=== PATIENT | female | born 1950 | race Caucasian/White ===

== ENCOUNTER → 2018-02-07 09:39 | Outpatient (CLI) | payer MEDICARE, SELFPAY | PROVIDERS: PCP Family Medicine; Visit Provider Orthopaedic Surgery | DX: M17.12 Unilateral primary osteoarthritis, left knee (principal) | CPT/HCPCS: 20610; 99214; J7325 ==

== ENCOUNTER 2018-02-19 15:28 | Emergency (ER) | payer MEDICARE, SELFPAY ==
[2018-02-19] VITALS (18 sets, daily range): BP systolic 123–148; BP diastolic 64–78; PULSE 56–69; RESP 13–18; TEMP 38.1; O2SAT 88–98
--- NOTE | 2018-02-19 15:57 | W.ED.GENAD ---
Discharge Plan Discharge Details Chief Complaint: CVA/TIA Clinical Impression: Facial tic Primary Care Provider: Marixa Kurtz ED Provider: Saravanan Buckley Disposition Patient Disposition: HOME Condition: Improving Home Meds and New Rx's Prescriptions: Continue fluoxetine 40 MG capsule 40 mg PO DAILY RF: 0 ondansetron HCl 4 MG tablet 4 mg PO DAILY PRNRF: 0 omeprazole 40 MG capsule,delayed release(DR/EC) 40 mg PO DAILY RF: 0 amlodipine 10 MG tablet 10 mg PO DAILY RF: 0 trazodone 150 MG tablet 150 mg PO HS PRNRF: 0 dronabinol [Marinol] 10 MG capsule 10 mg PO QID RF: 0 polyethylene glycol 3350 [Miralax] 119 GM powder 15 ml PO DAILY PRNRF: 0 oxycodone [OxyContin] 40 MG tablet extended release 12 hr 40 mg PO BID RF: 0 oxycodone 15 mg Tablet 15 mg PO TID PRN (Reason: Pain) RF: 0 Discharge Instructions Additional Instructions: Home to rest this evening. Small, frequent sips of fluids to maintain hydration. Please follow-up with neurology as planned. Continue your regular medications. Medical Decision Making MDM Narrative Medical decision making narrative: 67-year-old female with rhythmic contractions of the left side of her face and no other focal neurologic findings. She has a temperature of 38, vital signs are otherwise reassuring. Appears to be isolated to the muscle contracture. Differential diagnosis would include electrolyte normality, dehydration, low-grade infection such as UTI. Patient was given small amount of parenteral fluid, parenteral magnesium, diphenhydramine, Ativan. Following these medications she had resolution of her symptoms. Diagnostics: CBC and comprehensive panel reassuring. Urine without evidence of infection. Given that patient did not have true fever, that she is essentially completely resolved, do not feel further workup is indicated. She has prestanding follow-up with neurology as an outpatient. She is stable and appropriate for outpatient management. Lab Data Lab results reviewed: Yes I reviewed the patient's lab results. ECG Data Attestation: I personally reviewed and interpreted this ECG (s) as follows: Interpretation: Normal sinus rhythm, rate of 65, QRS is narrow, there is no ST segment HPI - General Adult General Date/Time Provider Initiated Documentation: 02/19/18 15:38. Limitations to Documentation: no limitations. Information obtained by: patient and family. History of Present Illness 67 year old F presents to the emergency department with the chief complaint of Facial tic, described as mild, Quality is described as other, and is localized to the face. and it has been intermittent. No relieving factors improve symptom(s), No exacerbating factors reported . Patient did receive the following treatments prior to arrival, none HPI Narrative: 67-year-old female presents from home with family 4 hours of the gradual onset of facial tremor. She states that she has had rhythmic left facial tic similar to previous. Denies any recent injury. She has not had a headache, fever, chills. There is no exacerbating or ameliorating factors. States this happened once previously and responded to Ativan. She has pre-standing neurology follow-up next month Related Data Home Medications Medication Instructions Recorded Confirmed amlodipine 10 mg PO DAILY 05/19/14 02/19/18 dronabinol [Marinol] 10 mg PO QID 05/19/14 02/19/18 fluoxetine 40 mg PO DAILY 05/19/14 02/19/18 omeprazole 40 mg PO DAILY 05/19/14 02/19/18 ondansetron HCl 4 mg PO DAILY PRN 05/19/14 02/19/18 polyethylene glycol 3350 [Miralax] 15 ml PO DAILY PRN 05/19/14 02/19/18 trazodone 150 mg PO HS PRN 05/19/14 02/19/18 oxycodone [OxyContin] 40 mg PO BID 05/29/15 02/19/18 oxycodone 15 mg PO TID PRN 02/19/18 02/19/18 Allergies Allergy/AdvReac Type Severity Reaction Status Date / Time morphine AdvReac Intermediate Psychosis Unverified 02/19/18 15:44 baclofen AdvReac Unknown Unverified 02/19/18 15:44 chlorthalidone AdvReac Unknown Unverified 02/19/18 15:44 codeine AdvReac Unknown Unverified 02/19/18 15:44 dextromethorphan AdvReac Unknown Unverified 02/19/18 15:44 gabapentin [From Neurontin] AdvReac Unknown Unverified 02/19/18 15:44 hydrochlorothiazide AdvReac Unknown Unverified 02/19/18 15:44 pregabalin AdvReac Unknown Dopey Unverified 02/19/18 15:44 General Stated Complaint: CVA/TIA LOLITA: 2 Review of Systems Review of Systems 8 systems reviewed, otherwise negative [facility] Social History Smoking/Tobacco Use Status: Never Exam Const General: cooperative, healthy appearing, comfortable and no acute distress Nutritional Appearance: average body habitus Orientation: awake and oriented x3 Other: Left sided facial tic with rhythmic contracture of muscles from chin to mosque. HENMT Head: normal to inspection, normocephalic and atraumatic Ears: hearing grossly normal bilaterally and external ears normal Eyes General: appearance normal, both eyes and all related structures Eyelids: eyelids normal Conjunctivae: conjunctivae normal Pupils: PERRL EOM: EOM intact bilaterally Neck Neck: normal visual inspection, full ROM and no lymphadenopathy Chest Chest: normal inspection of the chest Resp Effort & Inspection: normal respiratory effort and able to speak in complete sentences Auscultation: clear to auscultation bilaterally Cardio Rate: regular rate Rhythm: regular rhythm Skin General skin exam: no rashes or lesions noted Neuro General: alert, awake, oriented x3 and other (Rhythmic, intermittent muscular contraction of the left side of) Cranial Nerves: CN's II-XI intact bilaterally Cognition: normal cognition Speech: speech normal Extrem General: normal to inspection Psych Appearance: grossly normal Mental Status: mental status grossly normal Speech and Movement: speech and movement normal Mood: congruent mood Affect: normal affect Course Vital Signs Temperature 38.1 C H 02/19/18 15:37 Temperature 38.1 C H 02/19/18 15:37
--- NOTE | 2018-02-19 16:02 | ED.GENADUL_ITS ---
Discharge Plan Discharge Details Chief Complaint: CVA/TIA Clinical Impression: Facial tic Primary Care Provider: Marixa Kurtz ED Provider: Saravanan Buckley Disposition Patient Disposition: HOME Condition: Improving Home Meds and New Rx's Prescriptions: Continue fluoxetine 40 MG capsule 40 mg PO DAILY RF: 0 ondansetron HCl 4 MG tablet 4 mg PO DAILY PRNRF: 0 omeprazole 40 MG capsule,delayed release(DR/EC) 40 mg PO DAILY RF: 0 amlodipine 10 MG tablet 10 mg PO DAILY RF: 0 trazodone 150 MG tablet 150 mg PO HS PRNRF: 0 dronabinol [Marinol] 10 MG capsule 10 mg PO QID RF: 0 polyethylene glycol 3350 [Miralax] 119 GM powder 15 ml PO DAILY PRNRF: 0 oxycodone [OxyContin] 40 MG tablet extended release 12 hr 40 mg PO BID RF: 0 oxycodone 15 mg Tablet 15 mg PO TID PRN (Reason: Pain) RF: 0 Discharge Instructions Additional Instructions: Home to rest this evening. Small, frequent sips of fluids to maintain hydration. Please follow-up with neurology as planned. Continue your regular medications. Medical Decision Making MDM Narrative Medical decision making narrative: 67-year-old female with rhythmic contractions of the left side of her face and no other focal neurologic findings. She has a temperature of 38, vital signs are otherwise reassuring. Appears to be isolated to the muscle contracture. Differential diagnosis would include electrolyte normality, dehydration, low-grade infection such as UTI. Patient was given small amount of parenteral fluid, parenteral magnesium, diphenhydramine, Ativan. Following these medications she had resolution of her symptoms. Diagnostics: CBC and comprehensive panel reassuring. Urine without evidence of infection. Given that patient did not have true fever, that she is essentially completely resolved, do not feel further workup is indicated. She has prestanding follow- up with neurology as an outpatient. She is stable and appropriate for outpatient management. Lab Data Lab results reviewed: Yes I reviewed the patient's lab results. ECG Data Attestation: I personally reviewed and interpreted this ECG (s) as follows: Interpretation: Normal sinus rhythm, rate of 65, QRS is narrow, there is no ST segment HPI - General Adult General Date/Time Provider Initiated Documentation: 02/19/18 15:38 . Limitations to Documentation: no limitations . Information obtained by: patient and family . History of Present Illness 67 year old F presents to the emergency department with the chief complaint of Facial tic, described as mild, Quality is described as other, and is localized to the face. and it has been intermittent. No relieving factors improve symptom(s), No exacerbating factors reported . Patient did receive the following treatments prior to arrival, none HPI Narrative: 67-year-old female presents from home with family 4 hours of the gradual onset of facial tremor. She states that she has had rhythmic left facial tic similar to previous. Denies any recent injury. She has not had a headache, fever, chills. There is no exacerbating or ameliorating factors. States this happened once previously and responded to Ativan. She has pre- standing neurology follow-up next month Related Data Home Medications Medication Instructions Recorded Confirmed amlodipine 10 mg PO DAILY 05/19/14 02/19/18 dronabinol [Marinol] 10 mg PO QID 05/19/14 02/19/18 fluoxetine 40 mg PO DAILY 05/19/14 02/19/18 omeprazole 40 mg PO DAILY 05/19/14 02/19/18 ondansetron HCl 4 mg PO DAILY PRN 05/19/14 02/19/18 polyethylene glycol 3350 [Miralax] 15 ml PO DAILY PRN 05/19/14 02/19/18 trazodone 150 mg PO HS PRN 05/19/14 02/19/18 oxycodone [OxyContin] 40 mg PO BID 05/29/15 02/19/18 oxycodone 15 mg PO TID PRN 02/19/18 02/19/18 Allergies Allergy/AdvReac Type Severity Reaction Status Date / Time morphine AdvReac Intermediate Psychosis Unverified 02/19/18 15:44 baclofen AdvReac Unknown Unverified 02/19/18 15:44 chlorthalidone AdvReac Unknown Unverified 02/19/18 15:44 codeine AdvReac Unknown Unverified 02/19/18 15:44 dextromethorphan AdvReac Unknown Unverified 02/19/18 15:44 gabapentin [From Neurontin] AdvReac Unknown Unverified 02/19/18 15:44 hydrochlorothiazide AdvReac Unknown Unverified 02/19/18 15:44 pregabalin AdvReac Unknown Dopey Unverified 02/19/18 15:44 General Stated Complaint: CVA/TIA LOLITA: 2 Review of Systems Review of Systems 8 systems reviewed, otherwise negative [facility] Social History Smoking/Tobacco Use Status: Never Exam Const General: cooperative, healthy appearing, comfortable and no acute distress Nutritional Appearance: average body habitus Orientation: awake and oriented x3 Other: Left sided facial tic with rhythmic contracture of muscles from chin to mandaen. HENMT Head: normal to inspection, normocephalic and atraumatic Ears: hearing grossly normal bilaterally and external ears normal Eyes General: appearance normal, both eyes and all related structures Eyelids: eyelids normal Conjunctivae: conjunctivae normal Pupils: PERRL EOM: EOM intact bilaterally Neck Neck: normal visual inspection, full ROM and no lymphadenopathy Chest Chest: normal inspection of the chest Resp Effort & Inspection: normal respiratory effort and able to speak in complete sentences Auscultation: clear to auscultation bilaterally Cardio Rate: regular rate Rhythm: regular rhythm Skin General skin exam: no rashes or lesions noted Neuro General: alert, awake, oriented x3 and other (Rhythmic, intermittent muscular contraction of the left side of) Cranial Nerves: CN's II-XI intact bilaterally Cognition: normal cognition Speech: speech normal Extrem General: normal to inspection Psych Appearance: grossly normal Mental Status: mental status grossly normal Speech and Movement: speech and movement normal Mood: congruent mood Affect: normal affect Course Vital Signs Temperature 38.1 C H 02/19/18 15:37 Temperature 38.1 C H 02/19/18 15:37
[2018-02-19] MEDS: LORazepam 2 MG/ML VIAL 0.5 MG IVP (16:23)
[2018-02-19] MEDS: diphenhydrAMINE 50 MG/ML VIAL 12.5 MG IVP (16:24)
[2018-02-19] MEDS: MAGNESIUM SULFATE 1 GM/100 ML BAG IVPB (16:24)
[2018-02-19 17:12] LABS: Abs Immature Grans 0.02 k/cumm (0.0-0.09); Absolute Basophil Count 0.07 k/cumm (0.0-0.2); Absolute Eosinophil Count 0.06 k/cumm (0.0-0.7); Absolute Monocyte Count 0.82 k/cumm (0.11-0.7); Absolute Neutrophil Count 5.21 k/cumm (1.2-6.7); Basophils % 0.9; Eosinophils % 0.8; HCT 32.5 % (36.0-46.0); HGB 10.5 g/dL (12.0-15.5); Immature Grans % 0.3; Lymphocytes % 20.6; Mean Corp. HGB Concentration 32.3 g/dL (32.0-36.0); Mean Corpuscular Hemoglobin 28.9 pg (27.0-33.0); Mean Corpuscular Volume 89.5 fL (80-95); Mean Platelet Volume 9.6 fL (8.0-11.0); Monocytes % 10.5; Neutrophils % 66.9; Platelet Count 304 x1000/uL (130-400); RBC 3.63 m/cumm (4.00-5.20); RBC Distribution Width 14.7 % (11.7-14.6); White Blood Cell Count 7.78 k/cumm (4.4-10.8)
[2018-02-19 17:17] LABS: Bilirubin Negative (Negative); Blood Trace-lysed (Negative); Clarity Sl Cloudy; Glucose Negative (Negative); Ketones Negative (Negative); Leukocyte Esterase Negative (Negative); Nitrite Negative (Negative); Specific Gravity 1.015 (1.005-1.025); Urobilinogen 0.2 EU/dL (Up TO 0.2); pH 5.5 (5-8)
[2018-02-19 17:17] LABS: ALT 14 U/L (12-78); AST 13 U/L (15-37); Albumin 3.4 g/dL (3.4-5.0); Alkaline Phosphatase 75 U/L (46-116); Anion Gap 2.7 mmol/L (3-11); BUN 24 mg/dL (7-18); Bilirubin, Total 0.2 mg/dL (0.2-1.0); CO2 31.3 mmol/L (21.0-32.0); CREATININE 1.17 mg/dL (0.55-1.02); Calcium 8.8 mg/dL (8.5-10.1); Chloride 105 mmol/L (98-107); Estimated GFR 45.86 (mL/min/1.73m2); Glucose 95 mg/dL (70-100); Magnesium 1.8 mg/dL (1.8-2.4); Potassium 3.9 mmol/L (3.5-5.1); Sodium 139 mmol/L (136-145)
[2018-02-19 17:33] LABS: Bacteria Negative HPF (Negative); Epithelial Cells Moderate HPF (Negative); Other Cells Few Transitional (Negative); RBC 0-2 (0-2); WBC 0-2 HPF (0-5)
[2018-02-19 17:34] LABS: C & S Indicated? No; Casts Negative LPF (Negative); Crystals Few Amorphous HPF (Negative); Mucus Negative (Negative)
== END 2018-02-19 17:55 | disposition home or self-care (01) ==
LOC: ER 17:44
PROVIDERS: Emergency Provider Emergency Medicine; PCP Family Medicine
DX: F95.9 Tic disorder, unspecified (principal); E83.42 Hypomagnesemia
CPT/HCPCS: 36415; 80053; 93005; 96365; 96375; 99284; 81003; 81015; 83735; 85025; 93010; 99283; J1200; J2060; J3475

== ENCOUNTER → 2018-03-21 13:39 | Outpatient (BNVA) | payer MEDICARE, SELFPAY | PROVIDERS: Visit Provider Orthopaedic Surgery | DX: M17.12 Unilateral primary osteoarthritis, left knee (principal) | CPT/HCPCS: 99211; 99213 ==

== ENCOUNTER → 2018-08-08 13:25 | Outpatient (BNVA) | payer MEDICARE, SELFPAY | PROVIDERS: PCP Family Medicine; Referring Provider Family Medicine; Visit Provider Orthopaedic Surgery | DX: M17.11 Unilateral primary osteoarthritis, right knee (principal); M17.12 Unilateral primary osteoarthritis, left knee | CPT/HCPCS: 20610; 99211; 99213; J7325 ==

== ENCOUNTER → 2019-02-11 10:51 | Outpatient (BNVA) | payer MEDICARE, SELFPAY | PROVIDERS: PCP Family Medicine; Referring Provider Family Medicine; Visit Provider Orthopaedic Surgery | DX: M17.11 Unilateral primary osteoarthritis, right knee (principal); M17.12 Unilateral primary osteoarthritis, left knee | CPT/HCPCS: 20610; 99211; 99213; J7325 ==

== ENCOUNTER 2019-03-26 01:26 | Outpatient (CLI) | payer MEDICARE, SELFPAY ==
--- NOTE | 2019-03-26 15:32 | DI.MAMMO_ITS ---
EXAM: MAMMO SCREENING CLINICAL HISTORY: SCREENING, Z12.31. TECHNIQUE: Mammograms were interpreted according to the usual protocol including computer analysis w Prescreen system, tomosynthesis and C-view imaging. FINDINGS: The breasts are of moderate density with fairly symmetrical distribution of fibroglandular tissue. No dominant mass or clumped microcalcification is identified in either breast. Current examination is c ompared with previous examinations including April 2017 and there has been no gross interval velazco e in appearance in comparison with previous studies. IMPRESSION: No specific evidence of malignancy at this time. Routine screening examinations are suggested at year ly intervals due to the family history of breast carcinoma. Category 1. Breast density, category B. BI-RADS Cat 1 - Negative. Breast Density - Category B - Scattered areas of fibroglandular density.
== END 2019-03-26 01:46 ==
PROVIDERS: PCP Family Medicine; Visit Provider Family Medicine
DX: Z12.31 Encounter for screening mammogram for malignant neoplasm of breast (principal); Z80.3 Family history of malignant neoplasm of breast
CPT/HCPCS: 77063; 77067

== ENCOUNTER 2019-07-10 17:04 | Outpatient (REF) | payer MEDICARE, SELFPAY ==
[2019-07-10 21:07] LABS: Abs Immature Grans 0.01 k/cumm (0.0-0.09); Absolute Basophil Count 0.05 k/cumm (0.0-0.2); Absolute Eosinophil Count 0.08 k/cumm (0.0-0.7); Absolute Lymphocyte Count 1.07 k/cumm (1.2-3.4); Absolute Monocyte Count 0.58 k/cumm (0.11-0.7); Absolute Neutrophil Count 2.95 k/cumm (1.2-6.7); Basophils % 1.1; Eosinophils % 1.7; HCT 35.2 % (36.0-46.0); HGB 11.2 g/dL (12.0-15.5); Immature Grans % 0.2 %; Lymphocytes % 22.6; Mean Corp. HGB Concentration 31.8 g/dL (32.0-36.0); Mean Corpuscular Hemoglobin 27.9 pg (27.0-33.0); Mean Corpuscular Volume 87.8 fL (80-95); Mean Platelet Volume 10.2 fL (8.0-11.0); Monocytes % 12.2; Neutrophils % 62.2; Platelet Count 354 x1000/uL (130-400); RBC 4.01 m/cumm (4.00-5.20); RBC Distribution Width 14.1 % (11.7-14.6); White Blood Cell Count 4.74 k/cumm (4.4-10.8)
[2019-07-10 21:28] LABS: ALT 12 U/L (14-59); AST 12 U/L (15-37); Albumin 3.5 g/dL (3.4-5.0); Alkaline Phosphatase 62 U/L (46-116); Anion Gap 10.1 mmol/L (3-11); BUN 17 mg/dL (7-18); Bilirubin, Total 0.3 mg/dL (0.2-1.0); CO2 27.9 mmol/L (21.0-32.0); CREATININE 1.23 mg/dL (0.55-1.02); Calcium 8.9 mg/dL (8.5-10.1); Chloride 104 mmol/L (98-107); Estimated GFR 43.17 (mL/min/1.73m2); Glucose 135 mg/dL (74-106); Potassium 4.1 mmol/L (3.5-5.1); Sodium 142 mmol/L (136-145); Total Protein 7.3 g/dL (6.4-8.2)
== END 2019-07-10 17:24 ==
LOC: NCHCN 17:04
PROVIDERS: PCP Family Medicine; Visit Provider Family Medicine
DX: R19.02 Left upper quadrant abdominal swelling, mass and lump (principal)
CPT/HCPCS: 80053; 85025

== ENCOUNTER 2019-08-04 01:59 | Outpatient (CLI) | payer MEDICARE, SELFPAY ==
[2019-08-04] MEDS: Breeza Beverage 473 ML BTL PO ×2 (11:36→11:37)
[2019-08-04] MEDS: Omnipaque 350 MG/ML 50 ML BTL PO (11:36)
[2019-08-04 12:17] LABS: CREATININE 1.18 mg/dL (0.55-1.02); Estimated GFR 45.28 (mL/min/1.73m2)
[2019-08-04] MEDS: Omnipaque 350 MG/ML 100 ML BTL IJ (13:09)
[2019-08-04] MEDS: Normal Saline - Diluent 50 ML VIAL IV (13:14)
[2019-08-04] MEDS: Normal Saline Flush 10 ML SYR IVP (13:15)
--- NOTE | 2019-08-04 13:19 | DI.CT_ITS ---
EXAM: CT ABDOMEN PELVIS W CLINICAL HISTORY: LUQ ABD MASS, R19.02 TECHNIQUE: Imaging Protocol: Axial computed tomography images with coronal and sagittal reformatted images were created and reviewed CONTRAST MATERIAL: Intravenous: Omnipaque 350 Contrast volume:100 mL Oral: Yes COMPARISON: No exams were available for comparison FINDINGS: ABDOMEN: Lung Bases: Dependent atelectasis. Liver: Normal density. Tiny hypodensity in the dome of the liver. It is too small for further charac terization but likely reflects a small cyst. Portal, Superior Mesenteric, and Splenic Veins: Unremarkable. Gallbladder and Biliary Tract: Status post cholecystectomy. Intra and extrahepatic biliary ductal di latation. This likely reflects post cholecystectomy changes. Pancreas: Normal density, no abnormal calcifications or inflammatory process. Spleen: Normal. Adrenals: No masses seen. Kidneys: Normal size, contour and axis. No radiodense stones or obstructive uropathy. Tiny hypodensit ies in the left kidney. They are too small for further characterization but likely reflect small cys ts. No suspicious renal mass. Abdominal Aorta: Abdominal portion non-dilated. Atherosclerosis. Bowel: No obstruction or bowel wall thickening. There is a hiatal hernia present. There is thickeni ng of the wall of the bowel in the hernia. This is nonspecific. Upper GI or upper endoscopy should be considered for further evaluation. No evidence of acute appendicitis. Large amount of stool thro ughout the colon suggesting constipation. Colonic diverticulosis but no evidence of acute diverticul itis. Peritoneal Cavity: No ascites, collection or mesenteric inflammatory response. Lymph Nodes: Within normal limits. Bones: Degenerative changes. Left convex scoliosis of the lumbar spine. Soft Tissues: Unremarkable. PELVIS: Bladder: Symmetric distention, no gross wall thickening. Reproductive Organs: Unremarkable as visualized. Lymph Nodes: Within normal limits. Bones: Degenerative changes. IMPRESSION: 1. No evidence of abdominal or pelvic mass. 2. Intra and extrahepatic biliary ductal dilatation. This likely reflects post cholecystectomy velazco e. 3. Hiatal hernia. Thickening of the wall of the herniated stomach. An inflammatory/infectious proce ss should be excluded. Neoplasm cannot be excluded. Upper endoscopy or upper GI should be considere d for further evaluation. 4. Colonic diverticulosis but no evidence of acute diverticulitis. DATA REPOSITORY: All CT scans at this facility are submitted to the National Radiology Data Registry (NRDR) Dose Index Registry (DIR) with the [employer] (A[employer]). RADIATION OPTIMIZATION: All CT scans at this facility use at least one of these dose optimization te chniques: automated exposure control; mA and/or kV adjustment per patient size (includes targeted exa ms where dose is matched to clinical indication); or iterative reconstruction.
== END 2019-08-04 02:19 ==
PROVIDERS: PCP Family Medicine; Visit Provider Family Medicine
DX: R19.02 Left upper quadrant abdominal swelling, mass and lump (principal); J98.11 Atelectasis; K76.89 Other specified diseases of liver; N28.1 Cyst of kidney, acquired; K44.9 Diaphragmatic hernia without obstruction or gangrene; Z90.49 Acquired absence of other specified parts of digestive tract; Z13.89 Encounter for screening for other disorder
CPT/HCPCS: 74177; 82565; J3490; Q9967

== ENCOUNTER 2020-01-05 17:43 | Emergency (ER) | payer MEDICARE, SELFPAY ==
[2020-01-05] VITALS (19 sets, daily range): BP systolic 142–167; BP diastolic 64–98; PULSE 50–79; RESP 10–20; TEMP 36.9–37; O2SAT 95–100
[2020-01-05] MEDS: diphenhydrAMINE 50 MG/ML VIAL 12.5 MG IVP (18:16)
[2020-01-05] MEDS: LORazepam 2 MG/ML VIAL 0.5 MG IVP (18:19)
[2020-01-05] MEDS: MAGNESIUM SULFATE 1 GM/100 ML BAG IVPB (18:19)
[2020-01-05] MEDS: Normal Saline 500 ML IV (18:19)
[2020-01-05 18:32] LABS: Abs Immature Grans 0.03 k/cumm (0.0-0.09); Absolute Basophil Count 0.03 k/cumm (0.0-0.2); Absolute Eosinophil Count 0.09 k/cumm (0.0-0.7); Absolute Lymphocyte Count 1.74 k/cumm (1.2-3.4); Absolute Monocyte Count 0.67 k/cumm (0.11-0.7); Absolute Neutrophil Count 5.45 k/cumm (1.2-6.7); Basophils % 0.4; Eosinophils % 1.1; HCT 32.6 % (36.0-46.0); HGB 10.6 g/dL (12.0-15.5); Immature Grans % 0.4 %; Lymphocytes % 21.7; Mean Corp. HGB Concentration 32.5 g/dL (32.0-36.0); Mean Corpuscular Hemoglobin 28.6 pg (27.0-33.0); Mean Corpuscular Volume 88.1 fL (80-95); Mean Platelet Volume 9.4 fL (8.0-11.0); Monocytes % 8.4; Platelet Count 355 x1000/uL (130-400); RBC Distribution Width 13.8 % (11.7-14.6); White Blood Cell Count 8.01 k/cumm (4.4-10.8)
--- NOTE | 2020-01-05 18:37 | W.ED.GENAD ---
Discharge Plan Disposition Patient Disposition: HOME Condition: Good Discharge Details Chief Complaint: Seizure Clinical Impression: Tic douloureux Primary Care Provider: Marixa Kurtz ED Provider: Los Carter Home Meds and New Rx's Prescriptions: New lorazepam [Ativan] 1 mg tablet 1 mg PO DAILY PRNQty: 3 RF: 0 Continued fluoxetine 40 MG capsule 80 mg PO DAILY RF: 0 ondansetron HCl 4 MG tablet 4 mg PO DAILY PRNRF: 0 omeprazole 40 MG capsule,delayed release(DR/EC) 40 mg PO DAILY RF: 0 amlodipine 10 MG tablet 10 mg PO DAILY RF: 0 trazodone 150 MG tablet 150 mg PO HS RF: 0 polyethylene glycol 3350 [Miralax] 119 GM powder 15 ml PO DAILY PRNRF: 0 OxyContin 40 MG tablet extended release 12 hr 40 mg PO BID RF: 0 oxycodone 15 mg Tablet 15 mg PO TID PRN (Reason: Pain) RF: 0 dronabinol 5 mg capsule 5 mg PO .UP TO 5 TABS A DAY RF: 0 aspirin [Aspirin Low Dose] 81 mg Tablet,Delayed Release (Dr/Ec) 81 mg PO DAILY RF: 0 vitamin B complex Tablet 1 tab PO DAILY RF: 0 oxybutynin chloride 5 mg tablet 5 mg PO DAILY RF: 0 lactulose 10 gram/15 mL solution 15 ml PO DAILY PRN PRNRF: 0 cholecalciferol (vitamin D3) [Vitamin D3] 25 mcg (1,000 unit) Tablet 25 mcg PO DAILY RF: 0 Narcan 4 mg/actuation [place],Non-Aerosol 4 mg INTRANASAL Q3M PRNRF: 0 Discharge Instructions Instructions: Tic Disorder (ED) Additional Instructions: At this time your symptoms have resolved with the Ativan. Please take this only as necessary for severe symptoms. Please follow-up closely with your neurologist at [facility]. If you notice any worsening of your symptoms, or any new symptoms such as vomiting, diarrhea, fever, chills, shortness of breath, chest pain, numbness, weakness, or fainting , please return immediately to the emergency department for reevaluation. Please follow up with your primary care provider as soon as possible for reassessment and reevaluation. As always, it was a pleasure participating in your medical care today. Referrals: Marixa Kurtz [Primary Care Provider] - Discharge Data Discharge Date/Time-TO BE ENTERED AT DEPARTURE: 01/05/20 21:15 Medical Decision Making <Tahmina Bell MD - Last Filed: 01/14/20 10:04> Tegan Ashton is a 69-year-old woman who presented to the emergency department for what she describes a seizure activity since yesterday morning. On exam patient is well and nontoxic-appearing. She has what appears to be facial muscle twitching that is worse during speech. Occurs intermittently last for 5 to 10 seconds at a time. Otherwise nonfocal neurologic exam. Concern for metabolic/electrolyte derangement causing muscle twitching, other muscle fasciculation. Doubt partial seizure activity. Exam/history is not consistent with meningitis, sepsis, cerebrovascular accident, other acute emergent intracranial process including life-threatening seizure. Records reviewed from [facility] with most recent neurology note 2017, noting patient with normal EEG at that time, note states doubt seizure activity. Neurology note from Dr. Liz does state that if patient were to present to [facility] again with the symptoms, he would like to have her transferred to the [facility] emergency department so that symptoms could be witnessed firsthand as they were not witnessed in his office. Plan for screening labs, IV medication as was given successfully in the past, neurology consultation with [facility]. I discussed with patient that neurology had requested she be sent to the emergency department for evaluation in prior records, and she stated that she did not want to be transferred or to go to the [facility] emergency department at this time. She requested that I send a video to neurology at [facility]. I did discuss with patient that I had no mechanism to do this other than to use my personal phone, and discussed privacy concerns taking a recording in this manner. Patient consented to this video taken and being sent to neurology. Approximately 15-second video was taken. I did send this to neurology at [facility], who stated that video transmission was of poor quality and could not be used for further evaluation. Video was then deleted from my personal phone. Patient again declines transfer to [facility], states that she is feeling significantly improved after medication, however she does state that her tic is still present and would like symptoms to be fully resolved before discharge. On reassessment she does have continued initial tic, somewhat improved from her initial presentation. Plan for 1 mg IV Ativan, reassessment. Patient was signed out to Dr. Carter at time of shift change with reassessment pending. Medical Records Medical records reviewed: Yes I reviewed the patient's medical records. Lab Data Lab results reviewed: Yes I reviewed the patient's lab results. Labs: Laboratory Tests Range/Units 01/05/20 01/05/20 01/05/20 18:00 18:00 18:00 WBC (4.4-10.8) k/cumm 8.01 RBC (4.00-5.20) m/cumm 3.70 L Hgb (12.0-15.5) g/dL 10.6 L Hct (36.0-46.0) % 32.6 L MCV (80-95) fL 88.1 MCH (27.0-33.0) pg 28.6 MCHC (32.0-36.0) g/dL 32.5 RDW (11.7-14.6) % 13.8 Plt Count (130-400) x1000/uL 355 MPV (8.0-11.0) fL 9.4 Immature Gran % % 0.4 Neutrophils % 68.0 Lymphocytes % 21.7 Monocytes % 8.4 Eosinophils % 1.1 Basophils % 0.4 Absolute Neutrophils (1.2-6.7) k/cumm 5.45 Absolute Lymphocytes (1.2-3.4) k/cumm 1.74 Absolute Monocytes (0.11-0.7) k/cumm 0.67 Absolute Eosinophils (0.0-0.7) k/cumm 0.09 Absolute Basophils (0.0-0.2) k/cumm 0.03 Sodium (136-145) mmol/L 141 Potassium (3.5-5.1) mmol/L 4.0 Chloride (98-107) mmol/L 103 Carbon Dioxide (21.0-32.0) mmol/L 28.2 Anion Gap (3-11) mmol/L 9.8 BUN (7-18) mg/dL 29 H Creatinine (0.55-1.02) mg/dL 1.23 H Estimated GFR/1.73 m2 (mL/min/1.73m2) 43.04 Glucose (74-106) mg/dL 103 Calcium (8.5-10.1) mg/dL 9.0 Magnesium (1.8-2.4) mg/dL 2.0 Total Bilirubin (0.2-1.0) mg/dL 0.3 AST (15-37) U/L 16 ALT (14-59) U/L 18 Alkaline Phosphatase (46-116) U/L 81 Total Protein (6.4-8.2) g/dL 8.0 Albumin (3.4-5.0) g/dL 3.3 L TSH (0.36-3.74) uIU/mL 1.80 <Los Carter DO - Last Filed: 01/05/20 21:07> Case was signed out to me by my colleague Dr. Tahmina Bell. Please refer to her HPI, physical exam assessment and plan. Case is signed out pending reassessment after Ativan administration. Upon reassessment the patient has complete resolution of her symptoms, she feels well and would like to go home. I do feel that it is reasonable to send her home with a small dose/prescription of Ativan to help her if her symptoms recur. She certainly does need outpatient follow-up with neurology. Encouraged her prompt reassessment with her neurologist at [facility]. Discussed red flags which to return. Repeat neurologic exam shows no focal neurologic deficits or concerning etiologies requiring emergent imaging or any further work-up. Symptoms inconsistent with life-threatening seizure. Discussed red flags which to return. I have extensively reviewed the treatment plan and discharge instructions with the patient. I have addressed all patient concerns at this time. The patient was made aware of what symptoms to monitor for that would warrant a return to the emergency department. Discussed the plan with the patient, they demonstrate verbal understanding and agreement with our assessment and plan at this time. HPI <Tahmina Bell MD - Last Filed: 01/14/20 10:04> General Mode of arrival: ambulatory. Date/Time Provider Initiated Documentation: 01/05/20 17:56. Limitations to Documentation: no limitations. Information obtained by: patient, RN notes reviewed and old records reviewed. HPI Narrative: Tegan Ashton is a 69-year-old woman with a history of CVA 2002, fibromyalgia presenting to the emergency department with what she reports is seizures. Patient reports that she called her PCP for this, who told her over the phone to come to the emergency department. Patient reports that beginning yesterday morning, she has had twitching of her face that is uncontrollable. Patient reports that this occurs intermittently throughout the day, but happens at least every few minutes. Patient reports that she had the same symptoms in the past, which she was seen here for. Patient reports that she got a cocktail of medications that made her symptoms go away immediately. Per record review, this was likely an encounter 03/07 when she was seen for facial tics and was treated with IV Ativan 0.5 mg, IV Benadryl 12.5 mg, IV magnesium 1 g, and IV fluid hydration. Patient reports that she sees a neurologist at [facility] for these issues, but has not prescribed any antiseizure medication. Patient reports that her neurologist has given her muscle relaxants in the past for symptoms. She reports that muscle relaxants do not tend to work. Patient reports that she has been eating and drinking as usual. She denies any recent illness. She denies any unusual activities or events over the past week or so. She denies pain, fever, shortness of breath, cough, vomiting, diarrhea, numbness, weakness. Related Data Home Medications Medication Instructions Recorded Confirmed amlodipine 10 mg PO DAILY 05/19/14 01/05/20 fluoxetine 80 mg PO DAILY 05/19/14 01/05/20 omeprazole 40 mg PO DAILY 05/19/14 01/05/20 ondansetron HCl 4 mg PO DAILY PRN 05/19/14 01/05/20 polyethylene glycol 3350 [Miralax] 15 ml PO DAILY PRN 05/19/14 01/05/20 trazodone 150 mg PO HS 05/19/14 01/05/20 OxyContin 40 mg PO BID 05/29/15 01/05/20 oxycodone 15 mg PO TID PRN 02/19/18 01/05/20 Narcan 4 mg INTRANASAL Q3M PRN 01/05/20 01/05/20 aspirin [Aspirin Low Dose] 81 mg PO DAILY 01/05/20 01/05/20 cholecalciferol (vitamin D3) 25 mcg PO DAILY 01/05/20 01/05/20 [Vitamin D3] dronabinol 5 mg PO .UP TO 5 TABS A DAY 01/05/20 01/05/20 lactulose 15 ml PO DAILY PRN PRN 01/05/20 01/05/20 lorazepam [Ativan] 1 mg PO DAILY PRN #3 tab 01/05/20 oxybutynin chloride 5 mg PO DAILY 01/05/20 01/05/20 vitamin B complex 1 tab PO DAILY 01/05/20 01/05/20 Previous Rx's Medication Instructions Recorded lorazepam [Ativan] 1 mg PO DAILY PRN #3 tab 01/05/20 Allergies Allergy/AdvReac Type Severity Reaction Status Date / Time morphine AdvReac Intermediate Psychosis Unverified 01/05/20 17:57 baclofen AdvReac Unknown Unverified 01/05/20 17:57 chlorthalidone AdvReac Unknown Unverified 01/05/20 17:57 codeine AdvReac Unknown Unverified 01/05/20 17:57 dextromethorphan AdvReac Unknown Unverified 01/05/20 17:57 gabapentin [From Neurontin] AdvReac Unknown Unverified 01/05/20 17:57 hydrochlorothiazide AdvReac Unknown Unverified 01/05/20 17:57 pregabalin AdvReac Unknown Dopey Unverified 01/05/20 17:57 General Stated Complaint: Seizure LOLITA: 2 Review of Systems <Tahmina Bell MD - Last Filed: 01/14/20 10:04> Narrative: Constitutional: denies fevers Eyes: denies eye pain ENT: denies ear pain, dental pain, sore throat Cardiovascular: denies chest pain Respiratory: denies SOB, cough GI: denies abdominal pain, vomiting, diarrhea : denies flank pain MSK: denies back pain, neck pain, arthralgias, myalgias Skin: denies rash Neuro: denies headaches, numbness, weakness, reports facial twitching as per HPI PFSH <Tahmina Bell MD - Last Filed: 01/14/20 10:04> Social History Smoking/Tobacco Use Status: Never Alcohol Intake: never Drug use: Never Do you feel safe at home: Yes Do you feel safe in your relationship?: Yes Exam <Tahmina Bell MD - Last Filed: 01/14/20 10:04> Narrative Exam Narrative: Constitutional: well and [id number], pleasant, notable facial muscle twitching, otherwise conversing normally HENT: head atraumatic/normocephalic/normal inspection, mucous membranes moist Eyes: conjunctiva normal, sclera normal, pupils 3mm b/l Neck: no stridor, normal ROM, trachea midline Chest: normal inspection Resp: normal work of breathing, LCTAB Cardio: normal rate, normal rhythm, no murmur appreciated GI: abdomen soft, non-tender, non-distended Back: normal inspection, no rash Skin: warm, dry, normal color, no rash Neuro: alert, not altered, cranial nerves II through XII intact, motor 5 out of 5 throughout, normal tone, apparent facial muscle twitching current frequently during encounter and seemingly worsened during speaking Ext: no edema Psych: normal mood, normal affect, normal behavior Course <Tahmina Bell MD - Last Filed: 01/14/20 10:04> Vital Signs Vital signs: Vital Signs Temperature 36.9 C 01/05/20 17:49 Pulse 63 01/05/20 17:49 Respiratory Rate 16 01/05/20 17:49 Blood Pressure 150/98 H 01/05/20 17:49 Pulse Oximetry 98 01/05/20 17:49 Temperature 36.9 C 01/05/20 17:49 Temperature Source Temporal Artery Scan 01/05/20 17:49 Pulse 63 01/05/20 17:49 Respiratory Rate 16 01/05/20 17:49 Respiratory Effort 01/05/20 18:23 Respiratory Depth Normal 01/05/20 18:23 Blood Pressure 150/98 H 01/05/20 17:49 Blood Pressure Position Supine 01/05/20 17:49 Pulse Oximetry 98 01/05/20 17:49 Oxygen Delivery Method Room Air 01/05/20 17:49 Oxygen Flow Rate 0 01/05/20 17:49 Pain Level 7 01/05/20 17:49 Lab/Test Results Lab/Test Results: Laboratory Tests Range/Units 01/05/20 18:00 WBC (4.4-10.8) k/cumm 8.01 RBC (4.00-5.20) m/cumm 3.70 L Hgb (12.0-15.5) g/dL 10.6 L Hct (36.0-46.0) % 32.6 L MCV (80-95) fL 88.1 MCH (27.0-33.0) pg 28.6 MCHC (32.0-36.0) g/dL 32.5 RDW (11.7-14.6) % 13.8 Plt Count (130-400) x1000/uL 355 MPV (8.0-11.0) fL 9.4 Immature Gran % % 0.4 Neutrophils % 68.0 Lymphocytes % 21.7 Monocytes % 8.4 Eosinophils % 1.1 Basophils % 0.4 Absolute Neutrophils (1.2-6.7) k/cumm 5.45 Absolute Lymphocytes (1.2-3.4) k/cumm 1.74 Absolute Monocytes (0.11-0.7) k/cumm 0.67 Absolute Eosinophils (0.0-0.7) k/cumm 0.09 Absolute Basophils (0.0-0.2) k/cumm 0.03 Sign Out <Tahmina Bell MD - Last Filed: 01/14/20 10:04> Sign Out Data: Sign Out Comment: Patient signed out to Dr. Carter at time of shift change with reassessment pending Last updated by Tamhina Bell MD at 01/05/20 20:28
[2020-01-05 19:00] LABS: ALT 18 U/L (14-59); AST 16 U/L (15-37); Albumin 3.3 g/dL (3.4-5.0); Alkaline Phosphatase 81 U/L (46-116); Anion Gap 9.8 mmol/L (3-11); BUN 29 mg/dL (7-18); Bilirubin, Total 0.3 mg/dL (0.2-1.0); CO2 28.2 mmol/L (21.0-32.0); CREATININE 1.23 mg/dL (0.55-1.02); Chloride 103 mmol/L (98-107); Estimated GFR 43.04 (mL/min/1.73m2); Glucose 103 mg/dL (74-106); Sodium 141 mmol/L (136-145)
--- NOTE | 2020-01-05 19:25 | NUR.NOTE ---
pt transferd to the commode. she states that she feels much better and that he moulth is not flopping all over sno twitching noted Nursing Note:
[2020-01-05] MEDS: LORazepam 2 MG/ML VIAL 1 MG IVP (20:31)
[2020-01-05] MEDS: LORazepam 1 MG TAB 2 MG PO (21:30)
== END 2020-01-05 21:15 | disposition home or self-care (01) ==
PROVIDERS: Student in an Organized Health Care Education/Training Program; Emergency Provider Student in an Organized Health Care Education/Training Program; PCP Family Medicine
DX: G50.0 Trigeminal neuralgia (principal); R25.3 Fasciculation
CPT/HCPCS: 80053; 96361; 96365; 96366; 96375; 96376; 99285; 83735; 84443; 85025; 99284; J1200; J2060; J3475

== ENCOUNTER 2020-02-23 10:01 | Emergency (ER) | payer MEDICARE, SELFPAY ==
[2020-02-23 10:16] VITALS: BP 150/99; PULSE 58; RESP 18; TEMP 37; O2SAT 98
[2020-02-23 10:20] VITALS: RESP 18
[2020-02-23 11:16] LABS: Abs Immature Grans 0.02 10^3/uL (0.0-0.06); Absolute Basophil Count 0.04 10^3/uL (0.0-0.2); Absolute Eosinophil Count 0.08 10^3/uL (0.0-0.7); Absolute Lymphocyte Count 1.91 10^3/uL (1.2-3.4); Basophils % 0.6; Eosinophils % 1.2; HCT 34.6 % (36.0-46.0); HGB 11.2 g/dL (11.2-15.7); Immature Grans % 0.3; Lymphocytes % 28.7; MCH 28.4 pg (27.0-33.0); MCHC 32.4 % (32.0-36.0); MCV 87.6 fL (80-95); MPV 9.5 fL (8.0-11.0); Neutrophils % 57.2; Nucleated RBC 0 %; Platelet Count 297 10^3/uL (130-400); RBC 3.95 10^6/uL (3.93-5.22); RDW 13.5 % (11.7-14.6); RDW-SD 43.6 fL; WBC 6.65 10^3/uL (4.4-10.8)
[2020-02-23] MEDS: LORazepam 2 MG/ML VIAL 1 MG IVP (11:16)
[2020-02-23] MEDS: Normal Saline Flush 10 ML SYR IVP (11:17)
[2020-02-23 11:28] LABS: ALT 15 U/L (14-59); AST 15 U/L (15-37); Albumin 3.5 g/dL (3.4-5.0); Alkaline Phosphatase 76 U/L (46-116); Anion Gap 5.8 mmol/L (3-11); BUN 25 mg/dL (7-18); Bilirubin, Total 0.3 mg/dL (0.2-1.0); CO2 31.2 mmol/L (21.0-32.0); CREATININE 1.19 mg/dL (0.55-1.02); Calcium 9.1 mg/dL (8.5-10.1); Chloride 102 mmol/L (98-107); Estimated GFR 44.72 (mL/min/1.73m2); Glucose 90 mg/dL (74-106); Potassium 3.5 mmol/L (3.5-5.1); Sodium 139 mmol/L (136-145)
--- NOTE | 2020-02-23 11:48 | ED.GENADUL_ITS ---
Discharge Plan Disposition Patient Disposition: HOME Condition: Stable Discharge Details Clinical Impression: Facial tic Primary Care Provider: Marixa Kurtz ED Provider: Tahmina Bell Home Meds and New Rx's Prescriptions: New lorazepam [Ativan] 1 mg tablet 1 mg PO DAILY PRNQty: 3 RF: 0 Discontinued lorazepam [Ativan] 1 mg tablet 1 mg PO DAILY PRNQty: 3 RF: 0 No Action fluoxetine 40 MG capsule 80 mg PO DAILY RF: 0 ondansetron HCl 4 MG tablet 4 mg PO DAILY PRNRF: 0 omeprazole 40 MG capsule,delayed release(DR/EC) 40 mg PO DAILY RF: 0 amlodipine 10 MG tablet 10 mg PO DAILY RF: 0 trazodone 150 MG tablet 150 mg PO HS RF: 0 polyethylene glycol 3350 [Miralax] 119 GM powder 15 ml PO DAILY PRNRF: 0 OxyContin 40 MG tablet extended release 12 hr 40 mg PO BID RF: 0 oxycodone 15 mg Tablet 15 mg PO TID PRN (Reason: Pain) RF: 0 dronabinol 5 mg capsule 5 mg PO .UP TO 5 TABS A DAY RF: 0 aspirin [Aspirin Low Dose] 81 mg Tablet,Delayed Release (Dr/Ec) 81 mg PO DAILY RF: 0 vitamin B complex Tablet 1 tab PO DAILY RF: 0 oxybutynin chloride 5 mg tablet 5 mg PO DAILY RF: 0 lactulose 10 gram/15 mL solution 15 ml PO DAILY PRN PRNRF: 0 cholecalciferol (vitamin D3) [Vitamin D3] 25 mcg (1,000 unit) Tablet 25 mcg PO DAILY RF: 0 Narcan 4 mg/actuation [place],Non-Aerosol 4 mg INTRANASAL Q3M PRNRF: 0 Discharge Instructions Instructions: Lorazepam (By mouth) Additional Instructions: Please return immediately to the emergency department if you develop any new or worsening symptoms, if your condition does not improve as expected, or if you become otherwise concerned. It is extremely important that you call soon as possible to make an appointment to be seen in follow-up for this visit by your primary care doctor and your neurologist as we discussed. You are being prescribed Ativan today to take at home. You are also prescribed opiate pain medications. Taking Ativan with opiate pain medications can cause respiratory depression and . Please do not take Ativan within 6 hours of taking an opiate pain medication. Referrals: Marixa Kurtz [Primary Care Provider] - Discharge Data Discharge Date/Time-TO BE ENTERED AT DEPARTURE: 02/23/20 12:56 Medical Decision Making Tegan Ashton is a 69 y/o woman who presented to the emergency department with recurrence of chronic intermittent facial tic for which whse has been [place] [facility] [place] Pt reports that ativan works to improve symptoms and presented here to receive med. On exam Pt is well and non-toxic appearing with facial tic present, unchanged from her last presentation to this ED for same. Concern for possible metabolic/lyte derangement. Plan for screening labs, IV ativan. Exam/hx not c/w meningitis, sepsis, CVA, subarachnoid hemorrhage, other acute emergent life-threatening pathology. Labs non-diagnostic. Pt reports resolution of symptoms after ativan, requests d/c to home. I had a lengthy discussion with patient regarding importance of presenting to [facility] emergency department if symptoms should present in exactly the same manner, discussed that patient should present to the closest emergency department for any new, unusual, or worsening symptoms. Also discussed with patient safe Ativan use given that she does have opiates prescribed for home pain control. Pt verblaized understanding. I had a lengthy discussion with Patient regarding return to emergency department precautions, home care, and importance of outpatient follow-up. Pt verbalizes understanding of the plan and is amenable. Patient discharged to home with clear plan for outpatient follow-up. All questions were answered. Disposition decision was made weighing the risks and benefits of hospitalization versus outpatient treatment, the risk for further decompensation, and the patient's wishes. Medical Records Medical records reviewed: Yes I reviewed the patient's medical records. Lab Data Lab results reviewed: Yes I reviewed the patient's lab results. Labs: Laboratory Tests Range/Units 02/23/20 02/23/20 11:04 11:04 WBC (4.4-10.8) 10^3/uL 6.65 RBC (3.93-5.22) 10^6/uL 3.95 Hgb (11.2-15.7) g/dL 11.2 Hct (36.0-46.0) % 34.6 L MCV (80-95) fL 87.6 MCH (27.0-33.0) pg 28.4 MCHC (32.0-36.0) % 32.4 RDW (11.7-14.6) % 13.5 Plt Count (130-400) 10^3/uL 297 MPV (8.0-11.0) fL 9.5 Immature Gran % 0.3 Neutrophils % 57.2 Lymphocytes % 28.7 Monocytes % 12.0 Eosinophils % 1.2 Basophils % 0.6 Nucleated RBC % % 0 Absolute Neutrophils (1.2-6.7) 10^3/uL 3.80 Absolute Lymphocytes (1.2-3.4) 10^3/uL 1.91 Absolute Monocytes (0.1-0.8) 10^3/uL 0.80 Absolute Eosinophils (0.0-0.7) 10^3/uL 0.08 Absolute Basophils (0.0-0.2) 10^3/uL 0.04 Sodium (136-145) mmol/L 139 Potassium (3.5-5.1) mmol/L 3.5 Chloride (98-107) mmol/L 102 Carbon Dioxide (21.0-32.0) mmol/L 31.2 Anion Gap (3-11) mmol/L 5.8 BUN (7-18) mg/dL 25 H Creatinine (0.55-1.02) mg/dL 1.19 H Estimated GFR/1.73 m2 (mL/min/1.73m2) 44.72 Glucose (74-106) mg/dL 90 Calcium (8.5-10.1) mg/dL 9.1 Magnesium (1.8-2.4) mg/dL 2.0 Total Bilirubin (0.2-1.0) mg/dL 0.3 AST (15-37) U/L 15 ALT (14-59) U/L 15 Alkaline Phosphatase (46-116) U/L 76 Total Protein (6.4-8.2) g/dL 8.0 Albumin (3.4-5.0) g/dL 3.5 HPI General Mode of arrival: ambulatory . Date/Time Provider Initiated Documentation: 02/23/20 10:45 . Limitations to Documentation: no limitations . Information obtained by: patient, RN notes reviewed and old records reviewed . HPI Narrative: Tegan Ashton is a 69-year-old woman with a history of facial tic presenting to the emergency department with facial tic. Patient was seen here previously 01/04, seen by me in the emergency department for similar complaint. Per patient report and record review, patient with exact same symptoms today as she had at that visit. Patient has been having episodes of facial tics for months. She has been seen by neurology for this, both prior to 01/04 and again since being seen in the emergency department. Neurology adjusted some of her medications, but has not seen the patient with active symptoms. Of note, at the last visit to the emergency department 01/12, [facility] neurology was consulted and they requested patient be transferred to the emergency department so they could examine patient with active symptoms. Patient refused transfer at that time. [facility] neurology also requested that patient present to the emergency department should symptoms return. Patient states that she has had no symptoms since being seen here 01/04 and being prescribed Ativan until 3 days ago when symptoms returned, exactly similar to what she has had in the past. Patient reports that she did not go to [facility] for evaluation because [facility] is 1 hour away from her home and she did not feel like driving there. She denies any pain, numbness, weakness, fever, shortness of breath, cough, vomiting, diarrhea. Patient has been eating and drinking as usual prior to onset of symptoms, however she reports that it is difficult to eat when her symptoms are present and so has had somewhat decreased p.o. intake over the last few days. She reports that she has been able to drink fluids. Patient reports that she used Ativan after being discharged from the ER in December, and had no Ativan at home to use for this recurrence. Related Data Home Medications Medication Instructions Recorded Confirmed amlodipine 10 mg PO DAILY 05/19/14 02/23/20 fluoxetine 80 mg PO DAILY 05/19/14 02/23/20 omeprazole 40 mg PO DAILY 05/19/14 02/23/20 ondansetron HCl 4 mg PO DAILY PRN 05/19/14 02/23/20 polyethylene glycol 3350 [Miralax] 15 ml PO DAILY PRN 05/19/14 02/23/20 trazodone 150 mg PO HS 05/19/14 02/23/20 OxyContin 40 mg PO BID 05/29/15 02/23/20 oxycodone 15 mg PO TID PRN 02/19/18 02/23/20 Narcan 4 mg INTRANASAL Q3M PRN 01/05/20 02/23/20 aspirin [Aspirin Low Dose] 81 mg PO DAILY 01/05/20 02/23/20 cholecalciferol (vitamin D3) 25 mcg PO DAILY 01/05/20 02/23/20 [Vitamin D3] dronabinol 5 mg PO .UP TO 5 TABS A DAY 01/05/20 02/23/20 lactulose 15 ml PO DAILY PRN PRN 01/05/20 02/23/20 oxybutynin chloride 5 mg PO DAILY 01/05/20 02/23/20 vitamin B complex 1 tab PO DAILY 01/05/20 02/23/20 lorazepam [Ativan] 1 mg PO DAILY PRN #3 tab 02/23/20 Previous Rx's Medication Instructions Recorded lorazepam [Ativan] 1 mg PO DAILY PRN #3 tab 02/23/20 Allergies Allergy/AdvReac Type Severity Reaction Status Date / Time morphine AdvReac Intermediate Psychosis Unverified 02/23/20 10:20 baclofen AdvReac Unknown Unverified 02/23/20 10:20 chlorthalidone AdvReac Unknown Unverified 02/23/20 10:20 codeine AdvReac Unknown Unverified 02/23/20 10:20 dextromethorphan AdvReac Unknown Unverified 02/23/20 10:20 gabapentin [From Neurontin] AdvReac Unknown Unverified 02/23/20 10:20 hydrochlorothiazide AdvReac Unknown Unverified 02/23/20 10:20 pregabalin AdvReac Unknown Dopey Unverified 02/23/20 10:20 General Stated Complaint: GenMedical LOLITA: 3 Review of Systems Narrative: Constitutional: denies fevers Eyes: denies eye pain ENT: denies ear pain, dental pain, sore throat Cardiovascular: denies chest pain Respiratory: denies SOB, cough GI: denies abdominal pain, vomiting, diarrhea : denies flank pain MSK: denies back pain, neck pain, arthralgias, myalgias Skin: denies rash Neuro: denies headaches, numbness, weakness, reports facial tic as per HPI [facility] Social History Smoking/Tobacco Use Status: Never Alcohol Intake: never Drug use: Never Do you feel safe at home: Yes Do you feel safe in your relationship?: Yes Exam Narrative Exam Narrative: Constitutional: well and [id number], pleasant, conversing normally though with intermittent facial tic HENT: head atraumatic/normocephalic/normal inspection, mucous membranes moist Eyes: conjunctiva normal, sclera normal, pupils 3mm b/l Neck: no stridor, normal ROM, trachea midline Resp: normal work of breathing, no respiratory distress Cardio: normal rate, normal rhythm Skin: warm, dry, normal color, no rash Neuro: alert, not altered, grossly non-focal, normal tone, intermittent facial tic that affects that left face, worse during speech, stockkeeper 2-12 intact, motor 5/5 throughout Ext: no edema Psych: normal mood, normal affect, normal behavior Course Vital Signs Vital signs: Vital Signs Temperature 37 C 02/23/20 10:16 Pulse 58 L 02/23/20 10:16 Respiratory Rate 18 02/23/20 10:16 Blood Pressure 150/99 H 02/23/20 10:16 Pulse Oximetry 98 02/23/20 10:16 Temperature 37 C 02/23/20 10:16 Temperature Source Temporal Artery Scan 02/23/20 10:16 Pulse 58 L 02/23/20 10:16 Respiratory Rate 18 02/23/20 10:20 Respiratory Effort Non-Labored 02/23/20 10:20 Respiratory Depth Normal 02/23/20 10:20 Respiratory Pattern Normal 02/23/20 10:20 Blood Pressure 150/99 H 02/23/20 10:16 Blood Pressure Position Sitting 02/23/20 10:16 Pulse Oximetry 98 02/23/20 10:16 Oxygen Delivery Method Room Air 02/23/20 10:16 Oxygen Flow Rate 0 02/23/20 10:16 Lab/Test Results Lab/Test Results: Laboratory Tests Range/Units 02/23/20 02/23/20 11:04 11:04 WBC (4.4-10.8) 10^3/uL 6.65 RBC (3.93-5.22) 10^6/uL 3.95 Hgb (11.2-15.7) g/dL 11.2 Hct (36.0-46.0) % 34.6 L MCV (80-95) fL 87.6 MCH (27.0-33.0) pg 28.4 MCHC (32.0-36.0) % 32.4 RDW (11.7-14.6) % 13.5 Plt Count (130-400) 10^3/uL 297 MPV (8.0-11.0) fL 9.5 Immature Gran % 0.3 Neutrophils % 57.2 Lymphocytes % 28.7 Monocytes % 12.0 Eosinophils % 1.2 Basophils % 0.6 Nucleated RBC % % 0 Absolute Neutrophils (1.2-6.7) 10^3/uL 3.80 Absolute Lymphocytes (1.2-3.4) 10^3/uL 1.91 Absolute Monocytes (0.1-0.8) 10^3/uL 0.80 Absolute Eosinophils (0.0-0.7) 10^3/uL 0.08 Absolute Basophils (0.0-0.2) 10^3/uL 0.04 Sodium (136-145) mmol/L 139 Potassium (3.5-5.1) mmol/L 3.5 Chloride (98-107) mmol/L 102 Carbon Dioxide (21.0-32.0) mmol/L 31.2 Anion Gap (3-11) mmol/L 5.8 BUN (7-18) mg/dL 25 H Creatinine (0.55-1.02) mg/dL 1.19 H Estimated GFR/1.73 m2 (mL/min/1.73m2) 44.72 Glucose (74-106) mg/dL 90 Calcium (8.5-10.1) mg/dL 9.1 Magnesium (1.8-2.4) mg/dL 2.0 Total Bilirubin (0.2-1.0) mg/dL 0.3 AST (15-37) U/L 15 ALT (14-59) U/L 15 Alkaline Phosphatase (46-116) U/L 76 Total Protein (6.4-8.2) g/dL 8.0 Albumin (3.4-5.0) g/dL 3.5
[2020-02-23 13:02] VITALS: BP 140/80; PULSE 60; RESP 18; O2SAT 96
== END 2020-02-23 12:56 | disposition home or self-care (01) ==
PROVIDERS: Emergency Provider Student in an Organized Health Care Education/Training Program; PCP Family Medicine
DX: F95.8 Other tic disorders (principal)
CPT/HCPCS: 80053; 96374; 99284; 83735; 85025; 99283; J2060

== ENCOUNTER 2020-03-30 18:57 | Emergency (ER) | payer MEDICARE, SELFPAY ==
--- NOTE | 2020-03-30 18:59 | W.ED.GENAD ---
Discharge Plan Disposition Patient Disposition: HOME Condition: Improving Discharge Details Clinical Impression: Tic Primary Care Provider: Marixa Kurtz ED Provider: Gabrielle Mccann Home Meds and New Rx's Prescriptions: Continued fluoxetine 40 MG capsule 80 mg PO DAILY RF: 0 ondansetron HCl 4 MG tablet 4 mg PO DAILY PRNRF: 0 omeprazole 40 MG capsule,delayed release(DR/EC) 40 mg PO DAILY RF: 0 amlodipine 10 MG tablet 10 mg PO DAILY RF: 0 trazodone 150 MG tablet 150 mg PO HS RF: 0 polyethylene glycol 3350 [Miralax] 119 GM powder 15 ml PO DAILY PRNRF: 0 OxyContin 40 MG tablet extended release 12 hr 40 mg PO BID RF: 0 oxycodone 15 mg Tablet 15 mg PO TID PRN (Reason: Pain) RF: 0 dronabinol 5 mg capsule 5 mg PO .UP TO 5 TABS A DAY RF: 0 aspirin [Aspirin Low Dose] 81 mg Tablet,Delayed Release (Dr/Ec) 81 mg PO DAILY RF: 0 vitamin B complex Tablet 1 tab PO DAILY RF: 0 oxybutynin chloride 5 mg tablet 5 mg PO DAILY RF: 0 lactulose 10 gram/15 mL solution 15 ml PO DAILY PRN PRNRF: 0 cholecalciferol (vitamin D3) [Vitamin D3] 25 mcg (1,000 unit) Tablet 25 mcg PO DAILY RF: 0 Narcan 4 mg/actuation [place],Non-Aerosol 4 mg INTRANASAL Q3M PRNRF: 0 lorazepam [Ativan] 1 mg tablet 1 mg PO DAILY PRNQty: 3 RF: 0 Discharge Instructions Instructions: Lorazepam (By mouth) Additional Instructions: Labs are reassuring today as is her physical exam. Will be discharging home with oral Ativan if he has any recurrence of your patient take. You may take 1 tab every 6 hours as needed. Please take this only as prescribed do not drive will take this medication. I would like for you to follow-up with your primary care within the next week for reevaluation and discuss your recurrent symptoms. Follow-up with urology may also be indicated and please discuss failure to primary care. Please continue medications otherwise as previously prescribed. If you develop any fever/chills, rash pain or other new/worsening symptoms please to care urgently once again. Referrals: Marixa Kurtz [Primary Care Provider] - Discharge Data Discharge Date/Time-TO BE ENTERED AT DEPARTURE: 03/30/20 20:25 Medical Decision Making Patient is a pleasant 69-year-old female presenting today with chief complaint of muscle spasms to her neck and face. She is had this historically has been evaluated by neurology. States that this is been intermittent throughout the course of the day. She denies any new pain. Denies any new medications. Patient was seen by Dr. Cifuentes at [facility] neurology. After their evaluation, they are not completely clear on what was driving the patient's twitches. However, he did advise that differentials include pinched nerve versus medication juice versus small seizures. Patient reports that she has followed his recommendations hazard been reducing Prozac and has stopped the trazodone completely. States has been on trazodone for 2 weeks. Denies any fevers or chills. Denies any recent trauma. States that this feels the same as it has historically. On exam, patient appears anxious. She is having intermittent short bursts of twitching that seems to affect the right eyebrow, lower half of her face into her neck. This does make it difficult for the patient to speak and seems to fragment her breathing and her pattern of speech. In between these episodes, which are fairly short-lived and only last for 10 seconds, her speech and movement seems to be quite clear. This does not appear to affect her extremities or torso. Patient appears not systemically ill. Cognition is intact. Based on patient's history, this seems to be chronic and recurring. I am concerned for potential metabolic derangement because the patient seems to be treating as has been recommended by neurology. I do not see any evidence to suggest infection meningitis or sepsis. Her exam is not consistent with a CVA. While patient was on the differential, this certainly does not seem to be movement driven and not appreciate any new neck pain on exam. Plan for baseline labs and will give Ativan in the event that this may be a small seizure. After ativan, patient appears much improved. She reports feeling better.Neurologic exam repeated with no deficits noted at this time. I do not see need for imaging at this time as this has been a repetative issue for hte patient and she is now back to baseline. Labs reviewed, creatinine and BUN elevated but both are baseline for the patient. Discussed findings with the patient. I will send her home with a few Ativan to use at the beginning of repeat episode if this should occur. Her report is that this only happens 1-2 x per month. I have asked that she f/u closely with her PCP. She is follewed by neurology. Their note advisese that patient f/u with them if she has recurrence. I advised she call tomorrow to schedule appointment. She was given strict return precautions. All of her questions and concerns were addressed, she i sin agreement with this plan. HPI General Mode of arrival: wheelchair. Date/Time Provider Initiated Documentation: 03/30/20 18:59. Limitations to Documentation: no limitations. Information obtained by: patient and RN notes reviewed. History of Present Illness 69 year old F presents to the emergency department with the chief complaint of facial and neck spasms, described as moderate and similar to prior episodes, Quality is described as other (no pain. Uncontrolled spasms that limit ability to talk and eat), and is localized to the face, mouth, eyes (right eyebrow involved) and neck. Patient reports no radiation. Patient started experiencing this hour(s) (first began this AM) and it has been constant. Medication improves symptom(s), (has responded well to ativan historically) No exacerbating factors reported (reports 1-2 days of this per month, typically they subside more quickly) . Patient notes no other symptoms.. Patient did receive the following treatments prior to arrival, none Related Data Home Medications Medication Instructions Recorded Confirmed amlodipine 10 mg PO DAILY 05/19/14 02/23/20 fluoxetine 80 mg PO DAILY 05/19/14 02/23/20 omeprazole 40 mg PO DAILY 05/19/14 02/23/20 ondansetron HCl 4 mg PO DAILY PRN 05/19/14 02/23/20 polyethylene glycol 3350 [Miralax] 15 ml PO DAILY PRN 05/19/14 02/23/20 trazodone 150 mg PO HS 05/19/14 02/23/20 OxyContin 40 mg PO BID 05/29/15 02/23/20 oxycodone 15 mg PO TID PRN 02/19/18 02/23/20 Narcan 4 mg INTRANASAL Q3M PRN 01/05/20 02/23/20 aspirin [Aspirin Low Dose] 81 mg PO DAILY 01/05/20 02/23/20 cholecalciferol (vitamin D3) 25 mcg PO DAILY 01/05/20 02/23/20 [Vitamin D3] dronabinol 5 mg PO .UP TO 5 TABS A DAY 01/05/20 02/23/20 lactulose 15 ml PO DAILY PRN PRN 01/05/20 02/23/20 oxybutynin chloride 5 mg PO DAILY 01/05/20 02/23/20 vitamin B complex 1 tab PO DAILY 01/05/20 02/23/20 lorazepam [Ativan] 1 mg PO DAILY PRN #3 tab 02/23/20 Previous Rx's Medication Instructions Recorded lorazepam [Ativan] 1 mg PO DAILY PRN #3 tab 02/23/20 Allergies Allergy/AdvReac Type Severity Reaction Status Date / Time morphine AdvReac Intermediate Psychosis Unverified 03/30/20 19:07 baclofen AdvReac Unknown Unverified 03/30/20 19:07 chlorthalidone AdvReac Unknown Unverified 03/30/20 19:07 codeine AdvReac Unknown Unverified 03/30/20 19:07 dextromethorphan AdvReac Unknown Unverified 03/30/20 19:07 gabapentin [From Neurontin] AdvReac Unknown Unverified 03/30/20 19:07 hydrochlorothiazide AdvReac Unknown Unverified 03/30/20 19:07 pregabalin AdvReac Unknown Dopey Unverified 03/30/20 19:07 General LOLITA: 3 Review of Systems Constitutional Constitutional: Reports as per HPI, Denies chills, Denies fatigue, Denies fever(s), Denies frequent falls, Denies headache(s), Denies snoring and Denies weakness Eyes Eyes: Reports as per HPI, Denies blurry vision, Denies change in vision and Reports photophobia ENT Ears, Nose, Mouth, and Throat: Denies vertigo, Denies headache(s) and Denies neck pain Cardiovascular Cardiovascular: Reports as per HPI, Denies chest pain, Denies lightheadedness, Denies radiating jaw, neck or arm pain, Denies dyspnea and Denies dyspnea on exertion Respiratory Respiratory: Reports as per HPI, Denies chest congestion, Denies cough, Denies dyspnea, Denies dyspnea on exertion, Denies snoring, Denies stridor and Denies wheezing Gastrointestinal Gastrointestinal: Reports as per HPI, Denies abdominal pain, Denies change in bowel habits, Denies nausea and Denies vomiting Musculoskeletal Musculoskeletal: Reports as per HPI, Denies back pain, Denies myalgias, Denies muscle cramps, Denies neck pain and Denies numbness Integumentary/Breasts Skin/Breast: Reports as per HPI and Denies rash Neurologic Neurologic: Reports as per HPI, Reports abnormal movements, Reports abnormal speech (spasms make speech difficult), Denies behavioral changes, Denies confusion, Denies vertigo, Denies frequent falls, Denies headache(s), Denies localized weakness, Denies numbness, Denies sensory deficit and Denies weakness Psychiatric Psychiatric: Denies behavioral changes and Denies confusion Endocrine Endocrine: Denies fatigue Allergic/Immunologic Allergic/Immunologic: Denies wheezing [facility] Social History Smoking/Tobacco Use Status: Never Alcohol Intake: never Drug use: Never Do you feel safe at home: Yes Do you feel safe in your relationship?: Yes Exam Const General: cooperative, healthy appearing, uncomfortable, no acute distress, well developed, well groomed, anxious and ill appearing acutely Nutritional Appearance: average body habitus and well nourished Orientation: alert, awake and oriented x3 HENMT Head: normal to inspection, no palpable skull fracture, normocephalic and atraumatic Ears: hearing grossly normal bilaterally, external ears normal and TM's normal bilaterally General nose exam: external nose normal Mouth: oral mucosae normal and moist mucous membranes Throat: posterior oropharynx normal Eyes General: appearance normal, both eyes and all related structures Alignment and Position: alignment normal Periorbital: periorbital findings normal Eyelids: eyelids normal Sclera: sclerae normal Cornea: corneas normal Pupils: PERRL EOM: EOM intact bilaterally Neck Neck: normal visual inspection, full ROM, no lymphadenopathy and no meningeal signs Resp Effort & Inspection: normal respiratory effort, able to speak in complete sentences and no respiratory distress Auscultation: clear to auscultation bilaterally, no rales, no rhonchi and no wheezes Cardio Rate: regular rate Rhythm: regular rhythm Heart Sounds: S1 normal and S2 normal GI Inspection: normal to inspection and non-distended Palpation: soft, no hepatosplenomegaly, not firm, no guarding, not rigid and nontender Percussion: normal to percussion Auscultation: normal bowel sounds Back/Spine/Pelvis Cervical Spine: normal cervical lordosis and cervical ROM normal Skin General skin exam: no rashes or lesions noted Neuro General: patient alert, patient awake and patient oriented x3 Cranial Nerves: CN's II-XI intact bilaterally Cognition: normal cognition Speech: speech normal (limited only during spasm) Gait: normal gait Motor: muscle tone normal throughout, strength 5/5 throughout, no pronator drift, no movement abnormalities noted and movement abnormality noted (fast, repetative spasms that move up neck to face. Involves right eyebrow) tics Sensory Exam: no sensory deficits noted Coordination: [id number] test normal and [id number] test normal Extrem General: normal to inspection, capillary refill normal, no pedal edema and no calf tenderness Psych Appearance: grossly normal and well kempt Mental Status: mental status grossly normal Speech and Movement: speech and movement normal
--- NOTE | 2020-03-30 19:00 | RT.EKG_ITS ---
APPROVED REPORT Exam: Resting ECG Patient Location: E HR:83 bpm ECG Measurements Heart Rate 83 AXIS GA 176 P 46 QRSd 88 QRS 4 QT 401 T 35 QTc 464 Conclusion Sinus rhythm...normal P axis, V-rate 60- 99 Multiform ventricular premature complexes...short R-R, variable morphology Probable left atrial enlargement...P >50mS, <-0.10mV V1. I have reviewed and interpreted ECG and agree with software generated interpretation.
[2020-03-30 19:01] VITALS: BP 142/75; PULSE 85; RESP 20; TEMP 36.7; O2SAT 99
[2020-03-30 19:04] VITALS: BP 142/75; PULSE 76; PULSE 95; RESP 14; O2SAT 98
[2020-03-30] MEDS: LORazepam 2 MG/ML VIAL 1 MG IVP (19:10)
[2020-03-30 19:15] VITALS: BP 128/90; PULSE 75; PULSE 79; RESP 22; O2SAT 96
--- NOTE | 2020-03-30 19:18 | NUR.NOTE ---
Nursing Note: Trembling appears to have stopped, patient with no delayed speech at this time.
[2020-03-30 19:20] LABS: Abs Immature Grans 0.01 10^3/uL (0.0-0.06); Absolute Basophil Count 0.03 10^3/uL (0.0-0.2); Absolute Eosinophil Count 0.01 10^3/uL (0.0-0.7); Absolute Monocyte Count 0.57 10^3/uL (0.1-0.8); Absolute Neutrophil Count 4.08 10^3/uL (1.2-6.7); Basophils % 0.5; Eosinophils % 0.2; HCT 35.3 % (36.0-46.0); HGB 11.3 g/dL (11.2-15.7); Immature Grans % 0.2; Lymphocytes % 20.3; MCH 27.9 pg (27.0-33.0); MCV 87.2 fL (80-95); MPV 9.7 fL (8.0-11.0); Monocytes % 9.7; Neutrophils % 69.1; Nucleated RBC 0 %; Platelet Count 320 10^3/uL (130-400); RBC 4.05 10^6/uL (3.93-5.22); RDW 13.8 % (11.7-14.6)
[2020-03-30 19:30] VITALS: BP 131/78; PULSE 72; PULSE 81; RESP 13; O2SAT 94
[2020-03-30 19:46] VITALS: BP 134/69; PULSE 77; PULSE 80; RESP 23; O2SAT 97
[2020-03-30 19:49] LABS: ALT 23 U/L (14-59); AST 15 U/L (15-37); Albumin 3.5 g/dL (3.4-5.0); Alkaline Phosphatase 104 U/L (46-116); Anion Gap 9.6 mmol/L (3-11); BUN 25 mg/dL (7-18); Bilirubin, Total 0.4 mg/dL (0.2-1.0); CO2 25.4 mmol/L (21.0-32.0); CREATININE 1.08 mg/dL (0.55-1.02); Calcium 9.3 mg/dL (8.5-10.1); Chloride 104 mmol/L (98-107); Estimated GFR 50.01 (mL/min/1.73m2); Glucose 116 mg/dL (74-106); Potassium 4.1 mmol/L (3.5-5.1); Sodium 139 mmol/L (136-145); TSH 0.39 uIU/mL (0.36-3.74); Total Protein 8.2 g/dL (6.4-8.2)
[2020-03-30 20:00] VITALS: BP 141/77; PULSE 61; PULSE 63; RESP 15; O2SAT 97
[2020-03-30] MEDS: LORazepam 1 MG TAB 3 MG PO (20:27)
== END 2020-03-30 20:25 | disposition home or self-care (01) ==
PROVIDERS: Emergency Provider Physician Assistant; PCP Family Medicine
DX: F95.8 Other tic disorders (principal)
CPT/HCPCS: 36415; 80053; 93005; 96374; 99283; 84443; 85025; 93010; J2060

== ENCOUNTER 2020-04-05 15:41 | Outpatient (CLI) | payer MEDICARE, SELFPAY ==
--- NOTE | 2020-04-05 14:45 | DI.RAD_ITS ---
EXAM: XR KNEE RT 3V AP,LAT,SAVANAH CLINICAL HISTORY: R knee pain. TECHNIQUE: 2D digital imaging was performed. COMPARISON: CR LEFT KNEE 3 VIEW COMPLETE from 01/20/2013 FINDINGS: BONES: No acute fracture is present. No bony destructive lesion is seen. JOINTS: The knee is normally aligned. No joint effusion is seen. There is spurring at the articular aspect of the patella. There is mild narrowing of the medial femoral tibial joint and mild spurring from the femoral condyles and tibial plateaus.. There is spurring at the quadriceps insertion on the patella. SOFT TISSUE: Normal. IMPRESSION: Degenerative changes, greatest of the patellofemoral joint. DATA REPOSITORY: RADIATION DOSE DELIVERED:
--- NOTE | 2020-04-05 14:45 | DI.RAD_ITS ---
EXAM: XR KNEE LT 3V AP,LAT,SAVANAH CLINICAL HISTORY: L knee pain. TECHNIQUE: 2D digital imaging was performed. COMPARISON: CR XR KNEE RT 3V AP,LAT,SAVANAH from 04/05/2020 FINDINGS: There is prominent spurring at the articular aspect of the patella, greater superiorly. There is mod erate narrowing of the medial femoral tibial joint space and mild spurring from the medial femoral co ndyle and medial tibial plateau. The bones appear osteopenic. No joint effusion visible. IMPRESSION: Degenerative changes, greatest of the patellofemoral joint. DATA REPOSITORY: RADIATION DOSE DELIVERED:
== END 2020-04-05 16:01 ==
PROVIDERS: PCP Family Medicine; Referring Provider Family Medicine; Visit Provider Student in an Organized Health Care Education/Training Program
DX: M17.0 Bilateral primary osteoarthritis of knee (principal); M17.11 Unilateral primary osteoarthritis, right knee; M17.12 Unilateral primary osteoarthritis, left knee
CPT/HCPCS: 20610; 73562; 99214; J1040

== ENCOUNTER 2020-05-08 11:19 | Outpatient (REF) | payer MEDICARE, SELFPAY ==
[2020-05-11 09:27] LABS: Patient Race White; SARS-CoV-2 RNA Undetected (Undetected); SARS-CoV-2 Specimen Source Nasal
== END 2020-05-08 11:39 ==
LOC: NCHCN 11:19
PROVIDERS: PCP Family Medicine; Visit Provider Internal Medicine
DX: Z20.828 Contact with and (suspected) exposure to other viral communicable diseases (principal)
CPT/HCPCS: U0003

== ENCOUNTER → 2020-05-24 14:54 | Outpatient (BNVA) | payer MEDICARE, SELFPAY | PROVIDERS: PCP Family Medicine; Referring Provider Family Medicine; Visit Provider Student in an Organized Health Care Education/Training Program | DX: M17.0 Bilateral primary osteoarthritis of knee (principal); Z98.890 Other specified postprocedural states | CPT/HCPCS: 99213 ==

== ENCOUNTER 2020-08-23 01:23 | Outpatient (CLI) | payer MEDICARE, SELFPAY ==
--- NOTE | 2020-08-23 13:57 | DI.MAMMO_ITS ---
EXAM: MAMMO SCREENING CLINICAL HISTORY: SCREENING, Z12.31 TECHNIQUE: Mammograms were interpreted according to the usual protocol including computer analysis w [employer] CAD system, tomosynthesis and C-view imaging. COMPARISON: 2010 through 2018 FINDINGS: The breasts are composed of scattered fibroglandular densities, Breast Density category B. No suspicious masses or suspicious microcalcifications are seen. No skin thickening or abnormal axillary lymph nodes are seen. There has been no significant change from prior exams. IMPRESSION: BI-RADS Category 1, Negative mammogram Yearly screening mammography is recommended. Breast Density - Category B, scattered fibroglandular densities. A negative radiographic report should not delay biopsy if a dominant or clinically suspicious mass is present. Up to ten percent of cancers are not identified on mammography. A negative report may reinforce clinical impression. Adenosis and dense breasts may obscure an underlying neoplasm. False positive reports average 6 to 10%. Patient will receive a letter notifying them of these results.
== END 2020-08-23 01:43 ==
PROVIDERS: PCP Family Medicine; Visit Provider Family Medicine
DX: Z12.31 Encounter for screening mammogram for malignant neoplasm of breast (principal)
CPT/HCPCS: 77063; 77067

== ENCOUNTER 2020-09-16 19:06 | Inpatient (IN) | payer MEDICARE, SELFPAY ==
[2020-09-16] VITALS (21 sets, daily range): BP systolic 179–212; BP diastolic 74–98; PULSE 60–79; RESP 9–20; TEMP 37; O2SAT 91–98
--- NOTE | 2020-09-16 19:28 | ED.GENADUL_ITS ---
Discharge Plan Disposition Patient Disposition: [facility] INPATIENT Condition: Stable Discharge Details Clinical Impression: Fracture of left hip Admit Date/Time: 09/16/20 22:08 Admit Provider: Oscar Mckoy Attending Provider: Oscar Mckoy Primary Care Provider: Marixa Kurtz ED Provider: Renetta Xie Discharge Data Discharge Date/Time-TO BE ENTERED AT DEPARTURE: 09/17/20 00:08 Medical Decision Making 1930 -- 69-year-old female with a history of osteoarthritis presents for left hip pain status post fall. She has left lower extremity shortening and external rotation with limited range of motion and tenderness to palpation to left hip. She is neurovascularly intact. Left elbow normal to inspection without evidence of trauma or pain with range of motion. Denies head injury. Blood pressure on arrival 204/98. Will give patient a dose of Dilaudid IV and refer for x-rays. 2100 -- Delay in going to x-ray due to high number of patients requiring imaging studies in the ED in addition to trying to control patient's pain and pt needing to urinate and obtaining a urine sample with Hawkins catheter. Imaging reviewed and notes displaced left femoral neck fracture. Discussed with Dr. Renteria who will likely take patient to the OR in the morning. Discussed with hospitalist who accepts patient for admission. Patient reassessed and informed of results and plan. She has had minimal relief with 2 doses of Dilaudid. Will call anesthesia for hip block. 1010 -- Discussed with nursing production shift supervisor -- anesthesia to come in for hip block Medical Records Medical records reviewed: Yes I reviewed the patient's medical records. Imaging Data Radiologic Study: Radiologist's impression: XR Chest Exam date and time: 09/16/2020 9:47 PM Age: 69 years old Clinical indication: Injury or trauma; Fall; Blunt trauma (contusions or hematomas) TECHNIQUE: Imaging protocol: XR of the chest Views: 1 view. COMPARISON: CR CHEST 2 VIEWS PA,LAT 09/29/2015 3:05 PM FINDINGS: Lungs: Lungs are clear. Pleural spaces: Unremarkable. No pleural effusion. No pneumothorax. Heart/Mediastinum: Unremarkable. No cardiomegaly. Bones/joints: Unremarkable. Organs: Prior cholecystectomy. IMPRESSION: 1. No acute fracture. 2. No acute cardiopulmonary abnormality. XR Left Femur Exam date and time: 09/16/2020 7:45 PM Age: 69 years old Clinical indication: Injury or trauma; Fall; Blunt trauma; Hip; Left TECHNIQUE: Imaging protocol: XR Left femur. Views: 2 views. COMPARISON: CR XR KNEE LT 3V AP,LAT,SAVANAH 04/05/2020 3:10 PM FINDINGS: Bones/joints: Displaced basicervical femoral neck fracture. Remainder of the femur is intact. Probable mild knee joint degenerative changes. No significant joint effusion. Soft tissues: Unremarkable. IMPRESSION: Basicervical femoral neck fracture. No other acute fracture. XR Left Hip Exam date and time: 09/16/2020 7:45 PM Age: 69 years old Clinical indication: Injury or trauma; Fall; Blunt trauma (contusions or hematomas); Left; Hip TECHNIQUE: Imaging protocol: XR Left hip. Views: 2 or 3 views hip with pelvis when performed. COMPARISON: CT ABDOMEN PELVIS W 08/04/2019 1:10 PM FINDINGS: Bones/joints: Impacted basicervical left femoral neck fracture. Mild right hip joint space narrowing and marginal degenerative spurring. Lower lumbar spondylosis, incompletely evaluated. Soft tissues: Unremarkable. IMPRESSION: 1. Displaced basicervical left femoral neck fracture. 2. Mild right hip joint degenerative disease. Lab Data Lab results reviewed: Yes I reviewed the patient's lab results. Labs: Laboratory Tests Range/Units 09/16/20 09/16/20 09/16/20 20:45 21:30 21:30 WBC (4.4-10.8) 10^3/uL 7.55 RBC (3.93-5.22) 10^6/uL 3.78 L Hgb (11.2-15.7) g/dL 10.6 L Hct (36.0-46.0) % 32.5 L MCV (80-95) fL 86.0 MCH (27.0-33.0) pg 28.0 MCHC (32.0-36.0) % 32.6 RDW (11.7-14.6) % 13.8 Plt Count (130-400) 10^3/uL 248 MPV (8.0-11.0) fL 9.7 Immature Gran % 0.5 Neutrophils % 75.4 Lymphocytes % 14.4 Monocytes % 9.0 Eosinophils % 0.3 Basophils % 0.4 Nucleated RBC % % 0 Absolute Neutrophils (1.2-6.7) 10^3/uL 5.69 Absolute Lymphocytes (1.2-3.4) 10^3/uL 1.09 L Absolute Monocytes (0.1-0.8) 10^3/uL 0.68 Absolute Eosinophils (0.0-0.7) 10^3/uL 0.02 Absolute Basophils (0.0-0.2) 10^3/uL 0.03 Sodium (136-145) mmol/L 141 Potassium (3.5-5.1) mmol/L 4.4 Chloride (98-107) mmol/L 105 Carbon Dioxide (21.0-32.0) mmol/L 27.9 Anion Gap (3-11) mmol/L 8.1 BUN (7-18) mg/dL 29 H Creatinine (0.55-1.02) mg/dL 1.1 H Estimated GFR/1.73 m2 (mL/min/1.73m2) 48.96 Glucose (74-106) mg/dL 104 Calcium (8.5-10.1) mg/dL 9.1 Total Bilirubin (0.2-1.0) mg/dL 0.3 AST (15-37) U/L 16 ALT (14-59) U/L 20 Alkaline Phosphatase (46-116) U/L 79 Total Protein (6.4-8.2) g/dL 8.2 Albumin (3.4-5.0) g/dL 3.6 Urine Color (Yellow) Yellow Urine Clarity (Clear) Clear Urine pH (5-8) 5.5 Ur Specific Cordell (1.005-1.025) 1.020 Urine Protein (Negative) mg/dL Negative Urine Ketones (Negative) mg/dL Negative Urine Blood (Negative) Trace-intact H Urine Nitrite (Negative) Negative Urine Bilirubin (Negative) Negative Urine Urobilinogen (Up TO 0.2) EU/dL 0.2 Ur Leukocyte Esterase (Negative) Negative Urine RBC (0-2) HPF 0-2 Urine WBC (0-5) HPF 0-2 Ur Epithelial Cells (Negative) HPF Few Urine Crystals (Negative) HPF Negative Urine Bacteria (Negative) HPF Negative Urine Casts (Negative) LPF Negative Urine Mucus (Negative) Negative Urine Other (Negative) Negative Ur Culture Indicated? No Urine Glucose (Negative) mg/dL Negative ECG Data Attestation: I personally reviewed and interpreted this ECG (s) as follows: Interpretation: Rate of 72, sinus, no acute ST elevation or depression. KS 205. QRS 93. QTc 480. HPI General Mode of arrival: EMS . Date/Time Provider Initiated Documentation: 09/16/20 19:28 . Limitations to Documentation: no limitations . Information obtained by: patient . HPI Narrative: Patient is a 69-year-old female with a history of osteoarthritis who presents to the ED with a complaint of left hip pain status post fall prior to arrival. Patient states she was walking in her house carrying groceries when she slipped on a step and fell onto her left hip. She denies dizziness, chest pain or shortness of breath prior to fall. She denies head injury. She is also complaining of some left elbow pain but states her main complaint is her left hip pain. She was given fentanyl in route per EMS with some relief. EMS noted left lower extremity shortening and external rotation. Related Data Home Medications Medication Instructions Recorded Confirmed amlodipine 10 mg PO DAILY 05/19/14 09/17/20 omeprazole 40 mg PO DAILY 05/19/14 09/17/20 ondansetron HCl 4 mg PO DAILY PRN 05/19/14 09/17/20 polyethylene glycol 3350 [Miralax] 15 ml PO DAILY PRN 05/19/14 09/17/20 OxyContin 40 mg PO BID 05/29/15 09/17/20 oxycodone 15 mg PO TID PRN 02/19/18 09/17/20 Narcan 4 mg INTRANASAL Q3M PRN 01/05/20 09/17/20 aspirin [Aspirin Low Dose] 81 mg PO DAILY 01/05/20 09/17/20 cholecalciferol (vitamin D3) 25 mcg PO DAILY 01/05/20 09/17/20 [Vitamin D3] lactulose 15 ml PO DAILY PRN PRN 01/05/20 09/17/20 oxybutynin chloride 5 mg PO DAILY 01/05/20 09/17/20 vitamin B complex 1 tab PO DAILY 01/05/20 09/17/20 lorazepam [Ativan] 1 mg PO DAILY PRN #3 tab 02/23/20 09/17/20 fluoxetine 40 mg capsule 40 mg PO DAILY cap 04/05/20 09/17/20 melatonin 5 mg capsule mg PO HS cap 04/05/20 05/24/20 Previous Rx's Medication Instructions Recorded lorazepam [Ativan] 1 mg PO DAILY PRN #3 tab 02/23/20 Allergies Allergy/AdvReac Type Severity Reaction Status Date / Time morphine AdvReac Intermediate Psychosis Unverified 05/24/20 15:01 baclofen AdvReac Unknown Unverified 05/24/20 15:01 chlorthalidone AdvReac Unknown Unverified 05/24/20 15:01 codeine AdvReac Unknown Unverified 05/24/20 15:01 dextromethorphan AdvReac Unknown Unverified 05/24/20 15:01 gabapentin [From Neurontin] AdvReac Unknown Unverified 05/24/20 15:01 hydrochlorothiazide AdvReac Unknown Unverified 05/24/20 15:01 pregabalin AdvReac Unknown Dopey Unverified 05/24/20 15:01 General Stated Complaint: Orthopedic LOLITA: 3 Review of Systems All systems reviewed & are unremarkable except as noted in HPI and below Constitutional Constitutional: Reports as per HPI, Denies chills and Denies fever(s) Eyes Eyes: Denies blurry vision ENT Ears, Nose, Mouth, and Throat: Denies dizziness, Denies sore throat and Denies throat swelling Cardiovascular Cardiovascular: Denies chest pain and Denies dyspnea Respiratory Respiratory: Denies cough and Denies dyspnea Gastrointestinal Gastrointestinal: Denies abdominal pain, Denies diarrhea and Denies vomiting Genitourinary Genitourinary: Denies hematuria and Denies dysuria Musculoskeletal Musculoskeletal: Denies back pain, Denies numbness and Reports other (L hip pain, L elbow pain) Integumentary/Breasts Skin/Breast: Denies lesions and Denies rash Neurologic Neurologic: Denies dizziness, Denies localized weakness and Denies numbness Allergic/Immunologic Allergic/Immunologic: Denies throat swelling [facility] Medical History (Updated 09/17/20 @ 14:31 by Jonathan Paulino MD) Chronic pain syndrome Chronic renal insufficiency, stage III (moderate) Hypertension Osteoarthritis of right knee Steroid injection: 04/05/2020 Has had previous viscosupplementation injections. Surgical History History of back surgery Hx of cholecystectomy Social History (Updated 09/17/20 @ 02:17 by Oscar Mckoy) Smoking/Tobacco Use Status: Never Smoking risk assessment performed?: Yes Alcohol Intake: never Drug use: Never Do you feel safe at home: Yes Do you feel safe in your relationship?: Yes Additional Social history: Grew up in [place], still lives in family home in [facility], lives alone In [place], still lives with her family health in [facility]. Still lives in family all Exam Const General: cooperative, healthy appearing and no acute distress HENMT Head: normal to inspection Face and sinus: normal facial exam Eyes General: appearance normal, both eyes and all related structures Pupils: PERRL EOM: EOM intact bilaterally Neck Neck: normal visual inspection and No submandibular swelling Lymphatic: no lymphadenopathy noted Chest Chest: normal inspection of the chest and no tenderness Resp Effort & Inspection: normal respiratory effort and able to speak in complete sentences Auscultation: clear to auscultation bilaterally Cardio Rate: regular rate Rhythm: regular rhythm GI Inspection: normal to inspection Palpation: soft, not firm, not rigid and nontender Auscultation: normal bowel sounds Back/Spine/Pelvis Thoracic/Lumbar Spine: thoracic and lumbar spine normal to inspection Skin General skin exam: no rashes or lesions noted Neuro General: patient alert, patient awake and patient oriented x3 Cognition: normal cognition Speech: speech normal Motor: muscle tone normal throughout Sensory Exam: no sensory deficits noted Extrem Other: Tenderness palpation to left hip. Limited range of motion at left hip due to pain. Left lower extremity shortening and external rotation. Normal range of motion of bilateral upper extremities without pain or evidence of trauma. No tenderness palpation to left elbow. Normal range of motion of right lower extremity without pain or evidence of trauma. Distal pulses intact. Psych Appearance: grossly normal Mental Status: mental status grossly normal Speech and Movement: speech and movement normal Affect: normal affect Course Vital Signs Vital signs: Vital Signs Temperature 98.6 F 09/16/20 19:10 Pulse 66 09/16/20 19:10 Respiratory Rate 16 09/16/20 19:10 Blood Pressure 204/98 H 09/16/20 19:10 Pulse Oximetry 95 09/16/20 19:10 Temperature 98.6 F 09/16/20 19:10 Temperature Source Skin 09/16/20 19:10 Pulse 66 09/16/20 19:10 Respiratory Rate 16 09/16/20 19:10 Respiratory Effort 09/16/20 19:23 Blood Pressure 204/98 H 09/16/20 19:10 Blood Pressure Position Supine 09/16/20 19:10 Pulse Oximetry 95 09/16/20 19:10 Oxygen Delivery Method Room Air 09/16/20 19:10 Oxygen Flow Rate 0 09/16/20 19:10 Pain Level 6 09/16/20 19:10 Comment left: 201/103 09/16/20 19:10
[2020-09-16] MEDS: HYDROmorphone 2 MG/ML VIAL 1 MG IVP ×2 (19:51→20:31)
--- NOTE | 2020-09-16 20:57 | NUR.NOTE ---
Nursing Note: PT care assumed from Lucía WHITT at this time.
[2020-09-16 21:09] LABS: Bilirubin Negative (Negative); Blood Trace-intact (Negative); Clarity Clear (Clear); Glucose Negative (Negative); Ketones Negative (Negative); Leukocyte Esterase Negative (Negative); Nitrite Negative (Negative); Urobilinogen 0.2 EU/dL (Up TO 0.2); pH 5.5 (5-8)
--- NOTE | 2020-09-16 21:10 | DI.RAD_ITS ---
EXAM: XR HIP LT COMPLETE AP PELVIS CLINICAL HISTORY: s/p fall, r/o acute fx L hip TECHNIQUE: COMPARISON: CR PELVIS AP from 01/20/2013 CR,XR XR FEMUR LT from 09/16/2020 FINDINGS: Four views of the hip and 3 additional views of the femur were obtained. There is a fracture of the neck of the femur with moderate displacement and varus deformity. No additional fracture seen involv ing the left femur, pelvis, or right hip. IMPRESSION: RADIATION DOSE DELIVERED: Total DLP
[2020-09-16 21:12] LABS: Bacteria Negative HPF (Negative); C & S Indicated? No; Casts Negative LPF (Negative); Crystals Negative HPF (Negative); Epithelial Cells Few HPF (Negative); Mucus Negative (Negative); Other Cells Negative (Negative); RBC 0-2 HPF (0-2); WBC 0-2 HPF (0-5)
--- NOTE | 2020-09-16 21:15 | RT.EKG_ITS ---
APPROVED REPORT Exam: Resting ECG Patient Location: E HR:72 bpm ECG Measurements Heart Rate 72 AXIS [place] 205 P 56 QRSd 93 QRS 24 QT 438 T 43 QTc 480 Conclusion Sinus rhythm...normal P axis, V-rate 60- 99 I have reviewed and interpreted ECG and agree with software generated interpretation.
--- NOTE | 2020-09-16 21:28 | DI.VRAD_ITS ---
PROCEDURE INFORMATION: Exam: XR Left Hip Exam date and time: 09/16/2020 7:45 PM Age: 69 years old Clinical indication: Injury or trauma; Fall; Blunt trauma (contusions or hematomas); Left; Hip TECHNIQUE: Imaging protocol: XR Left hip. Views: 2 or 3 views hip with pelvis when performed. COMPARISON: CT ABDOMEN PELVIS W 08/04/2019 1:10 PM FINDINGS: Bones/joints: Impacted basicervical left femoral neck fracture. Mild right hip joint space narrowing and marginal degenerative spurring. Lower lumbar spondylosis, incompletely evaluated. Soft tissues: Unremarkable. IMPRESSION: 1. Displaced basicervical left femoral neck fracture. 2. Mild right hip joint degenerative disease. Dictated and Authenticated by: Pedro Funez MD. Ordering:JOESPH Jackson MD
--- NOTE | 2020-09-16 21:29 | DI.VRAD_ITS ---
PROCEDURE INFORMATION: Exam: XR Left Femur Exam date and time: 09/16/2020 7:45 PM Age: 69 years old Clinical indication: Injury or trauma; Fall; Blunt trauma; Hip; Left TECHNIQUE: Imaging protocol: XR Left femur. Views: 2 views. COMPARISON: CR XR KNEE LT 3V AP,LAT,SAVANAH 04/05/2020 3:10 PM FINDINGS: Bones/joints: Displaced basicervical femoral neck fracture. Remainder of the femur is intact. Probable mild knee joint degenerative changes. No significant joint effusion. Soft tissues: Unremarkable. IMPRESSION: Basicervical femoral neck fracture. No other acute fracture. Dictated and Authenticated by: Pedro Funez MD. Ordering:JOESPH Jackson MD
[2020-09-16 21:35] LABS: Abs Immature Grans 0.04 10^3/uL (0.0-0.06); Absolute Basophil Count 0.03 10^3/uL (0.0-0.2); Absolute Eosinophil Count 0.02 10^3/uL (0.0-0.7); Absolute Lymphocyte Count 1.09 10^3/uL (1.2-3.4); Absolute Monocyte Count 0.68 10^3/uL (0.1-0.8); Absolute Neutrophil Count 5.69 10^3/uL (1.2-6.7); Basophils % 0.4; Eosinophils % 0.3; HCT 32.5 % (36.0-46.0); HGB 10.6 g/dL (11.2-15.7); Immature Grans % 0.5; Lymphocytes % 14.4; MCHC 32.6 % (32.0-36.0); MPV 9.7 fL (8.0-11.0); Neutrophils % 75.4; Nucleated RBC 0 %; Platelet Count 248 10^3/uL (130-400); RBC 3.78 10^6/uL (3.93-5.22); RDW 13.8 % (11.7-14.6); RDW-SD 42.9 fL; WBC 7.55 10^3/uL (4.4-10.8)
[2020-09-16] MEDS: diazePAM 5 MG TAB PO (21:47)
[2020-09-16] MEDS: fentaNYL 100 MCG/2 ML VIAL IVP (21:47)
--- NOTE | 2020-09-16 21:47 | DI.RAD_ITS ---
EXAM: XR PORTABLE CHEST AP CLINICAL HISTORY: L hip fx, r/o acute disease TECHNIQUE: COMPARISON: CR CHEST 2 VIEWS PA,LAT from 09/29/2015 FINDINGS: Heart is enlarged. Lungs are grossly clear and well expanded. No pleural effusion seen on this fron nellie film. Prior cholecystectomy noted with vascular clips in right upper quadrant. IMPRESSION: Cardiomegaly, no evidence of acute intrapulmonary process. RADIATION DOSE DELIVERED: Total DLP
[2020-09-16 21:50] LABS: ALT 20 U/L (14-59); AST 16 U/L (15-37); Albumin 3.6 g/dL (3.4-5.0); Alkaline Phosphatase 79 U/L (46-116); Anion Gap 8.1 mmol/L (3-11); BUN 29 mg/dL (7-18); Bilirubin, Total 0.3 mg/dL (0.2-1.0); CO2 27.9 mmol/L (21.0-32.0); CREATININE 1.1 mg/dL (0.55-1.02); Calcium 9.1 mg/dL (8.5-10.1); Chloride 105 mmol/L (98-107); Estimated GFR 48.96 (mL/min/1.73m2); Glucose 104 mg/dL (74-106); Potassium 4.4 mmol/L (3.5-5.1); Sodium 141 mmol/L (136-145); Total Protein 8.2 g/dL (6.4-8.2)
--- NOTE | 2020-09-16 21:59 | DI.VRAD_ITS ---
PROCEDURE INFORMATION: Exam: XR Chest Exam date and time: 09/16/2020 9:47 PM Age: 69 years old Clinical indication: Injury or trauma; Fall; Blunt trauma (contusions or hematomas) TECHNIQUE: Imaging protocol: XR of the chest Views: 1 view. COMPARISON: CR CHEST 2 VIEWS PA,LAT 09/29/2015 3:05 PM FINDINGS: Lungs: Lungs are clear. Pleural spaces: Unremarkable. No pleural effusion. No pneumothorax. Heart/Mediastinum: Unremarkable. No cardiomegaly. Bones/joints: Unremarkable. Organs: Prior cholecystectomy. IMPRESSION: 1. No acute fracture. 2. No acute cardiopulmonary abnormality. Dictated and Authenticated by: Pedro Funez MD. Ordering:JOESPH Jackson MD
[2020-09-16 22:34] LABS: Source Nasal/Nares
[2020-09-16] MEDS: Bupivacaine 0.25% Pres-Free 30 ML VIAL (23:18)
[2020-09-17] VITALS (10 sets, daily range): BP systolic 121–179; BP diastolic 72–88; PULSE 70–85; RESP 13–18; TEMP 36.2–37.2; O2SAT 92–97
[2020-09-17 00:35] LABS: COVID-19 PCR Negative (Negative)
[2020-09-17] MEDS: POTASSIUM CHLORIDE/D5-0.45NACL 1,000 ML 100 MEQ IV ×3 (02:10→17:51)
--- NOTE | 2020-09-17 02:11 | HPE_ITS ---
Date of service: 09/17/20 Time of Service: 02:11 Assessment and Plan Assessment and plan (1) Fracture of left hip: Status: Acute Assessment and plan: After course of orthopedics was consulted emergency room. Plan surgical repair tomorrow. Patient is NPO with oral medications with sips of water. Patient does not have great functional capacity, but I do not see a reason to postpone her surgery. Her EKG is reassuring. I am holding her aspirin until after surgery. (2) Chronic pain syndrome: Status: Chronic Assessment and plan: Patient is on chronic high-dose opioids for chronic pain related to osteoarthritis. She is also on several medications to manage the side effects of opioid including constipation and nausea. She got minimal relief with a nerve block in the emergency room, or 1 mg of hydromorphone IV. I will double her as needed IV dose given her tolerance to opioids. Could also consider a SOIL TECHNOLOGIST pump if we can control her pain. (3) Hypertension: Status: Chronic Assessment and plan: Continue amlodipine. Currently blood pressure elevated related to pain. No change in medication. (4) Anemia: Status: Chronic Assessment and plan: Mild, similar to baseline. (5) Chronic renal insufficiency, stage III (moderate): Status: Acute Assessment and plan: GFR around 50 is at her baseline. I am giving her maintenance fluids while she is NPO. (6) DVT prophylaxis: Status: Acute Assessment and plan: Chest SCDs for now surgery pending later this morning. Deferred postop DVT prophylaxis to surgery. (7) Discharge planning issues: Status: Acute Assessment and plan: Patient is currently stable on the medical floor pending surgery for her hip fracture. She is full code. History of Present Illness History of Present Illness Chief Complaint: Fall, hip pain Narrative: 69-year-old female with history of hypertension and chronic pain due to osteoarthritis on chronic opioids presented to emergency room after slipping and falling on her left hip with severe pain in that hip. Patient states she was carrying groceries up a ramp and slipped on snow and fell directly on her left hip. She immediately felt severe pain in that left hip and could not get back up to walk. She felt that her normal state of health before this. She has never had this sort of injury. She denies feeling lightheaded or getting any palpitations or chest pains associated with her fall. She did not hit her head. She states she typically is able to walk around the yard, but has not been walking much of the winter. Her activity is limited by her chronic pain. Review of Systems Constitutional Constitutional: Denies chills, Denies fever(s), Denies poor appetite, Denies weakness, Denies weight gain and Denies weight loss Eyes Eyes: Denies change in vision and Denies irritation ENT Ears, Nose, Mouth, and Throat: Denies dizziness, Denies nasal congestion, Denies nasal discharge and Denies sore throat Cardiovascular Cardiovascular: Denies chest pain, Denies palpitations, Denies dyspnea and Denies orthopnea Respiratory Respiratory: Denies cough, Denies excessive phlegm production, Denies dyspnea and Denies wheezing Gastrointestinal Gastrointestinal: Denies abdominal pain, Denies change in stool character, Reports constipation (Has bowel regimen), Denies heartburn, Denies diarrhea, Reports nausea (Chronic, takes Zofran as well as Marinol per report) and Denies vomiting Genitourinary Genitourinary: Denies hematuria and Denies dysuria Comments: No change in urination Musculoskeletal Musculoskeletal: Reports arthralgias (Chronic pain in neck, back, Knees, ankles) Integumentary/Breasts Skin/Breast: Denies rash and Denies skin ulcer Neurologic Neurologic: Denies dizziness, Denies sensory deficit and Denies weakness Psychiatric Psychiatric: Denies mood swings Endocrine Endocrine: Denies palpitations Hematologic/Lymphatic Hematologic/Lymphatic: Denies easy bleeding and Denies easy bruising Comments: No history of bleeding problems with surgery Allergic/Immunologic Allergic/Immunologic: Denies wheezing [facility] Medical History Osteoarthritis of right knee Steroid injection: 04/05/2020 Has had previous viscosupplementation injections. Surgical History History of back surgery Hx of cholecystectomy Social History (Updated 09/17/20 @ 02:17 by Oscar Mckoy) Smoking/Tobacco Use Status: Never Smoking risk assessment performed?: Yes Alcohol Intake: never Drug use: Never Do you feel safe at home: Yes Do you feel safe in your relationship?: Yes Additional Social history: Grew up in [place], still lives in family home in [facility], lives alone In [place], still lives with her family health in [facility]. Still lives in family all Meds Home Medications and Allergies Allergies Allergy/AdvReac Type Severity Reaction Status Date / Time morphine AdvReac Intermediate Psychosis Unverified 05/24/20 15:01 baclofen AdvReac Unknown Unverified 05/24/20 15:01 chlorthalidone AdvReac Unknown Unverified 05/24/20 15:01 codeine AdvReac Unknown Unverified 05/24/20 15:01 dextromethorphan AdvReac Unknown Unverified 05/24/20 15:01 gabapentin [From Neurontin] AdvReac Unknown Unverified 05/24/20 15:01 hydrochlorothiazide AdvReac Unknown Unverified 05/24/20 15:01 pregabalin AdvReac Unknown Dopey Unverified 05/24/20 15:01 Home Medications Medication Instructions Recorded Confirmed Type amlodipine 10 mg PO DAILY 05/19/14 05/24/20 History omeprazole 40 mg PO DAILY 05/19/14 05/24/20 History ondansetron HCl 4 mg PO DAILY PRN 05/19/14 05/24/20 History polyethylene glycol 3350 [Miralax] 15 ml PO DAILY PRN 05/19/14 05/24/20 History OxyContin 40 mg PO BID 05/29/15 05/24/20 History oxycodone 15 mg PO TID PRN 02/19/18 05/24/20 History Narcan 4 mg INTRANASAL Q3M PRN 01/05/20 05/24/20 History aspirin [Aspirin Low Dose] 81 mg PO DAILY 01/05/20 05/24/20 History cholecalciferol (vitamin D3) 25 mcg PO DAILY 01/05/20 05/24/20 History [Vitamin D3] lactulose 15 ml PO DAILY PRN PRN 01/05/20 05/24/20 History oxybutynin chloride 5 mg PO DAILY 01/05/20 05/24/20 History vitamin B complex 1 tab PO DAILY 01/05/20 05/24/20 History lorazepam [Ativan] 1 mg PO DAILY PRN #3 tab 02/23/20 05/24/20 Rx fluoxetine 40 mg capsule 40 mg PO DAILY cap 04/05/20 05/24/20 History melatonin 5 mg capsule mg PO HS cap 04/05/20 05/24/20 History Exam Narrative Exam Narrative: GEN: Alert and oriented, lying flat in bed and grimacing in discomfort, but pleasent and cooperative, gives linear history. HEENT: Head atraumatic. Conjunctiva clear, no icterus. PEERL, EOMI. no rhinorrhea. MMM, OP benign. Neck is supple with no masses or lymphadenopathy, trachea midline LUNGS: CTAB with normal effort CV: RRR with no murmurs, gallops, or rubs. Pedal pulses intact and symmetric ABD: +BS, soft, NT/ND EXT: no cyanosis, clubbing, or edema MSK: No joint redness or swelling. Left hip slightly externally rotated, I did not move it. NEURO: CN 2-12 grossly intact. Strength and sensation and feet intact bilaterally.. Normal speech and coordination SKIN: No rashs or open wounds. PSYCH: normal mood and affect Results Imaging Chest x-ray: report reviewed Additional studies: Left hip and pelvic x-rays: Left displaced femoral neck fracture. Osteoarthritis spine EKG: report reviewed and image reviewed (Normal sinus rhythm, normal axis intervals, no ischemic ST abnormalities) Labs Result diagrams: 09/16/20 21:30 09/16/20 21:30 Labs: Laboratory Results - last 24 hr 09/16/20 09/16/20 09/16/20 20:45 21:30 21:30 WBC 7.55 RBC 3.78 L Hgb 10.6 L Hct 32.5 L MCV 86.0 MCH 28.0 MCHC 32.6 RDW 13.8 Plt Count 248 MPV 9.7 Immature Gran % 0.5 Neutrophils % 75.4 Lymphocytes % 14.4 Monocytes % 9.0 Eosinophils % 0.3 Basophils % 0.4 Nucleated RBC % 0 Absolute Neutrophils 5.69 Absolute Lymphocytes 1.09 L Absolute Monocytes 0.68 Absolute Eosinophils 0.02 Absolute Basophils 0.03 Sodium 141 Potassium 4.4 Chloride 105 Carbon Dioxide 27.9 Anion Gap 8.1 BUN 29 H Creatinine 1.1 H Estimated GFR/1.73 m2 48.96 Glucose 104 Calcium 9.1 Total Bilirubin 0.3 AST 16 ALT 20 Alkaline Phosphatase 79 Total Protein 8.2 Albumin 3.6 Urine Color Yellow Urine Clarity Clear Urine pH 5.5 Ur Specific [place] 1.020 Urine Protein Negative Urine Ketones Negative Urine Blood Trace-intact H Urine Nitrite Negative Urine Bilirubin Negative Urine Urobilinogen 0.2 Ur Leukocyte Esterase Negative Urine RBC 0-2 Urine WBC 0-2 Ur Epithelial Cells Few Urine Crystals Negative Urine Bacteria Negative Urine Casts Negative Urine Mucus Negative Urine Other Negative Ur Culture Indicated? No Urine Glucose Negative COVID-19 Source SARS-CoV-2 (PCR) 09/16/20 22:30 WBC RBC Hgb Hct MCV MCH MCHC RDW Plt Count MPV Immature Gran % Neutrophils % Lymphocytes % Monocytes % Eosinophils % Basophils % Nucleated RBC % Absolute Neutrophils Absolute Lymphocytes Absolute Monocytes Absolute Eosinophils Absolute Basophils Sodium Potassium Chloride Carbon Dioxide Anion Gap BUN Creatinine Estimated GFR/1.73 m2 Glucose Calcium Total Bilirubin AST ALT Alkaline Phosphatase Total Protein Albumin Urine Color Urine Clarity Urine pH Ur Specific [place] Urine Protein Urine Ketones Urine Blood Urine Nitrite Urine Bilirubin Urine Urobilinogen Ur Leukocyte Esterase Urine RBC Urine WBC Ur Epithelial Cells Urine Crystals Urine Bacteria Urine Casts Urine Mucus Urine Other Ur Culture Indicated? Urine Glucose COVID-19 Source Nasal/nares SARS-CoV-2 (PCR) Negative Last Vital Signs Temp 36.8 C 09/17/20 00:19 Pulse 71 09/17/20 00:19 Resp 18 09/17/20 00:19 BP 162/76 H 09/17/20 00:19 Pulse Ox 93 09/17/20 00:19 COVID-19 Screening Have you, or household traveled for leisure in last 14 days?: No Had IN PERSON contact w/suspected or confirmed C-19 person: No
[2020-09-17] MEDS: HYDROmorphone 2 MG/ML VIAL IVP ×3 (02:43→09:54)
[2020-09-17] MEDS: Ondansetron 4 MG TAB PO (06:12)
--- NOTE | 2020-09-17 07:18 | OCONE_ITS ---
Assessment and Plan Assessment and plan (1) Fracture of left hip: Status: Acute Assessment and plan: 69-year-old female with displaced left femoral neck fracture Medical admission and optimization for surgery Anticipate surgery today: Left hip hemiarthroplasty N.p.o. and IV fluid Antibiotics on-call to the OR Will complete physical exam and informed consent later this morning Will discuss with primary medical team Qualifiers: Encounter type: initial encounter Fracture type: closed Qualified Code(s): S72.002A - Fracture of unspecified part of neck of left femur, initial encounter for closed fracture [facility] Medical History (Updated 09/17/20 @ 07:19 by Avi Renteria MD) Chronic pain syndrome Chronic renal insufficiency, stage III (moderate) Hypertension Osteoarthritis of right knee Steroid injection: 04/05/2020 Has had previous viscosupplementation injections. Surgical History History of back surgery Hx of cholecystectomy Social History (Updated 09/17/20 @ 02:17 by Oscar Mckoy) Smoking/Tobacco Use Status: Never Smoking risk assessment performed?: Yes Alcohol Intake: never Drug use: Never Do you feel safe at home: Yes Do you feel safe in your relationship?: Yes Additional Social history: Grew up in [place], still lives in family home in [facility], lives alone In [place], still lives with her family health in [facility]. Still lives in family all Results Last Vital Signs Temp 99.0 F 09/17/20 07:15 Pulse 85 09/17/20 07:15 Resp 15 09/17/20 07:15 BP 160/86 H 09/17/20 07:15 Pulse Ox 96 09/17/20 07:15 Labs Result diagrams: 09/16/20 21:30 09/16/20 21:30 Labs: Laboratory Results - last 24 hr 09/16/20 09/16/20 09/16/20 20:45 21:30 21:30 WBC 7.55 RBC 3.78 L Hgb 10.6 L Hct 32.5 L MCV 86.0 MCH 28.0 MCHC 32.6 RDW 13.8 Plt Count 248 MPV 9.7 Immature Gran % 0.5 Neutrophils % 75.4 Lymphocytes % 14.4 Monocytes % 9.0 Eosinophils % 0.3 Basophils % 0.4 Nucleated RBC % 0 Absolute Neutrophils 5.69 Absolute Lymphocytes 1.09 L Absolute Monocytes 0.68 Absolute Eosinophils 0.02 Absolute Basophils 0.03 Sodium 141 Potassium 4.4 Chloride 105 Carbon Dioxide 27.9 Anion Gap 8.1 BUN 29 H Creatinine 1.1 H Estimated GFR/1.73 m2 48.96 Glucose 104 Calcium 9.1 Total Bilirubin 0.3 AST 16 ALT 20 Alkaline Phosphatase 79 Total Protein 8.2 Albumin 3.6 Urine Color Yellow Urine Clarity Clear Urine pH 5.5 Ur Specific [place] 1.020 Urine Protein Negative Urine Ketones Negative Urine Blood Trace-intact H Urine Nitrite Negative Urine Bilirubin Negative Urine Urobilinogen 0.2 Ur Leukocyte Esterase Negative Urine RBC 0-2 Urine WBC 0-2 Ur Epithelial Cells Few Urine Crystals Negative Urine Bacteria Negative Urine Casts Negative Urine Mucus Negative Urine Other Negative Ur Culture Indicated? No Urine Glucose Negative COVID-19 Source SARS-CoV-2 (PCR) 09/16/20 22:30 WBC RBC Hgb Hct MCV MCH MCHC RDW Plt Count MPV Immature Gran % Neutrophils % Lymphocytes % Monocytes % Eosinophils % Basophils % Nucleated RBC % Absolute Neutrophils Absolute Lymphocytes Absolute Monocytes Absolute Eosinophils Absolute Basophils Sodium Potassium Chloride Carbon Dioxide Anion Gap BUN Creatinine Estimated GFR/1.73 m2 Glucose Calcium Total Bilirubin AST ALT Alkaline Phosphatase Total Protein Albumin Urine Color Urine Clarity Urine pH Ur Specific [place] Urine Protein Urine Ketones Urine Blood Urine Nitrite Urine Bilirubin Urine Urobilinogen Ur Leukocyte Esterase Urine RBC Urine WBC Ur Epithelial Cells Urine Crystals Urine Bacteria Urine Casts Urine Mucus Urine Other Ur Culture Indicated? Urine Glucose COVID-19 Source Nasal/nares SARS-CoV-2 (PCR) Negative
[2020-09-17] MEDS: FLUoxetine 20 MG CAP 40 MG PO (07:44)
[2020-09-17] MEDS: Vitamins B Comp w/C TAB 1 TAB PO (07:45)
[2020-09-17] MEDS: amLODIPine 10 MG TAB PO (07:45)
[2020-09-17] MEDS: Omeprazole 20 MG CAPCR 40 MG PO (07:45)
[2020-09-17] MEDS: Oxybutynin 5 MG TAB PO (07:45)
[2020-09-17] MEDS: oxyCODONE-CR 20 MG TABCR 40 MG PO ×2 (07:46→19:47)
[2020-09-17] MEDS: fentaNYL 100 MCG/2 ML VIAL 50 MCG IVP ×2 (12:29→14:21)
--- NOTE | 2020-09-17 12:39 | PHA.REVIEW ---
Pharmacy Admission Review - Admission Clinical Review (Last Updated 09/17/20 @ 02:29 by Oscar Mckoy) Discharge planning issues (Acute) DVT prophylaxis (Acute) Chronic renal insufficiency, stage III (moderate) (Acute) Fracture of left hip (Acute) morphine Adverse Reaction (Intermediate, Unverified 05/24/20 15:01) Psychosis baclofen Adverse Reaction (Unknown, Unverified 05/24/20 15:01) chlorthalidone Adverse Reaction (Unknown, Unverified 05/24/20 15:01) codeine Adverse Reaction (Unknown, Unverified 05/24/20 15:01) dextromethorphan Adverse Reaction (Unknown, Unverified 05/24/20 15:01) gabapentin [From Neurontin] Adverse Reaction (Unknown, Unverified 05/24/20 15:) hydrochlorothiazide Adverse Reaction (Unknown, Unverified 05/24/20 15:01) pregabalin Adverse Reaction (Unknown, Unverified 05/24/20 15:01) Dopey Height 5 ft 5 in Weight 70.4 kg - Renal Dosing Renal Dosing: BUN 29 mg/dL (7-18) H 09/16/20 21:30 Creatinine 1.1 mg/dL (0.55-1.02) H 09/16/20 21:30 Medications needing adjustments: Reviewed (Crcl ~42.2 mL/min, current meds okay) - Anticoagulation Anticoagulation: Hgb 10.6 g/dL (11.2-15.7) L 09/16/20 21:30 Hct 32.5 % (36.0-46.0) L 09/16/20 21:30 Plt Count 248 10^3/uL (130-400) 09/16/20 21:30 Creatinine 1.1 mg/dL (0.55-1.02) H 09/16/20 21:30 DVT Prohphylaxis: Reviewed (SCDs until surgery (anticipated for today), watch for meds postop pending anemia.) - Opiate Usage Evaluate Pain Scale/Pains Meds: Reviewed Scheduled Bowel Reg ordered if on Opiates?: No (has PRN med ordered ) - Relevant Labs Sodium 141 mmol/L (136-145) 09/16/20 21:30 Potassium 4.4 mmol/L (3.5-5.1) 09/16/20 21:30 Chloride 105 mmol/L (98-107) 09/16/20 21:30 Electrolytes, C-Reactive P, ESR: Reviewed - DM Control DM Control: Glucose 104 mg/dL (74-106) 09/16/20 21:30 Insulin Dosing: N/A - Heart Failure/[place] EF%, KALLI's, B-Blockers, Diuretics: N/A - BP Control BP Control: Blood Pressure 160/86 If elevated: Reviewed (BP has been elevated so far this admission, but is improving.) - Qtc Review If Elevated: N/A - IV to PO Switch IV Medications: Reviewed - Home Meds Home Med List reviewed: Reviewed (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
--- NOTE | 2020-09-17 12:42 | PDOC.CMIN ---
- If Service Date Differs Date of service: 09/17/20 Time of Service: 14:31 Care Management Initial Assess REASON FOR HOSPITALIZATION:: Left Hip Fracture, Fall PAST MEDICAL HISTORY/PAST SURGICAL HISTORY:: Osteoarthritis of right knee. Steroid injection: 04/05/2020. Has had previous viscosupplementation injections. History of back surgery. Hx of cholecystectomy PREVIOUS FUNCTIONAL STATUS/SOCIAL/FAMILY SUPPORTS:: Tegan resides alone in [place], with her three cats. Appears her son, Amor resides locally as well. She also has a daughter, Renetta listed who resides in [place], [place]. She had her first Covid vaccine in August at [facility] and has her 2nd one is scheduled for September 21, 2020. CURRENT FUNCTIONAL STATUS:: Tegan is scheduled for a hip fix today with Dr. Renteria, she will be evaluated post surgically for discharge planning considerations. ADVANCE DIRECTIVES:: Agent: Renetta-daughter. [id number]. Has patient been provided with info about the portal/API?: Yes Did the patient sign up for the portal?: Yes CODE STATUS:: Full Code INSURANCE COVERAGE / FINANCIAL ISSUES:: Medicare CURRENT HOME/COMMUNITY SERVICES/EQUIPMENT:: Raised toilet seat, ramp, grab bars, tub seat, cane, hand held shower, BIPAP. PRIMARY CARE PHYSICIAN:: Marixa Kurtz POTENTIAL DISCHARGE NEEDS:: Possible VNA [id number]. PATIENT/FAMILY EDUCATION NEEDS:: Review discharge instructions, discuss Ask Me Three. ANTICIPATED BARRIERS TO DISCHARGE:: None identified. TRANSPORTATION:: Dependent on disposition. PLAN:: Anticipate Tegan will discharge home with increased services or discharge to SNF for short rehab stay; dependent on post surgical evaluations by PT/OT. CM continues to follow.
--- NOTE | 2020-09-17 13:58 | CHAPLAIN ---
I had a brief visit with Tegna. She was waiting to go to surgery. I will try to check in with her later.
--- NOTE | 2020-09-17 14:15 | DI.RAD_ITS ---
EXAM: XR HIP LT IN OR CLINICAL HISTORY: LEFT HIP FRACTURE TECHNIQUE: 2D and realtime digital imaging was performed. COMPARISON: No exams were available for comparison FINDINGS: C-arm fluoroscopy was utilized by Dr. Paulino during placement of left hip prosthesis. Hard copies show good position of acetabular and femoral components. Fluoro time, 43.5 seconds. IMPRESSION: RADIATION DOSE DELIVERED: Total DLP
[2020-09-17] MEDS: Normal Saline Flush 10 ML SYR (14:25)
--- NOTE | 2020-09-17 14:29 | W.ORTHOCONSU ---
Date of service: 09/17/20 Time of Service: 14:29 History of Present Illness History of Present Illness Chief Complaint: Left femoral neck fracture Narrative: Tegan is a 69-year-old who I know from the office for polyarthralgias, specifically bilateral knee osteoarthritis. She had a fall yesterday and suffered a displaced femoral neck fracture of the left hip. Dr. Renteria is on-call and was initially consulted. Due to timing and availability he has for my assistance and I agreed to help out with the care of Tegan. Consult Reason Left femoral neck fracture Assessment and Plan Assessment and plan (1) Left displaced femoral neck fracture: Status: Acute Assessment and plan: Tegan is a 69-year-old who suffered a fall with a femoral neck fracture. This fracture is significantly displaced and I recommend operative fixation, as she previously discussed with Dr. Renteria. Given her age, of only 69 years, current recommendation would be to consider a total of arthroplasty. She does have other medical issues, however, the biggest 1 is her chronic joint pains which require, and had been treated with, chronic opiates. I do not know what prognosis portends for her future mortality risk or life expectancy, however, she enjoys being active and with the changes of some early arthritis on the left hip and her age of only 69 years, I would recommend a total hip arthroplasty. There is very little additional time required to do the procedure but it does carry some increased risk of dislocation, increased bleeding, and infection. I had a discussion with Tegan about the 2 options of hemiarthroplasty versus total hip arthroplasty. My recommendation would be for the total hip given the arthritis that she is started and has been her age and desire to be active. I reviewed the risk of the procedure to include bleeding, infection, pain, stiffness, dislocation, need for repeat procedures, implant loosening, blood clot, cardiopulmonary demise. Despite these risks, she elected to proceed. She has been cleared by the medicine team. We will use cefazolin for prophylactic antibiotics as well as tranexamic acid for blood loss control. [facility] Medical History (Updated 09/17/20 @ 14:31 by Jonathan Paulino MD) Chronic pain syndrome Chronic renal insufficiency, stage III (moderate) Hypertension Osteoarthritis of right knee Steroid injection: 04/05/2020 Has had previous viscosupplementation injections. Surgical History History of back surgery Hx of cholecystectomy Social History (Updated 09/17/20 @ 02:17 by Oscar Mckoy) Smoking/Tobacco Use Status: Never Smoking risk assessment performed?: Yes Alcohol Intake: never Drug use: Never Do you feel safe at home: Yes Do you feel safe in your relationship?: Yes Additional Social history: Grew up in [place], still lives in family home in [facility], lives alone In [place], still lives with her family health in [facility]. Still lives in family all Exam Narrative Exam Narrative: Tegan is laying on her right side mostly. Her left leg is shortened and externally rotated. No overlying signs of infection. Palpable PT pulse. She is able demonstrate some minimal movement of the toes. Sensation was difficult to assess due to her pain. Results Last Vital Signs Temp 37.2 C 09/17/20 07:15 Pulse 85 09/17/20 07:15 Resp 15 09/17/20 07:15 BP 160/86 H 09/17/20 07:15 Pulse Ox 96 09/17/20 07:15 Labs Result diagrams: 09/16/20 21:30 09/16/20 21:30 Labs: Laboratory Results - last 24 hr 09/16/20 09/16/20 09/16/20 20:45 21:30 21:30 WBC 7.55 RBC 3.78 L Hgb 10.6 L Hct 32.5 L MCV 86.0 MCH 28.0 MCHC 32.6 RDW 13.8 Plt Count 248 MPV 9.7 Immature Gran % 0.5 Neutrophils % 75.4 Lymphocytes % 14.4 Monocytes % 9.0 Eosinophils % 0.3 Basophils % 0.4 Nucleated RBC % 0 Absolute Neutrophils 5.69 Absolute Lymphocytes 1.09 L Absolute Monocytes 0.68 Absolute Eosinophils 0.02 Absolute Basophils 0.03 Sodium 141 Potassium 4.4 Chloride 105 Carbon Dioxide 27.9 Anion Gap 8.1 BUN 29 H Creatinine 1.1 H Estimated GFR/1.73 m2 48.96 Glucose 104 Calcium 9.1 Total Bilirubin 0.3 AST 16 ALT 20 Alkaline Phosphatase 79 Total Protein 8.2 Albumin 3.6 Urine Color Yellow Urine Clarity Clear Urine pH 5.5 Ur Specific [place] 1.020 Urine Protein Negative Urine Ketones Negative Urine Blood Trace-intact H Urine Nitrite Negative Urine Bilirubin Negative Urine Urobilinogen 0.2 Ur Leukocyte Esterase Negative Urine RBC 0-2 Urine WBC 0-2 Ur Epithelial Cells Few Urine Crystals Negative Urine Bacteria Negative Urine Casts Negative Urine Mucus Negative Urine Other Negative Ur Culture Indicated? No Urine Glucose Negative COVID-19 Source SARS-CoV-2 (PCR) 09/16/20 22:30 WBC RBC Hgb Hct MCV MCH MCHC RDW Plt Count MPV Immature Gran % Neutrophils % Lymphocytes % Monocytes % Eosinophils % Basophils % Nucleated RBC % Absolute Neutrophils Absolute Lymphocytes Absolute Monocytes Absolute Eosinophils Absolute Basophils Sodium Potassium Chloride Carbon Dioxide Anion Gap BUN Creatinine Estimated GFR/1.73 m2 Glucose Calcium Total Bilirubin AST ALT Alkaline Phosphatase Total Protein Albumin Urine Color Urine Clarity Urine pH Ur Specific [place] Urine Protein Urine Ketones Urine Blood Urine Nitrite Urine Bilirubin Urine Urobilinogen Ur Leukocyte Esterase Urine RBC Urine WBC Ur Epithelial Cells Urine Crystals Urine Bacteria Urine Casts Urine Mucus Urine Other Ur Culture Indicated? Urine Glucose COVID-19 Source Nasal/nares SARS-CoV-2 (PCR) Negative Imaging Imaging Studies: X-ray of the left hip and femur demonstrates a subcapital femoral neck fracture with notable displacement and shortening. There are some initial indications of arthritis about the left hip with some subchondral sclerosis and particular osteophyte seen at its margin.
[2020-09-17] MEDS: Lactated Ringers 1,000 ML 30 ML IV (15:00)
--- NOTE | 2020-09-17 15:24 | NUR.NOTE ---
Nursing Note: Patient was given pain medication at 1420 prior to procedure, she was taken to the pacu at 1446, report was given to the receiving nurse and questions were answered to her satisfaction. Attempted to update the daughter, however the phone number provided went to a full mailbox
[2020-09-17] MEDS: Ketorolac 30 MG/ML VIAL (16:15)
[2020-09-17] MEDS: Bupivacaine 0.25% Pres-Free 30 ML VIAL (16:15)
--- NOTE | 2020-09-17 16:45 | ROE_ITS ---
Date of service: 09/17/20 Time of Service: 16:45 Operative Note Operative Note DATE OF PROCEDURE: 09/17/20 PRE-OP DIAGNOSIS: Left Femoral Neck Fracture POST-OP DIAGNOSIS: same PROCEDURE: Left Anterior Total Hip Arthroplasty SURGEON: Jonathan Paulino ASSISTING SURGEON: Avi Renteria PERFORMANCE CONSULTANT: Adelita Singh ANESTHESIA TYPE: Spinal Refer to Anesthesia Record ESTIMATED BLOOD LOSS: 150 PATHOLOGY: none sent COMPLICATIONS: None Patient was transported to: PACU Patient's condition: stable Implants: 1. Depuy Stock[place] Acetabular Component, 48mm 2. Depuy Acetabular Liner, 09y33pt 3. Depuy Corail Standard Collared Femoral Stem, Size 11 4. Depuy Altrx Ceramic Femoral Head, Size 32+1mm Indications: Tegan had a fall yesterday. She presented to the emergency department and was diagnosed with a displaced subcapital femoral neck fracture. She was seen by Dr. Renteria and I was asked to assist in the management of her care and the fracture. I discussed treatment options with Tegan and I recommended a total hip arthroplasty given the displaced nature of the fracture, her active functional pursuits, and her age of 69. She does have other medical comorbidities but the potential for secondary acetabular wear in the next 8 to 10 years pushes me towards recommendation of a hip replacement. After reviewing these treatment options, she agreed to proceed with a hip replacement. I explained the risks of the procedure to include, but not limited to, bleeding, infection, pain, stiffness, fracture, damage to nerves and vessels, damage to muscles and tendons, loosening, instability, leg length inequality, need for repeat procedure, blood clot and cardiopulmonary demise. Despite these risks, Tegan elected to proceed. Given the complexity of the fracture and the need for assistance of manipulation of the leg and instrumentation, I requested the assistance of Dr. Renteria as well as Adelita Singh until Dr. Renteria was available. Findings: There was a completely displaced femoral neck fracture. There is some mild comminution at the fracture site. The acetabulum did show wear superiorly with at least grade 3 changes of the superior acetabular chondral surface. A cementless hip replacement was placed without difficulty Procedure Description: Tegan was seen upstairs in her hospital room where the correct side was identified and marked. The consent was reviewed with the patient and signed. All questions were answered. Tegan was taken back to the operating room. A spinal anesthestic was then administered. The feet were wrapped with cast padding and Coban and then placed into the boot liners and then into the boots. Care was taken to protect the skin and make sure the heels were fully down and the boots were stable. The patient was then positioned onto the HANA table. Both legs were held in a neutral position. SCDs were applied. The patient was then slid down onto a peroneal post. Prophylactic antibiotics in the form of cefazolin were administered. 1g of Tranxemic Acid was given intravenously within 30 minutes of incision. The left leg was then prepped with Chloraprep and draped in a standard fashion. A second prep with Chloraprep was performed prior to placement of a shower-curtain type drape with Iodine impregnated skin protection. A timeout to confirm correct identity, side and site, procedure, allergies, anesthesia, and medical concerns was performed. An obliquely oriented incision was made starting lateral to the ASIS and running distal over the Tensor Fascia Corazon (TFL) muscle belly toward the fibular head, approximately 10cm. The skin and soft tissue was dissected sharply, through Sanjay?s fascia, and to the fascia of the TFL. With the fascia and superior border of the IT band identified, the fascia was incised with a new knife just above any perforators from the IT band. The TFL muscle belly was bluntly dissected away from the fascia and moved laterally. The fat between TFL and rectus was identified to ensure the dissection was not within the TFL. Blunt dissection created space between abductors and the capsule and retractor was placed over the lateral femoral neck. The fibers of the rectus femoris tendon were identified and these were freed from the anterior capsule. A second cobra retractor was placed around the medial femoral neck. The TFL was further retracted laterally to show the deep fascia. Careful dissection through this layer identified three main crossing vessels of the lateral femoral circumflex. These were cauterized in multiple locations and then cut without any noticeable bleeding. The TFL was further released bluntly from the deep fascia to expose anterior hip capsule and fat the Heber orthopaedic retractor was then placed beneath the TFL and against sartorius and medial soft tissues to protect and retract the soft tissues. A T-capsulotomy was then performed starting at the superior lateral acetabulum and moving distally to the intertrochanteric ridge. These capsular flaps were tagged with a No. 1 Ethibond and elevated from within. The capsular flaps were released to the shoulder of the lateral neck and to the lesser trochanter to give excellent visualization of the proximal femur. There was a mishra of hematoma which was evacuated. The fracture line was visible quite proximally at the level of the femoral head cartilage. I left the head in place and proceeded with a neck osteotomy based on preoperative templating. A neck osteotomy was performed using an oscillating saw based on preoperative templates. This cut started in the shoulder and of the lateral neck and exited medially. The saw was at all times directed medially to avoid injury to the greater trochanter. Gross traction was applied to the leg and the osteotomy opened. The neck remnant was removed. Then the femoral head was removed with a corkscrew, making sure to protect the TFL on its exit. Traction was released after head removal. This was measured on the back table to determine the starting reamer size. Portions of the rectus obscuring visualization were minimally elevated off the superior acetabulum. An anterior retractor was placed over the anterior wall between capsule and labrum and attached to the Gripper retraction system. The femur was rotated to 60 and then 90 degrees and medial capsule was fully released until the lesser trochanter was palpable and visible and palpable; the femur was returned to 30 degrees. A posterior retractor was placed similarly between capsule and labrum. This provided excellent visualization. The contents of the cotyloid fossa were removed with electrocautery and the labrum was removed with a knife. There was significant chondromalacia of the superior acetabulum. Acetabular reaming began with a 44 mm reamer. This first reaming was directed anterior to posterior and medial to get down to the true floor. This was inspected and reamed until the true floor was reached. The anterior retractor was then released and entry and exit was provided by traction on the capsular flaps. I then reamed sequentially up to a 47 mm reamer where good fit was obtained. The larger reamers were oriented based on anatomical reference of the anterior and lateral novoa to ensure proper abduction and anteversion. Positioning and size was confirmed with the fluoroscopy. A 48 mm Depuy Stock[place] acetabular component was selected. The deep tissues were irrigated. The acetabular component was then impacted in a position of about 40-45 degrees of abduction and 15-20 degrees of anteversion, using the patient?s anatomy as the ultimate landmark. Fluoroscopy was used to confirm this. There was excellent shuttle van driver of the acetabular component and the inserting handle was removed. The acetabular liner, Depuy 48x32 mm polyethylene liner, was inserted and lined up with the tines of the acetabular component. There was no soft tissue interposition. The liner was then impacted into position and confirmed to be well-seated. A portion of the melecio-articular cocktail was then injected around the acetabulum into the capsule and periosteum. This cocktail consisted of 50cc of 0.25% Bupivicaine and 20cc of Exparel and 30mg of Ketorolac. The leg was rotated to 120 degrees. Any remaining medial capsule was released until the lesser trochanter was easily palpable. A retractor was placed medially. The lateral capsule was further released into the shoulder to allow access to the greater trochanter. A Flores retractor was placed over the greater trochanter which allowed the trochanter to flip in front of the capsule for excellent exposure. The leg was brought down into maximal extension and 20 degrees of adduction while ensuring there was no impingement on the acetabulum. Any remnant capsule within the trochanter was released. Piriformis and obturator externis were identified and protected. There was excellent access to the proximal femur. The lateral neck remnant was removed with a rongeur. A blunt canal probe was used to identify the canal and trajectory for later broaching. A box osteotome initiated the broach course. A small curved rasp and a curved curette were used to work laterally. Broaching then began with a size 8 Corail broach. This was inserted manually around the trochanter and into the canal before mallet blows. The broach was seated to a few millimeters below the cut level based on the neck cut and the preoperative template. Sequential broaching was continued until a tight fit was obtained with good rotational control of the femur. A trial standard neck was inserted along with a +1 trial head. The leg was brought out of extension and adduction and then reduced with traction and internal rotation. The leg was stable anteriorly in a position of 30 degrees of extension and 90 degrees of external rotation. Fluoroscopy was used to ensure there was no fracture and the stem was seated well. Leg lengths were checked with an AP pelvis and pelvic reference points using an alignment ivett. Once content with the desired offset and leg lengths, the leg was brought back into extension, external rotation and adduction. The periosteum and surrounding tissue was injected with remaining portion of the melecio-articular cocktail. The proximal femur was irrigated as well as the deep tissues. The Depuy Corail standard collared stem, size 11, was then manually inserted into the proximal femur making sure to control rotation. It was then malleted into position with light blows, giving breaks to allow bone expansion and decrease risk of fracture. The selected Depuy Altrx Ceramic Head, size 32+1mm, was then placed onto the clean and dry trunnion and secured with impaction onto the tapered fit. The leg was brought back out of extension and adduction and reduced with traction and internal rotation. Stability was confirmed with no shuck at 90 degrees of external rotation and 30 degrees of extension. No impingement through range of motion arc. Final x-ray images were obtained with fluoroscopy to confirm adequate positioning and no intraoperative fracture. The deep tissues were thoroughly irrigated with Irrisept chlorhexadine solution. The capsule was then reapproximated with the previously placed Ethibond sutures. The TFL fascia was finally closed with a No. 2 Stratafix, barbed suture. Deep tissues were then reapproximated with 0 Vicryl and a running 2-0 Vicryl. The skin was closed with a running 4-0 Monocryl in a subcuticular fashion. This was reinforced with skin glue. A Mepilex silver dressing was applied. At the end of the case, all counts were correct. Tegan was transferred to the hospital bed without difficulty and suffering no apparent complication. Tegan has a good prognosis. Physical therapy will start without restrictions, weight-bearing as tolerated. Lovenox 40 mg daily may be used for anticoagulation, transitioning to aspirin 81 mg twice daily upon discharge. She has no positional nor weightbearing restrictions. She may start weightbearing as tolerated with an assistive device. Mepilex silver dressing may stay in place for up to 2 weeks as long as it is not soiled.
--- NOTE | 2020-09-17 18:52 | NUR.NOTE ---
Nursing Note: tried on two other occassions to reach out to the daughter, even with a phone number provided by the patient. Son called, in I was able to update him
[2020-09-17] MEDS: ceFAZolin 1 GM/50 ML BAG IVPB (19:48)
[2020-09-17] MEDS: Melatonin 3 MG TAB 6 MG PO (21:26)
[2020-09-18] VITALS (7 sets, daily range): BP systolic 150–169; BP diastolic 76–89; PULSE 62–90; RESP 14–18; TEMP 36.6–37.6; O2SAT 96–98
--- NOTE | 2020-09-18 | DI.RAD_ITS ---
EXAM: XR ELBOW LT COMPLETE CLINICAL HISTORY: Pain s/p fall TECHNIQUE: COMPARISON: No exams were available for comparison FINDINGS: Three views were obtained. There is a probable elbow joint effusion with elevation of the anterior h umeral fat pad noted. There are degenerative changes of the joints of the elbow. No gross fracture identified, however the presence of a joint effusion would raise the possibility of an occult fractur e. IMPRESSION: Elbow joint effusion without obvious fracture, follow-up radiographs or CT may be considered for furt her evaluation to rule out occult fracture. RADIATION DOSE DELIVERED: Total DLP
[2020-09-18] MEDS: ceFAZolin 1 GM/50 ML BAG IVPB ×2 (03:45→12:12)
[2020-09-18] MEDS: oxyCODONE 15 MG TAB PO (03:49)
[2020-09-18] MEDS: POTASSIUM CHLORIDE/D5-0.45NACL 1,000 ML 100 MEQ IV (03:57)
[2020-09-18] MEDS: Polyethylene Glycol 3350 17 GM PACKET PO (08:21)
[2020-09-18] MEDS: FLUoxetine 20 MG CAP 40 MG PO (08:22)
[2020-09-18] MEDS: Omeprazole 20 MG CAPCR 40 MG PO (08:22)
[2020-09-18] MEDS: Enoxaparin 40 MG/0.4 ML SYR SC (08:23)
[2020-09-18] MEDS: Vitamins B Comp w/C TAB 1 TAB PO (08:24)
[2020-09-18] MEDS: oxyCODONE-CR 20 MG TABCR 40 MG PO ×2 (08:24→20:46)
[2020-09-18] MEDS: Oxybutynin 5 MG TAB PO (08:24)
[2020-09-18] MEDS: amLODIPine 10 MG TAB PO (08:24)
--- NOTE | 2020-09-18 09:53 | W.PM.PROGNOT ---
Date of Service Date of service: 09/18/20 Time of Service: 09:53 Assessment and Plan Assessment and plan (1) Left displaced femoral neck fracture: Status: Acute Assessment and plan: 69-year-old female postop day #1 status post left anterior total hip arthroplasty for displaced femoral neck fracture. Doing quite well early in her recovery. Left lower extremity weightbearing as tolerated with assist device Physical therapy Out of bed Pain control- multimodal SCDs while in bed and JOSE DAVID hose bilateral lower extremity Recommend continuing Lovenox for DVT prophylaxis while inpatient and then 81 mg ASA twice daily for 30 days on discharge as outpatient Keep dressing in place and clean and dry until follow-up. Reinforce superior margin of dressing as needed with Tegaderm. Anticipate discharge home in 1-2 nights with health services including physical therapy as needed Follow-up outpatient at [facility] in 2-3 weeks Postoperative care discussed with primary medical team and nursing staff Call me directly if any questions or concerns (2) Left elbow contusion: Status: Acute Assessment and plan: Left elbow x-rays ordered, but suspect contusion with worsening of chronic pain. May continue full use of the left upper extremity. Recommend ice and elevation as needed for comfort. Will follow up x-rays later today Qualifiers: Encounter type: initial encounter Qualified Code(s): S50.02XA - Contusion of left elbow, initial encounter Subjective Subjective Interval history since last seen: Feeling greatly improved. States she slept well for the majority of the night. Still feels left elbow was injured with worsening of baseline chronic pain. Complains of mild altered sensation about the left leg. Denies any significant chest pain, shortness of breath, headache, nausea or vomiting. Exam Narrative Exam Narrative: Working with physical therapy upright in bed then walking. No significant discomfort or distress. Overall, appears quite comfortable with excellent pain control-greatly improved compared with yesterday preop. Mepilex bandage clean, dry, and intact except for slight roll under pannus, which will be reinforced with Tegaderm after physical therapy All thigh compartments soft. Sensation intact about thigh including LFCN distribution. Demonstrates intact hip flexion and knee extension and flexion strength against resistance Strong 5/5 foot and toe extension and plantar flexion. No foot drop. Vague mildly diminished sensation about anterior lateral leg below the knee. Intact sensation about the foot and ankle. Left elbow with no edema, ecchymosis, or deformity Demonstrates slow and guarded, but full range of motion about the elbow including flexion, extension, supination, and pronation. Moderately tender about olecranon process Objective Last Vital Signs Temp 99.5 F 09/18/20 07:23 Pulse 80 09/18/20 07:23 Resp 17 09/18/20 07:23 BP 160/89 H 09/18/20 07:23 Pulse Ox 96 09/18/20 07:23
[2020-09-18 09:55] LABS: Abs Immature Grans 0.06 10^3/uL (0.0-0.06); Absolute Basophil Count 0.02 10^3/uL (0.0-0.2); Absolute Monocyte Count 1.61 10^3/uL (0.1-0.8); Basophils % 0.1; HCT 30.4 % (36.0-46.0); HGB 9.9 g/dL (11.2-15.7); Immature Grans % 0.4; Lymphocytes % 5.2; MCH 28.2 pg (27.0-33.0); MCHC 32.6 % (32.0-36.0); MCV 86.6 fL (80-95); MPV 9.9 fL (8.0-11.0); Monocytes % 9.9; Neutrophils % 84.4; Nucleated RBC 0 %; RBC 3.51 10^6/uL (3.93-5.22); RDW 14.1 % (11.7-14.6); RDW-SD 44.5 fL
[2020-09-18 10:02] LABS: Absolute Lymphocyte Count 0.85 10^3/uL (1.2-3.4); Absolute Neutrophil Count 13.76 10^3/uL (1.2-6.7)
[2020-09-18 10:03] LABS: Anion Gap 7.9 mmol/L (3-11); BUN 24 mg/dL (7-18); CO2 25.1 mmol/L (21.0-32.0); CREATININE 1.2 mg/dL (0.55-1.02); Calcium 8.8 mg/dL (8.5-10.1); Chloride 104 mmol/L (98-107); Estimated GFR 44.29 (mL/min/1.73m2); Glucose 141 mg/dL (74-106); Magnesium 1.8 mg/dL (1.8-2.4); Potassium 4.4 mmol/L (3.5-5.1); Sodium 137 mmol/L (136-145)
[2020-09-18 10:19] LABS: Diff Comment Agrees w/ Instrument; Platelet Count 238 10^3/uL (130-400); Poikilocytes 1+
--- NOTE | 2020-09-18 10:31 | PDOC.CMPRO ---
- If Service Date Differs Date of service: 09/18/20 Time of Service: 10:31 Care Management Progress Note S/O: Tegan is recovering nicely from hip surgery. A chart review reveals that her pain is well managed on current pain medication regimen. She had a physical therapy evaluation today and the recommendation is that Tegan return home with assistance. If Tegan continues to improve, she may be discharging home tomorrow. A: Tegan is a 69 year old female admitted to [facility] on 09/16/2020 for a left hip fracture status post fall. P: No change in plan. Anticipate Tegan will discharge home with new Home Health PT Services when medically cleared by provider. Her daughter will drive her home via private vehicle when ready. CM will continue to follow.
--- NOTE | 2020-09-18 10:41 | PT.INIE ---
Date of service: 09/18/20 Time of Service: 09:05 PT Notes Visit Reasons: LEFT HIP FRACTURE, FALL Physical Therapy Inpatient Initial Evaluation Date: 09/18/20 Referring Doctor: Jonathan Akins MD PT Orders: PT CONSULT: s/p ortho surgery, s/p L Anterior NOVA Precautions: Fall. Standard. Anterior hip precautions. Patient Profile/Admitting Diagnosis: Tegan is a 69 yo female that presented to the ER on 09/18/20 after a fall on her ramp while taking in groceries. The fall resulted in left hip fracture and left NOVA with anterior approach was performed on 09/17/20. PMHX: (Updated 09/17/20 @ 14:31 by Jonathan Paulino MD) Chronic pain syndrome Chronic renal insufficiency, stage III (moderate) Hypertension Osteoarthritis of right knee, Steroid injection: 04/05/2020, Has had previous viscosupplementation injections. History of back surgery Hx of cholecystectomy Social History/Home Situation: Lives alone in single level home with ramp to enter. Daughter is available to assist. Ambulates with 2 canes. Equipment Owned/DME: 2 canes, 4WW Subjective: Cleared by nursing to see patient and patient is agreeable to PT. Patient is resting supine in bed at time of consult with levi catheter and IV in place. Objective: General Observation: Patient is resting comfortably Mental Status: A&O x3 Pain: 5/10 in left lateral hip and left elbow ROM: Right Upper Extremity: Shoulder Flexion WFL. Shoulder abduction WFL. Elbow flexion WFL. Wrist flexion WFL. Opening and closing of hand WFL. Left Upper Extremity: Shoulder Flexion WFL. Shoulder abduction WFL. Elbow flexion WFL. Wrist flexion WFL. Opening and closing of hand WFL. Right Lower Extremity: Hip flexion WFL. Hip abduction WFL. Knee flexion WFL. Ankle dorsiflexion WFL. Ankle plantarflexion WFL. Left Lower Extremity: Hip flexion WFL. Hip abduction WFL. Knee flexion WFL. Ankle dorsiflexion WFL. Ankle plantarflexion WFL. Strength: Right Upper Extremity: Shoulder flexors 5/5. Shoulder abductors 5/5. Elbow flexors 5/5. Elbow extensors 5/5. Desktop Publishing Specialist strong. Left Upper Extremity: Shoulder flexors 5/5. Shoulder abductors 5/5. Elbow flexors 5/5. Elbow extensors 5/5. Desktop Publishing Specialist strong. Right Lower Extremity: Hip flexors 5/5. Hip abductors 5/5. Knee flexors 5/5. Knee extensors 5/5. Ankle dorsiflexors 5/5. Ankle plantarflexors 5/5. Left Lower Extremity:Hip flexors 2/5. Hip abductors 2/5. Knee flexors 5/5. Knee extensors 5/5. Ankle dorsiflexors 5/5. Ankle plantarflexors 5/5. Sensation: Intact as to pain and pressure on bilateral lower extremities, diminished left distal leg compared to right. Bed Mobility/Transfers: Supine to sit mod A Sit to stand mod A Stand to sit min A Chair to bed mod A to get back far enough Gait: Ambulated 10 ft in room with FWW and CGA Balance: Static Sitting: Good Dynamic Sitting: Fair Static Standing: Good Dynamic Standing: Fair Therapeutic Exercise: Instructed patient in ankle pumps, quad sets, glut sets, heel slides, supine hip abduction, and NOVA anterior approach precautions. Special Tests: Mobility Limitations Standardized Measure [facility] AM-PAC 6 clicks Basic Mobility Inpatient Short Form: Raw Score: 11 CMS Score: 72.57 Informed Consent/Education: Patient instructed in purpose of PT consult and plan of care. Assessment: Patient presents with clinical signs and symptoms consistent with current/admitting diagnoses that have resulted to mobility limitations, gait instability, generalized weakness, and impairment of motor control as demonstrated by the following impairment level findings: 1. Decreased strength to left hip major muscle groups 2. Impaired sitting/standing balance 3. Impaired activity tolerance 4. Limitation of joint range of motion in left hip Impairments are contributing to the following functional limitations: 1. Increased dependence with bed mobility skills 2. Increased dependence with transfers 3. Inability to safely ambulate without assistive device and physical assistance 4. Increase completion time for mobility ADL performance 5. Increased fall risk 6. Inability to negotiate steps alone safely She needs increased assistance with bed mobility to get sitting edge of bed as well as with sit to stand. Tolerates adequate weight in left LE and is able to ambulate in room with good balance and control. She does report ongoing left elbow pain that is more prominent than the left hip pain. Patient is left in care of nursing sitting up in chair with bed alarm in place. Patient is assessed as a Moderate complexity based on the following: History: Tegan is a 69-year-old female with impairment level findings, functional limitations, and past medical history as indicated above Examination: Demonstrable impairment in strength, balance, and mobility level with underlying impairments and functional limitations as documented above Presentation: Evolving Decision Making: Moderate complexity Goals: Goals x1 week 1. Supine-Sit independent 2. Sit-Supine independent 3. Sit-Stand independent 4. Stand-Sit independent 5. Bed-Chair independent 6. Chair-Bed independent 7. Independent gait on level surface with use of least restrictive device for at least 300 feet without report of pain nor dyspnea 8. Independent stair negotiation while holding onto bilateral rails for at least 10 steps without report of pain nor dyspnea 9. Independent with home exercise program 10. Good static and dynamic standing balance/tolerance Plan of Care/Treatment Plan: 1-2x/day, 7 days/week x 1 week. Plan of care has been reviewed with the MORPHOLOGY TEACHER providing the service under Physical Therapy direction. Initiate Physical Therapy intervention for strengthening, bed mobility, transfers, gait, stairs, balance training, use of assistive device. DISCHARGE RECOMMENDATIONS: Home with assist TREATMENT CODE/TIME: 9:05-9:57 (52 minutes), [id number], [id number], [id number] Thank you for the opportunity to participate in the care of this patient. Alissa Zamorano, PT, DPT, OCS [facility] [place], [place]
--- NOTE | 2020-09-18 11:00 | DI.VRAD_ITS ---
PROCEDURE INFORMATION: Exam: XR Left Elbow Exam date and time: 09/18/2020 10:33 AM Age: 69 years old Clinical indication: Injury or trauma; Fall; Fracture, traumatic injury; Closed fracture; Elbow; Left TECHNIQUE: Imaging protocol: XR Left elbow. Views: 3 or more views. COMPARISON: No relevant prior studies available. FINDINGS: Bones/joints: Small elbow effusion. Mild hypertrophic change Tiny olecranon spur. Cortical prominence medial humeral epicondyle consistent with chronic epicondylitis. Soft tissues: Normal. IMPRESSION: 1. Left elbow effusion and degenerative arthritis. No visible fracture. CT would be helpful in further evaluation. Dictated and Authenticated by: Shala Benavides MD. Ordering:GIL Cárdenas MD
[2020-09-18] MEDS: oxyCODONE 10 MG TAB 20 MG PO (13:12)
--- NOTE | 2020-09-18 14:21 | W.PM.PROGNOT ---
Date of Service Date of service: 09/18/20 Time of Service: 14:22 Assessment and Plan Assessment and plan (1) Fracture of left hip: Start date: 09/18/20 Start time: 14:30 Status: Acute Assessment and plan: POD 1 doing well. Sitting up in chair. Ambulatory in HW. PT recommend home with assistance Hawkins dcd Possible discharge home tomorrow Pain is tolerable and patient looks comfortable. Will discharge home on BID aspirin per ortho with f/u Qualifiers: Encounter type: initial encounter Fracture type: closed Qualified Code(s): S72.002A - Fracture of unspecified part of neck of left femur, initial encounter for closed fracture (2) Chronic pain syndrome: Start date: 09/18/20 Start time: 14:32 Status: Chronic Assessment and plan: Pain is tolerable at this time. Will continue home dosing with increase in PRN due to surgery, IV PRN for break through, will send home with 20 tabs of prn oxycodone due to higher pain tolerance from chronic pain syndrome (3) Hypertension: Start date: 09/18/20 Start time: 14:37 Status: Chronic Assessment and plan: Continue amlodipine. Currently blood pressure elevated related to pain. No change in medication Will continue to monitor. (4) Anemia: Start date: 09/18/20 Start time: 14:38 Status: Chronic Assessment and plan: Mild, similar to baseline. Expected to be lower at this time due to surgery will check in am Stable. (5) Chronic renal insufficiency, stage III (moderate): Start date: 09/18/20 Start time: 14:38 Status: Acute Assessment and plan: GFR around 50 is at her baseline. Fluids dcd. Tolerating diet. (6) DVT prophylaxis: Start date: 09/18/20 Start time: 14:38 Status: Acute Assessment and plan: Enoxaparin until discharge (7) Discharge planning issues: Start date: 09/18/20 Start time: 14:39 Status: Acute Assessment and plan: Possible discharge home with PT tomorrow. above case discussed with Dr. Hood Subjective Subjective Patient reports: feels better Interval history since last seen: POD 1. Doing well. Pain is tolerable. She has been ambulating in the HW. Hawkins Dcd. IVF dcd. Eating and drinking without difficulty, H/H stable. Possible discharge home tomorrow with home health PT. Exam Narrative Exam Narrative: GEN: Alert and oriented, sitting up in chair smiling pleasent and cooperative, gives linear history. HEENT: Head atraumatic. Conjunctiva clear, no icterus. PEERL, EOMI. no rhinorrhea. MMM, OP benign. Neck is supple with no masses or lymphadenopathy, trachea midline LUNGS: CTAB with normal effort CV: RRR with no murmurs, gallops, or rubs. Pedal pulses intact and symmetric ABD: +BS, soft, NT/ND EXT: no cyanosis, clubbing, or edema MSK:Surgical drsg on hip c/d/i NEURO: CN 2-12 grossly intact. Strength and sensation and feet intact bilaterally.. Normal speech and coordination SKIN: No rashs or open wounds. PSYCH: normal mood and affect Objective Last Vital Signs Temp 37.0 C 09/18/20 11:10 Pulse 90 09/18/20 11:10 Resp 17 09/18/20 11:10 BP 150/86 H 09/18/20 11:10 Pulse Ox 96 09/18/20 11:10 Laboratory Results - last 24 hr 09/18/20 09/18/20 09:40 09:40 WBC 16.30 H RBC 3.51 L Hgb 9.9 L Hct 30.4 L MCV 86.6 MCH 28.2 MCHC 32.6 RDW 14.1 Plt Count 238 MPV 9.9 Immature Gran % 0.4 Neutrophils % 84.4 Lymphocytes % 5.2 Monocytes % 9.9 Eosinophils % 0.0 Basophils % 0.1 Nucleated RBC % 0 Absolute Neutrophils 13.76 H Absolute Lymphocytes 0.85 L Absolute Monocytes 1.61 H Absolute Eosinophils 0.00 Absolute Basophils 0.02 RBC Morphology See below Poikilocytosis 1+ Sodium 137 Potassium 4.4 Chloride 104 Carbon Dioxide 25.1 Anion Gap 7.9 BUN 24 H Creatinine 1.2 H Estimated GFR/1.73 m2 44.29 Glucose 141 H Calcium 8.8 Magnesium 1.8
[2020-09-18] MEDS: HYDROmorphone 2 MG/ML VIAL 4 MG IVP (15:49)
[2020-09-18] MEDS: Melatonin 3 MG TAB 6 MG PO (21:15)
[2020-09-19 01:29] VITALS: O2SAT 97
[2020-09-19 01:31] VITALS: RESP 14
[2020-09-19] MEDS: oxyCODONE 10 MG TAB 20 MG PO ×3 (04:57→16:25)
[2020-09-19] MEDS: Ondansetron 4 MG TAB PO ×2 (05:13→21:50)
[2020-09-19 06:48] LABS: Abs Immature Grans 0.07 10^3/uL (0.0-0.06); Absolute Monocyte Count 1.41 10^3/uL (0.1-0.8); Basophils % 0.3; Eosinophils % 0.3; HCT 27.7 % (36.0-46.0); HGB 9.1 g/dL (11.2-15.7); Immature Grans % 0.6; Lymphocytes % 10.3; MCH 27.9 pg (27.0-33.0); MCHC 32.9 % (32.0-36.0); MPV 10.3 fL (8.0-11.0); Monocytes % 12.1; Neutrophils % 76.4; Nucleated RBC 0 %; Platelet Count 210 10^3/uL (130-400); RBC 3.26 10^6/uL (3.93-5.22); RDW 14.4 % (11.7-14.6); RDW-SD 44.5 fL; WBC 11.67 10^3/uL (4.4-10.8)
[2020-09-19 06:49] LABS: Absolute Basophil Count 0.04 10^3/uL (0.0-0.2); Absolute Eosinophil Count 0.04 10^3/uL (0.0-0.7); Absolute Neutrophil Count 8.92 10^3/uL (1.2-6.7)
[2020-09-19 06:56] LABS: Anion Gap 7.5 mmol/L (3-11); BUN 18 mg/dL (7-18); CO2 26.5 mmol/L (21.0-32.0); Calcium 8.1 mg/dL (8.5-10.1); Chloride 103 mmol/L (98-107); Estimated GFR 54.66 (mL/min/1.73m2); Glucose 121 mg/dL (74-106); Potassium 4.1 mmol/L (3.5-5.1); Sodium 137 mmol/L (136-145)
[2020-09-19 07:30] VITALS: BP 151/89; RESP 18; TEMP 37.8; O2SAT 96
[2020-09-19] MEDS: Lactulose 20 GM/30 ML CUP 15 GM PO (07:59)
[2020-09-19] MEDS: Polyethylene Glycol 3350 17 GM PACKET PO (07:59)
[2020-09-19] MEDS: Enoxaparin 40 MG/0.4 ML SYR SC (08:00)
[2020-09-19] MEDS: Oxybutynin 5 MG TAB PO (08:01)
[2020-09-19] MEDS: Vitamins B Comp w/C TAB 1 TAB PO (08:01)
[2020-09-19] MEDS: FLUoxetine 20 MG CAP 40 MG PO (08:01)
[2020-09-19] MEDS: oxyCODONE-CR 20 MG TABCR 40 MG PO ×2 (08:01→19:37)
[2020-09-19] MEDS: Omeprazole 20 MG CAPCR 40 MG PO (08:01)
[2020-09-19] MEDS: amLODIPine 10 MG TAB PO (08:01)
--- NOTE | 2020-09-19 12:20 | W.PM.PROGNOT ---
Date of Service Date of service: 09/19/20 Time of Service: 12:21 Assessment and Plan Assessment and plan (1) Fracture of left hip: Start date: 09/19/20 Start time: 12:24 Status: Acute Assessment and plan: POD 2 anticipated discharge however when standing with nursing patient required 2 assist and became nervous stating too much pain. Will need to be reevaluated by PT. She is also c/o pain to left knee and elbow, will order voltaren gel, knee and hip swollen expected after surgery Sitting up in bed She is voiding Possible discharge home tomorrow Multiple modalities for pain Schedule lactulose for bowel regimen IS Will discharge home on BID aspirin per ortho with f/u Qualifiers: Encounter type: initial encounter Fracture type: closed Qualified Code(s): S72.002A - Fracture of unspecified part of neck of left femur, initial encounter for closed fracture (2) Chronic pain syndrome: Start date: 09/19/20 Start time: 12:29 Status: Chronic Assessment and plan: . Will continue home dosing with increase in PRN due to surgery, IV PRN for break through, will send home with 20 tabs of prn oxycodone due to higher pain tolerance from chronic pain syndrome (3) Hypertension: Start date: 09/19/20 Start time: 12:29 Status: Chronic Assessment and plan: Continue amlodipine. Currently blood pressure elevated likely related to pain. No change in medication Will continue to monitor. (4) Anemia: Start date: 09/19/20 Start time: 12:30 Status: Chronic Assessment and plan: Mild, slightly lower than baseline. Expected to be lower at this time due to surgery Stable continue to monitor (5) Chronic renal insufficiency, stage III (moderate): Start date: 09/19/20 Start time: 12:31 Status: Acute Assessment and plan: GFR around 50 is at her baseline. Fluids dcd. Tolerating diet. (6) DVT prophylaxis: Start date: 09/19/20 Start time: 12:31 Status: Acute Assessment and plan: Enoxaparin until discharge (7) Discharge planning issues: Start date: 09/19/20 Start time: 12:31 Status: Acute Assessment and plan: Possible discharge home with PT tomorrow. above case discussed with Dr. Hood Subjective Subjective Patient reports: other Interval history since last seen: Discussed discharge with Patient however when nursing went to move patient from bed to commode patient required 2 assist and patient felt uncomfortable going home and PT unavailable today. Patient will be kept another night and reevaluated to PT tomorrow. She stated pain was tolerable, no n/v/d/. Exam Narrative Exam Narrative: GEN: Alert and oriented, sitting up in chair smiling pleasent and cooperative, gives linear history. HEENT: Head atraumatic. Conjunctiva clear, no icterus. PEERL, EOMI. no rhinorrhea. MMM, OP benign. Neck is supple with no masses or lymphadenopathy, trachea midline LUNGS: CTAB with normal effort CV: RRR with no murmurs, gallops, or rubs. Pedal pulses intact and symmetric ABD: +BS, soft, NT/ND EXT: no cyanosis, clubbing, or edema MSK:Surgical drsg on hip c/d/i, edema to knee, and hip, expected after surgery NEURO: CN 2-12 grossly intact. Strength and sensation and feet intact bilaterally.. Normal speech and coordination SKIN: No rashs or open wounds. PSYCH: normal mood and affect Objective Last Vital Signs Temp 37.8 C H 09/19/20 07:30 Pulse 88 09/18/20 23:14 Resp 18 09/19/20 07:30 BP 151/89 H 09/19/20 07:30 Pulse Ox 96 09/19/20 07:30 Laboratory Results - last 24 hr 09/19/20 09/19/20 06:00 06:00 WBC 11.67 H RBC 3.26 L Hgb 9.1 L Hct 27.7 L MCV 85.0 MCH 27.9 MCHC 32.9 RDW 14.4 Plt Count 210 MPV 10.3 Immature Gran % 0.6 Neutrophils % 76.4 Lymphocytes % 10.3 Monocytes % 12.1 Eosinophils % 0.3 Basophils % 0.3 Nucleated RBC % 0 Absolute Neutrophils 8.92 H Absolute Lymphocytes 1.20 Absolute Monocytes 1.41 H Absolute Eosinophils 0.04 Absolute Basophils 0.04 Sodium 137 Potassium 4.1 Chloride 103 Carbon Dioxide 26.5 Anion Gap 7.5 BUN 18 D Creatinine 1.0 Estimated GFR/1.73 m2 54.66 Glucose 121 H Calcium 8.1 L
[2020-09-19 13:44] LABS: Bilirubin Negative (Negative); Blood Negative (Negative); Clarity Sl Cloudy (Clear); Glucose Negative (Negative); Ketones Negative (Negative); Leukocyte Esterase Negative (Negative); Nitrite Negative (Negative); Specific Gravity 1.025 (1.005-1.025); Urobilinogen 0.2 EU/dL (Up TO 0.2); pH 5.5 (5-8)
--- NOTE | 2020-09-19 13:50 | CMPROGNOTE_ITS ---
- If Service Date Differs Date of service: 09/19/20 Time of Service: 13:50 Care Management Progress Note S/O: Tegan is recovering well from hip surgery; she is post-op day #2. Per provider, her pain is well managed on current pain medication regimen. There was a possibility of discharge today but when Tegan got OOB with nursing to go to the commode, she required the assist of 2 and experienced an increase in pain. As PT is not available today, the decision was made to have her remain in the hospital one more day and be re-evaluated by PT in the morning before discharging home. A: Tegan is a 69 year old female admitted to [facility] on 09/16/2020 for a left hip fracture status post fall. P: No change in plan. Anticipate Tegan will discharge home with new Home Health PT Services when medically cleared by provider. Her daughter will drive her home via private vehicle when ready. CM will continue to follow and support Tegan and her discharge planning needs..
[2020-09-19 13:53] LABS: Bacteria Rare HPF (Negative); Epithelial Cells Few HPF (Negative); RBC 0-2 HPF (0-2); WBC 0-2 HPF (0-5)
[2020-09-19 13:54] LABS: C & S Indicated? No; Casts 3-5 Fine Granular LPF (Negative); Mucus Trace (Negative)
[2020-09-19 15:19] VITALS: BP 120/70; PULSE 97; RESP 18; TEMP 37.3; O2SAT 95
[2020-09-19] MEDS: Diclofenac 1% Gel 100 GM TUBE TP ×2 (16:25→19:41)
[2020-09-19 19:00] VITALS: RESP 12
[2020-09-19] MEDS: Melatonin 3 MG TAB 6 MG PO (21:50)
[2020-09-19] MEDS: LORazepam 1 MG TAB PO (21:51)
[2020-09-19 23:37] VITALS: BP 145/84; PULSE 89; RESP 18; TEMP 36.8; O2SAT 96
[2020-09-20 07:21] LABS: HCT 27.3 % (36.0-46.0); HGB 8.8 g/dL (11.2-15.7); MCHC 32.2 % (32.0-36.0); MCV 86.9 fL (80-95); Platelet Count 223 10^3/uL (130-400); RBC 3.14 10^6/uL (3.93-5.22); RDW 14.2 % (11.7-14.6); RDW-SD 45.4 fL; WBC 10.02 10^3/uL (4.4-10.8)
[2020-09-20 07:23] VITALS: BP 120/75; PULSE 83; RESP 17; TEMP 36.7; O2SAT 93
[2020-09-20] MEDS: oxyCODONE 10 MG TAB 20 MG PO (07:24)
[2020-09-20 08:00] VITALS: RESP 14
[2020-09-20] MEDS: Polyethylene Glycol 3350 17 GM PACKET PO (08:33)
[2020-09-20] MEDS: Enoxaparin 40 MG/0.4 ML SYR SC (08:33)
[2020-09-20] MEDS: FLUoxetine 20 MG CAP 40 MG PO (08:34)
[2020-09-20] MEDS: oxyCODONE-CR 20 MG TABCR 40 MG PO (08:34)
[2020-09-20] MEDS: amLODIPine 10 MG TAB PO (08:34)
[2020-09-20] MEDS: Vitamins B Comp w/C TAB 1 TAB PO (08:34)
[2020-09-20] MEDS: Oxybutynin 5 MG TAB PO (08:34)
[2020-09-20] MEDS: Omeprazole 20 MG CAPCR 40 MG PO (08:34)
[2020-09-20] MEDS: Diclofenac 1% Gel 100 GM TUBE TP (08:35)
[2020-09-20] MEDS: Lactulose 20 GM/30 ML CUP 15 GM PO (09:02)
--- NOTE | 2020-09-20 09:24 | CMPROGNOTE_ITS ---
Care Management Progress Note S/O: Tegan continues to be closely monitored post surgically. PT recommends SNF placement and if returning home, that Tegan have a commode. CM faxed referral to [facility] at patient preference. CM continues to follow. A: Tegan is a 69 year old female admitted to [facility] on 09/16/2020 for a left hip fracture status post fall. P: Tegan will discharge home with new Home Health PT Services when medically cleared by provider or discharge to SNF. Transport will be determined by disposition. CM will continue to follow and support Tegan and her discharge planning needs.
--- NOTE | 2020-09-20 09:45 | INDS_ITS ---
Date of service: 09/20/20 Time of Service: 16:06 PT Notes Visit Reasons: LEFT HIP FRACTURE, FALL Physical Therapy Inpatient Discharge Summary Date: 09/20/20 Dates of service: 09/18/2020 through 09/20/2020 (No service provided on 09/19/2020 due to Sunday hol) Referring Doctor: Jonathan Akins MD PT Orders: PT CONSULT: s/p ortho surgery, s/p L Anterior NOVA Precautions: Fall. Standard. Anterior hip precautions. Patient Profile/Admitting Diagnosis: Tegan is a 69 yo female that presented to the ER on 09/18/20 after a fall on her ramp while taking in groceries. The fall resulted in left hip fracture and left NOVA with anterior approach was performed on 09/17/20. PMHX: Medical History(Updated 09/17/20 @ 14:31 by Jonathan Paulino MD) Chronic pain syndrome Chronic renal insufficiency, stage III (moderate) Hypertension Osteoarthritis of right knee, Steroid injection: 04/05/2020, Has had previous viscosupplementation injections. History of back surgery Hx of cholecystectomy Social History/Home Situation: Lives alone in single level home with ramp to enter. Daughter is available to assist. Ambulates with 2 canes. Equipment Owned/DME: 2 canes, 4WW Subjective: Fearful that she would fall. Caught patient and 2 LNAs transferring from bedside commode to chair. MECHANICAL UNIT REPAIRER asked for help as patient was having a hard time moving her legs. Objective: General Observation: Fearful of falling. Pain avoidance behavior. Highly anxi ous. Mental Status: A&O x3 Pain: 7/10 in left lateral hip and left elbow ROM: Right Upper Extremity: Shoulder Flexion WFL. Shoulder abduction WFL. Elbow flexion WFL. Wrist flexion WFL. Opening and closing of hand WFL. Left Upper Extremity: Shoulder Flexion WFL. Shoulder abduction WFL. Elbow flexion WFL. Wrist flexion WFL. Opening and closing of hand WFL. Right Lower Extremity: Hip flexion WFL. Hip abduction WFL. Knee flexion WFL. Ankle dorsiflexion WFL. Ankle plantarflexion WFL. Left Lower Extremity: Hip flexion WFL. Hip abduction WFL. Knee flexion WFL. Ankle dorsiflexion WFL. Ankle plantarflexion WFL. Strength: Right Upper Extremity: Shoulder flexors 5/5. Shoulder abductors 5/5. Elbow flexors 5/5. Elbow extensors 5/5. Senior Administrator Support strong. Left Upper Extremity: Shoulder flexors 5/5. Shoulder abductors 5/5. Elbow flexors 5/5. Elbow extensors 5/5. Senior Administrator Support strong. Right Lower Extremity: Hip flexors 5/5. Hip abductors 5/5. Knee flexors 5/5. Knee extensors 5/5. Ankle dorsiflexors 5/5. Ankle plantarflexors 5/5. Left Lower Extremity:Hip flexors 2/5. Hip abductors 2/5. Knee flexors 5/5. Knee extensors 5/5. Ankle dorsiflexors 5/5. Ankle plantarflexors 5/5. Sensation: Intact as to pain and pressure on bilateral lower extremities, diminished left distal leg compared to right. Gait: Required moderate verbal cueing for limb advancement and strategies as patient reains highly anxious about putting weight on L LE. Balance: Static Sitting: Good Dynamic Sitting: Fair Static Standing: Poor Dynamic Standing: Poor Therapeutic Exercise: Will have [employer] provide thera ex session for patient prior to today's discharge. Assessment: Barriers to mobility progression include pain in L hip, fearfulnesss of falling, pain avoidance behavior, and lack of motivation. Patient will benefit from alf facility placement for continued skilled physical therapy services in order to progress mobility level, strength, and balance in preparation for a safe discharge to home. Patient continues to present with clinical signs and symptoms consistent with current/admitting diagnoses that have resulted to mobility limitations, gait instability, generalized weakness, and impairment of motor control as demonstrated by the following impairment level findings: 1. Decreased strength to left hip major muscle groups 2. Impaired sitting/standing balance 3. Impaired activity tolerance 4. Limitation of joint range of motion in left hip Impairments are continuing to contribute to the following functional limitations: 1. Increased dependence with bed mobility skills 2. Increased dependence with transfers 3. Inability to safely ambulate without assistive device and physical assistance 4. Increase completion time for mobility ADL performance 5. Increased fall risk 6. Inability to negotiate steps alone safely Goals: Goals x1 week 1. Supine-Sit independent NOT MET 2. Sit-Supine independent NOT MET 3. Sit-Stand independent NOT MET 4. Stand-Sit independent NOT MET 5. Bed-Chair independent NOT MET 6. Chair-Bed independent NOT MET 7. Independent gait on level surface with use of least restrictive device for at least 300 feet without report of pain nor dyspnea NOT MET 8. Independent stair negotiation while holding onto bilateral rails for at least 10 steps without report of pain nor dyspnea NOT MET 9. Independent with home exercise program NOT MET 10. Good static and dynamic standing balance/tolerance NOT MET DISCHARGE RECOMMENDATIONS: Patient will benefit from alf facility placement for continued skilled physical therapy services in order to progress mobility level, strength, and balance in preparation for a safe discharge to home. TREATMENT CODE/TIME: [id number] x 12 minutes beginning at 9:45 AM. ([employer] provided the second [place] [id number] from 10:05 AM). Thank you for the opportunity to participate in the care of this patient. Mikayla Jacobson PT, DPT, CLT [facility] [place], [place]
[2020-09-20 10:48] LABS: Source Nasal/Nares
[2020-09-20 11:29] LABS: COVID-19 PCR Negative (Negative)
--- NOTE | 2020-09-20 11:43 | W.PM.DS.N ---
Date of service: 09/20/20 Time of Service: 11:43 DS: Diagnosis Discharge Diagnosis (1) Fracture of left hip: Start date: 09/20/20 Start time: 11:48 Status: Acute Asessment and Plan: POD 3 total repair of left hip by Dr. Renteria Initially doing well after surgery however day 2 she became fearful of falling and c/o worsening pain requiring 2 assist for movement. She also would not have any help at home. There fore she is being discharged to H/R She will be on Asa 81 mg BID IS Multiple modalities for pain. scheduled BM regimen ortho f/u (2) Chronic pain syndrome: Start date: 09/20/20 Start time: 11:52 Status: Chronic Asessment and Plan: Will continue home dosing with increase in PRN due to surgery, IV PRN for break through, will send home with 20 tabs of prn oxycodone due to higher pain tolerance from chronic pain syndrome (3) Hypertension: Start date: 09/20/20 Start time: 11:53 Status: Chronic Asessment and Plan: elevated while in the hospital likely in the setting of pain. Continue current management will defer to PCP for further management (4) Anemia: Start date: 09/20/20 Start time: 11:54 Status: Chronic Asessment and Plan: slightly lower than baseline due to surgery. However stable (5) Chronic renal insufficiency, stage III (moderate): Start date: 09/20/20 Start time: 11:55 Status: Acute Asessment and Plan: Bun and Creatinine is better than baseline above case discussed with Dr. Hood Discharge Plan Disposition Patient Disposition: SNF (LEVEL [facility]) [facility] Condition: Stable Discharge Details Reason For Visit: LEFT HIP FRACTURE, FALL Admit Date/Time: 09/16/20 22:08 Admit Provider: Oscar Mckoy Attending Provider: Oscar Mckoy Primary Care Provider: JerardoMarixa mckeon [facility] Course Hospital Course: 69 y.o female with PMH of CPS, HTN, Anemia, OA, on chronic opioids, admitted from [facility] ED after slipping and falling on her left hip. She presented with severe left hip pain, and elbow pain. Labs in the ED unremarkable, revealing anemia at baseline and CKD. Imaging showing fracture of the neck of the femur with moderate displacement and varus deformity, elbow imaging Elbow joint effusion without obvious fracture. Ortho consulted. Hospitalists were asked to admit patient for further management. Surgery preformed by Dr. Paulino and Myra Left Anterior Total Hip Arthroplasty on 09/17. Patient initially did well POD 1 however POD 2 she required 2 max assist for transfer. She was in severe pain and c/o elbow and knee pain. Voltaren gel was added to her pain regimen and her prn was increased by 5 mg. She states her pain is tolerable, however she does have fear of ambulating and not a lot of support at home, therefore she is being discharged to H/R. She will be discharged with increase PRN pain medications, bowel regimen, asa 81 mg BID ortho f/u. She denies CP, SOB, N/V/D. Home Meds and New Rx's Prescriptions: New diclofenac sodium 1 % Gel 3 g topical QID Qty: 1 RF: 0 oxycodone 10 mg Tablet 20 mg PO TID PRN PRN (Reason: Pain) Qty: 20 RF: 0 aspirin 81 mg tablet,delayed release (DR/EC) 81 mg PO BID Qty: 60 RF: 0 Continued melatonin 5 mg capsule PO HS RF: 0 ondansetron HCl 4 MG tablet 4 mg PO DAILY PRNRF: 0 omeprazole 40 MG capsule,delayed release(DR/EC) 40 mg PO DAILY RF: 0 amlodipine 10 MG tablet 10 mg PO DAILY RF: 0 polyethylene glycol 3350 [Miralax] 119 GM powder 15 ml PO DAILY PRNRF: 0 fluoxetine 40 mg capsule 40 mg PO DAILY RF: 0 OxyContin 40 MG tablet extended release 12 hr 40 mg PO BID RF: 0 oxycodone 15 mg Tablet 15 mg PO TID PRN (Reason: Pain) RF: 0 oxybutynin chloride 5 mg tablet 5 mg PO DAILY RF: 0 lactulose 10 gram/15 mL solution 15 ml PO DAILY PRN PRNRF: 0 cholecalciferol (vitamin D3) [Vitamin D3] 25 mcg (1,000 unit) Tablet 25 mcg PO DAILY RF: 0 Narcan 4 mg/actuation [place],Non-Aerosol 4 mg INTRANASAL Q3M PRNRF: 0 lorazepam [Ativan] 1 mg tablet 1 mg PO DAILY PRNQty: 3 RF: 0 Discontinued aspirin [Aspirin Low Dose] 81 mg Tablet,Delayed Release (Dr/Ec) 81 mg PO DAILY RF: 0 No Action vitamin B complex Tablet 1 tab PO DAILY RF: 0 Discharge Instructions Instructions: Chronic Pain (DC), Hip Fracture (GEN) Additional Instructions: follow up with ortho in 4 weeks Use voltaren gel to elbow and knee 4 times a day as needed Activity:: Activity as Tolerated Equipment/Supplies:: walker Diet:: Low Sodium Discharge Orders Discharge Orders: Discharge Order (Routine); Ordered 09/20/20 Ordered By: Danica Villaseñor DS: Summary Time Spent with Patient providing and/or coordinating discharge services: Greater than 30 minutes (approx 60 mins spent discharging patient) Status at Discharge Functional status at discharge: uses cane/walker Overall status at discharge: patient is not back to baseline Mental Status: mental status grossly normal Speech and Movement: speech and movement normal Mood: congruent mood Affect: normal affect Exam Narrative Exam Narrative: GEN: Alert and oriented, sitting up in chair smiling pleasent and cooperative, gives linear history. HEENT: Head atraumatic. Conjunctiva clear, no icterus. PEERL, EOMI. no rhinorrhea. MMM, OP benign. Neck is supple with no masses or lymphadenopathy, trachea midline LUNGS: CTAB with normal effort CV: RRR with no murmurs, gallops, or rubs. Pedal pulses intact and symmetric ABD: +BS, soft, NT/ND EXT: no cyanosis, clubbing, or edema MSK:Surgical drsg on hip c/d/i, edema to knee, and hip, expected after surgery NEURO: CN 2-12 grossly intact. Strength and sensation and feet intact bilaterally.. Normal speech and coordination SKIN: No rashs or open wounds. PSYCH: normal mood and affect Psych Mental Status: mental status grossly normal Speech and Movement: speech and movement normal Mood: congruent mood Affect: normal affect DS: Data Vitals/I&O Vitals and I&O: Vital Signs Temperature 36.7 C 09/20/20 07:23 Temperature Source Tympanic 09/20/20 07:23 Pulse 83 09/20/20 07:23 Pulse Rhythm Regular 09/20/20 10:11 Pulse 75 09/16/20 23:31 Respiratory Rate 17 09/20/20 07:23 Respiratory Effort 09/20/20 10:11 Respiratory Depth Normal 09/20/20 10:11 Respiratory Pattern Normal 09/20/20 10:11 Blood Pressure 120/75 09/20/20 07:23 Blood Pressure Mean 100 09/16/20 23:30 Blood Pressure Position Supine 09/16/20 19:10 Pulse Oximetry 93 09/20/20 07:23 Respiratory End-tidal CO2 35 09/17/20 17:05 Oxygen Delivery Method Room Air 09/20/20 07:23 Oxygen Flow Rate 0 09/20/20 07:23 Fraction of Inspired Oxygen (FIO2) 09/20/20 08:00 Pain Level 5 09/20/20 08:34 Comment left: 201/103 09/16/20 19:10 Intake & Output 09/19/20 09/19/20 09/20/20 11:59 23:59 11:59 Intake Total 240 / 240 440 / 440 Output Total 250 / 500 250 / 500 425 / 425 Balance -250 / -260 -10 / -260 Intake: Oral 240 / 240 440 / 440 Output: Urine 250 / 500 250 / 500 425 / 425 Other: Urine Color Yellow Yellow Urine Appearance Clear Clear Clear Urine Odor None Normal Voiding Methods Bedside Commode Bedside Commode Bedside Commode Data Completed and Pending Completed studies during hospitalization [Text1]: Exam(s) a RAD:XR hip LT complete & AP pelvis EXAM: XR HIP LT COMPLETE AP PELVIS CLINICAL HISTORY: s/p fall, r/o acute fx L hip TECHNIQUE: COMPARISON: CR PELVIS AP from 01/20/2013 CR,XR XR FEMUR LT from 09/16/2020 FINDINGS: Four views of the hip and 3 additional views of the femur were obtained. There is a fracture of the neck of the femur with moderate displacement and varus deformity. No additional fracture seen involving the left femur, pelvis, or right hip. TECHNIQUE: Imaging protocol: XR Left hip. Views: 2 or 3 views hip with pelvis when performed. COMPARISON: CT ABDOMEN PELVIS W 08/04/2019 1:10 PM FINDINGS: Bones/joints: Impacted basicervical left femoral neck fracture. Mild right hip joint space narrowing and marginal degenerative spurring. Lower lumbar spondylosis, incompletely evaluated. Soft tissues: Unremarkable. IMPRESSION: 1. Displaced basicervical left femoral neck fracture. 2. Mild right hip joint degenerative disease. Exam(s) PROCEDURE INFORMATION: Exam: XR Left Femur Exam date and time: 09/16/2020 7:45 PM Age: 69 years old Clinical indication: Injury or trauma; Fall; Blunt trauma; Hip; Left TECHNIQUE: Imaging protocol: XR Left femur. Views: 2 views. COMPARISON: CR XR KNEE LT 3V AP,LAT,SAVANAH 04/05/2020 3:10 PM FINDINGS: Bones/joints: Displaced basicervical femoral neck fracture. Remainder of the femur is intact. Probable mild knee joint degenerative changes. No significant joint effusion. Soft tissues: Unremarkable. IMPRESSION: Basicervical femoral neck fracture. No other acute fracture. Dictated and Authenticated by: Pedro Funez MD. Exam(s) a RAD:XR hip LT in OR EXAM: XR HIP LT IN OR CLINICAL HISTORY: LEFT HIP FRACTURE TECHNIQUE: 2D and realtime digital imaging was performed. COMPARISON: No exams were available for comparison FINDINGS: C-arm fluoroscopy was utilized by Dr. Paulino during placement of left hip prosthesis. Hard copies show good position of acetabular and femoral components. Fluoro time, 43.5 seconds. IMPRESSION: Exam(s) a RAD:XR elbow LT complete EXAM: XR ELBOW LT COMPLETE CLINICAL HISTORY: Pain s/p fall TECHNIQUE: COMPARISON: No exams were available for comparison FINDINGS: Three views were obtained. There is a probable elbow joint effusion with elevation of the anterior humeral fat pad noted. There are degenerative changes of the joints of the elbow. No gross fracture identified, however the presence of a joint effusion would raise the possibility of an occult fracture. IMPRESSION: Elbow joint effusion without obvious fracture, follow-up radiographs or CT may be considered for further evaluation to rule out occult fracture. Labs on day of discharge: Labs from last 24 hours 09/20/20 09/20/20 09/19/20 10:24 06:20 13:30 WBC 10.02 RBC 3.14 L Hgb 8.8 L Hct 27.3 L MCV 86.9 MCH 28.0 MCHC 32.2 RDW 14.2 Plt Count 223 MPV 10.0 Urine Color Yellow Urine Clarity Sl cloudy Urine pH 5.5 Ur Specific [place] 1.025 Urine Protein 30 H Urine Ketones Negative Urine Blood Negative Urine Nitrite Negative Urine Bilirubin Negative Urine Urobilinogen 0.2 Ur Leukocyte Esterase Negative Urine RBC 0-2 Urine WBC 0-2 Ur Epithelial Cells Few Urine Crystals Urine Bacteria Rare Urine Casts 3-5 fine granular Urine Mucus Trace Ur Culture Indicated? No Urine Glucose Negative COVID-19 Source Nasal/nares SARS-CoV-2 (PCR) Negative [facility] Medical History Chronic pain syndrome Chronic renal insufficiency, stage III (moderate) Hypertension Osteoarthritis of right knee Steroid injection: 04/05/2020 Has had previous viscosupplementation injections. Surgical History History of back surgery Hx of cholecystectomy Social History Smoking/Tobacco Use Status: Never Smoking risk assessment performed?: Yes Alcohol Intake: never Drug use: Never Do you feel safe at home: Yes Do you feel safe in your relationship?: Yes Additional Social history: Grew up in [place], still lives in family home in [facility], lives alone In [place], still lives with her family health in [facility]. Still lives in family all
--- NOTE | 2020-09-20 12:03 | PT.INTREAT ---
Date of service: 09/20/20 Time of Service: 10:05 PT Notes Visit Reasons: LEFT HIP FRACTURE, FALL [facility] Date: 09/20/2020 PRECAUTIONS: Fall SUBJECTIVE: Tegan reports that she is having pain and is fearful to move her L LE. She reports that she was supposed to leave yesterday, but had not moved much following her NOVA procedure. OBJECTIVE: Co-treatment with Mikayla Jacobson DPT. Please see her note for specifics regarding gait training and transfers. PAIN: Patient c/o pain with ther ex completion, improving with repetition of exercises. THEREX: Patient was instructed in a LE strengthening and stabilization program, completed in a seated position, as per flow sheet. She requires significant assist for exercise completion, and was unable to complete glute sets as instructed due to weakness and confusion. She also requires extra time to complete exercises, as she maintains a slow pace due to weakness and fear of pain. ASSESSMENT: Patient tolerated session with complaint of L LE pain with ther ex completion, although reports improvement in pain with continued repetitions with each exercise. PLAN: Continue with global strengthening and conditioning for improved mobility and activity tolerance. TREATMENT CODE/TIME: 15 minutes; 76700 (10:05)
--- NOTE | 2020-09-20 12:27 | PDOC.CMDIS ---
- If Service Date Differs Date of service: 09/20/20 Time of Service: 12:35 LACE Index Scoring Tool - Questions: Length of Stay (in days): 4 - 6 Acuity (Admit via E.D.?): Yes Comorbidities: Mild Liver/Renal Disease E.D. Visits: 4 - Answers: Total Score: 13 Risk of Readmission: High Risk Care Management Discharge Reason for Hospitalization: Left Hip Fracture, Fall Discharge Plan: Tegan will discharge to [facility] for continued rehab prior to returning home. She will transport via W/C van provided by the facility. Patient/Family Education Needs: Review discharge instructions, discuss Ask Me Three. Services Needed at Discharge: Penitentiary Facility ([facility] ), Transportation (Facility's W/C Van)
== END 2020-09-20 13:24 | disposition skilled nursing facility (03) | DRG 522 ==
LOC: ER 21:57 → MS 09-17
PROVIDERS: Internal Medicine; Nurse Practitioner Family; Student in an Organized Health Care Education/Training Program; Admitting Provider Family Medicine; Emergency Provider Physician Assistant; PCP Family Medicine; Visit Provider Family Medicine
PROC: 0SRB04A Replacement of Left Hip Joint with Ceramic on Polyethylene Synthetic Substitute, Uncemented, Open Approach (ICD-10-PCS; CPT 27130; principal; 2020-09-17 13:15)
DX: S72.002A Fracture of unspecified part of neck of left femur, initial encounter for closed fracture (principal); S50.02XA Contusion of left elbow, initial encounter; W17.89XA Other fall from one level to another, initial encounter; Y93.01 Activity, walking, marching and hiking; Y92.008 Other place in unspecified non-institutional (private) residence as the place of occurrence of the external cause; G89.4 Chronic pain syndrome; I12.9 Hypertensive chronic kidney disease with stage 1 through stage 4 chronic kidney disease, or unspecified chronic kidney disease; N18.30 Chronic kidney disease, stage 3 unspecified; M17.11 Unilateral primary osteoarthritis, right knee; D64.9 Anemia, unspecified
CPT/HCPCS: 27130; 36415; 51702; 73552; 76942; 80048; 80053; 85027; 87635; 93005; 96374; 96375; 96376; 97110; 97162; 97530; 99222; 99233; 99239; 99285; J1650; NC; 71045; 73080; 73501; 73502; 81003; 81015; 83735; 85025; 85049; 93010; 94667; J0690; J1100; J1885; J2370; J2405; J3010; J8597

== ENCOUNTER 2020-09-25 13:18 | Outpatient (REF) | payer MEDICARE, SELFPAY ==
[2020-09-28 08:02] LABS: COVID-19 RT-PCR Result Not Detected ((See Note))
== END 2020-09-25 13:19 | disposition home or self-care (01) ==
LOC: LBN 13:18
PROVIDERS: PCP Family Medicine; Visit Provider Nurse Practitioner Adult Health
DX: Z20.822 Contact with and (suspected) exposure to COVID-19 (principal)
CPT/HCPCS: U0003

== ENCOUNTER 2020-10-02 16:53 | Outpatient (REF) | payer SELFPAY ==
[2020-10-02 17:09] LABS: Iron 31 ug/dL (50-170)
[2020-10-02 17:22] LABS: Anion Gap 9.6 mmol/L (3-11); BUN 29 mg/dL (7-18); CO2 28.4 mmol/L (21.0-32.0); CREATININE 1.2 mg/dL (0.55-1.02); Calcium 8.8 mg/dL (8.5-10.1); Chloride 106 mmol/L (98-107); Estimated GFR 44.29 (mL/min/1.73m2); Ferritin 104 ng/mL (8-252); Glucose 123 mg/dL (74-106); Sodium 144 mmol/L (136-145)
[2020-10-02 17:26] LABS: Abs Immature Grans 0.02 10^3/uL (0.0-0.06); Absolute Basophil Count 0.05 10^3/uL (0.0-0.2); Absolute Eosinophil Count 0.07 10^3/uL (0.0-0.7); Absolute Lymphocyte Count 1.49 10^3/uL (1.2-3.4); Absolute Neutrophil Count 2.61 10^3/uL (1.2-6.7); Eosinophils % 1.4; HCT 28.6 % (36.0-46.0); Immature Grans % 0.4; Lymphocytes % 30.8; MCH 27.4 pg (27.0-33.0); MCHC 31.5 % (32.0-36.0); MCV 87.2 fL (80-95); MPV 9.1 fL (8.0-11.0); Monocytes % 12.4; Nucleated RBC 0 %; Platelet Count 507 10^3/uL (130-400); RBC 3.28 10^6/uL (3.93-5.22); RDW 14.2 % (11.7-14.6); RDW-SD 45.2 fL; Reticulocyte 1.6 % (0.5-2.4); WBC 4.84 10^3/uL (4.4-10.8)
== END 2020-10-02 16:54 | disposition home or self-care (01) ==
LOC: LBN 16:53
PROVIDERS: PCP Family Medicine; Visit Provider Family Medicine
DX: D64.9 Anemia, unspecified (principal); N18.30 Chronic kidney disease, stage 3 unspecified; G89.4 Chronic pain syndrome; M62.81 Muscle weakness (generalized)
CPT/HCPCS: 80048; 82728; 83540; 85025; 85045

== ENCOUNTER 2020-10-13 17:34 | Outpatient (REF) | payer MEDICARE, SELFPAY ==
[2020-10-13 13:42] LABS: HCT 29.4 % (36.0-46.0); MCH 27.3 pg (27.0-33.0); MCHC 30.6 % (32.0-36.0); MCV 89.1 fL (80-95); Platelet Count 343 10^3/uL (130-400); RDW 14.2 % (11.7-14.6); RDW-SD 46.5 fL; WBC 5.23 10^3/uL (4.4-10.8)
[2020-10-13 13:57] LABS: ALT 19 U/L (14-59); AST 17 U/L (15-37); Albumin 3.5 g/dL (3.4-5.0); Alkaline Phosphatase 116 U/L (46-116); Anion Gap 6.8 mmol/L (3-11); BUN 21 mg/dL (7-18); Bilirubin, Total 0.2 mg/dL (0.2-1.0); CO2 30.2 mmol/L (21.0-32.0); CREATININE 1.3 mg/dL (0.55-1.02); Calcium 8.9 mg/dL (8.5-10.1); Calculated LDL 116 mg/dL (<100); Chloride 106 mmol/L (98-107); Cholesterol 197 mg/dL (<200); Estimated GFR 40.38 (mL/min/1.73m2); Glucose 91 mg/dL (74-106); HDL Cholesterol 64 mg/dL (40-60); Potassium 4.2 mmol/L (3.5-5.1); Sodium 143 mmol/L (136-145); Total Protein 7.6 g/dL (6.4-8.2); Triglyceride 87 mg/dL (<150)
== END 2020-10-13 17:35 | disposition home or self-care (01) ==
LOC: NCHCN 17:34
PROVIDERS: PCP Family Medicine; Visit Provider Family Medicine
DX: I10 Essential (primary) hypertension (principal)
CPT/HCPCS: 80053; 80061; 85027

== ENCOUNTER 2020-10-18 15:06 | Outpatient (CLI) | payer MEDICARE, SELFPAY ==
--- NOTE | 2020-10-18 13:00 | DI.RAD_ITS ---
Exam(s) XR HIP LT COMPLETE AP PELVIS EXAM: XR HIP LT COMPLETE AP PELVIS CLINICAL HISTORY: follow up. TECHNIQUE: 2D digital imaging was performed. COMPARISON: CR,XR XR HIP LT COMPLETE AP PELVIS from 09/16/2020 XR HIP LT IN OR from 09/17/2020 FINDINGS: BONES: No acute fracture is present. No bony destructive lesion is seen. JOINTS: No dislocation present. There is a stable left total hip replacement. No evidence of hardwar e failure. Degenerative changes are seen in the right hip with joint space narrowing and periarticul ar spurring. SOFT TISSUE: Normal. IMPRESSION: Stable left THR. DATA REPOSITORY: RADIATION DOSE DELIVERED:
== END 2020-10-18 15:07 | disposition home or self-care (01) ==
LOC: DIORS 15:07
PROVIDERS: PCP Family Medicine; Referring Provider Family Medicine; Visit Provider Physician Assistant Surgical
DX: Z47.1 Aftercare following joint replacement surgery (principal); Z96.642 Presence of left artificial hip joint; M16.11 Unilateral primary osteoarthritis, right hip
CPT/HCPCS: 73502

== ENCOUNTER 2020-11-05 13:06 | Outpatient (REF) | payer MEDICARE, SELFPAY ==
[2020-11-05 13:21] LABS: Bilirubin Negative (Negative); Blood Large (Negative); Clarity Cloudy (Clear); Glucose Negative (Negative); Ketones Negative (Negative); Leukocyte Esterase Large (Negative); Nitrite Negative (Negative); Specific Gravity 1.025 (1.005-1.025); Urobilinogen 0.2 EU/dL (Up TO 0.2)
[2020-11-05 13:27] LABS: C & S Indicated? Yes; WBC >50 HPF (0-5)
== END 2020-11-05 13:07 | disposition home or self-care (01) ==
LOC: LBN 13:06
PROVIDERS: PCP Family Medicine; Visit Provider Family Medicine
DX: R35.0 Frequency of micturition (principal); N39.0 Urinary tract infection, site not specified; N18.30 Chronic kidney disease, stage 3 unspecified
CPT/HCPCS: 87077; 81003; 81015; 87086; 87186

== ENCOUNTER → 2020-11-22 14:47 | Outpatient (BNVA) | payer MEDICARE, SELFPAY | PROVIDERS: PCP Family Medicine; Referring Provider Family Medicine; Visit Provider Student in an Organized Health Care Education/Training Program | DX: Z47.1 Aftercare following joint replacement surgery (principal); Z96.642 Presence of left artificial hip joint; M75.82 Other shoulder lesions, left shoulder | CPT/HCPCS: 99213 ==

== ENCOUNTER 2020-12-21 15:08 | Outpatient (REF) | payer MEDICARE, SELFPAY ==
[2020-12-21 20:35] LABS: Bilirubin Negative (Negative); Blood Trace-intact (Negative); Clarity Cloudy (Clear); Glucose Negative (Negative); Ketones Negative (Negative); Leukocyte Esterase Moderate (Negative); Nitrite Negative (Negative); Urobilinogen 0.2 EU/dL (Up TO 0.2); pH 5.5 (5-8)
[2020-12-21 20:49] LABS: Bacteria Few HPF (Negative); C & S Indicated? Yes; Epithelial Cells Negative HPF (Negative); WBC >50 HPF (0-5)
== END 2020-12-21 15:09 | disposition home or self-care (01) ==
LOC: NCHCN 15:08
PROVIDERS: PCP Family Medicine; Visit Provider Family Medicine
DX: R30.0 Dysuria (principal)
CPT/HCPCS: 81003; 81015; 87086

== ENCOUNTER 2020-12-22 08:42 | Outpatient (REF) | payer MEDICARE, SELFPAY ==
[2020-12-22 22:15] LABS: HCT 30.4 % (36.0-46.0); HGB 9.6 g/dL (11.2-15.7); MCH 25.7 pg (27.0-33.0); MCHC 31.6 % (32.0-36.0); MCV 81.3 fL (80-95); MPV 10.2 fL (8.0-11.0); Platelet Count 312 10^3/uL (130-400); RBC 3.74 10^6/uL (3.93-5.22); RDW 15.2 % (11.7-14.6)
[2020-12-22 22:24] LABS: ALT 15 U/L (14-59); AST 11 U/L (15-37); Albumin 3.7 g/dL (3.4-5.0); Alkaline Phosphatase 92 U/L (46-116); Anion Gap 11.5 mmol/L (3-11); BUN 24 mg/dL (7-18); Bilirubin, Total 0.3 mg/dL (0.2-1.0); CO2 26.5 mmol/L (21.0-32.0); CREATININE 1.3 mg/dL (0.55-1.02); Calcium 8.8 mg/dL (8.5-10.1); Chloride 104 mmol/L (98-107); Estimated GFR 40.26 (mL/min/1.73m2); Glucose 177 mg/dL (74-106); Potassium 3.9 mmol/L (3.5-5.1); Sodium 142 mmol/L (136-145); Total Protein 7.9 g/dL (6.4-8.2)
[2020-12-22 22:30] LABS: Hemoglobin A1C 6.2 % (<5.7)
== END 2020-12-22 08:43 | disposition home or self-care (01) ==
LOC: NCHCN 08:42
PROVIDERS: PCP Family Medicine; Visit Provider Family Medicine
DX: K59.09 Other constipation (principal); R30.0 Dysuria
CPT/HCPCS: 80053; 85027; 87077; 83036; 87086; 87186

== ENCOUNTER → 2021-01-03 15:01 | Outpatient (BNVA) | payer MEDICARE, SELFPAY | PROVIDERS: PCP Family Medicine; Visit Provider Student in an Organized Health Care Education/Training Program | DX: Z47.1 Aftercare following joint replacement surgery (principal); Z96.642 Presence of left artificial hip joint | CPT/HCPCS: 99213 ==

== ENCOUNTER 2021-01-11 16:09 | Outpatient (REF) | payer MEDICARE, SELFPAY ==
[2021-01-11 21:52] LABS: Bilirubin Negative (Negative); Blood Trace-lysed (Negative); Clarity Cloudy (Clear); Glucose Negative (Negative); Ketones Negative (Negative); Leukocyte Esterase Large (Negative); Nitrite Negative (Negative); Specific Gravity 1.015 (1.005-1.025); Urobilinogen 0.2 EU/dL (Up TO 0.2); pH 5.5 (5-8)
[2021-01-11 22:03] LABS: RBC 0-2 HPF (0-2); WBC >50 HPF (0-5)
[2021-01-11 22:04] LABS: Bacteria Packed HPF (Negative); C & S Indicated? Yes
== END 2021-01-11 16:10 | disposition home or self-care (01) ==
LOC: NCHCN 16:09
PROVIDERS: PCP Family Medicine; Visit Provider Nurse Practitioner Family
DX: R30.0 Dysuria (principal)
CPT/HCPCS: 87077; 81003; 81015; 87086; 87186

== ENCOUNTER → 2021-01-28 13:28 | Outpatient (BNVA) | payer MEDICARE, SELFPAY | PROVIDERS: PCP Family Medicine; Referring Provider Family Medicine; Visit Provider Urology | DX: N39.41 Urge incontinence (principal); Z87.440 Personal history of urinary (tract) infections; E11.9 Type 2 diabetes mellitus without complications | CPT/HCPCS: 99204; 99215 ==

== ENCOUNTER 2021-03-25 03:45 | Outpatient (CLI) | payer MEDICARE, SELFPAY ==
--- NOTE | 2021-03-25 | DI.RAD_ITS ---
Exam(s) XR LUMBAR SPINE COMPLETE EXAM: XR LUMBAR SPINE COMPLETE CLINICAL HISTORY: H/O LUMBAR SPINAL SURGERY WITH WORSENING LOW BACK PAIN,Z98.890,M54.5 TECHNIQUE: COMPARISON: No exams were available for comparison FINDINGS: Six views were obtained. Note is made of a prior lumbar laminectomy. There is a moderate left conve x lumbar scoliosis. There are mild degenerative changes of SI joints. There is disc space narrowing throughout the lumbar spine consistent with disc degeneration. No comp ression fracture identified. Moderate hypertrophic spurring of the articular facets and to a lesser degree the vertebral endplates is noted. Flexion and extension views were obtained which are unremar kable. IMPRESSION: Multilevel disc degeneration and moderate lumbar facet arthropathy. RADIATION DOSE DELIVERED: Total DLP
== END 2021-03-25 04:05 ==
PROVIDERS: PCP Family Medicine; Visit Provider Physical Medicine & Rehabilitation Pain Medicine
DX: M54.59 Other low back pain (principal); G89.29 Other chronic pain; Z98.890 Other specified postprocedural states; M51.36 Other intervertebral disc degeneration, lumbar region; M47.816 Spondylosis without myelopathy or radiculopathy, lumbar region
CPT/HCPCS: 72110

== ENCOUNTER 2021-04-21 16:41 | Outpatient (REF) | payer MEDICARE, SELFPAY ==
[2021-04-21 21:32] LABS: Bilirubin Negative (Negative); Blood Trace-intact (Negative); Clarity Cloudy (Clear); Glucose Negative (Negative); Ketones Negative (Negative); Leukocyte Esterase Negative (Negative); Nitrite Negative (Negative); Urobilinogen 0.2 EU/dL (Up TO 0.2)
[2021-04-21 21:38] LABS: Bacteria Few HPF (Negative); C & S Indicated? C&S Done As Ordered; Casts Negative LPF (Negative); Crystals Negative HPF (Negative); Epithelial Cells Few HPF (Negative); Mucus Negative (Negative)
== END 2021-04-21 16:42 | disposition home or self-care (01) ==
LOC: NCHCN 16:41
PROVIDERS: PCP Family Medicine; Visit Provider Family Medicine
DX: N39.0 Urinary tract infection, site not specified (principal)
CPT/HCPCS: 81003; 81015; 87086

== ENCOUNTER → 2021-04-25 13:12 | Outpatient (BNVA) | payer MEDICARE, SELFPAY | PROVIDERS: PCP Family Medicine; Referring Provider Family Medicine; Visit Provider Nurse Practitioner Gerontology | DX: R32 Unspecified urinary incontinence (principal); N39.0 Urinary tract infection, site not specified; K59.00 Constipation, unspecified | CPT/HCPCS: 81003; 99214 ==

== ENCOUNTER 2021-04-25 16:51 | Outpatient (REF) | payer MEDICARE, SELFPAY | END 2021-04-25 16:52 | disposition home or self-care (01) | LOC: NCHCN 16:51 | PROVIDERS: PCP Family Medicine; Visit Provider Nurse Practitioner Gerontology | DX: N39.0 Urinary tract infection, site not specified (principal) | CPT/HCPCS: 87077; 87086; 87186 ==

== ENCOUNTER 2021-08-08 15:24 | Outpatient (CLI) | payer MEDICARE, SELFPAY ==
--- NOTE | 2021-08-08 14:45 | DI.RAD_ITS ---
Exam(s) XR SHOULDER LT COMPLETE 2+V EXAM: XR SHOULDER LT COMPLETE 2+V CLINICAL HISTORY: L shoulder pain. TECHNIQUE: 2D digital imaging was performed. COMPARISON: No exams were available for comparison FINDINGS: No evidence of fracture or dislocation nor abnormal soft tissue calcifications. There are significan t osteoarthritic degenerate changes in the glenohumeral joint with opposing osteophytes on the inferi or articular surfaces of the humeral head and glenoid fossa. Mild degenerative changes in the AC aisha nt noted. No osseous lesions. Incidentally noted is fusion device in the lower cervical spine seen in the peripheral aspect field v iew of study IMPRESSION: DATA REPOSITORY: RADIATION DOSE DELIVERED:
== END 2021-08-08 15:25 | disposition home or self-care (01) ==
LOC: DIORS 15:25
PROVIDERS: PCP Family Medicine; Referring Provider Family Medicine; Visit Provider Student in an Organized Health Care Education/Training Program
DX: M25.512 Pain in left shoulder (principal); M75.82 Other shoulder lesions, left shoulder; M19.012 Primary osteoarthritis, left shoulder; M75.102 Unspecified rotator cuff tear or rupture of left shoulder, not specified as traumatic
CPT/HCPCS: 99213; 73030

== ENCOUNTER 2021-09-26 14:54 | Outpatient (CLI) | payer MEDICARE, SELFPAY ==
--- NOTE | 2021-09-26 14:45 | DI.RAD_ITS ---
Exam(s) XR HIP LT AP LAT ONLY EXAM: XR HIP LT AP LAT ONLY CLINICAL HISTORY: L NOVA. TECHNIQUE: 2D digital imaging was performed. Two views COMPARISON: CR XR HIP LT COMPLETE AP PELVIS from 10/18/2020 FINDINGS: There has been no change in the left knee prosthesis or appearance of the surrounding bone. No new f indings. DATA REPOSITORY: RADIATION DOSE DELIVERED:
== END 2021-09-26 14:55 | disposition home or self-care (01) ==
LOC: DIORS 14:54
PROVIDERS: PCP Family Medicine; Referring Provider Family Medicine; Visit Provider Student in an Organized Health Care Education/Training Program
DX: Z96.642 Presence of left artificial hip joint (principal); Z47.1 Aftercare following joint replacement surgery
CPT/HCPCS: 99212; 73502

== ENCOUNTER 2021-10-23 11:15 | Emergency (ER) | payer MEDICARE, SELFPAY ==
--- NOTE | 2021-10-23 11:15 | RT.EKG_ITS ---
APPROVED REPORT Exam: Resting ECG Reason for Exam: ams Patient Location: E HR:136 bpm ECG Measurements Heart Rate 136 AXIS NC [id number] P [id number] QRSd 103 QRS 14 QT 412 T 146 QTc 620 Conclusion Atrial flutter...A-rate 293 Repol abnrm suggests ischemia, lateral leads...ST dep, T neg, I aVL V5 V6 Prolonged QT interval...QTc >500mS. A flutter vs afib. No STEMI.
[2021-10-23 11:22] VITALS: BP 139/104; PULSE 88; RESP 16; TEMP 36.6; O2SAT 94
[2021-10-23] MEDS: LORazepam 2 MG/ML VIAL 0.5 MG IVP ×2 (11:39→13:52)
--- NOTE | 2021-10-23 12:00 | RT.EKG_ITS ---
APPROVED REPORT Exam: Resting ECG Reason for Exam: abnl ekg Patient Location: E HR:68 bpm ECG Measurements Heart Rate 68 AXIS PA 72 P 0 QRSd 86 QRS 16 QT 375 T 117 QTc 398 Conclusion Sinus rhythm...normal P axis, V-rate 60- 99. Sinus. Normal axis. No STEMI. I have reviewed and interpreted ECG and agree with software generated interpretation.
[2021-10-23 13:22] LABS: Abs Immature Grans 0.01 10^3/uL (0.0-0.06); Absolute Basophil Count 0.02 10^3/uL (0.0-0.2); Absolute Eosinophil Count 0.07 10^3/uL (0.0-0.7); Absolute Lymphocyte Count 1.24 10^3/uL (1.2-3.4); Absolute Monocyte Count 0.58 10^3/uL (0.1-0.8); Absolute Neutrophil Count 1.38 10^3/uL (1.2-6.7); Basophils % 0.6; Eosinophils % 2.1; HCT 29.4 % (36.0-46.0); HGB 9.1 g/dL (11.2-15.7); Immature Grans % 0.3; Lymphocytes % 37.6; MCH 26.2 pg (27.0-33.0); MCV 85 fL (80-95); Monocytes % 17.6; Neutrophils % 41.8; Platelet Count 313 10^3/uL (130-400); RBC 3.47 10^6/uL (3.93-5.22); RDW 15.2 % (11.7-14.6); RDW-SD 46.2 fL
[2021-10-23 13:44] LABS: ALT 13 U/L (14-59); AST 12 U/L (15-37); Albumin 3.4 g/dL (3.4-5.0); Alkaline Phosphatase 76 U/L (46-116); Anion Gap 7.2 mmol/L (3-11); BUN 30 mg/dL (7-18); Bilirubin, Total 0.2 mg/dL (0.2-1.0); CO2 27.8 mmol/L (21.0-32.0); CREATININE 1.2 mg/dL (0.55-1.02); Calcium 8.7 mg/dL (8.5-10.1); Chloride 106 mmol/L (98-107); Estimated GFR 44.16 (mL/min/1.73m2); Glucose 131 mg/dL (74-106); Potassium 3.4 mmol/L (3.5-5.1); Sodium 141 mmol/L (136-145); TSH 1.03 uIU/mL (0.36-3.74); Total Protein 7.9 g/dL (6.4-8.2)
[2021-10-23] MEDS: Normal Saline 500 ML 1000 ML IV (14:01)
--- NOTE | 2021-10-23 15:21 | ED.GENADUL_ITS ---
Discharge Plan Disposition Patient Disposition: HOME Condition: Stable Discharge Details Clinical Impression: Tic Primary Care Provider: Marixa Kurtz ED Provider: Rosanna Burleson Home Meds and New Rx's Prescriptions: New lorazepam [Ativan] 1 mg tablet 1 mg PO DAILY PRNQty: 10 0RF potassium chloride 20 mEq tablet,ER particles/crystals 20 meq PO DAILY Qty: 5 0RF Continued calcium carbonate [Calcium 500] 500 mg calcium (1,250 mg) tablet 500 mg PO DAILY 0RF sertraline 50 mg tablet 75 mg PO DAILY 0RF trazodone 100 mg tablet 200 mg PO QHS 0RF meloxicam 15 mg tablet 15 mg PO DAILY 0RF Myrbetriq 25 mg tablet extended release 24 hr 25 mg PO DAILY Qty: 90 4RF Rx Instructions: replaces oxybutynin she has been taking hydroxyzine HCl 25 mg tablet 25 mg PO BID PRN0RF aspirin 81 mg tablet,delayed release (DR/EC) 81 mg PO DAILY 0RF Linzess 145 mcg capsule 145 mcg PO DAILY 0RF estradiol [Estrace] 0.01 % (0.1 mg/gram) cream 2 g vaginal .twice weekly Qty: 42.5 4RF omeprazole 40 MG capsule,delayed release(DR/EC) 40 mg PO DAILY 0RF polyethylene glycol 3350 [Miralax] 119 GM powder 15 ml PO DAILY PRN0RF vitamin B complex Tablet 1 tab PO DAILY 0RF lactulose 10 gram/15 mL solution 15 ml PO DAILY PRN PRN0RF Label Comments: TAKE 15ML BY MOUTH DAILY FOR CONSTIPATION cholecalciferol (vitamin D3) [Vitamin D3] 25 mcg (1,000 unit) Tablet 25 mcg PO DAILY 0RF naloxone [Narcan] 4 mg/actuation [place],Non-Aerosol 4 mg INTRANASAL Q3M PRN0RF diclofenac sodium 1 % Gel 3 g topical QID Qty: 1 0RF lorazepam 1 mg tablet 1 mg PO DAILY Qty: 20 0RF Discharge Instructions Additional Instructions: take the ativan as needed 1 mg table every 6 hours as needed see your pcp this week take the potassium as prescribed return earlier with new or worsening complaints do not drive while taking this medication stay hydrated and drink regular fluids Referrals: Marixa Kurtz [Primary Care Provider] - Discharge Data Discharge Date/Time-TO BE ENTERED AT DEPARTURE: 10/23/21 16:08 Medical Decision Making <DARIO Nath - Last Filed: 10/25/21 09:50> Patient's labs are Stable for her CBC within normal limits for patient Thyroid within normal limits, no significant electrolyte abnormality, hypokalemia, 3.4, supplemented with p.o. oral potassium Symptomatically improved, several tablets of oral Ativan for home Return precautions discussed and patient expressed understanding Patient observed for several hours in the emergency department She is fully alert and mentating with a normal neurological exam aside from visible tics throughout this encounter She is feeling improvement but does appear anxious at time of reassessment, she received 1 mg of Ativan Will follow with PCP in the outpatient setting [place] [address]50 10/23/21. Patient's daughter, who is on her HIPPA, contaced the department that the Potassium is being filled but the Ativan did not go through to be filled. Reviewed chart, Ativan was ordered at time of d/c. Called Flo jackson in [facility]. This was confirmed. Appears to have been error in electronic system. Verbally ordered Ativan as was initially ordered by Ms. Burleson. Medical Records Medical records reviewed: Yes I reviewed the patient's medical records. Lab Data Lab results reviewed: Yes I reviewed the patient's lab results. <DARIO Bangura - Last Filed: 10/24/21 08:56> Patient's labs are Stable for her CBC within normal limits for patient Thyroid within normal limits, no significant electrolyte abnormality, hypokalemia, 3.4, supplemented with p.o. oral potassium Symptomatically improved, several tablets of oral Ativan for home Return precautions discussed and patient expressed understanding Patient observed for several hours in the emergency department She is fully alert and mentating with a normal neurological exam aside from visible tics throughout this encounter She is feeling improvement but does appear anxious at time of reassessment, she received 1 mg of Ativan [place] 0850 10/23/21. Patient's daughter, who is on her HIPPA, contaced the department that the Potassium is being filled but the Ativan did not go through to be filled. Reviewed chart, Ativan was ordered at time of d/c. Called Flo jackson in [facility]. This was confirmed. Appears to have been error in electronic system. Verbally ordered Ativan as was initially ordered by Ms. Burleson. HPI <DARIO Nath - Last Filed: 10/25/21 09:50> General Date/Time Provider Initiated Documentation: 10/23/21 11:24 . HPI Narrative: This 70-year-old female with past medical history of movement disorder, renal insufficiency, goiter, fibromyalgia presents with report of seizure . She states she has had this for a while and that she ran out of her Ativan and this had kicked. She denies any chest pain or shortness of breath. She denies any dizziness or weakness. She denies prior history of alcohol consumption. She states that she does have a seizure history but that they are not really sure what type of seizures before. She states that her symptoms have been present for the past 24 hours. She denies any known exacerbating factors. She states that she ran out of her Ativan after the second episode today. She denies any recent illnesses or injuries. She denies any vision change, speech, or sensation change. Related Data Home Medications Medication Instructions Recorded Confirmed omeprazole 40 mg capsule,delayed 40 mg PO DAILY 05/19/14 10/23/21 release polyethylene glycol 3350 17 15 ml PO DAILY PRN 05/19/14 10/23/21 gram/dose oral powder (Miralax) cholecalciferol (vitamin D3) 25 25 mcg PO DAILY 01/05/20 10/23/21 mcg (1,000 unit) tablet (Vitamin D3) lactulose 10 gram/15 mL oral 15 ml PO DAILY PRN PRN 01/05/20 10/23/21 solution naloxone 4 mg/actuation nasal 4 mg INTRANASAL Q3M PRN 01/05/20 10/23/21 spray (Narcan) vitamin B complex 1 tab PO DAILY 01/05/20 10/23/21 diclofenac sodium 1 % topical gel 3 g TOPICAL QID #1 g 09/20/20 10/23/21 lorazepam 1 mg tablet 1 mg PO DAILY #20 tab 09/20/20 10/23/21 calcium carbonate 500 mg calcium 500 mg PO DAILY 10/19/20 10/23/21 (1,250 mg) tablet (Calcium 500) sertraline 50 mg tablet 75 mg PO DAILY tab 10/19/20 10/23/21 trazodone 100 mg tablet 200 mg PO QHS tab 01/03/21 10/23/21 mirabegron 25 mg tablet,extended 25 mg PO DAILY #90 tab 02/22/21 10/23/21 release 24 hr (Myrbetriq) aspirin 81 mg tablet,delayed 81 mg PO DAILY 06/23/21 10/23/21 release hydroxyzine HCl 25 mg tablet 25 mg PO BID PRN 06/23/21 10/23/21 linaclotide 145 mcg capsule 145 mcg PO DAILY 06/23/21 10/23/21 (Linzess) meloxicam 15 mg tablet 15 mg PO DAILY 08/08/21 10/23/21 estradiol (Estrace) 2 g VAGINAL .twice weekly #42.5 g 10/14/21 10/23/21 lorazepam 1 mg tablet (Ativan) 1 mg PO DAILY PRN #10 tab 10/23/21 potassium chloride 20 mEq 20 meq PO DAILY #5 tab 10/23/21 tablet,extended release(part/cryst) Previous Rx's Medication Instructions Recorded diclofenac sodium 1 % topical gel 3 g TOPICAL QID #1 g 09/20/20 lorazepam 1 mg tablet 1 mg PO DAILY #20 tab 09/20/20 mirabegron 25 mg tablet,extended 25 mg PO DAILY #90 tab 02/22/21 release 24 hr (Myrbetriq) estradiol (Estrace) 2 g VAGINAL .twice weekly #42.5 g 10/14/21 lorazepam 1 mg tablet (Ativan) 1 mg PO DAILY PRN #10 tab 10/23/21 potassium chloride 20 mEq 20 meq PO DAILY #5 tab 10/23/21 tablet,extended release(part/cryst) Allergies Allergy/AdvReac Type Severity Reaction Status Date / Time sulfamethoxazole Allergy Verified 10/23/21 11:28 [From Bactrim] trimethoprim [From Bactrim] Allergy Verified 10/23/21 11:28 morphine AdvReac Intermediate Psychosis Unverified 10/23/21 11:28 baclofen AdvReac Unknown Unverified 10/23/21 11:28 chlorthalidone AdvReac Unknown Unverified 10/23/21 11:28 codeine AdvReac Unknown Unverified 10/23/21 11:28 dextromethorphan AdvReac Unknown Unverified 10/23/21 11:28 gabapentin [From Neurontin] AdvReac Unknown Unverified 10/23/21 11:28 hydrochlorothiazide AdvReac Unknown Unverified 10/23/21 11:28 pregabalin AdvReac Unknown Dopey Unverified 10/23/21 11:28 General Stated Complaint: Seizure LOLITA: 3 Review of Systems <DARIO Nath - Last Filed: 10/25/21 09:50> All systems reviewed & are unremarkable except as noted in HPI and below PFSH <DARIO Nath - Last Filed: 10/25/21 09:50> All Active Problems (Updated 10/23/21 @ 15:36 by DARIO Nath) Tic (Acute) Left rotator cuff tear arthropathy (Acute) Primary osteoarthritis, left shoulder (Acute) Recurrent UTI (urinary tract infection) (Acute) Tendonitis of left rotator cuff (Acute) Depression (Chronic) Goiter (Acute) Fibromyalgia (Acute) KWAME (obstructive sleep apnea) (Chronic) Chronic pain (Chronic) Movement disorder (Acute) Muscle weakness (Acute) Left elbow contusion (Acute) Left displaced femoral neck fracture (Acute 09/16/20) Discharge planning issues (Acute) DVT prophylaxis (Acute) Chronic renal insufficiency, stage III (moderate) (Acute) Anemia (Chronic) Chronic pain syndrome (Chronic) Hypertension (Chronic) Fracture of left hip (Acute) Osteoarthritis of right knee (Acute) Steroid injection: 04/05/2020 Has had previous viscosupplementation injections. Primary osteoarthritis of left knee (Chronic) We will see the patient back in 4-1/2 months for possible repeat Synvisc 1 in her left knee would consider x-ray in her right knee if she is still significantly symptomatic Medical History (Updated 10/23/21 @ 15:36 by DARIO Nath) Chronic constipation Chronic insomnia IBS (irritable bowel syndrome) Recurrent UTI Urge incontinence Surgical History (Updated 09/26/21 @ 15:20 by DARIO Hurt) History of back surgery History of total left hip replacement (09/17/20) As treatment for a femoral neck fracture (DOI: 09/16/2020) Hx of cholecystectomy Social History Smoking/Tobacco Use Status: Never Smoking risk assessment performed?: Yes Alcohol Intake: never Drug use: Never Substance use type: does not use Do you feel safe at home: Yes Do you feel safe in your relationship?: Yes Additional Social history: Grew up in [place], still lives in family home in [facility], lives alone In [place], still lives with her family health in [facility]. Still lives in family all Exam <DARIO Nath - Last Filed: 10/25/21 09:50> HENMT Head: normal to inspection Mouth: oral mucosae normal Throat: uvula midline Eyes Pupils: PERRL EOM: EOM intact bilaterally Neck Other: no carotid bruit, no midline tenderness Resp Effort & Inspection: normal respiratory effort Auscultation: clear to auscultation bilaterally Cardio Rate: regular rate Rhythm: regular rhythm Skin General skin exam: no rashes or lesions noted Neuro General: patient alert and patient oriented x3 Cranial Nerves: CN's II-XI intact bilaterally and tongue midline Cognition: normal cognition Speech: speech normal Motor: strength 5/5 throughout and no pronator drift Sensory Exam: no sensory deficits noted Other: generalized movements, tics a&ox4 neg pronatory drift Extrem Other: distal pulses intact Psych Appearance: well kempt Attitude: cooperative Thought Process: normal Thought Content: normal Course <DARIO Nath - Last Filed: 10/25/21 09:50> Vital Signs Vital signs: Vital Signs Temperature 36.6 C 10/23/21 11:22 Pulse 88 10/23/21 11:22 Respiratory Rate 16 10/23/21 11:22 Blood Pressure 139/104 H 10/23/21 11:22 Pulse Oximetry 94 10/23/21 11:22 Temperature 36.6 C 10/23/21 11:22 Temperature Source Temporal Artery Scan 10/23/21 11:22 Pulse 88 10/23/21 11:22 Respiratory Rate 16 10/23/21 11:22 Respiratory Effort Non-Labored 10/23/21 11:33 Respiratory Depth Normal 10/23/21 11:33 Respiratory Pattern Normal 10/23/21 11:33 Blood Pressure 139/104 H 10/23/21 11:22 Blood Pressure Position Supine 10/23/21 11:22 Pulse Oximetry 94 10/23/21 11:22 Oxygen Delivery Method Room Air 10/23/21 11:22 Oxygen Flow Rate 0 10/23/21 11:22 Pain Level 0 10/23/21 11:22 Lab/Test Results Lab/Test Results: Laboratory Tests Range/Units 05/08/22 05/08/22 11:17 11:17 WBC (4.4-10.8) 10^3/uL 3.30 L RBC (3.93-5.22) 10^6/uL 3.47 L Hgb (11.2-15.7) g/dL 9.1 L Hct (36.0-46.0) % 29.4 L MCV (80-95) fL 85 MCH (27.0-33.0) pg 26.2 L MCHC (32.0-36.0) % 31.0 L RDW (11.7-14.6) % 15.2 H Plt Count (130-400) 10^3/uL 313 MPV (8.0-11.0) fL 10.0 Immature Gran % 0.3 Neutrophils % 41.8 Lymphocytes % 37.6 Monocytes % 17.6 Eosinophils % 2.1 Basophils % 0.6 Nucleated RBC % (0.0-0.3) % 0.0 Absolute Neutrophils (1.2-6.7) 10^3/uL 1.38 Absolute Lymphocytes (1.2-3.4) 10^3/uL 1.24 Absolute Monocytes (0.1-0.8) 10^3/uL 0.58 Absolute Eosinophils (0.0-0.7) 10^3/uL 0.07 Absolute Basophils (0.0-0.2) 10^3/uL 0.02 Sodium (136-145) mmol/L 141 Potassium (3.5-5.1) mmol/L 3.4 L Chloride (98-107) mmol/L 106 Carbon Dioxide (21.0-32.0) mmol/L 27.8 Anion Gap (3-11) mmol/L 7.2 BUN (7-18) mg/dL 30 H Creatinine (0.55-1.02) mg/dL 1.2 H Estimated GFR/1.73 m2 (mL/min/1.73m2) 44.16 Glucose (74-106) mg/dL 131 H Calcium (8.5-10.1) mg/dL 8.7 Total Bilirubin (0.2-1.0) mg/dL 0.2 AST (15-37) U/L 12 L ALT (14-59) U/L 13 L Alkaline Phosphatase (46-116) U/L 76 Total Protein (6.4-8.2) g/dL 7.9 Albumin (3.4-5.0) g/dL 3.4 TSH (0.36-3.74) uIU/mL 1.03
[2021-10-23 15:38] VITALS: BP 140/92; PULSE 69; RESP 22; TEMP 36.7; O2SAT 92
[2021-10-23] MEDS: LORazepam 1 MG TAB 2 MG PO (15:47)
[2021-10-23 15:51] VITALS: BP 140/92; PULSE 69; RESP 22; TEMP 36.7; O2SAT 92
--- NOTE | 2021-10-24 08:44 | NUR.NOTE ---
Nursing Note: Accessed pt record to get HIPPA information of Renetta Corrigan for Gabrielle Mccann. Josefa Tian
== END 2021-10-23 16:08 | disposition home or self-care (01) ==
PROVIDERS: Emergency Provider Physician Assistant; PCP Family Medicine
DX: F95.8 Other tic disorders (principal); R41.82 Altered mental status, unspecified; R94.31 Abnormal electrocardiogram [ECG] [EKG]; E87.6 Hypokalemia
CPT/HCPCS: 36416; 80053; 82962; 93005; 96361; 96374; 96376; 99284; 84443; 85025; 93010; J2060

== ENCOUNTER 2022-01-13 12:38 | Observation (INO) | payer MEDICARE, SELFPAY ==
[2022-01-13 12:47] VITALS: BP 163/88; PULSE 83; RESP 20; TEMP 36.8; O2SAT 94
[2022-01-13 13:29] LABS: Abs Immature Grans 0.03 10^3/uL (0.0-0.06); Absolute Basophil Count 0.02 10^3/uL (0.0-0.2); Absolute Lymphocyte Count 1.23 10^3/uL (1.2-3.4); Absolute Monocyte Count 1.09 10^3/uL (0.1-0.8); Absolute Neutrophil Count 6.68 10^3/uL (1.2-6.7); Basophils % 0.2; HCT 30.6 % (36.0-46.0); HGB 9.8 g/dL (11.2-15.7); Immature Grans % 0.3; Lymphocytes % 13.6; MCV 81 fL (80-95); MPV 10.3 fL (8.0-11.0); Neutrophils % 73.9; Platelet Count 280 10^3/uL (130-400); RBC 3.77 10^6/uL (3.93-5.22); RDW 15.5 % (11.7-14.6); RDW-SD 45.4 fL; WBC 9.05 10^3/uL (4.4-10.8)
[2022-01-13 13:37] LABS: Bilirubin Negative (Negative); Blood Moderate (Negative); Clarity Cloudy (Clear); Glucose Negative (Negative); Ketones Trace mg/dL (Negative); Leukocyte Esterase Trace (Negative); Nitrite Positive (Negative); Specific Gravity >= 1.030 (1.005-1.025); Urobilinogen 0.2 EU/dL (Up TO 0.2)
--- NOTE | 2022-01-13 13:45 | DI.CT_ITS ---
Exam(s) CT CHEST/ABD/PEL WO EXAM: CT CHEST/ABD/PEL WO CLINICAL HISTORY: fall with left lateral pain, abd pain hip pain TECHNIQUE: Imaging Protocol: Axial computed tomography images with coronal and sagittal reformatted images were created and reviewed COMPARISON: CT CT ABDOMEN PELVIS W from 08/04/2019 FINDINGS: Lack of contrast does limit evaluation of the abdominal pelvic organs. CHEST: Tracheobronchial tree: Patent where visualized. Pulmonary parenchyma: There are small bilateral pleural effusions left greater than right. Subjacent infiltrates are present. No architectural distortion. Mediastinum and Ruth: No dominant adenopathy or fluid collection. The esophagus is unremarkable. Ther e is a large hiatal hernia. Thyroid gland: Unremarkable. Pleura: No pneumothorax. Heart: The heart is not dilated. Coronary artery calcifications are present. No pericardial effusion . Aorta: Thoracic aorta non-dilated. Atherosclerosis. Lymph nodes: Within normal limits. Bones:Within normal limits for the patient's age. Prior lower cervical surgery. No displaced rib fr actures are seen. Soft tissues: Unremarkable. ABDOMEN: Liver: Normal density. No measurable mass. Gallbladder and Biliary Tract: Status post cholecystectomy. No significant biliary ductal dilatation . Pancreas: Normal density, no abnormal calcifications or inflammatory process. Spleen: Normal. Adrenals: No masses seen. Kidneys: Normal size, contour and axis. No radiodense stones or obstructive uropathy. No masses seen. Abdominal Aorta: Abdominal portion non-dilated. Atherosclerosis. Bowel: No obstruction or bowel wall thickening. No evidence of appendicitis. Colonic diverticulosis but no evidence of acute diverticulitis. Peritoneal Cavity: No ascites, collection or mesenteric inflammatory response. No free air. Lymph Nodes: Within normal limits. Bones: Within normal limits for the patient's age. The patient has a left total hip replacement. Po stsurgical changes in the lower lumbar spine. No acute fracture. Soft Tissues: Unremarkable. PELVIS: Bladder: Symmetric distention, no gross wall thickening. Reproductive Organs: Status post hysterectomy. Lymph Nodes: Within normal limits. Bones: Within normal limits for the patient's age. IMPRESSION: 1. Small bilateral pleural effusions with subjacent infiltrates which may represent atelectasis or pn eumonia. 2. No evidence of thoracic injury. 3. No evidence of abdominal or pelvic organ injury on this noncontrast examination. 4. Results of this exam have been verbally communicated with provider. RADIATION DOSE DELIVERED: 1,471.12mGy.cm Total DLP 1,471.12mGy.cm Total DLP DATA REPOSITORY: All CT scans at this facility are submitted to the National Radiology Data Registry (NRDR) Dose Index Registry (DIR) with the [employer] (A[employer]). RADIATION OPTIMIZATION: All CT scans at this facility use at least one of these dose optimization te chniques: automated exposure control; mA and/or kV adjustment per patient size (includes targeted exa ms where dose is matched to clinical indication); or iterative reconstruction.
[2022-01-13 13:46] LABS: ALT 30 U/L (14-59); AST 104 U/L (15-37); Albumin 3.5 g/dL (3.4-5.0); Alkaline Phosphatase 70 U/L (46-116); Anion Gap 12.1 mmol/L (3-11); BUN 21 mg/dL (7-18); Bilirubin, Total 0.4 mg/dL (0.2-1.0); CO2 25.9 mmol/L (21.0-32.0); CREATININE 1.2 mg/dL (0.55-1.02); Calcium 8.9 mg/dL (8.5-10.1); Chloride 103 mmol/L (98-107); Estimated GFR 44.04 (mL/min/1.73m2); Glucose 118 mg/dL (74-106); Potassium 3.2 mmol/L (3.5-5.1); Sodium 141 mmol/L (136-145); Total Protein 8.1 g/dL (6.4-8.2)
[2022-01-13 13:50] LABS: Bacteria Many HPF (Negative); C & S Indicated? Yes; Casts 0-2 Hyaline LPF (Negative); Crystals Negative HPF (Negative); Epithelial Cells Few HPF (Negative); Mucus Negative (Negative)
[2022-01-13 14:34] LABS: Lipase 24 U/L (73-393)
[2022-01-13] MEDS: MORPHine 4 MG/ML SYR IVP (14:53)
[2022-01-13 14:56] VITALS: BP 135/54; PULSE 79; RESP 16; TEMP 37.1; O2SAT 93
[2022-01-13] MEDS: POTASSIUM CHLORIDE 20 MEQ, POTASSIUM CHLORIDE 10 MEQ 30 MEQ PO (15:48)
[2022-01-13] MEDS: Normal Saline 500 ML IV (15:48)
[2022-01-13 16:00] VITALS: BP 162/89; PULSE 86; RESP 18; TEMP 37.3; O2SAT 96
--- NOTE | 2022-01-13 16:11 | ED.GENADUL_ITS ---
Discharge Plan Disposition Patient Disposition: STILL A PATIENT Discharge Details Admit Date/Time: 01/13/22 17:31 Admit Provider: Kwame Schultz Attending Provider: Kwame Schultz Primary Care Provider: Marixa Kurtz ED Provider: Gabrielle Mccann Discharge Data Discharge Date/Time-TO BE ENTERED AT DEPARTURE: 01/13/22 18:15 Medical Decision Making <Raymond Payton NP - Last Filed: 01/15/22 11:11> Patient presenting the emergency department for chief complaint of fall with left rib pain, bilateral hip pain. She states increasing weakness over the past week with several falls this week. Does have history of fibromyalgia and left hip replacement. Physical exam shows generalized nonfocal tenderness to left hips, significant lateral left rib tenderness to palpation, and slight epigastric tenderness. Patient does state early feelings of fullness when she eats and so she has had minimal food intake also over the past week. Exam is otherwise nonfocal. We will plan on checking labs, CT imaging given abdominal complaint of ankle pain and hip discomfort along with trauma. Review of labs show a stable anemia, CMP does show at baseline renal function with an anion gap of 12.2, otherwise nondiagnostic. Urinalysis does show concentration with moderate blood ketones and positive for nitrites and leukocyte esterase. We will plan on giving patient fluids and Rocephin for UTI. Patient signed out to Gabrielle Mccann pending CT imaging results Care transition to myself from Raymond Payton NP. Please see his initial note regarding history, presentation and exam. In brief, patient is a pleasant 71-year-old with concern for multiple falls. Has had increased confusion, generalized weakness. Has been declining at home. Patient diagnosed with UTI. Was started on Rocephin. Time I assumed care, CT pending for further evaluation of the patient's multiple falls and possible traumatic injuries. Contacted by radiologist. No significant traumatic abnormality on CT. Small bilateral pleural effusions noted. discussed findings with the patient and her daughter. Given the number of times she has fallen, her increased confusion and general decline at home, I feel it would be safest for patient to be admitted here for continued observation, antibiotic, physical therapy evaluation. Patient and daughter are in agreement with this plan. Will obtain COVID testing. While in-house, patient would benefit from discussion with care management regarding long-term plans. Daughter, patient I also discussed the concerns for the continued use of oxycodone as this may also be increasing her fall risk and chronic symptoms. Consulted with hospitalist who agrees to admission for UTI, weakness, frequent falls. Lab Data Lab results reviewed: Yes I reviewed the patient's lab results. <DARIO Bangura - Last Filed: 01/14/22 01:30> Patient presenting the emergency department for chief complaint of with left rib pain, bilateral hip pain. She states increasing weakness over the past week with several falls this week. Does have history of fibromyalgia and left hip replacement. Physical exam shows generalized nonfocal tenderness to left hips, significant lateral left rib tenderness to palpation, and slight epigastric tenderness. Patient does state early feelings of fullness when she eats and so she has had minimal food intake also over the past week. Exam is otherwise nonfocal. We will plan on checking labs, CT imaging given abdominal complaint of ankle pain and hip discomfort along with trauma. Review of labs show a stable anemia, CMP does show at baseline renal function with an anion gap of 12.2, otherwise nondiagnostic. Urinalysis does show concentration with moderate blood ketones and positive for nitrites and leukocyte esterase. We will plan on giving patient fluids and Rocephin for UTI. Patient signed out to Gabrielle Mccann pending CT imaging results Care transition to myself from Raymond Payton NP. Please see his initial note regarding history, presentation and exam. In brief, patient is a pleasant 71-year-old with concern for multiple falls. Has had increased confusion, generalized weakness. Has been declining at home. Patient diagnosed with UTI. Was started on Rocephin. Time I assumed care, CT pending for further evaluation of the patient's multiple falls and possible traumatic injuries. Contacted by radiologist. No significant traumatic abnormality on CT. Small bilateral pleural effusions noted. discussed findings with the patient and her daughter. Given the number of times she has fallen, her increased confusion and general decline at home, I feel it would be safest for patient to be admitted here for continued observation, antibiotic, physical therapy evaluation. Patient and daughter are in agreement with this plan. Will obtain COVID testing. While in-house, patient would benefit from discussion with care management regarding long-term plans. Daughter, patient I also discussed the concerns for the continued use of oxycodone as this may also be increasing her fall risk and chronic symptoms. Consulted with hospitalist who agrees to admission for UTI, weakness, frequent falls. HPI <Raymond Payton NP - Last Filed: 01/15/22 11:11> General Mode of arrival: EMS . Date/Time Provider Initiated Documentation: 01/13/22 13:00 . Limitations to Documentation: no limitations . Information obtained by: patient and RN notes reviewed . History of Present Illness 71 year old F presents to the emergency department with the chief complaint of fall with hip pain and rib pain, described as moderate, with intensity rated at 7. Quality is described as aching and sharp, and is localized to the chest, left and lower extremity. Patient reports no radiation. Patient started experiencing this week(s) (1) and it has been constant. Immobilization improves symptom(s), Other factors that worsen symptoms (falls) . Patient did receive the following treatments prior to arrival, other (oxycodone) Related Data Home Medications Medication Instructions Recorded Confirmed omeprazole 40 mg capsule,delayed 40 mg PO DAILY 05/19/14 01/13/22 release polyethylene glycol 3350 17 17 g PO DAILY PRN PRN 05/19/14 01/14/22 gram/dose oral powder (Miralax) cholecalciferol (vitamin D3) 25 50 mcg PO DAILY 01/05/20 01/14/22 mcg (1,000 unit) tablet (Vitamin D3) lactulose 10 gram/15 mL oral 15 ml PO DAILY PRN PRN 01/05/20 01/13/22 solution naloxone 4 mg/actuation nasal 4 mg intranasal Q3M PRN 01/05/20 01/13/22 spray (Narcan) vitamin B complex 1 tab PO DAILY 01/05/20 01/13/22 calcium carbonate 500 mg calcium 500 mg PO DAILY 10/19/20 01/13/22 (1,250 mg) tablet (Calcium 500) sertraline 50 mg tablet 75 mg PO DAILY 10/19/20 01/13/22 trazodone 100 mg tablet 200 mg PO HS PRN PRN 01/03/21 01/14/22 aspirin 81 mg tablet,delayed 81 mg PO DAILY 06/23/21 01/13/22 release linaclotide 145 mcg capsule 145 mcg PO DAILY 06/23/21 01/13/22 (Linzess) meloxicam 15 mg tablet 15 mg PO DAILY 08/08/21 01/13/22 estradiol 0.01% (0.1 mg/gram) 2 g vaginal .twice weekly 10/14/21 01/13/22 vaginal cream (Estrace) infection prevention #42.5 grams lorazepam 1 mg tablet (Ativan) 1 mg PO DAILY PRN #10 tabs 10/23/21 01/13/22 oxycodone 40 mg tablet,crush 40 tab PO BID 01/13/22 01/13/22 resistant,extended release 12 hr (OxyContin) amlodipine 10 mg tablet 10 mg PO DAILY 01/14/22 01/14/22 prochlorperazine maleate 5 mg 5 mg PO BID PRN PRN 01/14/22 01/14/22 tablet scopolamine base 1 mg over 3 days 1 patch topical Q72H 01/14/22 01/14/22 transdermal patch sennosides 8.6 mg tablet (senna) 8.6 mg PO QPM 01/14/22 01/14/22 Previous Rx's Medication Instructions Recorded estradiol 0.01% (0.1 mg/gram) 2 g vaginal .twice weekly 10/14/21 vaginal cream (Estrace) infection prevention #42.5 grams lorazepam 1 mg tablet (Ativan) 1 mg PO DAILY PRN #10 tabs 10/23/21 Allergies Allergy/AdvReac Type Severity Reaction Status Date / Time sulfamethoxazole Allergy Verified 01/13/22 15:44 [From Bactrim] trimethoprim [From Bactrim] Allergy Verified 01/13/22 15:44 morphine AdvReac Intermediate Psychosis Unverified 01/13/22 15:44 baclofen AdvReac Unknown Unverified 01/13/22 15:44 chlorthalidone AdvReac Unknown Unverified 01/13/22 15:44 codeine AdvReac Unknown Unverified 01/13/22 15:44 dextromethorphan AdvReac Unknown Unverified 01/13/22 15:44 gabapentin [From Neurontin] AdvReac Unknown Unverified 01/13/22 15:44 hydrochlorothiazide AdvReac Unknown Unverified 01/13/22 15:44 pregabalin AdvReac Unknown Dopey Unverified 01/13/22 15:44 General Stated Complaint: GenMedical LOLITA: 3 Review of Systems <Raymond Payton NP - Last Filed: 01/15/22 11:11> Constitutional Constitutional: Denies chills, Denies fever(s), Reports frequent falls, Denies headache(s), Reports lethargy and Reports malaise Eyes Eyes: Denies change in vision ENT Ears, Nose, Mouth, and Throat: Denies dizziness, Denies facial pain, Denies headache(s), Denies nasal trauma and Denies neck pain Cardiovascular Cardiovascular: Denies chest pain, Denies syncope, Denies dyspnea and Denies dyspnea on exertion Respiratory Respiratory: Denies cough, Reports pain on inspiration, Denies dyspnea and Denies dyspnea on exertion Gastrointestinal Gastrointestinal: Denies abdominal pain, Denies diarrhea, Denies nausea and Denies vomiting Genitourinary Genitourinary: Denies dysuria, Denies urinary incontinence and Denies urinary u rgency Musculoskeletal Musculoskeletal: Reports as per HPI, Reports arthralgias and Denies neck pain Integumentary/Breasts Skin/Breast: Denies rash and Denies wounds Neurologic Neurologic: Denies confusion, Denies dizziness, Denies syncope, Reports frequent falls and Denies headache(s) Psychiatric Psychiatric: Denies confusion PFSH <Raymond Payton NP - Last Filed: 01/15/22 11:11> All Active Problems (Updated 01/13/22 @ 21:34 by Keira Malave NP) Left rotator cuff tear arthropathy (Acute) Primary osteoarthritis, left shoulder (Acute) Recurrent UTI (urinary tract infection) (Acute) Tendonitis of left rotator cuff (Acute) Depression (Chronic) Goiter (Acute) Fibromyalgia (Chronic) KWAME (obstructive sleep apnea) (Chronic) Chronic pain (Chronic) Movement disorder (Acute) Muscle weakness (Acute) Left elbow contusion (Acute) Left displaced femoral neck fracture (Acute 09/16/20) Discharge planning issues (Acute) DVT prophylaxis (Acute) Chronic renal insufficiency, stage III (moderate) (Acute) Anemia (Chronic) Chronic pain syndrome (Chronic) Hypertension (Chronic) Fracture of left hip (Acute) Osteoarthritis of right knee (Acute) Steroid injection: 04/05/2020 Has had previous viscosupplementation injections. Primary osteoarthritis of left knee (Chronic) We will see the patient back in 4-1/2 months for possible repeat Synvisc 1 in her left knee would consider x-ray in her right knee if she is still significantly symptomatic Medical History (Updated 01/13/22 @ 21:34 by Keira Malave NP) Chronic constipation Chronic insomnia IBS (irritable bowel syndrome) Recurrent UTI Urge incontinence Surgical History (Updated 09/26/21 @ 15:20 by DARIO Hurt) History of back surgery History of total left hip replacement (09/17/20) As treatment for a femoral neck fracture (DOI: 09/16/2020) Hx of cholecystectomy Social History Smoking/Tobacco Use Status: Never Smoking risk assessment performed?: Yes Alcohol Intake: never Drug use: Never Substance use type: does not use Do you feel safe at home: Yes Do you feel safe in your relationship?: Yes Additional Social history: Grew up in [place], still lives in family home in [facility], lives alone In [place], still lives with her family health in [facility]. Still lives in family all Exam <Raymond Payton NP - Last Filed: 01/15/22 11:11> Const General: cooperative and no acute distress Orientation: alert, awake and oriented x3 HENMT Mouth: moist mucous membranes Chest Chest: localized rib tenderness with anteroposterior compression left mid- axillary line involving the 8th rib, involving the 9th rib and involving the 10th rib Resp Effort & Inspection: normal respiratory effort, able to speak in complete sentences and no respiratory distress Auscultation: clear to auscultation bilaterally Cardio Rate: regular rate Rhythm: regular rhythm Heart Sounds: S1 normal and S2 normal Back/Spine/Pelvis Pelvis: no pain with anterior-posterior compression, no pain with lateral compression and no tenderness over symphysis pubis Skin General skin exam: no rashes or lesions noted Neuro General: patient alert, patient awake, patient oriented x3, moves all extremities and no focal motor deficits Extrem General: no pedal edema Right lower extremity: hip/thigh Details: tenderness Location: of the hip and abnormal ROM Details: pain with active ROM during; no swelling Left lower extremity: hip/thigh Details: tenderness Location: of the hip Location: laterally and abnormal ROM Details: pain with active ROM; no swelling Course <Raymond Payton NP - Last Filed: 01/15/22 11:11> Vital Signs Vital signs: Vital Signs Temperature 36.8 C 01/13/22 12:47 Pulse 83 01/13/22 12:47 Respiratory Rate 20 01/13/22 12:47 Blood Pressure 163/88 H 01/13/22 12:47 Pulse Oximetry 94 01/13/22 12:47 Temperature 37.3 C 01/13/22 16:00 Temperature Source Temporal Artery Scan 01/13/22 16:00 Pulse 86 01/13/22 16:00 Respiratory Rate 18 01/13/22 16:00 Respiratory Effort 01/13/22 14:29 Blood Pressure 162/89 H 01/13/22 16:00 Blood Pressure Position Sitting 01/13/22 12:47 Pulse Oximetry 96 01/13/22 16:00 Oxygen Delivery Method Room Air 01/13/22 16:00 Oxygen Flow Rate 0 01/13/22 16:00 Pain Level 9 01/13/22 16:00 Lab/Test Results Lab/Test Results: 01/13/22 13:25 Urine - Reflex from Ua Urine Culture - Pending Laboratory Tests Range/Units 01/13/22 01/13/22 01/13/22 13:10 13:25 13:25 WBC (4.4-10.8) 10^3/uL 9.05 RBC (3.93-5.22) 10^6/uL 3.77 L Hgb (11.2-15.7) g/dL 9.8 L Hct (36.0-46.0) % 30.6 L MCV (80-95) fL 81 MCH (27.0-33.0) pg 26.0 L MCHC (32.0-36.0) % 32.0 RDW (11.7-14.6) % 15.5 H Plt Count (130-400) 10^3/uL 280 MPV (8.0-11.0) fL 10.3 Immature Gran % 0.3 Neutrophils % 73.9 Lymphocytes % 13.6 Monocytes % 12.0 Eosinophils % 0.0 Basophils % 0.2 Nucleated RBC % (0.0-0.3) % 0.0 Absolute Neutrophils (1.2-6.7) 10^3/uL 6.68 Absolute Lymphocytes (1.2-3.4) 10^3/uL 1.23 Absolute Monocytes (0.1-0.8) 10^3/uL 1.09 H Absolute Eosinophils (0.0-0.7) 10^3/uL 0.00 Absolute Basophils (0.0-0.2) 10^3/uL 0.02 Sodium (136-145) mmol/L 141 Potassium (3.5-5.1) mmol/L 3.2 L Chloride (98-107) mmol/L 103 Carbon Dioxide (21.0-32.0) mmol/L 25.9 Anion Gap (3-11) mmol/L 12.1 H BUN (7-18) mg/dL 21 H Creatinine (0.55-1.02) mg/dL 1.2 H Estimated GFR/1.73 m2 (mL/min/1.73m2) 44.04 Glucose (74-106) mg/dL 118 H Calcium (8.5-10.1) mg/dL 8.9 Total Bilirubin (0.2-1.0) mg/dL 0.4 AST (15-37) U/L 104 H ALT (14-59) U/L 30 Alkaline Phosphatase (46-116) U/L 70 Total Protein (6.4-8.2) g/dL 8.1 Albumin (3.4-5.0) g/dL 3.5 Lipase (73-393) U/L Urine Color (Yellow) Yellow Urine Clarity (Clear) Cloudy Urine pH (5-8) 6.0 Ur Specific [place] (1.005-1.025) >= 1.030 H Urine Protein (Negative) mg/dL 30 H Urine Ketones (Negative) mg/dL Trace H Urine Blood (Negative) Moderate H Urine Nitrite (Negative) Positive H Urine Bilirubin (Negative) Negative Urine Urobilinogen (Up TO 0.2) EU/dL 0.2 Ur Leukocyte Esterase (Negative) Trace H Urine RBC (0-2) HPF 5-10 H Urine WBC (0-5) HPF 10-20 H Ur Epithelial Cells (Negative) HPF Few Urine Crystals (Negative) HPF Negative Urine Bacteria (Negative) HPF Many Urine Casts (Negative) LPF 0-2 Hyaline Urine Mucus (Negative) Negative Ur Culture Indicated? Yes Urine Glucose (Negative) mg/dL Negative Range/Units 01/13/22 13:25 WBC (4.4-10.8) 10^3/uL RBC (3.93-5.22) 10^6/uL Hgb (11.2-15.7) g/dL Hct (36.0-46.0) % MCV (80-95) fL MCH (27.0-33.0) pg MCHC (32.0-36.0) % RDW (11.7-14.6) % Plt Count (130-400) 10^3/uL MPV (8.0-11.0) fL Immature Gran % Neutrophils % Lymphocytes % Monocytes % Eosinophils % Basophils % Nucleated RBC % (0.0-0.3) % Absolute Neutrophils (1.2-6.7) 10^3/uL Absolute Lymphocytes (1.2-3.4) 10^3/uL Absolute Monocytes (0.1-0.8) 10^3/uL Absolute Eosinophils (0.0-0.7) 10^3/uL Absolute Basophils (0.0-0.2) 10^3/uL Sodium (136-145) mmol/L Potassium (3.5-5.1) mmol/L Chloride (98-107) mmol/L Carbon Dioxide (21.0-32.0) mmol/L Anion Gap (3-11) mmol/L BUN (7-18) mg/dL Creatinine (0.55-1.02) mg/dL Estimated GFR/1.73 m2 (mL/min/1.73m2) Glucose (74-106) mg/dL Calcium (8.5-10.1) mg/dL Total Bilirubin (0.2-1.0) mg/dL AST (15-37) U/L ALT (14-59) U/L Alkaline Phosphatase (46-116) U/L Total Protein (6.4-8.2) g/dL Albumin (3.4-5.0) g/dL Lipase (73-393) U/L 24 Urine Color (Yellow) Urine Clarity (Clear) Urine pH (5-8) Ur Specific [place] (1.005-1.025) Urine Protein (Negative) mg/dL Urine Ketones (Negative) mg/dL Urine Blood (Negative) Urine Nitrite (Negative) Urine Bilirubin (Negative) Urine Urobilinogen (Up TO 0.2) EU/dL Ur Leukocyte Esterase (Negative) Urine RBC (0-2) HPF Urine WBC (0-5) HPF Ur Epithelial Cells (Negative) HPF Urine Crystals (Negative) HPF Urine Bacteria (Negative) HPF Urine Casts (Negative) LPF Urine Mucus (Negative) Ur Culture Indicated? Urine Glucose (Negative) mg/dL Sign Out <Raymond Payton NP - Last Filed: 01/15/22 11:11> Sign Out Data: Sign Out Comment: Patient pending CT imaging and suspicion of admission for weakness, multiple falls, and UTI Last updated by Raymond Payton NP at 01/13/22 16:16
[2022-01-13] MEDS: ACETAMINOPHEN 1,000 MG/100 ML BTL 400 MG IVPB (16:48)
[2022-01-13 16:49] VITALS: RESP 20
[2022-01-13 17:37] LABS: Source Nasal/Nares
[2022-01-13 18:28] VITALS: BP 145/82; PULSE 83; RESP 16; TEMP 36.9; O2SAT 96
--- NOTE | 2022-01-13 18:52 | HPE_ITS ---
Date of service: 01/13/22 Time of Service: 18:53 Assessment and Plan Assessment and plan (1) Recurrent UTI (urinary tract infection): Status: Acute Assessment and plan: Ceftriaxone started in the ED, will continue until Cx is back (2) Depression: Status: Chronic Assessment and plan: Stable - continue home meds (3) Fibromyalgia: Status: Chronic Assessment and plan: Takes oxycodone at home and it works well for her; . Will continue home regimen. (4) Chronic constipation: Assessment and plan: Bowel meds (5) Chronic insomnia: Assessment and plan: Trazodone at home; will continue (6) DVT prophylaxis: Status: Acute Assessment and plan: Enoxaparin (7) Discharge planning issues: Status: Acute Assessment and plan: IV abx;, IVF, home with family when medically stable History of Present Illness History of Present Illness Chief Complaint: UTI; confusion Narrative: This 71 year old female patient with past medical history of fibromyalgia, hypertension, and left hip replacement, presented to the [facility] emergency department for the chief complaint of falling with resulting left rib and bilateral hip pain.? She states she has had increasing weakness over the past week with several falls this week.? Physical exam shows generalized nonfocal tenderness to left hips, significant lateral left rib tenderness to palpation.? She also states she has not had a good appetite this week and has had decreased food intake. Review of labs, she has anemia at her baseline,, CMP reveals baseline renal function with an anion gap of 12.2, otherwise nondiagnostic.? Urinalysis does show concentration with moderate blood ketones and positive for nitrites and leukocyte esterase.? She was given fluids and Rocephin for UTI in the ED. She is being admitted for IV abx. Review of Systems All systems reviewed & are unremarkable except as noted in HPI and below PFSH All Active Problems (Updated 01/13/22 @ 21:34 by Keira Malave NP) Left rotator cuff tear arthropathy (Acute) Primary osteoarthritis, left shoulder (Acute) Recurrent UTI (urinary tract infection) (Acute) Tendonitis of left rotator cuff (Acute) Depression (Chronic) Goiter (Acute) Fibromyalgia (Chronic) KWAME (obstructive sleep apnea) (Chronic) Chronic pain (Chronic) Movement disorder (Acute) Muscle weakness (Acute) Left elbow contusion (Acute) Left displaced femoral neck fracture (Acute 09/16/20) Discharge planning issues (Acute) DVT prophylaxis (Acute) Chronic renal insufficiency, stage III (moderate) (Acute) Anemia (Chronic) Chronic pain syndrome (Chronic) Hypertension (Chronic) Fracture of left hip (Acute) Osteoarthritis of right knee (Acute) Steroid injection: 04/05/2020 Has had previous viscosupplementation injections. Primary osteoarthritis of left knee (Chronic) We will see the patient back in 4-1/2 months for possible repeat Synvisc 1 in her left knee would consider x-ray in her right knee if she is still significantly symptomatic Medical History (Updated 01/13/22 @ 21:34 by Keira Malave NP) Chronic constipation Chronic insomnia IBS (irritable bowel syndrome) Recurrent UTI Urge incontinence Surgical History (Updated 09/26/21 @ 15:20 by DARIO Hurt) History of back surgery History of total left hip replacement (09/17/20) As treatment for a femoral neck fracture (DOI: 09/16/2020) Hx of cholecystectomy Social History Smoking/Tobacco Use Status: Never Smoking risk assessment performed?: Yes Alcohol Intake: never Drug use: Never Substance use type: does not use Do you feel safe at home: Yes Do you feel safe in your relationship?: Yes Additional Social history: Grew up in [place], still lives in family home in [facility], lives alone In [place], still lives with her family health in [facility]. Still lives in family all Meds Allergies and Home Medications Allergies Allergy/AdvReac Type Severity Reaction Status Date / Time sulfamethoxazole Allergy Verified 01/13/22 15:44 [From Bactrim] trimethoprim [From Bactrim] Allergy Verified 01/13/22 15:44 morphine AdvReac Intermediate Psychosis Unverified 01/13/22 15:44 baclofen AdvReac Unknown Unverified 01/13/22 15:44 chlorthalidone AdvReac Unknown Unverified 01/13/22 15:44 codeine AdvReac Unknown Unverified 01/13/22 15:44 dextromethorphan AdvReac Unknown Unverified 01/13/22 15:44 gabapentin [From Neurontin] AdvReac Unknown Unverified 01/13/22 15:44 hydrochlorothiazide AdvReac Unknown Unverified 01/13/22 15:44 pregabalin AdvReac Unknown Dopey Unverified 01/13/22 15:44 Home Medications Medication Instructions Recorded Confirmed Type omeprazole 40 mg capsule,delayed 40 mg PO DAILY 05/19/14 01/13/22 History release polyethylene glycol 3350 17 17 g PO DAILY PRN PRN 05/19/14 01/14/22 History gram/dose oral powder (Miralax) cholecalciferol (vitamin D3) 25 50 mcg PO DAILY 01/05/20 01/14/22 History mcg (1,000 unit) tablet (Vitamin D3) lactulose 10 gram/15 mL oral 15 ml PO DAILY PRN PRN 01/05/20 01/13/22 History solution naloxone 4 mg/actuation nasal 4 mg intranasal Q3M PRN 01/05/20 01/13/22 History spray (Narcan) vitamin B complex 1 tab PO DAILY 01/05/20 01/13/22 History calcium carbonate 500 mg calcium 500 mg PO DAILY 10/19/20 01/13/22 History (1,250 mg) tablet (Calcium 500) sertraline 50 mg tablet 75 mg PO DAILY 10/19/20 01/13/22 History trazodone 100 mg tablet 200 mg PO HS PRN PRN 01/03/21 01/14/22 History aspirin 81 mg tablet,delayed 81 mg PO DAILY 06/23/21 01/13/22 History release linaclotide 145 mcg capsule 145 mcg PO DAILY 06/23/21 01/13/22 History (Linzess) meloxicam 15 mg tablet 15 mg PO DAILY 08/08/21 01/13/22 History estradiol 0.01% (0.1 mg/gram) 2 g vaginal .twice weekly 10/14/21 01/13/22 Rx vaginal cream (Estrace) infection prevention #42.5 grams lorazepam 1 mg tablet (Ativan) 1 mg PO DAILY PRN #10 tabs 10/23/21 01/13/22 Rx oxycodone 40 mg tablet,crush 40 tab PO BID 01/13/22 01/13/22 History resistant,extended release 12 hr (OxyContin) amlodipine 10 mg tablet 10 mg PO DAILY 01/14/22 01/14/22 History prochlorperazine maleate 5 mg 5 mg PO BID PRN PRN 01/14/22 01/14/22 History tablet scopolamine base 1 mg over 3 days 1 patch topical Q72H 01/14/22 01/14/22 History transdermal patch sennosides 8.6 mg tablet (senna) 8.6 mg PO QPM 01/14/22 01/14/22 History Exam Narrative Exam Narrative: GEN: Alert and oriented, semi-fowlers in bed, smiling pleasant and meal cooker perative. HEENT: Head atraumatic. Conjunctiva clear, no icterus. PERRL, EOMI. no rhinorrhea. MMM, Neck is supple with no masses or lymphadenopathy, trachea midline LUNGS: CTAB with normal effort ; CV: RRR with no murmurs, gallops, or rubs. Pedal pulses palpable ABD: + BS, soft, NT/ND EXT: no cyanosis, clubbing, or edema MSK:NO complaints, MAEW NEURO: CN 2-12 grossly intact. Strength and sensation bilat equal.. Normal speech and coordination SKIN: No rashs or open wounds. PSYCH: normal mood and affect HENMT Head: normal to inspection Mouth: oral mucosae normal Throat: uvula midline Eyes Pupils: PERRL EOM: EOM intact bilaterally Resp Effort & Inspection: normal respiratory effort Auscultation: clear to auscultation bilaterally Cardio Rate: regular rate Rhythm: regular rhythm Skin General skin exam: no rashes or lesions noted Neuro General: patient alert and patient oriented x3 Cranial Nerves: CN's II-XI intact bilaterally and tongue midline Cognition: normal cognition Speech: speech normal Motor: strength 5/5 throughout and no pronator drift Sensory Exam: no sensory deficits noted Extrem Other: distal pulses intact Psych Appearance: well kempt Attitude: cooperative Thought Process: normal Thought Content: normal Results Labs Result diagrams: 01/14/22 06:30 01/14/22 06:30 Labs: Laboratory Results - last 24 hr 01/13/22 01/13/22 01/13/22 13:10 13:25 13:25 WBC 9.05 RBC 3.77 L Hgb 9.8 L Hct 30.6 L MCV 81 MCH 26.0 L MCHC 32.0 RDW 15.5 H Plt Count 280 MPV 10.3 Immature Gran % 0.3 Neutrophils % 73.9 Band Neutrophils % Lymphocytes % 13.6 Atypical Lymphs % Monocytes % 12.0 Eosinophils % 0.0 Basophils % 0.2 Metamyelocytes % Myelocytes % Promyelocytes % Other Cells % Nucleated RBC % 0.0 Absolute Neutrophils 6.68 Absolute Lymphocytes 1.23 Absolute Monocytes 1.09 H Absolute Eosinophils 0.00 Absolute Basophils 0.02 RBC Morphology Polychromasia Hypochromasia Poikilocytosis Basophilic Stippling Anisocytosis Microcytosis Macrocytosis Spherocytes Tear Drop Cells Ovalocytes Stomatocytes [place] Bodies [place] Cells/Echinocytes Acanthocytes (Spur) Schistocytes Sodium 141 Potassium 3.2 L Chloride 103 Carbon Dioxide 25.9 Anion Gap 12.1 H BUN 21 H Creatinine 1.2 H Estimated GFR/1.73 m2 44.04 Glucose 118 H Calcium 8.9 Magnesium Total Bilirubin 0.4 AST 104 H ALT 30 Alkaline Phosphatase 70 Troponin I Total Protein 8.1 Albumin 3.5 Lipase Urine Color Yellow Urine Clarity Cloudy Urine pH 6.0 Ur Specific [place] >= 1.030 H Urine Protein 30 H Urine Ketones Trace H Urine Blood Moderate H Urine Nitrite Positive H Urine Bilirubin Negative Urine Urobilinogen 0.2 Ur Leukocyte Esterase Trace H Urine RBC 5-10 H Urine WBC 10-20 H Ur Epithelial Cells Few Urine Crystals Negative Urine Bacteria Many Urine Casts 0-2 Hyaline Urine Mucus Negative Ur Culture Indicated? Yes Urine Glucose Negative COVID-19 Source 01/13/22 01/13/22 01/13/22 13:25 17:25 17:30 WBC RBC Hgb Hct MCV MCH MCHC RDW Plt Count MPV Immature Gran % Neutrophils % Band Neutrophils % Lymphocytes % Atypical Lymphs % Monocytes % Eosinophils % Basophils % Metamyelocytes % Myelocytes % Promyelocytes % Other Cells % Nucleated RBC % Absolute Neutrophils Absolute Lymphocytes Absolute Monocytes Absolute Eosinophils Absolute Basophils RBC Morphology Polychromasia Hypochromasia Poikilocytosis Basophilic Stippling Anisocytosis Microcytosis Macrocytosis Spherocytes Tear Drop Cells Ovalocytes Stomatocytes Gomez-[place] Bodies Tomas Cells/Echinocytes Acanthocytes (Spur) Schistocytes Sodium Cancelled Potassium Cancelled Chloride Cancelled Carbon Dioxide Cancelled Anion Gap Cancelled BUN Cancelled Creatinine Cancelled Estimated GFR/1.73 m2 Cancelled Glucose Cancelled Calcium Cancelled Magnesium Cancelled Total Bilirubin Cancelled AST Cancelled ALT Cancelled Alkaline Phosphatase Cancelled Troponin I Cancelled Total Protein Cancelled Albumin Cancelled Lipase 24 Urine Color Urine Clarity Urine pH Ur Specific [place] Urine Protein Urine Ketones Urine Blood Urine Nitrite Urine Bilirubin Urine Urobilinogen Ur Leukocyte Esterase Urine RBC Urine WBC Ur Epithelial Cells Urine Crystals Urine Bacteria Urine Casts Urine Mucus Ur Culture Indicated? Urine Glucose COVID-19 Source Nasal/Nares 01/13/22 01/13/22 17:30 20:30 WBC Cancelled RBC Cancelled Hgb Cancelled Hct Cancelled MCV Cancelled MCH Cancelled MCHC Cancelled RDW Cancelled Plt Count Cancelled MPV Cancelled Immature Gran % Cancelled Neutrophils % Cancelled Band Neutrophils % Cancelled Lymphocytes % Cancelled Atypical Lymphs % Cancelled Monocytes % Cancelled Eosinophils % Cancelled Basophils % Cancelled Metamyelocytes % Cancelled Myelocytes % Cancelled Promyelocytes % Cancelled Other Cells % Cancelled Nucleated RBC % Cancelled Absolute Neutrophils Cancelled Absolute Lymphocytes Cancelled Absolute Monocytes Cancelled Absolute Eosinophils Cancelled Absolute Basophils Cancelled RBC Morphology Cancelled Polychromasia Cancelled Hypochromasia Cancelled Poikilocytosis Cancelled Basophilic Stippling Cancelled Anisocytosis Cancelled Microcytosis Cancelled Macrocytosis Cancelled Spherocytes Cancelled Tear Drop Cells Cancelled Ovalocytes Cancelled Stomatocytes Cancelled Gomez-[place] Bodies Cancelled Tomas Cells/Echinocytes Cancelled Acanthocytes (Spur) Cancelled Schistocytes Cancelled Sodium Potassium Chloride Carbon Dioxide Anion Gap BUN Creatinine Estimated GFR/1.73 m2 Glucose Calcium Magnesium Total Bilirubin AST ALT Alkaline Phosphatase Troponin I Cancelled Total Protein Albumin Lipase Urine Color Urine Clarity Urine pH Ur Specific [place] Urine Protein Urine Ketones Urine Blood Urine Nitrite Urine Bilirubin Urine Urobilinogen Ur Leukocyte Esterase Urine RBC Urine WBC Ur Epithelial Cells Urine Crystals Urine Bacteria Urine Casts Urine Mucus Ur Culture Indicated? Urine Glucose COVID-19 Source Last Vital Signs Temp 36.9 C 01/13/22 18:28 Pulse 83 01/13/22 18:28 Resp 16 01/13/22 18:28 BP 145/82 H 01/13/22 18:28 Pulse Ox 96 01/13/22 18:28
[2022-01-13] MEDS: Enoxaparin 40 MG/0.4 ML SYR SC (19:41)
[2022-01-13] MEDS: Normal Saline 1,000 ML 75 ML IV (19:42)
[2022-01-13] MEDS: POTASSIUM CHLORIDE 20 MEQ/100 ML BAG 50 MEQ IVPB ×2 (19:44→21:25)
[2022-01-13 19:45] LABS: Lab Add On Test DONE
[2022-01-13] MEDS: Diclofenac 1% Gel 100 GM TUBE TP (19:48)
[2022-01-13 19:58] LABS: Magnesium 1.8 mg/dL (1.8-2.4)
[2022-01-13] MEDS: oxyCODONE-CR 20 MG TABCR 40 MG PO (20:39)
[2022-01-13] MEDS: traZODone 100 MG TAB 200 MG PO (21:24)
[2022-01-13 23:11] VITALS: BP 155/89; PULSE 77; RESP 14; TEMP 36.8; O2SAT 93
[2022-01-13 23:56] LABS: COVID-19 PCR Negative (Negative)
[2022-01-14] MEDS: Acetaminophen 325 MG TAB PO ×3 (04:28→23:15)
[2022-01-14 07:02] LABS: Abs Immature Grans 0.04 10^3/uL (0.0-0.06); Absolute Basophil Count 0.04 10^3/uL (0.0-0.2); Absolute Eosinophil Count 0.06 10^3/uL (0.0-0.7); Absolute Lymphocyte Count 0.77 10^3/uL (1.2-3.4); Absolute Monocyte Count 1.02 10^3/uL (0.1-0.8); Absolute Neutrophil Count 7.19 10^3/uL (1.2-6.7); Basophils % 0.4; Eosinophils % 0.7; HCT 26.3 % (36.0-46.0); HGB 8.3 g/dL (11.2-15.7); Immature Grans % 0.4; Lymphocytes % 8.4; MCH 25.8 pg (27.0-33.0); MCHC 31.6 % (32.0-36.0); MCV 82 fL (80-95); Monocytes % 11.2; Neutrophils % 78.9; Platelet Count 239 10^3/uL (130-400); RBC 3.22 10^6/uL (3.93-5.22); RDW 15.6 % (11.7-14.6); RDW-SD 46.3 fL; WBC 9.12 10^3/uL (4.4-10.8)
[2022-01-14 07:17] LABS: BUN 18 mg/dL (7-18); Calcium 8.5 mg/dL (8.5-10.1); Chloride 108 mmol/L (98-107); Estimated GFR 54.35 (mL/min/1.73m2); Glucose 121 mg/dL (74-106); Magnesium 1.7 mg/dL (1.8-2.4); Potassium 3.9 mmol/L (3.5-5.1); Sodium 141 mmol/L (136-145)
[2022-01-14 07:30] VITALS: BP 159/89; PULSE 74; RESP 16; TEMP 36.3; O2SAT 97
[2022-01-14] MEDS: Sertraline 50 MG TAB 75 MG PO (08:35)
[2022-01-14] MEDS: Diclofenac 1% Gel 100 GM TUBE TP ×4 (08:35→21:16)
[2022-01-14] MEDS: Vitamins B Comp w/C TAB 1 TAB PO (08:36)
[2022-01-14] MEDS: Calcium Carbonate 1.25 GM TAB PO (08:36)
[2022-01-14] MEDS: Mirabegron 25 MG TABCR PO (08:36)
[2022-01-14] MEDS: Cholecalciferol (Vitamin D3) 1,000 UNIT TAB 1000 UNITS PO (08:36)
[2022-01-14] MEDS: Aspirin E.C. 81 MG TABEC PO (08:36)
[2022-01-14] MEDS: Omeprazole 20 MG CAPCR 40 MG PO (08:36)
[2022-01-14] MEDS: Meloxicam 15 MG TAB PO (08:36)
[2022-01-14] MEDS: oxyCODONE-CR 20 MG TABCR 40 MG PO ×2 (08:36→21:10)
[2022-01-14] MEDS: Normal Saline 1,000 ML 75 ML IV (08:37)
--- NOTE | 2022-01-14 09:32 | INITIAL_ITS ---
- If Service Date Differs Date of service: 01/14/22 Time of Service: 09:32 Care Management Initial Assess REASON FOR HOSPITALIZATION:: UTI, Confusion, Fall. PAST MEDICAL HISTORY/PAST SURGICAL HISTORY:: All Active Problems: Left rotator cuff tear arthropathy (Acute), Primary osteoarthritis, left shoulder (Acute), Recurrent UTI (urinary tract infection) (Acute), Tendonitis of left rotator cuff (Acute), Depression (Chronic),. Goiter (Acute), Fibromyalgia (Chronic), KWAME (obstructive sleep apnea) (Chronic), Chronic pain (Chronic), Movement disorder (Acute), Muscle weakness (Acute), Left elbow contusion (Acute), Left displaced femoral neck fracture (Acute 09/16/20), Discharge planning issues (Acute), DVT prophylaxis (Acute), Chronic renal insufficiency, stage III (moderate) (Acute), Anemia (Chronic), Chronic pain syndrome (Chronic), Hypertension (Chronic), Fracture of left hip (Acute), Osteoarthritis of right knee (Acute) - Steroid injection: 04/05/2020, Has had previous viscosupplementation injections, and Primary osteoarthritis of left knee (Chronic) - We will see the patient back in 4-1/2 months for possible repeat Synvisc 1 in her left knee would consider x-ray in her right knee if she is still significantly symptomatic. Medical History: Chronic constipation, Chronic insomnia, IBS (irritable bowel syndrome), Recurrent UTI, and Urge incontinence. Surgical History: History of back surgery, History of total left hip replacement (09/17/20) - As treatment for a femoral neck fracture (DOI: 09/16/2020), and Hx of cholecystectomy. PREVIOUS FUNCTIONAL STATUS/SOCIAL/FAMILY SUPPORTS:: Tegan lives alone in [place]. Her son, Amor Corrigan, lives nearby and is supportive. Tegan also has a daughter, Renetta, who resides in [place], [place]. Tegan states she infrequently sees Renetta but does speak with her on the telephone. Tegan dresses herself and washes up at the sink. She states she is too weak to emergency management coordinator the shower. CURRENT FUNCTIONAL STATUS:: Tegan is sitting in a chair when CM comes to meet with her. She is pleasant and easily engages in conversation. She shares her concern that there may not be enough people around to help me at home but when CM inquires if she would consider going to rehab to regain some strength, Tegan quickly rejects the idea. ADVANCE DIRECTIVES:: On file; daughter Renetta Corrigan is appointed as Health Care Agent and son Amor Corrgian as alternate. Has patient been provided with info about the portal/API?: Yes Did the patient sign up for the portal?: No CODE STATUS:: Full Code INSURANCE COVERAGE / FINANCIAL ISSUES:: Medicare. CURRENT HOME/COMMUNITY SERVICES/EQUIPMENT:: MOWs, 4 wheel walker, raised toilet seat, ramp, grab bars on bed, shower chair, cane, and Bipap. PRIMARY CARE PHYSICIAN:: Marixa Kurtz MD ([facility]). POTENTIAL DISCHARGE NEEDS:: Follow up appointment with PCP, Home Health services, and plan of care. PATIENT/FAMILY EDUCATION NEEDS:: Review discharge instructions, limitations, fo llow up plan of care and discuss Ask Me Three. ANTICIPATED BARRIERS TO DISCHARGE:: No anticipated barriers at this time. TRANSPORTATION:: Tegan will be discharged home with new Home Health PT and OT services when medically cleared. She will follow up with her PCP and plan of care as prescribed. She will be transported home by her son via private vehicle when ready. CM will continue to follow. PLAN:: Tegan will likely discharge home when medically cleared by provider. She will follow up with her PCP and plan of care as prescribed.
[2022-01-14] MEDS: MAGNESIUM SULFATE 2 GM/50 ML BAG IVPB (09:54)
[2022-01-14] MEDS: Senna TAB 1 TAB PO ×2 (11:44→21:09)
--- NOTE | 2022-01-14 12:12 | IN_ITS ---
PT Notes Visit Reasons: UTI; Confusion; Fall Inpatient Physical Therapy Evaluation Date: January 14, 2022 Referring Doctor: Keira Malave NP PT Orders: PT CONSULT: Fall safety assessment, limited ability Precautions: Standard precautions, fall risk Patient Profile/Admitting Diagnosis: UTI, confusion, fall. Patient is a 71 year old female patient with past medical history of fibromyalgia, hypertension, and left hip replacement, presented to the [facility] emergency department for the chief complaint of falling with resulting left rib and bilateral hip pain.? Patient admitted upon arrival at ED that she had increasing weakness over the last couple weeks with multiple falls. PMHX: PFSH All Active Problems?(Updated 01/13/22 @ 21:34 by Keira Malave NP) Left rotator cuff tear arthropathy (Acute) Primary osteoarthritis, left shoulder (Acute) Recurrent UTI (urinary tract infection) (Acute) Tendonitis of left rotator cuff (Acute) Depression (Chronic) Goiter (Acute) Fibromyalgia (Chronic) KWAME (obstructive sleep apnea) (Chronic) Chronic pain (Chronic) Movement disorder (Acute) Muscle weakness (Acute) Left elbow contusion (Acute) Left displaced femoral neck fracture (Acute 09/16/20) Discharge planning issues (Acute) DVT prophylaxis (Acute) Chronic renal insufficiency, stage III (moderate) (Acute) Anemia (Chronic) Chronic pain syndrome (Chronic) Hypertension (Chronic) Fracture of left hip (Acute) Osteoarthritis of right knee (Acute) Steroid injection: 04/05/2020 Has had previous viscosupplementation injections.Primary osteoarthritis of left knee (Chronic) We will see the patient back in 4-1/2 months for possible repeat Synvisc 1 in her left knee would consider x-ray in her right knee if she is still significantly symptomatic Medical History?(Updated 01/13/22 @ 21:34 by Keira Malave NP) Chronic constipation Chronic insomnia IBS (irritable bowel syndrome) Recurrent UTI Urge incontinence Surgical History?(Updated 09/26/21 @ 15:20 by DARIO Hurt) History of back surgery History of total left hip replacement (09/17/20) As treatment for a femoral neck fracture (DOI: 09/16/2020)Hx of cholecystectomy Social History/Home Situation: Patient lives alone in a single level dwelling with a ramp entering her home. Has 2 children one who lives locally that checks on her occasionally. Current Functional Limitations: Self-care ADLs, functional mobility, sit to stand transfers, ambulation Equipment Owned/DME: Patient has four-wheel walker that she uses at baseline. Subjective: Patient indicates she is experiencing some left rib pain particularly worse with deep breaths and any cough or sneeze. She admits that her diagnostics were negative for any rib fracture. Symptoms started from a fall on January 11, 2022. She is agreeable to evaluation. Is anxious to begin recovery and start moving to get out of her chair. Objective: General Observation: Sitting in hospital chair in room. Kyphotic posture. No acute distress. She does show signs of pain when she coughs grabbing towards her left ribs. Admits no resting pain. Mental Status: Alert and oriented x3 Pain: 2/10 at time of initial evaluation, 6/10 spikes when cough or sneeze. Locates left ribs anterior lateral aspect of thorax. ROM: Right Upper Extremity: Within functional limits Left Upper Extremity: Within functional limits Right Lower Extremity: Within functional limits Left Lower Extremity: Within functional limits Strength: Right Upper Extremity: Grossly 4/5 throughout Left Upper Extremity: Grossly 4/5 throughout Right Lower Extremity: Hip flexors 4-5, quads 4 -/5, hamstrings 4 -/5, ankle dorsiflexion and plantar flexion 4+/5. Seated hip AB and adduction 4/5 Left Lower Extremity: 4 -/5 hip flexors, quads and hamstrings. Ankle dorsiflexion and plantarflexion 4+/5, seated hip AB and adduction 4/5 Sensation: Patient reports intact sensation light touch throughout bilateral lower extremities Bed Mobility/Transfers: Chair?stand: Min assist x1 to front wheel walker Stand?sit: Contact-guard from front wheeled walker Sit?supine: Min assist raising legs into bed Bed mobility: Independent Gait: Ambulated 20 feet in patient room with contact-guard and front wheeled walker. Slow natasha. Verbal cues for advancement of front wheeled walker during transitioning turns left and right. Balance: Static Sitting: Good Dynamic Sitting: Good Static Standing: Fair Dynamic Standing: Fair Therapeutic exercise: Patient instructed in quad sets, straight leg raise, gluteal sets, mini squats at walker (5) Special Tests: Mobility Limitations Standardized Measure [facility]-PAC 6 clicks Basic Mobility Inpatient Short Form: Raw Score: 17 [] Standardized Score: 42.13 CMS Score: 51% Informed Consent/Education: Patient instructed in purpose of PT consult and plan of care. Assessment: Patient is a 71year old female referred to physical therapy services with the diagnosis of UTI, confusion, falls. Patient presents with clinical signs and symptoms consistent with admitting diagnosis, as demonstrated by the following impairment level findings: 1. Impaired standing balance 2. Impaired activity tolerance 3. Decreased strength bilateral lower extremity major muscle groups Impairments are contributing to the following functional limitations: AMPAC score. 1. Increased dependence with transfers 2. Inability to ambulate safely without assistive device and physical assistance 3. Increased fall risk 4. Increased completion time for mobility ADL performance Patient is assessed as a X low [id number] [] Moderate [id number] [] High [id number] complexity based on the following: History: As above Examination: See above stable Presentation: [] Decision Making: AM-PAC 51% Goals: Goals X1 week 1. Supine-Sit: Independent 2. Sit-Supine: Independent 3. Sit-Stand: Standby assist with a wheeled walker 4. Stand-Sit: Independent from front wheeled walker 5. Bed-Chair: Standby assist with front wheeled walker 6. Chair-Bed: Standby assist with front wheel walker 7. Gait: 200+ feet with use of front wheeled walker standby assist 8. Independent with home exercise program [] Plan of Care/Treatment Plan: 1-2x/day, 7 days/week x 1 week. Plan of care has been reviewed with the MANAGEMENT TRAINEE MARKETING providing the service under Physical Therapy direction. Initiate Physical Therapy intervention for strengthening, bed mobility, transfers, gait, stairs, balance training, use of assistive device. DISCHARGE RECOMMENDATIONS: [] Home with no services [] [] Home with services Home health PT patient will benefit from home health PT services in order to progress mobility level using least restrictive assistive ambulatory device, assess home safety, identify additional equipment needs and establish functional maintenance program that will increase ability of patient to remain at home. [] Home with outpatient PT [] [] SNF for continued rehabilitation [] [] [facility] [] [] SNF versus LTC based on ability to participate and progress [] TREATMENT CODE/TIME: 30 minutes direct one-on-one care 10:00 to 1030. Initial evaluation [id number]. Thank you for this referral. Parish Urrutia PT,DPT [facility] Disclaimer: This note was created using Dragon voice recognition software. It was reviewed for major content. However, there may be multiple small discrepancies and errors due to the voice recognition aspects of the software.
--- NOTE | 2022-01-14 13:08 | W.PM.PROGNOT ---
Date of Service Date of service: 01/14/22 Time of Service: 13:08 Assessment and Plan Assessment and plan (1) Recurrent UTI (urinary tract infection): Status: Acute Assessment and plan: Continue ceftriaxone, will continue until Cx is back, afebrile (2) Depression: Status: Chronic Assessment and plan: Stable - continue home meds (3) Fibromyalgia: Status: Chronic Assessment and plan: Takes oxycodone at home and it works well for her; . Will continue home regimen. No new complaints (4) Chronic constipation: Assessment and plan: Bowel meds (5) Chronic insomnia: Assessment and plan: Trazodone at home; will continue Reports sleeping well last night (6) DVT prophylaxis: Status: Acute Assessment and plan: Enoxaparin (7) Discharge planning issues: Status: Acute Assessment and plan: IV abx;, IVF, home with family when medically stable Subjective Subjective Patient reports: no new complaints, feels better, tolerating liquids well and tolerating a regular diet Interval history since last seen: Tegan states she is feeling better, no dizziness, no CP, Exam Narrative Exam Narrative: GEN: Alert and oriented, sitting up in bed.. HEENT: Head atraumatic. Conjunctiva clear, no icterus. PERRL, EOMI. no rhinorrhea. MMM, Neck is supple with no masses or lymphadenopathy, trachea midline LUNGS: CTAB with normal effort ; CV: RRR with no murmurs, gallops, or rubs. Pedal pulses palpable ABD: + BS, soft, NT/ND EXT: No cyanosis, clubbing, or edema MSK:NO complaints, MAEW NEURO: CN 2-12 grossly intact. Strength and sensation bilat equal.. Normal speech and coordination SKIN: No rash or open wounds. PSYCH: Normal mood and normal affect HENMT Head: normal to inspection Mouth: oral mucosae normal Throat: uvula midline Eyes Pupils: PERRL EOM: EOM intact bilaterally Resp Effort & Inspection: normal respiratory effort Auscultation: clear to auscultation bilaterally Cardio Rate: regular rate Rhythm: regular rhythm Skin General skin exam: no rashes or lesions noted Neuro General: patient alert and patient oriented x3 Cranial Nerves: CN's II-XI intact bilaterally and tongue midline Cognition: normal cognition Speech: speech normal Motor: strength 5/5 throughout and no pronator drift Sensory Exam: no sensory deficits noted Extrem Other: distal pulses intact Psych Appearance: well kempt Attitude: cooperative Thought Process: normal Thought Content: normal Objective Last Vital Signs Temp 36.8 C 01/13/22 23:11 Pulse 77 01/13/22 23:11 Resp 14 01/13/22 23:11 BP 155/89 H 01/13/22 23:11 Pulse Ox 93 01/13/22 23:11 Laboratory Results - last 24 hr 01/13/22 01/13/22 01/13/22 13:10 13:25 13:25 WBC 9.05 RBC 3.77 L Hgb 9.8 L Hct 30.6 L MCV 81 MCH 26.0 L MCHC 32.0 RDW 15.5 H Plt Count 280 MPV 10.3 Immature Gran % 0.3 Neutrophils % 73.9 Band Neutrophils % Lymphocytes % 13.6 Atypical Lymphs % Monocytes % 12.0 Eosinophils % 0.0 Basophils % 0.2 Metamyelocytes % Myelocytes % Promyelocytes % Other Cells % Nucleated RBC % 0.0 Absolute Neutrophils 6.68 Absolute Lymphocytes 1.23 Absolute Monocytes 1.09 H Absolute Eosinophils 0.00 Absolute Basophils 0.02 RBC Morphology Polychromasia Hypochromasia Poikilocytosis Basophilic Stippling Anisocytosis Microcytosis Macrocytosis Spherocytes Tear Drop Cells Ovalocytes Stomatocytes [place] Bodies Tomas Cells/Echinocytes Acanthocytes (Spur) Schistocytes Sodium 141 Potassium 3.2 L Chloride 103 Carbon Dioxide 25.9 Anion Gap 12.1 H BUN 21 H Creatinine 1.2 H Estimated GFR/1.73 m2 44.04 Glucose 118 H Calcium 8.9 Magnesium Total Bilirubin 0.4 AST 104 H ALT 30 Alkaline Phosphatase 70 Troponin I Total Protein 8.1 Albumin 3.5 Lipase Urine Color Yellow Urine Clarity Cloudy Urine pH 6.0 Ur Specific [place] >= 1.030 H Urine Protein 30 H Urine Ketones Trace H Urine Blood Moderate H Urine Nitrite Positive H Urine Bilirubin Negative Urine Urobilinogen 0.2 Ur Leukocyte Esterase Trace H Urine RBC 5-10 H Urine WBC 10-20 H Ur Epithelial Cells Few Urine Crystals Negative Urine Bacteria Many Urine Casts 0-2 Hyaline Urine Mucus Negative Ur Culture Indicated? Yes Urine Glucose Negative COVID-19 Source SARS-CoV-2 (PCR) Add-On Test Request 01/13/22 01/13/22 01/13/22 13:25 13:25 13:25 WBC RBC Hgb Hct MCV MCH MCHC RDW Plt Count MPV Immature Gran % Neutrophils % Band Neutrophils % Lymphocytes % Atypical Lymphs % Monocytes % Eosinophils % Basophils % Metamyelocytes % Myelocytes % Promyelocytes % Other Cells % Nucleated RBC % Absolute Neutrophils Absolute Lymphocytes Absolute Monocytes Absolute Eosinophils Absolute Basophils RBC Morphology Polychromasia Hypochromasia Poikilocytosis Basophilic Stippling Anisocytosis Microcytosis Macrocytosis Spherocytes Tear Drop Cells Ovalocytes Stomatocytes [place] Bodies Tomas Cells/Echinocytes Acanthocytes (Spur) Schistocytes Sodium Potassium Chloride Carbon Dioxide Anion Gap BUN Creatinine Estimated GFR/1.73 m2 Glucose Calcium Magnesium 1.8 Total Bilirubin AST ALT Alkaline Phosphatase Troponin I Total Protein Albumin Lipase 24 Urine Color Urine Clarity Urine pH Ur Specific [place] Urine Protein Urine Ketones Urine Blood Urine Nitrite Urine Bilirubin Urine Urobilinogen Ur Leukocyte Esterase Urine RBC Urine WBC Ur Epithelial Cells Urine Crystals Urine Bacteria Urine Casts Urine Mucus Ur Culture Indicated? Urine Glucose COVID-19 Source SARS-CoV-2 (PCR) Add-On Test Request DONE 01/13/22 01/13/22 01/13/22 17:25 17:30 17:30 WBC Cancelled RBC Cancelled Hgb Cancelled Hct Cancelled MCV Cancelled MCH Cancelled MCHC Cancelled RDW Cancelled Plt Count Cancelled MPV Cancelled Immature Gran % Cancelled Neutrophils % Cancelled Band Neutrophils % Cancelled Lymphocytes % Cancelled Atypical Lymphs % Cancelled Monocytes % Cancelled Eosinophils % Cancelled Basophils % Cancelled Metamyelocytes % Cancelled Myelocytes % Cancelled Promyelocytes % Cancelled Other Cells % Cancelled Nucleated RBC % Cancelled Absolute Neutrophils Cancelled Absolute Lymphocytes Cancelled Absolute Monocytes Cancelled Absolute Eosinophils Cancelled Absolute Basophils Cancelled RBC Morphology Cancelled Polychromasia Cancelled Hypochromasia Cancelled Poikilocytosis Cancelled Basophilic Stippling Cancelled Anisocytosis Cancelled Microcytosis Cancelled Macrocytosis Cancelled Spherocytes Cancelled Tear Drop Cells Cancelled Ovalocytes Cancelled Stomatocytes Cancelled [place] Bodies Cancelled Tomas Cells/Echinocytes Cancelled Acanthocytes (Spur) Cancelled Schistocytes Cancelled Sodium Cancelled Potassium Cancelled Chloride Cancelled Carbon Dioxide Cancelled Anion Gap Cancelled BUN Cancelled Creatinine Cancelled Estimated GFR/1.73 m2 Cancelled Glucose Cancelled Calcium Cancelled Magnesium Cancelled Total Bilirubin Cancelled AST Cancelled ALT Cancelled Alkaline Phosphatase Cancelled Troponin I Cancelled Total Protein Cancelled Albumin Cancelled Lipase Urine Color Urine Clarity Urine pH Ur Specific [place] Urine Protein Urine Ketones Urine Blood Urine Nitrite Urine Bilirubin Urine Urobilinogen Ur Leukocyte Esterase Urine RBC Urine WBC Ur Epithelial Cells Urine Crystals Urine Bacteria Urine Casts Urine Mucus Ur Culture Indicated? Urine Glucose COVID-19 Source Nasal/Nares SARS-CoV-2 (PCR) Negative Add-On Test Request 01/13/22 01/14/22 01/14/22 20:30 06:30 06:30 WBC 9.12 RBC 3.22 L Hgb 8.3 L Hct 26.3 L MCV 82 MCH 25.8 L MCHC 31.6 L RDW 15.6 H Plt Count 239 MPV 10.0 Immature Gran % 0.4 Neutrophils % 78.9 Band Neutrophils % Lymphocytes % 8.4 Atypical Lymphs % Monocytes % 11.2 Eosinophils % 0.7 Basophils % 0.4 Metamyelocytes % Myelocytes % Promyelocytes % Other Cells % Nucleated RBC % 0.0 Absolute Neutrophils 7.19 H Absolute Lymphocytes 0.77 L Absolute Monocytes 1.02 H Absolute Eosinophils 0.06 Absolute Basophils 0.04 RBC Morphology Polychromasia Hypochromasia Poikilocytosis Basophilic Stippling Anisocytosis Microcytosis Macrocytosis Spherocytes Tear Drop Cells Ovalocytes Stomatocytes [place] Bodies [place] Cells/Echinocytes Acanthocytes (Spur) Schistocytes Sodium 141 Potassium 3.9 Chloride 108 H Carbon Dioxide 25.0 Anion Gap 8.0 BUN 18 Creatinine 1.0 Estimated GFR/1.73 m2 54.35 Glucose 121 H Calcium 8.5 Magnesium 1.7 L Total Bilirubin AST ALT Alkaline Phosphatase Troponin I Cancelled Total Protein Albumin Lipase Urine Color Urine Clarity Urine pH Ur Specific [place] Urine Protein Urine Ketones Urine Blood Urine Nitrite Urine Bilirubin Urine Urobilinogen Ur Leukocyte Esterase Urine RBC Urine WBC Ur Epithelial Cells Urine Crystals Urine Bacteria Urine Casts Urine Mucus Ur Culture Indicated? Urine Glucose COVID-19 Source SARS-CoV-2 (PCR) Add-On Test Request Reviewed Pertinent PMH: Yes
[2022-01-14] MEDS: cefTRIAXone 1 GM/50 ML BAG IVPB (13:50)
[2022-01-14] MEDS: Normal Saline Flush 10 ML SYR IVP ×2 (13:55→21:11)
[2022-01-14 15:39] VITALS: BP 159/95; PULSE 87; RESP 17; TEMP 36.9; O2SAT 94
[2022-01-14] MEDS: Enoxaparin 40 MG/0.4 ML SYR SC (17:50)
[2022-01-14] MEDS: traZODone 100 MG TAB 200 MG PO (21:09)
[2022-01-14 22:19] VITALS: RESP 16
[2022-01-14 23:15] VITALS: BP 174/92; PULSE 90; RESP 16; TEMP 37.5; O2SAT 96
[2022-01-14] MEDS: Docusate Sodium 100 MG CAP PO (23:16)
[2022-01-14] MEDS: Polyethylene Glycol 3350 17 GM PACKET PO (23:19)
[2022-01-14] MEDS: Scopolamine 1 MG/3 DAYS PATCH TP (23:43)
[2022-01-15 03:27] VITALS: BP 138/70; RESP 16
[2022-01-15 06:57] LABS: HCT 25.5 % (36.0-46.0); HGB 7.9 g/dL (11.2-15.7); MCH 25.9 pg (27.0-33.0); MCV 84 fL (80-95); MPV 10.7 fL (8.0-11.0); Platelet Count 242 10^3/uL (130-400); RBC 3.05 10^6/uL (3.93-5.22); RDW 15.9 % (11.7-14.6); RDW-SD 48.3 fL
[2022-01-15 08:37] VITALS: BP 144/83; PULSE 70; RESP 18; TEMP 36.9; O2SAT 99
[2022-01-15] MEDS: Diclofenac 1% Gel 100 GM TUBE TP (08:44)
[2022-01-15] MEDS: Aspirin E.C. 81 MG TABEC PO (08:44)
[2022-01-15] MEDS: oxyCODONE-CR 20 MG TABCR 40 MG PO ×2 (08:44→20:13)
[2022-01-15] MEDS: Omeprazole 20 MG CAPCR 40 MG PO (08:44)
[2022-01-15] MEDS: amLODIPine 10 MG TAB PO (08:45)
[2022-01-15] MEDS: Sertraline 50 MG TAB 75 MG PO (08:45)
[2022-01-15] MEDS: Cholecalciferol (Vitamin D3) 1,000 UNIT TAB 1000 UNITS PO (08:45)
[2022-01-15] MEDS: Senna TAB 1 TAB PO ×2 (08:45→20:14)
[2022-01-15] MEDS: Meloxicam 15 MG TAB PO (08:45)
[2022-01-15] MEDS: Calcium Carbonate 1.25 GM TAB PO (08:45)
[2022-01-15] MEDS: Vitamins B Comp w/C TAB 1 TAB PO (08:45)
--- NOTE | 2022-01-15 10:46 | NUR.NOTE ---
Nursing Note: At 1046 on 01/15/22, this RN returned a call from Renetta Corrigan, pt.'s daughter (on HIPAA). This RN updated pt.'s daughter regarding pt.'s mentation, VS, pain level, plan of care, including discharge plan, etc. Pt.'s daughter verbalized understanding and presented with a few questions that were answered. RN will reassess as necessary.
[2022-01-15] MEDS: MAGNESIUM SULFATE 2 GM/50 ML BAG IVPB (12:00)
[2022-01-15] MEDS: Normal Saline 500 ML 25 ML IV (12:00)
--- NOTE | 2022-01-15 12:00 | PT.INTREAT ---
PT Notes Visit Reasons: UTI; Confusion; Fall SUBJECTIVE: ?is pleasant and agreeable to participating in PT.? Pt reports that her arthritic pain is at 8/10 today.? OBJECTIVE: ? PAIN: 8/10 all over her body? BED MOBILITY/TRANSFERS? Supine to EOB: min A Sit-stand: SBA? Stand-sit: SBA EOB to supine: min A for BLE elavation to get centered in bed. ? GAIT? Assistive Device: FWW? Weight bearing: Full Assist: SBA ? Distance: 80', 100'? Deviation: slow controlled steps, stoop forward posture, decreased step height and step length. Therapeutic Procedure [id number] 25mins: pt cue in supine with HOB at 25degrees doing cervical rotation, lateral deviation, flexion/extension [id number], shoulder flexion, extension, horizontal abduction, abduction/adduction, ineternal/external rotation [id number], hip SLR, knee to chest, hip wags, heel slides and clamshells [id number]. Skilled verbal and tactile cues for facilitation of proper motor control, movement pattern, muscle facilitation, and exercise performance.? ASSESSMENT:? Patient tolerated session well without complaint.? She requires seated rest with gait training due to limited activity tolerance. Activity interrupted with pt phone call and was able to resume after 5mins talking with her daughter. PLAN: Continue with global strengthening and general conditioning for improved mobility and activity tolerance. TREATMENT CODE/TIME: ?45minutes;? [id number] (25mins) [id number] (20mins)
[2022-01-15] MEDS: Normal Saline Flush 10 ML SYR IVP (12:02)
[2022-01-15 12:10] LABS: HCT 26.6 % (36.0-46.0); HGB 8.3 g/dL (11.2-15.7)
[2022-01-15] MEDS: Magnesium Oxide 400 MG TAB PO ×2 (15:04→20:14)
[2022-01-15 15:15] VITALS: BP 146/81; PULSE 88; RESP 19; TEMP 37.4; O2SAT 96
--- NOTE | 2022-01-15 15:33 | W.PM.PROGNOT ---
Date of Service Date of service: 01/15/22 Time of Service: 13:00 Assessment and Plan Assessment and plan (1) Recurrent UTI (urinary tract infection): Status: Acute Assessment and plan: Afebrile - she has had 3 doses of ceftriaxine, will recheck urine and if positive start cefpodoxime - she denies urgency, frequency, pain - afebrile, vss. Voiding without difficulty. (2) Depression: Status: Chronic Assessment and plan: Stable - continue home meds (3) Hypomagnesemia: Status: Acute Assessment and plan: Magnesium 1.7 - Mag ox 400 mg BID started (4) Fibromyalgia: Status: Chronic Assessment and plan: Takes oxycodone at home and it works well for her; . Will continue home regimen. No new complaints (5) Chronic constipation: Assessment and plan: Bowel meds (6) Chronic insomnia: Assessment and plan: Trazodone at home; will continue Reports sleeping well last night (7) DVT prophylaxis: Status: Acute Assessment and plan: Enoxaparin (8) Discharge planning issues: Status: Acute Assessment and plan: Continues to improve and she states she is feeling better, plan is to go home with PT for strengthening Subjective Subjective Patient reports: no new complaints, feels better, tolerating liquids well and tolerating a regular diet; denies diarrhea, nausea, vomiting or fever Interval history since last seen: Tegan is feeling better today. Her IV came out and nursing was unable to replace it. She was only receiving magnesium IV therefore we changed it to by mouth. She was up walking with PT, and did well. She was assisted by nursing to have a shower. She did well, she had no complaints of dizziness, lightheadedness, unsteadiness, chest pain, or shortness of breath. She would like to go home today with her daughter. We will check her urine if negative we will stop antibiotics if positive we will start cefpodoxime course for her. Her vital signs are stable. Exam Narrative Exam Narrative: GEN: Alert and oriented, sitting up in bed.. HEENT: Head atraumatic. Conjunctiva clear, no icterus. PERRL, EOMI. no rhinorrhea. MMM, Neck is supple with no masses or lymphadenopathy, trachea midline LUNGS: CTAB with normal effort ; CV: RRR with no murmurs, gallops, or rubs. Pedal pulses palpable ABD: + BS, soft, NT/ND EXT: No cyanosis, clubbing, or edema MSK:NO complaints, MAEW NEURO: CN 2-12 grossly intact. Strength and sensation bilat equal.. Normal speech and coordination SKIN: No rash or open wounds. PSYCH: Normal mood and normal affect HENMT Head: normal to inspection Mouth: oral mucosae normal Throat: uvula midline Eyes Pupils: PERRL EOM: EOM intact bilaterally Resp Effort & Inspection: normal respiratory effort Auscultation: clear to auscultation bilaterally Cardio Rate: regular rate Rhythm: regular rhythm Skin General skin exam: no rashes or lesions noted Neuro General: patient alert and patient oriented x3 Cranial Nerves: CN's II-XI intact bilaterally and tongue midline Cognition: normal cognition Speech: speech normal Motor: strength 5/5 throughout and no pronator drift Sensory Exam: no sensory deficits noted Extrem Other: distal pulses intact Psych Appearance: well kempt Attitude: cooperative Thought Process: normal Thought Content: normal Objective Last Vital Signs Temp 37.4 C 01/15/22 15:15 Pulse 88 01/15/22 15:15 Resp 19 01/15/22 15:15 BP 146/81 H 01/15/22 15:15 Pulse Ox 96 01/15/22 15:15 Laboratory Results - last 24 hr 01/13/22 01/15/22 01/15/22 13:25 06:28 12:03 WBC 7.60 RBC 3.05 L Hgb 7.9 L 8.3 L Hct 25.5 L 26.6 L MCV 84 MCH 25.9 L MCHC 31.0 L RDW 15.9 H Plt Count 242 MPV 10.7 Urine Color Yellow Urine Clarity Cloudy Urine pH 6.0 Ur Specific [place] >= 1.030 H Urine Protein 30 H Urine Ketones Trace H Urine Blood Moderate H Urine Nitrite Positive H Urine Bilirubin Negative Urine Urobilinogen 0.2 Ur Leukocyte Esterase Trace H Urine RBC 5-10 H Urine WBC 10-20 H Ur Epithelial Cells Few Urine Crystals Negative Urine Bacteria Many Urine Casts 0-2 Hyaline Urine Mucus Negative Ur Culture Indicated? Yes Urine Glucose Negative Reviewed Pertinent PMH: Yes
[2022-01-15] MEDS: Acetaminophen 325 MG TAB PO (16:38)
[2022-01-15 18:01] LABS: Bilirubin Negative (Negative); Blood Trace-intact (Negative); Clarity Clear (Clear); Glucose Negative (Negative); Ketones Negative (Negative); Leukocyte Esterase Trace (Negative); Nitrite Negative (Negative); Specific Gravity 1.025 (1.005-1.025); Urobilinogen 0.2 EU/dL (Up TO 0.2); pH 5.5 (5-8)
[2022-01-15] MEDS: Enoxaparin 40 MG/0.4 ML SYR SC (18:31)
[2022-01-15 19:02] LABS: Bacteria Negative HPF (Negative); C & S Indicated? No/Sq. Contamination; Casts Negative LPF (Negative); Crystals Negative HPF (Negative); Epithelial Cells Many HPF (Negative); Mucus Negative (Negative); Other Cells Negative (Negative)
[2022-01-15 23:23] VITALS: BP 145/81; PULSE 88; RESP 19; TEMP 36.6; O2SAT 96
[2022-01-16 07:15] LABS: Abs Immature Grans 0.02 10^3/uL (0.0-0.06); Absolute Basophil Count 0.03 10^3/uL (0.0-0.2); Absolute Eosinophil Count 0.17 10^3/uL (0.0-0.7); Absolute Lymphocyte Count 0.98 10^3/uL (1.2-3.4); Absolute Neutrophil Count 4.51 10^3/uL (1.2-6.7); Basophils % 0.5; Eosinophils % 2.7; HCT 23.5 % (36.0-46.0); HGB 7.7 g/dL (11.2-15.7); Immature Grans % 0.3; Lymphocytes % 15.3; MCH 26.5 pg (27.0-33.0); MCHC 32.8 % (32.0-36.0); MCV 81 fL (80-95); MPV 10.2 fL (8.0-11.0); Monocytes % 10.9; Neutrophils % 70.3; Platelet Count 269 10^3/uL (130-400); RBC 2.91 10^6/uL (3.93-5.22); RDW-SD 47.4 fL; WBC 6.41 10^3/uL (4.4-10.8)
[2022-01-16 07:26] LABS: Anion Gap 7.8 mmol/L (3-11); BUN 19 mg/dL (7-18); CO2 26.2 mmol/L (21.0-32.0); CREATININE 0.9 mg/dL (0.55-1.02); Calcium 8.7 mg/dL (8.5-10.1); Chloride 106 mmol/L (98-107); Glucose 93 mg/dL (74-106); Potassium 4.2 mmol/L (3.5-5.1); Sodium 140 mmol/L (136-145)
[2022-01-16 07:53] LABS: Ferritin 84 ng/mL (8-252); Folate 5.6 ng/mL (8.6-20.0); Iron 13 ug/dL (50-170); Magnesium 1.7 mg/dL (1.8-2.4); Total Iron Binding Capacity 237 ug/dL (250-450); Transferrin Sat 5 % (15-50); Vitamin B12 469 pg/mL (193-986)
[2022-01-16 08:05] LABS: Bilirubin Negative (Negative); Blood Trace-lysed (Negative); Clarity Clear (Clear); Glucose Negative (Negative); Ketones Negative (Negative); Leukocyte Esterase Negative (Negative); Nitrite Negative (Negative); Urobilinogen 0.2 EU/dL (Up TO 0.2); pH 5.5 (5-8)
[2022-01-16 08:17] VITALS: BP 155/93; PULSE 88; RESP 18; TEMP 38.1; O2SAT 96
[2022-01-16 08:21] VITALS: TEMP 38.1
[2022-01-16] MEDS: Acetaminophen 325 MG TAB PO (08:21)
[2022-01-16 08:23] LABS: Bacteria Negative HPF (Negative); C & S Indicated? No; Casts Negative LPF (Negative); Crystals Negative HPF (Negative); Epithelial Cells Few HPF (Negative); Mucus Negative (Negative); RBC 0-2 HPF (0-2); WBC Negative HPF (0-5)
--- NOTE | 2022-01-16 08:39 | CMPROGNOTE_ITS ---
- If Service Date Differs Date of service: 01/16/22 Time of Service: 08:39 Care Management Progress Note S/O: Tegan was sitting in her chair when CM met with her. She asked to leave, AMA. CM spoke with patient's daughter Renetta via phone while in Tegan's room. Renetta is not happy with Tegan's decision to leave AMA, and reports that Tegan has a hx of leaving AMA. If the provider is agreeable, Renetta would like Tegan to go home with [facility] services. CM advised SUDHIR Crockett. A: 71 year old female admitted to [facility] on 01/13/22 for UTI, Confusion, Fall. P: Tegan will be discharged home with new Home Health PT and OT services when medically cleared. She will follow up with her PCP and plan of care as prescribed. She will be transported home by her son via private vehicle when ready. CM will continue to follow.
[2022-01-16 09:21] VITALS: PULSE 80; TEMP 38.4
[2022-01-16 09:25] VITALS: TEMP 38.4
[2022-01-16] MEDS: Omeprazole 20 MG CAPCR 40 MG PO (09:26)
[2022-01-16] MEDS: oxyCODONE-CR 20 MG TABCR 40 MG PO (09:26)
[2022-01-16] MEDS: Senna TAB 1 TAB PO (09:27)
[2022-01-16] MEDS: Aspirin E.C. 81 MG TABEC PO (09:27)
[2022-01-16] MEDS: Vitamins B Comp w/C TAB 1 TAB PO (09:27)
[2022-01-16] MEDS: Meloxicam 15 MG TAB PO (09:27)
[2022-01-16] MEDS: Cholecalciferol (Vitamin D3) 1,000 UNIT TAB 1000 UNITS PO (09:27)
[2022-01-16] MEDS: Ferrous Sulfate 325 MG TAB PO (09:27)
[2022-01-16] MEDS: Sertraline 50 MG TAB 75 MG PO (09:27)
[2022-01-16] MEDS: Magnesium Oxide 400 MG TAB PO (09:28)
[2022-01-16] MEDS: amLODIPine 10 MG TAB PO (09:28)
[2022-01-16] MEDS: Folic Acid 1 MG TAB PO (09:28)
[2022-01-16] MEDS: Calcium Carbonate 1.25 GM TAB PO (09:28)
[2022-01-16 10:52] LABS: Lab Add On Test DONE
[2022-01-16 11:21] VITALS: TEMP 37.2
[2022-01-16 11:29] LABS: Procalcitonin < 0.1 ng/mL
[2022-01-16 12:14] LABS: Source Nasal/Nares
--- NOTE | 2022-01-16 12:49 | PT.INTREAT ---
Date of service: 01/16/22 Time of Service: 11:58 PT Notes Visit Reasons: UTI; Confusion; Fall Inpatient Physical Therapy Treatment Note [facility] Date: 01/16/2022 PRECAUTIONS: Fall, activity as tolerated SUBJECTIVE: Tegan is pleasant and agreeable to participating in PT. She reports that her daughter is waiting for her to get home. She states that she is feeling normal. OBJECTIVE: PAIN: No c/o pain BED MOBILITY/TRANSFERS Sit-stand: S Stand-sit: S GAIT Assistive Device: FWW Weight bearing: Full Assist: SBA Distance: 150' Deviation: Slow natasha ASSESSMENT: Patient tolerated session well without complaint. She was able to tolerate a progression in gait distance with FWW support, although demonstrates slow natasha. PLAN: Continue with general conditioning for improved activity tolerance for continued progression toward independent baseline level of function. TREATMENT CODE/TIME: 10 minutes; [id number] (11:58)
[2022-01-16 13:08] LABS: COVID-19 PCR Negative (Negative)
--- NOTE | 2022-01-16 13:09 | DI.RAD_ITS ---
Exam(s) XR CHEST 2V PA LATERAL EXAM: XR CHEST 2V PA LATERAL CLINICAL HISTORY: Fever TECHNIQUE: COMPARISON: CR,XR XR PORTABLE CHEST AP from 09/16/2020 FINDINGS: The heart is not enlarged. There is blunting of the costophrenic angle on the left presumably repres enting a small pleural effusion. There appear to be areas of consolidation or atelectasis medially i n the left lower lobe in the retrocardiac region. Findings are suspicious for pneumonitis. Underlyi ng disease not excluded on the basis of this examination. Follow-up films are requested following tr eatment for presumed pneumonitis to exclude a left lower lobe mass. IMPRESSION: RADIATION DOSE DELIVERED: Total DLP
--- NOTE | 2022-01-16 14:35 | W.PM.DS.N ---
Date of service: 01/16/22 Time of Service: 14:36 DS: Diagnosis Discharge Diagnosis (1) Recurrent UTI (urinary tract infection): Status: Acute (2) Depression: Status: Chronic (3) Hypomagnesemia: Status: Acute (4) Fibromyalgia: Status: Chronic (5) Chronic constipation: (6) Chronic insomnia: (7) DVT prophylaxis: Status: Acute (8) Discharge planning issues: Status: Acute Discharge Plan Disposition Patient Disposition: AGAINST MEDICAL ADVICE Condition: Improving Discharge Details Reason For Visit: UTI; Confusion; Fall Admit Date/Time: 01/13/22 17:31 Admit Provider: Kwame Schultz Attending Provider: Kwame Schultz Primary Care Provider: Marixa Kurtz [facility] Hospital Course Hospital Course: This 71 year old? F with pmhx of fibromyalgia and left hip replacement [facility] with the chief complaint of fall with hip pain and? rib pain,?described as moderate,?with intensity rated at 7.?Quality was described as aching and sharp,?and was localized to the chest, left upper and lower extremity.?The patient reported no radiation.?Immobilization improved symptoms. She denied hitting her head and there was no loss of consciousness. ??Review of labs showed a stable anemia, renal function at baseline and infected urine. She has complained of increased confusion and increased generalized weakness and in general state of decline for the past month. She denied any dysuria, fever, nausea, vomiting or diarrhea. Imaging in the ED CT C/A/P showed no evidence of injury, however she does have a small bilateral pleural effusion with subjacent infiltrates representing atelectasis or pneumonia.? She was admitted to the medical floor for IV antibiotics for her UTI.? She was evaluated by physical therapy here and they recommended that she has physical therapy at home by home health services we will place that referral. ?Patient is in agreement with this plan. ?She was going to be discharged to home with family this morning when she developed a fever.? She declined blood cultures, ?she declined any lab work, she declined IV medications. Her IV was infiltrated, and tried by several different nurses and she declined any other attempts. She did agree to a chest x-ray. ?Chest x-ray results below.? She did not want to stay in the hospital any longer and decided to sign out AMA.? Risks were discussed with her and her daughter. She was encouraged to remain in the hospital.? She chose to go home with her son. ?She was sent home, with him, with a prescription for doxycycline 100 mg twice daily for 5 days and cefpodoxime 200 mg twice a day for 5 days.? She was asked to lease picker her medications and take them until completed.? We recommended a probiotic.? She was asked to follow up with her PCP in 1 week, return to the emergency department if fever, NVD, increased confusion or pain.? She did agree to this, as did her son.? She signed the AMA form after advised of the risks. 1.??? The patient has decided to leave against medical advice because she states she is feeling better and wants to go home. 2.??? She has normal mental status and adequate capacity to make medical decisions. 3.??? The risks have been explained to the patient, including worsening illness, chronic pain, permanent disability and . 4.??? The benefits of staying in the hospital have also been explained, including the availability and proximity of nurses, physicians, monitoring, diagnostic testing, treatment and antibiotics. 5.??? The patient was able to understand and state the risks and benefits of hospital admission. 6.??? The patient had the opportunity to ask questions about her medical condition. 7.??? The patient was treated to the extent that she would allow and knows that they may return for care at any time. 8. ? Follow-up with Dr. Kurtz next week Discussed with Dr Hood Wallace Meds and New Rx's Prescriptions: New ferrous sulfate 325 mg (65 mg iron) Tablet 325 mg PO BID Qty: 30 0RF folic acid 1 mg Tablet 1 mg PO QAM Qty: 30 0RF magnesium oxide 400 mg (241.3 mg magnesium) Tablet 400 mg PO BID Qty: 30 0RF cefpodoxime 200 mg tablet 200 mg PO BID Qty: 10 0RF Rx Instructions: must administer with a meal/food doxycycline monohydrate 100 mg capsule 100 mg PO BID Qty: 10 0RF Continued calcium carbonate [Calcium 500] 500 mg calcium (1,250 mg) tablet 500 mg PO DAILY sertraline 50 mg tablet 75 mg PO DAILY trazodone 100 mg tablet 200 mg PO HS PRN PRN meloxicam 15 mg tablet 15 mg PO DAILY aspirin 81 mg tablet,delayed release (DR/EC) 81 mg PO DAILY Linzess 145 mcg capsule 145 mcg PO DAILY omeprazole 40 MG capsule,delayed release(DR/EC) 40 mg PO DAILY polyethylene glycol 3350 [Miralax] 119 GM powder 17 g PO DAILY PRN PRN vitamin B complex Tablet 1 tab PO DAILY lactulose 10 gram/15 mL solution 15 ml PO DAILY PRN PRN Label Comments: TAKE 15ML BY MOUTH DAILY FOR CONSTIPATION cholecalciferol (vitamin D3) [Vitamin D3] 25 mcg (1,000 unit) Tablet 50 mcg PO DAILY naloxone [Narcan] 4 mg/actuation Dixon,Non-Aerosol 4 mg INTRANASAL Q3M PRN lorazepam [Ativan] 1 mg tablet 1 mg PO DAILY PRNQty: 10 0RF oxycodone [OxyContin] 40 mg tablet,oral only,ext.rel.12 hr 40 tab PO BID Label Comments: TAKE ONE TABLET BY MOUTH TWICE A DAY sennosides [senna] 8.6 mg tablet 8.6 mg PO QPM amlodipine 10 mg tablet 10 mg PO DAILY prochlorperazine maleate 5 mg tablet 5 mg PO BID PRN PRN Label Comments: TAKE 1 TABLET BY MOUTH 2 TIMES DAILY NEEDED scopolamine base 1 mg over 3 days patch 3 day 1 patch topical Q72H Label Comments: 1 patch to skin every 72 hours Discontinued estradiol [Estrace] 0.01 % (0.1 mg/gram) cream 2 g vaginal .twice weekly Qty: 42.5 4RF Discharge Instructions Instructions: Probiotic (By mouth), Pneumonitis (DC), How to Use an Incentive Spirometer (DC), Urinary Tract Infection in Women (DC), Hypomagnesemia (DC), Against Medical Advice (DC), Anemia (DC) Additional Instructions: Please lease picker your prescriptions at your pharmacy; take 2 antibiotics twice a day for 5 days.? Take a probiotic.? Follow up with Dr Kurtz next week; return to the Emergency Department if worsening condition, such as fever, change in mental status, nausea, vomiting. or pain.? Rest, drink plenty of fluids.? Resume your home medications. Use your incentive spirometer every 2 hours while awake if possible. You have decided to leave against medical advice because you state you are feeling better and want to go home. ?? The risks have been explained to you, including worsening illness, chronic pain, permanent disability and .? The benefits of staying in the hospital have also been explained, including the availability and proximity of nurses, physicians, monitoring, diagnostic testing, treatment and antibiotics. Oral antibiotics have been prescribed. Please follow up with Dr Kurtz. Stand Alone Forms: Nursing Discharge Form Referrals: Marixa Kurtz [Primary Care Provider] - 01/25/22 1:45 pm () Activity:: Activity as Tolerated Equipment/Supplies:: Walker Diet:: As Tolerated Discharge Orders Discharge Orders: Discharge Order (Routine); Ordered 01/16/22 Ordered By: Keira Malave Discharge Data Discharge Date/Time-TO BE ENTERED AT DEPARTURE: 01/16/22 16:32 DS: Summary Time Spent with Patient providing and/or coordinating discharge services: Greater than 30 minutes Status at Discharge Functional status at discharge: uses cane/walker Overall status at discharge: patient is progressing back to baseline Mental Status: mental status grossly normal Speech and Movement: speech and movement normal Mood: congruent mood Affect: normal affect Exam Narrative Exam Narrative: GEN: Alert and oriented, sitting up in a chair.. HEENT: Head atraumatic. Conjunctiva clear, no icterus. PERRL, EOMI. no rhinorrhea. MMM, Neck is supple with no masses or lymphadenopathy, trachea midline LUNGS: CTAB with normal effort ; CV: RRR with no murmurs, gallops, or rubs. Pedal pulses palpable ABD: + BS, soft, NT/ND EXT: No cyanosis, clubbing, or edema MSK:NO complaints, MAEW NEURO: CN 2-12 grossly intact. Strength and sensation bilat equal.. Normal speech and coordination SKIN: No rash or open wounds. PSYCH: Normal mood and normal affect HENMT Head: normal to inspection Mouth: oral mucosae normal Throat: uvula midline Eyes Pupils: PERRL EOM: EOM intact bilaterally Resp Effort & Inspection: normal respiratory effort Auscultation: clear to auscultation bilaterally Cardio Rate: regular rate Rhythm: regular rhythm Skin General skin exam: no rashes or lesions noted Neuro General: patient alert and patient oriented x3 Cranial Nerves: CN's II-XI intact bilaterally and tongue midline Cognition: normal cognition Speech: speech normal Motor: strength 5/5 throughout and no pronator drift Sensory Exam: no sensory deficits noted Extrem Other: distal pulses intact Psych Appearance: well kempt Mental Status: mental status grossly normal Speech and Movement: speech and movement normal Mood: congruent mood Affect: normal affect Attitude: cooperative Thought Process: normal Thought Content: normal DS: Data Vitals/I&O Vitals and I&O: Vital Signs Temperature 37.2 C 01/16/22 11:21 Temperature Source Temporal Artery Scan 01/16/22 11:21 Pulse 80 01/16/22 09:21 Pulse Rhythm Regular 01/16/22 09:36 Respiratory Rate 18 01/16/22 08:17 Respiratory Effort Non-Labored 01/16/22 09:36 Respiratory Depth Normal 01/16/22 09:36 Respiratory Pattern Normal 01/16/22 09:36 Blood Pressure 155/93 H 01/16/22 08:17 Blood Pressure Position Sitting 01/13/22 12:47 Pulse Oximetry 96 01/16/22 08:17 Oxygen Delivery Method Room Air 01/16/22 08:17 Oxygen Flow Rate 0 01/16/22 08:17 Pain Level 0 01/15/22 23:23 Comment 01/16/22 08:21 Intake & Output 01/15/22 01/16/22 01/16/22 23:59 11:59 23:59 Intake Total 1876.666 / 1886.666 240 / 480 240 / 480 Output Total 900 / 900 851 / 1051 200 / 1051 Balance 976.666 / 986.666 -611 / -571 40 / -571 Intake: IV 16.666 / 26.666 Oral 1860 / 1860 240 / 480 240 / 480 Output: Urine 900 / 900 850 / 1050 200 / 1050 Stool 1 / Other: Urine Color Yellow Yellow Yellow Urine Appearance Clear Clear Clear Urine Odor Normal Normal Comment patient was also incontinent Void x1 in the toilet. Stool Size Small Stool Characteristics Hard Voiding Methods Toilet Toilet Toilet Diaper Incontinent Data Completed and Pending Labs on day of discharge: Labs from last 24 hours 01/16/22 01/16/22 01/16/22 12:00 07:48 06:50 WBC RBC Hgb Hct MCV MCH MCHC RDW Plt Count MPV Immature Gran % Neutrophils % Lymphocytes % Monocytes % Eosinophils % Basophils % Nucleated RBC % Absolute Neutrophils Absolute Lymphocytes Absolute Monocytes Absolute Eosinophils Absolute Basophils Sodium Potassium Chloride Carbon Dioxide Anion Gap BUN Creatinine Estimated GFR/1.73 m2 Glucose Calcium Magnesium Iron TIBC Transferrin % Sat Ferritin Vitamin B12 Folate Procalcitonin < 0.1 Urine Color Yellow Urine Clarity Clear Urine pH 5.5 Ur Specific Tribune 1.020 Urine Protein Negative Urine Ketones Negative Urine Blood Trace-lysed H Urine Nitrite Negative Urine Bilirubin Negative Urine Urobilinogen 0.2 Ur Leukocyte Esterase Negative Urine RBC 0-2 Urine WBC Negative Ur Epithelial Cells Few Urine Crystals Negative Urine Bacteria Negative Urine Casts Negative Urine Mucus Negative Urine Other Ur Culture Indicated? No Urine Glucose Negative COVID-19 Source Nasal/Nares SARS-CoV-2 (PCR) Negative Add-On Test Request 01/16/22 01/16/22 01/16/22 06:50 06:50 06:50 WBC 6.41 RBC 2.91 L Hgb 7.7 L Hct 23.5 L MCV 81 MCH 26.5 L MCHC 32.8 RDW 16.0 H Plt Count 269 MPV 10.2 Immature Gran % 0.3 Neutrophils % 70.3 Lymphocytes % 15.3 Monocytes % 10.9 Eosinophils % 2.7 Basophils % 0.5 Nucleated RBC % 0.0 Absolute Neutrophils 4.51 Absolute Lymphocytes 0.98 L Absolute Monocytes 0.70 Absolute Eosinophils 0.17 Absolute Basophils 0.03 Sodium 140 Potassium 4.2 Chloride 106 Carbon Dioxide 26.2 Anion Gap 7.8 BUN 19 H Creatinine 0.9 Estimated GFR/1.73 m2 >= 60.00 Glucose 93 Calcium 8.7 Magnesium Iron TIBC Transferrin % Sat Ferritin Vitamin B12 Folate Procalcitonin Urine Color Urine Clarity Urine pH Ur Specific Tribune Urine Protein Urine Ketones Urine Blood Urine Nitrite Urine Bilirubin Urine Urobilinogen Ur Leukocyte Esterase Urine RBC Urine WBC Ur Epithelial Cells Urine Crystals Urine Bacteria Urine Casts Urine Mucus Urine Other Ur Culture Indicated? Urine Glucose COVID-19 Source SARS-CoV-2 (PCR) Add-On Test Request DONE 01/16/22 01/16/22 01/15/22 06:50 06:50 16:31 WBC RBC Hgb Hct MCV MCH MCHC RDW Plt Count MPV Immature Gran % Neutrophils % Lymphocytes % Monocytes % Eosinophils % Basophils % Nucleated RBC % Absolute Neutrophils Absolute Lymphocytes Absolute Monocytes Absolute Eosinophils Absolute Basophils Sodium Potassium Chloride Carbon Dioxide Anion Gap BUN Creatinine Estimated GFR/1.73 m2 Glucose Calcium Magnesium 1.7 L Iron 13 L TIBC 237 L Transferrin % Sat 5 L Ferritin 84 Vitamin B12 469 Folate 5.6 L Procalcitonin Urine Color Yellow Urine Clarity Clear Urine pH 5.5 Ur Specific Tribune 1.025 Urine Protein 30 H Urine Ketones Negative Urine Blood Trace-intact H Urine Nitrite Negative Urine Bilirubin Negative Urine Urobilinogen 0.2 Ur Leukocyte Esterase Trace H Urine RBC 3-5 H Urine WBC 10-20 H Ur Epithelial Cells Many Urine Crystals Negative Urine Bacteria Negative Urine Casts Negative Urine Mucus Negative Urine Other Negative Ur Culture Indicated? No/Sq. Contamination Urine Glucose Negative COVID-19 Source SARS-CoV-2 (PCR) Add-On Test Request PFSH All Active Problems Left rotator cuff tear arthropathy (Acute) Primary osteoarthritis, left shoulder (Acute) Hypomagnesemia (Acute) Recurrent UTI (urinary tract infection) (Acute) Tendonitis of left rotator cuff (Acute) Depression (Chronic) Goiter (Acute) Fibromyalgia (Chronic) KWAME (obstructive sleep apnea) (Chronic) Chronic pain (Chronic) Movement disorder (Acute) Muscle weakness (Acute) Left elbow contusion (Acute) Left displaced femoral neck fracture (Acute 09/16/20) Discharge planning issues (Acute) DVT prophylaxis (Acute) Chronic renal insufficiency, stage III (moderate) (Acute) Anemia (Chronic) Chronic pain syndrome (Chronic) Hypertension (Chronic) Fracture of left hip (Acute) Osteoarthritis of right knee (Acute) Steroid injection: 04/05/2020 Has had previous viscosupplementation injections. Primary osteoarthritis of left knee (Chronic) We will see the patient back in 4-1/2 months for possible repeat Synvisc 1 in her left knee would consider x-ray in her right knee if she is still significantly symptomatic Medical History Chronic constipation Chronic insomnia IBS (irritable bowel syndrome) Recurrent UTI Urge incontinence Surgical History History of back surgery History of total left hip replacement (09/17/20) As treatment for a femoral neck fracture (DOI: 09/16/2020) Hx of cholecystectomy Social History Smoking/Tobacco Use Status: Never Smoking risk assessment performed?: Yes Alcohol Intake: never Drug use: Never Substance use type: does not use Do you feel safe at home: Yes Do you feel safe in your relationship?: Yes Additional Social history: Grew up in [place], still lives in family home in [facility], lives alone In [place], still lives with her family health in [facility]. Still lives in family all
--- NOTE | 2022-01-16 15:39 | PDOC.CMDIS ---
- If Service Date Differs Date of service: 01/16/22 Time of Service: 15:39 LACE Index Scoring Tool - Questions: Length of Stay (in days): 3 Acuity (Admit via E.D.?): Yes E.D. Visits: 2 - Answers: Total Score: 8 Risk of Readmission: Low Risk Care Management Discharge Reason for Hospitalization: UTI, Confusion, Fall. Discharge Plan: Tegan left Against Medical Advise. Tegan will follow up with her PCP 01/25/22 as scheduled or sooner. New RX's are transmitted to [facility]. CM spoke with patient's daughter Renetta prior to Tegan's departure and recommended close follow up with PCP or return to the ER with if her condition worsens. Patient's son Amor provided transportation, which was arranged by Tegan and Renetta. Patient/Family Education Needs: Review AMA consent including conciderations and risks. ask me three.
--- NOTE | 2022-01-16 18:20 | PT.INDS ---
Date of service: 12/16/21 PT Notes Visit Reasons: UTI; Confusion; Fall Inpatient Physical Therapy Discharge Summary Date:?01/16/2022 Dates of service: 01/14/2022 through 01/16/2022 Referring Doctor:Ron Malave NP PT Orders: PT CONSULT: Fall safety assessment, limited ability Precautions: Standard precautions. Fall risk. Patient Profile/Admitting Diagnosis:? Patient is a 71-year-old female patient with past medical history of fibromyalgia, hypertension, and left hip replacement, presented to the [facility] emergency department for the chief complaint of falling with resulting left rib and bilateral hip pain.? Patient admitted upon arrival at ED that she had increasing weakness over the last couple weeks with multiple falls.? PMHX: PFSH All Active Problems?(Updated 01/13/22 @ 21:34 by Keira Malave NP) Left rotator cuff tear arthropathy (Acute) Primary osteoarthritis, left shoulder (Acute) Recurrent UTI (urinary tract infection) (Acute) Tendonitis of left rotator cuff (Acute) Depression (Chronic) Goiter (Acute) Fibromyalgia (Chronic) KWAME (obstructive sleep apnea) (Chronic) Chronic pain (Chronic) Movement disorder (Acute) Muscle weakness (Acute) Left elbow contusion (Acute) Left displaced femoral neck fracture (Acute 09/16/20) Discharge planning issues (Acute) DVT prophylaxis (Acute) Chronic renal insufficiency, stage III (moderate) (Acute) Anemia (Chronic) Chronic pain syndrome (Chronic) Hypertension (Chronic) Fracture of left hip (Acute) Osteoarthritis of right knee (Acute) Steroid injection: 04/05/2020 Has had previous viscosupplementation injections.Primary osteoarthritis of left knee (Chronic) We will see the patient back in 4-1/2 months for possible repeat Synvisc 1 in her left knee would consider x-ray in her right knee if she is still significantly symptomatic Medical History?(Updated 01/13/22 @ 21:34 by Keira Malave NP) Chronic constipation Chronic insomnia IBS (irritable bowel syndrome) Recurrent UTI Urge incontinence Surgical History?(Updated 09/26/21 @ 15:20 by DARIO Hurt) History of back surgery History of total left hip replacement (09/17/20) As treatment for a femoral neck fracture (DOI: 09/16/2020) Hx of cholecystectomy Social History/Home Situation: Patient lives alone in a single level dwelling with a ramp entering her home.? Has 2 children one who lives locally that checks on her occasionally. Current Functional Limitations: Self-care ADLs, functional mobility, sit to stand transfers, ambulation Equipment Owned/DME: Patient has four-wheel walker that she uses at baseline. Subjective:?Patient indicates she is experiencing some left rib pain particularly worse with deep breaths and any cough or sneeze.? She admits that her diagnostics were negative for any rib fracture.? Symptoms started from a fall on January 11, 2022.? She is agreeable to evaluation.? Is anxious to begin recovery and start moving to get out of her chair. Objective:?? General Observation: Sitting in hospital chair in room.? Kyphotic posture.? No acute distress.? She does show signs of pain when she coughs grabbing towards her left ribs.? Admits no resting pain. Mental Status: Alert and oriented x3 Pain: 2/10 at time of initial evaluation, 6/10 spikes when cough or sneeze.? Locates left ribs anterior lateral aspect of thorax. ? ROM: Right Upper Extremity: Within functional limits Left Upper Extremity: Within functional limits? Right Lower Extremity: Within functional limits Left Lower Extremity: Within functional limits Strength: Right Upper Extremity: Grossly 4/5 throughout Left Upper Extremity: Grossly 4/5 throughout Right Lower Extremity: Hip flexors 4-5, quads 4 -/5, hamstrings 4 -/5, ankle dorsiflexion and plantar flexion 4+/5.? Seated hip AB and adduction 4/5 Left Lower Extremity: 4 -/5 hip flexors, quads and hamstrings.? Ankle dorsiflexion and plantarflexion 4+/5, seated hip AB and adduction 4/5 Sensation:? Patient reports intact sensation light touch throughout bilateral lower extremities BED MOBILITY/TRANSFERS? Sit-stand: S? Stand-sit: S ? Gait? Assistive Device: FWW? Weight bearing: Full Assist: SBA ? Distance:? 150' ? Deviation: Slow natasha Balance:? Static Sitting: Good Dynamic Sitting:? Good Static Standing: Fair Dynamic Standing: Fair Assessment:?? Patient left A on 01/16/2022. Patient is a 71-year-old female referred to physical therapy services with the diagnosis of UTI, confusion, falls.? Patient presents with clinical signs and symptoms consistent with admitting diagnosis, as demonstrated by the following impairment level findings: 1.? Impaired standing balance 2.? Impaired activity tolerance 3.? Decreased strength bilateral lower extremity major muscle groups Impairments are contributing to the following functional limitations: AMPAC score. 1.? Increased dependence with transfers 2.? Inability to ambulate safely without assistive device and physical assistance 3.? Increased fall risk 4.? Increased completion time for mobility ADL performance Goals: Goals X1 week 1. Supine-Sit: Independent NOT MET 2. Sit-Supine: Independent NOT MET 3. Sit-Stand: Standby assist with a wheeled walker NOT MET 4. Stand-Sit: Independent from front wheeled walker?NOT MET 5. Bed-Chair: Standby assist with front wheeled walker?NOT MET 6. Chair-Bed: Standby assist with front wheel walker? NOT MET 7. Gait: 200+ feet with use of front wheeled walker standby assist? NOT MET 8. Independent with home exercise program NOT MET DISCHARGE RECOMMENDATIONS:? [] ? Home with no services [] [] ??Home with services Home health PT patient will benefit from home health PT services in order to progress mobility level using least restrictive assistive ambulatory device, assess home safety, identify additional equipment needs and establish functional maintenance program that will increase ability of patient to remain at home. [] ? Home with outpatient PT [] [] ? SNF for continued rehabilitation [] [] ? Maintenance Planning Clerk Care [] [] ? SNF versus LTC based on ability to participate and progress [] TREATMENT CODE/TIME: NC Thank you for the opportunity to participate in the care of this patient. Mikayla Jacobson PT, DPT, CLT [facility] [place], [place]
== END 2022-01-16 16:32 | disposition left against medical advice (07) ==
LOC: ER 17:45 → MS 18:23
PROVIDERS: Internal Medicine; Nurse Practitioner Family; Admitting Provider Family Medicine; Emergency Provider Physician Assistant; PCP Family Medicine; Visit Provider Family Medicine
DX: N39.0 Urinary tract infection, site not specified (principal); R50.9 Fever, unspecified; J90 Pleural effusion, not elsewhere classified; M79.7 Fibromyalgia; W18.39XA Other fall on same level, initial encounter; Z20.822 Contact with and (suspected) exposure to COVID-19; Z79.899 Other long term (current) drug therapy; I10 Essential (primary) hypertension; Z96.642 Presence of left artificial hip joint; R29.6 Repeated falls; R53.1 Weakness; G89.11 Acute pain due to trauma; R07.81 Pleurodynia; M25.552 Pain in left hip; M25.551 Pain in right hip; Z87.440 Personal history of urinary (tract) infections; G47.33 Obstructive sleep apnea (adult) (pediatric); E04.9 Nontoxic goiter, unspecified; F32.A Depression, unspecified; S50.02XA Contusion of left elbow, initial encounter; F51.04 Psychophysiologic insomnia; K59.09 Other constipation; N18.30 Chronic kidney disease, stage 3 unspecified; D64.9 Anemia, unspecified; I12.9 Hypertensive chronic kidney disease with stage 1 through stage 4 chronic kidney disease, or unspecified chronic kidney disease; M17.0 Bilateral primary osteoarthritis of knee; E83.42 Hypomagnesemia
CPT/HCPCS: 36415; 51701; 71250; 80048; 80053; 83690; 84145; 85027; 87040; 87077; 87635; 96361; 96365; 96366; 96367; 96368; 96372; 96375; 97110; 97161; 97530; 99285; J1650; 71046; 74176; 81003; 81015; 82607; 82728; 82746; 83540; 83550; 83735; 84484; 85014; 85018; 85025; 87086; 87186; 99217; 99219; 99225; G0378; J0131; J0696; J2270; J3480

== ENCOUNTER 2022-02-01 10:08 | Emergency (ER) | payer MEDICARE, SELFPAY ==
[2022-02-01] VITALS (18 sets, daily range): BP systolic 100–162; BP diastolic 57–93; PULSE 58–85; RESP 11–20; TEMP 37; O2SAT 96–98
--- NOTE | 2022-02-01 10:17 | ED.GENADUL_ITS ---
Discharge Plan Disposition Patient Disposition: HOME Condition: Improving Discharge Details Clinical Impression: Tic Primary Care Provider: Marixa Kurtz ED Provider: Joshua Huang Home Meds and New Rx's Prescriptions: New lorazepam [Ativan] 1 mg tablet 1 mg PO TID PRNQty: 8 0RF Rx Instructions: for Tic Continued calcium carbonate [Calcium 500] 500 mg calcium (1,250 mg) tablet 500 mg PO DAILY sertraline 50 mg tablet 75 mg PO DAILY trazodone 100 mg tablet 200 mg PO HS PRN PRN meloxicam 15 mg tablet 15 mg PO DAILY aspirin 81 mg tablet,delayed release (DR/EC) 81 mg PO DAILY Linzess 145 mcg capsule 145 mcg PO DAILY omeprazole 40 MG capsule,delayed release(DR/EC) 40 mg PO DAILY polyethylene glycol 3350 [Miralax] 119 GM powder 17 g PO DAILY PRN PRN vitamin B complex Tablet 1 tab PO DAILY lactulose 10 gram/15 mL solution 15 ml PO DAILY PRN PRN Label Comments: TAKE 15ML BY MOUTH DAILY FOR CONSTIPATION cholecalciferol (vitamin D3) [Vitamin D3] 25 mcg (1,000 unit) Tablet 50 mcg PO DAILY naloxone [Narcan] 4 mg/actuation [place],Non-Aerosol 4 mg INTRANASAL Q3M PRN lorazepam [Ativan] 1 mg tablet 1 mg PO DAILY PRNQty: 10 0RF oxycodone [OxyContin] 40 mg tablet,oral only,ext.rel.12 hr 40 tab PO BID Label Comments: TAKE ONE TABLET BY MOUTH TWICE A DAY sennosides [senna] 8.6 mg tablet 8.6 mg PO QPM amlodipine 10 mg tablet 10 mg PO DAILY prochlorperazine maleate 5 mg tablet 5 mg PO BID PRN PRN Label Comments: TAKE 1 TABLET BY MOUTH 2 TIMES DAILY NEEDED scopolamine base 1 mg over 3 days patch 3 day 1 patch topical Q72H Label Comments: 1 patch to skin every 72 hours ferrous sulfate 325 mg (65 mg iron) Tablet 325 mg PO BID Qty: 30 0RF folic acid 1 mg Tablet 1 mg PO QAM Qty: 30 0RF magnesium oxide 400 mg (241.3 mg magnesium) Tablet 400 mg PO BID Qty: 30 0RF cefpodoxime 200 mg tablet 200 mg PO BID Qty: 10 0RF Rx Instructions: must administer with a meal/food doxycycline monohydrate 100 mg capsule 100 mg PO BID Qty: 10 0RF Discharge Instructions Instructions: Tic Disorder (ED) Additional Instructions: At this time your laboratory values do not reveal any obvious emergent process. You have responded well to the IV Ativan. I am prescribing a short-term prescription of 8 tablets of Ativan, this medication may cause drowsiness and addiction. I strongly recommend that you contact your neurology team at [facility] to make them aware of your ER visit and ongoing symptoms. I also recommend you contact your primary care provider to make them aware of your ER visit and discuss the need for a refill of your OxyContin. Please watch for new or worsening symptoms and return to the ER. Medical Decision Making This is a 71-year-old female presents to the ER today for acute on chronic intermittent facial and upper extremity tick for which she is followed at [facility]. Typically Ativan helps the symptoms but she is out of that medication. She denies recent illness or trauma. Will obtain IV access, provide IV Ativan, and obtain CBC and CMP for potential metabolic disturbance. Based upon her presentation, extremely low suspicion for CVA, meningitis or other infectious process, etc. I see no clear indication to obtain advanced i maging of her brain today Laboratory values reveal baseline anemia. Leukopenia but when reviewing previous records it looks as though she has had this previously. No infectious presentation today. Electrolytes unremarkable Upon reevaluation after the single dose of IV Ativan of 1 mg she reports her symptoms are much improved but not resolved. We will provide 1 additional dose Patient received a second dose of IV Ativan 1 mg upon reevaluation she is sleeping comfortably, no longer observing any tics or involuntary spasms. Patient was observed in the ER for almost 2 hours. At this time she wakes easily to verbal stimuli, reports feeling much improved and requesting discharge. She will be provided a prescription for a total of 8 tablets of 1 mg Ativan. She also tells me that her 40 mg tablets of OxyContin have run out and she has no additional refills. I explained to her that this medication needs to come through 1 provider and they recommend contacting the office who prescrib es this to discuss her medication status. No signs of withdrawal now. We discussed the importance of being proactive with her medications so that she is not running out of her controlled substances and other medications and has appropriate refills. We also discussed the importance of contacting her neurology team at [facility] to discuss her ongoing symptoms and need for outpatient reevaluation. Son is comfortable taking her home in her current condition Standard discharge and return precautions were provided. Patient understands, is agreeable to this plan, and has no additional questions or concerns upon discharge. This documentation was generated using [employer] system, please disregard any oddities of phrase or misspellings. Medical Records Medical records reviewed: Yes I reviewed the patient's medical records. Lab Data Lab results reviewed: Yes I reviewed the patient's lab results. Labs: Laboratory Tests Range/Units 02/01/22 02/01/22 10:35 10:35 WBC (4.4-10.8) 10^3/uL 2.93 L RBC (3.93-5.22) 10^6/uL 3.56 L Hgb (11.2-15.7) g/dL 9.2 L Hct (36.0-46.0) % 29.1 L MCV (80-95) fL 82 MCH (27.0-33.0) pg 25.8 L MCHC (32.0-36.0) % 31.6 L RDW (11.7-14.6) % 15.9 H Plt Count (130-400) 10^3/uL 302 MPV (8.0-11.0) fL 9.8 Immature Gran % 0.7 Neutrophils % 54.9 Lymphocytes % 29.7 Monocytes % 13.3 Eosinophils % 0.7 Basophils % 0.7 Nucleated RBC % (0.0-0.3) % 0.0 Absolute Neutrophils (1.2-6.7) 10^3/uL 1.61 Absolute Lymphocytes (1.2-3.4) 10^3/uL 0.87 L Absolute Monocytes (0.1-0.8) 10^3/uL 0.39 Absolute Eosinophils (0.0-0.7) 10^3/uL 0.02 Absolute Basophils (0.0-0.2) 10^3/uL 0.02 Sodium (136-145) mmol/L 142 Potassium (3.5-5.1) mmol/L 3.8 Chloride (98-107) mmol/L 105 Carbon Dioxide (21.0-32.0) mmol/L 28.1 Anion Gap (3-11) mmol/L 8.9 BUN (7-18) mg/dL 23 H Creatinine (0.55-1.02) mg/dL 1.0 Estimated GFR/1.73 m2 (mL/min/1.73m2) 54.35 Glucose (74-106) mg/dL 110 H Calcium (8.5-10.1) mg/dL 8.9 Total Bilirubin (0.2-1.0) mg/dL 0.3 AST (15-37) U/L 14 L ALT (14-59) U/L 13 L Alkaline Phosphatase (46-116) U/L 73 Total Protein (6.4-8.2) g/dL 8.2 Albumin (3.4-5.0) g/dL 3.7 HPI General Mode of arrival: EMS . Date/Time Provider Initiated Documentation: 02/01/22 10:11 . Limitations to Documentation: no limitations . Information obtained by: patient and EMS . HPI Narrative: Patient is a 71-year-old female with a past medical history that includes d epression, fibromyalgia, chronic pain, movement disorder, chronic renal deficiency, anemia, hypertension, presenting to the ER today reporting a facial and shoulder take-spasm that began last night around 8 PM. Patient states that she has had this multiple times in the past and that typically Ativan helps with her symptoms but she is out of her Ativan. She is followed by [facility] neurology for the same. She states that she has had these symptoms multiple times in the past and this is exactly like previous episodes. She denies recent illness or trauma. Denies headache, fever, visual changes, neck pain, chest pain, shortness of breath, abdominal pain, nausea, vomiting, focal numbness, tingling, weakness. Patient's son was present and reports this is a very typical presentation. Unfortunately they are out of Ativan and attempted to contact their PCP this morning for a refill but were unsuccessful. He states that if they had Ativan at home it would likely not be here. Typically it takes 2 doses for symptoms to resolve completely Related Data Home Medications Medication Instructions Recorded Confirmed omeprazole 40 mg capsule,delayed 40 mg PO DAILY 05/19/14 02/01/22 release polyethylene glycol 3350 17 17 g PO DAILY PRN PRN 05/19/14 02/01/22 gram/dose oral powder (Miralax) cholecalciferol (vitamin D3) 25 50 mcg PO DAILY 01/05/20 02/01/22 mcg (1,000 unit) tablet (Vitamin D3) lactulose 10 gram/15 mL oral 15 ml PO DAILY PRN PRN 01/05/20 02/01/22 solution naloxone 4 mg/actuation nasal 4 mg intranasal Q3M PRN 01/05/20 02/01/22 spray (Narcan) vitamin B complex 1 tab PO DAILY 01/05/20 02/01/22 calcium carbonate 500 mg calcium 500 mg PO DAILY 10/19/20 02/01/22 (1,250 mg) tablet (Calcium 500) sertraline 50 mg tablet 75 mg PO DAILY 10/19/20 02/01/22 trazodone 100 mg tablet 200 mg PO HS PRN PRN 01/03/21 02/01/22 aspirin 81 mg tablet,delayed 81 mg PO DAILY 06/23/21 02/01/22 release linaclotide 145 mcg capsule 145 mcg PO DAILY 06/23/21 02/01/22 (Linzess) meloxicam 15 mg tablet 15 mg PO DAILY 08/08/21 02/01/22 lorazepam 1 mg tablet (Ativan) 1 mg PO DAILY PRN #10 tabs 10/23/21 02/01/22 oxycodone 40 mg tablet,crush 40 tab PO BID 01/13/22 02/01/22 resistant,extended release 12 hr (OxyContin) amlodipine 10 mg tablet 10 mg PO DAILY 01/14/22 02/01/22 prochlorperazine maleate 5 mg 5 mg PO BID PRN PRN 01/14/22 02/01/22 tablet scopolamine base 1 mg over 3 days 1 patch topical Q72H 01/14/22 02/01/22 transdermal patch sennosides 8.6 mg tablet (senna) 8.6 mg PO QPM 01/14/22 02/01/22 cefpodoxime 200 mg tablet 200 mg PO BID #10 tabs 01/16/22 02/01/22 doxycycline monohydrate 100 mg 100 mg PO BID #10 caps 01/16/22 02/01/22 capsule ferrous sulfate 325 mg (65 mg 325 mg PO BID #30 tabs 01/16/22 02/01/22 iron) tablet folic acid 1 mg tablet 1 mg PO QAM #30 tabs 01/16/22 02/01/22 magnesium oxide 400 mg (241.3 mg 400 mg PO BID #30 tabs 01/16/22 02/01/22 magnesium) tablet lorazepam 1 mg tablet (Ativan) 1 mg PO TID PRN #8 tabs 02/01/22 Previous Rx's Medication Instructions Recorded lorazepam 1 mg tablet (Ativan) 1 mg PO DAILY PRN #10 tabs 10/23/21 cefpodoxime 200 mg tablet 200 mg PO BID #10 tabs 01/16/22 doxycycline monohydrate 100 mg 100 mg PO BID #10 caps 01/16/22 capsule ferrous sulfate 325 mg (65 mg 325 mg PO BID #30 tabs 01/16/22 iron) tablet folic acid 1 mg tablet 1 mg PO QAM #30 tabs 01/16/22 magnesium oxide 400 mg (241.3 mg 400 mg PO BID #30 tabs 01/16/22 magnesium) tablet lorazepam 1 mg tablet (Ativan) 1 mg PO TID PRN #8 tabs 02/01/22 Allergies Allergy/AdvReac Type Severity Reaction Status Date / Time sulfamethoxazole Allergy Verified 02/01/22 10:25 [From Bactrim] trimethoprim [From Bactrim] Allergy Verified 02/01/22 10:25 morphine AdvReac Intermediate Psychosis Unverified 02/01/22 10:25 baclofen AdvReac Unknown Unverified 02/01/22 10:25 chlorthalidone AdvReac Unknown Unverified 02/01/22 10:25 codeine AdvReac Unknown Unverified 02/01/22 10:25 dextromethorphan AdvReac Unknown Unverified 02/01/22 10:25 gabapentin [From Neurontin] AdvReac Unknown Unverified 02/01/22 10:25 hydrochlorothiazide AdvReac Unknown Unverified 02/01/22 10:25 pregabalin AdvReac Unknown Dopey Unverified 02/01/22 10:25 General LOLITA: 3 Review of Systems Constitutional Constitutional: Denies fever(s) and Denies headache(s) Eyes Eyes: Denies change in vision ENT Ears, Nose, Mouth, and Throat: Denies headache(s) and Denies neck pain Cardiovascular Cardiovascular: Denies chest pain and Denies dyspnea Respiratory Respiratory: Denies dyspnea Gastrointestinal Gastrointestinal: Denies abdominal pain, Denies nausea and Denies vomiting Genitourinary Genitourinary: Denies dysuria Musculoskeletal Musculoskeletal: Denies neck pain, Denies numbness and Denies tingling Integumentary/Breasts Skin/Breast: Denies rash Neurologic Neurologic: Denies headache(s), Denies numbness and Denies tingling PFSH All Active Problems (Updated 02/01/22 @ 12:00 by DARIO Maharaj) Tic (Acute) Left rotator cuff tear arthropathy (Acute) Primary osteoarthritis, left shoulder (Acute) Hypomagnesemia (Acute) Recurrent UTI (urinary tract infection) (Acute) Tendonitis of left rotator cuff (Acute) Depression (Chronic) Goiter (Acute) Fibromyalgia (Chronic) KWAME (obstructive sleep apnea) (Chronic) Chronic pain (Chronic) Movement disorder (Acute) Muscle weakness (Acute) Left elbow contusion (Acute) Left displaced femoral neck fracture (Acute 09/16/20) Chronic renal insufficiency, stage III (moderate) (Acute) Anemia (Chronic) Chronic pain syndrome (Chronic) Hypertension (Chronic) Fracture of left hip (Acute) Osteoarthritis of right knee (Acute) Steroid injection: 04/05/2020 Has had previous viscosupplementation injections. Primary osteoarthritis of left knee (Chronic) We will see the patient back in 4-1/2 months for possible repeat Synvisc 1 in her left knee would consider x-ray in her right knee if she is still significantly symptomatic Medical History Chronic constipation Chronic insomnia IBS (irritable bowel syndrome) Recurrent UTI Urge incontinence Surgical History History of back surgery History of total left hip replacement (09/17/20) As treatment for a femoral neck fracture (DOI: 09/16/2020) Hx of cholecystectomy Social History Smoking/Tobacco Use Status: Never Smoking risk assessment performed?: Yes Alcohol Intake: never Drug use: Never Substance use type: does not use Do you feel safe at home: Yes Do you feel safe in your relationship?: Yes Additional Social history: Grew up in [place], still lives in family home in [place], lives alone In [place], still lives with her family health in [place] [facility]. Still lives in family all Exam Const General: cooperative, healthy appearing, comfortable and no acute distress Orientation: alert, awake and oriented x3 HENMT Head: normal to inspection, normocephalic and atraumatic Face and sinus: normal facial exam Mouth: moist mucous membranes Eyes General: appearance normal, both eyes and all related structures Conjunctivae: conjunctivae normal Neck Neck: normal visual inspection, full ROM, no meningeal signs, trachea midline, supple and nontender Resp Effort & Inspection: normal respiratory effort and able to speak in complete sentences Auscultation: clear to auscultation bilaterally Cardio Rate: regular rate Rhythm: regular rhythm GI Palpation: soft and nontender Back/Spine/Pelvis Back: No back tenderness Skin General skin exam: no rashes or lesions noted Neuro General: patient alert, patient awake, moves all extremities and no focal motor deficits Cognition: normal cognition Speech: speech normal Gait: normal gait Motor: strength 5/5 throughout Sensory Exam: no sensory deficits noted Other: Patient has involuntary movement of her entire face and bilateral trapezius muscles. Extrem General: normal to inspection, full ROM, capillary refill normal, no pedal edema and no calf tenderness Psych Appearance: grossly normal Mental Status: mental status grossly normal
[2022-02-01] MEDS: LORazepam 20 MG/10 ML VIAL IVP ×2 (10:40→11:15)
[2022-02-01 10:48] LABS: Abs Immature Grans 0.02 10^3/uL (0.0-0.06); Absolute Basophil Count 0.02 10^3/uL (0.0-0.2); Absolute Eosinophil Count 0.02 10^3/uL (0.0-0.7); Absolute Lymphocyte Count 0.87 10^3/uL (1.2-3.4); Absolute Monocyte Count 0.39 10^3/uL (0.1-0.8); Absolute Neutrophil Count 1.61 10^3/uL (1.2-6.7); Basophils % 0.7; Eosinophils % 0.7; HCT 29.1 % (36.0-46.0); HGB 9.2 g/dL (11.2-15.7); Immature Grans % 0.7; Lymphocytes % 29.7; MCH 25.8 pg (27.0-33.0); MCHC 31.6 % (32.0-36.0); MCV 82 fL (80-95); MPV 9.8 fL (8.0-11.0); Monocytes % 13.3; Neutrophils % 54.9; Platelet Count 302 10^3/uL (130-400); RBC 3.56 10^6/uL (3.93-5.22); RDW 15.9 % (11.7-14.6); RDW-SD 47.4 fL; WBC 2.93 10^3/uL (4.4-10.8)
[2022-02-01 11:02] LABS: ALT 13 U/L (14-59); AST 14 U/L (15-37); Albumin 3.7 g/dL (3.4-5.0); Alkaline Phosphatase 73 U/L (46-116); Anion Gap 8.9 mmol/L (3-11); BUN 23 mg/dL (7-18); Bilirubin, Total 0.3 mg/dL (0.2-1.0); CO2 28.1 mmol/L (21.0-32.0); Calcium 8.9 mg/dL (8.5-10.1); Chloride 105 mmol/L (98-107); Estimated GFR 54.35 (mL/min/1.73m2); Glucose 110 mg/dL (74-106); Potassium 3.8 mmol/L (3.5-5.1); Sodium 142 mmol/L (136-145); Total Protein 8.2 g/dL (6.4-8.2)
== END 2022-02-01 12:11 | disposition home or self-care (01) ==
PROVIDERS: Emergency Provider Physician Assistant; PCP Family Medicine
DX: F95.9 Tic disorder, unspecified (principal); D64.9 Anemia, unspecified; I10 Essential (primary) hypertension; Z79.82 Long term (current) use of aspirin; Z79.899 Other long term (current) drug therapy
CPT/HCPCS: 36415; 80053; 96374; 96376; 99284; 85025; J3490

== ENCOUNTER 2022-02-26 06:30 | Emergency (ER) | payer MEDICARE, SELFPAY ==
[2022-02-26 06:36] VITALS: BP 160/64; PULSE 99; RESP 14; TEMP 37.8; O2SAT 95
--- NOTE | 2022-02-26 06:47 | W.ED.GENAD ---
Discharge Plan Disposition Patient Disposition: HOME Condition: Good Discharge Details Clinical Impression: Contusion of rib on right side Primary Care Provider: Marixa Kurtz ED Provider: Los Carter Home Meds and New Rx's Prescriptions: New lidocaine [Lidoderm] 5 % adhesive patch,medicated 1 patch Topical Q24H Qty: 15 0RF No Action sertraline 50 mg tablet 75 mg PO DAILY trazodone 100 mg tablet 200 mg PO HS PRN PRN meloxicam 15 mg tablet 15 mg PO DAILY aspirin 81 mg tablet,delayed release (DR/EC) 81 mg PO DAILY Linzess 145 mcg capsule 145 mcg PO DAILY omeprazole 40 MG capsule,delayed release(DR/EC) 40 mg PO DAILY polyethylene glycol 3350 [Miralax] 119 GM powder 17 g PO DAILY PRN PRN vitamin B complex Tablet 1 tab PO DAILY lactulose 10 gram/15 mL solution 15 ml PO DAILY PRN PRN Label Comments: TAKE 15ML BY MOUTH DAILY FOR CONSTIPATION cholecalciferol (vitamin D3) [Vitamin D3] 25 mcg (1,000 unit) Tablet 50 mcg PO DAILY naloxone [Narcan] 4 mg/actuation [place],Non-Aerosol 4 mg INTRANASAL Q3M PRN lorazepam [Ativan] 1 mg tablet 1 mg PO DAILY PRNQty: 10 0RF oxycodone [OxyContin] 40 mg tablet,oral only,ext.rel.12 hr 40 tab PO BID Label Comments: TAKE ONE TABLET BY MOUTH TWICE A DAY sennosides [senna] 8.6 mg tablet 8.6 mg PO QPM amlodipine 10 mg tablet 10 mg PO DAILY prochlorperazine maleate 5 mg tablet 5 mg PO BID PRN PRN Label Comments: TAKE 1 TABLET BY MOUTH 2 TIMES DAILY NEEDED scopolamine base 1 mg over 3 days patch 3 day 1 patch topical Q72H Label Comments: 1 patch to skin every 72 hours ferrous sulfate 325 mg (65 mg iron) Tablet 325 mg PO BID Qty: 30 0RF folic acid 1 mg Tablet 1 mg PO QAM Qty: 30 0RF magnesium oxide 400 mg (241.3 mg magnesium) Tablet 400 mg PO BID Qty: 30 0RF Discharge Instructions Instructions: Rib Contusion (ED) Additional Instructions: At this time your ribs are notably contused. Please continue to use a heating pad on your ribs to help with pain. Please take Tylenol as needed for breakthrough pain and your oxycodones as needed if the pain becomes severe. Please use the Lidoderm patches that have been prescribed and sent to your pharmacy on file. Please use the incentive spirometer as directed to help maintain good lung function as your ribs are in the healing stage. If you notice any worsening of your symptoms, or any new symptoms such as vomiting, diarrhea, fever, chills, shortness of breath, chest pain, numbness, weakness, or fainting , please return immediately to the emergency department for reevaluation. Please follow up with your primary care provider as soon as possible for reassessment and reevaluation. As always, it was a pleasure participating in your medical care today. Referrals: Marixa Kurtz [Primary Care Provider] - Medical Decision Making This is a pleasant 71-year-old female with a past medical history of fibromyalgia, obstructive sleep apnea, hypertension, not on any blood thinners, who presents today for evaluation of right rib pain. The patient states that 24 hours ago she was getting out of her bed when she slipped and hit her buttock on the ground. She thinks she may have also hit her right ribs on the guard rail. She was fine at that time, but then later throughout the day she developed mild right-sided rib pain. Worse with movement and palpation. She denies any abdominal pain. She did not hit her head. She denies any loss of consciousness. She did take a [place], but this did not help her pain. No other complaints at this time. No other modifying factors. She denies cough or fever or chills. . Physical exam demonstrates a well-appearing female, with subjective tenderness on the right lateral ribs. No bruising, paradoxical movement, crepitus, or other significant abnormalities. Vital signs notably stable. Lung sounds clear. Differential is highest for rib fracture or contusion. Will give Lidoderm patch and get an x-ray. 7:47 AM Personal review of the x-ray does not show any large fractures, however we are still waiting on radiology read. Patient remains hemodynamically stable. No clear evidence of pneumothorax or other significant abnormality. I do feel that the patient is suffering from a rib contusion or a small fracture that cannot be visualized. Will recommend continued Lidoderm patch heating pad and Tylenol. The patient does have oxycodone at home which she can still take if needed. He is to be signed out to my colleague Dr. Buckley for follow-up on imaging results. HPI General Date/Time Provider Initiated Documentation: 02/26/22 06:44. HPI Narrative: This is a pleasant 71-year-old female with a past medical history of fibromyalgia, obstructive sleep apnea, hypertension, not on any blood thinners, who presents today for evaluation of right rib pain. The patient states that 24 hours ago she was getting out of her bed when she slipped and hit her buttock on the ground. She thinks she may have also hit her right ribs on the guard rail. She was fine at that time, but then later throughout the day she developed mild right-sided rib pain. Worse with movement and palpation. She denies any abdominal pain. She did not hit her head. She denies any loss of consciousness. She did take a [place], but this did not help her pain. No other complaints at this time. No other modifying factors. She denies cough or fever or chills. Related Data Home Medications Medication Instructions Recorded Confirmed omeprazole 40 mg capsule,delayed 40 mg PO DAILY 05/19/14 02/26/22 release polyethylene glycol 3350 17 17 g PO DAILY PRN PRN 05/19/14 02/26/22 gram/dose oral powder (Miralax) cholecalciferol (vitamin D3) 25 50 mcg PO DAILY 01/05/20 02/26/22 mcg (1,000 unit) tablet (Vitamin D3) lactulose 10 gram/15 mL oral 15 ml PO DAILY PRN PRN 01/05/20 02/26/22 solution naloxone 4 mg/actuation nasal 4 mg intranasal Q3M PRN 01/05/20 02/26/22 spray (Narcan) vitamin B complex 1 tab PO DAILY 01/05/20 02/26/22 sertraline 50 mg tablet 75 mg PO DAILY 10/19/20 02/26/22 trazodone 100 mg tablet 200 mg PO HS PRN PRN 01/03/21 02/26/22 aspirin 81 mg tablet,delayed 81 mg PO DAILY 06/23/21 02/26/22 release linaclotide 145 mcg capsule 145 mcg PO DAILY 06/23/21 02/26/22 (Linzess) meloxicam 15 mg tablet 15 mg PO DAILY 08/08/21 02/01/22 lorazepam 1 mg tablet (Ativan) 1 mg PO DAILY PRN #10 tabs 10/23/21 02/26/22 oxycodone 40 mg tablet,crush 40 tab PO BID 01/13/22 02/26/22 resistant,extended release 12 hr (OxyContin) amlodipine 10 mg tablet 10 mg PO DAILY 01/14/22 02/26/22 prochlorperazine maleate 5 mg 5 mg PO BID PRN PRN 01/14/22 02/26/22 tablet scopolamine base 1 mg over 3 days 1 patch topical Q72H 01/14/22 02/26/22 transdermal patch sennosides 8.6 mg tablet (senna) 8.6 mg PO QPM 01/14/22 02/26/22 ferrous sulfate 325 mg (65 mg 325 mg PO BID #30 tabs 01/16/22 02/26/22 iron) tablet folic acid 1 mg tablet 1 mg PO QAM #30 tabs 01/16/22 02/26/22 magnesium oxide 400 mg (241.3 mg 400 mg PO BID #30 tabs 01/16/22 02/26/22 magnesium) tablet lidocaine 5 % topical patch 1 patch topical Q24H #15 ea 02/26/22 (Lidoderm) Previous Rx's Medication Instructions Recorded lorazepam 1 mg tablet (Ativan) 1 mg PO DAILY PRN #10 tabs 10/23/21 ferrous sulfate 325 mg (65 mg 325 mg PO BID #30 tabs 01/16/22 iron) tablet folic acid 1 mg tablet 1 mg PO QAM #30 tabs 01/16/22 magnesium oxide 400 mg (241.3 mg 400 mg PO BID #30 tabs 01/16/22 magnesium) tablet lidocaine 5 % topical patch 1 patch topical Q24H #15 ea 02/26/22 (Lidoderm) Allergies Allergy/AdvReac Type Severity Reaction Status Date / Time sulfamethoxazole Allergy Verified 02/26/22 06:44 [From Bactrim] trimethoprim [From Bactrim] Allergy Verified 02/26/22 06:44 morphine AdvReac Intermediate Psychosis Unverified 02/26/22 06:44 baclofen AdvReac Unknown Unverified 02/26/22 06:44 chlorthalidone AdvReac Unknown Unverified 02/26/22 06:44 codeine AdvReac Unknown Unverified 02/26/22 06:44 dextromethorphan AdvReac Unknown Unverified 02/26/22 06:44 gabapentin [From Neurontin] AdvReac Unknown Unverified 02/26/22 06:44 hydrochlorothiazide AdvReac Unknown Unverified 02/26/22 06:44 pregabalin AdvReac Unknown Dopey Unverified 02/26/22 06:44 General Stated Complaint: Chest/Rib LOLITA: 3 Review of Systems All systems reviewed & are unremarkable except as noted in HPI and below PFSH All Active Problems (Updated 02/26/22 @ 07:48 by Los Carter DO) Tic (Acute) Contusion of rib on right side (Acute) Left rotator cuff tear arthropathy (Acute) Primary osteoarthritis, left shoulder (Acute) Hypomagnesemia (Acute) Recurrent UTI (urinary tract infection) (Acute) Tendonitis of left rotator cuff (Acute) Depression (Chronic) Goiter (Acute) Fibromyalgia (Chronic) KWAME (obstructive sleep apnea) (Chronic) Chronic pain (Chronic) Movement disorder (Acute) Muscle weakness (Acute) Left elbow contusion (Acute) Left displaced femoral neck fracture (Acute 09/16/20) Chronic renal insufficiency, stage III (moderate) (Acute) Anemia (Chronic) Chronic pain syndrome (Chronic) Hypertension (Chronic) Fracture of left hip (Acute) Osteoarthritis of right knee (Acute) Steroid injection: 04/05/2020 Has had previous viscosupplementation injections. Primary osteoarthritis of left knee (Chronic) We will see the patient back in 4-1/2 months for possible repeat Synvisc 1 in her left knee would consider x-ray in her right knee if she is still significantly symptomatic Medical History Chronic constipation Chronic insomnia IBS (irritable bowel syndrome) Recurrent UTI Urge incontinence Surgical History History of back surgery History of total left hip replacement (09/17/20) As treatment for a femoral neck fracture (DOI: 09/16/2020) Hx of cholecystectomy Social History Smoking/Tobacco Use Status: Never Smoking risk assessment performed?: Yes Alcohol Intake: never Drug use: Never Substance use type: does not use Do you feel safe at home: Yes Do you feel safe in your relationship?: Yes Additional Social history: Grew up in [place], still lives in family home in [facility], lives alone In [place], still lives with her family health in [facility]. Still lives in family all Exam Narrative Exam Narrative: 1.Const: Well-nourished, Well-developed, appearing stated age 2.Eyes: PERRL, no conjunctival injection, and symmetrical lids. 3.ENT: Atraumatic external nose and ears. Moist MM. Neck: Symmetric, trachea midline, No thyromegaly. 4.CVS: +S1/S2, No murmurs or gallops. Peripheral pulses 2+ and equal in all extremities. Brisk capillary refill in all extremities. 5.RESP: Unlabored respiratory effort. Clear to auscultation bilaterally. No wheezes rales or rhonchi. Right chest wall demonstrates mild tenderness on palpation of the right lateral ribs. No specific focality otherwise. No significant posterior or anterior tenderness. No paradoxical movements. No crepitus. No bruising. 6.GI: Soft, Nontender/Nondistended, No hepatosplenomegaly. No guarding or rebound. 7.MSK: Normocephalic/Atraumatic, Extremities w/o deformity or ttp No cyanosis or clubbing, Normal movement of all extremities 8.Skin: Warm, Dry. No rashes or lesions. 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 Sensation grossly intact, no focal neurologic deficits. 10.Psych: (AAO) x3. Appropriate mood and affect Course Vital Signs Vital signs: Vital Signs Temperature 37.8 C H 02/26/22 06:36 Pulse 99 H 02/26/22 06:36 Respiratory Rate 14 02/26/22 06:36 Pulse Oximetry 95 02/26/22 06:36 Temperature 37.8 C H 02/26/22 06:36 Temperature Source Skin 02/26/22 06:36 Pulse 99 H 02/26/22 06:36 Respiratory Rate 14 02/26/22 06:36 Respiratory Effort 02/26/22 06:40 Respiratory Depth Normal 02/26/22 06:40 Respiratory Pattern Irregular 02/26/22 06:40 Blood Pressure Position Supine 02/26/22 06:36 Pulse Oximetry 95 02/26/22 06:36 Oxygen Delivery Method Room Air 02/26/22 06:36 Oxygen Flow Rate 0 02/26/22 06:36 Pain Level 10 02/26/22 06:40 Comment 02/26/22 06:36
[2022-02-26] MEDS: Lidocaine 5% Patch 1 PATCH TP (06:54)
--- NOTE | 2022-02-26 07:33 | DI.RAD_ITS ---
Exam(s) XR RIBS RT W PA LAT CHEST EXAM: XR RIBS RT W PA LAT CHEST CLINICAL HISTORY: right rib pain after fall, r/o fx TECHNIQUE: 2D digital imaging was performed. COMPARISON: CR XR CHEST 2V PA LATERAL from 01/16/2022 FINDINGS: RIBS 3 VIEWS-right There are no acute rib fractures evident. No lytic rib lesions identified. Evidence of prior right shoulder surgery. Also evidence of cervical spine surgery with anterior fusion plate noted. CXR- 2 VIEWS: No lung contusion or pneumothorax. There is no pleural effusion evident. Heart size is normal and there is no significant mediastinal widening. IMPRESSION: 1. No right rib fractures evident. Also no obvious rib lesions. 2. No ipsilateral lung nor pleural abnormality evident. No pneumothorax. Other findings as above. DATA REPOSITORY: RADIATION DOSE DELIVERED:
[2022-02-26 07:56] VITALS: BP 154/68; PULSE 94; TEMP 37.5; O2SAT 92
[2022-02-26] MEDS: Acetaminophen 500 MG TAB (08:14)
--- NOTE | 2022-02-26 08:14 | DI.VRAD_ITS ---
PROCEDURE INFORMATION: Exam: XR Right Ribs Exam date and time: 02/26/2022 7:18 AM Age: 71 years old Clinical indication: Injury or trauma; Blunt trauma (contusions or hematomas); Rib area; Injury details: Fall -posterior mid rib pain TECHNIQUE: Imaging protocol: Radiologic exam of the Right ribs. Views: 2 views. COMPARISON: CR XR CHEST 2V PA LATERAL 01/16/2022 1:07 PM FINDINGS: Bones/joints: Right shoulder rotator cuff repair with it. Thoracic spondylosis. Lumbar levoscoliosis. No acute rib fracture visualized. Organs: Cholecystectomy clips. Soft tissues: Normal. IMPRESSION: 1. Postsurgical changes. 2. Please see also chest radiograph report below. PROCEDURE INFORMATION: Exam: XR Chest Exam date and time: 02/26/2022 7:18 AM Age: 71 years old Clinical indication: Injury or trauma; Blunt trauma (contusions or hematomas); Rib area; Injury details: Fall -posterior mid rib pain TECHNIQUE: Imaging protocol: Radiologic exam of the chest. Views: 2 views. COMPARISON: CR XR CHEST 2V PA LATERAL 01/16/2022 1:07 PM FINDINGS: Lungs: Few left lower lobe linear opacities likely residual atelectasis. Lungs otherwise clear. Pleural spaces: Unremarkable. No pleural effusion. No pneumothorax. Heart/Mediastinum: Cardiac silhouette not enlarged. Vasculature: Aortic tortuosity. Bones/joints: Lower cervical fixation hardware. Osteopenia. IMPRESSION: 1. Minimal left lower lung probable residual fibro atelectatic change. 2. Please see also right rib radiograph report above. Dictated and Authenticated by: Man Bahena MD. Ordering:BERNABE Madison MD
== END 2022-02-26 08:27 | disposition home or self-care (01) ==
LOC: ER 08:32
PROVIDERS: Emergency Provider Student in an Organized Health Care Education/Training Program; PCP Family Medicine
DX: S20.211A Contusion of right front wall of thorax, initial encounter (principal); I10 Essential (primary) hypertension; W18.40XA Slipping, tripping and stumbling without falling, unspecified, initial encounter; W22.09XA Striking against other stationary object, initial encounter
CPT/HCPCS: 99283; 71046; 71100; 99284

== ENCOUNTER 2022-03-01 22:31 | Outpatient (REF) | payer MEDICARE, SELFPAY | END 2022-03-01 22:32 | disposition home or self-care (01) | LOC: LBN 22:31 | PROVIDERS: PCP Family Medicine; Visit Provider Family Medicine | DX: N39.0 Urinary tract infection, site not specified (principal) | CPT/HCPCS: 87077; 87086; 87186 ==

== ENCOUNTER 2022-03-29 14:40 | Outpatient (REF) | payer MEDICARE, SELFPAY | END 2022-03-29 14:41 | disposition home or self-care (01) | LOC: NCHCN 14:40 | PROVIDERS: PCP Family Medicine; Visit Provider Family Medicine | DX: R30.0 Dysuria (principal) | CPT/HCPCS: 87077; 87086; 87186 ==

== ENCOUNTER 2022-04-14 15:09 | Outpatient (REF) | payer MEDICARE, SELFPAY ==
[2022-04-14 13:46] LABS: Bilirubin Negative (Negative); Blood Small (Negative); Clarity Cloudy (Clear); Glucose Negative (Negative); Ketones Negative (Negative); Leukocyte Esterase Small (Negative); Nitrite Positive (Negative); Urobilinogen 0.2 EU/dL (Up TO 0.2); pH 6.5 (5-8)
[2022-04-14 13:52] LABS: Bacteria Moderate HPF (Negative); C & S Indicated? C&S Done As Ordered; Casts Negative LPF (Negative); Crystals Negative HPF (Negative); Epithelial Cells Few HPF (Negative); Mucus Trace (Negative)
== END 2022-04-14 15:10 | disposition home or self-care (01) ==
LOC: LBN 15:09
PROVIDERS: PCP Family Medicine; Visit Provider Family Medicine
DX: Z87.440 Personal history of urinary (tract) infections (principal)
CPT/HCPCS: 87077; 81003; 81015; 87086; 87186

== ENCOUNTER 2023-02-02 12:09 | Emergency (ER) | payer MEDICARE, MEDICAID, SELFPAY ==
[2023-02-02 12:20] VITALS: BP 180/96; PULSE 78; RESP 18; TEMP 36.6; O2SAT 95
[2023-02-02] MEDS: LORazepam 1 MG TAB PO (13:03)
[2023-02-02] MEDS: oxyCODONE-CR 10 MG TABCR PO (13:35)
--- NOTE | 2023-02-02 13:42 | W.ED.GENAD ---
Discharge Plan Disposition Patient Disposition: Home Discharge Details Clinical Impression: Tremor Primary Care Provider: Marixa Kurtz ED Provider: Kwame Oliva Home Meds and New Rx's Prescriptions: New oxycodone [OxyContin] 40 mg tablet,oral only,ext.rel.12 hr 40 mg PO BID Qty: 6 0RF lorazepam 1 mg tablet 1 mg PO DAILY PRNQty: 3 0RF No Action sertraline 50 mg tablet 75 mg PO DAILY trazodone 100 mg tablet 200 mg PO HS PRN PRN meloxicam 15 mg tablet 15 mg PO DAILY aspirin 81 mg tablet,delayed release (DR/EC) 81 mg PO DAILY Linzess 145 mcg capsule 145 mcg PO DAILY topiramate [Topamax] 25 mg tablet 25 mg PO DAILY metoclopramide HCl 5 mg tablet 5 mg PO TID Rx Instructions: administer 30 minutes before meals omeprazole 40 MG capsule,delayed release(DR/EC) 40 mg PO DAILY polyethylene glycol 3350 [Miralax] 119 GM powder 17 g PO DAILY PRN PRN vitamin B complex Tablet 1 tab PO DAILY lactulose 10 gram/15 mL solution 15 ml PO DAILY PRN PRN Patient Comments: TAKE 15ML BY MOUTH DAILY FOR CONSTIPATION cholecalciferol (vitamin D3) [Vitamin D3] 25 mcg (1,000 unit) Tablet 50 mcg PO DAILY naloxone [Narcan] 4 mg/actuation [place],Non-Aerosol 4 mg INTRANASAL Q3M PRN lorazepam [Ativan] 1 mg tablet 1 mg PO DAILY PRNQty: 10 0RF oxycodone [OxyContin] 40 mg tablet,oral only,ext.rel.12 hr 40 tab PO BID Patient Comments: TAKE ONE TABLET BY MOUTH TWICE A DAY sennosides [senna] 8.6 mg tablet 8.6 mg PO QPM amlodipine 10 mg tablet 10 mg PO DAILY prochlorperazine maleate 5 mg tablet 5 mg PO BID PRN PRN Patient Comments: TAKE 1 TABLET BY MOUTH 2 TIMES DAILY NEEDED folic acid 1 mg Tablet 1 mg PO QAM Qty: 30 0RF magnesium oxide 400 mg (241.3 mg magnesium) Tablet 400 mg PO BID Qty: 30 0RF Discharge Instructions Instructions: Tremors (ED) Additional Instructions: Please follow-up with your primary care physician. Medical Decision Making 72-year-old female history of hypertension CKD fibromyalgia, depression, presents with worsening baseline tremor in the setting of running out of her medications a day ago, ran out of her lorazepam and OxyContin. Patient is hemodynamically stable afebrile neurologically intact moving all extremities; baseline tremor extinguishable with activity. No focal weakness no signs of trauma. No signs of active withdrawal however tremor likely exacerbated by lack of access to her benzodiazepine. Will dose medications here in department. At this time given history and physical no labs have been ordered nor imaging. Patient will follow-up with her primary care physician. I will prescribe a short course of each of these medications for home as to prevent her from going into acute withdrawal. HPI General Date/Time Provider Initiated Documentation: 02/02/23 12:20. HPI Narrative: 72-year-old female presents with acute on chronic baseline tremor worse today in the setting of running out of her medications which include Ativan and OxyContin. No seizure activity, no fevers no chills no nausea no vomiting, no recent falls or injuries. Patient has home health aide that helps her with her acts of daily living. Related Data Home Medications Medication Instructions Recorded Confirmed omeprazole 40 mg capsule,delayed 40 mg PO DAILY 05/19/14 11/29/22 release polyethylene glycol 3350 17 17 g PO DAILY PRN PRN 05/19/14 11/29/22 gram/dose oral powder (Miralax) cholecalciferol (vitamin D3) 25 50 mcg PO DAILY 01/05/20 11/29/22 mcg (1,000 unit) tablet (Vitamin D3) lactulose 10 gram/15 mL oral 15 ml PO DAILY PRN PRN 01/05/20 11/29/22 solution naloxone 4 mg/actuation nasal 4 mg intranasal Q3M PRN 01/05/20 11/29/22 spray (Narcan) vitamin B complex 1 tab PO DAILY 01/05/20 11/29/22 sertraline 50 mg tablet 75 mg PO DAILY 10/19/20 11/29/22 trazodone 100 mg tablet 200 mg PO HS PRN PRN 01/03/21 11/29/22 aspirin 81 mg tablet,delayed 81 mg PO DAILY 06/23/21 11/29/22 release linaclotide 145 mcg capsule 145 mcg PO DAILY 06/23/21 11/29/22 (Linzess) meloxicam 15 mg tablet 15 mg PO DAILY 08/08/21 11/29/22 lorazepam 1 mg tablet (Ativan) 1 mg PO DAILY PRN #10 tabs 10/23/21 11/29/22 oxycodone 40 mg tablet,crush 40 tab PO BID 01/13/22 11/29/22 resistant,extended release 12 hr (OxyContin) amlodipine 10 mg tablet 10 mg PO DAILY 01/14/22 11/29/22 prochlorperazine maleate 5 mg 5 mg PO BID PRN PRN 01/14/22 11/29/22 tablet sennosides 8.6 mg tablet (senna) 8.6 mg PO QPM 01/14/22 11/29/22 folic acid 1 mg tablet 1 mg PO QAM #30 tabs 01/16/22 11/29/22 magnesium oxide 400 mg (241.3 mg 400 mg PO BID #30 tabs 01/16/22 11/29/22 magnesium) tablet metoclopramide HCl 5 mg tablet 5 mg PO TID 08/06/22 11/29/22 topiramate 25 mg tablet (Topamax) 25 mg PO DAILY 08/06/22 11/29/22 lorazepam 1 mg tablet 1 mg PO DAILY PRN #3 tabs 02/02/23 oxycodone 40 mg tablet,crush 40 mg PO BID #6 tabs 02/02/23 resistant,extended release 12 hr (OxyContin) Previous Rx's Medication Instructions Recorded lorazepam 1 mg tablet (Ativan) 1 mg PO DAILY PRN #10 tabs 10/23/21 folic acid 1 mg tablet 1 mg PO QAM #30 tabs 01/16/22 magnesium oxide 400 mg (241.3 mg 400 mg PO BID #30 tabs 01/16/22 magnesium) tablet lorazepam 1 mg tablet 1 mg PO DAILY PRN #3 tabs 02/02/23 oxycodone 40 mg tablet,crush 40 mg PO BID #6 tabs 02/02/23 resistant,extended release 12 hr (OxyContin) Allergies Allergy/AdvReac Type Severity Reaction Status Date / Time sulfamethoxazole Allergy Verified 02/02/23 12:25 [From Bactrim] trimethoprim [From Bactrim] Allergy Verified 02/02/23 12:25 morphine AdvReac Intermediate Psychosis Unverified 02/02/23 12:25 baclofen AdvReac Unknown Unverified 02/02/23 12:25 chlorthalidone AdvReac Unknown Unverified 02/02/23 12:25 codeine AdvReac Unknown Unverified 02/02/23 12:25 dextromethorphan AdvReac Unknown Unverified 02/02/23 12:25 gabapentin [From Neurontin] AdvReac Unknown Unverified 02/02/23 12:25 hydrochlorothiazide AdvReac Unknown Unverified 02/02/23 12:25 pregabalin AdvReac Unknown Dopey Unverified 02/02/23 12:25 General Stated Complaint: GenMedical LOLITA: 3 Review of Systems Narrative: Review of Systems Constitutional: negative Eyes: negative ENT: negative Cardiovascular: negative Respiratory: negative Gastrointestinal: negative : negative Musculoskeletal: negative Skin: negative Neurologic: Tremor Psych: negative PFSH All Active Problems (Updated 02/02/23 @ 13:46 by Kwame Oliva MD) Tremor (Acute) Bilateral sensorineural hearing loss (Acute) Impacted cerumen of both ears (Acute) Left rotator cuff tear arthropathy (Acute) Primary osteoarthritis, left shoulder (Acute) Hypomagnesemia (Acute) Recurrent UTI (urinary tract infection) (Acute) Tendonitis of left rotator cuff (Acute) Depression (Chronic) Goiter (Acute) Fibromyalgia (Chronic) KWAME (obstructive sleep apnea) (Chronic) Chronic pain (Chronic) Movement disorder (Acute) Muscle weakness (Acute) Left elbow contusion (Acute) Left displaced femoral neck fracture (Acute 09/16/20) Chronic renal insufficiency, stage III (moderate) (Acute) Anemia (Chronic) Chronic pain syndrome (Chronic) Hypertension (Chronic) Fracture of left hip (Acute) Osteoarthritis of right knee (Acute) Steroid injection: 04/05/2020 Has had previous viscosupplementation injections. Primary osteoarthritis of left knee (Chronic) We will see the patient back in 4-1/2 months for possible repeat Synvisc 1 in her left knee would consider x-ray in her right knee if she is still significantly symptomatic Medical History Chronic constipation Chronic insomnia IBS (irritable bowel syndrome) Recurrent UTI Urge incontinence Surgical History History of back surgery History of total left hip replacement (09/17/20) As treatment for a femoral neck fracture (DOI: 09/16/2020) Hx of cholecystectomy Social History Smoking/Tobacco Use Status: Never Smoking risk assessment performed?: Yes Alcohol Intake: never Drug use: Never Substance use type: does not use Do you feel safe at home: Yes Do you feel safe in your relationship?: Yes Additional Social history: Grew up in [place], still lives in family home in [facility], lives alone In [place], still lives with her family health in [facility]. Still lives in family all Exam Narrative Exam Narrative: Physical Examination General: alert, awake, cooperative, resting comfortably, no acute distress HEENT: normocephalic, atraumatic; PERRL, EOM intact, conjunctiva normal; no nasal discharge; moist mucous membranes, oral and pharyngeal mucosa normal, tolerating secretions Neck: supple, trachea midline; full ROM Chest: normal to inspection Respiratory: normal respiratory effort, speaking in full sentences, clear to auscultation, no wheezing, rales or rhonchi Cardiac: regular rate, regular rhythm, S1S2 intact, no murmurs rubs or gallops GI: abdomen soft, non-tender, non-distended; no palpable mass or hepatosplenomegaly Skin: no lesions, rashes or trauma appreciated Neuro: AAOx3, normal speech, moving all extremities; intermittent tremor involving face and upper extremities extinguishable with motion Psych: Appropriate mood and affect Course Vital Signs Vital signs: Vital Signs Temperature 36.6 C 02/02/23 12:20 Pulse 78 02/02/23 12:20 Respiratory Rate 18 02/02/23 12:20 Blood Pressure 180/96 H 02/02/23 12:20 Pulse Oximetry 95 02/02/23 12:20 Temperature 36.6 C 02/02/23 12:20 Temperature Source Skin 02/02/23 12:20 Pulse 78 02/02/23 12:20 Respiratory Rate 18 02/02/23 12:20 Blood Pressure 180/96 H 02/02/23 12:20 Blood Pressure Position Supine 02/02/23 12:20 Pulse Oximetry 95 02/02/23 12:20 Oxygen Delivery Method Room Air 02/02/23 12:20 Oxygen Flow Rate 0 02/02/23 12:20
[2023-02-02 17:12] VITALS: RESP 18
== END 2023-02-02 14:04 | disposition home or self-care (01) ==
PROVIDERS: Emergency Provider Emergency Medicine; PCP Family Medicine
DX: R25.1 Tremor, unspecified (principal); Z76.0 Encounter for issue of repeat prescription
CPT/HCPCS: 99283; 99284

== ENCOUNTER 2023-03-07 16:34 | Outpatient (REF) | payer MEDICARE, MEDICAID, SELFPAY | END 2023-03-07 16:35 | disposition home or self-care (01) | LOC: NCHCN 16:34 | PROVIDERS: PCP Family Medicine; Visit Provider Family Medicine | DX: N39.0 Urinary tract infection, site not specified (principal) | CPT/HCPCS: 87077; 87086; 87186 ==

== ENCOUNTER 2023-03-13 12:05 | Emergency (ER) | payer MEDICARE, MEDICAID, SELFPAY ==
[2023-03-13 12:13] VITALS: BP 148/82; PULSE 78; RESP 18; TEMP 37; O2SAT 98
--- NOTE | 2023-03-13 14:15 | RT.EKG_ITS ---
APPROVED REPORT Exam: Resting ECG Reason for Exam: weakness, fatigue Patient Location: E HR:71 bpm ECG Measurements Heart Rate 71 AXIS [place] 186 P 60 QRSd 86 QRS 34 QT 394 T 39 QTc 420 Conclusion Sinus rhythm...normal P axis, V-rate 60- 99 Atrial premature complex...SV complex w/ short R-R interval
[2023-03-13 14:41] LABS: Abs Immature Grans 0.04 10^3/uL (0.0-0.06); Absolute Basophil Count 0.03 10^3/uL (0.0-0.2); Absolute Eosinophil Count 0.05 10^3/uL (0.0-0.7); Absolute Monocyte Count 0.75 10^3/uL (0.1-0.8); Absolute Neutrophil Count 7.04 10^3/uL (1.2-6.7); Basophils % 0.3; Eosinophils % 0.6; HCT 29.3 % (36.0-46.0); HGB 9.5 g/dL (11.2-15.7); Immature Grans % 0.5; Lymphocytes % 9.2; MCH 27.2 pg (27.0-33.0); MCHC 32.4 % (32.0-36.0); MCV 84 fL (80-95); MPV 9.4 fL (8.0-11.0); Monocytes % 8.6; Neutrophils % 80.8; Platelet Count 268 10^3/uL (130-400); RBC 3.49 10^6/uL (3.93-5.22); RDW 15.6 % (11.7-14.6); RDW-SD 47.6 fL; WBC 8.71 10^3/uL (4.4-10.8)
[2023-03-13 14:55] LABS: Bilirubin Negative (Negative); Blood Negative (Negative); Clarity Clear (Clear); Glucose Negative (Negative); Ketones Trace mg/dL (Negative); Leukocyte Esterase Negative (Negative); Nitrite Negative (Negative); Specific Gravity 1.025 (1.005-1.025); Urobilinogen 0.2 mg/dL (Up to 0.2); pH 5.5 (5-8)
[2023-03-13 15:02] LABS: ALT 11 U/L (14-59); AST 11 U/L (15-37); Albumin 3.4 g/dL (3.4-5.0); Alkaline Phosphatase 73 U/L (46-116); Anion Gap 8.4 mmol/L (3-11); BUN 26 mg/dL (7-18); Bilirubin, Total 0.4 mg/dL (0.2-1.0); CO2 27.6 mmol/L (21.0-32.0); CREATININE 1.3 mg/dL (0.55-1.02); Calcium 9.5 mg/dL (8.5-10.1); Chloride 106 mmol/L (98-107); Estimated GFR 43.15 (mL/min/1.73m2); Glucose 114 mg/dL (74-106); Potassium 3.5 mmol/L (3.5-5.1); Sodium 142 mmol/L (136-145); Total Protein 7.7 g/dL (6.4-8.2); Troponin I < 50 ng/L (<or=60)
[2023-03-13 15:04] LABS: Bacteria Rare HPF (Negative); Crystals Negative HPF (Negative); Epithelial Cells Negative HPF (Negative); Other Cells Negative (Negative); RBC Negative HPF (0-2); WBC 0-2 HPF (0-5)
[2023-03-13 15:08] LABS: C & S Indicated? No; Casts Negative LPF (Negative); Mucus Moderate (Negative)
[2023-03-13 15:10] LABS: COVID-19 PCR Negative (Negative); Influenza A PCR Negative (Negative); Influenza B PCR Negative (Negative); RSV PCR Negative (Negative)
--- NOTE | 2023-03-13 15:11 | W.ED.GENAD ---
Discharge Plan Disposition Condition: Stable Discharge Details Chief Complaint: GenMedical Primary Care Provider: Marixa Kurtz ED Provider: Trenton Bell [place]ak Meds and New Rx's Prescriptions: No Action sertraline 50 mg tablet 75 mg PO DAILY trazodone 100 mg tablet 200 mg PO HS PRN PRN meloxicam 15 mg tablet 15 mg PO DAILY aspirin 81 mg tablet,delayed release (DR/EC) 81 mg PO DAILY Linzess 145 mcg capsule 145 mcg PO DAILY Patient Comments: Not on pt's updated med list 03/13/23 topiramate [Topamax] 25 mg tablet 25 mg PO DAILY metoclopramide HCl 5 mg tablet 5 mg PO TID Patient Comments: Not on pt's updated med list 03/13/23 Rx Instructions: administer 30 minutes before meals omeprazole 40 MG capsule,delayed release(DR/EC) 40 mg PO DAILY polyethylene glycol 3350 [Miralax] 119 GM powder 17 g PO DAILY PRN PRN Patient Comments: Not on pt's updated med list 03/13/23 vitamin B complex Tablet 1 tab PO DAILY lactulose 10 gram/15 mL solution 15 ml PO DAILY PRN PRN Patient Comments: TAKE 15ML BY MOUTH DAILY FOR CONSTIPATION. Not on pt's updated med list 03/13/23 cholecalciferol (vitamin D3) [Vitamin D3] 25 mcg (1,000 unit) Tablet 50 mcg PO DAILY Patient Comments: Not on pt's updated med list 03/13/23 naloxone [Narcan] 4 mg/actuation [place],Non-Aerosol 4 mg INTRANASAL Q3M PRN Patient Comments: Not on pt's updated med list 03/13/23 oxycodone [OxyContin] 40 mg tablet,oral only,ext.rel.12 hr 40 mg PO BID Qty: 6 0RF lorazepam 1 mg tablet 1 mg PO DAILY PRNQty: 3 0RF cephalexin 500 mg capsule 500 mg PO TID Patient Comments: TAKE ONE CAPSULE BY MOUTH THREE TIMES A DAY FOR 10 DAYS lorazepam [Ativan] 1 mg tablet 1 mg PO DAILY PRNQty: 10 0RF oxycodone [OxyContin] 40 mg tablet,oral only,ext.rel.12 hr 40 tab PO BID Patient Comments: TAKE ONE TABLET BY MOUTH TWICE A DAY sennosides [senna] 8.6 mg tablet 8.6 mg PO QPM amlodipine 10 mg tablet 10 mg PO DAILY prochlorperazine maleate 5 mg tablet 5 mg PO BID PRN PRN Patient Comments: TAKE 1 TABLET BY MOUTH 2 TIMES DAILY NEEDED folic acid 1 mg Tablet 1 mg PO QAM Qty: 30 0RF Patient Comments: Not on pt's updated med list ML 03/13/23 magnesium oxide 400 mg (241.3 mg magnesium) Tablet 400 mg PO BID Qty: 30 0RF Patient Comments: Not on pt's updated med list ML 03/13/23 Medical Decision Making 72-year-old female with multiple medical problems including history of fibromyalgia, obstructive sleep apnea, chronic kidney disease, hypertension, arthritis, recurrent urinary tract infections, here with generalized weakness today. Patient is currently being treated for urinary tract infection with Keflex. Patient is hemodynamically stable. Saturating well in no respiratory distress with clear lung sounds. No signs of focal bacterial infection on exam. Screening EKG was reviewed and interpreted by me: Please report, sinus rhythm 71 bpm, nondiagnostic. Screening labs reviewed and noted to chronic anemia unchanged. Patient does have slight increase of creatinine and increased BUN. Suspect AROLDO mild and prerenal secondary to hypovolemia. Plan for oral rehydration and I will give 250mL IV fluid bolus. Considered persistent urinary tract infection. Urinalysis reviewed and not consistent with UTI at this time. I reviewed urine culture from 03/10/2023 which revealed pansensitive E. coli. Plan will be to continue Keflex to complete full course. Plan to reassess after rehydration. Lab Data Lab results reviewed: Yes I reviewed the patient's lab results. Labs: Laboratory Tests Range/Units 03/13/23 03/13/23 03/13/23 14:30 14:31 14:31 WBC (4.4-10.8) 10^3/uL 8.71 RBC (3.93-5.22) 10^6/uL 3.49 L Hgb (11.2-15.7) g/dL 9.5 L Hct (36.0-46.0) % 29.3 L MCV (80-95) fL 84 MCH (27.0-33.0) pg 27.2 MCHC (32.0-36.0) % 32.4 RDW (11.7-14.6) % 15.6 H Plt Count (130-400) 10^3/uL 268 MPV (8.0-11.0) fL 9.4 Immature Gran % 0.5 Neutrophils % 80.8 Lymphocytes % 9.2 Monocytes % 8.6 Eosinophils % 0.6 Basophils % 0.3 Nucleated RBC % (0.0-0.3) % 0.0 Absolute Neutrophils (1.2-6.7) 10^3/uL 7.04 H Absolute Lymphocytes (1.2-3.4) 10^3/uL 0.80 L Absolute Monocytes (0.1-0.8) 10^3/uL 0.75 Absolute Eosinophils (0.0-0.7) 10^3/uL 0.05 Absolute Basophils (0.0-0.2) 10^3/uL 0.03 Sodium (136-145) mmol/L 142 Potassium (3.5-5.1) mmol/L 3.5 Chloride (98-107) mmol/L 106 Carbon Dioxide (21.0-32.0) mmol/L 27.6 Anion Gap (3-11) mmol/L 8.4 BUN (7-18) mg/dL 26 H Creatinine (0.55-1.02) mg/dL 1.3 H Est GFR (CKD-EPI 2020) (mL/min/1.73m2) 43.15 Glucose (74-106) mg/dL 114 H Calcium (8.5-10.1) mg/dL 9.5 Magnesium (1.8-2.4) mg/dL 2.0 Total Bilirubin (0.2-1.0) mg/dL 0.4 AST (15-37) U/L 11 L ALT (14-59) U/L 11 L Alkaline Phosphatase (46-116) U/L 73 Troponin I (<or=60) ng/L < 50 Total Protein (6.4-8.2) g/dL 7.7 Albumin (3.4-5.0) g/dL 3.4 Urine Color (Yellow) Urine Clarity (Clear) Urine pH (5-8) Ur Specific [place] (1.005-1.025) Urine Protein (Negative) mg/dL Urine Ketones (Negative) mg/dL Urine Blood (Negative) Urine Nitrite (Negative) Urine Bilirubin (Negative) Urine Urobilinogen (Up to 0.2) mg/dL Ur Leukocyte Esterase (Negative) Urine RBC (0-2) HPF Urine WBC (0-5) HPF Ur Epithelial Cells (Negative) HPF Urine Crystals (Negative) HPF Urine Bacteria (Negative) HPF Urine Casts (Negative) LPF Urine Mucus (Negative) Urine Other (Negative) Ur Culture Indicated? Urine Glucose (Negative) mg/dL COVID-19 Source Nasopharynx SARS-CoV-2 (PCR) (Negative) Negative Influenza Type A (PCR) (Negative) Negative Influenza Type B (PCR) (Negative) Negative RSV (PCR) (Negative) Negative Range/Units 03/13/23 14:48 WBC (4.4-10.8) 10^3/uL RBC (3.93-5.22) 10^6/uL Hgb (11.2-15.7) g/dL Hct (36.0-46.0) % MCV (80-95) fL MCH (27.0-33.0) pg MCHC (32.0-36.0) % RDW (11.7-14.6) % Plt Count (130-400) 10^3/uL MPV (8.0-11.0) fL Immature Gran % Neutrophils % Lymphocytes % Monocytes % Eosinophils % Basophils % Nucleated RBC % (0.0-0.3) % Absolute Neutrophils (1.2-6.7) 10^3/uL Absolute Lymphocytes (1.2-3.4) 10^3/uL Absolute Monocytes (0.1-0.8) 10^3/uL Absolute Eosinophils (0.0-0.7) 10^3/uL Absolute Basophils (0.0-0.2) 10^3/uL Sodium (136-145) mmol/L Potassium (3.5-5.1) mmol/L Chloride (98-107) mmol/L Carbon Dioxide (21.0-32.0) mmol/L Anion Gap (3-11) mmol/L BUN (7-18) mg/dL Creatinine (0.55-1.02) mg/dL Est GFR (CKD-EPI 2020) (mL/min/1.73m2) Glucose (74-106) mg/dL Calcium (8.5-10.1) mg/dL Magnesium (1.8-2.4) mg/dL Total Bilirubin (0.2-1.0) mg/dL AST (15-37) U/L ALT (14-59) U/L Alkaline Phosphatase (46-116) U/L Troponin I (<or=60) ng/L Total Protein (6.4-8.2) g/dL Albumin (3.4-5.0) g/dL Urine Color (Yellow) Yellow Urine Clarity (Clear) Clear Urine pH (5-8) 5.5 Ur Specific [place] (1.005-1.025) 1.025 Urine Protein (Negative) mg/dL 30 H Urine Ketones (Negative) mg/dL Trace H Urine Blood (Negative) Negative Urine Nitrite (Negative) Negative Urine Bilirubin (Negative) Negative Urine Urobilinogen (Up to 0.2) mg/dL 0.2 Ur Leukocyte Esterase (Negative) Negative Urine RBC (0-2) HPF Negative Urine WBC (0-5) HPF 0-2 Ur Epithelial Cells (Negative) HPF Negative Urine Crystals (Negative) HPF Negative Urine Bacteria (Negative) HPF Rare Urine Casts (Negative) LPF Negative Urine Mucus (Negative) Moderate Urine Other (Negative) Negative Ur Culture Indicated? No Urine Glucose (Negative) mg/dL Negative COVID-19 Source SARS-CoV-2 (PCR) (Negative) Influenza Type A (PCR) (Negative) Influenza Type B (PCR) (Negative) RSV (PCR) (Negative) HPI General Mode of arrival: ambulatory. Date/Time Provider Initiated Documentation: 03/13/23 13:54. Limitations to Documentation: no limitations. Information obtained by: patient and family. HPI Narrative: 72-year-old female with history of multiple medical problems, recently diagnosed with urinary tract infection, currently on Keflex, here with chief complaint of generalized weakness. Patient had trouble getting up today. Patient notes she is fatigued and feels tired today. Related Data Home Medications Medication Instructions Recorded Confirmed omeprazole 40 mg capsule,delayed 40 mg PO DAILY 05/19/14 03/13/23 release polyethylene glycol 3350 17 17 g PO DAILY PRN PRN 05/19/14 11/29/22 gram/dose oral powder (Miralax) cholecalciferol (vitamin D3) 25 50 mcg PO DAILY 01/05/20 11/29/22 mcg (1,000 unit) tablet (Vitamin D3) lactulose 10 gram/15 mL oral 15 ml PO DAILY PRN PRN 01/05/20 11/29/22 solution naloxone 4 mg/actuation nasal 4 mg intranasal Q3M PRN 01/05/20 11/29/22 spray (Narcan) vitamin B complex 1 tab PO DAILY 01/05/20 03/13/23 sertraline 50 mg tablet 75 mg PO DAILY 10/19/20 03/13/23 trazodone 100 mg tablet 200 mg PO HS PRN PRN 01/03/21 03/13/23 aspirin 81 mg tablet,delayed 81 mg PO DAILY 06/23/21 03/13/23 release linaclotide 145 mcg capsule 145 mcg PO DAILY 06/23/21 11/29/22 (Linzess) meloxicam 15 mg tablet 15 mg PO DAILY 08/08/21 03/13/23 lorazepam 1 mg tablet (Ativan) 1 mg PO DAILY PRN #10 tabs 10/23/21 03/13/23 oxycodone 40 mg tablet,crush 40 tab PO BID 01/13/22 03/13/23 resistant,extended release 12 hr (OxyContin) amlodipine 10 mg tablet 10 mg PO DAILY 01/14/22 03/13/23 prochlorperazine maleate 5 mg 5 mg PO BID PRN PRN 01/14/22 03/13/23 tablet sennosides 8.6 mg tablet (senna) 8.6 mg PO QPM 01/14/22 03/13/23 folic acid 1 mg tablet 1 mg PO QAM #30 tabs 01/16/22 11/29/22 magnesium oxide 400 mg (241.3 mg 400 mg PO BID #30 tabs 01/16/22 11/29/22 magnesium) tablet metoclopramide HCl 5 mg tablet 5 mg PO TID 08/06/22 11/29/22 topiramate 25 mg tablet (Topamax) 25 mg PO DAILY 08/06/22 03/13/23 lorazepam 1 mg tablet 1 mg PO DAILY PRN #3 tabs 02/02/23 03/13/23 oxycodone 40 mg tablet,crush 40 mg PO BID #6 tabs 02/02/23 03/13/23 resistant,extended release 12 hr (OxyContin) cephalexin 500 mg capsule 500 mg PO TID 03/13/23 03/13/23 Previous Rx's Medication Instructions Recorded lorazepam 1 mg tablet (Ativan) 1 mg PO DAILY PRN #10 tabs 10/23/21 folic acid 1 mg tablet 1 mg PO QAM #30 tabs 01/16/22 magnesium oxide 400 mg (241.3 mg 400 mg PO BID #30 tabs 01/16/22 magnesium) tablet lorazepam 1 mg tablet 1 mg PO DAILY PRN #3 tabs 02/02/23 oxycodone 40 mg tablet,crush 40 mg PO BID #6 tabs 02/02/23 resistant,extended release 12 hr (OxyContin) Allergies Allergy/AdvReac Type Severity Reaction Status Date / Time sulfamethoxazole Allergy Verified 03/13/23 15:01 [From Bactrim] trimethoprim [From Bactrim] Allergy Verified 03/13/23 15:01 morphine AdvReac Intermediate Psychosis Unverified 03/13/23 15:01 baclofen AdvReac Unknown Unverified 03/13/23 15:01 chlorthalidone AdvReac Unknown Unverified 03/13/23 15:01 codeine AdvReac Unknown Unverified 03/13/23 15:01 dextromethorphan AdvReac Unknown Unverified 03/13/23 15:01 gabapentin [From Neurontin] AdvReac Unknown Unverified 03/13/23 15:01 hydrochlorothiazide AdvReac Unknown Unverified 03/13/23 15:01 pregabalin AdvReac Unknown Dopey Unverified 03/13/23 15:01 General Stated Complaint: GenMedical LOLITA: 3 Review of Systems Constitutional Constitutional: Reports as per HPI and Denies fever(s) Cardiovascular Cardiovascular: Denies chest pain PFSH All Active Problems Bilateral sensorineural hearing loss (Acute) Impacted cerumen of both ears (Acute) Left rotator cuff tear arthropathy (Acute) Primary osteoarthritis, left shoulder (Acute) Hypomagnesemia (Acute) Recurrent UTI (urinary tract infection) (Acute) Tendonitis of left rotator cuff (Acute) Depression (Chronic) Goiter (Acute) Fibromyalgia (Chronic) KWAME (obstructive sleep apnea) (Chronic) Chronic pain (Chronic) Movement disorder (Acute) Muscle weakness (Acute) Left elbow contusion (Acute) Left displaced femoral neck fracture (Acute 09/16/20) Chronic renal insufficiency, stage III (moderate) (Acute) Anemia (Chronic) Chronic pain syndrome (Chronic) Hypertension (Chronic) Fracture of left hip (Acute) Osteoarthritis of right knee (Acute) Steroid injection: 04/05/2020 Has had previous viscosupplementation injections. Primary osteoarthritis of left knee (Chronic) We will see the patient back in 4-1/2 months for possible repeat Synvisc 1 in her left knee would consider x-ray in her right knee if she is still significantly symptomatic Medical History Chronic constipation Chronic insomnia IBS (irritable bowel syndrome) Recurrent UTI Urge incontinence Surgical History History of back surgery History of total left hip replacement (09/17/20) As treatment for a femoral neck fracture (DOI: 09/16/2020) Hx of cholecystectomy Social History Smoking/Tobacco Use Status: Never Smoking risk assessment performed?: Yes Alcohol Intake: never Drug use: Never Substance use type: does not use Do you feel safe at home: Yes Do you feel safe in your relationship?: Yes Additional Social history: Grew up in [place], still lives in family home in [facility], lives alone In [place], still lives with her family health in [facility]. Still lives in family all Exam Const General: cooperative and no acute distress HENFL Head: normocephalic and atraumatic Mouth: moist mucous membranes Eyes Conjunctivae: normal conjunctivae Sclera: normal sclerae Neck Neck: trachea midline and supple Resp Auscultation: clear to auscultation bilaterally, no rales, no rhonchi and no wheezes Cardio Rate: regular rate and not tachycardic Rhythm: regular rhythm GI Palpation: soft, not firm, no guarding, no masses, not rigid and nontender Skin General skin exam: no rashes or lesions noted Neuro General: patient alert, patient awake, patient oriented x3 and tone normal Speech: other (Somewhat hesitant with speech, daughter notes chronic) Motor: other (4/5 strength thoughout) Sensory Exam: no sensory deficits noted Extrem General: no edema Psych Appearance: grossly normal Affect: blunted Course Vital Signs Vital signs: Vital Signs Temperature 37 C 03/13/23 12:13 Pulse 78 03/13/23 12:13 Respiratory Rate 18 03/13/23 12:13 Blood Pressure 148/82 H 03/13/23 12:13 Pulse Oximetry 98 03/13/23 12:13 Temperature 37 C 03/13/23 12:13 Temperature Source Oral 03/13/23 12:13 Pulse 78 03/13/23 12:13 Respiratory Rate 18 03/13/23 12:13 Respiratory Effort Normal, Non-Labored 03/13/23 14:33 Respiratory Depth Normal 03/13/23 14:33 Blood Pressure 148/82 H 03/13/23 12:13 Blood Pressure Position Sitting 03/13/23 12:13 Pulse Oximetry 98 03/13/23 12:13 Oxygen Delivery Method Room Air 03/13/23 12:13 Oxygen Flow Rate 0 03/13/23 12:13 Pain Level 0 03/13/23 12:13 Lab/Test Results Lab/Test Results: Laboratory Tests Range/Units 03/13/23 03/13/23 03/13/23 14:31 14:31 14:48 WBC (4.4-10.8) 10^3/uL 8.71 RBC (3.93-5.22) 10^6/uL 3.49 L Hgb (11.2-15.7) g/dL 9.5 L Hct (36.0-46.0) % 29.3 L MCV (80-95) fL 84 MCH (27.0-33.0) pg 27.2 MCHC (32.0-36.0) % 32.4 RDW (11.7-14.6) % 15.6 H Plt Count (130-400) 10^3/uL 268 MPV (8.0-11.0) fL 9.4 Immature Gran % 0.5 Neutrophils % 80.8 Lymphocytes % 9.2 Monocytes % 8.6 Eosinophils % 0.6 Basophils % 0.3 Nucleated RBC % (0.0-0.3) % 0.0 Absolute Neutrophils (1.2-6.7) 10^3/uL 7.04 H Absolute Lymphocytes (1.2-3.4) 10^3/uL 0.80 L Absolute Monocytes (0.1-0.8) 10^3/uL 0.75 Absolute Eosinophils (0.0-0.7) 10^3/uL 0.05 Absolute Basophils (0.0-0.2) 10^3/uL 0.03 Sodium (136-145) mmol/L 142 Potassium (3.5-5.1) mmol/L 3.5 Chloride (98-107) mmol/L 106 Carbon Dioxide (21.0-32.0) mmol/L 27.6 Anion Gap (3-11) mmol/L 8.4 BUN (7-18) mg/dL 26 H Creatinine (0.55-1.02) mg/dL 1.3 H Est GFR (CKD-EPI 2020) (mL/min/1.73m2) 43.15 Glucose (74-106) mg/dL 114 H Calcium (8.5-10.1) mg/dL 9.5 Magnesium (1.8-2.4) mg/dL 2.0 Total Bilirubin (0.2-1.0) mg/dL 0.4 AST (15-37) U/L 11 L ALT (14-59) U/L 11 L Alkaline Phosphatase (46-116) U/L 73 Troponin I (<or=60) ng/L < 50 Total Protein (6.4-8.2) g/dL 7.7 Albumin (3.4-5.0) g/dL 3.4 Urine Color (Yellow) Yellow Urine Clarity (Clear) Clear Urine pH (5-8) 5.5 Ur Specific [place] (1.005-1.025) 1.025 Urine Protein (Negative) mg/dL 30 H Urine Ketones (Negative) mg/dL Trace H Urine Blood (Negative) Negative Urine Nitrite (Negative) Negative Urine Bilirubin (Negative) Negative Urine Urobilinogen (Up to 0.2) mg/dL 0.2 Ur Leukocyte Esterase (Negative) Negative Urine RBC (0-2) HPF Negative Urine WBC (0-5) HPF 0-2 Ur Epithelial Cells (Negative) HPF Negative Urine Crystals (Negative) HPF Negative Urine Bacteria (Negative) HPF Rare Urine Casts (Negative) LPF Negative Urine Mucus (Negative) Moderate Urine Other (Negative) Negative Ur Culture Indicated? No Urine Glucose (Negative) mg/dL Negative
[2023-03-13 15:25] LABS: Source Nasopharynx
[2023-03-13] MEDS: Lactated Ringers 250 ML 1000 ML IV (16:21)
--- NOTE | 2023-03-13 16:34 | W.EDPROG ---
Date of service: 03/13/23 Time of Service: 16:35 Medical Decision Making Care assumed from provider (Dr. Trenton Bell) Please see their initial HPI, PE, and documentation. Discussed patient details and case and pending workup and disposition. Patient is hemodynamically stable, and alert and oriented. At the time of signout awaiting physical therapy eval. In short patient is a 72-year-old female with history of generalized weakness unable to sit up on her own. She was recently treated for recurrent urinary tract infection. Awaiting IV NS 250 cc bolus as well. Unfortunately PT is no longer in house and is unavailable for evaluation at this time. OK'd patient to take her own Cephalexin medications and OK to eat. 1809: Discussed plan of care with patient and daughter, will road test patient, she states she feels the same as when she arrived, she did eat some food which is the first time in days the patient has eaten, Dr. Bell did fill out a home health eval for PT for patient. director staffing to road test pateint, will order a walker if needed for patient. Patient able to walk with walker to the door and back to bed with minimal assistance. The daughter will stay with patient tonight. Home health order placed by Dr. Bell. This text was generated using [employer] dictation system, please disregard any oddities of phrase or misspellings. Medical Records Medical records reviewed: Yes I reviewed the patient's medical records. Lab Data Lab results reviewed: Yes I reviewed the patient's lab results. Labs: Laboratory Tests Range/Units 03/13/23 03/13/23 03/13/23 14:30 14:31 14:31 WBC (4.4-10.8) 10^3/uL 8.71 RBC (3.93-5.22) 10^6/uL 3.49 L Hgb (11.2-15.7) g/dL 9.5 L Hct (36.0-46.0) % 29.3 L MCV (80-95) fL 84 MCH (27.0-33.0) pg 27.2 MCHC (32.0-36.0) % 32.4 RDW (11.7-14.6) % 15.6 H Plt Count (130-400) 10^3/uL 268 MPV (8.0-11.0) fL 9.4 Immature Gran % 0.5 Neutrophils % 80.8 Lymphocytes % 9.2 Monocytes % 8.6 Eosinophils % 0.6 Basophils % 0.3 Nucleated RBC % (0.0-0.3) % 0.0 Absolute Neutrophils (1.2-6.7) 10^3/uL 7.04 H Absolute Lymphocytes (1.2-3.4) 10^3/uL 0.80 L Absolute Monocytes (0.1-0.8) 10^3/uL 0.75 Absolute Eosinophils (0.0-0.7) 10^3/uL 0.05 Absolute Basophils (0.0-0.2) 10^3/uL 0.03 Sodium (136-145) mmol/L 142 Potassium (3.5-5.1) mmol/L 3.5 Chloride (98-107) mmol/L 106 Carbon Dioxide (21.0-32.0) mmol/L 27.6 Anion Gap (3-11) mmol/L 8.4 BUN (7-18) mg/dL 26 H Creatinine (0.55-1.02) mg/dL 1.3 H Est GFR (CKD-EPI 2020) (mL/min/1.73m2) 43.15 Glucose (74-106) mg/dL 114 H Calcium (8.5-10.1) mg/dL 9.5 Magnesium (1.8-2.4) mg/dL 2.0 Total Bilirubin (0.2-1.0) mg/dL 0.4 AST (15-37) U/L 11 L ALT (14-59) U/L 11 L Alkaline Phosphatase (46-116) U/L 73 Troponin I (<or=60) ng/L < 50 Total Protein (6.4-8.2) g/dL 7.7 Albumin (3.4-5.0) g/dL 3.4 Urine Color (Yellow) Urine Clarity (Clear) Urine pH (5-8) Ur Specific [place] (1.005-1.025) Urine Protein (Negative) mg/dL Urine Ketones (Negative) mg/dL Urine Blood (Negative) Urine Nitrite (Negative) Urine Bilirubin (Negative) Urine Urobilinogen (Up to 0.2) mg/dL Ur Leukocyte Esterase (Negative) Urine RBC (0-2) HPF Urine WBC (0-5) HPF Ur Epithelial Cells (Negative) HPF Urine Crystals (Negative) HPF Urine Bacteria (Negative) HPF Urine Casts (Negative) LPF Urine Mucus (Negative) Urine Other (Negative) Ur Culture Indicated? Urine Glucose (Negative) mg/dL COVID-19 Source Nasopharynx SARS-CoV-2 (PCR) (Negative) Negative Influenza Type A (PCR) (Negative) Negative Influenza Type B (PCR) (Negative) Negative RSV (PCR) (Negative) Negative Range/Units 03/13/23 14:48 WBC (4.4-10.8) 10^3/uL RBC (3.93-5.22) 10^6/uL Hgb (11.2-15.7) g/dL Hct (36.0-46.0) % MCV (80-95) fL MCH (27.0-33.0) pg MCHC (32.0-36.0) % RDW (11.7-14.6) % Plt Count (130-400) 10^3/uL MPV (8.0-11.0) fL Immature Gran % Neutrophils % Lymphocytes % Monocytes % Eosinophils % Basophils % Nucleated RBC % (0.0-0.3) % Absolute Neutrophils (1.2-6.7) 10^3/uL Absolute Lymphocytes (1.2-3.4) 10^3/uL Absolute Monocytes (0.1-0.8) 10^3/uL Absolute Eosinophils (0.0-0.7) 10^3/uL Absolute Basophils (0.0-0.2) 10^3/uL Sodium (136-145) mmol/L Potassium (3.5-5.1) mmol/L Chloride (98-107) mmol/L Carbon Dioxide (21.0-32.0) mmol/L Anion Gap (3-11) mmol/L BUN (7-18) mg/dL Creatinine (0.55-1.02) mg/dL Est GFR (CKD-EPI 2020) (mL/min/1.73m2) Glucose (74-106) mg/dL Calcium (8.5-10.1) mg/dL Magnesium (1.8-2.4) mg/dL Total Bilirubin (0.2-1.0) mg/dL AST (15-37) U/L ALT (14-59) U/L Alkaline Phosphatase (46-116) U/L Troponin I (<or=60) ng/L Total Protein (6.4-8.2) g/dL Albumin (3.4-5.0) g/dL Urine Color (Yellow) Yellow Urine Clarity (Clear) Clear Urine pH (5-8) 5.5 Ur Specific [place] (1.005-1.025) 1.025 Urine Protein (Negative) mg/dL 30 H Urine Ketones (Negative) mg/dL Trace H Urine Blood (Negative) Negative Urine Nitrite (Negative) Negative Urine Bilirubin (Negative) Negative Urine Urobilinogen (Up to 0.2) mg/dL 0.2 Ur Leukocyte Esterase (Negative) Negative Urine RBC (0-2) HPF Negative Urine WBC (0-5) HPF 0-2 Ur Epithelial Cells (Negative) HPF Negative Urine Crystals (Negative) HPF Negative Urine Bacteria (Negative) HPF Rare Urine Casts (Negative) LPF Negative Urine Mucus (Negative) Moderate Urine Other (Negative) Negative Ur Culture Indicated? No Urine Glucose (Negative) mg/dL Negative COVID-19 Source SARS-CoV-2 (PCR) (Negative) Influenza Type A (PCR) (Negative) Influenza Type B (PCR) (Negative) RSV (PCR) (Negative) Sign Out Sign Out Data: Sign Out Comment: Signout plan: Reassess patient post IV and p.o. fluid rehydration. Ensure stable amatory function. Determine disposition. Last updated by Trenton Bell MD at 03/13/23 16:20 Discharge Plan Disposition Patient Disposition: Home Condition: Stable Discharge Details Clinical Impression: Generalized weakness, Fatigue, Acute dehydration Primary Care Provider: Marixa Kurtz ED Provider: Bela Goel Home Meds and New Rx's Prescriptions: Continued sertraline 50 mg tablet 75 mg PO DAILY trazodone 100 mg tablet 200 mg PO HS PRN PRN meloxicam 15 mg tablet 15 mg PO DAILY aspirin 81 mg tablet,delayed release (DR/EC) 81 mg PO DAILY Linzess 145 mcg capsule 145 mcg PO DAILY Patient Comments: Not on pt's updated med list ML 03/13/23 topiramate [Topamax] 25 mg tablet 25 mg PO DAILY metoclopramide HCl 5 mg tablet 5 mg PO TID Patient Comments: Not on pt's updated med list ML 03/13/23 Rx Instructions: administer 30 minutes before meals omeprazole 40 MG capsule,delayed release(DR/EC) 40 mg PO DAILY polyethylene glycol 3350 [Miralax] 119 GM powder 17 g PO DAILY PRN PRN Patient Comments: Not on pt's updated med list 03/13/23 vitamin B complex Tablet 1 tab PO DAILY lactulose 10 gram/15 mL solution 15 ml PO DAILY PRN PRN Patient Comments: TAKE 15ML BY MOUTH DAILY FOR CONSTIPATION. Not on pt's updated med list 03/13/23 cholecalciferol (vitamin D3) [Vitamin D3] 25 mcg (1,000 unit) Tablet 50 mcg PO DAILY Patient Comments: Not on pt's updated med list 03/13/23 naloxone [Narcan] 4 mg/actuation Angela,Non-Aerosol 4 mg INTRANASAL Q3M PRN Patient Comments: Not on pt's updated med list 03/13/23 oxycodone [OxyContin] 40 mg tablet,oral only,ext.rel.12 hr 40 mg PO BID Qty: 6 0RF lorazepam 1 mg tablet 1 mg PO DAILY PRNQty: 3 0RF cephalexin 500 mg capsule 500 mg PO TID Patient Comments: TAKE ONE CAPSULE BY MOUTH THREE TIMES A DAY FOR 10 DAYS lorazepam [Ativan] 1 mg tablet 1 mg PO DAILY PRNQty: 10 0RF oxycodone [OxyContin] 40 mg tablet,oral only,ext.rel.12 hr 40 tab PO BID Patient Comments: TAKE ONE TABLET BY MOUTH TWICE A DAY sennosides [senna] 8.6 mg tablet 8.6 mg PO QPM amlodipine 10 mg tablet 10 mg PO DAILY prochlorperazine maleate 5 mg tablet 5 mg PO BID PRN PRN Patient Comments: TAKE 1 TABLET BY MOUTH 2 TIMES DAILY NEEDED folic acid 1 mg Tablet 1 mg PO QAM Qty: 30 0RF Patient Comments: Not on pt's updated med list 03/13/23 magnesium oxide 400 mg (241.3 mg magnesium) Tablet 400 mg PO BID Qty: 30 0RF Patient Comments: Not on pt's updated med list 03/13/23 Discharge Instructions Instructions: Dehydration (ED), Fall Prevention for Older Adults (ED), Weakness (ED) Additional Instructions: Continue to take your antibiotic as prescribed. Be sure to stay hydrated. Drink plenty of clear fluids. Please contact your primary care physician to arrange follow-up. Return to the ER immediately for any worsening or new concerning symptoms. A Home health order for physical therapy was placed. Referrals: Marixa Kurtz [Primary Care Provider] -
--- NOTE | 2023-03-13 18:25 | NUR.NOTE ---
Nursing Note: Pt ambulated with walker to room 11 doorway and back to bed without incident; RN present for standby assist.
== END 2023-03-13 19:08 | disposition home or self-care (01) ==
PROVIDERS: Student in an Organized Health Care Education/Training Program; Emergency Provider Registered Nurse Emergency; PCP Family Medicine
DX: R53.1 Weakness (principal); N39.0 Urinary tract infection, site not specified; I49.1 Atrial premature depolarization; I12.9 Hypertensive chronic kidney disease with stage 1 through stage 4 chronic kidney disease, or unspecified chronic kidney disease; N18.9 Chronic kidney disease, unspecified; I10 Essential (primary) hypertension; D64.9 Anemia, unspecified; Z79.82 Long term (current) use of aspirin; Z20.822 Contact with and (suspected) exposure to COVID-19
CPT/HCPCS: 36415; 80053; 87637; 93005; 99283; 81003; 81015; 83735; 84484; 85025; 93010

== ENCOUNTER 2023-03-15 09:44 | Inpatient (IN) | payer MEDICARE, MEDICAID, SELFPAY ==
[2023-03-15] VITALS (13 sets, daily range): BP systolic 111–171; BP diastolic 61–96; PULSE 69–97; RESP 12–21; TEMP 36.8–37.4; O2SAT 95–99
--- NOTE | 2023-03-15 09:30 | DI.CT_ITS ---
Exam(s) CT HEAD WO EXAM: CT HEAD WO CLINICAL HISTORY: episode of unresponsiveness. TECHNIQUE: Imaging Protocol: Axial computed tomography images with coronal and sagittal reformatted images were created and reviewed COMPARISON: CT HEAD WITHOUT STROKE PROTOCOL from 12/28/2017 FINDINGS: There are no skull fractures. There is no fluid in the visualized paranasal sinuses. There is no evidence of intracranial hemorrhage, mass effect, or shift of midline structures. There are no extra-axial fluid collections. The ventricles are not enlarged or shifted and there is no blo od within the ventricular system nor within the basal cisterns. There is a prominent bilateral periventricular hypodensity and multiple small lacunar infarcts in the periventricular white matter which have increased from the previous study. In addition, there is no w a new large area of encephalomalacia in the right occipital lobe consistent with ischemic infarct. This measures approximately 4.5 by 2.8 by 3 cm. Nonhemorrhagic. IMPRESSION: Prominent right occipital lobe nonhemorrhagic infarct which was not evident on the 2018 CT scan. Multiple bilateral lacunar infarcts in the periventricular white matter noted which have increased fr om 2018. No evidence of intracranial hemorrhage. No shift. RADIATION DOSE DELIVERED: 681.86mGy.cm Total DLP DATA REPOSITORY: All CT scans at this facility are submitted to the National Radiology Data Registry (NRDR) Dose Index Registry (DIR) with the [employer] ([employer]). RADIATION OPTIMIZATION: All CT scans at this facility use at least one of these dose optimization te chniques: automated exposure control; mA and/or kV adjustment per patient size (includes targeted exa ms where dose is matched to clinical indication); or iterative reconstruction.
[2023-03-15 10:03] LABS: Lactate 1.3 mmol/L (0.6-1.4)
--- NOTE | 2023-03-15 10:05 | NUR.NOTE ---
Nursing Note: This Rn assumed care of pt at 10:05. Pt not on unit when this RN assumed care. Vital signs and meds to be completed when pt returns to unit.
[2023-03-15 10:07] LABS: Abs Immature Grans 0.08 10^3/uL (0.0-0.06); Absolute Basophil Count 0.02 10^3/uL (0.0-0.2); Absolute Eosinophil Count 0.03 10^3/uL (0.0-0.7); Absolute Monocyte Count 0.73 10^3/uL (0.1-0.8); Absolute Neutrophil Count 10.21 10^3/uL (1.2-6.7); Basophils % 0.2; Eosinophils % 0.3; HCT 29.5 % (36.0-46.0); HGB 9.5 g/dL (11.2-15.7); Immature Grans % 0.7; Lymphocytes % 4.3; MCH 27.2 pg (27.0-33.0); MCHC 32.2 % (32.0-36.0); MCV 85 fL (80-95); Monocytes % 6.3; Neutrophils % 88.2; Platelet Count 276 10^3/uL (130-400); RBC 3.49 10^6/uL (3.93-5.22); RDW 15.8 % (11.7-14.6); RDW-SD 49.1 fL; WBC 11.58 10^3/uL (4.4-10.8)
--- NOTE | 2023-03-15 10:15 | DI.RAD_ITS ---
Exam(s) XR CHEST 1V IN DI DEPT EXAM: XR CHEST 1V IN DI DEPT CLINICAL HISTORY: sepsis. TECHNIQUE: 2D digital imaging was performed. COMPARISON: CR,XR XR RIBS RT W PA LAT CHEST from 02/26/2022 FINDINGS: Single AP portable view. Heart size is upper normal. The mediastinum is not widened. There is infiltrate in the left upper lobe suprahilar region. Lower left lung field appears clear. Right lung is clear. There are no pleural effusions. IMPRESSION: Left upper lobe infiltrate. DATA REPOSITORY: RADIATION DOSE DELIVERED:
--- NOTE | 2023-03-15 10:15 | ED.GENADUL_ITS ---
Discharge Plan Disposition Patient Disposition: Admit to [facility] Discharge Details Chief Complaint: GenMedical Clinical Impression: Respiratory failure, acute, Pneumonia, CVA (cerebral vascular accident) Primary Care Provider: Marixa Kurtz ED Provider: Ruchi Estrada [place] Meds and New Rx's Prescriptions: No Action sertraline 50 mg tablet 75 mg PO DAILY trazodone 100 mg tablet 200 mg PO HS PRN PRN meloxicam 15 mg tablet 15 mg PO DAILY aspirin 81 mg tablet,delayed release (DR/EC) 81 mg PO DAILY Linzess 145 mcg capsule 145 mcg PO DAILY Patient Comments: Not on pt's updated med list 03/13/23 topiramate [Topamax] 25 mg tablet 25 mg PO DAILY metoclopramide HCl 5 mg tablet 5 mg PO TID Patient Comments: Not on pt's updated med list 03/13/23 Rx Instructions: administer 30 minutes before meals omeprazole 40 MG capsule,delayed release(DR/EC) 40 mg PO DAILY polyethylene glycol 3350 [Miralax] 119 GM powder 17 g PO DAILY PRN PRN Patient Comments: Not on pt's updated med list 03/13/23 vitamin B complex Tablet 1 tab PO DAILY lactulose 10 gram/15 mL solution 15 ml PO DAILY PRN PRN Patient Comments: TAKE 15ML BY MOUTH DAILY FOR CONSTIPATION. Not on pt's updated med list 03/13/23 cholecalciferol (vitamin D3) [Vitamin D3] 25 mcg (1,000 unit) Tablet 50 mcg PO DAILY Patient Comments: Not on pt's updated med list 03/13/23 naloxone [Narcan] 4 mg/actuation [place],Non-Aerosol 4 mg INTRANASAL Q3M PRN Patient Comments: Not on pt's updated med list 03/13/23 oxycodone [OxyContin] 40 mg tablet,oral only,ext.rel.12 hr 40 mg PO BID Qty: 6 0RF lorazepam 1 mg tablet 1 mg PO DAILY PRNQty: 3 0RF cephalexin 500 mg capsule 500 mg PO TID Patient Comments: TAKE ONE CAPSULE BY MOUTH THREE TIMES A DAY FOR 10 DAYS lorazepam [Ativan] 1 mg tablet 1 mg PO DAILY PRNQty: 10 0RF oxycodone [OxyContin] 40 mg tablet,oral only,ext.rel.12 hr 40 tab PO BID Patient Comments: TAKE ONE TABLET BY MOUTH TWICE A DAY sennosides [senna] 8.6 mg tablet 8.6 mg PO QPM amlodipine 10 mg tablet 10 mg PO DAILY prochlorperazine maleate 5 mg tablet 5 mg PO BID PRN PRN Patient Comments: TAKE 1 TABLET BY MOUTH 2 TIMES DAILY NEEDED folic acid 1 mg Tablet 1 mg PO QAM Qty: 30 0RF Patient Comments: Not on pt's updated med list 03/13/23 magnesium oxide 400 mg (241.3 mg magnesium) Tablet 400 mg PO BID Qty: 30 0RF Patient Comments: Not on pt's updated med list ML 03/13/23 Medical Decision Making 72yo F with HTN, KWAME, CKD, presenting for fever, cough, and decreased mobility for the past 2- 3 days; daughter unable to wake her up for about 90 minutes this morning and so she called EMS. History from patient, daughter, and EMS. Hypoxic to 86% for EMS (no hx of COPD or CHF, not on oxygen at home); improved to 94% on 2L NC for EMS, had normal blood glucose. Satting 95% on 2LNC; afebrile here, borderline tachycardia to 90's. Diminished breath sounds left chest. Non-focal neurologic exam. Alert and GCS 15 here. Not overtly septic on arrival however given age, reportedly febrile at home and tachcyardia here with suspected pneumonia, will treat presumptively for sepsis with at least 1L IVFB and broad spectrum antibiotics pending results of workup. Given report of diminished responsiveness, head CT ordered and independently reviewed; no acute intracranial hemorrhage on my view, discussed with radiologist and agree with radiology read below of occipital infarct of unclear chronicity, new since 2018. History and exam do not suggest this is acute, would certainly not treat with lytics at this point today. CXR independently reviewed, JAZMYN pneumonia, agree with radiology read below. Labs reviewed as below, CBC with mild leukocytosis, anemia with Hg at baseline on [facility] record review. CMP reassuring. CRP elevated, lactic and procalcitonin normal. Blood cultures sent, UA ordered. Given acute hypoxic respiratory failure and pneumonia, warrants admission. Discussed with hospitalist chemical radiation technician and accepted to medicine service for further workup and management. Awaiting transfer to the floor. Imaging Data Radiologic Study: Imaging: CT Scan Radiologist's impression: IMPRESSION: Prominent right occipital lobe nonhemorrhagic infarct which was not evident on the 2018 CT scan. Multiple bilateral lacunar infarcts in the periventricular white matter noted which have increased from 2018. No evidence of intracranial hemorrhage.? No shift. Radiologic Study #2: Imaging: X-Ray Radiologist's impression: IMPRESSION: Left upper lobe infiltrate Lab Data Lab results reviewed: Yes I reviewed the patient's lab results. Labs: 03/15/23 10:30 Blood Blood Culture - Pending 03/15/23 10:20 Blood Blood Culture - Pending Laboratory Tests Range/Units 03/15/23 03/15/23 03/15/23 09:40 09:40 09:40 WBC (4.4-10.8) 10^3/uL 11.58 H RBC (3.93-5.22) 10^6/uL 3.49 L Hgb (11.2-15.7) g/dL 9.5 L Hct (36.0-46.0) % 29.5 L MCV (80-95) fL 85 MCH (27.0-33.0) pg 27.2 MCHC (32.0-36.0) % 32.2 RDW (11.7-14.6) % 15.8 H Plt Count (130-400) 10^3/uL 276 MPV (8.0-11.0) fL 10.0 Immature Gran % 0.7 Neutrophils % 88.2 Lymphocytes % 4.3 Monocytes % 6.3 Eosinophils % 0.3 Basophils % 0.2 Nucleated RBC % (0.0-0.3) % 0.0 Absolute Neutrophils (1.2-6.7) 10^3/uL 10.21 H Absolute Lymphocytes (1.2-3.4) 10^3/uL 0.50 L Absolute Monocytes (0.1-0.8) 10^3/uL 0.73 Absolute Eosinophils (0.0-0.7) 10^3/uL 0.03 Absolute Basophils (0.0-0.2) 10^3/uL 0.02 VBG Lactate (0.6-1.4) mmol/L 1.3 Sodium (136-145) mmol/L 142 Potassium (3.5-5.1) mmol/L 3.6 Chloride (98-107) mmol/L 106 Carbon Dioxide (21.0-32.0) mmol/L 26.1 Anion Gap (3-11) mmol/L 9.9 BUN (7-18) mg/dL 24 H Creatinine (0.55-1.02) mg/dL 1.2 H Est GFR (CKD-EPI 2020) (mL/min/1.73m2) 47.50 Glucose (74-106) mg/dL 151 H Calcium (8.5-10.1) mg/dL 9.2 Total Bilirubin (0.2-1.0) mg/dL 0.2 AST (15-37) U/L 15 ALT (14-59) U/L 14 Alkaline Phosphatase (46-116) U/L 66 C-Reactive Protein (0.0-0.3) mg/dL 4.28 H Total Protein (6.4-8.2) g/dL 7.3 Albumin (3.4-5.0) g/dL 3.0 L Procalcitonin ng/mL Range/Units 03/15/23 03/15/23 03/15/23 09:40 12:45 15:45 WBC (4.4-10.8) 10^3/uL RBC (3.93-5.22) 10^6/uL Hgb (11.2-15.7) g/dL Hct (36.0-46.0) % MCV (80-95) fL MCH (27.0-33.0) pg MCHC (32.0-36.0) % RDW (11.7-14.6) % Plt Count (130-400) 10^3/uL MPV (8.0-11.0) fL Immature Gran % Neutrophils % Lymphocytes % Monocytes % Eosinophils % Basophils % Nucleated RBC % (0.0-0.3) % Absolute Neutrophils (1.2-6.7) 10^3/uL Absolute Lymphocytes (1.2-3.4) 10^3/uL Absolute Monocytes (0.1-0.8) 10^3/uL Absolute Eosinophils (0.0-0.7) 10^3/uL Absolute Basophils (0.0-0.2) 10^3/uL VBG Lactate (0.6-1.4) mmol/L Cancelled Cancelled Sodium (136-145) mmol/L Potassium (3.5-5.1) mmol/L Chloride (98-107) mmol/L Carbon Dioxide (21.0-32.0) mmol/L Anion Gap (3-11) mmol/L BUN (7-18) mg/dL Creatinine (0.55-1.02) mg/dL Est GFR (CKD-EPI 2020) (mL/min/1.73m2) Glucose (74-106) mg/dL Calcium (8.5-10.1) mg/dL Total Bilirubin (0.2-1.0) mg/dL AST (15-37) U/L ALT (14-59) U/L Alkaline Phosphatase (46-116) U/L C-Reactive Protein (0.0-0.3) mg/dL Total Protein (6.4-8.2) g/dL Albumin (3.4-5.0) g/dL Procalcitonin ng/mL < 0.1 HPI General Mode of arrival: EMS . Date/Time Provider Initiated Documentation: 03/15/23 09:44 . Limitations to Documentation: no limitations . Information obtained by: patient, family and old records reviewed . HPI Narrative: 72yo F with HTN, KWAME, CKD, presenting for fever, cough, and decreased mobility for the past 2- 3 days. This morning her daughter reports being unable to wake her up for about 90 minutes and so she called EMS. Hypoxic to 86% for EMS (no hx of COPD or CHF, not on oxygen at home); improved to 94% on 2L NC for EMS. Patient reports feeling generally unwell and weak for the past week or two, much worse for the past two days. Intermittent non-productive cough for two days. No headaches, nausea, vomiting, diarrhea, abdominal pain, numbness, tingling, focal weakness, or other concerns. No recent sick contacts. Related Data Home Medications Medication Instructions Recorded Confirmed omeprazole 40 mg capsule,delayed 40 mg PO DAILY 05/19/14 03/13/23 release polyethylene glycol 3350 17 17 g PO DAILY PRN PRN 05/19/14 11/29/22 gram/dose oral powder (Miralax) cholecalciferol (vitamin D3) 25 50 mcg PO DAILY 01/05/20 11/29/22 mcg (1,000 unit) tablet (Vitamin D3) lactulose 10 gram/15 mL oral 15 ml PO DAILY PRN PRN 01/05/20 11/29/22 solution naloxone 4 mg/actuation nasal 4 mg intranasal Q3M PRN 01/05/20 11/29/22 spray (Narcan) vitamin B complex 1 tab PO DAILY 01/05/20 03/13/23 sertraline 50 mg tablet 75 mg PO DAILY 10/19/20 03/13/23 trazodone 100 mg tablet 200 mg PO HS PRN PRN 01/03/21 03/13/23 aspirin 81 mg tablet,delayed 81 mg PO DAILY 06/23/21 03/13/23 release linaclotide 145 mcg capsule 145 mcg PO DAILY 06/23/21 11/29/22 (Linzess) meloxicam 15 mg tablet 15 mg PO DAILY 08/08/21 03/13/23 lorazepam 1 mg tablet (Ativan) 1 mg PO DAILY PRN #10 tabs 10/23/21 03/13/23 oxycodone 40 mg tablet,crush 40 tab PO BID 01/13/22 03/13/23 resistant,extended release 12 hr (OxyContin) amlodipine 10 mg tablet 10 mg PO DAILY 01/14/22 03/13/23 prochlorperazine maleate 5 mg 5 mg PO BID PRN PRN 01/14/22 03/13/23 tablet sennosides 8.6 mg tablet (senna) 8.6 mg PO QPM 01/14/22 03/13/23 folic acid 1 mg tablet 1 mg PO QAM #30 tabs 01/16/22 11/29/22 magnesium oxide 400 mg (241.3 mg 400 mg PO BID #30 tabs 01/16/22 11/29/22 magnesium) tablet metoclopramide HCl 5 mg tablet 5 mg PO TID 08/06/22 11/29/22 topiramate 25 mg tablet (Topamax) 25 mg PO DAILY 08/06/22 03/13/23 lorazepam 1 mg tablet 1 mg PO DAILY PRN #3 tabs 02/02/23 03/13/23 oxycodone 40 mg tablet,crush 40 mg PO BID #6 tabs 02/02/23 03/13/23 resistant,extended release 12 hr (OxyContin) cephalexin 500 mg capsule 500 mg PO TID 03/13/23 03/13/23 Previous Rx's Medication Instructions Recorded lorazepam 1 mg tablet (Ativan) 1 mg PO DAILY PRN #10 tabs 10/23/21 folic acid 1 mg tablet 1 mg PO QAM #30 tabs 01/16/22 magnesium oxide 400 mg (241.3 mg 400 mg PO BID #30 tabs 01/16/22 magnesium) tablet lorazepam 1 mg tablet 1 mg PO DAILY PRN #3 tabs 02/02/23 oxycodone 40 mg tablet,crush 40 mg PO BID #6 tabs 02/02/23 resistant,extended release 12 hr (OxyContin) Allergies Allergy/AdvReac Type Severity Reaction Status Date / Time sulfamethoxazole Allergy Verified 03/15/23 09:47 [From Bactrim] trimethoprim [From Bactrim] Allergy Verified 03/15/23 09:47 morphine AdvReac Intermediate Psychosis Unverified 03/15/23 09:47 baclofen AdvReac Unknown Unverified 03/15/23 09:47 chlorthalidone AdvReac Unknown Unverified 03/15/23 09:47 codeine AdvReac Unknown Unverified 03/15/23 09:47 dextromethorphan AdvReac Unknown Unverified 03/15/23 09:47 gabapentin [From Neurontin] AdvReac Unknown Unverified 03/15/23 09:47 hydrochlorothiazide AdvReac Unknown Unverified 03/15/23 09:47 pregabalin AdvReac Unknown Dopey Unverified 03/15/23 09:47 General Stated Complaint: GenMedical LOLITA: 3 Review of Systems Narrative: see HPI PFSH All Active Problems (Updated 03/15/23 @ 12:29 by Ruchi Estrada MD) Generalized weakness (Acute) Fatigue (Acute) Acute dehydration (Acute) Respiratory failure, acute (Acute) Pneumonia (Acute) CVA (cerebral vascular accident) (Chronic) Bilateral sensorineural hearing loss (Acute) Impacted cerumen of both ears (Acute) Left rotator cuff tear arthropathy (Acute) Primary osteoarthritis, left shoulder (Acute) Hypomagnesemia (Acute) Recurrent UTI (urinary tract infection) (Acute) Tendonitis of left rotator cuff (Acute) Depression (Chronic) Goiter (Acute) Fibromyalgia (Chronic) KWAME (obstructive sleep apnea) (Chronic) Chronic pain (Chronic) Movement disorder (Acute) Muscle weakness (Acute) Left elbow contusion (Acute) Left displaced femoral neck fracture (Acute 09/16/20) Chronic renal insufficiency, stage III (moderate) (Acute) Anemia (Chronic) Chronic pain syndrome (Chronic) Hypertension (Chronic) Fracture of left hip (Acute) Osteoarthritis of right knee (Acute) Steroid injection: 04/05/2020 Has had previous viscosupplementation injections. Primary osteoarthritis of left knee (Chronic) We will see the patient back in 4-1/2 months for possible repeat Synvisc 1 in her left knee would consider x-ray in her right knee if she is still significantly symptomatic Medical History Chronic constipation Chronic insomnia IBS (irritable bowel syndrome) Recurrent UTI Urge incontinence Surgical History History of back surgery History of total left hip replacement (09/17/20) As treatment for a femoral neck fracture (DOI: 09/16/2020) Hx of cholecystectomy Social History Smoking/Tobacco Use Status: Never Smoking risk assessment performed?: Yes Alcohol Intake: never Drug use: Never Substance use type: does not use Do you feel safe at home: Yes Do you feel safe in your relationship?: Yes Additional Social history: Grew up in [place], still lives in family home in [facility], lives alone In [place], still lives with her family health in [facility]. Still lives in family all Exam Narrative Exam Narrative: General: Alert, well appearing, well nourished, in no acute distress. Head: Normocephalic, atraumatic Neck: Trachea midline, Neck supple. ENT: MMM. No oropharygeal lesions or exudate. Cardiac: Regular, no murmurs appreciated Resp: No respiratory distress. Diminished breath sounds on left. No crackles, wheeze, or rhonchi. Abd: Soft, non-distended, nontender : No suprapubic tenderness. Extremities: No deformities. Neuro: GCS 15. PERRL. EOMI. Fluent speech, no dysarthria. Normal sensation in V1, V2, and V3 segments bilaterally. No asymmetry, no nasolabial fold flattening. Hard of hearing. No uvular deviation. Midline tonuge protrusion. Motor- 4/5 strength symmetric bilateral upper and lower extremities Sensation- Intact to light touch and symmetric multiple dermatomes including upper and lower extremities Course Vital Signs Vital signs: Vital Signs Temperature 37.4 C 03/15/23 09:42 Pulse 97 H 03/15/23 09:42 Respiratory Rate 21 03/15/23 09:42 Blood Pressure 171/96 H 03/15/23 09:42 Pulse Oximetry 96 03/15/23 09:42 Temperature 37.4 C 03/15/23 09:42 Temperature Source Oral 03/15/23 09:42 Pulse 97 H 03/15/23 09:42 Respiratory Rate 21 03/15/23 09:42 Respiratory Effort Normal 03/15/23 09:49 Blood Pressure 171/96 H 03/15/23 09:42 Blood Pressure Position Supine 03/15/23 09:42 Pulse Oximetry 96 03/15/23 09:42 Oxygen Delivery Method Nasal Cannula 03/15/23 09:42 Oxygen Flow Rate 4 03/15/23 09:42 Lab/Test Results Lab/Test Results: 03/15/23 09:45 Blood Blood Culture - Pending 03/15/23 09:45 Blood Blood Culture - Pending Laboratory Tests Range/Units 03/15/23 03/15/23 09:40 09:40 WBC (4.4-10.8) 10^3/uL 11.58 H RBC (3.93-5.22) 10^6/uL 3.49 L Hgb (11.2-15.7) g/dL 9.5 L Hct (36.0-46.0) % 29.5 L MCV (80-95) fL 85 MCH (27.0-33.0) pg 27.2 MCHC (32.0-36.0) % 32.2 RDW (11.7-14.6) % 15.8 H Plt Count (130-400) 10^3/uL 276 MPV (8.0-11.0) fL 10.0 Immature Gran % 0.7 Neutrophils % 88.2 Lymphocytes % 4.3 Monocytes % 6.3 Eosinophils % 0.3 Basophils % 0.2 Nucleated RBC % (0.0-0.3) % 0.0 Absolute Neutrophils (1.2-6.7) 10^3/uL 10.21 H Absolute Lymphocytes (1.2-3.4) 10^3/uL 0.50 L Absolute Monocytes (0.1-0.8) 10^3/uL 0.73 Absolute Eosinophils (0.0-0.7) 10^3/uL 0.03 Absolute Basophils (0.0-0.2) 10^3/uL 0.02 VBG Lactate (0.6-1.4) mmol/L 1.3
[2023-03-15] MEDS: Normal Saline 1,000 ML 1000 ML IV (10:21)
[2023-03-15] MEDS: ACETAMINOPHEN 1,000 MG/100 ML BTL 400 MG IVPB (10:22)
[2023-03-15 10:25] LABS: ALT 14 U/L (14-59); AST 15 U/L (15-37); Alkaline Phosphatase 66 U/L (46-116); Anion Gap 9.9 mmol/L (3-11); BUN 24 mg/dL (7-18); Bilirubin, Total 0.2 mg/dL (0.2-1.0); C-Reactive Protein 4.28 mg/dL (0.0-0.3); CO2 26.1 mmol/L (21.0-32.0); CREATININE 1.2 mg/dL (0.55-1.02); Calcium 9.2 mg/dL (8.5-10.1); Chloride 106 mmol/L (98-107); Glucose 151 mg/dL (74-106); Potassium 3.6 mmol/L (3.5-5.1); Sodium 142 mmol/L (136-145); Total Protein 7.3 g/dL (6.4-8.2)
[2023-03-15] MEDS: PIPERACILLIN/TAZO 4.5 GM in Normal Saline 100 ML IVPB (10:38)
[2023-03-15 10:54] LABS: Procalcitonin < 0.1 ng/mL
[2023-03-15] MEDS: LINEZOLID 600 MG/300 ML BAG 300 MG IVPB (10:58)
[2023-03-15 12:25] LABS: COVID-19 PCR Negative (Negative); Influenza A PCR Negative (Negative); Influenza B PCR Negative (Negative); RSV PCR Negative (Negative)
[2023-03-15 12:45] LABS: Source Nasopharynx
[2023-03-15 15:42] LABS: MRSA PCR Negative (Negative)
[2023-03-15] MEDS: cefTRIAXone 2 GM/50 ML BAG IVPB (16:05)
[2023-03-15] MEDS: Enoxaparin 40 MG/0.4 ML SYR SC (16:06)
[2023-03-15 17:18] LABS: Bilirubin Negative (Negative); Blood Negative (Negative); Clarity Sl Cloudy (Clear); Glucose Negative (Negative); Ketones Negative (Negative); Leukocyte Esterase Negative (Negative); Nitrite Negative (Negative); Specific Gravity 1.025 (1.005-1.025); Urobilinogen 0.2 mg/dL (Up to 0.2); pH 5.5 (5-8)
--- NOTE | 2023-03-15 18:40 | W.PM.HP.N ---
Date of service: 03/15/23 Time of Service: 18:40 Assessment and Plan Assessment and plan (1) Generalized weakness: Status: Acute Assessment and plan: Secondary to PNA Period of lethargy; difficult to arouse at home. Now A&O x 3 CT head neg. (2) Pneumonia: Status: Acute Assessment and plan: JAZMYN infiltrate. Change antibiotic coverage to Rocephin 2g Q24 and doxycycline 100mg IV Q12H. IS Monitor WBC Afebrile. (3) KWAME (obstructive sleep apnea): Status: Chronic Assessment and plan: Pt has home CPAP. History of Present Illness History of Present Illness Chief Complaint: Fever, cough Narrative: This is a 72 yo female with a PMH of HTN, KWAME, CKD, chronic pain on opioids. She endorsed 2-3 days of fever, cough and decreased mobility / fatigue. Her daughter stated it took her 90 minutes to wake the patient on the morning of presentation so EMS called. EMS found her O2 saturation to be 86% on RA. Placed on 2L NC. She denied CP/palpitations. No sputum. Vital Signs Temperature ?37.4 C ?03/15/23 09:42 Pulse ?97 H ?03/15/23 09:42 Respiratory Rate ?21 ?03/15/23 09:42 Blood Pressure ?171/96 H ?03/15/23 09:42 Pulse Oximetry ?96 ?03/15/23 09:42 CXR showed a JAZMYN infiltrate. CT head w/ acute processes. WBC count 11.58. Hgb 9.5. Lactate 1.3. Procalcitonin normal. Zosyn administered in the ED. Review of Systems All systems reviewed & are unremarkable except as noted in HPI and below PFSH All Active Problems Generalized weakness (Acute) Fatigue (Acute) Acute dehydration (Acute) Respiratory failure, acute (Acute) Pneumonia (Acute) CVA (cerebral vascular accident) (Chronic) Bilateral sensorineural hearing loss (Acute) Impacted cerumen of both ears (Acute) Left rotator cuff tear arthropathy (Acute) Primary osteoarthritis, left shoulder (Acute) Hypomagnesemia (Acute) Recurrent UTI (urinary tract infection) (Acute) Tendonitis of left rotator cuff (Acute) Depression (Chronic) Goiter (Acute) Fibromyalgia (Chronic) KWAME (obstructive sleep apnea) (Chronic) Chronic pain (Chronic) Movement disorder (Acute) Muscle weakness (Acute) Left elbow contusion (Acute) Left displaced femoral neck fracture (Acute 09/16/20) Chronic renal insufficiency, stage III (moderate) (Acute) Anemia (Chronic) Chronic pain syndrome (Chronic) Hypertension (Chronic) Fracture of left hip (Acute) Osteoarthritis of right knee (Acute) Steroid injection: 04/05/2020 Has had previous viscosupplementation injections. Primary osteoarthritis of left knee (Chronic) We will see the patient back in 4-1/2 months for possible repeat Synvisc 1 in her left knee would consider x-ray in her right knee if she is still significantly symptomatic Medical History Chronic constipation Chronic insomnia IBS (irritable bowel syndrome) Recurrent UTI Urge incontinence Surgical History History of back surgery History of total left hip replacement (09/17/20) As treatment for a femoral neck fracture (DOI: 09/16/2020) Hx of cholecystectomy Social History Smoking/Tobacco Use Status: Never Smoking risk assessment performed?: Yes Alcohol Intake: never Drug use: Never Substance use type: does not use Housing: house Do you feel safe at home: Yes Do you feel safe in your relationship?: Yes Additional Social history: Grew up in [place], still lives in family home in [facility], lives alone In [place], still lives with her family health in [facility]. Still lives in family all Meds Allergies and Home Medications Allergies Allergy/AdvReac Type Severity Reaction Status Date / Time sulfamethoxazole Allergy Verified 03/15/23 09:47 [From Bactrim] trimethoprim [From Bactrim] Allergy Verified 03/15/23 09:47 morphine AdvReac Intermediate Psychosis Unverified 03/15/23 09:47 baclofen AdvReac Unknown Unverified 03/15/23 09:47 chlorthalidone AdvReac Unknown Unverified 03/15/23 09:47 codeine AdvReac Unknown Unverified 03/15/23 09:47 dextromethorphan AdvReac Unknown Unverified 03/15/23 09:47 gabapentin [From Neurontin] AdvReac Unknown Unverified 03/15/23 09:47 hydrochlorothiazide AdvReac Unknown Unverified 03/15/23 09:47 pregabalin AdvReac Unknown Dopey Unverified 03/15/23 09:47 Home Medications Medication Instructions Recorded Confirmed Type omeprazole 40 mg capsule,delayed 40 mg PO DAILY 05/19/14 03/15/23 History release polyethylene glycol 3350 17 17 g PO DAILY PRN PRN 05/19/14 03/15/23 History gram/dose oral powder (Miralax) cholecalciferol (vitamin D3) 25 50 mcg PO DAILY 01/05/20 03/15/23 History mcg (1,000 unit) tablet (Vitamin D3) lactulose 10 gram/15 mL oral 15 ml PO DAILY PRN PRN 01/05/20 03/15/23 History solution naloxone 4 mg/actuation nasal 4 mg intranasal Q3M PRN 01/05/20 03/15/23 History spray (Narcan) vitamin B complex 1 tab PO DAILY 01/05/20 03/15/23 History sertraline 50 mg tablet 75 mg PO DAILY 10/19/20 03/15/23 History trazodone 100 mg tablet 200 mg PO HS PRN PRN 01/03/21 03/15/23 History aspirin 81 mg tablet,delayed 81 mg PO DAILY 06/23/21 03/15/23 History release linaclotide 145 mcg capsule 145 mcg PO DAILY 06/23/21 03/15/23 History (Linzess) meloxicam 15 mg tablet 15 mg PO DAILY 08/08/21 03/15/23 History lorazepam 1 mg tablet (Ativan) 1 mg PO DAILY PRN #10 tabs 10/23/21 03/15/23 Rx oxycodone 40 mg tablet,crush 40 tab PO BID 01/13/22 03/15/23 History resistant,extended release 12 hr (OxyContin) amlodipine 10 mg tablet 10 mg PO DAILY 01/14/22 03/15/23 History prochlorperazine maleate 5 mg 5 mg PO BID PRN PRN 01/14/22 03/15/23 History tablet sennosides 8.6 mg tablet (senna) 8.6 mg PO QPM 01/14/22 03/15/23 History folic acid 1 mg tablet 1 mg PO QAM #30 tabs 01/16/22 03/15/23 Rx magnesium oxide 400 mg (241.3 mg 400 mg PO BID #30 tabs 01/16/22 03/15/23 Rx magnesium) tablet metoclopramide HCl 5 mg tablet 5 mg PO TID 08/06/22 03/15/23 History topiramate 25 mg tablet (Topamax) 25 mg PO DAILY 08/06/22 03/15/23 History lorazepam 1 mg tablet 1 mg PO DAILY PRN #3 tabs 02/02/23 03/15/23 Rx oxycodone 40 mg tablet,crush 40 mg PO BID #6 tabs 02/02/23 03/15/23 Rx resistant,extended release 12 hr (OxyContin) cephalexin 500 mg capsule 500 mg PO TID 03/13/23 03/15/23 History Exam Narrative Exam Narrative: General: Alert, NAD. States she tried to talk her son into taking her home. Neck: No JVD. FROM ENT: MMM. Sclera clear. Cardiac: RRR, S1S2 Resp: No respiratory distress. Diminished breath sounds on left. No crackles, wheeze, or rhonchi. Abd: Soft, non-distended, nontender Extremities: No deformities. No edema. Neuro: GARIBAY. Speech clear. Results Labs 03/16/23 05:46 03/16/23 05:46 Labs: Laboratory Results - last 24 hr 03/15/23 03/15/23 03/15/23 09:40 09:40 09:40 WBC 11.58 H RBC 3.49 L Hgb 9.5 L Hct 29.5 L MCV 85 MCH 27.2 MCHC 32.2 RDW 15.8 H Plt Count 276 MPV 10.0 Immature Gran % 0.7 Neutrophils % 88.2 Lymphocytes % 4.3 Monocytes % 6.3 Eosinophils % 0.3 Basophils % 0.2 Nucleated RBC % 0.0 Absolute Neutrophils 10.21 H Absolute Lymphocytes 0.50 L Absolute Monocytes 0.73 Absolute Eosinophils 0.03 Absolute Basophils 0.02 VBG Lactate 1.3 Sodium 142 Potassium 3.6 Chloride 106 Carbon Dioxide 26.1 Anion Gap 9.9 BUN 24 H Creatinine 1.2 H Est GFR (CKD-EPI 2020) 47.50 Glucose 151 H Calcium 9.2 Total Bilirubin 0.2 AST 15 ALT 14 Alkaline Phosphatase 66 C-Reactive Protein 4.28 H Total Protein 7.3 Albumin 3.0 L Procalcitonin Urine Color Urine Clarity Urine pH Ur Specific [place] Urine Protein Urine Ketones Urine Blood Urine Nitrite Urine Bilirubin Urine Urobilinogen Ur Leukocyte Esterase Urine Glucose COVID-19 Source SARS-CoV-2 (PCR) Influenza Type A (PCR) Influenza Type B (PCR) RSV (PCR) MRSA (TEM-PCR) 03/15/23 03/15/23 03/15/23 09:40 11:20 12:45 WBC RBC Hgb Hct MCV MCH MCHC RDW Plt Count MPV Immature Gran % Neutrophils % Lymphocytes % Monocytes % Eosinophils % Basophils % Nucleated RBC % Absolute Neutrophils Absolute Lymphocytes Absolute Monocytes Absolute Eosinophils Absolute Basophils VBG Lactate Cancelled Sodium Potassium Chloride Carbon Dioxide Anion Gap BUN Creatinine Est GFR (CKD-EPI 2020) Glucose Calcium Total Bilirubin AST ALT Alkaline Phosphatase C-Reactive Protein Total Protein Albumin Procalcitonin < 0.1 Urine Color Urine Clarity Urine pH Ur Specific [place] Urine Protein Urine Ketones Urine Blood Urine Nitrite Urine Bilirubin Urine Urobilinogen Ur Leukocyte Esterase Urine Glucose COVID-19 Source Nasopharynx SARS-CoV-2 (PCR) Negative Influenza Type A (PCR) Negative Influenza Type B (PCR) Negative RSV (PCR) Negative MRSA (TEM-PCR) 03/15/23 03/15/23 03/15/23 13:21 15:45 16:35 WBC RBC Hgb Hct MCV MCH MCHC RDW Plt Count MPV Immature Gran % Neutrophils % Lymphocytes % Monocytes % Eosinophils % Basophils % Nucleated RBC % Absolute Neutrophils Absolute Lymphocytes Absolute Monocytes Absolute Eosinophils Absolute Basophils VBG Lactate Cancelled Sodium Potassium Chloride Carbon Dioxide Anion Gap BUN Creatinine Est GFR (CKD-EPI 2020) Glucose Calcium Total Bilirubin AST ALT Alkaline Phosphatase C-Reactive Protein Total Protein Albumin Procalcitonin Urine Color Yellow Urine Clarity Sl Cloudy Urine pH 5.5 Ur Specific Whit[place] 1.025 Urine Protein Negative Urine Ketones Negative Urine Blood Negative Urine Nitrite Negative Urine Bilirubin Negative Urine Urobilinogen 0.2 Ur Leukocyte Esterase Negative Urine Glucose Negative COVID-19 Source SARS-CoV-2 (PCR) Influenza Type A (PCR) Influenza Type B (PCR) RSV (PCR) MRSA (TEM-PCR) Negative Last Vital Signs Temp 36.8 C 03/15/23 14:24 Pulse 79 03/15/23 14:24 Resp 16 03/15/23 14:24 BP 122/73 03/15/23 14:24 Pulse Ox 96 03/15/23 14:24 Time Spent Time spent with Patient: 40-54 minutes Time was spent: preparing to see the patient(eg.review tests), obtaining and/or reviewing separately otained hiistory, ordering medications,tests, procedures, referring, communicating with other health primary care pediatrician, indepentently interpreting results, counseling the patient and care coordination
[2023-03-15] MEDS: Senna TAB 1 TAB PO (21:44)
[2023-03-15] MEDS: oxyCODONE-CR 20 MG TABCR 40 MG PO (21:44)
[2023-03-15] MEDS: Normal Saline Flush 10 ML SYR IVP (21:45)
[2023-03-15] MEDS: DOXYCYCLINE 100 MG in Normal Saline 100 ML IVPB (21:45)
[2023-03-16 00:13] VITALS: BP 167/77; PULSE 74; RESP 18; TEMP 37.1; O2SAT 96
[2023-03-16 06:39] LABS: Abs Immature Grans 0.03 10^3/uL (0.0-0.06); Absolute Basophil Count 0.04 10^3/uL (0.0-0.2); Absolute Eosinophil Count 0.12 10^3/uL (0.0-0.7); Absolute Lymphocyte Count 1.24 10^3/uL (1.2-3.4); Absolute Monocyte Count 0.62 10^3/uL (0.1-0.8); Absolute Neutrophil Count 5.67 10^3/uL (1.2-6.7); Basophils % 0.5; Eosinophils % 1.6; HCT 26.8 % (36.0-46.0); HGB 8.5 g/dL (11.2-15.7); Immature Grans % 0.4; Lymphocytes % 16.1; MCH 26.8 pg (27.0-33.0); MCHC 31.7 % (32.0-36.0); MCV 85 fL (80-95); Neutrophils % 73.4; Platelet Count 244 10^3/uL (130-400); RBC 3.17 10^6/uL (3.93-5.22); RDW 15.9 % (11.7-14.6); RDW-SD 49.2 fL; WBC 7.72 10^3/uL (4.4-10.8)
[2023-03-16 06:57] LABS: Anion Gap 8.1 mmol/L (3-11); BUN 21 mg/dL (7-18); CO2 25.9 mmol/L (21.0-32.0); CREATININE 1.1 mg/dL (0.55-1.02); Calcium 9.2 mg/dL (8.5-10.1); Chloride 107 mmol/L (98-107); Estimated GFR 52.73 (mL/min/1.73m2); Glucose 98 mg/dL (74-106); Potassium 3.7 mmol/L (3.5-5.1); Sodium 141 mmol/L (136-145)
[2023-03-16 07:21] VITALS: BP 167/91; PULSE 70; RESP 16; TEMP 36.1; O2SAT 98
[2023-03-16] MEDS: amLODIPine 10 MG TAB PO (08:03)
[2023-03-16] MEDS: oxyCODONE-CR 20 MG TABCR 40 MG PO (08:03)
[2023-03-16] MEDS: Folic Acid 1 MG TAB PO (08:03)
[2023-03-16] MEDS: Sertraline 50 MG TAB 75 MG PO (08:03)
[2023-03-16] MEDS: Meloxicam 15 MG TAB PO (08:03)
[2023-03-16] MEDS: Aspirin E.C. 81 MG TABEC PO (08:04)
[2023-03-16] MEDS: Omeprazole 20 MG CAPCR 40 MG PO (08:04)
[2023-03-16 08:15] VITALS: RESP 14
[2023-03-16] MEDS: DOXYCYCLINE 100 MG in Normal Saline 100 ML IVPB (09:05)
[2023-03-16] MEDS: Topiramate 25 MG TAB PO (09:05)
[2023-03-16] MEDS: Normal Saline Flush 10 ML SYR IVP (09:06)
--- NOTE | 2023-03-16 09:50 | PDOC.CMIN ---
Date of service: 03/16/23 Time of Service: 09:50 Care Management Initial Assmt Initial Assessment REASON FOR HOSPITALIZATION:: pneumonia, cva PREVIOUS FUNCTIONAL STATUS/SOCIAL/FAMILY SUPPORTS:: Tegan lives alone in [place]. Her son, Amor Corrigan, lives nearby and is supportive. Tegan also has a daughter, Renetta, who resides in [place], [place]. Tegan states she infrequently sees Renetta but does speak with her on the telephone. Tegan dresses herself and washes up at the sink. 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 ADVANCE DIRECTIVES:: On file. Daughter Renetta is [employer], son Amor alternate Has patient been provided with info about the portal/API?: Yes Did the patient sign up for the portal?: No CODE STATUS:: Full Code INSURANCE COVERAGE / FINANCIAL ISSUES:: Medicare Medicaid PRIMARY CARE PHYSICIAN:: Marixa Kurtz POTENTIAL DISCHARGE NEEDS:: follow up with PCP and plan of care PATIENT/FAMILY EDUCATION NEEDS:: Review of discharge instructions, limitations, activity, follow up plan, discuss Ask Me Three TRANSPORTATION:: via private vehicle with family PLAN:: Anticipate Tegan will be discharged home with a resumption of services through [facility]. She will follow up with her community providers and plan of care and transport with family. CM will continue to support Tegan and her discharge needs. PFSH All Active Problems (Updated 03/15/23 @ 12:29 by Ruchi Estrada MD) Generalized weakness (Acute) Fatigue (Acute) Acute dehydration (Acute) Respiratory failure, acute (Acute) Pneumonia (Acute) CVA (cerebral vascular accident) (Chronic) Bilateral sensorineural hearing loss (Acute) Impacted cerumen of both ears (Acute) Left rotator cuff tear arthropathy (Acute) Primary osteoarthritis, left shoulder (Acute) Hypomagnesemia (Acute) Recurrent UTI (urinary tract infection) (Acute) Tendonitis of left rotator cuff (Acute) Depression (Chronic) Goiter (Acute) Fibromyalgia (Chronic) KWAME (obstructive sleep apnea) (Chronic) Chronic pain (Chronic) Movement disorder (Acute) Muscle weakness (Acute) Left elbow contusion (Acute) Left displaced femoral neck fracture (Acute 09/16/20) Chronic renal insufficiency, stage III (moderate) (Acute) Anemia (Chronic) Chronic pain syndrome (Chronic) Hypertension (Chronic) Fracture of left hip (Acute) Osteoarthritis of right knee (Acute) Steroid injection: 04/05/2020 Has had previous viscosupplementation injections. Primary osteoarthritis of left knee (Chronic) We will see the patient back in 4-1/2 months for possible repeat Synvisc 1 in her left knee would consider x-ray in her right knee if she is still significantly symptomatic Medical History Chronic constipation Chronic insomnia IBS (irritable bowel syndrome) Recurrent UTI Urge incontinence Surgical History History of back surgery History of total left hip replacement (09/17/20) As treatment for a femoral neck fracture (DOI: 09/16/2020) Hx of cholecystectomy Social History Smoking/Tobacco Use Status: Never Smoking risk assessment performed?: Yes Alcohol Intake: never Drug use: Never Substance use type: does not use Housing: house Do you feel safe at home: Yes Do you feel safe in your relationship?: Yes Additional Social history: Grew up in [place], still lives in family home in [facility], lives alone In [place], still lives with her family health in [facility]. Still lives in family all
--- NOTE | 2023-03-16 10:44 | DSE_ITS ---
Date of service: 03/16/23 Time of Service: 10:44 DS: Diagnosis Discharge Diagnosis (1) Generalized weakness: Status: Acute Asessment and Plan: Secondary to PNA. Improved (2) Pneumonia: Status: Acute Asessment and Plan: WBC count normalized. Afebrile. Home of cefpodoxime 200mg BID for 7 days. (3) KWAME (obstructive sleep apnea): Status: Chronic Asessment and Plan: Cont home CPAP Discharge Plan Disposition Patient Disposition: Home Condition: Good Discharge Details Reason For Visit: Pneumonia Admit Date/Time: 03/15/23 11:41 Admit Provider: Kwame Schultz Attending Provider: Kwame Schultz Primary Care Provider: Marixa Kurtz [facility] Hospital Course: This is a 72 yo female with a PMH of HTN, KWAME, CKD, chronic pain on opioids.? She endorsed 2-3 days of fever, cough and decreased mobility / fatigue.? Her daughter stated it took her 90 minutes to wake the patient on the morning of presentation so EMS called.? EMS found her O2 saturation to be 86% on RA.? Placed on 2L NC. ? She denied CP/palpitations.? No sputum.? Vital Signs Temperature ?37.4 C ?03/15/23 09:42 Pulse ?97 H ?03/15/23 09:42 Respiratory Rate ?21 ?03/15/23 09:42 Blood Pressure ?171/96 H ?03/15/23 09:42 Pulse Oximetry ?96 ?03/15/23 09:42 CXR showed a JAZMYN infiltrate.? CT head w/ acute processes. WBC count 11.58.? Hgb 9.5.? Lactate 1.3. Procalcitonin normal. Zosyn administered in the ED. See Diagnosis PCP f/u in 1-2 weeks. Home Meds and New Rx's Prescriptions: New cefpodoxime 200 mg tablet 200 mg PO BID Qty: 14 0RF Rx Instructions: must administer with a meal/food Continued sertraline 50 mg tablet 75 mg PO DAILY trazodone 100 mg tablet 200 mg PO HS PRN PRN meloxicam 15 mg tablet 15 mg PO DAILY aspirin 81 mg tablet,delayed release (DR/EC) 81 mg PO DAILY topiramate [Topamax] 25 mg tablet 25 mg PO DAILY omeprazole 40 MG capsule,delayed release(DR/EC) 40 mg PO DAILY polyethylene glycol 3350 [Miralax] 119 GM powder 17 g PO DAILY PRN PRN Patient Comments: Not on pt's updated med list 03/13/23 vitamin B complex Tablet 1 tab PO DAILY cholecalciferol (vitamin D3) [Vitamin D3] 25 mcg (1,000 unit) Tablet 50 mcg PO DAILY Patient Comments: Not on pt's updated med list 03/13/23 oxycodone [OxyContin] 40 mg tablet,oral only,ext.rel.12 hr 40 mg PO BID Qty: 6 0RF lorazepam 1 mg tablet 1 mg PO DAILY PRNQty: 3 0RF lorazepam [Ativan] 1 mg tablet 1 mg PO DAILY PRNQty: 10 0RF oxycodone [OxyContin] 40 mg tablet,oral only,ext.rel.12 hr 40 tab PO BID Patient Comments: TAKE ONE TABLET BY MOUTH TWICE A DAY sennosides [senna] 8.6 mg tablet 8.6 mg PO QPM amlodipine 10 mg tablet 10 mg PO DAILY prochlorperazine maleate 5 mg tablet 5 mg PO BID PRN PRN Patient Comments: TAKE 1 TABLET BY MOUTH 2 TIMES DAILY NEEDED Discontinued Linzess 145 mcg capsule 145 mcg PO DAILY Patient Comments: Not on pt's updated med list 03/13/23 metoclopramide HCl 5 mg tablet 5 mg PO TID Patient Comments: Not on pt's updated med list 03/13/23 Rx Instructions: administer 30 minutes before meals lactulose 10 gram/15 mL solution 15 ml PO DAILY PRN PRN Patient Comments: TAKE 15ML BY MOUTH DAILY FOR CONSTIPATION. Not on pt's updated med list 03/13/23 naloxone [Narcan] 4 mg/actuation [place],Non-Aerosol 4 mg INTRANASAL Q3M PRN Patient Comments: Not on pt's updated med list 03/13/23 cephalexin 500 mg capsule 500 mg PO TID Patient Comments: TAKE ONE CAPSULE BY MOUTH THREE TIMES A DAY FOR 10 DAYS folic acid 1 mg Tablet 1 mg PO QAM Qty: 30 0RF Patient Comments: Not on pt's updated med list 03/13/23 magnesium oxide 400 mg (241.3 mg magnesium) Tablet 400 mg PO BID Qty: 30 0RF Patient Comments: Not on pt's updated med list ML 03/13/23 Discharge Instructions Activity:: Activity as Tolerated Equipment/Supplies:: No Equipment Needed Diet:: As Tolerated Discharge Orders Discharge Orders: Discharge Order (Routine); Ordered 03/16/23 Ordered By: Kwame Schultz DS: Summary Time Spent with Patient providing and/or coordinating discharge services: Greater than 30 minutes Status at Discharge Functional status at discharge: independent ambulation Overall status at discharge: patient is progressing back to baseline Mental Status: mental status grossly normal Speech and Movement: speech and movement normal Mood: congruent mood Affect: normal affect Exam Narrative Exam Narrative: General: Asleep. Arouses and is interactive. NAD Neck: No JVD. FROM ENT: MMM. Sclera clear. Cardiac: RRR, S1S2 Resp: No respiratory distress. Diminished breath sounds on left. No crackles, wheeze, or rhonchi. Abd: Soft, non-distended, nontender Extremities: No deformities. No edema. Neuro: GARIBAY. Speech clear. Psych Mental Status: mental status grossly normal Speech and Movement: speech and movement normal Mood: congruent mood Affect: normal affect DS: Data Vitals/I&O Vitals and I&O: Vital Signs Temperature 36.1 C L 03/16/23 07:21 Temperature Source Tympanic 03/16/23 07:21 Pulse 70 03/16/23 07:21 Pulse Rhythm Regular 03/16/23 07:20 Pulse 75 03/15/23 13:01 Respiratory Rate 16 03/16/23 07:21 Respiratory Effort Normal, Non-Labored 03/16/23 07:20 Respiratory Depth Normal 03/16/23 07:20 Respiratory Pattern Normal 03/16/23 07:20 Blood Pressure 167/91 H 03/16/23 07:21 Blood Pressure Mean 85 03/15/23 13:01 Blood Pressure Position Supine 03/15/23 09:42 Pulse Oximetry 98 03/16/23 07:21 Oxygen Delivery Method Bi-pap 03/16/23 07:21 Oxygen Flow Rate 0 03/15/23 14:24 Fraction of Inspired Oxygen (FIO2) 03/16/23 08:15 Pain Level 4 03/16/23 07:21 Comment home unit being used 03/16/23 00:13 Intake & Output 03/15/23 03/15/23 03/16/23 11:59 23:59 11:59 Intake Total 200 / 1560 1360 / 1560 100 / 100 Output Total 350 / 350 Balance 200 / 1210 1010 / 1210 100 / 100 Weight 63.4 kg 63.4 kg Intake: IV 200 / 1560 1360 / 1560 100 / 100 Output: Urine 350 / 350 Other: Urine Color Yellow Urine Appearance Clear Comment medium amount Voiding Methods Diaper Diaper Incontinent Incontinent Data Completed and Pending Labs on day of discharge: Labs from last 24 hours 03/16/23 03/16/23 03/15/23 05:46 05:46 16:35 WBC 7.72 RBC 3.17 L Hgb 8.5 L Hct 26.8 L MCV 85 MCH 26.8 L MCHC 31.7 L RDW 15.9 H Plt Count 244 MPV 10.0 Immature Gran % 0.4 Neutrophils % 73.4 Lymphocytes % 16.1 Monocytes % 8.0 Eosinophils % 1.6 Basophils % 0.5 Nucleated RBC % 0.0 Absolute Neutrophils 5.67 Absolute Lymphocytes 1.24 Absolute Monocytes 0.62 Absolute Eosinophils 0.12 Absolute Basophils 0.04 VBG Lactate Sodium 141 Potassium 3.7 Chloride 107 Carbon Dioxide 25.9 Anion Gap 8.1 BUN 21 H Creatinine 1.1 H Est GFR (CKD-EPI 2020) 52.73 Glucose 98 Calcium 9.2 Procalcitonin Urine Color Yellow Urine Clarity Sl Cloudy Urine pH 5.5 Ur Specific [place] 1.025 Urine Protein Negative Urine Ketones Negative Urine Blood Negative Urine Nitrite Negative Urine Bilirubin Negative Urine Urobilinogen 0.2 Ur Leukocyte Esterase Negative Urine Glucose Negative COVID-19 Source SARS-CoV-2 (PCR) Influenza Type A (PCR) Influenza Type B (PCR) RSV (PCR) MRSA (TEM-PCR) 03/15/23 03/15/23 03/15/23 15:45 13:21 12:45 WBC RBC Hgb Hct MCV MCH MCHC RDW Plt Count MPV Immature Gran % Neutrophils % Lymphocytes % Monocytes % Eosinophils % Basophils % Nucleated RBC % Absolute Neutrophils Absolute Lymphocytes Absolute Monocytes Absolute Eosinophils Absolute Basophils VBG Lactate Cancelled Cancelled Sodium Potassium Chloride Carbon Dioxide Anion Gap BUN Creatinine Est GFR (CKD-EPI 2020) Glucose Calcium Procalcitonin Urine Color Urine Clarity Urine pH Ur Specific [place] Urine Protein Urine Ketones Urine Blood Urine Nitrite Urine Bilirubin Urine Urobilinogen Ur Leukocyte Esterase Urine Glucose COVID-19 Source SARS-CoV-2 (PCR) Influenza Type A (PCR) Influenza Type B (PCR) RSV (PCR) MRSA (TEM-PCR) Negative 03/15/23 03/15/23 11:20 09:40 WBC RBC Hgb Hct MCV MCH MCHC RDW Plt Count MPV Immature Gran % Neutrophils % Lymphocytes % Monocytes % Eosinophils % Basophils % Nucleated RBC % Absolute Neutrophils Absolute Lymphocytes Absolute Monocytes Absolute Eosinophils Absolute Basophils VBG Lactate Sodium Potassium Chloride Carbon Dioxide Anion Gap BUN Creatinine Est GFR (CKD-EPI 2020) Glucose Calcium Procalcitonin < 0.1 Urine Color Urine Clarity Urine pH Ur Specific [place] Urine Protein Urine Ketones Urine Blood Urine Nitrite Urine Bilirubin Urine Urobilinogen Ur Leukocyte Esterase Urine Glucose COVID-19 Source Nasopharynx SARS-CoV-2 (PCR) Negative Influenza Type A (PCR) Negative Influenza Type B (PCR) Negative RSV (PCR) Negative MRSA (TEM-PCR) 03/15/23 10:30 Blood Blood Culture - Pending 03/15/23 10:20 Blood Blood Culture - Pending Preliminary micro results at discharge 03/15/23 10:30 Blood Culture - Pending Blood 03/15/23 10:20 Blood Culture - Pending Blood PFSH All Active Problems Generalized weakness (Acute) Fatigue (Acute) Acute dehydration (Acute) Respiratory failure, acute (Acute) Pneumonia (Acute) CVA (cerebral vascular accident) (Chronic) Bilateral sensorineural hearing loss (Acute) Impacted cerumen of both ears (Acute) Left rotator cuff tear arthropathy (Acute) Primary osteoarthritis, left shoulder (Acute) Hypomagnesemia (Acute) Recurrent UTI (urinary tract infection) (Acute) Tendonitis of left rotator cuff (Acute) Depression (Chronic) Goiter (Acute) Fibromyalgia (Chronic) KWAME (obstructive sleep apnea) (Chronic) Chronic pain (Chronic) Movement disorder (Acute) Muscle weakness (Acute) Left elbow contusion (Acute) Left displaced femoral neck fracture (Acute 09/16/20) Chronic renal insufficiency, stage III (moderate) (Acute) Anemia (Chronic) Chronic pain syndrome (Chronic) Hypertension (Chronic) Fracture of left hip (Acute) Osteoarthritis of right knee (Acute) Steroid injection: 04/05/2020 Has had previous viscosupplementation injections. Primary osteoarthritis of left knee (Chronic) We will see the patient back in 4-1/2 months for possible repeat Synvisc 1 in her left knee would consider x-ray in her right knee if she is still significantly symptomatic Medical History Chronic constipation Chronic insomnia IBS (irritable bowel syndrome) Recurrent UTI Urge incontinence Surgical History History of back surgery History of total left hip replacement (09/17/20) As treatment for a femoral neck fracture (DOI: 09/16/2020) Hx of cholecystectomy Social History Smoking/Tobacco Use Status: Never Smoking risk assessment performed?: Yes Alcohol Intake: never Drug use: Never Substance use type: does not use Housing: house Do you feel safe at home: Yes Do you feel safe in your relationship?: Yes Additional Social history: Grew up in [place], still lives in family home in [facility], lives alone In [place], still lives with her family health in [facility]. Still lives in family all Time Spent with Patient Time Spent with Patient: 45-69 minutes Time was spent: preparing to see the patient(eg.review tests), obtaining and/or reviewing separately otained hiistory, ordering medications,tests, procedures, referring, communicating with other health daycare director, indepentently interpreting results, counseling the patient and care coordination
--- NOTE | 2023-03-16 16:42 | PDOC.CMPRO ---
Date of service: 03/16/23 Time of Service: 16:43 Care Management Progress Note Progress Note Text Progress Note Text: Tegan was admitted yesterday with weakness and she was found to have pneumonia. She was started on antibiotics and her WBC normalized. Her oxygen saturation levels have been in the 90s on room air and she has remained afebrile. She is being discharged back home on Cefpodoxime and will follow up with her PCP.
== END 2023-03-16 15:04 | disposition home or self-care (01) | DRG 193 ==
LOC: ER 12:28 → MS 13:47
PROVIDERS: Admitting Provider Family Medicine; Emergency Provider Student in an Organized Health Care Education/Training Program; PCP Family Medicine; Visit Provider Family Medicine
DX: J96.01 Acute respiratory failure with hypoxia (principal); J18.9 Pneumonia, unspecified organism; R53.1 Weakness; G47.33 Obstructive sleep apnea (adult) (pediatric); I12.9 Hypertensive chronic kidney disease with stage 1 through stage 4 chronic kidney disease, or unspecified chronic kidney disease; N18.30 Chronic kidney disease, stage 3 unspecified; G89.4 Chronic pain syndrome; M17.0 Bilateral primary osteoarthritis of knee; Z86.73 Personal history of transient ischemic attack (TIA), and cerebral infarction without residual deficits; E83.42 Hypomagnesemia; D64.9 Anemia, unspecified; Z96.642 Presence of left artificial hip joint; K59.09 Other constipation; Z87.440 Personal history of urinary (tract) infections; F51.04 Psychophysiologic insomnia; N39.41 Urge incontinence; E04.9 Nontoxic goiter, unspecified; F32.A Depression, unspecified; M19.012 Primary osteoarthritis, left shoulder
CPT/HCPCS: 36415; 80048; 80053; 84145; 87040; 87637; 87641; 96365; 96368; 99285; J1650; 70450; 71045; 81003; 83605; 85025; 86140; 94667; 94668; 99223; 99239; J0131; J2020; J2543

== ENCOUNTER 2023-07-16 10:46 | Emergency (ER) | payer MEDICARE, MEDICAID, SELFPAY ==
[2023-07-16] VITALS (39 sets, daily range): BP systolic 148–186; BP diastolic 63–97; PULSE 56–78; RESP 0–20; TEMP 36.7; O2SAT 95
--- NOTE | 2023-07-16 11:00 | RT.EKG_ITS ---
APPROVED REPORT Exam: Resting ECG Reason for Exam: tremor Patient Location: E HR:68 bpm ECG Measurements Heart Rate 68 AXIS IA 202 P 66 QRSd 89 QRS 12 QT 438 T 74 QTc 461 Conclusion Sinus rhythm normal axis +PVCs
--- NOTE | 2023-07-16 11:31 | W.ED.GENAD ---
HPI General Date/Time Provider Initiated Documentation: 07/16/23 11:00. Limitations to Documentation: no limitations. Information obtained by: patient and family. HPI Narrative: 72-year-old female with past medical history of depression, fibromyalgia, chronic pain, hypertension presents for evaluation of twitching. Patient reports that she has been having this issue over the last year. She reports for the last 3 days that its gotten worse. She reports twitching and movement in her face and in her body. She reports that this makes it difficult for her to talk sometimes. She follows at [facility] for this problem. Related Data Home Medications Medication Instructions Recorded Confirmed omeprazole 40 mg capsule,delayed 40 mg PO DAILY 05/19/14 07/16/23 release polyethylene glycol 3350 17 17 g PO DAILY PRN PRN 05/19/14 07/16/23 gram/dose oral powder (Miralax) cholecalciferol (vitamin D3) 25 50 mcg PO DAILY 01/05/20 07/16/23 mcg (1,000 unit) tablet (Vitamin D3) vitamin B complex 1 tab PO DAILY 01/05/20 07/16/23 sertraline 50 mg tablet 75 mg PO DAILY 10/19/20 07/16/23 trazodone 100 mg tablet 200 mg PO HS PRN PRN 01/03/21 07/16/23 aspirin 81 mg tablet,delayed 81 mg PO DAILY 06/23/21 07/16/23 release meloxicam 15 mg tablet 15 mg PO DAILY 08/08/21 07/16/23 lorazepam 1 mg tablet (Ativan) 1 mg PO DAILY PRN #10 tabs 10/23/21 07/16/23 oxycodone 40 mg tablet,crush 40 tab PO BID 01/13/22 07/16/23 resistant,extended release 12 hr (OxyContin) amlodipine 10 mg tablet 10 mg PO DAILY 01/14/22 07/16/23 prochlorperazine maleate 5 mg 5 mg PO BID PRN PRN 01/14/22 07/16/23 tablet sennosides 8.6 mg tablet (senna) 8.6 mg PO QPM 01/14/22 07/16/23 topiramate 25 mg tablet (Topamax) 25 mg PO DAILY 08/06/22 07/16/23 lorazepam 1 mg tablet 1 mg PO DAILY PRN #3 tabs 02/02/23 07/16/23 cefpodoxime 200 mg tablet 200 mg PO BID #14 tabs 03/16/23 07/16/23 acetylcysteine 600 mg capsule 1,200 mg PO DAILY 07/16/23 07/16/23 cephalexin 500 mg tablet 500 mg PO BID 7 days #14 tabs 07/16/23 magnesium oxide-magnesium amino 1 cap PO BID 07/16/23 07/16/23 acid chelate 300 mg capsule (Magnesium (oxide/AA chelate)) naloxone 4 mg/actuation nasal spray 4 mg intranasal ONCE PRN 07/16/23 07/16/23 oxycodone 40 mg tablet,crush 20 mg PO QID 07/16/23 07/16/23 resistant,extended release 12 hr (OxyContin) Previous Rx's Medication Instructions Recorded lorazepam 1 mg tablet (Ativan) 1 mg PO DAILY PRN #10 tabs 10/23/21 lorazepam 1 mg tablet 1 mg PO DAILY PRN #3 tabs 02/02/23 cefpodoxime 200 mg tablet 200 mg PO BID #14 tabs 03/16/23 cephalexin 500 mg tablet 500 mg PO BID 7 days #14 tabs 07/16/23 Allergies Allergy/AdvReac Type Severity Reaction Status Date / Time sulfamethoxazole Allergy Verified 07/16/23 11:20 [From Bactrim] trimethoprim [From Bactrim] Allergy Verified 07/16/23 11:20 morphine AdvReac Intermediate Psychosis Unverified 03/15/23 09:47 baclofen AdvReac Unknown Unverified 07/16/23 11:20 chlorthalidone AdvReac Unknown Unverified 07/16/23 11:20 codeine AdvReac Unknown Unverified 07/16/23 11:20 dextromethorphan AdvReac Unknown Unverified 07/16/23 11:20 gabapentin [From Neurontin] AdvReac Unknown Unverified 07/16/23 11:20 hydrochlorothiazide AdvReac Unknown Unverified 07/16/23 11:20 pregabalin AdvReac Unknown Dopey Unverified 07/16/23 11:20 General Stated Complaint: GenMedical LOLITA: 3 Exam Narrative Exam Narrative: Review of Systems: All systems reviewed & are unremarkable except as noted in HPI and below Well-developed, no acute distress NCAT PERRL, normal conjunctiva RRR Unlabored respiratory effort, clear breath sounds bilaterally Nondistended abdomen , nontender Extremities w/o deformity, no cyanosis, no edema No rashes or lesions. Occasional right sided facial twitching noted, no tremor of the extremities appreciated, good trunk control. Normal strength throughout. Clear speech Appropriate mood and affect Course Vital Signs Vital signs: Vital Signs Temperature 36.7 C 07/16/23 10:52 Pulse 78 07/16/23 10:52 Respiratory Rate 18 07/16/23 10:52 Blood Pressure 158/81 H 07/16/23 10:52 Pulse Oximetry 95 07/16/23 10:52 Temperature 36.7 C 07/16/23 10:52 Temperature Source Oral 07/16/23 10:52 Pulse 78 07/16/23 10:52 Respiratory Rate 18 07/16/23 10:52 Respiratory Effort Normal, Non-Labored 07/16/23 11:08 Blood Pressure 158/81 H 07/16/23 10:52 Blood Pressure Position Sitting 07/16/23 10:52 Pulse Oximetry 95 07/16/23 10:52 Oxygen Delivery Method Room Air 07/16/23 10:52 Oxygen Flow Rate 0 07/16/23 10:52 Medical Decision Making Emergent evaluation of abnormal movements. Initial differential includes seizure, medication side effect, movement disorder. I doubt CVA. She is not having any sick symptoms, so I doubt infectious etiology like meningitis. I reviewed the medical record and noted that the patient takes copious amounts of narcotics. At this time she is hemodynamically stable. She has no focal neurologic deficits. Plan for lab work and will reassess. 1240 medical record at [facility] reviewed, patient has had EEG for the symptoms. Myoclonic activities, but no epileptic concerns Remaining lab work reviewed. No elevated white blood cell count, mild anemia. Normal renal function. She does have a nitrite positive infected urine. Culture has been sent. A dose of Rocephin has been given in the emergency department and I will discharge with a prescription for Keflex. At this time I do not feel that hospitalization is warranted. The movement disorder has been highly worked up and I do not feel additional workup is indicated at this time would be beneficial to the patient. Will discharge return precautions advised. Follow-up closely with PCP.. Medical Records Medical records reviewed: Yes I reviewed the patient's medical records. Medical records narrative: Neurology note from [facility]: Neurologist does not feel that these are epileptic twitches. Probably represent a complex interaction of her medications and also based on distractibility and variability I think there is a significant psychogenic stress related component to the movement disorders. Lab Data Lab results reviewed: Yes I reviewed the patient's lab results. ECG Data Attestation: I personally reviewed and interpreted this ECG (s) as follows: Interpretation: Sinus 68, normal axis, multiple PVCs Quality:SDOH Health Related Social Needs: No Data to Display PFSH All Active Problems (Updated 07/16/23 @ 14:15 by Kassy Patricio MD) Pneumonia (Acute) Bilateral sensorineural hearing loss (Acute) Impacted cerumen of both ears (Acute) Left rotator cuff tear arthropathy (Acute) Primary osteoarthritis, left shoulder (Acute) Hypomagnesemia (Acute) Recurrent UTI (urinary tract infection) (Acute) Tendonitis of left rotator cuff (Acute) Depression (Chronic) Goiter (Acute) Fibromyalgia (Chronic) KWAME (obstructive sleep apnea) (Chronic) Chronic pain (Chronic) Movement disorder (Acute) Muscle weakness (Acute) Left elbow contusion (Acute) Left displaced femoral neck fracture (Acute 09/16/20) Chronic renal insufficiency, stage III (moderate) (Acute) Anemia (Chronic) Chronic pain syndrome (Chronic) Hypertension (Chronic) Fracture of left hip (Acute) Osteoarthritis of right knee (Acute) Steroid injection: 04/05/2020 Has had previous viscosupplementation injections. Primary osteoarthritis of left knee (Chronic) We will see the patient back in 4-1/2 months for possible repeat Synvisc 1 in her left knee would consider x-ray in her right knee if she is still significantly symptomatic Medical History CVA (cerebral vascular accident) Recurrent UTI IBS (irritable bowel syndrome) Urge incontinence Chronic constipation Chronic insomnia Surgical History History of total left hip replacement (09/17/20) As treatment for a femoral neck fracture (DOI: 09/16/2020) History of back surgery Hx of cholecystectomy Social History Smoking/Tobacco Use Status: Never Smoking risk assessment performed?: Yes Alcohol Intake: never Drug use: Never Substance use type: does not use Housing: house Do you feel safe at home: Yes Do you feel safe in your relationship?: Yes Discharge Plan Disposition Patient Disposition: Home Discharge Details Clinical Impression: Movement disorder, Recurrent UTI (urinary tract infection) Primary Care Provider: Marixa Kurtz ED Provider: Kassy Patricio [place] Meds and New Rx's Prescriptions: New cephalexin 500 mg tablet 500 mg PO BID 7 Days Qty: 14 0RF No Action sertraline 50 mg tablet 75 mg PO DAILY trazodone 100 mg tablet 200 mg PO HS PRN PRN meloxicam 15 mg tablet 15 mg PO DAILY aspirin 81 mg tablet,delayed release (DR/EC) 81 mg PO DAILY topiramate [Topamax] 25 mg tablet 25 mg PO DAILY omeprazole 40 MG capsule,delayed release(DR/EC) 40 mg PO DAILY polyethylene glycol 3350 [Miralax] 119 GM powder 17 g PO DAILY PRN PRN Patient Comments: Not on pt's updated med list ML 03/13/23 vitamin B complex Tablet 1 tab PO DAILY cholecalciferol (vitamin D3) [Vitamin D3] 25 mcg (1,000 unit) Tablet 50 mcg PO DAILY Patient Comments: Not on pt's updated med list ML 03/13/23 lorazepam 1 mg tablet 1 mg PO DAILY PRNQty: 3 0RF cefpodoxime 200 mg tablet 200 mg PO BID Qty: 14 0RF Rx Instructions: must administer with a meal/food lorazepam [Ativan] 1 mg tablet 1 mg PO DAILY PRNQty: 10 0RF oxycodone [OxyContin] 40 mg tablet,oral only,ext.rel.12 hr 40 tab PO BID Patient Comments: TAKE ONE TABLET BY MOUTH TWICE A DAY sennosides [senna] 8.6 mg tablet 8.6 mg PO QPM amlodipine 10 mg tablet 10 mg PO DAILY prochlorperazine maleate 5 mg tablet 5 mg PO BID PRN PRN Patient Comments: TAKE 1 TABLET BY MOUTH 2 TIMES DAILY NEEDED acetylcysteine 600 mg capsule 1,200 mg PO DAILY Patient Comments: TAKE TWO CAPSULES BY MOUTH TWICE A DAY DIRECTED naloxone 4 mg/actuation spray,non-aerosol 4 mg INTRANASAL ONCE PRN Patient Comments: ADMINISTER 1 SPRAY INTO ONE NOSTRIL A SINGLE DOSE NEEDED FOR EXCESSIVE SEDATION Magnesium (oxide/AA chelate) 300 mg capsule 1 cap PO BID oxycodone [OxyContin] 40 mg tablet,oral only,ext.rel.12 hr 20 mg PO QID Discharge Instructions Instructions: Urinary Tract Infection in Women (ED) Additional Instructions: Start antibiotics tomorrow as prescribed Follow-up with PCP for further recommendations regarding the ongoing movement disorder
[2023-07-16 11:37] LABS: Abs Immature Grans 0.02 10^3/uL (0.0-0.06); Absolute Basophil Count 0.02 10^3/uL (0.0-0.2); Absolute Eosinophil Count 0.06 10^3/uL (0.0-0.7); Absolute Lymphocyte Count 0.92 10^3/uL (1.2-3.4); Absolute Monocyte Count 0.65 10^3/uL (0.1-0.8); Absolute Neutrophil Count 3.45 10^3/uL (1.2-6.7); Basophils % 0.4; Eosinophils % 1.2; HCT 30.2 % (36.0-46.0); HGB 9.7 g/dL (11.2-15.7); Immature Grans % 0.4; MCH 26.8 pg (27.0-33.0); MCHC 32.1 % (32.0-36.0); MCV 83 fL (80-95); MPV 8.8 fL (8.0-11.0); Monocytes % 12.7; Neutrophils % 67.3; Platelet Count 270 10^3/uL (130-400); RBC 3.62 10^6/uL (3.93-5.22); RDW 16.1 % (11.7-14.6); RDW-SD 49.2 fL; WBC 5.12 10^3/uL (4.4-10.8)
[2023-07-16] MEDS: LORazepam 2 MG/ML VIAL IVP (11:47)
[2023-07-16 12:09] LABS: ALT 13 U/L (14-59); AST 14 U/L (15-37); Albumin 3.6 g/dL (3.4-5.0); Alkaline Phosphatase 67 U/L (46-116); Anion Gap 8.5 mmol/L (3-11); BUN 20 mg/dL (7-18); Bilirubin, Total 0.4 mg/dL (0.2-1.0); CO2 28.5 mmol/L (21.0-32.0); Calcium 9.7 mg/dL (8.5-10.1); Chloride 104 mmol/L (98-107); Creatine Kinase 37 U/L (26-192); ETHANOL BLOOD < 3.0 mg/dL (<10); Estimated GFR 59.12 (mL/min/1.73m2); Glucose 104 mg/dL (74-106); Potassium 3.9 mmol/L (3.5-5.1); Sodium 141 mmol/L (136-145); TSH 1.89 uIU/mL (0.36-3.74); Total Protein 8.1 g/dL (6.4-8.2)
[2023-07-16 13:20] LABS: Bilirubin Negative (Negative); Blood Trace-lysed (Negative); Clarity Sl Cloudy (Clear); Glucose Negative (Negative); Ketones Negative (Negative); Leukocyte Esterase Moderate (Negative); Nitrite Positive (Negative); Urobilinogen 0.2 mg/dL (Up to 0.2); pH 6.5 (5-8)
[2023-07-16 13:32] LABS: *AMPHETAMINES SCREEN URINE Negative (Negative); *BARBITURATES SCREEN URINE Negative (Negative); *BENZODIAZEPINES SCREEN URINE Negative (Negative); Cannabinoids THC Negative (Negative); Cocaine Screen,Urine Negative (Negative); METHADONE URINE SCREEN Negative (Negative); OPIATES URINE SCREEN Positive (Negative)
[2023-07-16 13:33] LABS: Tricyclic Antidepressants Negative (Negative)
[2023-07-16 13:38] LABS: Epithelial Cells Negative HPF (Negative); Other Cells Negative (Negative); RBC 0-2 HPF (0-2)
[2023-07-16 13:39] LABS: Bacteria Moderate HPF (Negative); C & S Indicated? Yes; Casts Negative LPF (Negative); Crystals Negative HPF (Negative); Mucus Negative (Negative)
[2023-07-16] MEDS: cefTRIAXone 1 GM/50 ML BAG IVPB (14:01)
== END 2023-07-16 14:47 | disposition home or self-care (01) ==
PROVIDERS: Emergency Provider Emergency Medicine; PCP Family Medicine
DX: R68.83 Chills (without fever) (principal); G25.9 Extrapyramidal and movement disorder, unspecified; I10 Essential (primary) hypertension; M79.7 Fibromyalgia; Z86.73 Personal history of transient ischemic attack (TIA), and cerebral infarction without residual deficits
CPT/HCPCS: 36415; 80053; 80307; 82550; 87077; 93005; 96365; 96375; 99284; 80320; 81003; 81015; 83735; 84443; 85025; 87086; 87186; 93010; J0696; J2060

== ENCOUNTER 2023-07-20 06:20 | Emergency (ER) | payer MEDICARE, MEDICAID, SELFPAY ==
[2023-07-20] VITALS (8 sets, daily range): BP systolic 130–154; BP diastolic 62–88; PULSE 64–119; RESP 10–16; TEMP 38.8; O2SAT 94–96
--- NOTE | 2023-07-20 06:30 | DI.CT_ITS ---
Exam(s) CT HEAD WO EXAM: CT HEAD WO CLINICAL HISTORY: fall. TECHNIQUE: Imaging Protocol: Axial computed tomography images with coronal and sagittal reformatted images were created and reviewed COMPARISON: CT HEAD WITHOUT CONTRAST from 11/29/2017 CT HEAD WITHOUT STROKE PROTOCOL from 12/28/[address] HEAD WO from 03/15/2023 FINDINGS: Ventricles and Extra axial spaces: Normal in size and morphology for the patient's age. Hemorrhage: None. Cerebral parenchyma: There is again seen a large area of encephalomalacia in the right occipital lobe . There are areas of decreased attenuation in the white matter consistent with small vessel ischemic disease. There are hypodense areas in the basal ganglia bilaterally consistent with old lacunar inf arcts. There is no mass effect. Midline shift: None. Brainstem/Cerebellum: Normal. Calvarium: Normal. Visualized Paranasal sinuses/Mastoids: Clear. Soft Tissues: Unremarkable. IMPRESSION: 1. No acute intracranial process. 2. Findings were discussed with the emergency department at 9:27 a.m. on 07/20/2023. RADIATION DOSE DELIVERED: 738.89mGy.cm Total DLP DATA REPOSITORY: All CT scans at this facility are submitted to the National Radiology Data Registry (NRDR) Dose Index Registry (DIR) with the [employer] ([employer]). RADIATION OPTIMIZATION: All CT scans at this facility use at least one of these dose optimization te chniques: automated exposure control; mA and/or kV adjustment per patient size (includes targeted exa ms where dose is matched to clinical indication); or iterative reconstruction.
--- NOTE | 2023-07-20 06:59 | W.ED.GENAD ---
HPI <Ruchi Estrada MD - Last Filed: 07/20/23 08:01> General Mode of arrival: ambulatory. Date/Time Provider Initiated Documentation: 07/20/23 06:22. Information obtained by: patient and family. HPI Narrative: 72yo F with hx of HTN, chronic pain, presenting for left shoulder pain after a fall yesterday afternoon. Presents today at the insistence of her son who is at bedside. Patient states she lost her balance and fell, landing on her left side. Did not strike her head or lose consciousness. Has pain in her left shoulder and her left thigh, otherwise denies pain or injury. Able to range her neck freely. Recently treated for a UTI, son thinks with cephalexin. Patient denies fevers, chills, rash, nausea, vomiting, abdominal pain, or flank pain. No headache, numbness, or weakness. No chest pain or shortness of breath. No lightheadedness. She is otherwise in her usual state of health. Related Data Home Medications Medication Instructions Recorded Confirmed omeprazole 40 mg capsule,delayed 40 mg PO DAILY 05/19/14 07/20/23 release polyethylene glycol 3350 17 17 g PO DAILY PRN PRN 05/19/14 07/20/23 gram/dose oral powder (Miralax) cholecalciferol (vitamin D3) 25 50 mcg PO DAILY 01/05/20 07/20/23 mcg (1,000 unit) tablet (Vitamin D3) vitamin B complex 1 tab PO DAILY 01/05/20 07/20/23 sertraline 50 mg tablet 75 mg PO DAILY 10/19/20 07/20/23 trazodone 100 mg tablet 200 mg PO HS PRN PRN 01/03/21 07/20/23 aspirin 81 mg tablet,delayed 81 mg PO DAILY 06/23/21 07/20/23 release meloxicam 15 mg tablet 15 mg PO DAILY 08/08/21 07/20/23 lorazepam 1 mg tablet (Ativan) 1 mg PO DAILY PRN #10 tabs 10/23/21 07/20/23 oxycodone 40 mg tablet,crush 40 tab PO BID 01/13/22 07/16/23 resistant,extended release 12 hr (OxyContin) amlodipine 10 mg tablet 10 mg PO DAILY 01/14/22 07/20/23 prochlorperazine maleate 5 mg 5 mg PO BID PRN PRN 01/14/22 07/20/23 tablet sennosides 8.6 mg tablet (senna) 8.6 mg PO QPM 01/14/22 07/20/23 topiramate 25 mg tablet (Topamax) 25 mg PO DAILY 08/06/22 07/20/23 lorazepam 1 mg tablet 1 mg PO DAILY PRN #3 tabs 02/02/23 07/20/23 acetylcysteine 600 mg capsule 1,200 mg PO DAILY 07/16/23 07/20/23 cephalexin 500 mg tablet 500 mg PO BID 7 days #14 tabs 07/16/23 magnesium oxide-magnesium amino 1 cap PO BID 07/16/23 07/20/23 acid chelate 300 mg capsule (Magnesium (oxide/AA chelate)) naloxone 4 mg/actuation nasal spray 4 mg intranasal ONCE PRN 07/16/23 07/20/23 oxycodone 40 mg tablet,crush 20 mg PO QID 07/16/23 07/20/23 resistant,extended release 12 hr (OxyContin) amoxicillin 875 mg-potassium 1 tab PO BID 7 days #14 tabs 07/20/23 clavulanate 125 mg tablet azithromycin 250 mg tablet See Rx Instructions PO .COMPLEX #6 07/20/23 tabs Previous Rx's Medication Instructions Recorded lorazepam 1 mg tablet (Ativan) 1 mg PO DAILY PRN #10 tabs 10/23/21 lorazepam 1 mg tablet 1 mg PO DAILY PRN #3 tabs 02/02/23 cephalexin 500 mg tablet 500 mg PO BID 7 days #14 tabs 07/16/23 amoxicillin 875 mg-potassium 1 tab PO BID 7 days #14 tabs 07/20/23 clavulanate 125 mg tablet azithromycin 250 mg tablet See Rx Instructions PO .COMPLEX #6 07/20/23 tabs Allergies Allergy/AdvReac Type Severity Reaction Status Date / Time sulfamethoxazole Allergy Verified 07/20/23 06:26 [From Bactrim] trimethoprim [From Bactrim] Allergy Verified 07/20/23 06:26 morphine AdvReac Intermediate Psychosis Unverified 07/20/23 06:26 baclofen AdvReac Unknown Unverified 07/20/23 06:26 chlorthalidone AdvReac Unknown Unverified 07/20/23 06:26 codeine AdvReac Unknown Unverified 07/20/23 06:26 dextromethorphan AdvReac Unknown Unverified 07/20/23 06:26 gabapentin [From Neurontin] AdvReac Unknown Unverified 07/16/23 11:20 hydrochlorothiazide AdvReac Unknown Unverified 07/20/23 06:26 pregabalin AdvReac Unknown Dopey Unverified 07/20/23 06:26 General Stated Complaint: Fever LOLITA: 3 Review of Systems <Ruchi Estrada MD - Last Filed: 07/20/23 08:01> Narrative: see HPI Exam <Ruchi Estrada MD - Last Filed: 07/20/23 08:01> Narrative Exam Narrative: GENERAL: Alert. SKIN: Warm and well perfused. HEAD: Atraumatic, normocephalic without edema, discoloration or evidence of trauma. Facial bones without deformities or tenderness. EYES: PERRL. No scleral icterus or conjunctival injection. Extraocular muscles intact without nystagmus or diplopia. MOUTH: No malocclusion or trismus. Moist mucus membranes without blood. NECK: Trachea midline. No discolorations or edema. CV: Tachycardiac, regular. Normal s1 and s2. No murmurs, rubs, or gallops. PV: Radial pulses 2+ bilaterally and symmetric. Dorsalis pedis pulses 1+ bilaterally and symmetric. 2+ capillary refill. CHEST: No abrasions or ecchymosis. Chest symmetric with respirations. No chest wall tenderness. Lungs are clear to auscultation bilaterally. ABDOMEN: No ecchymosis or abrasions. Soft, nondistended, nontender. BACK: No abrasions, skin openings, or ecchymosis. Spine without bony tenderness, no step offs. PELVIC: Pelvis stable, nontender to lateral compression : Normal external genitalia MSK: No gross deformities. Echymosis to left lateral thigh, compartments soft. Slight ehcymosis to left posterior shoulder. Mild pain with ROM at shoulder, otherwise tolerates full range of motion of extremities without tenderness. NEURO: Alert and oriented to person, place, and time. GCS 15. Sensation grossly intact. Moves all extremities freely against gravity. Course <Ruchi Estrada MD - Last Filed: 07/20/23 08:01> Vital Signs Vital signs: Vital Signs Temperature 38.8 C H 07/20/23 06:30 Pulse 112 H 07/20/23 06:30 Respiratory Rate 16 07/20/23 06:30 Blood Pressure 154/88 H 07/20/23 06:30 Pulse Oximetry 95 07/20/23 06:30 Temperature 38.8 C H 07/20/23 06:38 Temperature Source Temporal Artery Scan 07/20/23 06:38 Pulse 119 H 07/20/23 06:38 Respiratory Rate 16 07/20/23 06:38 Respiratory Effort Normal, Non-Labored 07/20/23 06:37 Blood Pressure 154/88 H 07/20/23 06:30 Blood Pressure Position Sitting 07/20/23 06:30 Pulse Oximetry 94 07/20/23 06:38 Oxygen Delivery Method Room Air 07/20/23 06:38 Oxygen Flow Rate 0 07/20/23 06:30 Pain Level 7 07/20/23 06:38 Lab/Test Results Lab/Test Results: 07/20/23 06:35 Blood Blood Culture - Pending 07/20/23 06:35 Blood Blood Culture - Pending 07/20/23 06:35 Blood Blood Culture - Pending Medical Decision Making <Ruchi Estrada MD - Last Filed: 07/20/23 08:01> 72yo F with hx of HTN, chronic pain, presenting for left shoulder pain after a mechanical fall yesterday afternoon. Presents today at the insistence of her son who is at bedside. -AC -HS -LOC. Tachycardiac and febrile on arrival, does report being recently treated for UTI. Mildly hypertensive. Midlly ill appearing on exam but appears well perfused. SIRS + No clear indication of source on exam; abdomen non tender, no CVA tenderness, lungs clear, no decubitius ulcer- given history likely urosepsis Trauma exam overall reassuring; does have echymosis to left posterior shoulder and left lateral thigh. Not concerning for compartment syndrome. Will initiate sepsis work and treat empirically with broad spectrum antibiotics with plan to narrow when source identified, IVFB. Signed out to oncoming physician. Pending labs, UA, CXR, respiratory swab, plain film left shoulder, and head CT. Quality:[facility] Health Related Social Needs: No Data to Display <Kwame Oliva MD - Last Filed: 07/20/23 10:04> 72yo F with hx of HTN, chronic pain, presenting for left shoulder pain after a mechanical fall yesterday afternoon. Presents today at the insistence of her son who is at bedside. -AC -HS -LOC. Tachycardiac and febrile on arrival, does report being recently treated for UTI. Mildly hypertensive. Midlly ill appearing on exam but appears well perfused. SIRS + No clear indication of source on exam; abdomen non tender, no CVA tenderness, lungs clear, no decubitius ulcer- given history likely urosepsis Trauma exam overall reassuring; does have echymosis to left posterior shoulder and left lateral thigh. Not concerning for compartment syndrome. Will initiate sepsis work and treat empirically with broad spectrum antibiotics with plan to narrow when source identified, IVFB. Signed out to oncoming physician. Pending labs, UA, CXR, respiratory swab, plain film left shoulder, and head CT. 9: 01 patient was seen for no acute distress alert oriented interactive following commands. Urinalysis negative. Given fall tachycardia fever have added chest abdomen pelvis imaging to assess for intrathoracic intra-abdominal trauma versus intrathoracic/intra-abdominal infectious process. Moving all extremities without deficit. Will follow-up shoulder image. Will reassess vital signs after antibiotics and fluids. 10: 00 patient resting actively no acute distress. Vital signs greatly improved. Lactate downtrending to normal value. Patient alert oriented interactive. No respiratory distress. Evidence of possible pneumonia on the CT. Per family patient ambulates mainly in a wheelchair. Better wishes to go home. Son here with wheelchair. PFSH <Ruchi Estrada MD - Last Filed: 07/20/23 08:01> All Active Problems (Updated 07/20/23 @ 10:02 by Kwame lOiva MD) Pulmonary infiltrate (Acute) Pneumonia (Acute) Bilateral sensorineural hearing loss (Acute) Impacted cerumen of both ears (Acute) Left rotator cuff tear arthropathy (Acute) Primary osteoarthritis, left shoulder (Acute) Hypomagnesemia (Acute) Recurrent UTI (urinary tract infection) (Acute) Tendonitis of left rotator cuff (Acute) Depression (Chronic) Goiter (Acute) Fibromyalgia (Chronic) KWAME (obstructive sleep apnea) (Chronic) Chronic pain (Chronic) Movement disorder (Acute) Muscle weakness (Acute) Left elbow contusion (Acute) Left displaced femoral neck fracture (Acute 09/16/20) Chronic renal insufficiency, stage III (moderate) (Acute) Anemia (Chronic) Chronic pain syndrome (Chronic) Hypertension (Chronic) Fracture of left hip (Acute) Osteoarthritis of right knee (Acute) Steroid injection: 04/05/2020 Has had previous viscosupplementation injections. Primary osteoarthritis of left knee (Chronic) We will see the patient back in 4-1/2 months for possible repeat Synvisc 1 in her left knee would consider x-ray in her right knee if she is still significantly symptomatic Medical History CVA (cerebral vascular accident) Recurrent UTI IBS (irritable bowel syndrome) Urge incontinence Chronic constipation Chronic insomnia Surgical History History of total left hip replacement (09/17/20) As treatment for a femoral neck fracture (DOI: 09/16/2020) History of back surgery Hx of cholecystectomy Social History Smoking/Tobacco Use Status: Never Smoking risk assessment performed?: Yes Alcohol Intake: never Drug use: Never Substance use type: does not use Housing: house Do you feel safe at home: Yes Do you feel safe in your relationship?: Yes Sign Out <Ruchi Estrada MD - Last Filed: 07/20/23 08:01> Sign Out Data: Sign Out Comment: 72 F presented for shoulder pain after fall yesterday. Likely urosepsis. Pending labs, head CT, plain film shoulder Last updated by Ruchi Estrada MD at 07/20/23 07:37 Discharge Plan Disposition Patient Disposition: Home Condition: Improving Discharge Details Clinical Impression: Pulmonary infiltrate Primary Care Provider: Marixa Kurtz ED Provider: Kwame Oliva Home Meds and New Rx's Prescriptions: New azithromycin 250 mg tablet See Rx Instructions .ROUTE .COMPLEX Qty: 6 0RF Rx Instructions: For 250 mg dose pack: take 500 mg today (day 1), then 250 mg for 4 days (days 2-5) amoxicillin-pot clavulanate 875-125 mg tablet 1 tab PO BID 7 Days Qty: 14 0RF No Action sertraline 50 mg tablet 75 mg PO DAILY trazodone 100 mg tablet 200 mg PO HS PRN PRN meloxicam 15 mg tablet 15 mg PO DAILY aspirin 81 mg tablet,delayed release (DR/EC) 81 mg PO DAILY topiramate [Topamax] 25 mg tablet 25 mg PO DAILY omeprazole 40 MG capsule,delayed release(DR/EC) 40 mg PO DAILY polyethylene glycol 3350 [Miralax] 119 GM powder 17 g PO DAILY PRN PRN Patient Comments: Not on pt's updated med list 03/13/23 vitamin B complex Tablet 1 tab PO DAILY cholecalciferol (vitamin D3) [Vitamin D3] 25 mcg (1,000 unit) Tablet 50 mcg PO DAILY Patient Comments: Not on pt's updated med list 03/13/23 lorazepam 1 mg tablet 1 mg PO DAILY PRNQty: 3 0RF lorazepam [Ativan] 1 mg tablet 1 mg PO DAILY PRNQty: 10 0RF oxycodone [OxyContin] 40 mg tablet,oral only,ext.rel.12 hr 40 tab PO BID Patient Comments: TAKE ONE TABLET BY MOUTH TWICE A DAY sennosides [senna] 8.6 mg tablet 8.6 mg PO QPM amlodipine 10 mg tablet 10 mg PO DAILY prochlorperazine maleate 5 mg tablet 5 mg PO BID PRN PRN Patient Comments: TAKE 1 TABLET BY MOUTH 2 TIMES DAILY NEEDED acetylcysteine 600 mg capsule 1,200 mg PO DAILY Patient Comments: TAKE TWO CAPSULES BY MOUTH TWICE A DAY DIRECTED naloxone 4 mg/actuation spray,non-aerosol 4 mg INTRANASAL ONCE PRN Patient Comments: ADMINISTER 1 SPRAY INTO ONE NOSTRIL A SINGLE DOSE NEEDED FOR EXCESSIVE SEDATION Magnesium (oxide/AA chelate) 300 mg capsule 1 cap PO BID oxycodone [OxyContin] 40 mg tablet,oral only,ext.rel.12 hr 20 mg PO QID cephalexin 500 mg tablet 500 mg PO BID 7 Days Qty: 14 0RF Discharge Instructions Instructions: Pneumonia (ED) Additional Instructions: Please take medication as prescribed. Return to emergency department for any worsening symptoms. Follow-up with primary care physician.
[2023-07-20 07:06] LABS: BE (Venous) 0 mmol/L (-2-3); HCO3 (Venous) 25 mmol/L (23-28); O2 Sat (Venous) 89 %; TCO2 (Venous) 24 mmol/L (24-29); pCO2 (Venous) 39 mmHg (41-51); pH (Venous) 7.41 (7.31-7.41); pO2 (Venous) 54 mmHg
[2023-07-20 07:07] LABS: Abs Immature Grans 0.09 10^3/uL (0.0-0.06); Absolute Basophil Count 0.04 10^3/uL (0.0-0.2); Absolute Lymphocyte Count 0.26 10^3/uL (1.2-3.4); Absolute Neutrophil Count 17.17 10^3/uL (1.2-6.7); Basophils % 0.2; HCT 28.2 % (36.0-46.0); HGB 9.1 g/dL (11.2-15.7); Immature Grans % 0.5; Lymphocytes % 1.4; MCH 26.7 pg (27.0-33.0); MCHC 32.3 % (32.0-36.0); MCV 83 fL (80-95); MPV 9.4 fL (8.0-11.0); Monocytes % 5.4; Neutrophils % 92.5; Platelet Count 271 10^3/uL (130-400); RBC 3.41 10^6/uL (3.93-5.22); RDW 16.4 % (11.7-14.6); RDW-SD 49.7 fL; WBC 18.56 10^3/uL (4.4-10.8)
[2023-07-20 07:08] LABS: Lactate 2.3 mmol/L (0.6-1.4)
[2023-07-20 07:23] LABS: COVID-19 PCR Negative (Negative); Influenza A PCR Negative (Negative); Influenza B PCR Negative (Negative); RSV PCR Negative (Negative)
[2023-07-20 07:24] LABS: Source Nasopharynx
[2023-07-20 07:26] LABS: ALT 28 U/L (14-59); AST 25 U/L (15-37); Albumin 3.5 g/dL (3.4-5.0); Alkaline Phosphatase 80 U/L (46-116); Anion Gap 11.3 mmol/L (3-11); BUN 31 mg/dL (7-18); Bilirubin, Total 0.5 mg/dL (0.2-1.0); CO2 25.7 mmol/L (21.0-32.0); CREATININE 1.2 mg/dL (0.55-1.02); Calcium 9.5 mg/dL (8.5-10.1); Chloride 106 mmol/L (98-107); Glucose 199 mg/dL (74-106); Potassium 3.7 mmol/L (3.5-5.1); Sodium 143 mmol/L (136-145); Troponin I < 50 ng/L (< or =60)
[2023-07-20] MEDS: PIPERACILLIN/TAZO 4.5 GM in Normal Saline 100 ML IVPB (07:34)
[2023-07-20] MEDS: Lactated Ringers 500 ML 1000 ML IV (07:39)
[2023-07-20 07:54] LABS: Procalcitonin 0.2 ng/mL
[2023-07-20] MEDS: Acetaminophen 500 MG TAB 1000 MG PO (08:06)
[2023-07-20] MEDS: LINEZOLID 600 MG/300 ML BAG 300 MG IVPB (08:09)
[2023-07-20 08:15] LABS: Bilirubin Negative (Negative); Blood Trace-intact (Negative); Clarity Clear (Clear); Glucose Negative (Negative); Ketones Negative (Negative); Leukocyte Esterase Negative (Negative); Nitrite Negative (Negative); Urobilinogen 0.2 mg/dL (Up to 0.2); pH 5.5 (5-8)
[2023-07-20 08:22] LABS: Bacteria Rare HPF (Negative); C & S Indicated? No; Casts Negative LPF (Negative); Crystals Negative HPF (Negative); Epithelial Cells Moderate HPF (Negative); Mucus Trace (Negative); RBC 0-2 HPF (0-2); WBC Negative HPF (0-5)
[2023-07-20] MEDS: Omnipaque 350 MG/ML 500 ML BTL-Imaging package 100 ML IJ (08:46)
--- NOTE | 2023-07-20 08:53 | DI.CT_ITS ---
Exam(s) CT CHEST/ABD/PEL W EXAM: CT CHEST/ABD/PEL W CLINICAL HISTORY: fall, ams, fever, tachycardia TECHNIQUE: Imaging Protocol: Axial computed tomography images with coronal and sagittal reformatted images were created and reviewed CONTRAST MATERIAL: Intravenous: Omnipaque 350 contrast volume:100 mL Oral: No COMPARISON: CT CT ABDOMEN PELVIS W from 08/04/[address] CHEST/ABD/PEL WO from 01/13/2022 FINDINGS: The examination is limited due to patient motion artifact. CHEST: Tracheobronchial tree: Patent where visualized. Pulmonary parenchyma: Infiltrates are seen in the lower lobes bilaterally, left greater than right. No architectural distortion. Visualized thyroid gland: Unremarkable. Mediastinum and Ruth: No dominant adenopathy or fluid collection. The esophagus is unremarkable. The re is a small hiatal hernia. Pleura: No effusion or pneumothorax. Heart: Mild cardiomegaly. Coronary artery calcification and/or stents. No pericardial effusion. Pulmonary arteries: Due to the timing of the bolus, pulmonary artery opacification is not optimized f or evaluation of emboli. No large central pulmonary embolus is seen. Aorta: Thoracic aorta non-dilated. Atherosclerosis. Lymph nodes: Within normal limits. Soft tissues: Unremarkable. Bones:Within normal limits for the patient's age. ABDOMEN: Liver: Normal density. No measurable mass. Portal, Superior Mesenteric, and Splenic Veins: Unremarkable. Gallbladder and Biliary Tract: Status post cholecystectomy. There is dilatation of the extra hepatic bile duct to 1.4 cm. This is unchanged compared to the prior examination. This likely reflects pos t cholecystectomy findings. Pancreas: Stable pancreatic atrophy. Stable pancreatic cysts. Spleen: Normal. Adrenals: No masses seen. Kidneys: Normal size, contour and axis. No radiodense stones or obstructive uropathy. No masses seen. Abdominal Aorta: Abdominal portion non-dilated. Atherosclerosis. Bowel: There is diverticulosis of the colon. There is a moderate amount of stool seen throughout the colon. No pericolonic inflammatory changes are seen to suggest an acute colitis. There is no evide nce of bowel obstruction. No evidence of appendicitis. Peritoneal Cavity: No ascites, collection or mesenteric inflammatory response. No free air. Lymph Nodes: Within normal limits. Bones: Within normal limits for the patient's age. The patient has a left total hip replacement. Th ere are degenerative changes seen in the right hip. Postsurgical changes are seen at L3-L4. There i s a left convex lumbar curvature. Soft Tissues: Unremarkable. There is fatty atrophy of the paraspinal muscles. PELVIS: Bladder: There is thickening of the wall of the urinary bladder. There are few small foci of air see n within the dependent portion of the urinary bladder. Reproductive Organs: Unremarkable as visualized. Lymph Nodes: Within normal limits. Bones: Within normal limits. IMPRESSION: 1. Bilateral pulmonary infiltrates. This may represent atelectasis or pneumonia. Possible pulmonary contusions. 2. No evidence of a pneumothorax. 3. No evidence of abdominal or pelvic organ injury. 4. Three foci of air seen in the dependent portion of the urinary bladder of indeterminate origin. T here is bladder wall thickening. These findings may reflect infection. Please correlate if there barajas s been any recent catheterization. 5. No acute fracture. RADIATION DOSE DELIVERED: 1,185mGy.cm Total DLP DATA REPOSITORY: All CT scans at this facility are submitted to the National Radiology Data Registry (NRDR) Dose Index Registry (DIR) with the [employer] (ACR). RADIATION OPTIMIZATION: All CT scans at this facility use at least one of these dose optimization te chniques: automated exposure control; mA and/or kV adjustment per patient size (includes targeted exa ms where dose is matched to clinical indication); or iterative reconstruction.
--- NOTE | 2023-07-20 09:20 | DI.RAD_ITS ---
Exam(s) XR SHOULDER LT COMPLETE 2+V EXAM: XR SHOULDER LT COMPLETE 2+V CLINICAL HISTORY: fall, left shoulder pain. TECHNIQUE: 2D digital imaging was performed of the left shoulder. Seven images were obtained. AP, Grashey, Y-view and axillary views were obtained. COMPARISON: CR XR SHOULDER LT COMPLETE 2+V from 08/08/2021 FINDINGS: BONES: No acute fracture is present. No bony destructive lesion is seen. JOINTS: No dislocation present. There are degenerative changes seen at the acromioclavicular and anuj ohumeral joints. SOFT TISSUE: The visualized lungs are clear. IMPRESSION: No acute fracture or dislocation. DATA REPOSITORY: RADIATION DOSE DELIVERED:
== END 2023-07-20 10:22 | disposition home or self-care (01) ==
PROVIDERS: Student in an Organized Health Care Education/Training Program; Emergency Provider Emergency Medicine; PCP Family Medicine
DX: S70.12XA Contusion of left thigh, initial encounter (principal); S40.012A Contusion of left shoulder, initial encounter; R91.8 Other nonspecific abnormal finding of lung field; I10 Essential (primary) hypertension; Z11.52 Encounter for screening for COVID-19; Z79.82 Long term (current) use of aspirin; Z86.73 Personal history of transient ischemic attack (TIA), and cerebral infarction without residual deficits; W18.30XA Fall on same level, unspecified, initial encounter
CPT/HCPCS: 36415; 74177; 80053; 82805; 84145; 87040; 87637; 96365; 96368; 99285; 70450; 71260; 73030; 81003; 81015; 83605; 84484; 85025; 99284; J2020; J2543

== ENCOUNTER 2023-09-01 11:08 | Outpatient (REF) | payer MEDICARE, MEDICAID, SELFPAY ==
[2023-09-01 11:27] LABS: Bacteria Moderate HPF (Negative); C & S Indicated? C&S Done As Ordered; Casts Negative LPF (Negative); Crystals Negative HPF (Negative); Epithelial Cells Few HPF (Negative); Mucus Trace (Negative); RBC 0-2 HPF (0-2)
== END 2023-09-01 11:09 | disposition home or self-care (01) ==
LOC: LBN 11:08
PROVIDERS: PCP Family Medicine; Referring Provider Physician Assistant Medical; Visit Provider Physician Assistant Medical
DX: R35.0 Frequency of micturition (principal)
CPT/HCPCS: 87077; 81015; 87086; 87186

== ENCOUNTER 2023-10-19 14:58 | Outpatient (REF) | payer MEDICARE, MEDICAID, SELFPAY | END 2023-10-19 14:59 | disposition home or self-care (01) | LOC: LBN 14:58 | PROVIDERS: PCP Family Medicine; Visit Provider Physician Assistant Medical | DX: N39.0 Urinary tract infection, site not specified (principal) | CPT/HCPCS: 87077; 87086; 87186 ==

== ENCOUNTER 2023-11-30 19:54 | Emergency (ER) | payer MEDICARE, MEDICAID, SELFPAY ==
[2023-11-30 19:52] VITALS: BP 223/79; PULSE 65; RESP 16; TEMP 36.9; O2SAT 96
[2023-11-30 19:59] VITALS: BP 223/79; PULSE 62; PULSE 63; RESP 18; O2SAT 96
[2023-11-30 20:00] VITALS: PULSE 64; RESP 9
--- NOTE | 2023-11-30 20:00 | DI.CT_ITS ---
Exam(s) CT BRAIN NECK CTA EXAM: CT BRAIN NECK CTA CLINICAL HISTORY: vision changes. TECHNIQUE: Imaging Protocol: Axial CT angiography was performed with multi-slice acquisition and mu lti-planar and/or 3D reconstructions. CONTRAST MATERIAL: Intravenous: Omnipaque 350 contrast volume:100 mL COMPARISON: CT CT HEAD WO from 03/15/[address] CHEST/ABD/PEL W from 07/20/[address] HEAD WO from 07/20/2023 FINDINGS: CT Head W/O and W: Ventricles and Extra axial spaces: Normal in size and morphology for the patient's age. Hemorrhage: None. Cerebral parenchyma: There are areas of decreased attenuation in the white matter consistent with chr onic microvascular ischemic disease. There is an old right occipital infarct. There are old bilater al basal gangliar and right thalamic lacunar infarcts. No acute mass effect is identified. Midline shift: None. Brainstem/Cerebellum: Normal. Calvarium: Normal. Visualized Paranasal sinuses/Mastoids: Clear. Soft Tissues: Unremarkable. Enhancement: Unremarkable. Vasculature: Extensive atherosclerotic calcification is seen in the [id number]. CTA Neck W: Common Carotid: Right: No dissection, occlusion or significant stenosis. Left: No dissection, occlusion or significant stenosis. Mild atherosclerotic calcification is presen t. External Carotid: Right: No occlusion or significant stenosis. Left: No occlusion or significant stenosis. Internal Carotid: Right: No dissection, occlusion or significant stenosis. Left: No dissection, occlusion or significant stenosis. Mild atherosclerotic calcification in the ca rotid bulb. Vertebral Artery: Right: No dissection or occlusion. Atherosclerotic calcification is seen in the distal right verteb ral artery with moderately severe stenosis present. Left: No dissection, occlusion or significant stenosis. Atherosclerotic calcification is seen in the distal vertebral artery. Lung Apices: No acute infiltrates are present. Bones: Within normal limits for the patient's age. Anterior cervical disc fusion is present. Soft Tissues: Normal. Thyroid gland: There are few subcentimeter hypodense nodules in the thyroid gland. No follow-up is r ecommended. CTA Brain W: Internal Carotid Arteries: Atherosclerotic calcification is present, but no occlusion, aneurysm or si gnificant stenosis is seen. Anterior Cerebral Arteries: Right: No aneurysm, occlusion or significant stenosis. There is an absent right A1 segment. The ant erior cerebral artery receives its flow via the anterior communicating artery. Left: No aneurysm, occlusion or significant stenosis. Middle Cerebral Arteries: Right: No aneurysm, occlusion or significant stenosis. Left: No aneurysm, occlusion or significant stenosis. Posterior Cerebral Arteries: Right: No aneurysm, occlusion or significant stenosis. Left: No aneurysm, occlusion or significant stenosis. Vertebral Arteries: Right: No aneurysm, occlusion or significant stenosis. Left: No aneurysm, occlusion or significant stenosis. Basilar Artery: No aneurysm, occlusion or significant stenosis. IMPRESSION: 1. No large vessel occlusion or significant stenosis on the CT angiography of the head. 2. No acute intracranial process. 3. Moderately severe narrowing of the distal right vertebral artery secondary to atherosclerotic dise ase. Unexpected findings RADIATION DOSE DELIVERED: Total DLP DATA REPOSITORY: All CT scans at this facility are submitted to the National Radiology Data Registry (NRDR) Dose Index Registry (DIR) with the [employer] (ACR). RADIATION OPTIMIZATION: All CT scans at this facility use at least one of these dose optimization te chniques: automated exposure control; mA and/or kV adjustment per patient size (includes targeted exa ms where dose is matched to clinical indication); or iterative reconstruction.
--- NOTE | 2023-11-30 20:00 | RT.EKG_ITS ---
APPROVED REPORT Exam: Resting ECG Reason for Exam: weakness Patient Location: E HR:61 bpm ECG Measurements Heart Rate 61 AXIS IN 208 P 26 QRSd 93 QRS -8 QT 433 T 57 QTc 435 Conclusion Sinus rhythm...normal P axis, V-rate 60- 99 Probable LVH with secondary repol abnrm...multiple LVH criteria sinus rhtyhm, normal axis, normal intervals, non ischemic
[2023-11-30 20:01] VITALS: BP 223/87; PULSE 60; RESP 10; O2SAT 97
--- NOTE | 2023-11-30 20:01 | ED.GENADUL_ITS ---
Discharge Plan Disposition Patient Disposition: Against Medical Advice Condition: Stable Discharge Details Clinical Impression: Weakness Primary Care Provider: Marixa Kurtz ED Provider: [place] Home Meds and New Rx's Prescriptions: No Action sertraline 50 mg tablet 75 mg PO DAILY trazodone 100 mg tablet 200 mg PO HS PRN PRN meloxicam 15 mg tablet 15 mg PO DAILY aspirin 81 mg tablet,delayed release (DR/EC) 81 mg PO DAILY topiramate [Topamax] 25 mg tablet 25 mg PO DAILY omeprazole 40 MG capsule,delayed release(DR/EC) 40 mg PO DAILY polyethylene glycol 3350 [Miralax] 119 GM powder 17 g PO DAILY PRN PRN Patient Comments: Not on pt's updated med list ML 03/13/23 vitamin B complex Tablet 1 tab PO DAILY cholecalciferol (vitamin D3) [Vitamin D3] 25 mcg (1,000 unit) Tablet 50 mcg PO DAILY Patient Comments: Not on pt's updated med list ML 03/13/23 lorazepam 1 mg tablet 1 mg PO DAILY PRNQty: 3 0RF azithromycin 250 mg tablet See Rx Instructions .ROUTE .COMPLEX Qty: 6 0RF Rx Instructions: For 250 mg dose pack: take 500 mg today (day 1), then 250 mg for 4 days (days 2-5) lorazepam [Ativan] 1 mg tablet 1 mg PO DAILY PRNQty: 10 0RF oxycodone [OxyContin] 40 mg tablet,oral only,ext.rel.12 hr 40 tab PO BID Patient Comments: TAKE ONE TABLET BY MOUTH TWICE A DAY sennosides [senna] 8.6 mg tablet 8.6 mg PO QPM amlodipine 10 mg tablet 10 mg PO DAILY prochlorperazine maleate 5 mg tablet 5 mg PO BID PRN PRN Patient Comments: TAKE 1 TABLET BY MOUTH 2 TIMES DAILY NEEDED acetylcysteine 600 mg capsule 1,200 mg PO DAILY Patient Comments: TAKE TWO CAPSULES BY MOUTH TWICE A DAY DIRECTED naloxone 4 mg/actuation spray,non-aerosol 4 mg INTRANASAL ONCE PRN Patient Comments: ADMINISTER 1 SPRAY INTO ONE NOSTRIL A SINGLE DOSE NEEDED FOR EXCESSIVE SEDATION Magnesium (oxide/AA chelate) 300 mg capsule 1 cap PO BID oxycodone [OxyContin] 40 mg tablet,oral only,ext.rel.12 hr 20 mg PO QID Discharge Instructions Instructions: Fatigue ED Additional Instructions: You were seen in the emergency department for your weakness at home, your blood pressure is quite high please take your home medication of amlodipine. We performed extensive workup and showed no evidence of sepsis, no UTI, no major electrolyte abnormalities, your EKG was normal and there is no damage to your heart occurring, he had normal kidney function, you wished to be discharged without results of your CTA of your head and neck for any neurologic cause of your weakness. You refused chest x-ray so we could not rule out any pneumonia causing your weakness and shaking. He had no elevation of white blood cells indicating severe infection, he had mild elevation of lymphocytes indicating possible viral infection. You had baseline anemia that was higher than your last recorded hemoglobin. You identified your location, the correct month I believe you are of sound mind to refuse certain aspects of your medical care and you acknowledge the risk that we would not be diagnosing possible fatal conditions, I do encourage you to hydrate at home for possible viral syndrome. Take Tylenol and ibuprofen for any pain of body aches, this will help with generalized malaise to. Please return by EMS for any emergent concerns, any profound lethargy, intractable nausea or vomiting, black or bloody stools, focal weakness, cough or shortness of breath or chest pain. Referrals: Marixa Kurtz [Primary Care Provider] - [facility] General Date/Time Provider Initiated Documentation: 11/30/23 20:00 . HPI Narrative: 73 year-old female presents to ED today by EMS with a chief complaint of shaky, weak and nauseous since last night, has not eaten today, history of seizures, son called EMS. Quality described as states she just feels shaky weak and nauseous, has a very curious flat affect, no radiation to chest pain, shortness of breath, severe sudden onset headache or vision changes, I do question the patient's reliability with her affect. Severity is described as moderate/10. Palliating factors include nothing specific. Provoking factors include nothing specific. Events leading up to the incident/Associated Symptoms: Patient states that she is been out of her Ativan for 2 days, is on topiramate for other antiepileptic at low dose. Patient not anticoagulated. Related Data Home Medications Medication Instructions Recorded Confirmed omeprazole 40 mg capsule,delayed 40 mg PO DAILY 05/19/14 07/20/23 release polyethylene glycol 3350 17 17 g PO DAILY PRN PRN 05/19/14 07/20/23 gram/dose oral powder (Miralax) cholecalciferol (vitamin D3) 25 50 mcg PO DAILY 01/05/20 07/20/23 mcg (1,000 unit) tablet (Vitamin D3) vitamin B complex 1 tab PO DAILY 01/05/20 07/20/23 sertraline 50 mg tablet 75 mg PO DAILY 10/19/20 07/20/23 trazodone 100 mg tablet 200 mg PO HS PRN PRN 01/03/21 07/20/23 aspirin 81 mg tablet,delayed 81 mg PO DAILY 06/23/21 07/20/23 release meloxicam 15 mg tablet 15 mg PO DAILY 08/08/21 07/20/23 lorazepam 1 mg tablet (Ativan) 1 mg PO DAILY PRN #10 tabs 10/23/21 07/20/23 oxycodone 40 mg tablet,crush 40 tab PO BID 01/13/22 07/16/23 resistant,extended release 12 hr (OxyContin) amlodipine 10 mg tablet 10 mg PO DAILY 01/14/22 07/20/23 prochlorperazine maleate 5 mg 5 mg PO BID PRN PRN 01/14/22 07/20/23 tablet sennosides 8.6 mg tablet (senna) 8.6 mg PO QPM 01/14/22 07/20/23 topiramate 25 mg tablet (Topamax) 25 mg PO DAILY 08/06/22 07/20/23 lorazepam 1 mg tablet 1 mg PO DAILY PRN #3 tabs 02/02/23 07/20/23 acetylcysteine 600 mg capsule 1,200 mg PO DAILY 07/16/23 07/20/23 magnesium oxide-magnesium amino 1 cap PO BID 07/16/23 07/20/23 acid chelate 300 mg capsule (Magnesium (oxide/AA chelate)) naloxone 4 mg/actuation nasal spray 4 mg intranasal ONCE PRN 07/16/23 07/20/23 oxycodone 40 mg tablet,crush 20 mg PO QID 07/16/23 07/20/23 resistant,extended release 12 hr (OxyContin) azithromycin 250 mg tablet See Rx Instructions PO .COMPLEX #6 07/20/23 tabs Previous Rx's Medication Instructions Recorded lorazepam 1 mg tablet (Ativan) 1 mg PO DAILY PRN #10 tabs 10/23/21 lorazepam 1 mg tablet 1 mg PO DAILY PRN #3 tabs 02/02/23 azithromycin 250 mg tablet See Rx Instructions PO .COMPLEX #6 07/20/23 tabs Allergies Allergy/AdvReac Type Severity Reaction Status Date / Time sulfamethoxazole Allergy Diarrhea Verified 11/30/23 20:16 [From Bactrim] trimethoprim [From Bactrim] Allergy Diarrhea Verified 11/30/23 20:16 morphine AdvReac Intermediate Psychosis Unverified 11/30/23 20:16 baclofen AdvReac Unknown Unknown Unverified 11/30/23 20:16 chlorthalidone AdvReac Unknown Unknown Unverified 11/30/23 20:16 codeine AdvReac Unknown Unknown Unverified 11/30/23 20:16 dextromethorphan AdvReac Unknown Unknown Unverified 11/30/23 20:16 gabapentin [From Neurontin] AdvReac Unknown Unknown Unverified 11/30/23 20:16 hydrochlorothiazide AdvReac Unknown Unknown Unverified 11/30/23 20:16 pregabalin AdvReac Unknown Dopey Unverified 11/30/23 20:16 General Stated Complaint: GenMedical LOLITA: 3 Review of Systems All systems reviewed & are unremarkable except as noted in HPI and below Exam Narrative Exam Narrative: GENERAL APPEARANCE: Frail, questionably toxic/diaphoretic, awake and alert- odd affect, atraumatic, no acute distress. SKIN: Warm, pink, dry, intact, without rashes/lesions/ulcerations. HEAD: Normocephalic, atraumatic, normal hair distribution for gender/age. EYES: Pupils PERRLA, EOMs intact without nystagmus, normal conjunctiva, no exudates on lids/lashes. ENT: Nares patent, no circumoral cyanosis, no facial swelling, oral mucosa dry NECK: Supple, trachea midline, painless cervical ROM, no nuchal rigidity. LUNGS/CHEST: Lungs CTA bilaterally- no rhonchi/rales at bases, no wheezing, non- labored respirations, normal A/P diameter, symmetrical expansion, no chest wall deformity HEART (CV/PV): Regular rate and rhythm without murmur, no peripheral edema, no JVD. ABDOMEN: Soft, non-distended, no guarding, no peritoneal signs, no focal tenderness. MSK: Normal ROM, no swelling/deformity to bilateral UEs or LEs, moving all extremities without weakness, no cyanosis, spine midline without tenderness, normal curvature. NEURO: Mental Status AAOx4 - alert to person, place, time, events No facial droop, no forehead involvement. Motor: No focal weakness - strength 4-4+/5 in bilateral UEs and LEs, proximal and distal, symmetric. Sensory: sensation intact to light touch globally. Gait NT. PSYCH: euthymic, cooperative, flat affect, appropriate speech Course Vital Signs Vital signs: Vital Signs Temperature 36.9 C 11/30/23 19:52 Pulse 65 11/30/23 19:52 Respiratory Rate 16 11/30/23 19:52 Blood Pressure 223/79 H 11/30/23 19:52 Pulse Oximetry 96 11/30/23 19:52 Temperature 36.9 C 11/30/23 19:52 Temperature Source Temporal Artery Scan 11/30/23 19:52 Pulse 65 11/30/23 19:52 Respiratory Rate 16 11/30/23 19:52 Blood Pressure 223/79 H 11/30/23 19:52 Pulse Oximetry 96 11/30/23 19:52 Oxygen Delivery Method Room Air 11/30/23 19:52 Oxygen Flow Rate 0 11/30/23 19:52 Pain Level 0 11/30/23 19:52 Medical Decision Making This dictation utilizes [id number] dictation software and may contain unedited grammatical errors. 73 year-old female presents to ED today by EMS with a chief complaint of shaky, weak and nauseous since last night, has not eaten today, history of seizures, son called EMS. Quality described as states she just feels shaky weak and nauseous, has a very curious flat affect, no radiation to chest pain, shortness of breath, severe sudden onset headache or vision changes, I do question the patient's reliability with her affect. Severity is described as moderate/10. Palliating factors include nothing specific. Provoking factors include nothing specific. Events leading up to the incident/Associated Symptoms: Patient states that she is been out of her Ativan for 2 days, is on topiramate for other antiepileptic at low dose. Patients' medical history: CVA, recurrent UTI, IBS, chronic constipation, hypomagnesemia, fibromyalgia, movement disorder, CKD stage III, anemia, chronic pain syndrome. Family and social history: noncontributory. Pertinent exam findings / vital signs include very hypertensive, flat affect, questionable diffuse weakness, unsure of patient's baseline, benign abdomen, no adventitious lung sounds. Differential / pathologies of concern include wide differential - sepsis, neurologic change, PNA, UTI, electrolyte abnormality, HTN-sive emergency. Diagnostic studies of: -CBC, CMP, lactate, troponin I, BNP, TSH, VBG, CK, lipase, magnesium, procalcitonin, ammonia, EKG, XR chest portable, CTA head and neck. -CBC shows no leukocytosis, baseline anemia at 9.8 past values lower -Lactate negative, procalcitonin negative-do not suspect sepsis -CMP only shows a mild increase in BUN with normal creatinine, glucose 91 -CK negative, do not suspect seizure activity -Troponin negative with reliable onset -BNP mildly elevated at 554, no priors for comparison -TSH within normal limits -Lipase within normal limits -Ammonia negative -UA negative -Blood cultures pending -EKG sinus rhythm with P waves followed by narrow complex QRS, questionable left axis deviation, normal QT, slightly prolonged ND interval, no ST elevations or reciprocal depressions, no T wave abnormalities possible LVH -CTA & CXR pending at time of sign-out Interventions of: -IVF NS, ABX empiric choice pending UA/imaging studies. ED Course/Assessment/Plan: 73-year-old female presents by EMS her son called the ambulance for weakness, nausea, patient states she has not had anything to eat today, she is diaphoretic and appears quite frail and has an odd affect and mild diffuse weakness but no focal neurodeficit, she is very hypertensive on arrival and appears somewhat dry so I am giving her IV fluids, her septic workup is negative, she has baseline anemia, she has a history of seizure disorder but there is no elevation of lactate or CK making a unwitnessed tonic-clonic seizure unlikely, she has mildly elevated BNP at 554 with a negative troponin and a benign EKG, she has benign abdomen and no elevation of lipase. As her infectious workup is not definitive at this time I am ruling out any neurologic cause of her weakness with a CTA of her head, she does have history of past stroke as well as an x-ray of her chest to rule out any kind of pulmonary edema or pneumonia. Patient got her CTA, then refused XR, states she wants to go home. Patient is signing out against medical advice. I advised her that we would not be ruling out any neurologic cause of her possible weakness, or a possible pneumonia with negative work-up for other causes of weakness. Patient acknowledged these risks and potentially fatal diagnoses undiagnosed due to refusal. This was witnessed by receiving associate store and patient signed out against medical advice. Patient was able to identify place, time, events, and repeat back to me that she was consenting to leaving against medical advice and verbally acknowledged that we were not ruling out potentially fatal diagnoses. I encouraged the patient to hydrate at home and return by EMS for any failure to improve or any emergent concerns. She did sign out against medical advice. Findings not consistent with overt stroke, sepsis, AROLDO of HTN-sive emergency, elevated troponin, EKG changes, UTI. Disposition of Weakness. Patient verbalized understanding of the plan and return to ED criteria and engaged in shared decision making. Medical Records Medical records reviewed: Yes I reviewed the patient's medical records. Imaging Data Radiologic Study: Attestation: I personally reviewed and interpreted this imaging study as follows: Imaging: X-Ray My impression: patient refused Radiologic Study #2: Attestation: I personally reviewed and interpreted this imaging study as follows: Imaging: CT Scan My impression: patient signed out against medical advice without results. Lab Data Lab results reviewed: Yes I reviewed the patient's lab results. Labs: 11/30/23 21:20 Blood Blood Culture - Pending 11/30/23 21:10 Blood Blood Culture - Pending Laboratory Tests Range/Units 11/30/23 11/30/23 11/30/23 20:30 21:10 21:35 WBC (4.4-10.8) 10^3/uL 4.71 RBC (3.93-5.22) 10^6/uL 3.76 L Hgb (11.2-15.7) g/dL 9.8 L Hct (36.0-46.0) % 31.2 L MCV (80-95) fL 83 MCH (27.0-33.0) pg 26.1 L MCHC (32.0-36.0) % 31.4 L RDW (11.7-14.6) % 16.6 H Plt Count (130-400) 10^3/uL 285 MPV (8.0-11.0) fL 9.6 Immature Gran % % 0.4 Neutrophils % % 64.9 Lymphocytes % % 23.1 Monocytes % % 10.2 Eosinophils % % 0.8 Basophils % % 0.6 Nucleated RBC % (0.0-0.3) % 0.0 Absolute Neutrophils (1.2-6.7) 10^3/uL 3.05 Absolute Lymphocytes (1.2-3.4) 10^3/uL 1.09 L Absolute Monocytes (0.1-0.8) 10^3/uL 0.48 Absolute Eosinophils (0.0-0.7) 10^3/uL 0.04 Absolute Basophils (0.0-0.2) 10^3/uL 0.03 VBG pH (7.31-7.41) 7.38 VBG pCO2 (41-51) mmHg 50 VBG pO2 mmHg 27 VBG HCO3 (23-28) mmol/L 30 H VBG Total CO2 (24-29) mmol/L 28 VBG O2 Saturation % 47 VBG Base Excess (-2-3) mmol/L 4 H VBG Lactate (0.6-1.4) mmol/L 0.9 Sodium (136-145) mmol/L 142 Potassium (3.5-5.1) mmol/L 4.5 Chloride (98-107) mmol/L 105 Carbon Dioxide (21.0-32.0) mmol/L 29.9 Anion Gap (3-11) mmol/L 7.1 BUN (7-18) mg/dL 23 H Creatinine (0.55-1.02) mg/dL 1.0 Est GFR (CKD-EPI 2020) (mL/min/1.73m2) 58.75 Glucose (74-106) mg/dL 91 Calcium (8.5-10.1) mg/dL 9.6 Magnesium (1.8-2.4) mg/dL 1.9 Total Bilirubin (0.2-1.0) mg/dL 0.6 AST (15-37) U/L 36 ALT (14-59) U/L 39 Alkaline Phosphatase (46-116) U/L 116 Ammonia Cancelled Creatine Kinase (26-192) U/L 69 Troponin I (< or =60) ng/L < 50 NT-Pro-B Natriuret Pep (<300) pg/mL 554 H Total Protein (6.4-8.2) g/dL 8.7 H Albumin (3.4-5.0) g/dL 3.9 Lipase (16-77) U/L 18 Procalcitonin ng/mL < 0.1 TSH (0.36-3.74) uIU/mL 0.68 Urine Color (Yellow) Yellow Urine Clarity (Clear) Clear Urine pH (5-8) 5.5 Ur Specific [place] (1.005-1.025) 1.025 Urine Protein (Neg-Trace) mg/dL Negative Urine Ketones (Negative) mg/dL Negative Urine Blood (Negative) Negative Urine Nitrite (Negative) Negative Urine Bilirubin (Negative) Negative Urine Urobilinogen (Up to 0.2) mg/dL 0.2 Ur Leukocyte Esterase (Negative) Negative Urine Glucose (Negative) mg/dL Negative Quality:SDOH Health Related Social Needs: No Data to Display PFSH All Active Problems (Updated 11/30/23 @ 22:07 by DARIO Ramos) Weakness (Acute) Pneumonia (Acute) Bilateral sensorineural hearing loss (Acute) Impacted cerumen of both ears (Acute) Left rotator cuff tear arthropathy (Acute) Primary osteoarthritis, left shoulder (Acute) Hypomagnesemia (Acute) Recurrent UTI (urinary tract infection) (Acute) Tendonitis of left rotator cuff (Acute) Depression (Chronic) Goiter (Acute) Fibromyalgia (Chronic) KWAME (obstructive sleep apnea) (Chronic) Chronic pain (Chronic) Movement disorder (Acute) Muscle weakness (Acute) Left elbow contusion (Acute) Left displaced femoral neck fracture (Acute 09/16/20) Chronic renal insufficiency, stage III (moderate) (Acute) Anemia (Chronic) Chronic pain syndrome (Chronic) Hypertension (Chronic) Fracture of left hip (Acute) Osteoarthritis of right knee (Acute) Steroid injection: 04/05/2020 Has had previous viscosupplementation injections. Primary osteoarthritis of left knee (Chronic) We will see the patient back in 4-1/2 months for possible repeat Synvisc 1 in her left knee would consider x-ray in her right knee if she is still significantly symptomatic Medical History CVA (cerebral vascular accident) Recurrent UTI IBS (irritable bowel syndrome) Urge incontinence Chronic constipation Chronic insomnia Surgical History History of total left hip replacement (09/17/20) As treatment for a femoral neck fracture (DOI: 09/16/2020) History of back surgery Hx of cholecystectomy Social History Smoking/Tobacco Use Status: Never Smoking risk assessment performed?: Yes Alcohol Intake: never Drug use: Never Substance use type: does not use Housing: house Do you feel safe at home: Yes Do you feel safe in your relationship?: Yes
[2023-11-30 20:10] VITALS: BP 221/88; PULSE 61; PULSE 65; RESP 13; O2SAT 97
[2023-11-30 20:11] VITALS: PULSE 67; RESP 14; RESP 21; O2SAT 96
[2023-11-30 20:37] LABS: Abs Immature Grans 0.02 10^3/uL (0.0-0.06); Absolute Basophil Count 0.03 10^3/uL (0.0-0.2); Absolute Eosinophil Count 0.04 10^3/uL (0.0-0.7); Absolute Lymphocyte Count 1.09 10^3/uL (1.2-3.4); Absolute Monocyte Count 0.48 10^3/uL (0.1-0.8); Absolute Neutrophil Count 3.05 10^3/uL (1.2-6.7); BE (Venous) 4 mmol/L (-2-3); Basophils % 0.6 %; Eosinophils % 0.8 %; HCO3 (Venous) 30 mmol/L (23-28); HCT 31.2 % (36.0-46.0); HGB 9.8 g/dL (11.2-15.7); Immature Grans % 0.4 %; Lymphocytes % 23.1 %; MCH 26.1 pg (27.0-33.0); MCHC 31.4 % (32.0-36.0); MCV 83 fL (80-95); MPV 9.6 fL (8.0-11.0); Monocytes % 10.2 %; Neutrophils % 64.9 %; O2 Sat (Venous) 47 %; Platelet Count 285 10^3/uL (130-400); RBC 3.76 10^6/uL (3.93-5.22); RDW 16.6 % (11.7-14.6); RDW-SD 50.1 fL; TCO2 (Venous) 28 mmol/L (24-29); WBC 4.71 10^3/uL (4.4-10.8); pCO2 (Venous) 50 mmHg (41-51); pH (Venous) 7.38 (7.31-7.41); pO2 (Venous) 27 mmHg
[2023-11-30 20:38] LABS: Lactate 0.9 mmol/L (0.6-1.4)
[2023-11-30 21:04] LABS: ALT 39 U/L (14-59); AST 36 U/L (15-37); Albumin 3.9 g/dL (3.4-5.0); Alkaline Phosphatase 116 U/L (46-116); Anion Gap 7.1 mmol/L (3-11); BUN 23 mg/dL (7-18); Bilirubin, Total 0.6 mg/dL (0.2-1.0); CO2 29.9 mmol/L (21.0-32.0); Calcium 9.6 mg/dL (8.5-10.1); Chloride 105 mmol/L (98-107); Creatine Kinase 69 U/L (26-192); Estimated GFR 58.75 (mL/min/1.73m2); Glucose 91 mg/dL (74-106); Lipase 18 U/L (16-77); Magnesium 1.9 mg/dL (1.8-2.4); NT-proBNP 554 pg/mL (<300); Potassium 4.5 mmol/L (3.5-5.1); Sodium 142 mmol/L (136-145); TSH (W/Ref FT4) 0.68 uIU/mL (0.36-3.74); Total Protein 8.7 g/dL (6.4-8.2); Troponin I < 50 ng/L (< or =60)
[2023-11-30 21:09] LABS: Procalcitonin < 0.1 ng/mL
[2023-11-30] MEDS: Omnipaque 350 MG/ML 100 ML BTL 85 ML IJ (21:41)
[2023-11-30 21:43] LABS: Bilirubin Negative (Negative); Blood Negative (Negative); Clarity Clear (Clear); Glucose Negative (Negative); Ketones Negative (Negative); Leukocyte Esterase Negative (Negative); Nitrite Negative (Negative); Specific Gravity 1.025 (1.005-1.025); Urobilinogen 0.2 mg/dL (Up to 0.2); pH 5.5 (5-8)
[2023-11-30] MEDS: Normal Saline - Diluent 50 ML VIAL IJ (21:43)
[2023-11-30 21:47] LABS: Ammonia < 10 umol/L (11-32)
--- NOTE | 2023-11-30 22:34 | DI.VRAD_ITS ---
PROCEDURE INFORMATION: Exam: CTA Head Without And With Contrast, Arteriography Exam date and time: 11/30/2023 9:52 PM Age: 73 years old Clinical indication: Visual disturbance; Type not specified; Additional info: Vision changes TECHNIQUE: Imaging protocol: Computed tomographic angiography of the head without and with contrast. Exam focused on the arteries. 3D rendering (Not supervised by radiologist): MIP and/or 3D reconstructed images were created by the technologist. Contrast material: OMNI 350; Contrast volume: 100 ml; Contrast route: INTRAVENOUS (IV); COMPARISON: CT HEAD WO 07/20/2023 8:46 AM FINDINGS: ANTERIOR CIRCULATION: Right internal carotid artery: Intracranial segment is patent with no significant stenosis or occlusion. No aneurysm. Right middle cerebral artery: No occlusion or significant stenosis. No aneurysm. 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 No aneurysm. Left internal carotid artery: Intracranial segment is patent with no significant stenosis. No aneurysm. Left middle cerebral artery: No occlusion or significant stenosis. No aneurysm. Left anterior cerebral artery: No occlusion or significant stenosis. No aneurysm. POSTERIOR CIRCULATION: Right vertebral artery: No occlusion or significant stenosis. No aneurysm. Left vertebral artery: No occlusion or significant stenosis. No aneurysm. Basilar artery: No occlusion or significant stenosis. No aneurysm. Right posterior cerebral artery: No occlusion or significant stenosis. No aneurysm. Left posterior cerebral artery: No occlusion or significant stenosis. No aneurysm. HEAD: Brain: Cerebral atrophy and probable underlying microvascular ischemic changes are evident with a superimposed chronic ischemic insult seen as confluent cystic encephalomalacia along the posteroinferior margin of the right occipital lobe. No intracranial mass, acute transcortical infarction or recent intracranial hemorrhage is detected. Cerebral ventricles: No midline shift or hydrocephalus. Bones: No acute fracture. Paranasal sinuses: Grossly clear throughout. Mastoid air cells: Grossly clear bilaterally. Soft tissues: Unremarkable. IMPRESSION: 1. 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 2. No large vessel stenosis or occlusion detected involving the remaining major branches of the anterior or posterior intracranial circulation. 3. Cerebral atrophy and chronic multifocal ischemic changes with no acute transcortical infarction, recent intracranial hemorrhage or hydrocephalus evident. PROCEDURE INFORMATION: Exam: CTA Neck Without And With Contrast Exam date and time: 11/30/2023 9:52 PM Age: 73 years old Clinical indication: Visual disturbance; Type not specified; Additional info: Vision changes TECHNIQUE: Imaging protocol: Computed tomographic angiography of the neck without and with contrast. Exam focused on the cervical segments of the vasculature. 3D rendering (Not supervised by radiologist): MIP and/or 3D reconstructed images were created by the technologist. Contrast material: OMNI 350; Contrast volume: 100 ml; Contrast route: INTRAVENOUS (IV); COMPARISON: CT HEAD WO 07/20/2023 8:46 AM FINDINGS: Right common carotid artery: No stenosis. No dissection or occlusion. Right internal carotid artery: No stenosis of the extracranial segment. No dissection or occlusion. Right external carotid artery: No occlusion or stenosis of the origin. Left common carotid artery: No stenosis. No dissection or occlusion. Left internal carotid artery: No stenosis of the extracranial segment. No dissection or occlusion. Left external carotid artery: No occlusion or stenosis of the origin. Right vertebral artery: No stenosis. No dissection or occlusion. Left vertebral artery: No stenosis. No dissection or occlusion. Soft tissues: Normal. No significant soft tissue swelling. Bones/joints: No acute fracture. IMPRESSION: No evidence of 50% or greater stenosis involving the cervical segments of the right or left internal carotid arteries by NASCET criteria. REFERENCES: NASCET CRITERIA. The degree of stenosis in the cervical segment of the internal carotid artery is based on NASCET criteria. Normal is no stenosis. Mild is less than 50% stenosis. Moderate is 50-69% stenosis. Severe is 70% to 99% stenosis. Total occlusion is no detectable patent lumen. Dictated and Authenticated by: Hiren Ortega MD. Ordering:ROSELIA Madison MD
--- NOTE | 2023-12-03 08:37 | NUR.NOTE ---
Accessed chart to delete chest xray order. Pt declined xray and left AMA. Per [place]. Nursing Note:
== END 2023-11-30 22:21 | disposition left against medical advice (07) ==
PROVIDERS: Emergency Provider Physician Assistant; PCP Family Medicine
DX: R53.1 Weakness (principal); I10 Essential (primary) hypertension; R94.31 Abnormal electrocardiogram [ECG] [EKG]; G40.909 Epilepsy, unspecified, not intractable, without status epilepticus; Z79.01 Long term (current) use of anticoagulants; Z86.73 Personal history of transient ischemic attack (TIA), and cerebral infarction without residual deficits; Z53.29 Procedure and treatment not carried out because of patient's decision for other reasons
CPT/HCPCS: 70496; 70498; 80053; 82550; 82805; 82962; 83690; 84145; 87040; 93005; 99285; 81003; 82140; 83605; 83735; 83880; 84443; 84484; 85025; 93010; 99284; J3490

== ENCOUNTER 2024-01-01 18:42 | Outpatient (REF) | payer MEDICARE, MEDICAID, SELFPAY | END 2024-01-01 18:43 | disposition home or self-care (01) | LOC: LBN 18:42 | PROVIDERS: PCP Family Medicine; Visit Provider Nurse Practitioner Family | DX: N30.01 Acute cystitis with hematuria (principal) | CPT/HCPCS: 87077; 87086; 87186 ==

== ENCOUNTER 2024-01-21 18:29 | Outpatient (REF) | payer MEDICARE, MEDICAID, SELFPAY | END 2024-01-21 18:30 | disposition home or self-care (01) | LOC: NCHCN 18:29 | PROVIDERS: PCP Family Medicine; Visit Provider Family Medicine | DX: R30.0 Dysuria (principal) | CPT/HCPCS: 87086 ==

== ENCOUNTER 2024-02-04 16:31 | Outpatient (REF) | payer MEDICARE, MEDICAID, SELFPAY | END 2024-02-04 16:32 | disposition home or self-care (01) | LOC: LBN 16:31 | PROVIDERS: PCP Family Medicine; Visit Provider Nurse Practitioner Family | DX: N30.01 Acute cystitis with hematuria (principal) | CPT/HCPCS: 87077; 87086; 87186 ==

== ENCOUNTER 2024-02-29 00:21 | Emergency (ER) | payer MEDICARE, MEDICAID, SELFPAY ==
[2024-02-29] VITALS (12 sets, daily range): BP systolic 137–169; BP diastolic 69–89; PULSE 60–69; RESP 10–18; TEMP 37; O2SAT 93–97
--- NOTE | 2024-02-29 00:15 | RT.EKG_ITS ---
APPROVED REPORT Exam: Resting ECG Reason for Exam: TRAUMATIC CHEST PAIN Patient Location: E HR:75 bpm ECG Measurements Heart Rate 75 AXIS MS 188 P 89 QRSd 89 QRS 25 QT 400 T 91 QTc 447 Conclusion Sinus rhythm...normal P axis, V-rate 60- 99 Anteroseptal infarct, old...Q >40mS, V1-V2 Physician: no stemi
--- NOTE | 2024-02-29 00:30 | DI.CT_ITS ---
Exam(s) CT CHEST/ABD/PEL WO EXAM: CT CHEST/ABD/PEL WO CLINICAL HISTORY: fell, hit chest, has sternal/back/epigastric pain. TECHNIQUE: Imaging Protocol: Axial computed tomography images with coronal and sagittal reformatted images were created and reviewed CONTRAST MATERIAL: Intravenous: Omnipaque 350 Contrast volume:100 ml Oral: no COMPARISON: CT CT CHEST/ABD/PEL W from 07/20/[address] BRAIN NECK CTA from 11/30/2023 FINDINGS: CHEST: Tracheobronchial tree: Patent. Pulmonary parenchyma: No consolidation or dominant measurable mass. Dependent changes. Pleura: No effusion or pneumothorax. Mediastinum: Small hiatal hernia. Aorta: Thoracic portion non-dilated. Pulmonary arteries: No visible emboli. Heart: Mildly enlarged. No pericardial effusion. Bones: Scoliosis and degenerative changes. No lytic or blastic lesions.No compression fractures. Soft tissues: Unremarkable. ABDOMEN and PELVIS: Liver: Normal density. No measurable mass. Gallbladder and biliary tract: Status post cholecystectomy. No biliary dilatation. Pancreas: Normal density, no abnormal calcifications or inflammatory process. Spleen: Normal. Kidneys: Normal size, contour and axis. No radiodense stones. No obstructive uropathy. No suspicious masses seen. Adrenal glands: No masses seen. Aorta: Abdominal portion non-dilated. Lymph nodes: Within normal limits. Soft tissues: Unremarkable. Bladder: Mildly obscured by artifact. Air bubble noted. Correlate with recent catheterization. Bowel: No obstruction or bowel wall thickening. Diverticulosis. Increased quantity of stool. Peritoneal cavity: No ascites. No focal collection. No mesenteric inflammatory response. No free ai r. Bones: Left hip prosthesis. Scoliosis and degenerative changes. Prior surgery lumbar spine. No acu te fractures. Reproductive organs: Within normal limits. IMPRESSION: No acute abnormality in the chest, abdomen or pelvis. RADIATION DOSE DELIVERED: 405mGy.cm Total DLP DATA REPOSITORY: All CT scans at this facility are submitted to the National Radiology Data Registry (NRDR) Dose Index Registry (DIR) with the [employer] (A[employer]). RADIATION OPTIMIZATION: All CT scans at this facility use at least one of these dose optimization te chniques: automated exposure control; mA and/or kV adjustment per patient size (includes targeted exa ms where dose is matched to clinical indication); or iterative reconstruction.
--- NOTE | 2024-02-29 00:32 | ED.GENADUL_ITS ---
Discharge Plan Disposition Patient Disposition: Home Condition: Good Discharge Details Chief Complaint: Fall/Non TraumaCriteria Clinical Impression: Acute UTI, Falls Primary Care Provider: Marixa Kurtz ED Provider: Los Carter Home Meds and New Rx's Prescriptions: No Action sertraline 50 mg tablet 75 mg PO DAILY trazodone 100 mg tablet 200 mg PO HS PRN PRN meloxicam 15 mg tablet 15 mg PO DAILY aspirin 81 mg tablet,delayed release (DR/EC) 81 mg PO DAILY topiramate [Topamax] 25 mg tablet 25 mg PO DAILY omeprazole 40 MG capsule,delayed release(DR/EC) 40 mg PO DAILY polyethylene glycol 3350 [Miralax] 119 GM powder 17 g PO DAILY PRN PRN Patient Comments: Not on pt's updated med list ML 03/13/23 vitamin B complex Tablet 1 tab PO DAILY cholecalciferol (vitamin D3) [Vitamin D3] 25 mcg (1,000 unit) Tablet 50 mcg PO DAILY Patient Comments: Not on pt's updated med list ML 03/13/23 lorazepam 1 mg tablet 1 mg PO DAILY PRNQty: 3 0RF azithromycin 250 mg tablet See Rx Instructions .ROUTE .COMPLEX Qty: 6 0RF Rx Instructions: For 250 mg dose pack: take 500 mg today (day 1), then 250 mg for 4 days (days 2-5) lorazepam [Ativan] 1 mg tablet 1 mg PO DAILY PRNQty: 10 0RF oxycodone [OxyContin] 40 mg tablet,oral only,ext.rel.12 hr 40 tab PO BID Patient Comments: TAKE ONE TABLET BY MOUTH TWICE A DAY sennosides [senna] 8.6 mg tablet 8.6 mg PO QPM amlodipine 10 mg tablet 10 mg PO DAILY prochlorperazine maleate 5 mg tablet 5 mg PO BID PRN PRN Patient Comments: TAKE 1 TABLET BY MOUTH 2 TIMES DAILY NEEDED acetylcysteine 600 mg capsule 1,200 mg PO DAILY Patient Comments: TAKE TWO CAPSULES BY MOUTH TWICE A DAY DIRECTED naloxone 4 mg/actuation spray,non-aerosol 4 mg INTRANASAL ONCE PRN Patient Comments: ADMINISTER 1 SPRAY INTO ONE NOSTRIL A SINGLE DOSE NEEDED FOR EXCESSIVE SEDATION Magnesium (oxide/AA chelate) 300 mg capsule 1 cap PO BID oxycodone [OxyContin] 40 mg tablet,oral only,ext.rel.12 hr 20 mg PO QID Discharge Instructions Instructions: Urinary tract infections in adults, Preventing falls in adults Additional Instructions: At this time you still have a urinary tract infection. Please take the antibiotic that you are prescribed yesterday. Please drink cranberry juice or cranberry concentrate to help with your UTI. You have been given an additional dose of intramuscular ceftriaxone. Please follow-up closely with your primary care provider for reassessment. If you notice any worsening of your symptoms, or any new symptoms such as vomiting, diarrhea, fever, chills, shortness of breath, chest pain, numbness, weakness, or fainting , please return immediately to the emergency department for reevaluation. Please follow up with your primary care provider as soon as possible for reassessment and reevaluation. As always, it was a pleasure participating in your medical care today. Referrals: Marixa Kurtz [Primary Care Provider] - [facility] General Date/Time Provider Initiated Documentation: 02/29/24 00:30 . 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 Patient states that she was by her bed and tried to get out of bed when she fell and slipped and her chest landed on the bedside table. She did not hit her head. She denies any loss of consciousness. The caregiver was there and saw it happen. She is not on any blood thinners. She admits to anterior chest pain, epigastric pain and also generalized back pain in the upper back. She denies any vision changes, numbness tingling or weakness. No trauma to her other extremities. No other complaints at this time. Related Data Home Medications ?Medication ?Instructions ?Recorded ?Confirmed omeprazole 40 mg capsule,delayed 40 mg PO DAILY 05/19/14 02/29/24 release polyethylene glycol 3350 17 17 g PO DAILY PRN PRN 05/19/14 02/29/24 gram/dose oral powder (Miralax) cholecalciferol (vitamin D3) 25 50 mcg PO DAILY 01/05/20 02/29/24 mcg (1,000 unit) tablet (Vitamin D3) vitamin B complex 1 tab PO DAILY 01/05/20 02/29/24 sertraline 50 mg tablet 75 mg PO DAILY 10/19/20 02/29/24 trazodone 100 mg tablet 200 mg PO HS PRN PRN 01/03/21 02/29/24 aspirin 81 mg tablet,delayed 81 mg PO DAILY 06/23/21 02/29/24 release meloxicam 15 mg tablet 15 mg PO DAILY 08/08/21 02/29/24 lorazepam 1 mg tablet (Ativan) 1 mg PO DAILY PRN #10 tabs 10/23/21 02/29/24 oxycodone 40 mg tablet,crush 40 tab PO BID 01/13/22 02/29/24 resistant,extended release 12 hr (OxyContin) amlodipine 10 mg tablet 10 mg PO DAILY 01/14/22 02/29/24 prochlorperazine maleate 5 mg 5 mg PO BID PRN PRN 01/14/22 02/29/24 tablet sennosides 8.6 mg tablet (senna) 8.6 mg PO QPM 01/14/22 02/29/24 topiramate 25 mg tablet (Topamax) 25 mg PO DAILY 08/06/22 02/29/24 lorazepam 1 mg tablet 1 mg PO DAILY PRN #3 tabs 02/02/23 02/29/24 acetylcysteine 600 mg capsule 1,200 mg PO DAILY 07/16/23 02/29/24 magnesium oxide-magnesium amino 1 cap PO BID 07/16/23 02/29/24 acid chelate 300 mg capsule (Magnesium (oxide/AA chelate)) naloxone 4 mg/actuation nasal spray 4 mg intranasal ONCE PRN 07/16/23 02/29/24 oxycodone 40 mg tablet,crush 20 mg PO QID 07/16/23 02/29/24 resistant,extended release 12 hr (OxyContin) nitrofurantoin 100 mg PO BID 02/29/24 02/29/24 monohydrate/macrocrystals 100 mg capsule Previous Rx's ?Medication ?Instructions ?Recorded lorazepam 1 mg tablet (Ativan) 1 mg PO DAILY PRN #10 tabs 10/23/21 lorazepam 1 mg tablet 1 mg PO DAILY PRN #3 tabs 02/02/23 Allergies Allergy/AdvReac Type Severity Reaction Status Date / Time sulfamethoxazole (From Allergy Diarrhea Verified 02/29/24 00:29 Bactrim) trimethoprim (From Bactrim) Allergy Diarrhea Verified 02/29/24 00:29 morphine AdvReac Intermediate Psychosis Unverified 02/29/24 00:29 baclofen AdvReac Unknown Unknown Unverified 02/29/24 00:29 chlorthalidone AdvReac Unknown Unknown Unverified 02/29/24 00:29 codeine AdvReac Unknown Unknown Unverified 02/29/24 00:29 dextromethorphan AdvReac Unknown Unknown Unverified 02/29/24 00:29 gabapentin (From Neurontin) AdvReac Unknown Unknown Unverified 02/29/24 00:29 hydrochlorothiazide AdvReac Unknown Unknown Unverified 02/29/24 00:29 pregabalin AdvReac Unknown Dopey Unverified 02/29/24 00:29 General Stated Complaint: Fall/Non TraumaCriteria LOLITA: 3 Review of Systems All systems reviewed & are unremarkable except as noted in HPI and below Exam Narrative Exam Narrative: 1.Const: Well-nourished, Well-developed, appearing stated age 2.Eyes: PERRL, no conjunctival injection, and symmetrical lids. 3.ENT: Atraumatic external nose and ears. Moist MM. Neck: Symmetric, trachea midline, No thyromegaly. Patient demonstrates intact dentition with no signs of tooth avulsion or fracture, no signs of jaw deformity, no evidence of a LeFort's fracture, with an intact palate, nose and orbital region. There is no evidence of a nasal septal hematoma. No proptosis. Jaw closes symmetrically. Airway is clear. 4.CVS: +S1/S2, No murmurs or gallops. Peripheral pulses 2+ and equal in all extremities. Brisk capillary refill in all extremities. Mild tenderness over the xiphoid process and lower sternum. 5.RESP: Unlabored respiratory effort. Clear to auscultation bilaterally. No wheezes rales or rhonchi 6.GI: Soft, mild epigastric tenderness on palpation. Nondistended, No hepatosplenomegaly. No guarding or rebound. 7.MSK: Normocephalic/Atraumatic, Extremities w/o deformity or ttp No cyanosis or clubbing, Normal movement of all extremities. No focal tenderness for the upper or lower extremities. No midline tenderness to palpation over the CTLS spine. Normal ROM in flexion, extension, side bend, and rotation. Patient has +5 out of 5 strength in the lower extremities in dorsiflexion and plantarflexion, knee flexion and extension, hip flexion and extension. Normal strength for dorsiflexion and plantar flexion of the great toe bilaterally. There is +2 over 2 dorsalis pedis pulses bilaterally. There is normal sensation to the skin with light touch at the foot, knee, and hip. Normal saddle sensation. Good sensation over the deep sural nerve area bilaterally. Reflexes are +2 over 4 in the patellar reflex bilaterally. +5 out of 5 strength in the medial, ulnar, radial nerve distribution bilaterally in the hands as well as intact light touch sensation to these dermatomes on the hands 8.Skin: Warm, Dry. No rashes or lesions. 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 Sensation grossly intact, no focal neurologic deficits. 10.Psych: (AAO) x3. Appropriate mood and affect Course Vital Signs Vital signs: Vital Signs Temperature 37.0 C 02/29/24 00:22 Pulse 68 02/29/24 00:22 Respiratory Rate 18 02/29/24 00:22 Blood Pressure 156/89 H 02/29/24 00:22 Pulse Oximetry 96 02/29/24 00:22 Temperature 37.0 C 02/29/24 00:22 Temperature Source Oral 02/29/24 00:22 Pulse 69 02/29/24 00:25 Respiratory Rate 18 02/29/24 00:22 Respiratory Effort Normal, Non-Labored 02/29/24 00:26 Blood Pressure 156/89 H 02/29/24 00:25 Blood Pressure Mean 114 02/29/24 00:25 Blood Pressure Position Supine 02/29/24 00:22 Pulse Oximetry 95 02/29/24 00:30 Oxygen Delivery Method Room Air 02/29/24 00:22 Oxygen Flow Rate 0 02/29/24 00:22 Pain Level 8 02/29/24 00:22 Medical Decision Making 73-year-old female with a past medical history of depression, CVA, irritable bowel syndrome fibromyalgia, obstructive sleep apnea, chronic renal insufficiency, hypertension, who lives alone but 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 Patient states that she was by her bed and tried to get out of bed when she fell and slipped and her chest landed on the bedside table. She did not hit her head. She denies any loss of consciousness. The caregiver was there and saw it happen. She is not on any blood thinners. She admits to anterior chest pain, epigastric pain and also generalized back pain in the upper back. She denies any vision changes, numbness tingling or weakness. No trauma to her other extremities. No other complaints at this time. Exam demonstrates well-appearing stable female, no signs of major trauma. No midline cervical thoracic or lumbar spine tenderness. Mild reproducible tenderness over the lower sternum xiphoid process as well as the epigastric abdomen. She denies vomiting or diarrhea. No fever or chills. No focal weakness or neurologic deficit to suggest stroke. Patient and EMS do admit that the patient falls quite regularly at home, which is 1 component of why she has a home hospital nursing assistant. With the patient's sternal tenderness as well as abdominal tenderness I am concerned for potential acute traumatic process. Will get CT imaging, give Tylenol for pain control, gently rehydrate monitor closely and reassess. No tenderness, neurologic deficit or signs of trauma to the head or neck. No indication for imaging there. Patient recalls the entire event and denies any trauma to the head. 2:[address] scan results have returned, no evidence of acute process or trauma. Laboratory workup demonstrates stability. Hemoglobin is 9.6 which is at baseline, no significant white count or bandemia. Electrolytes normal, creatinine slightly increased at 1.2, GFR 24. Patient is drinking oral fluids well here. Lipase normal. Still pending urinalysis. Patient otherwise feels stable. Family is at bedside. 3:11 AM Urinalysis has come back positive. Med reconciliation was confirmed, and the patient is on nitrofurantoin at this time. Records were reviewed, and no notes can be seen, however patient does state that she went to urgent care 2 days ago and she had a UTI then and was prescribed a medication. Son at bedside was not aware of this. Patient states that it was with her caregiver. Previous cultures revealed pansensitive E. coli. Will give a dose of IM ceftriaxone and recommend continuation of the nitrofurantoin. Patient is otherwise doing well. She is hemodynamically stable. CT imaging negative for acute process or signs of trauma. Patient stable for discharge. Family agrees with plan. I have extensively reviewed the treatment plan and discharge instructions with the patient and their family. I have addressed all patient concerns at this time. The patient and family was made aware of what symptoms to monitor for that would warrant a return to the emergency department. Discussed the plan with the patient and family, they demonstrate verbal understanding and agreement with our assessment and plan at this time. The documentation in this chart was dictated using [employer] dictation software. Please excuse any dictation errors. FINDINGS: Thyroid: Multiple hypodense thyroid nodules measuring to 9 mm in the left thyroid lobe. Lungs: Atelectatic changes in the dependent portions bilateral lower lobes. Pleural spaces: Unremarkable. No pneumothorax. No pleural effusion. Heart: Unremarkable. No cardiomegaly. No pericardial effusion. Coronary arteries: Moderate coronary calcifications. Lymph nodes: Unremarkable. No enlarged lymph nodes. Vasculature: Aortic arch calcifications. Diaphragm: Small hiatal hernia. Bones/joints: Mild curvature of the thoracic spine convex to the right. Soft tissues: Unremarkable. IMPRESSION: No acute posttraumatic changes in the chest. FINDINGS: Liver: Normal. No mass. Gallbladder and biliary ducts: Post cholecystectomy. Pancreas: Normal. No ductal dilation. Spleen: Normal. No splenomegaly. Adrenal glands: Normal. No mass. Kidneys and ureters: Normal. No hydronephrosis. Stomach and bowel: There is diverticulosis of the sigmoid colon with no surrounding inflammatory changes suggest diverticulitis. No bowel dilatation. Appendix: No evidence of appendicitis. Intraperitoneal space: Unremarkable. No free air. No significant fluid collection. Vasculature: Vascular calcifications. Pelvic phleboliths. Lymph nodes: Unremarkable. No enlarged lymph nodes. Urinary bladder: Unremarkable as visualized. Reproductive: Unremarkable as visualized. Bones/joints: Post left hip arthroplasty. Mild degenerative disease of bilateral sacroiliac joints. Mild curvature of the lumbar spine convex to the left. Moderate degenerative disease of the right hip joint. Mild anterolisthesis of L3 over L4 due to bilateral facet joint arthropathy. No acute fracture. No compression deformity. Soft tissues: Unremarkable. IMPRESSION: No acute intra-abdominal posttraumatic changes. Thank you for allowing us to participate in the care of your patient. Dictated and Authenticated by: Carlos Bryan MD 02/29/2024 1:28 AM Eastern Time ([place] & [place]) Quality:SDOH Health Related Social Needs: No Data to Display PFSH All Active Problems (Updated 02/29/24 @ 03:11 by Los Carter DO) Falls (Acute) Acute UTI (Acute) Pneumonia (Acute) Bilateral sensorineural hearing loss (Acute) Impacted cerumen of both ears (Acute) Left rotator cuff tear arthropathy (Acute) Primary osteoarthritis, left shoulder (Acute) Hypomagnesemia (Acute) Recurrent UTI (urinary tract infection) (Acute) Tendonitis of left rotator cuff (Acute) Depression (Chronic) Goiter (Acute) Fibromyalgia (Chronic) KWAME (obstructive sleep apnea) (Chronic) Chronic pain (Chronic) Movement disorder (Acute) Muscle weakness (Acute) Left elbow contusion (Acute) Left displaced femoral neck fracture (Acute 09/16/20) Chronic renal insufficiency, stage III (moderate) (Acute) Anemia (Chronic) Chronic pain syndrome (Chronic) Hypertension (Chronic) Fracture of left hip (Acute) Osteoarthritis of right knee (Acute) Steroid injection: 04/05/2020 Has had previous viscosupplementation injections. Primary osteoarthritis of left knee (Chronic) We will see the patient back in 4-1/2 months for possible repeat Synvisc 1 in her left knee would consider x-ray in her right knee if she is still significantly symptomatic Medical History CVA (cerebral vascular accident) Recurrent UTI IBS (irritable bowel syndrome) Urge incontinence Chronic constipation Chronic insomnia Surgical History History of total left hip replacement (09/17/20) As treatment for a femoral neck fracture (DOI: 09/16/2020) History of back surgery Hx of cholecystectomy Social History Smoking/Tobacco Use Status: Never Smoking risk assessment performed?: Yes Alcohol Intake: never Drug use: Never Substance use type: does not use Housing: house Do you feel safe at home: Yes Do you feel safe in your relationship?: Yes
[2024-02-29] MEDS: Acetaminophen 500 MG TAB 1000 MG PO (00:44)
[2024-02-29 00:47] LABS: Abs Immature Grans 0.03 10^3/uL (0.0-0.06); Absolute Basophil Count 0.03 10^3/uL (0.0-0.2); Absolute Eosinophil Count 0.06 10^3/uL (0.0-0.7); Absolute Lymphocyte Count 0.72 10^3/uL (1.2-3.4); Absolute Monocyte Count 0.67 10^3/uL (0.1-0.8); Absolute Neutrophil Count 3.97 10^3/uL (1.2-6.7); Basophils % 0.5 %; Eosinophils % 1.1 %; HGB 9.6 g/dL (11.2-15.7); Immature Grans % 0.5 %; Lymphocytes % 13.1 %; MCH 25.7 pg (27.0-33.0); MCV 83 fL (80-95); Monocytes % 12.2 %; Neutrophils % 72.6 %; RBC 3.74 10^6/uL (3.93-5.22); RDW 16.3 % (11.7-14.6); RDW-SD 49.1 fL; WBC 5.48 10^3/uL (4.4-10.8)
[2024-02-29 01:08] LABS: Prothrombin Time 10.3 sec (9.1-11.1)
[2024-02-29 01:09] LABS: ALT 12 U/L (14-59); AST 13 U/L (15-37); Albumin 3.4 g/dL (3.4-5.0); Alkaline Phosphatase 63 U/L (46-116); Anion Gap 5.2 mmol/L (3-11); BUN 24 mg/dL (7-18); Bilirubin, Total 0.26 mg/dL (0.2-1.0); CO2 30.8 mmol/L (21.0-32.0); CREATININE 1.2 mg/dL (0.55-1.02); Chloride 106 mmol/L (98-107); Estimated GFR 47.21 (mL/min/1.73m2); Glucose 102 mg/dL (74-106); Lipase 16 U/L (16-77); Potassium 3.9 mmol/L (3.5-5.1); Sodium 142 mmol/L (136-145); Total Protein 7.7 g/dL (6.4-8.2)
[2024-02-29 01:18] LABS: Calcium 9.5 mg/dL (8.5-10.1)
--- NOTE | 2024-02-29 01:30 | DI.VRAD_ITS ---
PROCEDURE INFORMATION: Exam: CT Chest Without Contrast; Diagnostic Exam date and time: 02/29/2024 12:57 AM Age: 73 years old Clinical indication: Injury or trauma; Fall; Generalized; Blunt trauma (contusions or hematomas); Injury details: Fell, hit chest, has sternal/back/epigastric pain TECHNIQUE: Imaging protocol: Diagnostic computed tomography of the chest without contrast. 3D rendering (Not supervised by radiologist): MIP and/or 3D reconstructed images were created by the technologist. COMPARISON: CT CHEST/ABD/PEL W 07/20/2023 8:50 AM FINDINGS: Thyroid: Multiple hypodense thyroid nodules measuring to 9 mm in the left thyroid lobe. Lungs: Atelectatic changes in the dependent portions bilateral lower lobes. Pleural spaces: Unremarkable. No pneumothorax. No pleural effusion. Heart: Unremarkable. No cardiomegaly. No pericardial effusion. Coronary arteries: Moderate coronary calcifications. Lymph nodes: Unremarkable. No enlarged lymph nodes. Vasculature: Aortic arch calcifications. Diaphragm: Small hiatal hernia. Bones/joints: Mild curvature of the thoracic spine convex to the right. Soft tissues: Unremarkable. IMPRESSION: No acute posttraumatic changes in the chest. PROCEDURE INFORMATION: Exam: CT Abdomen And Pelvis Without Contrast Exam date and time: 02/29/2024 12:57 AM Age: 73 years old Clinical indication: Injury or trauma; Fall; Generalized; Blunt trauma (contusions or hematomas); Injury details: Fell, hit chest, has sternal/back/epigastric pain TECHNIQUE: Imaging protocol: Computed tomography of the abdomen and pelvis without contrast. 3D rendering (Not supervised by radiologist): MIP and/or 3D reconstructed images were created by the technologist. COMPARISON: CT CHEST/ABD/PEL W 07/20/2023 8:50 AM FINDINGS: Liver: Normal. No mass. Gallbladder and biliary ducts: Post cholecystectomy. Pancreas: Normal. No ductal dilation. Spleen: Normal. No splenomegaly. Adrenal glands: Normal. No mass. Kidneys and ureters: Normal. No hydronephrosis. Stomach and bowel: There is diverticulosis of the sigmoid colon with no surrounding inflammatory changes suggest diverticulitis. No bowel dilatation. Appendix: No evidence of appendicitis. Intraperitoneal space: Unremarkable. No free air. No significant fluid collection. Vasculature: Vascular calcifications. Pelvic phleboliths. Lymph nodes: Unremarkable. No enlarged lymph nodes. Urinary bladder: Unremarkable as visualized. Reproductive: Unremarkable as visualized. Bones/joints: Post left hip arthroplasty. Mild degenerative disease of bilateral sacroiliac joints. Mild curvature of the lumbar spine convex to the left. Moderate degenerative disease of the right hip joint. Mild anterolisthesis of L3 over L4 due to bilateral facet joint arthropathy. No acute fracture. No compression deformity. Soft tissues: Unremarkable. IMPRESSION: No acute intra-abdominal posttraumatic changes. Dictated and Authenticated by: Carlos Bryan MD. Ordering:BERNABE Madison MD
[2024-02-29 02:51] LABS: Bilirubin Negative (Negative); Blood Trace-intact (Negative); Clarity Clear (Clear); Glucose Negative (Negative); Ketones Negative (Negative); Leukocyte Esterase Moderate (Negative); Nitrite Positive (Negative); Specific Gravity 1.025 (1.005-1.025); Urobilinogen 0.2 mg/dL (Up to 0.2)
[2024-02-29 02:57] LABS: Bacteria Moderate HPF (Negative); C & S Indicated? Yes; Casts Negative LPF (Negative); Crystals Negative HPF (Negative); Epithelial Cells Few HPF (Negative); Mucus Negative (Negative); RBC 0-2 HPF (0-2); WBC 20-50 HPF (0-5)
== END 2024-02-29 03:40 | disposition home or self-care (01) ==
PROVIDERS: Emergency Provider Student in an Organized Health Care Education/Training Program; PCP Family Medicine
DX: N39.0 Urinary tract infection, site not specified (principal); Z79.82 Long term (current) use of aspirin; Z86.73 Personal history of transient ischemic attack (TIA), and cerebral infarction without residual deficits; W06.XXXA Fall from bed, initial encounter; Y93.89 Activity, other specified; Y92.013 Bedroom of single-family (private) house as the place of occurrence of the external cause
CPT/HCPCS: 36415; 71250; 80053; 82962; 83690; 87077; 93005; 99285; 74176; 81003; 81015; 85025; 85610; 85730; 87086; 87186; 93010; 99284

== ENCOUNTER 2024-04-20 11:05 | Inpatient (IN) | payer MEDICARE, MEDICAID, SELFPAY ==
[2024-04-20] VITALS (77 sets, daily range): BP systolic 120–194; BP diastolic 55–133; PULSE 61–84; RESP 9–25; TEMP 36.5–37.5; O2SAT 90–97
--- NOTE | 2024-04-20 10:45 | RT.EKG_ITS ---
APPROVED REPORT Exam: Resting ECG Reason for Exam: Fall Patient Location: E HR:74 bpm ECG Measurements Heart Rate 74 AXIS LA 207 P 60 QRSd 97 QRS 37 QT 424 T [id number] QTc 472 Conclusion Sinus rhythm, rate 74 No interval abnormalities No STEMI Baseline artifact
--- NOTE | 2024-04-20 11:00 | DI.RAD_ITS ---
Exam(s) XR WRIST LT COMPLETE EXAM: XR WRIST LT COMPLETE CLINICAL HISTORY: deformity. TECHNIQUE: 2D digital imaging was performed. Three views. COMPARISON: CR XR WRIST RT COMPLETE from 04/20/2024 FINDINGS: BONES: Comminuted intra-articular fracture of the distal radius. There is some separation at the art icular surface as well as some impaction and dorsal angulation. Minimally displaced ulnar styloid fr acture also present. No bony destructive lesion is seen. JOINTS: The carpal bones are normally aligned. Severe degenerative changes at the 1st carpal metaca rpal joint with adjacent bony fragments. SOFT TISSUE: Significant swelling around wrist. IMPRESSION: Comminuted intra-articular fracture of the distal radius and distal ulnar fracture. DATA REPOSITORY: RADIATION DOSE DELIVERED:
--- NOTE | 2024-04-20 11:00 | DI.CT_ITS ---
Exam(s) CT CHEST/ABD/PEL W CT THORACIC LUMBAR SPINE REC EXAM: CT CHEST/ABD/PEL W CLINICAL HISTORY: Trauma, prolonged down time. TECHNIQUE: Imaging Protocol: Axial computed tomography images with coronal and sagittal reformatted images were created and reviewed. Computer aided detection (CAD) was utilized. Axial, coronal and sagittal reconstructions of the thoracic and lumbar spine were also performed. CONTRAST MATERIAL: Intravenous: Omnipaque 350 Contrast volume:100 ml Oral: no COMPARISON: CT CT CHEST/ABD/PEL WO from 02/29/[address] THORACIC LUMBAR SPINE REC from 04/20/2024 FINDINGS: CHEST: Tracheobronchial tree: Patent. Pulmonary parenchyma: No consolidation or dominant measurable mass. Pleura: No effusion or pneumothorax. Mediastinum: Moderate size hiatal hernia. Aorta: Thoracic portion non-dilated. Pulmonary arteries: No visible emboli. Heart: Mildly enlarged. Coronary artery calcifications. No pericardial effusion. Bones: Unremarkable for age. No lytic or blastic lesions.No compression fractures. Soft tissues: Some edema and posterior soft tissues. No hematoma. ABDOMEN and PELVIS: Liver: Normal density. No measurable mass. Gallbladder and biliary tract: Status post cholecystectomy. Stable biliary dilatation. Pancreas: Normal density, no abnormal calcifications or inflammatory process. Spleen: Normal. Kidneys: Normal size, contour and axis. No radiodense stones. No obstructive uropathy. No suspicious masses seen. Adrenal glands: No masses seen. Aorta: Abdominal portion non-dilated. Lymph nodes: Within normal limits. Soft tissues: Unremarkable. Bladder: Partially obscured by artifact from left hip prosthesis. Grossly unremarkable. Bowel: No obstruction or bowel wall thickening. Large quantity of stool noted, particularly in the rectum. Diverticulosis. No evidence of diverticulitis. Appendix normal. Peritoneal cavity: No ascites. No focal collection. No mesenteric inflammatory response. No free ai r. Bones: No acute fracture. Left hip prosthesis. Degenerative changes of the right hip and lumbar spi ne. Degenerative scoliosis. Postsurgical changes lower lumbar spine. Reproductive organs: Within normal limits. IMPRESSION: No acute abnormality in the chest, abdomen or pelvis. No acute thoracic or lumbar spine fractures. Degenerative changes. Large quantity of stool consistent with constipation. RADIATION DOSE DELIVERED: Total DLP DATA REPOSITORY: All CT scans at this facility are submitted to the National Radiology Data Registry (NRDR) Dose Index Registry (DIR) with the [employer] (ACR). RADIATION OPTIMIZATION: All CT scans at this facility use at least one of these dose optimization te chniques: automated exposure control; mA and/or kV adjustment per patient size (includes targeted exa ms where dose is matched to clinical indication); or iterative reconstruction.
--- NOTE | 2024-04-20 11:00 | DI.RAD_ITS ---
Exam(s) XR WRIST RT COMPLETE EXAM: XR WRIST RT COMPLETE CLINICAL HISTORY: deformity. TECHNIQUE: 2D digital imaging was performed. Three views. COMPARISON: CR XR WRIST LT COMPLETE from 04/20/2024 FINDINGS: BONES: Comminuted intra-articular fracture of the distal radius. Dorsal angulation and impaction. T he distal ulna and carpal bones appear intact. No bony destructive lesion is seen. JOINTS: The carpal bones are normally aligned. Severe degenerative changes 1st carpal metacarpal roger int. SOFT TISSUE: Prominent soft tissue swelling around the wrist. IMPRESSION: Comminuted intra-articular fracture of the distal radius. DATA REPOSITORY: RADIATION DOSE DELIVERED:
--- NOTE | 2024-04-20 11:13 | ED.GENADUL_ITS ---
Discharge Plan Discharge Details Chief Complaint: Trauma Primary Care Provider: Marixa Kurtz ED Provider: Mariella Soliman Home Meds and New Rx's Prescriptions: No Action sertraline 50 mg tablet 75 mg PO DAILY trazodone 100 mg tablet 200 mg PO HS PRN PRN meloxicam 15 mg tablet 15 mg PO DAILY aspirin 81 mg tablet,delayed release (DR/EC) 81 mg PO DAILY topiramate [Topamax] 25 mg tablet 25 mg PO DAILY omeprazole 40 MG capsule,delayed release(DR/EC) 40 mg PO DAILY polyethylene glycol 3350 [Miralax] 119 GM powder 17 g PO DAILY PRN PRN Patient Comments: Not on pt's updated med list ML 03/13/23 vitamin B complex Tablet 1 tab PO DAILY cholecalciferol (vitamin D3) [Vitamin D3] 25 mcg (1,000 unit) Tablet 50 mcg PO DAILY Patient Comments: Not on pt's updated med list ML 03/13/23 lorazepam 1 mg tablet 1 mg PO DAILY PRNQty: 3 0RF lorazepam [Ativan] 1 mg tablet 1 mg PO DAILY PRNQty: 10 0RF oxycodone [OxyContin] 40 mg tablet,oral only,ext.rel.12 hr 40 tab PO BID Patient Comments: TAKE ONE TABLET BY MOUTH TWICE A DAY sennosides [senna] 8.6 mg tablet 8.6 mg PO QPM amlodipine 10 mg tablet 10 mg PO DAILY prochlorperazine maleate 5 mg tablet 5 mg PO BID PRN PRN Patient Comments: TAKE 1 TABLET BY MOUTH 2 TIMES DAILY NEEDED naloxone 4 mg/actuation spray,non-aerosol 4 mg INTRANASAL ONCE PRN Patient Comments: ADMINISTER 1 SPRAY INTO ONE NOSTRIL A SINGLE DOSE NEEDED FOR EXCESSIVE SEDATION Magnesium (oxide/AA chelate) 300 mg capsule 1 cap PO BID oxycodone [OxyContin] 40 mg tablet,oral only,ext.rel.12 hr 20 mg PO QID nitrofurantoin monohyd/m-cryst 100 mg capsule 100 mg PO BID HPI General Mode of arrival: EMS . Date/Time Provider Initiated Documentation: 04/20/24 11:10 . Limitations to Documentation: no limitations . Information obtained by: patient, EMS and old records reviewed . HPI Narrative: HPI: This is a 73-year-old female patient with a past medical history significant for recurrent UTIs, KWAME, anemia, CKD, and hypertension. She was brought in by EMS after sustaining a fall sometime last night. She reports that she lost her balance and tipped over, striking her face and head. She was unable to get up after that event and has been on the floor all evening. She did not have any dizziness, chest pain, or loss of consciousness that preceded this fall, and did not lose consciousness when she was on the ground. She reports that she is experiencing pain in her eye and head, as well as her neck and back. She also has pain in her bilateral wrists. The patient does not believe that she takes blood thinning medications, states that she has not had a recent fever, cough, changes in bowel or bladder habits. EMS noted the patient to be running a low-grade fever, was tachycardic, and they are concerned for medical abnormalities such as sepsis in addition to her traumatic injuries. Exam: Gen: Awake and alert HEENT: Non-icteric sclera, pupils equal and reactive bilaterally. The patient has left periorbital ecchymosis, and a large bruise over her chin. EOMs are full without evidence of entrapment. Neck: Cervical collar in place, midline tenderness to palpation of the C-spine. Lungs: No apparent respiratory distress, normal respiratory effort. Lung sounds clear and equal bilaterally CV: Appears well perfused, heart with regular rate and rhythm Abdomen: Non-distended, soft, nontender MSK: The patient has deformities of the bilateral wrists with associated bruising, no overlying skin changes otherwise, good CSM's distal to this injury. She has no evidence of trauma or deformity/tenderness to the elbows or upper arm. Pelvis stable to AP compression, tenderness to palpation over the mid T- spine, bilateral lower extremities without apparent injury. Skin: Visualized skin without rashes, cyanosis. Neuro: No obvious focal deficits or facial asymmetry. Speaks in full, clear sentences. Psych: Appropriate for situation. MDM: This is a 73-year-old female patient presenting for evaluation after mechanical fall with prolonged downtime. Differential includes but is not limited to traumatic injuries, specifically intracranial hemorrhage, skull or facial fracture, spine fracture, intrathoracic, abdominal, or pelvic injuries. Considered fracture and dislocation, specifically of the bilateral wrists. Finally, I considered rhabdomyolysis, metabolic and electrolyte derangement, dehydration, kidney injury due to her downtime. The patient's low-grade fever and tachycardia may also be underwriting sales representative of medical abnormality, and I considered sepsis, urinary tract infection, pulmonary infection. Spinal precautions were maintained, the patient will be taken to the CT scanner for a full trauma scan, plus x-rays of the bilateral wrist. I will provide her with a gram of IV Tylenol. We will obtain laboratory workup to include CBC, CMP, magnesium, PT/INR, lactate, blood cultures, troponin, and CK. ED Course: I reviewed the patient's laboratory studies, which show no leukocytosis, stable anemia and no thrombocytopenia. Chemistry panel demonstrates no significant electrolyte derangements, evidence of kidney dysfunction, or liver disease. Her CK is not significantly elevated, at 275. Troponin was low with no significant delta change, and by our high-sensitivity troponin protocol she does not require further checks. INR is 1.1, lactate 1.3, and her urinalysis is without evidence of infectious findings. I independently interpreted the patient's imaging studies, and she has suffered bilateral comminuted and intra-articular fractures of her radius and ulna. The patient did not have any additional injuries identified on CT imaging. The patient remains neurovascularly intact, and we will reach out to [facility] orthopedics to discuss next steps in management. I have significant concerns regarding the ability of this patient to care for herself in the home environment with bilateral splints in place. [place] [place]'s fractures occurred. The patient will likely require surgical intervention due to the bilateral and intra-articular nature of her injuries. They states, however, that this intervention does not need to occur urgently. As the patient is neurovascularly intact and does not have evidence of open fracture, their recommendations were for splinting and they are fine with a reverse sugar-tong splint on her right hand to facilitate access to her IV. I did place a hematoma block in an attempt to make the process a little more comfortable as I molded the splint. 5 mL 2% lidocaine to the right wrist, with moderate success. We did discuss that this patient would likely benefit from improved alignment of her fractures, though I worry about the condition of the patient's skin, which is very thin. She had very poor tolerance process of the splinting process, even after hematoma block, and given that the patient will require surgical intervention I will hold on reduction attempts at this time to avoid causing further injury and discomfort to the patient. I do not feel that the benefits of sedation outweigh the risk in this patient at this time to perform these reductions. I spoke with the admitting hospitalist who expresses discomfort admitting a patient with a traumatic injury, and requested trauma surgery be consulted for admission with the hospitalist team consulting. I did sign out care of this patient to the oncoming provider prior to final disposition. She remained hemodynamically appropriate and comfortable while under my care. Mariella Soliman MD Related Data Home Medications ?Medication ?Instructions ?Recorded ?Confirmed omeprazole 40 mg capsule,delayed 40 mg PO DAILY 05/19/14 04/20/24 release polyethylene glycol 3350 17 17 g PO DAILY PRN PRN 05/19/14 04/20/24 gram/dose oral powder (Miralax) cholecalciferol (vitamin D3) 25 50 mcg PO DAILY 01/05/20 04/20/24 mcg (1,000 unit) tablet (Vitamin D3) vitamin B complex 1 tab PO DAILY 01/05/20 04/20/24 sertraline 50 mg tablet 75 mg PO DAILY 10/19/20 04/20/24 trazodone 100 mg tablet 200 mg PO HS PRN PRN 01/03/21 04/20/24 aspirin 81 mg tablet,delayed 81 mg PO DAILY 06/23/21 04/20/24 release meloxicam 15 mg tablet 15 mg PO DAILY 08/08/21 04/20/24 lorazepam 1 mg tablet (Ativan) 1 mg PO DAILY PRN #10 tabs 10/23/21 04/20/24 oxycodone 40 mg tablet,crush 40 tab PO BID 01/13/22 04/20/24 resistant,extended release 12 hr (OxyContin) amlodipine 10 mg tablet 10 mg PO DAILY 01/14/22 04/20/24 prochlorperazine maleate 5 mg 5 mg PO BID PRN PRN 01/14/22 04/20/24 tablet sennosides 8.6 mg tablet (senna) 8.6 mg PO QPM 01/14/22 04/20/24 topiramate 25 mg tablet (Topamax) 25 mg PO DAILY 08/06/22 04/20/24 lorazepam 1 mg tablet 1 mg PO DAILY PRN #3 tabs 02/02/23 04/20/24 magnesium oxide-magnesium amino 1 cap PO BID 07/16/23 04/20/24 acid chelate 300 mg capsule (Magnesium (oxide/AA chelate)) naloxone 4 mg/actuation nasal spray 4 mg intranasal ONCE PRN 07/16/23 04/20/24 oxycodone 40 mg tablet,crush 20 mg PO QID 07/16/23 04/20/24 resistant,extended release 12 hr (OxyContin) nitrofurantoin 100 mg PO BID 02/29/24 04/20/24 monohydrate/macrocrystals 100 mg capsule Previous Rx's ?Medication ?Instructions ?Recorded lorazepam 1 mg tablet (Ativan) 1 mg PO DAILY PRN #10 tabs 10/23/21 lorazepam 1 mg tablet 1 mg PO DAILY PRN #3 tabs 02/02/23 Allergies Allergy/AdvReac Type Severity Reaction Status Date / Time sulfamethoxazole (From Allergy Diarrhea Verified 02/29/24 00:29 Bactrim) trimethoprim (From Bactrim) Allergy Diarrhea Verified 02/29/24 00:29 morphine AdvReac Intermediate Psychosis Unverified 02/29/24 00:29 baclofen AdvReac Unknown Unknown Unverified 02/29/24 00:29 chlorthalidone AdvReac Unknown Unknown Unverified 02/29/24 00:29 codeine AdvReac Unknown Unknown Unverified 02/29/24 00:29 dextromethorphan AdvReac Unknown Unknown Unverified 02/29/24 00:29 gabapentin (From Neurontin) AdvReac Unknown Unknown Unverified 02/29/24 00:29 hydrochlorothiazide AdvReac Unknown Unknown Unverified 02/29/24 00:29 pregabalin AdvReac Unknown Dopey Unverified 02/29/24 00:29 General Stated Complaint: Trauma LOLITA: 2 Course Vital Signs Vital signs: Vital Signs Pulse 76 04/20/24 11:04 Respiratory Rate 15 04/20/24 11:04 Blood Pressure 170/90 H 04/20/24 11:04 Pulse Oximetry 93 04/20/24 11:04 Pulse 76 04/20/24 11:04 Respiratory Rate 15 04/20/24 11:04 Blood Pressure 170/90 H 04/20/24 11:04 Pulse Oximetry 93 04/20/24 11:04 Oxygen Delivery Method Room Air 04/20/24 11:04 Oxygen Flow Rate 0 04/20/24 11:04 Lab/Test Results Lab/Test Results: 04/20/24 11:10 Blood Blood Culture - Pending 04/20/24 11:10 Blood Blood Culture - Pending Procedures Orthopedic Splinting/Casting Injury #1: Side: left Upper Extremity Injury Location: forearm Upper Extremity Immobilizer: sugartong splint Injury #2: Side: right Upper Extremity Injury Location: forearm Upper Extremity Immobilizer: sugartong splint (Reverse sugar tong) Medical Decision Making Quality:SDOH Health Related Social Needs: No Data to Display PFSH All Active Problems (Updated 03/31/24 @ 00:06 by KELLI ALANIS) Pneumonia (Acute) Bilateral sensorineural hearing loss (Acute) Impacted cerumen of both ears (Acute) Left rotator cuff tear arthropathy (Acute) Primary osteoarthritis, left shoulder (Acute) Hypomagnesemia (Acute) Recurrent UTI (urinary tract infection) (Acute) Tendonitis of left rotator cuff (Acute) Depression (Chronic) Goiter (Acute) Fibromyalgia (Chronic) KWAME (obstructive sleep apnea) (Chronic) Chronic pain (Chronic) Movement disorder (Acute) Muscle weakness (Acute) Left elbow contusion (Acute) Left displaced femoral neck fracture (Acute 09/16/20) Chronic renal insufficiency, stage III (moderate) (Acute) Anemia (Chronic) Chronic pain syndrome (Chronic) Hypertension (Chronic) Fracture of left hip (Acute) Osteoarthritis of right knee (Acute) Steroid injection: 04/05/2020 Has had previous viscosupplementation injections. Primary osteoarthritis of left knee (Chronic) We will see the patient back in 4-1/2 months for possible repeat Synvisc 1 in her left knee would consider x-ray in her right knee if she is still significantly symptomatic Medical History CVA (cerebral vascular accident) Recurrent UTI IBS (irritable bowel syndrome) Urge incontinence Chronic constipation Chronic insomnia Surgical History History of total left hip replacement (09/17/20) As treatment for a femoral neck fracture (DOI: 09/16/2020) History of back surgery Hx of cholecystectomy Social History (Reviewed 02/29/24 @ 00:35 by SHANNON Sepulveda Smoking/Tobacco Use Status: Never Smoking risk assessment performed?: Yes Alcohol Intake: never Drug use: Never Substance use type: does not use Housing: house Do you feel safe at home: Yes Do you feel safe in your relationship?: Yes Additional Social history: lives alone, has caregiver that come 7 days a week, do all the meds
[2024-04-20] MEDS: ACETAMINOPHEN 1,000 MG/100 ML BAG 400 MG (11:17)
[2024-04-20] MEDS: Normal Saline - Diluent 50 ML VIAL IJ (11:23)
[2024-04-20] MEDS: Omnipaque 350 MG/ML 100 ML BTL IJ (11:24)
--- NOTE | 2024-04-20 11:33 | DI.CT_ITS ---
Exam(s) CT HEAD CERVICAL SPINE WO EXAM: CT HEAD CERVICAL SPINE WO CLINICAL HISTORY: Trauma, fall, head strike. TECHNIQUE: Imaging Protocol: Axial computed tomography images with coronal and sagittal reformatted images were created and reviewed COMPARISON: CT CT BRAIN NECK CTA from 11/30/2023 FINDINGS: Head CT Ventricles and Extra axial spaces: Ex vacuo dilatation of the occipital horn of the right lateral tomás tricle. Hemorrhage: None. Cerebral parenchyma: No evidence of mass or acute infarct. Old bilateral basal ganglia lacunar infar cts. Old right occipital infarct. Chronic microvascular disease of white matter. Midline shift: None. Brainstem/Cerebellum: Normal. Calvarium: Normal. Visualized Paranasal sinuses/Mastoids: Clear. Soft tissues: Left periorbital soft tissue swelling and a small amount of air. Cervical Spine CT BONES: Vertebral body heights are maintained. Alignment is normal. There is no evidence of acute frac ture. Anterior cervical fusion with hardware in place from C4 through C7. Degenerative disc changes at C2-3 and C3-4. Metallic density again noted at the right C1 ring. Degenerative disc changes and facet degenerative changes are seen . SOFT TISSUES: No paraspinal hematoma. The airway appears intact. No pneumothorax is seen at the lung apices. IMPRESSION: Head CT: No acute intracranial abnormality. Old right occipital and bilateral basal ganglia lacunar infarcts. Left periorbital soft tissue swelling. C-spine CT: Postsurgical and degenerative changes, no acute abnormality. RADIATION DOSE DELIVERED: Total DLP DATA REPOSITORY: All CT scans at this facility are submitted to the National Radiology Data Registry (NRDR) Dose Index Registry (DIR) with the [employer] (ACR). RADIATION OPTIMIZATION: All CT scans at this facility use at least one of these dose optimization te chniques: automated exposure control; mA and/or kV adjustment per patient size (includes targeted exa ms where dose is matched to clinical indication); or iterative reconstruction.
[2024-04-20 11:37] LABS: Lactate 1.3 mmol/L (0.6-1.4)
[2024-04-20 11:40] LABS: Abs Immature Grans 0.04 10^3/uL (0.0-0.06); Absolute Basophil Count 0.03 10^3/uL (0.0-0.2); Absolute Monocyte Count 0.71 10^3/uL (0.1-0.8); Basophils % 0.4 %; HCT 28.9 % (36.0-46.0); HGB 9.2 g/dL (11.2-15.7); Immature Grans % 0.5 %; Lymphocytes % 7.2 %; MCH 25.1 pg (27.0-33.0); MCHC 31.8 % (32.0-36.0); MCV 79 fL (80-95); MPV 10.1 fL (8.0-11.0); Monocytes % 8.6 %; Neutrophils % 83.3 %; Platelet Count 321 10^3/uL (130-400); RBC 3.66 10^6/uL (3.93-5.22); RDW 16.9 % (11.7-14.6); RDW-SD 48.7 fL; WBC 8.28 10^3/uL (4.4-10.8)
[2024-04-20 11:48] LABS: INR 1.1 (0.9-1.1); Prothrombin Time 10.6 sec (9.1-11.1)
[2024-04-20 11:56] LABS: Creatine Kinase 275 U/L (26-192)
[2024-04-20 11:59] LABS: ALT 17 U/L (14-59); AST 24 U/L (15-37); Albumin 3.5 g/dL (3.4-5.0); Alkaline Phosphatase 74 U/L (46-116); Anion Gap 12.8 mmol/L (3-11); BUN 23 mg/dL (7-18); Bilirubin, Total 0.61 mg/dL (0.2-1.0); CO2 25.2 mmol/L (21.0-32.0); CREATININE 0.9 mg/dL (0.55-1.02); Calcium 9.2 mg/dL (8.5-10.1); Chloride 106 mmol/L (98-107); Estimated GFR 66.67 (mL/min/1.73m2); Glucose 124 mg/dL (74-106); Magnesium 1.8 mg/dL (1.8-2.4); Potassium 3.7 mmol/L (3.5-5.1); Sodium 144 mmol/L (136-145); Total Protein 8.4 g/dL (6.4-8.2); Troponin I 15 ng/L (<or=51)
[2024-04-20 12:55] LABS: Bilirubin Negative (Negative); Blood Negative (Negative); Clarity Clear (Clear); Glucose Negative (Negative); Ketones Negative (Negative); Leukocyte Esterase Negative (Negative); Nitrite Negative (Negative); Specific Gravity 1.015 (1.005-1.025); Urobilinogen 0.2 mg/dL (Up to 0.2); pH 5.5 (5-8)
[2024-04-20 13:05] LABS: Troponin I 19 ng/L (<or=51)
[2024-04-20 13:07] LABS: Bacteria Few HPF (Negative); Crystals Negative HPF (Negative); Epithelial Cells Rare HPF (Negative); Mucus Moderate (Negative); Other Cells Few Renal (Negative); WBC Negative HPF (0-5)
[2024-04-20 13:08] LABS: C & S Indicated? No; Casts 0-2 Fine Granular LPF (Negative)
--- NOTE | 2024-04-20 16:58 | ED.PROG_ITS ---
Date of service: 04/20/24 Time of Service: 16:58 Medical Decision Making Patient seen in signout from Dr. Mariella Soliman, patient had been refused admission by hospitalist service due to the trauma nature of the patient's fall with bilateral wrist injuries and bruises to the face. The patient cannot care for self with 2 broken wrists at home and needs admission to be evaluated by orthopedics tomorrow. I did approach Dr. Middleton who admitted the patient with consult to medicine for medical management. Medical Records Medical records reviewed: Yes I reviewed the patient's medical records. Quality:[facility] Health Related Social Needs: No Data to Display Sign Out Sign Out Data: Sign Out Comment: Fall last night, on the ground overnight, sustained bilateral wrist fractures, in splints. Remainder of trauma gram without evidence of injury, has contusions to face. Eyebrow glued, tetanus updated. [facility] ortho recommending surgery later in the week, did not attempt reduction due to fragile skin and patient intolerance of splinting and hematoma block process. Neurovascularly intact. [ ] Find someone to admit her Last updated by Mariella Soliman MD at 04/20/24 16:22 Discharge Plan Disposition Patient Disposition: Admit to [facility] Condition: Stable Discharge Details Clinical Impression: Fracture of both wrists Admit Date/Time: 04/20/24 17:23 Admit Provider: Barby Middleton Attending Provider: Barby Middleton Primary Care Provider: Marixa Kurtz ED Provider: [place] Discharge Data Discharge Date/Time-TO BE ENTERED AT DEPARTURE: 04/20/24 18:31
--- NOTE | 2024-04-20 17:46 | W.PM.HP.N ---
Date of service: 04/20/24 Time of Service: 17:46 Assessment and Plan Assessment and plan (1) Hypertension: Status: Chronic (2) Goiter: Status: Acute Assessment and plan: Thyroid panel ordered by hospitalist (3) Bilateral sensorineural hearing loss: (4) Chronic renal insufficiency, stage III (moderate): Status: Acute (5) Anemia: Status: Chronic Assessment and plan: Appears to be chronic. Patient does have some degree of chronic kidney disease. Will check ferritin/B12/folate in AM. Check LDH and retake count. She will be typed and crossed for possible surgery (6) Fracture of both wrists: Status: Acute Assessment and plan: Ortho from was consulted. They have no beds and declined the case We have no orthopedics today. A will talk to orthopedics tomorrow. Dr. Paulino is on-call. She does have finger wrist and humeral fractures that will need to be addressed. She is going to have very complicated recovery time and going to have difficulty with mobility. She is going to need to go to rehab for the next 6 to 12 weeks. She will not build to eat on her own or toilet or bathe on her own. And she walks with a walker. (7) Fibromyalgia: Status: Chronic (8) Chronic pain syndrome: Assessment and plan: Patient is on extensive chronic home narcotics and barbiturates (9) Movement disorder: Status: Acute (10) KWAME (obstructive sleep apnea): Status: Chronic Assessment and plan: RT was consulted for CPAP. Patient is on home CPAP. Settings are unknown (11) Chronic insomnia: (12) Chronic constipation: (13) History of CVA (cerebrovascular accident): Status: Acute Assessment and plan: Patient did have CT angio of the carotids done in November 2023 and were relatively unremarkable (14) S/P cervical spinal fusion: (15) DJD (degenerative joint disease), lumbar: Status: Acute (16) Diverticula of colon: Status: Acute Assessment and plan: Longstanding history of constipation Patient is on senna MiraLAX at bedtime if no bowel movement on day shift Mag citrate tonight prior to anesthesia (17) Coronary artery calcification seen on CAT scan: Status: Acute (18) Hiatal hernia: Status: Chronic Assessment and plan: PPI (19) Periorbital edema: Status: Acute Assessment and plan: CT negative for fracture (20) At high risk for skin breakdown: Status: Acute Assessment and plan: turn every 2 hours (21) Heart murmur: Status: Acute Assessment and plan: Echo ordered for a.m. 45 mins spent in direct pt care and 60 in non face to face time History of Present Illness Narrative: 73-year-old female with a past medical history of depression, CVA, irritable bowel syndrome fibromyalgia, obstructive sleep apnea, chronic renal insufficiency, hypertension, who lives alone but does have a home health school health assistant 5 days a week Patient has mobility issues at baseline. She normally uses a walker. Last night she was not using her walker was attempting to move through her living room via furniture. She misjudged and ended up falling on her hands outstretched. She also struck her face on the coffee table. She was not able to get herself up and laid on the floor all night until her caregiver arrived and called 911. She denies loss of consciousness. She was not having any chest pain. Today she is pretty much complaining of pain everywhere on her body. She has been able to tolerate some yogurt. She has had no nausea or vomiting. She is not running a temperature. I did review all her CTs and lab work. She will need surgery for her wrist. She was denied by orthopedics at [facility] as they have no beds. We have no Ortho available this weekend. I Dr. Paulino's green promotions specialist on Sunday and I will have her evaluate for his opinion. She may need to be transferred at a later time depending on how he feels about her fractures. She does have a history of falling and a history of strokes. She has a remote history of stroke. She did have a CT angio and 12/09 that was only significant for a right vertebral artery stenosis. She has not had recent thyroid studies done and these have been ordered by medicine. She does have a history of goiter. I do not see that she has had an echo anywhere and does have a significant murmur so that will be ordered tomorrow preop. She has had good clear yellow urine output. Most of her pain appears to be in her wrist/arms. She denies any fever or chills. She is hungry and able to tolerate p.o.'s. She has significant constipation on her CTs. She does have some soft tissue edema and ecchymosis on her face but no fractures. She has no double vision or blurry vision. She has no malocclusion of her teeth. She has been able to swallow without difficulty. She currently has no chest pain or shortness of breath. She has no productive cough. Her feet are warm and pink. I attempted to discuss CODE STATUS with patient. I asked her if she wanted chest compressions or to be intubated or kept alive by artificial means. Patient said no. But then she also stated she wanted everything done/that she could live. She was on her phone with her daughter Irene iyer. She knows her mother has advanced directives but is unclear as to exactly what they say. She thinks her brother has a copy of the thumb. She states they also should be on file with her primary care who is Marixa Kurtz. We do consider everyone a full code while they are in the OR. We will consult palliative care for CODE STATUS. Also we are going to have significant discharge issues with her. She is going to need to go to a senior living for 6 to 12 weeks if she has bilateral finger wrist and arm bone fractures and is going to have a prolonged recovery time. Patient is not able to walk without a walker. So mobility is going to be a problem for her. Review of Systems All systems reviewed & are unremarkable except as noted in HPI and below PFSH All Active Problems (Updated 04/20/24 @ 19:59 by Barby Middleton DO) Heart murmur (Acute) Depression (Chronic) At high risk for skin breakdown (Acute) Periorbital edema (Acute) Hiatal hernia (Chronic) moderate Coronary artery calcification seen on CAT scan (Acute) Diverticula of colon (Acute) DJD (degenerative joint disease), lumbar (Acute) History of CVA (cerebrovascular accident) (Acute) remote Fracture of both wrists (Acute) Goiter (Acute) Fibromyalgia (Chronic) KWAME (obstructive sleep apnea) (Chronic) Chronic pain (Chronic) Movement disorder (Acute) Chronic renal insufficiency, stage III (moderate) (Acute) Anemia (Chronic) Hypertension (Chronic) Medical History (Updated 04/20/24 @ 19:59 by Barby Middleton DO) Primary osteoarthritis of left knee We will see the patient back in 4-1/2 months for possible repeat Synvisc 1 in her left knee would consider x-ray in her right knee if she is still significantly symptomatic Osteoarthritis of right knee Steroid injection: 04/05/2020 Has had previous viscosupplementation injections. 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) As treatment for a femoral neck fracture (DOI: 09/16/2020) History of back surgery Hx of cholecystectomy Social History Smoking/Tobacco Use Status: Never Smoking risk assessment performed?: Yes Alcohol Intake: never Drug use: Never Substance use type: does not use Housing: house Do you feel safe at home: Yes Do you feel safe in your relationship?: Yes Additional Social history: lives alone, has caregiver that come 7 days a week, do all the meds Meds Allergies and Home Medications Allergies Allergy/AdvReac Type Severity Reaction Status Date / Time sulfamethoxazole (From Allergy Diarrhea Verified 02/29/24 00:29 Bactrim) trimethoprim (From Bactrim) Allergy Diarrhea Verified 02/29/24 00:29 morphine AdvReac Intermediate Psychosis Unverified 02/29/24 00:29 baclofen AdvReac Unknown Unknown Unverified 02/29/24 00:29 chlorthalidone AdvReac Unknown Unknown Unverified 02/29/24 00:29 codeine AdvReac Unknown Unknown Unverified 02/29/24 00:29 dextromethorphan AdvReac Unknown Unknown Unverified 02/29/24 00:29 gabapentin (From Neurontin) AdvReac Unknown Unknown Unverified 02/29/24 00:29 hydrochlorothiazide AdvReac Unknown Unknown Unverified 02/29/24 00:29 pregabalin AdvReac Unknown Dopey Unverified 02/29/24 00:29 Home Medications ?Medication ?Instructions ?Recorded ?Confirmed ?Type omeprazole 40 mg capsule,delayed 40 mg PO DAILY 05/19/14 04/20/24 History release polyethylene glycol 3350 17 17 g PO DAILY PRN PRN 05/19/14 04/20/24 History gram/dose oral powder (Miralax) cholecalciferol (vitamin D3) 25 50 mcg PO DAILY 01/05/20 04/20/24 History mcg (1,000 unit) tablet (Vitamin D3) vitamin B complex 1 tab PO DAILY 01/05/20 04/20/24 History sertraline 50 mg tablet 75 mg PO DAILY 10/19/20 04/20/24 History trazodone 100 mg tablet 200 mg PO HS PRN PRN 01/03/21 04/20/24 History aspirin 81 mg tablet,delayed 81 mg PO DAILY 06/23/21 04/20/24 History release meloxicam 15 mg tablet 15 mg PO DAILY 08/08/21 04/20/24 History lorazepam 1 mg tablet (Ativan) 1 mg PO DAILY PRN #10 tabs 10/23/21 04/20/24 Rx oxycodone 40 mg tablet,crush 40 tab PO BID 01/13/22 04/20/24 History resistant,extended release 12 hr (OxyContin) amlodipine 10 mg tablet 10 mg PO DAILY 01/14/22 04/20/24 History prochlorperazine maleate 5 mg 5 mg PO BID PRN PRN 01/14/22 04/20/24 History tablet sennosides 8.6 mg tablet (senna) 8.6 mg PO QPM 01/14/22 04/20/24 History topiramate 25 mg tablet (Topamax) 25 mg PO DAILY 08/06/22 04/20/24 History lorazepam 1 mg tablet 1 mg PO DAILY PRN #3 tabs 02/02/23 04/20/24 Rx magnesium oxide-magnesium amino 1 cap PO BID 07/16/23 04/20/24 History acid chelate 300 mg capsule (Magnesium (oxide/AA chelate)) naloxone 4 mg/actuation nasal spray 4 mg intranasal ONCE PRN 07/16/23 04/20/24 History oxycodone 40 mg tablet,crush 20 mg PO QID 07/16/23 04/20/24 History resistant,extended release 12 hr (OxyContin) nitrofurantoin 100 mg PO BID 02/29/24 04/20/24 History monohydrate/macrocrystals 100 mg capsule Exam Const General: cooperative, no acute distress, disheveled and frail appearing Nutritional Appearance: cachectic and underweight Orientation: alert, awake and oriented x3 Other: flat afffect [facility] Head: no palpable skull fracture, laceration (left superior eyelid ), no occipital foramen tenderness, no palpable skull fracture, raccoon eyes, no scalp tenderness and periorbital ecchymosis Ears: hearing grossly normal bilaterally General nose exam: external nose normal Face and sinus: face symmetric, no crepitus, ecchymosis, no maxillary instability and no sinus tenderness Mouth: oral mucosae normal, tongue normal and moist mucous membranes Teeth and gingiva: fair dentition Eyes General: appearance normal, both eyes and all related structures Alignment and Position: alignment normal Periorbital: periorbital findings abnormal (echymosis) Eyelids: eyelid abnormality left upper eyelid laceration other Sclera: scleral abnormality left hemorrhage Pupils: PERRL EOM: EOM intact bilaterally Direct ophthalmoscopy: normal light reflex Neck Other: prior neck fusion c/o pain w/ palpation and AROM Chest Chest: normal inspection of the chest and no crepitus Other: c/o pain w/ palpation Resp Effort & Inspection: normal respiratory effort and able to speak in complete sentences Auscultation: clear to auscultation bilaterally Cardio Rate: regular rate Rhythm: regular rhythm Heart Sounds: murmur GI Inspection: normal to inspection Palpation: soft Percussion: normal to percussion Auscultation: normal bowel sounds Other: Patient has a Hawkins catheter in place with clear yellow urine RNs noted there is no breakdown Back/Spine/Pelvis Back: no CVA tenderness Other: Patient complains of pain all along her back. She history of chronic back pain and degenerative changes in the spine Skin Other: She has multiple areas of ecchymosis on her legs Both arms are splinted and wrapped. The fingertips are warm and pink. Patient complains of pain Neuro General: patient alert, patient awake, patient oriented x3, CN's II-XI intact bilaterally and unable to assess gait Other: Her feet are warm and pink. She is able to move her feet independently in bed. Hands wrists and forearms are in splints bilaterally. Her fingertips are warm and pink Psych Appearance: grossly normal Mental Status: mental status grossly normal Speech and Movement: speech and movement normal Affect: blunted Attitude: cooperative Results Labs 04/20/24 11:23 04/20/24 11:23 Labs: Laboratory Results - last 24 hr 04/20/24 04/20/24 04/20/24 11:23 12:25 12:35 WBC 8.28 RBC 3.66 L Hgb 9.2 L Hct 28.9 L MCV 79 L MCH 25.1 L MCHC 31.8 L RDW 16.9 H Plt Count 321 MPV 10.1 Immature Gran % 0.5 Neutrophils % 83.3 Lymphocytes % 7.2 Monocytes % 8.6 Eosinophils % 0.0 Basophils % 0.4 Nucleated RBC % 0.0 Absolute Neutrophils 6.90 H Absolute Lymphocytes 0.60 L Absolute Monocytes 0.71 Absolute Eosinophils 0.00 Absolute Basophils 0.03 PT 10.6 INR 1.1 VBG Lactate 1.3 Sodium 144 Potassium 3.7 Chloride 106 Carbon Dioxide 25.2 Anion Gap 12.8 H BUN 23 H Creatinine 0.9 Est GFR (CKD-EPI 2020) 66.67 Glucose 124 H Calcium 9.2 Magnesium 1.8 Total Bilirubin 0.61 AST 24 ALT 17 Alkaline Phosphatase 74 Creatine Kinase 275 H Troponin I 15 19 Total Protein 8.4 H Albumin 3.5 Urine Color Yellow Urine Clarity Clear Urine pH 5.5 Ur Specific [place] 1.015 Urine Protein 30 H Urine Ketones Negative Urine Blood Negative Urine Nitrite Negative Urine Bilirubin Negative Urine Urobilinogen 0.2 Ur Leukocyte Esterase Negative Urine RBC 3-5 H Urine WBC Negative Ur Epithelial Cells Rare Urine Crystals Negative Urine Bacteria Few Urine Casts 0-2 Fine Granular Urine Mucus Moderate Urine Other Few Renal Ur Culture Indicated? No Urine Glucose Negative 04/20/24 04/20/24 04/20/24 14:10 18:26 20:26 WBC RBC Hgb Hct MCV MCH MCHC RDW Plt Count MPV Immature Gran % Neutrophils % Lymphocytes % Monocytes % Eosinophils % Basophils % Nucleated RBC % Absolute Neutrophils Absolute Lymphocytes Absolute Monocytes Absolute Eosinophils Absolute Basophils PT INR VBG Lactate Sodium Potassium Chloride Carbon Dioxide Anion Gap BUN Creatinine Est GFR (CKD-EPI 2020) Glucose Calcium Magnesium Total Bilirubin AST ALT Alkaline Phosphatase Creatine Kinase Troponin I Cancelled Cancelled Cancelled Total Protein Albumin Urine Color Urine Clarity Urine pH Ur Specific [place] Urine Protein Urine Ketones Urine Blood Urine Nitrite Urine Bilirubin Urine Urobilinogen Ur Leukocyte Esterase Urine RBC Urine WBC Ur Epithelial Cells Urine Crystals Urine Bacteria Urine Casts Urine Mucus Urine Other Ur Culture Indicated? Urine Glucose Last Vital Signs Temp 37.3 C 04/20/24 12:32 Pulse 67 04/20/24 12:31 Resp 13 04/20/24 12:32 BP 194/75 H 04/20/24 12:31 Pulse Ox 94 04/20/24 12:32 Time Spent Time spent with Patient: >75 minutes Time was spent: preparing to see the patient(eg.review tests), obtaining and/or reviewing separately otained hiistory, ordering medications,tests, procedures, referring, communicating with other health health care marketing specialist, indepentently interpreting results, counseling the patient, care coordination and other
--- NOTE | 2024-04-20 18:07 | W.PC.ACHO ---
Registration Status: Primary Language: Preferred Language: ED Information & Data Chief Complaint Trauma 04/20/24 12:39 Chief Complaint Trauma 04/20/24 11:13 Triage Note EMS brought patient in with 04/20/24 11:04 history of falling at home yesterday and sustained injury to the left eyebrow and to the chin. Patient reported that she fell face down on the floor yesterday and was unable to get up. complaint of neck and back pain and fever. patient reported she was awake for the entire time and did not fall asleep. Patient has bilateral deformities to extremities Medical / Surgical History (Last Updated 04/20/24 @ 17:56 by Barby Middleton DO) Left displaced femoral neck fracture (09/16/20) Fracture of left hip CVA (cerebral vascular accident) Recurrent UTI IBS (irritable bowel syndrome) Urge incontinence Chronic constipation Chronic insomnia (Last Updated 04/20/24 @ 17:56 by Barby Middleton DO) S/P cervical spinal fusion History of total left hip replacement (09/17/20) History of back surgery Hx of cholecystectomy Most Recent Vital Signs Temperature 37.2 C 04/20/24 18:01 Pulse 78 04/20/24 18:01 Pulse 77 04/20/24 18:01 Respiratory Rate 14 04/20/24 18:01 Respiratory Effort Normal, Non-Labored 04/20/24 12:39 Blood Pressure 134/55 L 04/20/24 18:01 Blood Pressure Mean 80 04/20/24 18:01 Pulse Oximetry 93 04/20/24 18:01 Oxygen Delivery Method Room Air 04/20/24 11:04 Oxygen Flow Rate 0 04/20/24 11:04 Pain Level 3 04/20/24 11:14 Allergies sulfamethoxazole (From Bactrim) Allergy (Verified 02/29/24 00:29) Diarrhea trimethoprim (From Bactrim) Allergy (Verified 02/29/24 00:29) Diarrhea morphine Adverse Reaction (Intermediate, Unverified 02/29/24 00:29) Psychosis baclofen Adverse Reaction (Unknown, Unverified 02/29/24 00:29) Unknown chlorthalidone Adverse Reaction (Unknown, Unverified 02/29/24 00:29) Unknown codeine Adverse Reaction (Unknown, Unverified 02/29/24 00:29) Unknown dextromethorphan Adverse Reaction (Unknown, Unverified 02/29/24 00:29) Unknown gabapentin (From Neurontin) Adverse Reaction (Unknown, Unverified 02/29/24 00:29) Unknown hydrochlorothiazide Adverse Reaction (Unknown, Unverified 02/29/24 00:29) Unknown pregabalin Adverse Reaction (Unknown, Unverified 02/29/24 00:29) Dopey Precautions Isolation Seizure precaution 04/20/24 12:39 Active Medications Generic Name Dose Route Start Last Admin Trade Name Anjelica PRN Reason Stop Dose Admin Iohexol 100 ml 04/20/24 11:30 04/20/24 11:24 Omnipaque 350 Mg/Ml 100 Ml Btl IJ 05/20/24 23:59 100 ml DIRECTED MONSE Administration Sodium Chloride 50 ml 04/20/24 11:30 04/20/24 11:23 Normal Saline - Diluent 50 Ml Vial IJ 50 ml .FOR DI USE MONSE Administration IV IV Catheter Type [Left Upper Peripheral IV arm] IV Catheter Type [Right Upper Saline Lock arm] IV Catheter Gauge [Left Upper 18 arm] IV Catheter Gauge [Right Upper 18 arm] Diet Orders Category Date Time Status Diabetes Consistent CHO/Low Na [DIET] Nutrition 04/20/24 Dinner Active Nothing Per Oral [DIET] Nutrition 04/21/24 Breakfast Ordered Diagnostics 04/20/24 04/20/24 04/20/24 Range/Units 20:26 18:26 14:10 WBC (4.4-10.8) 10^3/uL RBC (3.93-5.22) 10^6/uL Hgb (11.2-15.7) g/dL Hct (36.0-46.0) % MCV (80-95) fL MCH (27.0-33.0) pg MCHC (32.0-36.0) % RDW (11.7-14.6) % Plt Count (130-400) 10^3/uL MPV (8.0-11.0) fL Immature Gran % % Neutrophils % % Lymphocytes % % Monocytes % % Eosinophils % % Basophils % % Nucleated RBC % (0.0-0.3) % Absolute Neutrophils (1.2-6.7) 10^3/uL Absolute Lymphocytes (1.2-3.4) 10^3/uL Absolute Monocytes (0.1-0.8) 10^3/uL Absolute Eosinophils (0.0-0.7) 10^3/uL Absolute Basophils (0.0-0.2) 10^3/uL PT (9.1-11.1) sec INR (0.9-1.1) VBG Lactate (0.6-1.4) mmol/L Sodium (136-145) mmol/L Potassium (3.5-5.1) mmol/L Chloride (98-107) mmol/L Carbon Dioxide (21.0-32.0) mmol/L Anion Gap (3-11) mmol/L BUN (7-18) mg/dL Creatinine (0.55-1.02) mg/dL Est GFR (CKD-EPI 2020) (mL/min/1.73m2) Glucose (74-106) mg/dL Calcium (8.5-10.1) mg/dL Magnesium (1.8-2.4) mg/dL Total Bilirubin (0.2-1.0) mg/dL AST (15-37) U/L ALT (14-59) U/L Alkaline Phosphatase (46-116) U/L Creatine Kinase (26-192) U/L Troponin I Cancelled Cancelled Cancelled (<or=51) ng/L Total Protein (6.4-8.2) g/dL Albumin (3.4-5.0) g/dL Urine Color (Yellow) Urine Clarity (Clear) Urine pH (5-8) Ur Specific [place] (1.005-1.025) Urine Protein (Neg-Trace) mg/dL Urine Ketones (Negative) mg/dL Urine Blood (Negative) Urine Nitrite (Negative) Urine Bilirubin (Negative) Urine Urobilinogen (Up to 0.2) mg/dL Ur Leukocyte Esterase (Negative) Urine RBC (0-2) HPF Urine WBC (0-5) HPF Ur Epithelial Cells (Negative) HPF Urine Crystals (Negative) HPF Urine Bacteria (Negative) HPF Urine Casts (Negative) LPF Urine Mucus (Negative) Urine Other (Negative) Ur Culture Indicated? Urine Glucose (Negative) mg/dL 04/20/24 04/20/24 04/20/24 Range/Units 12:35 12:25 11:23 WBC 8.28 (4.4-10.8) 10^3/uL RBC 3.66 L (3.93-5.22) 10^6/uL Hgb 9.2 L (11.2-15.7) g/dL Hct 28.9 L (36.0-46.0) % MCV 79 L (80-95) fL MCH 25.1 L (27.0-33.0) pg MCHC 31.8 L (32.0-36.0) % RDW 16.9 H (11.7-14.6) % Plt Count 321 (130-400) 10^3/uL MPV 10.1 (8.0-11.0) fL Immature Gran % 0.5 % Neutrophils % 83.3 % Lymphocytes % 7.2 % Monocytes % 8.6 % Eosinophils % 0.0 % Basophils % 0.4 % Nucleated RBC % 0.0 (0.0-0.3) % Absolute Neutrophils 6.90 H (1.2-6.7) 10^3/uL Absolute Lymphocytes 0.60 L (1.2-3.4) 10^3/uL Absolute Monocytes 0.71 (0.1-0.8) 10^3/uL Absolute Eosinophils 0.00 (0.0-0.7) 10^3/uL Absolute Basophils 0.03 (0.0-0.2) 10^3/uL PT 10.6 (9.1-11.1) sec INR 1.1 (0.9-1.1) VBG Lactate 1.3 (0.6-1.4) mmol/L Sodium 144 (136-145) mmol/L Potassium 3.7 (3.5-5.1) mmol/L Chloride 106 (98-107) mmol/L Carbon Dioxide 25.2 (21.0-32.0) mmol/L Anion Gap 12.8 H (3-11) mmol/L BUN 23 H (7-18) mg/dL Creatinine 0.9 (0.55-1.02) mg/dL Est GFR (CKD-EPI 2020) 66.67 (mL/min/1.73m2) Glucose 124 H (74-106) mg/dL Calcium 9.2 (8.5-10.1) mg/dL Magnesium 1.8 (1.8-2.4) mg/dL Total Bilirubin 0.61 (0.2-1.0) mg/dL AST 24 (15-37) U/L ALT 17 (14-59) U/L Alkaline Phosphatase 74 (46-116) U/L Creatine Kinase 275 H (26-192) U/L Troponin I 19 15 (<or=51) ng/L Total Protein 8.4 H (6.4-8.2) g/dL Albumin 3.5 (3.4-5.0) g/dL Urine Color Yellow (Yellow) Urine Clarity Clear (Clear) Urine pH 5.5 (5-8) Ur Specific [place] 1.015 (1.005-1.025) Urine Protein 30 H (Neg-Trace) mg/dL Urine Ketones Negative (Negative) mg/dL Urine Blood Negative (Negative) Urine Nitrite Negative (Negative) Urine Bilirubin Negative (Negative) Urine Urobilinogen 0.2 (Up to 0.2) mg/dL Ur Leukocyte Esterase Negative (Negative) Urine RBC 3-5 H (0-2) HPF Urine WBC Negative (0-5) HPF Ur Epithelial Cells Rare (Negative) HPF Urine Crystals Negative (Negative) HPF Urine Bacteria Few (Negative) HPF Urine Casts 0-2 Fine Granular (Negative) LPF Urine Mucus Moderate (Negative) Urine Other Few Renal (Negative) Ur Culture Indicated? No Urine Glucose Negative (Negative) mg/dL 04/20/24 12:25 Blood Culture - Pending Blood 04/20/24 11:23 Blood Culture - Pending Blood Intake and Output - 24 Hour Total 04/20/24 10:55 thru 04/20/24 12:39 Weight 58.1 kg Other: Urine Color Pale Yellow Urine Appearance Clear Urinary Catheter Urinary Catheter Date of 04/20/24 Insertion [Urethral (Hawkins)] Time of insertion [Urethral ( 12:35 Hawkins)] Falls Risk Assessment History of Falls Admit Due to Fall 04/20/24 12:39 Contributing Factors Unstable,Impairments, 04/20/24 12:39 Incontinence,Medications Ambulatory Aids Uses ambulatory device + 04/20/24 12:39 Tubes/Lines None 04/20/24 12:39 Gait Evaluation W/any additional score 04/20/24 12:39 Cognition No cognitive impairment 04/20/24 12:39 Fall Total Score 87 04/20/24 12:39 Level of Risk Maximum Risk 04/20/24 12:39 Problems (Last Updated 04/20/24 @ 17:56 by Barby Middleton, DO) History of CVA (cerebrovascular accident) (Acute) Fracture of both wrists (Acute) Bilateral sensorineural hearing loss (Acute) Goiter (Acute) Fibromyalgia (Chronic) KWAME (obstructive sleep apnea) (Chronic) Movement disorder (Acute) Chronic renal insufficiency, stage III (moderate) (Acute) Anemia (Chronic) Chronic pain syndrome (Chronic) Hypertension (Chronic) v v v v v v v v v Sending and/or Receiving Nurses: Please use comment section below to note any information pertinent to the patient hand-off not included above. Information / Comments: Report received from: mohan ricardo RN
--- NOTE | 2024-04-20 18:15 | RT.EKG_ITS ---
APPROVED REPORT Exam: Resting ECG Reason for Exam: found down at home/Hx:cva/htn/athersclerosis Patient Location: I HR:76 bpm ECG Measurements Heart Rate 76 AXIS CO 185 P 58 QRSd 90 QRS 9 QT 362 T 45 QTc 407 Conclusion Sinus rhythm. 76 normal axis no stemi
--- NOTE | 2024-04-20 18:21 | MCONE_ITS ---
Date of service: 04/20/24 Time of Service: 18:21 Assessment and Plan Assessment and plan (1) Coronary artery calcification seen on CAT scan: Status: Acute Assessment and plan: Patient has no known history of coronary disease. Coronary calcifications as a serendipitous finding are of unknown consequence. She has a long history of hypertension that is being treated with amlodipine. She is hypertensive in the ED. (2) History of CVA (cerebrovascular accident): Status: Acute Assessment and plan: Infarcts in the right occipital area and bilateral basal ganglia without a history of actual CVA that was medically treated. These may have been asymptomatic CVA and could be the cause of some of her movement disorder and balance issues. Patient will need physical therapy involved in getting her up and moving around and further assess her balance issues. Aspirin and statin would be recommended after her lipids are checked. (3) Goiter: Status: Acute Assessment and plan: She has a history of a goiter. She does not appear to be on thyroid replacement. Thyroid function testing is recommended. (4) Fibromyalgia: Status: Chronic Assessment and plan: She has a history of fibromyalgia and chronic pain syndrome. She is on topiramate, meloxicam and takes oxycodone. (5) KWAME (obstructive sleep apnea): Status: Chronic Assessment and plan: Obstructive sleep apnea she uses nocturnal BiPAP. She should be offered nocturnal BiPAP here at her usual settings. This may be made more difficult with the facial bruising that she sustained. (6) Chronic pain: Status: Chronic Assessment and plan: Chronic pain on top of her acute pain will need to be addressed. (7) Movement disorder: Status: Acute Assessment and plan: Movement disorder not characterized. She does not carry a diagnosis of Parkinson's disease. This may be related to previous basal ganglion infarct. (8) Chronic renal insufficiency, stage III (moderate): Status: Acute Assessment and plan: Creatinine on admission is 0.9 she does not show signs of renal insufficiency but this should be followed given the prolonged downtime and elevated CPK level. (9) Anemia: Status: Chronic Assessment and plan: Baseline hemoglobin of 9.4. Follow closely for signs of bleeding. (10) Hypertension: Status: Chronic Assessment and plan: On amlodipine. She may need supplemental medication for blood pressure control. (11) Depression: Status: Chronic Assessment and plan: History of depression. She is on sertraline topiramate and trazodone. History of Present Illness History of Present Illness Chief Complaint: Domestic fall with trauma to eye chin/bilateral wrist fractures Narrative: 73-year-old woman that lives alone in her own home who lost her balance this past evening and fell striking her head and breaking her fall with her arms. She was unable to get up and spent the night on the floor. She was transported to the emergency room by EMS. Trauma workup in the ED revealed bilateral wrist fractures as well as ecchymoses about the eyes and chin. A trauma series of CT scans did not show evidence of fracture or organ rupture. The CT chest does show small bilateral pleural effusions with subjacent infiltrates suggestive of atelectasis or pneumonia. She is admitted to general surgery with hospitalist consult for medical issues. Consults Consult date: 04/20/24 Requesting physician: Barby Middleton Review of Systems Narrative: Patient has known balance problems and a movement disorder. She has had frequent falls in the past. She has a history of chronic pain and fibromyalgia. She has obstructive sleep apnea and wears CPAP. She has had a goiter in the past. She had a fall in 2020 with a left hip fracture status post ORIF. She has chronic renal insufficiency stage III. She has hypertension. She has a history of CVA on her imaging which shows an old right occipital infarct and bilateral basal ganglia infarcts. She had neck surgery so long ago she cannot remember but the imaging shows signs of a C-spine fusion C4-C7. She does not have ongoing problems with her breathing. She has no problems with chest pain. She has no cardiac history. She has no ongoing digestive problems or genitourinary problems. Her musculoskeletal problems include bilateral osteoarthritis of the knees. [facility] All Active Problems (Updated 04/20/24 @ 18:45 by Parish Pond MD) Depression (Chronic) At high risk for skin breakdown (Acute) Periorbital edema (Acute) Hiatal hernia (Chronic) moderate Coronary artery calcification seen on CAT scan (Acute) Diverticula of colon (Acute) DJD (degenerative joint disease), lumbar (Acute) History of CVA (cerebrovascular accident) (Acute) remote Fracture of both wrists (Acute) Goiter (Acute) Fibromyalgia (Chronic) KWAME (obstructive sleep apnea) (Chronic) Chronic pain (Chronic) Movement disorder (Acute) Chronic renal insufficiency, stage III (moderate) (Acute) Anemia (Chronic) Hypertension (Chronic) Medical History (Updated 04/20/24 @ 18:45 by Parish Pond MD) Primary osteoarthritis of left knee We will see the patient back in 4-1/2 months for possible repeat Synvisc 1 in her left knee would consider x-ray in her right knee if she is still significantly symptomatic Osteoarthritis of right knee Steroid injection: 04/05/2020 Has had previous viscosupplementation injections. 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) As treatment for a femoral neck fracture (DOI: 09/16/2020) History of back surgery Hx of cholecystectomy Social History Smoking/Tobacco Use Status: Never Smoking risk assessment performed?: Yes Alcohol Intake: never Drug use: Never Substance use type: does not use Housing: house Do you feel safe at home: Yes Do you feel safe in your relationship?: Yes Additional Social history: lives alone, has caregiver that come 7 days a week, do all the meds Exam Narrative Exam Narrative: She is lying on the gurney fully awake eating some ice cream with her right hand that is in a surgical splint. She smiles makes good eye contact and speech is clear. HENMT Other: She has ecchymoses about the left eye circumferentially. The globe does not appear to be involved. Vision in the left eye is positive to finger counting. Extraocular movements appear to be intact. She has a large ecchymosis on the left side of the chin about 3 and half to 4 cm in diameter deep purple in color. Neck Other: The neck does not show outward signs of deformity and is overall nontender Chest Other: The chest is nontender to palpation. There is no obvious bruising. Resp Other: The lung sounds are generally clear on the right and left. Cardio Other: Heart sounds show a clear S1 and S2 and I do not detect a significant murmur. GI Other: Her abdomen is nondistended and is overall nontender to palpation. Skin Other: The skin in her lower extremity showed no evidence of disruption or bruising. There is no swelling. Neuro Other: She appears to have upper motor function that is normal though formal strength testing was not done. The lower extremities she can flex and extend her legs at the knees and move her feet without apparent difficulty. Extrem Other: Both lower extremities have good pulses and appear to be well-perfused. There is no edema. Results Last Vital Signs Temp 37.2 C 04/20/24 18:01 Pulse 78 04/20/24 18:01 Resp 14 04/20/24 18:01 BP 134/55 L 04/20/24 18:01 Pulse Ox 93 04/20/24 18:01 Labs 04/20/24 11:23 04/20/24 11:23 Labs: Laboratory Results - last 24 hr 04/20/24 04/20/24 04/20/24 11:23 12:25 12:35 WBC 8.28 RBC 3.66 L Hgb 9.2 L Hct 28.9 L MCV 79 L MCH 25.1 L MCHC 31.8 L RDW 16.9 H Plt Count 321 MPV 10.1 Immature Gran % 0.5 Neutrophils % 83.3 Lymphocytes % 7.2 Monocytes % 8.6 Eosinophils % 0.0 Basophils % 0.4 Nucleated RBC % 0.0 Absolute Neutrophils 6.90 H Absolute Lymphocytes 0.60 L Absolute Monocytes 0.71 Absolute Eosinophils 0.00 Absolute Basophils 0.03 PT 10.6 INR 1.1 VBG Lactate 1.3 Sodium 144 Potassium 3.7 Chloride 106 Carbon Dioxide 25.2 Anion Gap 12.8 H BUN 23 H Creatinine 0.9 Est GFR (CKD-EPI 2020) 66.67 Glucose 124 H Calcium 9.2 Magnesium 1.8 Total Bilirubin 0.61 AST 24 ALT 17 Alkaline Phosphatase 74 Creatine Kinase 275 H Troponin I 15 19 Total Protein 8.4 H Albumin 3.5 Urine Color Yellow Urine Clarity Clear Urine pH 5.5 Ur Specific [place] 1.015 Urine Protein 30 H Urine Ketones Negative Urine Blood Negative Urine Nitrite Negative Urine Bilirubin Negative Urine Urobilinogen 0.2 Ur Leukocyte Esterase Negative Urine RBC 3-5 H Urine WBC Negative Ur Epithelial Cells Rare Urine Crystals Negative Urine Bacteria Few Urine Casts 0-2 Fine Granular Urine Mucus Moderate Urine Other Few Renal Ur Culture Indicated? No Urine Glucose Negative 04/20/24 04/20/24 04/20/24 14:10 18:26 20:26 WBC RBC Hgb Hct MCV MCH MCHC RDW Plt Count MPV Immature Gran % Neutrophils % Lymphocytes % Monocytes % Eosinophils % Basophils % Nucleated RBC % Absolute Neutrophils Absolute Lymphocytes Absolute Monocytes Absolute Eosinophils Absolute Basophils PT INR VBG Lactate Sodium Potassium Chloride Carbon Dioxide Anion Gap BUN Creatinine Est GFR (CKD-EPI 2020) Glucose Calcium Magnesium Total Bilirubin AST ALT Alkaline Phosphatase Creatine Kinase Troponin I Cancelled Cancelled Cancelled Total Protein Albumin Urine Color Urine Clarity Urine pH Ur Specific [place] Urine Protein Urine Ketones Urine Blood Urine Nitrite Urine Bilirubin Urine Urobilinogen Ur Leukocyte Esterase Urine RBC Urine WBC Ur Epithelial Cells Urine Crystals Urine Bacteria Urine Casts Urine Mucus Urine Other Ur Culture Indicated? Urine Glucose Imaging CT scan - chest: report reviewed (There are bilateral pleural effusions with subjacent infiltrates that could be atelectasis or pneumonia) EKG: report reviewed and image reviewed (Sinus rhythm at 74 bpm. There is quite a lot of artifact. There are no ST to T changes that look worrisome.)
[2024-04-20] MEDS: Normal Saline Flush 10 ML SYR IVP (19:30)
[2024-04-20] MEDS: ACETAMINOPHEN 1,000 MG/100 ML BAG 400 MG IVPB (19:30)
[2024-04-20] MEDS: Senna TAB 1 TAB PO (19:31)
[2024-04-20] MEDS: Pantoprazole 40 MG VIAL IVP (19:31)
[2024-04-20] MEDS: HYDROmorphone 1 MG/ML SYR 0.5 MG IVP (19:46)
[2024-04-20] MEDS: HYDROmorphone 1 MG/ML SYR IVP (20:10)
[2024-04-20] MEDS: Magnesium Citrate 300 ML BTL 150 ML PO (20:28)
[2024-04-21] VITALS (31 sets, daily range): BP systolic 113–160; BP diastolic 58–81; PULSE 61–78; RESP 10–32; TEMP 36.8–37.3; O2SAT 90–100
[2024-04-21] MEDS: HYDROmorphone 1 MG/ML SYR IVP ×8 (02:32→23:31)
[2024-04-21] MEDS: ACETAMINOPHEN 1,000 MG/100 ML BAG 400 MG IVPB ×3 (04:48→19:29)
[2024-04-21 06:17] LABS: Abs Immature Grans 0.01 10^3/uL (0.0-0.06); Absolute Basophil Count 0.03 10^3/uL (0.0-0.2); Absolute Eosinophil Count 0.06 10^3/uL (0.0-0.7); Absolute Lymphocyte Count 1.02 10^3/uL (1.2-3.4); Absolute Monocyte Count 0.48 10^3/uL (0.1-0.8); Absolute Neutrophil Count 2.28 10^3/uL (1.2-6.7); Basophils % 0.8 %; Eosinophils % 1.5 %; HCT 21.9 % (36.0-46.0); Immature Grans % 0.3 %; Lymphocytes % 26.3 %; MCHC 31.1 % (32.0-36.0); MCV 81 fL (80-95); MPV 10.2 fL (8.0-11.0); Monocytes % 12.4 %; Neutrophils % 58.7 %; Platelet Count 221 10^3/uL (130-400); RBC 2.72 10^6/uL (3.93-5.22); RDW 17.3 % (11.7-14.6); RDW-SD 50.4 fL; WBC 3.88 10^3/uL (4.4-10.8)
[2024-04-21 06:23] LABS: Reticulocyte 0.8 % (0.5-2.4)
[2024-04-21 06:28] LABS: INR 1.1 (0.9-1.1); Prothrombin Time 10.8 sec (9.1-11.1)
[2024-04-21 06:32] LABS: HGB 6.8 g/dL (11.2-15.7)
[2024-04-21 06:47] LABS: ALT 16 U/L (14-59); AST 19 U/L (15-37); Albumin 2.7 g/dL (3.4-5.0); Alkaline Phosphatase 63 U/L (46-116); Anion Gap 6.1 mmol/L (3-11); BUN 26 mg/dL (7-18); Bilirubin, Total 0.31 mg/dL (0.2-1.0); CO2 28.9 mmol/L (21.0-32.0); CREATININE 1.2 mg/dL (0.55-1.02); Calcium 8.7 mg/dL (8.5-10.1); Chloride 108 mmol/L (98-107); Estimated GFR 47.21 (mL/min/1.73m2); Ferritin 64 ng/mL (8-252); Glucose 93 mg/dL (74-106); Sodium 143 mmol/L (136-145); Total Protein 6.7 g/dL (6.4-8.2); Troponin I 16 ng/L (<or=51)
[2024-04-21 07:05] LABS: Calculated LDL 95 mg/dL (<100); Cholesterol 163 mg/dL (<200); Folate > 20.0 ng/mL (8.6-20.0); HDL Cholesterol 57 mg/dL (40-60); TSH (W/Ref FT4) 1.94 uIU/mL (0.36-3.74); Triglyceride 55 mg/dL (<150); Vitamin B12 563 pg/mL (193-986)
[2024-04-21 07:22] LABS: Creatine Kinase 124 U/L (26-192); LDH 184 U/L (81-234)
[2024-04-21] MEDS: Senna TAB 1 TAB PO ×2 (07:59→19:28)
[2024-04-21] MEDS: Pantoprazole 40 MG VIAL IVP (07:59)
[2024-04-21] MEDS: amLODIPine 10 MG TAB PO (07:59)
[2024-04-21] MEDS: Sertraline 50 MG TAB 75 MG PO (07:59)
[2024-04-21 08:01] LABS: HCT 23.9 % (36.0-46.0); HGB 7.5 g/dL (11.2-15.7)
[2024-04-21] MEDS: Topiramate 25 MG TAB PO (08:01)
[2024-04-21] MEDS: Normal Saline Flush 10 ML SYR IVP ×2 (08:02→19:29)
--- NOTE | 2024-04-21 08:05 | RESPIRATORY ---
Spoke with pt about home CPAP and pt advised she no longer uses it (hasn't used at home in a couple of months as she felt like she couldn't breathe). Pt states she sleeps good without using CPAP and has no interest in using hospital machine.
--- NOTE | 2024-04-21 08:39 | PDOC.CMIN ---
Date of service: 04/21/24 Time of Service: 08:39 Care Management Initial Assmt Initial Assessment Reason for Hospitalization: Fall at home, bilateral wrist fractures Functional Status/Living Situation Patient Presentation: Tegan was lying in bed accompanied by her daughter Renetta, sister Rosangela and brother in law when CM with her. CM spoke with Tegan with and without family present. Tegan advises that she does not want to go to a rehab, and wants to discharge home and have people come to me. Tegan is well supported in the community and lives alone and reports that she falls once every three months. Pts palliative care physician in the community is Suad Mcdowell from [facility]. At this time Suad is going to cancel home support on a day by day basis until her discharge plan is known. Suad reports that Tegan is receives the max services they can offer and confirmed that the flat affect noticed by this policy writer is the pts baseline. Her children are both supportive, her daughter lives out of town and son is local. [facility] goes out a couple of hours a day, 7 days a week to help with personal care and house keeping. Town of Residence: [place] Resides with: Alone Significant Other/Family: Local Caregiver/Guardian: C highest needs, caregiver 2 hours day, 7 days a week. 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) Instrumental Activities of Daily Living (ADLs): Requires support Medications Medication Management: No Issues/Barriers identified Physical Functioning/Mobility Assistive Device: Walker Advance Directives Advance Directives: Do you have an Advance Directive: Y 11/06/12 18:01 AD On File at [facility]: Y 09/16/20 21:57 Date Asked 10/19/23 10/19/23 14:08 AD Date Reviewed 04/20/24 04/20/24 11:23 COLST On File at [facility] COLST Date Scanned Code Status Resuscitation Status Full Code Portal Pt does not currently have a portal and education provided: Yes Insurance Coverage/Financial Issues Insurance: Medicare Medicaid Care Team Visit Care Team Role Provider Type Marixa Kurtz Primary Care Provider NON-[facility] STAFF PHYSICIAN Cristal Marin Other Providers [employer] Ca Srinivasan, ARLEN, [facility] Other Providers NURSING CENTER TUTOR Josie Rodriguez Other Providers NURSING CENTER TUTOR Abril Michael Other Providers [employer] Jonathan Paulino MD Other Providers [facility] STAFF PHYSICIAN Willa Jaramillo Other Providers [employer] InPatient Roberto Mahmood Other Providers OTHER Luisa Harris RN Other Providers [employer] Neil Gary RDN Other Providers NURSING CENTER TUTOR DARIO Ramos Emergency Provider [employer] OPERATOR Barby Middleton, DO Admit Provider OSTEOPATHIC DOCTOR Attending Provider Discharge Potential Discharge Needs: PCP F/U Appt and Surgical F/U Appt Anticipated Barriers to Discharge: Medical Status (Wrist fractures, surgery tomorrow) Patient/Family Education Needs: Review discharge instructions, discuss Ask Me Three Plan: Discharge plan is unclear at this time. Surgery is planned for tomorrow, PT recommendations to follow. Well connected in the community, does not have 08/01 caregiver support. PFSH All Active Problems (Updated 04/21/24 @ 08:09 by Jonathan Paulino MD) Closed fracture of left distal radius (Acute) Closed fracture of right distal radius (Acute) Heart murmur (Acute) Depression (Chronic) At high risk for skin breakdown (Acute) Periorbital edema (Acute) Hiatal hernia (Chronic) moderate Coronary artery calcification seen on CAT scan (Acute) Diverticula of colon (Acute) DJD (degenerative joint disease), lumbar (Acute) History of CVA (cerebrovascular accident) (Acute) remote Fracture of both wrists (Acute) Goiter (Acute) Fibromyalgia (Chronic) KWAME (obstructive sleep apnea) (Chronic) Chronic pain (Chronic) Movement disorder (Acute) Chronic renal insufficiency, stage III (moderate) (Acute) Anemia (Chronic) Hypertension (Chronic) Medical History (Updated 04/21/24 @ 08:09 by Jonathan Paulino MD) Primary osteoarthritis of left knee We will see the patient back in 4-1/2 months for possible repeat Synvisc 1 in her left knee would consider x-ray in her right knee if she is still significantly symptomatic Osteoarthritis of right knee Steroid injection: 04/05/2020 Has had previous viscosupplementation injections. 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) As treatment for a femoral neck fracture (DOI: 09/16/2020) History of back surgery Hx of cholecystectomy Social History Smoking/Tobacco Use Status: Never Smoking risk assessment performed?: Yes Alcohol Intake: never Drug use: Never Substance use type: does not use Housing: house Do you feel safe at home: Yes Do you feel safe in your relationship?: Yes Additional Social history: lives alone, has caregiver that come 7 days a week, do all the meds SDOH(Care Management) Screening Will the Patient Participate in the Screening?: Unable to obtain
--- NOTE | 2024-04-21 09:13 | PT.INTREAT ---
PT Notes Visit Reasons: Fall at home b/1 wrist fractures Patient with comminuted and intraarticular R distal radius and L distal radioulnar fractures scheduled for surgery tomorrow morning. Dr. Fuller recommended PT evlauation after surgery.
[2024-04-21] MEDS: diphenhydrAMINE 25 MG CAP PO (09:56)
[2024-04-21] MEDS: Acetaminophen 325 MG TAB 650 MG PO (09:57)
--- NOTE | 2024-04-21 10:30 | DI.US_ITS ---
APPROVED REPORT EXAM: Comprehensive 2D, Doppler, and color-flow Echocardiogram Patient Location: In-Patient Room/Bed: 219 Social Insurance Specialist: Tiago Wheat RDCS (AE) Indications: CVA, HTN, atherosclerosis, wrist FX, found down Other Information Study Quality: Adequate. Technically limited study due to inability to position patient due to bilate ral wrist fractures. Conclusion Normal left ventricular wall thickness and chamber size. EF is 65%. Wall motion is normal Normal right ventricular size and function Both atria are normal in size Aortic valve is sclerotic and trileaflet. There is minimal aortic stenosis with a mean gradient of 1 0 mmHg. Trace aortic regurgitation Estimated right ventricular systolic pressure is 41 mmHg Wall motion Left Ventricle The left ventricle is normal size. The left ventricular systolic function is normal. The left ventric ular ejection fraction is within the normal range. There is normal left ventricular wall thickness. T here is normal LV segmental wall motion. There is no ventricular septal defect visualized. LVEF is 65 %. Right Ventricle The right ventricle is normal size. The right ventricular systolic function is normal. Atria The left atrium size is normal. The right atrium size is normal. The interatrial septum is intact wit h no evidence for an atrial septal defect. Aortic Valve The Aortic valve is sclerotic. Mean gradient is 10 mmHg Trace aortic regurgitation. Mitral Valve The mitral valve is normal in structure. No evidence of mitral valve stenosis. Mild mitral regurgitat ion. Tricuspid Valve The tricuspid valve is normal in structure. There is no tricuspid valve stenosis. Trace tricuspid reg urgitation. The RVSP is 40.9 mmHg. Pulmonic Valve Pulmonic valve is not well visualized. Great Vessels The aortic root is normal in size. Ascending aorta is not well visualized. Aortic arch is not well vi sualized. IVC is normal in size and collapses >50% with inspiration. Pericardium There is no pericardial effusion. 2D Dimensions IVSD d PLAX 0.94 cm F: 0.6-1.0 Ao Root d 2.79 cm F: 2.7 - 3.3 LVPW d PLAX 0.88 cm F: 0.6 - 1.0 LVID d PLAX 4.14 cm F: 3.8 - 5.2 LVDs 2.70 cm F: 2.2 - 3.5 LV EF Teichholz 64.5 % FS 34.83 % LV EDV (Teich) 75.8 mL LV ESV (Teich) 26.9 mL Stroke Vol Index (Teich) 29.65 M-Mode TAPSE 2.72 cm (M/F) >1.7 Auto EF LV EDV A4C 95.8 mL LV EDV A2C 91.4 mL LV EDV BP 95.7 mL LV ESV A4C 32.7 mL LV ESV A2C 33.9 mL LV ESV BP 33.4 mL LVEF(%) A4C 65.8 % LVEF(%) A2C 62.9 % LVEF(%) BP 65.0 % LV SV A4C 63.1 ml LV SV A2C 57.5 ml LV SV BP 62.2 ml LV CO A4C 4.6 L/min LV CO A2C 4.3 L/min LV CO BP 4.5 L/min HR A4C 73.48 BPM HR A2C 74.39 BPM LV EDV Index (BP) LA Volume LA Length A4C 4.8 cm LA Length A2C 5.0 cm LA Area A4C s 13.06 cm2 LA Area A2C s 16.04 cm2 LA Vol A4C A-L 30.38 mL LA Vol A2C A-L 43.90 mL LA Vol Biplane A-L 37.3 mL LA Vol/BSA A4C A-L LA Vol/BSA A2C A-L LA Vol/BSA BP A-L 22.6 mL/m2 LA Vol A4C MOD 28.8 mL LA Vol A2C MOD 42.5 mL LA Vol BP MOD 35.4 mL RA Volume RA Area A4C 15.2 cm2 RA ESV A4C (A-L) 44.0mL RA Vol/BSA A4C A-L RA Length A4C 4.5 cm RA ESV A4C (MOD) 39.0mL LV Diastology MV E' medial 0.084 (>0.07 m/s) MV E Vmax 0.59 (0.4-1.3 m/s) MV E/E' MED 7.03 (<14) MV A Vmax 0.95 (0.4-1.3 m/s) MV E' lateral 0.102 (>0.1 m/s) E/A Ratio 0.6 MV E/E' LAT 5.79 (<14) MV E' Average 0.093 m/s MV E/E'(average) 6.35 Aortic Valve AoV Vmax 2.18 m/s LVOT Vmax 1.19 m/s AoV Peak Grad 19.1 mmHg LVOT Peak Grad 5.7 mmHg AoV Area (Vmax) 1.50 cm2 LVOT VTI 0.259 m AoV VTI 0.428 m LVOT Mean Grad 3.5 mmHg AoV Mean Ty. 1.46 m/s LVOT SV 71.43 mL AoV Mean Grad 9.8 mmHg LVOT Diam s 1.85 cm AoV Area (VTI) 1.67 cm2 AV Regurg Peak Gr. 19.06 mmHg Velocity Ratio 0.55 Mitral Valve MV Vmax TIPS 0.87 m/s MV Mean Grad 1.0 (<2mmHg) MV VTI 0.230 m Pulmonary Valve PV Vmax 0.71 (0.5-1.5 m/s) RVOT Vmax 0.48 m/s PV Peak Grad 2.0 mmHg RVOT Peak Gr. 0.9 mmHg PV Mean Ty 0.46 m/s RVOT VTI 0.112 m PV Mean Grad 0.9 mmHg RVOT Mean Gr. 0.6 mmHg Tricuspid Valve RA Pressure 3.00 mmHg TR Vmax 3.08 m/s TR Peak Grad 37.8 mmHg RVSP (TR) 40.9 mmHg
[2024-04-21] MEDS: Lactated Ringers 1,000 ML 100 ML IV ×2 (10:46→21:32)
[2024-04-21 11:02] LABS: Magnesium 2.2 mg/dL (1.8-2.4)
--- NOTE | 2024-04-21 11:29 | NS.NUTBLAN_ITS ---
Date of service: 04/21/24 Time of Service: 11:29 Nutritional Consult ASSESSMENT: Received nutrition consult on pt regarding below weight. Pt is 73yo female admitted after fall at home resulting in fxr of L and R radii. PMH significant for depression, high risk for skin breakdown, Coronary artery calcification, fibromyalgia, HTN, KWAME, renal insufficiency, movement disorder, HTN. She has been an assist feed and ordering with kitchen staff what she prefers from the menu/cafeteria. She is getting chocolate ONS at lunch and dinner to supplement her intake. current BMI as of 04/24 is 23.6 with a recorded weight gain over this admission of 6+kg with only trace edema noted. Pt tolerating regular diet. total protein 11/4wnl with low albumin (more indicative of inflammation than protein status) NUTRITIONAL DIAGNOSIS: At risk for compromised energy intake due to bilat fxrs to hands. INTERVENTION: will continue bid ONS to supplement oral intake and check in with patient to v yolis if desired to other options. MONITORING AND EVALUATION: will monitor po intake, ons intake, weight trends, labs Time Spent in Nutritional Counseling and Treatment: 10 min
--- NOTE | 2024-04-21 16:58 | W.PALLCONSUL ---
Date of service: 04/21/24 Time of Service: 16:00 History of Present Illness Narrative: Ms. Javed is a 73 y/o F currently hospitalized 2/2 BUE wrist fractures; PMHx sig for h/o CVA, IBS, fibromyalgia, KWAME, HTN; - she is tired today, but agrees to a short visit Hospital course: fell at home trying to move furniture, was stuck on floor until caregiver called for 911, presented to ED w/bilateral fractured wrists, admitted to [facility] for potential ortho surgery on Sunday. in ICU on MS status, unable to independently use call [place] - PC consult placed to review CODE status Tegan completed an AD in 2003 and 2010, both indicate she would not want LST if she were not able to think or act for self, w/a preference for comfort focused care. 2010 AD identifies daughter Renetta and son Amor as HCAs. Tegan agrees with these statements today. She does not want CPR, she does not want intubation. She does not want tubes to keep her alive. Her pain is bad, maybe the medications are helping. per staff: she has been adamantly against SNF post surgery, people can come to me, she does not have the means to do this herself. Assessment and Plan Assessment and plan (1) Heart murmur: Status: Acute (2) At high risk for skin breakdown: Status: Acute (3) History of CVA (cerebrovascular accident): Status: Acute (4) Fracture of both wrists: Status: Acute (5) Chronic pain: Status: Chronic (6) ACP (advance care planning): Status: Acute Assessment and plan: Reviewed current code status and preferences: DNR/I, agreeable to switching to full code for surgery only. would not want to be kept alive on tubes/machines, if surgery requires intubation, she would want this removed/stopped, even if it means she would . Reviewed HCA, Renetta and Amor, she feels they both understand her preferences; reviewed AD preferences will defer COLST completion until after surgery, change to DNR/I in chart (7) Palliative care patient: Status: Acute Assessment and plan: PC soft introduction today, confirm CODE status and need for full code/intubation options for surgery, she agrees to PC will continue to follow Tegan while inpatient, potentially Sunday, to complete COLST as appropriate, discharge planning and assisted plan of care Review of Systems Narrative: as per HPI PFSH All Active Problems (Updated 04/21/24 @ 17:11 by Megha Rangel NP) Palliative care patient (Acute) ACP (advance care planning) (Acute) Closed fracture of left distal radius (Acute) Closed fracture of right distal radius (Acute) Heart murmur (Acute) Depression (Chronic) At high risk for skin breakdown (Acute) Periorbital edema (Acute) Hiatal hernia (Chronic) moderate Coronary artery calcification seen on CAT scan (Acute) Diverticula of colon (Acute) DJD (degenerative joint disease), lumbar (Acute) History of CVA (cerebrovascular accident) (Acute) remote Fracture of both wrists (Acute) Goiter (Acute) Fibromyalgia (Chronic) KWAME (obstructive sleep apnea) (Chronic) Chronic pain (Chronic) Movement disorder (Acute) Chronic renal insufficiency, stage III (moderate) (Acute) Anemia (Chronic) Hypertension (Chronic) Medical History Primary osteoarthritis of left knee We will see the patient back in 4-1/2 months for possible repeat Synvisc 1 in her left knee would consider x-ray in her right knee if she is still significantly symptomatic Osteoarthritis of right knee Steroid injection: 04/05/2020 Has had previous viscosupplementation injections. 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) As treatment for a femoral neck fracture (DOI: 09/16/2020) History of back surgery Hx of cholecystectomy Social History Smoking/Tobacco Use Status: Never Smoking risk assessment performed?: Yes Alcohol Intake: never Drug use: Never Substance use type: does not use Housing: house Do you feel safe at home: Yes Do you feel safe in your relationship?: Yes Additional Social history: lives alone, has caregiver that come 7 days a week, do all the meds Exam Narrative Exam Narrative: General: older adult female, lying in ICU bed w/HOB elevated, watching TV on arrival HEENT: hematomas across face, predominately L sided on forehead and chin, hearing grossly WNL Resp: even and unlabored, speaks full sentences w/no SOB; no audible wheeze/cough Ext: BUE arms wrapped w/tips of fingers visible, pale, no cyanosis Psych: flat affect, delayed speech; thought process WNL Results Last Vital Signs Temp 99.1 F 04/21/24 11:33 Pulse 74 04/21/24 16:01 Resp 19 04/21/24 16:01 BP 143/78 H 04/21/24 16:01 Pulse Ox 93 04/21/24 16:01 Labs 04/21/24 07:50 04/21/24 05:50 Labs: Laboratory Results - last 24 hr 04/20/24 04/20/24 04/20/24 11:23 18:26 20:26 WBC RBC Hgb Hct MCV MCH MCHC RDW Plt Count MPV Reticulocyte % (Auto) Immature Gran % Neutrophils % Lymphocytes % Monocytes % Eosinophils % Basophils % Nucleated RBC % Absolute Neutrophils Absolute Lymphocytes Absolute Monocytes Absolute Eosinophils Absolute Basophils PT INR Sodium Potassium Chloride Carbon Dioxide Anion Gap BUN Creatinine Est GFR (CKD-EPI 2020) Glucose Calcium Magnesium Ferritin Total Bilirubin AST ALT Alkaline Phosphatase Lactate Dehydrogenase Creatine Kinase Troponin I Cancelled Cancelled Total Protein Albumin Triglycerides Total Cholesterol LDL Cholesterol, Calc HDL Cholesterol Vitamin B12 Folate TSH ABO/Rh Blood Type Recheck AB Positive Antibody Screen Crossmatch 04/21/24 04/21/24 05:50 07:50 WBC 3.88 L RBC 2.72 L Hgb 6.8 L* D 7.5 L Hct 21.9 L 23.9 L MCV 81 MCH 25.0 L MCHC 31.1 L RDW 17.3 H Plt Count 221 MPV 10.2 Reticulocyte % (Auto) 0.8 Immature Gran % 0.3 Neutrophils % 58.7 Lymphocytes % 26.3 Monocytes % 12.4 Eosinophils % 1.5 Basophils % 0.8 Nucleated RBC % 0.0 Absolute Neutrophils 2.28 Absolute Lymphocytes 1.02 L Absolute Monocytes 0.48 Absolute Eosinophils 0.06 Absolute Basophils 0.03 PT 10.8 INR 1.1 Sodium 143 Potassium 4.0 Chloride 108 H Carbon Dioxide 28.9 Anion Gap 6.1 BUN 26 H Creatinine 1.2 H Est GFR (CKD-EPI 2020) 47.21 Glucose 93 Calcium 8.7 Magnesium 2.2 Ferritin 64 Total Bilirubin 0.31 AST 19 ALT 16 Alkaline Phosphatase 63 Lactate Dehydrogenase 184 Creatine Kinase 124 Troponin I 16 Total Protein 6.7 Albumin 2.7 L Triglycerides 55 Total Cholesterol 163 LDL Cholesterol, Calc 95 HDL Cholesterol 57 Vitamin B12 563 Folate > 20.0 H TSH 1.94 ABO/Rh AB Positive Blood Type Recheck Antibody Screen NEGATIVE Crossmatch See Detail Time Spent Time Spent with Patient Time Spent(min): 60
--- NOTE | 2024-04-21 17:26 | OCONE_ITS ---
Date of service: 04/21/24 Time of Service: 07:45 History of Present Illness History of Present Illness Chief Complaint: Bilateral wrist fractures Narrative: Tegan is a 73 year old female who fell at home while rearranging some furniture. She was down for some time until a caregiver called for EMS support. She was brought to the ED and diagnosed with bilateral intra-articular and comminuted distal radius fractures. She also had significant facial bruising but no bleed on CT. She was admitted initially to surgery but then transferred to the hospitalist service. She has been in the ICU on med-surg overflow. She reports pain which is a baseline for her. She feels the pain in the wrists is better with the splints on although she doesn't like the splints. She had more pain when the wrist fractures weren't in splints. She denies numbness and tingling. She denies pain in the elbow or shoulder. She has been reporting pain about her back as well - everywhere. She does have chronic pain throughout and is on narcotic pain medications for this. She wants to return home. She has reported no chest pain, cough, shortness of breath. She had a mild fever and thus blood cultures were obtained which had 1/2 bottles positive. These have been redrawn but without any acute clinical change. Consults Consult date: 04/20/24 Requesting physician: Barby Middleton Consult Reason Bilateral wrist fractures Assessment and Plan Assessment and plan (1) Closed fracture of left distal radius: Status: Acute Qualifiers: Encounter type: initial encounter Fracture morphology: other intra- articular Qualified Code(s): S52.572A - Other intraarticular fracture of lower end of left radius, initial encounter for closed fracture (2) Closed fracture of right distal radius: Status: Acute Assessment and plan: Tegan is a 73 year old female who fell at home, resulting in bilateral displaced, intra-articular distal radius fractures. This is complicated by her ongoing balance issues and chronic pain to name a few. She usually lives relatively independet. Given the displaced nature of the fractures and the intra-articular nature, I would recommend fixation. At a minimum, she needs closed reuction but given the bilateral injury and the characteristics of the fracture, operative fixation would provide the best potential recovery and ability to remain functional. I discussed this with her and she would like surgery but is frustrated by all of this. I did discuss other treatments including the closed reduction and casting. I reviewed the risks of the procedure to include bleeding, infection, pain, stiffness, skin healing difficulties. She will rescind DNR/DNI status for the surgery but only for that. NPO after midnight tonight. Plan for OR tomorrow afternoon. Qualifiers: Encounter type: initial encounter Fracture morphology: other intra- articular Qualified Code(s): S52.571A - Other intraarticular fracture of lower end of right radius, initial encounter for closed fracture Review of Systems All systems reviewed & are unremarkable except as noted in HPI and below PFSH All Active Problems (Updated 04/21/24 @ 20:49 by Jonathan Paulino MD) Closed fracture of distal end of radius (Acute) Palliative care patient (Acute) ACP (advance care planning) (Acute) Closed fracture of left distal radius (Acute) Closed fracture of right distal radius (Acute) Heart murmur (Acute) Depression (Chronic) At high risk for skin breakdown (Acute) Periorbital edema (Acute) Hiatal hernia (Chronic) moderate Coronary artery calcification seen on CAT scan (Acute) Diverticula of colon (Acute) DJD (degenerative joint disease), lumbar (Acute) History of CVA (cerebrovascular accident) (Acute) remote Fracture of both wrists (Acute) Goiter (Acute) Fibromyalgia (Chronic) KWAME (obstructive sleep apnea) (Chronic) Chronic pain (Chronic) Movement disorder (Acute) Chronic renal insufficiency, stage III (moderate) (Acute) Anemia (Chronic) Hypertension (Chronic) Medical History Primary osteoarthritis of left knee We will see the patient back in 4-1/2 months for possible repeat Synvisc 1 in her left knee would consider x-ray in her right knee if she is still significantly symptomatic Osteoarthritis of right knee Steroid injection: 04/05/2020 Has had previous viscosupplementation injections. 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) As treatment for a femoral neck fracture (DOI: 09/16/2020) History of back surgery Hx of cholecystectomy Social History Smoking/Tobacco Use Status: Never Smoking risk assessment performed?: Yes Alcohol Intake: never Drug use: Never Substance use type: does not use Housing: house Do you feel safe at home: Yes Do you feel safe in your relationship?: Yes Additional Social history: lives alone, has caregiver that come 7 days a week, do all the meds Exam Const General: cooperative, healthy appearing, comfortable and no acute distress HENMT Other: Resolving ecchymosis mostly around the left eye. No conjunctival hemorrhage. Neck motions are full and without limiations. No c-spine tenderness. Extrem Other: Both upper extremities are evaluated. Sugartong splints are in place. SILT M/R/U. EPL/FPL/IO intact bilaterally. CR < 2 sec. Results Last Vital Signs Temp 37.3 C 04/21/24 11:33 Pulse 74 04/21/24 16:01 Resp 19 04/21/24 16:01 BP 143/78 H 04/21/24 16:01 Pulse Ox 93 04/21/24 16:01 Labs 04/21/24 17:53 04/21/24 05:50 Labs: Laboratory Results - last 24 hr 04/20/24 04/20/24 04/20/24 11:23 18:26 20:26 WBC RBC Hgb Hct MCV MCH MCHC RDW Plt Count MPV Reticulocyte % (Auto) Immature Gran % Neutrophils % Lymphocytes % Monocytes % Eosinophils % Basophils % Nucleated RBC % Absolute Neutrophils Absolute Lymphocytes Absolute Monocytes Absolute Eosinophils Absolute Basophils PT INR Sodium Potassium Chloride Carbon Dioxide Anion Gap BUN Creatinine Est GFR (CKD-EPI 2020) Glucose Calcium Magnesium Ferritin Total Bilirubin AST ALT Alkaline Phosphatase Lactate Dehydrogenase Creatine Kinase Troponin I Cancelled Cancelled Total Protein Albumin Triglycerides Total Cholesterol LDL Cholesterol, Calc HDL Cholesterol Vitamin B12 Folate TSH ABO/Rh Blood Type Recheck AB Positive Antibody Screen Crossmatch 04/21/24 04/21/24 05:50 07:50 WBC 3.88 L RBC 2.72 L Hgb 6.8 L* D 7.5 L Hct 21.9 L 23.9 L MCV 81 MCH 25.0 L MCHC 31.1 L RDW 17.3 H Plt Count 221 MPV 10.2 Reticulocyte % (Auto) 0.8 Immature Gran % 0.3 Neutrophils % 58.7 Lymphocytes % 26.3 Monocytes % 12.4 Eosinophils % 1.5 Basophils % 0.8 Nucleated RBC % 0.0 Absolute Neutrophils 2.28 Absolute Lymphocytes 1.02 L Absolute Monocytes 0.48 Absolute Eosinophils 0.06 Absolute Basophils 0.03 PT 10.8 INR 1.1 Sodium 143 Potassium 4.0 Chloride 108 H Carbon Dioxide 28.9 Anion Gap 6.1 BUN 26 H Creatinine 1.2 H Est GFR (CKD-EPI 2020) 47.21 Glucose 93 Calcium 8.7 Magnesium 2.2 Ferritin 64 Total Bilirubin 0.31 AST 19 ALT 16 Alkaline Phosphatase 63 Lactate Dehydrogenase 184 Creatine Kinase 124 Troponin I 16 Total Protein 6.7 Albumin 2.7 L Triglycerides 55 Total Cholesterol 163 LDL Cholesterol, Calc 95 HDL Cholesterol 57 Vitamin B12 563 Folate > 20.0 H TSH 1.94 ABO/Rh AB Positive Blood Type Recheck Antibody Screen NEGATIVE Crossmatch See Detail Imaging Imaging Studies: X-ray of both wrists show displaced intra-articular fractures with dorsal angulation and flattening of the radial inclination bilaterally.
--- NOTE | 2024-04-21 17:37 | W.PM.PROGNOT ---
Date of Service Date of service: 04/21/24 Time of Service: 17:37 Assessment and Plan Assessment and plan (1) Closed fracture of distal end of radius: Status: Acute Assessment and plan: - Bilateral, was resulted for atraumatic fall -Has been evaluated by orthopedic surgery, plan for patient to go to the operating room tomorrow morning 04/22/2024 -N.p.o. at midnight -Initial concern for murmurs patient had echocardiogram which showed a sclerotic aortic valve with trace aortic regurg no other acute findings (2) Coronary artery calcification seen on CAT scan: Status: Acute Assessment and plan: Patient has no known history of coronary disease. Coronary calcifications as a serendipitous finding are of unknown consequence. She has a long history of hypertension that is being treated with amlodipine. She is hypertensive in the ED. (3) History of CVA (cerebrovascular accident): Status: Acute Assessment and plan: Infarcts in the right occipital area and bilateral basal ganglia without a history of actual CVA that was medically treated. These may have been asymptomatic CVA and could be the cause of some of her movement disorder and balance issues. Patient will need physical therapy involved in getting her up and moving around and further assess her balance issues. Aspirin and statin would be recommended after her lipids are checked. (4) Goiter: Status: Acute Assessment and plan: She has a history of a goiter. She does not appear to be on thyroid replacement. Thyroid function testing is recommended. (5) Fibromyalgia: Status: Chronic Assessment and plan: She has a history of fibromyalgia and chronic pain syndrome. She is on topiramate, meloxicam and takes oxycodone. (6) KWAME (obstructive sleep apnea): Status: Chronic Assessment and plan: Obstructive sleep apnea she uses nocturnal BiPAP. She should be offered nocturnal BiPAP here at her usual settings. This may be made more difficult with the facial bruising that she sustained. (7) Chronic pain: Status: Chronic Assessment and plan: Chronic pain on top of her acute pain will need to be addressed. (8) Movement disorder: Status: Acute Assessment and plan: Movement disorder not characterized. She does not carry a diagnosis of Parkinson's disease. This may be related to previous basal ganglion infarct. (9) Chronic renal insufficiency, stage III (moderate): Status: Acute Assessment and plan: Creatinine on admission is 0.9 she does not show signs of renal insufficiency but this should be followed given the prolonged downtime and elevated CPK level. (10) Anemia: Status: Chronic Assessment and plan: Baseline hemoglobin of 9.4. Follow closely for signs of bleeding. (11) Hypertension: Status: Chronic Assessment and plan: On amlodipine. She may need supplemental medication for blood pressure control. (12) Depression: Status: Chronic Assessment and plan: History of depression. She is on sertraline topiramate and trazodone. Subjective Subjective Interval history since last seen: Patient states that she is doing well. She understands more that she will be going to the OR tomorrow with orthopedic surgery for her wrist fractures. Otherwise she has no other complaints concerns at this time. Exam Narrative Exam Narrative: Well-appearing older female laying in bed in no acute distress, ANO x 4, no significant ecchymosis over right orbital without significant swelling, heart regular rate rhythm, lungs clear to auscultation bilaterally, abdomen soft, nontender, nondistended, bilateral wrists wrapped in Eyad bandages and immobilized Objective Last Vital Signs Temp 99.1 F 04/21/24 11:33 Pulse 74 04/21/24 16:01 Resp 19 04/21/24 16:01 BP 143/78 H 04/21/24 16:01 Pulse Ox 93 04/21/24 16:01 Laboratory Results - last 24 hr 04/20/24 04/20/24 04/20/24 11:23 18:26 20:26 WBC RBC Hgb Hct MCV MCH MCHC RDW Plt Count MPV Reticulocyte % (Auto) Immature Gran % Neutrophils % Lymphocytes % Monocytes % Eosinophils % Basophils % Nucleated RBC % Absolute Neutrophils Absolute Lymphocytes Absolute Monocytes Absolute Eosinophils Absolute Basophils PT INR Sodium Potassium Chloride Carbon Dioxide Anion Gap BUN Creatinine Est GFR (CKD-EPI 2020) Glucose Calcium Magnesium Ferritin Total Bilirubin AST ALT Alkaline Phosphatase Lactate Dehydrogenase Creatine Kinase Troponin I Cancelled Cancelled Total Protein Albumin Triglycerides Total Cholesterol LDL Cholesterol, Calc HDL Cholesterol Vitamin B12 Folate TSH ABO/Rh Blood Type Recheck AB Positive Antibody Screen Crossmatch 04/21/24 04/21/24 05:50 07:50 WBC 3.88 L RBC 2.72 L Hgb 6.8 L* D 7.5 L Hct 21.9 L 23.9 L MCV 81 MCH 25.0 L MCHC 31.1 L RDW 17.3 H Plt Count 221 MPV 10.2 Reticulocyte % (Auto) 0.8 Immature Gran % 0.3 Neutrophils % 58.7 Lymphocytes % 26.3 Monocytes % 12.4 Eosinophils % 1.5 Basophils % 0.8 Nucleated RBC % 0.0 Absolute Neutrophils 2.28 Absolute Lymphocytes 1.02 L Absolute Monocytes 0.48 Absolute Eosinophils 0.06 Absolute Basophils 0.03 PT 10.8 INR 1.1 Sodium 143 Potassium 4.0 Chloride 108 H Carbon Dioxide 28.9 Anion Gap 6.1 BUN 26 H Creatinine 1.2 H Est GFR (CKD-EPI 2020) 47.21 Glucose 93 Calcium 8.7 Magnesium 2.2 Ferritin 64 Total Bilirubin 0.31 AST 19 ALT 16 Alkaline Phosphatase 63 Lactate Dehydrogenase 184 Creatine Kinase 124 Troponin I 16 Total Protein 6.7 Albumin 2.7 L Triglycerides 55 Total Cholesterol 163 LDL Cholesterol, Calc 95 HDL Cholesterol 57 Vitamin B12 563 Folate > 20.0 H TSH 1.94 ABO/Rh AB Positive Blood Type Recheck Antibody Screen NEGATIVE Crossmatch See Detail Time Spent with Patient Time Spent with Patient: >50 minutes Time was spent: preparing to see the patient(eg.review tests), obtaining and/or reviewing separately otained hiistory, ordering medications,tests, procedures, referring, communicating with other health direct care professional, indepentently interpreting results, counseling the patient and care coordination
[2024-04-21 18:02] LABS: HCT 26.1 % (36.0-46.0); HGB 8.5 g/dL (11.2-15.7)
[2024-04-21] MEDS: traZODone 100 MG TAB 200 MG PO (22:26)
[2024-04-22] VITALS (27 sets, daily range): BP systolic 122–162; BP diastolic 56–87; PULSE 59–68; RESP 12–19; TEMP 36.2–37.3; O2SAT 91–100; BMI 21.8
[2024-04-22] MEDS: ACETAMINOPHEN 1,000 MG/100 ML BAG 400 MG IVPB ×3 (03:53→19:32)
[2024-04-22] MEDS: HYDROmorphone 1 MG/ML SYR IVP ×5 (05:34→19:30)
[2024-04-22 06:30] LABS: HCT 24.8 % (36.0-46.0); HGB 8.1 g/dL (11.2-15.7); MCH 26.7 pg (27.0-33.0); MCHC 32.7 % (32.0-36.0); MCV 82 fL (80-95); MPV 10.2 fL (8.0-11.0); Platelet Count 221 10^3/uL (130-400); RBC 3.03 10^6/uL (3.93-5.22); RDW 16.7 % (11.7-14.6); RDW-SD 49.4 fL; WBC 5.55 10^3/uL (4.4-10.8)
[2024-04-22 06:40] LABS: Anion Gap 7.5 mmol/L (3-11); BUN 20 mg/dL (7-18); CO2 28.5 mmol/L (21.0-32.0); CREATININE 1.1 mg/dL (0.55-1.02); Calcium 8.6 mg/dL (8.5-10.1); Chloride 111 mmol/L (98-107); Glucose 94 mg/dL (74-106); Potassium 4.2 mmol/L (3.5-5.1); Sodium 147 mmol/L (136-145)
[2024-04-22] MEDS: Sertraline 50 MG TAB 75 MG PO (07:59)
[2024-04-22] MEDS: Pantoprazole 40 MG VIAL IVP (07:59)
[2024-04-22] MEDS: amLODIPine 10 MG TAB PO (08:01)
[2024-04-22] MEDS: Topiramate 25 MG TAB PO (08:01)
[2024-04-22] MEDS: Normal Saline Flush 10 ML SYR IVP ×2 (08:01→20:14)
[2024-04-22] MEDS: Senna TAB 1 TAB PO ×2 (08:01→19:33)
[2024-04-22] MEDS: Lactated Ringers 1,000 ML 100 ML IV ×3 (08:10→20:00)
--- NOTE | 2024-04-22 08:58 | PDOC.CMPRO ---
Date of service: 04/22/24 Time of Service: 08:58 Care Management Progress Note Progress Note Text Progress Note Text: Tegan appeared to be comfortably sleeping when CM attempted to meet with her, therefor CM did not wake her. She is going down to the OR today for repair of her bilateral wrist fractures. Currently has blood cultures pending and awaiting a ST consult. When CM met with pt yesterday, she verbalized that she does not want to go to rehab. Her preference is to go home and have services come to her. She is well connected in the community, unlikely to have enough support to discharge home. Tegan lives alone, she has max services through [facility] and [employer] services 2hrs day X 7 days per week (help with personal care and house keeping.) Tegan identifies her 2 adult children, sister and [id number] as being her primary supports. Awaiting PT recommendations. Discharge Potential Discharge Needs: PT Evaluation, PCP F/U Appt and Surgical F/U Appt Anticipated Barriers to Discharge: Medical Status Patient/Family Education Needs: Review discharge instructions, discuss Ask Me Three Transportation: Private vehicle Plan: Bilateral wrist surgery is planned for today, PT recommendations to follow. ST consult is ordered. Declines SNF post surgery. CM will continue to review d/c options with patient when recommendations are better known. SDOH(Care Management) Screening Will the Patient Participate in the Screening?: Unable to obtain
--- NOTE | 2024-04-22 10:45 | ANES.PREOP_ITS ---
General Info Date of Service Date Performed: 04/22/24 Height: 5 ft 5 in Weight: 59.6 kg Body Mass Index (BMI): 21.8 Surgical Procedure: Operation Date: 04/22/24 13:25 Proposed Procedure Side Surgeon p Wrist ORIF Distal Radius Bilateral Jonathan Paulino MD s Central Line Placement Barby Middleton, DO Meds Allergies and Home Medications Allergies Allergy/AdvReac Type Severity Reaction Status Date / Time sulfamethoxazole (From Allergy Diarrhea Verified 02/29/24 00:29 Bactrim) trimethoprim (From Bactrim) Allergy Diarrhea Verified 02/29/24 00:29 morphine AdvReac Intermediate Psychosis Unverified 02/29/24 00:29 baclofen AdvReac Unknown Unknown Unverified 02/29/24 00:29 chlorthalidone AdvReac Unknown Unknown Unverified 02/29/24 00:29 codeine AdvReac Unknown Unknown Unverified 02/29/24 00:29 dextromethorphan AdvReac Unknown Unknown Unverified 02/29/24 00:29 gabapentin (From Neurontin) AdvReac Unknown Unknown Unverified 02/29/24 00:29 hydrochlorothiazide AdvReac Unknown Unknown Unverified 02/29/24 00:29 pregabalin AdvReac Unknown Dopey Unverified 02/29/24 00:29 Home Medication ?Medication ?Instructions ?Recorded omeprazole 40 mg capsule,delayed 40 mg PO DAILY 05/19/14 release polyethylene glycol 3350 17 17 g PO DAILY PRN PRN 05/19/14 gram/dose oral powder (Miralax) cholecalciferol (vitamin D3) 25 50 mcg PO DAILY 01/05/20 mcg (1,000 unit) tablet (Vitamin D3) vitamin B complex 1 tab PO DAILY 01/05/20 sertraline 50 mg tablet 75 mg PO DAILY 10/19/20 trazodone 100 mg tablet 200 mg PO HS PRN PRN 01/03/21 aspirin 81 mg tablet,delayed 81 mg PO DAILY 06/23/21 release meloxicam 15 mg tablet 15 mg PO DAILY 08/08/21 lorazepam 1 mg tablet (Ativan) 1 mg PO DAILY PRN #10 tabs 10/23/21 oxycodone 40 mg tablet,crush 40 tab PO BID 01/13/22 resistant,extended release 12 hr (OxyContin) amlodipine 10 mg tablet 10 mg PO DAILY 01/14/22 prochlorperazine maleate 5 mg 5 mg PO BID PRN PRN 01/14/22 tablet sennosides 8.6 mg tablet (senna) 8.6 mg PO QPM 01/14/22 topiramate 25 mg tablet (Topamax) 25 mg PO DAILY 08/06/22 lorazepam 1 mg tablet 1 mg PO DAILY PRN #3 tabs 02/02/23 magnesium oxide-magnesium amino 1 cap PO BID 07/16/23 acid chelate 300 mg capsule (Magnesium (oxide/AA chelate)) naloxone 4 mg/actuation nasal spray 4 mg intranasal ONCE PRN 07/16/23 oxycodone 40 mg tablet,crush 20 mg PO QID 07/16/23 resistant,extended release 12 hr (OxyContin) nitrofurantoin 100 mg PO BID 02/29/24 monohydrate/macrocrystals 100 mg capsule Current Visit Medications: Current Medications Generic Name Dose Route Start Last Admin Trade Name Freq PRN Reason Stop Dose Admin Albuterol Sulfate 2.5 mg 04/20/24 17:22 Albuterol 2.5 Mg/3 Ml Inh Soln Vial UPD Q2H PRN PRN Amlodipine Besylate 10 mg 04/21/24 08:30 04/22/24 08:01 Amlodipine 10 Mg Tab PO 10 mg DAILY MONSE Administration Hydromorphone HCl 1 mg 04/20/24 20:02 04/22/24 05:34 Hydromorphone 1 Mg/Ml Syr IVP 1 mg Q2H PRN PRN Administration Acetaminophen 1,000 mg in 100 mls @ 400 mls/hr 04/20/24 20:00 04/22/24 08:02 Ofirmev IVPB Infused Q8H MONSE Infusion Ringer's Solution 1,000 mls @ 100 mls/hr 04/21/24 06:30 04/22/24 08:10 IV 100 mls/hr INFUSION MONSE Administration Cefazolin Sodium/Dextrose 2 gm in 50 mls @ 100 mls/hr 04/22/24 06:00 Ancef Duplex IVPB 04/22/24 23:59 PREOP MONSE IV Miscellaneous Supplies 1 each 04/21/24 09:00 Iv Access IV DIRECTED MONSE Lorazepam 1 mg 04/21/24 07:45 04/21/24 17:45 Lorazepam 2 Mg/Ml Syr IVP 1 mg Q2H PRN PRN Administration Pantoprazole Sodium 40 mg 04/20/24 20:00 04/22/24 07:59 Pantoprazole 40 Mg Vial IVP 40 mg DAILY@0800 MONSE Administration Polyethylene Glycol 17 gm 04/20/24 17:22 Polyethylene Glycol 3350 17 Gm Packet PO DAILY PRN PRN Constipation Sennosides 1 tab 04/20/24 20:00 04/22/24 08:01 Senna Tab PO 1 tab BID MONSE Administration Sertraline HCl 75 mg 04/21/24 08:30 04/22/24 07:59 Sertraline 50 Mg Tab PO 75 mg DAILY MONSE Administration Sodium Chloride 0 ml 04/20/24 11:10 Normal Saline Flush 10 Ml Syr IVP PRN PRN Sodium Chloride 0 ml 04/20/24 20:00 04/22/24 08:01 Normal Saline Flush 10 Ml Syr IVP 10 ml BID MONSE Administration Sodium Chloride 0 ml 04/20/24 11:10 Normal Saline 10 Ml Vial IJ DIRECTED PRN Topiramate 25 mg 04/21/24 08:30 04/22/24 08:01 Topiramate 25 Mg Tab PO 25 mg DAILY MONSE Administration Trazodone HCl 200 mg 04/20/24 17:34 04/21/24 22:26 Trazodone 100 Mg Tab PO 200 mg HS PRN PRN Administration PFSH Active Problems Active Problems: Problem Status Onset Code Closed fracture of distal end of radius Acute S52.509A Palliative care patient Acute Z51.5 ACP (advance care planning) Acute Z71.89 Closed fracture of left distal radius Acute S52.502A Closed fracture of right distal radius Acute S52.501A Heart murmur Acute R01.1 Depression Chronic F32.9 At high risk for skin breakdown Acute Z91.89 Periorbital edema Acute R60.0 Hiatal hernia Chronic K44.9 Coronary artery calcification seen on CAT scan Acute I25.10 Diverticula of colon Acute K57.30 DJD (degenerative joint disease), lumbar Acute M47.816 History of CVA (cerebrovascular accident) Acute Z86.73 Fracture of both wrists Acute S62.101A, S62.102A Goiter Acute E04.9 Fibromyalgia Chronic M79.7 KWAME (obstructive sleep apnea) Chronic G47.33 Chronic pain Chronic G89.29 Movement disorder Acute G25.9 Chronic renal insufficiency, stage III (moderate) Acute N18.30 Anemia Chronic D64.9 Hypertension Chronic I10 Medical History Medical History Primary osteoarthritis of left knee We will see the patient back in 4-1/2 months for possible repeat Synvisc 1 in her left knee would consider x-ray in her right knee if she is still significantly symptomatic Osteoarthritis of right knee Steroid injection: 04/05/2020 Has had previous viscosupplementation injections. Chronic pain syndrome Left elbow contusion Muscle weakness Tendonitis of left rotator cuff Recurrent UTI (urinary tract infection) Hypomagnesemia Primary osteoarthritis, left shoulder Left rotator cuff tear arthropathy Impacted cerumen of both ears Bilateral sensorineural hearing loss Pneumonia Left displaced femoral neck fracture (09/16/20) Fracture of left hip CVA (cerebral vascular accident) 02/2023 Recurrent UTI IBS (irritable bowel syndrome) Urge incontinence Chronic constipation Chronic insomnia Surgical History Surgical History S/P cervical spinal fusion C4-7 History of total left hip replacement (09/17/20) As treatment for a femoral neck fracture (DOI: 09/16/2020) History of back surgery Hx of cholecystectomy Tobacco Smoking/Tobacco Use Status: Never Alcohol Alcohol Intake: never Substance Use Substance use: Never Substance use type: does not use Vital Signs and Lab Results Vital Signs Most Recent Vital Signs in EMR: Most Recent Vital Signs Temp Pulse Resp BP Pulse Ox 37.3 C 64 12 159/73 H 96 04/22/24 00:01 04/22/24 08:01 04/22/24 07:30 04/22/24 08:01 04/22/24 07:30 Lab Results 04/22/24 05:40 04/22/24 05:40 Blood Type / Crossmatch: 2 Antibody Screen NEGATIVE 04/21/24 Crossmatch See Detail 04/21/24 Complete Blood Count: 2 White Blood Count 5.55 10^3/uL (4.4-10.8) 04/22/24 05:40 Red Blood Count 3.03 10^6/uL (3.93-5.22) L 04/22/24 05:40 Hemoglobin 8.1 g/dL (11.2-15.7) L 04/22/24 05:40 Hematocrit 24.8 % (36.0-46.0) L 04/22/24 05:40 Platelet Count 221 10^3/uL (130-400) 04/22/24 05:40 Venous Blood Lactate 1.3 mmol/L (0.6-1.4) 04/20/24 11:23 Complete Metabolic Panel: 2 Sodium 147 mmol/L (136-145) H 04/22/24 05:40 Potassium 4.2 mmol/L (3.5-5.1) 04/22/24 05:40 Chloride 111 mmol/L (98-107) H 04/22/24 05:40 Carbon Dioxide 28.5 mmol/L (21.0-32.0) 04/22/24 05:40 BUN 20 mg/dL (7-18) H 04/22/24 05:40 Creatinine 1.1 mg/dL (0.55-1.02) H 04/22/24 05:40 Est GFR (CKD-EPI 2020) 52.40 (mL/min/1.73m2) 04/22/24 05:40 Magnesium 2.2 mg/dL (1.8-2.4) 04/21/24 05:50 Calcium 8.6 mg/dL (8.5-10.1) 04/22/24 05:40 Albumin 2.7 g/dL (3.4-5.0) L 04/21/24 05:50 Glucose 94 mg/dL (74-106) 04/22/24 05:40 Liver Function Panel: 2 Alanine Aminotransferase (ALT/SGPT) 16 U/L (14-59) 04/21/24 05: 50 Aspartate Amino Transf (AST/SGOT) 19 U/L (15-37) 04/21/24 05:50 Coagulation Panel: 2 INR International Normalized Ratio 1.1 (0.9-1.1) 04/21/24 05:5 0 Prothrombin Time 10.8 sec (9.1-11.1) 04/21/24 05:50 Cardiac Panel: 2 Troponin I 16 ng/L (<or=51) 04/21/24 Creatine Kinase 124 U/L (26-192) 04/21/24 Arterial Blood Gas: 2 No Data to Display Venous Blood Gas: 2 No Data to Display Pancreas Panel: 2 No Data to Display Thyroid Panel: 2 Thyroid Stimulating Hormone (TSH) 1.94 uIU/mL (0.36-3.74) 04/21 05:50 Infectious Disease: 2 No Data to Display Blood Cultures: 2 No Data to Display Toxicology Panel: 2 No Data to Display Anesthesia Assessment and Plan Anesthesia History Personal History: No History of Anesthesia Complications Family History: No Family History of Anesthesia Complications Exercise Tolerance Exercise Tolerance: Metabolic Equivalents>4 Pertinent Negatives Pertinent Negatives: No Symptoms of GERD Cardiac & Pulmonary Exam Cardiac Exam: Normal S1/S2 Heart Sounds Pulmonary Exam: Clear Bilateral Breath Sounds Implantable Cardiac Device Does patient have a Pacemaker or an ICD?: No Airway Exam Known Difficult Airway: No Mallampati Class: 2 Mouth Opening: Normal (> 3cm) Thyromental Distance: Greater than 3 cm Neck Range of Motion: Full ROM Neck Circumference: Normal Teeth Condition: Generalized Poor Dentition ASA Classification ASA Score: ASA 3 Emergency Case?: No NPO Status NPO Status: NPO Clears >2 hours, Solids >8 hours Anesthesia Plan Resuscitation Status: Full Code Anesthesia Technique: General Anesthesia Airway Planned: Endotracheal Tube Monitors Used: Standard Monitors Preoperative Comments:: Complex medical history with prior CVA, coronary artery calcification without symptoms, renal disease, KWAME, hypertension and chronic pain. Angel Zamora CRNA
--- NOTE | 2024-04-22 12:35 | PGE_ITS ---
Date of Service Date of service: 04/22/24 Time of Service: 12:35 Assessment and Plan Assessment and plan (1) Closed fracture of distal end of radius: Status: Acute Assessment and plan: - Bilateral, was resulted for atraumatic fall -Has been evaluated by orthopedic surgery, plan for patient to go to the operating room afternoon of 04/22/2024 -has been NPO since midnight -Initial concern for murmurs patient had echocardiogram which showed a sclerotic aortic valve with trace aortic regurg no other acute findings (2) Coronary artery calcification seen on CAT scan: Status: Acute Assessment and plan: Patient has no known history of coronary disease. Coronary calcifications as a serendipitous finding are of unknown consequence. She has a long history of hypertension that is being treated with amlodipine. She is hypertensive in the ED. (3) History of CVA (cerebrovascular accident): Status: Acute Assessment and plan: Infarcts in the right occipital area and bilateral basal ganglia without a history of actual CVA that was medically treated. These may have been asymptomatic CVA and could be the cause of some of her movement disorder and balance issues. Patient will need physical therapy involved in getting her up and moving around and further assess her balance issues. Aspirin and statin would be recommended after her lipids are checked. (4) Goiter: Status: Acute Assessment and plan: She has a history of a goiter. She does not appear to be on thyroid replacement. Thyroid function testing is recommended. (5) Fibromyalgia: Status: Chronic Assessment and plan: She has a history of fibromyalgia and chronic pain syndrome. She is on topiramate, meloxicam and takes oxycodone. (6) KWAME (obstructive sleep apnea): Status: Chronic Assessment and plan: Obstructive sleep apnea she uses nocturnal BiPAP. She should be offered nocturnal BiPAP here at her usual settings. This may be made more difficult with the facial bruising that she sustained. (7) Chronic pain: Status: Chronic Assessment and plan: Chronic pain on top of her acute pain will need to be addressed. (8) Movement disorder: Status: Acute Assessment and plan: Movement disorder not characterized. She does not carry a diagnosis of Parkinson's disease. This may be related to previous basal ganglion infarct. (9) Chronic renal insufficiency, stage III (moderate): Status: Acute Assessment and plan: Creatinine on admission is 0.9 she does not show signs of renal insufficiency but this should be followed given the prolonged downtime and elevated CPK level. (10) Anemia: Status: Chronic Assessment and plan: Baseline hemoglobin of 9.4. Follow closely for signs of bleeding. (11) Hypertension: Status: Chronic Assessment and plan: On amlodipine. She may need supplemental medication for blood pressure control. (12) Depression: Status: Chronic Assessment and plan: History of depression. She is on sertraline topiramate and trazodone. Subjective Subjective Interval history since last seen: Patient states that she is doing well this morning and understands that she will be going to the OR with orthopedic surgery later this afternoon. She has no other complaints or concerns at this time. Exam Narrative Exam Narrative: Well-appearing older female laying in bed in no acute distress, ANO x 4, no significant ecchymosis over right orbital without significant swelling, heart regular rate rhythm, lungs clear to auscultation bilaterally, abdomen soft, nontender, nondistended, bilateral wrists wrapped in Eyad bandages and immobilized Objective Last Vital Signs Temp 98.4 F 04/22/24 08:30 Pulse 66 04/22/24 12:01 Resp 12 04/22/24 07:30 BP 162/87 H 04/22/24 12:01 Pulse Ox 96 04/22/24 07:30 Laboratory Results - last 24 hr 04/21/24 04/21/24 04/22/24 05:50 17:53 05:40 WBC 5.55 RBC 3.03 L Hgb 8.5 L 8.1 L Hct 26.1 L 24.8 L MCV 82 MCH 26.7 L MCHC 32.7 RDW 16.7 H Plt Count 221 MPV 10.2 Sodium 147 H Potassium 4.2 Chloride 111 H Carbon Dioxide 28.5 Anion Gap 7.5 BUN 20 H Creatinine 1.1 H Est GFR (CKD-EPI 2020) 52.40 Glucose 94 Calcium 8.6 Crossmatch See Detail Time Spent with Patient Time Spent with Patient: >50 minutes Time was spent: preparing to see the patient(eg.review tests), obtaining and/or reviewing separately otained hiistory, ordering medications,tests, procedures, referring, communicating with other health career development facilitator, indepentently interpreting results, counseling the patient and care coordination
[2024-04-22] MEDS: ceFAZolin 2 GM/50 ML BAG IVPB (13:40)
--- NOTE | 2024-04-22 13:58 | W.ANESVAS ---
Midline Placement Date Performed: 04/22/24 Procedure Time: 13:49 Requesting Provider: Barby Middleton Procedure Location: Operating Room Sedation Given (Indicate Dose Given): No Sedation given Patient Mental Status: Performed under general anesthesia Sterility: Hand Hygiene, Surgical Cap, Surgical Mask, Sterile Gloves, Sterile Drape/Sheet and Chlorhexidine Laterality: Left Insertion Site: Basilic Midline Device: PowerGlide Pro 20G Catheter Length: 10 cm Midline Procedure Procedure: Catheter placed without resistance Dressing: Tegaderm Applied and Statlock Applied Blood Return: Present Flushes: Easily Ultrasound: Sterile probe cover and gel used Ultrasound Image Saved?: Yes Number of Attempts (See previous attempts in note section): 1 Procedure Tolerated: No Complications Procedure Outcome: Successful Performed By: Anselmo Vila
[2024-04-22] MEDS: Bupivacaine 0.5% Pres-Free W/EPI 30 ML VIAL (14:33)
--- NOTE | 2024-04-22 15:28 | DI.RAD_ITS ---
Exam(s) XR WRIST RT LIMITED EXAM: XR WRIST RT LIMITED CLINICAL HISTORY: Fracture of both wrists. TECHNIQUE: 2D and realtime digital imaging was performed. COMPARISON: CR XR WRIST RT COMPLETE from 04/20/2024 FINDINGS: Copy images show placement of a volar fixation plate along the distal radius for fracture fixation. The alignment is significantly improved. Please see procedure note for details. Fluoro time: 1 minutes 39 secondsseconds RADIATION DOSE DELIVERED: [email or web address] Forbes=0.78 mGy
--- NOTE | 2024-04-22 16:26 | ROE_ITS ---
Date of service: 04/22/24 Time of Service: 14:00 Operative Note Operative Note DATE OF PROCEDURE: 04/22/24 PRE-OP DIAGNOSIS: Bilateral Intra-aricular Distal Radius Fracture POST-OP DIAGNOSIS: same PROCEDURE: Open Reduction and Internal Fixation of LEFT and RIGHT Distal Radius Fracture, 3 parts SURGEON: Jonathan Paulino [employer] BAG ASSEMBLER: Barby Tong ANESTHESIA TYPE: General LMA/ETT Refer to Anesthesia Record ESTIMATED BLOOD LOSS: 150 PATHOLOGY: none sent TOURNIQUET TIME: 0 COMPLICATIONS: None Patient was transported to: PACU Patient's condition: stable Indications: Tegan is a 73 year old female who I have seen for a distal radius fracture. Given the deformity, displacement, fracture pattern, and effect on daily function, I recommended surgical fixation. I reviewed the risk of the procedure to include bleeding, infection co-pay, stiffness, damage to nerves and vessels, damage to muscles and tendons, malunion, nonunion, hardware prominence, tendon rupture, need for repeat procedures. Despite these risks, the patient elected to proceed. Findings: Both wrists had intra-articular distal radius fractures with 3 primary parts. Each was reduced and fixed with a Synthes volar locking plate. Procedure Description: Tegan was greeted in the preoperative holding area. The history and physical was updated. The consent was reviewed with the patient, agreed and witnessed. The patient was taken to the operating room and placed in the supine position. All bony problems were well-padded. A general anesthetic was then administered. Prior to starting the case a midline was placed into the left arm by anesthesia. Once this was assessed we placed we had better intravenous access and could continue with the case. RIGHT WRIST Starting with the right side, the right arm was placed onto a radiolucent hand table. Prophylactic antibiotics in the form of cefazolin were administered. Tranexamic acid 1 g is also administered. The right arm was prepped with ChloraPrep and draped in a standard fashion. A timeout was performed for safe surgery. Prior to incision, the surgical site was injected with 0.25% bupivacaine. A standard longitudinal incision was made overlying the flexor carpi radialis tendon starting at the distal wrist crease and moving proximally. The skin was incised sharply. The flexor carpi radialis tendon and its sheath is identified. The sheath was opened. The tendon was moved ulnarly in the floor of the sheath was incised. Blunt dissection the flexor pollicis longus muscle belly and tendon were also made radially exposing the pronator quadratus and the distal radius. The pronator quadratus was elevated with an ulnar-based flap. This exposed the volar distal radius and the fracture. A pena elevator was used for full exposure of the volar surface of the distal radius. The primary fracture line was exposed. Using a series of elevators, curettes, and knife, the fracture was fully debrided of any fibrous tissue and callus formation. I used a freer elevator to help mobilize the fragments. There is some comminution involving the dorsum of the epiphysis. I then performed a closed reduction. Using gentle traction and fracture manipulation, this reduction was held. Fluoroscopic images were used to confirm adequate reduction. A reduction was held with a single 1.8 mm K wire through the radial styloid into the radial shaft. An appropriately sized Synthes volar locking plate was then placed onto the bony surface of the distal radius. This was then held there with a distal radius clamp sandwiching the plate to the distal segment. A single K wire was placed through the distal end. Fluoroscopy was once again used to confirm appropriate positioning of the plate on the distal radius. A reduction K wire was placed into the slotted hole on the shaft but not tightened all the way to allow for manipulation of the distal segment onto the proximal shaft. A single nonlocking screw was placed to the distal portion of the plate securing the plate against the bone of the distal radial metaphysis. Once again, the plate was evaluated to make sure it was aligned appropriately. The single screw was also checked to make sure it was in appropriate positioning for trajectory of future screws. The remainder of the screws within the volar locking plate were filled with locking screws. These were made sure not to penetrate the dorsal cortex. Once these were applied the proximal portion of the plate was further reduced down onto the shaft, which further reduce the distal segment. This was held in position with a tightened reduction K wire. Fluoroscopy was then used against confirm appropriate reduction. Nonlocking screws were placed within the 3 shaft screw holes. Final x-rays were obtained which demonstrated adequate reduction and positioning of hardware. The dorsal sunrise view was also obtained to ensure correct sizing of screws. The wound was then thoroughly irrigated. The pronator quadratus was unable to be reapproximated. The deep dermal layer was closed with a 2-0 Vicryl. The skin was closed with 4-0 nylon. The wound was dressed with Xeroform, 4 x 4's, web roll. A short arm splint was applied. LEFT WRIST The drapes were taken down and the back table was kept sterile. The patient was rotated and attention was turned to the left arm. The left arm was placed onto a radiolucent hand table. The left arm was prepped ChloraPrep and draped in a standard fashion. Prior to incision the proposed surgical site was injected with 0.25% bupivac gregory. Then, A standard longitudinal incision was made overlying the flexor carpi radialis tendon starting at the distal wrist crease and moving proximally. The skin was incised sharply. The flexor carpi radialis tendon and its sheath is identified. The sheath was opened. The tendon was moved ulnarly in the floor of the sheath was incised. Blunt dissection the flexor pollicis longus muscle belly and tendon were also made radially exposing the pronator quadratus and the distal radius. The pronator quadratus was elevated with an ulnar-based flap. This exposed the volar distal radius and the fracture. A pena elevator was used for full exposure of the volar surface of the distal radius. The primary fracture line was exposed. Using a series of elevators, curettes, and knife, the fracture was fully debrided of any fibrous tissue and callus formation. I used a freer elevator to help mobilize the fragments. I then performed a closed reduction. Using gentle traction and fracture manipulation, this reduction was held with a crossing 1.8 mm K wire from the radial styloid into the radial shaft. Fluoroscopic images were used to confirm adequate reduction. An appropriately sized Synthes volar locking plate was then placed onto the bony surface of the distal radius. Was then held there with a distal radius clamp sandwiching the plate to the distal segment. A single K wire was placed through the distal end. Fluoroscopy was once again used to confirm appropriate positioning of the plate on the distal radius. A reduction K wire was placed into the slotted hole on the shaft but not tightened all the way to allow for manipulation of the distal segment onto the proximal shaft. A single nonlocking screw was placed to the distal portion of the plate securing the plate against the bone of the distal radial metaphysis. Once again, the plate was evaluated to make sure it was aligned appropriately. The single screw was also checked to make sure it was in appropriate positioning for trajectory of future screws. The remainder of the screws within the volar locking plate were filled with locking screws. These were made sure not to penetrate the dorsal cortex. Once these were applied the proximal portion of the plate was further reduced down onto the shaft, which further reduce the distal segment. This was held in position with a tightened reduction K wire. Fluoroscopy was then used against confirm appropriate reduction. Nonlocking screws were placed within the 3 shaft screw holes. Final x-rays were obtained which demonstrated adequate reduction and positioning of hardware. The dorsal sunrise view was also obtained to ensure correct sizing of screws. The wound was then thoroughly irrigated. The pronator quadratus was reapproximated with a 0 Vicryl. The wound was thoroughly irrigated. The deep tissues were injected with 0.25% bupivacaine. The pronator quadratus was not repairable. Deep tissues were closed with 2-0 Vicryl. The skin was closed with a 4-0 nylon. The wound was dressed with Xeroform, 4 x 4's, Webril. She was then placed into a short arm splint. At the end the case all counts are correct. Patient was transferred back to the PACU in stable condition.
--- NOTE | 2024-04-22 16:50 | DI.RAD_ITS ---
Exam(s) XR WRIST LT LIMITED EXAM: XR WRIST LT LIMITED CLINICAL HISTORY: Fracture of both wrists. TECHNIQUE: 2D and realtime digital imaging was performed. COMPARISON: CR XR WRIST LT COMPLETE from 04/20/2024 FINDINGS: Hard copy images show placement of a fixation plate along the volar aspect of the distal radius. The alignment is anatomic. Please see procedure note for details. Fluoro time: 1 minute 47seconds RADIATION DOSE DELIVERED: [email or web address] Forbes=0.95 mGy
--- NOTE | 2024-04-22 17:16 | W.ANESPOSTOP ---
Postoperative Evaluation Date, Time and Location Date Performed: 04/22/24 Time Performed: 17:16 Patient Location: PACU Vital Signs Most Recent Imported Vital Signs: Most Recent Vital Signs Temp Pulse Resp BP Pulse Ox 37.1 C 63 13 148/63 H 93 04/22/24 17:05 04/22/24 17:06 04/22/24 17:10 04/22/24 17:06 04/22/24 17:10 Pain Score Most Recent Pain Score: Most Recent Pain Score Pain Level [Bilateral Wrist] 8 04/21/24 14:30 Pain Level [Left Eye/Orbital] 3 04/20/24 11:14 Pain Level 2 04/22/24 17:05 Assessment Mental Status: Arousable with meaningful communication Airway and Respiratory Function: Patent airway with normal (patient baseline) respiratory exam Cardiovascular Function: Hemodynamically Stable Hydration Status: Adequately Hydrated Nausea & Vomiting: No Nausea or Vomiting Pain: Pain is tolerable per patient Peripheral Nerve Block: Patient did not receive a nerve block
[2024-04-22] MEDS: ceFAZolin 1 GM/50 ML BAG IVPB (20:24)
[2024-04-23] VITALS (8 sets, daily range): BP systolic 124–146; BP diastolic 67–107; PULSE 57–72; RESP 12–16; TEMP 36.7–37.3; O2SAT 93–99
--- NOTE | 2024-04-23 | DI.RAD_ITS ---
Exam(s) XR TIB/FIB LT XR ANKLE LT 2V XR FOOT LT COMPLETE EXAM: XR TIB/FIB LT and XR ankle LT 2 V and XR foot LT complete CLINICAL HISTORY: left leg pain s/p fall. TECHNIQUE: 2D digital imaging was performed of the left foot, ankle, tibia and fibula. Seven images were obtained. AP, oblique and lateral views were obtained. COMPARISON: CR XR KNEE LT 3V AP,LAT,SAVANAH from 04/05/2020 FINDINGS: BONES: There is a nondisplaced fracture through the diaphysis of the proximal phalanx of the 5th toe. There does appear to be callus formation about the fracture suggesting a subacute fracture. On the lateral view of the ankle there is a lucency seen through the base of the 5th metatarsal. This may represent overlying shadow versus a nondisplaced fracture. No similar areas seen on the dedicated la teral view of the foot. No bony destructive lesion is seen. There is an enthesophyte at the posteri or calcaneus. There is a tiny plantar calcaneal spur. Visualized portion of knee and ankle joints a re unremarkable. There are mild degenerative changes seen at the tarsometatarsal joints. SOFT TISSUE: Soft tissue swelling adjacent to the 5th metatarsophalangeal joint. IMPRESSION: 1. Nondisplaced fracture involving the proximal phalanx of the 5th toe. There does appear to be some callus formation about the fracture suggesting a subacute fracture. Please correlate clinically. 2. Lucency seen through the base of the 5th metatarsal on the lateral view of the ankle. This may be artifactual due to overlying shadows versus a nondisplaced fracture. Please correlate with patient' s site of pain. A CT scan if necessary may be obtained. DATA REPOSITORY: RADIATION DOSE DELIVERED:
[2024-04-23] MEDS: ACETAMINOPHEN 1,000 MG/100 ML BAG 400 MG IVPB ×3 (04:07→19:48)
[2024-04-23] MEDS: ceFAZolin 1 GM/50 ML BAG IVPB ×2 (04:08→12:08)
[2024-04-23] MEDS: Lactated Ringers 1,000 ML 100 ML IV (04:25)
[2024-04-23] MEDS: HYDROmorphone 1 MG/ML SYR IVP ×6 (06:15→17:42)
[2024-04-23 07:00] LABS: HCT 24.6 % (36.0-46.0); HGB 8.1 g/dL (11.2-15.7); MCHC 32.9 % (32.0-36.0); MCV 82 fL (80-95); Platelet Count 254 10^3/uL (130-400); RDW-SD 50.8 fL; WBC 6.74 10^3/uL (4.4-10.8)
[2024-04-23] MEDS: oxyCODONE 10 MG TAB PO ×3 (07:20→16:05)
[2024-04-23] MEDS: Omeprazole 20 MG CAPCR 40 MG PO (07:21)
[2024-04-23 07:30] LABS: Anion Gap 6.2 mmol/L (3-11); BUN 19 mg/dL (7-18); CO2 28.8 mmol/L (21.0-32.0); Calcium 9.1 mg/dL (8.5-10.1); Chloride 110 mmol/L (98-107); Estimated GFR 58.75 (mL/min/1.73m2); Glucose 127 mg/dL (74-106); Potassium 4.2 mmol/L (3.5-5.1); Sodium 145 mmol/L (136-145)
--- NOTE | 2024-04-23 08:27 | CMPROGNOTE_ITS ---
Date of service: 04/23/24 Time of Service: 08:27 Care Management Progress Note Progress Note Text Progress Note Text: Tegan was awake and lying in bed when CM met with her. Tegan uses a walker for ambulation which adds to the complexity of her recovery post injury . Tegan is agreeable to PT's recommendation, and is agreeable to SNF for STR and adds emphasizes to it being short term! Referrals are being sent to [facility] at patients request. CM will continue to follow. Discharge Potential Discharge Needs: PCP F/U Appt (Marixa Kurtz) and Other (F/U Ortho) Anticipated Barriers to Discharge: Medical Status Patient/Family Education Needs: Review discharge instructions, discuss Ask Me Three Transportation: Other Plan: PT recommends SNF for STR, when medically ready for discharge. Tegan agrees with this plan and referrals are sent to [facility] at her request. Transportation will be dependent on her dispo and mobility at the time of discharge. SDOH(Care Management) Screening Will the Patient Participate in the Screening?: Unable to obtain
[2024-04-23] MEDS: Cholecalciferol (Vitamin D3) 1,000 UNIT TAB 2000 UNITS PO (09:06)
[2024-04-23] MEDS: Aspirin E.C. 81 MG TABEC PO (09:07)
[2024-04-23] MEDS: oxyCODONE-CR 20 MG TABCR PO ×2 (09:07→19:47)
[2024-04-23] MEDS: Senna TAB 1 TAB PO ×2 (09:07→19:48)
[2024-04-23] MEDS: amLODIPine 10 MG TAB PO (09:07)
[2024-04-23] MEDS: Sertraline 50 MG TAB 75 MG PO (09:07)
[2024-04-23] MEDS: Normal Saline Flush 10 ML SYR IVP ×5 (09:08→21:26)
[2024-04-23] MEDS: Topiramate 25 MG TAB PO (09:08)
--- NOTE | 2024-04-23 09:31 | PGE_ITS ---
Date of Service Date of service: 04/23/24 Time of Service: 16:30 Assessment and Plan Assessment and plan (1) Closed fracture of right distal radius: Status: Acute Qualifiers: Encounter type: initial encounter Fracture morphology: other intra- articular Qualified Code(s): S52.571A - Other intraarticular fracture of lower end of right radius, initial encounter for closed fracture (2) Closed fracture of left distal radius: Status: Acute Qualifiers: Encounter type: initial encounter Fracture morphology: other intra- articular Qualified Code(s): S52.572A - Other intraarticular fracture of lower end of left radius, initial encounter for closed fracture (3) Contusion of left leg: Status: Acute Assessment and plan: Tegan is a 73-year-old female who suffered a fall resulting in bilateral wrist fractures which are now status post open reduction and internal fixation. She seems to be doing well. She is moving her fingers fully. She seems to be moving much more than she was before surgery. She does complain of pain throughout but she is not yet back on her baseline of pain medications. Her pain seems to be appropriate of the hands and expect this will improve over the next few days. She should elevate when she is not using the hands. She is to work on finger range of motion and work with occupational therapy in order to assist with activities of daily living and develop a discharge plan. She did report some pain to the lateral left leg. X-rays of this does not show any concern for fracture although she has some ecchymosis about the left side of the knee. I would continue to mobilize as tolerated. I will see her back in 2 weeks for splint removal and wound check with transition to removable wrist braces at that time. Subjective Subjective Interval history since last seen: Tegan reports be doing better with her hands. She is complaining of more generalized pain. She been on use her hands more fully with the new braces and after surgery. She has been able to move her fingers much better today than yesterday. She denies numbness or tingling of the fingers. She does report some pain about the lateral side of the left knee and the left leg. She did work with physical therapy earlier today. Exam Narrative Exam Narrative: Sitting up in the bed. No acute distress. Alert and orient x 3. Resolving ecchymosis around the left eye and throughout the face. Evaluation of bilateral upper extremity shows intact splints. She is able demonstrate active thumb extension and thumb flexion of both hands as well as active finger extension and finger flexion of both hands. She endorses full sensation over the median, radial, ulnar nerves. No significant pain with active range of motion of the fingers except at the ends of motion. Objective Last Vital Signs Temp 37.0 C 04/23/24 07:44 Pulse 63 04/23/24 07:44 Resp 12 04/23/24 07:44 BP 134/73 04/23/24 07:44 Pulse Ox 99 04/23/24 07:56 Laboratory Results - last 24 hr 04/23/24 06:10 WBC 6.74 RBC 3.00 L Hgb 8.1 L Hct 24.6 L MCV 82 MCH 27.0 MCHC 32.9 RDW 17.0 H Plt Count 254 MPV 10.0 Sodium 145 Potassium 4.2 Chloride 110 H Carbon Dioxide 28.8 Anion Gap 6.2 BUN 19 H Creatinine 1.0 Est GFR (CKD-EPI 2020) 58.75 Glucose 127 H Calcium 9.1 Objective Narrative Objective Narrative: X-ray of the left tib-fib, left ankle, and left foot reviewed. This shows some arthritic change of the proximal tib-fib joint. No sign of fracture about the proximal tibia or knee. There is no sign of fracture distally about the left tib-fib. There does appear to be a healing fracture of the proximal phalanx of the left fifth toe. Time Spent with Patient Time Spent with Patient: 25-34 minutes Time was spent: preparing to see the patient(eg.review tests), obtaining and/or reviewing separately otained hiistory, indepentently interpreting results and counseling the patient
--- NOTE | 2024-04-23 10:15 | IN_ITS ---
PT Notes Visit Reasons: Fall at home b/1 wrist fractures Physical Therapy Inpatient Initial Evaluation Date: 04/23/2024 Referring Doctor: Barby Middleton MD on 04/20/2024 and Jonathan Paulino MD on 04/22/2024 PT Orders: PT CONSULT: S/P Bilateral wrist ORIF. WBAT in splints Precautions: Fall. Standard. WBAT through B UE with short arm splints to B UE. Patient Profile/Admitting Diagnosis: Tegan is a 73-year-old female with past medical history significant for CVA in February 2023, s/p cervical fusion as well as movement disorder who fell on 04/19/2024 resulting to comminuted intra articular fracture of the distal radius on the right at the left as well as fracture left side s/p ORIF on postoperative day 1. PMHX: All Active Problems (Updated 04/20/24 @ 19:59 by Barby Middleton DO) Heart murmur (Acute) Depression (Chronic) At high risk for skin breakdown (Acute) Periorbital edema (Acute) Hiatal hernia (Chronic) moderate Coronary artery calcification seen on CAT scan (Acute) Diverticula of colon (Acute) DJD (degenerative joint disease), lumbar (Acute) History of CVA (cerebrovascular accident) (Acute) remote Fracture of both wrists (Acute) Goiter (Acute) Fibromyalgia (Chronic) KWAME (obstructive sleep apnea) (Chronic) Chronic pain (Chronic) Movement disorder (Acute) Chronic renal insufficiency, stage III (moderate) (Acute) Anemia (Chronic) Hypertension (Chronic) Medical History (Updated 04/20/24 @ 19:59 by Barby Middleton DO) Primary osteoarthritis of left knee We will see the patient back in 4-1/2 months for possible repeat Synvisc 1 in her left knee would consider x-ray in her right knee if she is still significantly symptomatic Osteoarthritis of right knee Steroid injection: 04/05/2020 Has had previous viscosupplementation injections. 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) As treatment for a femoral neck fracture (DOI: 09/16/2020)History of back surgery Hx of cholecystectomy Social History/Home Situation: Lives alone in a private home. Son lives close by and takes care of grocery shopping. Patient has caregivers for about 2 hours each day for meals, laundry and houework. is modified independent with use of 4[employer] indoors. Does not drive. Equipment Owned/DME: [employer] Subjective: Very anxious and fearful of getting out of bed. My arms hurt like holy hl! Do not come close to me, Do not touch my arms. My face hurts. Patient was however agreeable to testing both lower extremities. Patient refused to get out of bed due to generalized pain. Complained about pain in the L toes, the L jimenes, and the L knee with movement. Very upset about the patient in the next room who kept on shouting looking for his Florecita throughout our session. Objective: General Observation: Highly anxious. Does not want to do anything for this morning due to pain and fear of falling. Contusion noted on lateral knee area overlying the L fibular head. Soft bootie on L. Mental Status: Alert and oriented as to person, place and purpose. Able to pay attention and focus but some responses are delayed. Pain: 8-9/10 in B forearms and hands. Also reports pain in the R great toe, L jimenes, and L knee. Vital Signs: Closley monitored by nursing staff ROM: Right Upper Extremity: Did not want the R upper extremity moved due to pain. Left Upper Extremity: Shoulder Flexion WFL. Shoulder abduction WFL. Elbow flexion NT. Wrist flexion NT. Functional opening and closing of hand NT Right Lower Extremity: Hip flexion allows up to 90 degrees. Hip abduction WFL. Knee flexion 10 degrees to 40 degrees. Knee extension -10 degrees. Ankle dorsiflexion to neutral only. Ankle plantarflexion WFL. Left Lower Extremity: Hip flexion allows up to 90 degrees. Hip abduction WFL. Knee flexion 30 to 60 degrees. nee extension -30 degrees. Ankle dorsiflexion to neutral only. Ankle plantarflexion WFL. Strength: Right Upper Extremity: Unable to test at this time as patient did not want to move her R upper extremity. Left Upper Extremity: Shoulder flexors 4-/5. Shoulder abductors 4-/5. Elbow flexors NT. Elbow extensors NT. Patient Relations Representative strong. Right Lower Extremity: Hip flexors 3-/5. Hip abductors 3-/5. Knee flexors 3-/5. Knee extensors 3-/5. Ankle dorsiflexors 3-/5. Ankle plantarflexors 4-/5. Left Lower Extremity: Hip flexors 3-/5. Hip abductors 3-/5. Knee flexors 3-/5. Knee extensors 3-/5. Ankle dorsiflexors 3-/5. Ankle plantarflexors 4-/5. Bed Mobility/Transfers: Unable to test at time of initial visit. Arrangement was made with Nurse Xavier about coordinating getting out of bed with pain medication intake today. Gait: Unable to test at time of initial visit. Arrangement was made with Nurse Xavier about coordinating getting out of bed with pain medication intake today. Balance: Unable to test at time of initial visit. Arrangement was made with Nurse Xavier about coordinating getting out of bed with pain medication intake today. Special Tests: Mobility Limitations Standardized Measure [facility]-P[facility] 6 clicks Basic Mobility Inpatient Short Form: Raw Score: 24 CMS Score: 100% deficit Informed Consent/Education: Patient was instructed in purpose of PT consult and plan of care. Agreeable to proceed with established PT POC to achieve personal goals but is anxious to move out of bed this early on in the post op cycle despite education on ill effects of prolonged bed rest to healing and to infection as well pressure prevention. ASSESSMENT: Unable to complete mobility assessment at this time due to patient's firm declination. Highly anxious. Fearful of falling. Does not want to move this early but understanding that she may take slowly to heal, is agreeable with going to a SNF. Due to hig apprehension, patient will require extensive encouragement to gradually increase ability to move out of bed. Level of anxiety increased with level of noise in the room next to hers. Will coordinate with nurse for pre-medication to increase chances of sitting up and transfer to chair in the day or so. Patient presents with clinical signs and symptoms consistent with current/admitting diagnoses that have resulted to mobility limitations, gait instability, generalized weakness, and overall ADL decline as demonstrated by the following impairment level findings: 1. Decreased strength to B UE/LE major muscle groups 2. Impaired sitting/standing balance 3. Impaired activity tolerance 4. Limitation of joint range of motion in B UE and B LE 5. High pain level 6. High anxiety level/fearful of falling Impairments are contributing to the following functional limitations: 1. Decline in bed mobility skills 2. Decline in transfer skills 3. Inability to ambulate without assistive device and physical assistance 4. Increased risk for skin breakdown 5. Increased risk for falls Patient is assessed as a [] complexity based on the following: History: []-year-old [] with past medical history as indicated above Examination: Demonstrable impairment in strength, balance, and mobility level with underlying impairments and functional limitations as exhibited above as well as deficit score of []% utilizing the [facility] Mobility Inpatient Short Form Presentation: [] Decision Making: [] complexity Goals: Goals X1 week 1. Supine-Sit minimal assist 2. Sit-Supine minimal assist 3. Sit-Stand minimal assist with platform walker 4. Stand-Sit minimal assist with platform walker 5. Bed-Chair minimal assist of 2 with platform walker 6. Chair-Bed minimal assist of 2 with platform walker 7. Independent gait on level surface with use of platform walker for at least 15 feet without report of pain nor dyspnea 8. Fair static and dynamic standing balance/tolerance Plan of Care/Treatment Plan: 1-2x/day, 7 days/week x 1 week. Initiate Physical Therapy intervention for pain management as needed, strengthening, bed mobility, transfers, gait, stairs, balance training, and use of assistive device. DISCHARGE RECOMMENDATIONS: [] Home with no services [] [] Home with services [specify] [] Home with outpatient PT [] [X] SNF for continued rehabilitation. Patient will benefit from [facility] facility placement for continued skilled physical therapy services in order to progress mobility level, strength, and balance in preparation for a safe discharge to home. [] Alf Care [] [] SNF versus LTC based on ability to participate and progress [] TREATMENT CODE/TIME: 13585 x 30 minutes for 1 unit ( (10:15-10:45). Thank you for the opportunity to participate in the care of this patient. Mikayla Jacobson PT, DPT, CLT [facility], [place]
--- NOTE | 2024-04-23 13:05 | PHA.REVIEW2 ---
Pharmacy Admission Review Admission Clinical Review Admission Pharmacy Review: Closed fracture of distal end of radius (Acute) Palliative care patient (Acute) ACP (advance care planning) (Acute) Closed fracture of left distal radius (Acute) Closed fracture of right distal radius (Acute) Heart murmur (Acute) At high risk for skin breakdown (Acute) Periorbital edema (Acute) Coronary artery calcification seen on CAT scan (Acute) Diverticula of colon (Acute) DJD (degenerative joint disease), lumbar (Acute) History of CVA (cerebrovascular accident) (Acute) Fracture of both wrists (Acute) Goiter (Acute) Movement disorder (Acute) Chronic renal insufficiency, stage III (moderate) (Acute) sulfamethoxazole (From Bactrim) Allergy (Verified 02/29/24 00:29) Diarrhea trimethoprim (From Bactrim) Allergy (Verified 02/29/24 00:29) Diarrhea morphine Adverse Reaction (Intermediate, Unverified 02/29/24 00:29) Psychosis baclofen Adverse Reaction (Unknown, Unverified 02/29/24 00:29) Unknown chlorthalidone Adverse Reaction (Unknown, Unverified 02/29/24 00:29) Unknown codeine Adverse Reaction (Unknown, Unverified 02/29/24 00:29) Unknown dextromethorphan Adverse Reaction (Unknown, Unverified 02/29/24 00:29) Unknown gabapentin (From Neurontin) Adverse Reaction (Unknown, Unverified 02/29/24 00:29) Unknown hydrochlorothiazide Adverse Reaction (Unknown, Unverified 02/29/24 00:29) Unknown pregabalin Adverse Reaction (Unknown, Unverified 02/29/24 00:29) Dopey Resuscitation Status DNR/DNI Height 5 ft 5 in Weight 62.2 kg Comments Comments/Follow Ups: POD#1 Pharmacy Admission Review Renal Dosing Renal Dosing: BUN 19 mg/dL (7-18) H 04/23/24 06:10 Creatinine 1.0 mg/dL (0.55-1.02) 04/23/24 06:10 Medications needing adjustments: Reviewed (CrCl 47.6 mL/min, BUN decreased from 20 and SCr decreased from 1.1) List of meds needing interventions: Current medications are okay Anticoagulation Anticoagulation: Hgb 8.1 g/dL (11.2-15.7) L 04/23/24 06:10 Hct 24.6 % (36.0-46.0) L 04/23/24 06:10 Plt Count 254 10^3/uL (130-400) 04/23/24 06:10 INR 1.1 (0.9-1.1) 04/21/24 05:50 Creatinine 1.0 mg/dL (0.55-1.02) 04/23/24 06:10 DVT Prophylaxis: Reviewed (SCDs) Opiate Usage Evaluate Pain Scale/Pains Meds: Reviewed (IVP hydromorphone PRN - 6mg/24hrs, oxycodone CR 20mg BID and oxycodone 10mg PO PRN - 20mg/24hr) Scheduled Bowel Reg ordered if on Opiates?: Yes (Senna BID) Relevant Labs Relevant Labs: Sodium 145 mmol/L (136-145) 04/23/24 06:10 Potassium 4.2 mmol/L (3.5-5.1) 04/23/24 06:10 Chloride 110 mmol/L (98-107) H 04/23/24 06:10 Magnesium 2.2 mg/dL (1.8-2.4) 04/21/24 05:50 Electrolytes, C-Reactive P, ESR: Reviewed Cardiac Review Cardiac Review: Troponin I 16 ng/L (<or=51) 04/21/24 05:50 BP, HR, EF%: Reviewed (BP and HR WNL) List meds needing interventions: Has order for amlodipine 10mg daily QTc Review QTc: Reviewed (407 from 04/20/24) IV to PO Switch IV Medications: Reviewed (APAP, hydromorphone and lorazepam) Home Meds Home Med List reviewed: Reviewed Relevent Home Meds Not ordered & why?: magnesium, meloxicam, Narcan (PRN), Macrobid and prochlorperazine (PRN) Current Meds Current Medication Order Review: Reviewed Comments Comments/Follow Ups: POD#1
--- NOTE | 2024-04-23 15:35 | NUR.NOTE ---
Nursing Note: Patients daughter is requesting that either her or her brother be contacted before patient is transferred to another facility. Renetta Corrigan [phone] (works shift production supervisor), Amor Corrigan [phone]. Patient has caregivers 3hrs a day 7 days a week.
[2024-04-23] MEDS: Ondansetron 4 MG/2 ML VIAL IVP (16:13)
--- NOTE | 2024-04-23 16:41 | SP_ITS ---
Date of service: 04/23/24 Time of Service: 12:00 Subjective Clinical (Bedside) Swallow Evaluation - Inpatient Speech Language Pathology Referred by: Alverto Fuller MD Hospitalist service Start time: 1200 End time: 1230 Total patient contact: 30min Referral Type: Routine Swallow Consult Precautions: Standard, Fall, DNR/DNI Reason for Referral/HPI: Patient is a 73 y/o F with a prior history of CVA, fibromyalgia with opioids taken for chronic pain, KWAME, HTN, CKD, who was found by a caregiver after falling at home, and admitted with bilateral wrist fra ctures for which she underwent surgery yesterday. Swallow Evaluation requested due to nursing noting coughing with thin liquids intake. PRODUCT ADVISOR IMPRESSIONS & RECOMMENDATIONS: Patient appears with intermittent variable delays in swallow initiation, but on the whole with safe swallow function if precautions are taken. She does demonstrate 1x immediate cough with thin liquids (pt endorses this is a longstanding baseline issue) when self-selecting from a straw, but this is eliminated when PRODUCT ADVISOR providing small sips sizes from cup edge. Although this was not noted on exam, caregiver also notes at baseline patient will sometimes pocket or hold solid foods for quite some time before swallowing, and will require cues to initiate swallow. While CVA history and age may explain some of current aspiration risk, use of pain meds may also be a complicating factor both chronically and at this time. Cranial nerve exam is significant primarily for some lingual weakness and slow/discoordinated non-speech AMR's, however, she does also have significant facial bruising and it is possible that pain is a factor in limiting some of these movements (pt complains of pain throughout session, including chin and eye pain where she has significant bruising. Patient had 1 hospitalization for JAZMYN pna about 1 year ago but otherwise without any significant history of recurrent pneumonia. FURTHER INPATIENT PRODUCT ADVISOR SERVICES: Patient to be followed while on unit to ensure diet tolerance/consideration of upgrades when ready. DISCHARGE RECOMMENDATIONS: Consider MBSS as outpatient if concerns remain for safe swallow function. Diet modification is indicated as follows for the purpose of reduced risk of choking, energy conservation, pain reduction. Diet Recommendations: ? SOLIDS: 6-Soft & Bite-Sized Solids LIQUIDS: 0-Thin Liquids MEDICATIONS: Whole With 4-Purees RISK MANAGEMENT: Level of Assistance/Supervision: 1:1Assistive feeding only by trained staff/family Positioning and environment: PO intake only when awake/alert? Reduce auditory and/or visual distractions when eating As upright as tolerated, use HOB controls/bed tilt to achieve upright positioning Oral hygiene Before/after PO intake Using friction with toothbrush on all oral structures as tolerated Strategies/Adaptations/Assistive Equipment: Small sips Small bites Avoid straws Ensure mouth is clear before proceeding Education Provided to: Nursing Patient Caregiver Topics Addressed: anatomy/physiology of swallowing mechanism definition and impacts of aspiration impact of current diagnoses on swallow function role of PRODUCT ADVISOR in management of swallow disorders overt s/sx to monitor for re: potential aspiration of food / liquids relationship between respiratory function and deglutition rationale and instruction for additional risk management strategies as above SUBJECTIVE: Patient received: alert/awake, mildly lethargic, but making jokes. Agreeable to evaluation. Pain Reported Y - nursing aware and addressing with medication Baseline Swallow Function: Patient reports coughing with liquids chronically at baseline. She is unsure if this is related to prior CVA. Her caregiver, Areli also endorses this as well as sometimes long oral holds vs pocketing with solid foods, requiring cues to initiate swallow. This is only occasional (not every day). 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 Follows instructions without need for clarification. Speech: WFL, somewhat monotone. Oral Mechanism Examination: Dentition: Natural dentition with some missing molars. Oral mucosa: WFL, good oral care. ? Cranial Nerve Assessment: CN V ? Trigeminal Facial Sensation WNL Jaw Strength/ROM WNL ?WNL CN VII- Facial Mild reduced coordination of non-speech AMR's, otherwise WFL WNL CN IX ? Glossopharyngeal WNL palatal elevation with phonation. No evidence of nasal emissions WNL CN X ? Vagus WNL Vocal quality and volume. Strong/sharp volitional cough WNL CX XII ? Hypoglossal Mild reduced ROM (lateral) which improves with cueing, and reduced strength to resistance, possibly in setting of pain (facial bruising). WNL PO Intake: Trials Assessed: IDDSI 0 Thin Liquids IDDSI 4 Puree Solid IDDSI 6 Soft & Bite Size Solid Oral Phase Findings: WFL Pharyngeal Phase Findings: Intermittently delayed swallow initiation Cough after swallow for large straw sips, self selected Esophageal Phase Findings: ? No observed or reported symptoms at bedside PLAN: Frequency: 1-2x/week for 1-2 weeks to ensure safest/least restrictive diet tolerance. Goals: Detention Goals: Patient will remain free from aspiration-related illness, malnutrition, and dehydration. Short Term Goals: Patient will tolerate Soft/Bite Size Diet and Thin liquids without overt s/s aspiration across 1-2 visits. Patient will tolerate PO trials for consideration of diet upgrade without overt s/s aspiration across 1-2 visits.
[2024-04-24] MEDS: HYDROmorphone 1 MG/ML SYR IVP ×4 (02:40→17:28)
[2024-04-24 03:05] VITALS: BP 136/71; PULSE 66; RESP 16; TEMP 37.4; O2SAT 95
[2024-04-24] MEDS: ACETAMINOPHEN 1,000 MG/100 ML BAG 400 MG IVPB ×3 (04:10→20:42)
[2024-04-24 07:49] VITALS: BP 185/85; PULSE 66; RESP 16; TEMP 36.4
[2024-04-24] MEDS: Sertraline 50 MG TAB 75 MG PO (07:59)
[2024-04-24] MEDS: Cholecalciferol (Vitamin D3) 1,000 UNIT TAB 2000 UNITS PO (08:02)
[2024-04-24] MEDS: amLODIPine 10 MG TAB PO (08:02)
[2024-04-24] MEDS: Topiramate 25 MG TAB PO (08:03)
[2024-04-24] MEDS: Aspirin E.C. 81 MG TABEC PO (08:03)
[2024-04-24] MEDS: oxyCODONE-CR 20 MG TABCR PO ×2 (08:04→20:47)
[2024-04-24] MEDS: Omeprazole 20 MG CAPCR 40 MG PO (08:04)
[2024-04-24] MEDS: Senna TAB 1 TAB PO ×2 (08:05→20:47)
[2024-04-24] MEDS: Normal Saline Flush 10 ML SYR IVP ×2 (08:07→20:48)
[2024-04-24] MEDS: oxyCODONE 10 MG TAB PO ×3 (09:21→18:43)
[2024-04-24] MEDS: LORazepam 2 MG/ML VIAL 1 MG IVP ×2 (09:22→14:55)
--- NOTE | 2024-04-24 09:42 | PTTR_ITS ---
PT Notes Visit Reasons: Fall at home b/1 wrist fractures Physical Therapy Inpatient Treatment Note Date: 04/24/2024 Precautions: Fall. Standard. WBAT through B UE with short arm splints to B UE. Post-op shoe to L when OOB. Subjective: Very scared about getting out of bed but with extensive encouragement patient was agreeable to sitting up and standing up with assistance of PT and RICA Ross. Verbalized Scared, scared several times throughout the walk from bedside to the bathroom as she needed to have a bowel movement. Objective: General Observation: Continues to be highly anxious. Mental Status: Alert and oriented as to person and purpose. Able to pay attention and focus but some responses are delayed. Short-term memory impaired. Pain: 6-12/25 on B wrists Vital Signs: Closeley monitored by nursing staff Bed Mobility/Transfers: Moderate cueing provided for use of B hands as needed for support, movement sequence, AD management, and posture to reduce fall risk and minimize pain report Supine to sit moderate assist of 2 with HOB at 30 degrees Sit to stand moderate assist of 2 with use of platform walker Stand to sit moderate assist of 2 with use of platform walker Bed to toilet seat moderate assist of 2 with use of platform walker Toilet seat to bedside recliner moderate assist of 2 with use of platform walker Gait: With maximal verbal, tactile, and visual cueing and with moderate assistance of PT and RICA Ross, patient was able to cover about 15 feet to the bathroom and then back for another 15 feet to sit onto bedside recliner using platform walker. Patient was very much fearful of falling, needed redirection and encouragement to continue. Steps discontinuous with decreased ability to extend trunk erect. No pain increase with weight bearing on platforms. Balance: Static sitting: Fair Dynamic sitting: Poor Static standing: Poor Dynamic standing: Unable Special Tests: Mobility Limitations Standardized Measure [facility] AM-PAC 6 clicks Basic Mobility Inpatient Short Form: Raw Score: 24 CMS Score: 100% deficit ASSESSMENT: Remains highly anxious and fearful of falling but with pre-medication and extensive encouragement, patient tolerated short-distance in-room ambulation this morning for the first time needing assistance of 2 people as of this morning to ensure safety. Will continue to coordinate with nurse for pre-me dication to progress mobility level. Pain is better controlled compared to yesterday which enabled better mobility performance. Will plan on removing platforms off walker tomorrow morning to gradually train for weight-bearing as tolerated through B UE per orthopod recommendations. Ability to execute instructions continues to be delayed. Goals: Goals X1 week 1. Supine-Sit minimal assist 2. Sit-Supine minimal assist 3. Sit-Stand minimal assist with platform walker 4. Stand-Sit minimal assist with platform walker 5. Bed-Chair minimal assist with platform walker 6. Chair-Bed minimal assist with platform walker 7. Independent gait on level surface with use of platform walker for at least 15 feet without report of pain nor dyspnea 8. Fair static and dynamic standing balance/tolerance Plan of Care/Treatment Plan: 1-2x/day, 7 days/week x 1 week. Continue Physical Therapy intervention for pain management as needed, strengthening, bed mobility, transfers, gait, stairs, balance training, and use of assistive device. DISCHARGE RECOMMENDATIONS: [] Home with no services [] [] Home with services [specify] [] Home with outpatient PT [] [X] SNF for continued rehabilitation. Patient will benefit from senior living facility placement for continued skilled physical therapy services in order to progress mobility level, strength, and balance in preparation for a safe discharge to home. [] Correction Care [] [] SNF versus LTC based on ability to participate and progress [] TREATMENT CODE/TIME: 92005 x 57 minutes for 4 units (08:04-09:16 and 9:42-10:27).
--- NOTE | 2024-04-24 09:58 | CMPROGNOTE_ITS ---
Date of service: 04/24/24 Time of Service: 09:58 Care Management Progress Note Progress Note Text Progress Note Text: Tegan was sitting in a recliner when CM met with her. She is s/p bilateral wrist repair and requires pain management and PT. Tegan is medically ready for discharge per provider and is agreeable to discharge to [facility] today, therefor CM started working on coordination to next level of care for this afternoon to allow time for a voiding trial as recommended by pt Primary RN. CM spoke with RN/PT who each expressed concerns with readiness for discharge and pts ability to safely transport via wheel chair van given the fact that she did not meet medical necessity for EMS transportation. It was then identified that additional PT services were needed in order to step down to the next level of care. Tegan's discharge to [facility] is being placed on hold per provider; per PTs recommendation. CM notified Aggie from [facility], transportation that was coordinated with [facility] w/[facility] van was cancelled and CM left a message for Renetta letting her know of the discharge delay. CM is hopeful that patient will still have a bed offer at [facility] when her goals are met and a safe transition can be better facilitated. Additionally, transportation will be dependent on patients mobility at the time of discharge. Tegan is occasionally anxious, so it may be worth while to explore the possibility of transporting to [facility] via private vehicle with one of her adult children. CM will continue to support discharge planning considerations. Discharge Potential Discharge Needs: PT Evaluation and PCP F/U Appt Anticipated Barriers to Discharge: Medical Status Patient/Family Education Needs: Review discharge instructions, discuss Ask Me Three Transportation: Other (Dependent on mobility at time of discharge. ) Plan: S/P bilateral wrist fracture repair on 04/22/24. PT recommends SNF for STR. Admitted for PT and pain management. Tegan agrees with this plan and referrals are sent to [facility] and [facility] at her request. Patient accepted a bed offer at [facility]. Transportation will be dependent on her dispo and mobility at the time of discharge. Pts daughter Renetta is also on bord with discharge to [facility], and would like to be looped in on the discharge details. SDOH(Care Management) Screening Will the Patient Participate in the Screening?: Unable to obtain
[2024-04-24 11:14] VITALS: BP 162/91; PULSE 69; RESP 14; TEMP 37
--- NOTE | 2024-04-24 12:14 | DSE_ITS ---
Date of service: 04/24/24 Time of Service: 12:14 DS: Diagnosis Discharge Diagnosis (1) Closed fracture of right distal radius: Status: Acute (2) Closed fracture of left distal radius: Status: Acute (3) Contusion of left leg: Status: Acute Discharge Plan Disposition Patient Disposition: Residential Facility(SNF) Condition: Good Discharge Details Reason For Visit: Fall at home b/1 wrist fractures Admit Date/Time: 04/20/24 17:23 Admit Provider: Barby Middleton Attending Provider: Barby Middleton Primary Care Provider: Marixa Kurtz [facility] Course Hospital Course: Patient presented to the emergency room after experiencing mechanical fall from standing that resulted bilateral wrist fractures. She was admitted to the medicine service, and did have surgical intervention on her fractures on 04/22/2024 and did not have any postop complications. Patient worked with physical therapy and was determined that she would benefit from subacute rehab. Ultimately given the patient's fractures were repaired, was determined the patient was stable for discharge to [facility] and rehab for subacute rehab. Home Meds and New Rx's Prescriptions: New oxycodone [OxyContin] 20 mg Tablet,Oral Only,Ext.Rel.12 Hr 20 mg PO BID Qty: 10 0RF oxycodone 10 mg Tablet 10 mg PO Q4H PRN PRNQty: 10 0RF Continued sertraline 50 mg tablet 75 mg PO DAILY trazodone 100 mg tablet 200 mg PO HS PRN PRN meloxicam 15 mg tablet 15 mg PO DAILY aspirin 81 mg tablet,delayed release (DR/EC) 81 mg PO DAILY topiramate [Topamax] 25 mg tablet 25 mg PO DAILY omeprazole 40 MG capsule,delayed release(DR/EC) 40 mg PO DAILY polyethylene glycol 3350 [Miralax] 119 GM powder 17 g PO DAILY PRN PRN Patient Comments: Not on pt's updated med list ML 03/13/23 vitamin B complex Tablet 1 tab PO DAILY cholecalciferol (vitamin D3) [Vitamin D3] 25 mcg (1,000 unit) Tablet 50 mcg PO DAILY Patient Comments: Not on pt's updated med list ML 03/13/23 sertraline 25 mg tablet 25 mg PO DAILY lorazepam [Ativan] 1 mg tablet 1 mg PO DAILY PRNQty: 10 0RF sennosides [senna] 8.6 mg tablet 8.6 mg PO QPM amlodipine 10 mg tablet 10 mg PO DAILY naloxone 4 mg/actuation spray,non-aerosol 4 mg INTRANASAL ONCE PRN Patient Comments: ADMINISTER 1 SPRAY INTO ONE NOSTRIL A SINGLE DOSE NEEDED FOR EXCESSIVE SEDATION Magnesium (oxide/AA chelate) 300 mg capsule 1 cap PO BID Discontinued oxycodone [OxyContin] 40 mg tablet,oral only,ext.rel.12 hr 40 tab PO BID Patient Comments: TAKE ONE TABLET BY MOUTH TWICE A DAY prochlorperazine maleate 5 mg tablet 5 mg PO BID PRN PRN Patient Comments: TAKE 1 TABLET BY MOUTH 2 TIMES DAILY NEEDED nitrofurantoin monohyd/m-cryst 100 mg capsule 100 mg PO BID Discharge Instructions Activity:: Activity as Tolerated Equipment/Supplies:: No Equipment Needed Diet:: As Tolerated Discharge Orders Discharge Orders: Discharge Order (Routine); Ordered 04/24/24 Ordered By: Alverto Fuller DS: Summary Time Spent with Patient providing and/or coordinating discharge services: Greater than 30 minutes Status at Discharge Functional status at discharge: independent ambulation Overall status at discharge: patient is back to baseline Mental Status: mental status grossly normal Speech and Movement: speech and movement normal Mood: congruent mood Affect: normal affect Quality:SDOH Health Related Social Needs: No Data to Display Exam Narrative Exam Narrative: Well-appearing older female laying in bed in no acute distress, ANO x 4, no significant ecchymosis over right orbital without significant swelling, heart regular rate rhythm, lungs clear to auscultation bilaterally, abdomen soft, no ntender, nondistended, bilateral wrists wrapped in Eyad bandages and immobilized Psych Mental Status: mental status grossly normal Speech and Movement: speech and movement normal Mood: congruent mood Affect: normal affect DS: Data Vitals/I&O Vitals and I&O: Vital Signs Temperature 98.6 F 04/24/24 11:14 Temperature Source Temporal Artery Scan 04/24/24 11:14 Pulse 69 04/24/24 11:14 Pulse 63 04/22/24 17:10 Respiratory Rate 14 04/24/24 11:14 Respiratory Effort Normal, Non-Labored 04/20/24 19:05 Respiratory Depth Normal 04/20/24 19:05 Respiratory Pattern Normal 04/20/24 19:05 Blood Pressure 162/91 H 04/24/24 11:14 Blood Pressure Mean 94 04/22/24 17:06 Blood Pressure Position Supine 04/20/24 19:05 Pulse Oximetry 95 04/24/24 03:05 Respiratory End-tidal CO2 35 04/22/24 17:06 Oxygen Delivery Method Room Air 04/24/24 11:14 Oxygen Flow Rate 0 04/24/24 11:14 Pain Level 9 04/24/24 11:22 Comment BP done on right lower leg. 04/24/24 11:14 Intake & Output 04/23/24 04/24/24 04/24/24 17:59 05:59 17:59 Intake Total 593.333 / 593.333 520 / 1113.333 480 / 480 Output Total 700 / 700 2125 / 2825 1025 / 1025 Balance -106.667 / -106.667 -1605 / -1711.667 -545 / -545 Weight 141 lb 15.643 oz Intake: IV 353.333 / 353.333 280 / 633.333 Oral 240 / 240 240 / 480 480 / 480 Output: Urine 700 / 700 2125 / 2825 1025 / 1025 Other: Urine Color Yellow Pale Pale Urine Appearance Clear Clear Clear Urine Odor None Comment some leakage around catheter Stool Size Large Stool Characteristics Formed Data Completed and Pending Labs on day of discharge: Preliminary micro results at discharge 04/21/24 06:20 Blood Culture - Preliminary Blood NO GROWTH 72 HOURS 04/21/24 06:20 Blood Culture - Preliminary Blood NO GROWTH 72 HOURS 04/20/24 11:23 Blood Culture - Preliminary Blood Staphylococcus Warneri Staph hominis ssp hominis 04/20/24 12:25 Blood Culture - Preliminary Blood NO GROWTH 72 HOURS PFSH All Active Problems (Updated 04/24/24 @ 07:57 by Jonathan Paulino MD) Contusion of left leg (Acute) Closed fracture of distal end of radius (Acute) Palliative care patient (Acute) ACP (advance care planning) (Acute) Closed fracture of left distal radius (Acute) Closed fracture of right distal radius (Acute) Heart murmur (Acute) Depression (Chronic) At high risk for skin breakdown (Acute) Periorbital edema (Acute) Hiatal hernia (Chronic) moderate Coronary artery calcification seen on CAT scan (Acute) Diverticula of colon (Acute) DJD (degenerative joint disease), lumbar (Acute) History of CVA (cerebrovascular accident) (Acute) remote Fracture of both wrists (Acute) Goiter (Acute) Fibromyalgia (Chronic) KWAME (obstructive sleep apnea) (Chronic) Chronic pain (Chronic) Movement disorder (Acute) Chronic renal insufficiency, stage III (moderate) (Acute) Anemia (Chronic) Hypertension (Chronic) Medical History Primary osteoarthritis of left knee We will see the patient back in 4-1/2 months for possible repeat Synvisc 1 in her left knee would consider x-ray in her right knee if she is still significantly symptomatic Osteoarthritis of right knee Steroid injection: 04/05/2020 Has had previous viscosupplementation injections. 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) As treatment for a femoral neck fracture (DOI: 09/16/2020) History of back surgery Hx of cholecystectomy Social History Smoking/Tobacco Use Status: Never Smoking risk assessment performed?: Yes Alcohol Intake: never Drug use: Never Substance use type: does not use Housing: house Do you feel safe at home: Yes Do you feel safe in your relationship?: Yes Additional Social history: lives alone, has caregiver that come 7 days a week, do all the meds Time Spent with Patient Time Spent with Patient: <45 minutes Time was spent: preparing to see the patient(eg.review tests), obtaining and/or reviewing separately otained hiistory, ordering medications,tests, procedures, referring, communicating with other health healthcare administration intern, indepentently interpreting results, counseling the patient and care coordination
--- NOTE | 2024-04-24 12:43 | PDOC.CMDIS ---
Date of service: 04/24/24 Time of Service: 12:43 LACE Index Scoring Tool Questions: Length of Stay (in days): 4 - 6 Was the patient admitted via the E.D.?: Yes Comorbidities: Cerebrovascular Disease E.D. Visits: 3 Answers: Total Score: 11 Risk of Readmission: High Risk Care Management Discharge Plan Reason for Hospitalization: Fall at home, bilateral wrist fractures Discharge Plan: Discharge to . [facility] for STR. Follow up with Ortho and community providers. Will require EMS for transportation. Patient/Family Education Needs: Review discharge instructions, limitations, medications and plan to follow up with Ortho and other community providers. Discuss ask me three. Services Needed at Discharge: [facility] ([facility] and Transportation (EMS) SDOH Health Related Social Needs: No Data to Display
--- NOTE | 2024-04-24 13:25 | SPP_ITS ---
Date of service: 04/24/24 Time of Service: 12:10 Subjective Subjective: Patient received alert/awake, conversant, with noon meal tray Objective: Patient Positioning: upright in a chair Oxygen Tolerance: tolerating room air Oral Hygiene: completed before PO trials PO Trials Assessed: IDDSI 0 Thin Liquids (water via rim of cup) IDDSI 4 Puree Solid (Jello, mashed potatoes) IDDSI 5 Minced & Moist (Cottage cheese) IDDSI 6 Soft & Bite Size Solid (Carrots) Oral Phase Findings: Prolonged/munching chew pattern No pocketing WFL Pharyngeal Phase Findings: Delayed swallow initiation No coughing, throat clearing, change in vocal quality Assessment/Impression: Tegan was seen today for speech therapy/dysphagia follow-up with noon meal. She remains 1:1 feed assist due to bilateral wrist fractures. Tegan tolerated her meal very well, without overt s/s aspiration. She demonstrates notably prolonged oral phase/munching chew pattern, and thus recommend continue soft and bite size diet for patient ease and efficiency, favoring pureed sides of preference like jello, cottage cheese, mashed potatoes. Continue liquid supplementation with Boost/etc. OK for small amounts of regular texture solids as requested. No follow up VIDEO GAME SCRIPT WRITER services indicated. Patient appears to be at baseline swallow function. Should further needs/concerns arise, please re-consult VIDEO GAME SCRIPT WRITER or consider outpatient workup. Plan: No follow up VIDEO GAME SCRIPT WRITER services indicated Diet Recommendations: SOLIDS: 6-Soft & Bite-Sized Solids LIQUIDS: 0-Thin Liquids - No straws MEDICATIONS: Whole with Puree STRATEGIES: 1:1Assistive feeding only by staff/family PO intake only when awake/alert? As upright as tolerated, use HOB controls/bed tilt to achieve upright positioning Regular oral hygiene BID Education Provided to: Nursing, Patient Topics Addressed: VIDEO GAME SCRIPT WRITER findings, aspiration precautions Total Time: 35 minutes ([id number]) Dysphagia therapy
--- NOTE | 2024-04-24 15:36 | NUR.NOTE ---
Nursing Note: Patient was potentially going to transfer to skilled rehab today. The care team met and it was decided that Tegan was still not ready secondary to weakness and pain management. Patient was settled back into her room. Her son is currently at the bedside.
[2024-04-24 15:49] VITALS: BP 135/69; PULSE 78; RESP 18; TEMP 36.3; O2SAT 96
--- NOTE | 2024-04-24 15:57 | CHAPLAIN ---
I had two brief visits with Tegan today. She responded to questions with a flat affect, which according to Care Management notes is her usual manner. She asked for more warm blankets and to continue watching Young Kranthi. I asked if she'd like a crocheted blanket, but she said no.
[2024-04-24] MEDS: Ondansetron 4 MG/2 ML VIAL IVP (17:28)
--- NOTE | 2024-04-24 18:36 | NUR.NOTE ---
Nursing Note: Pain management continues to be an issue. Patient reports nausea after eating dinner. We are trying to change her over to oral meds. Pt was not due for Oxycodone and due to nausea she was given IV dilaudid for 02/25.
[2024-04-24 20:38] VITALS: BP 142/72; PULSE 80; RESP 18; TEMP 37; O2SAT 96
[2024-04-24] MEDS: traZODone 100 MG TAB 200 MG PO (20:47)
[2024-04-25 02:48] VITALS: BP 140/62; PULSE 60; RESP 16; TEMP 36.5; O2SAT 96
[2024-04-25] MEDS: ACETAMINOPHEN 1,000 MG/100 ML BAG 400 MG IVPB ×2 (04:08→13:32)
[2024-04-25 08:03] VITALS: BP 168/94; PULSE 62; RESP 15; TEMP 37.1; O2SAT 96
[2024-04-25] MEDS: Sertraline 50 MG TAB 75 MG PO (08:52)
[2024-04-25] MEDS: Topiramate 25 MG TAB PO (08:54)
[2024-04-25] MEDS: Omeprazole 20 MG CAPCR 40 MG PO (08:54)
[2024-04-25] MEDS: amLODIPine 10 MG TAB PO (08:55)
[2024-04-25] MEDS: Senna TAB 1 TAB PO (08:55)
[2024-04-25] MEDS: Cholecalciferol (Vitamin D3) 1,000 UNIT TAB 2000 UNITS PO (08:55)
[2024-04-25] MEDS: Aspirin E.C. 81 MG TABEC PO (08:56)
[2024-04-25] MEDS: oxyCODONE-CR 20 MG TABCR PO (08:56)
[2024-04-25] MEDS: Normal Saline Flush 10 ML SYR IVP ×3 (08:58→13:32)
--- NOTE | 2024-04-25 10:02 | PT.INTREAT ---
PT Notes Visit Reasons: Fall at home b/1 wrist fractures Physical Therapy Inpatient Treatment Note Date: 04/25/2024 Precautions: Fall. Standard. WBAT through B UE with short arm splints to B UE. Post-op shoe to L when OOB. Subjective: Complained of being cold throughout session. Nurse Maryam pre-medicated patient about half an hour ago and gave patient IV Ativan shelter through the session to help with anxiety. Did not want to use the walker handles with platforms removed due pain in B hands and so PT and RICA Mccarthy placed the platform assembly right away. Objective: General Observation: Continues to be highly anxious. Mental Status: Alert and oriented as to person and purpose. Able to pay attention and focus but some responses are delayed. Short-term memory impaired. Swelling in B hands and fingers diminishing. Pain: 6-7/10 on B wrists Vital Signs: Closeley monitored by nursing staff Bed Mobility/Transfers: Moderate cueing provided for use of B hands as needed for support, movement sequence, AD management, and posture to reduce fall risk and minimize pain report Supine to sit moderate assist of 2 with HOB at 30 degrees Sit to stand moderate assist of 2 with use of platform walker Stand to sit moderate assist of 2 with use of platform walker Bed to toilet seat moderate assist of 2 with use of platform walker Toilet seat to bedside recliner moderate assist of 2 with use of platform walker Gait: With maximal verbal, tactile, and visual cueing and with minimal assistance of PT and RICA Mccarthy, patient was able to cover about 50 feet in the hallway, rested and walked back to room using walker with platform. Patient abruptly wanted to sit down after the 50 feet due to pain, fatigue, and coldness despite having placed a second gown to cover her back. Needed frequent redirection and encouragement to complete task. Steps discontinuous with decreased ability to extend trunk erect. Increased pain report and anxiety which needed seated rest. Balance: Static sitting: Fair Dynamic sitting: Poor Static standing: Poor Dynamic standing: Unable Special Tests: Mobility Limitations Standardized Measure [facility] AM-PAC 6 clicks Basic Mobility Inpatient Short Form: Raw Score: 11 CMS Score: 73% deficit ASSESSMENT: Did not and could not put weight through walker handles due to pain and limitation placed by brace on the wrist and fingers. With how the B UE splints were placed postoperatively, functional featheredger and reducer machine is limited which along with pain report, has limited weight bearing through walker handles. PT temporarily placed platforms on B sides which have helped walker management. Reached out to orthopd/PA for a way that the splint can be adjusted so that she can functionally position her wrist and finger for optimal featheredger and reducer machine to allow for SNF PTs to progress to walking without platforms with WBAT through B hands as initially ordered. Remains highly anxious and fearful of falling but with pre-medication and extensive encouragement, patient tolerated hallway ambulation this morning for the first time needing assistance of 2 people for safety. Will continue to coordinate with nurse for pre-medication to progress mobility level. Pain is better controlled but anxiety limited patient's safe performance which Nurse Maryam help solve by giving prn IV Ativan halway through the session. Ability to execute instructions continues to be delayed. Goals: Goals X1 week 1. Supine-Sit minimal assist NOT MET, CONTINUE at [facility] with subacute rehab 2. Sit-Supine minimal assist NOT MET, CONTINUE at SNF with subacute rehab 3. Sit-Stand minimal assist with platform walker NOT MET, CONTINUE at SNF with subacute rehab 4. Stand-Sit minimal assist with platform walker NOT MET, CONTINUE at SNF with subacute rehab 5. Bed-Chair minimal assist with platform walker NOT MET, CONTINUE at [facility] with subacute rehab 6. Chair-Bed minimal assist with platform walker NOT MET, CONTINUE at [facility] with subacute rehab 7. Independent gait on level surface with use of platform walker for at least 15 feet without report of pain nor dyspnea NOT MET, CONTINUE at [facility] with subacute rehab 8. Fair static and dynamic standing balance/tolerance NOT MET, CONTINUE at SNF with subacute rehab Plan of Care/Treatment Plan: 1-2x/day, 7 days/week x 1 week. Continue Physical Therapy intervention for pain management as needed, strengthening, bed mobility, transfers, gait, stairs, balance training, and use of assistive device. DISCHARGE RECOMMENDATIONS: [] Home with no services [] [] Home with services [specify] [] Home with outpatient PT [] [X] SNF for continued rehabilitation. Patient will benefit [facility] for continued skilled physical therapy services in order to progress mobility level, strength, and balance in preparation for a safe discharge to home. [] Radiation / Chemistry Technician Care [] [] SNF versus LTC based on ability to participate and progress [] TREATMENT CODE/TIME: [id number] x 38 minutes for 3 units (10:02-10:40).
[2024-04-25] MEDS: LORazepam 2 MG/ML VIAL 1 MG IVP (10:30)
[2024-04-25] MEDS: oxyCODONE 10 MG TAB PO (12:49)
--- NOTE | 2024-04-25 13:02 | PDOC.CMDIS ---
Date of service: 04/25/24 Time of Service: 13:02 LACE Index Scoring Tool Questions: Length of Stay (in days): 4 - 6 Was the patient admitted via the E.D.?: Yes Comorbidities: Cerebrovascular Disease and Liver or Renal Disease E.D. Visits: 2 Answers: Total Score: 14 Risk of Readmission: High Risk Care Management Discharge Plan Reason for Hospitalization: fall at home, bilateral wrist fractures Discharge Plan: Tegan was transferred to [facility] today for short term rehab prior to returning home. She transported via [employer] w/c van, coordinated by [facility]. She will follow up with her PCP and discharge plan of care. CM contacted her daughter, Renetta, and informed her of this discharge plan; she was pleased with this plan. Patient/Family Education Needs: Review discharge instructions and limitations, discussion of self care needs including ask me three. Services Needed at Discharge: [facility]way Facility ([facility]) and Transportation ([employer] [facility] [facility]) SDOH Health Related Social Needs: No Data to Display
--- NOTE | 2024-04-25 13:05 | W.PM.DS.N ---
Date of service: 04/25/24 Time of Service: 13:05 DS: Diagnosis Discharge Diagnosis (1) Closed fracture of right distal radius: Status: Acute (2) Closed fracture of left distal radius: Status: Acute (3) Contusion of left leg: Status: Acute Discharge Plan Disposition Patient Disposition: Group Home Facility(SNF) Condition: Good Discharge Details Reason For Visit: Fall at home b/1 wrist fractures Admit Date/Time: 04/20/24 17:23 Admit Provider: Barby Middleton Attending Provider: Barby Middleton Primary Care Provider: Marixa Kurtz [place] [facility] Hospital Course: Patient presented to the emergency room after experiencing mechanical fall from standing that resulted bilateral wrist fractures. She was admitted to the medicine service, and did have surgical intervention on her fractures on 04/22/2024 and did not have any postop complications. Patient worked with physical therapy and was determined that she would benefit from subacute rehab. Ultimately given the patient's fractures were repaired, was determined the patient was stable for discharge to [facility] and rehab for subacute rehab. Home Meds and New Rx's Prescriptions: New oxycodone [OxyContin] 20 mg Tablet,Oral Only,Ext.Rel.12 Hr 20 mg PO BID Qty: 10 0RF oxycodone 10 mg Tablet 10 mg PO Q4H PRN PRNQty: 10 0RF Continued sertraline 50 mg tablet 75 mg PO DAILY trazodone 100 mg tablet 200 mg PO HS PRN PRN meloxicam 15 mg tablet 15 mg PO DAILY aspirin 81 mg tablet,delayed release (DR/EC) 81 mg PO DAILY topiramate [Topamax] 25 mg tablet 25 mg PO DAILY omeprazole 40 MG capsule,delayed release(DR/EC) 40 mg PO DAILY polyethylene glycol 3350 [Miralax] 119 GM powder 17 g PO DAILY PRN PRN Patient Comments: Not on pt's updated med list ML 03/13/23 vitamin B complex Tablet 1 tab PO DAILY cholecalciferol (vitamin D3) [Vitamin D3] 25 mcg (1,000 unit) Tablet 50 mcg PO DAILY Patient Comments: Not on pt's updated med list ML 03/13/23 sertraline 25 mg tablet 25 mg PO DAILY lorazepam [Ativan] 1 mg tablet 1 mg PO DAILY PRNQty: 10 0RF sennosides [senna] 8.6 mg tablet 8.6 mg PO QPM amlodipine 10 mg tablet 10 mg PO DAILY naloxone 4 mg/actuation spray,non-aerosol 4 mg INTRANASAL ONCE PRN Patient Comments: ADMINISTER 1 SPRAY INTO ONE NOSTRIL A SINGLE DOSE NEEDED FOR EXCESSIVE SEDATION Magnesium (oxide/AA chelate) 300 mg capsule 1 cap PO BID Discontinued oxycodone [OxyContin] 40 mg tablet,oral only,ext.rel.12 hr 40 tab PO BID Patient Comments: TAKE ONE TABLET BY MOUTH TWICE A DAY prochlorperazine maleate 5 mg tablet 5 mg PO BID PRN PRN Patient Comments: TAKE 1 TABLET BY MOUTH 2 TIMES DAILY NEEDED nitrofurantoin monohyd/m-cryst 100 mg capsule 100 mg PO BID Discharge Instructions Activity:: Activity as Tolerated Equipment/Supplies:: No Equipment Needed Diet:: As Tolerated Discharge Orders Discharge Orders: Discharge Order (Routine); Ordered 04/25/24 Ordered By: Alverto Fuller DS: Summary Time Spent with Patient providing and/or coordinating discharge services: Greater than 30 minutes Status at Discharge Functional status at discharge: independent ambulation Overall status at discharge: patient is back to baseline Mental Status: mental status grossly normal Speech and Movement: speech and movement normal Mood: congruent mood Affect: normal affect Quality:SDOH Health Related Social Needs: No Data to Display Exam Narrative Exam Narrative: Well-appearing older female laying in bed in no acute distress, ANO x 4, no significant ecchymosis over right orbital without significant swelling, heart regular rate rhythm, lungs clear to auscultation bilaterally, abdomen soft, nontender, nondistended, bilateral wrists wrapped in Eyad bandages and immobilized Psych Mental Status: mental status grossly normal Speech and Movement: speech and movement normal Mood: congruent mood Affect: normal affect DS: Data Vitals/I&O Vitals and I&O: Vital Signs Temperature 98.8 F 04/25/24 08:03 Temperature Source Temporal Artery Scan 04/25/24 08:03 Pulse 62 04/25/24 08:03 Pulse Strength Normal 04/24/24 21:00 Pulse 63 04/22/24 17:10 Respiratory Rate 15 04/25/24 08:03 Respiratory Effort Normal, Non-Labored 04/20/24 19:05 Respiratory Depth Normal 04/20/24 19:05 Respiratory Pattern Normal 04/20/24 19:05 Blood Pressure 168/94 H 04/25/24 08:03 Blood Pressure Mean 94 04/22/24 17:06 Blood Pressure Position Supine 04/20/24 19:05 Pulse Oximetry 96 04/25/24 08:03 Respiratory End-tidal CO2 35 04/22/24 17:06 Oxygen Delivery Method Room Air 04/25/24 08:03 Oxygen Flow Rate 0 04/25/24 08:03 Pain Level 0 04/25/24 08:03 Comment RN notified of bp 04/25/24 08:03 Intake & Output 04/24/24 04/25/24 04/25/24 17:59 05:59 17:59 Intake Total 820 / 820 300 / 1120 Output Total 1175 / 1175 800 / 800 Balance -355 / -355 300 / -55 -800 / -800 Weight 143 lb 4.807 oz Intake: IV 100 / 100 200 / 300 Oral 720 / 720 100 / 820 Output: Urine 1175 / 1175 800 / 800 Other: Urine Color Yellow Straw Urine Appearance Clear Clear Comment pt voided on the floor during transfer. We put brief on her after. Stool Size Large Stool Characteristics Formed Data Completed and Pending Labs on day of discharge: Preliminary micro results at discharge 04/20/24 11:23 Blood Culture - Preliminary Blood Staphylococcus Warneri Staph hominis ssp hominis 04/21/24 06:20 Blood Culture - Preliminary Blood NO GROWTH 96 HOURS 04/21/24 06:20 Blood Culture - Preliminary Blood NO GROWTH 96 HOURS 04/20/24 12:25 Blood Culture - Preliminary Blood NO GROWTH 96 HOURS PFSH All Active Problems (Updated 04/24/24 @ 07:57 by Jonathan Paulino MD) Contusion of left leg (Acute) Closed fracture of distal end of radius (Acute) Palliative care patient (Acute) ACP (advance care planning) (Acute) Closed fracture of left distal radius (Acute) Closed fracture of right distal radius (Acute) Heart murmur (Acute) Depression (Chronic) At high risk for skin breakdown (Acute) Periorbital edema (Acute) Hiatal hernia (Chronic) moderate Coronary artery calcification seen on CAT scan (Acute) Diverticula of colon (Acute) DJD (degenerative joint disease), lumbar (Acute) History of CVA (cerebrovascular accident) (Acute) remote Fracture of both wrists (Acute) Goiter (Acute) Fibromyalgia (Chronic) KWAME (obstructive sleep apnea) (Chronic) Chronic pain (Chronic) Movement disorder (Acute) Chronic renal insufficiency, stage III (moderate) (Acute) Anemia (Chronic) Hypertension (Chronic) Medical History Primary osteoarthritis of left knee We will see the patient back in 4-1/2 months for possible repeat Synvisc 1 in her left knee would consider x-ray in her right knee if she is still significantly symptomatic Osteoarthritis of right knee Steroid injection: 04/05/2020 Has had previous viscosupplementation injections. 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) As treatment for a femoral neck fracture (DOI: 09/16/2020) History of back surgery Hx of cholecystectomy Social History Smoking/Tobacco Use Status: Never Smoking risk assessment performed?: Yes Alcohol Intake: never Drug use: Never Substance use type: does not use Housing: house Do you feel safe at home: Yes Do you feel safe in your relationship?: Yes Additional Social history: lives alone, has caregiver that come 7 days a week, do all the meds Time Spent with Patient Time Spent with Patient: <45 minutes Time was spent: preparing to see the patient(eg.review tests), obtaining and/or reviewing separately otained hiistory, ordering medications,tests, procedures, referring, communicating with other health prompt care rn, indepentently interpreting results, counseling the patient and care coordination
--- NOTE | 2024-04-25 13:16 | W.PM.PROGNOT ---
Date of Service Date of service: 04/25/24 Time of Service: 13:57 Assessment and Plan Assessment and plan (1) Closed fracture of right distal radius: Status: Acute Qualifiers: Encounter type: initial encounter Fracture morphology: other intra-articular Qualified Code(s): S52.571A - Other intraarticular fracture of lower end of right radius, initial encounter for closed fracture (2) Closed fracture of left distal radius: Status: Acute Assessment and plan: Plan: Ms. Ashton is a 73-year-old female who is post op day 3 status post bilateral wrist ORIFs on 04/22/24. She seems to be doing well. She is moving her fingers fully. Her pain seems to be appropriate of the hands and expect this will improve over the next few days. She should elevate when she is not using the hands. She is to work on finger range of motion and work with occupational therapy in order to assist with activities of daily living and develop a discharge plan. Discussed pain level with her nursing team - they were getting ready to dispense next dose of acetaminophen and rate her pain level. Will use walker with platforms for ambulation - walker with platforms was used with her during session of PT today. Educated patient on plan. She had opportunity to have questions answered to her satisfaction. Will see her back in 2 weeks for splint removal and wound check with transition to removable wrist braces at that time. Qualifiers: Encounter type: initial encounter Fracture morphology: other intra-articular Qualified Code(s): S52.572A - Other intraarticular fracture of lower end of left radius, initial encounter for closed fracture Subjective Subjective Interval history since last seen: Ms. Ashton is a 73-year-old female who is post op day 3 status post bilateral wrist ORIFs. She continues to describe generalized discomfort about her body. Patient has continued to move fingers well and splints without issue. Patient does describe discomfort about hands but relates it to similar overall body discomfort. She did work with physical therapy earlier today. Exam Narrative Exam Narrative: Initially patient was sleeping when provider entered the room and does not wish to participate in much examination. Leaning on pillows in the bed. No acute distress. Resolving ecchymosis around the left eye and throughout the face. Evaluation of bilateral upper extremity shows intact splints. She is able to demonstrate active finger extension and flexion of both hands. She endorses full sensation over the median, radial, ulnar nerves. No significant pain with active range of motion of the fingers. Objective Last Vital Signs Temp 98.8 F 04/25/24 08:03 Pulse 62 04/25/24 08:03 Resp 15 04/25/24 08:03 BP 168/94 H 04/25/24 08:03 Pulse Ox 96 04/25/24 08:03 Time Spent with Patient Time Spent with Patient: <25 minutes Time was spent: preparing to see the patient(eg.review tests), referring, communicating with other health medicare insurance specialist and care coordination
== END 2024-04-25 14:11 | disposition skilled nursing facility (03) | DRG 511 ==
LOC: ER 17:37 → ICU 18:19 → MS 04-22 17:23
PROVIDERS: Emergency Medicine; Family Medicine; Student in an Organized Health Care Education/Training Program; Admitting Provider Surgery; Emergency Provider Physician Assistant; PCP Family Medicine; Visit Provider Surgery
PROC: 0PSJ04Z Reposition Left Radius with Internal Fixation Device, Open Approach (ICD-10-PCS; CPT 25609; principal; 2024-04-22 13:15)
DX: S52.571A Other intraarticular fracture of lower end of right radius, initial encounter for closed fracture (principal); G25.9 Extrapyramidal and movement disorder, unspecified; S52.572A Other intraarticular fracture of lower end of left radius, initial encounter for closed fracture; S05.12XA Contusion of eyeball and orbital tissues, left eye, initial encounter; I25.10 Atherosclerotic heart disease of native coronary artery without angina pectoris; E04.9 Nontoxic goiter, unspecified; Z86.73 Personal history of transient ischemic attack (TIA), and cerebral infarction without residual deficits; M79.7 Fibromyalgia; G47.33 Obstructive sleep apnea (adult) (pediatric); N18.30 Chronic kidney disease, stage 3 unspecified; D64.9 Anemia, unspecified; I12.9 Hypertensive chronic kidney disease with stage 1 through stage 4 chronic kidney disease, or unspecified chronic kidney disease; H90.3 Sensorineural hearing loss, bilateral; F32.A Depression, unspecified; F51.04 Psychophysiologic insomnia; Z98.1 Arthrodesis status; M47.816 Spondylosis without myelopathy or radiculopathy, lumbar region; K57.30 Diverticulosis of large intestine without perforation or abscess without bleeding; R60.0 Localized edema; M54.9 Dorsalgia, unspecified; R01.1 Cardiac murmur, unspecified; S80.12XA Contusion of left lower leg, initial encounter; W19.XXXA Unspecified fall, initial encounter; K58.1 Irritable bowel syndrome with constipation
CPT/HCPCS: 25609; 00123; 25560; 25600; 36410; 36415; 36430; 51702; 74177; 76000; 80048; 80053; 80061; 82550; 85027; 86850; 86900; 86901; 86920; 87040; 87077; 90471; 90715; 92526; 92610; 93005; 93306; 97163; 97530; 99223; 99285; 70450; 71260; 72125; 73100; 73110; 73590; 73600; 73630; 81003; 81015; 82607; 82728; 82746; 83605; 83615; 83735; 84443; 84484; 85014; 85018; 85025; 85045; 85610; 87186; 93010; 94640; 99222; 99232; 99233; 99239; J0131; J0690; J1100; J1171; J1805; J1885; J1920; J2003; J2060; J2405; J2470; J2704; J3490; P9016

== ENCOUNTER 2024-05-05 18:27 | Outpatient (REF) | payer MEDICARE, MEDICAID, SELFPAY ==
[2024-05-05 17:30] LABS: HCT 29.2 % (36.0-46.0); HGB 9.1 g/dL (11.2-15.7); MCH 26.7 pg (27.0-33.0); MCHC 31.2 % (32.0-36.0); MCV 86 fL (80-95); MPV 9.7 fL (8.0-11.0); Platelet Count 317 10^3/uL (130-400); RBC 3.41 10^6/uL (3.93-5.22); RDW 18.3 % (11.7-14.6); RDW-SD 57.6 fL; WBC 3.52 10^3/uL (4.4-10.8)
[2024-05-05 17:38] LABS: BUN 27 mg/dL (7-18); CREATININE 1.2 mg/dL (0.55-1.02); Calcium 9.1 mg/dL (8.5-10.1); Chloride 111 mmol/L (98-107); Estimated GFR 47.21 (mL/min/1.73m2); Glucose 103 mg/dL (74-106); Potassium 3.9 mmol/L (3.5-5.1); Sodium 146 mmol/L (136-145)
== END 2024-05-05 18:28 | disposition home or self-care (01) ==
LOC: LBN 18:27
PROVIDERS: PCP Family Medicine; Visit Provider Family Medicine
DX: N18.30 Chronic kidney disease, stage 3 unspecified (principal)
CPT/HCPCS: 80048; 85027

== ENCOUNTER 2024-05-08 15:50 | Outpatient (REF) | payer SELFPAY ==
--- NOTE | 2024-05-08 15:00 | DI.RAD_ITS ---
Exam(s) XR WRIST RT LIMITED EXAM: XR WRIST RT LIMITED CLINICAL HISTORY: S/P ORIF. TECHNIQUE: 2D digital imaging was performed. Three views. COMPARISON: CR XR WRIST RT COMPLETE from 04/20/2024 CR XR WRIST RT LIMITED from 04/22/2024 FINDINGS: BONES: Stable distal radial fracture and hardware alignment. No bony destructive lesion is seen. JOINTS: The carpal bones are normally aligned. Advanced degenerative changes again noted at the 1st carpal metacarpal joint. SOFT TISSUE: Swelling remains present. No gas collection. IMPRESSION: Stable alignment of distal radial fracture. DATA REPOSITORY: RADIATION DOSE DELIVERED:
--- NOTE | 2024-05-08 15:00 | DI.RAD_ITS ---
Exam(s) XR WRIST LT LIMITED EXAM: XR WRIST LT LIMITED CLINICAL HISTORY: S/P ORIF. TECHNIQUE: 2D digital imaging was performed. Three views. COMPARISON: CR XR WRIST LT COMPLETE from 04/20/2024 CR XR WRIST LT LIMITED from 04/22/2024 FINDINGS: BONES: A volar fixation plate is again noted along the distal rate radius. There has been no change in in fracture or hardware alignment. The distal ulnar fracture is also unchanged. No bony destruct ana lesion is seen. JOINTS: Severe degenerative changes again noted at the 1st carpal metacarpal joint. SOFT TISSUE: Swelling remains present. No abnormal gas collection. IMPRESSION: Stable fracture and hardware alignment. DATA REPOSITORY: RADIATION DOSE DELIVERED:
== END 2024-05-08 15:51 | disposition home or self-care (01) ==
LOC: DIORS 15:50
PROVIDERS: PCP Family Medicine; Referring Provider Family Medicine; Visit Provider Student in an Organized Health Care Education/Training Program
DX: S52.571D Other intraarticular fracture of lower end of right radius, subsequent encounter for closed fracture with routine healing; X58.XXXD Exposure to other specified factors, subsequent encounter
CPT/HCPCS: 99024; 73100

== ENCOUNTER 2024-05-14 17:14 | Outpatient (REF) | payer MEDICARE, MEDICAID, SELFPAY ==
[2024-05-14 16:51] LABS: HCT 27.6 % (36.0-46.0); HGB 8.6 g/dL (11.2-15.7); MCH 26.6 pg (27.0-33.0); MCHC 31.2 % (32.0-36.0); MCV 85 fL (80-95); Platelet Count 223 10^3/uL (130-400); RBC 3.23 10^6/uL (3.93-5.22); RDW 17.9 % (11.7-14.6); RDW-SD 56.1 fL; WBC 3.36 10^3/uL (4.4-10.8)
[2024-05-14 17:13] LABS: BUN 23 mg/dL (7-18); Calcium 8.7 mg/dL (8.5-10.1); Chloride 108 mmol/L (98-107); Estimated GFR 58.75 (mL/min/1.73m2); Glucose 128 mg/dL (74-106); Potassium 3.6 mmol/L (3.5-5.1); Sodium 142 mmol/L (136-145)
== END 2024-05-14 17:15 | disposition home or self-care (01) ==
LOC: LBN 17:14
PROVIDERS: PCP Family Medicine; Visit Provider Family Medicine
DX: R68.89 Other general symptoms and signs (principal)
CPT/HCPCS: 80048; 85027

== ENCOUNTER 2024-08-18 11:40 | Inpatient (IN) | payer MEDICARE, MEDICAID, SELFPAY ==
[2024-08-18] VITALS (53 sets, daily range): BP systolic 116–197; BP diastolic 60–90; PULSE 47–90; RESP 10–26; TEMP 36.1–36.9; O2SAT 92–100
--- NOTE | 2024-08-18 11:45 | DI.CT_ITS ---
Exam(s) CT CHEST/ABD/PEL W EXAM: CT CHEST/ABD/PEL W CLINICAL HISTORY: Fall, CP and R. hip pain. TECHNIQUE: Imaging Protocol: Axial computed tomography images with coronal and sagittal reformatted images were created and reviewed CONTRAST MATERIAL: Intravenous: Omnipaque 350 Contrast volume:75 ml Oral: None COMPARISON: CT CT THORACIC LUMBAR SPINE REC from 08/18/2024 FINDINGS: CHEST: LUNGS: There is a small 1 cm nodular infiltrate in the right upper lobe (series 5/image 16). There i s some infiltrate in the medial segment of the right middle lobe. Increased markings noted in the po sterior basal segment of the right lower lobe as well as posterior basal segment of the left lower lo be. There are no pleural effusions. No pneumothorax.. MEDIASTINUM: No evidence of sternal fracture or mediastinal hematoma. Multiple left thyroid lobe nod ules are noted. CARDIAC: Heart size is normal. There is no pericardial effusion.Caliber of the thoracic aorta is wit hin normal limits. No evidence of dissection OSSEOUS: No fractures. No significant osseous lesions. Evidence of previous cervical spine fusion s urgery and rotator cuff surgery in the right shoulder. There are no acute appearing vertebral body f ractures in the thoracic and lumbar spines. No rib fractures identified.. ABDOMEN: There is no ascites. No evidence of bowel wall nor mesenteric hematoma. Incidentally noted is an ab normally enhancing lesion in the cysts stomach just beyond the GE junction which measures 2 by 2 cm. However, there is a EX moderate size hiatal hernia at this level and this may be causative for this finding. There is circumferential thickening of the pylorus-distal stomach. LIVER: There are no focal hepatic lesions. There are dilated intrahepatic ducts as well as dilated C BD throughout its length with CBD measuring up to 11 mm in this patient has had prior cholecystectomy . There are no radiopaque calculi seen within the lower CBD. No obvious mass at the CBD junction wi th the duodenal wall. GALLBLADDER/BILIARY: Gallbladder surgically absent. CBD is not dilated. PANCREAS: There is a cystic lesion in the pancreatic head measuring 9 x 10 x 16 mm. Remainder of the pancreas appears somewhat atrophic. No obvious dilatation of the pancreatic duct. SPLEEN: Spleen size normal. No splenic lacerations nor perisplenic fluid. Splenic and portal veins are patent. ADRENALS: There are no significant adrenal masses. KIDNEYS: No evidence of renal laceration or subcapsular hematomas. No significant renal masses nor c ysts nor calculi nor hydronephrosis.. ABDOMINAL AORTA: There is a fusiform infrarenal abdominal aortic aneurysm which exhibits a maximum di ameter of 2.2 cm. The aorta above this level exhibits a diameter of 1.8 cm. Distal most abdominal a melchor exhibits diameter 1.5 cm. There is no significant dilatation of the iliac arteries. LYMPH NODES: There is no retroperitoneal nor paraaortic adenopathy. ABDOMINAL WALL: No evidence of significant anterior abdominal wall nor inguinal hernia. GI: There is no evidence of bowel obstruction.No evidence of mesenteric nor bowel wall hematoma. PELVIS: LYMPH NODES: There is no intrapelvic nor inguinal adenopathy. GI: No evidence of appendicitis.No evidence of sigmoid diverticulitis. URINARY BLADDER: No obvious abnormalities. REPRODUCTIVE: Age-appropriate. Also no free fluid in the pelvis. OSSEOUS: No acute fractures. No osseous lesions. Left hip prosthesis. Advanced degenerative changes in the right hip. IMPRESSION: 1. No fractures evident. Small 1 cm nodular infiltrate in the right upper lobe noted; doubtful relat ed to trauma. Also infiltrate in the right middle lobe. Increased markings both lower lobes. No pl eural effusions. No rib or sternal fractures. No pneumothorax. 2. Moderate size hiatal hernia with possible mass at this level as described above. 3. There is also circumferential thickening of the pylorus in the distal stomach. Recommend endoscop y for these findings. 4. Significantly dilated biliary tree, both intra and extrahepatic. Although there has been prior ch olecystectomy, the amount of dilatation of biliary tree exceeds what is expected. Correlation with b lood work recommended. 5. There is a 1.6 x 1.0 x 0.9 cm cystic abnormality in the pancreatic head. Possibly cystic neoplas m. Recommend follow-up pancreatic protocol MRI. Intact left hip prosthesis. Right hip advanced osteoarthritis. Discussed with ER physician 08/18/2024 at 2:40 p.m. RADIATION DOSE DELIVERED: 375.76mGy.cm Total DLP DATA REPOSITORY: All CT scans at this facility are submitted to the National Radiology Data Registry (NRDR) Dose Index Registry (DIR) with the [employer] ([employer]). RADIATION OPTIMIZATION: All CT scans at this facility use at least one of these dose optimization te chniques: automated exposure control; mA and/or kV adjustment per patient size (includes targeted exa ms where dose is matched to clinical indication); or iterative reconstruction.
--- NOTE | 2024-08-18 11:45 | DI.CT_ITS ---
Exam(s) CT HEAD CERVICAL SPINE WO EXAM: CT HEAD CERVICAL SPINE WO CLINICAL HISTORY: fall, neck pain. TECHNIQUE: Imaging Protocol: Axial computed tomography images with coronal and sagittal reformatted images were created and reviewed COMPARISON: CT CT HEAD WO from 07/20/[address] BRAIN NECK CTA from 11/30/[address] HEAD CERVICAL SPINE WO from 04/20/2024 FINDINGS: BRAIN: There are no skull fractures nor fluid in the visualized paranasal sinuses. Again noted is encephalomalacia from prior infarct in the right occipital lobe with ex vacuo dilatati on the septal point of right lateral ventricle again noted. There are also again noted chronic micro vascular hypodensity changes in the periventricular white matter consistent with chronic small vessel disease and there are small bilateral lacunar infarcts again noted, unchanged. Also lacunar infarct in the right thalamus, unchanged. Previously described calcification in the basal ganglia is again evident. However on the present shikha dy this appears slightly more prominent than previous. Most probably related to slight changes in ga ntry angle. No extra-axial blood. There is heavy calcification again noted in the internal carotid arteries in the skull base-cavernous sinuses as well as in the bilateral vertebral arteries at the skull base, indicating atherosclerotic involvement. CERVICAL SPINE: There is no evidence of fracture nor listhesis. No significant prevertebral soft tissue swelling. Again noted is multilevel anterior fusion hardware at C4-7 level, appearing unchanged and with affect ana fusion both anteriorly and at the level the facet joints at these levels. There is moderate disc space narrowing at C3-4 level again noted, this being 1 level above the fusion. Upper T2 level face t joints are not fused. There is no significant facet joint malalignment. No significant osseous lesions evident. IMPRESSION: Right occipital lobe encephalomalacia from prior infarct is unchanged from prior studies as is multil evel chronic white matter ischemic changes sleep and multiple small lacunar infarcts, all nonhemorrha gic. Previously described bilateral basal ganglia calcification appears slightly more prominent on both si angelia when compared to multiple prior studies. Although small bilateral symmetrical basal ganglia hemo rrhage is is uncommon, this cannot be completely excluded and if there is been head trauma than I wou ld recommend repeat noninfused CT scan in 24 hours, earlier if clinically indicated. No evidence of cervical spine fracture, malalignment, nor acute compromise of the cervical spinal can al. Multilevel anterior fusion hardware from C 4 down to C7, appearing unchanged from previous. Called by myself to ER 08/18/2024 at 2:04 p.m. RADIATION DOSE DELIVERED: 1,099.44mGy.cm Total DLP DATA REPOSITORY: All CT scans at this facility are submitted to the National Radiology Data Registry (NRDR) Dose Index Registry (DIR) with the [employer] ([employer]). RADIATION OPTIMIZATION: All CT scans at this facility use at least one of these dose optimization te chniques: automated exposure control; mA and/or kV adjustment per patient size (includes targeted exa ms where dose is matched to clinical indication); or iterative reconstruction.
--- NOTE | 2024-08-18 11:45 | RT.EKG_ITS ---
APPROVED REPORT Exam: Resting ECG Reason for Exam: fall, prolongued down time Patient Location: E HR:87 bpm ECG Measurements Heart Rate 87 AXIS NH 174 P 71 QRSd 77 QRS 34 QT 380 T 69 QTc 453 Conclusion Sinus rhythm, rate 87 Unifocal PVCs No STEMI
--- NOTE | 2024-08-18 11:59 | DI.CT_ITS ---
Exam(s) CT THORACIC LUMBAR SPINE REC EXAM: CT THORACIC LUMBAR SPINE REC CLINICAL HISTORY: Fall, midline pain TECHNIQUE: COMPARISON: CT CT THORACIC LUMBAR SPINE REC from 04/20/2024 FINDINGS: THORACIC SPINAL COLUMN: Multilevel fusion cervical spine noted. Thoracic vertebrae appear unremarkable no fractures nor list hesis nor significant disc space narrowing. No facet malalignment. No acute compromise of the thora cic spinal canal. LUMBOSACRAL SACRAL SPINAL COLUMN: No evidence of acute fracture. Multilevel disc space narrowing. Also mild degenerative anterolisthe sis L3 upon L4. Multilevel facet arthropathy. No facet joint malalignment. Left hip prosthesis noted. Advanced osteoarthritis of right hip evident IMPRESSION: No evidence of acute fractures in the thoracic and lumbosacral spinal columns.
--- NOTE | 2024-08-18 12:29 | W.ED.GENAD ---
Discharge Plan Disposition Patient Disposition: Admit to [facility] Condition: Stable Discharge Details Chief Complaint: Fall/Non TraumaCriteria Clinical Impression: Fall, Hypertension, KWAME (obstructive sleep apnea), History of CVA (cerebrovascular accident), Acute kidney injury superimposed on CKD, Acute UTI Primary Care Provider: Marixa Kurtz ED Provider: Mariella Soliman Home Meds and New Rx's Prescriptions: No Action sertraline 50 mg tablet 75 mg PO DAILY trazodone 100 mg tablet 200 mg PO HS PRN PRN meloxicam 15 mg tablet 15 mg PO DAILY magnesium oxide 500 mg capsule 500 mg PO BID aspirin 81 mg tablet,delayed release (DR/EC) 81 mg PO DAILY topiramate [Topamax] 25 mg tablet 25 mg PO DAILY omeprazole 40 MG capsule,delayed release(DR/EC) 40 mg PO DAILY polyethylene glycol 3350 [Miralax] 119 GM powder 17 g PO DAILY PRN PRN Patient Comments: Not on pt's updated med list ML 03/13/23 vitamin B complex Tablet 1 tab PO DAILY cholecalciferol (vitamin D3) [Vitamin D3] 25 mcg (1,000 unit) Tablet 50 mcg PO DAILY Patient Comments: Not on pt's updated med list ML 03/13/23 sertraline 25 mg tablet 25 mg PO DAILY oxycodone [OxyContin] 20 mg Tablet,Oral Only,Ext.Rel.12 Hr 20 mg PO BID Qty: 10 0RF oxycodone 10 mg Tablet 10 mg PO Q4H PRN PRNQty: 10 0RF lorazepam [Ativan] 1 mg tablet 1 mg PO DAILY PRNQty: 10 0RF sennosides [senna] 8.6 mg tablet 8.6 mg PO QPM amlodipine 10 mg tablet 10 mg PO DAILY naloxone 4 mg/actuation spray,non-aerosol 4 mg INTRANASAL ONCE PRN Patient Comments: ADMINISTER 1 SPRAY INTO ONE NOSTRIL A SINGLE DOSE NEEDED FOR EXCESSIVE SEDATION nitrofurantoin monohyd/m-cryst 100 mg capsule 100 mg PO DAILY ondansetron HCl 4 mg tablet 4 mg PO BID Patient Comments: TAKE ONE TABLET BY MOUTH TWICE A DAY BEFORE MEALS FOR NAUSEA risperidone 1 mg tablet 1 mg PO .Bedtime Patient Comments: TAKE ONE TABLET BY MOUTH AT BEDTIME cannabidiol (CBD) oral edible 1 tab PO PRN PRN HPI General Mode of arrival: EMS. Date/Time Provider Initiated Documentation: 08/18/24 11:46. Limitations to Documentation: altered mental status. Information obtained by: patient, EMS and old records reviewed. HPI Narrative: HPI: This is a 73-year-old female patient with a past medical history significant for CVA, KWAME, CKD, anemia and hypertension who is presenting for evaluation with EMS after a fall. The patient resides alone, was found on the floor this morning by her home health care nurses, unknown why she fell. The patient herself does not recall falling, but they do suspect she has been on the floor overnight. The patient is complaining primarily of pain in her right shoulder and left knee. She also endorses neck and back pain, right-sided chest pain and right hip pain. EMS placed her in a c-collar, noted her to be hemodynamically appropriate, and transported her to our facility for further workup. Exam: Gen: awake and alert, appears uncomfortable, appears well nourished. HEENT: PERRL, EOMs full and without nystagmus. External ears and nose normal, mucous membranes moist. Neck: No step-offs, patient endorsing tenderness to palpation, c-collar in place Lungs: No increased work of breathing, lung sounds clear and equal bilaterally without wheezes, rhonchi, or rales. CV: Heart with regular rate and rhythm. Strong and symmetrical radial pulses. Abdomen: Soft, nondistended, non-tended to palpation. No rigidity, rebound tenderness, or guarding. MSK: The patient has tenderness to palpation in the midline of the T and L-spine, no step-offs. Clavicle stable, patient does have an area of redness overlying the lateral aspect of her right shoulder that is notably tender. She endorses tenderness down the entirety of her right arm to the level of the wrist. No external skin changes, deformity appreciated. Chest wall is reported to be tender on the right side with no crepitus or deformity. Pelvis stable to AP compression, patient endorses tenderness over the right hip with palpation. Right lower extremity atraumatic, left upper extremity atraumatic, has a Band-Aid overlying what appears to be an attempted an IV on the dorsal aspect of the left hand. Left knee is tender along the lateral joint line and just superior to this, with ecchymosis appreciated. Skin: No rashes or lesions to visualized skin. Normal color, warm, and dry. Neuro: No facial asymmetry, moves all 4 extremities without apparent weakness or deficit with the exception of the right upper extremity, no reported sensory deficits. Psych: Appropriate for situation. MDM: This is a 73-year-old female patient presenting for evaluation after fall. Differential includes but is not limited to traumatic injuries including intracranial hemorrhage, though the patient does not take blood thinning medications. Considered skull fracture, spine fracture, long bone fracture, dislocation, sprain/strain, contusion. I certainly considered intrathoracic and intra-abdominal injuries, hip fractures. Also considered metabolic electrolyte derangements, rhabdomyolysis, dehydration, kidney injury. The etiology of the patient's fall is not known, considered syncope, arrhythmia, ACS, etc. We will obtain a trauma preston scan, laboratory studies to include CBC, CMP, magnesium, troponin, and CK, and will obtain an EKG. I will provide the patient with a dose of Tylenol for initial management of pain. ED Course: I reviewed patient's EKG, which shows a sinus rhythm with PVCs, no active ischemia appreciated. Laboratory studies reviewed by myself, no leukocytosis is noted, patient has a stable anemia and no thrombocytopenia. Chemistry panel without significant electrolyte derangements, though she does have an elevation in her BUN to 32 with a BUN to creatinine ratio greater than 20-1. CK elevated to 615. Initial troponin negative. I will provide the patient with fluid rehydration in the setting of her prerenal azotemia. UA appears infectious with nitrites, for which I provided her with a dose of ceftriaxone. The patient extensive imaging studies were reviewed by myself, and discussed at length with the radiologist. She does have an area of basal pancreatic calcification that appears more prominent than compared to prior studies from 2023. She has no other traumatic findings, does have evidence of right middle lobe infiltrate, and some incidental findings including biliary tree dilation without associated liver enzyme abnormalities. I reached out to the [facility] trauma team and neurosurgery team, who reviewed the imaging and feel that this basal ganglia changes unlikely to represent acute traumatic hemorrhage in this patient who is not anticoagulated. They recommend MRI imaging in the morning, and I will admit the patient to this hospital given her ongoing workup. Additionally, I do notice the patient to be intermittently more difficult to wake up, she does have evidence of KWAME pattern breathing, and requires noxious stimuli after a period of rest. A VBG was ordered, and azithromycin was added for pulmonary coverage. I discussed this case with the hospitalist team, who evaluated the patient and have graciously accepted her for admission to their service. She remained hemodynamically appropriate, and her mental status actually did improve on reassessment, transferred from our service without incident. Related Data Home Medications ?Medication ?Instructions ?Recorded ?Confirmed omeprazole 40 mg capsule,delayed 40 mg PO DAILY 05/19/14 08/18/24 release polyethylene glycol 3350 17 17 g PO DAILY PRN PRN 05/19/14 08/18/24 gram/dose oral powder (Miralax) cholecalciferol (vitamin D3) 25 50 mcg PO DAILY 01/05/20 08/18/24 mcg (1,000 unit) tablet (Vitamin D3) vitamin B complex 1 tab PO DAILY 01/05/20 08/18/24 sertraline 50 mg tablet 75 mg PO DAILY 10/19/20 08/18/24 trazodone 100 mg tablet 200 mg PO HS PRN PRN 01/03/21 08/18/24 aspirin 81 mg tablet,delayed 81 mg PO DAILY 06/23/21 08/18/24 release meloxicam 15 mg tablet 15 mg PO DAILY 08/08/21 08/18/24 amlodipine 10 mg tablet 10 mg PO DAILY 01/14/22 08/18/24 sennosides 8.6 mg tablet (senna) 8.6 mg PO QPM 01/14/22 08/18/24 topiramate 25 mg tablet (Topamax) 25 mg PO DAILY 08/06/22 08/18/24 naloxone 4 mg/actuation nasal spray 4 mg intranasal ONCE PRN 07/16/23 08/18/24 sertraline 25 mg tablet 25 mg PO DAILY 04/23/24 08/18/24 lorazepam 1 mg tablet (Ativan) 1 mg PO DAILY PRN #10 tabs 04/24/24 08/18/24 oxycodone 10 mg tablet 10 mg PO Q4H PRN PRN #10 tabs 04/24/24 08/18/24 oxycodone 20 mg tablet,crush 20 mg PO BID #10 tabs 04/24/24 08/18/24 resistant,extended release 12 hr (OxyContin) magnesium oxide 500 mg capsule 500 mg PO BID 05/06/24 08/18/24 cannabidiol (CBD) oral edible 1 tab PO PRN PRN 08/18/24 08/18/24 nitrofurantoin 100 mg PO DAILY 08/18/24 08/18/24 monohydrate/macrocrystals 100 mg capsule ondansetron HCl 4 mg tablet 4 mg PO BID 08/18/24 08/18/24 risperidone 1 mg tablet 1 mg PO .Bedtime 08/18/24 08/18/24 Previous Rx's ?Medication ?Instructions ?Recorded lorazepam 1 mg tablet (Ativan) 1 mg PO DAILY PRN #10 tabs 04/24/24 oxycodone 10 mg tablet 10 mg PO Q4H PRN PRN #10 tabs 04/24/24 oxycodone 20 mg tablet,crush 20 mg PO BID #10 tabs 04/24/24 resistant,extended release 12 hr (OxyContin) Allergies Allergy/AdvReac Type Severity Reaction Status Date / Time sulfamethoxazole (From Allergy Diarrhea Verified 08/18/24 12:04 Bactrim) trimethoprim (From Bactrim) Allergy Diarrhea Verified 08/18/24 12:04 morphine AdvReac Intermediate Psychosis Unverified 08/18/24 12:04 baclofen AdvReac Unknown Unknown Unverified 08/18/24 12:04 chlorthalidone AdvReac Unknown Unknown Unverified 08/18/24 12:04 codeine AdvReac Unknown Unknown Unverified 08/18/24 12:04 dextromethorphan AdvReac Unknown Unknown Unverified 08/18/24 12:04 gabapentin (From Neurontin) AdvReac Unknown Unknown Unverified 08/18/24 12:04 hydrochlorothiazide AdvReac Unknown Unknown Unverified 08/18/24 12:04 pregabalin AdvReac Unknown Dopey Unverified 08/18/24 12:04 General Stated Complaint: Fall/Non TraumaCriteria LOLITA: 3 Course Vital Signs Vital signs: Vital Signs Temperature 36.1 C L 08/18/24 11:51 Pulse 90 08/18/24 11:51 Respiratory Rate 18 08/18/24 11:51 Blood Pressure 142/80 H 08/18/24 11:51 Pulse Oximetry 94 08/18/24 11:51 Temperature 36.1 C L 08/18/24 11:51 Temperature Source Oral 08/18/24 11:51 Pulse 90 08/18/24 11:51 Respiratory Rate 18 08/18/24 11:51 Blood Pressure 142/80 H 08/18/24 11:51 Blood Pressure Position Supine 08/18/24 11:51 Pulse Oximetry 94 08/18/24 11:51 Oxygen Delivery Method Room Air 08/18/24 11:51 Oxygen Flow Rate 0 08/18/24 11:51 Pain Level 8 08/18/24 11:51 Medical Decision Making Quality:SDOH Health Related Social Needs: No Data to Display PFSH All Active Problems (Updated 08/18/24 @ 17:48 by Mariella Soliman MD) Acute UTI (Acute) Acute kidney injury superimposed on CKD (Acute) Fall (Acute) Ambulatory dysfunction (Acute) Lives in fdc (Acute) Deficit in activities of daily living (ADL) (Acute) Closed fracture of distal end of radius (Acute) Palliative care patient (Acute) ACP (advance care planning) (Acute) Closed fracture of left distal radius (Acute) Closed fracture of right distal radius (Acute) Heart murmur (Acute) Depression (Chronic) At high risk for skin breakdown (Acute) Periorbital edema (Acute) Hiatal hernia (Chronic) moderate Coronary artery calcification seen on CAT scan (Acute) Diverticula of colon (Acute) DJD (degenerative joint disease), lumbar (Acute) History of CVA (cerebrovascular accident) (Acute) remote Fracture of both wrists (Acute) Goiter (Acute) Fibromyalgia (Chronic) KWAME (obstructive sleep apnea) (Chronic) Chronic pain (Chronic) Movement disorder (Acute) Chronic renal insufficiency, stage III (moderate) (Acute) Anemia (Chronic) Hypertension (Chronic) Medical History Primary osteoarthritis of left knee We will see the patient back in 4-1/2 months for possible repeat Synvisc 1 in her left knee would consider x-ray in her right knee if she is still significantly symptomatic Osteoarthritis of right knee Steroid injection: 04/05/2020 Has had previous viscosupplementation injections. 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) As treatment for a femoral neck fracture (DOI: 09/16/2020) History of back surgery Hx of cholecystectomy Social History Smoking/Tobacco Use Status: Never Smoking risk assessment performed?: Yes Alcohol Intake: never Drug use: Never Substance use type: does not use Housing: house Do you feel safe at home: Yes Do you feel safe in your relationship?: Yes Additional Social history: lives alone, has caregiver that come 7 days a week, do all the meds
[2024-08-18 12:31] LABS: Abs Immature Grans 0.04 10^3/uL (0.0-0.06); Absolute Basophil Count 0.03 10^3/uL (0.0-0.2); Absolute Eosinophil Count 0.02 10^3/uL (0.0-0.7); Absolute Lymphocyte Count 0.74 10^3/uL (1.2-3.4); Absolute Neutrophil Count 8.64 10^3/uL (1.2-6.7); Basophils % 0.3 %; Eosinophils % 0.2 %; HCT 33.6 % (36.0-46.0); HGB 10.8 g/dL (11.2-15.7); Immature Grans % 0.4 %; Lymphocytes % 7.2 %; MCH 27.5 pg (27.0-33.0); MCHC 32.1 % (32.0-36.0); MCV 86 fL (80-95); MPV 10.1 fL (8.0-11.0); Monocytes % 7.8 %; Neutrophils % 84.1 %; Platelet Count 311 10^3/uL (130-400); RBC 3.93 10^6/uL (3.93-5.22); RDW 14.7 % (11.7-14.6); RDW-SD 46.1 fL; WBC 10.27 10^3/uL (4.4-10.8)
[2024-08-18] MEDS: ACETAMINOPHEN 1,000 MG/100 ML BAG 400 MG IVPB (12:33)
[2024-08-18 12:51] LABS: ALT 57 U/L (14-59); AST 57 U/L (15-37); Albumin 3.2 g/dL (3.4-5.0); Alkaline Phosphatase 77 U/L (46-116); Anion Gap 9.8 mmol/L (3-11); BUN 32 mg/dL (7-18); Bilirubin, Total 0.43 mg/dL (0.2-1.0); CO2 27.2 mmol/L (21.0-32.0); Calcium 10.1 mg/dL (8.5-10.1); Chloride 107 mmol/L (98-107); Creatine Kinase 615 U/L (26-192); Estimated GFR 58.75 (mL/min/1.73m2); Glucose 95 mg/dL (74-106); Potassium 4.1 mmol/L (3.5-5.1); Sodium 144 mmol/L (136-145); Troponin I 28 ng/L (<or=51)
[2024-08-18] MEDS: Omnipaque 350 MG/ML 100 ML BTL IJ (13:20)
[2024-08-18] MEDS: Normal Saline - Diluent 50 ML VIAL IJ (13:21)
--- NOTE | 2024-08-18 14:23 | DI.RAD_ITS ---
Exam(s) XR WRIST RT COMPLETE EXAM: XR WRIST RT COMPLETE CLINICAL HISTORY: fall, pain. TECHNIQUE: 2D digital imaging was performed. Three views. COMPARISON: CR XR WRIST LT LIMITED from 05/08/2024 CR XR WRIST RT LIMITED from 05/08/2024 FINDINGS: Exam is limited by overlying clothing. BONES: No acute fracture is present. Previously existing hardware. Old distal radial fracture has he aled. No bony destructive lesion is seen. JOINTS: The carpal bones are normally aligned. Degenerative changes at the scaphoid trapezium trape zoid joint as well as 1st carpometacarpal joint. SOFT TISSUE: Swelling around distal radius. IMPRESSION: Degenerative changes soft tissue swelling. No acute fracture. DATA REPOSITORY: RADIATION DOSE DELIVERED:
--- NOTE | 2024-08-18 14:23 | DI.RAD_ITS ---
Exam(s) XR KNEE LT 3V AP,LAT,SAVANAH EXAM: XR KNEE LT 3V AP,LAT,SAVANAH CLINICAL HISTORY: fall, pain lateral aspect. TECHNIQUE: 2D digital imaging was performed. Three views. COMPARISON: CR XR KNEE LT 3V AP,LAT,SAVANAH from 04/05/2020 FINDINGS: BONES: No acute fracture is present. No bony destructive lesion is seen. Spurring at the articular aspect of the patella. The femoral tibial joint spaces are maintained. JOINTS: The knee is normally aligned. No joint effusion is seen. SOFT TISSUE: Normal. IMPRESSION: No acute abnormality. DATA REPOSITORY: RADIATION DOSE DELIVERED:
--- NOTE | 2024-08-18 14:23 | DI.RAD_ITS ---
Exam(s) XR SHOULDER RT COMPLETE 2+V EXAM: XR SHOULDER RT COMPLETE 2+V CLINICAL HISTORY: fall, pain, decreased ROM. TECHNIQUE: 2D digital imaging was performed. Five views. COMPARISON: CR XR SHOULDER LT COMPLETE 2+V from 07/20/2023 FINDINGS: BONES: No acute fracture is present. No bony destructive lesion is seen. There is a metallic anchor in the humeral head. JOINTS: No dislocation present. Degenerative changes are present at the AC joint and glenohumeral roger int. SOFT TISSUE: Swelling around humeral head. IMPRESSION: No acute abnormality. DATA REPOSITORY: RADIATION DOSE DELIVERED:
--- NOTE | 2024-08-18 14:23 | DI.RAD_ITS ---
Exam(s) XR ELBOW RT COMPLETE EXAM: XR ELBOW RT COMPLETE CLINICAL HISTORY: fall, pain. TECHNIQUE: 2D digital imaging was performed. Three views. COMPARISON: CR,XR XR ELBOW LT COMPLETE from 09/18/2020 FINDINGS: Exam limited by positioning due to reduced mobility. BONES: No acute fracture is present. No bony destructive lesion is seen. Spurring at the olecranon. JOINTS: The elbow is normally aligned. No joint effusion is seen. SOFT TISSUE: Smoothly marginated bony density at the lateral epicondyle IMPRESSION: No acute abnormality. DATA REPOSITORY: RADIATION DOSE DELIVERED:
[2024-08-18] MEDS: Lactated Ringers 1,000 ML 1000 ML IV (14:32)
[2024-08-18 16:43] LABS: Bilirubin Negative (Negative); Blood Trace-intact (Negative); Clarity Clear (Clear); Glucose Negative (Negative); Ketones Negative (Negative); Leukocyte Esterase Negative (Negative); Nitrite Positive (Negative); Urobilinogen 0.2 mg/dL (Up to 0.2); pH 5.5 (5-8)
[2024-08-18 16:55] LABS: Bacteria Many HPF (Negative); C & S Indicated? No; Casts 10-20 Hyaline LPF (Negative); Crystals Negative HPF (Negative); Epithelial Cells Rare HPF (Negative); Mucus Negative (Negative); Other Cells Rare Transitional (Negative); RBC 0-2 HPF (0-2)
--- NOTE | 2024-08-18 17:25 | HPE_ITS ---
Date of service: 08/18/24 Time of Service: 17:25 Assessment and Plan Assessment and plan (1) Acute UTI: Status: Acute Assessment and plan: S/p fall at home with reported nausea vomiting - not meeting sepsis criteria. On multiple home Rx that can affect AMS and fall risk UA positive on ceftriaxone Urine Cx pending (2) AMS (altered mental status): Status: Acute Assessment and plan: CT negative for bleed but MRI recommended by [facility] d/t increased calcification in basal ganglia most likley not the cause of the fall in the setting of now Dx UTI S/p discussion with ED provider VBG ordered- on CPAP at home VBG reordered as result were not available at 20:50 (3) Fall: Status: Acute Assessment and plan: Not acute fractures as per imaging [facility] neuro recommended MRI w/o in AM Fall precautions PT consult (4) Pneumonia: Assessment and plan: As per CT imaging - not septic Azithromycin 500 mg IV ordered in the ED will give 250 mg on subsequent days starting on 08/19/24 Already on ceftriaxone for UTI (5) Rhabdomyolysis: Status: Acute Assessment and plan: CPK at 600 close to 500 Will continue IVF EF around 60% CPK in AM (6) Dehydration: Status: Acute Assessment and plan: BUN 32 baseline 20's Cr 1.0 at baseline not in AROLDO. Still decreased LOC , protect airways but most unlikely to have enough oral intake Will hold sedative drugs Will continue IV hydration BMP in AM Dicussed with Dr. Mckoy History of Present Illness History of Present Illness Chief Complaint: Fall Narrative: This 73 years old female patient with past medical history of CVA, KWAME, CKD, anemia, hypertension presented to the ED status post fall via EMS after being found on the floor by her home health care provider without obvious etiology for fall. The patient complained of pain to her right shoulder and left knee and generalized body ache to neck, back, right side of the chest and right pain. Workup in the ED was positive for nitrate in urine, BUN of 32 with a creatinine of 1.0, CPK of 615, first troponin negative with an EKG showing no signs of coronary occlusion. Imaging showed small left retroareolar anteriorly to the right upper lobe, right middle lobe infiltrate, dilated bilateral biliary tree with prior cholecystectomy possible cystic neoplasm with recommendation for pancreatic protocol MRI.Head CT only showed acute finding of increased bilateral basal ganglia calcification which is status post consultation with [facility] neurology is unlikely to be related to fall but do recommend MRI in the morning. The patient will be admitted to the medical surgical floor by the hospitalist team for evaluation and management of UTI, pneumonia, rhabdo. ED provider will add VBG to blood work. When met in the ED the patient declined CPR and intubation. COLST form from April 2024 stating full code with intubation only for CPR this is what will be ordered due to the patient mental status at this time. The patient was sleepy but arousable and oriented to self, thought she was in assisted due to fraud, did not know the date. The patient will follow some commands but would refuse to turn by saying no. Reported positive dizziness, fevers, nausea, vomiting, dysuria and generalized aches. Denied chest pain. Review of Systems All systems reviewed & are unremarkable except as noted in HPI and below PFSH All Active Problems (Updated 08/18/24 @ 20:51 by Enid Bonner APRN) AMS (altered mental status) (Acute) Dehydration (Acute) Rhabdomyolysis (Acute) Acute UTI (Acute) Acute kidney injury superimposed on CKD (Acute) Fall (Acute) Ambulatory dysfunction (Acute) Lives in alf (Acute) Deficit in activities of daily living (ADL) (Acute) Closed fracture of distal end of radius (Acute) Palliative care patient (Acute) ACP (advance care planning) (Acute) Closed fracture of left distal radius (Acute) Closed fracture of right distal radius (Acute) Heart murmur (Acute) Depression (Chronic) At high risk for skin breakdown (Acute) Periorbital edema (Acute) Hiatal hernia (Chronic) moderate Coronary artery calcification seen on CAT scan (Acute) Diverticula of colon (Acute) DJD (degenerative joint disease), lumbar (Acute) History of CVA (cerebrovascular accident) (Acute) remote Fracture of both wrists (Acute) Goiter (Acute) Fibromyalgia (Chronic) KWAME (obstructive sleep apnea) (Chronic) Chronic pain (Chronic) Movement disorder (Acute) Chronic renal insufficiency, stage III (moderate) (Acute) Anemia (Chronic) Hypertension (Chronic) Medical History Primary osteoarthritis of left knee We will see the patient back in 4-1/2 months for possible repeat Synvisc 1 in her left knee would consider x-ray in her right knee if she is still significantly symptomatic Osteoarthritis of right knee Steroid injection: 04/05/2020 Has had previous viscosupplementation injections. 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) As treatment for a femoral neck fracture (DOI: 09/16/2020) History of back surgery Hx of cholecystectomy Social History Smoking/Tobacco Use Status: Never Smoking risk assessment performed?: Yes Alcohol Intake: never Drug use: Never Substance use type: does not use Housing: apartment Do you feel safe at home: Yes Do you feel safe in your relationship?: Yes Additional Social history: lives alone, has caregiver that come 7 days a week, do all the meds Meds Allergies and Home Medications Allergies Allergy/AdvReac Type Severity Reaction Status Date / Time sulfamethoxazole (From Allergy Diarrhea Verified 08/18/24 12:04 Bactrim) trimethoprim (From Bactrim) Allergy Diarrhea Verified 08/18/24 12:04 morphine AdvReac Intermediate Psychosis Unverified 08/18/24 12:04 baclofen AdvReac Unknown Unknown Unverified 08/18/24 12:04 chlorthalidone AdvReac Unknown Unknown Unverified 08/18/24 12:04 codeine AdvReac Unknown Unknown Unverified 08/18/24 12:04 dextromethorphan AdvReac Unknown Unknown Unverified 08/18/24 12:04 gabapentin (From Neurontin) AdvReac Unknown Unknown Unverified 08/18/24 12:04 hydrochlorothiazide AdvReac Unknown Unknown Unverified 08/18/24 12:04 pregabalin AdvReac Unknown Dopey Unverified 08/18/24 12:04 Home Medications ?Medication ?Instructions ?Recorded ?Confirmed ?Type omeprazole 40 mg capsule,delayed 40 mg PO DAILY 05/19/14 08/18/24 History release polyethylene glycol 3350 17 17 g PO DAILY PRN PRN 05/19/14 08/18/24 History gram/dose oral powder (Miralax) cholecalciferol (vitamin D3) 25 50 mcg PO DAILY 01/05/20 08/18/24 History mcg (1,000 unit) tablet (Vitamin D3) vitamin B complex 1 tab PO DAILY 01/05/20 08/18/24 History sertraline 50 mg tablet 75 mg PO DAILY 10/19/20 08/18/24 History trazodone 100 mg tablet 200 mg PO HS PRN PRN 01/03/21 08/18/24 History aspirin 81 mg tablet,delayed 81 mg PO DAILY 06/23/21 08/18/24 History release meloxicam 15 mg tablet 15 mg PO DAILY 08/08/21 08/18/24 History amlodipine 10 mg tablet 10 mg PO DAILY 01/14/22 08/18/24 History sennosides 8.6 mg tablet (senna) 8.6 mg PO QPM 01/14/22 08/18/24 History topiramate 25 mg tablet (Topamax) 25 mg PO DAILY 08/06/22 08/18/24 History naloxone 4 mg/actuation nasal spray 4 mg intranasal ONCE PRN 07/16/23 08/18/24 History sertraline 25 mg tablet 25 mg PO DAILY 04/23/24 08/18/24 History lorazepam 1 mg tablet (Ativan) 1 mg PO DAILY PRN #10 tabs 04/24/24 08/18/24 Rx oxycodone 10 mg tablet 10 mg PO Q4H PRN PRN #10 tabs 04/24/24 08/18/24 Rx oxycodone 20 mg tablet,crush 20 mg PO BID #10 tabs 04/24/24 08/18/24 Rx resistant,extended release 12 hr (OxyContin) magnesium oxide 500 mg capsule 500 mg PO BID 05/06/24 08/18/24 History cannabidiol (CBD) oral edible 1 tab PO PRN PRN 08/18/24 08/18/24 History nitrofurantoin 100 mg PO DAILY 08/18/24 08/18/24 History monohydrate/macrocrystals 100 mg capsule ondansetron HCl 4 mg tablet 4 mg PO BID 08/18/24 08/18/24 History risperidone 1 mg tablet 1 mg PO .Bedtime 08/18/24 08/18/24 History Exam Narrative Exam Narrative: Ill appearing female 73 y.o female patient looking of stated age, appears cachectic, sleepy and arousable to deep tactile stimuli,oriented to self, GCS 11, nonfocal, nonicteric dry sclera, PERRLA 3 sluggish on ambient light, S1-S2 regular, positive radial and pedal pulses, clear lungs with decreased bases, abdomen is nonacute and nontender, bowel follow-up present, no CVA tenderness, dry oral mucous membranes, moves all 4 extremities, minimal abrasion to right trochanter area Results Labs 08/18/24 12:20 08/18/24 12:20 Labs: Laboratory Results - last 24 hr 08/18/24 08/18/24 12:20 16:25 WBC 10.27 RBC 3.93 Hgb 10.8 L Hct 33.6 L MCV 86 MCH 27.5 MCHC 32.1 RDW 14.7 H Plt Count 311 MPV 10.1 Immature Gran % 0.4 Neutrophils % 84.1 Lymphocytes % 7.2 Monocytes % 7.8 Eosinophils % 0.2 Basophils % 0.3 Nucleated RBC % 0.0 Absolute Neutrophils 8.64 H Absolute Lymphocytes 0.74 L Absolute Monocytes 0.80 Absolute Eosinophils 0.02 Absolute Basophils 0.03 Sodium 144 Potassium 4.1 Chloride 107 Carbon Dioxide 27.2 Anion Gap 9.8 BUN 32 H Creatinine 1.0 Est GFR (CKD-EPI 2020) 58.75 Glucose 95 Calcium 10.1 Magnesium 2.0 Total Bilirubin 0.43 AST 57 H ALT 57 Alkaline Phosphatase 77 Creatine Kinase 615 H Troponin I 28 Total Protein 9.0 H Albumin 3.2 L Urine Color Yellow Urine Clarity Clear Urine pH 5.5 Ur Specific [place] 1.020 Urine Protein Trace Urine Ketones Negative Urine Blood Trace-intact H Urine Nitrite Positive H Urine Bilirubin Negative Urine Urobilinogen 0.2 Ur Leukocyte Esterase Negative Urine RBC 0-2 Urine WBC 5-10 Ur Epithelial Cells Rare Urine Crystals Negative Urine Bacteria Many Urine Casts 10-20 Hyaline Urine Mucus Negative Urine Other Rare Transitional Ur Culture Indicated? No Urine Glucose Negative Last Vital Signs Temp 36.1 C L 08/18/24 11:51 Pulse 90 08/18/24 11:51 Resp 18 08/18/24 11:51 BP 142/80 H 08/18/24 11:51 Pulse Ox 94 08/18/24 11:51 Time Spent Time spent with Patient: >75 minutes Time was spent: preparing to see the patient(eg.review tests), obtaining and/or reviewing separately otained hiistory, ordering medications,tests, procedures, referring, communicating with other health patient care provider, indepentently interpreting results, counseling the patient and care coordination
[2024-08-18] MEDS: cefTRIAXone 1 GM/50 ML BAG IVPB (18:35)
[2024-08-18] MEDS: Enoxaparin 40 MG/0.4 ML SYR SC (20:26)
[2024-08-18] MEDS: Normal Saline Flush 10 ML SYR IVP (20:26)
[2024-08-18] MEDS: Senna TAB 1 TAB PO (20:27)
[2024-08-18] MEDS: Lactated Ringers 1,000 ML 100 ML IV (21:16)
[2024-08-18] MEDS: AZITHROMYCIN 250 MG in Normal Saline 250 ML IVPB (21:17)
[2024-08-18 21:21] LABS: BE (Venous) 2 mmol/L (-2-3); HCO3 (Venous) 27 mmol/L (23-28); O2 Sat (Venous) 82 %; TCO2 (Venous) 25 mmol/L (24-29); pCO2 (Venous) 43 mmHg (41-51); pH (Venous) 7.41 (7.31-7.41); pO2 (Venous) 46 mmHg
[2024-08-18 22:11] LABS: Troponin I 32 ng/L (<or=51)
[2024-08-18] MEDS: Water,Injection,Sterile 10 ML VIAL (22:24)
[2024-08-19 03:31] VITALS: BP 150/82; PULSE 65; RESP 16; TEMP 37; O2SAT 97
[2024-08-19 07:14] LABS: Abs Immature Grans 0.02 10^3/uL (0.0-0.06); Absolute Basophil Count 0.02 10^3/uL (0.0-0.2); Absolute Eosinophil Count 0.11 10^3/uL (0.0-0.7); Absolute Lymphocyte Count 0.81 10^3/uL (1.2-3.4); Absolute Monocyte Count 0.57 10^3/uL (0.1-0.8); Basophils % 0.4 %; Eosinophils % 2.1 %; HCT 28.9 % (36.0-46.0); Immature Grans % 0.4 %; Lymphocytes % 15.5 %; MCH 26.7 pg (27.0-33.0); MCHC 31.1 % (32.0-36.0); MCV 86 fL (80-95); MPV 10.3 fL (8.0-11.0); Monocytes % 10.9 %; Neutrophils % 70.7 %; Platelet Count 272 10^3/uL (130-400); RBC 3.37 10^6/uL (3.93-5.22); RDW 14.8 % (11.7-14.6); RDW-SD 46.5 fL; WBC 5.23 10^3/uL (4.4-10.8)
[2024-08-19 07:29] LABS: INR 1.1 (0.9-1.1); Prothrombin Time 11.1 sec (9.1-11.1)
[2024-08-19 07:34] LABS: Anion Gap 8.5 mmol/L (3-11); BUN 26 mg/dL (7-18); CO2 27.5 mmol/L (21.0-32.0); Calcium 9.4 mg/dL (8.5-10.1); Chloride 110 mmol/L (98-107); Creatine Kinase 316 U/L (26-192); Estimated GFR 58.75 (mL/min/1.73m2); Glucose 82 mg/dL (74-106); Magnesium 1.8 mg/dL (1.8-2.4); Potassium 3.9 mmol/L (3.5-5.1); Sodium 146 mmol/L (136-145)
[2024-08-19] MEDS: Lactated Ringers 1,000 ML 100 ML IV (07:47)
[2024-08-19 07:55] VITALS: BP 135/85; PULSE 71; RESP 14; TEMP 36.7; O2SAT 98
[2024-08-19 08:31] VITALS: O2SAT 94
[2024-08-19] MEDS: Aspirin E.C. 81 MG TABEC PO (09:03)
[2024-08-19] MEDS: Pantoprazole 40 MG TABCR PO (09:03)
[2024-08-19] MEDS: Sertraline 25 MG TAB 75 MG PO (09:03)
[2024-08-19] MEDS: amLODIPine 10 MG TAB PO (09:03)
[2024-08-19] MEDS: Normal Saline Flush 10 ML SYR IVP ×6 (09:04→21:29)
--- NOTE | 2024-08-19 09:51 | PDOC.CMIN ---
Date of service: 08/19/24 Time of Service: 09:51 Care Management Initial Assmt Initial Assessment Reason for Hospitalization: Pneumonia, UTI, rhabdo Functional Status/Living Situation Patient Presentation: Tegan was lying in bed visiting with her son Amor when CM met with her. Her affect was flat and she had a delayed response to most questions. Tegan was admitted with a UTI and altered mental status. Since admission she has been afebrile and her vital signs are stable. Tegan lives alone in a single family home in [place]. She has 2 children, a son Amor and a daughter Renetta, who both live in [place] and are supportive. Tegan has [facility] highest needs and has caregivers for a few hours a day. She stated she is able to ambulate with a walker with help and also uses a wheelchair. Tegan requires assistance with ADLs and IADLs. 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) Instrumental Activities of Daily Living (ADLs): Requires support (Tegan has caregivers for several hours a day who assist with ALS and IADLs) Medications Medication Management: No Issues/Barriers identified Physical Functioning/Mobility Assistive Device: walker, w/c Advance Directives Advance Directives: Do you have an Advance Directive: Y 11/06/12 18:01 AD On File at [facility]: Y 09/16/20 21:57 Date Asked 09/16/20 08/19/24 09:20 AD Date Reviewed 08/18/24 08/19/24 09:20 COLST On File at [facility] Yes 08/19/24 09:20 COLST Date Scanned 05/06/24 08/19/24 09:20 Code Status Resuscitation Status Full Code Portal Pt does not currently have a portal and education provided: Yes Insurance Coverage/Financial Issues Insurance: Medicare LT Medicaid Care Team Visit Care Team Role Provider Type Marixa Kurtz Primary Care Provider NON-[facility] STAFF PHYSICIAN InPatient [facility] Other Providers OTHER Mariella Soliman MD Emergency Provider [facility] STAFF PHYSICIAN Oscar Mckoy Admit Provider [facility] STAFF PHYSICIAN Attending Provider Discharge Potential Discharge Needs: PCP F/U Appt Anticipated Barriers to Discharge: None Identified Patient/Family Education Needs: Review discharge instructions, discuss Ask Me Three Transportation: Private vehicle Plan: Tegan will likely be discharged home with a resumption of caregiver services when medically cleared. She will follow up with her community providers and plan of care and transport with family. CM will follow and continue to support discharge needs. Social Determinants of Health Screening Will the Patient Participate in the Screening?: Declined to provide PFSH All Active Problems (Updated 08/18/24 @ 20:51 by Enid Bonner APRN) AMS (altered mental status) (Acute) Dehydration (Acute) Rhabdomyolysis (Acute) Acute UTI (Acute) Acute kidney injury superimposed on CKD (Acute) Fall (Acute) Ambulatory dysfunction (Acute) Lives in skilled nursing (Acute) Deficit in activities of daily living (ADL) (Acute) Closed fracture of distal end of radius (Acute) Palliative care patient (Acute) ACP (advance care planning) (Acute) Closed fracture of left distal radius (Acute) Closed fracture of right distal radius (Acute) Heart murmur (Acute) Depression (Chronic) At high risk for skin breakdown (Acute) Periorbital edema (Acute) Hiatal hernia (Chronic) moderate Coronary artery calcification seen on CAT scan (Acute) Diverticula of colon (Acute) DJD (degenerative joint disease), lumbar (Acute) History of CVA (cerebrovascular accident) (Acute) remote Fracture of both wrists (Acute) Goiter (Acute) Fibromyalgia (Chronic) KWAME (obstructive sleep apnea) (Chronic) Chronic pain (Chronic) Movement disorder (Acute) Chronic renal insufficiency, stage III (moderate) (Acute) Anemia (Chronic) Hypertension (Chronic) Medical History Primary osteoarthritis of left knee We will see the patient back in 4-1/2 months for possible repeat Synvisc 1 in her left knee would consider x-ray in her right knee if she is still significantly symptomatic Osteoarthritis of right knee Steroid injection: 04/05/2020 Has had previous viscosupplementation injections. 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) As treatment for a femoral neck fracture (DOI: 09/16/2020) History of back surgery Hx of cholecystectomy Social History Smoking/Tobacco Use Status: Never Smoking risk assessment performed?: Yes Alcohol Intake: never Drug use: Never Substance use type: does not use Housing: apartment Do you feel safe at home: Yes Do you feel safe in your relationship?: Yes Additional Social history: lives alone, has caregiver that come 7 days a week, do all the meds
--- NOTE | 2024-08-19 11:13 | PGE_ITS ---
Date of Service Date of service: 08/19/24 Time of Service: 11:13 Assessment and Plan Assessment and plan (1) Acute UTI: Status: Acute Assessment and plan: S/p fall at home with reported nausea vomiting - not meeting sepsis criteria. On multiple home Rx that can Affect AMS and fall risk UA positive continue ceftriaxone Urine Cx pending (2) AMS (altered mental status): Status: Acute Assessment and plan: CT negative for bleed but MRI recommended by [facility] d/t increased calcification in basal ganglia most likley not the cause of the fall in the setting of now Dx UTI Clearer sensorium Refused MRI despite premedication with lorazepam VBG was normal Spoke to Dr. Kang from [facility] neurovascular- spine surgery : No recommendation for interventions hyperdensity consistent to calcification and d/t age - later made aware that MRI refused - (3) Fall: Status: Acute Assessment and plan: Not acute fractures on diverse imaging studies [facility] neuro recommended MRI which was refused maintain Fall precautions Ongoing PT consult (4) Pneumonia: Assessment and plan: As per CT imaging - not septic on admission Continue Azithromycin Already on ceftriaxone for UTI as of 08/18 (5) Rhabdomyolysis: Status: Acute Assessment and plan: CPK > 600 on admission now in the 300's no further monitoring Encourage oral fluid intake but has poor intake - will start remeron at HS Stop IVF (6) Dehydration: Status: Acute Assessment and plan: Improve BUN Cr 1.0 at baseline , improved LOC gradually resume home meds with sedative effect encourage oral intake BMP in AM Dicussed with Dr. Mckoy Subjective Subjective Patient reports: pain is less, tolerating liquids well (decreased oral intake ), tolerating a regular diet, voiding w/o difficulty, bowel movement and nausea; denies vomiting, shortness of breath or fever Exam Narrative Exam Narrative: 73 y.o female patient looking of stated age, alert & oriented X2 but remembered and could repeat date after 5 minutes GCS 15, nonfocal, nonicteric sclera, PERRLA on ambient light, S1-S2 regular, positive radial and pedal pulses, right basilar coarse breath sounds , abdomen is nonacute and nontender, bowel follow-up present, no CVA tenderness, moves all 4 extremities Objective Last Vital Signs Temp 36.7 C 08/19/24 07:55 Pulse 71 08/19/24 07:55 Resp 14 08/19/24 07:55 BP 135/85 08/19/24 07:55 Pulse Ox 94 08/19/24 08:31 Laboratory Results - last 24 hr 08/18/24 08/18/24 08/18/24 12:20 14:59 16:25 WBC 10.27 RBC 3.93 Hgb 10.8 L Hct 33.6 L MCV 86 MCH 27.5 MCHC 32.1 RDW 14.7 H Plt Count 311 MPV 10.1 Immature Gran % 0.4 Neutrophils % 84.1 Lymphocytes % 7.2 Monocytes % 7.8 Eosinophils % 0.2 Basophils % 0.3 Nucleated RBC % 0.0 Absolute Neutrophils 8.64 H Absolute Lymphocytes 0.74 L Absolute Monocytes 0.80 Absolute Eosinophils 0.02 Absolute Basophils 0.03 PT INR VBG pH VBG pCO2 VBG pO2 VBG HCO3 VBG Total CO2 VBG O2 Saturation VBG Base Excess Sodium 144 Potassium 4.1 Chloride 107 Carbon Dioxide 27.2 Anion Gap 9.8 BUN 32 H Creatinine 1.0 Est GFR (CKD-EPI 2020) 58.75 Glucose 95 Calcium 10.1 Magnesium 2.0 Total Bilirubin 0.43 AST 57 H ALT 57 Alkaline Phosphatase 77 Creatine Kinase 615 H Troponin I 28 Cancelled Total Protein 9.0 H Albumin 3.2 L Urine Color Yellow Urine Clarity Clear Urine pH 5.5 Ur Specific [place] 1.020 Urine Protein Trace Urine Ketones Negative Urine Blood Trace-intact H Urine Nitrite Positive H Urine Bilirubin Negative Urine Urobilinogen 0.2 Ur Leukocyte Esterase Negative Urine RBC 0-2 Urine WBC 5-10 Ur Epithelial Cells Rare Urine Crystals Negative Urine Bacteria Many Urine Casts 10-20 Hyaline Urine Mucus Negative Urine Other Rare Transitional Ur Culture Indicated? No Urine Glucose Negative 08/18/24 08/18/24 08/19/24 17:18 21:10 06:15 WBC 5.23 RBC 3.37 L Hgb 9.0 L Hct 28.9 L MCV 86 MCH 26.7 L MCHC 31.1 L RDW 14.8 H Plt Count 272 MPV 10.3 Immature Gran % 0.4 Neutrophils % 70.7 Lymphocytes % 15.5 Monocytes % 10.9 Eosinophils % 2.1 Basophils % 0.4 Nucleated RBC % 0.0 Absolute Neutrophils 3.70 Absolute Lymphocytes 0.81 L Absolute Monocytes 0.57 Absolute Eosinophils 0.11 Absolute Basophils 0.02 PT 11.1 INR 1.1 VBG pH Cancelled 7.41 VBG pCO2 Cancelled 43 VBG pO2 Cancelled 46 VBG HCO3 Cancelled 27 VBG Total CO2 Cancelled 25 VBG O2 Saturation Cancelled 82 VBG Base Excess Cancelled 2 Sodium 146 H Potassium 3.9 Chloride 110 H Carbon Dioxide 27.5 Anion Gap 8.5 BUN 26 H Creatinine 1.0 Est GFR (CKD-EPI 2020) 58.75 Glucose 82 Calcium 9.4 Magnesium 1.8 Total Bilirubin AST ALT Alkaline Phosphatase Creatine Kinase 316 H Troponin I 32 Total Protein Albumin Urine Color Urine Clarity Urine pH Ur Specific [place] Urine Protein Urine Ketones Urine Blood Urine Nitrite Urine Bilirubin Urine Urobilinogen Ur Leukocyte Esterase Urine RBC Urine WBC Ur Epithelial Cells Urine Crystals Urine Bacteria Urine Casts Urine Mucus Urine Other Ur Culture Indicated? Urine Glucose Time Spent with Patient Time Spent with Patient: >50 minutes Time was spent: preparing to see the patient(eg.review tests), obtaining and/or reviewing separately otained hiistory, ordering medications,tests, procedures, referring, communicating with other health critical care clinical nurse specialist, indepentently interpreting results, counseling the patient and care coordination
[2024-08-19 11:37] VITALS: BP 127/72; PULSE 75; RESP 15; TEMP 36.9; O2SAT 94
[2024-08-19] MEDS: LORazepam 2 MG/ML VIAL 1 MG IVP (11:44)
--- NOTE | 2024-08-19 12:14 | SP_ITS ---
Date of service: 08/19/24 Time of Service: 12:14 Subjective Clinical (Bedside) Swallow Evaluation - Inpatient Speech Language Pathology Referred by: Enid Bonner Start time: 12:15 End time: 12:50 Total patient contact: 35min Referral Type: Routine Swallow Consult Precautions: Standard, Fall, Full Code Reason for Referral/HPI: Tegan is a 73 y/ F with a prior history of CVA, fibromyalgia with opioids taken for chronic pain, KWAME, HTN, CKD, who was found by a caregiver after falling at home and brought to [facility], admitted with UTI, altered mental status, R middle lobe infiltrates, dehydration, and rhabdomyolysis. SHOE CEMENTER consulted in setting of R lobe pna and with nursing reporting frequent coughing with food and drink. Current diet orders: Regular solids/Thin Liquids. Of note, she was also hospitalized in April 2024 and SHOE CEMENTER was consulted at that time due to nursing observation of patient coughing with thin liquids. At that time she was evaluated and found with some delayed swallow initiation and occasional coughing, but this was improved with cueing for safe swallow strategies and diet modification (soft/bite size). SHOE CEMENTER IMPRESSIONS & RECOMMENDATIONS: Patient presents this date with mild reduced and delayed pharyngeal swallow to palpation. She also struggles with posterior oral transit of regular (especially dry/tough) solids and benefits from additional moisture and very small bite sizes, paced feeding, to imrove oral transit and reduce oral residue. Patient has a tendency to use sips of liquid to try to facilitate posterior transit which tends to result in s/sx aspiration, as does larger/consecutive sips of liquid. She demonstrated wet voice quality intermittently and benefitted from verbal cues to clear throat. Patient would benefit from feeding assistance and cueing to ensure safe pace, 1 texture at a time, and to monitor for s/sx asp iration especially given she is likely with AMS in setting of infection status. She does appear with some mild decline over swallow function in previous hospitalization. If function does not improve with overall medical status, consider completing MBSS prior to discharge or on an outpatient basis to determine aspiration risk more objectively. Frequent and diligent oral care and aspiration precautions as below will help manage risk of pulmonary compromise. FURTHER INPATIENT SHOE CEMENTER SERVICES: Patient to be followed while on unit Modified Barium Swallow Study to be considered as appropriate DISCHARGE RECOMMENDATIONS: Recommend SHOE CEMENTER services either at SNF or Home Health Recommend MBSS if no improvement with medical treatment. Diet modification is indicated as follows for the purpose of reduced risk of aspiration, reduced risk of choking, reduced oral residue, reduced pharyngeal stasis, [reduced esophageal stasis] [energy conservation] [reduced work of breathing due to pulmonary status][impulsive or unsafe eating behaviors][pain reduction][patient preferences/to increase nutritional intake] Diet Recommendations: ? 6-Soft & Bite-Sized Solids - added sauces/gravies. Ensure meats and veggies are very tender/mashable with fork per IDDSI guidelines. LIQUIDS: 0-Thin Liquids MEDICATIONS: Whole With 4-Purees Alter medications only as advised by MD or Pharmacist RISK MANAGEMENT: Level of Assistance/Supervision: 1:1 Assistive feeding only by trained staff/family Positioning and environment: PO intake only when awake/alert? Reduce auditory and/or visual distractions when eating Up to chair Oral hygiene Before/after PO intake Using friction with toothbrush on all oral structures as tolerated Strategies/Adaptations/Assistive Equipment: Small sips - 1 at a time Small bites Slow rate of intake Cue intermittent throat clear during meals Swallow food before taking a sip. Reflux Precautions: Maintain fully upright position at least 30 minutes after meals Sleep with head of bed elevated to reduce likelihood of nocturnal reflux Education Provided to: Nursing Patient Topics Addressed: definition and impacts of aspiration impact of current diagnoses on swallow function overt s/sx to monitor for re: potential aspiration of food / liquids rationale and instruction for additional risk management strategies as below SUBJECTIVE: Patient received: alert/awake. Agreeable to evaluation. Pain Reported chest Baseline Swallow Function: Patient reports coughing with multiple consistencies at home. She feels this is getting worse. OBJECTIVE Patient positioning: Up to chair/90 degrees Oral care: Strap Making Machine Operator assisting to complete oral care prior to PO trials Respiratory status: Room air, Tolerates well without s/sx dyspnea Orientation/Mental status: Oriented to self, recall of recent events is impaired, confused, follows instructions, Most responses are 1-2 words only in length. Flat affect. Speech: Flat prosody. Speeks in 1-2 word utterances but no other speech disturbances detected. Oral Mechanism Examination: Dentition: Partial natural dentition, Poor condition Oral mucosa: Poor oral care ? Cranial Nerve Assessment: CN V ? Trigeminal Reduced Jaw ROM, but this appears more cognitive, difficulty following instructions, poor sensori-motor awareness CN VII- Facial Reduced labial ROM, strength, coordination. unable to achieve cheek puff task CN IX ? Glossopharyngeal WNL palatal elevation with phonation. No evidence of nasal emissions CN X ? Vagus WNL Vocal quality and volume. Strong/sharp volitional cough CX XII ? Hypoglossal mild reduced lingual ROM, strength, coordination PO Intake: Trials Assessed: IDDSI 0 Thin Liquids (self selected via cup edge, clinician assisted via cup edge) IDDSI 4 Puree Solid IDDSI 6 Soft & Bite Size Solid (cooked carrots, cut by SHOE CEMENTER to appropriate size) IDDSI 7 Regular Solid Oral Phase Findings: X (mild) Anterior leakage from mouth at end of meal after completion, some oral residue X Difficulty with bolus manipulation X Difficulty with a-p transport X Residue Pharyngeal Phase Findings: X Delayed swallow initiation X Reduced hyolaryngeal elevation/excursion X Cough after swallow (improved with pacing and reduced sip size/not mixing textures) X Voice change after swallow? X Throat clearing?(CUED) Esophageal Phase Findings: ?No observed or reported symptoms at bedside ? [place] Swallow Protocol Results: FAIL ? S/sx aspiration observed PLAN: Frequency: 2-3x/week for 1-2 weeks Goals: Oven Roaster Goals: Patient will remain free from aspiration-related illness, malnutrition, and dehydration. Short Term Goals: Patient will tolerate Soft/bite size Diet and Thin liquids without overt s/s aspiration across 2/2 visits. Patient will tolerate PO trials for consideration of diet upgrade without overt s/s aspiration across 2/2 visits. SHOE CEMENTER CPT Code: 07326 Clinical Swallowing Evaluation
[2024-08-19] MEDS: Pantoprazole 40 MG VIAL IVP (12:32)
[2024-08-19] MEDS: Prochlorperazine 10 MG/2 ML VIAL 5 MG IVP (12:33)
[2024-08-19] MEDS: oxyCODONE-CR 20 MG TABCR 40 MG PO ×2 (12:39→21:27)
--- NOTE | 2024-08-19 13:17 | NUR.NOTE ---
Nursing Note: UA Sent to lab for culture at 1317 on 08/19/24
--- NOTE | 2024-08-19 13:17 | OT.INNT ---
Occupational Therapy Notes 08/19/24 OT consult received and pts chart was reviewed. OT attempted to consult with pt and RN notes that pt was given medication and should hold OT consult for today. Irene Hernandez, OTR/L
--- NOTE | 2024-08-19 14:48 | PHA.REVIEW2 ---
Pharmacy Admission Review Admission Clinical Review Admission Pharmacy Review: AMS (altered mental status) (Acute) Dehydration (Acute) Rhabdomyolysis (Acute) Acute UTI (Acute) Fall (Acute) sulfamethoxazole (From Bactrim) Allergy (Verified 08/18/24 12:04) Diarrhea trimethoprim (From Bactrim) Allergy (Verified 08/18/24 12:04) Diarrhea morphine Adverse Reaction (Intermediate, Unverified 08/18/24 12:04) Psychosis baclofen Adverse Reaction (Unknown, Unverified 08/18/24 12:04) Unknown chlorthalidone Adverse Reaction (Unknown, Unverified 08/18/24 12:04) Unknown codeine Adverse Reaction (Unknown, Unverified 08/18/24 12:04) Unknown dextromethorphan Adverse Reaction (Unknown, Unverified 08/18/24 12:04) Unknown gabapentin (From Neurontin) Adverse Reaction (Unknown, Unverified 08/18/24 12:04) Unknown hydrochlorothiazide Adverse Reaction (Unknown, Unverified 08/18/24 12:04) Unknown pregabalin Adverse Reaction (Unknown, Unverified 08/18/24 12:04) Dopey Resuscitation Status Full Code Height 5 ft 5 in Weight 51.9 kg Pharmacy Admission Review Renal Dosing Renal Dosing: BUN 26 mg/dL (7-18) H 08/19/24 06:15 Creatinine 1.0 mg/dL (0.55-1.02) 08/19/24 06:15 Medications needing adjustments: Reviewed (CrCl 39.1 mL/min, BUN decreased from 32) List of meds needing interventions: Current medications are okay Anticoagulation Anticoagulation: Hgb 9.0 g/dL (11.2-15.7) L 08/19/24 06:15 Hct 28.9 % (36.0-46.0) L 08/19/24 06:15 Plt Count 272 10^3/uL (130-400) 08/19/24 06:15 INR 1.1 (0.9-1.1) 08/19/24 06:15 Creatinine 1.0 mg/dL (0.55-1.02) 08/19/24 06:15 DVT Prophylaxis: Reviewed (Hgb decreased from 10.8) Medications: Enoxaparin (40mg daily) Opiate Usage Evaluate Pain Scale/Pains Meds: Reviewed (Oxycontin ER 40mg BID) Scheduled Bowel Reg ordered if on Opiates?: Yes (Senna + PRN Miralax) Relevant Labs Relevant Labs: Sodium 146 mmol/L (136-145) H 08/19/24 06:15 Potassium 3.9 mmol/L (3.5-5.1) 08/19/24 06:15 Chloride 110 mmol/L (98-107) H 08/19/24 06:15 Magnesium 1.8 mg/dL (1.8-2.4) 08/19/24 06:15 Electrolytes, C-Reactive P, ESR: Reviewed Cardiac Review Cardiac Review: Troponin I 32 ng/L (<or=51) 08/18/24 21:10 BP, HR, EF%: Reviewed (BP and HR WNL) List meds needing interventions: Has order for amlodipine 10mg daily QTc Review QTc: Reviewed (453 from 08/18/24) IV to PO Switch IV Medications: Reviewed (azithromycin, ceftriaxone and prohlorperazine) Home Meds Home Med List reviewed: Intervened Relevent Home Meds Not ordered & why?: cannabidiol (PNR), lorazepam (PRN), Narcan (PRN), Macrobid (has order for ceftriaxone and azithromycin), omeprazole (has order for pantoprazole), vitamin B complex Initially did not have orders for Oxycontin or meloxicam (both are on home med list). Spoke with provider who looked into it and put in orders. Updated home med list from Oxycontin 20mg BID to 40mg BID (per patient and fill history) Current Meds Current Medication Order Review: Reviewed Pharmacy Antibiotic Review Relevant Labs: WBC 5.23 10^3/uL (4.4-10.8) 08/19/24 06:15 Temperature 36.9 C Temperature 36.7 C Temperature 37.0 C Pharmacy Antibiotic Activity: C/S review and Reviewed, no change Comments: Patient is on ceftriaxone and azithromycin, day 1, for pneumonia and UTI. Reached out to provider as urine culture was not ordered, provider put in order and cultures are pending.
--- NOTE | 2024-08-19 15:06 | NUR.NOTE ---
Nursing Note: RN Spoke with Renetta regarding update on pt, Renetta concerned regarding dc home, she states she will be able to stay overnight with the pt for the first couple of nights, Renetta would like pt discharged home, due to pts mental health issues and wanting to be isolated she feels that a SNIF would be a last resort as last admission to [facility] was ineffective. Renetta states that she has not been able to have pt evaluated due to inability to find provider and access to provider via zoom for severe depression. Renetta states that patient prefers to be waited on hand and food and does not feel she wants to get better because she does not want to do it independently. Renetta states she would like pt to see palliative care upon discharge. Renetta also states that pt struggles with eating and drinking at home, prefers to eat while laying down, (cause of aspiration pneumonia) regardless of education provided by patient, and that patient has seen a provider outpatient for speech/eating habits and does best by drinking with a straw. LOCO WHITT
[2024-08-19 15:26] VITALS: BP 121/72; PULSE 75; RESP 14; TEMP 37; O2SAT 93
[2024-08-19] MEDS: ACETAMINOPHEN 1,000 MG/100 ML BAG 400 MG IVPB (15:42)
--- NOTE | 2024-08-19 17:02 | PT.INIE ---
PT Notes Visit Reasons: UTI, Rhadbo, Pneumonia Inpatient Physical Therapy Evaluation Date:08/19/2024 Referring Doctor: Mary Anne Stanton PT Orders: PT CONSULT: PT evaluation Precautions: Fall Risk, IV access, Patient Profile/Admitting Diagnosis: Patient is a 73-year-old female presented to the ED via EMS after being found down on the floor by home health nurse. Patient was complaining of right shoulder and left knee pain workup in the ED included head CT negative for acute findings urinalysis positive for UTI. Patient also diagnosed with rhabdomyolysis altered mental status and pneumonia. Patient admitted to MedSurg unit for further medical management PMHX: AMS (altered mental status) (Acute) Dehydration (Acute) Rhabdomyolysis (Acute) Acute UTI (Acute) Acute kidney injury superimposed on CKD (Acute) Fall (Acute) Ambulatory dysfunction (Acute) Lives in alf (Acute) Deficit in activities of daily living (ADL) (Acute) Closed fracture of distal end of radius (Acute) Palliative care patient (Acute) ACP (advance care planning) (Acute) Closed fracture of left distal radius (Acute) Closed fracture of right distal radius (Acute) Heart murmur (Acute) Depression (Chronic) At high risk for skin breakdown (Acute) Periorbital edema (Acute) Hiatal hernia (Chronic) moderate Coronary artery calcification seen on CAT scan (Acute) Diverticula of colon (Acute) DJD (degenerative joint disease), lumbar (Acute) History of CVA (cerebrovascular accident) (Acute) remote Fracture of both wrists (Acute) Goiter (Acute) Fibromyalgia (Chronic) KWAME (obstructive sleep apnea) (Chronic) Chronic pain (Chronic) Movement disorder (Acute) Chronic renal insufficiency, stage III (moderate) (Acute) Anemia (Chronic) Hypertension (Chronic) Medical History Primary osteoarthritis of left knee We will see the patient back in 4-1/2 months for possible repeat Synvisc 1 in her left knee would consider x-ray in her right knee if she is still significantly symptomaticOsteoarthritis of right knee Steroid injection: 04/05/2020 Has had previous viscosupplementation injections.Chronic pain syndrome Left elbow contusion Muscle weakness Tendonitis of left rotator cuff Recurrent UTI (urinary tract infection) Hypomagnesemia Primary osteoarthritis, left shoulder Left rotator cuff tear arthropathy Impacted cerumen of both ears Bilateral sensorineural hearing loss Pneumonia Left displaced femoral neck fracture (09/16/20) Fracture of left hip CVA (cerebral vascular accident) 02/2023 Recurrent UTI IBS (irritable bowel syndrome) Urge incontinence Chronic constipation Chronic insomnia Surgical History S/P cervical spinal fusion C4-7History of total left hip replacement (09/17/20) As treatment for a femoral neck fracture (DOI: 09/16/2020)History of back surgery Hx of cholecystectomy Social History/Home Situation: per ED notes pt lives alone and has HH Nurse ( will clarify PLOF with care management) Equipment Owned/DME: unknown Subjective: Pt did not answer questions regarding her home vocalizing in one word intermittently/spontaneously Objective: [] General Observation: female supine in bed holding RUE still. Mental Status: difficult to arouse , flat affect. Pt speaking in one word responses , COLD PAIN, NO/YES agreeable to participate Pain: pt unable to use scale . Pt vocalized PAIN Vital Signs: monitored via telemetry ROM: Right Upper Extremity: PROM shoulder flexion 95*, shoulder abduction 15* , ER 20 * without abduction, IR to stomach unable to reach behind back, elbow WNL, wrist neutral finger flexion less than 1/2 ROM limited by pain Left Upper Extremity: WNL except wrist Right Lower Extremity: WNL Left Lower Extremity: WNL Strength: Right Upper Extremity: shoulder 2-/5, elbow 3/5 wrist NT d/t pain and unable to make fist d/t pain Left Upper Extremity: 4/5 grossly Right Lower Extremity: >/= to 3/5 Left Lower Extremity: >/= to 3/5 Sensation: intact Bed Mobility/Transfers: supine to sit mod A at trunk toward right side of bed sit to stand Mod A of 1 with PT supporting RUE through transition stand to sit CGA with PT supporting RUE through transition bed to chair with FWW min A Gait: amb with FWW min A 15 feet with w/c follow. decreased step length poor foort clearance difficulty holding FWW with right hand. ( Pt declined platform attachment) Balance: [] Static Sitting: Fair Dynamic Sitting: Poor Static Standing: Fair Dynamic Standing: poor Special Tests: Mobility Limitations Standardized Measure [facility] AM-PAC 6 clicks Basic Mobility Inpatient Short Form: Raw Score: 14 CMS Score: 61.29% Informed Consent/Education: Patient instructed in purpose of PT consult and plan of care. Treatment: 45143: caregiver training for transfers with FWW with min A for RUE placement on FWW and support during sit to from stand transfers. Pt perform 3 transfers from various surfaces with FWW Assessment: Patient is a 73 year old female referred to physical therapy services with the diagnosis of UTI/altered mental status. Patient presents with clinical signs and symptoms consistent with admitting diagnosis, as demonstrated by the following impairment level findings: 1. Decreased strength to BUE/LE major muscle groups 2. Impaired sitting and standing balance 3. Impaired activity tolerance 4. Limitations of range of motion right shoulder wrist and hand Impairments are contributing to the following functional limitations: 1. AMPAC score. 2. Declining bed mobility skills 3. Declining transfer skills 4. Difficulty with ambulation without assistive device and physical assistance 5. Increased time to complete ADL/mobility tasks 6. Increased risk for falls 7. Difficulty with managing stairs alone safely Patient is assessed as a Moderate [id number] complexity based on the following: History: 73-year-old female with past medical history as stated above Examination: Demonstrates impairments in strength, balance, mobility level with underlying impairments and functional limitations as stated above Presentation: Evolving Decision Making: Moderate Goals: Goals X1 week 1. Supine-Sit supervision 2. Sit-Supine supervision 3. Sit-Stand supervision 4. Stand-Sit supervision 5. Bed-Chair supervision with FWW 6. Chair-Bed supervision with FWW 7. Ambulate with FWW greater than 150 feet supervised 8. 4 steps with rail CGA Plan of Care/Treatment Plan: 1-2x/day, 7 days/week x 1 week. Plan of care has been reviewed with the DIRECTOR GLOBAL providing the service under Physical Therapy direction. Initiate Physical Therapy intervention for strengthening, bed mobility, transfers, gait, stairs, balance training, use of assistive device. DISCHARGE RECOMMENDATIONS: [] [] Home with no services [] [] Home with services [specify] [] Home with outpatient PT [] [x] SNF for continued rehabilitation [] [] Alf Care [] [] SNF versus LTC based on ability to participate and progress [] TREATMENT CODE/TIME: 96027/ [id number] second session: [id number]/ [id number]
[2024-08-19] MEDS: cefTRIAXone 1 GM/50 ML BAG IVPB (17:34)
[2024-08-19 20:00] VITALS: BP 126/73; PULSE 72; RESP 16; TEMP 36.7; O2SAT 93
[2024-08-19] MEDS: risperiDONE 1 MG TAB PO (21:28)
[2024-08-19] MEDS: Senna TAB 1 TAB PO (21:28)
[2024-08-19] MEDS: Mirtazapine 15 MG TAB 7.5 MG PO (21:28)
[2024-08-19] MEDS: AZITHROMYCIN 250 MG in Normal Saline 250 ML IVPB (21:29)
[2024-08-20] VITALS (9 sets, daily range): BP systolic 117–182; BP diastolic 67–91; PULSE 64–80; RESP 14–16; TEMP 36.4–37.4; O2SAT 91–98
[2024-08-20] MEDS: ACETAMINOPHEN 1,000 MG/100 ML BAG 400 MG IVPB ×2 (01:22→09:00)
[2024-08-20] MEDS: Pantoprazole 40 MG TABCR PO (06:41)
[2024-08-20] MEDS: amLODIPine 10 MG TAB PO (09:00)
[2024-08-20] MEDS: Meloxicam 15 MG TAB PO (09:00)
[2024-08-20] MEDS: Sertraline 25 MG TAB 75 MG PO (09:00)
[2024-08-20] MEDS: oxyCODONE-CR 20 MG TABCR 40 MG PO ×2 (09:00→20:54)
[2024-08-20] MEDS: Famotidine 20 MG TAB PO (09:00)
[2024-08-20] MEDS: Aspirin E.C. 81 MG TABEC PO (09:00)
--- NOTE | 2024-08-20 09:07 | PDOC.CMPRO ---
Date of service: 08/20/24 Time of Service: 09:07 Care Management Progress Note Progress Note Text Progress Note Text: Tegan was sitting up in bed when CM met with her. She was awake, alert and easily engaged with CM today. She stated that she is feeling better and, according to staff, is improving. Tegan will likely be ready for discharge tomorrow. CM spoke with [facility] to inform them of the impending discharge to enable them to arrange for the resumption of her caregiver services. Tegan had a Palliaticve Care consult today and also met with the electronic calibration technician. Tegan has been working with PT and their recommendation is for home health PT and OT. Tegan stated she would be agreeable to having these services at home. Discharge Potential Discharge Needs: PCP F/U Appt Anticipated Barriers to Discharge: None Identified Patient/Family Education Needs: Review discharge instructions, discuss Ask Me Three Transportation: Private vehicle Plan: Tegan will likely be discharged home with a resumption of caregiver services when medically cleared. She will follow up with her community providers and plan of care and transport with family. CM will follow and continue to support discharge needs. Social Determinants of Health Screening Will the Patient Participate in the Screening?: Declined to provide
[2024-08-20] MEDS: Normal Saline Flush 10 ML SYR IVP ×3 (09:59→20:55)
--- NOTE | 2024-08-20 13:45 | W.PM.PROGNOT ---
Date of Service Date of service: 08/20/24 Time of Service: 13:45 Assessment and Plan Assessment and plan (1) Acute UTI: Status: Acute Assessment and plan: S/p fall at home with reported nausea vomiting - not meeting sepsis criteria. On multiple home Rx that can Affect AMS and fall risk Urine Cx : GNR awaiting for Cx to speciate pathogen D/c levi Continue ceftriaxone Refusing labs (2) AMS (altered mental status): Status: Acute Assessment and plan: CT negative for bleed but MRI recommended by [facility] d/t increased calcification in basal ganglia most likley not the cause of the fall in the setting of now Dx UTI Clearer sensorium MRI refused despite premedication with lorazepam - will not pursue On 08/19/24 as per discussion with to Dr. Kang from [facility] neurovascular- spine surgery : No recommendation for interventions hyperdensity consistent to calcification and d/t age Now Resolved and at baseline (3) Fall: Status: Acute Assessment and plan: Decreased complaints of pain Not acute fractures imaging studies Hx of chronic pain on home meds Fall precautions Ongoing PT : recommendation for SNF but family most likely will want to go home (4) Pneumonia: Assessment and plan: As per CT imaging - not septic on admission Continue Azithromycin and ceftriaxone (5) Rhabdomyolysis: Status: Acute Assessment and plan: Resolved on 08/19/24 CPK > 600 on admission down into the 300's no further monitoring Continue to encourage oral fluid intake but has poor intake - will start remeron at HS No further IVF (6) Dehydration: Status: Acute Assessment and plan: Improve BUN Cr 1.0 at baseline , improved LOC gradually resume home meds with sedative effect encourage oral intake BMP refused (7) Psychiatric symptoms: Status: Acute Assessment and plan: Isolation at home avoiding PCP appointment monosyllabic answers reduced PO intake?speech consulted and we will do a modified barium swallow in the a.m. Hx of severe depression as per family - no records , but on sertraline and trazodone initiated remeron psych consult pending Nutrition consult pending Discussed with Dr. Mckoy Subjective Subjective Patient reports: feels better, pain is less, tolerating liquids well, tolerating a regular diet, voiding w/o difficulty and flatus; denies diarrhea, nausea, vomiting, shortness of breath or fever Exam Narrative Exam Narrative: 73 y.o female patient looking of stated age, alert & oriented X2, of by one day in date, nonfocal, S1-S2 regular, positive radial and pedal pulses,fine right basilar crackles , abdomen is nonacute and nontender, bowel follow-up present, no CVA tenderness, moves all 4 extremities Objective Last Vital Signs Temp 37.1 C 08/20/24 11:08 Pulse 65 08/20/24 11:08 Resp 15 08/20/24 11:08 BP 139/91 H 08/20/24 11:08 Pulse Ox 98 08/20/24 11:08 Time Spent with Patient Time Spent with Patient: >50 minutes Time was spent: preparing to see the patient(eg.review tests), obtaining and/or reviewing separately otained hiistory, ordering medications,tests, procedures, referring, communicating with other health field care manager, indepentently interpreting results, counseling the patient and care coordination
--- NOTE | 2024-08-20 13:48 | DSE_ITS ---
Date of service: 08/23/24 Time of Service: 16:27 DS: Diagnosis Discharge Diagnosis (1) Acute UTI: Status: Acute (2) AMS (altered mental status): Status: Acute (3) Fall: Status: Acute (4) Pneumonia: (5) Rhabdomyolysis: Status: Acute (6) Dehydration: Status: Acute Discharge Plan Disposition Patient Disposition: Home W/Home Health Services Condition: Improving Discharge Details Reason For Visit: UTI, Rhadbo, Pneumonia Admit Date/Time: 08/18/24 17:33 Admit Provider: Oscar Mckoy Attending Provider: Oscar Mckoy Primary Care Provider: Jerardo,[facility] Course Hospital Course: This 73 years old female patient with past medical history of CVA, KWAME, CKD, anemia, hypertension presented to the ED on 08/18/24 status post fall via EMS after being found on the floor by her home health care provider without obvious etiology for fall. The patient complained of pain to her right shoulder and left knee and generalized body ache to neck, back, right side of the chest and right pain. Workup in the ED was positive for nitrate in urine, BUN of 32 with a creatinine of 1.0, CPK of 615, first troponin negative with an EKG showing no signs of coronary occlusion. Imaging showed 1 cm nodular infiltrate to the right upper lobe, right middle lobe infiltrate, dilated bilateral biliary tree with prior cholecystectomy possible cystic neoplasm with recommendation for pancreatic protocol MRI. Head CT only showed acute finding of increased bilateral basal ganglia calcification which is status post consultation with [facility] neurology is unlikely to be related to fall but do recommend MRI in the morning. The patient will be admitted to the medical surgical floor by the hospitalist team for evaluation and management of UTI, pneumonia, rhabdo. The patient initially refused MRI and upon discussion with Dr. Kang from [facility] neurovascular, lesions in the basal ganglia were mostly age-related without any further follow-up needed as the patient had resolved her AMS. The patient continued to be treated with azithromycin and ceftriaxone which was later transitioned to cefepime due to findings of Pseudomonas in her urine. During the stay the patient had a second episode of altered mental status similar to her presentation to the ED. Head CT and MRI showed no acute finding status post tele-neurology consultation with [facility] and Dr. Worthington, recommendations made to complete Keppra loading dose and ongoing Keppra twice a day for most likely seizures and ongoing postictal state. Recommendations for low-dose high-intensity statin and ASA due to past CVA. The patient refused psychiatric evaluation, requesting a different provider. The daughter reported to nursing that the patient had severe depression. Remeron was initiated due to poor oral intake and will need to be adjusted as per primary care practitioner. The patient appears to be at baseline today. The patient will be discharged home with home health physical therapy, nursing, occupational therapy, and medical insurance claims specialist. The patient at ongoing nursing care at home but will need assistance maintaining compliance with her medicine. She will be discharged on daily twice Keppra and short course of levofloxacin. The patient will need follow-up with neurology and her PCP to discuss subsequent studies based on pulmonary and pancreatic findings on imaging mentioned above. Will complete her [facility] pulmonology and endocrinology referrals. Discussed with Dr. Key Home Meds and New Rx's Prescriptions: New levetiracetam 500 mg Tablet 500 mg PO BID Qty: 60 0RF levofloxacin 250 mg Tablet 250 mg PO NOW Qty: 2 0RF Rx Instructions: take on 08/24 and 08/25 mirtazapine 15 mg Tablet 7.5 mg PO HS Qty: 30 0RF atorvastatin 20 mg Tablet 20 mg PO QPM Qty: 30 0RF Continued aspirin 81 mg tablet,delayed release (DR/EC) 81 mg PO DAILY omeprazole 40 MG capsule,delayed release(DR/EC) 40 mg PO DAILY vitamin B complex Tablet 1 tab PO DAILY lorazepam [Ativan] 1 mg tablet 1 mg PO DAILY PRNQty: 10 0RF sennosides [senna] 8.6 mg tablet 8.6 mg PO QPM amlodipine 10 mg tablet 10 mg PO DAILY naloxone 4 mg/actuation spray,non-aerosol 4 mg INTRANASAL ONCE PRN Patient Comments: ADMINISTER 1 SPRAY INTO ONE NOSTRIL A SINGLE DOSE NEEDED FOR EXCESSIVE SEDATION nitrofurantoin monohyd/m-cryst 100 mg capsule 100 mg PO DAILY ondansetron HCl 4 mg tablet 4 mg PO BID PRN (Reason: nausea and vomiting) Patient Comments: TAKE ONE TABLET BY MOUTH TWICE A DAY BEFORE MEALS FOR NAUSEA risperidone 1 mg tablet 1 mg PO .Bedtime Patient Comments: TAKE ONE TABLET BY MOUTH AT BEDTIME cannabidiol (CBD) oral edible 1 tab PO PRN PRN oxycodone [OxyContin] 40 mg tablet,oral only,ext.rel.12 hr 40 mg PO BID folic acid 1 mg tablet 1 mg PO DAILY Discharge Instructions Stand Alone Forms: Nursing Discharge Form Referrals: ENDOCRINOLOGY,[facility] [OTHER] - (Referral 1 week: dilated bilateral biliary tree with prior cholecystectomy possible cystic neoplasm with recommendation for pancreatic protocol MRI. A referral has been faxed ) PULMONOLOGY,[facility] [OTHER] - (Referral 1 to 2-week:Imaging showed 1 cm nodular infiltrate to the right upper lobe---Referal faxed) Marixa Kurtz [Primary Care Provider] - (Follow-up with PCP within 7 days of discharge) Activity:: Activity as Tolerated Equipment/Supplies:: Walker Diet:: Heart healthy Discharge Orders Discharge Orders: Discharge Order (Routine); Ordered 08/23/24 Ordered By: Enid Bonner DS: Summary Time Spent with Patient providing and/or coordinating discharge services: Greater than 30 minutes Status at Discharge Functional status at discharge: uses cane/walker Overall status at discharge: patient is progressing back to baseline Mental Status: mental status grossly normal Speech and Movement: speech and movement normal Mood: congruent mood Affect: normal affect Quality:SDOH Health Related Social Needs: No Data to Display Exam Narrative Exam Narrative: 73 y.o female patient looking of stated age, alert & oriented X2, of by one day in date, nonfocal, S1-S2 regular, positive radial and pedal pulses, lungs with decreased bases, abdomen is nonacute and nontender, bowel follow-up present, no CVA tenderness, moves all 4 extremities Psych Mental Status: mental status grossly normal Speech and Movement: speech and movement normal Mood: congruent mood Affect: normal affect DS: Data Vitals/I&O Vitals and I&O: Vital Signs Temperature 37.1 C 08/20/24 11:08 Temperature Source Temporal Artery Scan 08/20/24 11:08 Pulse 65 08/20/24 11:08 Pulse Rhythm Regular 08/18/24 20:29 Pulse 59 L 08/18/24 18:01 Respiratory Rate 15 08/20/24 11:08 Respiratory Effort Normal 08/18/24 20:29 Respiratory Depth Normal 08/18/24 20:29 Respiratory Pattern Normal 08/18/24 20:29 Blood Pressure 139/91 H 08/20/24 11:08 Blood Pressure Mean 93 08/18/24 18:01 Blood Pressure Position Supine 08/18/24 11:51 Pulse Oximetry 98 08/20/24 11:08 Oxygen Delivery Method Room Air 08/20/24 11:08 Oxygen Flow Rate 0 08/20/24 11:08 Pain Level 8 08/20/24 09:00 Comment RN notified 08/20/24 07:59 Intake & Output 08/19/24 08/20/24 08/20/24 23:59 11:59 23:59 Intake Total 585 / 1585 450 / 450 Output Total 650 / 650 Balance 585 / 1035 -200 / -200 Intake: IV 585 / 1585 450 / 450 Output: Urine 650 / 650 Other: Urine Color Yellow Yellow Straw Urine Appearance Clear Cloudy Urine Odor Normal Data Completed and Pending Labs on day of discharge: Labs from last 24 hours 08/20/24 05:35 WBC Pending RBC Pending Hgb Pending Hct Pending MCV Pending MCH Pending MCHC Pending RDW Pending Plt Count Pending MPV Pending Immature Gran % Pending Neutrophils % Pending Lymphocytes % Pending Monocytes % Pending Eosinophils % Pending Basophils % Pending Absolute Neutrophils Pending Absolute Lymphocytes Pending Absolute Monocytes Pending Absolute Eosinophils Pending Absolute Basophils Pending Sodium Pending Potassium Pending Chloride Pending Carbon Dioxide Pending Anion Gap Pending BUN Pending Creatinine Pending Est GFR (CKD-EPI 2020) Pending Glucose Pending Calcium Pending Preliminary micro results at discharge 08/19/24 13:15 Urine Culture - Preliminary Urine - Cath Hawkins Indwelling Gram negative ivett PFSH All Active Problems (Updated 08/23/24 @ 16:50 by Enid Bonner APRN) Seizure (Acute) Psychiatric symptoms (Acute) AMS (altered mental status) (Acute) Dehydration (Acute) Rhabdomyolysis (Acute) Acute UTI (Acute) Acute kidney injury superimposed on CKD (Acute) Fall (Acute) Ambulatory dysfunction (Acute) Lives in skilled nursing (Acute) Deficit in activities of daily living (ADL) (Acute) Closed fracture of distal end of radius (Acute) Palliative care patient (Acute) ACP (advance care planning) (Acute) Closed fracture of left distal radius (Acute) Closed fracture of right distal radius (Acute) Heart murmur (Acute) Depression (Chronic) At high risk for skin breakdown (Acute) Periorbital edema (Acute) Hiatal hernia (Chronic) moderate Coronary artery calcification seen on CAT scan (Acute) Diverticula of colon (Acute) DJD (degenerative joint disease), lumbar (Acute) History of CVA (cerebrovascular accident) (Acute) remote Fracture of both wrists (Acute) Goiter (Acute) Fibromyalgia (Chronic) KWAME (obstructive sleep apnea) (Chronic) Chronic pain (Chronic) Movement disorder (Acute) Chronic renal insufficiency, stage III (moderate) (Acute) Anemia (Chronic) Hypertension (Chronic) Medical History Primary osteoarthritis of left knee We will see the patient back in 4-1/2 months for possible repeat Synvisc 1 in her left knee would consider x-ray in her right knee if she is still significantly symptomatic Osteoarthritis of right knee Steroid injection: 04/05/2020 Has had previous viscosupplementation injections. 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) As treatment for a femoral neck fracture (DOI: 09/16/2020) History of back surgery Hx of cholecystectomy Social History Smoking/Tobacco Use Status: Never Smoking risk assessment performed?: Yes Alcohol Intake: never Drug use: Never Substance use type: does not use Housing: apartment Do you feel safe at home: Yes Do you feel safe in your relationship?: Yes Additional Social history: lives alone, has caregiver that come 7 days a week, do all the meds Time Spent with Patient Time Spent with Patient: 70-84 minutes4 Time was spent: preparing to see the patient(eg.review tests), obtaining and/or reviewing separately otained hiistory, ordering medications,tests, procedures, referring, communicating with other health child care center administrator, indepentently interpreting results, counseling the patient and care coordination
--- NOTE | 2024-08-20 14:45 | W.NUTCONSULT ---
Date of service: 08/20/24 Time of Service: 14:30 Nutritional Consult ASSESSMENT: received consult request regarding patients poor po intake and hx of weight loss. Pt resides in [facility] at baseline. Visited with patient who had difficulty answering some questions - told me she did have lunch but could not tell me what she had. Denies trouble chewing/swallowing although speech has assessed and recommends 1:1 feeding and documents risk for aspiration. Pt currently ordered for soft and bite size low sodium diet with thin liquids. Nursing endorses low po intake cannot assess at this time, average intake over recent hx. Tegan agrees she has had weight changes when I asked her and stated she has lost weight due to depression - not wanting to eat. Worked trying to discern some preferred food choices from her and patent agreeable to boost at each meal for easy to drink source of kcals/protein. Pt with documented 7kg weight loss over the last 6 months - a 12% weight loss. NFPE not performed but scooping to the temporal muscles noted as well as dull, dry hair, loss of fat to buccal fat pads. with living in intermediate project [facility] care facility, age and geographical location, would suggest vitamin D lab and correcting if low as it is not on her home med list and pt at risk for deficiency. NUTRITIONAL DIAGNOSIS: inadequate intake related to pysch and physical health conditions as evidenced by above noted decreased intake related to needs and significant weight loss/obvious losses in sub q fat and muscle INTERVENTION: will offer nutritious dense food choices high in protein and kcals as well as boost ONS TID. -can consider liquid protein concentrate ordered and administered by nursing. again, suggest vitamin D lab recommend continued 1:1 supervision/assist at meals for better intake MONITORING AND EVALUATION: will monitor weight, nutrition related labs and po intake Time Spent in Nutritional Counseling and Treatment: 10 minutes
--- NOTE | 2024-08-20 15:04 | CHAPLAIN ---
Tegan was sitting up in the chair when I visited. She said she'd had some trouble eating her pudding and had spilled some, and lost a spoon. I got her another spoon and some napkins. Tegan said she's in touch with her children and they know she is here. I explained my role and offered support.
--- NOTE | 2024-08-20 15:11 | PTTR_ITS ---
PT Notes Visit Reasons: UTI, Rhadbo, Pneumonia Inpatient Physical Therapy Treatment Note [facility] Date: 08/20/2024 PRECAUTIONS: Standard, IV access SUBJECTIVE: Patient reports feeling much better today than yesterday although her right shoulder still hurts OBJECTIVE: Patient alert conversant eager to get out of bed and start her day. ? PAIN: Right shoulder 07/28 patient describes as constant heaviness VITALS: 139/91, heart rate 65 Therapeutic Activities ([id number][]): Direct one-on-one instruction in dynamic activities to improve functional performance. Providing verbal and tactile cues for trunk/right upper extremity, upright posture, walker management throughout session supine to sit with min assist (1st session) Sit to stand min assist for right upper extremity support and verbal cues to push up with left upper extremity Stand to sit CGA Sit to supine CGA( 2nd session) Ambulation: Facilitated safe and correct performance of level surface ambulation covering a distance of 40 x 2 feet first session and 25 feet x 2-second session using use front wheeled walker with contact-guard assist and wheelchair follow for safety. Did not report of any increased pain. Denied headache, chest pain, and lightheadedness throughout activity. Minimal verbal cueing provided for AD management, directional changes, and posture. Balance: Static stand with 1 upper extremity support with standby assist times 1.5-2 minutes x 2 ASSESSMENT: Tegan tolerated sessions well. Patient with improvements in level of alertness ability to complete full sentences and follow all instructions. Patient demonstrated increased ability to utilize right upper extremity for functional tasks with greatest limitation noted at shoulder. Patient demonstrates active range of motion right hand elbow and able to perform shoulder abduction and extension. Patient with tenderness to palpation to anterior GHJ along prior incision line. PLAN: 1-2x/day, 7 days/week x 1 week. Plan of care has been reviewed with the PROPERTY COORDINATOR providing the service under Physical Therapy direction. Initiate Physical Therapy intervention for strengthening, bed mobility, transfers, gait, stairs, balance training, use of assistive device. TREATMENT CODE/TIME: 95127/1110?1150 Second session: 51375 [id number]?1310 DISCHARGE RECOMMENDATION: Home with PT/OT
--- NOTE | 2024-08-20 15:55 | W.PALLCONSUL ---
Date of service: 08/20/24 Time of Service: 14:15 History of Present Illness Narrative: Ms. Javed is a 73 y/o est PC pt currently hospitalized at [facility] 2/2 UTI, rhabdo and PNA, post fall; PMHx sig for h/o CVA, IBS, fibromyalgia, KWAME, HTN Hospital Course: presented to ED on 08/18 s/p fall, work up w/no acute fractures, positive for UTI, rhabdo and PNA; started on ceftriaxone for UTI and azithromycin for PNA; she refused an MRI yesterday, was more confused/less engaged yesterday, w/poor oral intake and concern of aspiration; DIAGNOSTICS SALES DEVELOPER consult recommend minced/moist diet w/feed assists, will continue to follow, recommend MBSS if no improvement; PT consult, did really well today, up out of bed w/1 person limited assist, mostly 2/2 RUE shoulder pain/limited ROM, concern for rotator cuff tear; sig improvement today compared to yesterday - OOB w/o assistance to bathroom earlier, did not alert anyone, now w/bed alarm, high fall risk; orders to remove levi for void trial post PC visit, feeding self, OT potentially to return today Tegan is feeling much better today, she feels more clear headed and aware of what is going on. She is happy to be receiving the care she is. - RUE shoulder and arm is causing most discomfort, feels like someone is squeezing it; - she wants to get out of bed, feels motivated to get up, would really like to take a shower, but is aware there is not enough staff to support this today, is happy she got a really nice sponge bath earlier, helped her feel a lot better She lives alone in single story home in [place], mireya Jackson and Amor both live locally and are extremely supportive. she has [employer] highest high, w/paid caregivers for a few hours a day in home, she told CM she has an increase in services w/hopefully more paid hours forthcoming, w/[facility] Suad Mcdowell - she feels safe returning home, like she can navigate home appropriately w/use of her walker, WC PRN - she does not leave home, only for appointments if absolutely necessary, does not drive self She would be agreeable to an MRI, she refused yesterday d/t claustrophobia fear, would want to be pre-medicated prior. She does not want to feel forced into anything, present her options, allow her to decide on her own. she would not want to return to a SNF, at all, unable to answer alternatives if she requires multimedia manager care, doesn't want to feel forced - she confirms Renetta and Amor are HCAs, she is currently a FULL CODE, w/preferences for LST at is time to continue to be around to support her children, Renetta has some health scares going on and she would like to be around to support her; she would not want LST if she wasn't able to think or act for self, had a terminal disease or was unaware of her surroundings, all consistent w/her AD Assessment and Plan Assessment and plan (1) AMS (altered mental status): Status: Acute Assessment and plan: per report does appear to be improved today, if not cleared - psych consult pending, pt consented per hospitalist (2) Rhabdomyolysis: Status: Acute Assessment and plan: resolved (3) Acute UTI: Status: Acute Assessment and plan: continue ceftriaxone void trial s/p PC visit (4) Fall: Status: Acute Assessment and plan: high fall risk; h/o multiple falls uses walker FT in home, does have WC for PRN use, not able to use throughout home PT consult recommends PT/OT (5) Deficit in activities of daily living (ADL): Status: Acute Assessment and plan: PT/OT following - today she was able to do more ADL support compared to yesterday, goals/motivated to get out of bed; eating ind but w/RUE shoulder accommodations, OT to present this afternoon - tolerating diet w/new orders; nutrition consult w/recommendations for increasing protein - void trial post visit - PT: 1 person assist, 2/2 shoulder pain does have caregivers in home through [facility], managed at this time by [facility] SAPNA Mcdowell recommend PT/OT/RN on discharge she is adamant no SNF - unclear if children would be able to provide some caregiving assist in acute discharge period (6) Palliative care patient: Status: Acute Assessment and plan: PC will continue to follow, plan for outpatient f/u, anticipate discharge prior to inpt f/u (7) ACP (advance care planning): Status: Acute Assessment and plan: reviewed AD, confirmed Renetta/Amor HCAs; LST preferences, continue FULL code at this time, would want CPR/intubation currently, but is unable to think/act for self, is unaware or has terminal disease would want to transition to comfort directed care reviewed recommendations for SNF vs HH, her preference is no SNF, she feels she has enough support at home and home set up safe currently that this is possible; agreeable to more help in home, abby HH reviewed MRI preferences, agreeable to MRI if claustrophobia treated prior w/medications spent 15m w/ACP Review of Systems Narrative: as per HPI PFSH All Active Problems Psychiatric symptoms (Acute) AMS (altered mental status) (Acute) Dehydration (Acute) Rhabdomyolysis (Acute) Acute UTI (Acute) Acute kidney injury superimposed on CKD (Acute) Fall (Acute) Ambulatory dysfunction (Acute) Lives in shelter (Acute) Deficit in activities of daily living (ADL) (Acute) Closed fracture of distal end of radius (Acute) Palliative care patient (Acute) ACP (advance care planning) (Acute) Closed fracture of left distal radius (Acute) Closed fracture of right distal radius (Acute) Heart murmur (Acute) Depression (Chronic) At high risk for skin breakdown (Acute) Periorbital edema (Acute) Hiatal hernia (Chronic) moderate Coronary artery calcification seen on CAT scan (Acute) Diverticula of colon (Acute) DJD (degenerative joint disease), lumbar (Acute) History of CVA (cerebrovascular accident) (Acute) remote Fracture of both wrists (Acute) Goiter (Acute) Fibromyalgia (Chronic) KWAME (obstructive sleep apnea) (Chronic) Chronic pain (Chronic) Movement disorder (Acute) Chronic renal insufficiency, stage III (moderate) (Acute) Anemia (Chronic) Hypertension (Chronic) Medical History Primary osteoarthritis of left knee We will see the patient back in 4-1/2 months for possible repeat Synvisc 1 in her left knee would consider x-ray in her right knee if she is still significantly symptomatic Osteoarthritis of right knee Steroid injection: 04/05/2020 Has had previous viscosupplementation injections. 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) As treatment for a femoral neck fracture (DOI: 09/16/2020) History of back surgery Hx of cholecystectomy Social History Smoking/Tobacco Use Status: Never Smoking risk assessment performed?: Yes Alcohol Intake: never Drug use: Never Substance use type: does not use Housing: apartment Do you feel safe at home: Yes Do you feel safe in your relationship?: Yes Additional Social history: lives alone, has caregiver that come 7 days a week, do all the meds Exam Narrative Exam Narrative: General: older adult female, lying in hospital bed throughout visit; CM and nutrition visits just prior to PC arrival HEENT: hearing grossly WNL, normocephalic, atraumatic; MMM Resp: even and unlabored, speaks full sentences w/o SOB; no cough, no audible wheeze Psych: flat affect, pleasant, answers questions appropriately, thought process congruent; insight/judgment fair to limited Results Last Vital Signs Temp 99.3 F 08/20/24 14:27 Pulse 72 08/20/24 14:27 Resp 15 08/20/24 14:27 BP 117/86 08/20/24 14:27 Pulse Ox 95 08/20/24 15:02 Labs 08/19/24 06:15 08/19/24 06:15 Time Spent Time Spent with Patient Time Spent(min): 50
--- NOTE | 2024-08-20 17:29 | PDOC.STREC ---
Date of service: 08/20/24 Time of Service: 17:29 Speech Therapy Recommendations Report ST Recommendations: VISUAL MERCHANDISING COORDINATOR speaking with RN this date. VISUAL MERCHANDISING COORDINATOR reinforcing recommendations for patient-specific aspiration precautions as below and especially for recommendation of taking PO intake while up to chair, with 1:1 feeding assist for pacing and bite/sip size, and oral care before/after PO. Nursing reported occasional coughs with lunch meal this date when precautions in place. Recommend MBSS to be completed tomorrow 08/21 (9 am tentative), if patient is willing (has been refusing other diagnostics in last 24 hrs) to determine frequency and severity of aspiration episodes and overall risk level, especially given patient is unlikely to accept d/c to SNF in the future (see Palliative note earlier this date). This is second instance of PNA in last 1-2 yrs, and with increasing frequency of falls she is certainly at risk of further aspiration complications as overall function declines. Continue with aspiration precautions for now as below: Diet Recommendations: ? SOLIDS: 6-Soft & Bite-Sized Solids - added sauces/gravies. Ensure meats and veggies are very tender/mashable with fork per IDDSI guidelines. LIQUIDS: 0-Thin Liquids MEDICATIONS: Whole With 4-Purees Alter medications only as advised by MD or Pharmacist RISK MANAGEMENT: Level of Assistance/Supervision: 1:1 Assistive feeding only by trained staff/family Positioning and environment: PO intake only when awake/alert? Reduce auditory and/or visual distractions when eating Up to chair Oral hygiene Before/after PO intake Using friction with toothbrush on all oral structures as tolerated Strategies/Adaptations/Assistive Equipment: Small sips - 1 at a time Small bites Slow rate of intake Cue intermittent throat clear during meals Swallow food before taking a sip. Reflux Precautions: Maintain fully upright position at least 30 minutes after meals Sleep with head of bed elevated to reduce likelihood of nocturnal reflux
[2024-08-20] MEDS: cefTRIAXone 1 GM/50 ML BAG IVPB (17:34)
[2024-08-20] MEDS: traZODone 100 MG TAB 200 MG PO (18:13)
[2024-08-20] MEDS: Senna TAB 1 TAB PO (20:54)
[2024-08-20] MEDS: Enoxaparin 40 MG/0.4 ML SYR SC (20:54)
[2024-08-20] MEDS: risperiDONE 1 MG TAB PO (20:54)
[2024-08-20] MEDS: Mirtazapine 15 MG TAB 7.5 MG PO (20:54)
[2024-08-21] VITALS (8 sets, daily range): BP systolic 114–135; BP diastolic 68–82; PULSE 60–74; RESP 10–18; TEMP 36.6–37.8; O2SAT 90–98
--- NOTE | 2024-08-21 | DI.CT_ITS ---
Exam(s) CT HEAD WO EXAM: CT HEAD WO CLINICAL HISTORY: altered MS. TECHNIQUE: Imaging Protocol: Axial computed tomography images with coronal and sagittal reformatted images were created and reviewed COMPARISON: CT CT HEAD CERVICAL SPINE WO from 08/18/2024 FINDINGS: There are no skull fractures. There is no fluid in the visualized paranasal sinuses. Large area of hypodensity-encephalomalacia in the right occipital lobe is unchanged from prior studie s and consistent with non acute right occipital lobe infarct. There is no evidence of acute intracranial hemorrhage, new mass effect, or shift of midline structure s. There are no extra-axial fluid collections. Ventricles are not enlarged or shifted. There is ab undant bilateral periventricular hypodensity consistent with chronic small vessel disease and there a re bilateral lacunar infarcts again noted. Some calcification both basal ganglia is again noted. IMPRESSION: No acute intracranial findings on this noninfused CT scan of the brain. Non recent right occipital lobe infarct again noted. Also abundant bilateral white matter ischemic d isease, including multiple bilateral lacunar infarcts. There is again noted heavy vascular calcification in the intracavernous and supraclinoid aspects of b oth internal carotid arteries as well as within the left vertebral artery and basilar artery common t his indicating significant atherosclerotic involvement of these vessels. RADIATION DOSE DELIVERED: 859.78mGy.cm Total DLP DATA REPOSITORY: All CT scans at this facility are submitted to the National Radiology Data Registry (NRDR) Dose Index Registry (DIR) with the [employer] (ACR). RADIATION OPTIMIZATION: All CT scans at this facility use at least one of these dose optimization te chniques: automated exposure control; mA and/or kV adjustment per patient size (includes targeted exa ms where dose is matched to clinical indication); or iterative reconstruction.
--- NOTE | 2024-08-21 | DI.MRI_ITS ---
Exam(s) MR BRAIN WO EXAM: MR BRAIN WO CLINICAL HISTORY: Stroke/ AMS TECHNIQUE: Multiplanar multisequence MRI of the brain was performed. COMPARISON: CT CT BRAIN NECK CTA from 11/30/[address] HEAD WO from 08/21/2024 FINDINGS: CEREBRAL PARENCHYMA: There is abundant bilateral periventricular signal abnormality consistent with chronic small vessel d isease and multiple bilateral nonacute appearing lacunar infarcts are noted, as evident on prior CT s cans. There is no evidence of restricted diffusion to suggest new area of acute infarct in the brain . There is significant signal abnormality-encephalomalacia in the right occipital lobe from non recent right occipital lobe infarct. There is some peripheral T1 hyperintensity in this region which is pro bably related to laminar necrosis and there is also some susceptibility artifact at this level relate d to laminar necrosis, gyral petechial hemorrhage at this level, or a combination. There is no acute blood evident on today's CT scan performed prior to this MRI. There is no evidence of hemorrhage in the basal ganglia PITUITARY GLAND: No mass nor parasellar abnormality. No obvious abnormality in the cavernous sinuses. FLOW VOIDS: The expected flow void are noted. No evidence of obvious aneurysm nor obvious vascular ma lformation. PARANASAL SINUSES: The visualized paranasal sinuses appear unremarkable. No obvious finding the front al sinuses are not developed. ORBITS: No obvious findings. IMPRESSION: No acute infarcts evident. Non recent large right occipital lobe infarct which exhibits some gyral T1 hyperintensity and suscept ibility artifact. 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 Abundant bilateral periventricular signal abnormality consistent with chronic small vessel disease an d there are a few small bilateral nonacute appearing lacunar infarcts DATA REPOSITORY:
--- NOTE | 2024-08-21 08:37 | PDOC.STREC ---
Date of service: 08/21/24 Time of Service: 08:30 Speech Therapy Recommend[address] Report ST Recommendations: MBSS was scheduled for 9AM 08/21/24- cancelled due to patient somnolence. Patient is non-responsive to sternal rub/verbal stimuli/repositioning. She did open her eyes and saw 'ow' in response to pain but immediately returned to somnolent state. Nursing aware and present. VEGETABLE TESTER will continue to follow and determine readiness for MBSS. Please continue dysphagia/aspiration precautions and do not attempt to feed when somnolent.
--- NOTE | 2024-08-21 08:54 | W.EVENT ---
Date of service: 08/21/24 Time of Service: 08:54 Event Note: called for patient unresponsive, 73 yo F with h/o CVA, AVR, KWAME, chronic pain on oxycontin. On morning rounds RN noted patient was unresponsive. No recent medications given per RN. She was 88% on room air, placed on 2 liters and 98%. Normal vital signs. When I saw her, she opened her eyes briefly and vocalized with gentle sternal rub. We sit her up, pupils not pinpoint (around 3mm to). He mouth appeared slighly droopy on the left side. She was not responding to commands to do an exam (such as smile or squeeze). Stroke alert called for STAT CT. Fingerstick glucose 106. VBG showed some CO2 retention., trop added to morning labs, negative. CT and MRI done, negative. Concern for seizures per teleneuro. Cutting opioid dose, recently increased oxycontin and she appears to be getting oversedated and underventilating. Time Spent with Patient Time spent in critical care(minutes): 35 Time Spent Included: Chart review, Documenting critically ill care, Time at immediate bedside and Discussing critically ill care with other medical staff
--- NOTE | 2024-08-21 09:24 | W.PM.PROGNOT ---
Date of Service Date of service: 08/21/24 Time of Service: 09:24 Assessment and Plan Assessment and plan (1) AMS (altered mental status): Status: Acute Assessment and plan: Initial AMS resolve w/i 24-48 hours with patient near baseline New AMS this AM, CT appears negative for bleed upon review- Head CT : no change from imaging from 08/18- negative for acute findings MRI :IMPRESSION: No acute infarcts evident. 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 Abundant bilateral periventricular signal abnormality consistent with chronic small vessel disease and there are a few small bilateral nonacute appearing lacunar infarcts Discussion with [place]. [place]thing[place] [facility] [place]: Imaging reviewed and negative for acute findings, appears post-ictal and home topiramate might not be adequate - -Recommendations for 2000mg of IV Keppra bolus then 500 mg Q12 hours, EEG, asa, low dose statin, no plavix ,neurology follow-up -Treat metabolic causes , infections -If EEG not done inpatient can be done outpatient PERI Bautista reported that daughter Renetta mentioning that risperidone was substituted to trazodone d/t increased somnolence -Will stop trazodone AMS could have been d/t UTI, multiple home Rx, stroke, or seizure but improved AMS close to basleine w/o coverage of pseudomonas initially while taking home meds. On initial presentation CT negative for bleed but MRI recommended by [facility] d/t increased calcification in basal ganglia most likley not the cause of the fall in the setting of now Dx UTI Clearer sensorium MRI refused despite premedication with lorazepam - will not pursue On 08/19/24 as per discussion with to Dr. Kang from [facility] [place]- spine surgery : No recommendation for interventions hyperdensity consistent to calcification and d/t age 308/21/24:Resolved and at baseline (2) Seizure: Status: Acute Assessment and plan: As above Remains post-ictal Slow IV hydration- (3) Acute UTI: Status: Acute Assessment and plan: S/p fall at home with reported nausea vomiting - not meeting sepsis criteria. Urine Cx :Pseudomonas GNR awaiting for Cx to speciate pathogen Now on cefepime CBC in AM (4) Fall: Status: Acute Assessment and plan: Now resolved but consider occurence in the setting of possible seizure disorder Not acute fractures imaging studies Fall precautions Ongoing PT : recommendation for SNF but family most likely will want to go home (5) Pneumonia: Assessment and plan: As per CT imaging report - not meeting sepsis criteria on admission Ongoing Azithromycin and ceftriaxone day 4 (6) Rhabdomyolysis: Status: Acute Assessment and plan: Resolved on 08/19/24 CPK > 600 on admission down into the 300's no further monitoring Continue to encourage oral fluid intake but has poor intake - will start remeron at HS No further IVF (7) Dehydration: Status: Acute Assessment and plan: Improve BUN Cr 1.0 at baseline , improved LOC gradually resume home meds with sedative effect encourage oral intake BMP in AM (8) Psychiatric symptoms: Status: Acute Assessment and plan: Isolation at home avoiding going out - PCP appointment or psychiatric provider Reduced PO intake?speech consulted with recommendation for MBSS but delayed d/t point 1 Hx of severe depression as per family - no records , but on sertraline and trazodone Continue remeron psych consult - delayed as per point 1 Nutrition consult Discussed with Dr. Mckoy Subjective Subjective Patient reports: other (Only responds to deep tactile stimuli by moaning - w/d from pain GCS 7) Exam Narrative Exam Narrative: female 73 y.o female patient looking of stated age, GCS 7- moans on pain, new spastic LUE but positve resistance to gravity , no true facial droop- questionable left appears cachectic, nonicteric dry sclera, PERRLA 2 B , S1-S2 regular- irregular , no murmur, positive radial and pedal pulses, clear lungs , abdomen is nonacute and RLQ tender- no guarding no huber, no rash on exposed skin Objective Last Vital Signs Temp 37.4 C 08/21/24 08:26 Pulse 74 08/21/24 08:40 Resp 12 08/21/24 08:40 BP 114/75 08/21/24 08:40 Pulse Ox 94 08/21/24 08:41 Laboratory Results - last 24 hr 08/20/24 05:35 WBC Cancelled RBC Cancelled Hgb Cancelled Hct Cancelled MCV Cancelled MCH Cancelled MCHC Cancelled RDW Cancelled Plt Count Cancelled MPV Cancelled Immature Gran % Cancelled Neutrophils % Cancelled Band Neutrophils % Cancelled Lymphocytes % Cancelled Atypical Lymphs % Cancelled Monocytes % Cancelled Eosinophils % Cancelled Basophils % Cancelled Metamyelocytes % Cancelled Myelocytes % Cancelled Promyelocytes % Cancelled Other Cells % Cancelled Nucleated RBC % Cancelled Absolute Neutrophils Cancelled Absolute Lymphocytes Cancelled Absolute Monocytes Cancelled Absolute Eosinophils Cancelled Absolute Basophils Cancelled RBC Morphology Cancelled Polychromasia Cancelled Hypochromasia Cancelled Poikilocytosis Cancelled Basophilic Stippling Cancelled Anisocytosis Cancelled Microcytosis Cancelled Macrocytosis Cancelled Spherocytes Cancelled Tear Drop Cells Cancelled Ovalocytes Cancelled Stomatocytes Cancelled Gomez-Grandfalls Bodies Cancelled Tomas Cells/Echinocytes Cancelled Acanthocytes (Spur) Cancelled Schistocytes Cancelled Sodium Cancelled Potassium Cancelled Chloride Cancelled Carbon Dioxide Cancelled Anion Gap Cancelled BUN Cancelled Creatinine Cancelled Est GFR (CKD-EPI 2020) Cancelled Glucose Cancelled Calcium Cancelled Time Spent with Patient Time Spent with Patient: >50 minutes Time was spent: preparing to see the patient(eg.review tests), obtaining and/or reviewing separately otained hiistory, ordering medications,tests, procedures, referring, communicating with other health critical care registered nurse, indepentently interpreting results, counseling the patient and care coordination
--- NOTE | 2024-08-21 09:30 | RT.EKG_ITS ---
APPROVED REPORT Exam: Resting ECG Reason for Exam: change in LOC Patient Location: I HR:58 bpm ECG Measurements Heart Rate 58 AXIS NC 194 P 42 QRSd 97 QRS 5 QT 482 T 29 QTc 476 Conclusion Sinus bradycardia...rate< 60 Multiple ventricular premature complexes...V complexes w/ short R-R intervls
--- NOTE | 2024-08-21 09:54 | PDOC.CMPRO ---
Date of service: 08/21/24 Time of Service: 09:55 Care Management Progress Note Progress Note Text Progress Note Text: This morning a stroke alert was called for Tegan at about 8:30 am when she was found unresponsive (except to pain) and had a left facial droop. An MRI was ordered and no new stroke/cva areas were noted. When CM met with her, Tegan was still unresponsive to voice or gentle touch. A teleneuro consult has been done and she will be worked up for possible seizure activity. A loading dose of Keppra was initiated and an EEG has also been ordered. Tegan's nurse contacted both Amor and Renetta (children) and updated them this afternoon. There has been no change in Tegan's level of consciousness this afternoon. Discharge Potential Discharge Needs: PCP F/U Appt Anticipated Barriers to Discharge: Medical Status Patient/Family Education Needs: Review discharge instructions, discuss Ask Me Three Transportation: Private vehicle Plan: Tegan will likely be discharged home with a resumption of caregiver services when medically cleared. She will follow up with her community providers and plan of care and transport with family. CM will follow and continue to support discharge needs. Social Determinants of Health Screening Will the Patient Participate in the Screening?: Declined to provide
[2024-08-21 10:04] LABS: BE (Venous) 3 mmol/L (-2-3); HCO3 (Venous) 29 mmol/L (23-28); O2 Sat (Venous) 75 %; TCO2 (Venous) 28 mmol/L (24-29); pCO2 (Venous) 52 mmHg (41-51); pH (Venous) 7.35 (7.31-7.41); pO2 (Venous) 43 mmHg
[2024-08-21 10:06] LABS: Abs Immature Grans 0.03 10^3/uL (0.0-0.06); HCT 25.8 % (36.0-46.0); HGB 8.2 g/dL (11.2-15.7); MCH 27.4 pg (27.0-33.0); MCHC 31.8 % (32.0-36.0); MCV 86 fL (80-95); Platelet Count 270 10^3/uL (130-400); RBC 2.99 10^6/uL (3.93-5.22); RDW 14.9 % (11.7-14.6); RDW-SD 46.7 fL; WBC 3.95 10^3/uL (4.4-10.8)
--- NOTE | 2024-08-21 10:08 | NUR.NOTE ---
0829 received webex from Susanne STRAUSS that this patient was not responding to voice/touch this AM. Went to see patient, only responsive to painful stimuli and was not following commands. Had PERRLA at this time with noted L mouth droop but unclear what her baseline deficits are from prior CVA. Vitals were WNL with exception of O2 sats at 86% on room air. Pt has known KWAME, she was put on 3L nc to get sats back to 96%. Provider Enid Bonner [employer] notified but not yet in building, MD Mckoy then messaged and came to bedside to eval pt. Ordered stat non con head CT, fingerstick obtained prior and WNL at 106. Pt previously refused AM labs, they were obtained after CT/MRI. No new stroke/changes noted in MRI per verbal report from MRI staff. Pt responsiveness level has not changed. Pending teleneuro consult at this time. New PIV obtained and AM labs were able to be drawn. Pt laying in bed sleeping, new set of VS stable, no evidence of pain, still only responsive to pain at this time. Bed low/locked, call spence in reach. Nursing Note:
[2024-08-21 10:26] LABS: ALT 50 U/L (14-59); AST 55 U/L (15-37); Albumin 2.5 g/dL (3.4-5.0); Alkaline Phosphatase 61 U/L (46-116); Anion Gap 5.4 mmol/L (3-11); BUN 23 mg/dL (7-18); Bilirubin, Total 0.22 mg/dL (0.2-1.0); CO2 30.6 mmol/L (21.0-32.0); CREATININE 0.9 mg/dL (0.55-1.02); Calcium 9.2 mg/dL (8.5-10.1); Chloride 107 mmol/L (98-107); Estimated GFR 66.67 (mL/min/1.73m2); Glucose 90 mg/dL (74-106); Potassium 4.4 mmol/L (3.5-5.1); Sodium 143 mmol/L (136-145); Total Protein 7.5 g/dL (6.4-8.2); Troponin I 18 ng/L (<or=51)
[2024-08-21 10:28] LABS: Absolute Basophil Count 0.04 10^3/uL (0.0-0.2); Absolute Eosinophil Count 0.04 10^3/uL (0.0-0.7); Absolute Lymphocyte Count 1.11 10^3/uL (1.2-3.4); Absolute Neutrophil Count 2.57 10^3/uL (1.2-6.7); Atypical Lymphocytes % 0 %; Bands % 0 %; Diff Comment Manual Differential
[2024-08-21] MEDS: levETIRAcetam 2,000 MG in Normal Saline 100 ML 400 MG IVPB (11:39)
[2024-08-21] MEDS: Normal Saline Flush 10 ML SYR IVP ×3 (11:55→21:40)
[2024-08-21] MEDS: CEFEPIME 2 GM in Normal Saline 100 ML IVPB (12:28)
--- NOTE | 2024-08-21 15:04 | NUR.NOTE ---
patient level of consciousness has not improved from this AM's event/stroke alert. Patient remains somnolent with no verbal interaction other than to say ow when responding to painful stimuli. Tele neuro consult completed in room with this RN, working up for possible seizure activty, IV keppra infused this afternoon, EEG ordered and pending. Patient on Q2 hour turns. No evidence of pain. Blisters to R thigh now open and dressed (suspected injuries from prior fall/time on ground), PIV intact, 3L NC on patient due to KWAME hx. Son Amor and dtr Renetta called and updated on situation. Pending next steps and further work up. Voiding to brief incontinently. Bed low/locked, call spence in reach, bed alarm on. Nursing Note:
--- NOTE | 2024-08-21 15:45 | PT.INNT ---
PT Notes Visit Reasons: UTI, Rhadbo, Pneumonia PT treatment held for today d/t event in the morning and testing throughout the day.
--- NOTE | 2024-08-21 17:59 | NUR.NOTE ---
patient turned and repositoined for Q2 hour turns. still only responsive to painful stimuli, eye opening response, not interactive with further questioning and does not follow commands, still producing urine despite no PO intake today. Continues on 2L nc due to sleepiness and hx KWAME. VSS. Bed low/locked, call spence in reach, bed alarm on. Nursing Note:
[2024-08-21] MEDS: AZITHROMYCIN 250 MG in Normal Saline 250 ML IVPB (21:39)
[2024-08-21] MEDS: Enoxaparin 40 MG/0.4 ML SYR SC (21:40)
[2024-08-21] MEDS: levETIRAcetam 500 MG in Normal Saline 100 ML 400 MG IVPB (22:45)
[2024-08-22] MEDS: CEFEPIME 2 GM in Normal Saline 100 ML IVPB ×2 (00:26→12:14)
[2024-08-22] MEDS: Lactated Ringers 1,000 ML 80 ML IV ×2 (01:23→15:07)
[2024-08-22 03:22] VITALS: BP 138/60; PULSE 65; RESP 18; TEMP 36.9; O2SAT 95
[2024-08-22 06:52] LABS: Abs Immature Grans 0.03 10^3/uL (0.0-0.06); Absolute Basophil Count 0.06 10^3/uL (0.0-0.2); Absolute Eosinophil Count 0.12 10^3/uL (0.0-0.7); Absolute Lymphocyte Count 0.93 10^3/uL (1.2-3.4); Absolute Monocyte Count 0.45 10^3/uL (0.1-0.8); Absolute Neutrophil Count 2.11 10^3/uL (1.2-6.7); Basophils % 1.6 %; Eosinophils % 3.2 %; HGB 8.9 g/dL (11.2-15.7); Immature Grans % 0.8 %; Lymphocytes % 25.1 %; MCH 27.1 pg (27.0-33.0); MCHC 31.8 % (32.0-36.0); MCV 85 fL (80-95); MPV 10.1 fL (8.0-11.0); Monocytes % 12.2 %; Neutrophils % 57.1 %; Platelet Count 260 10^3/uL (130-400); RBC 3.29 10^6/uL (3.93-5.22); RDW-SD 46.7 fL
[2024-08-22 07:02] LABS: Anion Gap 6.7 mmol/L (3-11); BUN 21 mg/dL (7-18); CO2 27.3 mmol/L (21.0-32.0); CREATININE 0.9 mg/dL (0.55-1.02); Calcium 9.2 mg/dL (8.5-10.1); Chloride 112 mmol/L (98-107); Estimated GFR 66.67 (mL/min/1.73m2); Glucose 80 mg/dL (74-106); Magnesium 1.7 mg/dL (1.8-2.4); Sodium 146 mmol/L (136-145)
[2024-08-22 08:02] VITALS: BP 161/85; PULSE 51; RESP 20; TEMP 36.7; O2SAT 99
[2024-08-22] MEDS: levETIRAcetam 500 MG in Normal Saline 100 ML 400 MG IVPB (08:56)
[2024-08-22] MEDS: Normal Saline Flush 10 ML SYR IVP (09:20)
[2024-08-22 09:25] VITALS: O2SAT 95
--- NOTE | 2024-08-22 10:10 | CMPROGNOTE_ITS ---
Date of service: 08/22/24 Time of Service: 10:10 Care Management Progress Note Progress Note Text Progress Note Text: Tegan was sitting up on the side of the bed when CM met with her. She was preparing to work with PT, albeit reluctantly. Tegan has been really somnolent since her stroke alert yesterday. This afternoon, however, she woke up and was alert and oriented. She was able to tell CM exactly where she is and answered all questions appropriately. When asked about rehab Tegan was very clear that that it is not an option. She informed CM that she want to return home. When asked if she thought she would be able to safely be alone, she answered No. She stated she needs more help but does not know where that help will come from. After much coaxing, Leigh cho PT was able to get Tegan to walk from the bed to the chair with a walker with only contact guard assist. This afternoon Zoë from Palliative Care met with Tegan and reviewed code status. Tegan opted to transition from a full code to DNR/DNI. Discharge Potential Discharge Needs: PCP F/U Appt Anticipated Barriers to Discharge: Medical Status Patient/Family Education Needs: Review discharge instructions, discuss Ask Me Three Transportation: Private vehicle Plan: Tegan will likely be discharged home with a resumption of caregiver services when medically cleared. She will follow up with her community providers and plan of care and transport with family. CM will follow and continue to support discha rge needs. Social Determinants of Health Screening Will the Patient Participate in the Screening?: Declined to provide
--- NOTE | 2024-08-22 11:58 | INPN_ITS ---
PT Notes Visit Reasons: UTI, Rhadbo, Pneumonia Inpatient Physical Therapy Progress Note Date: 08/22/2024 Dates of Service: 08/19/2024 - 08/22/2024 Patient is 73-year-old female presenting status post event on 08/21/2024 of unresponsiveness except to pain. Pt underwent Head Ct and MRI which showed old right occipital lobe infarct . Pt also had teleneuro consult: possible seizure therfore pt given loading dose of Keppra. Pt now with significant change in functional ability. PRECAUTIONS: Standard, IV access left upper extremity antecubital. SUBJECTIVE: Intermittent vocalizations of cold, pain and answered yes when asked if she was hungry. OBJECTIVE patient presented supine in bed with head of bed at 30 degrees eyes closed oxygen at 2 L satting at 96% and IV infusing left upper extremity. Respiratory present oxygen removed patient able to maintain sats at that time at 94% on room air. Patient did not open eyes to vocalizations until head of bed was raised to upright position. Patient noted with droop to left brow and slight droop to left side of face patient with initially no active movement of B UE then noted spontaneous movement of left UE to grasp right UE. No active movement noted in BLE spontaneously or on command. Patient then with frequent vocalizations of cold, pain PAIN: Patient unable to utilize scale however vocalized pain when right shoulder palpated BED MOBILITY/TRANSFERS Rolling L/R: Dependent x 2 Supine-sit: Dependent x 2 Sit-supine: Dependent x 2 Sit-stand: Unable Stand-sit: Unable Bed-Chair: Dependent x 2 squat pivot GAIT: Unable at this time STAIRS: unable Assessment: Patient is a 73 year old female referred to physical therapy services with the diagnosis of UTI/altered mental status. Now presenting s/p event with significant decline in her functional ability and resulting in left sided facial droop of brow and cheek, mouth. Pt with eye gaze to the right despite head turn to the left. Pt able to turn head to the right. Difficult to assess her vision d/t intermittent level of alertness. Pt with delayed one word responses to questions. Speech quality unchanged from prior to event. Pt initially was difficult to arouse however with elevation of head and warm cloth to face she was able to keep eyes open. Patient presents with clinical signs and symptoms consistent with neurological event involving motor control., as demonstrated by the following impairment level findings: 1. Decreased strength/ motor control to BUE/LE major muscle groups 2. Impaired sitting and standing balance 3. Impaired activity tolerance 4. Limitations of range of motion right shoulder wrist and hand Impairments are contributing to the following functional limitations: 1. AMPAC score. 2. Decline in bed mobility skills 3. Decline in transfer skills 4. Inability to perform ambulation 5. Increased time to complete ADL/mobility tasks 6. Increased risk for falls 7. inability to manage stairs alone safely Patient is assessed as a Moderate 70483 complexity based on the following: History: 73-year-old female with past medical history as stated above Examination: Demonstrates impairments in strength, balance, mobility level with underlying impairments and functional limitations as stated above Presentation: Evolving Decision Making: Moderate Goals: All goals revised from initial evaluation. Goals X1 week 1. Supine-Sit min A of 1 2. Sit-Supine min A of 1 3. Sit-Stand Mod A of 2 at FWW 4. Stand-Sit mod A of 2 5. Bed-Chair mod A of 1 pivot 6. Chair-Bed mod A of 1 pivot PLAN OF CARE/TREATMENT PLAN: 1-2x/day, 7 days/ week x 1 week Plan of care has been reviewed with the [employer] providing the service under Physical therapy direction. Initiate physical therapy intervention for strengthening, bed mobility, transfers, gait, stairs, balance training, use of assistive device. DISCHARGE RECOMMENDATIONS: SNF TREATMENT CODE/TIME: 34585,03092/ [id number]
[2024-08-22] MEDS: Meloxicam 15 MG TAB PO (12:15)
[2024-08-22] MEDS: oxyCODONE-CR 20 MG TABCR PO ×2 (12:16→20:09)
--- NOTE | 2024-08-22 12:55 | NUR.NOTE ---
charting reviewed with Angel Wisdom, student nurse. Saira Dee, MSN, RNC-OB (clinical instructor)Nursing Note:
--- NOTE | 2024-08-22 13:25 | PTTR_ITS ---
PT Notes Visit Reasons: UTI, Rhadbo, Pneumonia Inpatient Physical Therapy Treatment Note [facility] Date: 08/22/2024 PRECAUTIONS: High Fall risk. Activity as tolerated. Impaired safety awareness. SUBJECTIVE: Complained of pain all over her body. [place] cold, happy to have been given by PT a fred. Replied no' to everything requested of her but when movement are initiated for her she goes along with the movement. OBJECTIVE: Mental status: Questioning oppositional defiant disorder as patient responds by saying no to everything but with movement initiation, patient follows ? Pain: Complained of generalized pain initially but once seated at edge of bed was relaxed and was gently rocking trunk back and forth VITALS: Closely monitored by nursing staff BED MOBILITY: Moderate cueing provided for use of B hands as needed for support, movement sequence, AD management, and posture to reduce fall risk and minimize pain report Sit to stand minimal assist with FWW Stand to sit contact guard assist with FWW Bed to reclining chair contact guard assist with FWW THERA EX: Direct one-on-one supervision and training with edge of bed exercises with maximal cueing provided and guided movements as fllows: --With B hands held, patient's B UEs were slowly guided forward/backward, sideways, up/and down x 10 each --With B hands held, patient was guided slowly sideways in trunk lateral flexion R and L x 10 --With tactile stimulation, each knee was lifted up slowly as high as she could into hip flexion x 10 Ambulation: Initially, did not want to stand up but with guided movement of B UE onto walker and genle boost from behind for movement initiation, patient moved. Covered a short distance of 8-10 steps from edge of bed to chair with contact guard assist using use front-wheeled walker with contact-guard assist. Denied headache, chest pain, and lightheadedness throughout activity. Moderate verbal cueing provided for AD management, directional changes, and posture. Balance: Static sitting: Good--was able to tolerate 10 minutes of edge of bed sitting unsupported Dyanmic sitting: Fair Static standing: Fair Dynamic standing: Fair ASSESSMENT: Questioning oppositional defiant disorder as patient persistently says no to all requests but with guided movement initiation, patient is able to follow through and complete movement. No dyskinesias nor tremors observed. No report of increased pain throughout. Patient was comfortably positioned on bedisde chair and was happy to have gotten two warm blankets. Poor safety awareness. No movement initiation (apraxia?). PLAN: Continue with functional mobility progression, strength and balance skilling as tolerated. DISCHARGE RECOMMENDATION: SNF vs LTC based on mobility trajectory and safety awareness level TREATMENT CODE/TIME: 76531 x 30 minutes for 2 units, 51162 x 17 minutes for 1 unit (14:11-14:58).
--- NOTE | 2024-08-22 15:06 | W.PM.PROGNOT ---
Date of Service Date of service: 08/22/24 Time of Service: 15:06 Assessment and Plan Assessment and plan (1) AMS (altered mental status): Status: Acute Assessment and plan: Initial AMS resolve w/i 24-48 hours with patient near baseline New AMS this AM, CT appears negative for bleed upon review- Head CT : no change from imaging from 08/18- negative for acute findings MRI :IMPRESSION: No acute infarcts evident. 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 Abundant bilateral periventricular signal abnormality consistent with chronic small vessel disease and there are a few small bilateral nonacute appearing lacunar infarcts [place] [facility] [place] Imaging reviewed and negative for acute findings, appears post-ictal and home topiramate might not be adequate - -Recommendations for 2000mg of IV Keppra bolus then 500 mg Q12 hours, EEG, asa, low dose statin, no plavix ,neurology follow-up -Treat metabolic causes , infections -If EEG not done inpatient can be done outpatient PERI Bautista reported that daughter Renetta mentioning that risperidone was substituted to trazodone d/t increased somnolence -Will stop trazodone AMS could have been d/t UTI, multiple home Rx, stroke, or seizure but improved AMS close to basleine w/o coverage of pseudomonas initially while taking home meds. On initial presentation CT negative for bleed but MRI [place] [facility] [place]t increased calcification in basal ganglia most likley not the cause of the fall in the setting of now Dx UTI Clearer sensorium MRI refused despite premedication with lorazepam - will not pursue On 08/19/24 as per discussion with to Dr. Kang [place] [facility] [place] surgery : No recommendation for interventions hyperdensity consistent to calcification and d/t age 308/21/24:Resolved and at baseline (2) Seizure: Status: Acute Assessment and plan: continue keppra EEG when available see above (3) Acute UTI: Status: Acute Assessment and plan: S/p fall at home with reported nausea vomiting - not meeting sepsis criteria. Urine Cx :Pseudomonas GNR awaiting for Cx to speciate pathogen continue cefepime CBC in AM (4) Fall: Status: Acute Assessment and plan: Now resolved but consider occurence in the setting of possible seizure disorder Not acute fractures imaging studies Fall precautions Ongoing PT : recommendation for SNF but family most likely will want to go home (5) Pneumonia: Assessment and plan: As per CT imaging report - not meeting sepsis criteria on admission complete Azithromycin and ceftriaxone day 5 (6) Rhabdomyolysis: Status: Acute Assessment and plan: Resolved on 08/19/24 CPK > 600 on admission down into the 300's no further monitoring Continue to encourage oral fluid intake but has poor intake - will start remeron at HS No further IVF (7) Dehydration: Status: Acute Assessment and plan: Improve BUN Cr 1.0 at baseline , improved LOC gradually resume home meds with sedative effect encourage oral intake BMP in AM (8) Psychiatric symptoms: Status: Acute Assessment and plan: Isolation at home avoiding going out - PCP appointment or psychiatric provider Reduced PO intake?speech consulted with recommendation for MBSS but delayed d/t point 1 Hx of severe depression as per family - no records , but on sertraline and trazodone Continue remeron psych consult when appropriate Nutrition consult Discussed with Dr. Key Subjective Subjective Patient reports: no new complaints and feels better Exam Const General: cooperative, healthy appearing and no acute distress HENMT Head: normal to inspection Face and sinus: normal facial exam Eyes General: appearance normal, both eyes and all related structures Pupils: PERRL EOM: EOM intact bilaterally Neck Neck: normal visual inspection and No submandibular swelling Lymphatic: no lymphadenopathy noted Chest Chest: normal inspection of the chest and no tenderness Resp Effort & Inspection: normal respiratory effort and able to speak in complete sentences Auscultation: clear to auscultation bilaterally Cardio Rate: regular rate Rhythm: regular rhythm GI Inspection: normal to inspection Palpation: soft, not firm, not rigid and nontender Auscultation: normal bowel sounds Back/Spine/Pelvis Thoracic/Lumbar Spine: thoracic and lumbar spine normal to inspection Skin General skin exam: no rashes or lesions noted Neuro General: patient alert, patient awake and patient oriented x3 Cognition: normal cognition Speech: speech normal Motor: muscle tone normal throughout Sensory Exam: no sensory deficits noted Psych Appearance: grossly normal Mental Status: mental status grossly normal Speech and Movement: speech and movement normal Affect: normal affect Objective Last Vital Signs Temp 36.7 C 08/22/24 08:02 Pulse 51 L 08/22/24 08:02 Resp 20 08/22/24 08:02 BP 161/85 H 08/22/24 08:02 Pulse Ox 95 08/22/24 09:25 Laboratory Results - last 24 hr 08/22/24 06:05 WBC 3.70 L RBC 3.29 L Hgb 8.9 L Hct 28.0 L MCV 85 MCH 27.1 MCHC 31.8 L RDW 15.0 H Plt Count 260 MPV 10.1 Immature Gran % 0.8 Neutrophils % 57.1 Lymphocytes % 25.1 Monocytes % 12.2 Eosinophils % 3.2 Basophils % 1.6 Nucleated RBC % 0.0 Absolute Neutrophils 2.11 Absolute Lymphocytes 0.93 L Absolute Monocytes 0.45 Absolute Eosinophils 0.12 Absolute Basophils 0.06 Sodium 146 H Potassium 4.0 Chloride 112 H Carbon Dioxide 27.3 Anion Gap 6.7 BUN 21 H Creatinine 0.9 Est GFR (CKD-EPI 2020) 66.67 Glucose 80 Calcium 9.2 Magnesium 1.7 L Time Spent with Patient Time Spent with Patient: 35-49 minutes Time was spent: preparing to see the patient(eg.review tests), obtaining and/or reviewing separately otained hiistory, ordering medications,tests, procedures, indepentently interpreting results and counseling the patient
--- NOTE | 2024-08-22 15:44 | TELEP.MEDR_ITS ---
Date of service: 08/22/24 Time of Service: 15:44 [facility] Home Med Rec Allergies Allergies: sulfamethoxazole (From Bactrim) Allergy (Verified 08/18/24 12:04) Diarrhea trimethoprim (From Bactrim) Allergy (Verified 08/18/24 12:04) Diarrhea morphine Adverse Reaction (Intermediate, Unverified 08/18/24 12:04) Psychosis baclofen Adverse Reaction (Unknown, Unverified 08/18/24 12:04) Unknown chlorthalidone Adverse Reaction (Unknown, Unverified 08/18/24 12:04) Unknown codeine Adverse Reaction (Unknown, Unverified 08/18/24 12:04) Unknown dextromethorphan Adverse Reaction (Unknown, Unverified 08/18/24 12:04) Unknown gabapentin (From Neurontin) Adverse Reaction (Unknown, Unverified 08/18/24 12:04) Unknown hydrochlorothiazide Adverse Reaction (Unknown, Unverified 08/18/24 12:04) Unknown pregabalin Adverse Reaction (Unknown, Unverified 08/18/24 12:04) Karina Interview Person Interviewed: patient Quality Quality of Interview/Accuracy of Medication List: Fair Sources Sources used to compile medication list: Datical Medication List and Retail Ph[facility] rm[facility] Changes made to Home Medication List: ADDITIONS: None DELETIONS: None CHANGES: ondansetron: changed to PRN Additional Notes Additional Notes: Patient confirmed all medications on her list. She reports she took all of her meds this morning. Unclear how reliable of a historian she is. I tried calling her daughter, Renetta, but was unable to reach her. Recommended Changes Attestation: The home medication list is now updated to the best of my knowledge and is ready to be reconciled by the provider. Please contact the [facility] Medication Reconciliation Pharmacist at for any questions.
--- NOTE | 2024-08-22 16:14 | W.PALPGNOTE ---
Date of service: 08/22/24 Time of Service: 16:15 Assessment and Plan Assessment and plan (1) AMS (altered mental status): Status: Acute Assessment and plan: Appears to be improving after suspected seizure. She is awake and alert this afternoon and able to engage in discussion. (2) Rhabdomyolysis: Status: Acute Assessment and plan: resolved (3) Acute UTI: Status: Acute Assessment and plan: On Abx (4) Fall: Status: Acute Assessment and plan: She is working with PT. RUE pain due to fall. (5) Deficit in activities of daily living (ADL): Status: Acute Assessment and plan: PT/OT following Does have caregivers in home through [facility], managed at this time by [facility] Suad Mcdowell recommend PT/OT/RN on discharge she is adamant no SNF - unclear if children would be able to provide some caregiving assist in acute discharge period (6) Palliative care patient: Status: Acute Assessment and plan: PC will continue to follow, plan for outpatient f/u, anticipate discharge prior to inpt f/u (7) ACP (advance care planning): Status: Acute Assessment and plan: Reviewed GOC in setting of AMS after suspected seizure. Her mental status appears to be back to baseline. She is clear she wants to be DNR/DNI. COLST completed to reflect her wishes. This is consistent with her AD. Her daughter, Renetta and son, Amor are HCA. She is agreeable to outpatient f/u with Palliative care. F/u after discharge home. She states she will need HV. Subjective Subjective Interval history since last seen: Tegan was seen earlier on this admission for Palliative consultation. Since that visit, she had an event that appears to be a seizure. She was minimally responsive. Another Palliative visit was requested to revisit goals of care in this setting, however, by the time I came to visit her, she was sitting up in the chair and was awake and alert. She was able to engage in the visit. We reviewed the recent events. She is very clear that she does not want to be a FULL CODE. She wants to be a DNR/DNI, a COLST was completed to reflect her wishes. This is consistent with her AD from 2010. Her daughter, Renetta and son, Amor are her HCA. She reports that they are aware of her wishes. Exam Narrative Exam Narrative: General: older adult female, sitting up in the recliner in her hospital room. She is awake, alert and oriented. She engages in the visit. HEENT: hearing grossly WNL, normocephalic, atraumatic; MMM Neck: supple Resp: even and unlabored, speaks full sentences w/o SOB; no cough, no audible wheeze Ext: RUE with LROM due to pain s/p fall Psych: flat affect, pleasant, answers questions appropriately, thought process congruent Objective Last Vital Signs Temp 36.7 C 08/22/24 08:02 Pulse 51 L 08/22/24 08:02 Resp 20 08/22/24 08:02 BP 161/85 H 08/22/24 08:02 Pulse Ox 95 08/22/24 09:25 Laboratory Results - last 24 hr 08/22/24 06:05 WBC 3.70 L RBC 3.29 L Hgb 8.9 L Hct 28.0 L MCV 85 MCH 27.1 MCHC 31.8 L RDW 15.0 H Plt Count 260 MPV 10.1 Immature Gran % 0.8 Neutrophils % 57.1 Lymphocytes % 25.1 Monocytes % 12.2 Eosinophils % 3.2 Basophils % 1.6 Nucleated RBC % 0.0 Absolute Neutrophils 2.11 Absolute Lymphocytes 0.93 L Absolute Monocytes 0.45 Absolute Eosinophils 0.12 Absolute Basophils 0.06 Sodium 146 H Potassium 4.0 Chloride 112 H Carbon Dioxide 27.3 Anion Gap 6.7 BUN 21 H Creatinine 0.9 Est GFR (CKD-EPI 2020) 66.67 Glucose 80 Calcium 9.2 Magnesium 1.7 L
--- NOTE | 2024-08-22 17:36 | PSYCO_ITS ---
Date of service: 08/22/24 Time of Service: 16:35 Summary Note PSYCHIATRY CONSULT NOTE: INITIAL EVALUATION Date/Time:?08/22/2024 5:26:34 PM Name:Ian Ashton :?1950 Location of the patient:?[facility] IP Consulting [facility] Clinician:?Mary Anne Ocasio Location of the clinician:?[place] SUMMARY 73-year-old female, with history of anxiety disorder, depressive disorder, with no current excessive drug use, no history of self-harming/suicidal behavior/violent behavior, no past psychiatric hospitalizations, admitted to medicine 08/18 for fall, altered mental status, UTI, rhabdomyolysis, dehydration, pneumonia referred to psychiatry for depression. Pt's family repor emmie concern for worsening depression with pt isolating, staying in bed, not going out for doctor appointments, decreased oral intake. In the hospital, pt's mental status has continued to fluctuate. Per notes, initially cognition improved but then pt developed acute change again, was minimally responsive. Was thought to be possible stroke but that was ruled out. Neurology was consulted and seems most likely pt had a seizure event. In addition. Staff reports that the pt's PCP had stopped some of her medications but this was not known so she was receiving incorrect regimen during this admission, could have additionally affected mental status. Meds are now reconciled. Per staff report, earlier today pt was obtunded again, unable to answer any questions. However, this afternoon she is alert and able to engage with staff but mostly responds with one syllable words. On exam, pt is calm, initially cooperative but guarded, does not provide much historical detail. Pt then becomes irritated/defensive and makes derogatory comments about inspector automatic typewriter. Pt does provide some past history but quickly becomes uncooperative with exam, reports having issue with this provider and requests another. Unable to obtain any information regarding current symptoms or to complete full evaluation due to lack of cooperation. Therefore, unable to complete diagnostic assessment or provide specific treatment recommendations. Based on available information, presentation seems to be consistent with delirium and pt confirms prior history of depression and anxiety in addition. Pt has requested to speak with a different provider which may be of benefit, but possibly may yield same result as pt repeatedly stated opinion that she does not require mental health evaluation. Patient possibly meets criteria for inpatient psychiatric hospitalization. Working Diagnoses:? F05 Delirium due to multiple etiologies; F39 Unspecified mood [affective] disorder; F41.9 Anxiety disorder, unspecified CPT Codes:?31207 - Psychiatric Diagnostic Evaluation with Medical Services PLAN Disposition:?patient medically admitted - unable to determine psychiatric disposition Observation level ? Psychiatric 1:1 needed??No psych 1:1 indicated at this time, unable to obtain responses to safety questions directly but per staff report there have been no acute safety issues identified Pharmacological:? * No psychiatric medication recommendations at this time; per staff report pt has been resumed on prior outpatient regimen. Recommend to primary team to reach out to pt's outpatient provider regarding indication for Risperdal prescription, this may provide further insight into pt's past history. * Is patient psychotic? - undetermined Follow up needed while in the hospital??Patient has requested to meet with a different psychiatrist, please feel free to re-consult for that purpose if pt remains agreeable, or as needed for management of behavior or change in mental status.? Other:? * GENERAL GERIATRIC PRECAUTIONS: frequent re-orientation, family contact when possible, maximize uninterrupted periods of sleep, limit staff changes as feasible. Provide patient with assistive devices ie hearing aids/glasses to reduce confusion and disorientation. * Dementia/Delirium: BENZODIAZEPINES, ANTICHOLINERGICS, ANTIHISTAMINES, AND OTHER SEDATING MEDICATIONS, which may PRECIPITATE and worsen delirium * If questions arise about the psychiatric care of this patient, please call the [facility]?to request a follow-up consult. ?Please do not contact me individually through the EMR chat as I am not?regularly logged on to?this system. The psychiatrist for the follow-up visit may be a different psychiatrist Discussed plan with onsite steam trap man:?Yes - Stacey Parra RN HISTORY This evaluation was conducted remotely with the assistance of onsite staff via HIPAA-compliant video call. Patient consented to proceed with the telehealth visit. Requested by:?Inpatient attending provider Sources of information:?Patient, medical record History of Present Illness:? 73-year-old female, unknown living situation, single, unknown employment status, with history of anxiety disorder, depressive disorder, with no current excessive drug use, no history of self-harming/suicidal behavior/violent behavio r, no past psychiatric hospitalizations, admitted to medicine 08/18 for fall, altered mental status, UTI, rhabdomyolysis, dehydration, pneumonia referred to psychiatry for depression, Pt's family reported concern for worsening depression with pt isolating, staying in bed, not going out for doctor appointments, decreased oral intake. UDS not ordered, Alcohol not ordered. In the hospital, pt's mental status has continued to fluctuate. Per notes, initially cognition improved but then pt developed acute change again, was minimally responsive. Was thought to be possible stroke but that was ruled out. Neurology was consulted and seems most likely pt had a seizure event. In addition. PERI Ibarra reports that the pt's PCP had stopped some of her medications but this was not known so she was receiving incorrect regimen during this admission, could have additionally affected mental status. RN reports meds are now reconciled. RN states this morning, pt was obtunded again, unable to answer any questions. However, this afternoon she is alert and able to participate, seems to be at or near baseline at this time. On psychiatric evaluation, pt reports she has no need for assessment but is agreeable to proceed. Pt reports feeling bad today because I hurt all over. Pt does not remember much from the last few days, do you? Pt reports feeling like her normal self currently. Pt endorses history of depression and anxiety but states she is fine currently. While obtaining past history, pt becomes irritated with certain questions, stating, you're confusing me. Manager Produce attempts to clarify for pt and she replies, you're weird. Manager Produce explains reasons for questions asked and tries to simplify and pt replies, lj calhoun. Manager Produce inquires whether pt is agreeable to continue and pt replies, sure if you straighten out. Manager Produce attempts to continue and pt answers a few more questions but then starts saying lj calhoun again, and calls inspector automatic typewriter weird again, does not want to answer questions. Pt states she does not need this. Manager Produce explains that the pt has the right to decline to proceed but reviews the reason for consult and that it is intended to help with any current treatment needs. Pt states she has none and states she would like to end the conversation now. Pt states inspector automatic typewriter makes her uncomfortable. Manager Produce inquires whether pt would like to meet with a different provider and she states she would because again notes opinion that inspector automatic typewriter is weird. Interview was concluded at pt's request. All additional information was gathered from chart review. Collateral Contacted No-- pt declines to complete consult, requests different provider. PSYCHIATRIC REVIEW OF SYSTEMS (symptoms in past two weeks) Pertinent Positives:?unable to assess Pertinent Negatives:?unable to assess PSYCHIATRIC HISTORY Past Psychiatric Diagnoses/Problems:?anxiety disorder, depressive disorder Psychiatric Treatment:?Hospitalizations:?no past psychiatric hospitalizations ???Other Past treatment:?medication management ???Current treatment:?treatment with PCP Drug/Alcohol History ???Current excessive drug/alcohol use:?none ???Past excessive drug/alcohol use:?none ???Treatment:?none ???Withdrawal symptoms:?none ???UDS results:?UDS not ordered ???BAL results:?not ordered Stressors:?unable to assess Trauma:?none Family Psychiatric History:?none HEALTH HISTORY Medical Problems:? hypertension, CKD, KWAME, DJD, h/o CVA, fibromyalgia Is patient linked with PCP??yes Psychiatric and other clinically relevant medications:?Risperdal 1 mg qHS, Zoloft 75 mg daily, Remeron 7.5 mg qHS, Keppra 500 mg IV q12H Allergies/Adverse Medication Reactions:?Bactrim, morphine, codeine, lyrica, neurontin, HCTZ, baclofen, dextromethorphan, chlorthalidone Physical Findings:?head CT negative for acute pathology, MRI brain shows chronic small vessel disease DEMOGRAPHICS/SOCIAL HISTORY Gender:?female Living Situation:?unable to assess Relationship Status:?single Education:?unable to assess Employment:?unable to assess Social Support Network:?daughter Legal History:?unable to assess Special Considerations:?none RISK EVALUATION Suicidality/self-injury:?no history of suicidal/self-harming behavior Primary Suicide Screening (PSS-3) 1. In the past two weeks, have you felt down, depressed, or hopeless??Unable to assess 2. In the past two weeks, have you had thoughts of killing yourself??Unable to assess 3. In your lifetime, have you ever attempted to kill yourself??NO 3a. Within the past 6 months??NO ESS-6 Secondary Screen ( If #2 is yes or #3a is yes within the past 6 months, then complete secondary screen) 1. Positive on PSS-3 questions 2 & 3 ? active suicidal ideation with a past attempt??Screen not applicable 2. Have you been thinking about how you might kill yourself??Screen not a pplicable 3. Have you had some intention of acting on your thoughts??Screen not applicable 4. Lifetime psychiatric hospitalization??Screen not applicable 5. Has drinking or substance abuse ever been a problem for you??Screen not applicable 6. Current irritability, agitation, or aggression??Screen not applicable PSS-3/ESS-6 Secondary Screen Scoring:?PSS-3 screen unable to assess PSS-3/ESS-6 Scoring Interpretation Legend PSS-3 screen incomplete [Blank PSS-3 questions #2 OR #3a] PSS-3 screen unable to assess [Unable to Assess responses on PSS-3 questions #2 AND #3a] Mild [No current attempt AND No suicide plan or intent AND Score (0-2)] Moderate [No current attempt AND Active suicidal ideation with plan or intent (not both) OR Score (3-4)] Severe [Current attempt OR Suicide plan and intent OR Score (5-6)] HI/Violence/Property Destruction:?no history of violent/aggressive behavior Access to Firearms:?none Grave disability/Poor self-care: yes - decreased oral intake Psychosis:?undetermined Protective Factors:?good ability to cope with stress; congregation, spiritual, or moral attitudes against suicide; future orientation; I plan on living my life fine, enjoying my children. High Utilization Criteria:?unknown Signs of Secondary Gain:?none MENTAL STATUS EXAM Appearance and Attire:? Appears stated age, Sitting in chair Psychomotor agitation:?No abnormalities appreciated via video Attitude and behavior:?Initially cooperative but guarded, defensive and eventually uncooperative Speech:?monotone, mostly very brief one word answers Mood:?Neutral Affect:? Flat Thought Process:? Vague, goal-directed Thought content:?unable to assess Perception:?Does not appear to be responding to internal stimuli Intelligence:?unable to assess Abstraction:? [place] Language:? No abnormality, based on limited exam Orientation:? Oriented to person, Unable to assess further due to lack of pt cooperation Sensorium:?Alert Knowledge:?unable to assess Memory:?unable to assess Insight:?unable to assess Judgment:? Impaired in interactions with others, Impaired in responses to current situation and behavior SUMMARY RISK ASSESSMENT Current Suicide Risk Elevated??PSS-3/ESS-6 Scoring: PSS-3 screen unable to assess? Current Violence Risk Elevated??No Issues with ability to care for self.?undetermined, unable to assess Mary Anne Ocasio, DO Psychiatrist, [facility]
[2024-08-22] MEDS: AZITHROMYCIN 250 MG in Normal Saline 250 ML IVPB (20:10)
--- NOTE | 2024-08-22 21:03 | SPP_ITS ---
Date of service: 08/22/24 Time of Service: 16:45 Subjective Tegan was contacted at bedside this date. She was unable to participate in MBSS yesterday or this morning because of increased somnolance and decreased responsiveness. When ZINC PLATE CUTTER contacting her this afternoon/evening, she had just finished a tele-psych consult. Per nursing, Tegan has been coughing consistently with liquid intake this date and during meals. ZINC PLATE CUTTER noting that patient beverages at bedside all have straws in them. Objective/Assessment/Plan Objective Treatment Techniques & Outcomes: Trials Assessed: IDDSI 0 Thin Liquids via straw, self-selected, with cues, and via cup edge self selected IDDSI 2 Mildly Thick Liquids via straw, self selected x1 IDDSI 4 Puree Solid Oral Phase Findings: WFL with textures trialed (more limited this date d/t patient refusal) Pharyngeal Phase Findings: X Delayed swallow initiation (mild) X Cough after swallow (improved with smaller sip sizes, which were more likely to be self-selected appropriately from cup edge than via straw sip) Esophageal Phase Findings: ?No observed or reported symptoms at bedside Assessment Tegan demonstrated difficulty tolerating thin liquids this date (coughing) when sipping from a straw without any cues/reminders. When reminded to take very small sips, cough response was eliminated. She required fewer cues/reminders when sipping from cup edge than with straw. She did try one sip of mildly thick liquids via straw but was unwilling to accept any further trials. She did also tolerate puree (chocolate pudding) with minimal difficulty with oral manipulation/clearance this date, but was unwilling to trial any soft/bite size food afterward. For textures trialled, she overall appears with similar swallow function as prior bedside evaluation earlier this week. Reiterated strict aspiration precautions with nursing including oral care before/after meals, 1:1 supervision with meals, recommendation for no straws, and frequent reminders for small bites/sips and slow pace. Continue to recommend consideration of MBSS while inpatient, as able. Continue to recommend ZINC PLATE CUTTER services via home health or SNF upon discharge to ensure carryover and establishment of aspiration precautions/diet recomme ndations in discharge environment. Diet Recommendations: ? SOLIDS: 6-Soft & Bite-Sized Solids - added sauces/gravies. Ensure meats and veggies are very tender/mashable with fork per IDDSI guidelines. LIQUIDS: 0-Thin Liquids (NO STRAWS) MEDICATIONS: Whole With 4-Purees Alter medications only as advised by MD or Pharmacist RISK MANAGEMENT: Level of Assistance/Supervision: 1:1 Assistive feeding only by trained staff/family Positioning and environment: PO intake only when awake/alert? Reduce auditory and/or visual distractions when eating Up to chair Oral hygiene Before/after PO intake Using friction with toothbrush on all oral structures as tolerated Strategies/Adaptations/Assistive Equipment: Small sips - 1 at a time via CUP EDGE (no straws) Small bites Slow rate of intake Cue intermittent throat clear during meals Swallow food before taking a sip. Reflux Precautions: Maintain fully upright position at least 30 minutes after meals Sleep with head of bed elevated to reduce likelihood of nocturnal reflux Plan Plan: Frequency: 2-3x/week for 1-2 weeks Goals: Outbound Telemarketing Representative Goals: Patient will remain free from aspiration-related illness, malnutrition, and dehydration. Short Term Goals: Patient will tolerate Soft/bite size Diet and Thin liquids without overt s/s aspiration across 2/2 visits. Patient will tolerate PO trials for consideration of diet upgrade without overt s/s aspiration across 2/2 visits. Time spent: 16:45-17:05 (20 min)
--- NOTE | 2024-08-22 21:54 | NUR.NOTE ---
Patient refused most meds stating I don't need that also patient refused IV meds and pulled IV out. Nursing Note:
[2024-08-23 07:31] VITALS: BP 170/76; PULSE 63; RESP 14; TEMP 36.7; O2SAT 96
[2024-08-23] MEDS: amLODIPine 10 MG TAB PO (07:43)
[2024-08-23] MEDS: Pantoprazole 40 MG TABCR PO (07:43)
[2024-08-23] MEDS: Aspirin E.C. 81 MG TABEC PO (07:43)
[2024-08-23] MEDS: oxyCODONE-CR 20 MG TABCR PO (07:44)
[2024-08-23] MEDS: Sertraline 25 MG TAB 75 MG PO (07:44)
[2024-08-23] MEDS: Famotidine 20 MG TAB PO (07:45)
[2024-08-23] MEDS: Meloxicam 15 MG TAB PO (07:48)
--- NOTE | 2024-08-23 09:00 | PT.INTREAT ---
PT Notes Visit Reasons: UTI, Rhadbo, Pneumonia Inpatient Physical Therapy Treatment Note [facility] Date: 08/23/2024 PRECAUTIONS: High Fall risk. Activity as tolerated. Impaired safety awareness. SUBJECTIVE: Tegan is sitting up to chair at initiation of session. Verbalizes pain and touches RUE. Smiles and nods in agreement to PT. OBJECTIVE: Mental status: Alert throughout session. Responds primarily with single words (pain and cold predominantly), however does utilize full sentences at times. Asks PT what did you write? after mobility is documented on white board, and states thank you various times throughout session. ? Pain: RUE VITALS: Closely monitored by nursing staff BED MOBILITY: Moderate cueing provided for use of B hands as needed for support, movement sequence, AD management, and posture to reduce fall risk and minimize pain report Sit to stand supervision with FWW, cues for hand placement Stand to sit SBA with FWW, cues for hand placement sit-supine: min A to LEs to complete, but otherwise independent. Able to scoot in bed independently for repositioning, with use of cues throughout THERA EX: Ankle pumps 10x heel slides 10x, with need for intermittent cues to continue movement. For last 5 reps on left side, requires min A to correct motion seated march 10x LAQ 10x each bridge x 3 (discontinued, with patient stating too tired.) THERACT: instructed in sit-stand transfers, with cues for hand placement and technique. Completed transfers x 6 throughout course of session, with need for occasional cues sit-supine transfers, with cues for LE placement. Requires min A to LEs to complete transfer Ambulation: Ambulates 40'x1, CGA, FWW, no cues; 15'x2 FWW CGA Balance: Static sitting: Good Dyanmic sitting: Fair Static standing: Fair Dynamic standing: Fair ASSESSMENT: Improved participation today vs yesterday. Requiring CGA-min A for mobility, and more communicative during session. PLAN: Continue with functional mobility progression, strength and balance skilling as tolerated. DISCHARGE RECOMMENDATION: SNF vs LTC based on mobility trajectory and safety awareness level TREATMENT CODE/TIME: [id number] ([id number], [id number])
[2024-08-23 11:24] VITALS: BP 151/72; PULSE 53; RESP 12; TEMP 36.9; O2SAT 96
[2024-08-23] MEDS: levETIRAcetam 500 MG TAB PO (12:06)
[2024-08-23] MEDS: levoFLOXacin 250 MG TAB PO (12:06)
--- NOTE | 2024-08-23 15:14 | PTTR_ITS ---
PT Notes Visit Reasons: UTI, Rhadbo, Pneumonia Inpatient Physical Therapy Treatment Note [facility] Date: 08/23/2024 (PM session) PRECAUTIONS: High Fall risk. Activity as tolerated. Impaired safety awareness. SUBJECTIVE: Tegan is resting in bed at initiation of session. States that her right arm hurts. She states that she will not walk this afternoon because it bothers her arm too much. She's agreeable to sitting at edge of bed. OBJECTIVE: Mental status: Alert throughout session. Oriented to person and place. Able to recall distant history, recalling previous PT and her therapist at the time. Remains redundant with history, and unable to recall this therapist after leaving the room to obtain HEP handout. ? Pain: RUE VITALS: Closely monitored by nursing staff BED MOBILITY: supine-sit: CGA Sit to stand : refuses multiple times, despite encouragement sit-supine: supervision rolling in bed: supervision, assist to position pillow to RUE THERA EX: AAROM right shoulder. Instructed in self completion. Tolerates 135* flexion. AROM elbow flexion/extension 10x AROM wrist flexion/extension 10x Provided with hand out for home completion of these activities. Ambulation: refuses Balance: Static sitting: Good Dyanmic sitting: Fair Static standing: Fair Dynamic standing: Fair AMPAC: Raw Score 20 Standardized Score: 4.06 CMS 36% impairment ASSESSMENT: Improving participation, but with continued concerns for safety awareness. AM- PAC scores have improved to be supportive of return home, however, due to cognitive status and limitations in safety awareness, patient remains at increased risk for falls. PLAN: Continue with functional mobility progression, strength and balance skilling as tolerated. DISCHARGE RECOMMENDATION: Home with family and caregiver support TREATMENT CODE/TIME: [id number] ([id number])
[2024-08-23 15:21] VITALS: BP 134/69; PULSE 64; RESP 15; TEMP 36.4; O2SAT 96
--- NOTE | 2024-08-23 15:55 | PDOC.CMDIS ---
Date of service: 08/23/24 Time of Service: 15:55 LACE Index Scoring Tool Questions: Length of Stay (in days): 4 - 6 Was the patient admitted via the E.D.?: Yes Comorbidities: Cerebrovascular Disease E.D. Visits: 3 Answers: Total Score: 11 Risk of Readmission: High Risk Care Management Discharge Plan Reason for Hospitalization: UTI, rhabdo, pneumonia Discharge Plan: Tegan is discharged home with resumption of caregiver services and orders for [facility] RN/PT/OT/CANE FLUME FEEDING MACHINE OPERATOR. She will follow up with her community providers and plan of care as directed. Family will provide transportation. Patient/Family Education Needs: Review discharge instructions, limitations and plan to follow up after discharge. Discuss ask me three. Services Needed at Discharge: Home Health Care Services ([facility] RN/PT/OT/CANE FLUME FEEDING MACHINE OPERATOR) SDOH Health Related Social Needs: No Data to Display
--- NOTE | 2024-08-23 17:03 | PDOC.HHF2F_ITS ---
Home Health Referral Home Health Orders Clinical synopsis of why skilled professionals are needed: This 73 years old female patient with past medical history of CVA, KWAME, CKD, anemia, hypertension presented to the ED on 08/18/24 status post fall via EMS after being found on the floor by her home health care provider without obvious etiology for fall. The patient complained of pain to her right shoulder and left knee and generalized body ache to neck, back, right side of the chest and right pain. Workup in the ED was positive for nitrate in urine, BUN of 32 with a creatinine of 1.0, CPK of 615, first troponin negative with an EKG showing no signs of coronary occlusion. Imaging showed 1 cm nodular infiltrate to the right upper lobe, right middle lobe infiltrate, dilated bilateral biliary tree with prior cholecystectomy possible cystic neoplasm with recommendation for pancreatic protocol MRI. Head CT only showed acute finding of increased bilateral basal ganglia calcification which is status post consultation with [facility] neurology is unlikely to be related to fall but do recommend MRI in the morning. The patient will be admitted to the medical surgical floor by the hospitalist team for evaluation and management of UTI, pneumonia, rhabdo. The patient initially refused MRI and upon discussion with Dr. Kang from [facility] neurovascular, lesions in the basal ganglia were mostly age-related without any further follow-up needed as the patient had resolved her AMS. The patient continued to be treated with azithromycin and ceftriaxone which was later transitioned to cefepime due to findings of Pseudomonas in her urine. During the stay the patient had a second episode of altered mental status similar to her presentation to the ED. Head CT and MRI showed no acute finding status post tele-neurology consultation with [facility] and Dr. Worthington, recommendations made to complete Keppra loading dose and ongoing Keppra twice a day for most likely seizures and ongoing postictal state. Recommendations for low-dose high-intensity statin and ASA due to past CVA. The patient refused psychiatric evaluation requesting new provider. The daughter reported to nursing that the patient had severe depression. Remeron was initiated due to poor oral intake and will need to be adjusted as per primary care practitioner. The patient appears to be at baseline today. The patient will be discharged home with home health physical therapy, nursing, occupational therapy, and certified medical records coder. The patient at ongoing nursing care at home but will need assistance maintaining compliance with her medicine. She will be discharged on daily twice Keppra and short course of levofloxacin. The patient will need follow-up with neurology and her PCP to discuss subsequent studies based on pulmonary and pancreatic findings on imaging mentioned above. Will complete her [facility] pulmonology and endocrinology referrals. Discussed with Dr. Key Registered Nurse: Check all that apply Instruct on new or changed medication(s)/assess compliance: Ordered Assess for exacerbation of medical condition, instruct patient/caregivers on signs and symptoms to report for early detection: Ordered Physical Therapist: Check all that apply Increase strength & endurance for safe mobility at home: Ordered To design/establish home maintenance program: Ordered Fall reduction therapy program for patient with history of frequent falls: Ordered Home safety evaluation and teaching/gait training including stair management (if applicable): Ordered Occupational Therapist: Evaluate and treat for patient unable to perform ADL/IADL/self-care: Ordered Upper extremity strengthening, range and motion: Ordered Fish Drier: Assist with community resources: Ordered Assist with longterm care planning: Ordered Home Bound Status Requires the aid of supportive device (check all that apply): Walker Describe why leaving home would require a considerable and taxing effort: Requires frequent rest periods Encounter Date and Reason: I certify that a FTF encounter for this patient was performed on August 23, 2024 and that such encounter was related to the primary reason the patient requires home health services. The encounter was conducted in the following manner: * By me as the certifying physician, AIR CONDITIONING SPECIALIST, PA or * By an inpatient physician, AIR CONDITIONING SPECIALIST or PA during an inpatient stay who communicated findings to me, Certification And Authentication I certify that I composed the above information based on my clinical judgment relating to this patient's medical condition and, if applicable, clinical findings communicated to me by the NPP or inpatient physician who performed the FTF encounter. Name of Provider that will be monitoring home health services: Marixa Kurtz
== END 2024-08-23 17:19 | disposition home health service (06) | DRG 689 ==
LOC: ER 17:48 → MS 18:59
PROVIDERS: Admitting Provider Family Medicine; Emergency Provider Emergency Medicine; PCP Family Medicine; Responsible Provider Nurse Practitioner Acute Care; Visit Provider Family Medicine
DX: N39.0 Urinary tract infection, site not specified (principal); J18.9 Pneumonia, unspecified organism; M62.82 Rhabdomyolysis; F05 Delirium due to known physiological condition; N17.9 Acute kidney failure, unspecified; R64 Cachexia; Z68.1 Body mass index [BMI] 19.9 or less, adult; I67.89 Other cerebrovascular disease; W19.XXXA Unspecified fall, initial encounter; E86.0 Dehydration; F41.9 Anxiety disorder, unspecified; F32.A Depression, unspecified; R56.9 Unspecified convulsions; R11.2 Nausea with vomiting, unspecified; G47.33 Obstructive sleep apnea (adult) (pediatric); D64.9 Anemia, unspecified; Z86.73 Personal history of transient ischemic attack (TIA), and cerebral infarction without residual deficits; I12.9 Hypertensive chronic kidney disease with stage 1 through stage 4 chronic kidney disease, or unspecified chronic kidney disease; K44.9 Diaphragmatic hernia without obstruction or gangrene; K57.30 Diverticulosis of large intestine without perforation or abscess without bleeding; M79.7 Fibromyalgia; N18.30 Chronic kidney disease, stage 3 unspecified; M17.0 Bilateral primary osteoarthritis of knee; Z96.642 Presence of left artificial hip joint; Z98.1 Arthrodesis status; R40.2423 Glasgow coma scale score 9-12, at hospital admission; Z79.891 Long term (current) use of opiate analgesic; B96.5 Pseudomonas (aeruginosa) (mallei) (pseudomallei) as the cause of diseases classified elsewhere; Z66 Do not resuscitate; G89.11 Acute pain due to trauma; M25.511 Pain in right shoulder; M25.562 Pain in left knee
CPT/HCPCS: 00123; 36415; 51702; 73562; 74177; 80048; 80053; 82550; 82805; 87077; 92526; 92610; 93005; 96361; 96365; 96375; 97110; 97112; 97162; 97530; 99285; J1650; 70450; 70551; 71260; 72125; 73030; 73080; 73110; 81003; 81015; 83735; 84484; 85025; 85610; 87086; 87186; 93010; 94667; 94760; 99223; 99233; 99239; 99291; J0131; J0456; J0692; J0696; J0780; J1953; J2060; J2470; J3490

== ENCOUNTER 2024-08-26 14:43 | Emergency (ER) | payer MEDICARE, MEDICAID, SELFPAY ==
[2024-08-26] VITALS (30 sets, daily range): BP systolic 145–170; BP diastolic 64–91; PULSE 39–77; RESP 12–25; TEMP 36.6; O2SAT 92–96
--- NOTE | 2024-08-26 14:30 | RT.EKG_ITS ---
APPROVED REPORT Exam: Resting ECG Reason for Exam: altered mental status Patient Location: E HR:72 bpm ECG Measurements Heart Rate 72 AXIS AR 179 P 64 QRSd 91 QRS 17 QT 413 T 58 QTc 455 Conclusion Sinus rhythm 72 normal axis PVC no stemi
--- NOTE | 2024-08-26 14:45 | DI.CT_ITS ---
Exam(s) CT HEAD WO EXAM: CT HEAD WO CLINICAL HISTORY: ams. TECHNIQUE: Imaging Protocol: Axial computed tomography images with coronal and sagittal reformatted images were created and reviewed COMPARISON: CT CT HEAD WO from 08/21/2024 FINDINGS: There are no skull fractures. There is no fluid in the visualized paranasal sinuses. Again noted is a previously described large area of hypodensity encephalomalacia in the right occipit al lobe, unchanged from prior studies and consistent with nonacute right occipital lobe infarct. The re is heavy calcification within the right vertebral artery And basilar artery again noted. Also calcification again noted within the internal carotid arteries at the skull base-cavernous sinuses and right supraclinoid ICA. There are no new findings in the cerebellar hemispheres nor within the david and midbrain. A nonhemor rhagic unchanged lacunar infarct is again noted in the posterior aspect of the right thalamus. Left thalamus unremarkable. There is also again noted abundant bilateral periventricular hypodensity cons istent with chronic small vessel disease and small bilateral lacunar infarcts are again noted. No ne w infarcts evident. IMPRESSION: Multilevel ischemic findings as described above including non recent right occipital lobe infarct and abundant bilateral white matter ischemic changes with bilateral multiple lacunar infarcts. However, there is no significant change compared to the CT scan of 08/21/2024. If clinically indicated follo w-up MRI with diffusion imaging can be performed. Report called by myself to ER physician 08/26/2024 at 5 p.m RADIATION DOSE DELIVERED: 844.07mGy.cm Total DLP DATA REPOSITORY: All CT scans at this facility are submitted to the National Radiology Data Registry (NRDR) Dose Index Registry (DIR) with the [employer] ([employer]). RADIATION OPTIMIZATION: All CT scans at this facility use at least one of these dose optimization te chniques: automated exposure control; mA and/or kV adjustment per patient size (includes targeted exa ms where dose is matched to clinical indication); or iterative reconstruction.
--- NOTE | 2024-08-26 14:45 | RT.EKG_ITS ---
APPROVED REPORT Exam: Resting ECG Reason for Exam: vital change Patient Location: E HR:75 bpm ECG Measurements Heart Rate 75 AXIS CA 182 P 57 QRSd 89 QRS 19 QT 433 T 63 QTc 484 Conclusion Sinus rhythm 75 bigeminy
--- NOTE | 2024-08-26 15:12 | W.ED.GENAD ---
Discharge Plan Disposition Patient Disposition: Home Discharge Details Clinical Impression: Trouble talking Primary Care Provider: Marixa Kurtz ED Provider: Kassy Patricio Home Meds and New Rx's Prescriptions: No Action aspirin 81 mg tablet,delayed release (DR/EC) 81 mg PO DAILY omeprazole 40 MG capsule,delayed release(DR/EC) 40 mg PO DAILY vitamin B complex Tablet 1 tab PO DAILY lorazepam [Ativan] 1 mg tablet 1 mg PO DAILY PRNQty: 10 0RF sennosides [senna] 8.6 mg tablet 8.6 mg PO QPM amlodipine 10 mg tablet 10 mg PO DAILY naloxone 4 mg/actuation spray,non-aerosol 4 mg INTRANASAL ONCE PRN Patient Comments: ADMINISTER 1 SPRAY INTO ONE NOSTRIL A SINGLE DOSE NEEDED FOR EXCESSIVE SEDATION nitrofurantoin monohyd/m-cryst 100 mg capsule 100 mg PO DAILY ondansetron HCl 4 mg tablet 4 mg PO BID PRN (Reason: nausea and vomiting) Patient Comments: TAKE ONE TABLET BY MOUTH TWICE A DAY BEFORE MEALS FOR NAUSEA risperidone 1 mg tablet 1 mg PO .Bedtime Patient Comments: TAKE ONE TABLET BY MOUTH AT BEDTIME cannabidiol (CBD) oral edible 1 tab PO PRN PRN oxycodone [OxyContin] 40 mg tablet,oral only,ext.rel.12 hr 40 mg PO BID folic acid 1 mg tablet 1 mg PO DAILY levetiracetam 500 mg Tablet 500 mg PO BID Qty: 60 0RF mirtazapine 15 mg Tablet 7.5 mg PO HS Qty: 30 0RF atorvastatin 20 mg Tablet 20 mg PO QPM Qty: 30 0RF Discharge Instructions Additional Instructions: You came to the hospital because you were not speaking as much as you normally do, but workup today seems consistent with your discharge condition. You do not have signs of electrolyte derangement or an acute infection. You have no signs of a urine infection now but should continue the antibiotic that was prescribed when you were discharged. Your head CT does not demonstrate any changes. At this time you are discharged home to to resume the care that was initiated upon discharge from the hospital. HPI General Date/Time Provider Initiated Documentation: 08/26/24 14:54. Limitations to Documentation: altered mental status. Information obtained by: RN/MD, EMS and old records reviewed. HPI Narrative: 73-year-old female with past medical history including CVA, KWAME, CKD, hypertension, presents for evaluation of altered mental status. Her home health care worker today called EMS and stated that she was not speaking normally. She normally is very feisty but today she is only speaking in one-word sentences. Per medical record review, patient had recent hospitalization and was discharged from the hospital on August 23. At that time she presented with a fall after being found on the floor. Her workup was consistent with a urinary tract infection at that time she was oriented to self only. Today she is only saying cold and pain and no IV Related Data Home Medications ?Medication ?Instructions ?Recorded ?Confirmed omeprazole 40 mg capsule,delayed 40 mg PO DAILY 05/19/14 08/26/24 release vitamin B complex 1 tab PO DAILY 01/05/20 08/26/24 aspirin 81 mg tablet,delayed 81 mg PO DAILY 06/23/21 08/26/24 release amlodipine 10 mg tablet 10 mg PO DAILY 01/14/22 08/26/24 sennosides 8.6 mg tablet (senna) 8.6 mg PO QPM 01/14/22 08/26/24 naloxone 4 mg/actuation nasal spray 4 mg intranasal ONCE PRN 07/16/23 08/26/24 lorazepam 1 mg tablet (Ativan) 1 mg PO DAILY PRN #10 tabs 04/24/24 08/26/24 cannabidiol (CBD) oral edible 1 tab PO PRN PRN 08/18/24 08/26/24 nitrofurantoin 100 mg PO DAILY 08/18/24 08/26/24 monohydrate/macrocrystals 100 mg capsule ondansetron HCl 4 mg tablet 4 mg PO BID PRN nausea and vomiting 08/18/24 08/26/24 risperidone 1 mg tablet 1 mg PO .Bedtime 08/18/24 08/26/24 oxycodone 40 mg tablet,crush 40 mg PO BID 08/19/24 08/26/24 resistant,extended release 12 hr (OxyContin) atorvastatin 20 mg tablet 20 mg PO QPM #30 tabs 08/23/24 08/26/24 folic acid 1 mg tablet 1 mg PO DAILY 08/23/24 08/26/24 levetiracetam 500 mg tablet 500 mg PO BID #60 tabs 08/23/24 08/26/24 mirtazapine 15 mg tablet 7.5 mg (1/2 x 15 mg) PO HS #30 tabs 08/23/24 08/26/24 Previous Rx's ?Medication ?Instructions ?Recorded lorazepam 1 mg tablet (Ativan) 1 mg PO DAILY PRN #10 tabs 04/24/24 atorvastatin 20 mg tablet 20 mg PO QPM #30 tabs 08/23/24 levetiracetam 500 mg tablet 500 mg PO BID #60 tabs 08/23/24 mirtazapine 15 mg tablet 7.5 mg (1/2 x 15 mg) PO HS #30 tabs 08/23/24 Allergies Allergy/AdvReac Type Severity Reaction Status Date / Time sulfamethoxazole (From Allergy Diarrhea Verified 08/18/24 12:04 Bactrim) trimethoprim (From Bactrim) Allergy Diarrhea Verified 08/18/24 12:04 morphine AdvReac Intermediate Psychosis Unverified 08/18/24 12:04 baclofen AdvReac Unknown Unknown Unverified 08/18/24 12:04 chlorthalidone AdvReac Unknown Unknown Unverified 08/18/24 12:04 codeine AdvReac Unknown Unknown Unverified 08/18/24 12:04 dextromethorphan AdvReac Unknown Unknown Unverified 08/18/24 12:04 gabapentin (From Neurontin) AdvReac Unknown Unknown Unverified 08/18/24 12:04 hydrochlorothiazide AdvReac Unknown Unknown Unverified 08/18/24 12:04 pregabalin AdvReac Unknown Dopey Unverified 08/18/24 12:04 General Stated Complaint: AMS/LOC LOLITA: 3 Exam Narrative Exam Narrative: Review of Systems: All systems reviewed & are unremarkable except as noted in HPI and below Frail, ill-appearing s NCAT RRR no murmur, Unlabored respiratory effort, clear bilaterally Nondistended abdomen , nontender no focal neurologic deficits-speaking 1 word answers at a time, able to identify objects and follow commands Bilateral upper extremities with bruising likely from IV sticks Course Vital Signs Vital signs: Vital Signs Temperature 36.6 C 08/26/24 14:46 Pulse 76 08/26/24 14:46 Respiratory Rate 16 08/26/24 14:46 Blood Pressure 167/90 H 08/26/24 14:46 Pulse Oximetry 92 08/26/24 14:46 Temperature 36.6 C 08/26/24 14:52 Pulse 76 08/26/24 14:52 Respiratory Rate 16 08/26/24 14:52 Blood Pressure 167/90 H 08/26/24 14:52 Pulse Oximetry 92 08/26/24 14:52 Pain Level 0 08/26/24 14:52 Medical Decision Making Emergent evaluation of altered mental status. History is significantly limited and patient is unable to provide additional history. Per her discharge summary from August 23, she had discharge diagnosis of UTI, altered mental status, fall pneumonia rhabdomyolysis and dehydration. During her stay in the hospital she had an episode of altered mental status and teleneuro evaluation was concerning for possible seizure activity she was loaded with Keppra. The patient was returned to baseline and was discharged home with home health physical therapy, nursing, Occupational Therapy and a electromedical service engineer. She was discharged on Keppra and levofloxacin. Based on nursing report and description of the patient, her discharge condition appears to be consistent with the condition that she is presenting with at this time. On review of arrival to the emergency department, it is unclear how far off the patient's baseline she may be. There is no reported seizure activity. Will reevaluate lab work, for electrolyte abnormality, urinary tract infection. Will repeat head CT and reevaluate symptoms Lab work reviewed. There is some leukopenia consistent with prior evaluations, anemia is stable with baseline. No electrolyte derangement. Ammonia is not elevated. Troponins are not elevated. Thyroid function is within normal limits. Her albumin is low, this is not acute. She has no evidence of infection on urinalysis, her head CT was compared to prior and there is no acute change. The daughter spoke with our nurse who stated that she sure that this is behavioral that she does this so that she can get taken back to the hospital and then her children will have to come visit her. The patient's ability to speak seemed to improve and she was wringing the call spence and asking for things with fluid speech. At this time I see no indication for hospitalization at this time. She has multiple services set up and in place for her home care. Her son was able to come and pick her up and she is discharged in stable condition. Quality:SDOH Health Related Social Needs: No Data to Display PFSH All Active Problems (Updated 08/26/24 @ 18:16 by Kassy Patricio MD) Trouble talking (Acute) Seizure (Acute) Psychiatric symptoms (Acute) Acute UTI (Acute) Acute kidney injury superimposed on CKD (Acute) Ambulatory dysfunction (Acute) Lives in longterm (Acute) Deficit in activities of daily living (ADL) (Acute) Closed fracture of distal end of radius (Acute) Palliative care patient (Acute) Closed fracture of left distal radius (Acute) Closed fracture of right distal radius (Acute) Heart murmur (Acute) Depression (Chronic) At high risk for skin breakdown (Acute) Periorbital edema (Acute) Hiatal hernia (Chronic) moderate Coronary artery calcification seen on CAT scan (Acute) Diverticula of colon (Acute) DJD (degenerative joint disease), lumbar (Acute) History of CVA (cerebrovascular accident) (Acute) remote Fracture of both wrists (Acute) Goiter (Acute) Fibromyalgia (Chronic) KWAME (obstructive sleep apnea) (Chronic) Chronic pain (Chronic) Movement disorder (Acute) Chronic renal insufficiency, stage III (moderate) (Acute) Anemia (Chronic) Hypertension (Chronic) Medical History Primary osteoarthritis of left knee We will see the patient back in 4-1/2 months for possible repeat Synvisc 1 in her left knee would consider x-ray in her right knee if she is still significantly symptomatic Osteoarthritis of right knee Steroid injection: 04/05/2020 Has had previous viscosupplementation injections. 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) As treatment for a femoral neck fracture (DOI: 09/16/2020) History of back surgery Hx of cholecystectomy Social History Smoking/Tobacco Use Status: Never Smoking risk assessment performed?: Yes Alcohol Intake: never Drug use: Never Substance use type: does not use Housing: apartment Do you feel safe at home: Yes Do you feel safe in your relationship?: Yes Additional Social history: lives alone, has caregiver that come 7 days a week, do all the meds
[2024-08-26 15:40] LABS: Abs Immature Grans 0.01 10^3/uL (0.0-0.06); Absolute Basophil Count 0.03 10^3/uL (0.0-0.2); Absolute Eosinophil Count 0.14 10^3/uL (0.0-0.7); Absolute Lymphocyte Count 0.71 10^3/uL (1.2-3.4); Absolute Neutrophil Count 2.09 10^3/uL (1.2-6.7); Basophils % 0.8 %; Eosinophils % 3.9 %; HCT 28.8 % (36.0-46.0); HGB 9.2 g/dL (11.2-15.7); Immature Grans % 0.3 %; Lymphocytes % 19.8 %; MCH 27.1 pg (27.0-33.0); MCHC 31.9 % (32.0-36.0); MCV 85 fL (80-95); MPV 9.7 fL (8.0-11.0); Monocytes % 16.8 %; Neutrophils % 58.4 %; Platelet Count 266 10^3/uL (130-400); RDW 15.1 % (11.7-14.6); RDW-SD 46.2 fL; WBC 3.58 10^3/uL (4.4-10.8)
[2024-08-26 16:04] LABS: ALT 48 U/L (14-59); AST 40 U/L (15-37); Albumin 2.5 g/dL (3.4-5.0); Alkaline Phosphatase 61 U/L (46-116); Anion Gap 7.4 mmol/L (3-11); BUN 17 mg/dL (7-18); Bilirubin, Total 0.4 mg/dL (0.2-1.0); CO2 29.6 mmol/L (21.0-32.0); CREATININE 0.9 mg/dL (0.55-1.02); Calcium 9.1 mg/dL (8.5-10.1); Chloride 108 mmol/L (98-107); Creatine Kinase 30 U/L (26-192); Estimated GFR 66.67 (mL/min/1.73m2); Glucose 90 mg/dL (74-106); Magnesium 1.9 mg/dL (1.8-2.4); Potassium 3.9 mmol/L (3.5-5.1); Sodium 145 mmol/L (136-145); Total Protein 7.3 g/dL (6.4-8.2); Troponin I 14 ng/L (<or=51)
[2024-08-26 16:17] LABS: Ammonia < 10 umol/L (11-32)
[2024-08-26 16:39] LABS: Troponin I 15 ng/L (<or=51)
[2024-08-26 17:00] LABS: Bilirubin Negative (Negative); Blood Negative (Negative); Clarity Sl Cloudy (Clear); Glucose Negative (Negative); Ketones Negative (Negative); Leukocyte Esterase Negative (Negative); Nitrite Negative (Negative); Specific Gravity 1.025 (1.005-1.025); Urobilinogen 0.2 mg/dL (Up to 0.2)
[2024-08-26 17:12] LABS: Bacteria Negative HPF (Negative); C & S Indicated? No; Crystals Many Amorphous HPF (Negative); Epithelial Cells Rare HPF (Negative); Mucus Negative (Negative); Other Cells Few Transitional (Negative); RBC 0-2 HPF (0-2); WBC 0-2 HPF (0-5)
[2024-08-29 16:27] LABS: Levetiracetam 23.4 mcg/mL
== END 2024-08-26 18:46 | disposition home or self-care (01) ==
PROVIDERS: Emergency Provider Emergency Medicine; PCP Family Medicine
DX: R47.89 Other speech disturbances (principal); I10 Essential (primary) hypertension; Z86.73 Personal history of transient ischemic attack (TIA), and cerebral infarction without residual deficits; Z98.1 Arthrodesis status
CPT/HCPCS: 80053; 82550; 93005; 99284; 70450; 80177; 81003; 81015; 82140; 83735; 84443; 84484; 85025; 93010

== ENCOUNTER 2024-08-28 20:58 | Observation (INO) | payer MEDICARE, MEDICAID, SELFPAY ==
[2024-08-28] VITALS (30 sets, daily range): BP systolic 130–155; BP diastolic 63–88; PULSE 76–93; RESP 8–24; TEMP 37.2; O2SAT 94–98
--- NOTE | 2024-08-28 21:03 | ED.GENADUL_ITS ---
Discharge Plan Disposition Patient Disposition: Home Condition: Fair Discharge Details Clinical Impression: Falls frequently, Weakness Primary Care Provider: Marixa Kurtz ED Provider: Bela Goel Home Meds and New Rx's Prescriptions: Continued aspirin 81 mg tablet,delayed release (DR/EC) 81 mg PO DAILY omeprazole 40 MG capsule,delayed release(DR/EC) 40 mg PO DAILY vitamin B complex Tablet 1 tab PO DAILY lorazepam [Ativan] 1 mg tablet 1 mg PO DAILY PRNQty: 10 0RF sennosides [senna] 8.6 mg tablet 8.6 mg PO QPM amlodipine 10 mg tablet 10 mg PO DAILY naloxone 4 mg/actuation spray,non-aerosol 4 mg INTRANASAL ONCE PRN Patient Comments: ADMINISTER 1 SPRAY INTO ONE NOSTRIL A SINGLE DOSE NEEDED FOR EXCESSIVE SEDATION nitrofurantoin monohyd/m-cryst 100 mg capsule 100 mg PO DAILY ondansetron HCl 4 mg tablet 4 mg PO BID PRN (Reason: nausea and vomiting) Patient Comments: TAKE ONE TABLET BY MOUTH TWICE A DAY BEFORE MEALS FOR NAUSEA risperidone 1 mg tablet 1 mg PO .Bedtime Patient Comments: TAKE ONE TABLET BY MOUTH AT BEDTIME cannabidiol (CBD) oral edible 1 tab PO PRN PRN oxycodone [OxyContin] 40 mg tablet,oral only,ext.rel.12 hr 40 mg PO BID folic acid 1 mg tablet 1 mg PO DAILY levetiracetam 500 mg Tablet 500 mg PO BID Qty: 60 0RF mirtazapine 15 mg Tablet 7.5 mg PO HS Qty: 30 0RF atorvastatin 20 mg Tablet 20 mg PO QPM Qty: 30 0RF Discharge Instructions Instructions: Preventing falls in adults, Weakness ED Additional Instructions: This time your labs are largely at your baseline. No evidence for acute fractures at this time. Please discuss with your primary care provider some more frequent in home care, assisted living or rehabilitation. Discuss this with your family. Follow up with primary care provider in 3-5 days. Return to ED sooner if any worsening or concerns. Referrals: Marixa Kurtz [Primary Care Provider] - 3 days HPI General Mode of arrival: EMS . Date/Time Provider Initiated Documentation: 08/28/24 21:25 . Limitations to Documentation: no limitations . Information obtained by: patient, EMS, RN notes reviewed and old records reviewed . HPI Narrative: 73-year-old female with a past medical history of dehydration rhabdomyolysis, osteoarthritis recurrent UTIs chronic renal insufficiency, hypertension presents to the ER for the second time in 48 hours with recurrent falls. EMS reports that they have gone to her home twice today for falls. They also report that they are called out to her at home multiple times for assistance with activities of daily living. She does live alone. She was found in between her bed and some other items in her home on her right side she was soaked in urine. She is ANO x 4 but appears at her baseline confused state. She does use a cane and a walker to ambulate normally. She does remember following she said she bumped her head. She has multiple bruises noted on her arms from previous IV sticks. EMS reports that she was found with her right arm behind her back. Pelvis is stable, no obvious deformity noted distal CMS intact she is able to bend her knees. She does appear cachectic. Related Data Home Medications ?Medication ?Instructions ?Recorded ?Confirmed omeprazole 40 mg capsule,delayed 40 mg PO DAILY 05/19/14 08/26/24 release vitamin B complex 1 tab PO DAILY 01/05/20 08/26/24 aspirin 81 mg tablet,delayed 81 mg PO DAILY 06/23/21 08/26/24 release amlodipine 10 mg tablet 10 mg PO DAILY 01/14/22 08/26/24 sennosides 8.6 mg tablet (senna) 8.6 mg PO QPM 01/14/22 08/26/24 naloxone 4 mg/actuation nasal spray 4 mg intranasal ONCE PRN 07/16/23 08/26/24 lorazepam 1 mg tablet (Ativan) 1 mg PO DAILY PRN #10 tabs 04/24/24 08/26/24 cannabidiol (CBD) oral edible 1 tab PO PRN PRN 08/18/24 08/26/24 nitrofurantoin 100 mg PO DAILY 08/18/24 08/26/24 monohydrate/macrocrystals 100 mg capsule ondansetron HCl 4 mg tablet 4 mg PO BID PRN nausea and vomiting 08/18/24 08/26/24 risperidone 1 mg tablet 1 mg PO .Bedtime 08/18/24 08/26/24 oxycodone 40 mg tablet,crush 40 mg PO BID 08/19/24 08/26/24 resistant,extended release 12 hr (OxyContin) atorvastatin 20 mg tablet 20 mg PO QPM #30 tabs 08/23/24 08/26/24 folic acid 1 mg tablet 1 mg PO DAILY 08/23/24 08/26/24 levetiracetam 500 mg tablet 500 mg PO BID #60 tabs 08/23/24 08/26/24 mirtazapine 15 mg tablet 7.5 mg (1/2 x 15 mg) PO HS #30 tabs 08/23/24 08/26/24 Previous Rx's ?Medication ?Instructions ?Recorded lorazepam 1 mg tablet (Ativan) 1 mg PO DAILY PRN #10 tabs 04/24/24 atorvastatin 20 mg tablet 20 mg PO QPM #30 tabs 08/23/24 levetiracetam 500 mg tablet 500 mg PO BID #60 tabs 08/23/24 mirtazapine 15 mg tablet 7.5 mg (1/2 x 15 mg) PO HS #30 tabs 08/23/24 Allergies Allergy/AdvReac Type Severity Reaction Status Date / Time sulfamethoxazole (From Allergy Diarrhea Verified 08/28/24 20:58 Bactrim) trimethoprim (From Bactrim) Allergy Diarrhea Verified 08/28/24 20:58 morphine AdvReac Intermediate Psychosis Unverified 08/28/24 20:58 baclofen AdvReac Unknown Unknown Unverified 08/28/24 20:58 chlorthalidone AdvReac Unknown Unknown Unverified 08/28/24 20:58 codeine AdvReac Unknown Unknown Unverified 08/28/24 20:58 dextromethorphan AdvReac Unknown Unknown Unverified 08/28/24 20:58 gabapentin (From Neurontin) AdvReac Unknown Unknown Unverified 08/28/24 20:58 hydrochlorothiazide AdvReac Unknown Unknown Unverified 08/28/24 20:58 pregabalin AdvReac Unknown Dopey Unverified 08/28/24 20:58 General Stated Complaint: Orthopedic LOLITA: 3 Review of Systems All systems reviewed & are unremarkable except as noted in HPI and below Constitutional Constitutional: Reports as per HPI and Reports frequent falls Neurologic Neurologic: Reports frequent falls Exam Narrative Exam Narrative: Constitutional: Alert and oriented x3. Appears stated age. Frail appearing, cachectic body habitus. Head: Normocephalic, no trauma. Eyes: Pupils PERRL, Red reflex noted, EOM's intact. Eyelids symmetrical without lesions, discharge, or swelling. ENT: Bilateral TM's WNL, External ear normal to inspection, no mastoid TTP, swelling, or erythema, Nasal turbinates WNL, no nasal discharge. Normal dentition, Posterior pharynx WNL, no exudate. Chest: RRR, Normal S1, S2, distal pulses intact. Resp: Lungs clear to auscultation bilaterally, no wheezes, rales, or rhonchi. Abdomen: Soft, non-distended, Normoactive bowel sounds all 4 quads. Musculoskeletal: Unable to assess gait, does bend her lower extremities, wiggle her toes, strength 2+ to all extremities. Skin: Does have multiple bruising to her bilateral upper extremities 2 to IV sticks.. Capillary refill less than 2 sec. Neurologic: Cranial nerves II-XII intact. Alert and oriented x 3. Motor: No deficits noted. Sensory: Intact bilaterally all 4 extremities. Generalized weakness, no focal neurodeficits. Hematologic/Lymphatic: No ecchymosis, no lymphadenopathy. Const General: cooperative and frail appearing (Cachetic) Nutritional Appearance: cachectic Orientation: alert, awake and oriented x3 [facility] Head: normal to inspection, no palpable skull fracture and normocephalic General nose exam: external nose normal Face and sinus: normal facial exam Course Vital Signs Vital signs: Vital Signs Temperature 37.2 C 08/28/24 20:52 Pulse 90 08/28/24 20:52 Respiratory Rate 12 08/28/24 20:52 Blood Pressure 155/88 H 08/28/24 20:52 Pulse Oximetry 95 08/28/24 20:52 Temperature 37.2 C 08/28/24 20:52 Temperature Source Temporal Artery Scan 08/28/24 20:52 Pulse 90 08/28/24 20:52 Respiratory Rate 12 08/28/24 20:52 Blood Pressure 155/88 H 08/28/24 20:52 Blood Pressure Position Supine 08/28/24 20:52 Pulse Oximetry 95 08/28/24 20:52 Oxygen Delivery Method Room Air 08/28/24 20:52 Oxygen Flow Rate 0 08/28/24 20:52 Medical Decision Making Patient initially is refusing IV and blood draw however after discussion with her she is agreeable to let us attempt blood draw. She reports that it is because it hurts. Patient was discharged from the hospital on the eighth with home health, PT and OT however continues to have multiple falls per EMS. Spoke with patient's daughter who reports that she is the one that called EMS. She reports that patient has decreased mobility and is very weak but refuses to go to rehab. At this time labs are largely at baseline, hemoglobin is 10.1 hematocrit 31.7 which is improved from her last visit, CMP shows BUN 25 creatinine 1.0 GFR 58 which is also at her baseline. CK is elevated at 455 but this could be due to her fall. She does have home health that comes every day was down for approximately 30 minutes per EMS. She does have frequent falls. CT head and C-spine showed no acute abnormalities. She does have microvascular changes which were apparent on her last imaging. At this time patient is to be discharged home with follow-up care with her home health. She has not given us urine sample however she did have a urine sample obtained 2 days ago which was within normal limits. Patient states that physical therapy will be coming this week. This text was generated using [employer] system, please disregard any oddities of phrase or misspellings. Medical Records Medical records reviewed: Yes I reviewed the patient's medical records. Medical records narrative: Seen here 08-26-24 and DC'd from [facility] 08-23-24 Imaging Data Radiologic Study: Imaging: X-Ray Radiologist's impression: TECHNIQUE: Imaging protocol: Radiologic exam of the chest. Views: 2 views. COMPARISON: CT HEAD CERVICAL SPINE WO 08/28/2024 9:23 PM FINDINGS: Lungs: Bibasilar atelectasis. No consolidation. Pleural spaces: Unremarkable. No pleural effusion. No pneumothorax. Heart/Mediastinum: Unremarkable. No cardiomegaly. Vasculature: There is unfolding of the thoracic aorta. Bon es/joints: Moderate degenerative disease of bilateral acromioclavicular joints. There are mild degenerative changes of the glenohumeral joint. Post right rotator cuff repair. ACDF of the lower cervical spine. The thoracic spine demonstrates mild degenerative changes at multiple levels. IMPRESSION: No acute cardiopulmonary process. Thank you for allowing us to participate in the care of your patient. Dictated and Authenticated by: Carlos Bryan MD Radiologic Study #2: Imaging: X-Ray Radiologist's impression: COMPARISON: No relevant prior studies available. FINDINGS: Bones/joints: Moderate degenerative disease of the 1st carpometacarpal joint and STT joint. Plate and screw fixation of the distal radius. Demineralization of the visualized bones, limiting sensitivity for nondisplaced fractures. Soft tissues: Normal. IMPRESSION: No acute fracture or dislocation. Thank you for allowing us to participate in the care of your patient. Dictated and Authenticated by: Carlos Bryan MD Lab Data Lab results reviewed: Yes I reviewed the patient's lab results. Labs: Laboratory Tests Range/Units 08/28/24 21:15 WBC (4.4-10.8) 10^3/uL 9.04 RBC (3.93-5.22) 10^6/uL 3.71 L Hgb (11.2-15.7) g/dL 10.1 L Hct (36.0-46.0) % 31.7 L MCV (80-95) fL 85 MCH (27.0-33.0) pg 27.2 MCHC (32.0-36.0) % 31.9 L RDW (11.7-14.6) % 15.1 H Plt Count (130-400) 10^3/uL 310 MPV (8.0-11.0) fL 9.5 Immature Gran % % 0.4 Neutrophils % % 91.7 Lymphocytes % % 3.5 Monocytes % % 4.1 Eosinophils % % 0.0 Basophils % % 0.3 Nucleated RBC % (0.0-0.3) % 0.0 Absolute Neutrophils (1.2-6.7) 10^3/uL 8.28 H Absolute Lymphocytes (1.2-3.4) 10^3/uL 0.32 L Absolute Monocytes (0.1-0.8) 10^3/uL 0.37 Absolute Eosinophils (0.0-0.7) 10^3/uL 0.00 Absolute Basophils (0.0-0.2) 10^3/uL 0.03 Sodium (136-145) mmol/L 143 Potassium (3.5-5.1) mmol/L 4.4 Chloride (98-107) mmol/L 105 Carbon Dioxide (21.0-32.0) mmol/L 28.2 Anion Gap (3-11) mmol/L 9.8 BUN (7-18) mg/dL 25 H Creatinine (0.55-1.02) mg/dL 1.0 Est GFR (CKD-EPI 2020) (mL/min/1.73m2) 58.75 Glucose (74-106) mg/dL 146 H Calcium (8.5-10.1) mg/dL 9.6 Total Bilirubin (0.2-1.0) mg/dL 0.3 AST (15-37) U/L 38 H ALT (14-59) U/L 41 Alkaline Phosphatase (46-116) U/L 71 Ammonia (11-32) umol/L < 10 L Creatine Kinase (26-192) U/L 455 H Total Protein (6.4-8.2) g/dL 8.4 H Albumin (3.4-5.0) g/dL 3.1 L Quality:SDOH Health Related Social Needs: No Data to Display PFSH All Active Problems (Updated 08/28/24 @ 22:51 by Bela Goel NP) Weakness (Acute) Falls frequently (Acute) Trouble talking (Acute) Seizure (Acute) Psychiatric symptoms (Acute) Acute UTI (Acute) Acute kidney injury superimposed on CKD (Acute) Ambulatory dysfunction (Acute) Lives in half-way (Acute) Deficit in activities of daily living (ADL) (Acute) Closed fracture of distal end of radius (Acute) Palliative care patient (Acute) Closed fracture of left distal radius (Acute) Closed fracture of right distal radius (Acute) Heart murmur (Acute) Depression (Chronic) At high risk for skin breakdown (Acute) Periorbital edema (Acute) Hiatal hernia (Chronic) moderate Coronary artery calcification seen on CAT scan (Acute) Diverticula of colon (Acute) DJD (degenerative joint disease), lumbar (Acute) History of CVA (cerebrovascular accident) (Acute) remote Fracture of both wrists (Acute) Goiter (Acute) Fibromyalgia (Chronic) KWAME (obstructive sleep apnea) (Chronic) Chronic pain (Chronic) Movement disorder (Acute) Chronic renal insufficiency, stage III (moderate) (Acute) Anemia (Chronic) Hypertension (Chronic) Medical History AMS (altered mental status) Dehydration Rhabdomyolysis Fall ACP (advance care planning) Primary osteoarthritis of left knee We will see the patient back in 4-1/2 months for possible repeat Synvisc 1 in her left knee would consider x-ray in her right knee if she is still significantly symptomatic Osteoarthritis of right knee Steroid injection: 04/05/2020 Has had previous viscosupplementation injections. 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) As treatment for a femoral neck fracture (DOI: 09/16/2020) History of back surgery Hx of cholecystectomy Social History Smoking/Tobacco Use Status: Never Smoking risk assessment performed?: Yes Alcohol Intake: never Drug use: Never Substance use type: does not use Housing: apartment Do you feel safe at home: Yes Do you feel safe in your relationship?: Yes Additional Social history: lives alone, has caregiver that come 7 days a week, do all the meds
[2024-08-28 21:24] LABS: Abs Immature Grans 0.04 10^3/uL (0.0-0.06); Absolute Basophil Count 0.03 10^3/uL (0.0-0.2); Absolute Lymphocyte Count 0.32 10^3/uL (1.2-3.4); Absolute Monocyte Count 0.37 10^3/uL (0.1-0.8); Absolute Neutrophil Count 8.28 10^3/uL (1.2-6.7); Basophils % 0.3 %; HCT 31.7 % (36.0-46.0); HGB 10.1 g/dL (11.2-15.7); Immature Grans % 0.4 %; Lymphocytes % 3.5 %; MCH 27.2 pg (27.0-33.0); MCHC 31.9 % (32.0-36.0); MCV 85 fL (80-95); MPV 9.5 fL (8.0-11.0); Monocytes % 4.1 %; Neutrophils % 91.7 %; Platelet Count 310 10^3/uL (130-400); RBC 3.71 10^6/uL (3.93-5.22); RDW 15.1 % (11.7-14.6); RDW-SD 46.7 fL; WBC 9.04 10^3/uL (4.4-10.8)
[2024-08-28 21:44] LABS: Ammonia < 10 umol/L (11-32); Creatine Kinase 455 U/L (26-192)
--- NOTE | 2024-08-28 21:50 | DI.CT_ITS ---
Exam(s) CT HEAD CERVICAL SPINE WO EXAM: CT HEAD CERVICAL SPINE WO CLINICAL HISTORY: Fall. TECHNIQUE: Imaging Protocol: Axial computed tomography images with coronal and sagittal reformatted images were created and reviewed COMPARISON: CT CT HEAD CERVICAL SPINE WO from 04/20/[address] HEAD WO from 08/26/2024 FINDINGS: CT Head: Ventricles and Extra axial spaces: Normal in size and morphology for the patient's age. Hemorrhage: None. Cerebral parenchyma: There is again seen a large area of encephalomalacia in the right occipital lobe . There are areas of decreased attenuation in the white matter consistent with chronic microvascular ischemic disease. Several stable old lacunar infarcts are present. No acute mass effect or finding s to suggest an acute intracranial infarct are seen. Midline shift: None. Brainstem/Cerebellum: Normal. Calvarium: Normal. Visualized Paranasal sinuses/Mastoids: Clear. Soft Tissues: Unremarkable. CT Cervical Spine: Bones: No acute fracture or subluxation. There is anterior cervical fusion from C4 through C7. The m etallic density adjacent to the posterior arch of C1 is unchanged. Soft Tissues: Unremarkable. There are several tiny hypodensities seen in the thyroid gland. These ap pears stable. No follow-up is recommended. Lung Apices: Clear. IMPRESSION: 1. No acute intracranial process. 2. No acute fracture or subluxation in the cervical spine. RADIATION DOSE DELIVERED: 1,096.87mGy.cm Total DLP DATA REPOSITORY: All CT scans at this facility are submitted to the National Radiology Data Registry (NRDR) Dose Index Registry (DIR) with the [employer] ([employer]). RADIATION OPTIMIZATION: All CT scans at this facility use at least one of these dose optimization te chniques: automated exposure control; mA and/or kV adjustment per patient size (includes targeted exa ms where dose is matched to clinical indication); or iterative reconstruction.
--- NOTE | 2024-08-28 21:50 | DI.RAD_ITS ---
Exam(s) XR FOREARM RT XR HUMERUS RT EXAM: XR FOREARM RT and XR humerus RT CLINICAL HISTORY: Fall. TECHNIQUE: 2D digital imaging was performed of the right humerus and forearm. Four views were obtai helga. AP and lateral views were obtained. COMPARISON: CR XR WRIST RT COMPLETE from 08/18/2024 CR XR SHOULDER RT COMPLETE 2+V from 08/18/2024 FINDINGS: BONES: No acute fracture is present. No bony destructive lesion is seen. Visualized portion of elbow and wrist joints are unremarkable. There is an orthopedic plate and screw set in the distal right rad ius. Marked degenerative changes are seen at the 1st CMC joint. There are degenerative changes seen in the shoulder. SOFT TISSUE: No radiopaque foreign bodies are seen in the soft tissues. IMPRESSION: No acute fracture or dislocation is present. DATA REPOSITORY: RADIATION DOSE DELIVERED:
--- NOTE | 2024-08-28 21:50 | DI.RAD_ITS ---
Exam(s) XR CHEST 2V PA LATERAL EXAM: XR CHEST 2V PA LATERAL CLINICAL HISTORY: Fall TECHNIQUE: 2D digital imaging was performed of the chest. Two images were obtained. AP and lateral views were obtained. COMPARISON: CR XR CHEST 2V PA LATERAL from 01/16/2022 CR XR CHEST 1V IN DI DEPT from 03/15/2023 FINDINGS: The patient is rotated. MEDIASTINUM: Normal. HEART: Normal. PULMONARY VASCULATURE: Normal. LUNGS: No focal consolidation is present. PLEURAL SPACE: No pleural effusion or pneumothorax. BONE:Within normal limits for the patient's age. Anterior cervical fusion is noted. There is an ort hopedic anchor in the right humeral head. OTHER FINDINGS:Normal. IMPRESSION: No acute pulmonary findings. DATA REPOSITORY: RADIATION DOSE DELIVERED:
[2024-08-28 21:52] LABS: ALT 41 U/L (14-59); AST 38 U/L (15-37); Albumin 3.1 g/dL (3.4-5.0); Alkaline Phosphatase 71 U/L (46-116); Anion Gap 9.8 mmol/L (3-11); BUN 25 mg/dL (7-18); Bilirubin, Total 0.3 mg/dL (0.2-1.0); CO2 28.2 mmol/L (21.0-32.0); Calcium 9.6 mg/dL (8.5-10.1); Chloride 105 mmol/L (98-107); Estimated GFR 58.75 (mL/min/1.73m2); Glucose 146 mg/dL (74-106); Potassium 4.4 mmol/L (3.5-5.1); Sodium 143 mmol/L (136-145); Total Protein 8.4 g/dL (6.4-8.2)
--- NOTE | 2024-08-28 22:40 | DI.VRAD_ITS ---
PROCEDURE INFORMATION: Exam: CT Head Without Contrast Exam date and time: 08/28/2024 9:23 PM Age: 73 years old Clinical indication: Injury or trauma; Fall; Blunt trauma (contusions or hematomas); Consciousness not specified; Injury date: 08/28/24; Prior surgery; Surgery date: 6+ months; Surgery type: Spine plates. Spinal fusion TECHNIQUE: Imaging protocol: Computed tomography of the head without contrast. Radiation optimization: All CT scans at this facility use at least one of these dose optimization techniques: automated exposure control; mA and/or kV adjustment per patient size (includes targeted exams where dose is matched to clinical indication); or iterative reconstruction. COMPARISON: CT HEAD WO 08/26/2024 4:25 PM FINDINGS: Brain: Mineralization of bilateral basal ganglia, age-related. Encephalomalacia in the right occipital lobe, from prior insult. There are bilateral periventricular white matter and centrum semiovale hypodensities, consistent with chronic ischemic small vessel disease. Bilateral basal ganglia old lacunar infarcts. No recent infarct, intracranial bleed or mass effect. Cerebral ventricles: No ventriculomegaly. Paranasal sinuses: Osteoma in the right maxillary sinuses. Mastoid air cells: Visualized mastoid air cells are well aerated. Bones: Unremarkable. No acute fracture. Soft tissues: Unremarkable. IMPRESSION: No acute intracranial posttraumatic changes. PROCEDURE INFORMATION: Exam: CT Cervical Spine Without Contrast Exam date and time: 08/28/2024 9:23 PM Age: 73 years old Clinical indication: Injury or trauma; Fall; Blunt trauma (contusions or hematomas); Consciousness not specified; Injury date: 08/28/24; Prior surgery; Surgery date: 6+ months; Surgery type: Spine plates. Spinal fusion TECHNIQUE: Imaging protocol: Computed tomography of the cervical spine without contrast. Radiation optimization: All CT scans at this facility use at least one of these dose optimization techniques: automated exposure control; mA and/or kV adjustment per patient size (includes targeted exams where dose is matched to clinical indication); or iterative reconstruction. COMPARISON: CT HEAD CERVICAL SPINE WO 08/18/2024 1:25 PM FINDINGS: Bones: Metallic foreign body in the right aspect of the spinal canal at C1 level. No acute fracture. No compression deformity. No spondylolisthesis. Post ACDF at C4-C5, C5-C6 and C6-C7 levels with no hardware complications. There is bony bridging of the disc spaces between C4 and C7. No compression deformity. There is mild retrolisthesis of C3 over C4. Posterior osteophyte disc complex at C3-C4 with moderate bony canal stenosis. Lungs: Lung apices are normal. Thyroid: Bilateral thyroid nodules measuring up to 1 cm in the right thyroid lobe. Vasculature: There are bilateral carotid artery calcified atheromas. Soft tissues: Unremarkable. IMPRESSION: No acute posttraumatic changes in the cervical spine. Dictated and Authenticated by: Carlos Bryan MD. Orderin Amando Cramer MD
--- NOTE | 2024-08-28 22:41 | DI.VRAD_ITS ---
PROCEDURE INFORMATION: Exam: XR Right Forearm Exam date and time: 08/28/2024 9:39 PM Age: 73 years old Clinical indication: Injury or trauma; Fall; Blunt trauma (contusions or hematomas); Arm, upper and arm, lower; Right; Injury date: 08/28/24; Prior surgery; Surgery date: 6+ months; Surgery type: Wrist plate TECHNIQUE: Imaging protocol: Radiologic exam of the right forearm. Views: 2 views. COMPARISON: No relevant prior studies available. FINDINGS: Bones/joints: Moderate degenerative disease of the 1st carpometacarpal joint and STT joint. Plate and screw fixation of the distal radius. Demineralization of the visualized bones, limiting sensitivity for nondisplaced fractures. Soft tissues: Normal. IMPRESSION: No acute fracture or dislocation. Dictated and Authenticated by: Carlos Bryan MD. Orderin mAando Cramer MD
--- NOTE | 2024-08-28 22:42 | DI.VRAD_ITS ---
PROCEDURE INFORMATION: Exam: XR Chest Exam date and time: 08/28/2024 9:35 PM Age: 73 years old Clinical indication: Injury or trauma; Fall; Blunt trauma (contusions or hematomas); Injury date: 08/28/24 TECHNIQUE: Imaging protocol: Radiologic exam of the chest. Views: 2 views. COMPARISON: CT HEAD CERVICAL SPINE WO 08/28/2024 9:23 PM FINDINGS: Lungs: Bibasilar atelectasis. No consolidation. Pleural spaces: Unremarkable. No pleural effusion. No pneumothorax. Heart/Mediastinum: Unremarkable. No cardiomegaly. Vasculature: There is unfolding of the thoracic aorta. Bones/joints: Moderate degenerative disease of bilateral acromioclavicular joints. There are mild degenerative changes of the glenohumeral joint. Post right rotator cuff repair. ACDF of the lower cervical spine. The thoracic spine demonstrates mild degenerative changes at multiple levels. IMPRESSION: No acute cardiopulmonary process. Dictated and Authenticated by: Carlos Bryan MD. Orderin Amando Cramer MD
--- NOTE | 2024-08-28 22:43 | DI.VRAD_ITS ---
PROCEDURE INFORMATION: Exam: XR Right Humerus Exam date and time: 08/28/2024 9:41 PM Age: 73 years old Clinical indication: Injury or trauma; Fall; Blunt trauma (contusions or hematomas); Arm, upper and arm, lower; Right; Injury date: 08/28/24; Prior surgery; Surgery date: 6+ months; Surgery type: Screw TECHNIQUE: Imaging protocol: Radiologic exam of the right humerus. Views: 2 or more views. COMPARISON: CR XR CHEST 2V PA LATERAL 08/28/2024 9:35 PM FINDINGS: Bones/joints: Moderate degenerative disease of the AC joint and glenohumeral joint. Suture anchor post rotator cuff repair. Demineralization of the visualized bones, limiting sensitivity for nondisplaced fractures. Soft tissues: Normal. IMPRESSION: No acute fracture or dislocation. Dictated and Authenticated by: Carlos Bryan MD. Orderin Amando Cramer MD
[2024-08-29] VITALS (113 sets, daily range): BP systolic 108–164; BP diastolic 58–94; PULSE 63–87; RESP 3–24; TEMP 36.5–36.8; O2SAT 92–99
--- NOTE | 2024-08-29 08:19 | ED.PROG_ITS ---
Date of service: 08/29/24 Time of Service: 08:19 Medical Decision Making This patient was pending discharge at start of my shift. In brief this 73-year-old with CKD and multiple falls she reportedly lives alone. She reportedly has home PT and OT. Her daughter and son are reportedly refusing to take her back. Will touch base with the patient and engage with care management. 1:44 PM I spoke to Destiney Michael from care management who is attempting to find placement. Placement option is unlikely this afternoon. Debby requested that I reengage with physical therapy. I spoke with Leigh who will come to assess the patient. 2 PM I was in touch with Dr. Fuller from the hospitalist team who graciously agreed to accept the patient for hospitalization. 2:50 PM Leigh from physical therapy evaluated the patient and she was as a two-person assist. She did have a healing superficial laceration on her right collarbone but no underlying bony tenderness. She also had signs of an abrasion on the posterior aspect of her shoulder on the right. No underlying bony tenderness nor pain with passive range of motion. Patient would not participate in active range of motion. She reportedly was favoring her left hip and she had tenderness when I passively flexed her hip so we will obtain x-ray of her right hip and pelvis. I obtain plain films and these were unremarkable of the patient's pelvis right hip and right wrist. I was in touch with Dr. Fuller who graciously agreed to accept patient for hospitalization. Quality:SDOH Health Related Social Needs: Health related social needs material hardship(utilitie s) (Z59.12) Discharge Plan Disposition Patient Disposition: Admit to [facility] Condition: Fair Discharge Details Clinical Impression: Falls frequently, Weakness Admit Date/Time: 08/29/24 14:28 Admit Provider: Alverto Fuller Attending Provider: Alverto Fuller Primary Care Provider: Marixa Kurtz ED Provider: Oscar Landin Discharge Data Discharge Date/Time-TO BE ENTERED AT DEPARTURE: 08/29/24 15:44
--- NOTE | 2024-08-29 08:45 | DI.RAD_ITS ---
Exam(s) XR WRIST RT COMPLETE EXAM: XR WRIST RT COMPLETE CLINICAL HISTORY: Right wrist pain. TECHNIQUE: 2D digital imaging was performed of the right wrist. Views were obtained. Scaphoid, PA, lateral and oblique views were obtained. COMPARISON: CR XR WRIST RT COMPLETE from 08/18/2024 CR,XR XR FOREARM RT from 08/28/2024 CR,XR XR HUMERUS RT from 08/28/2024 FINDINGS: BONES: No acute fracture is present. No bony destructive lesion is seen. There is again seen a sidepl ate and screws in the distal radius. JOINTS: The carpal bones are normally aligned. There are marked degenerative changes seen at the 1st CMC joint. SOFT TISSUE: Normal. IMPRESSION: No acute fracture or dislocation. DATA REPOSITORY: RADIATION DOSE DELIVERED:
--- NOTE | 2024-08-29 09:55 | NUR.NOTE ---
Patient not alert enough to take morning meds.
--- NOTE | 2024-08-29 10:33 | NUR.NOTE ---
Minimal response from patient when asked if she wanted lunch. VSS. Will attempt to rouse the patient again.
[2024-08-29] MEDS: amLODIPine 5 MG TAB 10 MG PO (14:04)
[2024-08-29] MEDS: Aspirin E.C. 81 MG TABEC PO (14:04)
[2024-08-29] MEDS: Vitamins B Comp w/C TAB 1 TAB PO (14:04)
[2024-08-29] MEDS: Omeprazole 20 MG CAPCR PO (14:05)
[2024-08-29] MEDS: levETIRAcetam 500 MG TAB PO ×2 (14:05→20:42)
--- NOTE | 2024-08-29 14:20 | PT.INIE ---
PT Notes Visit Reasons: CALEX/Fall Emergency Department Physical Therapy Initual Evaluation Date: 08/29/2024 Referring Doctor: Oscar Landin MD PT Orders: PT CONSULT: falls Precautions: Falls. Standard. Impaired safety awareness. Activity as tolerated. Seizure-prone. Patient Profile/Admitting Diagnosis: Patient is a 73-year-old female presented to the ED twice in the past 48 hours due to repeated falls. Patient was recently seen by PT with recommendation given for SNF placement due to issues of repeated falls, impaired safety awareness, and needing assist of 1 for all mobility ADL performance. Patient is evaluated per request of Dr Landin for safety recommendations. PMHX: All Active Problems (Updated 08/28/24 @ 22:51 by Bela Goel NP) Weakness (Acute) Falls frequently (Acute) Trouble talking (Acute) Seizure (Acute) Psychiatric symptoms (Acute) Acute UTI (Acute) Acute kidney injury superimposed on CKD (Acute) Ambulatory dysfunction (Acute) Lives in fdc (Acute) Deficit in activities of daily living (ADL) (Acute) Closed fracture of distal end of radius (Acute) Palliative care patient (Acute) Closed fracture of left distal radius (Acute) Closed fracture of right distal radius (Acute) Heart murmur (Acute) Depression (Chronic) At high risk for skin breakdown (Acute) Periorbital edema (Acute) Hiatal hernia (Chronic) moderate Coronary artery calcification seen on CAT scan (Acute) Diverticula of colon (Acute) DJD (degenerative joint disease), lumbar (Acute) History of CVA (cerebrovascular accident) (Acute) remote Fracture of both wrists (Acute) Goiter (Acute) Fibromyalgia (Chronic) KWAME (obstructive sleep apnea) (Chronic) Chronic pain (Chronic) Movement disorder (Acute) Chronic renal insufficiency, stage III (moderate) (Acute) Anemia (Chronic) Hypertension (Chronic) Medical History AMS (altered mental status) Dehydration Rhabdomyolysis Fall ACP (advance care planning) Primary osteoarthritis of left knee We will see the patient back in 4-1/2 months for possible repeat Synvisc 1 in her left knee would consider x-ray in her right knee if she is still significantly symptomatic Osteoarthritis of right knee Steroid injection: 04/05/2020 Has had previous viscosupplementation injections. 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) As treatment for a femoral neck fracture (DOI: 09/16/2020) History of back surgery Hx of cholecystectomy Social History/Home Situation: Lives alone in a private home. PT was ordered per most recent discharge 3 days ago, unsure if they were able to visit her since then. Equipment Owned/DME: FWW Subjective: Cold. Pain all over. No. Very tired. More pain in right hip. Objective: General Observation: Blank stare, expressionless face. Stiff. Mental Status: Oriented only as to person. Unable and unwilling to initiate movement. Pain: Pain all over Vital Signs: monitored via telemetry ROM: Unable to formally assess but all PASSIVE movements produce some discomfort at end of range Right Upper Extremity: Shoulder Flexion allows up to 90 degrees. Shoulder abduction allows up to about 60 degrees. Elbow flexion WFL. Wrist flexion WFL. Functional opening and closing of hand WFL. Left Upper Extremity: Shoulder Flexion allows up to 90 degrees. Shoulder abduction allows up to about 60 degrees. Elbow flexion WFL. Wrist flexion WFL. Functional opening and closing of hand WFL. Right Lower Extremity: Hip flexion allows up to 90 degrees. Hip abduction WFL. Knee flexion WFL. Ankle dorsiflexion WFL. Ankle plantarflexion WFL. Left Lower Extremity: Hip flexion allows up to 90 degrees. Hip abduction WFL. Knee flexion WFL. Ankle dorsiflexion WFL. Ankle plantarflexion WFL. Strength: Unable to formally assess but could push down minimally onto walker when she was assisted to stand up. Needed moderate assit of 2 to statically stand up using FWW. Right Upper Extremity: Shoulder flexors 3-/5. Shoulder abductors 3-/5. Elbow flexors 4-/5. Elbow extensors 4-/5. Human Resources File Clerk weak but functional. Left Upper Extremity: Shoulder flexors 3-/5. Shoulder abductors 3-/5. Elbow flexors 4-/5. Elbow extensors 4-/5. Human Resources File Clerk weak but functional. Right Lower Extremity: Grossly 2/5 Left Lower Extremity: Grossly 2/5 Sensation: Intact as to pain and light pressure Bed Mobility/Transfers: Maximal cueing provided for use of B hands as needed for support, movement sequence, AD management, and posture to reduce fall risk and minimize pain report supine to sit moderate assist with HOB at 45 degrees sit to stand moderate assist of 2 with increased lean to R appearing to offload R LE stand to sit moderate assist of 2 bed to chair deferred Gait: Unable to test Balance: Static Sitting: Fair Dynamic Sitting: Poor Static Standing: Unable to test Dynamic Standing: Unable to test Special Tests: Mobility Limitations Standardized Measure [facility] AM-PAC 6 clicks Basic Mobility Inpatient Short Form: Raw Score: 9 CMS Score: 81% Informed Consent/Education: Patient was instructed in purpose of PT consult and plan of care. Assessment: Unable to tolerate static standing even with assistance of 2 from PT and RICA Melton. Attention very limited, willingness to move significantly low with report of generalized pain. Affect flat. Safety awareness poor. Patient demonstrates inability to safely perform mobility ADLs and therefore is not able to effectively thrive at home alone. She will require continuos assistance with movement initiation, execution, and completion at this time. Patient is a 73 year old female referred to physical therapy services with the diagnosis of UTI/altered mental status. Patient presents with clinical signs and symptoms consistent with admitting diagnosis, as demonstrated by the following impairment level findings: 1. Decreased strength to B UE/LE major muscle groups 2. Impaired sitting and standing balance 3. Impaired activity tolerance 4. Limitations of range of motion in B shoulders, wrists and hips 5. Depressed, apathetic and lacks motivation Impairments are contributing to the following functional limitations: 1. Failure to thrive at home alone 2. Declining bed mobility skills 3. Declining transfer skills 4. Difficulty with ambulation without assistive device and physical assistance 5. Increased time to complete ADL/mobility tasks 6. Increased risk for falls 7. Difficulty with managing stairs alone safely Patient is assessed as a moderate [id number] complexity based on the following: History: 73-year-old female with past medical history as stated above Examination: Demonstrates impairments in strength, balance, mobility level with underlying impairments and functional limitations as stated above Presentation: Evolving Decision Makin moderate complexity Goals: Goals X1 week 1. Supine-Sit supervision 2. Sit-Supine supervision 3. Sit-Stand supervision 4. Stand-Sit supervision 5. Bed-Chair supervision 6. Chair-Bed supervision 7. Contact guard assist with gait on level surface with FWW for at least 300 feet without report of pain nor dyspnea 8. Fair static and dynamic standing balance/tolerance Plan of Care/Treatment Plan: 1-2x/day, 7 days/week x 1 week. Plan of care has been reviewed with the [facility] providing the service under Physical Therapy direction. Initiate Physical Therapy intervention for strengthening, bed mobility, transfers, gait, stairs, balance training, use of assistive device. DISCHARGE RECOMMENDATIONS: [] Home with no services [] [] Home with services [specify] [] Home with outpatient PT [] [] SNF for continued rehabilitation [] [] [facility] [] [X] SNF versus LTC based on ability to participate and progress TREATMENT CODE/TIME: 53868 x 27 minutes for 1 unit (14: 20?14: 27).
--- NOTE | 2024-08-29 14:21 | HPE_ITS ---
Date of service: 08/29/24 Time of Service: 14:22 Assessment and Plan Assessment and plan (1) Dehydration: Assessment and plan: Increased in BUN - stable creat- dry mucous membranes LR at 75 cc/hr stop 08/30 08:00 and reevaluate (2) Weakness: Status: Acute Assessment and plan: PT consult OOB to chair with meals (3) Falls frequently: Status: Acute Assessment and plan: Fall precaution No acute injury on admit (4) Psychiatric symptoms: Status: Acute Assessment and plan: On home medicine regimen (5) Seizure: Status: Acute Assessment and plan: On Keppra BID Needs OPT EEG (6) Ambulatory dysfunction: Status: Acute Assessment and plan: PT consult (7) Failure to thrive in adult: Status: Acute Assessment and plan: Nutrition consult (8) Depression: Status: Chronic Assessment and plan: On home medicines (9) On deep vein thrombosis (DVT) prophylaxis: Status: Acute Assessment and plan: On LMWH (10) Discharge planning issues: Status: Acute Assessment and plan: CM attempting to find placement Discussed with Dr. Fuller History of Present Illness History of Present Illness Chief Complaint: Falls Narrative: 73-year-old female who leaves alone with nursing care, PT, OT with recent admission for dehydration rhabdomyolysis, UTI, and a past medical history of osteoarthritis, recurrent UTIs, chronic renal insufficiency, hypertension, depression,chronic pain on opiids, new Dx of seizure disorder presented to the ED for the second time in 48 hours on 08/28/24 with recurrent falls. EMS reported that they have gone to her home twice on the day of presentation for falls and multiple times for assistance with activities of daily living. Reported to have been found between her bed and some other items in her home on her right side; she was soaked in urine. Workup in the ED for acute intracranial process, fracture or subluxation in the cervical spine or other fractures. UA was negative. Mild stable anemia with H&H of 9.2 & 28.8,chemistry was unremarkable. Son and daughter refused to take the patient upon d/c as per ED providers notes. The patient was not deemed safe for discharge as she required 2 assist for mobilization. Physical therapy recommendations are for SNF VS LTC. CM was attemping to find placement. The hospitalist was contacted and the patient admitted to the medical surgical floor for evaluation and management of failure top thrive, ambulatory dysfunction, falls. The patient is a DNR/DNI. When seen in the ED, the patient was lethargic only responsive to deep tactile stimuli, briefly and speaking clearly Don't do that. Denied dizzyness, change in vision, chest pain, vomiting. ROS limited d/t intermittent answers. Review of Systems All systems reviewed & are unremarkable except as noted in HPI and below PFSH All Active Problems (Updated 08/29/24 @ 18:18 by Enid Bonner APRN) Discharge planning issues (Acute) Failure to thrive in adult (Acute) On deep vein thrombosis (DVT) prophylaxis (Acute) Weakness (Acute) Falls frequently (Acute) Trouble talking (Acute) Seizure (Acute) Psychiatric symptoms (Acute) Acute UTI (Acute) Acute kidney injury superimposed on CKD (Acute) Ambulatory dysfunction (Acute) Lives in prison (Acute) Deficit in activities of daily living (ADL) (Acute) Closed fracture of distal end of radius (Acute) Palliative care patient (Acute) Closed fracture of left distal radius (Acute) Closed fracture of right distal radius (Acute) Heart murmur (Acute) Depression (Chronic) At high risk for skin breakdown (Acute) Periorbital edema (Acute) Hiatal hernia (Chronic) moderate Coronary artery calcification seen on CAT scan (Acute) Diverticula of colon (Acute) DJD (degenerative joint disease), lumbar (Acute) History of CVA (cerebrovascular accident) (Acute) remote Fracture of both wrists (Acute) Goiter (Acute) Fibromyalgia (Chronic) KWAME (obstructive sleep apnea) (Chronic) Chronic pain (Chronic) Movement disorder (Acute) Chronic renal insufficiency, stage III (moderate) (Acute) Anemia (Chronic) Hypertension (Chronic) Medical History AMS (altered mental status) Dehydration Rhabdomyolysis Fall ACP (advance care planning) Primary osteoarthritis of left knee We will see the patient back in 4-1/2 months for possible repeat Synvisc 1 in her left knee would consider x-ray in her right knee if she is still significantly symptomatic Osteoarthritis of right knee Steroid injection: 04/05/2020 Has had previous viscosupplementation injections. 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) As treatment for a femoral neck fracture (DOI: 09/16/2020) History of back surgery Hx of cholecystectomy Social History Smoking/Tobacco Use Status: Never Smoking risk assessment performed?: Yes Alcohol Intake: never Drug use: Never Substance use type: does not use Housing: apartment Do you feel safe at home: Yes Do you feel safe in your relationship?: Yes Additional Social history: lives alone, has caregiver that come 7 days a week, do all the meds Meds Allergies and Home Medications Allergies Allergy/AdvReac Type Severity Reaction Status Date / Time sulfamethoxazole (From Allergy Diarrhea Verified 08/29/24 13:18 Bactrim) trimethoprim (From Bactrim) Allergy Diarrhea Verified 08/29/24 13:18 morphine AdvReac Intermediate Psychosis Unverified 08/29/24 13:18 baclofen AdvReac Unknown Unknown Unverified 08/29/24 13:18 chlorthalidone AdvReac Unknown Unknown Unverified 08/29/24 13:18 codeine AdvReac Unknown Unknown Unverified 08/29/24 13:18 dextromethorphan AdvReac Unknown Unknown Unverified 08/29/24 13:18 gabapentin (From Neurontin) AdvReac Unknown Unknown Unverified 08/29/24 13:18 hydrochlorothiazide AdvReac Unknown Unknown Unverified 08/29/24 13:18 pregabalin AdvReac Unknown Dopey Unverified 08/29/24 13:18 Home Medications ?Medication ?Instructions ?Recorded ?Confirmed ?Type omeprazole 40 mg capsule,delayed 40 mg PO DAILY 05/19/14 08/29/24 History release vitamin B complex 1 tab PO DAILY 01/05/20 08/29/24 History aspirin 81 mg tablet,delayed 81 mg PO DAILY 06/23/21 08/29/24 History release amlodipine 10 mg tablet 10 mg PO DAILY 01/14/22 08/29/24 History sennosides 8.6 mg tablet (senna) 8.6 mg PO QPM 01/14/22 08/29/24 History naloxone 4 mg/actuation nasal spray 4 mg intranasal ONCE PRN 07/16/23 08/29/24 History lorazepam 1 mg tablet (Ativan) 1 mg PO DAILY PRN #10 tabs 04/24/24 08/29/24 Rx cannabidiol (CBD) oral edible 1 tab PO PRN PRN 08/18/24 08/29/24 History nitrofurantoin 100 mg PO DAILY 08/18/24 08/29/24 History monohydrate/macrocrystals 100 mg capsule ondansetron HCl 4 mg tablet 4 mg PO BID PRN nausea and vomiting 08/18/24 08/29/24 History risperidone 1 mg tablet 1 mg PO .Bedtime 08/18/24 08/29/24 History oxycodone 40 mg tablet,crush 40 mg PO BID 08/19/24 08/29/24 History resistant,extended release 12 hr (OxyContin) atorvastatin 20 mg tablet 20 mg PO QPM #30 tabs 08/23/24 08/29/24 Rx folic acid 1 mg tablet 1 mg PO DAILY 08/23/24 08/29/24 History levetiracetam 500 mg tablet 500 mg PO BID #60 tabs 08/23/24 08/29/24 Rx mirtazapine 15 mg tablet 7.5 mg (1/2 x 15 mg) PO HS #30 tabs 08/23/24 08/29/24 Rx Exam Narrative Exam Narrative: Ill appearing female 73 y.o female patient looking of stated age, cachectic, sleepy/ lethargic and arousable to deep tactile stimuli,oriented to self, GCS 15, nonfocal, nonicteric dry sclera, PERRLA on ambient light, S1-S2 regular, positive radial and pedal pulses, clear lungs with decreased bases, abdomen is nonacute and nontender, bowel are present, no CVA tenderness, dry oral mucous membranes, moves all 4 extremities, minimal abrasion to right trochanter area with mepilex no erythema Results Labs 08/28/24 21:15 08/28/24 21:15 Labs: Laboratory Results - last 24 hr 08/28/24 21:15 WBC 9.04 RBC 3.71 L Hgb 10.1 L Hct 31.7 L MCV 85 MCH 27.2 MCHC 31.9 L RDW 15.1 H Plt Count 310 MPV 9.5 Immature Gran % 0.4 Neutrophils % 91.7 Lymphocytes % 3.5 Monocytes % 4.1 Eosinophils % 0.0 Basophils % 0.3 Nucleated RBC % 0.0 Absolute Neutrophils 8.28 H Absolute Lymphocytes 0.32 L Absolute Monocytes 0.37 Absolute Eosinophils 0.00 Absolute Basophils 0.03 Sodium 143 Potassium 4.4 Chloride 105 Carbon Dioxide 28.2 Anion Gap 9.8 BUN 25 H Creatinine 1.0 Est GFR (CKD-EPI 2020) 58.75 Glucose 146 H Calcium 9.6 Total Bilirubin 0.3 AST 38 H ALT 41 Alkaline Phosphatase 71 Ammonia < 10 L Creatine Kinase 455 H Total Protein 8.4 H Albumin 3.1 L Last Vital Signs Temp 37.2 C 08/28/24 20:52 Pulse 84 08/29/24 14:10 Resp 12 08/29/24 14:10 BP 140/80 08/29/24 14:00 Pulse Ox 93 08/29/24 14:10 Time Spent Time spent with Patient: >75 minutes Time was spent: preparing to see the patient(eg.review tests), obtaining and/or reviewing separately otained hiistory, ordering medications,tests, procedures, referring, communicating with other health health care marketing manager, indepentently interpreting results, counseling the patient and care coordination
--- NOTE | 2024-08-29 14:45 | DI.RAD_ITS ---
Exam(s) XR HIP RT COMPLETE AP PELVIS EXAM: XR HIP RT COMPLETE AP PELVIS CLINICAL HISTORY: Right hip pain fall. TECHNIQUE: 2D digital imaging was performed. COMPARISON: CR,XR XR HIP LT COMPLETE AP PELVIS from 09/16/2020 FINDINGS: Two views No evidence of acute pelvic nor hip fracture. There is left hip joint prosthesis. There are advance d osteoarthritic degenerative changes in the right hip with slight further progression when compared to 2020. IMPRESSION: Advanced degenerative changes in the right hip. Left hip prosthesis. DATA REPOSITORY: RADIATION DOSE DELIVERED:
--- NOTE | 2024-08-29 15:19 | W.PC.ACHO ---
Registration Status: Primary Language: Preferred Language: ED Information & Data Chief Complaint Orthopedic 08/28/24 21:06 Triage Note BIBA for fall, also fell 08/28/24 20:52 earlier today, pt c/o back, leg and knee pain. Unknown if she hit her head, denies LOC. Pt A&Ox4 but forgetful of complaints. Per EMS was saturated in urine on scene. At [facility] pt uses cane and walker to ambulate. Pt lives alone. Medical / Surgical History (Last Reviewed 08/28/24 @ 21:06 by Bela Goel NP) AMS (altered mental status) Dehydration Rhabdomyolysis Fall ACP (advance care planning) Primary osteoarthritis of left knee Osteoarthritis of right knee Chronic pain syndrome Left elbow contusion Muscle weakness Tendonitis of left rotator cuff Recurrent UTI (urinary tract infection) Hypomagnesemia Primary osteoarthritis, left shoulder Left rotator cuff tear arthropathy Impacted cerumen of both ears Bilateral sensorineural hearing loss Pneumonia Left displaced femoral neck fracture (09/16/20) Fracture of left hip CVA (cerebral vascular accident) Recurrent UTI IBS (irritable bowel syndrome) Urge incontinence Chronic constipation Chronic insomnia (Last Reviewed 08/28/24 @ 21:06 by Bela Goel NP) S/P cervical spinal fusion History of total left hip replacement (09/17/20) History of back surgery Hx of cholecystectomy Most Recent Vital Signs Temperature 37.2 C 08/28/24 20:52 Temperature Source Temporal Artery Scan 08/28/24 20:52 Pulse 77 08/29/24 14:20 Pulse 71 08/29/24 15:10 Respiratory Rate 15 08/29/24 15:10 Blood Pressure 140/80 08/29/24 14:00 Blood Pressure Mean 100 08/29/24 14:00 Blood Pressure Position Supine 08/28/24 20:52 Pulse Oximetry 94 08/29/24 14:20 Oxygen Delivery Method Room Air 08/28/24 20:52 Oxygen Flow Rate 0 08/28/24 20:52 Allergies sulfamethoxazole (From Bactrim) Allergy (Verified 08/29/24 13:18) Diarrhea trimethoprim (From Bactrim) Allergy (Verified 08/29/24 13:18) Diarrhea morphine Adverse Reaction (Intermediate, Unverified 08/29/24 13:18) Psychosis baclofen Adverse Reaction (Unknown, Unverified 08/29/24 13:18) Unknown chlorthalidone Adverse Reaction (Unknown, Unverified 08/29/24 13:18) Unknown codeine Adverse Reaction (Unknown, Unverified 08/29/24 13:18) Unknown dextromethorphan Adverse Reaction (Unknown, Unverified 08/29/24 13:18) Unknown gabapentin (From Neurontin) Adverse Reaction (Unknown, Unverified 08/29/24 13:18) Unknown hydrochlorothiazide Adverse Reaction (Unknown, Unverified 08/29/24 13:18) Unknown pregabalin Adverse Reaction (Unknown, Unverified 08/29/24 13:18) Dopey Precautions Isolation Standard precaution 08/28/24 20:59 Active Medications Generic Name Dose Route Start Last Admin Trade Name Freq PRN Reason Stop Dose Admin Amlodipine Besylate 10 mg 08/29/24 08:30 08/29/24 14:04 Amlodipine 5 Mg Tab PO 10 mg DAILY MONSE Administration Aspirin 81 mg 08/29/24 08:30 08/29/24 14:04 Aspirin E.C. 81 Mg Tabec PO 81 mg DAILY MONSE Administration Levetiracetam 500 mg 08/29/24 08:30 08/29/24 14:05 Levetiracetam 500 Mg Tab PO 500 mg BID MONSE Administration Omeprazole 20 mg 08/30/24 07:30 08/29/24 14:05 Omeprazole 20 Mg Capcr PO 20 mg DAILY@0730 MONSE Administration Vitamin B Complex/Vitamin C 1 tab 08/29/24 08:30 08/29/24 14:04 Vitamins B Comp W/C Tab PO 1 tab DAILY MONSE Administration IV IV Catheter Type [Right Hand] Saline Lock IV Catheter Gauge [Right Hand] 20 Diet Orders Category Date Time Status DIET [Regular/Normal] [DIET] Nutrition 08/29/24 Lunch Active Heart Healthy Eating [DIET] Nutrition 08/29/24 Dinner Active Diagnostics 08/28/24 Range/Units 21:15 WBC 9.04 (4.4-10.8) 10^3/uL RBC 3.71 L (3.93-5.22) 10^6/uL Hgb 10.1 L (11.2-15.7) g/dL Hct 31.7 L (36.0-46.0) % MCV 85 (80-95) fL MCH 27.2 (27.0-33.0) pg MCHC 31.9 L (32.0-36.0) % RDW 15.1 H (11.7-14.6) % Plt Count 310 (130-400) 10^3/uL MPV 9.5 (8.0-11.0) fL Immature Gran % 0.4 % Neutrophils % 91.7 % Lymphocytes % 3.5 % Monocytes % 4.1 % Eosinophils % 0.0 % Basophils % 0.3 % Nucleated RBC % 0.0 (0.0-0.3) % Absolute Neutrophils 8.28 H (1.2-6.7) 10^3/uL Absolute Lymphocytes 0.32 L (1.2-3.4) 10^3/uL Absolute Monocytes 0.37 (0.1-0.8) 10^3/uL Absolute Eosinophils 0.00 (0.0-0.7) 10^3/uL Absolute Basophils 0.03 (0.0-0.2) 10^3/uL Sodium 143 (136-145) mmol/L Potassium 4.4 (3.5-5.1) mmol/L Chloride 105 (98-107) mmol/L Carbon Dioxide 28.2 (21.0-32.0) mmol/L Anion Gap 9.8 (3-11) mmol/L BUN 25 H (7-18) mg/dL Creatinine 1.0 (0.55-1.02) mg/dL Est GFR (CKD-EPI 2020) 58.75 (mL/min/1.73m2) Glucose 146 H (74-106) mg/dL Calcium 9.6 (8.5-10.1) mg/dL Total Bilirubin 0.3 (0.2-1.0) mg/dL AST 38 H (15-37) U/L ALT 41 (14-59) U/L Alkaline Phosphatase 71 (46-116) U/L Ammonia < 10 L (11-32) umol/L Creatine Kinase 455 H (26-192) U/L Total Protein 8.4 H (6.4-8.2) g/dL Albumin 3.1 L (3.4-5.0) g/dL [id number] Documentation Fingerstick Glucose Start: 08/29/24 08:19 Freq: Status: Active Protocol: Activity Type Activity Date Activity User E-sign Co-sign Detail Recorded Client Recorded Date Recorded By Document 08/29/24 08:18 KELLI DADM(3) [id number] 08/29/24 08:19 BKG DAEMON(4) Intake and Output - 24 Hour Total 08/28/24 20:47 thru 08/29/24 14:11 Intake Total 130 Balance 130 Weight 56.5 kg Intake: IV 10 Oral 120 Falls Risk Assessment History of Falls Previous History 08/28/24 20:59 Contributing Factors Unstable,Impairments, 08/28/24 20:59 Incontinence,Medications Ambulatory Aids Uses ambulatory device + 08/28/24 20:59 Tubes/Lines None 08/28/24 20:59 Gait Evaluation W/any additional score 08/28/24 20:59 Cognition No cognitive impairment 08/28/24 20:59 Fall Total Score 77 08/28/24 20:59 Level of Risk Maximum Risk 08/28/24 20:59 Notes 08/29/24 10:33 Nursing Notes by Celia Hurtado Minimal response from patient when asked if she wanted lunch. VSS. Will attempt to rouse the patient again. Initialized on 08/29/24 10:33 - END OF NOTE 08/29/24 09:55 Nursing Notes by Celia Hurtado Patient not alert enough to take morning meds. Initialized on 08/29/24 09:55 - END OF NOTE v v v v v v v v v Sending and/or Receiving Nurses: Please use comment section below to note any information pertinent to the patient hand-off not included above. Information / Comments: Report received from: Celia RN @ [phone] (Emergency department)
[2024-08-29] MEDS: Lactated Ringers 1,000 ML 75 ML IV (17:38)
[2024-08-29] MEDS: Senna TAB 1 TAB PO (20:42)
[2024-08-29] MEDS: Atorvastatin 20 MG TAB PO (20:42)
[2024-08-29] MEDS: risperiDONE 0.25 MG TAB 1 MG PO (20:42)
[2024-08-29] MEDS: Mirtazapine 15 MG TAB 7.5 MG PO (20:43)
[2024-08-29] MEDS: Normal Saline Flush 10 ML SYR IVP (20:43)
[2024-08-29] MEDS: oxyCODONE 5 MG TAB PO (21:18)
[2024-08-30 02:43] VITALS: BP 140/83; PULSE 70; RESP 14; TEMP 36.5; O2SAT 93
[2024-08-30] MEDS: oxyCODONE 5 MG TAB PO ×4 (03:42→18:02)
[2024-08-30] MEDS: Ondansetron O.D.T. 4 MG TABEF PO (03:42)
[2024-08-30 07:42] VITALS: BP 135/74; PULSE 70; RESP 18; TEMP 36.9; O2SAT 95
--- NOTE | 2024-08-30 08:17 | CMACTNOTE_ITS ---
Date of service: 08/29/24 Time of Service: 12:00 Care Management Activity Note Activity Note Text Activity Note Text: CM was asked to consult on Tegan while she was in the ER on 08/29. Tegan never roused enough to talk with CM. She did not respond to light touch or voice. Tegan is s/p a fall. She has had several ER visits and admissions in the last month. CM spoke with Tegan's CM at [facility], and with HH- [facility]. Both stated that Tegan is failing at home. Her home care services do not seem to be enough, she is often found on the floor, covered in urine. At present, Tegan has HH RN 1-2x/week, PT 1x/week, OT has not started yet, as Tegan has been in the ER each time visit was attempted. Tegan also has a BASKET GRADER for 2h daily through her [employer] program. HH stated that they hve seen a big decline over the last 3 weeks. [facility] sent SNF referrals to [facility], the [facility] and [facility]. called each of these facilities. [facility] and the [facility] are full, [facility] did not respond. Tegan's children feel that she is no longer safe at home and did not want to pick her up. Tegan was admitted to observation. Referrals will be sent to more facilities.
--- NOTE | 2024-08-30 08:28 | PDOC.CMIN ---
Date of service: 08/30/24 Time of Service: 08:28 Care Management Initial Assmt Initial Assessment Reason for Hospitalization: s/p fall Failur to thrive Functional Status/Living Situation Patient Presentation: Tegan presented to the ED early yesterday morning. She was s/p a fall. Tegan was hospitalized from 08/18-08/23, and was in the ED on 08/26 and then again 08/28, all for the same reason. HH stated that Tegan is often on the floor covered in urine when her aides show up for visits. They stated that she has had a big decline in her ability to care for herself, despite her home care services. Tegan was admitted to observation, with the hope of finding STR bed for her. PT recommends STR vs LTC. Tegan was up in the bedside chair when CM met with her today. She was alert and very pleasant. She was reading the paper. She did state that things have not been going well at home, as she has been falling. She denied to CM that she sometimes does not accept her HH, only if I have already had a shower. Tegan stated that she does not want to go to SNF, but she may be interested in [facility]. CM will send referrals in anticipation. Tegan can always refuse any offer received. CM called Renetat, Tegan's daughter. Renetta was unable to talk at this time, as she was at work. We will hopefully touch base again today or tomorrow. Town of Residence: [place] Resides with: Alone Significant Other/Family: Out of area (Daughter, Renetta, is about 1 h away, son Amor is local, but not capable of physical help. Per HH, kids are burnt out.) Caregiver/Guardian: Prior to admission Tegan was receiving HH RN 1-2x/week, PT 1x/week and OT 1x/week. She often refused the services. She also had [employer] caregivers for 2h daily. 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) Instrumental Activities of Daily Living (ADLs): Requires support Physical Functioning/Mobility Assistive Device: walker, wheelchair Advance Directives Advance Directives: Do you have an Advance Directive: Y 11/06/12 18:01 AD On File at [facility]: Y 04/01/21 21:57 Date Asked 08/26/24 08/26/24 14:48 AD Date Reviewed 08/18/24 08/19/24 09:20 COLST On File at [facility] Yes 08/19/24 09:20 COLST Date Scanned 05/06/24 08/19/24 09:20 Code Status Resuscitation Status DNR/DNI Insurance Coverage/Financial Issues Insurance: Medicare LT Medicaid Care Team Visit Care Team Role Provider Type Mary Anne Stanton, SUDHIR NURSE PRACTITIONER Marixa Kurtz Primary Care Provider NON-[facility] STAFF PHYSICIAN Cristal Marin Other Providers INSTRUCTOR TAP DANCING Ca Srinivasan RDN, CDCES Other Providers CAKE FROSTER Abril Michael Other Providers INSTRUCTOR TAP DANCING Willa Jaramillo Other Providers INSTRUCTOR TAP DANCING Aranza Mahmood Other Providers OTHER Luisa Harris RN Other Providers INSTRUCTOR TAP DANCING Neil Gary RDN Other Providers CAKE FROSTER Dolores Key Other Providers INSTRUCTOR TAP DANCING Oscar Landin MD Emergency Provider [facility] STAFF PHYSICIAN Alverto Fuller MD Admit Provider [facility] STAFF PHYSICIAN Attending Provider Discharge Potential Discharge Needs: PCP F/U Appt Anticipated Barriers to Discharge: Bed availability Patient/Family Education Needs: Review discharge instructions, discuss Ask Me Three Transportation: RCT RCT Transportation: Wheel chair van Plan: Anticipate that Tegan will be transferred to SNF once a bed has been secured,vs home with the resumption of her HH services. She will f/u with her provider and continue per her plan of care. CM intends to send out SNF referrals today, but as today is Sunday, will not be able to f/u until Sunday. CM will continue to follow and update the plan and family as needed. Social Determinants of Health Screening Will the Patient Participate in the Screening?: Unable to obtain In the past 12 months, have you had to go without electric, gas, oil or water in your home?: choose not to answer Have you or anyone in your house had to go without enough food to eat?: choose not to answer Has lack of transportation kept you from medical appointments or from doing things needed for daily living?: choose not to answer Has anyone in your life made you feel unsafe or unsupported?: choose not to answer Social Determinants of Health Comments([facility] Details): pt is lethargic and unable to stay awake for questions, provider aware Health Related Social Needs Health related social needs: material hardship(utilities) (Z59.12) [facility] All Active Problems (Updated 08/30/24 @ 11:15 by Mary Anne Stanton NP) Discharge planning issues (Acute) Failure to thrive in adult (Acute) On deep vein thrombosis (DVT) prophylaxis (Acute) Weakness (Acute) Falls frequently (Acute) Trouble talking (Acute) Seizure (Chronic) Psychiatric symptoms (Acute) Acute UTI (Acute) Acute kidney injury superimposed on CKD (Acute) Ambulatory dysfunction (Acute) Lives in half-way (Acute) Deficit in activities of daily living (ADL) (Acute) Closed fracture of distal end of radius (Acute) Palliative care patient (Acute) Closed fracture of left distal radius (Acute) Closed fracture of right distal radius (Acute) Heart murmur (Acute) Depression (Chronic) At high risk for skin breakdown (Acute) Periorbital edema (Acute) Hiatal hernia (Chronic) moderate Coronary artery calcification seen on CAT scan (Acute) Diverticula of colon (Acute) DJD (degenerative joint disease), lumbar (Acute) History of CVA (cerebrovascular accident) (Acute) remote Fracture of both wrists (Acute) Goiter (Acute) Fibromyalgia (Chronic) KWAME (obstructive sleep apnea) (Chronic) Chronic pain (Chronic) Movement disorder (Acute) Chronic renal insufficiency, stage III (moderate) (Acute) Anemia (Chronic) Hypertension (Chronic) Medical History AMS (altered mental status) Dehydration Rhabdomyolysis Fall ACP (advance care planning) Primary osteoarthritis of left knee We will see the patient back in 4-1/2 months for possible repeat Synvisc 1 in her left knee would consider x-ray in her right knee if she is still significantly symptomatic Osteoarthritis of right knee Steroid injection: 04/05/2020 Has had previous viscosupplementation injections. 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) As treatment for a femoral neck fracture (DOI: 09/16/2020) History of back surgery Hx of cholecystectomy Social History Smoking/Tobacco Use Status: Never Smoking risk assessment performed?: Yes Alcohol Intake: never Drug use: Never Substance use type: does not use Housing: apartment Do you feel safe at home: Yes Do you feel safe in your relationship?: Yes Additional Social history: lives alone, has caregiver that come 7 days a week, do all the meds Readmission Within the Past 30 Days Yes or No: Yes Date of First Admission Date of 1st Admission: 08/18/24 Date of this Admission Date of Admission: 08/29/24 This admission was: Through ED Office Visit Since 1st Admission Have you seen your PCP in the office since discharge?: No Had an appointment Been Scheduled?: No Describe barriers for scheduling or getting an appointment: discharged on a Sunday and unable to make the appointment prior to discharge Speicalist Appointments Have you seen any other specialist since your 1st Admission?: No If the patient had a VNA ordered Did the patient have a VNA order?: Yes Did you call the VNA before you came?: Yes (VNA was present) ED visits How many ED visits in the past 12 months: 6
[2024-08-30] MEDS: levETIRAcetam 500 MG TAB PO ×2 (09:11→20:26)
[2024-08-30] MEDS: Aspirin E.C. 81 MG TABEC PO (09:11)
[2024-08-30] MEDS: Omeprazole 20 MG CAPCR 40 MG PO (09:11)
[2024-08-30] MEDS: Vitamins B Comp w/C TAB 1 TAB PO (09:11)
[2024-08-30] MEDS: amLODIPine 5 MG TAB 10 MG PO (09:12)
[2024-08-30] MEDS: Normal Saline Flush 10 ML SYR IVP ×2 (09:52→20:27)
--- NOTE | 2024-08-30 10:51 | PHA.REVIEW2 ---
Pharmacy Admission Review Admission Clinical Review Admission Pharmacy Review: Discharge planning issues (Acute) Failure to thrive in adult (Acute) On deep vein thrombosis (DVT) prophylaxis (Acute) Weakness (Acute) Falls frequently (Acute) Seizure (Acute) Psychiatric symptoms (Acute) Ambulatory dysfunction (Acute) sulfamethoxazole (From Bactrim) Allergy (Verified 08/29/24 13:18) Diarrhea trimethoprim (From Bactrim) Allergy (Verified 08/29/24 13:18) Diarrhea morphine Adverse Reaction (Intermediate, Unverified 08/29/24 13:18) Psychosis baclofen Adverse Reaction (Unknown, Unverified 08/29/24 13:18) Unknown chlorthalidone Adverse Reaction (Unknown, Unverified 08/29/24 13:18) Unknown codeine Adverse Reaction (Unknown, Unverified 08/29/24 13:18) Unknown dextromethorphan Adverse Reaction (Unknown, Unverified 08/29/24 13:18) Unknown gabapentin (From Neurontin) Adverse Reaction (Unknown, Unverified 08/29/24 13:18) Unknown hydrochlorothiazide Adverse Reaction (Unknown, Unverified 08/29/24 13:18) Unknown pregabalin Adverse Reaction (Unknown, Unverified 08/29/24 13:18) Dopey Resuscitation Status DNR/DNI Height 5 ft 5 in Weight 52.8 kg Pharmacy Admission Review Renal Dosing Renal Dosing: BUN 25 mg/dL (7-18) H 08/28/24 21:15 Creatinine 1.0 mg/dL (0.55-1.02) 08/28/24 21:15 Medications needing adjustments: Reviewed (CrCl 39.95 mL/min) List of meds needing interventions: Current medications are okay Anticoagulation Anticoagulation: Hgb 10.1 g/dL (11.2-15.7) L 08/28/24 21:15 Hct 31.7 % (36.0-46.0) L 08/28/24 21:15 Plt Count 310 10^3/uL (130-400) 08/28/24 21:15 Creatinine 1.0 mg/dL (0.55-1.02) 08/28/24 21:15 DVT Prophylaxis: Intervened (changed from 30mg to 40mg due to CrCl > 30) Medications: Enoxaparin (40mg daily) Opiate Usage Evaluate Pain Scale/Pains Meds: Reviewed (oxycodone 5mg q4h PRN - 15mg / 24 hrs. Pain level 9 at 0911 this AM, shoulder pain per provider) Scheduled Bowel Reg ordered if on Opiates?: Yes (Senna + PRN Miralax) Relevant Labs Relevant Labs: Sodium 143 mmol/L (136-145) 08/28/24 21:15 Potassium 4.4 mmol/L (3.5-5.1) 08/28/24 21:15 Chloride 105 mmol/L (98-107) 08/28/24 21:15 Electrolytes, C-Reactive P, ESR: Reviewed (Refused labs today per nurse) Cardiac Review BP, HR, EF%: Reviewed (HR and BP WNL) List meds needing interventions: Has order for amlodipine 10mg daily QTc Review QTc: Reviewed (484 from 08/26/24) IV to PO Switch IV Medications: Reviewed Home Meds Home Med List reviewed: Reviewed Relevent Home Meds Not ordered & why?: CBD, folic acid, lorazepam (PRN), Narcan (PRN) and Macrobid Current Meds Current Medication Order Review: Intervened Comments: Reached out to provider as order for omeprazole was put in as 20mg daily but home med list has 40mg daily. Provider changed the order.
--- NOTE | 2024-08-30 11:01 | PGE_ITS ---
Date of Service Date of service: 08/30/24 Time of Service: 11:01 Assessment and Plan Assessment and plan (1) Dehydration: Status: Resolved Assessment and plan: rehydrated and taking po fluids. (2) Falls frequently: Status: Acute Assessment and plan: Fall precaution for ambulatory dysfunction PT consultation multiple contusions pain management, ice. (3) Seizure: Status: Chronic Assessment and plan: On Keppra BID Needs OPT EEG (4) Failure to thrive in adult: Status: Acute Assessment and plan: Nutrition consult (5) Depression: Status: Chronic Assessment and plan: On home medicines (6) On deep vein thrombosis (DVT) prophylaxis: Status: Acute Assessment and plan: On LMWH (7) Discharge planning issues: Status: Acute Assessment and plan: CM attempting to find placement Discussed with Dr. Fuller Subjective Subjective Patient reports: still having pain (right shoulder and hand) and tolerating liquids well; denies shortness of breath Exam Narrative Exam Narrative: Cachectic, frail female older than stated age no acute distress sitting in recliner complaining of right shoulder pain will not range at. As a laceration which is healing old surgical scar well-healed bruising anterior and posterior in various stages of healing. Full range of motion to her elbow and wrist. Hand is swollen distally reports good sensation will not hand digital director. No obvious deformity in her hand or fingers. Shoulder is swollen extremely tender to touch especially anterior. Moves all other extremities with extensive bruising various stages of healing. Neurologic she is awake alert responding appropriately blunted mood and affect, no behavioral disturbance respirations are even and unlabored breath sounds diminished cardiovascular regular rate and rhythm good pulses distal skin is pale. Objective Last Vital Signs Temp 36.9 C 08/30/24 07:42 Pulse 70 08/30/24 07:42 Resp 18 08/30/24 07:42 BP 135/74 08/30/24 07:42 Pulse Ox 95 08/30/24 07:42 Time Spent with Patient Time Spent with Patient: 35-49 minutes Time was spent: preparing to see the patient(eg.review tests), obtaining and/or reviewing separately otained hiistory, ordering medications,tests, procedures, indepentently interpreting results and counseling the patient
--- NOTE | 2024-08-30 11:25 | PTTR_ITS ---
PT Notes Visit Reasons: fall Inpatient Physical Therapy Treatment Note [facility] Date: 08/30/2024 SUBJECTIVE: Patient reports that her right arm is painful and does not wish to have it touched. She was offered ice but declined. OBJECTIVE: ? PAIN: Entire right UE Therapeutic Activities (94207q[1]): Direct one-on-one instruction in dynamic activities to improve functional performance. ? BED MOBILITY/TRANSFERS? Supine-sit: Mod assist of 1 and standby assist of second person ? Sit-stand: Min assist x 2? Stand-sit: Min assist x 2 ? Bed?chair: Able to ambulate short distance to chair.? Assistive Device: Hemiwalker left with max assist to advance walker and min assist x 2 for ambulation to chair. ? Assist: Min assist x 2 ? Distance:? 5 feet ? Deviation: Shuffling gait? Provided skilled cues and instruction on performance and technique throughout. ? Therapeutic Exercises (71745l[1]): Direct one-on-one instruction in therapeutic exercises to develop strength, endurance, range of motion and flexibility. ? Exercises completed supine in bed: Ankle pumps x 10 Active assisted heel slides x (B) 5 Hip abduction with assist (B) x 10 Elbow flexion/extension left x 10 Shoulder flexion left x 10? Provided skilled instruction in proper exercise performance Provided skilled manual cues to facilitate proper muscle recruitment and/or form: Quad sets but patient was unable to perform this exercise. ASSESSMENT:?Patient was agreeable and willing to work with PT. Required max as sist to navigate hemiwalker. Hemiwalker was utilized due to complaint of significant right upper extremity pain. It may be worth trying a front wheeled rolling walker for p.m. session if pain is better managed. PLAN: Continue PT 1-2 times per day x 7 days. TREATMENT CODE/TIME: 39420 and 66790. 25 minutes DISCHARGE RECOMMENDATION: SNF
[2024-08-30 11:43] VITALS: BP 127/85; PULSE 81; RESP 20; TEMP 36.9; O2SAT 92
--- NOTE | 2024-08-30 13:39 | PT.INTREAT ---
PT Notes Visit Reasons: fall Inpatient Physical Therapy Treatment Note [facility] Date: 08/30/2024 SUBJECTIVE: Patient reports that her right arm is feeling better and that the medication is finally helping. She reports that she would like to try walking with a rolling walker as this is what she uses at home. OBJECTIVE: ? PAIN: Entire right UE Therapeutic Activities (89882p[1]): Direct one-on-one instruction in dynamic activities to improve functional performance. ? BED MOBILITY/TRANSFERS? Sit?supine: Min assist of 1 Reposition in bed mod A of 1 for trunk, able to use legs to help boost herself up in bed. ? Sit-stand: Min assist x 1 and stand by of 2nd person ? Stand-sit: Contact-guard assist x 2? ? Chair?commode: Contact-guard to min assist of 2 with front wheel rolling walker ? GAIT ? Assistive Device: Front wheeled rolling walker Assist: CG min assist x 1 with standby assist second person, positive loss of balance x 1 with min assist to recover ? Distance:? 10 feet ? Deviation: Shuffling gait? Provided skilled cues and instruction on performance and technique throughout. ? ASSESSMENT:?Improvement in sit to stand transfers as well as bed mobility this afternoon. Patient did well using a front wheeled rolling walker and did not complain of right upper extremity pain while doing so. PLAN: Continue PT 1-2 times per day x 7 days. TREATMENT CODE/TIME: 71441 x 1 (15 minutes) and 22719 (5 minute) Total time 20 minutes DISCHARGE RECOMMENDATION: SNF
[2024-08-30 15:07] VITALS: BP 117/69; PULSE 77; RESP 18; TEMP 37; O2SAT 95
[2024-08-30] MEDS: Acetaminophen 325 MG TAB 650 MG PO ×2 (18:02→19:48)
[2024-08-30 19:17] VITALS: BP 126/77; PULSE 82; RESP 18; TEMP 37; O2SAT 93
[2024-08-30] MEDS: Atorvastatin 20 MG TAB PO (19:46)
[2024-08-30] MEDS: Senna TAB 1 TAB PO (19:46)
[2024-08-30] MEDS: risperiDONE 0.25 MG TAB 1 MG PO (19:47)
[2024-08-30] MEDS: Mirtazapine 15 MG TAB 7.5 MG PO (19:48)
[2024-08-30] MEDS: Melatonin 3 MG TAB 9 MG PO (21:31)
[2024-08-30 22:38] VITALS: BP 139/62; PULSE 74; RESP 19; TEMP 36.8; O2SAT 94
[2024-08-31 02:55] VITALS: BP 150/83; PULSE 68; RESP 18; TEMP 36.2; O2SAT 97
[2024-08-31 03:19] LABS: Abs Immature Grans 0.02 10^3/uL (0.0-0.06); Absolute Basophil Count 0.05 10^3/uL (0.0-0.2); Absolute Eosinophil Count 0.07 10^3/uL (0.0-0.7); Absolute Lymphocyte Count 1.01 10^3/uL (1.2-3.4); Absolute Monocyte Count 0.63 10^3/uL (0.1-0.8); Absolute Neutrophil Count 3.94 10^3/uL (1.2-6.7); Basophils % 0.9 %; Eosinophils % 1.2 %; HCT 25.5 % (36.0-46.0); Immature Grans % 0.3 %; Lymphocytes % 17.7 %; MCH 27.3 pg (27.0-33.0); MCHC 31.8 % (32.0-36.0); MCV 86 fL (80-95); Neutrophils % 68.9 %; Platelet Count 228 10^3/uL (130-400); RBC 2.97 10^6/uL (3.93-5.22); RDW 15.2 % (11.7-14.6); WBC 5.72 10^3/uL (4.4-10.8)
[2024-08-31 03:24] LABS: HGB 8.1 g/dL (11.2-15.7)
[2024-08-31 03:30] LABS: Anion Gap 6.1 mmol/L (3-11); BUN 26 mg/dL (7-18); CO2 27.9 mmol/L (21.0-32.0); CREATININE 0.9 mg/dL (0.55-1.02); Chloride 108 mmol/L (98-107); Estimated GFR 66.67 (mL/min/1.73m2); Glucose 120 mg/dL (74-106); Sodium 142 mmol/L (136-145)
[2024-08-31] MEDS: oxyCODONE 5 MG TAB PO (04:40)
[2024-08-31 07:16] VITALS: BP 136/84; PULSE 78; RESP 18; TEMP 36.3; O2SAT 94
[2024-08-31] MEDS: Acetaminophen 325 MG TAB 650 MG PO ×3 (08:59→17:45)
[2024-08-31] MEDS: levETIRAcetam 500 MG TAB PO (08:59)
[2024-08-31] MEDS: Omeprazole 20 MG CAPCR 40 MG PO (08:59)
[2024-08-31] MEDS: Aspirin E.C. 81 MG TABEC PO (09:00)
[2024-08-31] MEDS: Vitamins B Comp w/C TAB 1 TAB PO (09:00)
[2024-08-31] MEDS: amLODIPine 5 MG TAB 10 MG PO (09:00)
[2024-08-31] MEDS: Enoxaparin 40 MG/0.4 ML SYR SC (09:01)
[2024-08-31] MEDS: Normal Saline Flush 10 ML SYR IVP ×2 (09:01→17:48)
--- NOTE | 2024-08-31 10:16 | PTTR_ITS ---
PT Notes Visit Reasons: fall Inpatient Physical Therapy Treatment Note [facility] Date: 08/31/24 PRECAUTIONS:None SUBJECTIVE: Patient reports that her right upper extremity feels much better. She reports that she forgot to use her walker at home and reports that she fell twice because of this. OBJECTIVE: ?Pt sitting in chair at start of PT rx. Sit - stand: CG of 1 Stand -sit: CG of 1 Gait Training (18162k[1]): Direct one-on-one instruction and skilled instruction in: [x] employing an assistive device [] modified weight-bearing status [x] movement sequencing [x] turning and movement with proper form [x] Provided verbal cues for equipment management and technique [x] Provided instruction in gait pattern [x] Patient education regarding pacing and breathing techniques to maximize activity tolerance? GAIT? Assistive Device: FWW ? Assist: CG of 1 ? Distance:? 100 ft x 2 ? Deviation: Pt had some difficult negotiating turns but was able to tinajero ccessfully do this with slowing down and verbal cueing. ? Exercises ? Seated: ankle pumps x 10, LAQ x 10, marching x 10 ASSESSMENT:? Pt did well with gait and use of FWW. No c/o right UE pain with use of the walker and pt was observed to be using right UE to push up from a seated position. PLAN: Cont PT 1-2 x/day x 7 days per week per treatment plan. TREATMENT CODE/TIME: 26297 20 minutes DISCHARGE RECOMMENDATION: SNF
[2024-08-31] MEDS: Polyethylene Glycol 3350 17 GM PACKET PO (10:49)
[2024-08-31 11:03] VITALS: BP 153/73; PULSE 80; RESP 18; TEMP 36.8; O2SAT 96
--- NOTE | 2024-08-31 11:26 | W.PM.PROGNOT ---
Date of Service Date of service: 08/31/24 Time of Service: 11:26 Assessment and Plan Assessment and plan (1) Dehydration: Status: Resolved Assessment and plan: rehydrated and taking po fluids. (2) Falls frequently: Status: Acute Assessment and plan: Fall precaution for ambulatory dysfunction PT consultation multiple contusions pain management, ice. (3) Seizure: Status: Chronic Assessment and plan: On Keppra BID Needs OPT EEG (4) Failure to thrive in adult: Status: Acute Assessment and plan: Nutrition consult (5) Depression: Status: Chronic Assessment and plan: On home medicines (6) On deep vein thrombosis (DVT) prophylaxis: Status: Acute Assessment and plan: On LMWH (7) Discharge planning issues: Status: Acute Assessment and plan: care management following for discharge planning Discussed with Dr. Mckoy Subjective Subjective Patient reports: still having pain, tolerating liquids well, voiding w/o difficulty and afebrile; denies shortness of breath Exam Narrative Exam Narrative: Cachectic, frail female older than stated age no acute distress sitting in recliner complaining of right shoulder pain will not range at. As a laceration which is healing old surgical scar well-healed bruising anterior and posterior in various stages of healing. Full range of motion to her elbow and wrist. 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 No obvious deformity in her hand or fingers. Shoulder is swollen extremely tender to touch especially anterior. Moves all other extremities with extensive bruising various stages of healing. Neurologic she is awake alert responding appropriately blunted mood and affect, no behavioral disturbance respirations are even and unlabored breath sounds diminished cardiovascular regular rate and rhythm good pulses distal skin is pale. Objective Last Vital Signs Temp 36.8 C 08/31/24 11:03 Pulse 80 08/31/24 11:03 Resp 18 08/31/24 11:03 BP 153/73 H 08/31/24 11:03 Pulse Ox 96 08/31/24 11:03 Laboratory Results - last 24 hr 08/31/24 03:10 WBC 5.72 RBC 2.97 L Hgb 8.1 L D Hct 25.5 L MCV 86 MCH 27.3 MCHC 31.8 L RDW 15.2 H Plt Count 228 MPV 10.0 Immature Gran % 0.3 Neutrophils % 68.9 Lymphocytes % 17.7 Monocytes % 11.0 Eosinophils % 1.2 Basophils % 0.9 Nucleated RBC % 0.0 Absolute Neutrophils 3.94 Absolute Lymphocytes 1.01 L Absolute Monocytes 0.63 Absolute Eosinophils 0.07 Absolute Basophils 0.05 Sodium 142 Potassium 4.0 Chloride 108 H Carbon Dioxide 27.9 Anion Gap 6.1 BUN 26 H Creatinine 0.9 Est GFR (CKD-EPI 2020) 66.67 Glucose 120 H Calcium 9.0 Time Spent with Patient Time Spent with Patient: 35-49 minutes Time was spent: preparing to see the patient(eg.review tests), obtaining and/or reviewing separately otained hiistory, ordering medications,tests, procedures, indepentently interpreting results and counseling the patient
--- NOTE | 2024-08-31 12:05 | PDOC.CMPRO ---
Date of service: 08/31/24 Time of Service: 12:05 Care Management Progress Note Progress Note Text Progress Note Text: Tegan was sitting up in the bedside chair when CM met with her today. She was notably upset, and stated that her son has locked her out of her home, and will not come to pick her up. She is not sure she is ready to go home yet, but these events have upset her. Apparently, her son has a girlfriend that is not a fan of Tegan's. Her heart is broken. Tegan is willing to go to a longterm for a short time. Her goal at this point is to still go home. Tegan stated that [facility] is her top choice. CM discussed with Tegan, that if she gets an offer to any of the places referrals were sent to, she really needs accept, or she will end up with bills from the hospital, or she can go home. She wants the STR. CM will place a referral to [facility] in anticipation of Tegan returning home in a couple of weeks. She is aware of this and likes this idea. Daughter, Renetta, should be visiting today. CM will discuss this plan with her as well Discharge Potential Discharge Needs: Other (rehab bed) Anticipated Barriers to Discharge: Bed availability Patient/Family Education Needs: Review discharge instructions, discuss Ask Me Three Transportation: [facility] Transportation: Wheel chair van Plan: CM will f/u on referrals sent this weekend on Friday 09/01. Anticipate that Tegan will receive a bed offer as she has a good payor source. Tegan will transfer to SNF and f/u with the facility provider and her plan of care. If no bed offer, home with full services and her [facility] caregivers, and PCP f/u. CM will continue to follow and update the plan and family as needed. Social Determinants of Health Screening Will the Patient Participate in the Screening?: Unable to obtain In the past 12 months, have you had to go without electric, gas, oil or water in your home?: choose not to answer Have you or anyone in your house had to go without enough food to eat?: choose not to answer Has lack of transportation kept you from medical appointments or from doing things needed for daily living?: choose not to answer Has anyone in your life made you feel unsafe or unsupported?: choose not to answer Social Determinants of Health Comments(SDOH Details): pt is lethargic and unable to stay awake for questions, provider aware Health Related Social Needs Health related social needs: material hardship(utilities) (Z59.12)
--- NOTE | 2024-08-31 13:28 | PT.INTREAT ---
Date of service: 08/31/24 Time of Service: 12:35 PT Notes Visit Reasons: fall Inpatient Physical Therapy Treatment Note [facility] Date: 08/31/24 PRECAUTIONS:None SUBJECTIVE: Patient reports that she ate too much for lunch and feels like she can't walk as far. OBJECTIVE: ?Pt sitting in chair at start of PT rx. Sit - stand: CG of 1 Stand -sit: CG of 1 Sit to supine: CG of 1 to min assist. Min asssit required to help reposition trunk once supine. Gait Training (19959d[1]): Direct one-on-one instruction and skilled instruction in: [x] employing an assistive device [] modified weight-bearing status [x] movement sequencing [x] turning and movement with proper form [x] Provided verbal cues for equipment management and technique [x] Provided instruction in gait pattern [x] Patient education regarding pacing and breathing techniques to maximize activity tolerance? GAIT? Assistive Device: FWW ? Assist: CG of 1 ? Distance:? 60 ft x 1 ? Deviation: Pt had some difficult negotiating turns but was able to successfully do this with slowing down and verbal cueing. ? ROM: pt was able to flex right shoulder to 90 degrees without c/o pain ASSESSMENT:? Pt was more fatigued this pm. Gait was slightly unsteady but did not require an increase in assistance. PLAN: Cont PT 1-2 x/day x 7 days per week per treatment plan. TREATMENT CODE/TIME: 41442 20 minutes DISCHARGE RECOMMENDATION: SNF
[2024-08-31 14:39] VITALS: BP 136/90; PULSE 74; RESP 18; TEMP 37; O2SAT 96
[2024-08-31 19:21] VITALS: BP 158/94; PULSE 89; RESP 18; TEMP 36.8; O2SAT 97
--- NOTE | 2024-08-31 19:41 | NUR.NOTE ---
Pt states that she has had all the medications she needs for today. She only wants to call a taxi and leave the hospital. All evening meds were documented not given because patient refused to take them. Pt stated being ok waiting until tomorrow to talk with care managers about discharge plans. Nursing Note:
[2024-09-01 02:57] VITALS: BP 95/84; PULSE 77; RESP 20; TEMP 36.9; O2SAT 97
[2024-09-01] MEDS: oxyCODONE 5 MG TAB PO ×2 (03:06→10:23)
[2024-09-01 07:41] VITALS: BP 138/86; PULSE 67; RESP 16; TEMP 36.6; O2SAT 97
--- NOTE | 2024-09-01 07:59 | NUR.NOTE ---
patient sleeping at this time, VSS, no evidence of pain or discomfort, shades opened to aid in sleep schedule, will complete meds once pt is awake, pending d/c to STR. Bed low/locked, call spence in reach, bed alarm/angela on. Nursing Note:
--- NOTE | 2024-09-01 08:10 | W.NUTCONSULT ---
Date of service: 09/01/24 Time of Service: 08:10 Nutritional Consult ASSESSMENT: nutrition consult received due to patient history of low appetite/intake. Please see nutrition note 08/21/24 when patient was last admitted to this facility. Current BMI 19.4. Weight hx seems inconsistent with 4 kg swing noted in same day. Overall though, weight trend is down from more consistently being 58kg. Pt with slightly high total protein lab on 08/28/24 (8.4) with low albumin 3.1 Lytes wnl. not vitamin D lab in recent history. Mirtazapine ordered at 7.5mg HS. Pt with stress at home- apparently feels she cannot go back (son locked her out) and from note may need assisted services. NUTRITIONAL DIAGNOSIS: inadequate intake related to multiple chronic conditions INTERVENTION: - consider increase in mirtazpine or alternate appetite stimulant -will offer oral nutritioin supplements at meals and nourishment times -would recommend vitamin D lab due to no oral supplement and little sun exposure and diet sources. MONITORING AND EVALUATION: will monitor po intake, toleration/acceptance of ONS, weight, labs Time Spent in Nutritional Counseling and Treatment: 10 minutes
--- NOTE | 2024-09-01 09:16 | W.PM.PROGNOT ---
Date of Service Date of service: 09/01/24 Time of Service: 09:16 Assessment and Plan Assessment and plan (1) Dehydration: Status: Resolved Assessment and plan: Ongoing oral hydration. BMP (2) Falls frequently: Status: Acute Assessment and plan: Ongoing fall precaution for ambulatory dysfunction Ongoing PT consultation Multiple contusions/ bruises resolving Ongoing pain management: APAP scheduled, transition oxycodone to BID dosing of oxycontin , ice. (3) Seizure: Status: Chronic Assessment and plan: Continue Keppra BID Recommendation from [facility] neuro for in early 08/2024: OPT EEG (4) Failure to thrive in adult: Status: Acute Assessment and plan: Nutrition consult completed : Please read notes Vit D pending Boost TID Protein liquid TID Speech consult- not witness chocking but delayed swallowing/keeps food in oral cavity (5) Depression: Status: Chronic Assessment and plan: On home medicines Remeron increased to 15 mg PO HS (6) On deep vein thrombosis (DVT) prophylaxis: Status: Acute Assessment and plan: Continue LMWH (7) Discharge planning issues: Status: Acute Assessment and plan: Care management following for discharge planning D/c probable for 09/02/[address] Mckoy Subjective Subjective Patient reports: no new complaints, feels better, tolerating liquids well, voiding w/o difficulty and bowel movement; denies tolerating a regular diet (limited intake d/t preferred food), diarrhea, nausea, vomiting, shortness of breath or fever Exam Narrative Exam Narrative: 73 y.o female patient looking of stated age, frail appearing alert and oriented X2 -GCS 15, nonfocal, nonicteric sclera, S1-S2 regular, positive radial and pedal pulses, clear lungs with decreased bases, abdomen is nonacute and nontender, bowel are present, no CVA tenderness, moist oral mucous membranes, moves all 4 extremities, no rash to exposed skin Objective Last Vital Signs Temp 36.6 C 09/01/24 07:41 Pulse 67 09/01/24 07:41 Resp 16 09/01/24 07:41 BP 138/86 09/01/24 07:41 Pulse Ox 97 09/01/24 07:41 Time Spent with Patient Time Spent with Patient: >50 minutes Time was spent: preparing to see the patient(eg.review tests), obtaining and/or reviewing separately otained hiistory, ordering medications,tests, procedures, referring, communicating with other health rn wound care, indepentently interpreting results, counseling the patient and care coordination
[2024-09-01] MEDS: amLODIPine 5 MG TAB 10 MG PO (10:22)
[2024-09-01] MEDS: Acetaminophen 325 MG TAB 650 MG PO ×2 (10:22→19:45)
[2024-09-01] MEDS: Omeprazole 20 MG CAPCR 40 MG PO (10:22)
[2024-09-01] MEDS: levETIRAcetam 500 MG TAB PO ×2 (10:22→19:45)
[2024-09-01] MEDS: Vitamins B Comp w/C TAB 1 TAB PO (10:22)
[2024-09-01] MEDS: Normal Saline Flush 10 ML SYR IVP ×2 (10:23→19:42)
[2024-09-01] MEDS: Enoxaparin 40 MG/0.4 ML SYR SC (10:23)
[2024-09-01] MEDS: Aspirin E.C. 81 MG TABEC PO (10:23)
[2024-09-01 11:36] VITALS: BP 150/83; PULSE 80; RESP 16; TEMP 36.6; O2SAT 96
--- NOTE | 2024-09-01 11:58 | NUR.NOTE ---
patient alert to self only today, minimal verbal interaction mostly consisting of yes and no answers. Patient ambulated with x1 assist (PT) to chair. Helped during breakfast, only ate pudding. Patient sleeping at this time, VSS, no evidence of pain at this time, given tylenol and oxycodone earlier for reported pain, pt frequently was saying ouch this Am and holding R arm. AM bed bath completed, mepilex dressings replaced. Pending rehab placement. Chair alarm on, call spence in reach. Nursing Note:
--- NOTE | 2024-09-01 12:02 | PT.INTREAT ---
PT Notes Visit Reasons: fall Inpatient Physical Therapy Treatment Note [facility] Date: 09/01/24 PRECAUTIONS:standard, fall risk SUBJECTIVE: Pt with one word responses ouch, no , yes OBJECTIVE: ?(1st session) Pt in bed pt not responding to questions. Eyes open (2nd session) Pt seated in chair with eyes open head up able to state she wanted to use the bathroom. (am session) Therapeutic activity supine to sit Mod A with poor initiation. Once at EOB pt able to sustain sitting. Sit - stand: min A of 1 Stand -sit: CG of 1 Sit to supine: CG of 1 to min assist. Min asssit required to help reposition trunk once supine. (2nd Session) sit to stand x 4 trials min A and verbal and tactile cues for hand placement Surface to surface transfers with FWW CGA cues for safe approach to align body with surface prior to sitting sit to supine CGA , VCs and increased time to get BLE into bed. Pt required verbal instruction to lift LEs onto bed Direct one-on-one instruction and skilled instruction in: [x] employing an assistive device [x] movement sequencing [x] turning and movement with proper form [x] Provided verbal cues for equipment management and technique [x] Provided instruction in gait pattern [x] Patient education regarding pacing and breathing techniques to maximize activity tolerance? (am) Facilitated safe and correct performance of level surface ambulation covering a distance of 25 feet x2 using use front wheeled walker with contact-guard assist and wheelchair follow for safety. Did not report of any increased pain. Denied headache, chest pain, and lightheadedness throughout activity. Minimal verbal cueing provided for AD management, directional changes, and posture. Deviation: Pt had some difficult negotiating turns but was able to successfully do this with slowing down and verbal cueing. ? (PM) Facilitated safe and correct performance of level surface ambulation covering a distance of [id number] using use front wheeled walker with contact-guard assist and wheelchair follow for safety. Did not report of any increased pain. Denied headache, chest pain, and lightheadedness throughout activity. Minimal verbal cueing provided for AD management, directional changes, and posture. ? ROM: pt was able to flex right shoulder to 90 degrees without c/o pain ASSESSMENT:? Pt with minimal engagement in morning session. Withdrawn with head in downward position but able to follow instructions. During second session , pt more alert able to follow instructions answered all questions forming sentences. Pt able to express need for bathroom. Pt with improvement in quality of movement and management of FWW as well. Uncertain if timing of medication has effect on pt's level of alertness. Pt also noted with wet vocal quality during second session. Nurse aware and requested Speech therapy evaluation. PLAN: Cont PT 1-2 x/day x 7 days per week per treatment plan. TREATMENT CODE/TIME: 1st session: 74318 x 19 mins for 1 unit/ [id number] 2nd session: 20229 x 24 mins for 2 units/ [id number] DISCHARGE RECOMMENDATION: SNF
--- NOTE | 2024-09-01 14:24 | CMPROGNOTE_ITS ---
Date of service: 09/01/24 Time of Service: 14:24 Care Management Progress Note Progress Note Text Progress Note Text: Tegan was sitting up in the bedside chair when CM met with her today. Her RN was feeding her a yogurt. Tegan looked at CM blankly, and was asked, she stated that she did not remember CM from yesterday. Tegan received offers to [facility], [facility], and [facility] today. [facility] discussed with Renetta, Tegan's daughter, before approaching Tegan to see if she had a preference. Renetta was hoping for [facility], as it would be the easiest commute. The offer to [facility] was accepted after speaking with Tegan, who agrees with this plan. [facility] CM was notified, as well as HH. Of note, CM asked Tegan's children if they may be able to transport her tomorrow, neither is available. Contact at [facility] is Simi [phone]. Discharge Potential Discharge Needs: Other (follow up with the [facility] provider.) Anticipated Barriers to Discharge: None Identified Patient/Family Education Needs: Review discharge instructions, discuss Ask Me Three Transportation: [facility] (Private vehicle vs wheelchair van.) Plan: Anticipate that Tegan will transfer to the [facility] tomorrow. She will f/u with the facility provider, and continue per her plan of care. She will transport via [facility] private vehicle. [facility] is working on transportation today, as the drive is long and she is expected prior to 11 am. Social Determinants of Health Screening Will the Patient Participate in the Screening?: Unable to obtain In the past 12 months, have you had to go without electric, gas, oil or water in your home?: choose not to answer Have you or anyone in your house had to go without enough food to eat?: choose not to answer Has lack of transportation kept you from medical appointments or from doing things needed for daily living?: choose not to answer Has anyone in your life made you feel unsafe or unsupported?: choose not to answer Social Determinants of Health Comments(SDOH Details): pt is lethargic and unable to stay awake for questions, provider aware Health Related Social Needs Health related social needs: material hardship(utilities) (Z59.12)
[2024-09-01 15:46] VITALS: BP 129/75; PULSE 78; RESP 18; TEMP 37.4; O2SAT 96
--- NOTE | 2024-09-01 17:10 | W.SPSTE ---
Date of service: 09/01/24 Time of Service: 16:40 Subjective Clinical (Bedside) Swallow Evaluation Speech Language Pathology Referred by: Enid Bonner Referral Type: Clinical Swallow Evaluation Reason for Referral/HPI: Tegan Ashton is a 73 yo female adm to [facility] s/p recurrent falls with dehydration and concern for safety living at home. She was recently admitted to [facility] earlier this month after being found on the ground. Tegan has a history of seizures, prior CVA. At last admission she was seen by [employer] and MBSS was recommended/planned, though she could not participate due to somnolence. [employer] IMPRESSIONS & RECOMMENDATIONS: Tegan was seen with dinner tray this date. She was alert and awake though had minimal verbal responses mmmhmm. She did answer Cold when taking sip of liquid or when touched by this clinician's hands. Oral mechanism examination was notably limited due to patient refusal. She accepted 1:1 assist for sips of thin liquid and mildly thick liquid via straw and bites of macaroni and cheese. Patient demonstrated overt coughing with thin liquids, not observed with mildly thick liquids. Notably increased oral transit time required for L6 solids. Continue to reinforce nutrition recommendation for supplementation of Boost/Ensure, and also recommend ordering a side of puree solid at each meal for eased mastication demands. Consider downgrade to L5 minced/moist solids if persistent concerns with fatigue with eating. Plan for Tegan to discharge to SNF tomorrow. Ongoing [employer] services indicated. FURTHER [employer] SERVICES: Patient to be followed while on unit. Upon Discharge, recommend [facility] services at [facility] Diet Recommendations: SOLIDS: L6 Soft & Bite Sized LIQUIDS: L2 Mildly Thick, straws OK MEDICATIONS: As tolerated, whole in puree or with sips mildly thick liquid SUPERVISION: 1:1 assist as indicated SUBJECTIVE: Patient received alert/awake, lethargic, agreeable to evaluation Pain Reported? None Baseline Swallow Function: Patient denies swallowing difficulty PO Trials Assessed: IDDSI 0 Thin Liquids IDDSI 2 Mildly Thick Liquid IDDSI 6 Soft & Bite Size Solid Oral Mechanism Examination: Limited assessment, patient not opening mouth to clinician request. With PO trials, patient demonstrating global deconditioning of oral structures Oral Phase Findings: Difficulty with bolus manipulation Difficulty with a-p transport Difficulty chewing Pharyngeal Phase Findings: Delayed swallow initiation Reduced hyolaryngeal elevation/excursion Cough after swallow w/ thins, not with L2 liquids ASSESSMENT: Further [employer] Services indicated. Patient to be followed while on unit. Recommendation at Discharge: [facility] [employer] Services at Nursing Home Facility Suggested Referrals: N/A Recommended Procedures: Consider MBSS as outpatient RISK MANAGEMENT: HOB upright as tolerated; upright for all PO intake. Oral hygiene before/after meals PO intake only when awake/alert? Reduce auditory and/or visual distractions when eating Maintain upright position at least 30 minutes after meals Education Provided to: Nursing, Patient Topics Addressed: [employer] findings and recommendation s PLAN: Frequency: 2-3x/week for 1-2 weeks Goals: Fence Builder Goals: Patient will remain free from aspiration-related illness, malnutrition, and dehydration. Short Term Goals: Patient will tolerate L6 Soft Bite Size Diet and Thin liquids without overt s/s aspiration across 2/2 visits. [employer] CPT Code: 90645 Clinical Swallowing Evaluation TOTAL TIME: 25 Minutes [id number]
[2024-09-01 19:24] VITALS: TEMP 36.9
[2024-09-01] MEDS: Melatonin 3 MG TAB 9 MG PO (19:44)
[2024-09-01] MEDS: oxyCODONE-CR 10 MG TABCR PO (19:44)
[2024-09-01] MEDS: risperiDONE 0.25 MG TAB 1 MG PO (19:44)
[2024-09-01] MEDS: Atorvastatin 20 MG TAB PO (19:44)
[2024-09-01] MEDS: Mirtazapine 15 MG TAB PO (19:45)
[2024-09-01] MEDS: Senna TAB 1 TAB PO (19:45)
[2024-09-01] MEDS: Protein Nutritional Supplement 16 GM 1 OUNCE PACKET PO (19:45)
[2024-09-01 23:11] VITALS: BP 123/80; PULSE 71; RESP 18; TEMP 36.5; O2SAT 96
[2024-09-02 03:07] VITALS: BP 146/87; PULSE 78; RESP 19; TEMP 36.6; O2SAT 97
[2024-09-02 06:25] LABS: Abs Immature Grans 0.04 10^3/uL (0.0-0.06); Absolute Basophil Count 0.06 10^3/uL (0.0-0.2); Absolute Eosinophil Count 0.09 10^3/uL (0.0-0.7); Absolute Lymphocyte Count 1.28 10^3/uL (1.2-3.4); Absolute Monocyte Count 0.62 10^3/uL (0.1-0.8); Absolute Neutrophil Count 1.95 10^3/uL (1.2-6.7); Basophils % 1.5 %; Eosinophils % 2.2 %; HCT 26.8 % (36.0-46.0); HGB 8.5 g/dL (11.2-15.7); Lymphocytes % 31.7 %; MCH 27.2 pg (27.0-33.0); MCHC 31.7 % (32.0-36.0); MCV 86 fL (80-95); MPV 9.6 fL (8.0-11.0); Monocytes % 15.3 %; Neutrophils % 48.3 %; Platelet Count 295 10^3/uL (130-400); RBC 3.13 10^6/uL (3.93-5.22); RDW 15.8 % (11.7-14.6); RDW-SD 48.2 fL; WBC 4.04 10^3/uL (4.4-10.8)
[2024-09-02 06:36] LABS: Anion Gap 8.4 mmol/L (3-11); BUN 28 mg/dL (7-18); CO2 27.6 mmol/L (21.0-32.0); CREATININE 0.8 mg/dL (0.55-1.02); Chloride 110 mmol/L (98-107); Estimated GFR 76.79 (mL/min/1.73m2); Glucose 91 mg/dL (74-106); Magnesium 1.8 mg/dL (1.8-2.4); Sodium 146 mmol/L (136-145)
[2024-09-02 06:55] LABS: Folate 13.9 ng/mL (8.6-20.0)
[2024-09-02 07:04] LABS: Vitamin D 25 Total 36 ng/mL (30-100)
[2024-09-02 07:21] VITALS: BP 158/76; PULSE 72; RESP 16; TEMP 36.8; O2SAT 97
[2024-09-02] MEDS: Acetaminophen 325 MG TAB 650 MG PO (07:53)
[2024-09-02] MEDS: amLODIPine 5 MG TAB 10 MG PO (07:53)
[2024-09-02] MEDS: Vitamins B Comp w/C TAB 1 TAB PO (07:53)
[2024-09-02] MEDS: Protein Nutritional Supplement 16 GM 1 OUNCE PACKET PO (07:53)
[2024-09-02] MEDS: oxyCODONE-CR 10 MG TABCR PO (07:53)
[2024-09-02] MEDS: Normal Saline Flush 10 ML SYR IVP (07:54)
[2024-09-02] MEDS: Omeprazole 20 MG CAPCR 40 MG PO (07:54)
[2024-09-02] MEDS: Aspirin E.C. 81 MG TABEC PO (07:54)
[2024-09-02] MEDS: levETIRAcetam 500 MG TAB PO (07:54)
--- NOTE | 2024-09-02 08:53 | PDOC.CMDIS ---
Date of service: 09/02/24 Time of Service: 08:53 LACE Index Scoring Tool Questions: Length of Stay (in days): 4 - 6 Was the patient admitted via the E.D.?: Yes Comorbidities: Cerebrovascular Disease, Chronic Pulmonary Disease and Liver or Renal Disease E.D. Visits: 4 Answers: Total Score: 16 Risk of Readmission: High Risk Care Management Discharge Plan Reason for Hospitalization: fall Discharge Plan: Tegan will be transferred to [facility] for short term rehab. She will follow up with the facility providers and plan of care and transport via RCT coordinated by CM. Patient/Family Education Needs: expectations, limitations, Ask Me Three Services Needed at Discharge: Long Term Facility SDOH Health Related Social Needs: Health related social needs material hardship(utilities) (Z59.12)
--- NOTE | 2024-09-02 09:01 | W.PM.DS.N ---
Date of service: 09/02/24 Time of Service: 09:01 DS: Diagnosis Discharge Diagnosis (1) Dehydration: Status: Resolved (2) Falls frequently: Status: Acute (3) Seizure: Status: Chronic (4) Failure to thrive in adult: Status: Acute (5) Depression: Status: Chronic (6) On deep vein thrombosis (DVT) prophylaxis: Status: Acute (7) Discharge planning issues: Status: Acute Discharge Plan Disposition Patient Disposition: [facility] Facility(SNF) Condition: Fair Condition: Improving Discharge Details Reason For Visit: fall Admit Date/Time: 08/29/24 14:28 Admit Provider: Alverto Fuller Attending Provider: Alverto Fuller Primary Care Provider: JerardoMarixa mckeon [facility] Hospital Course: 73-year-old female living alone with nursing care, PT, OT, recently discharged on 08/23/24 presented to the ED at [facility] for the second time in 48 hours on 08/28/24 for evaluation s/p recurrent falls. PMHx includes, new Dx of seizure disorder, osteoarthritis, recurrent UTIs, chronic renal insufficiency, hypertension, depression,chronic pain on opioids. Workup in the ED for was negative acute injuries and infectious process, showed mild stable anemia as per CBC w/o electrolyte imbalances. Physical therapy recommended SNF VS LTC. The patient admitted to the medical surgical floor for evaluation and management of failure top thrive, ambulatory dysfunction, falls while awaiting placement. The patient will be discharged on an adjusted dose of oxycontin and scheduled acetaminophen for pain,and increased dose mirtazapine, and melatonin. On the day of discharge the patient was hemodynamically stable with GCS of 15. Recommendations for outpatient EEG as per neurology and endocrinology referral d/t pancreatic findings on CT from last stay still pending. Discussed with Dr. Mckoy Home Meds and New Rx's Prescriptions: New acetaminophen 325 mg Tablet 650 mg PO QID Qty: 30 0RF melatonin 3 mg Tablet 9 mg PO HS Qty: 15 0RF mirtazapine 15 mg Tablet 15 mg PO HS Qty: 30 0RF oxycodone [OxyContin] 10 mg Tablet,Oral Only,Ext.Rel.12 Hr 10 mg PO BID Qty: 10 0RF Phlexy-Vits 15 mg- 700 mcg Powder In Packet 1 packet PO TID Qty: 30 0RF Continued aspirin 81 mg tablet,delayed release (DR/EC) 81 mg PO DAILY omeprazole 40 MG capsule,delayed release(DR/EC) 40 mg PO DAILY vitamin B complex Tablet 1 tab PO DAILY lorazepam [Ativan] 1 mg tablet 1 mg PO DAILY PRNQty: 10 0RF sennosides [senna] 8.6 mg tablet 8.6 mg PO QPM amlodipine 10 mg tablet 10 mg PO DAILY naloxone 4 mg/actuation spray,non-aerosol 4 mg INTRANASAL ONCE PRN Patient Comments: ADMINISTER 1 SPRAY INTO ONE NOSTRIL A SINGLE DOSE NEEDED FOR EXCESSIVE SEDATION nitrofurantoin monohyd/m-cryst 100 mg capsule 100 mg PO DAILY ondansetron HCl 4 mg tablet 4 mg PO BID PRN (Reason: nausea and vomiting) Patient Comments: TAKE ONE TABLET BY MOUTH TWICE A DAY BEFORE MEALS FOR NAUSEA risperidone 1 mg tablet 1 mg PO .Bedtime Patient Comments: TAKE ONE TABLET BY MOUTH AT BEDTIME cannabidiol (CBD) oral edible 1 tab PO PRN PRN levetiracetam 500 mg Tablet 500 mg PO BID Qty: 60 0RF atorvastatin 20 mg Tablet 20 mg PO QPM Qty: 30 0RF Held oxycodone [OxyContin] 40 mg tablet,oral only,ext.rel.12 hr 40 mg PO BID Hold Instructions: Resume on 09/10/24. redosed at 20 mg BID while in the hospital folic acid 1 mg tablet 1 mg PO DAILY Hold Instructions: Resume on 09/10/24. As per PCP, level > 20 in 04/21/2024 Discontinued mirtazapine 15 mg Tablet 7.5 mg PO HS Qty: 30 0RF Discharge Instructions Instructions: Preventing falls in adults, Weakness ED Additional Instructions: This time your labs are largely at your baseline. No evidence for acute fractures at this time. Please discuss with your primary care provider some more frequent in home care, assisted living or rehabilitation. Discuss this with your family. Follow up with primary care provider in 3-5 days. Return to ED sooner if any worsening or concerns. Referrals: Marixa Kurtz [Primary Care Provider] - 3 days Activity:: Activity as Tolerated Equipment/Supplies:: Walker Diet:: heart healthy Discharge Orders Discharge Orders: Discharge Order (Routine); Ordered 09/02/24 Ordered By: Enid Bonner DS: Summary Time Spent with Patient providing and/or coordinating discharge services: Greater than 30 minutes Status at Discharge Functional status at discharge: uses cane/walker Overall status at discharge: patient is progressing back to baseline Mental Status: mental status grossly normal Speech and Movement: speech and movement normal (with verbal and tactile stimulation) Mood: congruent mood Affect: blunted Quality:SDOH Health Related Social Needs: Health related social needs material hardship(utilities) (Z59.12) Exam Narrative Exam Narrative: 73 y.o female patient looking of stated age, frail appearing alert and oriented X2 ( place, self, only year)-GCS 15, nonfocal, nonicteric sclera, S1-S2 regular, positive radial and pedal pulses, clear lungs with decreased bases, abdomen is nonacute and nontender, bowel are present, no CVA tenderness, moist oral mucous membranes, moves all 4 extremities, no rash to exposed skin Psych Mental Status: mental status grossly normal Speech and Movement: speech and movement normal (with verbal and tactile stimulation) Mood: congruent mood Affect: blunted DS: Data Vitals/I&O Vitals and I&O: Vital Signs Temperature 36.8 C 09/02/24 07:21 Temperature Source Temporal Artery Scan 09/02/24 07:21 Pulse 72 09/02/24 07:21 Pulse Rhythm Regular 08/29/24 16:02 Pulse 71 08/29/24 15:10 Respiratory Rate 16 09/02/24 07:21 Respiratory Effort Normal 08/29/24 16:02 Respiratory Depth Normal 08/29/24 16:02 Respiratory Pattern Normal 08/29/24 16:02 Blood Pressure 158/76 H 09/02/24 07:21 Blood Pressure Mean 100 08/29/24 14:00 Blood Pressure Position Supine 08/28/24 20:52 Pulse Oximetry 97 09/02/24 07:21 Oxygen Delivery Method Room Air 09/02/24 07:21 Oxygen Flow Rate 0 09/02/24 07:21 Pain Level 0 09/02/24 07:21 Comment pt refused bp, nurse notified 09/01/24 19:24 Intake & Output 09/01/24 09/01/24 09/02/24 11:59 23:59 11:59 Intake Total 580 / 580 Output Total 100 / 100 Balance 580 / 480 -100 / 480 Intake: Oral 580 / 580 Output: Urine 100 / 100 Other: Urine Color Yellow Yellow Yellow Urine Appearance Clear Clear Clear Urine Odor None Normal Comment large void x1 in brief some urine unaccounted for due to missing the hat, also had x1 incontinence in brief prior Data Completed and Pending Labs on day of discharge: Labs from last 24 hours 09/02/24 06:00 WBC 4.04 L RBC 3.13 L Hgb 8.5 L Hct 26.8 L MCV 86 MCH 27.2 MCHC 31.7 L RDW 15.8 H Plt Count 295 MPV 9.6 Immature Gran % 1.0 Neutrophils % 48.3 Lymphocytes % 31.7 Monocytes % 15.3 Eosinophils % 2.2 Basophils % 1.5 Nucleated RBC % 0.0 Absolute Neutrophils 1.95 Absolute Lymphocytes 1.28 Absolute Monocytes 0.62 Absolute Eosinophils 0.09 Absolute Basophils 0.06 Sodium 146 H Potassium 4.0 Chloride 110 H Carbon Dioxide 27.6 Anion Gap 8.4 BUN 28 H Creatinine 0.8 Est GFR (CKD-EPI 2020) 76.79 Glucose 91 Calcium 9.0 Magnesium 1.8 25-OH Vitamin D Total 36 Folate 13.9 PFSH All Active Problems (Updated 09/01/24 @ 16:34 by Enid Bonner APRN) Discharge planning issues (Acute) Failure to thrive in adult (Acute) On deep vein thrombosis (DVT) prophylaxis (Acute) Weakness (Acute) Falls frequently (Acute) Trouble talking (Acute) Seizure (Chronic) Psychiatric symptoms (Acute) Acute UTI (Acute) Acute kidney injury superimposed on CKD (Acute) Ambulatory dysfunction (Acute) Lives in skilled nursing (Acute) Deficit in activities of daily living (ADL) (Acute) Closed fracture of distal end of radius (Acute) Palliative care patient (Acute) Closed fracture of left distal radius (Acute) Closed fracture of right distal radius (Acute) Heart murmur (Acute) Depression (Chronic) At high risk for skin breakdown (Acute) Periorbital edema (Acute) Hiatal hernia (Chronic) moderate Coronary artery calcification seen on CAT scan (Acute) Diverticula of colon (Acute) DJD (degenerative joint disease), lumbar (Acute) History of CVA (cerebrovascular accident) (Acute) remote Fracture of both wrists (Acute) Goiter (Acute) Fibromyalgia (Chronic) KWAME (obstructive sleep apnea) (Chronic) Chronic pain (Chronic) Movement disorder (Acute) Chronic renal insufficiency, stage III (moderate) (Acute) Anemia (Chronic) Hypertension (Chronic) Medical History AMS (altered mental status) Dehydration Rhabdomyolysis Fall ACP (advance care planning) Primary osteoarthritis of left knee We will see the patient back in 4-1/2 months for possible repeat Synvisc 1 in her left knee would consider x-ray in her right knee if she is still significantly symptomatic Osteoarthritis of right knee Steroid injection: 04/05/2020 Has had previous viscosupplementation injections. 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) As treatment for a femoral neck fracture (DOI: 09/16/2020) History of back surgery Hx of cholecystectomy Social History Smoking/Tobacco Use Status: Never Smoking risk assessment performed?: Yes Alcohol Intake: never Drug use: Never Substance use type: does not use Housing: apartment Do you feel safe at home: Yes Do you feel safe in your relationship?: Yes Additional Social history: lives alone, has caregiver that come 7 days a week, do all the meds Time Spent with Patient Time Spent with Patient: 70-84 minutes4 Time was spent: preparing to see the patient(eg.review tests), obtaining and/or reviewing separately otained hiistory, ordering medications,tests, procedures, referring, communicating with other health critical care cns, indepentently interpreting results, counseling the patient and care coordination
--- NOTE | 2024-09-09 18:36 | NUR.NOTE ---
Opened chart to enter note, received call from ED US reported request from PT daughter for help to find nightgown of pt. ED reports no gown there. Took name and # of daughter Renetta [phone] and inquired on MS. Spoke to US and and RN overhearing conversation reports she was with the patient for transfer/dc. Report pt left in her own nightgown. Called daughter and got voicemail. Left message that missing gown was seen on pt at discharge. Nursing Note:
== END 2024-09-02 09:17 | disposition skilled nursing facility (03) ==
LOC: ER 08-29 15:23 → MS 08-29 15:44
PROVIDERS: Nurse Practitioner Acute Care; Registered Nurse Emergency; Admitting Provider Family Medicine; Emergency Provider Emergency Medicine; PCP Family Medicine; Responsible Provider Nurse Practitioner Acute Care; Visit Provider Family Medicine
DX: E86.0 Dehydration (principal); R53.1 Weakness; N17.9 Acute kidney failure, unspecified; R29.6 Repeated falls; R56.9 Unspecified convulsions; R62.7 Adult failure to thrive; N18.30 Chronic kidney disease, stage 3 unspecified; I12.9 Hypertensive chronic kidney disease with stage 1 through stage 4 chronic kidney disease, or unspecified chronic kidney disease; F32.A Depression, unspecified; W19.XXXA Unspecified fall, initial encounter; D64.9 Anemia, unspecified; Z68.1 Body mass index [BMI] 19.9 or less, adult; Z66 Do not resuscitate; R01.1 Cardiac murmur, unspecified; I25.10 Atherosclerotic heart disease of native coronary artery without angina pectoris; K44.9 Diaphragmatic hernia without obstruction or gangrene; Z86.73 Personal history of transient ischemic attack (TIA), and cerebral infarction without residual deficits; M79.7 Fibromyalgia; G47.33 Obstructive sleep apnea (adult) (pediatric); Z96.642 Presence of left artificial hip joint; Z98.1 Arthrodesis status; R64 Cachexia
CPT/HCPCS: 00123; 36415; 36416; 80048; 80053; 82306; 82550; 82962; 92610; 96372; 97110; 97116; 97162; 97530; 99285; J1650; 70450; 71046; 72125; 73060; 73090; 73110; 73502; 82140; 82746; 83735; 85025; 99223; 99233; 99239; G0378

== ENCOUNTER 2024-12-17 14:38 | Inpatient (IN) | payer MEDICARE, MEDICAID, SELFPAY ==
[2024-12-17] VITALS (14 sets, daily range): BP systolic 121–175; BP diastolic 63–88; PULSE 59–71; RESP 18; TEMP 36.5–36.9; O2SAT 94–97
--- NOTE | 2024-12-17 15:15 | RT.EKG_ITS ---
APPROVED REPORT Exam: Resting ECG Reason for Exam: AMS Patient Location: E HR:64 bpm ECG Measurements Heart Rate 64 AXIS MT 197 P 65 QRSd 92 QRS 25 QT 455 T 50 QTc 469 Conclusion Sinus rhythm.. 64 normal axis no stemi
--- NOTE | 2024-12-17 15:44 | W.ED.GENAD ---
Discharge Plan Disposition Patient Disposition: Admit to [facility] Condition: Stable Discharge Details Clinical Impression: Altered mental status, Acute UTI Primary Care Provider: Marixa Kurtz ED Provider: Kassy Patricio Home Meds and New Rx's Prescriptions: No Action aspirin 81 mg tablet,delayed release (DR/EC) 81 mg PO DAILY omeprazole 40 MG capsule,delayed release(DR/EC) 40 mg PO DAILY vitamin B complex Tablet 1 tab PO DAILY acetaminophen 325 mg Tablet 650 mg PO QID Qty: 30 0RF melatonin 3 mg Tablet 9 mg PO HS Qty: 15 0RF mirtazapine 15 mg Tablet 15 mg PO HS Qty: 30 0RF oxycodone [OxyContin] 10 mg Tablet,Oral Only,Ext.Rel.12 Hr 10 mg PO BID Qty: 10 0RF Phlexy-Vits 15 mg- 700 mcg Powder In Packet 1 packet PO TID Qty: 30 0RF sennosides [senna] 8.6 mg tablet 8.6 mg PO QPM amlodipine 10 mg tablet 10 mg PO DAILY naloxone 4 mg/actuation spray,non-aerosol 4 mg INTRANASAL ONCE PRN Patient Comments: ADMINISTER 1 SPRAY INTO ONE NOSTRIL A SINGLE DOSE NEEDED FOR EXCESSIVE SEDATION nitrofurantoin monohyd/m-cryst 100 mg capsule 100 mg PO DAILY ondansetron HCl 4 mg tablet 4 mg PO BID PRN (Reason: nausea and vomiting) Patient Comments: TAKE ONE TABLET BY MOUTH TWICE A DAY BEFORE MEALS FOR NAUSEA risperidone 1 mg tablet 1 mg PO .Bedtime Patient Comments: TAKE ONE TABLET BY MOUTH AT BEDTIME oxycodone [OxyContin] 40 mg tablet,oral only,ext.rel.12 hr 40 mg PO BID levetiracetam 500 mg Tablet 500 mg PO BID Qty: 60 0RF atorvastatin 20 mg Tablet 20 mg PO QPM Qty: 30 0RF HPI General Date/Time Provider Initiated Documentation: 12/17/24 14:59. Limitations to Documentation: altered mental status. Information obtained by: RN/MD and old records reviewed. HPI Narrative: 74-year-old female with past medical history of CVA, CKD, hypertension and chronic debility presents from health [facility] rehab for evaluation because the patient has not urinated in the last 12 hours. She has been refusing to eat and drink today or take any of her medications. The patient baseline is unknown to me and was not provided by the health and rehab facility. Patient is unable to provide any additional history at this time Related Data Home Medications ?Medication ?Instructions ?Recorded ?Confirmed omeprazole 40 mg capsule,delayed 40 mg PO DAILY 05/19/14 12/17/24 release vitamin B complex 1 tab PO DAILY 01/05/20 12/17/24 aspirin 81 mg tablet,delayed 81 mg PO DAILY 06/23/21 12/17/24 release amlodipine 10 mg tablet 10 mg PO DAILY 01/14/22 12/17/24 sennosides 8.6 mg tablet (senna) 8.6 mg PO QPM 01/14/22 12/17/24 naloxone 4 mg/actuation nasal spray 4 mg intranasal ONCE PRN 07/16/23 12/17/24 nitrofurantoin 100 mg PO DAILY 08/18/24 12/17/24 monohydrate/macrocrystals 100 mg capsule ondansetron HCl 4 mg tablet 4 mg PO BID PRN nausea and vomiting 08/18/24 12/17/24 risperidone 1 mg tablet 1 mg PO .Bedtime 08/18/24 12/17/24 oxycodone 40 mg tablet,crush 40 mg PO BID 08/19/24 12/17/24 resistant,extended release 12 hr (OxyContin) Held on 09/01/24. Instructions: Resume on 09/10/24. redosed at 20 mg BID while in the hospital atorvastatin 20 mg tablet 20 mg PO QPM #30 tabs 08/23/24 12/17/24 levetiracetam 500 mg tablet 500 mg PO BID #60 tabs 08/23/24 12/17/24 acetaminophen 325 mg tablet 650 mg (2 x 325 mg) PO QID #30 tabs 09/01/24 12/17/24 melatonin 3 mg tablet 9 mg (3 x 3 mg) PO HS #15 tabs 09/01/24 12/17/24 mirtazapine 15 mg tablet 15 mg PO HS #30 tabs 09/01/24 12/17/24 multivit with mins-ferrous sulf 15 1 packet PO TID #30 ea 09/01/24 12/17/24 mg-folic 700 mcg oral powder packet (Phlexy-Vits) oxycodone 10 mg tablet,crush 10 mg PO BID #10 tabs 09/01/24 12/17/24 resistant,extended release 12 hr (OxyContin) Previous Rx's ?Medication ?Instructions ?Recorded atorvastatin 20 mg tablet 20 mg PO QPM #30 tabs 08/23/24 levetiracetam 500 mg tablet 500 mg PO BID #60 tabs 08/23/24 acetaminophen 325 mg tablet 650 mg (2 x 325 mg) PO QID #30 tabs 09/01/24 melatonin 3 mg tablet 9 mg (3 x 3 mg) PO HS #15 tabs 09/01/24 mirtazapine 15 mg tablet 15 mg PO HS #30 tabs 09/01/24 multivit with mins-ferrous sulf 15 1 packet PO TID #30 ea 09/01/24 mg-folic 700 mcg oral powder packet (Phlexy-Vits) oxycodone 10 mg tablet,crush 10 mg PO BID #10 tabs 09/01/24 resistant,extended release 12 hr (OxyContin) Allergies Allergy/AdvReac Type Severity Reaction Status Date / Time sulfamethoxazole (From Allergy Diarrhea Verified 08/29/24 13:18 Bactrim) trimethoprim (From Bactrim) Allergy Diarrhea Verified 08/29/24 13:18 morphine AdvReac Intermediate Psychosis Unverified 08/29/24 13:18 baclofen AdvReac Unknown Unknown Unverified 08/29/24 13:18 chlorthalidone AdvReac Unknown Unknown Unverified 08/29/24 13:18 codeine AdvReac Unknown Unknown Unverified 08/29/24 13:18 dextromethorphan AdvReac Unknown Unknown Unverified 08/29/24 13:18 gabapentin (From Neurontin) AdvReac Unknown Unknown Unverified 08/29/24 13:18 hydrochlorothiazide AdvReac Unknown Unknown Unverified 08/29/24 13:18 pregabalin AdvReac Unknown Dopey Unverified 08/29/24 13:18 General Stated Complaint: GenMedical LOLITA: 3 Exam Narrative Exam Narrative: Review of Systems: All systems reviewed & are unremarkable except as noted in HPI and below Well-developed, no acute distress NCAT PERRL, normal conjunctiva RRR, no murmur Unlabored respiratory effort, clear bilaterally Nondistended abdomen , soft nontender Flat affect, very minimal facial movement, does not engage in speech or participation in the examination. She is able to tell me her name and say that she is cold. Course Vital Signs Vital signs: Vital Signs Temperature 36.9 C 12/17/24 14:42 Pulse 63 12/17/24 14:42 Respiratory Rate 18 12/17/24 14:42 Blood Pressure 138/84 12/17/24 14:42 Pulse Oximetry 97 12/17/24 14:42 Temperature 36.9 C 12/17/24 14:42 Temperature Source Oral 12/17/24 14:42 Pulse 63 12/17/24 14:42 Respiratory Rate 18 12/17/24 14:42 Blood Pressure 138/84 12/17/24 14:42 Blood Pressure Position Supine 12/17/24 14:42 Pulse Oximetry 97 12/17/24 14:42 Oxygen Delivery Method Room Air 12/17/24 14:42 Oxygen Flow Rate 0 12/17/24 14:42 Medical Decision Making Emergent evaluation of altered mental status. Unknown last known normal. Has not urinated in 12 hours. Initial differential includes CVA, infectious etiology, dehydration, hypothyroid. Plan for labs CT imaging and reevaluation. Lab work reviewed, there is no leukocytosis, there is mild anemia at 1031, she appears clinically dehydrated on lab work, her ammonia and TSH are not deranged. She does have a urinary tract infection on a catheterized urine specimen. This was sent for culture. IV Rocephin has been given. Her talk screen was positive for opiates but she does have oxycodone on her med list. Given the fact that she is so dehydrated and has not taken anything by mouth today, I do not suspect that she would do well back at the rehab facility on oral antibiotics, I will admit the patient to the hospital for further management. Quality:SDOH Health Related Social Needs: Health related social needs material hardship PFSH All Active Problems (Updated 12/17/24 @ 19:36 by Charbel Key MD) UTI (urinary tract infection) (Acute) Acute UTI (Acute) Altered mental status (Acute) Failure to thrive in adult (Acute) Weakness (Acute) Falls frequently (Acute) Trouble talking (Acute) Seizure (Chronic) Acute UTI (Acute) Acute kidney injury superimposed on CKD (Acute) Lives in long term (Acute) Deficit in activities of daily living (ADL) (Acute) Closed fracture of distal end of radius (Acute) Closed fracture of left distal radius (Acute) Closed fracture of right distal radius (Acute) Heart murmur (Acute) Depression (Chronic) At high risk for skin breakdown (Acute) Periorbital edema (Acute) Hiatal hernia (Chronic) moderate Coronary artery calcification seen on CAT scan (Acute) Diverticula of colon (Acute) DJD (degenerative joint disease), lumbar (Acute) History of CVA (cerebrovascular accident) (Acute) remote Fracture of both wrists (Acute) Goiter (Acute) Fibromyalgia (Chronic) KWAME (obstructive sleep apnea) (Chronic) Chronic pain (Chronic) Movement disorder (Acute) Chronic renal insufficiency, stage III (moderate) (Acute) Anemia (Chronic) Hypertension (Chronic) Medical History (Updated 12/17/24 @ 19:36 by Charbel Key MD) Psychiatric symptoms Ambulatory dysfunction Palliative care patient AMS (altered mental status) Rhabdomyolysis Fall ACP (advance care planning) Primary osteoarthritis of left knee We will see the patient back in 4-1/2 months for possible repeat Synvisc 1 in her left knee would consider x-ray in her right knee if she is still significantly symptomatic Osteoarthritis of right knee Steroid injection: 04/05/2020 Has had previous viscosupplementation injections. 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) As treatment for a femoral neck fracture (DOI: 09/16/2020) History of back surgery Hx of cholecystectomy Social History Smoking/Tobacco Use Status: Never Smoking risk assessment performed?: Yes Alcohol Intake: never Drug use: Never Substance use type: does not use Housing: apartment Do you feel safe at home: Yes Do you feel safe in your relationship?: Yes Additional Social history: lives alone, has caregiver that come 7 days a week, do all the meds
--- NOTE | 2024-12-17 15:55 | DI.CT_ITS ---
Exam(s) CT HEAD WO EXAM: CT HEAD WO CLINICAL HISTORY: AMS. TECHNIQUE: Imaging Protocol: Axial computed tomography images with coronal and sagittal reformatted images were created and reviewed COMPARISON: CT CT HEAD CERVICAL SPINE WO from 08/28/2024 FINDINGS: There are no skull fractures. There is no fluid in the visualized paranasal sinuses. Metallic densities again noted in the upper cervical spine C1 level posterior right, unchanged. There is calcification of the vertebral and basilar arteries. Also of the internal carotid arteries the skull base and proximal bilateral middle cerebral arteries, this calcification indicating atherosclerotic involvement of these vessels. There is again noted evidence of encephalomalacia from prior infarct in the right occipital lobe, unchanged from 08/28/2024. There is a moderate amount of bilateral periventricular hypodensity again noted consistent with chronic small vessel disease. Small periventricular or superimposed small lacunar infarcts are again noted. Calcification both basal ganglia again noted. IMPRESSION: No acute intracranial findings on this noninfused CT scan of the brain. Again noted is evidence of prior right occipital lobe infarct and abundant bilateral periventricular chronic small vessel ischemic changes. If clinically indicated follow-up MRI can be performed for added sensitivity and specificity Report called by myself to ER physician 12/17/2024 at 4:03 p.m. RADIATION DOSE DELIVERED: 870.25mGy.cm Total DLP DATA REPOSITORY: All CT scans at this facility are submitted to the National Radiology Data Registry (NRDR) Dose Index Registry (DIR) with the [employer] (ACR). RADIATION OPTIMIZATION: All CT scans at this facility use at least one of these dose optimization techniques: automated exposure control; mA and/or kV adjustment per patient size (includes targeted exams where dose is matched to clinical indication); or iterative reconstruction.
--- NOTE | 2024-12-17 16:48 | NUR.NOTE ---
Nursing Note: @ 1545 PT repeatly refused to have IV placed or straight cath for IV she stated NO it hurts after being educated on importance of labs being drawn. @ 1600 This RN spoke with PT family Renetta, explained the situation to renetta. Renetta spoke with her mother (the pateint) on the phone. PT has agreed to have IV placed if pain ez spray was used. Pain ez spray used x2 iv attempts with no successful iv placement. This RN collected urine via stright cath per providers orders
[2024-12-17 17:14] LABS: Glucose Negative (Negative)
[2024-12-17 17:21] LABS: C & S Indicated? Yes
[2024-12-17 17:29] LABS: Abs Immature Grans 0.02 10^3/uL (0.0-0.06); HCT 31.8 % (36.0-46.0); HGB 10.0 g/dL (11.2-15.7); Immature Grans % 0.4 %; MCH 27.6 pg (27.0-33.0); MCHC 31.4 % (32.0-36.0); MCV 88 fL (80-95); MPV 9.4 fL (8.0-11.0); Platelet Count 220 10^3/uL (130-400); RBC 3.62 10^6/uL (3.93-5.22); RDW 14.2 % (11.7-14.6); RDW-SD 45.1 fL; WBC 5.06 10^3/uL (4.4-10.8)
[2024-12-17 17:33] LABS: Cannabinoids THC Negative (Negative); METHADONE URINE SCREEN Negative (Negative)
[2024-12-17 17:40] LABS: Ammonia < 10 umol/L (11-32)
[2024-12-17 17:42] LABS: ALT 28 U/L (14-59); AST 26 U/L (15-37); Albumin 3.2 g/dL (3.4-5.0); Alkaline Phosphatase 80 U/L (46-116); Anion Gap 8.9 mmol/L (3-11); BUN 32 mg/dL (7-18); Bilirubin, Total 0.8 mg/dL (0.2-1.0); CO2 31.1 mmol/L (21.0-32.0); Calcium 9.8 mg/dL (8.5-10.1); Chloride 106 mmol/L (98-107); Estimated GFR 76.31 (mL/min/1.73m2); Glucose 93 mg/dL (74-106); Magnesium 2.1 mg/dL (1.8-2.4); Potassium 4.2 mmol/L (3.5-5.1); Sodium 146 mmol/L (136-145); Total Protein 8.9 g/dL (6.4-8.2)
[2024-12-17 17:52] LABS: TSH (W/Ref FT4) 0.70 uIU/mL (0.36-3.74)
[2024-12-17] MEDS: cefTRIAXone 1 GM/50 ML BAG IVPB (18:21)
[2024-12-17] MEDS: Normal Saline 1,000 ML 1000 ML IV (18:22)
--- NOTE | 2024-12-17 19:29 | W.PM.HP.N ---
Date of service: 12/17/24 Time of Service: 19:29 Assessment and Plan Assessment and plan (1) Dehydration: Status: Resolved Assessment and plan: Started LR at 125 recheck labs in the a.m. (2) Falls frequently: Status: Acute Assessment and plan: Consult PT. (3) Seizure: Status: Chronic Assessment and plan: Check a Keppra level (4) Failure to thrive in adult: Status: Acute Assessment and plan: Consult PT (5) Depression: Status: Chronic Assessment and plan: Restart home meds (6) On deep vein thrombosis (DVT) prophylaxis: Status: Deleted Assessment and plan: Continue LMWH (7) Discharge planning issues: Status: Deleted (8) UTI (urinary tract infection): Status: Acute Assessment and plan: Continue with Rocephin and check urine cultures History of Present Illness History of Present Illness Chief Complaint: mental status change Narrative: This is a 74-year-old female who lives at one of the local nursing homes and was noted to have worsening confusion as well as refusing to take any of her medications. Facility reached out to her daughter who states that but her mom does assistance often from a UTI. Patient was transferred over to the ED for further evaluation and treatment. While she was in the ED urinalysis was done which was indicative of a UTI. Considering the patient's mental status as well as her refusal to take oral medications she was admitted for IV antibiotics. In reviewing the chart she was last year and August of this year and at that time a psych consult was done and is available for review. Also, it does appear that the patient is taking Macrobid on a prophylactic dose level. While she is in the ED urine cultures were done. In reviewing her last urine culture results from August showed Pseudomonas with essentially preston sensitivity. Patient does have significant allergies listed, most probably intolerances. While in the ED she was also noted to have significant elevation in her BUN to creatinine ratio indicating most likely dehydration. Patient's white count was within normal limits. She did have mild anemia with a hemoglobin of 10. UA was positive for opiates. Started on Rocephin in the ED. 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 I do not see a EKG at this point. On my interview, the patient just kept saying warm blanket. When I asked her directly know, she was able to tell me her full name as well as the date but not the location. Review of Systems All systems reviewed & are unremarkable except as noted in HPI and below PFSH All Active Problems (Updated 12/17/24 @ 19:36 by Charbel Key MD) UTI (urinary tract infection) (Acute) Acute UTI (Acute) Altered mental status (Acute) Failure to thrive in adult (Acute) Weakness (Acute) Falls frequently (Acute) Trouble talking (Acute) Seizure (Chronic) Acute UTI (Acute) Acute kidney injury superimposed on CKD (Acute) Lives in senior living (Acute) Deficit in activities of daily living (ADL) (Acute) Closed fracture of distal end of radius (Acute) Closed fracture of left distal radius (Acute) Closed fracture of right distal radius (Acute) Heart murmur (Acute) Depression (Chronic) At high risk for skin breakdown (Acute) Periorbital edema (Acute) Hiatal hernia (Chronic) moderate Coronary artery calcification seen on CAT scan (Acute) Diverticula of colon (Acute) DJD (degenerative joint disease), lumbar (Acute) History of CVA (cerebrovascular accident) (Acute) remote Fracture of both wrists (Acute) Goiter (Acute) Fibromyalgia (Chronic) KWAME (obstructive sleep apnea) (Chronic) Chronic pain (Chronic) Movement disorder (Acute) Chronic renal insufficiency, stage III (moderate) (Acute) Anemia (Chronic) Hypertension (Chronic) Medical History (Updated 12/17/24 @ 19:36 by Charbel Key MD) Psychiatric symptoms Ambulatory dysfunction Palliative care patient AMS (altered mental status) Rhabdomyolysis Fall ACP (advance care planning) Primary osteoarthritis of left knee We will see the patient back in 4-1/2 months for possible repeat Synvisc 1 in her left knee would consider x-ray in her right knee if she is still significantly symptomatic Osteoarthritis of right knee Steroid injection: 04/05/2020 Has had previous viscosupplementation injections. 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) As treatment for a femoral neck fracture (DOI: 09/16/2020) History of back surgery Hx of cholecystectomy Social History Smoking/Tobacco Use Status: Never Smoking risk assessment performed?: Yes Alcohol Intake: never Drug use: Never Substance use type: does not use Housing: apartment Do you feel safe at home: Yes Do you feel safe in your relationship?: Yes Additional Social history: lives alone, has caregiver that come 7 days a week, do all the meds Meds Allergies and Home Medications Allergies Allergy/AdvReac Type Severity Reaction Status Date / Time sulfamethoxazole (From Allergy Diarrhea Verified 08/29/24 13:18 Bactrim) trimethoprim (From Bactrim) Allergy Diarrhea Verified 08/29/24 13:18 morphine AdvReac Intermediate Psychosis Unverified 08/29/24 13:18 baclofen AdvReac Unknown Unknown Unverified 08/29/24 13:18 chlorthalidone AdvReac Unknown Unknown Unverified 08/29/24 13:18 codeine AdvReac Unknown Unknown Unverified 08/29/24 13:18 dextromethorphan AdvReac Unknown Unknown Unverified 08/29/24 13:18 gabapentin (From Neurontin) AdvReac Unknown Unknown Unverified 08/29/24 13:18 hydrochlorothiazide AdvReac Unknown Unknown Unverified 08/29/24 13:18 pregabalin AdvReac Unknown Dopey Unverified 08/29/24 13:18 Home Medications ?Medication ?Instructions ?Recorded ?Confirmed ?Type omeprazole 40 mg capsule,delayed 40 mg PO DAILY 05/19/14 12/17/24 History release vitamin B complex 1 tab PO DAILY 01/05/20 12/17/24 History aspirin 81 mg tablet,delayed 81 mg PO DAILY 06/23/21 12/17/24 History release amlodipine 10 mg tablet 10 mg PO DAILY 01/14/22 12/17/24 History sennosides 8.6 mg tablet (senna) 8.6 mg PO QPM 01/14/22 12/17/24 History naloxone 4 mg/actuation nasal spray 4 mg intranasal ONCE PRN 07/16/23 12/17/24 History nitrofurantoin 100 mg PO DAILY 08/18/24 12/17/24 History monohydrate/macrocrystals 100 mg capsule ondansetron HCl 4 mg tablet 4 mg PO BID PRN nausea and vomiting 08/18/24 12/17/24 History risperidone 1 mg tablet 1 mg PO .Bedtime 08/18/24 12/17/24 History oxycodone 40 mg tablet,crush 40 mg PO BID 08/19/24 12/17/24 History resistant,extended release 12 hr (OxyContin) Held on 09/01/24. Instructions: Resume on 09/10/24. redosed at 20 mg BID while in the hospital atorvastatin 20 mg tablet 20 mg PO QPM #30 tabs 08/23/24 12/17/24 Rx levetiracetam 500 mg tablet 500 mg PO BID #60 tabs 08/23/24 12/17/24 Rx acetaminophen 325 mg tablet 650 mg (2 x 325 mg) PO QID #30 tabs 09/01/24 12/17/24 Rx melatonin 3 mg tablet 9 mg (3 x 3 mg) PO HS #15 tabs 09/01/24 12/17/24 Rx mirtazapine 15 mg tablet 15 mg PO HS #30 tabs 09/01/24 12/17/24 Rx multivit with mins-ferrous sulf 15 1 packet PO TID #30 ea 09/01/24 12/17/24 Rx mg-folic 700 mcg oral powder packet (Phlexy-Vits) oxycodone 10 mg tablet,crush 10 mg PO BID #10 tabs 09/01/24 12/17/24 Rx resistant,extended release 12 hr (OxyContin) Exam Narrative Exam Narrative: HEENT-normocephalic atraumatic mucous membranes dry extract motions are intact Neck-no lymphadenopathy no JVD no thyromegaly Cardiovascular-regular rate and rhythm no murmurs or gallops Pulm-clear to auscultation bilaterally with good air exchange no accessory muscle use noted Abdomen-soft nontender nondistended bowel sounds active Neurologic-could not be completely assessed due to mental status Constitutional 74-year-old female appears her stated age and in no apparent distress Results Labs 12/17/24 17:19 12/17/24 17:19 Labs: Laboratory Results - last 24 hr 12/17/24 12/17/24 16:44 17:19 WBC 5.06 RBC 3.62 L Hgb 10.0 L Hct 31.8 L MCV 88 MCH 27.6 MCHC 31.4 L RDW 14.2 Plt Count 220 MPV 9.4 Immature Gran % 0.4 Neutrophils % 67.3 Lymphocytes % 19.6 Monocytes % 10.5 Eosinophils % 1.6 Basophils % 0.6 Nucleated RBC % 0.0 Absolute Neutrophils 3.41 Absolute Lymphocytes 0.99 L Absolute Monocytes 0.53 Absolute Eosinophils 0.08 Absolute Basophils 0.03 Sodium 146 H Potassium 4.2 Chloride 106 Carbon Dioxide 31.1 Anion Gap 8.9 BUN 32 H Creatinine 0.8 Est GFR (CKD-EPI 2020) 76.31 Glucose 93 Calcium 9.8 Magnesium 2.1 Total Bilirubin 0.8 AST 26 ALT 28 Alkaline Phosphatase 80 Ammonia < 10 L Total Protein 8.9 H Albumin 3.2 L TSH 0.70 Urine Color Yellow Urine Clarity Sl Cloudy Urine pH 6.0 Ur Specific [place] 1.025 Urine Protein Negative Urine Ketones Trace H Urine Blood Trace-intact H Urine Nitrite Negative Urine Bilirubin Negative Urine Urobilinogen 0.2 Ur Leukocyte Esterase Trace H Urine RBC 10-20 H Urine WBC 10-20 H Ur Epithelial Cells Rare Urine Crystals Few Amorphous Urine Bacteria Packed Urine Casts Negative Urine Mucus Negative Ur Culture Indicated? Yes Urine Glucose Negative Urine Opiates Screen Positive A Urine Methadone Screen Negative Ur Barbiturates Screen Negative Ur Tricyclics Screen Negative Ur Amphetamines Screen Negative U Benzodiazepines Scrn Negative Urine Cocaine Screen Negative Ur THC Screen Negative Ethyl Alcohol < 3.0 Last Vital Signs Temp 36.9 C 12/17/24 14:42 Pulse 65 12/17/24 19:16 Resp 18 12/17/24 14:42 BP 175/77 H 12/17/24 19:16 Pulse Ox 94 12/17/24 19:01 Time Spent Time spent with Patient: <40 minutes Time was spent: preparing to see the patient(eg.review tests), obtaining and/or reviewing separately otained hiistory, ordering medications,tests, procedures, referring, communicating with other health congregational care pastor, indepentently interpreting results, counseling the patient, care coordination and other
--- NOTE | 2024-12-17 21:17 | W.PC.ACHO ---
Registration Status: ADM IN Primary Language: Preferred Language: Kinyarwanda ED Information & Data Chief Complaint GenMedical 12/17/24 16:47 Chief Complaint GenMedical 12/17/24 15:50 Triage Note BIBA // [facility] reports pt 12/17/24 14:42 has not taken meds today day has not had a void for 12+ hours, Medical / Surgical History (Last Updated 10/14/24 @ 13:41 by Barby Carter RN) Psychiatric symptoms Ambulatory dysfunction Palliative care patient AMS (altered mental status) Rhabdomyolysis Fall ACP (advance care planning) Primary osteoarthritis of left knee Osteoarthritis of right knee Chronic pain syndrome Left elbow contusion Muscle weakness Tendonitis of left rotator cuff Recurrent UTI (urinary tract infection) Hypomagnesemia Primary osteoarthritis, left shoulder Left rotator cuff tear arthropathy Impacted cerumen of both ears Bilateral sensorineural hearing loss Pneumonia Left displaced femoral neck fracture (09/16/20) Fracture of left hip CVA (cerebral vascular accident) Recurrent UTI IBS (irritable bowel syndrome) Urge incontinence Chronic constipation Chronic insomnia (Last Reviewed 08/28/24 @ 21:06 by Bela Goel NP) S/P cervical spinal fusion History of total left hip replacement (09/17/20) History of back surgery Hx of cholecystectomy Most Recent Vital Signs Temperature 36.9 C 12/17/24 14:42 Temperature Source Oral 12/17/24 14:42 Pulse 65 12/17/24 19:31 Respiratory Rate 18 12/17/24 14:42 Blood Pressure 167/79 H 12/17/24 19:31 Blood Pressure Mean 99 12/17/24 19:31 Blood Pressure Position Supine 12/17/24 14:42 Pulse Oximetry 94 12/17/24 19:01 Oxygen Delivery Method Room Air 12/17/24 14:42 Oxygen Flow Rate 0 12/17/24 14:42 Allergies sulfamethoxazole (From Bactrim) Allergy (Verified 08/29/24 13:18) Diarrhea trimethoprim (From Bactrim) Allergy (Verified 08/29/24 13:18) Diarrhea morphine Adverse Reaction (Intermediate, Unverified 08/29/24 13:18) Psychosis baclofen Adverse Reaction (Unknown, Unverified 08/29/24 13:18) Unknown chlorthalidone Adverse Reaction (Unknown, Unverified 08/29/24 13:18) Unknown codeine Adverse Reaction (Unknown, Unverified 08/29/24 13:18) Unknown dextromethorphan Adverse Reaction (Unknown, Unverified 08/29/24 13:18) Unknown gabapentin (From Neurontin) Adverse Reaction (Unknown, Unverified 08/29/24 13:18) Unknown hydrochlorothiazide Adverse Reaction (Unknown, Unverified 08/29/24 13:18) Unknown pregabalin Adverse Reaction (Unknown, Unverified 08/29/24 13:18) Dopey Precautions Isolation Standard precaution 12/17/24 16:47 IV IV Catheter Type [Left Saline Lock Antecubital] IV Catheter Gauge [Left 20 Antecubital] Diet Orders Category Date Time Status Regular/Normal [DIET] Nutrition 12/18/24 Breakfast Ordered Diagnostics 12/17/24 12/17/24 Range/Units 17:19 16:44 WBC 5.06 (4.4-10.8) 10^3/uL RBC 3.62 L (3.93-5.22) 10^6/uL Hgb 10.0 L (11.2-15.7) g/dL Hct 31.8 L (36.0-46.0) % MCV 88 (80-95) fL MCH 27.6 (27.0-33.0) pg MCHC 31.4 L (32.0-36.0) % RDW 14.2 (11.7-14.6) % Plt Count 220 (130-400) 10^3/uL MPV 9.4 (8.0-11.0) fL Immature Gran % 0.4 % Neutrophils % 67.3 % Lymphocytes % 19.6 % Monocytes % 10.5 % Eosinophils % 1.6 % Basophils % 0.6 % Nucleated RBC % 0.0 (0.0-0.3) % Absolute Neutrophils 3.41 (1.2-6.7) 10^3/uL Absolute Lymphocytes 0.99 L (1.2-3.4) 10^3/uL Absolute Monocytes 0.53 (0.1-0.8) 10^3/uL Absolute Eosinophils 0.08 (0.0-0.7) 10^3/uL Absolute Basophils 0.03 (0.0-0.2) 10^3/uL Sodium 146 H (136-145) mmol/L Potassium 4.2 (3.5-5.1) mmol/L Chloride 106 (98-107) mmol/L Carbon Dioxide 31.1 (21.0-32.0) mmol/L Anion Gap 8.9 (3-11) mmol/L BUN 32 H (7-18) mg/dL Creatinine 0.8 (0.55-1.02) mg/dL Est GFR (CKD-EPI 2020) 76.31 (mL/min/1.73m2) Glucose 93 (74-106) mg/dL Calcium 9.8 (8.5-10.1) mg/dL Magnesium 2.1 (1.8-2.4) mg/dL Total Bilirubin 0.8 (0.2-1.0) mg/dL AST 26 (15-37) U/L ALT 28 (14-59) U/L Alkaline Phosphatase 80 (46-116) U/L Ammonia < 10 L (11-32) umol/L Total Protein 8.9 H (6.4-8.2) g/dL Albumin 3.2 L (3.4-5.0) g/dL TSH 0.70 (0.36-3.74) uIU/mL Urine Color Yellow (Yellow) Urine Clarity Sl Cloudy (Clear) Urine pH 6.0 (5-8) Ur Specific [place] 1.025 (1.005-1.025) Urine Protein Negative (Neg-Trace) mg/dL Urine Ketones Trace H (Negative) mg/dL Urine Blood Trace-intact H (Negative) Urine Nitrite Negative (Negative) Urine Bilirubin Negative (Negative) Urine Urobilinogen 0.2 (Up to 0.2) mg/dL Ur Leukocyte Esterase Trace H (Negative) Urine RBC 10-20 H (0-2) HPF Urine WBC 10-20 H (0-5) HPF Ur Epithelial Cells Rare (Negative) HPF Urine Crystals Few Amorphous (Negative) HPF Urine Bacteria Packed (Negative) HPF Urine Casts Negative (Negative) LPF Urine Mucus Negative (Negative) Ur Culture Indicated? Yes Urine Glucose Negative (Negative) mg/dL Urine Opiates Screen Positive A (Negative) Urine Methadone Screen Negative (Negative) Ur Barbiturates Screen Negative (Negative) Ur Tricyclics Screen Negative (Negative) Ur Amphetamines Screen Negative (Negative) U Benzodiazepines Scrn Negative (Negative) Urine Cocaine Screen Negative (Negative) Ur THC Screen Negative (Negative) Ethyl Alcohol < 3.0 (<10) mg/dL 12/17/24 16:44 Urine Culture - Pending Urine - Reflex from Ua Intake and Output - 24 Hour Total 12/17/24 14:32 thru 12/17/24 18:24 Intake Total 10 Output Total 200 Balance -190 Weight 58.287 kg Intake: IV 10 Output: Urine 200 Other: # Voids 2 Falls Risk Assessment History of Falls Previous History 12/17/24 18:22 Contributing Factors Confusion,Unstable, 12/17/24 18:22 Impairments Ambulatory Aids Uses ambulatory device + 12/17/24 18:22 Tubes/Lines With any additional score 12/17/24 18:22 Gait Evaluation W/any additional score 12/17/24 18:22 Cognition Cognitive impairment 12/17/24 18:22 Fall Total Score 109 12/17/24 18:22 Level of Risk Maximum Risk 12/17/24 18:22 Problems (Last Updated 10/14/24 @ 13:41 by Barby Carter RN) UTI (urinary tract infection) (Acute) Failure to thrive in adult (Acute) Falls frequently (Acute) Seizure (Chronic) Depression (Chronic) Notes 12/17/24 16:48 Nursing Notes by Chitra Granados Nursing Note: @ 1545 PT repeatly refused to have IV placed or straight cath for IV she stated NO it hurts after being educated on importance of labs being drawn. @ 1600 This RN spoke with PT family Daniele, explained the situation to daniele. Daniele spoke with her mother (the pateint) on the phone. PT has agreed to have IV placed if pain ez spray was used. Pain ez spray used x2 iv attempts with no successful iv placement. This RN collected urine via stright cath per providers orders Initialized on 12/17/24 16:48 - END OF NOTE v v v v v v v v v Sending and/or Receiving Nurses: Please use comment section below to note any information pertinent to the patient hand-off not included above. Information / Comments: 74 Y/O female with AMS. Frequent falls, dehydration, depression, failure to thrive, UTI. Report received from: Tawanda
[2024-12-17] MEDS: Acetaminophen 325 MG TAB 650 MG PO (21:56)
[2024-12-17] MEDS: Normal Saline Flush 10 ML SYR IVP (21:57)
[2024-12-17] MEDS: Protein Nutritional Supplement 16 GM 1 OUNCE PACKET PO (23:11)
[2024-12-17] MEDS: Melatonin 3 MG TAB 9 MG PO (23:12)
[2024-12-17] MEDS: Enoxaparin 40 MG/0.4 ML SYR SC (23:12)
[2024-12-17] MEDS: levETIRAcetam 500 MG TAB PO (23:12)
[2024-12-17] MEDS: risperiDONE 1 MG TAB PO (23:12)
[2024-12-17] MEDS: Atorvastatin 20 MG TAB PO (23:13)
[2024-12-17] MEDS: oxyCODONE-CR 10 MG TABCR PO (23:13)
[2024-12-17] MEDS: Senna TAB 1 TAB PO (23:14)
[2024-12-17] MEDS: Mirtazapine 15 MG TAB PO (23:14)
[2024-12-17] MEDS: Lactated Ringers 1,000 ML 125 ML IV (23:33)
[2024-12-18 03:34] VITALS: BP 133/72; PULSE 55; RESP 19; TEMP 36.6; O2SAT 94
[2024-12-18 06:45] LABS: HCT 26.0 % (36.0-46.0); HGB 8.4 g/dL (11.2-15.7); MCH 28.3 pg (27.0-33.0); MCHC 32.3 % (32.0-36.0); MCV 88 fL (80-95); MPV 9.8 fL (8.0-11.0); Platelet Count 210 10^3/uL (130-400); RBC 2.97 10^6/uL (3.93-5.22); RDW 14.0 % (11.7-14.6); RDW-SD 44.2 fL; WBC 3.85 10^3/uL (4.4-10.8)
[2024-12-18 07:05] LABS: ALT 23 U/L (14-59); AST 23 U/L (15-37); Albumin 2.5 g/dL (3.4-5.0); Alkaline Phosphatase 63 U/L (46-116); Anion Gap 8.1 mmol/L (3-11); BUN 30 mg/dL (7-18); Bilirubin, Total 0.5 mg/dL (0.2-1.0); CO2 27.9 mmol/L (21.0-32.0); Calcium 9.0 mg/dL (8.5-10.1); Chloride 109 mmol/L (98-107); Estimated GFR 97.14 (mL/min/1.73m2); Glucose 77 mg/dL (74-106); Potassium 3.8 mmol/L (3.5-5.1); Sodium 145 mmol/L (136-145); Total Protein 7.1 g/dL (6.4-8.2)
[2024-12-18 08:17] VITALS: BP 156/65; PULSE 52; RESP 16; TEMP 36.8; O2SAT 95
--- NOTE | 2024-12-18 09:29 | W.PM.PROGNOT ---
Date of Service Date of service: 12/18/24 Time of Service: 09:29 Assessment and Plan Assessment and plan (1) Encephalopathy: Status: Acute Assessment and plan: Presenting to the ED s/p refusing oral intake and AMS from her baseline. Head CT findings as follow: No acute intracranial findings on this noninfused CT scan of the brain. Again noted is evidence of prior right occipital lobe infarct and abundant bilateral periventricular chronic small vessel ischemic changes. If clinically indicated follow-up MRI can be performed for added sensitivity and specificity This might be d/t point 2 and 3. The patient remains neurologically nom-focal (2) UTI (urinary tract infection): Status: Acute Assessment and plan: UA positive - not meeting sepsis criteria ongoing Ceftriaxone Urine cultures pending- (3) Dehydration: Start date: 12/18/24 Status: Resolved Assessment and plan: Continue LR at 125 cc/hr BMP in AM (4) Falls frequently: Status: Acute Assessment and plan: Ongoing PT consult (5) Seizure: Status: Chronic Assessment and plan: Keppra level ordered and pending (6) Anemia: Status: Chronic Assessment and plan: Hgb dropped from 10 to 8.4 - this might be dilutional - low iron study levels in 2021 Iron study (7) Failure to thrive in adult: Status: Acute Assessment and plan: As above and Previous nutriytion consult in 08/2024: NUTRITIONAL DIAGNOSIS: inadequate intake related to multiple chronic conditions INTERVENTION: -will offer oral nutrition supplements at meals and nourishment times-nutrition supplements ordered -would recommend vitamin D lab due to no oral supplement and little sun exposure and diet sources- -Vit D was 36- not supplementation needed Previous BOND CLERK consult 08/2024: Diet Recommendations: SOLIDS: L6 Soft & Bite Sized LIQUIDS: L2 Mildly Thick, straws OK MEDICATIONS: As tolerated, whole in puree or with sips mildly thick liquid SUPERVISION: 1:1 assist as indicated BOND CLERK recommended outpatient s/p consult in 09/09 (8) Chronic pain: Status: Chronic Assessment and plan: Ongoing home dose oxycodone CR 10 mg BID Scheduled APAP (9) Depression: Status: Chronic Assessment and plan: Ongoing home meds (10) Discharge planning issues: Status: Deleted Assessment and plan: Return to rehab facility when medically ready (11) On deep vein thrombosis (DVT) prophylaxis: Status: Acute Assessment and plan: On lovenox Discussed with Dr. Raser Exam Narrative Exam Narrative: 74 y.o female appearing older than stated age,in no acute distress, alert to self, no focal neurological deficit but generalized weakness, moves all 4 ext., shallow breathing, holdsher breath when asked to take deep breaths, clear lungs with decreased bilateral bases, cardiac murmur +, abdomen is not distended , soft, nontender Objective Last Vital Signs Temp 36.8 C 12/18/24 08:17 Pulse 52 L 12/18/24 08:17 Resp 16 12/18/24 08:17 BP 156/65 H 12/18/24 08:17 Pulse Ox 95 12/18/24 08:17 Laboratory Results - last 24 hr 12/17/24 12/17/24 12/18/24 16:44 17:19 06:07 WBC 5.06 3.85 L RBC 3.62 L 2.97 L Hgb 10.0 L 8.4 L Hct 31.8 L 26.0 L MCV 88 88 MCH 27.6 28.3 MCHC 31.4 L 32.3 RDW 14.2 14.0 Plt Count 220 210 MPV 9.4 9.8 Immature Gran % 0.4 Neutrophils % 67.3 Lymphocytes % 19.6 Monocytes % 10.5 Eosinophils % 1.6 Basophils % 0.6 Nucleated RBC % 0.0 Absolute Neutrophils 3.41 Absolute Lymphocytes 0.99 L Absolute Monocytes 0.53 Absolute Eosinophils 0.08 Absolute Basophils 0.03 Sodium 146 H 145 Potassium 4.2 3.8 Chloride 106 109 H Carbon Dioxide 31.1 27.9 Anion Gap 8.9 8.1 BUN 32 H 30 H Creatinine 0.8 0.5 L Est GFR (CKD-EPI 2020) 76.31 97.14 Glucose 93 77 Calcium 9.8 9.0 Magnesium 2.1 Total Bilirubin 0.8 0.5 AST 26 23 ALT 28 23 Alkaline Phosphatase 80 63 Ammonia < 10 L Total Protein 8.9 H 7.1 Albumin 3.2 L 2.5 L TSH 0.70 Urine Color Yellow Urine Clarity Sl Cloudy Urine pH 6.0 Ur Specific [place] 1.025 Urine Protein Negative Urine Ketones Trace H Urine Blood Trace-intact H Urine Nitrite Negative Urine Bilirubin Negative Urine Urobilinogen 0.2 Ur Leukocyte Esterase Trace H Urine RBC 10-20 H Urine WBC 10-20 H Ur Epithelial Cells Rare Urine Crystals Few Amorphous Urine Bacteria Packed Urine Casts Negative Urine Mucus Negative Ur Culture Indicated? Yes Urine Glucose Negative Urine Opiates Screen Positive A Urine Methadone Screen Negative Ur Barbiturates Screen Negative Ur Tricyclics Screen Negative Ur Amphetamines Screen Negative U Benzodiazepines Scrn Negative Urine Cocaine Screen Negative Ur THC Screen Negative Ethyl Alcohol < 3.0 Time Spent with Patient Time Spent with Patient: >50 minutes Time was spent: preparing to see the patient(eg.review tests), obtaining and/or reviewing separately otained hiistory, ordering medications,tests, procedures, referring, communicating with other health palliative care coordinator, indepentently interpreting results, counseling the patient and care coordination
[2024-12-18] MEDS: Vitamins B Comp w/C TAB 1 TAB PO (09:41)
[2024-12-18] MEDS: Aspirin E.C. 81 MG TABEC PO (09:41)
[2024-12-18] MEDS: levETIRAcetam 500 MG TAB PO ×2 (09:41→19:50)
[2024-12-18] MEDS: amLODIPine 10 MG TAB PO (09:41)
[2024-12-18] MEDS: Omeprazole 20 MG CAPCR 40 MG PO (09:41)
[2024-12-18] MEDS: Acetaminophen 325 MG TAB 650 MG PO ×4 (09:41→21:08)
[2024-12-18] MEDS: oxyCODONE-CR 10 MG TABCR PO ×2 (09:41→19:50)
[2024-12-18] MEDS: Protein Nutritional Supplement 16 GM 1 OUNCE PACKET PO ×3 (09:42→19:51)
[2024-12-18] MEDS: cefTRIAXone 1,000 MG in Normal Saline 50 ML 100 MG IVPB (09:44)
[2024-12-18] MEDS: Normal Saline Flush 10 ML SYR IVP (09:45)
[2024-12-18] MEDS: Lactated Ringers 1,000 ML 125 ML IV ×2 (10:27→18:34)
[2024-12-18 11:10] LABS: Lab Add On Test DONE
--- NOTE | 2024-12-18 11:34 | INITIAL_ITS ---
Date of service: 12/18/24 Time of Service: 11:35 Care Management Initial Assmt Initial Assessment Reason for Hospitalization: Uti Functional Status/Living Situation Patient Presentation: Tegan was lying in bed when CM met with her. She maintained good eye contact but did not say one word. CM asked several questions and Tegan just stared at CM. CM spoke to her nurse who shared that although Tegan did minimally respond to some questions, she spoke very little to her either. CM contacted the staff at [facility] for additonal information about Tegan. [facility] learned that she has a long psychiatric history which at times includes hallucinations, confusion ans verbally aggressive behavior. She has difficulty with ambulation and requires total assistance with care. Tegan has identified a daughter Renetta Corrigan as her HCA with her son Amor Corrigan as the alternate. Tegan's code status is DNR/DNI. Town of Residence: [facility] Resides with: Other (SNF) Significant Other/Family: Local Natural Supports: family and staff at [facility]. Employment Status: Retired Instrumental Activities of Daily Living (ADLs): Requires support Medications Medication Management: No Issues/Barriers identified Physical Functioning/Mobility Assistive Device: wheelchair walker Advance Directives Advance Directives: Do you have an Advance Directive: Y , 18:01 AD On File at [facility]: Y 09/16/20, 21:57 Date Asked 08/26/24 08/26/24, 14:48 AD Date Reviewed 12/17/24 12/17/24, 15:05 COLST On File at [facility] Yes 08/19/24, 09:20 COLST Date Scanned 05/06/24 08/19/24, 09:20 Code Status Resuscitation Status DNR/DNI Portal Pt does not currently have a portal and education provided: Yes Insurance Coverage/Financial Issues Insurance: Medicare Medicaid Care Team Visit Care Team Role Provider Type Enid Bonner APRN MD [facility] STAFF PHYSICIAN Marixa Kurtz Primary Care Provider NON-[facility] STAFF PHYSICIAN Aranza Mahmood Other Providers OTHER Kassy Patricio MD Emergency Provider [facility] STAFF PHYSICIAN Charbel Key MD Admit Provider [facility] STAFF PHYSICIAN Attending Provider Discharge Potential Discharge Needs: Other (return to SNF) Anticipated Barriers to Discharge: None Identified Patient/Family Education Needs: Review discharge instructions, discuss Ask Me Three Transportation: RCT Plan: Anticipate Tegan will return to [facility] when medically cleared. She will follow up with the facility providers and plan of care and transport via RCT coordinated by CM. CM will follow and continue to support discharge needs. Social Determinants of Health Screening Will the Patient Participate in the Screening?: Unable to obtain Do you worry about having a steady place to live?: choose not to answer In the past 12 months, have you had to go without electric, gas, oil or water in your home?: choose not to answer Has lack of transportation kept you from medical appointments or from doing things needed for daily living?: choose not to answer Has anyone in your life made you feel unsafe or unsupported?: choose not to answer Health Related Social Needs Health related social needs: material hardship(utilities) (Z59.12) PFSH All Active Problems (Updated 12/18/24 @ 10:40 by Enid Bonner APRN) Encephalopathy (Acute) On deep vein thrombosis (DVT) prophylaxis (Acute) UTI (urinary tract infection) (Acute) Acute UTI (Acute) Altered mental status (Acute) Failure to thrive in adult (Acute) Weakness (Acute) Falls frequently (Acute) Trouble talking (Acute) Seizure (Chronic) Acute UTI (Acute) Acute kidney injury superimposed on CKD (Acute) Lives in senior living (Acute) Deficit in activities of daily living (ADL) (Acute) Closed fracture of distal end of radius (Acute) Closed fracture of left distal radius (Acute) Closed fracture of right distal radius (Acute) Heart murmur (Acute) Depression (Chronic) At high risk for skin breakdown (Acute) Periorbital edema (Acute) Hiatal hernia (Chronic) moderate Coronary artery calcification seen on CAT scan (Acute) Diverticula of colon (Acute) DJD (degenerative joint disease), lumbar (Acute) History of CVA (cerebrovascular accident) (Acute) remote Fracture of both wrists (Acute) Goiter (Acute) Fibromyalgia (Chronic) KWAME (obstructive sleep apnea) (Chronic) Chronic pain (Chronic) Movement disorder (Acute) Chronic renal insufficiency, stage III (moderate) (Acute) Anemia (Chronic) Hypertension (Chronic) Medical History (Updated 12/18/24 @ 10:40 by Enid Bonner APRN) Psychiatric symptoms Ambulatory dysfunction Palliative care patient AMS (altered mental status) Rhabdomyolysis Fall ACP (advance care planning) Primary osteoarthritis of left knee We will see the patient back in 4-1/2 months for possible repeat Synvisc 1 in her left knee would consider x-ray in her right knee if she is still sig nificantly symptomatic Osteoarthritis of right knee Steroid injection: 04/05/2020 Has had previous viscosupplementation injections. 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) As treatment for a femoral neck fracture (DOI: 09/16/2020) History of back surgery Hx of cholecystectomy Social History Smoking/Tobacco Use Status: Never Smoking risk assessment performed?: Yes Alcohol Intake: never Drug use: Never Substance use type: does not use Housing: senior living Do you feel safe at home: Yes Do you feel safe in your relationship?: Yes Additional Social history: lives alone, has caregiver that come 7 days a week, do all the meds
[2024-12-18 11:43] LABS: Iron 35 ug/dL (50-170); Total Iron Binding Capacity 196 ug/dL (250-450); Transferrin Sat 18 % (15-50)
[2024-12-18 11:57] LABS: Ferritin 98 ng/mL (8-252)
[2024-12-18 16:10] VITALS: BP 134/67; PULSE 67; RESP 16; TEMP 36.2; O2SAT 95
[2024-12-18] MEDS: Mirtazapine 15 MG TAB PO (19:50)
[2024-12-18] MEDS: Melatonin 3 MG TAB 9 MG PO (19:50)
[2024-12-18] MEDS: risperiDONE 1 MG TAB PO (19:50)
[2024-12-18] MEDS: Atorvastatin 20 MG TAB PO (19:50)
[2024-12-18] MEDS: Senna TAB 1 TAB PO (19:51)
[2024-12-18 20:29] VITALS: BP 131/71; PULSE 69; RESP 18; TEMP 36.7; O2SAT 93
[2024-12-19 04:11] VITALS: BP 138/82; PULSE 67; RESP 20; TEMP 36.4; O2SAT 94
[2024-12-19] MEDS: Acetaminophen 325 MG TAB 650 MG PO ×2 (08:10→12:23)
[2024-12-19] MEDS: Protein Nutritional Supplement 16 GM 1 OUNCE PACKET PO (08:10)
[2024-12-19] MEDS: Omeprazole 20 MG CAPCR 40 MG PO (08:10)
[2024-12-19] MEDS: Aspirin E.C. 81 MG TABEC PO (08:10)
[2024-12-19] MEDS: levETIRAcetam 500 MG TAB PO (08:10)
[2024-12-19] MEDS: amLODIPine 10 MG TAB PO (08:10)
[2024-12-19] MEDS: oxyCODONE-CR 10 MG TABCR PO (08:11)
[2024-12-19] MEDS: Vitamins B Comp w/C TAB 1 TAB PO (08:12)
[2024-12-19 08:15] VITALS: BP 171/88; PULSE 72; RESP 16; TEMP 36.8; O2SAT 95
--- NOTE | 2024-12-19 11:26 | PT.INIE ---
PT Notes Visit Reasons: uti Physical Therapy Inpatient Initial Evaluation Date: 12/19/2024 Referring Doctor: Charbel Key MD PT Orders: PT CONSULT: Eval/Treat Precautions: Falls. Standard. Impaired safety awareness. Activity as tolerated. Seizure precautions in place. Patient Profile/Admitting Diagnosis: Patient is a 74-year-old female SNF resident who presented to the ED due to worsening confusion and refusal to take medications. Patient was admitted for management of encephalopathy, UTI, dehydration, and frequent falls. PMHX: All Active Problems (Updated 12/17/24 @ 19:36 by Charbel Key MD) UTI (urinary tract infection) (Acute) Acute UTI (Acute) Altered mental status (Acute) Failure to thrive in adult (Acute) Weakness (Acute) Falls frequently (Acute) Trouble talking (Acute) Seizure (Chronic) Acute UTI (Acute) Acute kidney injury superimposed on CKD (Acute) Lives in skilled nursing (Acute) Deficit in activities of daily living (ADL) (Acute) Closed fracture of distal end of radius (Acute) Closed fracture of left distal radius (Acute) Closed fracture of right distal radius (Acute) Heart murmur (Acute) Depression (Chronic) At high risk for skin breakdown (Acute) Periorbital edema (Acute) Hiatal hernia (Chronic) moderate Coronary artery calcification seen on CAT scan (Acute) Diverticula of colon (Acute) DJD (degenerative joint disease), lumbar (Acute) History of CVA (cerebrovascular accident) (Acute) remote Fracture of both wrists (Acute) Goiter (Acute) Fibromyalgia (Chronic) KWAME (obstructive sleep apnea) (Chronic) Chronic pain (Chronic) Movement disorder (Acute) Chronic renal insufficiency, stage III (moderate) (Acute) Anemia (Chronic) Hypertension (Chronic) Medical History (Updated 12/17/24 @ 19:36 by Charbel Key MD) Psychiatric symptoms Ambulatory dysfunction Palliative care patient AMS (altered mental status) Rhabdomyolysis Fall ACP (advance care planning) Primary osteoarthritis of left knee We will see the patient back in 4-1/2 months for possible repeat Synvisc 1 in her left knee would consider x-ray in her right knee if she is still significantly symptomatic Osteoarthritis of right knee Steroid injection: 04/05/2020 Has had previous viscosupplementation injections.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) As treatment for a femoral neck fracture (DOI: 09/16/2020) History of back surgery Hx of cholecystectomy AMS (altered mental status) Dehydration Rhabdomyolysis Fall ACP (advance care planning) Primary osteoarthritis of left knee We will see the patient back in 4-1/2 months for possible repeat Synvisc 1 in her left knee would consider x-ray in her right knee if she is still significantly symptomatic Osteoarthritis of right knee Steroid injection: 04/05/2020 Has had previous viscosupplementation injections. 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) As treatment for a femoral neck fracture (DOI: 09/16/2020) History of back surgery Hx of cholecystectomy Social History/Home Situation: Has been a SNF resident receiving care she needs. Equipment Owned/DME: [facility] Subjective: I want to get unstuck out of the bed. patient was agreeable to PT getting her unstuck in bed. She feels that the mattress is too soft and it has made it hard f or her to move Objective: General Observation: Blank stare, expressionless face. Stiff. Mental Status: Oriented only as to person. Requires moderate to maximal verbal cueing for frequent redirection and encouragement Pain: Minimal generalized pain Vital Signs: Closely monitored by nursing staff ROM: Right Upper Extremity: Shoulder Flexion allows up to 90 degrees. Shoulder abduction allows up to about 60 degrees. Elbow flexion WFL. Wrist flexion WFL. Functional opening and closing of hand WFL. Left Upper Extremity: Shoulder Flexion allows up to 90 degrees. Shoulder abduction allows up to about 60 degrees. Elbow flexion WFL. Wrist flexion WFL. Functional opening and closing of hand WFL. Right Lower Extremity: Hip flexion allows up to 90 degrees. Hip abduction WFL. Knee flexion WFL. Ankle dorsiflexion WFL. Ankle plantarflexion WFL. Left Lower Extremity: Hip flexion allows up to 90 degrees. Hip abduction WFL. Knee flexion WFL. Ankle dorsiflexion WFL. Ankle plantarflexion WFL. Strength: Right Upper Extremity: Shoulder flexors 3-/5. Shoulder abductors 3-/5. Elbow flexors 4-/5. Elbow extensors 4-/5. Hand Leather Trimmer weak but functional. Left Upper Extremity: Shoulder flexors 3-/5. Shoulder abductors 3-/5. Elbow flexors 4-/5. Elbow extensors 4-/5. Hand Leather Trimmer weak but functional. Right Lower Extremity: Grossly 2/5 Left Lower Extremity: Grossly 2/5 Sensation: Intact as to pain and light pressure Bed Mobility/Transfers: Maximal cueing provided for use of B hands as needed for support, movement sequence, AD management, and posture to reduce fall risk and minimize pain report Supine to sit minimal assist with HOB at 45 degrees Sit to stand minimal assist of 2 with FWW Stand to sit minimal assist of 2 with FWW Bed to bedside chair minimal assist of 2 with FWW Gait: 8-10 small steps from edge of bed to bedside chair with minimal assist of 2 and maximal verbal cueing for safe technique for turning, backing up, and AD management. Was too tired to fully back up onto chair and decided to sit down despite heavy cues not to which required moderate assist from PT and RICA Mccarthy to ensure patient safety during descent. Patient was able to cover about 20 feet to the door of her room and then another 5 small steps to transfer back to her chair from the wheelchair with help of RICA Ramírez. Stairs: Deferred Balance: Static Sitting: Fair Dynamic Sitting: Poor Static Standing: Poor Dynamic Standing: Unable Special Tests: Mobility Limitations Standardized Measure [facility] 6 clicks Basic Mobility Inpatient Short Form: Raw Score: 12 CMS Score: 69% Informed Consent/Education: Patient was instructed in purpose of PT consult and plan of care. Assessment: With encouragement, patient was able to complete bed to chair transfer and then later walk to the door of her room with wheelchair follow. Nurse Flaco was able to give patient pain medications before PT session which has helped with performance safety/quality. Patient will continue to require subacute PT for strength training, balance, and functional mobility skilling. Patient is a 5- year old female referred to physical therapy services with the diagnosis of UTI/altered mental status. Patient presents with clinical signs and symptoms consistent with admitting diagnosis, as demonstrated by the following impairment level findings: 1. Decreased strength to B UE/LE major muscle groups 2. Impaired sitting and standing balance 3. Impaired activity tolerance 4. Limitations of range of motion in B shoulders, wrists and hips 5. Depressed, apathetic and lacks motivation Impairments are contributing to the following functional limitations: 1. Failure to thrive at home alone 2. Declining bed mobility skills 3. Declining transfer skills 4. Difficulty with ambulation without assistive device and physical assistance 5. Increased time to complete ADL/mobility tasks 6. Increased risk for falls 7. Difficulty with managing stairs alone safely Patient is assessed as a moderate 50701 complexity based on the following: History: 73-year-old female with past medical history as stated above Examination: Demonstrates impairments in strength, balance, mobility level with underlying impairments and functional limitations as stated above Presentation: Evolving Decision Makin moderate complexity Goals: Goals X1 week 1. Supine-Sit supervision 2. Sit-Supine supervision 3. Sit-Stand supervision 4. Stand-Sit supervision 5. Bed-Chair supervision 6. Chair-Bed supervision 7. Contact guard assist with gait on level surface with FWW for at least 300 feet without report of pain nor dyspnea 8. Fair static and dynamic standing balance/tolerance Plan of Care/Treatment Plan: 1-2x/day, 7 days/week x 1 week. Plan of care has been reviewed with the CUSTOMER ASSOCIATE providing the service under Physical Therapy direction. Initiate Physical Therapy intervention for strengthening, bed mobility, transfers, gait, stairs, balance training, use of assistive device. DISCHARGE RECOMMENDATIONS: [] Home with no services [] [] Home with services [specify] [] Home with outpatient PT [] [] SNF for continued rehabilitation [] [] [facility] [] [X] Return to SNF when medically cleared. TREATMENT CODE/TIME: 77671 x 20 minutes for 1 unit, 60562 x 26 minutes for 2 units (11:26?11:55 and 12:54-13:11). Thank you for the opportunity to participate in the care of this patient. Mikayla Jacobson PT, DPT, CLT [facility] [place], [place]
--- NOTE | 2024-12-19 12:24 | DSE_ITS ---
Date of service: 12/19/24 Time of Service: 13:16 DS: Diagnosis Discharge Diagnosis (1) Encephalopathy: Status: Acute (2) UTI (urinary tract infection): Status: Acute (3) Dehydration: Status: Resolved (4) Falls frequently: Status: Acute (5) Seizure: Status: Chronic (6) Anemia: Status: Chronic (7) Failure to thrive in adult: Status: Acute (8) Chronic pain: Status: Chronic (9) Depression: Status: Chronic (10) Discharge planning issues: Status: Deleted (11) On deep vein thrombosis (DVT) prophylaxis: Status: Acute Discharge Plan Disposition Patient Disposition: Shelter Facility(SNF) Condition: Improving Discharge Details Reason For Visit: uti Admit Date/Time: 12/17/24 18:44 Admit Provider: Charbel Key Attending Provider: Charbel Key Primary Care Provider: Marixa Kurtz [facility] Course Hospital Course: 74-year-old female with past medical history of Dx of seizure disorder, osteoarthritis, recurrent UTIs with Hx of Macrobid prophylactic dosing, chronic renal insufficiency, hypertension, depression,chronic pain on opioids,CVA, CKD, chronic debility presents from health and rehab for evaluation because the patient has not urinated in the last 12 hours. She has been refusing to eat and drink today or take any of her medications. In the ED urinalysis was done which was indicative of a UTI and d/t her refusal to take oral medications she was admitted for IV Ceftriaxone. CT of the brain was negative for any acute finding. Blood work indicative of dehydration and treated with IVF; mild anemia of chronic most likely of chronic disease as per iron studies. Urine culture grew streptococcus gallolyticus and the patient was transition to an oral antibiotics regimen to be continued upon discharge to her SNF facility; confirmed with Danyell Licona RN at the facility. Resume diet as per previous MANAGER LOCATION consult recommendations and encourage oral hydration. Recommendation for PCP follow-up: MRI pancreatic protocol recommended as per CT from 08/2024 Surgical consult for recommendation for EGD Colorectal neoplasm work-up if indicated based on finding of strep. Gallolyticus in urine if patient wishes Discussed with Dr. Mckoy Home Meds and New Rx's Prescriptions: New cefpodoxime 200 mg tablet 200 mg PO Q12H Qty: 6 0RF Rx Instructions: must administer with a meal/food Continued aspirin 81 mg tablet,delayed release (DR/EC) 81 mg PO DAILY omeprazole 40 MG capsule,delayed release(DR/EC) 40 mg PO DAILY vitamin B complex Tablet 1 tab PO DAILY acetaminophen 325 mg Tablet 650 mg PO QID Qty: 30 0RF melatonin 3 mg Tablet 9 mg PO HS Qty: 15 0RF mirtazapine 15 mg Tablet 15 mg PO HS Qty: 30 0RF oxycodone [OxyContin] 10 mg Tablet,Oral Only,Ext.Rel.12 Hr 10 mg PO BID Qty: 10 0RF Phlexy-Vits 15 mg- 700 mcg Powder In Packet 1 packet PO TID Qty: 30 0RF sennosides [senna] 8.6 mg tablet 8.6 mg PO QPM amlodipine 10 mg tablet 10 mg PO DAILY naloxone 4 mg/actuation spray,non-aerosol 4 mg INTRANASAL ONCE PRN Patient Comments: ADMINISTER 1 SPRAY INTO ONE NOSTRIL A SINGLE DOSE NEEDED FOR EXCESSIVE SEDATION nitrofurantoin monohyd/m-cryst 100 mg capsule 100 mg PO DAILY ondansetron HCl 4 mg tablet 4 mg PO BID PRN (Reason: nausea and vomiting) Patient Comments: TAKE ONE TABLET BY MOUTH TWICE A DAY BEFORE MEALS FOR NAUSEA risperidone 1 mg tablet 1 mg PO .Bedtime Patient Comments: TAKE ONE TABLET BY MOUTH AT BEDTIME oxycodone [OxyContin] 40 mg tablet,oral only,ext.rel.12 hr 40 mg PO BID levetiracetam 500 mg Tablet 500 mg PO BID Qty: 60 0RF atorvastatin 20 mg Tablet 20 mg PO QPM Qty: 30 0RF Discharge Instructions Referrals: Marixa Kurtz [Primary Care Provider, Medicine] Referral Note: Follow-up with PCP within 7 days of discharge Activity:: Activity as Tolerated Equipment/Supplies:: Walker Diet:: Heart healthy SOLIDS: L6 Soft & Bite Sized LIQUIDS: L2 Mildly Thi Discharge Orders Discharge Orders: Discharge Order (Routine); Ordered 12/19/24 Ordered By: Enid Bonner DS: Summary Time Spent with Patient providing and/or coordinating discharge services: Greater than 30 minutes Status at Discharge Functional status at discharge: uses cane/walker Overall status at discharge: patient is progressing back to baseline Mental Status: mental status grossly normal Speech and Movement: speech and movement normal Mood: congruent mood Affect: normal affect and blunted Quality:SDOH Health Related Social Needs: Health related social needs material hardship Exam Narrative Exam Narrative: 74 y.o female appearing older than stated age,in no acute distress, alert to self improved interractions , no focal neurological deficit, improved weakness, moves all 4 ext., clear lungs with decreased bilateral bases, S1, S2 reg LSB , questionable split cardiac sound to RSB , abdomen is not distended , soft, nontender, no CVA tenderness Psych Mental Status: mental status grossly normal Speech and Movement: speech and movement normal Mood: congruent mood Affect: normal affect and blunted DS: Data Vitals/I&O Vitals and I&O: Vital Signs Temperature 36.8 C 12/19/24 08:15 Temperature Source Temporal Artery Scan 12/19/24 08:15 Pulse 72 12/19/24 08:15 Pulse Rhythm Regular 12/17/24 21:29 Respiratory Rate 16 12/19/24 08:15 Respiratory Effort Normal 12/17/24 21:29 Respiratory Depth Normal 12/17/24 21:29 Respiratory Pattern Normal 12/17/24 21:29 Blood Pressure 171/88 H 12/19/24 08:15 Blood Pressure Mean 115 12/19/24 08:15 Blood Pressure Position Supine 12/17/24 14:42 Pulse Oximetry 95 12/19/24 08:15 Oxygen Delivery Method Room Air 12/19/24 08:15 Oxygen Flow Rate 0 12/19/24 08:15 Pain Level 3 12/19/24 08:15 Comment pt refused vitals 12/18/24 23:00 Intake & Output 12/18/24 12/19/24 12/19/24 23:59 11:59 23:59 Intake Total 1072.917 / 2072.917 250 / 250 Balance 1072.917 / 2072.917 250 / 250 Weight 58.1 kg Intake: IV 1072.917 / 2072.917 Oral 250 / 250 Other: Urine Color Yellow Yellow Urine Appearance Clear Clear Urine Odor Normal Stool Size Small Small Stool Characteristics Formed Formed Brown Brown Data Completed and Pending Labs on day of discharge: Labs from last 24 hours 12/19/24 05:35 WBC Pending RBC Pending Hgb Pending Hct Pending MCV Pending MCH Pending MCHC Pending RDW Pending Plt Count Pending MPV Pending Immature Gran % Pending Neutrophils % Pending Lymphocytes % Pending Monocytes % Pending Eosinophils % Pending Basophils % Pending Absolute Neutrophils Pending Absolute Lymphocytes Pending Absolute Monocytes Pending Absolute Eosinophils Pending Absolute Basophils Pending Sodium Pending Potassium Pending Chloride Pending Carbon Dioxide Pending Anion Gap Pending BUN Pending Creatinine Pending Est GFR (CKD-EPI 2020) Pending Glucose Pending Calcium Pending Magnesium Pending PFSH All Active Problems (Updated 12/18/24 @ 10:40 by Enid Bonner APRN) Encephalopathy (Acute) On deep vein thrombosis (DVT) prophylaxis (Acute) UTI (urinary tract infection) (Acute) Acute UTI (Acute) Altered mental status (Acute) Failure to thrive in adult (Acute) Weakness (Acute) Falls frequently (Acute) Trouble talking (Acute) Seizure (Chronic) Acute UTI (Acute) Acute kidney injury superimposed on CKD (Acute) Lives in group home (Acute) Deficit in activities of daily living (ADL) (Acute) Closed fracture of distal end of radius (Acute) Closed fracture of left distal radius (Acute) Closed fracture of right distal radius (Acute) Heart murmur (Acute) Depression (Chronic) At high risk for skin breakdown (Acute) Periorbital edema (Acute) Hiatal hernia (Chronic) moderate Coronary artery calcification seen on CAT scan (Acute) Diverticula of colon (Acute) DJD (degenerative joint disease), lumbar (Acute) History of CVA (cerebrovascular accident) (Acute) remote Fracture of both wrists (Acute) Goiter (Acute) Fibromyalgia (Chronic) KWAME (obstructive sleep apnea) (Chronic) Chronic pain (Chronic) Movement disorder (Acute) Chronic renal insufficiency, stage III (moderate) (Acute) Anemia (Chronic) Hypertension (Chronic) Medical History (Updated 12/18/24 @ 10:40 by Enid Bonner APRN) Psychiatric symptoms Ambulatory dysfunction Palliative care patient AMS (altered mental status) Rhabdomyolysis Fall ACP (advance care planning) Primary osteoarthritis of left knee We will see the patient back in 4-1/2 months for possible repeat Synvisc 1 in her left knee would consider x-ray in her right knee if she is still significantly symptomatic Osteoarthritis of right knee Steroid injection: 04/05/2020 Has had previous viscosupplementation injections. 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) As treatment for a femoral neck fracture (DOI: 09/16/2020) History of back surgery Hx of cholecystectomy Social History Smoking/Tobacco Use Status: Never Smoking risk assessment performed?: Yes Alcohol Intake: never Drug use: Never Substance use type: does not use Housing: group home Do you feel safe at home: Yes Do you feel safe in your relationship?: Yes Additional Social history: lives alone, has caregiver that come 7 days a week, do all the meds Time Spent with Patient Time Spent with Patient: 70-84 minutes4 Time was spent: preparing to see the patient(eg.review tests), obtaining and/or reviewing separately otained hiistory, ordering medications,tests, procedures, referring, communicating with other health critical care physician assistant, indepentently interpreting results, counseling the patient and care coordination
[2024-12-19] MEDS: Cefpodoxime 200 MG TAB PO (12:48)
--- NOTE | 2024-12-19 13:33 | NUR.NOTE ---
Report called to rehab center. Report given to nurse Pedro. Nursing Note:
== END 2024-12-19 13:35 | disposition skilled nursing facility (03) | DRG 690 ==
LOC: ER 17:43 → MS 21:06
PROVIDERS: Admitting Provider Hospitalist; Emergency Provider Emergency Medicine; PCP Family Medicine; Responsible Provider Nurse Practitioner Acute Care; Visit Provider Hospitalist
DX: E86.0 Dehydration (principal); R29.6 Repeated falls; R56.9 Unspecified convulsions; F32.A Depression, unspecified; N39.0 Urinary tract infection, site not specified; Z79.899 Other long term (current) drug therapy; G93.40 Encephalopathy, unspecified; D64.9 Anemia, unspecified; N17.9 Acute kidney failure, unspecified; B95.4 Other streptococcus as the cause of diseases classified elsewhere; Z86.73 Personal history of transient ischemic attack (TIA), and cerebral infarction without residual deficits; R62.7 Adult failure to thrive; N18.9 Chronic kidney disease, unspecified; K44.9 Diaphragmatic hernia without obstruction or gangrene; I25.10 Atherosclerotic heart disease of native coronary artery without angina pectoris; M79.7 Fibromyalgia; G47.33 Obstructive sleep apnea (adult) (pediatric); N18.30 Chronic kidney disease, stage 3 unspecified; I12.9 Hypertensive chronic kidney disease with stage 1 through stage 4 chronic kidney disease, or unspecified chronic kidney disease; K57.30 Diverticulosis of large intestine without perforation or abscess without bleeding; E83.42 Hypomagnesemia; K58.1 Irritable bowel syndrome with constipation; G47.00 Insomnia, unspecified; H90.3 Sensorineural hearing loss, bilateral; Z96.642 Presence of left artificial hip joint; Z79.891 Long term (current) use of opiate analgesic
CPT/HCPCS: 00123; 36415; 80048; 80053; 80307; 85027; 87077; 93005; 96365; 97162; 97530; 99285; J1650; 70450; 80177; 80320; 81003; 81015; 82140; 82728; 83540; 83550; 83735; 84443; 85025; 87086; 93010; 99222; 99233; 99239; J0696

== ENCOUNTER 2024-12-21 01:08 | Observation (INO) | payer MEDICARE, MEDICAID, SELFPAY ==
[2024-12-21] VITALS (52 sets, daily range): BP systolic 116–180; BP diastolic 55–88; PULSE 48–76; RESP 12–19; TEMP 35.6–36.9; O2SAT 92–100
--- NOTE | 2024-12-21 01:15 | RT.EKG_ITS ---
APPROVED REPORT Exam: Resting ECG Reason for Exam: altered mental status Patient Location: E HR:67 bpm ECG Measurements Heart Rate 67 AXIS OK 192 P 53 QRSd 97 QRS 33 QT 439 T 56 QTc 464 Conclusion Sinus rhythm...normal P axis, V-rate 60- [address] segment or T wave abnormalities to suggest occlusive RI
--- NOTE | 2024-12-21 01:21 | W.ED.GENAD ---
Discharge Plan Disposition Patient Disposition: Admit to [facility] Condition: Serious Discharge Details Clinical Impression: Encephalopathy, Altered mental status, [place] coma scale score 3-8, at arrival to emergency department Primary Care Provider: Marixa Kurtz ED Provider: Ruchi Estrada Home Meds and New Rx's Prescriptions: No Action aspirin 81 mg tablet,delayed release (DR/EC) 81 mg PO DAILY omeprazole 40 MG capsule,delayed release(DR/EC) 40 mg PO DAILY vitamin B complex Tablet 1 tab PO DAILY acetaminophen 325 mg Tablet 650 mg PO QID Qty: 30 0RF melatonin 3 mg Tablet 9 mg PO HS Qty: 15 0RF mirtazapine 15 mg Tablet 15 mg PO HS Qty: 30 0RF oxycodone [OxyContin] 10 mg Tablet,Oral Only,Ext.Rel.12 Hr 10 mg PO BID Qty: 10 0RF Phlexy-Vits 15 mg- 700 mcg Powder In Packet 1 packet PO TID Qty: 30 0RF cefpodoxime 200 mg tablet 200 mg PO Q12H Qty: 6 0RF Rx Instructions: must administer with a meal/food sennosides [senna] 8.6 mg tablet 8.6 mg PO QPM amlodipine 10 mg tablet 10 mg PO DAILY naloxone 4 mg/actuation spray,non-aerosol 4 mg INTRANASAL ONCE PRN Patient Comments: ADMINISTER 1 SPRAY INTO ONE NOSTRIL A SINGLE DOSE NEEDED FOR EXCESSIVE SEDATION nitrofurantoin monohyd/m-cryst 100 mg capsule 100 mg PO DAILY ondansetron HCl 4 mg tablet 4 mg PO BID PRN (Reason: nausea and vomiting) Patient Comments: TAKE ONE TABLET BY MOUTH TWICE A DAY BEFORE MEALS FOR NAUSEA risperidone 1 mg tablet 1 mg PO .Bedtime Patient Comments: TAKE ONE TABLET BY MOUTH AT BEDTIME oxycodone [OxyContin] 40 mg tablet,oral only,ext.rel.12 hr 40 mg PO BID levetiracetam 500 mg Tablet 500 mg PO BID Qty: 60 0RF atorvastatin 20 mg Tablet 20 mg PO QPM Qty: 30 0RF HPI General Mode of arrival: EMS. Date/Time Provider Initiated Documentation: 12/21/24 01:21. Limitations to Documentation: altered mental status. Information obtained by: EMS and old records reviewed. HPI Narrative: 74yo F presenting from health and rehab for unresponsiveness. History from EMS and [facility] record review. Per EMS, patient was unresponsive during the day shift and then also this evening. Unresponsive to sternal rub on their arrival. Normal vital signs, good O2 sat on 2L NC. No further history was reportedly provided by sending facility to EMS. Related Data Home Medications ?Medication ?Instructions ?Recorded ?Confirmed omeprazole 40 mg capsule,delayed 40 mg PO DAILY 05/19/14 12/21/24 release vitamin B complex 1 tab PO DAILY 01/05/20 12/21/24 aspirin 81 mg tablet,delayed 81 mg PO DAILY 06/23/21 12/21/24 release amlodipine 10 mg tablet 10 mg PO DAILY 01/14/22 12/21/24 sennosides 8.6 mg tablet (senna) 8.6 mg PO QPM 01/14/22 12/21/24 naloxone 4 mg/actuation nasal spray 4 mg intranasal ONCE PRN 07/16/23 12/21/24 nitrofurantoin 100 mg PO DAILY 08/18/24 12/21/24 monohydrate/macrocrystals 100 mg capsule ondansetron HCl 4 mg tablet 4 mg PO BID PRN nausea and vomiting 08/18/24 12/21/24 risperidone 1 mg tablet 1 mg PO .Bedtime 08/18/24 12/21/24 oxycodone 40 mg tablet,crush 40 mg PO BID 08/19/24 12/21/24 resistant,extended release 12 hr (OxyContin) atorvastatin 20 mg tablet 20 mg PO QPM #30 tabs 08/23/24 12/21/24 levetiracetam 500 mg tablet 500 mg PO BID #60 tabs 08/23/24 12/21/24 acetaminophen 325 mg tablet 650 mg (2 x 325 mg) PO QID #30 tabs 09/01/24 12/21/24 melatonin 3 mg tablet 9 mg (3 x 3 mg) PO HS #15 tabs 09/01/24 12/21/24 mirtazapine 15 mg tablet 15 mg PO HS #30 tabs 09/01/24 12/21/24 multivit with mins-ferrous sulf 15 1 packet PO TID #30 ea 09/01/24 12/21/24 mg-folic 700 mcg oral powder packet (Phlexy-Vits) oxycodone 10 mg tablet,crush 10 mg PO BID #10 tabs 09/01/24 12/21/24 resistant,extended release 12 hr (OxyContin) cefpodoxime 200 mg tablet 200 mg PO Q12H #6 tabs 12/19/24 12/21/24 Previous Rx's ?Medication ?Instructions ?Recorded atorvastatin 20 mg tablet 20 mg PO QPM #30 tabs 08/23/24 levetiracetam 500 mg tablet 500 mg PO BID #60 tabs 08/23/24 acetaminophen 325 mg tablet 650 mg (2 x 325 mg) PO QID #30 tabs 09/01/24 melatonin 3 mg tablet 9 mg (3 x 3 mg) PO HS #15 tabs 09/01/24 mirtazapine 15 mg tablet 15 mg PO HS #30 tabs 09/01/24 multivit with mins-ferrous sulf 15 1 packet PO TID #30 ea 09/01/24 mg-folic 700 mcg oral powder packet (Phlexy-Vits) oxycodone 10 mg tablet,crush 10 mg PO BID #10 tabs 09/01/24 resistant,extended release 12 hr (OxyContin) cefpodoxime 200 mg tablet 200 mg PO Q12H #6 tabs 12/19/24 Allergies Allergy/AdvReac Type Severity Reaction Status Date / Time sulfamethoxazole (From Allergy Diarrhea Verified 12/21/24 01:17 Bactrim) trimethoprim (From Bactrim) Allergy Diarrhea Verified 12/21/24 01:17 morphine AdvReac Intermediate Psychosis Verified 12/21/24 01:17 baclofen AdvReac Unknown Unknown Verified 12/21/24 01:17 chlorthalidone AdvReac Unknown Unknown Verified 12/21/24 01:17 codeine AdvReac Unknown Unknown Verified 12/21/24 01:17 dextromethorphan AdvReac Unknown Unknown Verified 12/21/24 01:17 gabapentin (From Neurontin) AdvReac Unknown Unknown Verified 12/21/24 01:17 hydrochlorothiazide AdvReac Unknown Unknown Verified 12/21/24 01:17 pregabalin AdvReac Unknown Dopey Verified 12/21/24 01:17 General Stated Complaint: AMS/LOC LOLITA: 2 Review of Systems Unobtainable due to mental status Exam Narrative Exam Narrative: General: Unresponsive, cachectic Head: Normocephalic, atraumatic Neck: Trachea midline, ?Neck supple. ENT: ?MMM.? Cardiac: ?RRR, no murmurs appreciated Resp: No respiratory distress. CTAB. Abd: ?Soft, non-distended, nontender Extremities: ?No deformities.? No peripheral edema. Neuro: ? GCS 7 (E1 V1 M5).? PERRL.? Rightward upward gaze. Localizes to sternal rub with bilateral UE r>l. No posturing or tremors. Course Vital Signs Vital signs: Vital Signs Temperature 35.8 C L 12/21/24 01:10 Pulse 70 12/21/24 01:10 Respiratory Rate 15 12/21/24 01:10 Pulse Oximetry 98 12/21/24 01:10 Temperature 35.8 C L 12/21/24 01:10 Pulse 70 12/21/24 01:10 Respiratory Rate 15 12/21/24 01:10 Blood Pressure Position Supine 12/21/24 01:10 Pulse Oximetry 98 12/21/24 01:10 Oxygen Delivery Method Room Air 12/21/24 01:10 Oxygen Flow Rate 0 12/21/24 01:10 Pain Level 0 12/21/24 01:10 Medical Decision Making 74yo F with hx CVA, CKD, HTN, seizures, presenting from health [facility] rehab for unresponsiveness. History from EMS and [facility] record review; per EMS, patient was unresponsive during the day shift and then also this evening and was unresponsive to sternal rub on their arrival with normal vital signs and good O2 sat on 2L NC. On arrival patient with reassuring vital signs, normal O2 sat on room air, unresponsive to voice with sonorous respirations. Localizes pain with RUE, gaze deviated up and to the right, PERRL. GCS 7 (E1 V1 M5). Records from facility show full code status last updated 11/11/24; [facility] records show DNR/DNI status on most recent admission (admission for UTI and dehydration with discharge on 12/19) which is consistent with prior palliative care notes. Will honor more recent status and not intubate at this despite current GCS. EKG NSR, appropriate intervals, no ST segment or T wave abnormalities to suggest occlusive DE. Will get line and labs and initiate broad work for altered mental status; I am most suspicious for seizure/post-ictal state based on initial presentation. Will give 1g of keppra as well as 0.2mg IV narcan (though pupils are not pinpoint) in case opiate toxicity is contributing, low dose narcan as she is on opiates chronically. CVA also possible; no clear last known normal (seems to be >12 hours ago based on limited history from facility) and so not a candidate for tPA. Would not get emergent LP at this time. Shortly after arrival and prior to narcan GCS improved, opens eyes to voice, GCS 10 (E3 V2 M5). Given 0.2mg IV narcan with no immediate change. Transported to CT for imaging. ED course: Labs reviewed as below, CBC reassuring with no leukocytosis and anemia at baseline on [facility] record review, CMP with no actionable abnormalities, Mg borderline low at 1.7, VBG and lacate normal, ammonia normal, etoh negative, TSH normal, troponin normal x 2, UA not infected. CT head & c spine independently reviewed; no ICH or mass or displaced cervical fracture on my view; radiology read below with no acute findings. CT chest/abd/pelvis independently reviewed; no focal pneumonia or pneumothorax, or clear bowel obstruction or free fluid on my view; radiology read below with nothing to explain patient's presentation. On reassessment patient with waxing and waning alertness, GCS 7-12 on repeat reassessments. At no point follows commands or answers questions. Unclear etiology of altered mental status; would benefit from hospital admission for further workup and management, CTA vs MRI when available. Discussed with [facility] hospitalist Dr. Key; pt accepted to medicine service. Awaiting transfer to the floor. Medical Records Medical records reviewed: Yes I reviewed the patient's medical records. Imaging Data Radiologic Study: Imaging: CT Scan Radiologist's impression: HEAD: IMPRESSION 1. No acute intracranial abnormality seen. 2. Presumed chronic microvascular ischemic change. Patchy hypoattenuation in the region of the basal ganglia and deep white matter tracts with an appearance suggesting lacunar infarcts, uncertain chronicity but suspected to be old. Moderate-sized old right occipital infarct. 3. Symmetric parenchymal volume loss. C-spine: IMPRESSION: 1. No acute cervical fracture or malalignment. 2. Prior surgical fusion at C4-C7. 3. Degenerative changes with multilevel central canal narrowing and neural foraminal narrowing, as detailed level by level above. Chest: IMPRESSION: 1. Small left pleural effusion. Otherwise, no active disease is seen in the chest. 2. 4.2 cm x 5.7 cm hiatal hernia. 3. Nonacute findings, as above Abd/pelvis: IMPRESSION: 1. No acute bowel pathology demonstrated. 2. Hyperdense material in the right posterior bladder lumen. Bladder stones could have this appearance although contrast material from a test bolus could perhaps mimic this appearance. Clinical correlation is recommended. Quality:SDOH Health Related Social Needs: Health related social needs material hardship Critical Care Time Critical Care Time Critical Care Time: Yes Total Critical Care Time: 32 Attestation: Due to a high probability of clinically significant, life threatening deterioration, the patient required my highest level of preparedness to intervene emergently and I personally spent this critical care time directly and personally managing the patient. This critical care time included obtaining a history; examining the patient; pulse oximetry; ordering and review of studies; arranging urgent treatment with development of a management plan; evaluation of patient's response to treatment; frequent reassessment; and, discussions with other providers. This critical care time was performed to assess and manage the high probability of imminent, life-threatening deterioration that could result in multi-organ failure. It was exclusive of separately billable procedures and treating other patients PFSH All Active Problems (Updated 12/21/24 @ 05:31 by Ruchi Estrada MD) [place] coma scale score 3-8, at arrival to emergency department (Acute) Altered mental status (Acute) Encephalopathy (Acute) Low magnesium level (Acute) Mental status alteration (Acute) UTI (urinary tract infection) (Acute) Acute UTI (Acute) Altered mental status (Acute) Failure to thrive in adult (Acute) Weakness (Acute) Falls frequently (Acute) Trouble talking (Acute) Acute UTI (Acute) Acute kidney injury superimposed on CKD (Acute) Lives in intermediate (Acute) Deficit in activities of daily living (ADL) (Acute) Closed fracture of distal end of radius (Acute) Closed fracture of left distal radius (Acute) Closed fracture of right distal radius (Acute) Heart murmur (Acute) Depression (Chronic) At high risk for skin breakdown (Acute) Periorbital edema (Acute) Hiatal hernia (Chronic) moderate Coronary artery calcification seen on CAT scan (Acute) Diverticula of colon (Acute) DJD (degenerative joint disease), lumbar (Acute) History of CVA (cerebrovascular accident) (Acute) remote Fracture of both wrists (Acute) Goiter (Acute) Fibromyalgia (Chronic) KWAME (obstructive sleep apnea) (Chronic) Chronic pain (Chronic) Movement disorder (Acute) Chronic renal insufficiency, stage III (moderate) (Acute) Anemia (Chronic) Hypertension (Chronic) Medical History (Updated 12/21/24 @ 05:31 by Ruchi Estrada MD) Encephalopathy Seizure Psychiatric symptoms Ambulatory dysfunction Palliative care patient AMS (altered mental status) Rhabdomyolysis Fall ACP (advance care planning) Primary osteoarthritis of left knee We will see the patient back in 4-1/2 months for possible repeat Synvisc 1 in her left knee would consider x-ray in her right knee if she is still significantly symptomatic Osteoarthritis of right knee Steroid injection: 04/05/2020 Has had previous viscosupplementation injections. 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) As treatment for a femoral neck fracture (DOI: 09/16/2020) History of back surgery Hx of cholecystectomy Social History Smoking/Tobacco Use Status: Never Smoking risk assessment performed?: Yes Alcohol Intake: never Drug use: Never Substance use type: does not use Housing: intermediate Do you feel safe at home: Yes Do you feel safe in your relationship?: Yes Additional Social history: health and rehab
[2024-12-21 01:27] LABS: Abs Immature Grans 0.02 10^3/uL (0.0-0.06); HCT 28.8 % (36.0-46.0); HGB 9.3 g/dL (11.2-15.7); Immature Grans % 0.5 %; MCH 27.6 pg (27.0-33.0); MCHC 32.3 % (32.0-36.0); MCV 86 fL (80-95); MPV 9.6 fL (8.0-11.0); Platelet Count 229 10^3/uL (130-400); RBC 3.37 10^6/uL (3.93-5.22); RDW 13.9 % (11.7-14.6); RDW-SD 42.8 fL; WBC 4.39 10^3/uL (4.4-10.8)
[2024-12-21] MEDS: Naloxone 0.4 MG/ML VIAL 0.2 MG IVP (01:30)
[2024-12-21 01:46] LABS: Ammonia 22 umol/L (11-32)
[2024-12-21 01:56] LABS: ALT 25 U/L (14-59); AST 26 U/L (15-37); Albumin 2.7 g/dL (3.4-5.0); Alkaline Phosphatase 71 U/L (46-116); Anion Gap 8.0 mmol/L (3-11); BUN 19 mg/dL (7-18); Bilirubin, Total 0.2 mg/dL (0.2-1.0); CO2 28.0 mmol/L (21.0-32.0); Calcium 8.8 mg/dL (8.5-10.1); Chloride 109 mmol/L (98-107); Estimated GFR 92.97 (mL/min/1.73m2); Glucose 112 mg/dL (74-106); Magnesium 1.7 mg/dL (1.8-2.4); Potassium 3.8 mmol/L (3.5-5.1); Sodium 145 mmol/L (136-145); TSH (W/Ref FT4) 0.80 uIU/mL (0.36-3.74); Total Protein 7.6 g/dL (6.4-8.2); Troponin I 9 ng/L (<or=51)
[2024-12-21 01:58] LABS: BE (Venous) 3 mmol/L (-2-3); HCO3 (Venous) 28 mmol/L (23-28); O2 Sat (Venous) 98 %; TCO2 (Venous) 26 mmol/L (24-29); pCO2 (Venous) 45 mmHg (41-51); pO2 (Venous) 88 mmHg
[2024-12-21] MEDS: Normal Saline - Diluent 50 ML VIAL IJ (02:02)
[2024-12-21] MEDS: Omnipaque 350 MG/ML 100 ML BTL 75 ML IJ (02:03)
--- NOTE | 2024-12-21 02:06 | DI.CT_ITS ---
Exam(s) CT CHEST/ABD/PEL W EXAM: CT CHEST/ABD/PEL W CLINICAL HISTORY: unresponsive. TECHNIQUE: Imaging Protocol: Axial computed tomography images with coronal and sagittal reformatted images were created and reviewed CONTRAST MATERIAL: Intravenous: Omnipaque 350 Contrast volume:75 mL Oral: None COMPARISON: CT CT THORACIC LUMBAR SPINE REC from 08/18/[address] CHEST/ABD/PEL W from 08/18/2024 FINDINGS: CHEST: LUNGS: There are mild increased subpleural markings in the posterior basal segments of both lower lobes. No large infiltrates nor lung masses. There are no pleural effusions. MEDIASTINUM: There is no hilar nor mediastinal adenopathy. Visualized thyroid contains cysts and nodules in both lobes. Both thyroid lobes are moderately enlarged. There is a significant hiatal hernia which measures 5.5 cm wide by 3.5 cm craniocaudal. CARDIAC: Heart size is slightly prominent. There is no pericardial effusion. The diameter of the ascending thoracic aorta is within limits of normal and there is no evidence of aortic dissection nor pericardial effusion.. OSSEOUS: There is anterior fusion hardware in the partially visualized lower cervical spine.No fractures nor listhesis peer. ABDOMEN: There is no ascites. LIVER: Tiny benign cyst in the right hepatic lobe noted. GALLBLADDER/BILIARY: The gallbladder surgically absent. CBD diameter slightly prominent commensurate with post cholecystectomy status. PANCREAS: There is a cyst in the head of the pancreas measuring 1.5 by 1.5 cm. SPLEEN: Spleen is not enlarged. There are no intrasplenic lesions. Splenic and portal veins are patent. ADRENALS: There are no significant adrenal masses. KIDNEYS: No calculi nor hydronephrosis. No solid renal masses. No cysts evident. ABDOMINAL AORTA: The abdominal aorta is calcified. There is a fusiform infrarenal abdominal aortic aneurysm which exhibits a maximum diameter of 2.5 cm. Iliac arteries are calcified but not enlarged. LYMPH NODES: There is no retroperitoneal nor paraaortic adenopathy. ABDOMINAL WALL: No evidence of significant anterior abdominal wall nor inguinal hernia. GI: There is no evidence of bowel obstruction. There are fluid-filled upper normal diameter small bowel loops evident. There is no fluid in the colon. PELVIS: LYMPH NODES: There is no intrapelvic nor inguinal adenopathy. GI: No evidence of appendicitis.There is sigmoid diverticulosis without evidence of obvious acute diverticulitis. URINARY BLADDER: There is abnormal enhancing density in the posterior right urinary bladder wall. This measures 1.7 x 1.4 cm. This may be an enhancing neoplasm or calculus. Cystoscopy recommended REPRODUCTIVE: Uterus and adnexal regions appear age-appropriate. There is no free fluid in the pelvis. OSSEOUS: There is a left hip prosthesis. There are advanced degenerative changes in the opposite-right hip. There is multilevel degenerative disc disease. IMPRESSION: 1. There is a hiatal hernia which measures 5.5 x 3.5 cm. 2. No prominent lung infiltrates and no pleural effusions. 2. Both thyroid lobes are moderately enlarged and contain multiple cysts and nodules. This can be further investigated with ultrasound of the thyroid gland. 3. There is a 1.7 x 1.4 cm area of abnormal enhancement in the posterior right side of the urinary bladder. This is suspicious for bladder neoplasm. Cystoscopy is recommended. 4. There is a 1.5 x 1.5 cm cystic mass pancreatic head. This should be further studied with MRI using pancreatic protocol. 5. There is an infrarenal abdominal aortic aneurysm with maximum diameter of 2.5 cm. There are no iliac artery aneurysms. 6. Sigmoid diverticulosis without evidence of acute diverticulitis. 7. Left hip prosthesis. Advanced degenerative changes in the right hip. Preliminary virtual Radiology report was reviewed Final report was called by myself to the hospitalist physician 12/21/2024 at 4:20 p.m. RADIATION DOSE DELIVERED: 555.91mGy.cm Total DLP DATA REPOSITORY: All CT scans at this facility are submitted to the National Radiology Data Registry (NRDR) Dose Index Registry (DIR) with the [employer] (A[employer]). RADIATION OPTIMIZATION: All CT scans at this facility use at least one of these dose optimization techniques: automated exposure control; mA and/or kV adjustment per patient size (includes targeted exams where dose is matched to clinical indication); or iterative reconstruction.
--- NOTE | 2024-12-21 02:07 | DI.CT_ITS ---
Exam(s) CT HEAD CERVICAL SPINE WO EXAM: CT HEAD CERVICAL SPINE WO CLINICAL HISTORY: unresponsive. TECHNIQUE: Imaging Protocol: Axial computed tomography images with coronal and sagittal reformatted images were created and reviewed COMPARISON: CT CT HEAD WO from 12/17/2024 FINDINGS: BRAIN: There are no skull fractures nor fluid in the visualized paranasal sinuses. There is no evidence of intracranial hemorrhage, mass effect, or shift of midline structures. There are no extra-axial fluid collections. The ventricles are not enlarged or shifted and there is no blood within the ventricular system nor within the basal cisterns. There is an area of encephalomalacia in the right occipital lobe from non acute right occipital lobe infarct, unchanged. There is also abundant bilateral periventricular hypodensity consistent with chronic small vessel disease and there are also bilateral previously described lacunar infarcts in the basal ganglia and periventricular white matter, unchanged and nonhemorrhagic. CERVICAL SPINE: There is anterior fusion hardware at C4-C7 with affective fusion at these levels. There is also an element of fusion across the facet joints at these levels. There is chronic disc space narrowing 1 level above the fusion which is C3-4. C2-3 disc space exhibits normal height Appears C7-T1 level exhibits normal height. There is no significant facet joint malalignment. No significant osseous lesions evident. IMPRESSION: 1. There is abundant bilateral periventricular hypodensity consistent with chronic small vessel disease and there are multiple nonhemorrhagic lacunar infarcts which appear unchanged from CT scan of 12/17/2024.Also again noted is an old infarct in the right occipital lobe, unchanged. No evidence of acute cervical spine fracture, malalignment, nor acute compromise of the cervical spinal canal. Multilevel C4-C7 fusion hardware noted. RADIATION DOSE DELIVERED: 1,062.29mGy.cm Total DLP DATA REPOSITORY: All CT scans at this facility are submitted to the National Radiology Data Registry (NRDR) Dose Index Registry (DIR) with the [employer] (ACR). RADIATION OPTIMIZATION: All CT scans at this facility use at least one of these dose optimization techniques: automated exposure control; mA and/or kV adjustment per patient size (includes targeted exams where dose is matched to clinical indication); or iterative reconstruction.
[2024-12-21 02:34] LABS: Glucose Negative (Negative)
--- NOTE | 2024-12-21 02:34 | DI.VRAD_ITS ---
PROCEDURE INFORMATION: Exam: CT Head Without Contrast Exam date and time: 12/21/2024 1:35 AM Age: 74 years old Clinical indication: Other: Unresponsive TECHNIQUE: Imaging protocol: Computed tomography of the head without contrast. COMPARISON: CT HEAD WO 12/17/2024 3:44 PM FINDINGS: Brain: No acute intracranial hemorrhage, mass-effect, midline shift, or extra-axial collection is seen. There is patchy white matter hypoattenuation, nonspecific but commonly seen as a chronic sequela of small vessel ischemic disease. There is patchy hypoattenuation in the region of the basal ganglia and deep white matter tracts with an appearance suggesting lacunar infarcts, uncertain chronicity but suspected to be old. There is a moderate-sized old right occipital infarct. Otherwise, the marlow-white matter differentiation appears preserved. There are punctate calcifications in the basal ganglia bilaterally. Cerebral ventricles: The ventricular system and basilar cisterns appear prominent but appropriate in size and configuration given the degree of parenchymal volume loss. Paranasal sinuses: The visualized paranasal sinuses appear well-aerated. Mastoid air cells: The visualized mastoid air cells appear well aerated. Auditory system: The middle ear cavities appear clear. Orbital cavities: The globes and intraorbital structures appear grossly intact. Bones: The bony calvarium appears intact. No depressed skull fracture is seen. Soft tissues: No significant scalp lesion is seen. Vasculature: There is atherosclerotic calcification within the intracranial portion of the left vertebral artery and bilateral internal carotid arteries. IMPRESSION: 1. No acute intracranial abnormality seen. 2. Presumed chronic microvascular ischemic change. Patchy hypoattenuation in the region of the basal ganglia and deep white matter tracts with an appearance suggesting lacunar infarcts, uncertain chronicity but suspected to be old. Moderate-sized old right occipital infarct. 3. Symmetric parenchymal volume loss. PROCEDURE INFORMATION: Exam: CT Cervical Spine Without Contrast Exam date and time: 12/21/2024 1:35 AM Age: 74 years old Clinical indication: Other: Unresponsive TECHNIQUE: Imaging protocol: Computed tomography of the cervical spine without contrast. COMPARISON: CT HEAD CERVICAL SPINE WO 08/28/2024 9:23 PM FINDINGS: Bones/joints: No acute cervical fracture or malalignment is seen. There has been prior anterior surgical fusion at C4-C7 with an anterior fixation hardware, interbody graft material, and interbody cages. There is no evidence of hardware breakage or loosening. The metallic density in the right aspect of the ring of C1 on image 51 of series 8 has an appearance suspicious for a surgical clip, also present on the comparison exam from August 28, 2024. Correlation with procedure history is recommended. C2-C3: Disc height preserved. Mild central canal narrowing. No significant right-sided foraminal narrowing. Mild left-sided foraminal narrowing. C3-C4: Mild loss of disc height with anterior osteophyte formation, posterior osteophytic ridging, and bilateral uncovertebral hypertrophy. Mild central canal narrowing with deformity of the thecal sac. Moderate left and moderate-severe right-sided foraminal narrowing. C4-C5: Surgically fused anteriorly. Extensive associated streak artifact. No central canal narrowing or significant foraminal narrowing. Bilateral facet fusion. C5-C6: Surgically fused anteriorly. Extensive artifact. No significant cervical stenosis. Mild bilateral foraminal narrowing. Bilateral facet fusion. C6-C7: Surgically fused anteriorly. Extensive streak artifact. Mild central canal narrowing. Moderate bilateral foraminal narrowing. Bilateral facet fusion. C7-T1: Disc height relatively preserved. No significant cervical stenosis. Mild bilateral foraminal narrowing. Thyroid: The thyroid gland is partially excluded from view but appears mildly enlarged and heterogeneous with hypoattenuating nodular regions, the largest of which measures 9 mm on the left on image 154 of series 7, not well characterized but possibly a thyroid goiter in a patient of this age. Lungs: The extreme lung apices appear clear. Soft tissues: Within the limits of the exam, no gross soft tissue fluid collection is seen in the neck. IMPRESSION: 1. No acute cervical fracture or malalignment. 2. Prior surgical fusion at C4-C7. 3. Degenerative changes with multilevel central canal narrowing and neural foraminal narrowing, as detailed level by level above. Dictated and Authenticated by: Erasmo Zurita MD. Orderin Sean Hopper MD
--- NOTE | 2024-12-21 02:44 | DI.VRAD_ITS ---
PROCEDURE INFORMATION: Exam: CT Chest With Contrast; Diagnostic Exam date and time: 12/21/2024 1:43 AM Age: 74 years old Clinical indication: Other: Unresponsive TECHNIQUE: Imaging protocol: Diagnostic computed tomography of the chest with contrast. Contrast material: OMNIPAQUE 350; Contrast volume: 75 ml; Contrast route: INTRAVENOUS (IV); COMPARISON: CT CHEST/ABD/PEL W 08/18/2024 1:30 PM FINDINGS: Limitations: Extensive streak artifact, created at least in part by arm positioning. Thyroid: Heterogeneous thyroid gland, mildly enlarged with scattered hypoattenuating regions, not well characterized by today's exam but possibly colloid cysts and/or hypoattenuating nodules in the setting of a thyroid goiter. Clinical correlation recommended. Lungs: Mild streaky and dependent atelectasis. No region of jorge luis pulmonary consolidation. Pleural spaces: Tiny left-sided pleural effusion. No right-sided pleural effusion or pneumothorax. Heart: Overall normal-sized heart. Relative dilatation of the right cardiac chambers suspicious for right heart failure. Coronary artery calcification. Mitral valve calcification. Lymph nodes: No pathologically enlarged mediastinal or hilar lymph nodes. Vasculature: No thoracic aortic aneurysm or dissection. Exam not tailored to evaluate the pulmonary arterial vasculature. Within the limits of the exam, no pulmonary embolism identified. Diaphragm: 4.2 cm x 5.7 cm hiatal hernia Bones/joints: Surgical anchor in-situ in the proximal right humerus. Anterior cervical fixation hardware partially demonstrated. No acute fracture seen among the bones of the chest. Soft tissues: No gross soft tissue mass or fluid collection seen in the chest wall. IMPRESSION: 1. Small left pleural effusion. Otherwise, no active disease is seen in the chest. 2. 4.2 cm x 5.7 cm hiatal hernia. 3. Nonacute findings, as above. PROCEDURE INFORMATION: Exam: CT Abdomen And Pelvis With Contrast Exam date and time: 12/21/2024 1:43 AM Age: 74 years old Clinical indication: Other: Unresponsive TECHNIQUE: Imaging protocol: Computed tomography of the abdomen and pelvis with contrast. Contrast material: OMNIPAQUE 350; Contrast volume: 75 ml; Contrast route: INTRAVENOUS (IV); COMPARISON: CT CHEST/ABD/PEL W 08/18/2024 1:30 PM FINDINGS: Limitations: Extreme paucity of intra-abdominal fat with limited differentiation of normal anatomic structures. Extensive streak artifact, created at least in part by arm positioning. Liver: Liver partially obscured by artifact. Small indeterminate hypoattenuating hepatic lesions, incompletely characterized but most likely small cysts and/or hemangiomas. Gallbladder and biliary ducts: Prior cholecystectomy with postop biliary dilatation. Pancreas: Pancreas partially obscured and not well evaluated but demonstrating at least mild-moderate atrophy. Clinical correlation recommended. Spleen: Spleen partially obscured by artifact but grossly unremarkable, as seen. Adrenal glands: Normal appearing adrenal glands. Kidneys and ureters: Kidneys partially obscured by artifact. Tiny bilateral hypoattenuating renal lesions, poorly characterized by today's exam but statistically most likely small renal cysts. No hydronephrosis. Ureters obscured. Stomach and bowel: Stomach partially distended with ingested material. No small bowel dilatation to suggest obstruction. Normal-appearing fecal material in the colon. No evidence of diverticulitis or colitis. Appendix: Normal appendix, partially obscured. Intraperitoneal space: No gross ascites or free air. Vasculature: Normal caliber abdominal aorta. Lymph nodes: No pathologically enlarged mesenteric, retroperitoneal, or pelvic sidewall lymph nodes. Urinary bladder: Urinary bladder partially obscured by streak artifact but moderately distended. Hyperdense material in the right posterior bladder lumen. Bladder stones could have this appearance although contrast material from a test bolus could perhaps mimic this appearance. Reproductive: Uterus and left ovary partially obscured but normal in size. Right ovary not confidently identified, obscured if present. Correlation with surgical history recommended. Bones/joints: Prior left hip arthroplasty with streak artifact created by the metallic prosthesis partially obscuring the lower pelvis. Moderate osteoarthritis at the right hip joint. Levoscoliotic curvature at the lumbosacral junction. Spinal degenerative change with discogenic degeneration and facet arthrosis at multiple levels resulting in multilevel central canal narrowing and neural foraminal narrowing. Apparent prior lumbar surgery with posterior decompression defects. No acute fracture seen. Soft tissues: No significant ventral or inguinal hernia. IMPRESSION: 1. No acute bowel pathology demonstrated. 2. Hyperdense material in the right posterior bladder lumen. Bladder stones could have this appearance although contrast material from a test bolus could perhaps mimic this appearance. Clinical correlation is recommended. Dictated and Authenticated by: Erasmo Zurita MD. Orderin Sean Hopper MD
[2024-12-21 02:50] LABS: Troponin I 9 ng/L (<or=51)
--- NOTE | 2024-12-21 03:24 | W.PM.HP.N ---
Date of service: 12/21/24 Time of Service: 03:24 Assessment and Plan Assessment and plan (1) Seizure: Assessment and plan: possible seizure but this does not look postictal. An ordered keppra level from last admission is still pending (2) UTI (urinary tract infection): Status: Acute Assessment and plan: recent rx makes this unlikely (3) Mental status alteration: Status: Acute Assessment and plan: exact etiology is unknown. Will order a mri to rule out massive cva. Pt does look dehydrated on physical exam and has some evidence on her lab work. Will start hydration as well. Certainly could cause AMS in her age group and comorbidities. Will also place levi to closely monitor urine output. Will also check an ammonia level for completeness (4) Low magnesium level: Status: Acute Assessment and plan: replace when tolerating po History of Present Illness History of Present Illness Chief Complaint: mental status change Narrative: This is a 7 74-year-old female who was recently admitted and discharged from this hospital. The last admission was between 12/17-12/19 of this month. At that time the patient was diagnosed with a urinary tract infection as well as some mental status change and dehydration. Patient was discharged to one of the local longterm facilities. By the way, all of this is through chart review as the patient does not responding and cannot participate in the exam. Per notes reviewed from the ED, the patient had been unresponsive essentially all day and at some point [facility] decided to alert EMS. She was evaluated with her was noted to have significant mental status change and was subsequently transferred to the ED for further evaluation. Patient's workup including EKG lab work CT head CT chest was fairly benign. Patient does have an elevated BUN/creatinine ratio. Urine drug screen has not been performed. Patient's alcohol level was negative. Review of Systems Unobtainable due to mental condition [facility] All Active Problems (Updated 12/21/24 @ 03:36 by Charbel Key MD) Low magnesium level (Acute) Mental status alteration (Acute) UTI (urinary tract infection) (Acute) Acute UTI (Acute) Altered mental status (Acute) Failure to thrive in adult (Acute) Weakness (Acute) Falls frequently (Acute) Trouble talking (Acute) Acute UTI (Acute) Acute kidney injury superimposed on CKD (Acute) Lives in correction (Acute) Deficit in activities of daily living (ADL) (Acute) Closed fracture of distal end of radius (Acute) Closed fracture of left distal radius (Acute) Closed fracture of right distal radius (Acute) Heart murmur (Acute) Depression (Chronic) At high risk for skin breakdown (Acute) Periorbital edema (Acute) Hiatal hernia (Chronic) moderate Coronary artery calcification seen on CAT scan (Acute) Diverticula of colon (Acute) DJD (degenerative joint disease), lumbar (Acute) History of CVA (cerebrovascular accident) (Acute) remote Fracture of both wrists (Acute) Goiter (Acute) Fibromyalgia (Chronic) KWAME (obstructive sleep apnea) (Chronic) Chronic pain (Chronic) Movement disorder (Acute) Chronic renal insufficiency, stage III (moderate) (Acute) Anemia (Chronic) Hypertension (Chronic) Medical History (Updated 12/21/24 @ 03:36 by Charbel Key MD) Encephalopathy Seizure Psychiatric symptoms Ambulatory dysfunction Palliative care patient AMS (altered mental status) Rhabdomyolysis Fall ACP (advance care planning) Primary osteoarthritis of left knee We will see the patient back in 4-1/2 months for possible repeat Synvisc 1 in her left knee would consider x-ray in her right knee if she is still significantly symptomatic Osteoarthritis of right knee Steroid injection: 04/05/2020 Has had previous viscosupplementation injections. 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) As treatment for a femoral neck fracture (DOI: 09/16/2020) History of back surgery Hx of cholecystectomy Social History Smoking/Tobacco Use Status: Never Smoking risk assessment performed?: Yes Alcohol Intake: never Drug use: Never Substance use type: does not use Housing: correction Do you feel safe at home: Yes Do you feel safe in your relationship?: Yes Additional Social history: health and rehab Meds Allergies and Home Medications Allergies Allergy/AdvReac Type Severity Reaction Status Date / Time sulfamethoxazole (From Allergy Diarrhea Verified 12/21/24 01:17 Bactrim) trimethoprim (From Bactrim) Allergy Diarrhea Verified 12/21/24 01:17 morphine AdvReac Intermediate Psychosis Verified 12/21/24 01:17 baclofen AdvReac Unknown Unknown Verified 12/21/24 01:17 chlorthalidone AdvReac Unknown Unknown Verified 12/21/24 01:17 codeine AdvReac Unknown Unknown Verified 12/21/24 01:17 dextromethorphan AdvReac Unknown Unknown Verified 12/21/24 01:17 gabapentin (From Neurontin) AdvReac Unknown Unknown Verified 12/21/24 01:17 hydrochlorothiazide AdvReac Unknown Unknown Verified 12/21/24 01:17 pregabalin AdvReac Unknown Dopey Verified 12/21/24 01:17 Home Medications ?Medication ?Instructions ?Recorded ?Confirmed ?Type omeprazole 40 mg capsule,delayed 40 mg PO DAILY 05/19/14 12/21/24 History release vitamin B complex 1 tab PO DAILY 01/05/20 12/21/24 History aspirin 81 mg tablet,delayed 81 mg PO DAILY 06/23/21 12/21/24 History release amlodipine 10 mg tablet 10 mg PO DAILY 01/14/22 12/21/24 History sennosides 8.6 mg tablet (senna) 8.6 mg PO QPM 01/14/22 12/21/24 History naloxone 4 mg/actuation nasal spray 4 mg intranasal ONCE PRN 07/16/23 12/21/24 History nitrofurantoin 100 mg PO DAILY 08/18/24 12/21/24 History monohydrate/macrocrystals 100 mg capsule ondansetron HCl 4 mg tablet 4 mg PO BID PRN nausea and vomiting 08/18/24 12/21/24 History risperidone 1 mg tablet 1 mg PO .Bedtime 08/18/24 12/21/24 History oxycodone 40 mg tablet,crush 40 mg PO BID 08/19/24 12/21/24 History resistant,extended release 12 hr (OxyContin) atorvastatin 20 mg tablet 20 mg PO QPM #30 tabs 08/23/24 12/21/24 Rx levetiracetam 500 mg tablet 500 mg PO BID #60 tabs 08/23/24 12/21/24 Rx acetaminophen 325 mg tablet 650 mg (2 x 325 mg) PO QID #30 tabs 09/01/24 12/21/24 Rx melatonin 3 mg tablet 9 mg (3 x 3 mg) PO HS #15 tabs 09/01/24 12/21/24 Rx mirtazapine 15 mg tablet 15 mg PO HS #30 tabs 09/01/24 12/21/24 Rx multivit with mins-ferrous sulf 15 1 packet PO TID #30 ea 09/01/24 12/21/24 Rx mg-folic 700 mcg oral powder packet (Phlexy-Vits) oxycodone 10 mg tablet,crush 10 mg PO BID #10 tabs 09/01/24 12/21/24 Rx resistant,extended release 12 hr (OxyContin) cefpodoxime 200 mg tablet 200 mg PO Q12H #6 tabs 12/19/24 12/21/24 Rx Exam Narrative Exam Narrative: HEENT-NCAT MM DRY PUPILS RESPONSIVE TO LIGHT BILAT NECK-NO LAD NO JVD CV-RRR NO MRG LUNGS CTAB NO AMU ABD SCHAPOID EXT-NO CCE BILAT NEURO-PATELLAR REFLEXES BLUNTED RESPONDS TO STERNAL RUB BUT NOT TO VERBAL STIMULI Results Labs 12/21/24 01:15 12/21/24 01:15 Labs: Laboratory Results - last 24 hr 12/21/24 12/21/24 12/21/24 01:15 01:26 02:27 WBC 4.39 L RBC 3.37 L Hgb 9.3 L Hct 28.8 L MCV 86 MCH 27.6 MCHC 32.3 RDW 13.9 Plt Count 229 MPV 9.6 Immature Gran % 0.5 Neutrophils % 69.4 Lymphocytes % 15.5 Monocytes % 12.3 Eosinophils % 1.8 Basophils % 0.5 Nucleated RBC % 0.0 Absolute Neutrophils 3.05 Absolute Lymphocytes 0.68 L Absolute Monocytes 0.54 Absolute Eosinophils 0.08 Absolute Basophils 0.02 VBG pH 7.40 VBG pCO2 45 VBG pO2 88 VBG HCO3 28 VBG Total CO2 26 VBG O2 Saturation 98 VBG Base Excess 3 VBG Lactate 1.1 Sodium 145 Potassium 3.8 Chloride 109 H Carbon Dioxide 28.0 Anion Gap 8.0 BUN 19 H Creatinine 0.6 Est GFR (CKD-EPI 2020) 92.97 Glucose 112 H Calcium 8.8 Magnesium 1.7 L Total Bilirubin 0.2 AST 26 ALT 25 Alkaline Phosphatase 71 Ammonia 22 Troponin I 9 9 Total Protein 7.6 Albumin 2.7 L TSH 0.80 Urine Color Yellow Urine Clarity Clear Urine pH 6.0 Ur Specific [place] 1.020 Urine Protein Negative Urine Ketones Negative Urine Blood Negative Urine Nitrite Negative Urine Bilirubin Negative Urine Urobilinogen 0.2 Ur Leukocyte Esterase Negative Urine Glucose Negative Ethyl Alcohol < 3.0 Last Vital Signs Temp 35.6 C L 12/21/24 01:35 Pulse 65 12/21/24 02:50 Resp 15 12/21/24 02:50 BP 122/79 12/21/24 02:46 Pulse Ox 100 12/21/24 02:50 Time Spent Time spent with Patient: <40 minutes Time was spent: preparing to see the patient(eg.review tests), obtaining and/or reviewing separately otained hiistory, ordering medications,tests, procedures, referring, communicating with other health manager medicare marketing, indepentently interpreting results, counseling the patient and care coordination
[2024-12-21] MEDS: Lactated Ringers 1,000 ML 150 ML IV ×3 (03:50→20:21)
[2024-12-21 03:58] LABS: Cannabinoids THC Negative (Negative); METHADONE URINE SCREEN Negative (Negative)
[2024-12-21 04:46] LABS: MRSA PCR Negative (Negative)
--- NOTE | 2024-12-21 05:38 | W.PCEDHO ---
Registration Status: REG ER Primary Language: Preferred Language: Lao ED Information & Data Chief Complaint AMS/LOC 12/21/24 01:21 Triage Note unresponsive at [facility] for 12/21/24 01:10 unknown amount of time. vss on arrival. Medical / Surgical History (Last Updated 10/14/24 @ 13:41 by Barby Carter RN) Encephalopathy Seizure Psychiatric symptoms Ambulatory dysfunction Palliative care patient AMS (altered mental status) Rhabdomyolysis Fall ACP (advance care planning) Primary osteoarthritis of left knee Osteoarthritis of right knee Chronic pain syndrome Left elbow contusion Muscle weakness Tendonitis of left rotator cuff Recurrent UTI (urinary tract infection) Hypomagnesemia Primary osteoarthritis, left shoulder Left rotator cuff tear arthropathy Impacted cerumen of both ears Bilateral sensorineural hearing loss Pneumonia Left displaced femoral neck fracture (09/16/20) Fracture of left hip CVA (cerebral vascular accident) Recurrent UTI IBS (irritable bowel syndrome) Urge incontinence Chronic constipation Chronic insomnia (Last Reviewed 08/28/24 @ 21:06 by Bela Goel NP) S/P cervical spinal fusion History of total left hip replacement (09/17/20) History of back surgery Hx of cholecystectomy Most Recent Vital Signs Temperature 35.6 C L 12/21/24 01:35 Temperature Source Tympanic 12/21/24 01:35 Pulse 56 L 12/21/24 05:20 Pulse 56 L 12/21/24 05:20 Respiratory Rate 12 12/21/24 05:20 Respiratory Effort Non-Labored 12/21/24 02:31 Respiratory Depth Deep 12/21/24 02:31 Respiratory Pattern Apnea 12/21/24 02:31 Blood Pressure 137/67 12/21/24 05:16 Blood Pressure Mean 92 12/21/24 05:16 Blood Pressure Position Supine 12/21/24 01:10 Pulse Oximetry 100 12/21/24 05:20 Respiratory End-tidal CO2 48 12/21/24 05:20 Oxygen Delivery Method Room Air 12/21/24 01:35 Oxygen Flow Rate 0 12/21/24 01:10 End Tidal Co2 38 12/21/24 01:35 Pain Level 0 12/21/24 01:35 Allergies sulfamethoxazole (From Bactrim) Allergy (Verified 12/21/24 01:17) Diarrhea trimethoprim (From Bactrim) Allergy (Verified 12/21/24 01:17) Diarrhea morphine Adverse Reaction (Intermediate, Verified 12/21/24 01:17) Psychosis baclofen Adverse Reaction (Unknown, Verified 12/21/24 01:17) Unknown chlorthalidone Adverse Reaction (Unknown, Verified 12/21/24 01:17) Unknown codeine Adverse Reaction (Unknown, Verified 12/21/24 01:17) Unknown dextromethorphan Adverse Reaction (Unknown, Verified 12/21/24 01:17) Unknown gabapentin (From Neurontin) Adverse Reaction (Unknown, Verified 12/21/24 01:17) Unknown hydrochlorothiazide Adverse Reaction (Unknown, Verified 12/21/24 01:17) Unknown pregabalin Adverse Reaction (Unknown, Verified 12/21/24 01:17) Dopey Precautions Isolation Standard precaution 12/21/24 01:17 Active Medications Generic Name Dose Route Start Last Admin Trade Name Freq PRN Reason Stop Dose Admin Ringer's Solution 1,000 mls @ 150 mls/hr 12/21/24 03:45 12/21/24 03:50 IV 150 mls/hr INFUSION MONSE Administration Iohexol 75 ml 12/21/24 02:15 12/21/24 02:03 Omnipaque 350 Mg/Ml 100 Ml Btl IJ 01/20/25 23:59 75 ml DIRECTED MONSE Administration Sodium Chloride 50 ml 12/21/24 02:15 12/21/24 02:02 Normal Saline - Diluent 50 Ml Vial IJ 50 ml .FOR DI USE MONSE Administration IV IV Catheter Type [Right Saline Lock Forearm] IV Catheter Gauge [Right 20 Forearm] Diet Orders Category Date Time Status Regular/Normal [DIET] Nutrition 12/21/24 Breakfast Active Diagnostics 12/21/24 12/21/24 12/21/24 Range/Units 03:23 03:03 02:27 WBC (4.4-10.8) 10^3/uL RBC (3.93-5.22) 10^6/uL Hgb (11.2-15.7) g/dL Hct (36.0-46.0) % MCV (80-95) fL MCH (27.0-33.0) pg MCHC (32.0-36.0) % RDW (11.7-14.6) % Plt Count (130-400) 10^3/uL MPV (8.0-11.0) fL Immature Gran % % Neutrophils % % Lymphocytes % % Monocytes % % Eosinophils % % Basophils % % Nucleated RBC % (0.0-0.3) % Absolute Neutrophils (1.2-6.7) 10^3/uL Absolute Lymphocytes (1.2-3.4) 10^3/uL Absolute Monocytes (0.1-0.8) 10^3/uL Absolute Eosinophils (0.0-0.7) 10^3/uL Absolute Basophils (0.0-0.2) 10^3/uL VBG pH (7.31-7.41) VBG pCO2 (41-51) mmHg VBG pO2 mmHg VBG HCO3 (23-28) mmol/L VBG Total CO2 (24-29) mmol/L VBG O2 Saturation % VBG Base Excess (-2-3) mmol/L VBG Lactate (<or=2.0) mmol/L Sodium (136-145) mmol/L Potassium (3.5-5.1) mmol/L Chloride (98-107) mmol/L Carbon Dioxide (21.0-32.0) mmol/L Anion Gap (3-11) mmol/L BUN (7-18) mg/dL Creatinine (0.55-1.02) mg/dL Est GFR (CKD-EPI 2020) (mL/min/1.73m2) Glucose (74-106) mg/dL Calcium (8.5-10.1) mg/dL Magnesium (1.8-2.4) mg/dL Total Bilirubin (0.2-1.0) mg/dL AST (15-37) U/L ALT (14-59) U/L Alkaline Phosphatase (46-116) U/L Ammonia Cancelled (11-32) umol/L Troponin I 9 (<or=51) ng/L Total Protein (6.4-8.2) g/dL Albumin (3.4-5.0) g/dL TSH (0.36-3.74) uIU/mL Urine Color Yellow (Yellow) Urine Clarity Clear (Clear) Urine pH 6.0 (5-8) Ur Specific Chester 1.020 (1.005-1.025) Urine Protein Negative (Neg-Trace) mg/dL Urine Ketones Negative (Negative) mg/dL Urine Blood Negative (Negative) Urine Nitrite Negative (Negative) Urine Bilirubin Negative (Negative) Urine Urobilinogen 0.2 (Up to 0.2) mg/dL Ur Leukocyte Esterase Negative (Negative) Urine Glucose Negative (Negative) mg/dL Urine Opiates Screen Positive A (Negative) Urine Methadone Screen Negative (Negative) Ur Barbiturates Screen Negative (Negative) Ur Tricyclics Screen Negative (Negative) Ur Amphetamines Screen Negative (Negative) U Benzodiazepines Scrn Negative (Negative) Urine Cocaine Screen Negative (Negative) Ur THC Screen Negative (Negative) Ethyl Alcohol (<10) mg/dL MRSA (TEM-PCR) Negative (Negative) 12/21/24 12/21/24 Range/Units 01:26 01:15 WBC 4.39 L (4.4-10.8) 10^3/uL RBC 3.37 L (3.93-5.22) 10^6/uL Hgb 9.3 L (11.2-15.7) g/dL Hct 28.8 L (36.0-46.0) % MCV 86 (80-95) fL MCH 27.6 (27.0-33.0) pg MCHC 32.3 (32.0-36.0) % RDW 13.9 (11.7-14.6) % Plt Count 229 (130-400) 10^3/uL MPV 9.6 (8.0-11.0) fL Immature Gran % 0.5 % Neutrophils % 69.4 % Lymphocytes % 15.5 % Monocytes % 12.3 % Eosinophils % 1.8 % Basophils % 0.5 % Nucleated RBC % 0.0 (0.0-0.3) % Absolute Neutrophils 3.05 (1.2-6.7) 10^3/uL Absolute Lymphocytes 0.68 L (1.2-3.4) 10^3/uL Absolute Monocytes 0.54 (0.1-0.8) 10^3/uL Absolute Eosinophils 0.08 (0.0-0.7) 10^3/uL Absolute Basophils 0.02 (0.0-0.2) 10^3/uL VBG pH 7.40 (7.31-7.41) VBG pCO2 45 (41-51) mmHg VBG pO2 88 mmHg VBG HCO3 28 (23-28) mmol/L VBG Total CO2 26 (24-29) mmol/L VBG O2 Saturation 98 % VBG Base Excess 3 (-2-3) mmol/L VBG Lactate 1.1 (<or=2.0) mmol/L Sodium 145 (136-145) mmol/L Potassium 3.8 (3.5-5.1) mmol/L Chloride 109 H (98-107) mmol/L Carbon Dioxide 28.0 (21.0-32.0) mmol/L Anion Gap 8.0 (3-11) mmol/L BUN 19 H (7-18) mg/dL Creatinine 0.6 (0.55-1.02) mg/dL Est GFR (CKD-EPI 2020) 92.97 (mL/min/1.73m2) Glucose 112 H (74-106) mg/dL Calcium 8.8 (8.5-10.1) mg/dL Magnesium 1.7 L (1.8-2.4) mg/dL Total Bilirubin 0.2 (0.2-1.0) mg/dL AST 26 (15-37) U/L ALT 25 (14-59) U/L Alkaline Phosphatase 71 (46-116) U/L Ammonia 22 (11-32) umol/L Troponin I 9 (<or=51) ng/L Total Protein 7.6 (6.4-8.2) g/dL Albumin 2.7 L (3.4-5.0) g/dL TSH 0.80 (0.36-3.74) uIU/mL Urine Color (Yellow) Urine Clarity (Clear) Urine pH (5-8) Ur Specific Chester (1.005-1.025) Urine Protein (Neg-Trace) mg/dL Urine Ketones (Negative) mg/dL Urine Blood (Negative) Urine Nitrite (Negative) Urine Bilirubin (Negative) Urine Urobilinogen (Up to 0.2) mg/dL Ur Leukocyte Esterase (Negative) Urine Glucose (Negative) mg/dL Urine Opiates Screen (Negative) Urine Methadone Screen (Negative) Ur Barbiturates Screen (Negative) Ur Tricyclics Screen (Negative) Ur Amphetamines Screen (Negative) U Benzodiazepines Scrn (Negative) Urine Cocaine Screen (Negative) Ur THC Screen (Negative) Ethyl Alcohol < 3.0 (<10) mg/dL MRSA (TEM-PCR) (Negative) 12/21/24 01:25 Blood Culture - Pending Blood 12/21/24 01:23 Blood Culture - Pending Blood Intake and Output - 24 Hour Total 12/21/24 01:06 thru 12/21/24 03:45 Output Total 150 Balance -150 Weight 55 kg Output: Urine 150 Other: Urine Color Yellow Urine Appearance Clear Urinary Catheter Urinary Catheter Date of 12/21/24 Insertion [Urethral (Hawkins)] Time of insertion [Urethral ( 03:45 Hawkins)] Falls Risk Assessment History of Falls Previous History 12/21/24 01:37 Contributing Factors No Factors,Confusion 12/21/24 01:37 Ambulatory Aids Uses ambulatory device 12/21/24 01:37 Tubes/Lines W/no contributing factors 12/21/24 01:37 Gait Evaluation W/no contributing factors 12/21/24 01:37 Cognition Cognitive impairment 12/21/24 01:37 Fall Total Score 68 12/21/24 01:37 Level of Risk High Risk 12/21/24 01:37 Problems (Last Updated 10/14/24 @ 13:41 by Barby Carter RN) Low magnesium level (Acute) Mental status alteration (Acute) UTI (urinary tract infection) (Acute) v v v v v v v v v Sending and/or Receiving Nurses: Please use comment section below to note any information pertinent to the patient hand-off not included above. Information / Comments:no questions Report received from:Rhoda Mcneil RN
--- NOTE | 2024-12-21 08:40 | PDOC.CMIN ---
Date of service: 12/21/24 Time of Service: 08:41 Care Management Initial Assmt Initial Assessment Reason for Hospitalization: AMS Functional Status/Living Situation Patient Presentation: Song was lying in bed when CM met with her. She had her eyes closed but opened them when spoken to. When asked how she was feeling, Song stated she was cold. CM gave her 2 warm blankets which she appreciated. Further attempts at conversation were unsuccessful. song was admitted from [facility] with AMS. She may have had a seizure which could account for her symptom. When Song was hers a few days ago. CM spoke with the staff at her SNF and learned that she has a long psychiatric history which at times includes hallucinations, confusion and verbally aggressive behavior. At other times she does not speak. She has difficulty with ambulation and requires total assistance with care. Song has identified a daughter Renetta Corrigan as her HCA with her son Amor Corrigan as the alternate. Song's code status is DNR/DNI. Town of Residence: [facility] Resides with: Other (SNF) Employment Status: Retired Instrumental Activities of Daily Living (ADLs): Requires support Medications Medication Management: No Issues/Barriers identified Physical Functioning/Mobility Assistive Device: wheelchair walker Advance Directives Advance Directives: Do you have an Advance Directive: Y 11/06/12, 18:01 AD On File at [facility]: Y 09/16/20, 21:57 Date Asked 08/26/24 08/26/24, 14:48 AD Date Reviewed 12/17/24 12/17/24, 15:05 COLST On File at [facility] Yes 08/19/24, 09:20 COLST Date Scanned 05/06/24 08/19/24, 09:20 Code Status Resuscitation Status DNR/DNI Portal Pt does not currently have a portal and education provided: Yes Insurance Coverage/Financial Issues Insurance: Medicare Medicaid Care Team Visit Care Team Role Provider Type Mary Anne Stanton NP NURSE PRACTITIONER Marixa Kurtz Primary Care Provider NON-[facility] STAFF PHYSICIAN Ruchi Estrada MD Emergency Provider [facility] STAFF PHYSICIAN Charbel Key MD Admit Provider [facility] STAFF PHYSICIAN Attending Provider Discharge Anticipated Barriers to Discharge: None Identified Patient/Family Education Needs: Review discharge instructions, discuss Ask Me Three Transportation: RCT Plan: Anticipate Song will return to [facility] when medically cleared. She will follow up with the facility providers and plan of care and transport via RCT coordinated by CM. CM will follow and continue to support discharge needs. Social Determinants of Health Screening Will the Patient Participate in the Screening?: Unable to obtain PFSH All Active Problems (Updated 12/21/24 @ 05:31 by Ruchi Estrada MD) Sharifa coma scale score 3-8, at arrival to emergency department (Acute) Altered mental status (Acute) Encephalopathy (Acute) Low magnesium level (Acute) Mental status alteration (Acute) UTI (urinary tract infection) (Acute) Acute UTI (Acute) Altered mental status (Acute) Failure to thrive in adult (Acute) Weakness (Acute) Falls frequently (Acute) Trouble talking (Acute) Acute UTI (Acute) Acute kidney injury superimposed on CKD (Acute) Lives in fpc (Acute) Deficit in activities of daily living (ADL) (Acute) Closed fracture of distal end of radius (Acute) Closed fracture of left distal radius (Acute) Closed fracture of right distal radius (Acute) Heart murmur (Acute) Depression (Chronic) At high risk for skin breakdown (Acute) Periorbital edema (Acute) Hiatal hernia (Chronic) moderate Coronary artery calcification seen on CAT scan (Acute) Diverticula of colon (Acute) DJD (degenerative joint disease), lumbar (Acute) History of CVA (cerebrovascular accident) (Acute) remote Fracture of both wrists (Acute) Goiter (Acute) Fibromyalgia (Chronic) KWAME (obstructive sleep apnea) (Chronic) Chronic pain (Chronic) Movement disorder (Acute) Chronic renal insufficiency, stage III (moderate) (Acute) Anemia (Chronic) Hypertension (Chronic) Medical History (Updated 12/21/24 @ 05:31 by Ruchi Estrada MD) Encephalopathy Seizure Psychiatric symptoms Ambulatory dysfunction Palliative care patient AMS (altered mental status) Rhabdomyolysis Fall ACP (advance care planning) Primary osteoarthritis of left knee We will see the patient back in 4-1/2 months for possible repeat Synvisc 1 in her left knee would consider x-ray in her right knee if she is still significantly symptomatic Osteoarthritis of right knee Steroid injection: 04/05/2020 Has had previous viscosupplementation injections. 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) As treatment for a femoral neck fracture (DOI: 09/16/2020) History of back surgery Hx of cholecystectomy Social History Smoking/Tobacco Use Status: Never Smoking risk assessment performed?: Yes Alcohol Intake: never Drug use: Never Substance use type: does not use Housing: assisted living facility Do you feel safe at home: Yes Do you feel safe in your relationship?: Yes Additional Social history: health and rehab
--- NOTE | 2024-12-21 11:45 | PHA.REVIEW2 ---
Pharmacy Admission Review Admission Clinical Review Admission Pharmacy Review: Low magnesium level (Acute) Mental status alteration (Acute) UTI (urinary tract infection) (Acute) sulfamethoxazole (From Bactrim) Allergy (Verified 12/21/24 01:17) Diarrhea trimethoprim (From Bactrim) Allergy (Verified 12/21/24 01:17) Diarrhea morphine Adverse Reaction (Intermediate, Verified 12/21/24 01:17) Psychosis baclofen Adverse Reaction (Unknown, Verified 12/21/24 01:17) Unknown chlorthalidone Adverse Reaction (Unknown, Verified 12/21/24 01:17) Unknown codeine Adverse Reaction (Unknown, Verified 12/21/24 01:17) Unknown dextromethorphan Adverse Reaction (Unknown, Verified 12/21/24 01:17) Unknown gabapentin (From Neurontin) Adverse Reaction (Unknown, Verified 12/21/24 01:17) Unknown hydrochlorothiazide Adverse Reaction (Unknown, Verified 12/21/24 01:17) Unknown pregabalin Adverse Reaction (Unknown, Verified 12/21/24 01:17) Dopey Resuscitation Status DNR/DNI Height 5 ft 5 in Weight 54.2 kg Comments Comments/Follow Ups: Follow up on missing home meds (see home med section above) Pharmacy Admission Review Renal Dosing Renal Dosing: BUN 19 mg/dL (7-18) H 12/21/24 01:15 Creatinine 0.6 mg/dL (0.55-1.02) 12/21/24 01:15 Medications needing adjustments: Reviewed (CrCl 40.89 mL/min) List of meds needing interventions: Current medications are okay Anticoagulation Anticoagulation: Hgb 9.3 g/dL (11.2-15.7) L 12/21/24 01:15 Hct 28.8 % (36.0-46.0) L 12/21/24 01:15 Plt Count 229 10^3/uL (130-400) 12/21/24 01:15 Creatinine 0.6 mg/dL (0.55-1.02) 12/21/24 01:15 DVT Prophylaxis: Reviewed Medications: Enoxaparin (40mg daily) Relevant Labs Relevant Labs: Sodium 145 mmol/L (136-145) 12/21/24 01:15 Potassium 3.8 mmol/L (3.5-5.1) 12/21/24 01:15 Chloride 109 mmol/L (98-107) H 12/21/24 01:15 Magnesium 1.7 mg/dL (1.8-2.4) L 12/21/24 01:15 Electrolytes, C-Reactive P, ESR: Reviewed Cardiac Review Cardiac Review: Troponin I 9 ng/L (<or=51) 12/21/24 02:27 Blood Pressure : Heart Rate 137/64 : 52 0737 Blood Pressure : Heart Rate 150/75 : 48 0550 Blood Pressure : Heart Rate 132/55 : 56 0537 Blood Pressure : Heart Rate 137/67 : 56 0516 Blood Pressure : Heart Rate 166/87 : 58 0501 BP, HR, EF%: Reviewed (oxygen flow rate = 2) List meds needing interventions: Has order for amlodipine 10mg daily QTc Review QTc: Reviewed (464 from 12/21/24) IV to PO Switch IV Medications: Reviewed Home Meds Home Med List reviewed: Intervened Relevent Home Meds Not ordered & why?: multivitamin, oxycodone and risperidone Asked provider about oxycodone and risperidone, they are looking into it. Waiting to hear back Changed Macrobid to Macrodantin on home med list based on fill history and changed order - provider aware Current Meds Current Medication Order Review: Intervened Comments: Added IV admission order set Patient had 2 orders for acetaminophen - QID scheduled and q4h PRN. Asked provider if they really wanted both. Provider asked that the scheduled order be discontinued. Pharmacy Antibiotic Review Relevant Labs: WBC 4.39 10^3/uL (4.4-10.8) L 12/21/24 01:15 Temperature 36.0 C Temperature 36.0 C Temperature 36.0 C Temperature 35.6 C Temperature 35.8 C Pharmacy Antibiotic Activity: C/S review and Reviewed, no change Comments: Patient is on cefpodoxime PO, day 1, for UTI. Blood cultures pending. Was recently discharged on 12/19 (UTI diagnosed during that admission). Patient currently not alert or awake per nurse during morning meeting - did not receive morning meds (provider aware). Comments Comments/Follow Ups: Follow up on missing home meds (see home med section above)
[2024-12-21] MEDS: Acetaminophen 325 MG TAB 650 MG PO ×2 (18:17→21:20)
[2024-12-21] MEDS: Protein Nutritional Supplement 16 GM 1 OUNCE PACKET PO (20:34)
[2024-12-21] MEDS: Senna TAB 1 TAB PO (20:34)
[2024-12-21] MEDS: Mirtazapine 15 MG TAB PO (20:35)
[2024-12-21] MEDS: Cefpodoxime 200 MG TAB PO (20:35)
[2024-12-21] MEDS: Melatonin 3 MG TAB 9 MG PO (20:35)
[2024-12-21] MEDS: Atorvastatin 20 MG TAB PO (20:36)
[2024-12-21] MEDS: levETIRAcetam 500 MG TAB PO (20:37)
--- NOTE | 2024-12-22 | DI.MRI_ITS ---
Exam(s) MR BRAIN WO EXAM: MR BRAIN WO CLINICAL HISTORY: mental status change TECHNIQUE: Multiplanar multisequence MRI of the brain was performed. COMPARISON: MR MR BRAIN WO from 08/21/2024 CT brain performed 12/21/2024 also reviewed. FINDINGS: CEREBRAL PARENCHYMA: There is no evidence of intracranial hemorrhage, mass effect, or shift of midline structures. There are no extra-axial fluid collections. Ventricles are not enlarged or shifted. There is no significant new focal signal abnormality in the cerebellar hemispheres nor within the david, midbrain, and thalami. Unchanged small lack uns in the left cerebellar hemisphere are unchanged from prior study. No acute new cerebellar findings. Again noted is unchanged lacunar infarct in the posterior aspect of the right thalamus and there is also again noted prominent bilateral confluent periventricular signal abnormality consistent with chronic small vessel disease but without evidence of restricted diffusion to suggest acute ischemic event in the brain. Also again noted is evidence of prior right occipital lobe infarct. This area again exhibits gyral T1 hyperintensity and some susceptibility artifact which is unchanged and most probably related to laminar necrosis/gyral petechial hemorrhage/combination of both. There is, however, no acute blood/hemorrhage evident on today's study. Some PITUITARY GLAND: No mass nor parasellar abnormality. No obvious abnormality in the cavernous sinuses. FLOW VOIDS: The expected flow void are noted. No evidence of obvious aneurysm nor obvious vascular malformation. PARANASAL SINUSES: There is a small fluid level in the right maxillary sinus which was not previously present on the MRI of August 2024 and is consistent with sinusitis. There is no prominent mucosal thickening nor retention cysts. Other paranasal sinuses are clear and there are no mastoid effusions. ORBITS: No obvious findings. IMPRESSION: No significant acute intracranial findings on this noninfused MRI scan of the brain. Again noted is abundant bilateral periventricular signal abnormality consistent with chronic small vessel disease but no evidence of restricted diffusion to suggest acute ischemic event. Nonacute appearing right occipital infarct again noted which again exhibits some gyral T1 hyperintensity and susceptibility artifact, unchanged from the prior MRI of 08/21/2024. DATA REPOSITORY:
[2024-12-22] MEDS: Lactated Ringers 1,000 ML 150 ML IV ×3 (03:13→21:59)
[2024-12-22 04:32] VITALS: BP 188/67; PULSE 57; RESP 19; TEMP 36.9; O2SAT 95
[2024-12-22] MEDS: Ondansetron O.D.T. 4 MG TABEF PO ×2 (04:36→19:32)
[2024-12-22] MEDS: Acetaminophen 325 MG TAB 650 MG PO ×2 (07:01→20:17)
[2024-12-22] MEDS: Vitamins B Comp w/C TAB 1 TAB PO (08:21)
[2024-12-22] MEDS: Aspirin E.C. 81 MG TABEC PO (08:21)
[2024-12-22] MEDS: levETIRAcetam 500 MG TAB PO ×2 (08:21→20:18)
[2024-12-22] MEDS: amLODIPine 10 MG TAB PO (08:22)
[2024-12-22] MEDS: Omeprazole 20 MG CAPCR 40 MG PO (08:22)
[2024-12-22] MEDS: Protein Nutritional Supplement 16 GM 1 OUNCE PACKET PO ×3 (08:23→20:19)
[2024-12-22] MEDS: Cefpodoxime 200 MG TAB PO ×2 (08:38→20:18)
--- NOTE | 2024-12-22 09:27 | PGE_ITS ---
Date of Service Date of service: 12/22/24 Time of Service: 09:27 Assessment and Plan Assessment and plan (1) Seizure: Assessment and plan: levetiracetam 20 on 12/18/24 level- most likely not s/p e seizure did not look p ostictal. Ongoing home dose Keppra (2) UTI (urinary tract infection): Status: Acute Assessment and plan: Completing cefpodoxime treatment until 12/24 ordered recently from Strep gallolyticus ( s. bovis) UA negative in the ED (3) Mental status alteration: Status: Acute Assessment and plan: Unknown etiology , appears dehydrated on admission-AMS clinically similar to previous admission when she was treated for dehydration Ongoing IV hydration Ongoing indwelling catheter for close urine output monitoring Ammonia level normal and no liver dysfunction as per labs - low protein level -enteral protein ordered -On chronic opioids - reduced dose from 40 mg BID to 10 mg BID with scheduled acetaminophen at the SNF - w/o s & s of impairment during her last admission. On admission CT head: multiple non-hemorrhagic lacunar infarcts, old infarct in the right occipital lobe unchanged MRI brain :No significant findings Now alert and oriented X4 w/o neurological deficit (4) Low magnesium level: Status: Acute Assessment and plan: IV replacement then trend (5) Abnormal finding on CT scan: Status: Acute Assessment and plan: -Outpatient f/u for findings of moderately enlarged thyroid lobes with multiple cysts and nodules. This can be further investigated with ultrasound of the thyroid gland. -Outpatient f/u recommendation for MRI already issued on last discharge for finding of a 1.5 x 1.5 cm cystic mass pancreatic head. (6) Cystic mass of pancreas: Status: Acute Assessment and plan: 1.7 x 1.4 cm area of abnormal enhancement in the posterior right side of the urinary bladder. This is suspicious for bladder neoplasm. Cystoscopy is recommended. -Urology consult (7) Chronic back pain: Status: Acute Assessment and plan: On chronic dosing of oral opioids ongoing dosing adjustment. In the setting of negative findings on MRI, will restart a lower dose if scheduled acetaminophen is not effective. Will give on dose of ibuprofen (8) On deep vein thrombosis (DVT) prophylaxis: Status: Acute Assessment and plan: On LMWH discussed with Dr. Mckoy Subjective Subjective Patient reports: still having pain (chronic back pain), tolerating liquids well, voiding w/o difficulty (levi) and other (refusing blood work and also stated no when discussed the possibility of needing a cystoscopy); denies nausea, vomiting, shortness of breath or fever Exam Narrative Exam Narrative: patient in bed in no acute distress, alert to self, place time and situation, no focal neurological deficit,clear lungs with decreased bilateral bases, S1, S2, no murmur, abdomen is not distended , soft, nontender, Psych Mental Status: mental status grossly normal Speech and Movement: speech and movement normal Mood: congruent mood Affect: normal affect Objective Last Vital Signs Temp 36.9 C 12/22/24 04:32 Pulse 57 L 12/22/24 04:32 Resp 19 12/22/24 04:32 BP 188/67 H 12/22/24 04:32 Pulse Ox 95 12/22/24 04:32 Time Spent with Patient Time Spent with Patient: >50 minutes Time was spent: preparing to see the patient(eg.review tests), obtaining and/or reviewing separately otained hiistory, ordering medications,tests, procedures, referring, communicating with other health care transition mgr, indepentently interpreting results, counseling the patient and care coordination
[2024-12-22] MEDS: MAGNESIUM SULFATE 2 GM/50 ML BAG IV_INF (12:07)
[2024-12-22] MEDS: Normal Saline Flush 10 ML SYR IVP (12:07)
[2024-12-22 15:22] VITALS: BP 145/83; PULSE 73; RESP 16; TEMP 37.4; O2SAT 96
--- NOTE | 2024-12-22 16:21 | PDOC.CMPRO ---
Date of service: 12/22/24 Time of Service: 16:21 Care Management Progress Note Progress Note Text Progress Note Text: Tegan was sitting up in bed, eating lunch, when CM met with her today. She denied any complaints, but was not interested in conversation today. Discharge Potential Discharge Needs: Other (Return to [facility] for [facility] and f/u with their provider) Anticipated Barriers to Discharge: None Identified Patient/Family Education Needs: Review discharge instructions, discuss Ask Me Three Transportation: RCT RCT Transportation: Wheel chair van Plan: Anticipate Tegan will return to [facility] when medically cleared. She will follow up with the facility providers and plan of care and transport via RCT coordinated by CM. CM will follow and continue to support discharge needs. Social Determinants of Health Screening Will the Patient Participate in the Screening?: Unable to obtain
[2024-12-22] MEDS: Ibuprofen 400 MG TAB PO (16:49)
[2024-12-22 19:56] VITALS: BP 146/74; PULSE 75; RESP 20; TEMP 37.3; O2SAT 95
[2024-12-22] MEDS: Melatonin 3 MG TAB 9 MG PO (20:17)
[2024-12-22] MEDS: Mirtazapine 15 MG TAB PO (20:18)
[2024-12-22] MEDS: Atorvastatin 20 MG TAB PO (20:18)
[2024-12-22] MEDS: Senna TAB 1 TAB PO (20:18)
[2024-12-23 03:43] VITALS: BP 146/70; PULSE 68; RESP 20; TEMP 36.9; O2SAT 96
[2024-12-23] MEDS: Lactated Ringers 1,000 ML 150 ML IV (05:19)
--- NOTE | 2024-12-23 07:18 | UCONE_ITS ---
Date of service: 12/22/24 Time of Service: 16:15 Assessment and Plan Assessment and plan (1) Bladder mass: Status: Acute Assessment and plan: We discussed doing a cystoscopy to evaluate her bladder mass (found on CT scan). It is interesting that she has no gross hematuria and rarely has microscopic hematuria except for when she has a symptomatic urinary tract infection. We could either do a flexible cystoscopy with the patient awake or do a cystoscopy in the operating room with the patient under anesthesia. I would prefer for her to wait until her catheter has been removed and any mucosal changes associated with catheter cystitis have cleared before we commit to the cystoscopy. Her catheter is planned to be removed tomorrow. I have no objection to her being discharged from the hospital and I will follow-up with her in a week or 2 to see if she is agreeable to a cystoscopy. History of Present Illness History of Present Illness Chief Complaint: Bladder mass Narrative: This is a 74-year-old woman who has a history of recurrent urinary tract infections. She was last seen in our office over 3 years ago. She has had recurrent hospital admissions for mental status changes. During her most recent admission, a urinary tract infection was identified. It is also felt the dehydration causes a significant percentage of her symptoms. During her emergency department visit from this admission, a CT scan of the abdomen and pelvis was obtained. A mass was seen within the bladder on imaging studies. Patient is not aware of any previously identified mass. She does not routinely see blood in her urine. In fact, he rarely shows microscopic hematuria unless he has a symptomatic infection. She has no previous history of bladder surgery. [facility] All Active Problems (Updated 12/23/24 @ 11:03 by Enid Bonner APRN) Bladder mass (Acute) Chronic back pain (Acute) Cystic mass of pancreas (Acute) Abnormal finding on CT scan (Acute) On deep vein thrombosis (DVT) prophylaxis (Acute) Sharifa coma scale score 3-8, at arrival to emergency department (Acute) Altered mental status (Acute) Encephalopathy (Acute) Low magnesium level (Acute) Mental status alteration (Acute) UTI (urinary tract infection) (Acute) Acute UTI (Acute) Altered mental status (Acute) Failure to thrive in adult (Acute) Weakness (Acute) Falls frequently (Acute) Trouble talking (Acute) Acute UTI (Acute) Acute kidney injury superimposed on CKD (Acute) Lives in senior living (Acute) Deficit in activities of daily living (ADL) (Acute) Closed fracture of distal end of radius (Acute) Closed fracture of left distal radius (Acute) Closed fracture of right distal radius (Acute) Heart murmur (Acute) Depression (Chronic) At high risk for skin breakdown (Acute) Periorbital edema (Acute) Hiatal hernia (Chronic) moderate Coronary artery calcification seen on CAT scan (Acute) Diverticula of colon (Acute) DJD (degenerative joint disease), lumbar (Acute) History of CVA (cerebrovascular accident) (Acute) remote Fracture of both wrists (Acute) Goiter (Acute) Fibromyalgia (Chronic) KWAME (obstructive sleep apnea) (Chronic) Chronic pain (Chronic) Movement disorder (Acute) Chronic renal insufficiency, stage III (moderate) (Acute) Anemia (Chronic) Hypertension (Chronic) Medical History (Updated 12/23/24 @ 11:03 by Enid Bonner APRN) Encephalopathy Seizure Psychiatric symptoms Ambulatory dysfunction Palliative care patient AMS (altered mental status) Rhabdomyolysis Fall ACP (advance care planning) Primary osteoarthritis of left knee We will see the patient back in 4-1/2 months for possible repeat Synvisc 1 in her left knee would consider x-ray in her right knee if she is still significantly symptomatic Osteoarthritis of right knee Steroid injection: 04/05/2020 Has had previous viscosupplementation injections. 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) As treatment for a femoral neck fracture (DOI: 09/16/2020) History of back surgery Hx of cholecystectomy Social History Smoking/Tobacco Use Status: Never Smoking risk assessment performed?: Yes Alcohol Intake: never Drug use: Never Substance use type: does not use Housing: assisted living facility Do you feel safe at home: Yes Do you feel safe in your relationship?: Yes Additional Social history: health and rehab Exam Narrative Exam Narrative: She is an older woman who appears chronically ill rather than acutely ill Her vital signs are documented elsewhere Her abdomen is soft with no masses palpable. She has no peritoneal signs There is a Hawkins catheter in place that is draining clear urine She is awake and alert at this time Results Last Vital Signs Temp 36.9 C 12/23/24 03:43 Pulse 68 12/23/24 03:43 Resp 20 12/23/24 03:43 BP 146/70 H 12/23/24 03:43 Pulse Ox 96 12/23/24 03:43 Labs 12/21/24 01:15 12/21/24 01:15
[2024-12-23 07:30] VITALS: BP 160/81; PULSE 71; RESP 17; TEMP 36.7; O2SAT 98
[2024-12-23] MEDS: Cefpodoxime 200 MG TAB PO (07:51)
[2024-12-23] MEDS: Omeprazole 20 MG CAPCR 40 MG PO (07:51)
[2024-12-23] MEDS: Aspirin E.C. 81 MG TABEC PO (07:51)
[2024-12-23] MEDS: Vitamins B Comp w/C TAB 1 TAB PO (07:52)
[2024-12-23] MEDS: Acetaminophen 325 MG TAB 650 MG PO ×2 (07:52→12:15)
[2024-12-23] MEDS: levETIRAcetam 500 MG TAB PO (07:52)
[2024-12-23] MEDS: amLODIPine 10 MG TAB PO (07:52)
--- NOTE | 2024-12-23 08:30 | IN_ITS ---
PT Notes Visit Reasons: mental status change Physical Therapy Inpatient Initial Evaluation Date: 12/23/2024 Referring Doctor: Enid Bonner NP PT Orders: PT CONSULT: Eval/Treat Precautions: Falls. Standard. Impaired safety awareness. Activity as tolerated. Seizure precautions in place. Patient Profile/Admitting Diagnosis: Patient is a 74-year-old female recently admitted to this hopsital last week who came back for management of suspected seizure, UTI, mental status alteration, and hypomagnesemia. PMHX: All Active Problems (Updated 12/21/24 @ 03:36 by Charbel Key MD) Low magnesium level (Acute) Mental status alteration (Acute) UTI (urinary tract infection) (Acute) Acute UTI (Acute) Altered mental status (Acute) Failure to thrive in adult (Acute) Weakness (Acute) Falls frequently (Acute) Trouble talking (Acute) Acute UTI (Acute) Acute kidney injury superimposed on CKD (Acute) Lives in alf (Acute) Deficit in activities of daily living (ADL) (Acute) Closed fracture of distal end of radius (Acute) Closed fracture of left distal radius (Acute) Closed fracture of right distal radius (Acute) Heart murmur (Acute) Depression (Chronic) At high risk for skin breakdown (Acute) Periorbital edema (Acute) Hiatal hernia (Chronic) moderate Coronary artery calcification seen on CAT scan (Acute) Diverticula of colon (Acute) DJD (degenerative joint disease), lumbar (Acute) History of CVA (cerebrovascular accident) (Acute) remote Fracture of both wrists (Acute) Goiter (Acute) Fibromyalgia (Chronic) KWAME (obstructive sleep apnea) (Chronic) Chronic pain (Chronic) Movement disorder (Acute) Chronic renal insufficiency, stage III (moderate) (Acute) Anemia (Chronic) Hypertension (Chronic) Medical History (Updated 12/21/24 @ 03:36 by Charbel Key MD) Encephalopathy Seizure Psychiatric symptoms Ambulatory dysfunction Palliative care patient AMS (altered mental status) Rhabdomyolysis Fall ACP (advance care planning) Primary osteoarthritis of left knee We will see the patient back in 4-1/2 months for possible repeat Synvisc 1 in her left knee would consider x-ray in her right knee if she is still significantly symptomatic Osteoarthritis of right knee Steroid injection: 04/05/2020 Has had previous viscosupplementation injections. 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) As treatment for a femoral neck fracture (DOI: 09/16/2020) History of back surgery Hx of cholecystectomy Social History/Home Situation: Has been a SNF resident receiving assistance with mobility ADLs. Equipment Owned/DME: [facility] Subjective: Smiled when patient saw this provider. Apologetic that she had to come back to the hospital. Agreeable to consult. Wanted the phone so she could call her daughter. Objective: General Observation: Mental Status: Oriented only as to person. Able to follow single-step commands. Pain: Minimal generalized pain Vital Signs: Closely monitored by nursing staff ROM: Right Upper Extremity: Shoulder Flexion allows up to 90 degrees. Shoulder abduction allows up to about 60 degrees. Elbow flexion WFL. Wrist flexion WFL. Functional opening and closing of hand WFL. Left Upper Extremity: Shoulder Flexion allows up to 90 degrees. Shoulder abduction allows up to about 60 degrees. Elbow flexion WFL. Wrist flexion WFL. Functional opening and closing of hand WFL. Right Lower Extremity: Hip flexion allows up to 90 degrees. Hip abduction WFL. Knee flexion 20 degrees to 90 degrees. Knee extension -20 degrees. Ankle dorsiflexion to neutral only. Ankle plantarflexion WFL. Left Lower Extremity: Hip flexion allows up to 90 degrees. Hip abduction WFL. Knee flexion 20 degrees to 90 degrees. Knee extension -20 degrees. Ankle dorsiflexion to neutral only. Ankle plantarflexion WFL. Strength: Right Upper Extremity: Shoulder flexors 3-/5. Shoulder abductors 3-/5. Elbow flexors 4-/5. Elbow extensors 4-/5. Correctional Lieutenant weak but functional. Left Upper Extremity: Shoulder flexors 3-/5. Shoulder abductors 3-/5. Elbow flexors 4-/5. Elbow extensors 4-/5. Correctional Lieutenant weak but functional. Right Lower Extremity: Hip flexors 3-/5. Hip abductors 3-/5. Knee flexors 3-/5. Knee extensors 3-/5. Ankle dorsiflexors 3-/5. Ankle plantarflexors 4-/5. Left Lower Extremity: Hip flexors 3-/5. Hip abductors 3-/5. Knee flexors 3-/5. Knee extensors 3-/5. Ankle dorsiflexors 3-/5. Ankle plantarflexors 4-/5. Sensation: Intact as to pain and light pressure in B UE/LE Bed Mobility/Transfers: Moderate cueing provided for use of B hands as needed for support, movement sequence, AD management, and posture to reduce fall risk and minimize pain report Supine to sit minimal assist with HOB at 45 degrees Sit to stand contact guard assist with FWW Stand to sit contact guard assist with FWW Bed to bedside contact guard assist with FWW Gait: 10-12 small steps using front-wheeled walker from edge of bed to bedside chair with contact assist and moderate verbal cueing for safe technique for turning, backing up, and AD management. Step height and length decreased. Moderate cueing provided to back up onto chair to safely go down. Stairs: Deferred Balance: Static Sitting: Good Dynamic Sitting: Good Static Standing: Fair Dynamic Standing: fair Special Tests: Mobility Limitations Standardized Measure [facility]-PAC 6 clicks Basic Mobility Inpatient Short Form: Raw Score: 18 CMS Score: 47% Informed Consent/Education: Patient was instructed in purpose of PT consult and plan of care. Assessment: Patient required the assistance of 1 person/contact guard assist for all mobility ADL performance using the front-wheeled walker with moderate verbal cueing for AD management, limb movement sequence and posture. Patient is a 74-year-old female referred to physical therapy services with the diagnosis of UTI/altered mental status. Patient presents with clinical signs and symptoms consistent with admitting diagnosis, as demonstrated by the follo wing impairment level findings: 1. Decreased strength to B UE/LE major muscle groups 2. Impaired sitting and standing balance 3. Impaired activity tolerance 4. Limitations of range of motion in B shoulders, wrists and hips 5. Depressed, apathetic and lacks motivation Impairments are contributing to the following functional limitations: 1. Failure to thrive at home alone 2. Declining bed mobility skills 3. Declining transfer skills 4. Difficulty with ambulation without assistive device and physical assistance 5. Increased time to complete ADL/mobility tasks 6. Increased risk for falls Patient is assessed as a moderate [id number] complexity based on the following: History: 74-year-old female with past medical history as stated above Examination: Demonstrates impairments in strength, balance, mobility level with underlying impairments and functional limitations as stated above Presentation: Evolving Decision Makin moderate complexity Goals: Goals X1 week 1. Supine-Sit supervision 2. Sit-Supine supervision 3. Sit-Stand supervision 4. Stand-Sit supervision 5. Bed-Chair supervision 6. Chair-Bed supervision 7. Contact guard assist with gait on level surface with FWW for at least 300 feet without report of pain nor dyspnea 8. Fair static and dynamic standing balance/tolerance Plan of Care/Treatment Plan: 1-2x/day, 7 days/week x 1 week. Plan of care has been reviewed with the [employer] EM[employer] ASSOCIATE providing the service under Physical Therapy direction. Initiate Physical Therapy intervention for strengthening, bed mobility, transfers, gait, stairs, balance training, use of assistive device. DISCHARGE RECOMMENDATIONS: [] Home with no services [] [] Home with services [specify] [] Home with outpatient PT [] [] SNF for continued rehabilitation [] [] [facility] [] [X] Return to SNF when medically cleared. TREATMENT CODE/TIME: 92872 x 20 minutes for 1 unit, 11193 x 12 minutes for 1 unit (08:30?09:02). Thank you for the opportunity to participate in the care of this patient. Mikayla Jacobson PT, DPT, CLT [facility] [place], [place]
--- NOTE | 2024-12-23 08:50 | W.PM.DS.N ---
Date of service: 12/23/24 Time of Service: 08:53 DS: Diagnosis Discharge Diagnosis (1) Bladder mass: Status: Acute Discharge Plan Disposition Patient Disposition: [facility] Facility(SNF) Condition: Serious Condition: Improving Discharge Details Reason For Visit: mental status change Admit Date/Time: 12/21/24 04:20 Admit Provider: Charbel Key Attending Provider: Charbel Key Primary Care Provider: Marixa Kurtz Hospital Course Hospital Course: This 74-year-old female living at local SNF and with past medical history of Dx of seizure disorder, osteoarthritis, recurrent UTIs with Hx of Macrobid prophylactic dosing, chronic renal insufficiency, hypertension, depression,chronic pain on opioids,CVA, CKD, chronic debility presented to the Ed on 12/19/24 for evaluation of altered mental status and unresponsiveness starting during the day 12/21/24. She was recently discharged from [facility] on 12/19/24 s/p admission for UTI and dehydration with oral antibiotics. Patient's workup included EKG lab work CT head CT chest and were negative for actionable findings except an elevated BUN /creat ratio.Abdominal CT finding Levetiracetam level was pending. The patient was admitted by the hospitalist to the medical surgical floor while awaiting MRI availability for completion stroke work-up, and IVF for dehydration. MRI was negative for acute findings.An urology consultation with Dr. Solorzano was completed d/t CT findings of bladder mass with recommendation for follow-up with her in a week or 2; referral completed. Chronic narcotic medicine dose was held and resumed at a lower dose to be adjusted as per outpatient provider upon discharge. The Keppra level was therapeutic at 20. The patient returned to baseline and remained hemodynamically stable, tolerating enteral intake and will be discharged to her SNF with recommendation for ongoing physical therapy. Recommendation for outpatient provider follow-up: Urology referral scheduled 1-2 weeks, please follow-up MRI pancreatic protocol recommended as per CT from 08/2024-cyst in the head of the pancreas measuring 1.5 by 1.5 cm. Thyroid lobes are moderately enlarged with cysts and nodules in both lobes- Needs a thyroid US. Surgical consult for recommendation for EGD-as per CT significant hiatal hernia which measures 5.5 cm wide by 3.5 cm craniocaudal. Colorectal neoplasm work-up if indicated based on finding of strep. Gallolyticus in urine if patient wishes Discussed with Dr. Stiles Gray Meds and New Rx's Prescriptions: New oxycodone [OxyContin] 10 mg Tablet,Oral Only,Ext.Rel.12 Hr 5 mg PO BID Qty: 6 0RF cefpodoxime 200 mg Tablet 200 mg PO BID Qty: 2 0RF Continued aspirin 81 mg tablet,delayed release (DR/EC) 81 mg PO DAILY omeprazole 40 MG capsule,delayed release(DR/EC) 40 mg PO DAILY vitamin B complex Tablet 1 tab PO DAILY acetaminophen 325 mg Tablet 650 mg PO QID Qty: 30 0RF melatonin 3 mg Tablet 9 mg PO HS Qty: 15 0RF mirtazapine 15 mg Tablet 15 mg PO HS Qty: 30 0RF Phlexy-Vits 15 mg- 700 mcg Powder In Packet 1 packet PO TID Qty: 30 0RF sennosides [senna] 8.6 mg tablet 8.6 mg PO QPM amlodipine 10 mg tablet 10 mg PO DAILY naloxone 4 mg/actuation spray,non-aerosol 4 mg INTRANASAL ONCE PRN Patient Comments: ADMINISTER 1 SPRAY INTO ONE NOSTRIL A SINGLE DOSE NEEDED FOR EXCESSIVE SEDATION ondansetron HCl 4 mg tablet 4 mg PO BID PRN (Reason: nausea and vomiting) Patient Comments: TAKE ONE TABLET BY MOUTH TWICE A DAY BEFORE MEALS FOR NAUSEA risperidone 1 mg tablet 1 mg PO .Bedtime Patient Comments: TAKE ONE TABLET BY MOUTH AT BEDTIME levetiracetam 500 mg Tablet 500 mg PO BID Qty: 60 0RF atorvastatin 20 mg Tablet 20 mg PO QPM Qty: 30 0RF nitrofurantoin macrocrystal 100 mg capsule 100 mg PO DAILY Discontinued oxycodone [OxyContin] 10 mg Tablet,Oral Only,Ext.Rel.12 Hr 10 mg PO BID Qty: 10 0RF cefpodoxime 200 mg tablet 200 mg PO Q12H Qty: 6 0RF Rx Instructions: must administer with a meal/food oxycodone [OxyContin] 40 mg tablet,oral only,ext.rel.12 hr 40 mg PO BID Discharge Instructions Stand Alone Forms: Nursing Discharge Form Referrals: Marixa Kurtz [Primary Care Provider, Medicine] - 01/02/25 2:15 pm Vishnu Solorzano MD [ [facility] STAFF PHYSICIAN, Urology] Referral Note: Referral for bladder mass within 1-2 weeks, please. Activity:: Activity as Tolerated Equipment/Supplies:: Walker Diet:: Heart healthy SOLIDS: L6 Soft & Bite Sized LIQUIDS: L2 Mildly Thi Discharge Orders Discharge Orders: Discharge Order (Routine); Ordered 12/23/24 Ordered By: Enid Bonner DS: Summary Time Spent with Patient providing and/or coordinating discharge services: Greater than 30 minutes Status at Discharge Functional status at discharge: uses cane/walker Overall status at discharge: patient is not back to baseline Mental Status: mental status grossly normal Speech and Movement: speech and movement normal Mood: congruent mood Affect: normal affect Quality:SDOH Health Related Social Needs: Health related social needs material hardship Exam Narrative Exam Narrative: Sepideh is in no acute distress, alert & oriented X4 , no focal neurological deficit,unlabored breathing with clear lungs , S1, S2, no murmur, abdomen is not distended , soft, nontender, no CVA tenderness , moves all 4 extremities. Psych Mental Status: mental status grossly normal Speech and Movement: speech and movement normal Mood: congruent mood Affect: normal affect DS: Data Vitals/I&O Vitals and I&O: Vital Signs Temperature 36.7 C 12/23/24 07:30 Temperature Source Temporal Artery Scan 12/23/24 07:30 Pulse 71 12/23/24 07:30 Pulse Rhythm Regular 12/21/24 05:50 Pulse 56 L 12/21/24 05:20 Respiratory Rate 17 12/23/24 07:30 Respiratory Effort Accessory Muscle Use 12/21/24 05:50 Respiratory Depth Deep 12/21/24 05:50 Respiratory Pattern [place]ar 12/21/24 05:50 Blood Pressure 160/81 H 12/23/24 07:30 Blood Pressure Mean 107 12/23/24 07:30 Blood Pressure Position Supine 12/21/24 01:10 Pulse Oximetry 98 12/23/24 07:30 Respiratory End-tidal CO2 48 12/21/24 05:20 Oxygen Delivery Method Room Air 12/23/24 07:30 Oxygen Flow Rate 0 12/23/24 07:30 End Tidal Co2 38 12/21/24 01:35 Pain Level 7 12/23/24 07:30 Comment pt requested to be left alone to sleep, will get when pt wakes up 12/22/24 23:35 Intake & Output 12/22/24 12/22/24 12/23/24 11:59 23:59 11:59 Intake Total 1999 1050 / 3050 1000 / 1000 Output Total 3275 / 4575 1300 / 4575 1200 / 1200 Balance -1275 / -1525 -250 / -1525 -200 / -200 Intake: IV 1999 1050 / 3050 1000 / 1000 Output: Urine 3275 / 4575 1300 / 4575 1200 / 1200 Other: Urine Color Pale Yellow Pale Yellow Urine Appearance Clear Cloudy Clear Urine Odor Normal Normal Normal Data Completed and Pending Labs on day of discharge: Labs from last 24 hours 12/23/24 12/22/24 05:35 15:00 WBC Pending Cancelled RBC Pending Cancelled Hgb Pending Cancelled Hct Pending Cancelled MCV Pending Cancelled MCH Pending Cancelled MCHC Pending Cancelled RDW Pending Cancelled Plt Count Pending Cancelled MPV Pending Cancelled Immature Gran % Pending Cancelled Neutrophils % Pending Cancelled Band Neutrophils % Cancelled Lymphocytes % Pending Cancelled Atypical Lymphs % Cancelled Monocytes % Pending Cancelled Eosinophils % Pending Cancelled Basophils % Pending Cancelled Metamyelocytes % Cancelled Myelocytes % Cancelled Promyelocytes % Cancelled Other Cells % Cancelled Nucleated RBC % Cancelled Absolute Neutrophils Pending Cancelled Absolute Lymphocytes Pending Cancelled Absolute Monocytes Pending Cancelled Absolute Eosinophils Pending Cancelled Absolute Basophils Pending Cancelled RBC Morphology Cancelled Polychromasia Cancelled Hypochromasia Cancelled Poikilocytosis Cancelled Basophilic Stippling Cancelled Anisocytosis Cancelled Microcytosis Cancelled Macrocytosis Cancelled Spherocytes Cancelled Tear Drop Cells Cancelled Ovalocytes Cancelled Stomatocytes Cancelled [place] Clear Bodies Cancelled [place] Cells/Echinocytes Cancelled Acanthocytes (Spur) Cancelled Schistocytes Cancelled Sodium Pending Cancelled Potassium Pending Cancelled Chloride Pending Cancelled Carbon Dioxide Pending Cancelled Anion Gap Pending Cancelled BUN Pending Cancelled Creatinine Pending Cancelled Est GFR (CKD-EPI 2020) Pending Cancelled Glucose Pending Cancelled Calcium Pending Cancelled Magnesium Pending Preliminary micro results at discharge 12/21/24 01:25 Blood Blood Culture - Preliminary NO GROWTH 48 HOURS 12/21/24 01:23 Blood Blood Culture - Preliminary NO GROWTH 48 HOURS PFSH All Active Problems (Updated 12/23/24 @ 11:03 by Enid Bonner APRN) Bladder mass (Acute) Chronic back pain (Acute) Cystic mass of pancreas (Acute) Abnormal finding on CT scan (Acute) On deep vein thrombosis (DVT) prophylaxis (Acute) [place] coma scale score 3-8, at arrival to emergency department (Acute) Altered mental status (Acute) Encephalopathy (Acute) Low magnesium level (Acute) Mental status alteration (Acute) UTI (urinary tract infection) (Acute) Acute UTI (Acute) Altered mental status (Acute) Failure to thrive in adult (Acute) Weakness (Acute) Falls frequently (Acute) Trouble talking (Acute) Acute UTI (Acute) Acute kidney injury superimposed on CKD (Acute) Lives in custodial (Acute) Deficit in activities of daily living (ADL) (Acute) Closed fracture of distal end of radius (Acute) Closed fracture of left distal radius (Acute) Closed fracture of right distal radius (Acute) Heart murmur (Acute) Depression (Chronic) At high risk for skin breakdown (Acute) Periorbital edema (Acute) Hiatal hernia (Chronic) moderate Coronary artery calcification seen on CAT scan (Acute) Diverticula of colon (Acute) DJD (degenerative joint disease), lumbar (Acute) History of CVA (cerebrovascular accident) (Acute) remote Fracture of both wrists (Acute) Goiter (Acute) Fibromyalgia (Chronic) KWAME (obstructive sleep apnea) (Chronic) Chronic pain (Chronic) Movement disorder (Acute) Chronic renal insufficiency, stage III (moderate) (Acute) Anemia (Chronic) Hypertension (Chronic) Medical History (Updated 12/23/24 @ 11:03 by Enid Bonner APRN) Encephalopathy Seizure Psychiatric symptoms Ambulatory dysfunction Palliative care patient AMS (altered mental status) Rhabdomyolysis Fall ACP (advance care planning) Primary osteoarthritis of left knee We will see the patient back in 4-1/2 months for possible repeat Synvisc 1 in her left knee would consider x-ray in her right knee if she is still significantly symptomatic Osteoarthritis of right knee Steroid injection: 04/05/2020 Has had previous viscosupplementation injections. 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) As treatment for a femoral neck fracture (DOI: 09/16/2020) History of back surgery Hx of cholecystectomy Social History Smoking/Tobacco Use Status: Never Smoking risk assessment performed?: Yes Alcohol Intake: never Drug use: Never Substance use type: does not use Housing: assisted living facility Do you feel safe at home: Yes Do you feel safe in your relationship?: Yes Additional Social history: health and rehab Time Spent with Patient Time Spent with Patient: 70-84 minutes4 Time was spent: preparing to see the patient(eg.review tests), obtaining and/or reviewing separately otained hiistory, ordering medications,tests, procedures, referring, communicating with other health acute care occupational therapist, indepentently interpreting results, counseling the patient and care coordination
[2024-12-23 11:42] VITALS: BP 153/83; PULSE 74; RESP 16; TEMP 36.1; O2SAT 98
--- NOTE | 2024-12-23 16:05 | PDOC.CMDIS ---
Date of service: 12/23/24 Time of Service: 16:05 LACE Index Scoring Tool Questions: Length of Stay (in days): 2 Was the patient admitted via the E.D.?: Yes Comorbidities: Cerebrovascular Disease and Liver or Renal Disease E.D. Visits: 5 Answers: Total Score: 14 Risk of Readmission: High Risk Care Management Discharge Plan Reason for Hospitalization: mental status change Discharge Plan: Tegan was transferred back to [facility] earlier this afternoon. She will f/u with her PCP and with urology and continue per her plan of care. She was transported via [facility] wheelchair van as coordinated by CM. Prior to her transfer, CM spoke with Tegan's daughter, Renetta. Renetta wanted it to be know that the goal is to get Tegan home. Tegan does have community support through [facility]/medicaid. Renetta asked that CM relay this to [facility], which was done. Patient/Family Education Needs: Review of discharge instructions, activity, limitations and discuss Ask me 3. SDOH Health Related Social Needs: Health related social needs material hardship
== END 2024-12-23 13:40 | disposition skilled nursing facility (03) ==
LOC: ER 05:31 → MS 05:53
PROVIDERS: Admitting Provider Hospitalist; Emergency Provider Student in an Organized Health Care Education/Training Program; PCP Family Medicine; Responsible Provider Nurse Practitioner Acute Care; Visit Provider Hospitalist
DX: N39.0 Urinary tract infection, site not specified (principal); R40.4 Transient alteration of awareness; N32.89 Other specified disorders of bladder; E86.0 Dehydration; K86.2 Cyst of pancreas; G89.29 Other chronic pain; E04.2 Nontoxic multinodular goiter; E83.42 Hypomagnesemia; R53.1 Weakness; R29.6 Repeated falls; N17.9 Acute kidney failure, unspecified; F32.A Depression, unspecified; K44.9 Diaphragmatic hernia without obstruction or gangrene; I25.10 Atherosclerotic heart disease of native coronary artery without angina pectoris; K57.30 Diverticulosis of large intestine without perforation or abscess without bleeding; Z86.73 Personal history of transient ischemic attack (TIA), and cerebral infarction without residual deficits; G47.33 Obstructive sleep apnea (adult) (pediatric); N18.30 Chronic kidney disease, stage 3 unspecified; I12.9 Hypertensive chronic kidney disease with stage 1 through stage 4 chronic kidney disease, or unspecified chronic kidney disease; M17.0 Bilateral primary osteoarthritis of knee; H90.3 Sensorineural hearing loss, bilateral; Z96.642 Presence of left artificial hip joint; Z79.899 Other long term (current) drug therapy; Z79.891 Long term (current) use of opiate analgesic; B95.4 Other streptococcus as the cause of diseases classified elsewhere; M54.9 Dorsalgia, unspecified; G40.909 Epilepsy, unspecified, not intractable, without status epilepticus
CPT/HCPCS: 00123; 36415; 51702; 74177; 80048; 80053; 80307; 82805; 87040; 87641; 93005; 96361; 96365; 96366; 96374; 96375; 97162; 97530; 99222; 99291; 70450; 70551; 71260; 72125; 80320; 81003; 82140; 83605; 83735; 84443; 84484; 85025; 93010; 99233; 99239; G0378; J1953; J2312; J3475; J3490

== ENCOUNTER 2025-01-12 15:53 | Outpatient (REF) | payer MEDICARE, MEDICAID, SELFPAY ==
[2025-01-12 14:09] LABS: Glucose Negative (Negative)
[2025-01-12 14:17] LABS: RBC 0-2 HPF (0-2); WBC >50 HPF (0-5)
== END 2025-01-12 15:54 | disposition home or self-care (01) ==
LOC: LBN 15:53
PROVIDERS: PCP Family Medicine; Visit Provider Nurse Practitioner Adult Health
DX: N39.0 Urinary tract infection, site not specified (principal)
CPT/HCPCS: 87077; 81003; 81015; 87086; 87186

== ENCOUNTER 2025-01-13 01:43 | Outpatient (REF) | payer MEDICARE, MEDICAID, SELFPAY ==
[2025-01-13 01:58] LABS: Abs Immature Grans 0.02 10^3/uL (0.0-0.06); HCT 28.0 % (36.0-46.0); HGB 8.9 g/dL (11.2-15.7); Immature Grans % 0.4 %; MCH 27.8 pg (27.0-33.0); MCHC 31.8 % (32.0-36.0); MCV 88 fL (80-95); MPV 10.2 fL (8.0-11.0); Platelet Count 250 10^3/uL (130-400); RBC 3.20 10^6/uL (3.93-5.22); RDW 14.8 % (11.7-14.6); RDW-SD 47.4 fL; WBC 4.83 10^3/uL (4.4-10.8)
[2025-01-13 02:28] LABS: Hypochromasia 1+
[2025-01-13 21:09] LABS: Glucose Negative (Negative)
[2025-01-13 21:20] LABS: RBC Negative HPF (0-2); WBC >50 HPF (0-5)
== END 2025-01-13 01:44 | disposition home or self-care (01) ==
LOC: LBN 01:43
PROVIDERS: PCP Family Medicine; Visit Provider Nurse Practitioner Gerontology
DX: R01.1 Cardiac murmur, unspecified (principal); R30.0 Dysuria
CPT/HCPCS: 80053; 81003; 81015; 84484; 85025; 87086

== ENCOUNTER 2025-01-13 11:40 | Outpatient (REF) | payer MEDICARE, MEDICAID, SELFPAY ==
[2025-01-13 12:00] LABS: Abs Immature Grans 0.03 10^3/uL (0.0-0.06); HCT 28.9 % (36.0-46.0); HGB 9.3 g/dL (11.2-15.7); Immature Grans % 0.4 %; MCH 28.0 pg (27.0-33.0); MCHC 32.2 % (32.0-36.0); MCV 87 fL (80-95); MPV 10.0 fL (8.0-11.0); Platelet Count 254 10^3/uL (130-400); RBC 3.32 10^6/uL (3.93-5.22); RDW 14.8 % (11.7-14.6); RDW-SD 47.1 fL; WBC 6.73 10^3/uL (4.4-10.8)
[2025-01-13 12:27] LABS: ALT 18 U/L (14-59); AST 18 U/L (15-37); Albumin 2.9 g/dL (3.4-5.0); Alkaline Phosphatase 72 U/L (46-116); Anion Gap 7.8 mmol/L (3-11); BUN 29 mg/dL (7-18); Bilirubin, Total 0.4 mg/dL (0.2-1.0); CO2 29.2 mmol/L (21.0-32.0); Calcium 9.6 mg/dL (8.5-10.1); Chloride 106 mmol/L (98-107); Estimated GFR 89.58 (mL/min/1.73m2); Glucose 139 mg/dL (74-106); Potassium 3.6 mmol/L (3.5-5.1); Sodium 143 mmol/L (136-145); Total Protein 7.8 g/dL (6.4-8.2); Troponin I 10 ng/L (<or=51)
== END 2025-01-13 11:41 | disposition home or self-care (01) ==
LOC: LBN 11:40
PROVIDERS: PCP Family Medicine; Visit Provider Nurse Practitioner Adult Health
DX: I25.10 Atherosclerotic heart disease of native coronary artery without angina pectoris (principal)
CPT/HCPCS: 80053; 84484; 85025

== ENCOUNTER 2025-01-15 11:30 | Outpatient (REF) | payer MEDICARE, MEDICAID, SELFPAY ==
[2025-01-15 11:37] LABS: Ammonia 16 umol/L (11-32)
== END 2025-01-15 11:31 | disposition home or self-care (01) ==
LOC: LBN 11:30
PROVIDERS: PCP Family Medicine; Visit Provider Nurse Practitioner Adult Health
DX: F33.3 Major depressive disorder, recurrent, severe with psychotic symptoms (principal)
CPT/HCPCS: 80177; 82140

== ENCOUNTER 2025-02-04 12:19 | Observation (INO) | payer MEDICARE, MEDICAID, SELFPAY ==
[2025-02-04] VITALS (39 sets, daily range): BP systolic 148–165; BP diastolic 81–99; PULSE 67–97; RESP 16–19; TEMP 35.9–36.9; O2SAT 92–96
[2025-02-04 13:30] LABS: Abs Immature Grans 0.02 10^3/uL (0.0-0.06); HCT 30.4 % (36.0-46.0); HGB 9.5 g/dL (11.2-15.7); Immature Grans % 0.5 %; MCH 27.8 pg (27.0-33.0); MCHC 31.3 % (32.0-36.0); MCV 89 fL (80-95); MPV 9.4 fL (8.0-11.0); Platelet Count 201 10^3/uL (130-400); RBC 3.42 10^6/uL (3.93-5.22); RDW 15.0 % (11.7-14.6); RDW-SD 48.8 fL; WBC 3.83 10^3/uL (4.4-10.8)
[2025-02-04 13:59] LABS: ALT 17 U/L (14-59); AST 19 U/L (15-37); Albumin 3.2 g/dL (3.4-5.0); Alkaline Phosphatase 79 U/L (46-116); Anion Gap 7.2 mmol/L (3-11); BUN 21 mg/dL (7-18); Bilirubin, Total 0.5 mg/dL (0.2-1.0); CO2 30.8 mmol/L (21.0-32.0); Calcium 9.3 mg/dL (8.5-10.1); Chloride 105 mmol/L (98-107); Estimated GFR 89.58 (mL/min/1.73m2); Glucose 111 mg/dL (74-106); Lipase 43 U/L (<78); Magnesium 1.9 mg/dL (1.8-2.4); Potassium 3.7 mmol/L (3.5-5.1); Sodium 143 mmol/L (136-145); Total Protein 8.1 g/dL (6.4-8.2); Troponin I 13 ng/L (<or=51)
--- NOTE | 2025-02-04 14:07 | DI.RAD_ITS ---
Exam(s) XR CHEST 2V PA LATERAL EXAM: XR CHEST 2V PA LATERAL CLINICAL HISTORY: possible aspiration, non-verbal TECHNIQUE: 2D digital imaging was performed. Two views. COMPARISON: CR,XR XR CHEST 2V PA LATERAL from 08/28/[address] CHEST/ABD/PEL W from 12/21/2024 FINDINGS: Exam is limited by suboptimal pulmonary inflation. HEART: Normal size. Aorta: Not dilated. PULMONARY VASCULATURE: Normal. MEDIASTINUM: Unremarkable. LUNGS: Grossly clear. PLEURAL SPACE: No pleural effusion or pneumothorax. BONE:Unremarkable for age. SOFT TISSUES: Unremarkable. IMPRESSION: No acute abnormality. DATA REPOSITORY: RADIATION DOSE DELIVERED:
--- NOTE | 2025-02-04 14:08 | DI.RAD_ITS ---
Exam(s) XR SOFT TISSUE NECK EXAM: XR SOFT TISSUE NECK CLINICAL HISTORY: possible aspiration, non-verbal. TECHNIQUE: 2D digital imaging was performed. COMPARISON: CT CT HEAD CERVICAL SPINE WO from 12/21/2024 FINDINGS: BONES: No acute fracture is present. Visualized vertebral body and disc heights are maintained. Fusion hardware noted from C4 through C7. SOFT TISSUE:Airway is patent without radiopaque foreign body. Epiglottis is not enlarged. Prevertebral soft tissues appear unremarkable. IMPRESSION: Postsurgical changes with hardware in the mid through lower cervical spine. No foreign body is visible on the lateral view. DATA REPOSITORY: RADIATION DOSE DELIVERED:
[2025-02-04] MEDS: ACETAMINOPHEN 1,000 MG/100 ML BAG 400 MG IVPB (14:35)
--- NOTE | 2025-02-04 14:42 | W.ED.GENAD ---
Discharge Plan Disposition Patient Disposition: Home Condition: Stable Discharge Details Clinical Impression: Aspiration of food Primary Care Provider: Marixa Kurtz ED Provider: [place] Home Meds and New Rx's Prescriptions: New azithromycin 250 mg tablet See Rx Instructions .ROUTE .COMPLEX Qty: 6 0RF Rx Instructions: For 250 mg dose pack: take 500 mg today (day 1), then 250 mg for 4 days (days 2-5) Continued oxycodone 5 mg tablet See Rx Instructions PO BID PRN Rx Instructions: 1 BID and addl 1 is needed orally twice a day PRN; lorazepam 1 mg tablet 1 mg PO BID PRN levetiracetam 500 mg tablet 500 mg PO BID Qty: 1 0RF aspirin 81 mg tablet,delayed release (DR/EC) 81 mg PO DAILY omeprazole 40 MG capsule,delayed release(DR/EC) 40 mg PO DAILY vitamin B complex Tablet 1 tab PO DAILY acetaminophen 325 mg Tablet 650 mg PO QID Qty: 30 0RF mirtazapine 15 mg Tablet 15 mg PO HS Qty: 30 0RF Phlexy-Vits 15 mg- 700 mcg Powder In Packet 1 packet PO TID Qty: 30 0RF amlodipine 10 mg tablet 10 mg PO DAILY naloxone 4 mg/actuation spray,non-aerosol 4 mg INTRANASAL ONCE PRN Patient Comments: ADMINISTER 1 SPRAY INTO ONE NOSTRIL A SINGLE DOSE NEEDED FOR EXCESSIVE SEDATION atorvastatin 20 mg Tablet 20 mg PO QPM Qty: 30 0RF risperidone 1 mg tablet 1 mg PO BID Patient Comments: TAKE ONE TABLET BY MOUTH AT BEDTIME nitrofurantoin macrocrystal 100 mg capsule 100 mg PO DAILY Discharge Instructions Instructions: Aspiration pneumonia, Azithromycin (Systemic) Additional Instructions: You were seen in the emergency department for the possible aspiration of Posta while eating, there is no pneumonia seen on chest x-ray but due to the patient's comorbidities we will start empiric azithromycin antibiotics to prevent any aspiration pneumonia. Her cardiac workup is negative and there was no acute severe abnormalities on her laboratory workup. Please return for any acute emergent concerns including shortness of breath, developing worsening cough with hypoxia, chest pain or other emergent concerns. Referrals: Mariax Kurtz [Primary Care Provider, Medicine] HPI General Date/Time Provider Initiated Documentation: 02/04/25 12:30. HPI Narrative: 74 year-old female presents to ED today by EMS with a chief complaint of non-verbal patient from SNF, witnessed pasta aspiration at dinner. Quality described as unable to qualify- endorses pain, does respond with some simple words, no radiation to fever, vomiting, cough, labored respirations, abdominal pain. Severity is described as unable to quantify. Palliating factors include nothing specific. Provoking factors include nothing specific. Patient not anticoagulated. Related Data Home Medications ?Medication ?Instructions ?Recorded ?Confirmed omeprazole 40 mg capsule,delayed 40 mg PO DAILY 05/19/14 02/04/25 release vitamin B complex 1 tab PO DAILY 01/05/20 02/04/25 aspirin 81 mg tablet,delayed 81 mg PO DAILY 06/23/21 02/04/25 release amlodipine 10 mg tablet 10 mg PO DAILY 01/14/22 02/04/25 naloxone 4 mg/actuation nasal spray 4 mg intranasal ONCE PRN 07/16/23 02/04/25 atorvastatin 20 mg tablet 20 mg PO QPM #30 tabs 08/23/24 02/04/25 acetaminophen 325 mg tablet 650 mg (2 x 325 mg) PO QID #30 tabs 09/01/24 02/04/25 mirtazapine 15 mg tablet 15 mg PO HS #30 tabs 09/01/24 02/04/25 multivit with mins-ferrous sulf 15 1 packet PO TID #30 ea 09/01/24 02/04/25 mg-folic 700 mcg oral powder packet (Phlexy-Vits) nitrofurantoin macrocrystal 100 mg 100 mg PO DAILY 12/21/24 02/04/25 capsule levetiracetam 500 mg tablet 500 mg PO BID #1 tab 01/29/25 02/04/25 lorazepam 1 mg tablet 1 mg PO BID PRN 01/29/25 02/04/25 oxycodone 5 mg tablet See Rx Instructions PO BID PRN 01/29/25 02/04/25 risperidone 1 mg tablet 1 mg PO BID 01/29/25 02/04/25 azithromycin 250 mg tablet See Rx Instructions PO .COMPLEX #6 02/04/25 tabs Previous Rx's ?Medication ?Instructions ?Recorded atorvastatin 20 mg tablet 20 mg PO QPM #30 tabs 08/23/24 acetaminophen 325 mg tablet 650 mg (2 x 325 mg) PO QID #30 tabs 09/01/24 mirtazapine 15 mg tablet 15 mg PO HS #30 tabs 09/01/24 multivit with mins-ferrous sulf 15 1 packet PO TID #30 ea 09/01/24 mg-folic 700 mcg oral powder packet (Phlexy-Vits) levetiracetam 500 mg tablet 500 mg PO BID #1 tab 01/29/25 azithromycin 250 mg tablet See Rx Instructions PO .COMPLEX #6 02/04/25 tabs Allergies Allergy/AdvReac Type Severity Reaction Status Date / Time sulfamethoxazole (From Allergy Diarrhea Verified 02/04/25 12:44 Bactrim) trimethoprim (From Bactrim) Allergy Diarrhea Verified 02/04/25 12:44 morphine AdvReac Intermediate Psychosis Verified 02/04/25 12:44 baclofen AdvReac Unknown Unknown Verified 02/04/25 12:44 chlorthalidone AdvReac Unknown Unknown Verified 02/04/25 12:44 codeine AdvReac Unknown Unknown Verified 02/04/25 12:44 dextromethorphan AdvReac Unknown Unknown Verified 02/04/25 12:44 gabapentin (From Neurontin) AdvReac Unknown Unknown Verified 02/04/25 12:44 hydrochlorothiazide AdvReac Unknown Unknown Verified 02/04/25 12:44 pregabalin AdvReac Unknown Dopey Verified 02/04/25 12:44 General Stated Complaint: GenMedical LOLITA: 3 Review of Systems All systems reviewed & are unremarkable except as noted in HPI and below Exam Narrative Exam Narrative: GENERAL APPEARANCE: Frail, non-toxic, awake - responds yes /no, atraumatic, mild acute distress. SKIN: Warm, pale, dry, intact, without rashes/lesions/ulcerations. HEAD: Normocephalic, atraumatic, normal hair distribution for gender/age. EYES: Normal conjunctiva, no exudates on lids/lashes. ENT: Nares patent, no circumoral cyanosis, no facial swelling NECK: Supple, trachea midline, painless cervical ROM. LUNGS/CHEST: Lungs - rhonchi diffusely, non-labored respirations, normal A/P diameter, symmetrical expansion, no chest wall deformity HEART (CV/PV): Regular rate and rhythm without murmur, no peripheral edema, no JVD. ABDOMEN: Soft, non-distended, no guarding, no focal tenderness. MSK: Normal ROM, no swelling/deformity to bilateral UEs or LEs, moving all extremities without weakness, no cyanosis, spine midline without tenderness, normal curvature. NEURO: Mental Status - at her baseline, answers brief yes/no, endorses pain, awakens to spontaneous stimuli No facial droop, no forehead involvement. Motor: No focal weakness - strength 4/5 diffusely Sensory: sensation intact to light touch globally. Gait NT. PSYCH: dysthymic, cooperative Course Vital Signs Vital signs: Vital Signs Temperature 35.9 C L 02/04/25 12:20 Pulse 92 H 02/04/25 12:20 Respiratory Rate 19 02/04/25 12:20 Blood Pressure 155/99 H 02/04/25 12:20 Pulse Oximetry 92 02/04/25 12:20 Temperature 35.9 C L 02/04/25 12:20 Temperature Source Temporal Artery Scan 02/04/25 12:20 Pulse 92 H 02/04/25 12:20 Respiratory Rate 19 02/04/25 12:20 Blood Pressure 155/99 H 02/04/25 12:20 Pulse Oximetry 92 02/04/25 12:20 Oxygen Delivery Method Room Air 02/04/25 12:20 Oxygen Flow Rate 0 02/04/25 12:20 Pain Level 0 02/04/25 12:20 Lab/Test Results Lab/Test Results: Laboratory Tests Range/Units 02/04/25 13:19 WBC (4.4-10.8) 10^3/uL 3.83 L RBC (3.93-5.22) 10^6/uL 3.42 L Hgb (11.2-15.7) g/dL 9.5 L Hct (36.0-46.0) % 30.4 L MCV (80-95) fL 89 MCH (27.0-33.0) pg 27.8 MCHC (32.0-36.0) % 31.3 L RDW (11.7-14.6) % 15.0 H Plt Count (130-400) 10^3/uL 201 MPV (8.0-11.0) fL 9.4 Immature Gran % % 0.5 Neutrophils % % 66.6 Lymphocytes % % 15.1 Monocytes % % 15.7 Eosinophils % % 1.3 Basophils % % 0.8 Nucleated RBC % (0.0-0.3) % 0.0 Absolute Neutrophils (1.2-6.7) 10^3/uL 2.55 Absolute Lymphocytes (1.2-3.4) 10^3/uL 0.58 L Absolute Monocytes (0.1-0.8) 10^3/uL 0.60 Absolute Eosinophils (0.0-0.7) 10^3/uL 0.05 Absolute Basophils (0.0-0.2) 10^3/uL 0.03 VBG Lactate (<or=2.0) mmol/L 1.7 Sodium (136-145) mmol/L 143 Potassium (3.5-5.1) mmol/L 3.7 Chloride (98-107) mmol/L 105 Carbon Dioxide (21.0-32.0) mmol/L 30.8 Anion Gap (3-11) mmol/L 7.2 BUN (7-18) mg/dL 21 H Creatinine (0.55-1.02) mg/dL 0.7 Est GFR (CKD-EPI 2020) (mL/min/1.73m2) 89.58 Glucose (74-106) mg/dL 111 H Calcium (8.5-10.1) mg/dL 9.3 Magnesium (1.8-2.4) mg/dL 1.9 Total Bilirubin (0.2-1.0) mg/dL 0.5 AST (15-37) U/L 19 ALT (14-59) U/L 17 Alkaline Phosphatase (46-116) U/L 79 Troponin I (<or=51) ng/L 13 Total Protein (6.4-8.2) g/dL 8.1 Albumin (3.4-5.0) g/dL 3.2 L Lipase (<78) U/L 43 Medical Decision Making This dictation utilizes [id number]-cult dictation software and may contain unedited grammatical errors. 74 year-old female presents to ED today by EMS with a chief complaint of non-verbal patient from SNF, witnessed pasta aspiration at dinner. Quality described as unable to qualify- endorses pain, does respond with some simple words, no radiation to fever, vomiting, cough, labored respirations, abdominal pain. Severity is described as unable to quantify. Palliating factors include nothing specific. Provoking factors include nothing specific. Patients' medical history: History of UTI, electrolyte abnormalities, encephalopathy, seizure, psychiatric symptoms, altered mental status, rhabdomyolysis, hypomagnesemia, pneumonia, history of CVA, palliative care patient, dementia, failure to thrive, CKD, anemia, hypertension. Family and social history: lives at SNF. Pertinent exam findings / vital signs include benign cardiopulmonary exam, benign abdomen, response with only yes to possibly aspirating food and yes to pain all over. Differential / pathologies of concern include ACS, aspiration pneumonia, electrolyte abnormality, pancreatitis, gastritis, sepsis, AROLDO or dehydration. Diagnostic studies of: -CBC, CMP, lactate, magnesium, serial troponins, lipase, EKG, x-ray neck and chest. - CBC shows chronic anemia better than prior values likely baseline - Lactate negative - CMP shows mildly increased BUN without other actionable abnormality - Magnesium within normal limits - Lipase within normal limits - Initial troponin 13, repeat 35 warranting a 3-hour value - Adding a CK due to patient's perceived lower extremity pain and history of rhabdomyolysis though this is less likely - No foreign body or pneumonia seen on x-ray neck and chest but will cover for aspiration pneumonia empirically Interventions of: -1g IV APAP. ED Course/Assessment/Plan: 74-year-old female presents by EMS for possible aspiration of pasta- will cover empirically due to her baseline nonverbal and bedbound status -incidentally her delta troponin did increase on a 1 hour repeat by 22 indicating the need for a 3-hour troponin, added an EKG and a CK due to rhabdomyolysis history due to her report of possible pain, suspect difficult with the patient's cognitive abilities to get a full history of what is acutely going on but hopeful that her troponin remains negative and she can be discharged on azithromycin, signed out to Phylicia Goel NP at shift change. Disposition of Aspiration of Food. Patient verbalized understanding of the plan and return to ED criteria and engaged in shared decision making. Medical Records Medical records reviewed: Yes I reviewed the patient's medical records. Imaging Data Radiologic Study: Attestation: I personally reviewed and interpreted this imaging study as follows: Imaging: X-Ray Radiologist's impression: EXAM: XR SOFT TISSUE NECK CLINICAL HISTORY: possible aspiration, non-verbal. TECHNIQUE: 2D digital imaging was performed. COMPARISON: CT CT HEAD CERVICAL SPINE WO from 12/21/2024 FINDINGS: BONES: No acute fracture is present. Visualized vertebral body and disc heights are maintained. Fusion hardware noted from C4 through C7. SOFT TISSUE:Airway is patent without radiopaque foreign body. Epiglottis is not enlarged. Prevertebral soft tissues appear unremarkable. IMPRESSION: Postsurgical changes with hardware in the mid through lower cervical spine. No foreign body is visible on the lateral view. Radiologic Study #2: Attestation: I personally reviewed and interpreted this imaging study as follows: Imaging: X-Ray Radiologist's impression: EXAM: XR CHEST 2V PA LATERAL CLINICAL HISTORY: possible aspiration, non-verbal TECHNIQUE: 2D digital imaging was performed. Two views. COMPARISON: CR,XR XR CHEST 2V PA LATERAL from 08/28/[address] CHEST/ABD/PEL W from 12/21/2024 FINDINGS: Exam is limited by suboptimal pulmonary inflation. HEART: Normal size. Aorta: Not dilated. PULMONARY VASCULATURE: Normal. MEDIASTINUM: Unremarkable. LUNGS: Grossly clear. PLEURAL SPACE: No pleural effusion or pneumothorax. BONE:Unremarkable for age. SOFT TISSUES: Unremarkable. IMPRESSION: No acute abnormality. Lab Data Lab results reviewed: Yes I reviewed the patient's lab results. Labs: Laboratory Tests Range/Units 02/04/25 13:19 WBC (4.4-10.8) 10^3/uL 3.83 L RBC (3.93-5.22) 10^6/uL 3.42 L Hgb (11.2-15.7) g/dL 9.5 L Hct (36.0-46.0) % 30.4 L MCV (80-95) fL 89 MCH (27.0-33.0) pg 27.8 MCHC (32.0-36.0) % 31.3 L RDW (11.7-14.6) % 15.0 H Plt Count (130-400) 10^3/uL 201 MPV (8.0-11.0) fL 9.4 Immature Gran % % 0.5 Neutrophils % % 66.6 Lymphocytes % % 15.1 Monocytes % % 15.7 Eosinophils % % 1.3 Basophils % % 0.8 Nucleated RBC % (0.0-0.3) % 0.0 Absolute Neutrophils (1.2-6.7) 10^3/uL 2.55 Absolute Lymphocytes (1.2-3.4) 10^3/uL 0.58 L Absolute Monocytes (0.1-0.8) 10^3/uL 0.60 Absolute Eosinophils (0.0-0.7) 10^3/uL 0.05 Absolute Basophils (0.0-0.2) 10^3/uL 0.03 VBG Lactate (<or=2.0) mmol/L 1.7 Sodium (136-145) mmol/L 143 Potassium (3.5-5.1) mmol/L 3.7 Chloride (98-107) mmol/L 105 Carbon Dioxide (21.0-32.0) mmol/L 30.8 Anion Gap (3-11) mmol/L 7.2 BUN (7-18) mg/dL 21 H Creatinine (0.55-1.02) mg/dL 0.7 Est GFR (CKD-EPI 2020) (mL/min/1.73m2) 89.58 Glucose (74-106) mg/dL 111 H Calcium (8.5-10.1) mg/dL 9.3 Magnesium (1.8-2.4) mg/dL 1.9 Total Bilirubin (0.2-1.0) mg/dL 0.5 AST (15-37) U/L 19 ALT (14-59) U/L 17 Alkaline Phosphatase (46-116) U/L 79 Troponin I (<or=51) ng/L 13 Total Protein (6.4-8.2) g/dL 8.1 Albumin (3.4-5.0) g/dL 3.2 L Lipase (<78) U/L 43 Quality:SDOH Health Related Social Needs: Health related social needs material hardship PFSH All Active Problems (Updated 02/04/25 @ 14:58 by DARIO Ramos) Aspiration of food (Acute) Palliative care patient (Acute) ACP (advance care planning) (Acute) DNR (do not resuscitate) (Acute) Delusions (Acute) Dementia (Chronic) Bladder mass (Acute) Chronic back pain (Acute) Cystic mass of pancreas (Acute) Abnormal finding on CT scan (Acute) Sharifa coma scale score 3-8, at arrival to emergency department (Acute) Altered mental status (Acute) Encephalopathy (Acute) Acute UTI (Acute) Altered mental status (Acute) Failure to thrive in adult (Acute) Weakness (Acute) Falls frequently (Acute) Trouble talking (Acute) Acute UTI (Acute) Acute kidney injury superimposed on CKD (Acute) Lives in shelter (Acute) Deficit in activities of daily living (ADL) (Acute) Closed fracture of distal end of radius (Acute) Closed fracture of left distal radius (Acute) Closed fracture of right distal radius (Acute) Heart murmur (Acute) Depression (Chronic) At high risk for skin breakdown (Acute) Periorbital edema (Acute) Hiatal hernia (Chronic) moderate Coronary artery calcification seen on CAT scan (Acute) Diverticula of colon (Acute) DJD (degenerative joint disease), lumbar (Acute) History of CVA (cerebrovascular accident) (Acute) remote Fracture of both wrists (Acute) Goiter (Acute) Fibromyalgia (Chronic) KWAME (obstructive sleep apnea) (Chronic) Chronic pain (Chronic) Movement disorder (Acute) Chronic renal insufficiency, stage III (moderate) (Acute) Anemia (Chronic) Hypertension (Chronic) Medical History (Updated 02/04/25 @ 14:58 by DARIO Ramos) Low magnesium level UTI (urinary tract infection) Encephalopathy Seizure Psychiatric symptoms Ambulatory dysfunction AMS (altered mental status) Rhabdomyolysis Fall Primary osteoarthritis of left knee We will see the patient back in 4-1/2 months for possible repeat Synvisc 1 in her left knee would consider x-ray in her right knee if she is still significantly symptomatic Osteoarthritis of right knee Steroid injection: 04/05/2020 Has had previous viscosupplementation injections. 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) As treatment for a femoral neck fracture (DOI: 09/16/2020) History of back surgery Hx of cholecystectomy Social History Smoking/Tobacco Use Status: Never Smoking risk assessment performed?: Yes Alcohol Intake: never Drug use: Never Substance use type: does not use Housing: assisted living facility Do you feel safe at home: Yes Do you feel safe in your relationship?: Yes Additional Social history: health and rehab
[2025-02-04 15:25] LABS: Troponin I 35 ng/L (<or=51)
--- NOTE | 2025-02-04 15:30 | RT.EKG_ITS ---
APPROVED REPORT Exam: Resting ECG Reason for Exam: baseline/screening Patient Location: E HR:72 bpm ECG Measurements Heart Rate 72 AXIS NC 200 P 56 QRSd 91 QRS 14 QT 416 T 63 QTc 454 Conclusion Sinus rhythm, rate 72 No interval abnormalities No STEMI Compared to priors no significant changes
[2025-02-04 16:46] LABS: Creatine Kinase 34 U/L (26-192)
[2025-02-04 16:48] LABS: Troponin I 45 ng/L (<or=51)
--- NOTE | 2025-02-04 17:23 | NUR.NOTE ---
15:00 This rn and Lucía LAGUNAS changed pt and provided hygiene. Pt now in clean and new diaper. Nursing Note:
--- NOTE | 2025-02-04 17:27 | W.EDPROG ---
Date of service: 02/04/25 Time of Service: 16:00 Medical Decision Making Care assumed from provider (DARIO Godwin) Please see their initial HPI, PE, and documentation. Discussed patient details and case and pending workup and disposition. Patient is hemodynamically stable, and alert and oriented. And at baseline. Patient does answer my questions appropriately. Denies any chest pain upon my initial examination questioning at this time EKG is pending and 3-hour troponin. The 1 hour serial troponin had a change of 22 point. EKG was reviewed by myself and Dr. Soliman ER attending, please see official report. 1729: Her 3 troponins are 13, 35, 45, while these are within normal limits and nonischemic however due to the inclusion criteria will consult with hospitalist. Patient given 243 mg of chewable baby aspirin. In short patient is a 74-year-old female who presented after choking on Posta at lunchtime. Does have a history of seizures of AMS, rhabdo myelosis, CVA chronic constipation. 1738: Consult with hospitalist for admission for further observation and treatment. I did discuss care with patient who verbalized under standing she is agreeable to be admitted . She is asking to get in a wheelchair. 1753: Call made to patients daughter Renetta as pt is a DNR/DNI, she is agreeable to admission if needed. Patient also verbalizes understanding and is in agreement. Spoke with Dr. Stiles who is on-call for hospitalist team who agrees to accept patient for admission for further observation, antibiotics and a swallow test and speech pathology consult. Medical Records Medical records reviewed: Yes I reviewed the patient's medical records. Lab Data Lab results reviewed: Yes I reviewed the patient's lab results. Labs: Laboratory Tests Range/Units 02/04/25 02/04/25 02/04/25 13:19 14:50 16:14 WBC (4.4-10.8) 10^3/uL 3.83 L RBC (3.93-5.22) 10^6/uL 3.42 L Hgb (11.2-15.7) g/dL 9.5 L Hct (36.0-46.0) % 30.4 L MCV (80-95) fL 89 MCH (27.0-33.0) pg 27.8 MCHC (32.0-36.0) % 31.3 L RDW (11.7-14.6) % 15.0 H Plt Count (130-400) 10^3/uL 201 MPV (8.0-11.0) fL 9.4 Immature Gran % % 0.5 Neutrophils % % 66.6 Lymphocytes % % 15.1 Monocytes % % 15.7 Eosinophils % % 1.3 Basophils % % 0.8 Nucleated RBC % (0.0-0.3) % 0.0 Absolute Neutrophils (1.2-6.7) 10^3/uL 2.55 Absolute Lymphocytes (1.2-3.4) 10^3/uL 0.58 L Absolute Monocytes (0.1-0.8) 10^3/uL 0.60 Absolute Eosinophils (0.0-0.7) 10^3/uL 0.05 Absolute Basophils (0.0-0.2) 10^3/uL 0.03 VBG Lactate (<or=2.0) mmol/L 1.7 Sodium (136-145) mmol/L 143 Potassium (3.5-5.1) mmol/L 3.7 Chloride (98-107) mmol/L 105 Carbon Dioxide (21.0-32.0) mmol/L 30.8 Anion Gap (3-11) mmol/L 7.2 BUN (7-18) mg/dL 21 H Creatinine (0.55-1.02) mg/dL 0.7 Est GFR (CKD-EPI 2020) (mL/min/1.73m2) 89.58 Glucose (74-106) mg/dL 111 H Calcium (8.5-10.1) mg/dL 9.3 Magnesium (1.8-2.4) mg/dL 1.9 Total Bilirubin (0.2-1.0) mg/dL 0.5 AST (15-37) U/L 19 ALT (14-59) U/L 17 Alkaline Phosphatase (46-116) U/L 79 Creatine Kinase (26-192) U/L 34 Troponin I (<or=51) ng/L 13 35 45 Total Protein (6.4-8.2) g/dL 8.1 Albumin (3.4-5.0) g/dL 3.2 L Lipase (<78) U/L 43 Quality:SDOH Health Related Social Needs: Health related social needs material hardship Health related social needs details pt. non verbal Discharge Plan Disposition Patient Disposition: Admit to [facility] Condition: Stable Discharge Details Clinical Impression: Aspiration of food, Elevated troponin level not due myocardial infarction Admit Date/Time: 02/04/25 18:56 Admit Provider: Thomas Stiles Attending Provider: Thomas Stiles Primary Care Provider: Marixa Kurtz ED Provider: Bela Goel
[2025-02-04] MEDS: Aspirin 81 MG CHEW 243 MG CH (18:23)
--- NOTE | 2025-02-04 19:15 | W.PM.HP.N ---
Date of service: 02/04/25 Time of Service: 20:00 Assessment and Plan Assessment and plan (1) Aspiration of food: Status: Acute Assessment and plan: Report of aspiration of spaghetti; usp performed Heimlich maneuver Concern for dysphagia, chronic/worsening vs acute NPO for speech evaluation - ok to give PO meds with supervision (2) Elevated troponin level not due myocardial infarction: Status: Acute Assessment and plan: Likely very mild demand ischemia Will do one more troponin in the morning to confirm trend (3) Hypertension: Status: Chronic Assessment and plan: Continue home regimen (4) Major depression, recurrent, chronic: Status: Acute Assessment and plan: Continue home regimen (5) Dementia: Status: Chronic Assessment and plan: Continue home regimen History of Present Illness History of Present Illness Chief Complaint: aspiration Narrative: Tegan Ashton is a 74 year old woman presenting February 04 after reportedly aspirating spaghetti. [facility] and is minimally verbal at baseline. Reportedly staff performed the Heimlich maneuver. Patient unable to describe her symptoms in the ED. She appears comfortable. She gives monosyllabic answers to questions, denying pain, shortness of breath, nausea. PMH includes CVA, seizures, HTN, HLD, GERD, lifelong mental illness, rhabdomyolysis, constipation She lived in her own home until August, with caregivers and local family, with worsening decline. She had palliative care visit Jan 28 where DNR/DNI status was confirmed and COLST updated. In the ED she was mildly hypothermic T 35.9, mildly tachycardic HR 92, hypotensive 155/99, on room air. EKG with NSR. CXR unremarkable. XR neck without acute pathology; hardware seen in cervical spine. Normocytic anemia unchanged from previous month, hemoglobin 9.5. Mild hyperglycemia 111. Initial troponin 13, trending up to 35 and 45. PFSH All Active Problems (Updated 02/05/25 @ 01:04 by Thomas Stiles MD) Major depression, recurrent, chronic (Acute) Aspiration into airway (Acute) Elevated troponin level not due myocardial infarction (Acute) Aspiration of food (Acute) Palliative care patient (Acute) ACP (advance care planning) (Acute) DNR (do not resuscitate) (Acute) Delusions (Acute) Dementia (Chronic) Bladder mass (Acute) Chronic back pain (Acute) Cystic mass of pancreas (Acute) Abnormal finding on CT scan (Acute) [place] coma scale score 3-8, at arrival to emergency department (Acute) Altered mental status (Acute) Encephalopathy (Acute) Acute UTI (Acute) Altered mental status (Acute) Failure to thrive in adult (Acute) Weakness (Acute) Falls frequently (Acute) Trouble talking (Acute) Acute UTI (Acute) Acute kidney injury superimposed on CKD (Acute) Lives in usp (Acute) Deficit in activities of daily living (ADL) (Acute) Closed fracture of distal end of radius (Acute) Closed fracture of left distal radius (Acute) Closed fracture of right distal radius (Acute) Heart murmur (Acute) Depression (Chronic) At high risk for skin breakdown (Acute) Periorbital edema (Acute) Hiatal hernia (Chronic) moderate Coronary artery calcification seen on CAT scan (Acute) Diverticula of colon (Acute) DJD (degenerative joint disease), lumbar (Acute) History of CVA (cerebrovascular accident) (Acute) remote Fracture of both wrists (Acute) Goiter (Acute) Fibromyalgia (Chronic) KWAME (obstructive sleep apnea) (Chronic) Chronic pain (Chronic) Movement disorder (Acute) Chronic renal insufficiency, stage III (moderate) (Acute) Anemia (Chronic) Hypertension (Chronic) Medical History (Updated 02/05/25 @ 01:04 by Thomas Stiles MD) Low magnesium level UTI (urinary tract infection) Encephalopathy Seizure Psychiatric symptoms Ambulatory dysfunction AMS (altered mental status) Rhabdomyolysis Fall Primary osteoarthritis of left knee We will see the patient back in 4-1/2 months for possible repeat Synvisc 1 in her left knee would consider x-ray in her right knee if she is still significantly symptomatic Osteoarthritis of right knee Steroid injection: 04/05/2020 Has had previous viscosupplementation injections. 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) As treatment for a femoral neck fracture (DOI: 09/16/2020) History of back surgery Hx of cholecystectomy Social History Smoking/Tobacco Use Status: Never Smoking risk assessment performed?: Yes Alcohol Intake: never Drug use: Never Substance use type: does not use Housing: usp Do you feel safe at home: Yes Do you feel safe in your relationship?: Yes Additional Social history: [facility] Meds Allergies and Home Medications Allergies Allergy/AdvReac Type Severity Reaction Status Date / Time sulfamethoxazole (From Allergy Diarrhea Verified 02/04/25 12:44 Bactrim) trimethoprim (From Bactrim) Allergy Diarrhea Verified 02/04/25 12:44 morphine AdvReac Intermediate Psychosis Verified 02/04/25 12:44 baclofen AdvReac Unknown Unknown Verified 02/04/25 12:44 chlorthalidone AdvReac Unknown Unknown Verified 02/04/25 12:44 codeine AdvReac Unknown Unknown Verified 02/04/25 12:44 dextromethorphan AdvReac Unknown Unknown Verified 02/04/25 12:44 gabapentin (From Neurontin) AdvReac Unknown Unknown Verified 02/04/25 12:44 hydrochlorothiazide AdvReac Unknown Unknown Verified 02/04/25 12:44 pregabalin AdvReac Unknown Dopey Verified 02/04/25 12:44 Home Medications ?Medication ?Instructions ?Recorded ?Confirmed ?Type omeprazole 40 mg capsule,delayed 40 mg PO DAILY 05/19/14 02/04/25 History release vitamin B complex 1 tab PO DAILY 01/05/20 02/04/25 History aspirin 81 mg tablet,delayed 81 mg PO DAILY 06/23/21 02/04/25 History release amlodipine 10 mg tablet 10 mg PO DAILY 01/14/22 02/04/25 History naloxone 4 mg/actuation nasal spray 4 mg intranasal ONCE PRN 07/16/23 02/04/25 History atorvastatin 20 mg tablet 20 mg PO QPM #30 tabs 08/23/24 02/04/25 Rx acetaminophen 325 mg tablet 650 mg (2 x 325 mg) PO QID #30 tabs 09/01/24 02/04/25 Rx mirtazapine 15 mg tablet 15 mg PO HS #30 tabs 09/01/24 02/04/25 Rx multivit with mins-ferrous sulf 15 1 packet PO TID #30 ea 09/01/24 02/04/25 Rx mg-folic 700 mcg oral powder packet (Phlexy-Vits) nitrofurantoin macrocrystal 100 mg 100 mg PO DAILY 12/21/24 02/04/25 History capsule levetiracetam 500 mg tablet 500 mg PO BID #1 tab 01/29/25 02/04/25 Rx lorazepam 1 mg tablet 1 mg PO BID PRN 01/29/25 02/04/25 History oxycodone 5 mg tablet See Rx Instructions PO BID PRN 01/29/25 02/04/25 History risperidone 1 mg tablet 1 mg PO BID 01/29/25 02/04/25 History azithromycin 250 mg tablet See Rx Instructions PO .COMPLEX #6 02/04/25 Rx tabs Exam Narrative Exam Narrative: General: This is an elderly woman in no acute distress. HEENT: Normocephalic, atraumatic CV: RRR Resp: CTAB Abd: NTND MSK: voluntary motion x4 Neuro: awake, alert, responsive but minimally verbal and minimally interactive. Results Labs 02/04/25 13:19 02/04/25 13:19 Labs: Laboratory Results - last 24 hr 02/04/25 02/04/25 02/04/25 13:19 14:50 16:14 WBC 3.83 L RBC 3.42 L Hgb 9.5 L Hct 30.4 L MCV 89 MCH 27.8 MCHC 31.3 L RDW 15.0 H Plt Count 201 MPV 9.4 Immature Gran % 0.5 Neutrophils % 66.6 Lymphocytes % 15.1 Monocytes % 15.7 Eosinophils % 1.3 Basophils % 0.8 Nucleated RBC % 0.0 Absolute Neutrophils 2.55 Absolute Lymphocytes 0.58 L Absolute Monocytes 0.60 Absolute Eosinophils 0.05 Absolute Basophils 0.03 VBG Lactate 1.7 Sodium 143 Potassium 3.7 Chloride 105 Carbon Dioxide 30.8 Anion Gap 7.2 BUN 21 H Creatinine 0.7 Est GFR (CKD-EPI 2020) 89.58 Glucose 111 H Calcium 9.3 Magnesium 1.9 Total Bilirubin 0.5 AST 19 ALT 17 Alkaline Phosphatase 79 Creatine Kinase 34 Troponin I 13 35 45 Total Protein 8.1 Albumin 3.2 L Lipase 43 Last Vital Signs Temp 36.9 C 02/04/25 15:31 Pulse 89 02/04/25 17:30 Resp 16 02/04/25 17:30 BP 159/96 H 02/04/25 17:30 Pulse Ox 95 02/04/25 17:30 Time Spent Time spent with Patient: 40-54 minutes Time was spent: preparing to see the patient(eg.review tests), obtaining and/or reviewing separately otained hiistory, ordering medications,tests, procedures, referring, communicating with other health home care manager rn, indepentently interpreting results, counseling the patient and care coordination
[2025-02-04 20:41] LABS: MRSA PCR Negative (Negative)
[2025-02-04] MEDS: levETIRAcetam 500 MG TAB PO (21:10)
[2025-02-04] MEDS: Mirtazapine 15 MG TAB PO (21:10)
[2025-02-04] MEDS: Acetaminophen 325 MG TAB 650 MG PO (21:10)
[2025-02-04] MEDS: risperiDONE 1 MG TAB PO (21:10)
[2025-02-04] MEDS: LORazepam 1 MG TAB PO (21:10)
--- NOTE | 2025-02-04 22:03 | W.PC.ACHO ---
Registration Status: ADM MANJIT Primary Language: Preferred Language: Bulgarian ED Information & Data Chief Complaint GenMedical 02/04/25 14:42 Triage Note pt came from eating dinner 02/04/25 12:20 secondary to aspiration on pasta pt non-verbal at baseline Medical / Surgical History (Last Updated 10/14/24 @ 13:41 by Barby Carter RN) Low magnesium level UTI (urinary tract infection) Encephalopathy Seizure Psychiatric symptoms Ambulatory dysfunction AMS (altered mental status) Rhabdomyolysis Fall Primary osteoarthritis of left knee Osteoarthritis of right knee Chronic pain syndrome Left elbow contusion Muscle weakness Tendonitis of left rotator cuff Recurrent UTI (urinary tract infection) Hypomagnesemia Primary osteoarthritis, left shoulder Left rotator cuff tear arthropathy Impacted cerumen of both ears Bilateral sensorineural hearing loss Pneumonia Left displaced femoral neck fracture (09/16/20) Fracture of left hip CVA (cerebral vascular accident) Recurrent UTI IBS (irritable bowel syndrome) Urge incontinence Chronic constipation Chronic insomnia (Last Reviewed 08/28/24 @ 21:06 by Bela Goel NP) S/P cervical spinal fusion History of total left hip replacement (09/17/20) History of back surgery Hx of cholecystectomy Most Recent Vital Signs Temperature 36.3 C L 02/04/25 20:26 Temperature Source Tympanic 02/04/25 20:26 Pulse 85 02/04/25 20:26 Pulse Rhythm Regular 02/04/25 20:18 Pulse 83 02/04/25 17:50 Respiratory Rate 18 02/04/25 20:26 Respiratory Effort Normal 02/04/25 20:18 Respiratory Depth Normal 02/04/25 20:18 Respiratory Pattern Normal 02/04/25 20:18 Blood Pressure 151/81 H 02/04/25 20:26 Blood Pressure Mean 104 02/04/25 20:26 Pulse Oximetry 94 02/04/25 20:26 Oxygen Delivery Method Room Air 02/04/25 20:26 Oxygen Flow Rate 0 02/04/25 20:26 Pain Level 9 02/04/25 21:10 Allergies sulfamethoxazole (From Bactrim) Allergy (Verified 02/04/25 12:44) Diarrhea trimethoprim (From Bactrim) Allergy (Verified 02/04/25 12:44) Diarrhea morphine Adverse Reaction (Intermediate, Verified 02/04/25 12:44) Psychosis baclofen Adverse Reaction (Unknown, Verified 02/04/25 12:44) Unknown chlorthalidone Adverse Reaction (Unknown, Verified 02/04/25 12:44) Unknown codeine Adverse Reaction (Unknown, Verified 02/04/25 12:44) Unknown dextromethorphan Adverse Reaction (Unknown, Verified 02/04/25 12:44) Unknown gabapentin (From Neurontin) Adverse Reaction (Unknown, Verified 02/04/25 12:44) Unknown hydrochlorothiazide Adverse Reaction (Unknown, Verified 02/04/25 12:44) Unknown pregabalin Adverse Reaction (Unknown, Verified 02/04/25 12:44) Karina Active Medications Generic Name Dose Route Start Last Admin Trade Name Freq PRN Reason Stop Dose Admin Acetaminophen 650 mg 02/04/25 18:56 02/04/25 21:10 Acetaminophen 325 Mg Tab PO 650 mg Q4H PRN PRN Administration Levetiracetam 500 mg 02/04/25 20:00 02/04/25 21:10 Levetiracetam 500 Mg Tab PO 500 mg BID MONSE Administration Lorazepam 1 mg 02/04/25 19:06 02/04/25 21:10 Lorazepam 1 Mg Tab PO 1 mg BID PRN PRN Administration Mirtazapine 15 mg 02/04/25 20:00 02/04/25 21:10 Mirtazapine 15 Mg Tab PO 15 mg HS MONSE Administration Risperidone 1 mg 02/04/25 20:00 02/04/25 21:10 Risperidone 1 Mg Tab PO 1 mg BID MONSE Administration IV IV Catheter Type [Right Peripheral IV Antecubital] IV Catheter Gauge [Right 18 Antecubital] Diet Orders Category Date Time Status Nothing Per Oral [DIET] Nutrition 02/04/25 18:58 Active Diagnostics 02/04/25 02/04/25 02/04/25 Range/Units 19:21 16:14 14:50 WBC (4.4-10.8) 10^3/uL RBC (3.93-5.22) 10^6/uL Hgb (11.2-15.7) g/dL Hct (36.0-46.0) % MCV (80-95) fL MCH (27.0-33.0) pg MCHC (32.0-36.0) % RDW (11.7-14.6) % Plt Count (130-400) 10^3/uL MPV (8.0-11.0) fL Immature Gran % % Neutrophils % % Lymphocytes % % Monocytes % % Eosinophils % % Basophils % % Nucleated RBC % (0.0-0.3) % Absolute Neutrophils (1.2-6.7) 10^3/uL Absolute Lymphocytes (1.2-3.4) 10^3/uL Absolute Monocytes (0.1-0.8) 10^3/uL Absolute Eosinophils (0.0-0.7) 10^3/uL Absolute Basophils (0.0-0.2) 10^3/uL VBG Lactate (<or=2.0) mmol/L Sodium (136-145) mmol/L Potassium (3.5-5.1) mmol/L Chloride (98-107) mmol/L Carbon Dioxide (21.0-32.0) mmol/L Anion Gap (3-11) mmol/L BUN (7-18) mg/dL Creatinine (0.55-1.02) mg/dL Est GFR (CKD-EPI 2020) (mL/min/1.73m2) Glucose (74-106) mg/dL Calcium (8.5-10.1) mg/dL Magnesium (1.8-2.4) mg/dL Total Bilirubin (0.2-1.0) mg/dL AST (15-37) U/L ALT (14-59) U/L Alkaline Phosphatase (46-116) U/L Creatine Kinase 34 (26-192) U/L Troponin I 45 35 (<or=51) ng/L Total Protein (6.4-8.2) g/dL Albumin (3.4-5.0) g/dL Lipase (<78) U/L MRSA (TEM-PCR) Negative (Negative) 02/04/25 Range/Units 13:19 WBC 3.83 L (4.4-10.8) 10^3/uL RBC 3.42 L (3.93-5.22) 10^6/uL Hgb 9.5 L (11.2-15.7) g/dL Hct 30.4 L (36.0-46.0) % MCV 89 (80-95) fL MCH 27.8 (27.0-33.0) pg MCHC 31.3 L (32.0-36.0) % RDW 15.0 H (11.7-14.6) % Plt Count 201 (130-400) 10^3/uL MPV 9.4 (8.0-11.0) fL Immature Gran % 0.5 % Neutrophils % 66.6 % Lymphocytes % 15.1 % Monocytes % 15.7 % Eosinophils % 1.3 % Basophils % 0.8 % Nucleated RBC % 0.0 (0.0-0.3) % Absolute Neutrophils 2.55 (1.2-6.7) 10^3/uL Absolute Lymphocytes 0.58 L (1.2-3.4) 10^3/uL Absolute Monocytes 0.60 (0.1-0.8) 10^3/uL Absolute Eosinophils 0.05 (0.0-0.7) 10^3/uL Absolute Basophils 0.03 (0.0-0.2) 10^3/uL VBG Lactate 1.7 (<or=2.0) mmol/L Sodium 143 (136-145) mmol/L Potassium 3.7 (3.5-5.1) mmol/L Chloride 105 (98-107) mmol/L Carbon Dioxide 30.8 (21.0-32.0) mmol/L Anion Gap 7.2 (3-11) mmol/L BUN 21 H (7-18) mg/dL Creatinine 0.7 (0.55-1.02) mg/dL Est GFR (CKD-EPI 2020) 89.58 (mL/min/1.73m2) Glucose 111 H (74-106) mg/dL Calcium 9.3 (8.5-10.1) mg/dL Magnesium 1.9 (1.8-2.4) mg/dL Total Bilirubin 0.5 (0.2-1.0) mg/dL AST 19 (15-37) U/L ALT 17 (14-59) U/L Alkaline Phosphatase 79 (46-116) U/L Creatine Kinase (26-192) U/L Troponin I 13 (<or=51) ng/L Total Protein 8.1 (6.4-8.2) g/dL Albumin 3.2 L (3.4-5.0) g/dL Lipase 43 (<78) U/L MRSA (TEM-PCR) (Negative) Intake and Output - 24 Hour Total 02/04/25 12:17 thru 02/04/25 21:20 Intake Total 400 Balance 400 Weight 54.4 kg Intake: IV 100 Oral 300 Other: Urine Appearance Clear Falls Risk Assessment History of Falls Previous History 02/04/25 20:18 Contributing Factors Confusion,Impairments, 02/04/25 20:18 Incontinence Ambulatory Aids Uses ambulatory device + 02/04/25 20:18 Tubes/Lines None 02/04/25 20:18 Gait Evaluation W/any additional score 02/04/25 13:00 Cognition Cognitive impairment 02/04/25 20:18 Fall Total Score 69 02/04/25 20:18 Level of Risk High Risk 02/04/25 20:18 Problems (Last Updated 10/14/24 @ 13:41 by Barby Carter RN) Elevated troponin level not due myocardial infarction (Acute) Notes 02/04/25 17:23 Nursing Notes by Cindy Lopez 15:00 This rn and Lucía LAGUNAS changed pt and provided hygiene. Pt now in clean and new diaper. Nursing Note: Initialized on 02/04/25 17:23 - END OF NOTE v v v v v v v v v Sending and/or Receiving Nurses: Please use comment section below to note any information pertinent to the patient hand-off not included above. Information / Comments: pt. transfer from ED via stretcher to Room 229 . Alert &confused . VSS RA denied SOB N/V incontinent . pt on bed Bed Alarm in placed Near to the Nursing station . Report received from:Addy
[2025-02-05 06:46] LABS: Troponin I 42 ng/L (<or=51)
[2025-02-05 08:43] VITALS: BP 148/89; PULSE 67; RESP 16; TEMP 36.4; O2SAT 96
[2025-02-05] MEDS: levETIRAcetam 500 MG TAB PO ×2 (11:00→19:57)
[2025-02-05] MEDS: risperiDONE 1 MG TAB PO ×2 (11:00→19:57)
[2025-02-05] MEDS: amLODIPine 10 MG TAB PO (11:00)
[2025-02-05] MEDS: Aspirin E.C. 81 MG TABEC PO (11:00)
[2025-02-05] MEDS: Omeprazole 20 MG CAPCR 40 MG PO (11:01)
--- NOTE | 2025-02-05 11:40 | SP_ITS ---
Date of service: 02/05/25 Time of Service: 11:00 Objective Objective Bedside) Swallow Evaluation - Inpatient Speech Language Pathology Referred by: Dr Thomas Stiles Referral Type: Urgent Swallow Consult; NPO pending TABLE WORKER eval Precautions: Standard, Fall, DNR/DNI Reason for Referral/HPI: Tegan Ashton is a 74 yo female with PMH significant for hx CVA, dementia, psychiatric illness, with history of chronic dysphagia/aspiration. Tegan currently lives at [facility] since this past August. She is familiar to this department from prior admissions. At last TABLE WORKER eval in August 2024 she was recommended to follow a Soft & Bite Size Diet & Mildly Thick Liquids. She presents today after choking/aspiration event while eating spaghetti. CXR 02/04/25 showed no acute abnormality. TABLE WORKER IMPRESSIONS & RECOMMENDATIONS: Patient presents with chronic oral pharyngeal dysphagia likely exacerbated in the setting of deconditioned status. She was alert during time of assessment; initially she was only repeating 'UMMM but towards end of session vocalized additional responses appropriately- 'yes', 'no', 'juice'. She presents with prolonged oral phase, notably delayed swallow initiation, and suspected decreased hyolaryngeal movement. This results in suspected penetration vs aspiration with thin liquids (wet cough appreciated) and some oral pocketing. She tolerated mildly thick liquids and minced/moist solids very well when bite/sip size and rate are controlled. Where choking/aspiration event occurred on spaghetti, unclear if dysphagia diet recommendations were in place at SNF. Tegan may benefit from MBSS which has been recommended in the past, though weakness and fluctuating alertness remains a barrier for completion and thus will hold at this time. While her risk for aspiration/choking remains chronic, I do anticipate risks are notably mitigated when diet modifications and aspiration precautions are in place. RECOMMENDATIONS Diet modification is indicated as follows for the purpose of: reduced risk of aspiration, choking, and oral/pharyngeal residue as well as to optimize energy conservation and compensate for reduce mastication abilities. Diet Recommendations: ? SOLIDS: 5-Minced & Moist Solids LIQUIDS: 2-Mildly Thick Liquids MEDICATIONS: Whole or cut in applesauce, one at a time Level of Assistance/Supervision: 1:1Assistive feeding only by trained staff/family Positioning and environment: PO intake only when awake/alert? Upright as able for all PO intake. Remain upright at least 30 min after meal Oral hygiene Before/after PO intake Use swab around oral cavity to ensure no oral pocketing Strategies/Adaptations/Assistive Equipment: Pinch/remove straw to control for very small sips Small bites FURTHER INPATIENT TABLE WORKER SERVICES: Patient to be followed while on unit. Suggested Referrals/Consults: N/A Consider the Following Procedures: Will continue to monitor indications for MBSS, though potential barriers to participation include fluctuating alertness and weakness. Discharge Recommendations: Recommend TABLE WORKER services at her detention facility SUBJECTIVE: Patient received: alert/awake, lethargic, Agreeable to evaluation. Pain Reported None OBJECTIVE Patient positioning: As upright as possible using HOB/bed tilt controls Oral care: TABLE WORKER completed oral care before and after PO trials Respiratory status: Room air Orientation/Mental status: Unable to assess due to limited vocalizations Oral Mechanism Examination: Unable to fully assess d/t patient participation. Natural upper/lower dentition. Dried secretions initially. ? Trials Assessed: Ice chips IDDSI 0 Thin Liquids IDDSI 2 Mildly Thick Liquid IDDSI 4 Puree Solid IDDSI 5 Minced and Moist Solid [facility] [place] [facility] at a time Oral Phase Findings: Difficulty with a-p transport Difficulty chewing Residue along roof of mouth and bilateral buccal cavities Pharyngeal Phase Findings: Delayed swallow initiation Reduced hyolaryngeal elevation/excursion Cough consistently after swallow with thin liquid via straw and spoon Cough x1 only with mildly thick liquid via straw, after larger sip. Otherwise no overt s/s aspiration with 4oz mildly thick juice via straw. Esophageal Phase Findings: No observed or reported symptoms at bedside Education Provided to: Nursing Topics Addressed: TABLE WORKER findings, aspiration precautions, diet recommendations PLAN: Frequency: 2-3x/week for 1-2 weeks Goals: Psychiatric Technician Assistant Goals: Patient will remain free from aspiration-related illness, malnutrition, and dehydration. Short Term Goals: Patient will tolerate Minced & Moist Diet and Mildly Thick liquids without overt s/s aspiration across 2/2 visits. TABLE WORKER CPT Code: 86420 Clinical Swallowing Evaluation Start time: 11:00 End time: 11:35 Total patient contact: 35 minutes
[2025-02-05] MEDS: Acetaminophen 325 MG TAB 650 MG PO ×2 (13:07→21:51)
--- NOTE | 2025-02-05 15:15 | PGE_ITS ---
Date of Service Date of service: 02/05/25 Time of Service: 15:17 Assessment and Plan Assessment and plan (1) Aspiration of food: Status: Acute Assessment and plan: - Reportedly aspirated spaghetti while eating at the residential, received Heimlich maneuver - Given concern for dysphagia, patient was seen by speech therapy who recommended minced and moist solids with mildly thick liquids, medications whole or cut in applesauce, wanted a time - Patient otherwise at baseline - Will monitor patient for an additional night given concern for aspiration pneumonitis/pneumonia (2) Elevated troponin level not due myocardial infarction: Status: Acute Assessment and plan: -Likely very mild demand ischemia, peaked at 45 - Down to 42 on the morning of 02/05/2025 (3) Hypertension: Status: Chronic Assessment and plan: -Continue home regimen (4) Major depression, recurrent, chronic: Status: Acute Assessment and plan: -Continue home regimen (5) Dementia: Status: Chronic Assessment and plan: -Continue home mirtazapine Subjective Subjective Interval history since last seen: Patient remains in minimally verbal, does not appear to be in any acute distress at this time and does not vocalize any distress. Exam Narrative Exam Narrative: Elderly female sitting up in the chair in no acute distress, awake, alert, oriented to name only, heart regular rate rhythm, lungs clear to auscultation bilaterally, abdomen soft, nontender, nondistended Objective Last Vital Signs Temp 97.5 F L 02/05/25 08:43 Pulse 67 02/05/25 08:43 Resp 16 02/05/25 08:43 BP 148/89 H 02/05/25 08:43 Pulse Ox 96 02/05/25 08:43 Laboratory Results - last 24 hr 02/04/25 02/04/25 02/04/25 14:50 16:14 19:21 Creatine Kinase 34 Troponin I 35 45 MRSA (TEM-PCR) Negative 02/05/25 05:58 Creatine Kinase Troponin I 42 MRSA (TEM-PCR) Time Spent with Patient Time Spent with Patient: >50 minutes Time was spent: preparing to see the patient(eg.review tests), obtaining and/or reviewing separately otained hiistory, ordering medications,tests, procedures, referring, communicating with other health manager managed care, indepentently interpreting results, counseling the patient and care coordination
--- NOTE | 2025-02-05 16:16 | PDOC.CMIN ---
Date of service: 02/05/25 Time of Service: 11:00 Care Management Initial Assmt Initial Assessment Reason for Hospitalization: ? aspiration Functional Status/Living Situation Patient Presentation: Tegan presented to the ED yesterday afternoon with a question of having aspirated some pasta at lunch She was ruled out for pneumonia, but was admitted for further observation, antibiotics, and a speech language pathology consult. 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 Sera doesn't talk much, but she denied pain and stated that she would like some juice. Tegan is a current resident of [facility]. Her ultimate goal is to return home, but she is currently not capable of living alone. Town of Residence: [facility] Resides with: Other (Lives at [facility]) Significant Other/Family: Out of area (children Renetta and Amor are in [place], but not immediately local. 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) Instrumental Activities of Daily Living (ADLs): Requires support Physical Functioning/Mobility Assistive Device: walker, wheelchair Advance Directives Advance Directives: Do you have an Advance Directive: Y 11/06/12, 18:01 AD On File at [facility]: Y 09/16/20, 21:57 Date Asked 01/13/25 01/13/25, 11:39 AD Date Reviewed 02/04/25 02/04/25, 12:34 COLST On File at [facility] Yes 08/19/24, 09:20 COLST Date Scanned 05/06/24 08/19/24, 09:20 Code Status Resuscitation Status DNR/DNI Insurance Coverage/Financial Issues Insurance: Medicare Part A & B - Medicaid of [place]? Care Team Visit Care Team Role Provider Type Alverto Fuller MD MD [facility] STAFF PHYSICIAN Marixa Kurtz Primary Care Provider NON-[facility] STAFF PHYSICIAN Dena Sequeira, STUDIO SET UP WORKER Other Providers SPEECH LANGUAGE PATHOLOGIST Evon Yee, STUDIO SET UP WORKER Other Providers SPEECH LANGUAGE PATHOLOGIST Barby Casillas Other Providers SPEECH LANGUAGE PATHOLOGIST Frances Drew, STUDIO SET UP WORKER Other Providers SPEECH LANGUAGE PATHOLOGIST Michelle Mendez, STUDIO SET UP WORKER Other Providers SPEECH LANGUAGE PATHOLOGIST Bela Goel, SUDHIR Emergency Provider NURSE PRACTITIONER Thomas Stiles MD Admit Provider [facility] STAFF PHYSICIAN Attending Provider Other: Dr. Adkins, Palliative care Discharge Potential Discharge Needs: Other (facility provider follow up) Anticipated Barriers to Discharge: None Identified Patient/Family Education Needs: Review discharge instructions, discuss Ask Me Three Transportation: [facility] RCT Transportation: Wheel chair van Plan: Anticipate that Tegan will transfer back to [facility] for Living tomorrow morning. She will f/u with the facility provider and continue per her plan of care. She will transport via [facility] wheel chair van. CM will continue to follow. Social Determinants of Health Screening Will the Patient Participate in the Screening?: Unable to obtain Do you worry about having a steady place to live?: choose not to answer In the past 12 months, have you had to go without electric, gas, oil or water in your home?: choose not to answer Has lack of transportation kept you from medical appointments or from doing things needed for daily living?: choose not to answer Has anyone in your life made you feel unsafe or unsupported?: choose not to answer Comments: pt. non verbal Health Related Social Needs Health related social needs: material hardship(utilities) (Z59.12) Health related social needs details: pt. non verbal PFSH All Active Problems (Updated 02/05/25 @ 01:04 by Thomas Stiles MD) Major depression, recurrent, chronic (Acute) Aspiration into airway (Acute) Elevated troponin level not due myocardial infarction (Acute) Aspiration of food (Acute) Palliative care patient (Acute) ACP (advance care planning) (Acute) DNR (do not resuscitate) (Acute) Delusions (Acute) Dementia (Chronic) Bladder mass (Acute) Chronic back pain (Acute) Cystic mass of pancreas (Acute) Abnormal finding on CT scan (Acute) [place] coma scale score 3-8, at arrival to emergency department (Acute) Altered mental status (Acute) Encephalopathy (Acute) Acute UTI (Acute) Altered mental status (Acute) Failure to thrive in adult (Acute) Weakness (Acute) Falls frequently (Acute) Trouble talking (Acute) Acute UTI (Acute) Acute kidney injury superimposed on CKD (Acute) Lives in correction (Acute) Deficit in activities of daily living (ADL) (Acute) Closed fracture of distal end of radius (Acute) Closed fracture of left distal radius (Acute) Closed fracture of right distal radius (Acute) Heart murmur (Acute) Depression (Chronic) At high risk for skin breakdown (Acute) Periorbital edema (Acute) Hiatal hernia (Chronic) moderate Coronary artery calcification seen on CAT scan (Acute) Diverticula of colon (Acute) DJD (degenerative joint disease), lumbar (Acute) History of CVA (cerebrovascular accident) (Acute) remote Fracture of both wrists (Acute) Goiter (Acute) Fibromyalgia (Chronic) KWAME (obstructive sleep apnea) (Chronic) Chronic pain (Chronic) Movement disorder (Acute) Chronic renal insufficiency, stage III (moderate) (Acute) Anemia (Chronic) Hypertension (Chronic) Medical History (Updated 02/05/25 @ 01:04 by Thomas Stiles MD) Low magnesium level UTI (urinary tract infection) Encephalopathy Seizure Psychiatric symptoms Ambulatory dysfunction AMS (altered mental status) Rhabdomyolysis Fall Primary osteoarthritis of left knee We will see the patient back in 4-1/2 months for possible repeat Synvisc 1 in her left knee would consider x-ray in her right knee if she is still significantly symptomatic Osteoarthritis of right knee Steroid injection: 04/05/2020 Has had previous viscosupplementation injections. 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) As treatment for a femoral neck fracture (DOI: 09/16/2020) History of back surgery Hx of cholecystectomy Social History Smoking/Tobacco Use Status: Never Smoking risk assessment performed?: Yes Alcohol Intake: never Drug use: Never Substance use type: does not use Housing: correction Do you feel safe at home: Yes Do you feel safe in your relationship?: Yes Additional Social history: health and rehab
[2025-02-05 19:47] VITALS: BP 149/83; PULSE 88; RESP 20; TEMP 37.1; O2SAT 97
[2025-02-05] MEDS: Mirtazapine 15 MG TAB PO (19:57)
[2025-02-05] MEDS: LORazepam 1 MG TAB PO (22:16)
[2025-02-06 07:26] VITALS: BP 140/78; PULSE 76; RESP 16; TEMP 36.3; O2SAT 97
--- NOTE | 2025-02-06 09:09 | DSE_ITS ---
Date of service: 02/06/25 Time of Service: 09:09 DS: Diagnosis Discharge Diagnosis (1) Aspiration of food: Status: Acute (2) Elevated troponin level not due myocardial infarction: Status: Acute (3) Hypertension: Status: Chronic (4) Major depression, recurrent, chronic: Status: Acute (5) Dementia: Status: Chronic Discharge Plan Disposition Patient Disposition: [facility] Facility(SNF) Condition: Stable Condition: Good Discharge Details Reason For Visit: dysphagia Admit Date/Time: 02/04/25 18:56 Admit Provider: Thomas Stiles Attending Provider: Thomas Stiles Primary Care Provider: Marixa Kurtz [facility] Course Hospital Course: Patient initially presented after witnessed aspiration at senior care where Heimlich was performed. On arrival patient had normal vital signs, normal imaging, and was observed for signs of aspiration pneumonitis or pneumonia neither of which occurred. She was seen by speech therapy who recommended changing her diet to minced and moist solids with mildly thick liquids, and whole or cut medications in applesauce given 1 at a time. Otherwise, patient was medically stable during hospitalization and was ultimately determined to be ready for discharge back to [facility]. Home Meds and New Rx's Prescriptions: New azithromycin 250 mg tablet See Rx Instructions .ROUTE .COMPLEX Qty: 6 0RF Rx Instructions: For 250 mg dose pack: take 500 mg today (day 1), then 250 mg for 4 days (days 2-5) Continued oxycodone 5 mg tablet See Rx Instructions PO BID PRN Rx Instructions: 1 BID and addl 1 is needed orally twice a day PRN; lorazepam 1 mg tablet 1 mg PO BID PRN levetiracetam 500 mg tablet 500 mg PO BID Qty: 1 0RF aspirin 81 mg tablet,delayed release (DR/EC) 81 mg PO DAILY omeprazole 40 MG capsule,delayed release(DR/EC) 40 mg PO DAILY vitamin B complex Tablet 1 tab PO DAILY acetaminophen 325 mg Tablet 650 mg PO QID Qty: 30 0RF mirtazapine 15 mg Tablet 15 mg PO HS Qty: 30 0RF Phlexy-Vits 15 mg- 700 mcg Powder In Packet 1 packet PO TID Qty: 30 0RF amlodipine 10 mg tablet 10 mg PO DAILY naloxone 4 mg/actuation spray,non-aerosol 4 mg INTRANASAL ONCE PRN Patient Comments: ADMINISTER 1 SPRAY INTO ONE NOSTRIL A SINGLE DOSE NEEDED FOR EXCESSIVE SEDATION atorvastatin 20 mg Tablet 20 mg PO QPM Qty: 30 0RF risperidone 1 mg tablet 1 mg PO BID Patient Comments: TAKE ONE TABLET BY MOUTH AT BEDTIME nitrofurantoin macrocrystal 100 mg capsule 100 mg PO DAILY Discharge Instructions Instructions: Aspiration pneumonia, Azithromycin (Systemic) Referrals: Marixa Kurtz [Primary Care Provider, Medicine] Activity:: Activity as Tolerated Equipment/Supplies:: No Equipment Needed Diet:: minced & moist solids, mildly thick liq, whole/cut medications in apple corey Discharge Orders Discharge Orders: Discharge Order (Routine); Ordered 02/06/25 Ordered By: Alverto Fuller DS: Summary Time Spent with Patient providing and/or coordinating discharge services: Greater than 30 minutes Status at Discharge Functional status at discharge: independent ambulation Overall status at discharge: patient is back to baseline Mental Status: mental status grossly normal Speech and Movement: speech and movement normal Mood: congruent mood Affect: normal affect Quality:SDOH Health Related Social Needs: Health related social needs material hardship Health related social needs details pt. non verbal Health related social needs details: pt. non verbal Exam Narrative Exam Narrative: Elderly female sitting up in the chair in no acute distress, awake, alert, oriented to name only, heart regular rate rhythm, lungs clear to auscultation bilaterally, abdomen soft, nontender, nondistended Psych Mental Status: mental status grossly normal Speech and Movement: speech and movement normal Mood: congruent mood Affect: normal affect DS: Data Vitals/I&O Vitals and I&O: Vital Signs Temperature 97.3 F L 02/06/25 07:26 Temperature Source Temporal Artery Scan 02/06/25 07:26 Pulse 76 02/06/25 07:26 Pulse Rhythm Regular 02/04/25 20:18 Pulse 83 02/04/25 17:50 Respiratory Rate 16 02/06/25 07:26 Respiratory Effort Normal 02/04/25 20:18 Respiratory Depth Normal 02/04/25 20:18 Respiratory Pattern Normal 02/04/25 20:18 Blood Pressure 140/78 02/06/25 07:26 Blood Pressure Mean 98 02/06/25 07:26 Pulse Oximetry 97 02/06/25 07:26 Oxygen Delivery Method Room Air 02/06/25 07:26 Oxygen Flow Rate 0 02/06/25 07:26 Pain Level 9 02/06/25 07:26 Intake & Output 02/05/25 02/06/25 02/06/25 17:59 05:59 17:59 Intake Total 100 / 100 Balance 100 / 100 Intake: Oral 100 / 100 Other: Comment dry at this time CHRIS Stool Size Moderate Stool Characteristics Hard PFSH All Active Problems (Updated 02/05/25 @ 01:04 by Thomas Stiles MD) Major depression, recurrent, chronic (Acute) Aspiration into airway (Acute) Elevated troponin level not due myocardial infarction (Acute) Aspiration of food (Acute) Palliative care patient (Acute) ACP (advance care planning) (Acute) DNR (do not resuscitate) (Acute) Delusions (Acute) Dementia (Chronic) Bladder mass (Acute) Chronic back pain (Acute) Cystic mass of pancreas (Acute) Abnormal finding on CT scan (Acute) [place] coma scale score 3-8, at arrival to emergency department (Acute) Altered mental status (Acute) Encephalopathy (Acute) Acute UTI (Acute) Altered mental status (Acute) Failure to thrive in adult (Acute) Weakness (Acute) Falls frequently (Acute) Trouble talking (Acute) Acute UTI (Acute) Acute kidney injury superimposed on CKD (Acute) Lives in senior care (Acute) Deficit in activities of daily living (ADL) (Acute) Closed fracture of distal end of radius (Acute) Closed fracture of left distal radius (Acute) Closed fracture of right distal radius (Acute) Heart murmur (Acute) Depression (Chronic) At high risk for skin breakdown (Acute) Periorbital edema (Acute) Hiatal hernia (Chronic) moderate Coronary artery calcification seen on CAT scan (Acute) Diverticula of colon (Acute) DJD (degenerative joint disease), lumbar (Acute) History of CVA (cerebrovascular accident) (Acute) remote Fracture of both wrists (Acute) Goiter (Acute) Fibromyalgia (Chronic) KWAME (obstructive sleep apnea) (Chronic) Chronic pain (Chronic) Movement disorder (Acute) Chronic renal insufficiency, stage III (moderate) (Acute) Anemia (Chronic) Hypertension (Chronic) Medical History (Updated 02/05/25 @ 01:04 by Thomas Stiles MD) Low magnesium level UTI (urinary tract infection) Encephalopathy Seizure Psychiatric symptoms Ambulatory dysfunction AMS (altered mental status) Rhabdomyolysis Fall Primary osteoarthritis of left knee We will see the patient back in 4-1/2 months for possible repeat Synvisc 1 in her left knee would consider x-ray in her right knee if she is still significantly symptomatic Osteoarthritis of right knee Steroid injection: 04/05/2020 Has had previous viscosupplementation injections. 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) As treatment for a femoral neck fracture (DOI: 09/16/2020) History of back surgery Hx of cholecystectomy Social History Smoking/Tobacco Use Status: Never Smoking risk assessment performed?: Yes Alcohol Intake: never Drug use: Never Substance use type: does not use Housing: senior care Do you feel safe at home: Yes Do you feel safe in your relationship?: Yes Additional Social history: health and rehab Time Spent with Patient Time Spent with Patient: <45 minutes Time was spent: preparing to see the patient(eg.review tests), obtaining and/or reviewing separately otained hiistory, ordering medications,tests, procedures, referring, communicating with other health home child care provider, indepentently interpreting results, counseling the patient and care coordination
[2025-02-06] MEDS: amLODIPine 10 MG TAB PO (09:25)
[2025-02-06] MEDS: risperiDONE 1 MG TAB PO (09:26)
[2025-02-06] MEDS: Omeprazole 20 MG CAPCR 40 MG PO (09:26)
[2025-02-06] MEDS: Aspirin E.C. 81 MG TABEC PO (09:26)
[2025-02-06] MEDS: levETIRAcetam 500 MG TAB PO (09:26)
--- NOTE | 2025-02-06 09:30 | CMDISCH_ITS ---
Date of service: 02/06/25 Time of Service: 09:30 LACE Index Scoring Tool Questions: Length of Stay (in days): 2 Was the patient admitted via the E.D.?: Yes Comorbidities: Cerebrovascular Disease and Liver or Renal Disease E.D. Visits: 5 Answers: Total Score: 14 Risk of Readmission: High Risk Care Management Discharge Plan Reason for Hospitalization: aspiration Discharge Plan: Tegan will discharge back to [facility] for [facility] later this morning. She will f /u with the facility provider and continue per her plan of care. She will transport via [facility] wheelchair van. Patient/Family Education Needs: Review of discharge instructions, activity, limitations and discuss Ask me 3. SDOH Health Related Social Needs: Health related social needs material hardship Health related social needs details pt. non verbal Health related social needs details: pt. non verbal
--- NOTE | 2025-02-06 10:15 | W.SUR.HO ---
Registration Status: ADM MANJIT Primary Language: Preferred Language: Kyrgyz v v v v v v v v v Sending and/or Receiving Nurses: Please use comment section below to note any information pertinent to the patient hand-off not included above. Information / Comments: Report received from: Active Medications Generic Name Dose Route Start Last Admin Trade Name Freq PRN Reason Stop Dose Admin Acetaminophen 650 mg 02/04/25 18:56 02/05/25 21:51 Acetaminophen 325 Mg Tab PO 650 mg Q4H PRN PRN Administration Amlodipine Besylate 10 mg 02/05/25 08:30 02/06/25 09:25 Amlodipine 10 Mg Tab PO 10 mg DAILY MONSE Administration Aspirin 81 mg 02/05/25 08:30 02/06/25 09:26 Aspirin E.C. 81 Mg Tabec PO 81 mg DAILY MONSE Administration Levetiracetam 500 mg 02/04/25 20:00 02/06/25 09:26 Levetiracetam 500 Mg Tab PO 500 mg BID MONSE Administration Lorazepam 1 mg 02/04/25 19:06 02/05/25 22:16 Lorazepam 1 Mg Tab PO 1 mg BID PRN PRN Administration Mirtazapine 15 mg 02/04/25 20:00 02/05/25 19:57 Mirtazapine 15 Mg Tab PO 15 mg HS MONSE Administration Omeprazole 40 mg 02/05/25 07:30 02/06/25 09:26 Omeprazole 20 Mg Capcr PO 40 mg DAILY@0730 MONSE Administration Polyethylene Glycol 17 gm 02/04/25 18:56 Polyethylene Glycol 3350 17 Gm Packet PO DAILY PRN PRN Constipation Risperidone 1 mg 02/04/25 20:00 02/06/25 09:26 Risperidone 1 Mg Tab PO 1 mg BID MONSE Administration Diet 02/05/25 Lunch DIET [Regular/Normal] [DIET] Respiratory Pulse Oximetry 97 Pulse Oximetry 97 Oxygen Flow Rate 0 Oxygen Flow Rate 0 sulfamethoxazole (From Bactrim) Allergy (Verified 02/04/25 12:44) Diarrhea trimethoprim (From Bactrim) Allergy (Verified 02/04/25 12:44) Diarrhea morphine Adverse Reaction (Intermediate, Verified 02/04/25 12:44) Psychosis baclofen Adverse Reaction (Unknown, Verified 02/04/25 12:44) Unknown chlorthalidone Adverse Reaction (Unknown, Verified 02/04/25 12:44) Unknown codeine Adverse Reaction (Unknown, Verified 02/04/25 12:44) Unknown dextromethorphan Adverse Reaction (Unknown, Verified 02/04/25 12:44) Unknown gabapentin (From Neurontin) Adverse Reaction (Unknown, Verified 02/04/25 12:44) Unknown hydrochlorothiazide Adverse Reaction (Unknown, Verified 02/04/25 12:44) Unknown pregabalin Adverse Reaction (Unknown, Verified 02/04/25 12:44) Dopey Resuscitation Status DNR/DNI Implants Device Implant Date Quantity Site CUP 48MM 1217-32-048 09/17/20 1 Left Hip Lot/Batch Number [id number] Serial Number Catalog Number [id number] User Jonathan Paulino MD Comment Donation Id Number Manufactured Date Expiration Date 06/17/30 Source DIAN Device Identifier Version/Model Number Tool Planner [facility] Pref Term Name MRI Safety Label Contains Natural Rubber Latex or Dry Natural Rubber Device Implant Date Quantity tariff inspector CERAMIC 32MM +1 09/17/20 1 Left Hip Lot/Batch Number [id number] Serial Number Catalog Number 1365-32-310 User Jonathan Paulino MD Comment Donation Id Number Manufactured Date Expiration Date 03/17/25 Source DIAN Device Identifier Version/Model Number Tool Planner DN Pref Term Name MRI Safety Label Contains Natural Rubber Latex or Dry Natural Rubber Device Implant Date Quantity Site K WIRE 1.25MM TP 150MM 04/22/24 1 Right Wrist Lot/Batch Number Serial Number Catalog Number [id number] User Jonathan Paulino MD Comment IN + OUT, NOT IMPLANTED Donation Id Number Manufactured Date Expiration Date Source DIAN Device Identifier Version/Model Number Tool Planner DN Pref Term Name MRI Safety Label Contains Natural Rubber Latex or Dry Natural Rubber Device Implant Date Quantity Site K WIRE 1.6MM TP 150MM 04/22/24 1 Right Wrist Lot/Batch Number Serial Number Catalog Number 292.16 User Jonathan Paulino MD Comment IN + OUT, NOT IMPLANTED Donation Id Number Manufactured Date Expiration Date Source DIAN Device Identifier Version/Model Number Tool Planner DN Pref Term Name MRI Safety Label Contains Natural Rubber Latex or Dry Natural Rubber Device Implant Date Quantity Site K WIRE 1.8MM TP 150MM 04/22/24 1 Left Wrist Lot/Batch Number Serial Number Catalog Number [id number] User Jonathan Paulino MD Comment in/out, not implanted Donation Id Number Manufactured Date Expiration Date Source DIAN Device Identifier Version/Model Number Tool Planner DN Pref Term Name MRI Safety Label Contains Natural Rubber Latex or Dry Natural Rubber Device Implant Date Quantity Site LINER 32MM NEUTRAL 48MM 09/17/20 1 Left Hip Lot/Batch Number [id number] Serial Number Catalog Number [id number] User Jonathan Paulino MD Comment Donation Id Number Manufactured Date Expiration Date 08/15/25 Source DIAN Device Identifier Version/Model Number Tool Planner DN Pref Term Name MRI Safety Label Contains Natural Rubber Latex or Dry Natural Rubber Device Implant Date Quantity Site PLATE 2.4 2 COL LT 6H 3H 54MM 04/22/24 1 Left Wrist Lot/Batch Number Serial Number Catalog Number [id number] User Jonathan Paulino MD Comment Donation Id Number Manufactured Date Expiration Date Source DIAN Device Identifier Version/Model Number Tool Planner DN Pref Term Name MRI Safety Label Contains Natural Rubber Latex or Dry Natural Rubber Device Implant Date Quantity Site PLATE 2.4 2 COL RT 6H 3H 54MM 04/22/24 1 Right Wrist Lot/Batch Number Serial Number Catalog Number [id number] User Jonathan Paulino MD Comment Donation Id Number Manufactured Date Expiration Date Source DIAN Device Identifier Version/Model Number Tool Planner DN Pref Term Name MRI Safety Label Contains Natural Rubber Latex or Dry Natural Rubber Device Implant Date Quantity Site SCREW 2.[address] 20MM 04/22/24 1 Right Wrist Lot/Batch Number Serial Number Catalog Number [id number] User Jonathan Paulino MD Comment IN + OUT, NOT IMPLANTED Donation Id Number Manufactured Date Expiration Date Source DIAN Device Identifier Version/Model Number Tool Planner DN Pref Term Name MRI Safety Label Contains Natural Rubber Latex or Dry Natural Rubber Device Implant Date Quantity Site SCREW 2.[address] 24MM 04/22/24 1 Left Wrist Lot/Batch Number Serial Number Catalog Number [id number] User Jonathan Paulino MD Comment in/out not implanted Donation Id Number Manufactured Date Expiration Date Source DIAN Device Identifier Version/Model Number Tool Planner DN Pref Term Name MRI Safety Label Contains Natural Rubber Latex or Dry Natural Rubber Device Implant Date Quantity Site SCREW 2.4 LOCKING KEIRY AN 18MM 04/22/24 1 Left Wrist Lot/Batch Number Serial Number Catalog Number [id number] User Jonathan Paulino MD Comment Donation Id Number Manufactured Date Expiration Date Source DIAN Device Identifier Version/Model Number Tool Planner DN Pref Term Name MRI Safety Label Contains Natural Rubber Latex or Dry Natural Rubber Device Implant Date Quantity Site SCREW 2.4 LOCKING KEIRY AN 20MM 04/22/24 2 Left Wrist Lot/Batch Number Serial Number Catalog Number [id number] User Jonathan Paulino MD Comment Donation Id Number Manufactured Date Expiration Date Source DIAN Device Identifier Version/Model Number Tool Planner DN Pref Term Name MRI Safety Label Contains Natural Rubber Latex or Dry Natural Rubber Device Implant Date Quantity Site SCREW 2.4 LOCKING KEIRY AN 22MM 04/22/24 2 Right Wrist Lot/Batch Number Serial Number Catalog Number [id number] User Jonathan Paulino MD Comment Donation Id Number Manufactured Date Expiration Date Source DIAN Device Identifier Version/Model Number Tool Planner DN Pref Term Name MRI Safety Label Contains Natural Rubber Latex or Dry Natural Rubber Device Implant Date Quantity Site SCREW 2.[address] 14MM 04/22/24 3 Right Wrist Lot/Batch Number Serial Number Catalog Number [id number] User Jonathan Paulino MD Comment Donation Id Number Manufactured Date Expiration Date Source DIAN Device Identifier Version/Model Number Tool Planner DN Pref Term Name MRI Safety Label Contains Natural Rubber Latex or Dry Natural Rubber Device Implant Date Quantity Site SCREW 2.[address] 16MM 04/22/24 1 Left Wrist Lot/Batch Number Serial Number Catalog Number 202.816 User Jonathan Paulino MD Comment Donation Id Number Manufactured Date Expiration Date Source DIAN Device Identifier Version/Model Number Tool Planner DN Pref Term Name MRI Safety Label Contains Natural Rubber Latex or Dry Natural Rubber Device Implant Date Quantity Site STEM FEMORAL CORAIL KA SZ 11 09/17/20 1 Left Hip Lot/Batch Number [id number] Serial Number Catalog Number [id number] User Jonathan Paulino MD Comment Donation Id Number Manufactured Date Expiration Date 06/17/25 Source DIAN Device Identifier Version/Model Number Tool Planner DN Pref Term Name MRI Safety Label Contains Natural Rubber Latex or Dry Natural Rubber Device Implant Date Quantity Site WIRE PLATE REDUC LG STOP 1.25 04/22/24 1 Right Wrist Lot/Batch Number Serial Number Catalog Number [phone] User Jonathan Paulino MD Comment IN + OUT, NOT IMPLANTED Donation Id Number Manufactured Date Expiration Date Source DIAN Device Identifier Version/Model Number Tool Planner DN Pref Term Name MRI Safety Label Contains Natural Rubber Latex or Dry Natural Rubber COLONOSCOPY (05/02/02) ELECTROCARDIOGRAM (08/10/03) INTRAOPER CHOLANGIOGRAM (09/09/03) LAPAROSCOPIC CHOLECYSTECTOMY (09/09/03) LOC EXC BONE LES HUMERUS (12/04/06) OTHER NONOP RESPIRATORY MEASURE (07/19/06) Other repair of shoulder (12/04/06) ROTATOR CUFF REPAIR (12/04/06) Replacement of Left Hip Joint with Ceramic on Polyethylene Synthetic Substitute, Uncemented, Open Approach (09/16/20) Reposition Left Radius with Internal Fixation Device, Open Approach (04/20/24) Reposition Right Radius with Internal Fixation Device, Open Approach (04/20/24) Rotator cuff repair (12/04/06) SHOULDER ARTHROPLAST NEC (12/04/06) 02/06/25 07:26 Temperature 36.3 C L Temperature Source Temporal Artery Scan Pulse 76 Respiratory Rate 16 Blood Pressure 140/78 Blood Pressure Mean 98 Pulse Oximetry 97 Oxygen Delivery Method Room Air Oxygen Flow Rate 0 Pain Level 9 v v v v v v v v v Sending and/or Receiving Nurses: Please use comment section below to note any information pertinent to the patient hand-off not included above. Information / Comments: Report received from: Hand of given to Dorcas at 1015 at [facility]. Patient question were answered in regards to PNA and antibiotics and no additional questions were asked. RN will continue to monitor patient until discharge.
== END 2025-02-06 11:34 | disposition skilled nursing facility (03) ==
LOC: ER 19:11 → MS 20:14
PROVIDERS: Physician Assistant; Admitting Provider Family Medicine; Emergency Provider Registered Nurse Emergency; PCP Family Medicine; Responsible Provider Family Medicine; Visit Provider Family Medicine
DX: T17.928A Food in respiratory tract, part unspecified causing other injury, initial encounter (principal); W44.F3XA Food entering into or through a natural orifice, initial encounter; F03.90 Unspecified dementia, unspecified severity, without behavioral disturbance, psychotic disturbance, mood disturbance, and anxiety; F33.9 Major depressive disorder, recurrent, unspecified; Z79.899 Other long term (current) drug therapy; D64.9 Anemia, unspecified; I12.9 Hypertensive chronic kidney disease with stage 1 through stage 4 chronic kidney disease, or unspecified chronic kidney disease; Z66 Do not resuscitate; G89.29 Other chronic pain; M54.9 Dorsalgia, unspecified; R62.7 Adult failure to thrive; R53.1 Weakness; R29.6 Repeated falls; I25.10 Atherosclerotic heart disease of native coronary artery without angina pectoris; Z86.73 Personal history of transient ischemic attack (TIA), and cerebral infarction without residual deficits; N18.30 Chronic kidney disease, stage 3 unspecified; K44.9 Diaphragmatic hernia without obstruction or gangrene; G47.33 Obstructive sleep apnea (adult) (pediatric); R74.8 Abnormal levels of other serum enzymes; R56.9 Unspecified convulsions; E78.5 Hyperlipidemia, unspecified; K59.00 Constipation, unspecified; R73.9 Hyperglycemia, unspecified; T68.XXXA Hypothermia, initial encounter; R13.12 Dysphagia, oropharyngeal phase
CPT/HCPCS: 00123; 36415; 80053; 82550; 83690; 87641; 92610; 93005; 96365; 99285; 70360; 71046; 83605; 83735; 84484; 85025; 93010; 99222; 99233; 99238; G0378; J0131

== ENCOUNTER 2025-02-16 18:20 | Emergency (ER) | payer MEDICARE, MEDICAID, SELFPAY ==
[2025-02-16 18:22] VITALS: BP 137/77; PULSE 69; RESP 16; TEMP 36.6; O2SAT 97
--- NOTE | 2025-02-16 18:24 | DI.CT_ITS ---
Exam(s) CT HEAD CERVICAL SPINE WO EXAM: CT HEAD CERVICAL SPINE WO CLINICAL HISTORY: fall. TECHNIQUE: Imaging Protocol: Axial computed tomography images with coronal and sagittal reformatted images were created and reviewed COMPARISON: CT CT HEAD CERVICAL SPINE WO from 12/21/2024 FINDINGS: Head CT Ventricles and Extra axial spaces: Normal in size and morphology for the patient's age. Hemorrhage: None. Cerebral parenchyma: No evidence of mass or acute infarct. 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 White matter changes small vessel disease. Bilateral basal ganglia lacunar infarcts. Midline shift: None. Brainstem/Cerebellum: Normal. Calvarium: Normal. Visualized Paranasal sinuses/Mastoids: Clear. Soft tissues: Left frontal scalp hematoma. Cervical Spine CT BONES: Vertebral body heights are maintained. Alignment is normal. There is no evidence of acute fracture. Anterior fusion at C4 through C7. Degenerative disc changes and facet degenerative changes are seen at C 3 4. A small metallic density is again noted in the central canal, on the right adjacent to the posterior C1 ring. SOFT TISSUES: No paraspinal hematoma. The airway appears intact. No pneumothorax is seen at the lung apices. IMPRESSION: Head CT: Left frontal scalp hematoma. No acute intracranial abnormality. Old right occipital infarct. C-spine CT: Degenerative and postsurgical changes, no acute abnormality. The preliminary [facility] report was reviewed. RADIATION DOSE DELIVERED: 1,121.05mGy.cm Total DLP DATA REPOSITORY: All CT scans at this facility are submitted to the National Radiology Data Registry (NRDR) Dose Index Registry (DIR) with the [employer] ([employer]). RADIATION OPTIMIZATION: All CT scans at this facility use at least one of these dose optimization techniques: automated exposure control; mA and/or kV adjustment per patient size (includes targeted exams where dose is matched to clinical indication); or iterative reconstruction.
--- NOTE | 2025-02-16 19:18 | DI.[facility]_ITS ---
PROCEDURE INFORMATION: Exam: CT Head Without Contrast Exam date and time: 02/16/2025 6:38 PM Age: 74 years old Clinical indication: Injury or trauma; Fall; Blunt trauma (contusions or hematomas) TECHNIQUE: Imaging protocol: Computed tomography of the head without contrast. COMPARISON: MR BRAIN WO 12/22/2024 11:30 AM FINDINGS: Brain: No acute intracranial hemorrhage or mass lesions. No midline shift. Normal marlow-white differentiation. There moderate are scattered deep and periventricular white matter changes likely associated with chronic microvascular ischemia. A large region of encephalomalacia is present within the right occipital lobe, unchanged from the study dated 12/21/2024. Punctate calcifications are redemonstrated within the basal ganglia bilaterally. Cerebral ventricles: No ventriculomegaly. Paranasal sinuses: Visualized sinuses are unremarkable. No fluid levels. Mastoid air cells: Visualized mastoid air cells are well aerated. Bones: Unremarkable. No acute fracture. Soft tissues: There is a large left frontal subgaleal hematoma. Vasculature: Atheromatous calcifications are present bilaterally within the cavernous portions of the internal carotid arteries. IMPRESSION: 1. No acute intracranial findings. 2. Large left frontal subgaleal hematoma without underlying calvarial abnormality. 3. Findings likely associated with chronic microvascular ischemia. PROCEDURE INFORMATION: Exam: CT Cervical Spine Without Contrast Exam date and time: 02/16/2025 6:38 PM Age: 74 years old Clinical indication: Injury or trauma; Fall; Blunt trauma (contusions or hematomas) TECHNIQUE: Imaging protocol: Computed tomography of the cervical spine without contrast. COMPARISON: CT HEAD CERVICAL SPINE WO 12/21/2024 1:35 AM FINDINGS: Tubes, catheters and devices: Hardware appears intact. Bones: Anterior fusion and discectomy is present from C4-C7. Trace C3 on C4 retrolisthesis is unchanged from the CT dated 12/21/2024. No acute fracture or dislocation. No compression deformities. Lungs: Lung apices are normal. Vasculature: Mild atheromatous calcifications are present at the left carotid bulb. Soft tissues: Unremarkable. IMPRESSION: No acute cervical spine injury. Dictated and Authenticated by: Elina Olivas MD. Orderin Tasia Mariscal MD
--- NOTE | 2025-02-16 20:03 | W.ED.GENAD ---
Discharge Plan Disposition Patient Disposition: [facility](SNF) Discharge Details Clinical Impression: CHI (closed head injury), Traumatic hematoma of forehead Primary Care Provider: Marixa Kurtz ED Provider: Davey Dozier Home Meds and New Rx's Prescriptions: Continued oxycodone 5 mg tablet See Rx Instructions PO BID PRN Rx Instructions: 1 BID and addl 1 is needed orally twice a day PRN; lorazepam 1 mg tablet 1 mg PO BID PRN levetiracetam 500 mg tablet 500 mg PO BID Qty: 1 0RF aspirin 81 mg tablet,delayed release (DR/EC) 81 mg PO DAILY omeprazole 40 MG capsule,delayed release(DR/EC) 40 mg PO DAILY vitamin B complex Tablet 1 tab PO DAILY acetaminophen 325 mg Tablet 650 mg PO QID Qty: 30 0RF mirtazapine 15 mg Tablet 15 mg PO HS Qty: 30 0RF Phlexy-Vits 15 mg- 700 mcg Powder In Packet 1 packet PO TID Qty: 30 0RF amlodipine 10 mg tablet 10 mg PO DAILY naloxone 4 mg/actuation spray,non-aerosol 4 mg INTRANASAL ONCE PRN Patient Comments: ADMINISTER 1 SPRAY INTO ONE NOSTRIL A SINGLE DOSE NEEDED FOR EXCESSIVE SEDATION atorvastatin 20 mg Tablet 20 mg PO QPM Qty: 30 0RF risperidone 1 mg tablet 1 mg PO BID Patient Comments: TAKE ONE TABLET BY MOUTH AT BEDTIME nitrofurantoin macrocrystal 100 mg capsule 100 mg PO DAILY Discharge Instructions Instructions: Minor Contusion ED Additional Instructions: Your CT scans of your head and your cervical spine showed no acute abnormality except for the hematoma on your forehead. This should reaccumulate over time, I suspect will have an evolving bruise over your forehead and face from this process. Please follow-up with your primary care provider regarding your visit to the emergency department today. Be sure to discuss results of all test performed here today to include radiology, and laboratory testing as well as results for any pending cultures. Should your symptoms worsen, or if you develop new concerning symptoms, please return immediately emergency department for further evaluation. Discharge Data Discharge Date/Time-TO BE ENTERED AT DEPARTURE: 02/16/25 20:50 HPI General Date/Time Provider Initiated Documentation: 02/16/25 18:24. HPI Narrative: MDM/Narrative: Initial Assessment: 74-year-old female with advanced dementia, nonambulatory at baseline, presents with head trauma after fall from wheelchair. Large hematoma on left forehead, no other new symptoms. ED Course: - CT head and C-spine negative for acute intracranial or bony pathology. Final Assessment: CT head and C-spine negative for acute intracranial or bony pathology. Assessed for head trauma, no other concerning findings. Clinical Impression: - Head trauma Disposition: - Discharge: [facility] facility This document was created with assistance from [employer]-Re[employer] Supervisor. The patient consented to its use. HPI: The patient is a 74-year-old female with a diagnosis of dementia, presenting from a senior living following a fall. Initially, Emergency Medical Services (EMS) reported a ground-level fall; however, subsequent information indicated that the patient fell from her wheelchair. At baseline, the patient is minimally responsive to verbal stimuli. Post-fall, she developed a large hematoma on the left forehead, with no other new symptoms reported. ROS: Negative besides as mentioned above Exam: Vital signs: Reviewed. General Appearance: Elderly frail woman, intermittently responsive to verbal stimuli, opens eyes spontaneously. HEENT: Pupils equal and reactive to light. No weathers signs, raccoon eyes, or palpable skull fracture. [place]-sized hematoma on left forehead. Neck: Supple, full range of motion, no observable masses, No meningeal sign. Respiratory: No Respiratory distress. No tachypnea. Cardiovascular: RRR, no edema. Gastrointestinal: Soft, nondistended, No rebound tenderness. Back: No midline tenderness to palpation or palpable step-offs of the C/T/L spine. Skin: Warm and dry, no rash. Neurological: Moves all four extremities, normal tone Psychiatric: Appropriate for situation. Radiology: PROCEDURE INFORMATION: Exam: CT Head Without Contrast Exam date and time: 02/16/2025 6:38 PM Age: 74 years old Clinical indication: Injury or trauma; Fall; Blunt trauma (contusions or hematomas) TECHNIQUE: Imaging protocol: Computed tomography of the head without contrast. COMPARISON: MR BRAIN WO 12/22/2024 11:30 AM FINDINGS: Brain: No acute intracranial hemorrhage or mass lesions. No midline shift. Normal marlow-white differentiation. There moderate are scattered deep and periventricular white matter changes likely associated with chronic microvascular ischemia. A large region of encephalomalacia is present within the right occipital lobe, unchanged from the study dated 12/21/2024. Punctate calcifications are redemonstrated within the basal ganglia bilaterally. Cerebral ventricles: No ventriculomegaly. Paranasal sinuses: Visualized sinuses are unremarkable. No fluid levels. Mastoid air cells: Visualized mastoid air cells are well aerated. Bones: Unremarkable. No acute fracture. Soft tissues: There is a large left frontal subgaleal hematoma. Vasculature: Atheromatous calcifications are present bilaterally within the cavernous portions of the internal carotid arteries. IMPRESSION: 1. No acute intracranial findings. 2. Large left frontal subgaleal hematoma without underlying calvarial abnormality. 3. Findings likely associated with chronic microvascular ischemia. [facility] [employer] Preliminary Radiology Report NUCLEAR CONTROL OPERATOR (QA) DISCREPANCY? If there is a discrepancy between the preliminary and final interpretation, please notify [employer] via [email or web address]. If you do not have access to our QA portal, call our QA team at [phone] CONFIDENTIALITY STATEMENT This report is intended only for the use of the referring physician, and only in accordance with law, If you received this in error, call [phone] Page 2 of 2 PROCEDURE INFORMATION: Exam: CT Cervical Spine Without Contrast Exam date and time: 02/16/2025 6:38 PM Age: 74 years old Clinical indication: Injury or trauma; Fall; Blunt trauma (contusions or hematomas) TECHNIQUE: Imaging protocol: Computed tomography of the cervical spine without contrast. COMPARISON: CT HEAD CERVICAL SPINE WO 12/21/2024 1:35 AM FINDINGS: Tubes, catheters and devices: Hardware appears intact. Bones: Anterior fusion and discectomy is present from C4-C7. Trace C3 on C4 retrolisthesis is unchanged from the CT dated 12/21/2024. No acute fracture or dislocation. No compression deformities. Lungs: Lung apices are normal. Vasculature: Mild atheromatous calcifications are present at the left carotid bulb. Soft tissues: Unremarkable. IMPRESSION: No acute cervical spine injury. Thank you for allowing us to participate in the care of your patient. Dictated and Authenticated by: Elina Olivas MD 02/16/2025 7:18 PM Eastern Time ([place] & [place]) Related Data Home Medications ?Medication ?Instructions ?Recorded ?Confirmed omeprazole 40 mg capsule,delayed 40 mg PO DAILY 05/19/14 02/16/25 release vitamin B complex 1 tab PO DAILY 01/05/20 02/16/25 aspirin 81 mg tablet,delayed 81 mg PO DAILY 06/23/21 02/16/25 release amlodipine 10 mg tablet 10 mg PO DAILY 01/14/22 02/16/25 naloxone 4 mg/actuation nasal spray 4 mg intranasal ONCE PRN 07/16/23 02/16/25 atorvastatin 20 mg tablet 20 mg PO QPM #30 tabs 08/23/24 02/16/25 acetaminophen 325 mg tablet 650 mg (2 x 325 mg) PO QID #30 tabs 09/01/24 02/16/25 mirtazapine 15 mg tablet 15 mg PO HS #30 tabs 09/01/24 02/16/25 multivit with mins-ferrous sulf 15 1 packet PO TID #30 ea 09/01/24 02/16/25 mg-folic 700 mcg oral powder packet (Phlexy-Vits) nitrofurantoin macrocrystal 100 mg 100 mg PO DAILY 12/21/24 02/16/25 capsule levetiracetam 500 mg tablet 500 mg PO BID #1 tab 01/29/25 02/16/25 lorazepam 1 mg tablet 1 mg PO BID PRN 01/29/25 02/16/25 oxycodone 5 mg tablet See Rx Instructions PO BID PRN 01/29/25 02/16/25 risperidone 1 mg tablet 1 mg PO BID 01/29/25 02/16/25 Previous Rx's ?Medication ?Instructions ?Recorded atorvastatin 20 mg tablet 20 mg PO QPM #30 tabs 08/23/24 acetaminophen 325 mg tablet 650 mg (2 x 325 mg) PO QID #30 tabs 09/01/24 mirtazapine 15 mg tablet 15 mg PO HS #30 tabs 09/01/24 multivit with mins-ferrous sulf 15 1 packet PO TID #30 ea 09/01/24 mg-folic 700 mcg oral powder packet (Phlexy-Vits) levetiracetam 500 mg tablet 500 mg PO BID #1 tab 01/29/25 Allergies Allergy/AdvReac Type Severity Reaction Status Date / Time sulfamethoxazole (From Allergy Diarrhea Verified 02/04/25 12:44 Bactrim) trimethoprim (From Bactrim) Allergy Diarrhea Verified 02/04/25 12:44 morphine AdvReac Intermediate Psychosis Verified 02/04/25 12:44 baclofen AdvReac Unknown Unknown Verified 02/04/25 12:44 chlorthalidone AdvReac Unknown Unknown Verified 02/04/25 12:44 codeine AdvReac Unknown Unknown Verified 02/04/25 12:44 dextromethorphan AdvReac Unknown Unknown Verified 02/04/25 12:44 gabapentin (From Neurontin) AdvReac Unknown Unknown Verified 02/04/25 12:44 hydrochlorothiazide AdvReac Unknown Unknown Verified 02/04/25 12:44 pregabalin AdvReac Unknown Dopey Verified 02/04/25 12:44 General Stated Complaint: HeadInjury LOLITA: 3 Course Vital Signs Vital signs: Vital Signs Temperature 36.6 C 02/16/25 18:22 Pulse 69 02/16/25 18:22 Respiratory Rate 16 02/16/25 18:22 Blood Pressure 137/77 02/16/25 18:22 Pulse Oximetry 97 02/16/25 18:22 Temperature 36.6 C 02/16/25 18:22 Temperature Source Oral 02/16/25 18:22 Pulse 69 02/16/25 18:22 Respiratory Rate 16 02/16/25 18:22 Blood Pressure 137/77 02/16/25 18:22 Blood Pressure Position Supine 02/16/25 18:22 Pulse Oximetry 97 02/16/25 18:22 Oxygen Delivery Method Room Air 02/16/25 18:22 Oxygen Flow Rate 0 02/16/25 18:22 Medical Decision Making Quality:SDOH Health Related Social Needs: Health related social needs material hardship Health related social needs details pt. non verbal PFSH All Active Problems (Updated 02/16/25 @ 20:04 by Davey Dozier MD) Traumatic hematoma of forehead (Acute) CHI (closed head injury) (Acute) Major depression, recurrent, chronic (Acute) Aspiration into airway (Acute) Palliative care patient (Acute) ACP (advance care planning) (Acute) DNR (do not resuscitate) (Acute) Delusions (Acute) Dementia (Chronic) Bladder mass (Acute) Chronic back pain (Acute) Cystic mass of pancreas (Acute) Abnormal finding on CT scan (Acute) [place] coma scale score 3-8, at arrival to emergency department (Acute) Altered mental status (Acute) Encephalopathy (Acute) Acute UTI (Acute) Altered mental status (Acute) Failure to thrive in adult (Acute) Weakness (Acute) Falls frequently (Acute) Trouble talking (Acute) Acute UTI (Acute) Acute kidney injury superimposed on CKD (Acute) Lives in senior living (Acute) Deficit in activities of daily living (ADL) (Acute) Closed fracture of distal end of radius (Acute) Closed fracture of left distal radius (Acute) Closed fracture of right distal radius (Acute) Heart murmur (Acute) Depression (Chronic) At high risk for skin breakdown (Acute) Periorbital edema (Acute) Hiatal hernia (Chronic) moderate Coronary artery calcification seen on CAT scan (Acute) Diverticula of colon (Acute) DJD (degenerative joint disease), lumbar (Acute) History of CVA (cerebrovascular accident) (Acute) remote Fracture of both wrists (Acute) Goiter (Acute) Fibromyalgia (Chronic) KWAME (obstructive sleep apnea) (Chronic) Chronic pain (Chronic) Movement disorder (Acute) Chronic renal insufficiency, stage III (moderate) (Acute) Anemia (Chronic) Hypertension (Chronic) Medical History (Updated 02/16/25 @ 20:04 by Davey Dozier MD) Low magnesium level UTI (urinary tract infection) Encephalopathy Seizure Psychiatric symptoms Ambulatory dysfunction AMS (altered mental status) Rhabdomyolysis Fall Primary osteoarthritis of left knee We will see the patient back in 4-1/2 months for possible repeat Synvisc 1 in her left knee would consider x-ray in her right knee if she is still significantly symptomatic Osteoarthritis of right knee Steroid injection: 04/05/2020 Has had previous viscosupplementation injections. 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) As treatment for a femoral neck fracture (DOI: 09/16/2020) History of back surgery Hx of cholecystectomy Social History Smoking/Tobacco Use Status: Never Smoking risk assessment performed?: Yes Alcohol Intake: never Drug use: Never Substance use type: does not use Housing: senior living Do you feel safe at home: Yes Do you feel safe in your relationship?: Yes Additional Social history: health and rehab
[2025-02-16 20:57] VITALS: BP 146/82; PULSE 82; RESP 18; O2SAT 97
== END 2025-02-16 20:50 | disposition skilled nursing facility (03) ==
PROVIDERS: Emergency Provider General Practice; PCP Family Medicine
DX: S00.83XA Contusion of other part of head, initial encounter (principal); S09.8XXA Other specified injuries of head, initial encounter; F03.90 Unspecified dementia, unspecified severity, without behavioral disturbance, psychotic disturbance, mood disturbance, and anxiety; Z59.87 Material hardship due to limited financial resources, not elsewhere classified; W05.0XXA Fall from non-moving wheelchair, initial encounter
CPT/HCPCS: 99284 ×2; 70450; 72125

== ENCOUNTER 2025-02-17 17:52 | Outpatient (REF) | payer MEDICARE, MEDICAID, SELFPAY ==
[2025-02-17 13:48] LABS: Abs Immature Grans 0.02 10^3/uL (0.0-0.06); HCT 27.7 % (36.0-46.0); HGB 8.9 g/dL (11.2-15.7); Immature Grans % 0.6 %; MCH 28.0 pg (27.0-33.0); MCHC 32.1 % (32.0-36.0); MCV 87 fL (80-95); MPV 10.4 fL (8.0-11.0); Platelet Count 239 10^3/uL (130-400); RBC 3.18 10^6/uL (3.93-5.22); RDW 14.6 % (11.7-14.6); RDW-SD 46.6 fL; WBC 3.28 10^3/uL (4.4-10.8)
[2025-02-17 14:02] LABS: ALT 16 U/L (14-59); AST 22 U/L (15-37); Albumin 2.9 g/dL (3.4-5.0); Alkaline Phosphatase 76 U/L (46-116); Anion Gap 7.5 mmol/L (3-11); BUN 17 mg/dL (7-18); Bilirubin, Total 0.5 mg/dL (0.2-1.0); CO2 27.5 mmol/L (21.0-32.0); Calcium 8.9 mg/dL (8.5-10.1); Chloride 106 mmol/L (98-107); Estimated GFR 97.14 (mL/min/1.73m2); Glucose 86 mg/dL (74-106); Potassium 4.3 mmol/L (3.5-5.1); Sodium 141 mmol/L (136-145); Total Protein 7.2 g/dL (6.4-8.2)
== END 2025-02-17 17:53 | disposition home or self-care (01) ==
LOC: LBN 17:52
PROVIDERS: PCP Family Medicine; Visit Provider Family Medicine
DX: K86.9 Disease of pancreas, unspecified (principal)
CPT/HCPCS: 80053; 85025

== ENCOUNTER 2025-02-18 20:28 | Outpatient (REF) | payer MEDICARE, MEDICAID, SELFPAY | END 2025-02-18 20:29 | disposition home or self-care (01) | LOC: LBN 20:28 | PROVIDERS: PCP Family Medicine; Visit Provider Family Medicine | DX: N39.0 Urinary tract infection, site not specified (principal) | CPT/HCPCS: 87086 ==

== ENCOUNTER 2025-03-02 20:03 | Emergency (ER) | payer MEDICARE, MEDICAID, SELFPAY ==
--- NOTE | 2025-03-02 20:00 | DI.RAD_ITS ---
Exam(s) XR PORTABLE CHEST AP EXAM: XR PORTABLE CHEST AP CLINICAL HISTORY: dysphagia and chest pain TECHNIQUE: 2D digital imaging was performed of the chest. One image was obtained. An AP view was obtained. COMPARISON: CR,XR XR CHEST 2V PA LATERAL from 08/28/2024 CR XR CHEST 2V PA LATERAL from 02/04/2025 FINDINGS: MEDIASTINUM: Normal. HEART: Normal. PULMONARY VASCULATURE: Normal. LUNGS: Clear. PLEURAL SPACE: No pleural effusion or pneumothorax. BONE:Within normal limits for the patient's age. There are degenerative changes seen in the shoulders. Postsurgical changes are seen in the right shoulder. OTHER FINDINGS:Normal. IMPRESSION: 1. No acute pulmonary findings. 2. The preliminary [facility] report was reviewed. DATA REPOSITORY: RADIATION DOSE DELIVERED:
--- NOTE | 2025-03-02 20:00 | RT.EKG_ITS ---
APPROVED REPORT Exam: Resting ECG Reason for Exam: SOB Patient Location: E HR:81 bpm ECG Measurements Heart Rate 81 AXIS UT 192 P 43 QRSd 90 QRS 16 QT 414 T 57 QTc 481 Conclusion Sinus rhythm...normal P axis, V-rate 60- 99 Anterior infarct, old...Q >40mS, abnormal ST-T, V2-V5
[2025-03-02 20:05] VITALS: BP 177/89; PULSE 80; RESP 20; TEMP 36.1; O2SAT 99
[2025-03-02 20:54] LABS: Abs Immature Grans 0.02 10^3/uL (0.0-0.06); HCT 29.7 % (36.0-46.0); HGB 9.3 g/dL (11.2-15.7); Immature Grans % 0.4 %; MCH 27.7 pg (27.0-33.0); MCHC 31.3 % (32.0-36.0); MCV 88 fL (80-95); MPV 9.5 fL (8.0-11.0); Platelet Count 241 10^3/uL (130-400); RBC 3.36 10^6/uL (3.93-5.22); RDW 14.0 % (11.7-14.6); RDW-SD 45.0 fL; WBC 4.73 10^3/uL (4.4-10.8)
[2025-03-02 21:48] LABS: ALT 13 U/L (14-59); AST 17 U/L (15-37); Albumin 3.0 g/dL (3.4-5.0); Alkaline Phosphatase 85 U/L (46-116); Anion Gap 7.8 mmol/L (3-11); BUN 16 mg/dL (7-18); Bilirubin, Total 0.2 mg/dL (0.2-1.0); CO2 29.2 mmol/L (21.0-32.0); Calcium 9.2 mg/dL (8.5-10.1); Chloride 105 mmol/L (98-107); Estimated GFR 89.58 (mL/min/1.73m2); Glucose 173 mg/dL (74-106); Magnesium 1.7 mg/dL (1.8-2.4); NT-proBNP 205 pg/mL (<300); Potassium 3.6 mmol/L (3.5-5.1); Sodium 142 mmol/L (136-145); Total Protein 8.0 g/dL (6.4-8.2); Troponin I 12 ng/L (<or=51)
[2025-03-02] MEDS: MAGNESIUM SULFATE 2 GM/50 ML BAG IV_INF (22:12)
--- NOTE | 2025-03-02 22:14 | DI.[facility]_ITS ---
PROCEDURE INFORMATION: Exam: XR Chest Exam date and time: 03/02/2025 8:32 PM Age: 74 years old Clinical indication: Other: Cp; Dysphagia and chest pain TECHNIQUE: Imaging protocol: Radiologic exam of the chest. Views: 1 view. COMPARISON: CR XR CHEST 2V PA LATERAL 02/04/2025 1:46 PM FINDINGS: Lungs: Unremarkable. No consolidation. Pleural spaces: Unremarkable. No pleural effusion. No pneumothorax. Heart/Mediastinum: Unremarkable. No cardiomegaly. Bones/joints: Scoliosis of the thoracic spine. IMPRESSION: No acute infiltrates. Dictated and Authenticated by: Ernesto Deras MD. Orderin Tasia Mariscal MD
--- NOTE | 2025-03-02 22:16 | ED.GENADUL_ITS ---
Discharge Plan Disposition Patient Disposition: Long-Term Facility(SNF) Condition: Good Discharge Details Clinical Impression: Chest pain Primary Care Provider: Marixa Kurtz ED Provider: Davey Dozier Home Meds and New Rx's Prescriptions: Continued oxycodone 5 mg tablet See Rx Instructions PO BID PRN Rx Instructions: 1 BID and addl 1 is needed orally twice a day PRN; lorazepam 1 mg tablet 1 mg PO BID PRN levetiracetam 500 mg tablet 500 mg PO BID Qty: 1 0RF aspirin 81 mg tablet,delayed release (DR/EC) 81 mg PO DAILY omeprazole 40 MG capsule,delayed release(DR/EC) 40 mg PO DAILY vitamin B complex Tablet 1 tab PO DAILY acetaminophen 325 mg Tablet 650 mg PO QID Qty: 30 0RF mirtazapine 15 mg Tablet 15 mg PO HS Qty: 30 0RF Phlexy-Vits 15 mg- 700 mcg Powder In Packet 1 packet PO TID Qty: 30 0RF amlodipine 10 mg tablet 10 mg PO DAILY naloxone 4 mg/actuation spray,non-aerosol 4 mg INTRANASAL ONCE PRN Patient Comments: ADMINISTER 1 SPRAY INTO ONE NOSTRIL A SINGLE DOSE NEEDED FOR EXCESSIVE SEDATION atorvastatin 20 mg Tablet 20 mg PO QPM Qty: 30 0RF risperidone 1 mg tablet 1 mg PO BID Patient Comments: TAKE ONE TABLET BY MOUTH AT BEDTIME nitrofurantoin macrocrystal 100 mg capsule 100 mg PO DAILY Discharge Instructions Instructions: Chest Pain (DC) Additional Instructions: Please follow-up with your primary care provider regarding your visit to the emergency department today. Be sure to discuss results of all test performed here today to include radiology, and laboratory testing as well as results for any pending cultures. Should your symptoms worsen, or if you develop new concerning symptoms, please return immediately emergency department for further evaluation. HPI General Date/Time Provider Initiated Documentation: 03/02/25 20:11 . HPI Narrative: MDM/Narrative: Initial Assessment: Reports chest pain starting at 1830 hours, localized to a specific area. Baseline condition unchanged. Takes medications one by one due to aphasia, no concerns of aspiration. Problem: Chest pain patient with cardiovascular risk factors, will rule out ACS with EKG, troponin. Will also obtain x-ray to look for evidence of aspiration pneumothorax pneumonia. CXR neg, Trop x2 neg, EKG non ischemic. Clinical Impression: - Chest pain This document was created with assistance from [employer]. The patient consented to its use. Disposition: Return to SNF HPI: The patient presents to the emergency department with complaints of chest pain. The onset of localized chest pain occurred at 1830 hours today. The patient reports experiencing dysphagia and fatigue. She consumed dinner without any issues. Due to aphasia, she takes her medication one tablet at a time, with no concerns regarding aspiration. ROS: Negative besides as mentioned above Exam: Vital signs: Reviewed. General Appearance: Alert and oriented. No acute distress. HEENT: NCAT, EOMI, not icteric. External ears normal. No rhinorrhea. Moist mucous membranes. Neck: Supple, full range of motion, no observable masses, No meningeal sign. Respiratory: No Respiratory distress. No tachypnea. Cardiovascular: Heart exam performed. Gastrointestinal: Soft, nondistended, No rebound tenderness. Back: No midline tenderness to palpation or palpable step-offs of the C/T/L spine. Skin: Warm and dry, no rash. Neurological: Normal Gait, Grossly intact. Psychiatric: Appropriate for situation. Rhythm: NSR Rate: 81 bpm [place]: Normal axis Intervals: Normal intervals Other findings: No acute ST segment or T wave changes to suggest acute ischemia. Labs: Laboratory Tests Range/Units 03/02/25 03/02/25 03/02/25 20:23 20:47 21:04 WBC (4.4-10.8) 10^3/uL 4.73 RBC (3.93-5.22) 10^6/uL 3.36 L Hgb (11.2-15.7) g/dL 9.3 L Hct (36.0-46.0) % 29.7 L MCV (80-95) fL 88 MCH (27.0-33.0) pg 27.7 MCHC (32.0-36.0) % 31.3 L RDW (11.7-14.6) % 14.0 Plt Count (130-400) 10^3/uL 241 MPV (8.0-11.0) fL 9.5 Immature Gran % % 0.4 Neutrophils % % 65.3 Lymphocytes % % 18.0 Monocytes % % 14.6 Eosinophils % % 1.1 Basophils % % 0.6 Nucleated RBC % (0.0-0.3) % 0.0 Absolute Neutrophils (1.2-6.7) 10^3/uL 3.09 Absolute Lymphocytes (1.2-3.4) 10^3/uL 0.85 L Absolute Monocytes (0.1-0.8) 10^3/uL 0.69 Absolute Eosinophils (0.0-0.7) 10^3/uL 0.05 Absolute Basophils (0.0-0.2) 10^3/uL 0.03 Sodium Cancelled 142 Potassium Cancelled 3.6 Chloride Cancelled 105 Carbon Dioxide Cancelled 29.2 Anion Gap Cancelled 7.8 BUN Cancelled 16 Creatinine Cancelled 0.7 Est GFR (CKD-EPI 2020) Cancelled 89.58 Glucose Cancelled 173 H Calcium Cancelled 9.2 Magnesium Cancelled 1.7 L Total Bilirubin Cancelled 0.2 AST Cancelled 17 ALT Cancelled 13 L Alkaline Phosphatase Cancelled 85 Troponin I Cancelled 12 NT-Pro-B Natriuret Pep Cancelled 205 Total Protein Cancelled 8.0 Albumin Cancelled 3.0 L Range/Units 03/02/ 22:15 WBC (4.4-10.8) 10^3/uL RBC (3.93-5.22) 10^6/uL Hgb (11.2-15.7) g/dL Hct (36.0-46.0) % MCV (80-95) fL MCH (27.0-33.0) pg MCHC (32.0-36.0) % RDW (11.7-14.6) % Plt Count (130-400) 10^3/uL MPV (8.0-11.0) fL Immature Gran % % Neutrophils % % Lymphocytes % % Monocytes % % Eosinophils % % Basophils % % Nucleated RBC % (0.0-0.3) % Absolute Neutrophils (1.2-6.7) 10^3/uL Absolute Lymphocytes (1.2-3.4) 10^3/uL Absolute Monocytes (0.1-0.8) 10^3/uL Absolute Eosinophils (0.0-0.7) 10^3/uL Absolute Basophils (0.0-0.2) 10^3/uL Sodium Potassium Chloride Carbon Dioxide Anion Gap BUN Creatinine Est GFR (CKD-EPI 2020) Glucose Calcium Magnesium Total Bilirubin AST ALT Alkaline Phosphatase Troponin I 12 NT-Pro-B Natriuret Pep Total Protein Albumin Radiology: Chest x-ray 1 view: No acute disease as read by me Related Data Home Medications ?Medication ?Instructions ?Recorded ?Confirmed omeprazole 40 mg capsule,delayed 40 mg PO DAILY 03/02/25 release vitamin B complex 1 tab PO DAILY 01/05/2002/16 aspirin 81 mg tablet,delayed 81 mg PO DAILY 06/23/21 0 03/02/25 release amlodipine 10 mg tablet 10 mg PO DAILY 01/14/2202/16 naloxone 4 mg/actuation nasal spray 4 mg intranasal ON CE PRN 07/16/23 03/02/25 atorvastatin 20 mg tablet 20 mg PO QPM #30 tabs 03/02/25 acetaminophen 325 mg tablet 650 mg (2 x 325 mg) PO QID #30 tabs 09/01/24 03/02/25 mirtazapine 15 mg tablet 15 mg PO HS #30 tabs 2 5 03/02/25 multivit with mins-ferrous sulf 15 1 packet PO TID #30 ea 09/01/24 03/02/25 mg-folic 700 mcg oral powder packet (Phlexy-Vits) nitrofurantoin macrocrystal 100 mg 100 mg PO DAILY 12/1003/02/25 capsule levetiracetam 500 mg tablet 500 mg PO BID #1 tab 01/2903/02/25 lorazepam 1 mg tablet 1 mg PO BID PRN 01/29/25 oxycodone 5 mg tablet See Rx Instructions PO BID P RN 01/29/25 03/02/25 risperidone 1 mg tablet 1 mg PO BID 01/29/25 5 Previous Rx's ?Medication ?Instructions ?Recorded atorvastatin 20 mg tablet 20 mg PO QPM #30 tabs acetaminophen 325 mg tablet 650 mg (2 x 325 mg) PO QID #30 tabs 09/01/24 mirtazapine 15 mg tablet 15 mg PO HS #30 tabs 5 multivit with mins-ferrous sulf 15 1 packet PO TID #30 ea 09/01/24 mg-folic 700 mcg oral powder packet (Phlexy-Vits) levetiracetam 500 mg tablet 500 mg PO BID #1 tab 01/29 Allergies Allergy/AdvReac Type Severity Reaction Status Date / Time sulfamethoxazole (From Allergy Diarrhea Verified 02/04/25 12:44 Bactrim) trimethoprim (From Bactrim) Allergy Diarrhea Verified 02/04/25 12:44 morphine AdvReac Intermediate Psychosis Verified 02/04/25 12:44 baclofen AdvReac Unknown Unknown Verified 02/04/25 12:44 chlorthalidone AdvReac Unknown Unknown Verified 02/04/25 12:44 codeine AdvReac Unknown Unknown Verified 02/04/25 12:44 dextromethorphan AdvReac Unknown Unknown Verified 02/04/25 12:44 gabapentin (From Neurontin) AdvReac Unknown Unknown Verified 02/04/25 12:44 hydrochlorothiazide AdvReac Unknown Unknown Verified 02/04/25 12:44 pregabalin AdvReac Unknown Dopey Verified 02/04/25 12:44 General Stated Complaint: Chest Pain LOLITA: 2 Course Vital Signs Vital signs: Vital Signs Temperature 36.1 C L 03/02/25 20:05 Pulse 80 03/02/25 20:05 Respiratory Rate 20 03/02/25 20:05 Blood Pressure 177/89 H 03/02/25 20:05 Pulse Oximetry 99 03/02/25 20:05 Temperature 36.1 C L 03/02/25 20:05 Temperature Source Tympanic 03/02/25 20:05 Pulse 80 03/02/25 20:05 Respiratory Rate 20 03/02/25 20:05 Respiratory Effort Normal, Non-Labored 03/02/25 20:10 Respiratory Depth Normal 03/02/25 20:10 Respiratory Pattern Normal 03/02/25 20:10 Blood Pressure 177/89 H 03/02/25 20:05 Blood Pressure Position Supine 03/02/25 20:05 Pulse Oximetry 99 03/02/25 20:05 Oxygen Delivery Method Room Air 03/02/25 20:05 Oxygen Flow Rate 0 03/02/25 20:05 Pain Level 7 03/02/25 20:05 Lab/Test Results Lab/Test Results: Laboratory Tests Range/Units 03/02/25 03/02/25 03/02/25 20:23 20:47 21:04 WBC (4.4-10.8) 10^3/uL 4.73 RBC (3.93-5.22) 10^6/uL 3.36 L Hgb (11.2-15.7) g/dL 9.3 L Hct (36.0-46.0) % 29.7 L MCV (80-95) fL 88 MCH (27.0-33.0) pg 27.7 MCHC (32.0-36.0) % 31.3 L RDW (11.7-14.6) % 14.0 Plt Count (130-400) 10^3/uL 241 MPV (8.0-11.0) fL 9.5 Immature Gran % % 0.4 Neutrophils % % 65.3 Lymphocytes % % 18.0 Monocytes % % 14.6 Eosinophils % % 1.1 Basophils % % 0.6 Nucleated RBC % (0.0-0.3) % 0.0 Absolute Neutrophils (1.2-6.7) 10^3/uL 3.09 Absolute Lymphocytes (1.2-3.4) 10^3/uL 0.85 L Absolute Monocytes (0.1-0.8) 10^3/uL 0.69 Absolute Eosinophils (0.0-0.7) 10^3/uL 0.05 Absolute Basophils (0.0-0.2) 10^3/uL 0.03 Sodium Cancelled 142 Potassium Cancelled 3.6 Chloride Cancelled 105 Carbon Dioxide Cancelled 29.2 Anion Gap Cancelled 7.8 BUN Cancelled 16 Creatinine Cancelled 0.7 Est GFR (CKD-EPI 2020) Cancelled 89.58 Glucose Cancelled 173 H Calcium Cancelled 9.2 Magnesium Cancelled 1.7 L Total Bilirubin Cancelled 0.2 AST Cancelled 17 ALT Cancelled 13 L Alkaline Phosphatase Cancelled 85 Troponin I Cancelled 12 NT-Pro-B Natriuret Pep Cancelled 205 Total Protein Cancelled 8.0 Albumin Cancelled 3.0 L Medical Decision Making Quality:SDOH Health Related Social Needs: Health related social needs material hardship Health related social needs details pt. non verbal PFSH All Active Problems (Updated 03/02/25 @ 22:23 by Davey Dozier MD) Chest pain (Acute) Traumatic hematoma of forehead (Acute) CHI (closed head injury) (Acute) Major depression, recurrent, chronic (Acute) Aspiration into airway (Acute) Palliative care patient (Acute) ACP (advance care planning) (Acute) DNR (do not resuscitate) (Acute) Delusions (Acute) Dementia (Chronic) Bladder mass (Acute) Chronic back pain (Acute) Cystic mass of pancreas (Acute) Abnormal finding on CT scan (Acute) [place] coma scale score 3-8, at arrival to emergency department (Acute) Altered mental status (Acute) Encephalopathy (Acute) Acute UTI (Acute) Altered mental status (Acute) Failure to thrive in adult (Acute) Weakness (Acute) Falls frequently (Acute) Trouble talking (Acute) Acute UTI (Acute) Acute kidney injury superimposed on CKD (Acute) Lives in [facility] (Acute) Deficit in activities of daily living (ADL) (Acute) Closed fracture of distal end of radius (Acute) Closed fracture of left distal radius (Acute) Closed fracture of right distal radius (Acute) Heart murmur (Acute) Depression (Chronic) At high risk for skin breakdown (Acute) Periorbital edema (Acute) Hiatal hernia (Chronic) moderate Coronary artery calcification seen on CAT scan (Acute) Diverticula of colon (Acute) DJD (degenerative joint disease), lumbar (Acute) History of CVA (cerebrovascular accident) (Acute) remote Fracture of both wrists (Acute) Goiter (Acute) Fibromyalgia (Chronic) KWAME (obstructive sleep apnea) (Chronic) Chronic pain (Chronic) Movement disorder (Acute) Chronic renal insufficiency, stage III (moderate) (Acute) Anemia (Chronic) Hypertension (Chronic) Medical History (Updated 03/02/25 @ 22:23 by Davey Dozier MD) Low magnesium level UTI (urinary tract infection) Encephalopathy Seizure Psychiatric symptoms Ambulatory dysfunction AMS (altered mental status) Rhabdomyolysis Fall Primary osteoarthritis of left knee We will see the patient back in 4-1/2 months for possible repeat Synvisc 1 in her left knee would consider x-ray in her right knee if she is still significantly symptomatic Osteoarthritis of right knee Steroid injection: 04/05/2020 Has had previous viscosupplementation injections. 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) As treatment for a femoral neck fracture (DOI: 09/16/2020) History of back surgery Hx of cholecystectomy Social History Smoking/Tobacco Use Status: Never Smoking risk assessment performed?: Yes Alcohol Intake: never Drug use: Never Substance use type: does not use Housing: [facility] Do you feel safe at home: Yes Do you feel safe in your relationship?: Yes Additional Social history: health and rehab
[2025-03-02] MEDS: ACETAMINOPHEN 1,000 MG/100 ML BAG 400 MG IVPB (22:20)
[2025-03-02 22:41] LABS: Troponin I 12 ng/L (<or=51)
[2025-03-03 00:12] VITALS: BP 126/66; PULSE 79; RESP 18; TEMP 36.7; O2SAT 99
== END 2025-03-03 00:11 | disposition skilled nursing facility (03) ==
PROVIDERS: Emergency Provider General Practice; PCP Family Medicine
DX: R07.9 Chest pain, unspecified (principal); I10 Essential (primary) hypertension; Z86.73 Personal history of transient ischemic attack (TIA), and cerebral infarction without residual deficits; Z98.1 Arthrodesis status; Z79.82 Long term (current) use of aspirin
CPT/HCPCS: 36415; 80053; 93005; 96374; 96375; 71045; 83735; 83880; 84484; 85025; 93010; 99284; J0131; J3475

== ENCOUNTER 2025-04-01 22:13 | Inpatient (IN) | payer MEDICARE, MEDICAID, SELFPAY ==
[2025-04-01] VITALS (18 sets, daily range): BP systolic 137–171; BP diastolic 70–82; PULSE 56–74; RESP 7–20; TEMP 36.1; O2SAT 96–100
--- NOTE | 2025-04-01 22:15 | RT.EKG_ITS ---
APPROVED REPORT Exam: Resting ECG Reason for Exam: altered mental status Patient Location: E HR:56 bpm ECG Measurements Heart Rate 56 AXIS HI 210 P 65 QRSd 88 QRS 26 QT 455 T 44 QTc 439 Conclusion Sinus bradycardia...rate< 60 Physician: No STEMI
--- NOTE | 2025-04-01 22:24 | W.ED.GENAD ---
Discharge Plan Disposition Patient Disposition: Admit to [facility] Condition: Improving Discharge Details Clinical Impression: AMS (altered mental status) Admit Date/Time: 04/02/25 00:09 Admit Provider: Pedro Archibald Attending Provider: Pedro Archibald Primary Care Provider: Marixa Kurtz ED Provider: Los Carter Discharge Data Discharge Date/Time-TO BE ENTERED AT DEPARTURE: 04/02/25 01:39 HPI General Date/Time Provider Initiated Documentation: 04/01/25 22:21. HPI Narrative: 74-year-old female with a past medical history of depression, CVA, irritable bowel syndrome, fibromyalgia, obstructive sleep apnea, chronic renal insufficiency, hypertension, who [facility] secondary to notable functional and cognitive decline over the last 6 months who is a DNR/DNI with request for limited interventions of IV fluids and antibiotics if indicated but no heroic interventions who presents today for evaluation of altered mental status. [facility] states that the patient's last known well was at 7:30 PM. At around 9:45 PM the patient was checked on and she was noted to be quite obtunded. Blood glucose was checked and was normal, heart rate blood pressure and oxygen saturations were normal. GCS was around 10. She was brought to the ER for further assessment. Patient has no complaints, she is arousable with sternal rub, and currently has a GCS of 10 with localizing to pain, inappropriate words when sternal rubbing, and eyes that open to pain. However she is not able to add anything else to the conversation. EMS reports no new medications. No known falls or trauma. No other complaints at this time. No additional historical factors. Related Data Home Medications ?Medication ?Instructions ?Recorded ?Confirmed omeprazole 40 mg capsule,delayed 40 mg PO DAILY 05/19/14 04/02/25 release vitamin B complex 1 tab PO DAILY 01/05/20 04/02/25 aspirin 81 mg tablet,delayed 81 mg PO DAILY 06/23/21 04/02/25 release amlodipine 10 mg tablet 10 mg PO DAILY 01/14/22 04/02/25 naloxone 4 mg/actuation nasal spray 4 mg intranasal ONCE PRN 07/16/23 04/02/25 atorvastatin 20 mg tablet 20 mg PO QPM #30 tabs 08/23/24 04/02/25 acetaminophen 325 mg tablet 650 mg (2 x 325 mg) PO QID #30 tabs 09/01/24 04/02/25 mirtazapine 15 mg tablet 15 mg PO HS #30 tabs 09/01/24 04/02/25 multivit with mins-ferrous sulf 15 1 packet PO TID #30 ea 09/01/24 04/02/25 mg-folic 700 mcg oral powder packet (Phlexy-Vits) nitrofurantoin macrocrystal 100 mg 100 mg PO DAILY 12/21/24 04/02/25 capsule levetiracetam 500 mg tablet 500 mg PO BID #1 tab 01/29/25 04/02/25 lorazepam 1 mg tablet 1 mg PO BID PRN 01/29/25 04/02/25 oxycodone 5 mg tablet See Rx Instructions PO BID PRN 01/29/25 04/02/25 risperidone 1 mg tablet 1 mg PO BID 01/29/25 04/02/25 levetiracetam 100 mg/mL oral 500 mg PO BID 04/02/25 04/02/25 solution lorazepam 0.5 mg tablet 0.5 mg PO BID 04/02/25 04/02/25 Previous Rx's ?Medication ?Instructions ?Recorded atorvastatin 20 mg tablet 20 mg PO QPM #30 tabs 08/23/24 acetaminophen 325 mg tablet 650 mg (2 x 325 mg) PO QID #30 tabs 09/01/24 mirtazapine 15 mg tablet 15 mg PO HS #30 tabs 09/01/24 multivit with mins-ferrous sulf 15 1 packet PO TID #30 ea 09/01/24 mg-folic 700 mcg oral powder packet (Phlexy-Vits) levetiracetam 500 mg tablet 500 mg PO BID #1 tab 01/29/25 Allergies Allergy/AdvReac Type Severity Reaction Status Date / Time sulfamethoxazole (From Allergy Diarrhea Verified 04/02/25 01:26 Bactrim) trimethoprim (From Bactrim) Allergy Diarrhea Verified 04/02/25 01:26 morphine AdvReac Intermediate Psychosis Verified 04/02/25 01:26 baclofen AdvReac Unknown Unknown Verified 04/02/25 01:26 chlorthalidone AdvReac Unknown Unknown Verified 04/02/25 01:26 codeine AdvReac Unknown Unknown Verified 04/02/25 01:26 dextromethorphan AdvReac Unknown Unknown Verified 04/02/25 01:26 gabapentin (From Neurontin) AdvReac Unknown Unknown Verified 04/02/25 01:26 hydrochlorothiazide AdvReac Unknown Unknown Verified 04/02/25 01:26 pregabalin AdvReac Unknown Dopey Verified 04/02/25 01:26 General Stated Complaint: AMS/LOC LOLITA: 3 Exam Narrative Exam Narrative: 1.Const: Well-nourished, Well-developed, appearing stated age 2.Eyes: PERRL, no conjunctival injection, and symmetrical lids. 3.ENT: Atraumatic external nose and ears. Moist MM. Neck: Symmetric, trachea midline, No thyromegaly. 4.CVS: +S1/S2, Peripheral pulses 2+ and equal in all extremities. Brisk capillary refill in all extremities. 5.RESP: Unlabored respiratory effort. Clear to auscultation bilaterally. No wheezes rales or rhonchi 6.GI: Soft, Nontender/Nondistended, No hepatosplenomegaly. No guarding or rebound. 7.MSK: Normocephalic/Atraumatic, Extremities w/o deformity or ttp No cyanosis or clubbing, Normal movement of all extremities 8.Skin: Warm, Dry. No rashes or lesions. 9.Neuro: Patient is notably altered with a GCS of 10 (2+ eyes, 3+ verbal response, and 5+ motor response) in the altered state she does move her right arm, but does not show any significant movement for her left arm or her lower extremities. Her gaze and head drift to the left, as well as a notable drooping of her left face, however she does have a component of bilateral droop. 10.Psych: (AAO) x0 Course Vital Signs Vital signs: Vital Signs Temperature 36.1 C L 04/01/25 22:14 Pulse 73 04/01/25 22:14 Respiratory Rate 20 04/01/25 22:14 Blood Pressure 146/82 H 04/01/25 22:14 Pulse Oximetry 96 04/01/25 22:14 Temperature 36.1 C L 04/01/25 22:20 Pulse 73 04/01/25 22:20 Respiratory Rate 20 04/01/25 22:20 Respiratory Effort Normal 04/01/25 22:20 Respiratory Depth Normal 04/01/25 22:20 Respiratory Pattern Normal 04/01/25 22:20 Blood Pressure 146/82 H 04/01/25 22:20 Blood Pressure Position Sitting 04/01/25 22:20 Pulse Oximetry 96 04/01/25 22:20 Oxygen Delivery Method Room Air 04/01/25 22:20 Oxygen Flow Rate 0 04/01/25 22:20 Medical Decision Making 74-year-old female with a past medical history of depression, CVA, irritable bowel syndrome, fibromyalgia, obstructive sleep apnea, chronic renal insufficiency, hypertension, who currently resides at [facility] secondary to notable functional and cognitive decline over the last 6 months who is a DNR/DNI with request for limited interventions of IV fluids and antibiotics if indicated but no heroic interventions who presents today for evaluation of altered mental status. [facility] and rehab states that the patient's last known well was at 7:30 PM. At around 9:45 PM the patient was checked on and she was noted to be quite obtunded. Blood glucose was checked and was normal, heart rate blood pressure and oxygen saturations were normal. GCS was around 10. She was brought to the ER for further assessment. Patient has no complaints, she is arousable with sternal rub, and currently has a GCS of 10 with localizing to pain, inappropriate words when sternal rubbing, and eyes that open to pain. However she is not able to add anything else to the conversation. EMS reports no new medications. No known falls or trauma. No other complaints at this time. No additional historical factors. Patient is notably altered with a GCS of 10 (2+ eyes, 3+ verbal response, and 5+ motor response) in the altered state she does move her right arm, but does not show any significant movement for her left arm or her lower extremities. Her gaze and head drift to the left, as well as a notable drooping of her left face, however she does have a component of bilateral droop. However vital signs notably stable with no hypoxemia, tachypnea, fever, tachycardia, hypotension or signs of shock. While she certainly has had worsening cognitive decline as of late, this is not her baseline. Differential includes metabolic abnormality, stroke, dehydration or infection. We will evaluate for these etiologies, gently rehydrate, monitor closely and reassess. On review of the palliative care note from 01/28/2025 it appears that on that thorough encounter at the patient certainly does not want much done. In fact it sounds like there was a point in the conversation or she did not want to go to the hospital or have IV sticks at all. However after conversation with both the daughter and the patient they settled on a decision for DNR/DNI with limited interventions for IV antibiotics and IV fluids but no heroic components otherwise. The patient is near the edge of the window for TNK, however I do not think that administration of aggressive thrombolysis would be congruent with the wishes that she expressed on her previous admissions and to her palliative care team. Regardless we will still get CT imaging, and monitor closely. 11 PM Laboratory workup shows no white count or bandemia. Still pending VBG and electrolytes. CTA shows no evidence of stroke or large occlusion. Pending the remainder of labs. We will reach out to the patient's family. [address] scan negative for acute process, no evidence of stroke. Discussed the case with the patient's family, they state that she has actually been declining significantly over the last few weeks. We did discuss risks and benefits of TNK, and family does not think that this is what the patient would want, nor do I upon review of the records. Family states that she did have an appointment today at [facility], and took no nap, and this could be a reflection of exhaustion. However differential still does include dehydration versus potential stroke. We will plan to admit here, consult palliative care in the morning, and potentially get an MRI. Discussed the case with the hospitalist Dr. Archibald, he agrees with the assessment and plan. I have extensively reviewed the treatment plan with the patient. I have addressed all patient concerns at this time. I have also discussed the plan with the admitting physician and they agree with the current assessment and plan and have agreed to assume responsibility for the patient. All parties demonstrate verbal understanding and agreement with our assessment and plan at this time. The documentation in this chart was dictated using [employer] dictation software. Please excuse any dictation errors. 1:59 AM Of note as the patient was going up to [facility], she had an improvement of her symptoms and began yelling and looking around and moving all extremities. Left middle cerebral artery: No occlusion or significant stenosis. No aneurysm. Left anterior cerebral artery: No occlusion or significant stenosis. No aneurysm. POSTERIOR CIRCULATION: Right vertebral artery: Moderate multifocal stenosis of right vertebral artery with calcified plaque. Left vertebral artery: No occlusion or significant stenosis. No aneurysm. Basilar artery: No occlusion or significant stenosis. No aneurysm. Right posterior cerebral artery: No occlusion or significant stenosis. No aneurysm. Left posterior cerebral artery: No occlusion or significant stenosis. No aneurysm. HEAD: Brain: Encephalomalacia in the right occipital lobe. Calcifications in bilateral basal ganglia. Cerebral ventricles: Normal. No ventriculomegaly. Bones: Unremarkable. No acute fracture. Paranasal sinuses: Mild mucosal thickening of bilateral maxillary sinus with air-fluid level in the right maxillary sinus. Mastoid air cells: Visualized mastoids are normal. No mastoid effusion. Soft tissues: Unremarkable. Other findings: Vascular calcifications. IMPRESSION: 1. No large vessel occlusion. 2. Unremarkable CT head. FINDINGS: Right common carotid artery: No stenosis. No dissection or occlusion. Right internal carotid artery: No stenosis of the extracranial segment. No dissection or occlusion. Right external carotid artery: No occlusion or stenosis of the origin. Left common carotid artery: No stenosis. No dissection or occlusion. Left internal carotid artery: No stenosis of the extracranial segment. No dissection or occlusion. Left external carotid artery: No occlusion or stenosis of the origin. Right vertebral artery: No stenosis. No dissection or occlusion. Left vertebral artery: No stenosis. No dissection or occlusion. Soft tissues: Normal. No significant soft tissue swelling. Bones/joints: Anterior spinal fixation of T4, T5, T6 and T7 vertebra. IMPRESSION: No stenosis or occlusion. Quality:SDOH Health Related Social Needs: Health related social needs material hardship Health related social needs details pt. non verbal PFSH All Active Problems (Updated 04/02/25 @ 05:49 by Los Carter DO) AMS (altered mental status) (Acute) Acute dehydration (Acute) Chest pain (Acute) Major depression, recurrent, chronic (Acute) Aspiration into airway (Acute) Palliative care patient (Acute) ACP (advance care planning) (Acute) DNR (do not resuscitate) (Acute) Delusions (Acute) Dementia (Chronic) Bladder mass (Acute) Chronic back pain (Chronic) Cystic mass of pancreas (Acute) Abnormal finding on CT scan (Acute) Sharifa coma scale score 3-8, at arrival to emergency department (Acute) Altered mental status (Acute) Encephalopathy (Acute) Acute UTI (Acute) Altered mental status (Acute) Failure to thrive in adult (Acute) Weakness (Acute) Falls frequently (Acute) Trouble talking (Acute) Acute UTI (Acute) Acute kidney injury superimposed on CKD (Acute) Lives in fdc (Acute) Deficit in activities of daily living (ADL) (Acute) Closed fracture of distal end of radius (Acute) Closed fracture of left distal radius (Acute) Closed fracture of right distal radius (Acute) Heart murmur (Acute) Depression (Chronic) At high risk for skin breakdown (Acute) Periorbital edema (Acute) Hiatal hernia (Chronic) moderate Coronary artery calcification seen on CAT scan (Acute) Diverticula of colon (Acute) DJD (degenerative joint disease), lumbar (Acute) History of CVA (cerebrovascular accident) (Acute) remote Fracture of both wrists (Acute) Goiter (Acute) Fibromyalgia (Chronic) KWAME (obstructive sleep apnea) (Chronic) Chronic pain (Chronic) Movement disorder (Acute) Chronic renal insufficiency, stage III (moderate) (Acute) Anemia (Chronic) Hypertension (Chronic) Medical History Low magnesium level UTI (urinary tract infection) Encephalopathy Seizure Psychiatric symptoms Ambulatory dysfunction AMS (altered mental status) Rhabdomyolysis Fall Primary osteoarthritis of left knee We will see the patient back in 4-1/2 months for possible repeat Synvisc 1 in her left knee would consider x-ray in her right knee if she is still significantly symptomatic Osteoarthritis of right knee Steroid injection: 04/05/2020 Has had previous viscosupplementation injections. 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) As treatment for a femoral neck fracture (DOI: 09/16/2020) History of back surgery Hx of cholecystectomy Social History Smoking/Tobacco Use Status: Never Smoking risk assessment performed?: Yes Alcohol Intake: never Drug use: Never Substance use type: does not use Housing: fdc Do you feel safe at home: Yes Do you feel safe in your relationship?: Yes Additional Social history: [facility]
[2025-04-01 22:30] LABS: Abs Immature Grans 0.02 10^3/uL (0.0-0.06); HCT 28.1 % (36.0-46.0); HGB 9.0 g/dL (11.2-15.7); Immature Grans % 0.4 %; MCH 28.0 pg (27.0-33.0); MCHC 32.0 % (32.0-36.0); MCV 88 fL (80-95); MPV 10.1 fL (8.0-11.0); Platelet Count 221 10^3/uL (130-400); RBC 3.21 10^6/uL (3.93-5.22); RDW 14.3 % (11.7-14.6); RDW-SD 45.4 fL; WBC 4.55 10^3/uL (4.4-10.8)
[2025-04-01] MEDS: Omnipaque 350 MG/ML 100 ML BTL IJ (22:39)
[2025-04-01] MEDS: Normal Saline - Diluent 50 ML VIAL IJ (22:39)
[2025-04-01] MEDS: Normal Saline Flush 10 ML SYR IVP (22:40)
--- NOTE | 2025-04-01 22:48 | DI.CT_ITS ---
Exam(s) CT BRAIN NECK CTA EXAM: CT BRAIN NECK CTA CLINICAL HISTORY: AMS, Leftward gaze, stroke?. TECHNIQUE: Imaging Protocol: Axial CT angiography was performed with multi- slice acquisition and multi-planar and MIP reconstructions. CONTRAST MATERIAL: Intravenous: Omnipaque 350 Contrast volume:70 ml COMPARISON: CT CT HEAD CERVICAL SPINE WO from 02/16/2025 FINDINGS: CT Head W/O and W contrast: Ventricles and Extra axial spaces: Normal in size and morphology for the patient's age. Hemorrhage: None. Cerebral parenchyma: No evidence of acute infarct or mass. Large old right occipital infarct. Old bilateral basal ganglia lacunar infarcts. White matter changes consistent with small vessel disease. Midline shift: None. Brainstem/Cerebellum: No acute findings.. Calvarium: Normal. Visualized Paranasal sinuses/Mastoids: mucous retention in the maxillary sinuses. Soft Tissues: Unremarkable. Enhancement: Normal. Venous sinuses are patent. CTA Brain W: Internal Carotid Arteries: Right: Mural calcification in the cavernous portion. No aneurysm, occlusion or significant stenosis. Left: Mural calcification in the cavernous portion. No aneurysm, occlusion or significant stenosis. Middle Cerebral Arteries: Right: No aneurysm, occlusion or significant stenosis. Left: No aneurysm, occlusion or significant stenosis. Anterior Cerebral Arteries: Right: No aneurysm, occlusion or significant stenosis. Left: No aneurysm, occlusion or significant stenosis. Posterior cerebral Arteries: Right: No aneurysm, occlusion or significant stenosis. Left: No aneurysm, occlusion or significant stenosis. Vertebral Arteries: Right: Calcific plaque causing multifocal areas of stenosis. No dissection or occlusion. Left: No aneurysm, occlusion or significant stenosis. Basilar Artery: No aneurysm, occlusion or significant stenosis. CTA Neck W: Visualized aorta: Unremarkable. Visualized pulmonary arteries: Unremarkable. Subclavian arteries: Unremarkable. Common Carotid: No significant plaque. Right: No dissection, occlusion or significant stenosis. Left: No dissection, occlusion or significant stenosis. External Carotid: Right: No dissection, occlusion or significant stenosis. Left: No dissection, occlusion or significant stenosis. Internal Carotid: No significant plaque. Right: No dissection, occlusion or significant stenosis. Left: No dissection, occlusion or significant stenosis. Vertebral Artery: No significant plaque. Right: No dissection, occlusion or significant stenosis. Left: No dissection, occlusion or significant stenosis. Lung Apices: No acute findings. Bones: No acute abnormality. Fusion hardware noted. Soft Tissues: Normal. IMPRESSION: 1. CTA brain: Calcification in the right vertebral artery with moderate stenosis distally. Calcification within the in terminal carotid arteries without significant stenosis. 2. Head CT: Old right occipital infarct. No acute abnormality. 3. CTA neck: No evidence of occlusion, significant stenosis or dissection. The preliminary [facility] report was reviewed. RADIATION DOSE DELIVERED: 1,867.42mGy.cm Total DLP DATA REPOSITORY: All CT scans at this facility are submitted to the National Radiology Data Registry (NRDR) Dose Index Registry (DIR) with the [employer] (ACR). RADIATION OPTIMIZATION: All CT scans at this facility use at least one of these dose optimization techniques: automated exposure control; mA and/or kV adjustment per patient size (includes targeted exams where dose is matched to clinical indication); or iterative reconstruction.
[2025-04-01] MEDS: Normal Saline 500 ML IV (22:49)
[2025-04-01 22:56] LABS: ALT 9 U/L (14-59); AST 13 U/L (15-37); Albumin 2.7 g/dL (3.4-5.0); Alkaline Phosphatase 74 U/L (46-116); Anion Gap 7.7 mmol/L (3-11); BUN 25 mg/dL (7-18); Bilirubin, Total 0.3 mg/dL (0.2-1.0); CO2 29.3 mmol/L (21.0-32.0); Calcium 8.9 mg/dL (8.5-10.1); Chloride 110 mmol/L (98-107); Estimated GFR 76.31 (mL/min/1.73m2); Glucose 115 mg/dL (74-106); Potassium 4.0 mmol/L (3.5-5.1); Sodium 147 mmol/L (136-145); TSH (W/Ref FT4) 0.65 uIU/mL (0.36-3.74); Total Protein 7.4 g/dL (6.4-8.2); Troponin I 12 ng/L (<or=51)
[2025-04-01 23:00] LABS: BE (Venous) 5 mmol/L (-2-3); HCO3 (Venous) 29 mmol/L (23-28); O2 Sat (Venous) 86 %; TCO2 (Venous) 28 mmol/L (24-29); pCO2 (Venous) 48 mmHg (41-51); pO2 (Venous) 51 mmHg
--- NOTE | 2025-04-01 23:00 | DI.[facility]_ITS ---
PROCEDURE INFORMATION: Exam: CTA Head Without And With Contrast, Arteriography Exam date and time: 04/01/2025 10:28 PM Age: 74 years old Clinical indication: Stroke-like symptoms; Altered mental status/memory loss and other: Leftward gaze; Additional info: AMS, leftward gaze, stroke? TECHNIQUE: Imaging protocol: Computed tomographic angiography of the head without and with contrast. Exam focused on the arteries. 3D rendering (Not supervised by radiologist): MIP and/or 3D reconstructed images were created by the technologist. Radiation optimization: All CT scans at this facility use at least one of these dose optimization techniques: automated exposure control; mA and/or kV adjustment per patient size (includes targeted exams where dose is matched to clinical indication); or iterative reconstruction. Contrast material: [id number]; Contrast volume: 70 ml; Contrast route: INTRAVENOUS (IV); Other technique: STROKE PROTOCOL was implemented. COMPARISON: CT BRAIN NECK CTA 11/30/2023 9:52 PM FINDINGS: ANTERIOR CIRCULATION: Right internal carotid artery: Mild stenosis of right internal carotid artery in the cavernous portion by calcified plaque. Right middle cerebral artery: No occlusion or significant stenosis. No aneurysm. Right anterior cerebral artery: No occlusion or significant stenosis. No aneurysm. Left internal carotid artery: Intracranial segment is patent with no significant stenosis. No aneurysm. Left middle cerebral artery: No occlusion or significant stenosis. No aneurysm. Left anterior cerebral artery: No occlusion or significant stenosis. No aneurysm. POSTERIOR CIRCULATION: Right vertebral artery: Moderate multifocal stenosis of right vertebral artery with calcified plaque. Left vertebral artery: No occlusion or significant stenosis. No aneurysm. Basilar artery: No occlusion or significant stenosis. No aneurysm. Right posterior cerebral artery: No occlusion or significant stenosis. No aneurysm. Left posterior cerebral artery: No occlusion or significant stenosis. No aneurysm. HEAD: Brain: Encephalomalacia in the right occipital lobe. Calcifications in bilateral basal ganglia. Cerebral ventricles: Normal. No ventriculomegaly. Bones: Unremarkable. No acute fracture. Paranasal sinuses: Mild mucosal thickening of bilateral maxillary sinus with air-fluid level in the right maxillary sinus. Mastoid air cells: Visualized mastoids are normal. No mastoid effusion. Soft tissues: Unremarkable. Other findings: Vascular calcifications. IMPRESSION: 1. No large vessel occlusion. 2. Unremarkable CT head. ASSESSMENT: ASPECTS ([place] Stroke Program Early CT Score) is 10. PROCEDURE INFORMATION: Exam: CTA Neck Without And With Contrast Exam date and time: 04/01/2025 10:28 PM Age: 74 years old Clinical indication: Stroke-like symptoms; Altered mental status/memory loss and other: Leftward gaze; Additional info: AMS, leftward gaze, stroke? TECHNIQUE: Imaging protocol: Computed tomographic angiography of the neck without and with contrast. Exam focused on the cervical segments of the vasculature. 3D rendering (Not supervised by radiologist): MIP and/or 3D reconstructed images were created by the technologist. Radiation optimization: All CT scans at this facility use at least one of these dose optimization techniques: automated exposure control; mA and/or kV adjustment per patient size (includes targeted exams where dose is matched to clinical indication); or iterative reconstruction. Contrast material: [id number]; Contrast volume: 70 ml; Contrast route: INTRAVENOUS (IV); COMPARISON: CT BRAIN NECK CTA 11/30/2023 9:52 PM FINDINGS: Right common carotid artery: No stenosis. No dissection or occlusion. Right internal carotid artery: No stenosis of the extracranial segment. No dissection or occlusion. Right external carotid artery: No occlusion or stenosis of the origin. Left common carotid artery: No stenosis. No dissection or occlusion. Left internal carotid artery: No stenosis of the extracranial segment. No dissection or occlusion. Left external carotid artery: No occlusion or stenosis of the origin. Right vertebral artery: No stenosis. No dissection or occlusion. Left vertebral artery: No stenosis. No dissection or occlusion. Soft tissues: Normal. No significant soft tissue swelling. Bones/joints: Anterior spinal fixation of T4, T5, T6 and T7 vertebra. IMPRESSION: No stenosis or occlusion. REFERENCES: NASCET CRITERIA. The degree of stenosis in the cervical segment of the internal carotid artery is based on NASCET criteria. Normal is no stenosis. Mild is less than 50% stenosis. Moderate is 50-69% stenosis. Severe is 70% to 99% stenosis. Total occlusion is no detectable patent lumen. Dictated and Authenticated by: Ponce Alvarado MD. Orderin Emma Madison MD
--- NOTE | 2025-04-01 23:50 | W.PM.HP.N ---
Date of service: 04/01/25 Time of Service: 23:50 Assessment and Plan Assessment and plan (1) Encephalopathy: Start date: 04/01/25 Status: Acute Assessment and plan: This is a 74-year-old lady who presents with encephalopathy and mild dehydration with no other obvious reasons for change of mental status. She does have chronic UTIs but not appear to have acute UTI. She has a history of CVA with seizures but did not have seizure-like activity. She has progressively been deteriorating over the last 6 months with dementia and altered mental status and presentation of encephalopathy in the recent past. She does not appear to be having active seizures. CTA of the head and neck were unrevealing for acute processes and MRI of the brain is scheduled for the morning. Patient's labs do not indicate metabolic abnormalities other than mild dehydration with hypernatremia which we treated with IV hydration. Patient is approaching comfort care with deteriorating mental status in the last 6 months. She is a DNR/DNI. (2) Acute dehydration: Start date: 04/01/25 Status: Acute Assessment and plan: With hypernatremia in hydration and trending labs. (3) KWAME (obstructive sleep apnea): Status: Chronic Assessment and plan: CPAP/BiPAP at home settings using home machine if available. (4) CVA (cerebral vascular accident): Assessment and plan: No evidence of acute process with MRI of the brain pending in the morning. Patient will continue on Keppra with seizures most likely associated with previous CVA. She does have mostly left-sided hemiparesis persisting. (5) Dementia: Status: Chronic Assessment and plan: Progressive and most likely vascular dementia. MRI of the brain as mentioned. Currently patient for therapy. (6) Recurrent UTI (urinary tract infection): Assessment and plan: Hold nitrofurantoin for now since this can cause mental status changes as side effect. (7) Anemia: Status: Chronic Assessment and plan: Stable most likely not contributing to acute processes. (8) Chronic back pain: Status: Chronic Assessment and plan: Patient does have a history of chronic pain with back pain on oxycodone and lorazepam. These can be sedating. Hold sedating medications for now PDMP was consistent with prescribed medications as an outpatient in the spring 2024, but does not reflect half-way treatments. Urine drug screen will be performed. Pain medication should be used with precaution in the elderly. 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 History of Present Illness History of Present Illness Chief Complaint: Altered mental status and unresponsiveness. Narrative: This is a 74-year-old female patient who resides at a local half-way who was noticed to be at her baseline at supper on the evening of presentation to the ED but had a sudden change in mental status and neurological status being found obtunded with rounds. She does have a history of duodenal vein mental status over the last 6 months and she is a DNR/DNI but wants treatment for reversible problems. She has had no recent medical changes but has had encephalopathy diagnosis in the recent past. She did have imaging in the ED which did not reveal any acute neurological changes or occlusions with CTA of the head and neck performed. Teleneurology was not consulted. The patient already is on aspirin. MRI of brain is ordered for the morning. There is no acute medical problem to explain her change in mental status and as stated this has been a stuttering, decline in mental status recently. Her urinalysis was clear with a history of chronic UTIs on nitrofurantoin, she also appears slightly dry with hyponatremia and will be IV hydrated. The patient is a DNR/DNI but she is not yet to the point of comfort measures only. She will be admitted for IV hydration and trending labs with supportive care. Review of Systems Narrative: 13 point review of system as per HPI and information from family and caregivers, otherwise unobtainable. COUNTS INCLUDE 234 BEDS AT THE [facility] All Active Problems (Updated 04/02/25 @ 08:03 by Pedro Archibald) AMS (altered mental status) (Acute) Acute dehydration (Acute) Chest pain (Acute) Major depression, recurrent, chronic (Acute) Aspiration into airway (Acute) Palliative care patient (Acute) ACP (advance care planning) (Acute) DNR (do not resuscitate) (Acute) Delusions (Acute) Dementia (Chronic) Bladder mass (Acute) Chronic back pain (Chronic) Cystic mass of pancreas (Acute) Abnormal finding on CT scan (Acute) Sharifa coma scale score 3-8, at arrival to emergency department (Acute) Altered mental status (Acute) Encephalopathy (Acute) Acute UTI (Acute) Altered mental status (Acute) Failure to thrive in adult (Acute) Weakness (Acute) Falls frequently (Acute) Trouble talking (Acute) Acute UTI (Acute) Acute kidney injury superimposed on CKD (Acute) Lives in half-way (Acute) Deficit in activities of daily living (ADL) (Acute) Closed fracture of distal end of radius (Acute) Closed fracture of left distal radius (Acute) Closed fracture of right distal radius (Acute) Heart murmur (Acute) Depression (Chronic) At high risk for skin breakdown (Acute) Periorbital edema (Acute) Hiatal hernia (Chronic) moderate Coronary artery calcification seen on CAT scan (Acute) Diverticula of colon (Acute) DJD (degenerative joint disease), lumbar (Acute) History of CVA (cerebrovascular accident) (Acute) remote Fracture of both wrists (Acute) Goiter (Acute) Fibromyalgia (Chronic) KWAME (obstructive sleep apnea) (Chronic) Chronic pain (Chronic) Movement disorder (Acute) Chronic renal insufficiency, stage III (moderate) (Acute) Anemia (Chronic) Hypertension (Chronic) Medical History Low magnesium level UTI (urinary tract infection) Encephalopathy Seizure Psychiatric symptoms Ambulatory dysfunction AMS (altered mental status) Rhabdomyolysis Fall Primary osteoarthritis of left knee We will see the patient back in 4-1/2 months for possible repeat Synvisc 1 in her left knee would consider x-ray in her right knee if she is still significantly symptomatic Osteoarthritis of right knee Steroid injection: 04/05/2020 Has had previous viscosupplementation injections. 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) As treatment for a femoral neck fracture (DOI: 09/16/2020) History of back surgery Hx of cholecystectomy Social History Smoking/Tobacco Use Status: Never Smoking risk assessment performed?: Yes Alcohol Intake: never Drug use: Never Substance use type: does not use Housing: half-way Do you feel safe at home: Yes Do you feel safe in your relationship?: Yes Additional Social history: health and rehab Meds Allergies and Home Medications Allergies Allergy/AdvReac Type Severity Reaction Status Date / Time sulfamethoxazole (From Allergy Diarrhea Verified 04/02/25 01:26 Bactrim) trimethoprim (From Bactrim) Allergy Diarrhea Verified 04/02/25 01:26 morphine AdvReac Intermediate Psychosis Verified 04/02/25 01:26 baclofen AdvReac Unknown Unknown Verified 04/02/25 01:26 chlorthalidone AdvReac Unknown Unknown Verified 04/02/25 01:26 codeine AdvReac Unknown Unknown Verified 04/02/25 01:26 dextromethorphan AdvReac Unknown Unknown Verified 04/02/25 01:26 gabapentin (From Neurontin) AdvReac Unknown Unknown Verified 04/02/25 01:26 hydrochlorothiazide AdvReac Unknown Unknown Verified 04/02/25 01:26 pregabalin AdvReac Unknown Dopey Verified 04/02/25 01:26 Home Medications ?Medication ?Instructions ?Recorded ?Confirmed ?Type omeprazole 40 mg capsule,delayed 40 mg PO DAILY 05/19/14 04/02/25 History release vitamin B complex 1 tab PO DAILY 01/05/20 04/02/25 History aspirin 81 mg tablet,delayed 81 mg PO DAILY 06/23/21 04/02/25 History release amlodipine 10 mg tablet 10 mg PO DAILY 01/14/22 04/02/25 History naloxone 4 mg/actuation nasal spray 4 mg intranasal ONCE PRN 07/16/23 04/02/25 History atorvastatin 20 mg tablet 20 mg PO QPM #30 tabs 08/23/24 04/02/25 Rx acetaminophen 325 mg tablet 650 mg (2 x 325 mg) PO QID #30 tabs 09/01/24 04/02/25 Rx mirtazapine 15 mg tablet 15 mg PO HS #30 tabs 09/01/24 04/02/25 Rx multivit with mins-ferrous sulf 15 1 packet PO TID #30 ea 09/01/24 04/02/25 Rx mg-folic 700 mcg oral powder packet (Phlexy-Vits) nitrofurantoin macrocrystal 100 mg 100 mg PO DAILY 12/21/24 04/02/25 History capsule levetiracetam 500 mg tablet 500 mg PO BID #1 tab 01/29/25 04/02/25 Rx lorazepam 1 mg tablet 1 mg PO BID PRN 01/29/25 04/02/25 History oxycodone 5 mg tablet See Rx Instructions PO BID PRN 01/29/25 04/02/25 History risperidone 1 mg tablet 1 mg PO BID 01/29/25 04/02/25 History levetiracetam 100 mg/mL oral 500 mg PO BID 04/02/25 04/02/25 History solution lorazepam 0.5 mg tablet 0.5 mg PO BID 04/02/25 04/02/25 History Exam Narrative Exam Narrative: General: Patient is an almost cachectic appearing lying in bed with eyes open but minimally responding to verbal stimuli. She is not moving her left side as her right. She is not oriented to person, place or time. She is in no acute distress. HEENT: Normocephalic, masklike facies, no facial edema eyes with pupils equal and reactive to light symmetrically, extraocular movement intact and sclera anicteric with small pterygium over medial central left sclera. Oropharynx with dry mucosa. Neck: Supple without JVD. Back: Kyphotic without CVA tenderness. Lungs: Bronchovesicular breath sounds diffusely with no focalizing rales or rhonchi. No expiratory wheeze. Breast: Exam deferred. Heart: Regular rate and rhythm with no murmurs or gallops appreciated. Abdomen: Scaphoid contour, soft nontender without palpable hepatosplenomegaly. Bowel sounds positive in all quadrants. No guarding or rebound. Genitalia/rectal: Exam deferred. Hawkins catheter in place. Extremities: No clubbing, cyanosis or pitting edema. Muscle wasting diffusely. Fair capillary refill. Skin: Pale, warm and dry. Neuro: Cranial nerves II through XII grossly intact by anterior testing, no tremor. 2 out of 5 muscle strength on the left compared to 5 right patient is agreeable to a exam and since not following commands well Site: Patient is encephalopathic without hallucinations and has become more responsive after being more consistent with delirium and dementia. She is not manifesting abnormal thought processes as mentioned. Remote and recent memory not testable. Results Imaging Imaging Studies: Exam: CTA Head Without And With Contrast, Arteriography Exam date and time: 04/01/2025 10:28 PM Age: 74 years old Clinical indication: Stroke-like symptoms; Altered mental status/memory loss and other: Leftward gaze; Additional info: AMS, leftward gaze, stroke? COMPARISON: CT BRAIN NECK CTA 11/30/2023 9:52 PM FINDINGS: ANTERIOR CIRCULATION: Right internal carotid artery: Mild stenosis of right internal carotid artery in the cavernous portion by calcified plaque. Right middle cerebral artery: No occlusion or significant stenosis. No aneurysm. Right anterior cerebral artery: No occlusion or significant stenosis. No aneurysm. Left internal carotid artery: Intracranial segment is patent with no significant stenosis. No aneurysm. Left middle cerebral artery: No occlusion or significant stenosis. No aneurysm. Left anterior cerebral artery: No occlusion or significant stenosis. No aneurysm. POSTERIOR CIRCULATION: Right vertebral artery: Moderate multifocal stenosis of right vertebral artery with calcified plaque. Left vertebral artery: No occlusion or significant stenosis. No aneurysm. Basilar artery: No occlusion or significant stenosis. No aneurysm. Right posterior cerebral artery: No occlusion or significant stenosis. No aneurysm. Left posterior cerebral artery: No occlusion or significant stenosis. No aneurysm. HEAD: Brain: Encephalomalacia in the right occipital lobe. Calcifications in bilateral basal ganglia. Cerebral ventricles: Normal. No ventriculomegaly. Bones: Unremarkable. No acute fracture. Paranasal sinuses: Mild mucosal thickening of bilateral maxillary sinus with air-fluid level in the right maxillary sinus. Mastoid air cells: Visualized mastoids are normal. No mastoid effusion. Soft tissues: Unremarkable. Other findings: Vascular calcifications. IMPRESSION: 1. No large vessel occlusion. 2. Unremarkable CT head. ASSESSMENT: ASPECTS ([place] Stroke Program Early CT Score) is 10. PROCEDURE INFORMATION: Exam: CTA Neck Without And With Contrast Exam date and time: 04/01/2025 10:28 PM Age: 74 years old Clinical indication: Stroke-like symptoms; Altered mental status/memory loss and other: Leftward gaze; Additional info: AMS, leftward gaze, stroke? COMPARISON: CT BRAIN NECK CTA 11/30/2023 9:52 PM FINDINGS: Right common carotid artery: No stenosis. No dissection or occlusion. Right internal carotid artery: No stenosis of the extracranial segment. No dissection or occlusion. Right external carotid artery: No occlusion or stenosis of the origin. Left common carotid artery: No stenosis. No dissection or occlusion. Left internal carotid artery: No stenosis of the extracranial segment. No dissection or occlusion. Left external carotid artery: No occlusion or stenosis of the origin. Right vertebral artery: No stenosis. No dissection or occlusion. Left vertebral artery: No stenosis. No dissection or occlusion. Soft tissues: Normal. No significant soft tissue swelling. Bones/joints: Anterior spinal fixation of T4, T5, T6 and T7 vertebra. IMPRESSION: No stenosis or occlusion. Labs 04/02/25 06:42 04/02/25 06:42 Labs: Laboratory Results - last 24 hr 04/01/25 04/01/25 22:22 22:51 WBC 4.55 RBC 3.21 L Hgb 9.0 L Hct 28.1 L MCV 88 MCH 28.0 MCHC 32.0 RDW 14.3 Plt Count 221 MPV 10.1 Immature Gran % 0.4 Neutrophils % 59.3 Lymphocytes % 24.0 Monocytes % 14.3 Eosinophils % 1.1 Basophils % 0.9 Nucleated RBC % 0.0 Absolute Neutrophils 2.70 Absolute Lymphocytes 1.09 L Absolute Monocytes 0.65 Absolute Eosinophils 0.05 Absolute Basophils 0.04 VBG pH 7.40 VBG pCO2 48 VBG pO2 51 VBG HCO3 29 H VBG Total CO2 28 VBG O2 Saturation 86 VBG Base Excess 5 H Sodium 147 H Potassium 4.0 Chloride 110 H Carbon Dioxide 29.3 Anion Gap 7.7 BUN 25 H Creatinine 0.8 Est GFR (CKD-EPI 2020) 76.31 Glucose 115 H Calcium 8.9 Total Bilirubin 0.3 AST 13 L ALT 9 L Alkaline Phosphatase 74 Troponin I 12 Total Protein 7.4 Albumin 2.7 L TSH 0.65 Ethyl Alcohol < 3.0 Last Vital Signs Temp 36.1 C L 04/01/25 22:20 Pulse 59 L 04/01/25 23:45 Resp 9 L 04/01/25 23:45 BP 166/75 H 04/01/25 23:45 Pulse Ox 99 04/01/25 23:31 Time Spent Time spent with Patient: >75 minutes Time was spent: preparing to see the patient(eg.review tests), obtaining and/or reviewing separately otained hiistory, ordering medications,tests, procedures, indepentently interpreting results and care coordination
[2025-04-02] VITALS (20 sets, daily range): BP systolic 112–177; BP diastolic 64–105; PULSE 61–79; RESP 8–18; TEMP 36.4–37; O2SAT 96–97
[2025-04-02 00:26] LABS: Troponin I 14 ng/L (<or=51)
--- NOTE | 2025-04-02 01:34 | W.PC.ACHO ---
Registration Status: REG ER Primary Language: Preferred Language: Kiswahili ED Information & Data Chief Complaint AMS/LOC 04/01/25 22:28 Triage Note PT last known normal 19304/01/25 22:14 tonight. PT localizes pain, will moan with painful stimulus. No known apparent cause. Staff at care facility unsure of cause, dose not report any utilization of opioid medications for pain. Medical / Surgical History (Last Reviewed 04/01/25 @ 23:51 by Pedro Archiabld) Low magnesium level UTI (urinary tract infection) Encephalopathy Seizure Psychiatric symptoms Ambulatory dysfunction AMS (altered mental status) Rhabdomyolysis Fall Primary osteoarthritis of left knee Osteoarthritis of right knee Chronic pain syndrome Left elbow contusion Muscle weakness Tendonitis of left rotator cuff Recurrent UTI (urinary tract infection) Hypomagnesemia Primary osteoarthritis, left shoulder Left rotator cuff tear arthropathy Impacted cerumen of both ears Bilateral sensorineural hearing loss Pneumonia Left displaced femoral neck fracture (09/16/20) Fracture of left hip CVA (cerebral vascular accident) Recurrent UTI IBS (irritable bowel syndrome) Urge incontinence Chronic constipation Chronic insomnia (Last Reviewed 04/01/25 @ 23:51 by Pedro Archibald) S/P cervical spinal fusion History of total left hip replacement (09/17/20) History of back surgery Hx of cholecystectomy Most Recent Vital Signs Temperature 36.1 C L 04/01/25 22:20 Pulse 67 04/02/25 01:16 Pulse 69 04/02/25 01:20 Respiratory Rate 9 L 04/02/25 01:20 Respiratory Effort Normal 04/01/25 22:20 Respiratory Depth Normal 04/01/25 22:20 Respiratory Pattern Normal 04/01/25 22:20 Blood Pressure 177/82 H 04/02/25 01:16 Blood Pressure Mean 110 04/02/25 01:16 Blood Pressure Position Sitting 04/01/25 22:20 Pulse Oximetry 96 04/02/25 00:40 Oxygen Delivery Method Room Air 04/01/25 22:20 Oxygen Flow Rate 0 04/01/25 22:20 Allergies sulfamethoxazole (From Bactrim) Allergy (Verified 04/02/25 01:26) Diarrhea trimethoprim (From Bactrim) Allergy (Verified 04/02/25 01:26) Diarrhea morphine Adverse Reaction (Intermediate, Verified 04/02/25 01:26) Psychosis baclofen Adverse Reaction (Unknown, Verified 04/02/25 01:26) Unknown chlorthalidone Adverse Reaction (Unknown, Verified 04/02/25 01:26) Unknown codeine Adverse Reaction (Unknown, Verified 04/02/25:26) Unknown dextromethorphan Adverse Reaction (Unknown, Verified 04/02/25:26) Unknown gabapentin (From Neurontin) Adverse Reaction (Unknown, Verified 04/02/25 01:26) Unknown hydrochlorothiazide Adverse Reaction (Unknown, Verified 04/02/25:26) Unknown pregabalin Adverse Reaction (Unknown, Verified 04/02/25 01:26) Dopey Active Medications Generic Name Dose Route Start Last Admin Trade Name Freq PRN Reason Stop Dose Admin Iohexol 100 ml 04/01/25 22:45 04/01/25 22:39 Omnipaque 350 Mg/Ml 100 Ml Btl IJ 05/01/25 23:59 70 ml DIRECTED MONSE Administration Sodium Chloride 50 ml 04/01/25 22:45 04/01/25 22:39 Normal Saline - Diluent 50 Ml Vial IJ 50 ml DIRECTED MONSE Administration Sodium Chloride 0 ml 04/01/25 22:38 04/01/25 22:40 Normal Saline Flush 10 Ml Syr IVP 10 ml PRN PRN Administration IV IV Catheter Type [Right Saline Lock Forearm] IV Catheter Type [Left Saline Lock Antecubital] IV Catheter Gauge [Right 18 Forearm] IV Catheter Gauge [Left 18 Antecubital] Diagnostics 04/02/25 04/02/25 04/01/25 Range/Units 01:21 00:45 23:58 WBC (4.4-10.8) 10^3/uL RBC (3.93-5.22) 10^6/uL Hgb (11.2-15.7) g/dL Hct (36.0-46.0) % MCV (80-95) fL MCH (27.0-33.0) pg MCHC (32.0-36.0) % RDW (11.7-14.6) % Plt Count (130-400) 10^3/uL MPV (8.0-11.0) fL Immature Gran % % Neutrophils % % Lymphocytes % % Monocytes % % Eosinophils % % Basophils % % Nucleated RBC % (0.0-0.3) % Absolute Neutrophils (1.2-6.7) 10^3/uL Absolute Lymphocytes (1.2-3.4) 10^3/uL Absolute Monocytes (0.1-0.8) 10^3/uL Absolute Eosinophils (0.0-0.7) 10^3/uL Absolute Basophils (0.0-0.2) 10^3/uL VBG pH (7.31-7.41) VBG pCO2 (41-51) mmHg VBG pO2 mmHg VBG HCO3 (23-28) mmol/L VBG Total CO2 (24-29) mmol/L VBG O2 Saturation % VBG Base Excess (-2-3) mmol/L Sodium (136-145) mmol/L Potassium (3.5-5.1) mmol/L Chloride (98-107) mmol/L Carbon Dioxide (21.0-32.0) mmol/L Anion Gap (3-11) mmol/L BUN (7-18) mg/dL Creatinine (0.55-1.02) mg/dL Est GFR (CKD-EPI 2020) (mL/min/1.73m2) Glucose (74-106) mg/dL Calcium (8.5-10.1) mg/dL Total Bilirubin (0.2-1.0) mg/dL AST (15-37) U/L ALT (14-59) U/L Alkaline Phosphatase (46-116) U/L Troponin I Pending 14 (<or=51) ng/L Total Protein (6.4-8.2) g/dL Albumin (3.4-5.0) g/dL TSH (0.36-3.74) uIU/mL Ethyl Alcohol (<10) mg/dL COVID-19 Source Pending SARS-CoV-2 (PCR) Pending Influenza Type A (PCR) Pending Influenza Type B (PCR) Pending RSV (PCR) Pending 04/01/25 04/01/25 Range/Units 22:51 22:22 WBC 4.55 (4.4-10.8) 10^3/uL RBC 3.21 L (3.93-5.22) 10^6/uL Hgb 9.0 L (11.2-15.7) g/dL Hct 28.1 L (36.0-46.0) % MCV 88 (80-95) fL MCH 28.0 (27.0-33.0) pg MCHC 32.0 (32.0-36.0) % RDW 14.3 (11.7-14.6) % Plt Count 221 (130-400) 10^3/uL MPV 10.1 (8.0-11.0) fL Immature Gran % 0.4 % Neutrophils % 59.3 % Lymphocytes % 24.0 % Monocytes % 14.3 % Eosinophils % 1.1 % Basophils % 0.9 % Nucleated RBC % 0.0 (0.0-0.3) % Absolute Neutrophils 2.70 (1.2-6.7) 10^3/uL Absolute Lymphocytes 1.09 L (1.2-3.4) 10^3/uL Absolute Monocytes 0.65 (0.1-0.8) 10^3/uL Absolute Eosinophils 0.05 (0.0-0.7) 10^3/uL Absolute Basophils 0.04 (0.0-0.2) 10^3/uL VBG pH 7.40 (7.31-7.41) VBG pCO2 48 (41-51) mmHg VBG pO2 51 mmHg VBG HCO3 29 H (23-28) mmol/L VBG Total CO2 28 (24-29) mmol/L VBG O2 Saturation 86 % VBG Base Excess 5 H (-2-3) mmol/L Sodium 147 H (136-145) mmol/L Potassium 4.0 (3.5-5.1) mmol/L Chloride 110 H (98-107) mmol/L Carbon Dioxide 29.3 (21.0-32.0) mmol/L Anion Gap 7.7 (3-11) mmol/L BUN 25 H (7-18) mg/dL Creatinine 0.8 (0.55-1.02) mg/dL Est GFR (CKD-EPI 2020) 76.31 (mL/min/1.73m2) Glucose 115 H (74-106) mg/dL Calcium 8.9 (8.5-10.1) mg/dL Total Bilirubin 0.3 (0.2-1.0) mg/dL AST 13 L (15-37) U/L ALT 9 L (14-59) U/L Alkaline Phosphatase 74 (46-116) U/L Troponin I 12 (<or=51) ng/L Total Protein 7.4 (6.4-8.2) g/dL Albumin 2.7 L (3.4-5.0) g/dL TSH 0.65 (0.36-3.74) uIU/mL Ethyl Alcohol < 3.0 (<10) mg/dL COVID-19 Source SARS-CoV-2 (PCR) Influenza Type A (PCR) Influenza Type B (PCR) RSV (PCR) Intake and Output - 24 Hour Total 04/01/25 21:57 thru 04/02/25 00:30 Intake Total 500 Balance 500 Weight 58.967 kg Intake: IV 500 Falls Risk Assessment History of Falls Previous History 04/01/25 22:20 Contributing Factors Confusion,Impairments, 04/01/25 22:20 Incontinence Ambulatory Aids Uses ambulatory device + 04/01/25 22:20 Tubes/Lines None 04/01/25 22:20 Gait Evaluation W/any additional score 04/01/25 22:20 Cognition Cognitive impairment 04/01/25 22:20 Fall Total Score 89 04/01/25 22:20 Level of Risk Maximum Risk 04/01/25 22:20 Problems (Last Reviewed 04/01/25 @ 23:51 by Pedro Archibald) Acute dehydration (Acute) Chronic back pain (Chronic) Encephalopathy (Acute) Acute UTI (Acute) KWAME (obstructive sleep apnea) (Chronic) Anemia (Chronic) v v v v v v v v v Sending and/or Receiving Nurses: Please use comment section below to note any information pertinent to the patient hand-off not included above. Information / Comments:room 214 Report received from:Tawanda cantor
[2025-04-02 04:39] LABS: COVID-19 PCR Negative (Negative); RSV PCR Negative (Negative)
[2025-04-02 04:40] LABS: Troponin I 12 ng/L (<or=51)
[2025-04-02 05:24] LABS: Glucose Negative (Negative)
[2025-04-02 05:51] LABS: Cannabinoids THC Negative (Negative); METHADONE URINE SCREEN Negative (Negative)
[2025-04-02 07:00] LABS: HCT 29.4 % (36.0-46.0); HGB 9.5 g/dL (11.2-15.7); MCH 28.7 pg (27.0-33.0); MCHC 32.3 % (32.0-36.0); MCV 89 fL (80-95); MPV 10.0 fL (8.0-11.0); Platelet Count 218 10^3/uL (130-400); RBC 3.31 10^6/uL (3.93-5.22); RDW 14.1 % (11.7-14.6); RDW-SD 45.5 fL; WBC 3.95 10^3/uL (4.4-10.8)
[2025-04-02 07:22] LABS: ALT 8 U/L (14-59); AST 11 U/L (15-37); Albumin 2.7 g/dL (3.4-5.0); Alkaline Phosphatase 72 U/L (46-116); Anion Gap 8.8 mmol/L (3-11); BUN 21 mg/dL (7-18); Bilirubin, Total 0.5 mg/dL (0.2-1.0); CO2 28.2 mmol/L (21.0-32.0); Calcium 9.1 mg/dL (8.5-10.1); Chloride 110 mmol/L (98-107); Estimated GFR 92.97 (mL/min/1.73m2); Magnesium 1.9 mg/dL (1.8-2.4); Potassium 3.3 mmol/L (3.5-5.1); Sodium 147 mmol/L (136-145); Total Protein 7.3 g/dL (6.4-8.2)
[2025-04-02 07:29] LABS: Glucose 88 mg/dL (74-106)
--- NOTE | 2025-04-02 08:00 | DI.MRI_ITS ---
Exam(s) MR BRAIN WO EXAM: MR BRAIN WO CLINICAL HISTORY: Acute encephalopathy TECHNIQUE: Multiplanar multisequence MRI of the brain was performed. COMPARISON: MR MR BRAIN WO from 12/22/[address] BRAIN NECK CTA from 04/01/2025 FINDINGS: VENTRICLES AND EXTRA AXIAL SPACES: Normal in size and morphology for the patient's age. MIDLINE SHIFT: None. CEREBRAL PARENCHYMA: Old right occipital infarct again noted. No focus of restricted diffusion to suggest acute infarct. Old basal ganglia lacunar infarcts. No space-occupying lesion identified. Mild atrophy consistent with the patient's age. Prominent patchy high signal in the white matter consistent with sequela of chronic microvascular disease. Prominent perivascular spaces. Has been no change from the prior exam. BRAINSTEM/CEREBELLUM: Normal. VISUALIZED PARANASAL SINUSES: Mucous retention in the maxillary sinuses hand are right greater than left. MASTOIDS:Clear. Vasculature: Normal flow void. PITUITARY GLAND: Unremarkable. ORBITS: Unremarkable. IMPRESSION: Old right occipital infarct and old basal ganglia lacunar infarcts. Prominent microvascular changes. No acute abnormality. DATA REPOSITORY:
[2025-04-02] MEDS: Enoxaparin 40 MG/0.4 ML SYR SC (09:06)
[2025-04-02] MEDS: Normal Saline Flush 10 ML SYR IVP ×2 (09:07→20:59)
--- NOTE | 2025-04-02 09:29 | INITIAL_ITS ---
Date of service: 04/02/25 Time of Service: 09:29 Care Management Initial Assmt Initial Assessment Reason for Hospitalization: Altered Mental Status Functional Status/Living Situation Patient Presentation: Tegan presented to the ED last night with altered mental status. She was found to be obtunded by the staff at [facility], where she resides. She was known to be well just 2hours prior. At that time, blood glucose, and VS were normal. Glascow coma scale was around 10. In the ED, she was arousable with sternal rub, had inappropriate words when aroused and was not able to participate in conversation. In the ED, she was noted to not show any significant movement of her left arm or lower extremeties, but was moving her right arm. Her gaze and head were drifting to the left, and she was noted to have a left facial droop. Tegan was asleep when first approached. Next visit, Tegan was lying in bed, lying on her side, curled in a ball. She made eye contact with , but did not speak at all. She was asked many questions, she was reminded that she and CM had met, but there was no recognition. Most of the information in this note was gathered from previous admissions. Town of Residence: [facility] Resides with: Other ([facility]) Significant Other/Family: Out of area (children Renetta and Amor are in [place], but not immediately local. 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) Instrumental Activities of Daily Living (ADLs): Requires support Medications Medication Management: No Issues/Barriers identified Physical Functioning/Mobility Assistive Device: walker, wheelchair Advance Directives Advance Directives: Do you have an Advance Directive: Y , 18:01 AD On File at [facility]: Y 09/16/20, 21:57 Date Asked 01/13/25 01/13/25, 11:39 AD Date Reviewed 04/02/25 Today, 00:14 COLST On File at [facility] Yes 08/19/24, 09:20 COLST Date Scanned 05/06/24 08/19/24, 09:20 Comment: Daughter, Renetta, is [facility] Code Status Resuscitation Status DNR/DNI Insurance Coverage/Financial Issues Insurance: Medicare Part A & B - Medicaid of [place] Care Team Visit Care Team Role Provider Type Enid Bonner APRN MD [facility] STAFF PHYSICIAN Marixa Kurtz Primary Care Provider NON-[facility] STAFF PHYSICIAN Los Carter, DO Emergency Provider [facility] STAFF PHYSICIAN Pedro Archibald Admit Provider NON-[facility] STAFF PHYSICIAN Attending Provider Discharge Potential Discharge Needs: Other Anticipated Barriers to Discharge: None Identified Patient/Family Education Needs: Review discharge instructions, discuss Ask Me Three Transportation: EMS (vs wheel chair van. ) Plan: Anticipate that Tegan will transfer back to [facility] for Living once medically stable. She will f/u with the facility provider and continue per her plan of care. She will likely need to transport via EMS. CM will continue to follow. Social Determinants of Health Screening Will the Patient Participate in the Screening?: Unable to obtain Do you worry about having a steady place to live?: no PFSH All Active Problems (Updated 04/02/25 @ 09:47 by Enid Bonner APRN) Discharge planning issues (Acute) On deep vein thrombosis (DVT) prophylaxis (Acute) AMS (altered mental status) (Acute) Acute dehydration (Acute) Chest pain (Acute) Major depression, recurrent, chronic (Acute) Aspiration into airway (Acute) Palliative care patient (Acute) ACP (advance care planning) (Acute) DNR (do not resuscitate) (Acute) Delusions (Acute) Dementia (Chronic) Bladder mass (Acute) Chronic back pain (Chronic) Cystic mass of pancreas (Acute) Abnormal finding on CT scan (Acute) Sharifa coma scale score 3-8, at arrival to emergency department (Acute) Altered mental status (Acute) Encephalopathy (Acute) Acute UTI (Acute) Altered mental status (Acute) Failure to thrive in adult (Acute) Weakness (Acute) Falls frequently (Acute) Trouble talking (Acute) Acute UTI (Acute) Acute kidney injury superimposed on CKD (Acute) Lives in halfway (Acute) Deficit in activities of daily living (ADL) (Acute) Closed fracture of distal end of radius (Acute) Closed fracture of left distal radius (Acute) Closed fracture of right distal radius (Acute) Heart murmur (Acute) Depression (Chronic) At high risk for skin breakdown (Acute) Periorbital edema (Acute) Hiatal hernia (Chronic) moderate Coronary artery calcification seen on CAT scan (Acute) Diverticula of colon (Acute) DJD (degenerative joint disease), lumbar (Acute) History of CVA (cerebrovascular accident) (Acute) remote Fracture of both wrists (Acute) Goiter (Acute) Fibromyalgia (Chronic) KWAME (obstructive sleep apnea) (Chronic) Chronic pain (Chronic) Movement disorder (Acute) Chronic renal insufficiency, stage III (moderate) (Acute) Anemia (Chronic) Hypertension (Chronic) Medical History Low magnesium level UTI (urinary tract infection) Encephalopathy Seizure Psychiatric symptoms Ambulatory dysfunction AMS (altered mental status) Rhabdomyolysis Fall Primary osteoarthritis of left knee We will see the patient back in 4-1/2 months for possible repeat Synvisc 1 in her left knee would consider x-ray in her right knee if she is still significantly symptomatic Osteoarthritis of right knee Steroid injection: 04/05/2020 Has had previous viscosupplementation injections. 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) As treatment for a femoral neck fracture (DOI: 09/16/2020) History of back surgery Hx of cholecystectomy Social History Smoking/Tobacco Use Status: Never Smoking risk assessment performed?: Yes Alcohol Intake: never Drug use: Never Substance use type: does not use Housing: halfway Do you feel safe at home: Yes Do you feel safe in your relationship?: Yes Additional Social history: health and rehab
--- NOTE | 2025-04-02 09:29 | W.PM.PROGNOT ---
Date of Service Date of service: 04/02/25 Time of Service: 09:29 Assessment and Plan Assessment and plan (1) Encephalopathy: Start date: 04/01/25 Status: Acute Assessment and plan: Presented with encephalopathy w/o metabolic abnormaliy as per and mild dehydration with no other obvious reasons for change of mental status. Have had similar presentation in the past with resolution s/p IV hydration and UTI treatment - UA negative Chronic UTI on nitrofurantoin but not appear to have acute UTI. - on hold d/t possibility of AMS History of CVA with seizures but did not have seizure-like activity- ongoing home dose keppra but IV d/t inability to swallow- levetiracetam level ordered Progressive deterioration over the last 6 months with dementia observed at [facility] CTA of the head and neck - negative for acute processes 04/02 :MRI of the brain - negative for acute process, no change from prior Pallitive care patient PT consult (2) CVA (cerebral vascular accident): Assessment and plan: No evidence of acute process with MRI of the brain pending in the morning. Patient will continue on IV Keppra with seizures while awaiting SPL for swallow eval most likely associated with previous CVA. She does have mostly left-sided hemiparesis persisting. (3) Acute dehydration: Start date: 04/01/25 Status: Acute Assessment and plan: With hypernatremia LR at 125 cc/hr Orhostatic VS pending - if positive - will bolus -last LVEF >50% in 2023 Na 147 BUN 21 from 25 Labs in AM (4) Difficulty swallowing: Status: Acute Assessment and plan: Speech consult Avoid enteral intake with ongoing decreased LOC (5) KWAME (obstructive sleep apnea): Status: Chronic Assessment and plan: Ongoing CPAP/BiPAP at home settings using home machine if available. (6) Dementia: Status: Chronic Assessment and plan: Progressive and most likely vascular dementia. Brain MRI :Prominent patchy high signal in the white matter consistent with sequela of chronic microvascular disease. Hold sedating agents (7) Recurrent UTI (urinary tract infection): Assessment and plan: Contionue to hold nitrofurantoin for now since this can cause mental status changes as side effect. UA negative conisder resumption w improved mental status (8) Anemia: Status: Chronic Assessment and plan: Stable most likely not contributing to acute processes. (9) Chronic back pain: Status: Chronic Assessment and plan: Urine drug screen opiate positive and benzo negative Ongoing hold of home opioids and benzodiazepines (10) On deep vein thrombosis (DVT) prophylaxis: Status: Acute Assessment and plan: ON LMWH (11) Discharge planning issues: Status: Acute Assessment and plan: Most likely to return to SNF after PT when medically clear Discussed with Dr Mckoy Subjective Subjective Patient reports: voiding w/o difficulty and afebrile; denies tolerating liquids well (decreased LOC not drinking independently ), tolerating a regular diet (Difficulty swallowing speech eval pending ), diarrhea, nausea, vomiting or shortness of breath Exam Narrative Exam Narrative: Sepideh is able to open her eyes with deep tactile stimulation, remains non- verbal but w/d from noxious stimuli and lightly strikes providers hand, moves all 4 ext but weak LUE, unable to obey commands and not able to complete cranial nerve exam, clear lungs, S1 S2 regular, abdomen in non-distended, soft and non-tender, no CVA tenderness Objective Last Vital Signs Temp 36.7 C 04/02/25 07:56 Pulse 61 04/02/25 07:56 Resp 17 04/02/25 07:56 BP 147/74 H 04/02/25 07:56 Pulse Ox 97 04/02/25 07:56 Laboratory Results - last 24 hr 04/01/25 04/01/25 04/01/25 22:22 22:51 23:58 WBC 4.55 RBC 3.21 L Hgb 9.0 L Hct 28.1 L MCV 88 MCH 28.0 MCHC 32.0 RDW 14.3 Plt Count 221 MPV 10.1 Immature Gran % 0.4 Neutrophils % 59.3 Lymphocytes % 24.0 Monocytes % 14.3 Eosinophils % 1.1 Basophils % 0.9 Nucleated RBC % 0.0 Absolute Neutrophils 2.70 Absolute Lymphocytes 1.09 L Absolute Monocytes 0.65 Absolute Eosinophils 0.05 Absolute Basophils 0.04 VBG pH 7.40 VBG pCO2 48 VBG pO2 51 VBG HCO3 29 H VBG Total CO2 28 VBG O2 Saturation 86 VBG Base Excess 5 H Sodium 147 H Potassium 4.0 Chloride 110 H Carbon Dioxide 29.3 Anion Gap 7.7 BUN 25 H Creatinine 0.8 Est GFR (CKD-EPI 2020) 76.31 Glucose 115 H Calcium 8.9 Magnesium Total Bilirubin 0.3 AST 13 L ALT 9 L Alkaline Phosphatase 74 Troponin I 12 14 Total Protein 7.4 Albumin 2.7 L TSH 0.65 Urine Color Urine Clarity Urine pH Ur Specific Dupont Urine Protein Urine Ketones Urine Blood Urine Nitrite Urine Bilirubin Urine Urobilinogen Ur Leukocyte Esterase Urine Glucose Urine Opiates Screen Urine Methadone Screen Ur Barbiturates Screen Ur Tricyclics Screen Ur Amphetamines Screen U Benzodiazepines Scrn Urine Cocaine Screen Ur THC Screen Ethyl Alcohol < 3.0 COVID-19 Source SARS-CoV-2 (PCR) Influenza Type A (PCR) Influenza Type B (PCR) RSV (PCR) 04/02/25 04/02/25 04/02/25 00:45 01:45 02:00 WBC RBC Hgb Hct MCV MCH MCHC RDW Plt Count MPV Immature Gran % Neutrophils % Lymphocytes % Monocytes % Eosinophils % Basophils % Nucleated RBC % Absolute Neutrophils Absolute Lymphocytes Absolute Monocytes Absolute Eosinophils Absolute Basophils VBG pH VBG pCO2 VBG pO2 VBG HCO3 VBG Total CO2 VBG O2 Saturation VBG Base Excess Sodium Potassium Chloride Carbon Dioxide Anion Gap BUN Creatinine Est GFR (CKD-EPI 2020) Glucose Calcium Magnesium Total Bilirubin AST ALT Alkaline Phosphatase Troponin I 12 Total Protein Albumin TSH Urine Color Yellow Urine Clarity Clear Urine pH 7.0 Ur Specific Dupont 1.020 Urine Protein Negative Urine Ketones Negative Urine Blood Negative Urine Nitrite Negative Urine Bilirubin Negative Urine Urobilinogen 0.2 Ur Leukocyte Esterase Negative Urine Glucose Negative Urine Opiates Screen Positive A Urine Methadone Screen Negative Ur Barbiturates Screen Negative Ur Tricyclics Screen Negative Ur Amphetamines Screen Negative U Benzodiazepines Scrn Negative Urine Cocaine Screen Negative Ur THC Screen Negative Ethyl Alcohol COVID-19 Source Nasopharynx SARS-CoV-2 (PCR) Negative Influenza Type A (PCR) Negative Influenza Type B (PCR) Negative RSV (PCR) Negative 04/02/25 06:42 WBC 3.95 L RBC 3.31 L Hgb 9.5 L Hct 29.4 L MCV 89 MCH 28.7 MCHC 32.3 RDW 14.1 Plt Count 218 MPV 10.0 Immature Gran % Neutrophils % Lymphocytes % Monocytes % Eosinophils % Basophils % Nucleated RBC % Absolute Neutrophils Absolute Lymphocytes Absolute Monocytes Absolute Eosinophils Absolute Basophils VBG pH VBG pCO2 VBG pO2 VBG HCO3 VBG Total CO2 VBG O2 Saturation VBG Base Excess Sodium 147 H Potassium 3.3 L Chloride 110 H Carbon Dioxide 28.2 Anion Gap 8.8 BUN 21 H Creatinine 0.6 Est GFR (CKD-EPI 2020) 92.97 Glucose 88 Calcium 9.1 Magnesium 1.9 Total Bilirubin 0.5 AST 11 L ALT 8 L Alkaline Phosphatase 72 Troponin I Total Protein 7.3 Albumin 2.7 L TSH Urine Color Urine Clarity Urine pH Ur Specific Dupont Urine Protein Urine Ketones Urine Blood Urine Nitrite Urine Bilirubin Urine Urobilinogen Ur Leukocyte Esterase Urine Glucose Urine Opiates Screen Urine Methadone Screen Ur Barbiturates Screen Ur Tricyclics Screen Ur Amphetamines Screen U Benzodiazepines Scrn Urine Cocaine Screen Ur THC Screen Ethyl Alcohol COVID-19 Source SARS-CoV-2 (PCR) Influenza Type A (PCR) Influenza Type B (PCR) RSV (PCR) Time Spent with Patient Time Spent with Patient: >50 minutes Time was spent: preparing to see the patient(eg.review tests), obtaining and/or reviewing separately otained hiistory, ordering medications,tests, procedures, referring, communicating with other health patient care assistant, indepentently interpreting results, counseling the patient, care coordination and other
[2025-04-02] MEDS: levETIRAcetam 500 MG in Normal Saline 100 ML 400 MG IVPB ×2 (10:59→20:45)
[2025-04-02] MEDS: Lactated Ringers 1,000 ML 125 ML IV ×2 (11:00→18:46)
--- NOTE | 2025-04-02 12:28 | PDOC.STREC ---
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 Will re-attempt as patient becomes able to participate. Tegan is highly familiar to this clinician/department with chronic dysphagia and hx aspiration. Her baseline diet as of last admission was L5 minced & moist and mildly thick liquids with meds in applesauce (whole if small or crushed). Recommend strict NPO until sufficiently arouseable for PO.
--- NOTE | 2025-04-02 15:16 | NT_ITS ---
PT Notes Visit Reasons: Encephalopathy, Dehydration, CVA PT Consult received Chart reviewed. Pt approached for evaluation however pt was unable to be aroused. Discussed with TEMPORARY DATA ENTRY CLERK Enid Bonner stated to wait until alert and able to participate. Will attempt evaluation on 04/03/2025
[2025-04-02] MEDS: POTASSIUM CHLORIDE 20 MEQ/100 ML BAG 50 MEQ IV_INF ×2 (18:39→21:07)
[2025-04-02] MEDS: Mirtazapine 15 MG TAB PO (20:51)
[2025-04-02] MEDS: Protein Nutritional Supplement 16 GM 1 OUNCE PACKET PO (20:51)
[2025-04-02] MEDS: Atorvastatin 20 MG TAB PO (20:51)
[2025-04-03] MEDS: Lactated Ringers 1,000 ML 125 ML IV ×2 (02:21→11:16)
[2025-04-03 03:46] VITALS: BP 111/65; PULSE 71; RESP 16; TEMP 36.9; O2SAT 97
[2025-04-03 07:46] VITALS: BP 147/79; PULSE 72; RESP 16; TEMP 37; O2SAT 98
[2025-04-03] MEDS: Enoxaparin 40 MG/0.4 ML SYR SC (07:52)
[2025-04-03] MEDS: Omeprazole 20 MG CAPCR 40 MG PO (07:53)
[2025-04-03] MEDS: Protein Nutritional Supplement 16 GM 1 OUNCE PACKET PO (07:53)
[2025-04-03] MEDS: levETIRAcetam 500 MG in Normal Saline 100 ML 400 MG IVPB (07:53)
[2025-04-03] MEDS: Normal Saline Flush 10 ML SYR IVP (07:53)
[2025-04-03] MEDS: Aspirin E.C. 81 MG TABEC PO (07:54)
[2025-04-03] MEDS: amLODIPine 10 MG TAB PO (07:54)
--- NOTE | 2025-04-03 08:40 | PDOC.CMPRO ---
Date of service: 04/03/25 Time of Service: 08:40 Care Management Progress Note Discharge Anticipated Barriers to Discharge: Medical Status Patient/Family Education Needs: Review discharge instructions, discuss Ask Me Three Transportation: EMS (vs. wheelchair) Plan: Anticipate that Tegan will transfer back to [facility] for Living once medically stable. She will f/u with the facility provider and continue per her plan of care. She will likely need to transport via EMS. CM will continue to follow. Social Determinants of Health Screening Will the Patient Participate in the Screening?: Unable to obtain Do you worry about having a steady place to live?: no
[2025-04-03 11:02] VITALS: BP 128/85; PULSE 73; RESP 15; TEMP 37.3; O2SAT 96
--- NOTE | 2025-04-03 11:59 | PT.INNT ---
PT Notes Visit Reasons: Encephalopathy, Dehydration, CVA Patient was seen for another attempt at evaluation. She was awake and moving her eyes but would not even look at this PT nor respond. No evaluation was done for this patient. Recommending EMS services for transport back to SNF.
--- NOTE | 2025-04-03 12:05 | W.PM.DS.N ---
Date of service: 04/03/25 Time of Service: 12:05 DS: Diagnosis Discharge Diagnosis (1) Encephalopathy: Status: Acute (2) CVA (cerebral vascular accident): (3) Acute dehydration: Status: Acute (4) Difficulty swallowing: Status: Acute (5) KWAME (obstructive sleep apnea): Status: Chronic (6) Dementia: Status: Chronic (7) Recurrent UTI (urinary tract infection): (8) Anemia: Status: Chronic (9) Chronic back pain: Status: Chronic (10) On deep vein thrombosis (DVT) prophylaxis: Status: Acute (11) Discharge planning issues: Status: Acute Discharge Plan Disposition [facility] Condition: Poor Discharge Details Reason For Visit: Encephalopathy, Dehydration, CVA Admit Date/Time: 04/01/25 23:55 Admit Provider: Pedro Archibald Attending Provider: Pedro Archibald Primary Care Provider: Danny Maldonado Hospital Course Hospital Course: This is a 74-year-old female resident of a shelter facility, was admitted for altered mental status and unresponsiveness. She was last seen at baseline during supper and later found obtunded. Initial evaluation showed mild dehydration with hypernatremia (Na 147), no acute infectious source, and negative CTA/MRI for new cerebrovascular insult. Her mental status decline has been progressive over the past six months, consistent with advanced vascular dementia. She was treated with IV fluids (LR 125 mL/hr) with gradual improvement in alertness. Sedating home medications (oxycodone, lorazepam) were held. Keppra continued IV for seizure prophylaxis. Palliative care consulted for [id number] review; patient remains DNR/DNI. Speech therapy evaluation on 04/02/25 was deferred due to somnolence; patient was unarousable despite verbal/tactile stimulation. She is well known to [employer] for chronic dysphagia and aspiration history; her baseline diet remains Level 5 minced & moist solids with mildly thick liquids, medications given in applesauce (whole if small or crushed) and should be continued. No new acute neurological or infectious process was identified. Palliative care has been consulted. Recommend follow up for goals of care, recommendation of [employer]. Continue medications prior to hospitalization - no changes. The patient is medically stable for discharge, but chronically encephalopathic with poor baseline cognition, back to her shelter facility with continued supportive and palliative measures. Prognosis: Poor, with progressive decline. DNR/DNI status reaffirmed. Home Meds and New Rx's Prescriptions: Continued oxycodone 5 mg tablet See Rx Instructions PO BID PRN Rx Instructions: 1 BID and addl 1 is needed orally twice a day PRN; lorazepam 1 mg tablet 1 mg PO BID PRN aspirin 81 mg tablet,delayed release (DR/EC) 81 mg PO DAILY omeprazole 40 MG capsule,delayed release(DR/EC) 40 mg PO DAILY vitamin B complex Tablet 1 tab PO DAILY acetaminophen 325 mg Tablet 650 mg PO QID Qty: 30 0RF mirtazapine 15 mg Tablet 15 mg PO HS Qty: 30 0RF Phlexy-Vits 15 mg- 700 mcg Powder In Packet 1 packet PO TID Qty: 30 0RF amlodipine 10 mg tablet 10 mg PO DAILY naloxone 4 mg/actuation spray,non-aerosol 4 mg INTRANASAL ONCE PRN Patient Comments: ADMINISTER 1 SPRAY INTO ONE NOSTRIL A SINGLE DOSE NEEDED FOR EXCESSIVE SEDATION atorvastatin 20 mg Tablet 20 mg PO QPM Qty: 30 0RF risperidone 1 mg tablet 1 mg PO BID Patient Comments: TAKE ONE TABLET BY MOUTH AT BEDTIME nitrofurantoin macrocrystal 100 mg capsule 100 mg PO DAILY lorazepam 0.5 mg tablet 0.5 mg PO BID levetiracetam 100 mg/mL solution 500 mg PO BID Discharge Instructions Additional Instructions: Diet: Level 5 (minced & moist) solids, mildly thick liquids per prior [employer] recommendations Medications in applesauce, crushed if large Activity: As tolerated; requires full assistance with ADLs Referrals: Danny Maldonado [Primary Care Provider, Medicine] Referral Note: post hospitalization Activity:: Activity as Tolerated Equipment/Supplies:: No Equipment Needed Diet:: Level 5 (minced & moist) solids, mildly thick liquids per prior [employer] recomm Discharge Orders Discharge Orders: Discharge Order (Routine); Ordered 04/03/25 Ordered By: Keira Malave DS: Summary Time Spent with Patient providing and/or coordinating discharge services: Greater than 30 minutes Status at Discharge Functional status at discharge: wheelchair bound Overall status at discharge: patient is back to baseline Mental Status: other Speech and Movement: slowed movement Mood: other Affect: blunted Quality:SDOH Health Related Social Needs: Health related social needs material hardship Health related social needs details pt. non verbal Exam Narrative Exam Narrative: General: Awake to tactile stimuli, nonverbal, frail Neuro: Moves all extremities; left-sided weakness > right; not following commands Lungs: Clear to auscultation Heart: Regular rate and rhythm Abdomen: Soft, nondistended, non-tender Skin: Warm, pale, no new breakdown Psych Mental Status: other Speech and Movement: slowed movement Mood: other Affect: blunted DS: Data Vitals/I&O Vitals and I&O: Vital Signs Temperature 37.3 C 04/03/25 11:02 Temperature Source Temporal Artery Scan 04/03/25 11:02 Pulse 73 04/03/25 11:02 Pulse Rhythm Regular 04/02/25 01:48 Pulse 69 04/02/25 01:20 Respiratory Rate 15 04/03/25 11:02 Respiratory Effort Normal 04/02/25 01:48 Respiratory Depth Normal 04/02/25 01:48 Respiratory Pattern Normal 04/02/25 01:48 Blood Pressure 128/85 04/03/25 11:02 Blood Pressure Mean 99 04/03/25 11:02 Blood Pressure Position Sitting 04/01/25 22:20 Pulse Oximetry 96 04/03/25 11:02 Oxygen Delivery Method Room Air 04/03/25 11:02 Oxygen Flow Rate 0 04/03/25 11:02 Pain Level 0 04/03/25 11:02 Comment Patient not verbal, unable to assess pain. 04/02/25 11:48 Intake & Output 04/02/25 04/03/25 04/03/25 23:59 11:59 23:59 Intake Total 1275.833 / 6052.730 6530.917 / 2162.917 Output Total 750 / 1200 500 / 500 Balance 525.833 / 151.374 3976.917 / 1662.917 Weight 52.4 kg Intake: IV 1175.833 / 5822.560 0611.917 / 2052.917 Oral 100 / 100 110 / 110 Output: Urine 750 / 1200 500 / 500 Other: Urine Color Light Chirta Yellow Urine Appearance Cloudy Clear Stool Size Small Stool Characteristics Hard Data Completed and Pending Labs on day of discharge: Labs from last 24 hours 04/03/25 05:35 WBC Pending RBC Pending Hgb Pending Hct Pending MCV Pending MCH Pending MCHC Pending RDW Pending Plt Count Pending MPV Pending Sodium Pending Potassium Pending Chloride Pending Carbon Dioxide Pending Anion Gap Pending BUN Pending Creatinine Pending Est GFR (CKD-EPI 2020) Pending Glucose Pending Calcium Pending Magnesium Pending Total Bilirubin Pending AST Pending ALT Pending Alkaline Phosphatase Pending Total Protein Pending Albumin Pending Levetiracetam Pending PFSH All Active Problems (Updated 04/03/25 @ 00:02 by KELLI ALANIS) Difficulty swallowing (Acute) Discharge planning issues (Acute) On deep vein thrombosis (DVT) prophylaxis (Acute) AMS (altered mental status) (Acute) Acute dehydration (Acute) Major depression, recurrent, chronic (Acute) Aspiration into airway (Acute) Palliative care patient (Acute) ACP (advance care planning) (Acute) DNR (do not resuscitate) (Acute) Delusions (Acute) Dementia (Chronic) Bladder mass (Acute) Chronic back pain (Chronic) Cystic mass of pancreas (Acute) Abnormal finding on CT scan (Acute) Sharifa coma scale score 3-8, at arrival to emergency department (Acute) Altered mental status (Acute) Encephalopathy (Acute) Acute UTI (Acute) Altered mental status (Acute) Failure to thrive in adult (Acute) Weakness (Acute) Falls frequently (Acute) Trouble talking (Acute) Acute UTI (Acute) Acute kidney injury superimposed on CKD (Acute) Lives in senior living (Acute) Deficit in activities of daily living (ADL) (Acute) Closed fracture of distal end of radius (Acute) Closed fracture of left distal radius (Acute) Closed fracture of right distal radius (Acute) Heart murmur (Acute) Depression (Chronic) At high risk for skin breakdown (Acute) Periorbital edema (Acute) Hiatal hernia (Chronic) moderate Coronary artery calcification seen on CAT scan (Acute) Diverticula of colon (Acute) DJD (degenerative joint disease), lumbar (Acute) History of CVA (cerebrovascular accident) (Acute) remote Fracture of both wrists (Acute) Goiter (Acute) Fibromyalgia (Chronic) KWAME (obstructive sleep apnea) (Chronic) Chronic pain (Chronic) Movement disorder (Acute) Chronic renal insufficiency, stage III (moderate) (Acute) Anemia (Chronic) Hypertension (Chronic) Medical History Low magnesium level UTI (urinary tract infection) Encephalopathy Seizure Psychiatric symptoms Ambulatory dysfunction AMS (altered mental status) Rhabdomyolysis Fall Primary osteoarthritis of left knee We will see the patient back in 4-1/2 months for possible repeat Synvisc 1 in her left knee would consider x-ray in her right knee if she is still significantly symptomatic Osteoarthritis of right knee Steroid injection: 04/05/2020 Has had previous viscosupplementation injections. 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) As treatment for a femoral neck fracture (DOI: 09/16/2020) History of back surgery Hx of cholecystectomy Social History Smoking/Tobacco Use Status: Never Smoking risk assessment performed?: Yes Alcohol Intake: never Drug use: Never Substance use type: does not use Housing: senior living Do you feel safe at home: Yes Do you feel safe in your relationship?: Yes Additional Social history: health and rehab Time Spent with Patient Time Spent with Patient: 45-69 minutes Time was spent: preparing to see the patient(eg.review tests), referring, communicating with other health director of health care marketing, indepentently interpreting results, counseling the patient and care coordination
--- NOTE | 2025-04-03 12:42 | CMDISCH_ITS ---
Date of service: 04/03/25 Time of Service: 12:43 LACE Index Scoring Tool Questions: Length of Stay (in days): 2 Was the patient admitted via the E.D.?: Yes Comorbidities: Cerebrovascular Disease E.D. Visits: 6 Answers: Total Score: 10 Risk of Readmission: High Risk Care Management Discharge Plan Reason for Hospitalization: Encephalopathy, dehydration Discharge Plan: Tegan is being discharged back to [facility] where she resides for LTC and will be transported via EMS. Patient will follow up with community/facility providers and continue per her discharge plan of care. Patient/Family Education Needs: Review discharge instructions and plan to follow up after discharge. Discuss ask me three. Services Needed at Discharge: [facility] Facility ([facility], coordinated b papo ALEJO) and Transportation (EMS, [facility], coordinated by CM. ) SDOH Health Related Social Needs: Health related social needs material hardship Health related social needs details pt. non verbal
== END 2025-04-03 15:09 | disposition skilled nursing facility (03) | DRG 884 ==
LOC: ER 04-02 00:14 → MS 04-02 02:00
PROVIDERS: Admitting Provider Family Medicine; Emergency Provider Student in an Organized Health Care Education/Training Program; PCP Family Medicine; Responsible Provider Nurse Practitioner Family; Visit Provider Family Medicine
DX: G93.40 Encephalopathy, unspecified (principal); E86.0 Dehydration; G47.33 Obstructive sleep apnea (adult) (pediatric); F01.C18 Vascular dementia, severe, with other behavioral disturbance; D63.8 Anemia in other chronic diseases classified elsewhere; M54.89 Other dorsalgia; G89.29 Other chronic pain; R13.10 Dysphagia, unspecified; Z79.899 Other long term (current) drug therapy; E87.0 Hyperosmolality and hypernatremia; I69.354 Hemiplegia and hemiparesis following cerebral infarction affecting left non-dominant side; F33.9 Major depressive disorder, recurrent, unspecified; Z66 Do not resuscitate; R56.9 Unspecified convulsions; I69.398 Other sequelae of cerebral infarction; Z79.891 Long term (current) use of opiate analgesic; R29.6 Repeated falls; R62.7 Adult failure to thrive; I12.9 Hypertensive chronic kidney disease with stage 1 through stage 4 chronic kidney disease, or unspecified chronic kidney disease; N18.30 Chronic kidney disease, stage 3 unspecified; E83.42 Hypomagnesemia; K58.1 Irritable bowel syndrome with constipation; Z98.1 Arthrodesis status; Z87.440 Personal history of urinary (tract) infections
CPT/HCPCS: 00123; 36415; 70496; 70498; 80053; 80307; 82805; 85027; 87637; 93005; 96360; 96361; 99285; J1650; 70551; 80177; 80320; 81003; 83735; 84443; 84484; 85025; 93010; 99223; 99233; 99239; J1953; J3480; J3490

== ENCOUNTER 2025-04-15 11:44 | Outpatient (REF) | payer MEDICARE, MEDICAID, SELFPAY ==
[2025-04-15 12:36] LABS: Abs Immature Grans 0.03 10^3/uL (0.0-0.06); HCT 30.5 % (36.0-46.0); HGB 9.4 g/dL (11.2-15.7); Immature Grans % 0.5 %; MCH 27.1 pg (27.0-33.0); MCHC 30.8 % (32.0-36.0); MCV 88 fL (80-95); MPV 10.4 fL (8.0-11.0); Platelet Count 246 10^3/uL (130-400); RBC 3.47 10^6/uL (3.93-5.22); RDW 14.1 % (11.7-14.6); RDW-SD 44.9 fL; WBC 5.90 10^3/uL (4.4-10.8)
[2025-04-15 12:47] LABS: Anion Gap 9.0 mmol/L (3-11); BUN 24 mg/dL (7-18); CO2 29.0 mmol/L (21.0-32.0); Calcium 9.3 mg/dL (8.5-10.1); Chloride 109 mmol/L (98-107); Estimated GFR 92.97 (mL/min/1.73m2); Glucose 103 mg/dL (74-106); Potassium 3.5 mmol/L (3.5-5.1); Sodium 147 mmol/L (136-145)
[2025-04-16 13:34] LABS: Glucose Negative (Negative)
[2025-04-16 13:37] LABS: RBC >50 HPF (0-2); WBC >50 HPF (0-5)
== END 2025-04-15 11:45 | disposition home or self-care (01) ==
LOC: LBN 11:44
PROVIDERS: PCP Family Medicine; Visit Provider Nurse Practitioner Adult Health
DX: I13.10 Hypertensive heart and chronic kidney disease without heart failure, with stage 1 through stage 4 chronic kidney disease, or unspecified chronic kidney disease (principal)
CPT/HCPCS: 80048; 87077; 81003; 81015; 85025; 87086; 87186

== ENCOUNTER 2025-04-30 23:18 | Inpatient (IN) | payer MEDICARE, MEDICAID, SELFPAY ==
[2025-04-30 23:15] VITALS: BP 139/77; PULSE 66; RESP 26; TEMP 38.3; O2SAT 91
[2025-04-30 23:17] VITALS: PULSE 67; O2SAT 90
[2025-04-30 23:18] VITALS: BP 139/77; PULSE 89; RESP 26; O2SAT 91
[2025-04-30 23:30] VITALS: PULSE 110; PULSE 113; RESP 18; O2SAT 89
[2025-04-30 23:41] LABS: BE (Venous) 6 mmol/L (-2-3); HCO3 (Venous) 29 mmol/L (23-28); O2 Sat (Venous) 92 %; TCO2 (Venous) 26 mmol/L (24-29); pCO2 (Venous) 37 mmHg (41-51); pO2 (Venous) 58 mmHg
[2025-04-30] MEDS: Normal Saline 1,000 ML 1000 ML IV (23:41)
[2025-04-30 23:42] LABS: Abs Immature Grans 0.04 10^3/uL (0.0-0.06); HCT 31.6 % (36.0-46.0); HGB 10.3 g/dL (11.2-15.7); Immature Grans % 0.4 %; MCH 28.1 pg (27.0-33.0); MCHC 32.6 % (32.0-36.0); MCV 86 fL (80-95); MPV 9.7 fL (8.0-11.0); Platelet Count 268 10^3/uL (130-400); RBC 3.67 10^6/uL (3.93-5.22); RDW 14.2 % (11.7-14.6); RDW-SD 44.5 fL; WBC 9.67 10^3/uL (4.4-10.8)
--- NOTE | 2025-04-30 23:52 | DI.RAD_ITS ---
Exam(s) XR PORTABLE CHEST AP EXAM: XR PORTABLE CHEST AP CLINICAL HISTORY: septic, fever, cough. TECHNIQUE: 2D digital imaging was performed. COMPARISON: CR,XR XR PORTABLE CHEST AP from 03/02/2025 FINDINGS: Single AP portable view. Heart size is upper normal. The mediastinum is not widened. Right lung is clear. However, there is significant infiltrate in left lower lobe. No pleural effusions. No pulmonary edema. IMPRESSION: Left lower lobe infiltrate. No obvious pleural effusions Lumen area V rad report was reviewed DATA REPOSITORY: RADIATION DOSE DELIVERED:
[2025-05-01] VITALS (23 sets, daily range): BP systolic 98–139; BP diastolic 41–72; PULSE 57–106; RESP 16–25; TEMP 36.5–36.9; O2SAT 87–98
[2025-05-01 00:04] LABS: AST 16 U/L (<34); Albumin 3.4 g/dL (3.4-5.0); Alkaline Phosphatase 66 U/L (46-116); Anion Gap 9.1 mmol/L (3-11); BUN 26 mg/dL (9-23); Bilirubin, Total 0.50 mg/dL (0.2-1.2); CO2 26.9 mmol/L (20.0-31.0); Calcium 8.9 mg/dL (8.3-10.6); Chloride 112 mmol/L (98-107); Glucose 234 mg/dL (74-106); Potassium 3.4 mmol/L (3.5-5.1); Sodium 148 mmol/L (136-145); Total Protein 7.3 g/dL (5.7-8.2)
[2025-05-01 00:06] LABS: ALT < 7 U/L (10-49)
--- NOTE | 2025-05-01 00:08 | DI.VRAD_ITS ---
PROCEDURE INFORMATION: Exam: XR Chest Exam date and time: 04/30/2025 23:38 Age: 74 years old Clinical indication: Cough and fever; Septic, fever, cough TECHNIQUE: Imaging protocol: Radiologic exam of the chest. Views: 1 view. COMPARISON: CT BRAIN NECK CTA 04/01/2025 22:28 FINDINGS: Lungs: Patchy moderate opacity left lung base . The lungs appear hyperinflated. Pleural spaces: No pleural effusion. No pneumothorax. Heart/Mediastinum: No cardiomegaly. Bones/joints: Cervical spine fixation hardware is partially assessed. Evidence of right rotator cuff repair. The bones are demineralized. No displaced fracture. IMPRESSION: 1. Patchy moderate opacity left lung base, probable pneumonia, follow-up warranted. 2. Chronic findings as described. Dictated and Authenticated by: Marci Dalton MD. Orderin Emma Madison MD
[2025-05-01 00:13] LABS: Procalcitonin 0.22 ng/mL
[2025-05-01 00:32] LABS: Glucose Negative (Negative)
--- NOTE | 2025-05-01 00:32 | W.ED.GENAD ---
Discharge Plan Disposition Patient Disposition: Admit to [facility] Condition: Stable Discharge Details Clinical Impression: Sepsis, Pneumonia, Hypoxemia Primary Care Provider: Danny Maldonado ED Provider: Los Carter Home Meds and New Rx's Prescriptions: No Action oxycodone 5 mg tablet See Rx Instructions PO BID PRN Rx Instructions: 1 BID and addl 1 as needed orally twice a day PRN; lactulose [Enulose] 10 gram/15 mL solution 15 ml PO DAILY acetaminophen 325 mg tablet 650 mg PO Q6H PRN aspirin 81 mg tablet,delayed release (DR/EC) 81 mg PO DAILY mirtazapine 15 mg Tablet 15 mg PO HS Qty: 30 0RF amlodipine 10 mg tablet 10 mg PO DAILY naloxone 4 mg/actuation spray,non-aerosol 4 mg INTRANASAL ONCE PRN Patient Comments: ADMINISTER 1 SPRAY INTO ONE NOSTRIL A SINGLE DOSE NEEDED FOR EXCESSIVE SEDATION atorvastatin 20 mg Tablet 20 mg PO QPM Qty: 30 0RF risperidone 1 mg tablet 1 mg PO BID Patient Comments: TAKE ONE TABLET BY MOUTH AT BEDTIME nitrofurantoin macrocrystal 100 mg capsule 100 mg PO DAILY levetiracetam 100 mg/mL solution 500 mg PO BID lorazepam 0.5 mg tablet 0.5 mg PO QHS Patient Comments: UNdergoing taper off. HPI General Date/Time Provider Initiated Documentation: 05/01/25 00:03. HPI Narrative: 74-year-old female with a past medical history of depression, CVA, irritable bowel syndrome, fibromyalgia, obstructive sleep apnea, chronic renal insufficiency, hypertension, who [facility] secondary to notable functional and cognitive decline over the last 7 months who is a DNR/DNI with request for limited interventions of IV fluids and antibiotics if indicated but no heroic interventions who presents today for evaluation of feeling unwell. Patient presents from [facility] via [facility]. History is notably limited. Patient is quite confused and diminished. No other complaints at this time. Related Data Home Medications Medication Instructions Recorded Confirmed aspirin 81 mg tablet,delayed 81 mg PO DAILY 06/23/21 04/30/25 release amlodipine 10 mg tablet 10 mg PO DAILY 01/14/22 04/30/25 naloxone 4 mg/actuation nasal spray 4 mg intranasal ONCE PRN 07/16/23 04/30/25 atorvastatin 20 mg tablet 20 mg PO QPM #30 tabs 08/23/24 04/30/25 mirtazapine 15 mg tablet 15 mg PO HS #30 tabs 09/01/24 04/30/25 nitrofurantoin macrocrystal 100 mg 100 mg PO DAILY 12/21/24 04/30/25 capsule risperidone 1 mg tablet 1 mg PO BID 01/29/25 04/30/25 levetiracetam 100 mg/mL oral 500 mg PO BID 04/02/25 04/30/25 solution acetaminophen 325 mg tablet 650 mg PO Q6H PRN 04/30/25 04/30/25 lactulose 10 gram/15 mL oral 15 ml PO DAILY 04/30/25 04/30/25 solution (Enulose) lorazepam 0.5 mg tablet 0.5 mg PO QHS 04/30/25 04/30/25 oxycodone 5 mg tablet See Rx Instructions PO BID PRN 04/30/25 04/30/25 Previous Rx's Medication Instructions Recorded atorvastatin 20 mg tablet 20 mg PO QPM #30 tabs 08/23/24 mirtazapine 15 mg tablet 15 mg PO HS #30 tabs 09/01/24 Allergies Allergy/AdvReac Type Severity Reaction Status Date / Time sulfamethoxazole (From Allergy Diarrhea Verified 04/02/25 01:26 Bactrim) trimethoprim (From Bactrim) Allergy Diarrhea Verified 04/02/25 01:26 morphine AdvReac Intermediate Psychosis Verified 04/02/25 01:26 baclofen AdvReac Unknown Unknown Verified 04/02/25 01:26 chlorthalidone AdvReac Unknown Unknown Verified 04/02/25 01:26 codeine AdvReac Unknown Unknown Verified 04/02/25 01:26 dextromethorphan AdvReac Unknown Unknown Verified 04/02/25 01:26 gabapentin (From Neurontin) AdvReac Unknown Unknown Verified 04/02/25 01:26 hydrochlorothiazide AdvReac Unknown Unknown Verified 04/02/25 01:26 pregabalin AdvReac Unknown Dopey Verified 04/02/25 01:26 General Stated Complaint: Fever LOLITA: 3 Exam Narrative Exam Narrative: 1.Const: Well-nourished, Well-developed, appearing stated age 2.Eyes: PERRL, no conjunctival injection, and symmetrical lids. 3.ENT: Atraumatic external nose and ears. Notably dry MM. Neck: Symmetric, trachea midline, No thyromegaly. 4.CVS: +S1/S2, Peripheral pulses 2+ and equal in all extremities. Brisk capillary refill in all extremities. 5.RESP: Unlabored respiratory effort. Tachypneic, rhonchorous breath sounds 6.GI: Soft, Nontender/Nondistended, No hepatosplenomegaly. No guarding or rebound. 7.MSK: Normocephalic/Atraumatic, Extremities w/o deformity or ttp No cyanosis or clubbing, Normal movement of all extremities 8.Skin: Warm, Dry. No rashes or lesions. 9.Neuro: tailercpa II-XII grossly intact. Sensation grossly intact, no focal neurologic deficits. GCS is around 9 10.Psych: (AAO) x0. Course Vital Signs Vital signs: Vital Signs Temperature 38.3 C H 04/30/25 23:15 Pulse 66 04/30/25 23:15 Respiratory Rate 26 H 04/30/25 23:15 Blood Pressure 139/77 04/30/25 23:15 Pulse Oximetry 91 L 04/30/25 23:15 Temperature 38.3 C H 04/30/25 23:15 Temperature Source Oral 04/30/25 23:15 Pulse 66 04/30/25 23:15 Respiratory Rate 26 H 04/30/25 23:15 Blood Pressure 139/77 04/30/25 23:15 Blood Pressure Position Supine 04/30/25 23:15 Pulse Oximetry 91 L 04/30/25 23:15 Oxygen Delivery Method Room Air 04/30/25 23:15 Oxygen Flow Rate 0 04/30/25 23:15 Pain Level 0 04/30/25 23:15 Lab/Test Results Lab/Test Results: 04/30/25 23:45 Blood Blood Culture - Pending 04/30/25 23:32 Blood Blood Culture - Pending Laboratory Tests Range/Units 04/30/25 23:32 WBC (4.4-10.8) 10^3/uL 9.67 RBC (3.93-5.22) 10^6/uL 3.67 L Hgb (11.2-15.7) g/dL 10.3 L Hct (36.0-46.0) % 31.6 L MCV (80-95) fL 86 MCH (27.0-33.0) pg 28.1 MCHC (32.0-36.0) % 32.6 RDW (11.7-14.6) % 14.2 Plt Count (130-400) 10^3/uL 268 MPV (8.0-11.0) fL 9.7 Immature Gran % % 0.4 Neutrophils % % 91.6 Lymphocytes % % 2.0 Monocytes % % 5.9 Eosinophils % % 0.0 Basophils % % 0.1 Nucleated RBC % (0.0-0.3) % 0.0 Absolute Neutrophils (1.2-6.7) 10^3/uL 8.86 H Absolute Lymphocytes (1.2-3.4) 10^3/uL 0.19 L Absolute Monocytes (0.1-0.8) 10^3/uL 0.57 Absolute Eosinophils (0.0-0.7) 10^3/uL 0.00 Absolute Basophils (0.0-0.2) 10^3/uL 0.01 VBG pH (7.31-7.41) 7.50 H VBG pCO2 (41-51) mmHg 37 L VBG pO2 mmHg 58 VBG HCO3 (23-28) mmol/L 29 H VBG Total CO2 (24-29) mmol/L 26 VBG O2 Saturation % 92 VBG Base Excess (-2-3) mmol/L 6 H VBG Lactate (<or=2.0) mmol/L 1.7 Sodium (136-145) mmol/L 148 H Potassium (3.5-5.1) mmol/L 3.4 L Chloride (98-107) mmol/L 112 H Carbon Dioxide (20.0-31.0) mmol/L 26.9 Anion Gap (3-11) mmol/L 9.1 BUN (9-23) mg/dL 26 H Creatinine (0.55-1.02) mg/dL 0.5 L Est GFR (CKD-EPI 2020) (mL/min/1.73m2) 117.10 Glucose (74-106) mg/dL 234 H Calcium (8.3-10.6) mg/dL 8.9 Total Bilirubin (0.2-1.2) mg/dL 0.50 AST (<34) U/L 16 ALT (10-49) U/L < 7 L Alkaline Phosphatase (46-116) U/L 66 Total Protein (5.7-8.2) g/dL 7.3 Albumin (3.4-5.0) g/dL 3.4 Procalcitonin ng/mL 0.22 Medical Decision Making 74-year-old female with a past medical history of depression, CVA, irritable bowel syndrome, fibromyalgia, obstructive sleep apnea, chronic renal insufficiency, hypertension, who currently resides at [facility] secondary to notable functional and cognitive decline over the last 7 months who is a DNR/DNI with request for limited interventions of IV fluids and antibiotics if indicated but no heroic interventions who presents today for evaluation of feeling unwell. Patient presents from [facility] via EMS. History is notably limited. Patient is quite confused and diminished. No other complaints at this time. Exam demonstrates a confused ill-appearing female, she is febrile, rhonchorous breath sounds, GCS around 9. Concern for pneumonia and sepsis. Liter of IV fluids was given, patient meets sepsis criteria with tachypnea elevated temperature, and subsequent x-ray that was ordered demonstrates left-sided pneumonia. Patient has no white count but lactate is elevated. Renal function stable, VBG demonstrates slight alkalosis likely from tachypnea. Pending Fluvid. Patient started on vancomycin, Zosyn and azithromycin. Patient was recently here within the last 30 days and admitted to the hospital. Vital signs stable for [facility] admission at this point. Discussed case with hospitalist Dr. Archibald, he agrees with the assessment and plan. I have extensively reviewed the treatment plan with the patient. I have addressed all patient concerns at this time. I have also discussed the plan with the admitting physician and they agree with the current assessment and plan and have agreed to assume responsibility for the patient. All parties demonstrate verbal understanding and agreement with our assessment and plan at this time. The documentation in this chart was dictated using [employer] dictation software. Please excuse any dictation errors. Quality:SDOH Health Related Social Needs: Health related social needs material hardship Health related social needs details pt. non verbal Critical Care Time Critical Care Time Critical Care Time: Yes Total Critical Care Time: 45 Attestation: Upon my evaluation, this patient had a high probability of imminent or life-threatening deterioration, which required my direct attention, intervention, and personal management. I have personally provided 45 minutes of critical care time exclusive of time spent on separately billable procedures. Time includes review of laboratory data, radiology results, discussion with consultants, and monitoring for potential decompensation. Interventions were performed as documented. [facility] All Active Problems (Updated 05/01/25 @ 00:39 by Los Carter DO) Hypoxemia (Acute) Pneumonia (Acute) Sepsis (Acute) Difficulty swallowing (Acute) AMS (altered mental status) (Acute) Acute dehydration (Acute) Major depression, recurrent, chronic (Acute) Aspiration into airway (Acute) Palliative care patient (Acute) ACP (advance care planning) (Acute) DNR (do not resuscitate) (Acute) Delusions (Acute) Dementia (Chronic) Bladder mass (Acute) Chronic back pain (Chronic) Cystic mass of pancreas (Acute) Abnormal finding on CT scan (Acute) [place] coma scale score 3-8, at arrival to emergency department (Acute) Altered mental status (Acute) Encephalopathy (Acute) Acute UTI (Acute) Altered mental status (Acute) Failure to thrive in adult (Acute) Weakness (Acute) Falls frequently (Acute) Trouble talking (Acute) Acute UTI (Acute) Acute kidney injury superimposed on CKD (Acute) Lives in retirement (Acute) Deficit in activities of daily living (ADL) (Acute) Closed fracture of distal end of radius (Acute) Closed fracture of left distal radius (Acute) Closed fracture of right distal radius (Acute) Heart murmur (Acute) Depression (Chronic) At high risk for skin breakdown (Acute) Periorbital edema (Acute) Hiatal hernia (Chronic) moderate Coronary artery calcification seen on CAT scan (Acute) Diverticula of colon (Acute) DJD (degenerative joint disease), lumbar (Acute) History of CVA (cerebrovascular accident) (Acute) remote Fracture of both wrists (Acute) Goiter (Acute) Fibromyalgia (Chronic) Chronic pain (Chronic) Movement disorder (Acute) Chronic renal insufficiency, stage III (moderate) (Acute) Hypertension (Chronic) Medical History Low magnesium level UTI (urinary tract infection) Encephalopathy Seizure Psychiatric symptoms Ambulatory dysfunction AMS (altered mental status) Rhabdomyolysis Fall Primary osteoarthritis of left knee We will see the patient back in 4-1/2 months for possible repeat Synvisc 1 in her left knee would consider x-ray in her right knee if she is still significantly symptomatic Osteoarthritis of right knee Steroid injection: 04/05/2020 Has had previous viscosupplementation injections. 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) As treatment for a femoral neck fracture (DOI: 09/16/2020) History of back surgery Hx of cholecystectomy Social History Smoking/Tobacco Use Status: Never Smoking risk assessment performed?: Yes Alcohol Intake: never Drug use: Never Substance use type: does not use Housing: retirement Do you feel safe at home: Yes Do you feel safe in your relationship?: Yes Additional Social history: health and rehab
[2025-05-01 00:33] LABS: COVID-19 PCR Negative (Negative); RSV PCR Negative (Negative)
[2025-05-01] MEDS: PIPERACILLIN/TAZO 3.375 GM in Normal Saline 50 ML IVPB ×4 (00:35→17:26)
[2025-05-01 00:39] LABS: C & S Indicated? No
--- NOTE | 2025-05-01 00:41 | HPE_ITS ---
Date of service: 05/01/25 Time of Service: 00:41 Assessment and Plan Assessment and plan (1) Sepsis: Start date: 05/01/25 Status: Acute Assessment and plan: This is a 74-year-old lady with recurrent hospitalizations for acute infections and encephalopathy. She presents with sepsis presently without shock and without significant organ dysfunction. She does have a left lower lobe pneumonia and presented with fever, tachypnea and source of infection. She does have metabolic encephalopathy which is recurrent when she comes to the hospital ill and she was talking in the ED more than he was was admitted to the medical floor. Will be treated aggressively for her source of infection with hospital- acquired pneumonia and because of her change in mental status and ammonia level along with repeat VBG and lactate will be done. Prognosis is poor the patient. To have stepwise decline and she is a DNR/DNI. (2) Pneumonia: Start date: 05/01/25 Status: Acute Assessment and plan: Left lower lobe and recent hospitalization therefore we will treat as hospital- acquired pneumonia with Zosyn, vancomycin and Zithromax. (3) Hypoxemia: Start date: 05/01/25 Status: Acute Assessment and plan: O2 supplementation and watch closely for worsening with CO2 retention which may decrease respiratory effort. She is not a candidate for BiPAP at this time being encephalopathic and not able to guard her airway. She is a DNI. (4) Encephalopathy: Assessment and plan: Metabolic and secondary to acute infection. Patient usually improves once the acute process is improving. With his short-term recurrence prognosis is poor. Patient will have a Hawkins catheter not able to move and continue IV fluids with trending lab to treat reversible problems. (5) Hypokalemia: Start date: 05/01/25 Status: Acute Assessment and plan: Patient probably has poor intake hypokalemia with IV fluid resuscitation to include 40 mEq over the next 8 hours. Watch for fluid overload. (6) Dementia: Status: Chronic Assessment and plan: Vascular dementia with some behavioral abnormality when the patient is awake. Is also closer with her depression. He also has a seizure disorder which may be secondary to her previous CVA. Continue outpatient medical therapy as patient allows when she awakens. (7) KWAME (obstructive sleep apnea): Assessment and plan: Patient not a candidate for BiPAP or CPAP at this time with altered mental status and not guarding her airway. Consider treating if patient awakens. Check with skilled nursing as to whether she is on CPAP at night in the skilled nursing. (8) Hypertension: Status: Chronic Assessment and plan: Continue outpatient medical therapy with monitoring. (9) CVA (cerebral vascular accident): Assessment and plan: Previous stroke with no obvious deficit but untestable with patient encephalopathic. He also appears to have associated seizures and is on levetiracetam. This could be given IV if needed. (10) Diabetes mellitus: Status: Chronic Assessment and plan: Patient is not on medical therapy at the skilled nursing and did have CKD in the past which improved. While hospitalized and n.p.o., glucometer measurements every 6 hours with coverage using moderate sliding scale. (11) Chronic back pain: Status: Chronic Assessment and plan: Patient is on oxycodone chronically for back pain and has naloxone as a rescue at the skilled nursing. PDMP is consistent with patient's prescription for oxycodone twice daily. Urine drug screen was not done to the patient in the supervised environment and not at high risk for self treatment. Patient will not need this medicine if she remains encephalopathic and appears comfortable. (12) Major depression, recurrent, chronic: Status: Chronic Assessment and plan: Continue outpatient medical therapy but consider holding lorazepam call patient is encephalopathic. By PDMP review, lorazepam does not appear to be consistently prescribed and question whether this is needed long-term especially with risk of having oxycodone twice daily. History of Present Illness History of Present Illness Chief Complaint: Fever with altered mental status. Narrative: This is a 74-year-old female patient who has had cognitive decline in the last 7 months without a local skilled nursing reporting to the ED with feeling unwell. There is no report of respiratory symptoms or cough and no reported fever though in the ED she did have a fever. Was hospitalized recently with pneumonia and altered mental status. In the ED she had a Glascow 9 but at the time I saw the patient she was a Glascow 6 at best responded to pain but having her eyes closed and not responding verbally. She was lying in bed with her mouth open with decreased respirations but appeared comfortable. Also in the ED evaluation did reveal a left lower lobe pneumonia which now would be a hospital-acquired pneumonia with the patient presented with fever and tachypnea with VBG revealing respiratory alkalosis. She was requiring oxygen and acutely not hypoxic. She met sepsis criteria but was not in shock therefore will be admitted to the medical floor for IV hydration with some replacement of her potassium with that infusion. The patient is overall declining with less mobility and trauma over the feet revealing poor ambulation. She is a DNR/DNI. Review of Systems Narrative: 13 point review of systems otherwise unrevealing or stable by report, patient is nonverbal. COUNTS INCLUDE 234 BEDS AT THE [facility] All Active Problems (Updated 05/01/25 @ 08:17 by Pedro Archibald) Diabetes mellitus (Chronic) Hypokalemia (Acute) Hypoxemia (Acute) Pneumonia (Acute) Sepsis (Acute) Difficulty swallowing (Acute) AMS (altered mental status) (Acute) Acute dehydration (Acute) Major depression, recurrent, chronic (Chronic) Aspiration into airway (Acute) Palliative care patient (Acute) ACP (advance care planning) (Acute) DNR (do not resuscitate) (Acute) Delusions (Acute) Dementia (Chronic) Bladder mass (Acute) Chronic back pain (Chronic) Cystic mass of pancreas (Acute) Abnormal finding on CT scan (Acute) Jelm coma scale score 3-8, at arrival to emergency department (Acute) Altered mental status (Acute) Encephalopathy (Acute) Acute UTI (Acute) Altered mental status (Acute) Failure to thrive in adult (Acute) Weakness (Acute) Falls frequently (Acute) Trouble talking (Acute) Acute UTI (Acute) Acute kidney injury superimposed on CKD (Acute) Lives in skilled nursing (Acute) Deficit in activities of daily living (ADL) (Acute) Closed fracture of distal end of radius (Acute) Closed fracture of left distal radius (Acute) Closed fracture of right distal radius (Acute) Heart murmur (Acute) Depression (Chronic) At high risk for skin breakdown (Acute) Periorbital edema (Acute) Hiatal hernia (Chronic) moderate Coronary artery calcification seen on CAT scan (Acute) Diverticula of colon (Acute) DJD (degenerative joint disease), lumbar (Acute) History of CVA (cerebrovascular accident) (Acute) remote Fracture of both wrists (Acute) Goiter (Acute) Fibromyalgia (Chronic) Chronic pain (Chronic) Movement disorder (Acute) Chronic renal insufficiency, stage III (moderate) (Acute) Hypertension (Chronic) Medical History KWAME (obstructive sleep apnea) Anemia Low magnesium level UTI (urinary tract infection) Encephalopathy Seizure Psychiatric symptoms Ambulatory dysfunction AMS (altered mental status) Rhabdomyolysis Fall Primary osteoarthritis of left knee We will see the patient back in 4-1/2 months for possible repeat Synvisc 1 in her left knee would consider x-ray in her right knee if she is still significantly symptomatic Osteoarthritis of right knee Steroid injection: 04/05/2020 Has had previous viscosupplementation injections. 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) As treatment for a femoral neck fracture (DOI: 09/16/2020) History of back surgery Hx of cholecystectomy Social History Smoking/Tobacco Use Status: Never Smoking risk assessment performed?: Yes Alcohol Intake: never Drug use: Never Substance use type: does not use Housing: assisted living facility Do you feel safe at home: Yes Do you feel safe in your relationship?: Yes Additional Social history: health and rehab Meds Allergies and Home Medications Allergies Allergy/AdvReac Type Severity Reaction Status Date / Time sulfamethoxazole (From Allergy Diarrhea Verified 04/02/25 01:26 Bactrim) trimethoprim (From Bactrim) Allergy Diarrhea Verified 04/02/25 01:26 morphine AdvReac Intermediate Psychosis Verified 04/02/25 01:26 baclofen AdvReac Unknown Unknown Verified 04/02/25 01:26 chlorthalidone AdvReac Unknown Unknown Verified 04/02/25 01:26 codeine AdvReac Unknown Unknown Verified 04/02/25 01:26 dextromethorphan AdvReac Unknown Unknown Verified 04/02/25 01:26 gabapentin (From Neurontin) AdvReac Unknown Unknown Verified 04/02/25 01:26 hydrochlorothiazide AdvReac Unknown Unknown Verified 04/02/25 01:26 pregabalin AdvReac Unknown Dopey Verified 04/02/25 01:26 Home Medications Medication Instructions Recorded Confirmed Type aspirin 81 mg tablet,delayed 81 mg PO DAILY 06/23/21 1 07/01/24 History release amlodipine 10 mg tablet 10 mg PO DAILY 01/14/2204/18 History naloxone 4 mg/actuation nasal spray 4 mg intranasal ON CE PRN 07/16/23 05/01/25 History Held on 05/01/25. Instructions: Pt Stopped/Never Started atorvastatin 20 mg tablet 20 mg PO QPM #30 tabs 05/01/25 Rx mirtazapine 15 mg tablet 15 mg PO HS #30 tabs 5 05/01/25 Rx nitrofurantoin macrocrystal 100 mg 100 mg PO DAILY 12/1005/01/25 History capsule risperidone 1 mg tablet 1 mg PO BID 01/29/25 5 History levetiracetam 100 mg/mL oral 500 mg PO BID 04/02/25 History solution acetaminophen 325 mg tablet 650 mg PO Q6H PRN 04/30/25 05/01/25 History lactulose 10 gram/15 mL oral 15 ml PO DAILY 04/30/25 1 07/01/24 History solution (Enulose) lorazepam 0.5 mg tablet 0.5 mg PO QHS 04/30/2505/01 History oxycodone 5 mg tablet 5 mg PO BID PRN 04/30/25 History bisacodyl 10 mg rectal suppository 10 mg MO DAILY PRN 05/01/25 05/01/25 History (Dulcolax (bisacodyl)) sennosides 8.6 mg tablet 34.4 mg PO BID PRN 05/01/25 05/01/25 History (Black-Draught Lax-Senna) Exam Narrative Exam Narrative: General: Patient appears older than stated age, cachectic, lying in bed with head slightly inclined upward and mouth open without patient responding to verbal stimulation but only painful simulation. She does not appear in any distress and is encephalopathic. HEENT: Normocephalic, coarse and facial features, eyes closed but when open pupils equal and reactive light symmetrically with sclera anicteric. Oropharynx with dry mucosa and poor dentition. Patient is breathing with her mouth open. Neck: Supple without JVD. Back: Not examined patient supine and nonresponsive except for pain. Lungs: Decreased aeration with coarse. Effort spontaneously with patient having pauses in her breathing and not tachypneic at the time of my exam. She has decreased air sounds over the left lung fraga. She also has sonorous rhonchi. Breast: Exam deferred. Heart: Irregular rhythm with normal rate, 3/6 to 4/6 holosystolic murmur over apex and left border. Abdomen: Scaphoid contour, soft and nontender to palpation without focalizing guarding or rebound. No palpable hepatosplenomegaly. Genitalia/rectal: Exam deferred. Extremities: Muscle wasting diffusely with no pitting edema, cyanosis or clubbing. Mycotic appearing toenails with some avulsions and old blood over her toes. Fair cap refill. Skin: Pale, warm and dry with chronic skin changes from trauma over the feet as noted. Neuro: Glascow score 6 with patient responding to painful stimuli and moving all extremities with that stimulation, no Romberg, no tremor, motor not testable with patient encephalopathic. Psych: Encephalopathic and not testable. Patient has history of depression. Results Imaging Imaging Studies: Exam: XR Chest Exam date and time: 04/30/2025 23:38 Age: 74 years old Clinical indication: Cough and fever; Septic, fever, cough TECHNIQUE: Imaging protocol: Radiologic exam of the chest. Views: 1 view. COMPARISON: CT BRAIN NECK CTA 04/01/2025 22:28 FINDINGS: Lungs: Patchy moderate opacity left lung base . The lungs appear hyperinflated. Pleural spaces: No pleural effusion. No pneumothorax. Heart/Mediastinum: No cardiomegaly. Bones/joints: Cervical spine fixation hardware is partially assessed. Evidence of right rotator cuff repair. The bones are demineralized. No displaced fracture. IMPRESSION: 1. Patchy moderate opacity left lung base, probable pneumonia, follow-up warranted. 2. Chronic findings as described. Labs 05/01/25 06:33 05/01/25 06:33 Labs: Laboratory Results - last 24 hr 04/30/25 04/30/25 05/01/25 23:32 23:51 00:28 WBC 9.67 RBC 3.67 L Hgb 10.3 L Hct 31.6 L MCV 86 MCH 28.1 MCHC 32.6 RDW 14.2 Plt Count 268 MPV 9.7 Immature Gran % 0.4 Neutrophils % 91.6 Lymphocytes % 2.0 Monocytes % 5.9 Eosinophils % 0.0 Basophils % 0.1 Nucleated RBC % 0.0 Absolute Neutrophils 8.86 H Absolute Lymphocytes 0.19 L Absolute Monocytes 0.57 Absolute Eosinophils 0.00 Absolute Basophils 0.01 VBG pH 7.50 H VBG pCO2 37 L VBG pO2 58 VBG HCO3 29 H VBG Total CO2 26 VBG O2 Saturation 92 VBG Base Excess 6 H VBG Lactate 1.7 Sodium 148 H Potassium 3.4 L Chloride 112 H Carbon Dioxide 26.9 Anion Gap 9.1 BUN 26 H Creatinine 0.5 L Est GFR (CKD-EPI 2020) 117.10 Glucose 234 H Calcium 8.9 Total Bilirubin 0.50 AST 16 ALT < 7 L Alkaline Phosphatase 66 Total Protein 7.3 Albumin 3.4 Procalcitonin 0.22 Urine Color Yellow Urine Clarity Clear Urine pH 5.5 Ur Specific [place] 1.015 Urine Protein 30 H Urine Ketones Trace H Urine Blood Moderate H Urine Nitrite Negative Urine Bilirubin Small H Urine Urobilinogen 0.2 Ur Leukocyte Esterase Negative Urine RBC 10-20 H Urine WBC 3-5 Ur Epithelial Cells Moderate Urine Crystals Negative Urine Bacteria Moderate Urine Casts 0-2 Hyaline Urine Mucus Negative Ur Culture Indicated? No Urine Glucose Negative COVID-19 Source Nasopharynx SARS-CoV-2 (PCR) Negative Influenza Type A (PCR) Negative Influenza Type B (PCR) Negative RSV (PCR) Negative Last Vital Signs Temp 38.3 C H 04/30/25 23:15 Pulse 66 04/30/25 23:15 Resp 26 H 04/30/25 23:15 BP 139/77 04/30/25 23:15 Pulse Ox 91 L 04/30/25 23:15 Time Spent Time spent with Patient: >75 minutes Time was spent: preparing to see the patient(eg.review tests), obtaining and/or reviewing separately otained hiistory, ordering medications,tests, procedures, indepentently interpreting results and care coordination
[2025-05-01] MEDS: ACETAMINOPHEN 1,000 MG/100 ML BAG 400 MG IVPB ×2 (00:44→15:58)
[2025-05-01] MEDS: AZITHROMYCIN 500 MG in Normal Saline 250 ML 250 MG IVPB ×2 (01:13→23:18)
[2025-05-01] MEDS: VANCOMYCIN 1,000 MG in Normal Saline 500 ML 333.3333 MG IVPB (01:35)
--- NOTE | 2025-05-01 02:06 | W.PC.ACHO ---
Registration Status: REG ER Primary Language: Preferred Language: Portuguese ED Information & Data Chief Complaint Fever 05/01/25 00:34 Triage Note Pt brought in by [facility] 04/30/25 23:15 from nursing home facility. Per EMS pt is febrile (104F at SNF and 102F with EMS). Pt received Tylenol at SNF prior to EMS arrival. Pt is lethargic and and warm to touch. Medical / Surgical History (Last Reviewed 05/01/25 @ 00:43 by Pedro Archibald) KWAME (obstructive sleep apnea) Anemia Low magnesium level UTI (urinary tract infection) Encephalopathy Seizure Psychiatric symptoms Ambulatory dysfunction AMS (altered mental status) Rhabdomyolysis Fall Primary osteoarthritis of left knee Osteoarthritis of right knee Chronic pain syndrome Left elbow contusion Muscle weakness Tendonitis of left rotator cuff Recurrent UTI (urinary tract infection) Hypomagnesemia Primary osteoarthritis, left shoulder Left rotator cuff tear arthropathy Impacted cerumen of both ears Bilateral sensorineural hearing loss Pneumonia Left displaced femoral neck fracture (09/16/20) Fracture of left hip CVA (cerebral vascular accident) Recurrent UTI IBS (irritable bowel syndrome) Urge incontinence Chronic constipation Chronic insomnia (Last Reviewed 05/01/25 @ 00:43 by Pedro Archibald) S/P cervical spinal fusion History of total left hip replacement (09/17/20) History of back surgery Hx of cholecystectomy Most Recent Vital Signs Temperature 36.9 C 05/01/25 01:43 Temperature Source Oral 05/01/25 01:43 Pulse 79 05/01/25 01:31 Pulse 79 05/01/25 01:31 Respiratory Rate 18 05/01/25 01:55 Blood Pressure 112/61 05/01/25 01:31 Blood Pressure Mean 76 05/01/25 01:31 Blood Pressure Position Supine 04/30/25 23:15 Pulse Oximetry 90 L 05/01/25 01:31 Oxygen Delivery Method Room Air 04/30/25 23:15 Oxygen Flow Rate 0 04/30/25 23:15 Pain Level 0 04/30/25 23:15 Allergies sulfamethoxazole (From Bactrim) Allergy (Verified 04/02/25 01:26) Diarrhea trimethoprim (From Bactrim) Allergy (Verified 04/02/25 01:26) Diarrhea morphine Adverse Reaction (Intermediate, Verified 04/02/25 01:26) Psychosis baclofen Adverse Reaction (Unknown, Verified 04/02/25 01:26) Unknown chlorthalidone Adverse Reaction (Unknown, Verified 04/02/25:) Unknown codeine Adverse Reaction (Unknown, Verified 04/02/25:) Unknown dextromethorphan Adverse Reaction (Unknown, Verified 04/02/25:) Unknown gabapentin (From Neurontin) Adverse Reaction (Unknown, Verified 04/02/25:) Unknown hydrochlorothiazide Adverse Reaction (Unknown, Verified 04/02/25:) Unknown pregabalin Adverse Reaction (Unknown, Verified 04/02/25:) Dopey IV IV Catheter Type [Right Saline Lock Forearm] IV Catheter Type [Left Forearm Saline Lock ] IV Catheter Gauge [Right 20 Forearm] IV Catheter Gauge [Left 18 Forearm] Diagnostics 05/01/25 05/01/25 04/30/25 Range/Units 01:16 00:28 23:51 WBC (4.4-10.8) 10^3/uL RBC (3.93-5.22) 10^6/uL Hgb (11.2-15.7) g/dL Hct (36.0-46.0) % MCV (80-95) fL MCH (27.0-33.0) pg MCHC (32.0-36.0) % RDW (11.7-14.6) % Plt Count (130-400) 10^3/uL MPV (8.0-11.0) fL Immature Gran % % Neutrophils % % Lymphocytes % % Monocytes % % Eosinophils % % Basophils % % Nucleated RBC % (0.0-0.3) % Absolute Neutrophils (1.2-6.7) 10^3/uL Absolute Lymphocytes (1.2-3.4) 10^3/uL Absolute Monocytes (0.1-0.8) 10^3/uL Absolute Eosinophils (0.0-0.7) 10^3/uL Absolute Basophils (0.0-0.2) 10^3/uL VBG pH (7.31-7.41) VBG pCO2 (41-51) mmHg VBG pO2 mmHg VBG HCO3 (23-28) mmol/L VBG Total CO2 (24-29) mmol/L VBG O2 Saturation % VBG Base Excess (-2-3) mmol/L VBG Lactate (<or=2.0) mmol/L Sodium (136-145) mmol/L Potassium (3.5-5.1) mmol/L Chloride (98-107) mmol/L Carbon Dioxide (20.0-31.0) mmol/L Anion Gap (3-11) mmol/L BUN (9-23) mg/dL Creatinine (0.55-1.02) mg/dL Est GFR (CKD-EPI 2020) (mL/min/1.73m2) Glucose (74-106) mg/dL Calcium (8.3-10.6) mg/dL Total Bilirubin (0.2-1.2) mg/dL AST (<34) U/L ALT (10-49) U/L Alkaline Phosphatase (46-116) U/L Total Protein (5.7-8.2) g/dL Albumin (3.4-5.0) g/dL Procalcitonin ng/mL Urine Color Yellow (Yellow) Urine Clarity Clear (Clear) Urine pH 5.5 (5-8) Ur Specific [place] 1.015 (1.005-1.025) Urine Protein 30 H (Neg-Trace) mg/dL Urine Ketones Trace H (Negative) mg/dL Urine Blood Moderate H (Negative) Urine Nitrite Negative (Negative) Urine Bilirubin Small H (Negative) Urine Urobilinogen 0.2 (Up to 0.2) mg/dL Ur Leukocyte Esterase Negative (Negative) Urine RBC 10-20 H (0-2) HPF Urine WBC 3-5 (0-5) HPF Ur Epithelial Cells Moderate (Negative) HPF Urine Crystals Negative (Negative) HPF Urine Bacteria Moderate (Negative) HPF Urine Casts 0-2 Hyaline (Negative) LPF Urine Mucus Negative (Negative) Ur Culture Indicated? No Urine Glucose Negative (Negative) mg/dL COVID-19 Source Nasopharynx SARS-CoV-2 (PCR) Negative (Negative) Influenza Type A (PCR) Negative (Negative) Influenza Type B (PCR) Negative (Negative) RSV (PCR) Negative (Negative) MRSA (TEM-PCR) Pending 04/30/25 Range/Units 23:32 WBC 9.67 (4.4-10.8) 10^3/uL RBC 3.67 L (3.93-5.22) 10^6/uL Hgb 10.3 L (11.2-15.7) g/dL Hct 31.6 L (36.0-46.0) % MCV 86 (80-95) fL MCH 28.1 (27.0-33.0) pg MCHC 32.6 (32.0-36.0) % RDW 14.2 (11.7-14.6) % Plt Count 268 (130-400) 10^3/uL MPV 9.7 (8.0-11.0) fL Immature Gran % 0.4 % Neutrophils % 91.6 % Lymphocytes % 2.0 % Monocytes % 5.9 % Eosinophils % 0.0 % Basophils % 0.1 % Nucleated RBC % 0.0 (0.0-0.3) % Absolute Neutrophils 8.86 H (1.2-6.7) 10^3/uL Absolute Lymphocytes 0.19 L (1.2-3.4) 10^3/uL Absolute Monocytes 0.57 (0.1-0.8) 10^3/uL Absolute Eosinophils 0.00 (0.0-0.7) 10^3/uL Absolute Basophils 0.01 (0.0-0.2) 10^3/uL VBG pH 7.50 H (7.31-7.41) VBG pCO2 37 L (41-51) mmHg VBG pO2 58 mmHg VBG HCO3 29 H (23-28) mmol/L VBG Total CO2 26 (24-29) mmol/L VBG O2 Saturation 92 % VBG Base Excess 6 H (-2-3) mmol/L VBG Lactate 1.7 (<or=2.0) mmol/L Sodium 148 H (136-145) mmol/L Potassium 3.4 L (3.5-5.1) mmol/L Chloride 112 H (98-107) mmol/L Carbon Dioxide 26.9 (20.0-31.0) mmol/L Anion Gap 9.1 (3-11) mmol/L BUN 26 H (9-23) mg/dL Creatinine 0.5 L (0.55-1.02) mg/dL Est GFR (CKD-EPI 2020) 117.10 (mL/min/1.73m2) Glucose 234 H (74-106) mg/dL Calcium 8.9 (8.3-10.6) mg/dL Total Bilirubin 0.50 (0.2-1.2) mg/dL AST 16 (<34) U/L ALT < 7 L (10-49) U/L Alkaline Phosphatase 66 (46-116) U/L Total Protein 7.3 (5.7-8.2) g/dL Albumin 3.4 (3.4-5.0) g/dL Procalcitonin 0.22 ng/mL Urine Color (Yellow) Urine Clarity (Clear) Urine pH (5-8) Ur Specific [place] (1.005-1.025) Urine Protein (Neg-Trace) mg/dL Urine Ketones (Negative) mg/dL Urine Blood (Negative) Urine Nitrite (Negative) Urine Bilirubin (Negative) Urine Urobilinogen (Up to 0.2) mg/dL Ur Leukocyte Esterase (Negative) Urine RBC (0-2) HPF Urine WBC (0-5) HPF Ur Epithelial Cells (Negative) HPF Urine Crystals (Negative) HPF Urine Bacteria (Negative) HPF Urine Casts (Negative) LPF Urine Mucus (Negative) Ur Culture Indicated? Urine Glucose (Negative) mg/dL COVID-19 Source SARS-CoV-2 (PCR) (Negative) Influenza Type A (PCR) (Negative) Influenza Type B (PCR) (Negative) RSV (PCR) (Negative) MRSA (TEM-PCR) 04/30/25 23:45 Blood Culture - Pending Blood 04/30/25 23:32 Blood Culture - Pending Blood Intake and Output - 24 Hour Total 04/30/25 23:09 thru 05/01/25 01:07 Intake Total 1150 Balance 1150 Weight 49.4 kg Intake: IV 1150 Other: Urine Color Light Chitra Urine Appearance Clear Urinary Catheter Urinary Catheter Date of 05/01/25 Insertion [Urethral (Hawkins)] Time of insertion [Urethral ( 00:15 Hawikns)] Falls Risk Assessment History of Falls No History 04/30/25 23:26 Contributing Factors Confusion,Incontinence 04/30/25 23:26 Ambulatory Aids Uses ambulatory device + 04/30/25 23:26 Tubes/Lines None 04/30/25 23:26 Gait Evaluation W/no contributing factors 04/30/25 23:26 Cognition Cognitive impairment 04/30/25 23:26 Fall Total Score 61 04/30/25 23:26 Level of Risk High Risk 04/30/25 23:26 Problems (Last Reviewed 05/01/25 @ 00:43 by Pedro Archibald) Hypokalemia (Acute) Hypoxemia (Acute) Pneumonia (Acute) Sepsis (Acute) Major depression, recurrent, chronic (Chronic) Dementia (Chronic) Chronic back pain (Chronic) Hypertension (Chronic) Attestation Statement: By documenting the first initial, last name, and credentials of the reporting nurse below, both parties acknowledge that all relevant information regarding the patient handoff has been communicated, and that all questions have been addressed to ensure continuity and safety of care. Additional Patient Information/Comments: Report Received From: Rhoda WHITT at 0200
[2025-05-01 02:33] LABS: MRSA PCR Negative (Negative)
[2025-05-01] MEDS: POTASSIUM CHLORIDE/D5-0.9%NACL 1,000 ML 125 MEQ IV (04:18)
[2025-05-01 07:11] LABS: HCT 26.6 % (36.0-46.0); HGB 8.6 g/dL (11.2-15.7); MCH 28.8 pg (27.0-33.0); MCHC 32.3 % (32.0-36.0); MCV 89 fL (80-95); MPV 9.9 fL (8.0-11.0); Platelet Count 229 10^3/uL (130-400); RBC 2.99 10^6/uL (3.93-5.22); RDW 14.4 % (11.7-14.6); RDW-SD 46.0 fL; WBC 12.58 10^3/uL (4.4-10.8)
[2025-05-01 07:29] LABS: Magnesium 1.6 mg/dL (1.6-2.6)
[2025-05-01 07:37] LABS: AST 13 U/L (<34); Albumin 2.8 g/dL (3.4-5.0); Alkaline Phosphatase 52 U/L (46-116); Anion Gap 10.4 mmol/L (3-11); BUN 23 mg/dL (9-23); Bilirubin, Total 0.60 mg/dL (0.2-1.2); CO2 26.6 mmol/L (20.0-31.0); Calcium 8.3 mg/dL (8.3-10.6); Chloride 116 mmol/L (98-107); Glucose 170 mg/dL (74-106); Potassium 3.7 mmol/L (3.5-5.1); Sodium 153 mmol/L (136-145); Total Protein 6.0 g/dL (5.7-8.2)
[2025-05-01 07:42] LABS: ALT < 7 U/L (10-49)
[2025-05-01 07:49] LABS: BE (Venous) 1 mmol/L (-2-3); HCO3 (Venous) 27 mmol/L (23-28); O2 Sat (Venous) 72 %; TCO2 (Venous) 25 mmol/L (24-29); pCO2 (Venous) 46 mmHg (41-51); pO2 (Venous) 39 mmHg
--- NOTE | 2025-05-01 07:53 | PDOC.CMIN ---
Date of service: 05/01/25 Time of Service: 07:53 Care Management Initial Assmt Initial Assessment Reason for Hospitalization: sepsis, pneumonia Functional Status/Living Situation Patient Presentation: Tegan presented to the ED early this morning with respiratory symptoms and fever. She was admitted for IV antibiotics and IVF. Tegan has been sleeping most of the day. She did not rouse to her name or to light touch x 2 attempts. Tegan has not been out of bed today, and is NPO. Tegan is well known to this , and the information in this note was gathered from past interactions. Town of Residence: [facility] Resides with: Other (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) Instrumental Activities of Daily Living (ADLs): Requires support Physical Functioning/Mobility Assistive Device: wheelchair Advance Directives Advance Directives: Do you have an Advance Directive: Y 11/06/12, 18:01 AD On File at [facility]: Y 09/16/20, 21:57 Date Asked 05/01/25 Today, 08:10 AD Date Reviewed 05/01/25 Today, 08:10 COLST On File at [facility] Yes 08/19/24, 09:20 COLST Date Scanned 05/06/24 08/19/24, 09:20 Comment: Daughter Renetta Corrigan is HCA Code Status Resuscitation Status DNR/DNI Insurance Coverage/Financial Issues Insurance: Medicare Part A & B - Medicaid of [place] Care Team Visit Care Team Role Provider Type Danny Maldonado Primary Care Provider NON-[facility] STAFF PHYSICIAN Ca Srinivasan RDN, CDCES Other Providers SHERIFF[employer] SERGEANT Neli Gary RDN Other Providers SHERIFF[employer] SERGEANT Los Carter DO Emergency Provider [facility] STAFF PHYSICIAN Pedro Archibald Admit Provider NON-[facility] STAFF PHYSICIAN Attending Provider Discharge Potential Discharge Needs: Other ([facility] provider follow up) Anticipated Barriers to Discharge: None Identified Patient/Family Education Needs: Review discharge instructions, discuss Ask Me Three Transportation: EMS Plan: Tegan will return to [facility] once she is medically stable. She will transport via EMS and continue per her plan of care. CM will continue to follow and update the plan as needed. Social Determinants of Health Screening Social Determinants of health last assessed in clinic: 05/01/25 Will the Patient Participate in the Screening?: Yes Do you worry about having a steady place to live?: no Problems where you live: no known problems In the past 12 months, have you had to go without electric, gas, oil or water in your home?: no 1. Within the past 12 months, we worried whether our food would run out before we got money to buy more.: Don't know/refused 2. Within the past 12 months, the food we bought just didn't last and we didn't have money to get more.: Don't know/refused Has lack of transportation kept you from medical appointments or from doing things needed for daily living?: no Has anyone in your life made you feel unsafe or unsupported?: choose not to answer How hard is it for you to pay for the very basics like food, housing, medical care, and heating? Would you say it is:: Not hard at all Do you want help finding or keeping work or a job?: I do not need or want help If for any reason you need help with day-to-day activities such as bathing, preparing meals, shopping, managing finances, etc., do you get the help you need?: I don’t need any help How often do you feel lonely or isolated from those around you?: Never Do you speak a language other than Iranian at home?: No PFSH All Active Problems (Updated 05/01/25 @ 08:17 by Pedro Archibald) Diabetes mellitus (Chronic) Hypokalemia (Acute) Hypoxemia (Acute) Pneumonia (Acute) Sepsis (Acute) Difficulty swallowing (Acute) AMS (altered mental status) (Acute) Acute dehydration (Acute) Major depression, recurrent, chronic (Chronic) Aspiration into airway (Acute) Palliative care patient (Acute) ACP (advance care planning) (Acute) DNR (do not resuscitate) (Acute) Delusions (Acute) Dementia (Chronic) Bladder mass (Acute) Chronic back pain (Chronic) Cystic mass of pancreas (Acute) Abnormal finding on CT scan (Acute) [place] coma scale score 3-8, at arrival to emergency department (Acute) Altered mental status (Acute) Encephalopathy (Acute) Acute UTI (Acute) Altered mental status (Acute) Failure to thrive in adult (Acute) Weakness (Acute) Falls frequently (Acute) Trouble talking (Acute) Acute UTI (Acute) Acute kidney injury superimposed on CKD (Acute) Lives in group home (Acute) Deficit in activities of daily living (ADL) (Acute) Closed fracture of distal end of radius (Acute) Closed fracture of left distal radius (Acute) Closed fracture of right distal radius (Acute) Heart murmur (Acute) Depression (Chronic) At high risk for skin breakdown (Acute) Periorbital edema (Acute) Hiatal hernia (Chronic) moderate Coronary artery calcification seen on CAT scan (Acute) Diverticula of colon (Acute) DJD (degenerative joint disease), lumbar (Acute) History of CVA (cerebrovascular accident) (Acute) remote Fracture of both wrists (Acute) Goiter (Acute) Fibromyalgia (Chronic) Chronic pain (Chronic) Movement disorder (Acute) Chronic renal insufficiency, stage III (moderate) (Acute) Hypertension (Chronic) Medical History KWAME (obstructive sleep apnea) Anemia Low magnesium level UTI (urinary tract infection) Encephalopathy Seizure Psychiatric symptoms Ambulatory dysfunction AMS (altered mental status) Rhabdomyolysis Fall Primary osteoarthritis of left knee We will see the patient back in 4-1/2 months for possible repeat Synvisc 1 in her left knee would consider x-ray in her right knee if she is still significantly symptomatic Osteoarthritis of right knee Steroid injection: 04/05/2020 Has had previous viscosupplementation injections. 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) As treatment for a femoral neck fracture (DOI: 09/16/2020) History of back surgery Hx of cholecystectomy Social History Smoking/Tobacco Use Status: Never Smoking risk assessment performed?: Yes Alcohol Intake: never Drug use: Never Substance use type: does not use Housing: assisted living facility Do you feel safe at home: Yes Do you feel safe in your relationship?: Yes Additional Social history: health and rehab Readmission Within the Past 30 Days Yes or No: Yes Date of First Admission Date of 1st Admission: 04/01/25 Date of this Admission Date of Admission: 05/01/25 This admission was: Through ED Office Visit Since 1st Admission Have you seen your PCP in the office since discharge?: Yes I. Interview patient and/or Family Difficulty reaching your doctor or getting an office appt?: No If the patient came from Ext. Facility Call the Facility to discuss the patient's admission: Tegan is in poor health chronically ED visits How many ED visits in the past 12 months: 10 Assessment for Readmission Summary of readmission circumstances, based upon interviews: Tegan is in chronically poor health
[2025-05-01 07:59] LABS: TSH (W/Ref FT4) 0.48 uIU/mL (0.55-4.78)
[2025-05-01 08:08] LABS: Ammonia 15 umol/L (11-32)
[2025-05-01] MEDS: Enoxaparin 40 MG/0.4 ML SYR SC (10:28)
[2025-05-01] MEDS: Normal Saline Flush 10 ML SYR IVP ×2 (10:28→22:04)
[2025-05-01] MEDS: SODIUM CHLORIDE 0.45% 1,000 ML 125 ML IV ×2 (13:31→22:17)
[2025-05-01 13:40] LABS: Anion Gap 7.8 mmol/L (3-11); BUN 21 mg/dL (9-23); CO2 26.2 mmol/L (20.0-31.0); Calcium 8.6 mg/dL (8.3-10.6); Chloride 119 mmol/L (98-107); Glucose 146 mg/dL (74-106); Potassium 3.7 mmol/L (3.5-5.1); Sodium 153 mmol/L (136-145)
[2025-05-01] MEDS: levETIRAcetam 500 MG in Normal Saline 100 ML 400 MG IVPB (13:50)
[2025-05-01] MEDS: VANCOMYCIN/WATER (PEG) 1.5 GM/300 ML BAG IVPB (14:00)
--- NOTE | 2025-05-01 15:12 | PCNE_ITS ---
Date of service: 05/01/25 Time of Service: 15:12 History of Present Illness Narrative: Tegan is a Palliative patient, known to Dr. Adkins, who saw her the day prior to her presentation at the ED. She was seen at [facility] where she has been a resident since August 2024. She was admitted overnight for sepsis r/t PNA. She has been seen in the ED 10 times this year/over the last 8 months. This is her 7th admission to the hospital over the last 8 months. During their visit, the option of hospice was discussed. Dr. Adkins made the recommendation that if she has an acute event, palliative should be consulted, thus Palliative was consulted on this admission. In Dr. Adkins's note, her daughter/HCA, Renetta states that she believes her mother would want treatment if she had UTI/PNA however, if she had MN or CVA, she would likely want to transition to hospice. Attempted to call Renetta and left message on vm. Tegan appears to be declining overall based on the note from Dr. Adkins as well as the multiple hospitalizations/ED visits. It would be reasonable to see how she does with the current treatment and revisit in a couple days with her HCA. She has previously established that she is a DNR/DNI. Tegan did not awaken to engage in the visit and per staff she does not at baseline. Assessment and Plan Assessment and plan (1) Sepsis: Start date: 05/01/25 Status: Acute Assessment and plan: Secondary to PNA. (2) Pneumonia: Start date: 05/01/25 Status: Acute Assessment and plan: Left lower lobe and recent hospitalization therefore she is being treated as hospital-acquired pneumonia with Zosyn, vancomycin and Zithromax. (3) Hypoxemia: Start date: 05/01/25 Status: Acute (4) Encephalopathy: (5) Hypokalemia: Start date: 05/01/25 Status: Acute (6) Dementia: Status: Chronic (7) KWAME (obstructive sleep apnea): (8) Hypertension: Status: Chronic (9) CVA (cerebral vascular accident): Assessment and plan: Hx of CVA (10) Diabetes mellitus: Status: Chronic Assessment and plan: Patient is not on medical therapy at the care home and did have CKD in the past which improved. (11) Chronic back pain: Status: Chronic Assessment and plan: On oxycodone for back pain. (12) Major depression, recurrent, chronic: Status: Chronic (13) Palliative care patient: Status: Acute Assessment and plan: Tegan will likely need closer f/u that previously planned due to hospitalization. She may benefit from f/u early next week depending on how she does with the current treatment. Palliative office notified. (14) ACP (advance care planning): Status: Acute Assessment and plan: She is a DNR/DNI with COLST on file. Her daughter, Renetta is HCA. I was unable to reach Renetta via phone, message left. See above. Review of Systems Narrative: Unable PFSH All Active Problems Diabetes mellitus (Chronic) Hypokalemia (Acute) Hypoxemia (Acute) Pneumonia (Acute) Sepsis (Acute) Difficulty swallowing (Acute) AMS (altered mental status) (Acute) Acute dehydration (Acute) Major depression, recurrent, chronic (Chronic) Aspiration into airway (Acute) Palliative care patient (Acute) ACP (advance care planning) (Acute) DNR (do not resuscitate) (Acute) Delusions (Acute) Dementia (Chronic) Bladder mass (Acute) Chronic back pain (Chronic) Cystic mass of pancreas (Acute) Abnormal finding on CT scan (Acute) [place] coma scale score 3-8, at arrival to emergency department (Acute) Altered mental status (Acute) Encephalopathy (Acute) Acute UTI (Acute) Altered mental status (Acute) Failure to thrive in adult (Acute) Weakness (Acute) Falls frequently (Acute) Trouble talking (Acute) Acute UTI (Acute) Acute kidney injury superimposed on CKD (Acute) Lives in care home (Acute) Deficit in activities of daily living (ADL) (Acute) Closed fracture of distal end of radius (Acute) Closed fracture of left distal radius (Acute) Closed fracture of right distal radius (Acute) Heart murmur (Acute) Depression (Chronic) At high risk for skin breakdown (Acute) Periorbital edema (Acute) Hiatal hernia (Chronic) moderate Coronary artery calcification seen on CAT scan (Acute) Diverticula of colon (Acute) DJD (degenerative joint disease), lumbar (Acute) History of CVA (cerebrovascular accident) (Acute) remote Fracture of both wrists (Acute) Goiter (Acute) Fibromyalgia (Chronic) Chronic pain (Chronic) Movement disorder (Acute) Chronic renal insufficiency, stage III (moderate) (Acute) Hypertension (Chronic) Medical History KWAME (obstructive sleep apnea) Anemia Low magnesium level UTI (urinary tract infection) Encephalopathy Seizure Psychiatric symptoms Ambulatory dysfunction AMS (altered mental status) Rhabdomyolysis Fall Primary osteoarthritis of left knee We will see the patient back in 4-1/2 months for possible repeat Synvisc 1 in her left knee would consider x-ray in her right knee if she is still significantly symptomatic Osteoarthritis of right knee Steroid injection: 04/05/2020 Has had previous viscosupplementation injections. 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) As treatment for a femoral neck fracture (DOI: 09/16/2020) History of back surgery Hx of cholecystectomy Social History Smoking/Tobacco Use Status: Never Smoking risk assessment performed?: Yes Alcohol Intake: never Drug use: Never Substance use type: does not use Housing: assisted living facility Do you feel safe at home: Yes Do you feel safe in your relationship?: Yes Additional Social history: health and rehab Exam Narrative Exam Narrative: General: older female, lying in bed, sleeping, did not awaken to verbal or gentle tactile stimuli. She does not appear to be in distress. HEENT: normocephalic, atraumatic, EOMI, mmm Respiratory: respirations appear even and unalbored, does not appear to be in distress. Results Last Vital Signs Temp 36.6 C 05/01/25 11:33 Pulse 59 L 05/01/25 11:33 Resp 16 05/01/25 11:33 BP 117/41 L 05/01/25 11:33 Pulse Ox 94 05/01/25 11:33 Labs 05/01/25 06:33 05/01/25 13:02 Labs: Laboratory Results - last 24 hr 04/30/25 04/30/25 05/01/25 23:32 23:51 00:28 WBC 9.67 RBC 3.67 L Hgb 10.3 L Hct 31.6 L MCV 86 MCH 28.1 MCHC 32.6 RDW 14.2 Plt Count 268 MPV 9.7 Immature Gran % 0.4 Neutrophils % 91.6 Lymphocytes % 2.0 Monocytes % 5.9 Eosinophils % 0.0 Basophils % 0.1 Nucleated RBC % 0.0 Absolute Neutrophils 8.86 H Absolute Lymphocytes 0.19 L Absolute Monocytes 0.57 Absolute Eosinophils 0.00 Absolute Basophils 0.01 VBG pH 7.50 H VBG pCO2 37 L VBG pO2 58 VBG HCO3 29 H VBG Total CO2 26 VBG O2 Saturation 92 VBG Base Excess 6 H VBG Lactate 1.7 Sodium 148 H Potassium 3.4 L Chloride 112 H Carbon Dioxide 26.9 Anion Gap 9.1 BUN 26 H Creatinine 0.5 L Est GFR (CKD-EPI 2020) 117.10 Glucose 234 H Calcium 8.9 Magnesium Total Bilirubin 0.50 AST 16 ALT < 7 L Alkaline Phosphatase 66 Ammonia Total Protein 7.3 Albumin 3.4 Procalcitonin 0.22 TSH Free T4 Urine Color Yellow Urine Clarity Clear Urine pH 5.5 Ur Specific [place] 1.015 Urine Protein 30 H Urine Ketones Trace H Urine Blood Moderate H Urine Nitrite Negative Urine Bilirubin Small H Urine Urobilinogen 0.2 Ur Leukocyte Esterase Negative Urine RBC 10-20 H Urine WBC 3-5 Ur Epithelial Cells Moderate Urine Crystals Negative Urine Bacteria Moderate Urine Casts 0-2 Hyaline Urine Mucus Negative Ur Culture Indicated? No Urine Glucose Negative COVID-19 Source Nasopharynx SARS-CoV-2 (PCR) Negative Influenza Type A (PCR) Negative Influenza Type B (PCR) Negative RSV (PCR) Negative MRSA (TEM-PCR) 05/01/25 05/01/25 05/01/25 01:16 06:33 07:40 WBC 12.58 H RBC 2.99 L Hgb 8.6 L Hct 26.6 L MCV 89 MCH 28.8 MCHC 32.3 RDW 14.4 Plt Count 229 MPV 9.9 Immature Gran % Neutrophils % Lymphocytes % Monocytes % Eosinophils % Basophils % Nucleated RBC % Absolute Neutrophils Absolute Lymphocytes Absolute Monocytes Absolute Eosinophils Absolute Basophils VBG pH 7.37 VBG pCO2 46 VBG pO2 39 VBG HCO3 27 VBG Total CO2 25 VBG O2 Saturation 72 VBG Base Excess 1 VBG Lactate 2.1 Sodium 153 H Potassium 3.7 Chloride 116 H Carbon Dioxide 26.6 Anion Gap 10.4 BUN 23 Creatinine 0.5 L Est GFR (CKD-EPI 2020) 109.63 Glucose 170 H Calcium 8.3 Magnesium 1.6 Total Bilirubin 0.60 AST 13 ALT < 7 L Alkaline Phosphatase 52 Ammonia 15 Total Protein 6.0 Albumin 2.8 L Procalcitonin TSH 0.48 L Free T4 1.02 Urine Color Urine Clarity Urine pH Ur Specific [place] Urine Protein Urine Ketones Urine Blood Urine Nitrite Urine Bilirubin Urine Urobilinogen Ur Leukocyte Esterase Urine RBC Urine WBC Ur Epithelial Cells Urine Crystals Urine Bacteria Urine Casts Urine Mucus Ur Culture Indicated? Urine Glucose COVID-19 Source SARS-CoV-2 (PCR) Influenza Type A (PCR) Influenza Type B (PCR) RSV (PCR) MRSA (TEM-PCR) Negative 05/01/25 05/01/25 13:02 Unknown WBC RBC Hgb Hct MCV MCH MCHC RDW Plt Count MPV Immature Gran % Neutrophils % Lymphocytes % Monocytes % Eosinophils % Basophils % Nucleated RBC % Absolute Neutrophils Absolute Lymphocytes Absolute Monocytes Absolute Eosinophils Absolute Basophils VBG pH VBG pCO2 VBG pO2 VBG HCO3 VBG Total CO2 VBG O2 Saturation VBG Base Excess VBG Lactate 2.5 H* Cancelled Sodium 153 H Potassium 3.7 Chloride 119 H Carbon Dioxide 26.2 Anion Gap 7.8 BUN 21 Creatinine 0.5 L Est GFR (CKD-EPI 2020) 112.02 Glucose 146 H Calcium 8.6 Magnesium Total Bilirubin AST ALT Alkaline Phosphatase Ammonia Total Protein Albumin Procalcitonin TSH Free T4 Urine Color Urine Clarity Urine pH Ur Specific [place] Urine Protein Urine Ketones Urine Blood Urine Nitrite Urine Bilirubin Urine Urobilinogen Ur Leukocyte Esterase Urine RBC Urine WBC Ur Epithelial Cells Urine Crystals Urine Bacteria Urine Casts Urine Mucus Ur Culture Indicated? Urine Glucose COVID-19 Source SARS-CoV-2 (PCR) Influenza Type A (PCR) Influenza Type B (PCR) RSV (PCR) MRSA (TEM-PCR) Time Spent Time Spent with Patient Time Spent(min): 65
[2025-05-01 17:03] LABS: MRSA PCR Negative (Negative)
[2025-05-01] MEDS: Normal Saline 1,000 ML 500 ML IV (21:19)
[2025-05-01 22:27] LABS: Vancomycin, Random 24.1 ug/mL
[2025-05-01] MEDS: Water,Injection,Sterile 10 ML VIAL (23:50)
[2025-05-02] MEDS: PIPERACILLIN/TAZO 3.375 GM in Normal Saline 50 ML IVPB ×5 (01:11→23:55)
[2025-05-02] MEDS: levETIRAcetam 500 MG in Normal Saline 100 ML 400 MG IVPB ×2 (02:22→14:30)
[2025-05-02] MEDS: DEXTROSE 5%-0.45% SALINE 1,000 ML 75 ML IV ×2 (03:04→20:22)
[2025-05-02 04:42] VITALS: BP 142/63; PULSE 69; RESP 16; TEMP 37.4; O2SAT 95
[2025-05-02 06:57] LABS: HCT 25.6 % (36.0-46.0); MCH 27.9 pg (27.0-33.0); MCHC 32.4 % (32.0-36.0); MCV 86 fL (80-95); MPV 10.3 fL (8.0-11.0); Platelet Count 215 10^3/uL (130-400); RBC 2.98 10^6/uL (3.93-5.22); RDW 15.0 % (11.7-14.6); RDW-SD 46.9 fL; WBC 11.45 10^3/uL (4.4-10.8)
[2025-05-02 07:22] VITALS: BP 124/63; PULSE 71; RESP 16; TEMP 36.6; O2SAT 97
[2025-05-02 07:23] LABS: Magnesium 1.4 mg/dL (1.6-2.6)
[2025-05-02 07:25] LABS: HGB 8.3 g/dL (11.2-15.7)
[2025-05-02 07:34] LABS: AST 14 U/L (<34); Albumin 2.7 g/dL (3.4-5.0); Alkaline Phosphatase 53 U/L (46-116); Anion Gap 11.5 mmol/L (3-11); BUN 16 mg/dL (9-23); Bilirubin, Total 0.60 mg/dL (0.2-1.2); CO2 21.5 mmol/L (20.0-31.0); Calcium 8.0 mg/dL (8.3-10.6); Chloride 117 mmol/L (98-107); Glucose 97 mg/dL (74-106); Potassium 2.9 mmol/L (3.5-5.1); Sodium 150 mmol/L (136-145); Total Protein 5.9 g/dL (5.7-8.2)
[2025-05-02 07:35] LABS: ALT < 7 U/L (10-49)
[2025-05-02] MEDS: POTASSIUM CHLORIDE 20 MEQ/100 ML BAG 50 MEQ IV_INF (09:17)
[2025-05-02] MEDS: MAGNESIUM SULFATE 2 GM/50 ML BAG IV_INF (09:17)
[2025-05-02] MEDS: Normal Saline Flush 10 ML SYR IVP ×5 (09:18→20:22)
[2025-05-02] MEDS: Enoxaparin 40 MG/0.4 ML SYR SC (09:18)
[2025-05-02 11:43] VITALS: BP 143/78; PULSE 64; RESP 16; TEMP 36.7; O2SAT 94
[2025-05-02] MEDS: Potassium Chloride 20 MEQ TABCR 40 MEQ PO ×2 (14:30→20:23)
[2025-05-02 15:54] VITALS: BP 144/76; PULSE 74; RESP 16; TEMP 36.6; O2SAT 98
--- NOTE | 2025-05-02 16:51 | PGE_ITS ---
Date of Service Date of service: 05/02/25 Time of Service: 16:51 Assessment and Plan Assessment and plan (1) Sepsis: Status: Acute Assessment and plan: Improving today, awake, more alert. No fevers Urine output is slight - bolus 500 ml - continue D51/2 NS (2) Pneumonia: Start date: 05/01/25 Status: Acute Assessment and plan: Left lower lobe and recent hospitalization therefore we will treat as hospital- acquired pneumonia with Zosyn and Zithromax (changed to oral). Stop vanco MRSA nare neg (3) Hypokalemia: Start date: 05/01/25 Status: Acute Assessment and plan: Repleted with IV K Check daily (4) Dementia: Status: Chronic Assessment and plan: Vascular dementia with some behavioral abnormality when the patient is awake. Is also closer with her depression. He also has a seizure disorder which may be secondary to her previous CVA. Continue outpatient medical therapy as patient allows when she awakens. (5) Hypertension: Status: Chronic Assessment and plan: Continue outpatient medical therapy with monitoring. (6) Diabetes mellitus: Status: Chronic Assessment and plan: Sliding scale achs (7) Chronic back pain: Status: Chronic Assessment and plan: pain mgt (8) Major depression, recurrent, chronic: Status: Chronic Assessment and plan: Lorazepam prn (9) Hypoxemia: Start date: 05/01/25 Status: Resolved Assessment and plan: No O2 requirement Subjective Subjective Patient reports: no new complaints, tolerating liquids well, tolerating a regular diet, bowel movement and afebrile; denies flatus, diarrhea or nausea Interval history since last seen: Awake, and more alert today. Eating Exam Narrative Exam Narrative: General: Awake verbal but nonsensical, frail Neuro: Moves all extremities; left-sided weakness > right; not following commands Lungs: Clear to auscultation Heart: Regular rate and rhythm Abdomen: Soft, nondistended, non-tender Skin: Warm, pale Psych Mental Status: other Speech and Movement: slowed movement Mood: other Affect: blunted Objective Last Vital Signs Temp 36.6 C 05/02/25 15:54 Pulse 74 05/02/25 15:54 Resp 16 05/02/25 15:54 BP 144/76 H 05/02/25 15:54 Pulse Ox 98 05/02/25 15:54 Laboratory Results - last 24 hr 05/01/25 05/01/25 05/02/25 15:00 21:52 06:36 WBC 11.45 H RBC 2.98 L Hgb 8.3 L Hct 25.6 L MCV 86 MCH 27.9 MCHC 32.4 RDW 15.0 H Plt Count 215 MPV 10.3 Sodium 150 H Potassium 2.9 L Chloride 117 H Carbon Dioxide 21.5 Anion Gap 11.5 H BUN 16 Creatinine 0.5 L Est GFR (CKD-EPI 2020) 117.10 Glucose 97 Calcium 8.0 L Magnesium 1.4 L Total Bilirubin 0.60 AST 14 ALT < 7 L Alkaline Phosphatase 53 Total Protein 5.9 Albumin 2.7 L Random Vancomycin 24.1 MRSA (TEM-PCR) Negative Time Spent with Patient Time Spent with Patient: 25-34 minutes Time was spent: preparing to see the patient(eg.review tests), ordering medications,tests, procedures, referring, communicating with other health career guidance technician, indepentently interpreting results, counseling the patient and care coordination
[2025-05-02] MEDS: Normal Saline 500 ML IV (18:46)
[2025-05-02 20:01] VITALS: BP 128/72; PULSE 65; RESP 16; TEMP 36.6; O2SAT 98
[2025-05-02] MEDS: Azithromycin 250 MG TAB 500 MG PO (20:23)
[2025-05-02] MEDS: Melatonin 3 MG TAB 6 MG PO (22:43)
[2025-05-02 23:31] VITALS: BP 130/81; PULSE 71; RESP 16; TEMP 37; O2SAT 96
[2025-05-03] VITALS (7 sets, daily range): BP systolic 116–159; BP diastolic 59–85; PULSE 51–80; RESP 16–18; TEMP 36.1–36.9; O2SAT 96–98
[2025-05-03] MEDS: levETIRAcetam 500 MG in Normal Saline 100 ML 400 MG IVPB ×2 (02:15→14:11)
[2025-05-03] MEDS: PIPERACILLIN/TAZO 3.375 GM in Normal Saline 50 ML IVPB ×2 (05:45→12:26)
[2025-05-03] MEDS: Normal Saline Flush 10 ML SYR IVP ×3 (05:46→20:33)
[2025-05-03] MEDS: DEXTROSE 5%-0.45% SALINE 1,000 ML 75 ML IV (08:48)
[2025-05-03] MEDS: Enoxaparin 40 MG/0.4 ML SYR SC (08:49)
[2025-05-03 12:23] LABS: HCT 25.6 % (36.0-46.0); HGB 8.4 g/dL (11.2-15.7); MCH 27.9 pg (27.0-33.0); MCHC 32.8 % (32.0-36.0); MCV 85 fL (80-95); MPV 10.1 fL (8.0-11.0); Platelet Count 227 10^3/uL (130-400); RBC 3.01 10^6/uL (3.93-5.22); RDW-SD 46.8 fL; WBC 6.07 10^3/uL (4.4-10.8)
[2025-05-03 12:52] LABS: RDW 15.1 % (11.7-14.6)
[2025-05-03 13:04] LABS: Magnesium 1.6 mg/dL (1.6-2.6)
[2025-05-03 13:12] LABS: AST 11 U/L (<34); Albumin 2.5 g/dL (3.4-5.0); Alkaline Phosphatase 52 U/L (46-116); Anion Gap 9.2 mmol/L (3-11); BUN 11 mg/dL (9-23); Bilirubin, Total 0.50 mg/dL (0.2-1.2); CO2 19.8 mmol/L (20.0-31.0); Calcium 7.8 mg/dL (8.3-10.6); Chloride 115 mmol/L (98-107); Glucose 113 mg/dL (74-106); Potassium 3.4 mmol/L (3.5-5.1); Sodium 144 mmol/L (136-145); Total Protein 5.6 g/dL (5.7-8.2)
[2025-05-03 13:16] LABS: ALT < 7 U/L (10-49)
[2025-05-03] MEDS: Potassium Chloride Liquid 20 MEQ PKT 40 MEQ PO (14:10)
--- NOTE | 2025-05-03 14:50 | W.PM.PROGNOT ---
Date of Service Date of service: 05/03/25 Time of Service: 14:50 Assessment and Plan Assessment and plan (1) Sepsis: Status: Acute Assessment and plan: Improving today, awake, more alert. No fevers Urine output improved, will re bolus 500 ml - glucose 113; Cr 0.5 Sodium 144 discontinue D51/2 NS (2) Pneumonia: Start date: 05/01/25 Status: Acute Assessment and plan: Left lower lobe and recent hospitalization therefore we will treat as hospital-acquired pneumonia with Zosyn and Zithromax (changed to oral). Stop vanco MRSA nare neg Change Zosyn to Augmentin (3) Hypokalemia: Start date: 05/01/25 Status: Acute Assessment and plan: 3.4 - repleted with oral potassium Check daily (4) Dementia: Status: Chronic Assessment and plan: Vascular dementia with some behavioral abnormality when the patient is awake. Is also closer with her depression. He also has a seizure disorder which may be secondary to her previous CVA. Continue outpatient medical therapy as patient allows when she awakens. (5) Hypertension: Status: Chronic Assessment and plan: Continue outpatient medical therapy with monitoring. 130/60 (6) Diabetes mellitus: Status: Chronic Assessment and plan: Sliding scale achs glucose 113 (7) Chronic back pain: Status: Chronic Assessment and plan: pain mgt (8) Major depression, recurrent, chronic: Status: Chronic Assessment and plan: Lorazepam prn (9) Hypoxemia: Start date: 05/01/25 Status: Resolved Assessment and plan: No O2 requirement Subjective Subjective Patient reports: no new complaints, tolerating liquids well, tolerating a regular diet, flatus, bowel movement and afebrile; denies diarrhea, nausea or vomiting Interval history since last seen: Awake, alert, originally refused labs, when attempted again this afternoon, patient was agreeable. Exam Narrative Exam Narrative: General: Awake verbal but nonsensical, frail Neuro: Moves all extremities; left-sided weakness > right; not following commands Lungs: Clear to auscultation Heart: Regular rate and rhythm Abdomen: Soft, nondistended, non-tender Skin: Warm, pale Psych Mental Status: other Speech and Movement: slowed movement Mood: other Affect: blunted Objective Last Vital Signs Temp 36.8 C 05/03/25 14:29 Pulse 54 L 05/03/25 14:29 Resp 16 05/03/25 14:29 BP 130/60 05/03/25 14:29 Pulse Ox 97 05/03/25 14:29 Laboratory Results - last 24 hr 05/03/25 12:15 WBC 6.07 RBC 3.01 L Hgb 8.4 L Hct 25.6 L MCV 85 MCH 27.9 MCHC 32.8 RDW 15.1 H Plt Count 227 MPV 10.1 Sodium 144 Potassium 3.4 L Chloride 115 H Carbon Dioxide 19.8 L Anion Gap 9.2 BUN 11 Creatinine 0.5 L Est GFR (CKD-EPI 2020) 131.91 Glucose 113 H Calcium 7.8 L Magnesium 1.6 Total Bilirubin 0.50 AST 11 ALT < 7 L Alkaline Phosphatase 52 Total Protein 5.6 L Albumin 2.5 L Time Spent with Patient Time Spent with Patient: 25-34 minutes Time was spent: preparing to see the patient(eg.review tests), ordering medications,tests, procedures, referring, communicating with other health healthcare science specialist, indepentently interpreting results, counseling the patient and care coordination
[2025-05-03] MEDS: Normal Saline 1,000 ML 500 ML IV (15:41)
[2025-05-03] MEDS: Azithromycin 250 MG TAB 500 MG PO (20:31)
[2025-05-03] MEDS: Atorvastatin 20 MG TAB PO (20:31)
[2025-05-03] MEDS: risperiDONE 1 MG TAB PO (20:32)
[2025-05-03] MEDS: Amoxicillin 875/Clav. 125 TAB PO (20:32)
[2025-05-03] MEDS: Mirtazapine 15 MG TAB PO (20:34)
[2025-05-03] MEDS: Melatonin 3 MG TAB 6 MG PO (22:21)
[2025-05-03] MEDS: oxyCODONE 5 MG TAB PO (22:21)
[2025-05-04 03:14] VITALS: BP 134/73; PULSE 54; RESP 20; TEMP 36; O2SAT 94
[2025-05-04] MEDS: levETIRAcetam 500 MG in Normal Saline 100 ML 400 MG IVPB (03:48)
[2025-05-04 07:34] VITALS: BP 122/65; PULSE 54; RESP 16; TEMP 36.6; O2SAT 94
--- NOTE | 2025-05-04 08:25 | PDOC.CMDIS ---
Date of service: 05/04/25 Time of Service: 08:25 LACE Index Scoring Tool Questions: Length of Stay (in days): 3 Was the patient admitted via the E.D.?: Yes Comorbidities: Cerebrovascular Disease, Diabetes w/o Complication and Liver or Renal Disease E.D. Visits: 7 Answers: Total Score: 15 Risk of Readmission: High Risk Care Management Discharge Plan Reason for Hospitalization: Sepsis, pneumonia Discharge Plan: Tegan is discharged back to the [facility] today. She will f/u with the facility provider and continue per her plan of care. Tegan will transport via EMS. Patient/Family Education Needs: Review of discharge instructions, activity, limitations and discuss Ask me 3. SDOH Health Related Social Needs: Health related social needs material hardship Health related social needs details pt. non verbal
[2025-05-04] MEDS: Potassium Chloride Liquid 20 MEQ PKT 40 MEQ PO (08:38)
[2025-05-04] MEDS: Amoxicillin 875/Clav. 125 TAB PO (08:43)
[2025-05-04] MEDS: Normal Saline Flush 10 ML SYR IVP (08:43)
--- NOTE | 2025-05-04 10:25 | W.NUTRFU ---
Date of service: 05/04/25 Time of Service: 10:26 Nutrition Note NOTE: Tegan resides in assisted living facility next door at baseline. Being treated for PNA-sepsis with low potassium (repleted and up to 3.4 yesterday) Calcium low yesterday at 7.8 - did have borderline vitamin D deficiency last August and not on home med list - would consider retesting and supplementing appropriately. fair intake on low sodium diet with puree solids and mod thick fluids. Will make tray a nurse-pass tray as to allow for thickening of liquids brought up. Pt with good glucose numbers and managed this admission with mod sliding scale insulin aspart at meals and HS. Weight looking stable. Will offer glucose control boost as desired/needed. No aggressive nutrition intervention planned at this time. will monitor po intake, weight, diet consistency toleration. Time Spent in Nutritional Counseling and Treatment: 5 min
[2025-05-04 11:25] VITALS: BP 148/85; PULSE 58; RESP 16; TEMP 36.6; O2SAT 100
--- NOTE | 2025-05-04 11:41 | DSE_ITS ---
Date of service: 05/04/25 Time of Service: 11:41 DS: Diagnosis Discharge Diagnosis (1) Sepsis: Status: Acute (2) Pneumonia: Status: Acute (3) Hypokalemia: Status: Acute (4) Dementia: Status: Chronic (5) Hypertension: Status: Chronic (6) Diabetes mellitus: Status: Chronic (7) Chronic back pain: Status: Chronic (8) Major depression, recurrent, chronic: Status: Chronic (9) Hypoxemia: Status: Resolved Discharge Plan Disposition Patient Disposition: Assisted Facility(SNF) Condition: Fair Discharge Details Reason For Visit: Left Lower Lobe Pneumonia with Hypoxia, Sepsis Admit Date/Time: 05/01/25 01:00 Admit Provider: Pedro Archibald Attending Provider: Pedro Archibald Primary Care Provider: Danny Maldonado Hospital Course Hospital Course: Came to ED 05/01/25 with Fever with altered mental status in the context of recurrent infections and cognitive decline. 74-year-old female with a 7-month history of progressive cognitive decline, presenting from an assisted living facility with fever and encephalopathy. She has a history of recent hospitalization for pneumonia and altered mental status. In the ED, she was minimally responsive (GCS 6), requiring oxygen, and found to have left lower lobe pneumonia. She met sepsis criteria but was hemodynamically stable without shock. Patient has recurrent metabolic encephalopathy, poor mobility, and is DNR/DNI. Pertinent Medical History * Chronic: Dementia (vascular), major depression, diabetes mellitus, hypertension, chronic back pain, fibromyalgia, KWAME, history of CVA with seizures, CKD stage III. * Acute: Sepsis, hospital-acquired pneumonia, hypoxemia, hypokalemia, metabolic encephalopathy, aspiration risk, acute UTI, acute kidney injury. Surgical History * Cervical spinal fusion (C4-7) * Total left hip replacement (09/17/20) * Back surgery, cholecystectomy Social History * Lives in assisted living facility * Never smoker or alcohol user * Independent in decision-making, feels safe in current environment Allergies * Sulfamethoxazole/trimethoprim – diarrhea * Morphine – psychosis * Others: baclofen, chlorthalidone, codeine, dextromethorphan, gabapentin, hydrochlorothiazide, pregabalin Home Medications * Aspirin 81 mg daily * Amlodipine 10 mg daily * Atorvastatin 20 mg nightly * Mirtazapine 15 mg nightly * Naloxone nasal spray PRN * Nitrofurantoin 100 mg daily * Risperidone 1 mg BID * Levetiracetam 500 mg BID * Acetaminophen 650 mg PRN * Lactulose 15 mL daily * Lorazepam 0.5 mg nightly * Oxycodone 5 mg BID PRN * Bisacodyl 10 mg WV PRN * Sennosides 34.4 mg BID PRN Labs/Imaging * Chest X-ray: Patchy moderate opacity at left lung base, consistent with pneumonia. * Labs: WBC 9.67, Hgb 10.3, Hct 31.6, Na 148, K 3.4, glucose 234, VBG: pH 7.50, pCO2 37, pO? 58, HCO2 29, lactate 1.7. Hospital Course * Sepsis/Hospital-acquired pneumonia: Initially treated with IV ceftriaxone and azithromycin. Transitioned to oral amoxicillin/clavulanate (Augmentin) and azithromycin for completion of 7 day therapy at discharge. * Hypokalemia: Repleted during hospitalization; daily oral potassium recommended with recheck in 1 week. * Hypoxemia: Oxygen discontinued day one; monitor respiratory status. * Metabolic encephalopathy: Supportive care; usually improves with infection treatment. * Other supportive care: Levi catheter for immobility; continued monitoring for infection and metabolic abnormalities. Discharge Medications * Amoxicillin/clavulanate (Augmentin) – complete course per discharge instructions * Azithromycin – complete course per discharge instructions * Potassium supplementation – daily; recheck serum potassium in 1 week * Continue home medications as tolerated (see list above) Follow-Up / Recommendations * Recheck serum potassium in 1 week. * Monitor for fever, respiratory distress, worsening confusion, or falls. * Continue supportive care and routine monitoring at assisted living facility. * Maintain communication with primary care provider and nursing staff regarding any acute changes. Home Meds and New Rx's Prescriptions: New azithromycin 250 mg Tablet 500 mg PO HS Qty: 3 0RF amoxicillin-pot clavulanate 875-125 mg Tablet 1 tab PO BID Qty: 10 0RF Continued oxycodone 5 mg tablet 5 mg PO BID PRN lactulose [Enulose] 10 gram/15 mL solution 15 ml PO DAILY acetaminophen 325 mg tablet 650 mg PO Q6H PRN aspirin 81 mg tablet,delayed release (DR/EC) 81 mg PO DAILY mirtazapine 15 mg Tablet 15 mg PO HS Qty: 30 0RF amlodipine 10 mg tablet 10 mg PO DAILY naloxone 4 mg/actuation spray,non-aerosol 4 mg INTRANASAL ONCE PRN Patient Comments: ADMINISTER 1 SPRAY INTO ONE NOSTRIL A SINGLE DOSE NEEDED FOR EXCESSIVE SEDATION atorvastatin 20 mg Tablet 20 mg PO QPM Qty: 30 0RF risperidone 1 mg tablet 1 mg PO BID Patient Comments: TAKE ONE TABLET BY MOUTH AT BEDTIME nitrofurantoin macrocrystal 100 mg capsule 100 mg PO DAILY levetiracetam 100 mg/mL solution 500 mg PO BID lorazepam 0.5 mg tablet 0.5 mg PO QHS Patient Comments: UNdergoing taper off. bisacodyl [Dulcolax (bisacodyl)] 10 mg suppository 10 mg [place] DAILY PRN sennosides [Black-Draught Lax-Senna] 8.6 mg tablet 34.4 mg PO BID PRN Discharge Instructions Stand Alone Forms: Portal Information Referrals: Danny Maldonado [Primary Care Provider, Medicine] Referral Note: Your pcp will schedule a follow up Activity:: Activity as Tolerated Equipment/Supplies:: Walker Diet:: As Tolerated Discharge Orders Discharge Orders: Discharge Order (Routine); Ordered 05/04/25 Ordered By: Keira Malave DS: Summary Time Spent with Patient providing and/or coordinating discharge services: Greater than 30 minutes Status at Discharge Functional status at discharge: wheelchair bound Overall status at discharge: patient is back to baseline Mental Status: other Speech and Movement: slowed movement Mood: other Affect: blunted Quality:SDOH Health Related Social Needs: Health related social needs material hardship Health related social needs details pt. non verbal Exam Narrative Exam Narrative: General: Awake verbal but nonsensical, frail Neuro: Moves all extremities; left-sided weakness > right; not following commands Lungs: Clear to auscultation Heart: Regular rate and rhythm Abdomen: Soft, nondistended, non-tender Skin: Warm, pale Psych Mental Status: other Speech and Movement: slowed movement Mood: other Affect: blunted DS: Data Vitals/I&O Vitals and I&O: Vital Signs Temperature 36.6 C 05/04/25 11:25 Temperature Source Temporal Artery Scan 05/04/25 11:25 Pulse 58 L 05/04/25 11:25 Pulse Rhythm Regular 05/01/25 05:08 Pulse 73 05/01/25 02:10 Respiratory Rate 16 05/04/25 11:25 Respiratory Effort Normal 05/01/25 05:08 Respiratory Depth Normal 05/01/25 05:08 Respiratory Pattern Normal 05/01/25 05:08 Blood Pressure 148/85 H 05/04/25 11:25 Blood Pressure Mean 106 05/04/25 11:25 Blood Pressure Position Supine 04/30/25 23:15 Pulse Oximetry 100 05/04/25 11:25 Oxygen Delivery Method Room Air 05/04/25 11:25 Oxygen Flow Rate 0 05/04/25 11:25 Pain Level 0 05/04/25 11:25 Comment See MAR 05/01/25 05:08 Intake & Output 05/03/25 05/03/25 05/04/25 11:59 23:59 11:59 Intake Total 1137.5 / 2442.5 1305 / 2442.5 105 / 105 Output Total 300 / 1375 1075 / 1375 2200 / 2200 Balance 837.5 / 1067.5 230 / 1067.5 -2094 / -2094 Weight 49 kg 56 kg Intake: IV 1137.5 / 2292.5 1155 / 2292.5 105 / 105 Oral 150 / 150 Output: Urine 300 / 1375 1075 / 1375 2200 / 2200 Other: Urine Color Yellow Yellow Yellow Urine Appearance Clear Clear Clear Comment ASSOCIATE [employer] DEVELOPER checked pt's levi, no need to empty. Stool Size Moderate Moderate Moderate Stool Characteristics Soft Soft Liquid Brown Data Completed and Pending Pending Labs at Discharge: 04/30/25 04/30/25 05/01/25 23:32 23:51 00:28 WBC 9.67 RBC 3.67 L Hgb 10.3 L Hct 31.6 L MCV 86 MCH 28.1 MCHC 32.6 RDW 14.2 Plt Count 268 MPV 9.7 Immature Gran % 0.4 Neutrophils % 91.6 Lymphocytes % 2.0 Monocytes % 5.9 Eosinophils % 0.0 Basophils % 0.1 Nucleated RBC % 0.0 Absolute Neutrophils 8.86 H Absolute Lymphocytes 0.19 L Absolute Monocytes 0.57 Absolute Eosinophils 0.00 Absolute Basophils 0.01 VBG pH 7.50 H VBG pCO2 37 L VBG pO2 58 VBG HCO3 29 H VBG Total CO2 26 VBG O2 Saturation 92 VBG Base Excess 6 H VBG Lactate 1.7 Sodium 148 H Potassium 3.4 L Chloride 112 H Carbon Dioxide 26.9 Anion Gap 9.1 BUN 26 H Creatinine 0.5 L Est GFR (CKD-EPI 2020) 117.10 Glucose 234 H Calcium 8.9 Magnesium Total Bilirubin 0.50 AST 16 ALT < 7 L Alkaline Phosphatase 66 Ammonia Total Protein 7.3 Albumin 3.4 Procalcitonin 0.22 TSH Free T4 Urine Color Yellow Urine Clarity Clear Urine pH 5.5 Ur Specific [place] 1.015 Urine Protein 30 H Urine Ketones Trace H Urine Blood Moderate H Urine Nitrite Negative Urine Bilirubin Small H Urine Urobilinogen 0.2 Ur Leukocyte Esterase Negative Urine RBC 10-20 H Urine WBC 3-5 Ur Epithelial Cells Moderate Urine Crystals Negative Urine Bacteria Moderate Urine Casts 0-2 Hyaline Urine Mucus Negative Ur Culture Indicated? No Urine Glucose Negative Random Vancomycin COVID-19 Source Nasopharynx SARS-CoV-2 (PCR) Negative Influenza Type A (PCR) Negative Influenza Type B (PCR) Negative RSV (PCR) Negative MRSA (TEM-PCR) 05/01/25 05/01/25 05/01/25 01:16 06:33 07:40 WBC 12.58 H RBC 2.99 L Hgb 8.6 L Hct 26.6 L MCV 89 MCH 28.8 MCHC 32.3 RDW 14.4 Plt Count 229 MPV 9.9 Immature Gran % Neutrophils % Lymphocytes % Monocytes % Eosinophils % Basophils % Nucleated RBC % Absolute Neutrophils Absolute Lymphocytes Absolute Monocytes Absolute Eosinophils Absolute Basophils VBG pH 7.37 VBG pCO2 46 VBG pO2 39 VBG HCO3 27 VBG Total CO2 25 VBG O2 Saturation 72 VBG Base Excess 1 VBG Lactate 2.1 Sodium 153 H Potassium 3.7 Chloride 116 H Carbon Dioxide 26.6 Anion Gap 10.4 BUN 23 Creatinine 0.5 L Est GFR (CKD-EPI 2020) 109.63 Glucose 170 H Calcium 8.3 Magnesium 1.6 Total Bilirubin 0.60 AST 13 ALT < 7 L Alkaline Phosphatase 52 Ammonia 15 Total Protein 6.0 Albumin 2.8 L Procalcitonin TSH 0.48 L Free T4 1.02 Urine Color Urine Clarity Urine pH Ur Specific [place] Urine Protein Urine Ketones Urine Blood Urine Nitrite Urine Bilirubin Urine Urobilinogen Ur Leukocyte Esterase Urine RBC Urine WBC Ur Epithelial Cells Urine Crystals Urine Bacteria Urine Casts Urine Mucus Ur Culture Indicated? Urine Glucose Random Vancomycin COVID-19 Source SARS-CoV-2 (PCR) Influenza Type A (PCR) Influenza Type B (PCR) RSV (PCR) MRSA (TEM-PCR) Negative 05/01/25 05/01/25 05/01/25 13:02 15:00 21:52 WBC RBC Hgb Hct MCV MCH MCHC RDW Plt Count MPV Immature Gran % Neutrophils % Lymphocytes % Monocytes % Eosinophils % Basophils % Nucleated RBC % Absolute Neutrophils Absolute Lymphocytes Absolute Monocytes Absolute Eosinophils Absolute Basophils VBG pH VBG pCO2 VBG pO2 VBG HCO3 VBG Total CO2 VBG O2 Saturation VBG Base Excess VBG Lactate 2.5 H* Sodium 153 H Potassium 3.7 Chloride 119 H Carbon Dioxide 26.2 Anion Gap 7.8 BUN 21 Creatinine 0.5 L Est GFR (CKD-EPI 2020) 112.02 Glucose 146 H Calcium 8.6 Magnesium Total Bilirubin AST ALT Alkaline Phosphatase Ammonia Total Protein Albumin Procalcitonin TSH Free T4 Urine Color Urine Clarity Urine pH Ur Specific [place] Urine Protein Urine Ketones Urine Blood Urine Nitrite Urine Bilirubin Urine Urobilinogen Ur Leukocyte Esterase Urine RBC Urine WBC Ur Epithelial Cells Urine Crystals Urine Bacteria Urine Casts Urine Mucus Ur Culture Indicated? Urine Glucose Random Vancomycin 24.1 COVID-19 Source SARS-CoV-2 (PCR) Influenza Type A (PCR) Influenza Type B (PCR) RSV (PCR) MRSA (TEM-PCR) Negative 05/01/25 05/02/25 05/03/25 Unknown 06:36 12:15 WBC 11.45 H 6.07 RBC 2.98 L 3.01 L Hgb 8.3 L 8.4 L Hct 25.6 L 25.6 L MCV 86 85 MCH 27.9 27.9 MCHC 32.4 32.8 RDW 15.0 H 15.1 H Plt Count 215 227 MPV 10.3 10.1 Immature Gran % Neutrophils % Lymphocytes % Monocytes % Eosinophils % Basophils % Nucleated RBC % Absolute Neutrophils Absolute Lymphocytes Absolute Monocytes Absolute Eosinophils Absolute Basophils VBG pH VBG pCO2 VBG pO2 VBG HCO3 VBG Total CO2 VBG O2 Saturation VBG Base Excess VBG Lactate Cancelled Sodium 150 H 144 Potassium 2.9 L 3.4 L Chloride 117 H 115 H Carbon Dioxide 21.5 19.8 L Anion Gap 11.5 H 9.2 BUN 16 11 Creatinine 0.5 L 0.5 L Est GFR (CKD-EPI 2020) 117.10 131.91 Glucose 97 113 H Calcium 8.0 L 7.8 L Magnesium 1.4 L 1.6 Total Bilirubin 0.60 0.50 AST 14 11 ALT < 7 L < 7 L Alkaline Phosphatase 53 52 Ammonia Total Protein 5.9 5.6 L Albumin 2.7 L 2.5 L Procalcitonin TSH Free T4 Urine Color Urine Clarity Urine pH Ur Specific [place] Urine Protein Urine Ketones Urine Blood Urine Nitrite Urine Bilirubin Urine Urobilinogen Ur Leukocyte Esterase Urine RBC Urine WBC Ur Epithelial Cells Urine Crystals Urine Bacteria Urine Casts Urine Mucus Ur Culture Indicated? Urine Glucose Random Vancomycin COVID-19 Source SARS-CoV-2 (PCR) Influenza Type A (PCR) Influenza Type B (PCR) RSV (PCR) MRSA (TEM-PCR) Preliminary micro results at discharge 04/30/25 23:45 Blood Blood Culture - Preliminary NO GROWTH 72 HOURS 04/30/25 23:32 Blood Blood Culture - Preliminary NO GROWTH 72 HOURS PFSH All Active Problems (Updated 05/03/25 @ 16:29 by Keira Ananda, [employer]OCIATE) Diabetes mellitus (Chronic) Hypokalemia (Acute) Pneumonia (Acute) Sepsis (Acute) Difficulty swallowing (Acute) AMS (altered mental status) (Acute) Acute dehydration (Acute) Major depression, recurrent, chronic (Chronic) Aspiration into airway (Acute) Palliative care patient (Acute) ACP (advance care planning) (Acute) DNR (do not resuscitate) (Acute) Delusions (Acute) Dementia (Chronic) Bladder mass (Acute) Chronic back pain (Chronic) Cystic mass of pancreas (Acute) Abnormal finding on CT scan (Acute) Sharifa coma scale score 3-8, at arrival to emergency department (Acute) Altered mental status (Acute) Encephalopathy (Acute) Acute UTI (Acute) Altered mental status (Acute) Failure to thrive in adult (Acute) Weakness (Acute) Falls frequently (Acute) Trouble talking (Acute) Acute UTI (Acute) Acute kidney injury superimposed on CKD (Acute) Lives in [place] [facility] (Acute) Deficit in activities of daily living (ADL) (Acute) Closed fracture of distal end of radius (Acute) Closed fracture of left distal radius (Acute) Closed fracture of right distal radius (Acute) Heart murmur (Acute) Depression (Chronic) At high risk for skin breakdown (Acute) Periorbital edema (Acute) Hiatal hernia (Chronic) moderate Coronary artery calcification seen on CAT scan (Acute) Diverticula of colon (Acute) DJD (degenerative joint disease), lumbar (Acute) History of CVA (cerebrovascular accident) (Acute) remote Fracture of both wrists (Acute) Goiter (Acute) Fibromyalgia (Chronic) Chronic pain (Chronic) Movement disorder (Acute) Chronic renal insufficiency, stage III (moderate) (Acute) Hypertension (Chronic) Medical History KWAME (obstructive sleep apnea) Anemia Low magnesium level UTI (urinary tract infection) Encephalopathy Seizure Psychiatric symptoms Ambulatory dysfunction AMS (altered mental status) Rhabdomyolysis Fall Primary osteoarthritis of left knee We will see the patient back in 4-1/2 months for possible repeat Synvisc 1 in her left knee would consider x-ray in her right knee if she is still significantly symptomatic Osteoarthritis of right knee Steroid injection: 04/05/2020 Has had previous viscosupplementation injections. 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) As treatment for a femoral neck fracture (DOI: 09/16/2020) History of back surgery Hx of cholecystectomy Social History Smoking/Tobacco Use Status: Never Smoking risk assessment performed?: Yes Alcohol Intake: never Drug use: Never Substance use type: does not use Housing: assisted living facility Do you feel safe at home: Yes Do you feel safe in your relationship?: Yes Additional Social history: health and rehab Time Spent with Patient Time Spent with Patient: 45-69 minutes Time was spent: preparing to see the patient(eg.review tests), ordering medications,tests, procedures, referring, communicating with other health family day care provider, indepentently interpreting results, counseling the patient and care coordination
--- NOTE | 2025-05-04 11:56 | W.PALPGNOTE ---
Date of service: 05/04/25 Time of Service: 10:30 Assessment and Plan Assessment and plan (1) Pneumonia: Status: Acute (2) Difficulty swallowing: Status: Acute (3) AMS (altered mental status): Status: Acute (4) DNR (do not resuscitate): Status: Acute (5) Dementia: Status: Chronic Subjective Subjective Interval history since last seen: Tegan Ashton is a 74-year-old woman with dementia and history of nonresponsive episodes. Please see my complete outpatient visit note from last week. She was admitted to the hospital 4 days ago for decreased responsiveness and diagnosed with pneumonia. Hospitalist staff feel she is now back to her baseline and ready to return to SNF to complete antibiotics course with oral medications.. I attempted to meet with the patient and her daughter today to follow-up on last week's visit. Given Tegan's steady decline over the last 6 months , evidenced by multiple hospital admissions as well as ED visits, now mostly bedridden and needing to be fed, at our visit last week we had discussed the option of transitioning to hospice. Daughter Rama last week felt that if patient had a UTI or pneumonia which was treatable with antibiotics, she would want her mom transferred and treated. However there is something more serious and long-term going on, she would seriously consider switching to hospice/comfort measures only. I met with patient in her room. She was sleeping on her side. She appeared pale (however at baseline) and relaxed with no respiratory distress. She refused to open her eyes or respond at all to me. She did continue to breathe comfortably and steadily. This is similar to what others have described when they attempt to interact with Tegan. However she has always been awake and somewhat interactive with me even when nonverbal in the past. I also attempted to get in touch with dawna Jackson by phone. I left a message and we will hopefully reach her by the end of the day. 18:00: PC with Josey (daughter): She did not speak with hospitalists during this admission. -She only heard that her mom had had a fever and had not woken up and was going back to SNF. -I shared presumed dx of PNA based on CXR and treamtent (IV and then PO abx). -Josey wants to think through with her borhter whether it is time for hospice. -Josey is concerned about how many sedating meds she is taking. Josey asked me to tell her what potentially sedating medications she was on: -lorazepam: 0.5 mg QHS (Josey is especially concerned about this med, sounds like this is a much lower dose than she was getting). -Keppra 500mg BID -Oxycodone 5mg BID PRN (Josey thinks that she gets this twice a day fairly regularly) -Risperidone 1 mg BID. Josey thinks that this was started last July. I see that when she was admitted in August, she was on risperidone 1 mg at bedtime. Josey reports that Tegan has never had agitation or aggressive behavior. She wonders if this was started to help with depression Recommendations: 1. Strongly recommend trial of gradual dose reduction of Risperidol. 2. Family is requesting a hospice consult. They are NOT ready to admit Tegan to hospice but have many more questions. Pt has dual payer source (medicare and Medicaid). We will f/u with Josey and Tegan in a month, if Tegan is not admitted to hospice. Objective Last Vital Signs Temp 36.6 C 05/04/25 11:25 Pulse 58 L 05/04/25 11:25 Resp 16 05/04/25 11:25 BP 148/85 H 05/04/25 11:25 Pulse Ox 100 05/04/25 11:25 Laboratory Results - last 24 hr 05/03/25 12:15 WBC 6.07 RBC 3.01 L Hgb 8.4 L Hct 25.6 L MCV 85 MCH 27.9 MCHC 32.8 RDW 15.1 H Plt Count 227 MPV 10.1 Sodium 144 Potassium 3.4 L Chloride 115 H Carbon Dioxide 19.8 L Anion Gap 9.2 BUN 11 Creatinine 0.5 L Est GFR (CKD-EPI 2020) 131.91 Glucose 113 H Calcium 7.8 L Magnesium 1.6 Total Bilirubin 0.50 AST 11 ALT < 7 L Alkaline Phosphatase 52 Total Protein 5.6 L Albumin 2.5 L
--- NOTE | 2025-05-04 12:23 | NUR.NOTE ---
Nursing Note: Report called to VJ Bustillos at [facility]. Head to toe, am med refusal excepting abx, orientation level, mobility, date of last bm, diet consistency.
== END 2025-05-04 12:40 | disposition skilled nursing facility (03) | DRG 871 ==
LOC: ER 05-01 01:08 → MS 05-01 02:14
PROVIDERS: Admitting Provider Family Medicine; Emergency Provider Student in an Organized Health Care Education/Training Program; PCP Family Medicine; Responsible Provider Nurse Practitioner Family; Visit Provider Family Medicine
DX: A41.9 Sepsis, unspecified organism (principal); J18.9 Pneumonia, unspecified organism; G93.41 Metabolic encephalopathy; E87.6 Hypokalemia; G47.33 Obstructive sleep apnea (adult) (pediatric); Z86.73 Personal history of transient ischemic attack (TIA), and cerebral infarction without residual deficits; E11.9 Type 2 diabetes mellitus without complications; G89.29 Other chronic pain; F33.9 Major depressive disorder, recurrent, unspecified; R13.10 Dysphagia, unspecified; Z66 Do not resuscitate; F01.C18 Vascular dementia, severe, with other behavioral disturbance; K86.2 Cyst of pancreas; R47.01 Aphasia; N17.9 Acute kidney failure, unspecified; R09.02 Hypoxemia; N32.9 Bladder disorder, unspecified; R29.6 Repeated falls; K44.9 Diaphragmatic hernia without obstruction or gangrene; I25.10 Atherosclerotic heart disease of native coronary artery without angina pectoris; K57.30 Diverticulosis of large intestine without perforation or abscess without bleeding; M47.816 Spondylosis without myelopathy or radiculopathy, lumbar region; E11.22 Type 2 diabetes mellitus with diabetic chronic kidney disease; I12.9 Hypertensive chronic kidney disease with stage 1 through stage 4 chronic kidney disease, or unspecified chronic kidney disease; N18.30 Chronic kidney disease, stage 3 unspecified; Y95 Nosocomial condition; Z59.87 Material hardship due to limited financial resources, not elsewhere classified; Z74.09 Other reduced mobility
CPT/HCPCS: 00123; 36415; 51702; 80048; 80053; 82805; 84145; 85027; 87040; 87637; 87641; 96361; 96365; 96367; 96368; 99291; J1650; 71045; 80202; 81003; 81015; 82140; 83605; 83735; 84439; 84443; 85025; 94760; 99223; 99232; 99239; J0131; J0456; J1815; J1953; J2543; J3373; J3475; J3480

== ENCOUNTER 2025-05-29 02:26 | Inpatient (IN) | payer MEDICARE, MEDICAID, SELFPAY ==
[2025-05-29] VITALS (13 sets, daily range): BP systolic 107–164; BP diastolic 60–96; PULSE 54–91; RESP 11–21; TEMP 36.6–37.4; O2SAT 94–98
--- NOTE | 2025-05-29 02:38 | W.ED.GENAD ---
Discharge Plan Disposition Patient Disposition: Admit to [facility] Condition: Poor Discharge Details Clinical Impression: AMS (altered mental status), Acute UTI Primary Care Provider: Danny Maldonado ED Provider: Charbel Desir [place] Meds and New Rx's Prescriptions: No Action oxycodone 5 mg tablet 5 mg PO BID PRN lactulose [Enulose] 10 gram/15 mL solution 15 ml PO DAILY acetaminophen 325 mg tablet 650 mg PO Q6H PRN aspirin 81 mg tablet,delayed release (DR/EC) 81 mg PO DAILY mirtazapine 15 mg Tablet 15 mg PO HS Qty: 30 0RF amlodipine 10 mg tablet 10 mg PO DAILY naloxone 4 mg/actuation spray,non-aerosol 4 mg INTRANASAL ONCE PRN Patient Comments: ADMINISTER 1 SPRAY INTO ONE NOSTRIL A SINGLE DOSE NEEDED FOR EXCESSIVE SEDATION atorvastatin 20 mg Tablet 20 mg PO QPM Qty: 30 0RF risperidone 1 mg tablet 1 mg PO BID Patient Comments: TAKE ONE TABLET BY MOUTH AT BEDTIME nitrofurantoin macrocrystal 100 mg capsule 100 mg PO DAILY levetiracetam 100 mg/mL solution 500 mg PO BID bisacodyl [Dulcolax (bisacodyl)] 10 mg suppository 10 mg ND DAILY PRN sennosides [Black-Draught Lax-Senna] 8.6 mg tablet 34.4 mg PO BID PRN HPI General Mode of arrival: EMS. Date/Time Provider Initiated Documentation: 05/29/25 02:38. Limitations to Documentation: altered mental status. Information obtained by: EMS, RN notes reviewed and old records reviewed. HPI Narrative: Patient presents to ED from [facility] by ambulance for mental status change and fever. Per EMS, F staff stated patient has not been herself for the last day or two. Had a low grade fever earlier but spiked fever early this morning. Received acetaminophen and ibuprofen for fever and EMS called to transport to ED. Patient will open eyes to voice but does not answer any quesitons. She does not appear to be in distress. Related Data Home Medications ?Medication ?Instructions ?Recorded ?Confirmed aspirin 81 mg tablet,delayed 81 mg PO DAILY 06/23/21 05/29/25 release amlodipine 10 mg tablet 10 mg PO DAILY 01/14/22 05/29/25 naloxone 4 mg/actuation nasal spray 4 mg intranasal ONCE PRN 07/16/23 05/29/25 atorvastatin 20 mg tablet 20 mg PO QPM #30 tabs 08/23/24 05/29/25 mirtazapine 15 mg tablet 15 mg PO HS #30 tabs 09/01/24 05/29/25 nitrofurantoin macrocrystal 100 mg 100 mg PO DAILY 12/21/24 05/29/25 capsule risperidone 1 mg tablet 1 mg PO BID 01/29/25 05/29/25 levetiracetam 100 mg/mL oral 500 mg PO BID 04/02/25 05/29/25 solution acetaminophen 325 mg tablet 650 mg PO Q6H PRN 04/30/25 05/29/25 lactulose 10 gram/15 mL oral 15 ml PO DAILY 04/30/25 05/29/25 solution (Enulose) oxycodone 5 mg tablet 5 mg PO BID PRN 04/30/25 05/29/25 bisacodyl 10 mg rectal suppository 10 mg ND DAILY PRN 05/01/25 05/29/25 (Dulcolax (bisacodyl)) sennosides 8.6 mg tablet 34.4 mg PO BID PRN 05/01/25 05/29/25 (Black-Draught Lax-Senna) Previous Rx's ?Medication ?Instructions ?Recorded atorvastatin 20 mg tablet 20 mg PO QPM #30 tabs 08/23/24 mirtazapine 15 mg tablet 15 mg PO HS #30 tabs 09/01/24 Allergies Allergy/AdvReac Type Severity Reaction Status Date / Time sulfamethoxazole (From Allergy Diarrhea Verified 05/29/25 05:27 Bactrim) trimethoprim (From Bactrim) Allergy Diarrhea Verified 05/29/25 05:27 morphine AdvReac Intermediate Psychosis Verified 05/29/25 05:27 baclofen AdvReac Unknown Unknown Verified 05/29/25 05:27 chlorthalidone AdvReac Unknown Unknown Verified 05/29/25 05:27 codeine AdvReac Unknown Unknown Verified 05/29/25 05:27 dextromethorphan AdvReac Unknown Unknown Verified 05/29/25 05:27 gabapentin (From Neurontin) AdvReac Unknown Unknown Verified 05/29/25 05:27 hydrochlorothiazide AdvReac Unknown Unknown Verified 05/29/25 05:27 pregabalin AdvReac Unknown Dopey Verified 05/29/25 05:27 General Stated Complaint: Fever LOLITA: 3 Exam Narrative Exam Narrative: Const: WDWN elderly female in NAD. VS per triage. HEENT: NC/AT. Normal facial exam. Neck: Supple. Trachea midline. Lungs: Normal respiratory effort. Lungs are clear. Cor: RRR without murmur. Good radial pulses. GI: Soft/ND/NT. Neuro: Opens eyes to voice. Cranial nerves II - XII grossly intact. No gross motor or sensory deficit. Ext: No C/C/E. Skin: No rash or redness. Course Vital Signs Vital signs: Vital Signs Temperature 99.4 F 05/29/25 02:21 Pulse 90 05/29/25 02:21 Respiratory Rate 21 05/29/25 02:21 Blood Pressure 121/68 05/29/25 02:21 Pulse Oximetry 94 05/29/25 02:21 Temperature 99.4 F 05/29/25 02:21 Temperature Source Tympanic 05/29/25 02:21 Pulse 90 05/29/25 02:21 Respiratory Rate 21 05/29/25 02:21 Blood Pressure 121/68 05/29/25 02:21 Blood Pressure Position Supine 05/29/25 02:21 Pulse Oximetry 94 05/29/25 02:21 Oxygen Delivery Method Room Air 05/29/25 02:21 Oxygen Flow Rate 0 05/29/25 02:21 Pain Level 0 05/29/25 02:21 Medical Decision Making Patient presenting to ED from [facility] with fever and AMS. Received acetaminophen and ibuprofen so not febrile here. Review of COLST form from [facility] states patient is DNR/DNI and no invasive interventions. Was here last month with pneumonia. IV placed and fluids started though she is not tachycardic or hypotensive. Will obtain CT head for AMS and CXR/urine for fever. Labs sent including blood cultures. Patient has remained hemodynamically stable. EKG is sinus rhythm with normal intervals and nonspecific ST changes, nothing acute. Laboratory studies with a normal white count 10.7 with normal differential. She has baseline anemia. Lactic acid is only 2.5. She has a respiratory alkalosis with a pH of 7.48 and pCO2 of 37. Chemistries, kidney function, liver function all normal. Delta troponin is flat. Straight cath urinalysis is positive for UTI and reflex culture ordered. Chest x-ray per my read with no acute cardiopulmonary process. Preliminary CT head negative for acute intracranial findings. Fluvid is still pending. Patient has received a liter of fluid. IV ceftriaxone given. Case discussed with hospitalist service and will plan admission for altered mental status and UTI. Medical Records Medical records reviewed: Yes I reviewed the patient's medical records. Medical records narrative: previous admit/discharge from [facility]; ECF records Imaging Data Radiologic Study: Attestation: I personally reviewed and interpreted this imaging study as follows: Imaging: X-Ray My impression: see [facility] Lab Data Lab results reviewed: Yes I reviewed the patient's lab results. Lab results narrative: see [facility] ECG Data Attestation: I personally reviewed and interpreted this ECG (s) as follows: Prior ECG tracings: available for review Interpretation: see EKG/[facility] Quality:SDOH Health Related Social Needs: Health related social needs material hardship Health related social needs details pt. non verbal PFSH All Active Problems (Updated 05/29/25 @ 05:52 by Charbel Desir MD) Pneumonia (Acute) Difficulty swallowing (Acute) AMS (altered mental status) (Acute) Acute dehydration (Acute) Aspiration into airway (Acute) DNR (do not resuscitate) (Acute) Delusions (Acute) Bladder mass (Acute) Cystic mass of pancreas (Acute) Abnormal finding on CT scan (Acute) Sharifa coma scale score 3-8, at arrival to emergency department (Acute) Altered mental status (Acute) Encephalopathy (Acute) Acute UTI (Acute) Altered mental status (Acute) Failure to thrive in adult (Acute) Weakness (Acute) Falls frequently (Acute) Trouble talking (Acute) Acute UTI (Acute) Acute kidney injury superimposed on CKD (Acute) Lives in fdc (Acute) Deficit in activities of daily living (ADL) (Acute) Closed fracture of distal end of radius (Acute) Closed fracture of left distal radius (Acute) Closed fracture of right distal radius (Acute) Heart murmur (Acute) Depression (Chronic) At high risk for skin breakdown (Acute) Periorbital edema (Acute) Hiatal hernia (Chronic) moderate Coronary artery calcification seen on CAT scan (Acute) Diverticula of colon (Acute) DJD (degenerative joint disease), lumbar (Acute) History of CVA (cerebrovascular accident) (Acute) remote Fracture of both wrists (Acute) Goiter (Acute) Fibromyalgia (Chronic) Chronic pain (Chronic) Movement disorder (Acute) Chronic renal insufficiency, stage III (moderate) (Acute) Medical History Diabetes mellitus Major depression, recurrent, chronic Dementia Chronic back pain Hypertension KWAME (obstructive sleep apnea) Anemia Low magnesium level UTI (urinary tract infection) Encephalopathy Seizure Psychiatric symptoms Ambulatory dysfunction AMS (altered mental status) Rhabdomyolysis Fall Primary osteoarthritis of left knee We will see the patient back in 4-1/2 months for possible repeat Synvisc 1 in her left knee would consider x-ray in her right knee if she is still significantly symptomatic Osteoarthritis of right knee Steroid injection: 04/05/2020 Has had previous viscosupplementation injections. 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) As treatment for a femoral neck fracture (DOI: 09/16/2020) History of back surgery Hx of cholecystectomy Social History Smoking/Tobacco Use Status: Never Smoking risk assessment performed?: Yes Alcohol Intake: never Drug use: Never Substance use type: does not use Housing: assisted living facility Do you feel safe at home: Yes Do you feel safe in your relationship?: Yes Additional Social history: health and rehab
--- NOTE | 2025-05-29 02:45 | RT.EKG_ITS ---
APPROVED REPORT Exam: Resting ECG Reason for Exam: [facility] Patient Location: E HR:89 bpm ECG Measurements Heart Rate 89 AXIS UT 187 P 57 QRSd 86 QRS 27 QT 382 T 102 QTc 465 Conclusion Sinus rhythm...normal P axis, V-rate 60- 99 Nonspecific T abnormalities, lateral leads...T <-0.10mV, I aVL V5 V6 Normal [place]/Interval No acute ST changes
[2025-05-29 03:37] LABS: BE (Venous) 4 mmol/L (-2-3); HCO3 (Venous) 27 mmol/L (23-28); O2 Sat (Venous) 98 %; TCO2 (Venous) 25 mmol/L (24-29); pCO2 (Venous) 37 mmHg (41-51); pO2 (Venous) 87 mmHg
[2025-05-29 03:39] LABS: Abs Immature Grans 0.04 10^3/uL (0.0-0.06); HCT 28.4 % (36.0-46.0); HGB 9.2 g/dL (11.2-15.7); Immature Grans % 0.4 %; MCH 28.6 pg (27.0-33.0); MCHC 32.4 % (32.0-36.0); MCV 88 fL (80-95); MPV 9.7 fL (8.0-11.0); Platelet Count 230 10^3/uL (130-400); RBC 3.22 10^6/uL (3.93-5.22); RDW 16.5 % (11.7-14.6); RDW-SD 53.3 fL; WBC 10.72 10^3/uL (4.4-10.8)
[2025-05-29] MEDS: Normal Saline 1,000 ML 1000 ML IV (03:51)
[2025-05-29 03:57] LABS: Magnesium 1.6 mg/dL (1.6-2.6); Troponin I 13 ng/L (<35)
[2025-05-29 04:13] LABS: ALT < 7 U/L (10-49); AST 15 U/L (<34); Albumin 3.3 g/dL (3.2-5.0); Alkaline Phosphatase 59 U/L (46-116); Anion Gap 10.5 mmol/L (3-11); BUN 10 mg/dL (9-23); Bilirubin, Total 0.5 mg/dL (0.2-1.2); CO2 26.5 mmol/L (20.0-31.0); Calcium 8.7 mg/dL (8.3-10.6); Chloride 107 mmol/L (98-107); Glucose 99 mg/dL (74-106); Potassium 3.6 mmol/L (3.5-5.1); Sodium 144 mmol/L (136-145); Total Protein 7.0 g/dL (5.7-8.2)
--- NOTE | 2025-05-29 04:26 | DI.RAD_ITS ---
Exam(s) XR CHEST 2V PA LATERAL EXAM: XR CHEST 2V PA LATERAL CLINICAL HISTORY: AMS TECHNIQUE: 2D digital imaging was performed. Two views. COMPARISON: CR,XR XR PORTABLE CHEST AP from 03/02/2025 FINDINGS: Lateral view is suboptimal the due to suboptimal pulmonary inflation. HEART: Normal size. Aorta: Tortuous. PULMONARY VASCULATURE: Normal. MEDIASTINUM: Unremarkable. LUNGS: Clear. PLEURAL SPACE: No pleural effusion or pneumothorax. BONE:Scoliosis and degenerative changes. SOFT TISSUES: Unremarkable. IMPRESSION: No acute abnormality. The preliminary [facility] report was reviewed. DATA REPOSITORY: RADIATION DOSE DELIVERED:
--- NOTE | 2025-05-29 04:27 | DI.CT_ITS ---
Exam(s) CT HEAD WO EXAM: CT HEAD WO CLINICAL HISTORY: AMS. TECHNIQUE: Imaging Protocol: Axial computed tomography images with coronal and sagittal reformatted images were created and reviewed COMPARISON: CT CT BRAIN NECK CTA from 04/01/2025 FINDINGS: Ventricles and Extra axial spaces: Ex vacuo dilatation of the posterior horn of the right lateral ventricle. Hemorrhage: None. Cerebral parenchyma: No evidence of acute infarct or mass. Old right occipital infarct. Old right basal ganglia lacunar infarcts. Moderate white matter changes of microvascular disease. Midline shift: None. Brainstem/Cerebellum: Normal. Bones: No skull or facial fractures. Visualized Paranasal sinuses:Small mucous retention cyst in the right maxillary sinus. Mastoids: Clear. Soft Tissues: Unremarkable. ORBITS: Unremarkable. PITUITARY: Not enlarged. IMPRESSION: Old right occipital infarct. Old basal ganglia lacunar infarcts. No acute intracranial process. The preliminary [facility] report was reviewed. RADIATION DOSE DELIVERED: 814.79mGy.cm Total DLP DATA REPOSITORY: All CT scans at this facility are submitted to the National Radiology Data Registry (NRDR) Dose Index Registry (DIR) with the [employer] (ACR). RADIATION OPTIMIZATION: All CT scans at this facility use at least one of these dose optimization techniques: automated exposure control; mA and/or kV adjustment per patient size (includes targeted exams where dose is matched to clinical indication); or iterative reconstruction.
[2025-05-29 04:53] LABS: Troponin I 12 ng/L (<35)
[2025-05-29 05:19] LABS: Glucose Negative (Negative)
[2025-05-29 05:23] LABS: C & S Indicated? Yes
--- NOTE | 2025-05-29 05:29 | DI.[facility]_ITS ---
PROCEDURE INFORMATION: Exam: XR Chest Exam date and time: 05/29/2025 4:17 AM Age: 74 years old Clinical indication: Fever and other: AMS TECHNIQUE: Imaging protocol: Radiologic exam of the chest. Views: 2 views. COMPARISON: CR XR PORTABLE CHEST AP 04/30/2025 11:38 PM FINDINGS: Lungs: No acute consolidation Pleural spaces: Unremarkable. No pleural effusion. No pneumothorax. Heart/Mediastinum: Unremarkable. No cardiomegaly. Vasculature: Aorta is unwound Bones/joints: Lower cervical spine and right shoulder post surgical changes IMPRESSION: No acute consolidation Dictated and Authenticated by: Monet Mehta MD. Orderin Thang Barger MD
--- NOTE | 2025-05-29 05:32 | DI.[facility]_ITS ---
PROCEDURE INFORMATION: Exam: CT Head Without Contrast Exam date and time: 05/29/2025 4:07 AM Age: 74 years old Clinical indication: Fever and other: AMS TECHNIQUE: Imaging protocol: Computed tomography of the head without contrast. Radiation optimization: All CT scans at this facility use at least one of these dose optimization techniques: automated exposure control; mA and/or kV adjustment per patient size (includes targeted exams where dose is matched to clinical indication); or iterative reconstruction. COMPARISON: MR BRAIN WO 04/02/2025 10:18 AM FINDINGS: Brain: Remote large posterior parietooccipital lobe infarct. Remote bilateral basal ganglion lacunar infarcts. There is no evidence of acute brain infarct, mass, shift of midline or parenchymal hemorrhage. Patchy periventricular white matter low attenuation present, a nonspecific finding but likely related to chronic small vessel ischemic change. Cerebral ventricles: Moderate dilatation of the ventricular system and sulci diffusely, compatible with volume loss. Paranasal sinuses: Visualized sinuses are unremarkable. No fluid levels. Mastoid air cells: Visualized mastoid air cells are well aerated. Bones: Unremarkable. No acute fracture. Soft tissues: Left forehead soft tissue swelling Vasculature: Diffuse atherosclerotic disease IMPRESSION: 1. No evidence of acute intracranial process 2. Left forehead soft tissue swelling Dictated and Authenticated by: Monet Mehta MD. Orderin Thang Barger MD
[2025-05-29] MEDS: cefTRIAXone 1 GM/50 ML BAG IVPB (05:41)
--- NOTE | 2025-05-29 05:43 | W.PM.HP.N ---
Date of service: 05/29/25 Time of Service: 05:44 Assessment and Plan Assessment and plan (1) AMS (altered mental status): Start date: 05/29/25 Status: Acute Assessment and plan: This is a 74-year-old lady who has recurrent hospitalizations for infection with poor swallowing and always presenting with altered mental status and being withdrawn when admitted. She has had no recent respiratory symptoms but change in mental status with probable UTI as a source. She is not septic at this time. She did have fever and withdrawn mental status at the shelter. She has a DNR/DNI but is not on comfort measures at this time. She will be admitted for follow-up on abnormal labs with lactate slightly elevated now status post IV hydration. She is on Rocephin for probable UTI chronically on Macrobid for recurrent UTIs. Urine culture was performed and blood cultures were performed. She had no elevation in her WBC and no measured fever in the ED though she had reported fever. It is anticipated that she will return to the shelter once stabilized. I will have speech pathology reevaluate swallow for modification of diet if needed. (2) Acute UTI: Start date: 05/29/25 Status: Acute Assessment and plan: Urine culture with IV Rocephin for now following up on culture report and adjustment of oral antibiotic therapy for completion when return to the shelter. Chronically she is on Macrobid for suppression of chronic recurrent UTI UTIs. (3) Chronic pain syndrome: Assessment and plan: Patient does have oxycodone on her medication list but this has not been prescribed recently. With hold this medical therapy for now. PDMP was reviewed with last prescription for oxycodone cardiac being in October 2024 with OxyContin rather than oxycodone being prescribed. In the shelter, medications prescribed may not show up on the PDMP. Last urine drug screen did show opiates which is not appropriate with oxycodone being prescribed at low-dose. Repeat urine drug screen was not performed with patient on continuous care in the shelter at this time. Risk for abuse is low with patient not having control of her home medications. Because of her change in mental status, oxycodone will not be given at this time. (4) Depression: Status: Chronic Assessment and plan: Continue outpatient medical therapy as patient cannot take p.o. She usually does awaken shortly after admission by history reviewed with the attending nurses on the medical surgical floor. History of Present Illness History of Present Illness Chief Complaint: Patient more confused over the last 2 days with fever. Narrative: This is a 74-year-old female patient who resides at a local shelter with recent change in mental status for the last 2 days and just prior to presentation to the ED via EMS, patient had a fever requiring treatment with acetaminophen and ibuprofen. The exact management was not mentioned in the ED note. The patient was afebrile in the ED but did have altered mental status which is not unusual for this patient when she is ill. She would open her eyes in the ED with verbal stimulation but at the time I saw the patient she had her eyes shut though she did respond to tactile stimulation and painful stimulation. In the ED with her evaluation she had no increase in her WBC but did have a positive urine chronically on Macrobid with previous UTIs. She was not In the ED but did have a VBG showing respiratory alkalosis with possible tachypnea in the shelter along with her fever and source of infection most likely UTI. She did not meet sepsis criteria and procalcitonin was negative. She did have an elevated lactate. She did receive 1 L of IV fluid and ED and will be continued on IV Rocephin with follow-up on urine culture and blood cultures. This is recurrent and patient is a DNR/DNI though not on comfort measures only at this time. This needs to be reviewed by Perative care. She could receive oral therapy for comfort measures with these recurrent episodes. Review of Systems Narrative: 13 point review of systems otherwise unrevealing by report from the shelter and ED physician. Patient unable to do review of systems. [facility] All Active Problems Pneumonia (Acute) Difficulty swallowing (Acute) AMS (altered mental status) (Acute) Acute dehydration (Acute) Aspiration into airway (Acute) DNR (do not resuscitate) (Acute) Delusions (Acute) Bladder mass (Acute) Cystic mass of pancreas (Acute) Abnormal finding on CT scan (Acute) Sharifa coma scale score 3-8, at arrival to emergency department (Acute) Altered mental status (Acute) Encephalopathy (Acute) Acute UTI (Acute) Altered mental status (Acute) Failure to thrive in adult (Acute) Weakness (Acute) Falls frequently (Acute) Trouble talking (Acute) Acute UTI (Acute) Acute kidney injury superimposed on CKD (Acute) Lives in shelter (Acute) Deficit in activities of daily living (ADL) (Acute) Closed fracture of distal end of radius (Acute) Closed fracture of left distal radius (Acute) Closed fracture of right distal radius (Acute) Heart murmur (Acute) Depression (Chronic) At high risk for skin breakdown (Acute) Periorbital edema (Acute) Hiatal hernia (Chronic) moderate Coronary artery calcification seen on CAT scan (Acute) Diverticula of colon (Acute) DJD (degenerative joint disease), lumbar (Acute) History of CVA (cerebrovascular accident) (Acute) remote Fracture of both wrists (Acute) Goiter (Acute) Fibromyalgia (Chronic) Chronic pain (Chronic) Movement disorder (Acute) Chronic renal insufficiency, stage III (moderate) (Acute) Medical History Diabetes mellitus Major depression, recurrent, chronic Dementia Chronic back pain Hypertension KWAME (obstructive sleep apnea) Anemia Low magnesium level UTI (urinary tract infection) Encephalopathy Seizure Psychiatric symptoms Ambulatory dysfunction AMS (altered mental status) Rhabdomyolysis Fall Primary osteoarthritis of left knee We will see the patient back in 4-1/2 months for possible repeat Synvisc 1 in her left knee would consider x-ray in her right knee if she is still significantly symptomatic Osteoarthritis of right knee Steroid injection: 04/05/2020 Has had previous viscosupplementation injections. 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) As treatment for a femoral neck fracture (DOI: 09/16/2020) History of back surgery Hx of cholecystectomy Social History Smoking/Tobacco Use Status: Never Smoking risk assessment performed?: Yes Alcohol Intake: never Drug use: Never Substance use type: does not use Housing: assisted living facility Do you feel safe at home: Yes Do you feel safe in your relationship?: Yes Additional Social history: [facility] Meds Allergies and Home Medications Allergies Allergy/AdvReac Type Severity Reaction Status Date / Time sulfamethoxazole (From Allergy Diarrhea Verified 05/29/25 05:27 Bactrim) trimethoprim (From Bactrim) Allergy Diarrhea Verified 05/29/25 05:27 morphine AdvReac Intermediate Psychosis Verified 05/29/25 05:27 baclofen AdvReac Unknown Unknown Verified 05/29/25 05:27 chlorthalidone AdvReac Unknown Unknown Verified 05/29/25 05:27 codeine AdvReac Unknown Unknown Verified 05/29/25 05:27 dextromethorphan AdvReac Unknown Unknown Verified 05/29/25 05:27 gabapentin (From Neurontin) AdvReac Unknown Unknown Verified 05/29/25 05:27 hydrochlorothiazide AdvReac Unknown Unknown Verified 05/29/25 05:27 pregabalin AdvReac Unknown Dopey Verified 05/29/25 05:27 Home Medications ?Medication ?Instructions ?Recorded ?Confirmed ?Type aspirin 81 mg tablet,delayed 81 mg PO DAILY 06/23/21 05/29/25 History release amlodipine 10 mg tablet 10 mg PO DAILY 01/14/22 05/29/25 History naloxone 4 mg/actuation nasal spray 4 mg intranasal ONCE PRN 07/16/23 05/29/25 History atorvastatin 20 mg tablet 20 mg PO QPM #30 tabs 08/23/24 05/29/25 Rx mirtazapine 15 mg tablet 15 mg PO HS #30 tabs 09/01/24 05/29/25 Rx nitrofurantoin macrocrystal 100 mg 100 mg PO DAILY 12/21/24 05/29/25 History capsule risperidone 1 mg tablet 1 mg PO BID 01/29/25 05/29/25 History levetiracetam 100 mg/mL oral 500 mg PO BID 04/02/25 05/29/25 History solution acetaminophen 325 mg tablet 650 mg PO Q6H PRN 04/30/25 05/29/25 History lactulose 10 gram/15 mL oral 15 ml PO DAILY 04/30/25 05/29/25 History solution (Enulose) oxycodone 5 mg tablet 5 mg PO BID PRN 04/30/25 05/29/25 History bisacodyl 10 mg rectal suppository 10 mg CA DAILY PRN 05/01/25 05/29/25 History (Dulcolax (bisacodyl)) sennosides 8.6 mg tablet 34.4 mg PO BID PRN 05/01/25 05/29/25 History (Black-Draught Lax-Senna) Exam Narrative Exam Narrative: General: Patient appears older than stated age, cachectic, lying in bed with head elevated at 45 degree angle and patient not responding to verbal stimulation but only painful simulation. She does not appear in any distress. HEENT: Normocephalic, coarse and facial features, eyes closed but when open pupils equal and reactive light symmetrically with sclera anicteric. Oropharynx with dry mucosa and poor dentition. Neck: Supple without JVD. Back: Not examined patient supine and nonresponsive except for pain. Lungs: Decreased aeration with bronchovesicular breath sounds diffusely but no focalizing rales or rhonchi. No expiratory wheeze.. Breast: Exam deferred. Heart: Irregular rhythm with normal rate, 3/6 holosystolic murmur over apex and left border. Abdomen: Scaphoid contour, soft and nontender to palpation without focalizing guarding or rebound. No palpable hepatosplenomegaly. Genitalia/rectal: Exam deferred. Extremities: Muscle wasting diffusely with no pitting edema, cyanosis or clubbing. Fair cap refill. Skin: Pale, warm and dry. No bruising. Neuro: Glascow score 6 with patient responding to painful stimuli and moving all extremities with that stimulation, no Romberg, no tremor, motor increased tone diffusely with arms flexed at the elbows and hands partially flexed but movable with patient going back to flexed position when released. Psych: Encephalopathic or with delirium with acute situation. Not testable. Results Imaging Imaging Studies: Exam: CT Head Without Contrast Exam date and time: 05/29/2025 4:07 AM Age: 74 years old Clinical indication: Fever and other: AMS COMPARISON: MR BRAIN WO 04/02/2025 10:18 AM FINDINGS: Brain: Remote large posterior parietooccipital lobe infarct. Remote bilateral basal ganglion lacunar infarcts. There is no evidence of acute brain infarct, mass, shift of midline or parenchymal hemorrhage. Patchy periventricular white matter low attenuation present, a nonspecific finding but likely related to chronic small vessel ischemic change. Cerebral ventricles: Moderate dilatation of the ventricular system and sulci diffusely, compatible with volume loss. Paranasal sinuses: Visualized sinuses are unremarkable. No fluid levels. Mastoid air cells: Visualized mastoid air cells are well aerated. Bones: Unremarkable. No acute fracture. Soft tissues: Left forehead soft tissue swelling Vasculature: Diffuse atherosclerotic disease IMPRESSION: 1. No evidence of acute intracranial process 2. Left forehead soft tissue swelling Exam: XR Chest Exam date and time: 05/29/2025 4:17 AM Age: 74 years old Clinical indication: Fever and other: AMS COMPARISON: CR XR PORTABLE CHEST AP 04/30/2025 11:38 PM FINDINGS: Lungs: No acute consolidation Pleural spaces: Unremarkable. No pleural effusion. No pneumothorax. Heart/Mediastinum: Unremarkable. No cardiomegaly. Vasculature: Aorta is unwound Bones/joints: Lower cervical spine and right shoulder post surgical changes IMPRESSION: No acute consolidation Labs 05/29/25 03:27 05/29/25 03:27 Labs: Laboratory Results - last 24 hr 05/29/25 05/29/25 05/29/25 03:27 04:29 04:51 WBC 10.72 RBC 3.22 L Hgb 9.2 L Hct 28.4 L MCV 88 MCH 28.6 MCHC 32.4 RDW 16.5 H Plt Count 230 MPV 9.7 Immature Gran % 0.4 Neutrophils % 85.8 Lymphocytes % 6.8 Monocytes % 6.5 Eosinophils % 0.2 Basophils % 0.3 Nucleated RBC % 0.0 Absolute Neutrophils 9.20 H Absolute Lymphocytes 0.73 L Absolute Monocytes 0.70 Absolute Eosinophils 0.02 Absolute Basophils 0.03 VBG pH 7.48 H VBG pCO2 37 L VBG pO2 87 VBG HCO3 27 VBG Total CO2 25 VBG O2 Saturation 98 VBG Base Excess 4 H VBG Lactate 2.5 H* Sodium 144 Potassium 3.6 Chloride 107 Carbon Dioxide 26.5 Anion Gap 10.5 BUN 10 Creatinine 0.57 Est GFR (CKD-EPI 2020) 102.98 Glucose 99 Calcium 8.7 Magnesium 1.6 Total Bilirubin 0.5 AST 15 ALT < 7 L Alkaline Phosphatase 59 Troponin I 13 12 Total Protein 7.0 Albumin 3.3 Urine Color Yellow Urine Clarity Sl Cloudy Urine pH 6.0 Ur Specific [place] 1.020 Urine Protein Negative Urine Ketones Negative Urine Blood Trace-intact H Urine Nitrite Negative Urine Bilirubin Negative Urine Urobilinogen 0.2 Ur Leukocyte Esterase Large H Urine RBC 5-10 H Urine WBC 10-20 H Ur Epithelial Cells Few Urine Crystals Negative Urine Bacteria Few Urine Casts Negative Urine Mucus Negative Ur Culture Indicated? Yes Urine Glucose Negative Last Vital Signs Temp 36.6 C 05/29/25 05:00 Pulse 70 05/29/25 05:00 Resp 12 05/29/25 05:00 BP 145/78 H 05/29/25 05:00 Pulse Ox 95 05/29/25 05:00 VTE Prohylaxis Risk Level: Moderate/High Risk Contraindications: None Prophylaxis: Pharmacologic and Mechanical Time Spent Time spent with Patient: >75 minutes Time was spent: preparing to see the patient(eg.review tests), obtaining and/or reviewing separately otained hiistory, ordering medications,tests, procedures, indepentently interpreting results and care coordination
[2025-05-29 05:48] LABS: COVID-19 PCR Negative (Negative); RSV PCR Negative (Negative)
--- NOTE | 2025-05-29 06:59 | W.PC.ACHO ---
Registration Status: ADM IN Primary Language: Preferred Language: German ED Information & Data Chief Complaint Fever 05/29/25 02:49 Triage Note Per [facility], pt 05/29/25 02:21 more lethargic than normal and temp 99.6F, Tylenol 650mg administered at 2245 yesterday. Pt spiked fever 102.6F @0145, Tylenol 325mg/ Ibuprofen 400mg administered . Recent sepsis Hx x1 month - PNA. Neg COVID. VSS. EMS called. Medical / Surgical History (Last Reviewed 05/29/25 @ 05:45 by Pedro Archibald) Diabetes mellitus Major depression, recurrent, chronic Dementia Chronic back pain Hypertension KWAME (obstructive sleep apnea) Anemia Low magnesium level UTI (urinary tract infection) Encephalopathy Seizure Psychiatric symptoms Ambulatory dysfunction AMS (altered mental status) Rhabdomyolysis Fall Primary osteoarthritis of left knee Osteoarthritis of right knee Chronic pain syndrome Left elbow contusion Muscle weakness Tendonitis of left rotator cuff Recurrent UTI (urinary tract infection) Hypomagnesemia Primary osteoarthritis, left shoulder Left rotator cuff tear arthropathy Impacted cerumen of both ears Bilateral sensorineural hearing loss Pneumonia Left displaced femoral neck fracture (09/16/20) Fracture of left hip CVA (cerebral vascular accident) Recurrent UTI IBS (irritable bowel syndrome) Urge incontinence Chronic constipation Chronic insomnia (Last Reviewed 05/29/25 @ 05:45 by Pedro Archibald) S/P cervical spinal fusion History of total left hip replacement (09/17/20) History of back surgery Hx of cholecystectomy Most Recent Vital Signs Temperature 36.6 C 05/29/25 06:53 Temperature Source Temporal Artery Scan 05/29/25 06:53 Pulse 64 05/29/25 06:53 Pulse 55 L 05/29/25 06:31 Respiratory Rate 16 05/29/25 06:53 Blood Pressure 154/85 H 05/29/25 06:53 Blood Pressure Mean 108 05/29/25 06:53 Blood Pressure Position Supine 05/29/25 02:21 Pulse Oximetry 98 05/29/25 06:53 Oxygen Delivery Method Room Air 05/29/25 06:53 Oxygen Flow Rate 0 05/29/25 06:53 Pain Level 0 05/29/25 02:21 Allergies sulfamethoxazole (From Bactrim) Allergy (Verified 05/29/25 05:27) Diarrhea trimethoprim (From Bactrim) Allergy (Verified 05/29/25 05:27) Diarrhea morphine Adverse Reaction (Intermediate, Verified 05/29/25 05:27) Psychosis baclofen Adverse Reaction (Unknown, Verified 05/29/25 05:27) Unknown chlorthalidone Adverse Reaction (Unknown, Verified 05/29/25 05:27) Unknown codeine Adverse Reaction (Unknown, Verified 05/29/25 05:27) Unknown dextromethorphan Adverse Reaction (Unknown, Verified 05/29/25 05:27) Unknown gabapentin (From Neurontin) Adverse Reaction (Unknown, Verified 05/29/25 05:27) Unknown hydrochlorothiazide Adverse Reaction (Unknown, Verified 05/29/25 05:27) Unknown pregabalin Adverse Reaction (Unknown, Verified 05/29/25 05:27) Dopey IV IV Catheter Type [Right Peripheral IV Antecubital] IV Catheter Gauge [Right 20 Antecubital] Diet Orders Category Date Time Status Regular/Normal [DIET] Nutrition 05/29/25 Breakfast Active Diagnostics 05/29/25 05/29/25 05/29/25 Range/Units 06:48 04:58 04:51 WBC (4.4-10.8) 10^3/uL RBC (3.93-5.22) 10^6/uL Hgb (11.2-15.7) g/dL Hct (36.0-46.0) % MCV (80-95) fL MCH (27.0-33.0) pg MCHC (32.0-36.0) % RDW (11.7-14.6) % Plt Count (130-400) 10^3/uL MPV (8.0-11.0) fL Immature Gran % % Neutrophils % % Lymphocytes % % Monocytes % % Eosinophils % % Basophils % % Nucleated RBC % (0.0-0.3) % Absolute Neutrophils (1.2-6.7) 10^3/uL Absolute Lymphocytes (1.2-3.4) 10^3/uL Absolute Monocytes (0.1-0.8) 10^3/uL Absolute Eosinophils (0.0-0.7) 10^3/uL Absolute Basophils (0.0-0.2) 10^3/uL VBG pH (7.31-7.41) VBG pCO2 (41-51) mmHg VBG pO2 mmHg VBG HCO3 (23-28) mmol/L VBG Total CO2 (24-29) mmol/L VBG O2 Saturation % VBG Base Excess (-2-3) mmol/L VBG Lactate (<or=2.0) mmol/L Sodium (136-145) mmol/L Potassium (3.5-5.1) mmol/L Chloride (98-107) mmol/L Carbon Dioxide (20.0-31.0) mmol/L Anion Gap (3-11) mmol/L BUN (9-23) mg/dL Creatinine (0.55-1.02) mg/dL Est GFR (CKD-EPI 2020) (mL/min/1.73m2) Glucose (74-106) mg/dL Calcium (8.3-10.6) mg/dL Magnesium (1.6-2.6) mg/dL Total Bilirubin (0.2-1.2) mg/dL AST (<34) U/L ALT (10-49) U/L Alkaline Phosphatase (46-116) U/L Troponin I (<35) ng/L Total Protein (5.7-8.2) g/dL Albumin (3.2-5.0) g/dL Procalcitonin TSH Pending Urine Color Yellow (Yellow) Urine Clarity Sl Cloudy (Clear) Urine pH 6.0 (5-8) Ur Specific [place] 1.020 (1.005-1.025) Urine Protein Negative (Neg-Trace) mg/dL Urine Ketones Negative (Negative) mg/dL Urine Blood Trace-intact H (Negative) Urine Nitrite Negative (Negative) Urine Bilirubin Negative (Negative) Urine Urobilinogen 0.2 (Up to 0.2) mg/dL Ur Leukocyte Esterase Large H (Negative) Urine RBC 5-10 H (0-2) HPF Urine WBC 10-20 H (0-5) HPF Ur Epithelial Cells Few (Negative) HPF Urine Crystals Negative (Negative) HPF Urine Bacteria Few (Negative) HPF Urine Casts Negative (Negative) LPF Urine Mucus Negative (Negative) Ur Culture Indicated? Yes Urine Glucose Negative (Negative) mg/dL COVID-19 Source Nasopharynx SARS-CoV-2 (PCR) Negative (Negative) Influenza Type A (PCR) Negative (Negative) Influenza Type B (PCR) Negative (Negative) RSV (PCR) Negative (Negative) 05/29/25 05/29/25 Range/Units 04:29 03:27 WBC 10.72 (4.4-10.8) 10^3/uL RBC 3.22 L (3.93-5.22) 10^6/uL Hgb 9.2 L (11.2-15.7) g/dL Hct 28.4 L (36.0-46.0) % MCV 88 (80-95) fL MCH 28.6 (27.0-33.0) pg MCHC 32.4 (32.0-36.0) % RDW 16.5 H (11.7-14.6) % Plt Count 230 (130-400) 10^3/uL MPV 9.7 (8.0-11.0) fL Immature Gran % 0.4 % Neutrophils % 85.8 % Lymphocytes % 6.8 % Monocytes % 6.5 % Eosinophils % 0.2 % Basophils % 0.3 % Nucleated RBC % 0.0 (0.0-0.3) % Absolute Neutrophils 9.20 H (1.2-6.7) 10^3/uL Absolute Lymphocytes 0.73 L (1.2-3.4) 10^3/uL Absolute Monocytes 0.70 (0.1-0.8) 10^3/uL Absolute Eosinophils 0.02 (0.0-0.7) 10^3/uL Absolute Basophils 0.03 (0.0-0.2) 10^3/uL VBG pH 7.48 H (7.31-7.41) VBG pCO2 37 L (41-51) mmHg VBG pO2 87 mmHg VBG HCO3 27 (23-28) mmol/L VBG Total CO2 25 (24-29) mmol/L VBG O2 Saturation 98 % VBG Base Excess 4 H (-2-3) mmol/L VBG Lactate 2.5 H* (<or=2.0) mmol/L Sodium 144 (136-145) mmol/L Potassium 3.6 (3.5-5.1) mmol/L Chloride 107 (98-107) mmol/L Carbon Dioxide 26.5 (20.0-31.0) mmol/L Anion Gap 10.5 (3-11) mmol/L BUN 10 (9-23) mg/dL Creatinine 0.57 (0.55-1.02) mg/dL Est GFR (CKD-EPI 2020) 102.98 (mL/min/1.73m2) Glucose 99 (74-106) mg/dL Calcium 8.7 (8.3-10.6) mg/dL Magnesium 1.6 (1.6-2.6) mg/dL Total Bilirubin 0.5 (0.2-1.2) mg/dL AST 15 (<34) U/L ALT < 7 L (10-49) U/L Alkaline Phosphatase 59 (46-116) U/L Troponin I 12 13 (<35) ng/L Total Protein 7.0 (5.7-8.2) g/dL Albumin 3.3 (3.2-5.0) g/dL Procalcitonin Pending TSH Urine Color (Yellow) Urine Clarity (Clear) Urine pH (5-8) Ur Specific [place] (1.005-1.025) Urine Protein (Neg-Trace) mg/dL Urine Ketones (Negative) mg/dL Urine Blood (Negative) Urine Nitrite (Negative) Urine Bilirubin (Negative) Urine Urobilinogen (Up to 0.2) mg/dL Ur Leukocyte Esterase (Negative) Urine RBC (0-2) HPF Urine WBC (0-5) HPF Ur Epithelial Cells (Negative) HPF Urine Crystals (Negative) HPF Urine Bacteria (Negative) HPF Urine Casts (Negative) LPF Urine Mucus (Negative) Ur Culture Indicated? Urine Glucose (Negative) mg/dL COVID-19 Source SARS-CoV-2 (PCR) (Negative) Influenza Type A (PCR) (Negative) Influenza Type B (PCR) (Negative) RSV (PCR) (Negative) 05/29/25 04:51 Urine Culture - Pending Urine - Reflex from Ua 05/29/25 03:45 Blood Culture - Pending Blood 05/29/25 03:27 Blood Culture - Pending Blood [id number] Documentation Fingerstick Glucose Start: 05/29/25 02:47 Freq: .Stat Status: Complete Protocol: Activity Type Activity Date Activity User E-sign Co-sign Detail Recorded Client Recorded Date Recorded By Document 05/29/25 03:15 BKG DAEMON(3) [id number] 05/29/25 03:17 BKG DAEMON(4) Intake and Output - 24 Hour Total 05/29/25 02:10 thru 05/29/25 06:12 Intake Total 1050 Output Total 50 Balance 1000 Weight 52.5 kg Intake: IV 1050 Output: Urine 50 Other: Urine Color Light Chitra Urine Appearance [place] Risk Assessment History of Falls Previous History 05/29/25 02:32 Contributing Factors Confusion,Incontinence, 05/29/25 02:32 Medications Ambulatory Aids Uses ambulatory device + 05/29/25 02:32 Tubes/Lines None 05/29/25 02:32 Gait Evaluation W/no contributing factors 05/29/25 02:32 Cognition Cognitive impairment 05/29/25 02:32 Fall Total Score 79 05/29/25 02:32 Level of Risk Maximum Risk 05/29/25 02:32 Problems (Last Reviewed 05/29/25 @ 05:45 by Pedro Archibald) AMS (altered mental status) (Acute) Acute UTI (Acute) Attestation Statement: By documenting the first initial, last name, and credentials of the reporting nurse below, both parties acknowledge that all relevant information regarding the patient handoff has been communicated, and that all questions have been addressed to ensure continuity and safety of care. Additional Patient Information/Comments: Received pt at 0640 to room 207, admitted for AMS and UTI. VSS, on RA. Pt does not respond to staff but moves body spontaneously. Pt is not in distress, looks comfortable in bed. Bed alarm on, Call light in reach. Report Received From: PERI Beckwith
[2025-05-29 07:02] LABS: Procalcitonin < 0.10 ng/mL
[2025-05-29] MEDS: Enoxaparin 40 MG/0.4 ML SYR SC (08:52)
[2025-05-29] MEDS: levETIRAcetam Oral Solution 100 MG/ML 500 MG PO ×2 (08:52→20:35)
[2025-05-29] MEDS: Normal Saline Flush 10 ML SYR IVP ×2 (08:52→20:34)
--- NOTE | 2025-05-29 09:07 | INITIAL_ITS ---
Care Management Initial Assmt Initial Assessment Reason for Hospitalization: Uti Functional Status/Living Situation Patient Presentation: Tegan was lying in be when CM met with her. Her eyes were open but she was lying very still. When CM asked how she was doing, Tegan answered not good When asked what was wrong she said pain. And then indicated that it was her legs that hurt. CM reported the conversation to her nurse who was able to give her some Tylenol. Tegan lives at [facility]. She has a daughter Renetta and a son Amor who both live in [place], although they are about an hour away. Tegan requires assistance with ADLs and IADLs and she is essentially bed bound. Town of Residence: [facility] Resides with: Other (SNF) Significant Other/Family: Out of area Caregiver/Guardian: has a daughter Renetta and a son Amor who live about an hour away Employment Status: Retired Instrumental Activities of Daily Living (ADLs): Requires support Medications Medication Management: No Issues/Barriers identified Advance Directives Advance Directives: Do you have an Advance Directive: Y , 18:01 AD On File at [facility]: Y 09/16/20, 21:57 Date Asked 05/01/25 05/01/25, 08:10 AD Date Reviewed 05/29/25 Today, 06:21 COLST On File at [facility] Yes 08/19/24, 09:20 COLST Date Scanned 05/06/24 08/19/24, 09:20 Comment: Ashley Jackson HCA Code Status Resuscitation Status DNR/DNI Portal Pt does not currently have a portal and education provided: Yes Insurance Coverage/Financial Issues Insurance: Medicare Medicaid Care Team Visit Care Team Role Provider Type Enid Bonner APRN MD [facility] STAFF PHYSICIAN Danny Maldonado Primary Care Provider [facility] STAFF PHYSICIAN Dena Sequeira, [employer] Other Providers SPEECH LANGUAGE PATHOLOGIST Evon Yee, [employer]ER Other Providers SPEECH LANGUAGE PATHOLOGIST Barby Casillas Other Providers SPEECH LANGUAGE PATHOLOGIST Frances Drew, [employer]ER Other Providers SPEECH LANGUAGE PATHOLOGIST Michelle Mendez, [employer]ER Other Providers SPEECH LANGUAGE PATHOLOGIST Charbel Desir MD Emergency Provider [facility] STAFF PHYSICIAN Pedro Archibald Admit Provider NON-[facility] STAFF PHYSICIAN Attending Provider Discharge Potential Discharge Needs: PCP F/U Appt Anticipated Barriers to Discharge: None Identified Patient/Family Education Needs: Review discharge instructions, discuss Ask Me Three Transportation: EMS Plan: Tegan will return to [facility] for Living once she is medically stable. She will transport via EMS and continue per her plan of care. CM will follow and continue to assess for discharge needs. Social Determinants of Health Screening Will the Patient Participate in the Screening?: Unable to obtain Do you worry about having a steady place to live?: no PFSH All Active Problems (Updated 05/29/25 @ 10:26 by Enid Bonner APRN) Infectious encephalopathy (Acute) Pneumonia (Acute) Difficulty swallowing (Acute) AMS (altered mental status) (Acute) Acute dehydration (Acute) Aspiration into airway (Acute) DNR (do not resuscitate) (Acute) Delusions (Acute) Bladder mass (Acute) Cystic mass of pancreas (Acute) Abnormal finding on CT scan (Acute) Sharifa coma scale score 3-8, at arrival to emergency department (Acute) Altered mental status (Acute) Encephalopathy (Acute) Acute UTI (Acute) Altered mental status (Acute) Failure to thrive in adult (Acute) Weakness (Acute) Falls frequently (Acute) Trouble talking (Acute) Acute UTI (Acute) Acute kidney injury superimposed on CKD (Acute) Lives in half-way (Acute) Deficit in activities of daily living (ADL) (Acute) Closed fracture of distal end of radius (Acute) Closed fracture of left distal radius (Acute) Closed fracture of right distal radius (Acute) Heart murmur (Acute) Depression (Chronic) At high risk for skin breakdown (Acute) Periorbital edema (Acute) Hiatal hernia (Chronic) moderate Coronary artery calcification seen on CAT scan (Acute) Diverticula of colon (Acute) DJD (degenerative joint disease), lumbar (Acute) History of CVA (cerebrovascular accident) (Acute) remote Fracture of both wrists (Acute) Goiter (Acute) Fibromyalgia (Chronic) Chronic pain (Chronic) Movement disorder (Acute) Chronic renal insufficiency, stage III (moderate) (Acute) Medical History Diabetes mellitus Major depression, recurrent, chronic Dementia Chronic back pain Hypertension KWAME (obstructive sleep apnea) Anemia Low magnesium level UTI (urinary tract infection) Encephalopathy Seizure Psychiatric symptoms Ambulatory dysfunction AMS (altered mental status) Rhabdomyolysis Fall Primary osteoarthritis of left knee We will see the patient back in 4-1/2 months for possible repeat Synvisc 1 in her left knee would consider x-ray in her right knee if she is still significantly symptomatic Osteoarthritis of right knee Steroid injection: 04/05/2020 Has had previous viscosupplementation injections. 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) As treatment for a femoral neck fracture (DOI: 09/16/2020) History of back surgery Hx of cholecystectomy Social History Smoking/Tobacco Use Status: Never Smoking risk assessment performed?: Yes Alcohol Intake: never Drug use: Never Substance use type: does not use Housing: assisted living facility Do you feel safe at home: Yes Do you feel safe in your relationship?: Yes Additional Social history: health and rehab
--- NOTE | 2025-05-29 10:24 | W.PM.PROGNOT ---
Date of Service Date of service: 05/29/25 Time of Service: 10:25 Assessment and Plan Assessment and plan (1) AMS (altered mental status): Start date: 05/29/25 Status: Acute Assessment and plan: GCS 6 on admission improving to GCS 10 Hx of hospitalizations for infection with poor swallowing and always presenting with altered mental status d/t infectious encephalopathy UTI is a probabel source with abnormal UA - Urine Cx pending Ongoing Rocephin Chronically on Macrobid for recurrent UTIs. Blood cultures no measured fever in the ED but she had reported fever. speech pathology reevaluate swallow for modification of diet if needed. (2) Infectious encephalopathy: Status: Acute Assessment and plan: As above (3) Acute UTI: Start date: 05/29/25 Status: Acute Assessment and plan: As per point 1 (4) Chronic pain syndrome: Assessment and plan: Patient does have oxycodone on her medication list but this has not been prescribed recentlly Will not order at this time d/t point 1 and 2 (5) Depression: Status: Chronic Assessment and plan: Ongoing outpatient medical therapy when able to resume oral meds Discussed with Dr. Fuller Discharge Planning Discharge Plannin-48 hours Subjective Subjective Patient reports: no new complaints and other (ROS limited d/t infectious encephalopathic state- stating no when stimulated and localizing withdrawing from deep tactile stimuli, mumbles no); denies no bowel movement, vomiting, shortness of breath or fever Exam Narrative Exam Narrative: GCS 10 , protecting airway,no JVD, non-icteric sclera, Clears lungs, S1 S2 regular, AD is non-acute, no CVA tenderness, moves all 4 ext Objective Last Vital Signs Temp 36.6 C 05/29/25 07:50 Pulse 64 05/29/25 07:50 Resp 18 05/29/25 07:50 BP 154/88 H 05/29/25 07:50 Pulse Ox 98 05/29/25 07:50 Laboratory Results - last 24 hr 05/29/25 05/29/25 05/29/25 03:27 04:29 04:51 WBC 10.72 RBC 3.22 L Hgb 9.2 L Hct 28.4 L MCV 88 MCH 28.6 MCHC 32.4 RDW 16.5 H Plt Count 230 MPV 9.7 Immature Gran % 0.4 Neutrophils % 85.8 Lymphocytes % 6.8 Monocytes % 6.5 Eosinophils % 0.2 Basophils % 0.3 Nucleated RBC % 0.0 Absolute Neutrophils 9.20 H Absolute Lymphocytes 0.73 L Absolute Monocytes 0.70 Absolute Eosinophils 0.02 Absolute Basophils 0.03 VBG pH 7.48 H VBG pCO2 37 L VBG pO2 87 VBG HCO3 27 VBG Total CO2 25 VBG O2 Saturation 98 VBG Base Excess 4 H VBG Lactate 2.5 H* Sodium 144 Potassium 3.6 Chloride 107 Carbon Dioxide 26.5 Anion Gap 10.5 BUN 10 Creatinine 0.57 Est GFR (CKD-EPI 2020) 102.98 Glucose 99 Calcium 8.7 Magnesium 1.6 Total Bilirubin 0.5 AST 15 ALT < 7 L Alkaline Phosphatase 59 Troponin I 13 12 Total Protein 7.0 Albumin 3.3 Procalcitonin < 0.10 TSH Urine Color Yellow Urine Clarity Sl Cloudy Urine pH 6.0 Ur Specific Merrick 1.020 Urine Protein Negative Urine Ketones Negative Urine Blood Trace-intact H Urine Nitrite Negative Urine Bilirubin Negative Urine Urobilinogen 0.2 Ur Leukocyte Esterase Large H Urine RBC 5-10 H Urine WBC 10-20 H Ur Epithelial Cells Few Urine Crystals Negative Urine Bacteria Few Urine Casts Negative Urine Mucus Negative Ur Culture Indicated? Yes Urine Glucose Negative COVID-19 Source SARS-CoV-2 (PCR) Influenza Type A (PCR) Influenza Type B (PCR) RSV (PCR) 05/29/25 05/29/25 04:58 06:48 WBC RBC Hgb Hct MCV MCH MCHC RDW Plt Count MPV Immature Gran % Neutrophils % Lymphocytes % Monocytes % Eosinophils % Basophils % Nucleated RBC % Absolute Neutrophils Absolute Lymphocytes Absolute Monocytes Absolute Eosinophils Absolute Basophils VBG pH VBG pCO2 VBG pO2 VBG HCO3 VBG Total CO2 VBG O2 Saturation VBG Base Excess VBG Lactate Sodium Potassium Chloride Carbon Dioxide Anion Gap BUN Creatinine Est GFR (CKD-EPI 2020) Glucose Calcium Magnesium Total Bilirubin AST ALT Alkaline Phosphatase Troponin I Total Protein Albumin Procalcitonin TSH Cancelled Urine Color Urine Clarity Urine pH Ur Specific Merrick Urine Protein Urine Ketones Urine Blood Urine Nitrite Urine Bilirubin Urine Urobilinogen Ur Leukocyte Esterase Urine RBC Urine WBC Ur Epithelial Cells Urine Crystals Urine Bacteria Urine Casts Urine Mucus Ur Culture Indicated? Urine Glucose COVID-19 Source Nasopharynx SARS-CoV-2 (PCR) Negative Influenza Type A (PCR) Negative Influenza Type B (PCR) Negative RSV (PCR) Negative VTE Prohylaxis Risk Level: Moderate/High Risk Contraindications: None Prophylaxis: Pharmacologic and Mechanical Time Spent with Patient Time Spent with Patient: >50 minutes Time was spent: preparing to see the patient(eg.review tests), obtaining and/or reviewing separately otained hiistory, ordering medications,tests, procedures, referring, communicating with other health assisted living care manager, indepentently interpreting results, counseling the patient, care coordination and other
--- NOTE | 2025-05-29 12:48 | PHA.REVIEW2 ---
Pharmacy Admission Review Admission Clinical Review Admission Pharmacy Review: Infectious encephalopathy (Acute) AMS (altered mental status) (Acute) Acute UTI (Acute) sulfamethoxazole (From Bactrim) Allergy (Verified 05/29/25 05:27) Diarrhea trimethoprim (From Bactrim) Allergy (Verified 05/29/25 05:27) Diarrhea morphine Adverse Reaction (Intermediate, Verified 05/29/25 05:27) Psychosis baclofen Adverse Reaction (Unknown, Verified 05/29/25 05:27) Unknown chlorthalidone Adverse Reaction (Unknown, Verified 05/29/25 05:27) Unknown codeine Adverse Reaction (Unknown, Verified 05/29/25 05:27) Unknown dextromethorphan Adverse Reaction (Unknown, Verified 05/29/25 05:27) Unknown gabapentin (From Neurontin) Adverse Reaction (Unknown, Verified 05/29/25 05:27) Unknown hydrochlorothiazide Adverse Reaction (Unknown, Verified 05/29/25 05:27) Unknown pregabalin Adverse Reaction (Unknown, Verified 05/29/25 05:27) Dopey Resuscitation Status DNR/DNI Height 5 ft 5 in Weight 47 kg Pharmacy Admission Review Renal Dosing Renal Dosing: BUN 10 mg/dL (9-23) 05/29/25 03:27 Creatinine 0.57 mg/dL (0.55-1.02) 05/29/25 03:27 Medications needing adjustments: Reviewed (CrCl 34.85 mL/min) List of meds needing interventions: Current medications are okay Anticoagulation Anticoagulation: Hgb 9.2 g/dL (11.2-15.7) L 05/29/25 03:27 Hct 28.4 % (36.0-46.0) L 05/29/25 03:27 Plt Count 230 10^3/uL (130-400) 05/29/25 03:27 Creatinine 0.57 mg/dL (0.55-1.02) 05/29/25 03:27 DVT Prophylaxis: Reviewed Medications: Enoxaparin (40mg daily) Relevant Labs Relevant Labs: Sodium 144 mmol/L (136-145) 05/29/25 03:27 Potassium 3.6 mmol/L (3.5-5.1) 05/29/25 03:27 Chloride 107 mmol/L (98-107) 05/29/25 03:27 Magnesium 1.6 mg/dL (1.6-2.6) 05/29/25 03:27 Electrolytes, C-Reactive P, ESR: Reviewed Cardiac Review Cardiac Review: Troponin I 12 ng/L (<35) 05/29/25 04:29 Blood Pressure 154/88 0750 Blood Pressure 154/85 0653 Blood Pressure 135/64 0631 Blood Pressure 153/76 0601 BP, HR, EF%: Reviewed (HR WNL) List meds needing interventions: Has order for amlodipine 10mg daily QTc Review QTc: Reviewed (465 from 05/29/25) IV to PO Switch IV Medications: Reviewed (ceftriaxone) Home Meds Home Med List reviewed: Reviewed Relevent Home Meds Not ordered & why?: Narcan (PRN), nitrofurantoin (UTI prophylaxis) and oxycodone (PRN) Current Meds Current Medication Order Review: Intervened Comments: Added 2nd PRN to bisacodyl and senna orders per pharmacy protocol Pharmacy Antibiotic Review Relevant Labs: Relevant Labs 05/29/25 04:29 Procalcitonin < 0.10 WBC 10.72 10^3/uL (4.4-10.8) 05/29/25 03:27 Procalcitonin < 0.10 ng/mL 05/29/25 04:29 Temperature 36.6 C Temperature 36.6 C Temperature 36.6 C Temperature 37.4 C Pharmacy Antibiotic Activity: C/S review and Reviewed, no change Comments: Patient is on ceftriaxone, day 1, for UTI. Urine and blood cultures pending.
[2025-05-29] MEDS: Acetaminophen 325 MG TAB 650 MG PO (14:12)
[2025-05-29] MEDS: risperiDONE 1 MG TAB PO (20:34)
[2025-05-29] MEDS: Mirtazapine 15 MG TAB PO (20:35)
[2025-05-29] MEDS: Atorvastatin 20 MG TAB PO (20:35)
[2025-05-30 03:37] VITALS: BP 143/88; PULSE 70; RESP 16; TEMP 36.7; O2SAT 96
[2025-05-30] MEDS: Acetaminophen 325 MG TAB 650 MG PO (03:52)
[2025-05-30] MEDS: Normal Saline Flush 10 ML SYR IVP ×2 (05:50→10:00)
[2025-05-30] MEDS: cefTRIAXone 1 GM/50 ML BAG IVPB (05:50)
[2025-05-30] MEDS: Normal Saline 50 ML 30 ML (05:51)
[2025-05-30 07:12] LABS: HCT 24.4 % (36.0-46.0); MCH 29.7 pg (27.0-33.0); MCHC 33.2 % (32.0-36.0); MCV 89 fL (80-95); MPV 10.1 fL (8.0-11.0); Platelet Count 204 10^3/uL (130-400); RBC 2.73 10^6/uL (3.93-5.22); RDW 16.5 % (11.7-14.6); RDW-SD 54.3 fL; WBC 3.85 10^3/uL (4.4-10.8)
[2025-05-30 07:15] LABS: Magnesium 1.6 mg/dL (1.6-2.6)
[2025-05-30 07:23] LABS: ALT < 7 U/L (10-49); AST 12 U/L (<34); Albumin 2.8 g/dL (3.2-5.0); Alkaline Phosphatase 53 U/L (46-116); Anion Gap 6.7 mmol/L (3-11); BUN 11 mg/dL (9-23); Bilirubin, Total 0.4 mg/dL (0.2-1.2); CO2 28.3 mmol/L (20.0-31.0); Calcium 8.7 mg/dL (8.3-10.6); Chloride 109 mmol/L (98-107); Glucose 103 mg/dL (74-106); Potassium 3.5 mmol/L (3.5-5.1); Sodium 144 mmol/L (136-145); Total Protein 6.0 g/dL (5.7-8.2)
[2025-05-30 07:29] VITALS: BP 152/77; PULSE 55; RESP 16; TEMP 36.4; O2SAT 96
[2025-05-30 08:06] LABS: HGB 8.1 g/dL (11.2-15.7)
[2025-05-30] MEDS: Enoxaparin 40 MG/0.4 ML SYR SC (09:59)
[2025-05-30 10:59] VITALS: BP 172/82; PULSE 55; RESP 16; TEMP 36.9; O2SAT 98
[2025-05-30] MEDS: risperiDONE 1 MG TAB PO (11:04)
[2025-05-30] MEDS: amLODIPine 10 MG TAB PO (11:04)
[2025-05-30] MEDS: Aspirin E.C. 81 MG TABEC PO (11:04)
[2025-05-30] MEDS: levETIRAcetam Oral Solution 100 MG/ML 500 MG PO (11:05)
[2025-05-30] MEDS: Lactulose 20 GM/30 ML CUP 10 GM PO (11:24)
--- NOTE | 2025-05-30 13:56 | DSE_ITS ---
Date of service: 05/30/25 Time of Service: 13:56 DS: Diagnosis Discharge Diagnosis (1) AMS (altered mental status): Status: Acute (2) Infectious encephalopathy: Status: Acute (3) Acute UTI: Status: Acute (4) Chronic pain syndrome: (5) Depression: Status: Chronic Discharge Plan Disposition Patient Disposition: Residential Facility(SNF) Anticipated Discharge Date/Time: 05/30/25 13:33 Condition: Fair Discharge Details Reason For Visit: AMS, Acute UTI with Chronic UTI Admit Date/Time: 05/29/25 05:59 Admit Provider: Pedro Archibald Attending Provider: Pedro Archibald Primary Care Provider: Danny Maldonado Hospital Course Hospital Course: This is a 74-year-old female with a history of dementia, recurrent UTIs, dysphagia, and frequent hospitalizations for infection-related encephalopathy, who presented from her nursing facility with two days of worsening confusion and reported fever treated with acetaminophen and ibuprofen prior to EMS transfer. On arrival to the ED, the patient was afebrile but encephalopathic, responding only to tactile and painful stimuli. This presentation is consistent with her prior illness-related admissions. Initial evaluation demonstrated abnormal urinalysis and mildly elevated lactate (2.5), without leukocytosis or hypotension. Procalcitonin was negative, and the patient did not meet sepsis criteria. She received IV fluids and was started empirically on IV ceftriaxone for presumed urinary source. Blood cultures remained negative. Final urine culture returned negative, and antibiotics were subsequently discontinued. Imaging including CT head showed no acute intracranial process, with findings consistent with chronic infarcts and cerebral atrophy. Chest X-ray showed no acute pulmonary disease. Mental status improved toward baseline with supportive care and hydration. No evidence of active infection was identified at the time of discharge. Discharge Medications * Resume home medications except antibiotics * No antibiotics prescribed at discharge Follow-Up * Primary care provider at nursing facility Home Meds and New Rx's Prescriptions: Continued oxycodone 5 mg tablet 5 mg PO BID PRN lactulose [Enulose] 10 gram/15 mL solution 15 ml PO DAILY acetaminophen 325 mg tablet 650 mg PO Q6H PRN aspirin 81 mg tablet,delayed release (DR/EC) 81 mg PO DAILY mirtazapine 15 mg Tablet 15 mg PO HS Qty: 30 0RF amlodipine 10 mg tablet 10 mg PO DAILY naloxone 4 mg/actuation spray,non-aerosol 4 mg INTRANASAL ONCE PRN Patient Comments: ADMINISTER 1 SPRAY INTO ONE NOSTRIL A SINGLE DOSE NEEDED FOR EXCESSIVE SEDATION atorvastatin 20 mg Tablet 20 mg PO QPM Qty: 30 0RF risperidone 1 mg tablet 1 mg PO BID Patient Comments: TAKE ONE TABLET BY MOUTH AT BEDTIME nitrofurantoin macrocrystal 100 mg capsule 100 mg PO DAILY levetiracetam 100 mg/mL solution 500 mg PO BID bisacodyl [Dulcolax (bisacodyl)] 10 mg suppository 10 mg ID DAILY PRN sennosides [Black-Draught Lax-Senna] 8.6 mg tablet 34.4 mg PO BID PRN Discharge Instructions Activity:: Activity as Tolerated Equipment/Supplies:: Walker Diet:: As Tolerated Discharge Orders Discharge Orders: Discharge Order (Routine); Ordered 05/30/25 Ordered By: Keira Malave DS: Summary Time Spent with Patient providing and/or coordinating discharge services: Greater than 30 minutes Status at Discharge Functional status at discharge: bed bound Overall status at discharge: patient is back to baseline Mental Status: other Speech and Movement: slowed movement Mood: other Affect: blunted Quality:SDOH Health Related Social Needs: Health related social needs material hardship Health related social needs details pt. non verbal Exam Narrative Exam Narrative: General: Awake verbal but nonsensical, frail Neuro: Moves all extremities; left-sided weakness > right; not following commands Lungs: Clear to auscultation Heart: Regular rate and rhythm Abdomen: Soft, nondistended, non-tender Skin: Warm, pale Psych Mental Status: other Speech and Movement: slowed movement Mood: other Affect: blunted DS: Data Vitals/I&O Vitals and I&O: Vital Signs Temperature 36.9 C 05/30/25 10:59 Temperature Source Temporal Artery Scan 05/30/25 10:59 Pulse 55 L 05/30/25 10:59 Pulse Rhythm Regular 05/29/25 07:50 Pulse 55 L 05/29/25 06:31 Respiratory Rate 16 05/30/25 10:59 Respiratory Effort Normal 05/29/25 07:50 Respiratory Depth Normal 05/29/25 07:50 Blood Pressure 172/82 H 05/30/25 10:59 Blood Pressure Mean 112 05/30/25 10:59 Blood Pressure Position Supine 05/29/25 02:21 Pulse Oximetry 98 05/30/25 10:59 Oxygen Delivery Method Room Air 05/30/25 10:59 Oxygen Flow Rate 0 05/30/25 10:59 Pain Level 0 05/30/25 10:59 Comment Pt is c/o lt. hip pain. 05/30/25 03:37 Intake & Output 05/29/25 05/30/25 05/30/25 23:59 11:59 23:59 Intake Total 420 / 1470 140 / 140 Balance 420 / 1420 140 / 140 Weight 46 kg Intake: IV 20 / 1070 50 / 50 Oral 400 / 400 90 / 90 Other: Urine Color Yellow Yellow Urine Appearance Clear Urine Odor Normal Normal Comment Pt was inc. 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 heavily incontinent in bed during am care Data Completed and Pending Pending Labs at Discharge: 05/29/25 05/29/25 05/29/25 03:27 04:29 04:51 WBC 10.72 RBC 3.22 L Hgb 9.2 L Hct 28.4 L MCV 88 MCH 28.6 MCHC 32.4 RDW 16.5 H Plt Count 230 MPV 9.7 Immature Gran % 0.4 Neutrophils % 85.8 Lymphocytes % 6.8 Monocytes % 6.5 Eosinophils % 0.2 Basophils % 0.3 Nucleated RBC % 0.0 Absolute Neutrophils 9.20 H Absolute Lymphocytes 0.73 L Absolute Monocytes 0.70 Absolute Eosinophils 0.02 Absolute Basophils 0.03 VBG pH 7.48 H VBG pCO2 37 L VBG pO2 87 VBG HCO3 27 VBG Total CO2 25 VBG O2 Saturation 98 VBG Base Excess 4 H VBG Lactate 2.5 H* Sodium 144 Potassium 3.6 Chloride 107 Carbon Dioxide 26.5 Anion Gap 10.5 BUN 10 Creatinine 0.57 Est GFR (CKD-EPI 2020) 102.98 Glucose 99 Calcium 8.7 Magnesium 1.6 Total Bilirubin 0.5 AST 15 ALT < 7 L Alkaline Phosphatase 59 Troponin I 13 12 Total Protein 7.0 Albumin 3.3 Procalcitonin < 0.10 TSH Urine Color Yellow Urine Clarity Sl Cloudy Urine pH 6.0 Ur Specific [place] 1.020 Urine Protein Negative Urine Ketones Negative Urine Blood Trace-intact H Urine Nitrite Negative Urine Bilirubin Negative Urine Urobilinogen 0.2 Ur Leukocyte Esterase Large H Urine RBC 5-10 H Urine WBC 10-20 H Ur Epithelial Cells Few Urine Crystals Negative Urine Bacteria Few Urine Casts Negative Urine Mucus Negative Ur Culture Indicated? Yes Urine Glucose Negative COVID-19 Source SARS-CoV-2 (PCR) Influenza Type A (PCR) Influenza Type B (PCR) RSV (PCR) 05/29/25 05/29/25 05/29/25 04:58 06:48 11:25 WBC RBC Hgb Hct MCV MCH MCHC RDW Plt Count MPV Immature Gran % Neutrophils % Lymphocytes % Monocytes % Eosinophils % Basophils % Nucleated RBC % Absolute Neutrophils Absolute Lymphocytes Absolute Monocytes Absolute Eosinophils Absolute Basophils VBG pH VBG pCO2 VBG pO2 VBG HCO3 VBG Total CO2 VBG O2 Saturation VBG Base Excess VBG Lactate 1.3 Sodium Potassium Chloride Carbon Dioxide Anion Gap BUN Creatinine Est GFR (CKD-EPI 2020) Glucose Calcium Magnesium Total Bilirubin AST ALT Alkaline Phosphatase Troponin I Total Protein Albumin Procalcitonin TSH Cancelled Urine Color Urine Clarity Urine pH Ur Specific [place] Urine Protein Urine Ketones Urine Blood Urine Nitrite Urine Bilirubin Urine Urobilinogen Ur Leukocyte Esterase Urine RBC Urine WBC Ur Epithelial Cells Urine Crystals Urine Bacteria Urine Casts Urine Mucus Ur Culture Indicated? Urine Glucose COVID-19 Source Nasopharynx SARS-CoV-2 (PCR) Negative Influenza Type A (PCR) Negative Influenza Type B (PCR) Negative RSV (PCR) Negative 05/30/25 06:29 WBC 3.85 L RBC 2.73 L Hgb 8.1 L Hct 24.4 L MCV 89 MCH 29.7 MCHC 33.2 RDW 16.5 H Plt Count 204 MPV 10.1 Immature Gran % Neutrophils % Lymphocytes % Monocytes % Eosinophils % Basophils % Nucleated RBC % Absolute Neutrophils Absolute Lymphocytes Absolute Monocytes Absolute Eosinophils Absolute Basophils VBG pH VBG pCO2 VBG pO2 VBG HCO3 VBG Total CO2 VBG O2 Saturation VBG Base Excess VBG Lactate Sodium 144 Potassium 3.5 Chloride 109 H Carbon Dioxide 28.3 Anion Gap 6.7 BUN 11 Creatinine 0.54 L Est GFR (CKD-EPI 2020) 109.61 Glucose 103 Calcium 8.7 Magnesium 1.6 Total Bilirubin 0.4 AST 12 ALT < 7 L Alkaline Phosphatase 53 Troponin I Total Protein 6.0 Albumin 2.8 L Procalcitonin TSH Urine Color Urine Clarity Urine pH Ur Specific [place] Urine Protein Urine Ketones Urine Blood Urine Nitrite Urine Bilirubin Urine Urobilinogen Ur Leukocyte Esterase Urine RBC Urine WBC Ur Epithelial Cells Urine Crystals Urine Bacteria Urine Casts Urine Mucus Ur Culture Indicated? Urine Glucose COVID-19 Source SARS-CoV-2 (PCR) Influenza Type A (PCR) Influenza Type B (PCR) RSV (PCR) Preliminary micro results at discharge 05/29/25 04:51 Urine - Reflex from Ua Urine Culture - Preliminary Gram positive [place] 05/29/25 03:45 Blood Blood Culture - Preliminary NO GROWTH 24 HOURS 05/29/25 03:27 Blood Blood Culture - Preliminary NO GROWTH 24 HOURS PFSH All Active Problems (Updated 05/29/25 @ 10:26 by Enid Bonner APRN) Infectious encephalopathy (Acute) Pneumonia (Acute) Difficulty swallowing (Acute) AMS (altered mental status) (Acute) Acute dehydration (Acute) Aspiration into airway (Acute) DNR (do not resuscitate) (Acute) Delusions (Acute) Bladder mass (Acute) Cystic mass of pancreas (Acute) Abnormal finding on CT scan (Acute) [place] coma scale score 3-8, at arrival to emergency department (Acute) Altered mental status (Acute) Encephalopathy (Acute) Acute UTI (Acute) Altered mental status (Acute) Failure to thrive in adult (Acute) Weakness (Acute) Falls frequently (Acute) Trouble talking (Acute) Acute UTI (Acute) Acute kidney injury superimposed on CKD (Acute) Lives in penitentiary (Acute) Deficit in activities of daily living (ADL) (Acute) Closed fracture of distal end of radius (Acute) Closed fracture of left distal radius (Acute) Closed fracture of right distal radius (Acute) Heart murmur (Acute) Depression (Chronic) At high risk for skin breakdown (Acute) Periorbital edema (Acute) Hiatal hernia (Chronic) moderate Coronary artery calcification seen on CAT scan (Acute) Diverticula of colon (Acute) DJD (degenerative joint disease), lumbar (Acute) History of CVA (cerebrovascular accident) (Acute) remote Fracture of both wrists (Acute) Goiter (Acute) Fibromyalgia (Chronic) Chronic pain (Chronic) Movement disorder (Acute) Chronic renal insufficiency, stage III (moderate) (Acute) Medical History Diabetes mellitus Major depression, recurrent, chronic Dementia Chronic back pain Hypertension KWAME (obstructive sleep apnea) Anemia Low magnesium level UTI (urinary tract infection) Encephalopathy Seizure Psychiatric symptoms Ambulatory dysfunction AMS (altered mental status) Rhabdomyolysis Fall Primary osteoarthritis of left knee We will see the patient back in 4-1/2 months for possible repeat Synvisc 1 in her left knee would consider x-ray in her right knee if she is still significantly symptomatic Osteoarthritis of right knee Steroid injection: 04/05/2020 Has had previous viscosupplementation injections. 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) As treatment for a femoral neck fracture (DOI: 09/16/2020) History of back surgery Hx of cholecystectomy Social History Smoking/Tobacco Use Status: Never Smoking risk assessment performed?: Yes Alcohol Intake: never Drug use: Never Substance use type: does not use Housing: assisted living facility Do you feel safe at home: Yes Do you feel safe in your relationship?: Yes Additional Social history: health and rehab Time Spent with Patient Time Spent with Patient: 45-69 minutes Time was spent: preparing to see the patient(eg.review tests), ordering medications,tests, procedures, referring, communicating with other health child care development specialist, indepentently interpreting results, counseling the patient and care coordination
--- NOTE | 2025-05-30 14:00 | PDOC.CMDIS ---
Date of service: 05/30/25 Time of Service: 14:00 LACE Index Scoring Tool Questions: Length of Stay (in days): 1 Was the patient admitted via the E.D.?: Yes Comorbidities: Cerebrovascular Disease, Diabetes w/o Complication, Dementia and Liver or Renal Disease E.D. Visits: 8 Answers: Total Score: 13 Risk of Readmission: High Risk Care Management Discharge Plan Reason for Hospitalization: Uti, AMS Discharge Plan: Tegan will return to [facility] where she resides. She will transport via EMS and continue per her plan of care. Patient/Family Education Needs: Review discharge instructions, discuss Ask Me Three Services Needed at Discharge: Halfway Facility and Transportation SDOH Health Related Social Needs: Health related social needs material hardship Health related social needs details pt. non verbal
== END 2025-05-30 14:13 | disposition skilled nursing facility (03) | DRG 690 ==
LOC: ER 06:21 → MS 06:45
PROVIDERS: Admitting Provider Family Medicine; Emergency Provider Emergency Medicine; PCP Family Medicine; Responsible Provider Nurse Practitioner Family; Visit Provider Family Medicine
DX: N39.0 Urinary tract infection, site not specified (principal); G89.4 Chronic pain syndrome; G93.49 Other encephalopathy; R13.10 Dysphagia, unspecified; Z66 Do not resuscitate; Z68.1 Body mass index [BMI] 19.9 or less, adult; F33.9 Major depressive disorder, recurrent, unspecified; E87.3 Alkalosis; R62.7 Adult failure to thrive; K44.9 Diaphragmatic hernia without obstruction or gangrene; I25.10 Atherosclerotic heart disease of native coronary artery without angina pectoris; K57.30 Diverticulosis of large intestine without perforation or abscess without bleeding; N18.30 Chronic kidney disease, stage 3 unspecified; M47.816 Spondylosis without myelopathy or radiculopathy, lumbar region; Z86.73 Personal history of transient ischemic attack (TIA), and cerebral infarction without residual deficits; R29.6 Repeated falls; E11.22 Type 2 diabetes mellitus with diabetic chronic kidney disease; I12.9 Hypertensive chronic kidney disease with stage 1 through stage 4 chronic kidney disease, or unspecified chronic kidney disease; G47.33 Obstructive sleep apnea (adult) (pediatric); D64.9 Anemia, unspecified; E83.42 Hypomagnesemia; K58.1 Irritable bowel syndrome with constipation; Z96.642 Presence of left artificial hip joint; Z87.440 Personal history of urinary (tract) infections; Z79.891 Long term (current) use of opiate analgesic
CPT/HCPCS: 00123; 36415; 36416; 51701; 80053; 82805; 82962; 84145; 85027; 87040; 87637; 93005; 96361; 96365; 99285; J1650; 70450; 71046; 81003; 81015; 83605; 83735; 84443; 84484; 85025; 87086; 93010; 99223; 99239; J0696